=== PATIENT | female | born 1995 | race Caucasian/White ===

== ENCOUNTER 2023-10-18 19:53 | Emergency (ER) | payer BC, SELFPAY ==
[2023-10-18 20:01] VITALS: BP 144/105; PULSE 100; RESP 18; TEMP 36.8; O2SAT 100; BMI 34.4
--- NOTE | 2023-10-18 20:09 | XR_ITS ---
[facility] [place] [id number] Patient Name: REGINALD SMALL MRN: [id number] date: 1995 Sex: F Assigned Patient Location: ER Current Patient Location: ER Accession/Order Number: [id number] Exam Date: 10/18/2023 20:18 Report Date: 10/18/2023 20:50 At the request of: NANO AMADO Procedure: XR ankle RT min 3V EXAM: XR ankle RT min 3V TECHNIQUE: AP, lateral and oblique views right ankle HISTORY: injury COMPARISON: None. FINDINGS: There is a tiny chip fracture off the posterior aspect of the distal tibia on the lateral view only. Abnormal lucency of the lateral aspect of the talar dome suspicious for osteochondral injury. Ankle mortise is aligned. Soft tissue swelling is seen laterally. There are no arthritic changes. XR/XR ankle RT min 3V IMPRESSION: Small chip fracture of the dorsum of the distal tibia, seen only on the lateral view. Probable acute osteochondral injury of the lateral aspect of the talar dome. Electronically authenticated by: ELÍAS MUNIZ Date: 10/18/2023 20:50
--- NOTE | 2023-10-18 21:24 | ED_ITS ---
HPI - Extremity Injury (Lower) General Chief Complaint: Extremity Injury, Lower Stated Complaint: LOWER EXTREMITY INJURY Time Seen by Provider: 10/18/23 20:09 Source: patient Mode of arrival: walk-in Limitations: no limitations History of Present Illness HPI Narrative: Patient is a 28-year-old female who presents to the emergency department for right ankle injury. She states she was playing volleyball when she jumped and landed on another player twisting her right ankle. She complains of most of her pain in the anterior right ankle but though it is diffusely swollen. No concern for . No medications taken prior to arrival. Related Data Home Medications Medication Instructions Recorded Confirmed insulin NPH isoph U-100 human 100 unit subcut 10/18/23 unit/mL subcutaneous suspension (Novolin N NPH U-100 Insulin isophane) metformin 1,000 mg tablet mg 10/18/23 pen needle, diabetic 31 gauge x 10/18/23 10/18/2310/29 (BD Ultra-Fine Mini Pen Needle) Previous Rx's Medication Instructions Recorded hydrocodone 5 mg-acetaminophen 325 1 tab PO Q6H PRN pain 3 days #12 10/18/23 mg tablet tabs ketorolac 10 mg tablet 10 mg PO TID PRN pain #10 tabs 10/18/23 Allergies Allergy/AdvReac Type Severity Reaction Status Date / Time No Known Drug Allergies Allergy Verified 10/18/23 20:05 Review of Systems ROS Constitutional Denies: fever or chills Ears, nose, mouth, and throat Denies: throat pain or nasal congestion Cardiovascular Denies: chest pain Respiratory Denies: shortness of breath or cough Gastrointestinal Denies: nausea or vomiting Musculoskeletal Reports: extremity pain, extremity swelling, joint pain and joint swelling; Denies: back pain or neck pain Integumentary/Breast Denies: rash Neurological Denies: headache Hematologic/Lymphatic Denies: easy bruising or easy bleeding [facility] Social History Smoking status: Never smoker Exam Narrative Exam Narrative: Gen.: Awake, alert, in no distress Head: Normocephalic, atraumatic ENT: Moist mucous membranes Respiratory: No respiratory distress Extremities: Moves extremities equally, Diffuse swelling and tenderness of the right ankle with no bony point tenderness or obvious deformity. 2+ DP pulses bilaterally. Psych: Normal mood and affect Neuro: No focal neuro deficit Skin: Warm, dry, intact Constitutional Vital Signs, click to edit/add: Last Vital Signs Temp 98.2 F 10/18/23 20:01 Pulse 100 H 10/18/23 20:01 Resp 18 10/18/23 20:01 BP 144/105 H 10/18/23 20:01 Pulse Ox 100 10/18/23 20:01 Course Vital Signs Vital signs: Vital Signs Temperature 98.2 F 10/18/23 20:01 Pulse Rate 100 H 10/18/23 20:01 Respiratory Rate 18 10/18/23 20:01 Blood Pressure 144/105 H 10/18/23 20:01 Pulse Oximetry 100 10/18/23 20:01 Temperature 98.2 F 10/18/23 20:01 Pulse Rate 100 H 10/18/23 20:01 Respiratory Rate 18 10/18/23 20:01 Blood Pressure 144/105 H 10/18/23 20:01 Pulse Oximetry 100 10/18/23 20:01 MDM - Extremity Injury (Lower) MDM Narrative Medical decision making narrative: X-rays read by the radiologist with an avulsion fracture noted over the posterior tibia as well as a suspected avulsion of the talus. Patient was placed in an Thomas wrap, Aircast and remains neurovascularly intact. Rest, ice, elevate. Crutches given for home. Short course of analgesics and NSAIDs given, patient encouraged to follow-up with podiatry and return to the ER if symptoms change or worsen Medical Records Attestation: I reviewed the patient's medical records. Imaging Data XR ankle: Attestation: I have reviewed the pertinent imaging results. Radiologist's impression: ITS Impressions Ankle X-Ray 10/18/23 20:09 IMPRESSION: Small chip fracture of the dorsum of the distal tibia, seen only on the lateral view. Probable acute osteochondral injury of the lateral aspect of the talar dome. Electronically authenticated by: ELÍAS MUNIZ Date: 10/18/2023 20:50 Discharge Plan Discharge Chief Complaint: Extremity Injury, Lower Clinical Impression: Avulsion fracture of right ankle Patient Disposition: Home, Self-Care Time of Disposition Decision: 21:20 Condition: Good Prescriptions / Home Meds: New hydrocodone-acetaminophen 5-325 mg tablet 1 tab PO Q6H PRN (Reason: pain) 3 Days Qty: 12 0RF Rx Instructions: DX: M25.571 ketorolac 10 mg tablet 10 mg PO TID PRN (Reason: pain) Qty: 10 0RF No Action metformin 1,000 mg tablet Novolin N NPH U-100 Insulin 100 unit/mL suspension SUBCUT (DME) pen needle, diabetic [BD Ultra-Fine Mini Pen Needle] 31 gauge x 3/16 needle MISCELLANEOUS Instructions: Avulsion Fracture (ED) Referrals: Physician,Non-Staff, [Primary Care Provider] - 1 week Felipe Almonte DPM [Physician] - As soon as possible Discharge Date/Time: 10/18/23 22:14 Stand Alone Forms: Portal Instructions
[2023-10-18] MEDS: OXYCODONE HCL/ACETAMINOPHEN 5MG/325MG 1 TAB PO (21:52)
== END 2023-10-18 22:14 | disposition home or self-care (01) ==
PROVIDERS: Emergency Provider Emergency Medicine
DX: S82.301A Unspecified fracture of lower end of right tibia, initial encounter for closed fracture (principal); X50.1XXA Overexertion from prolonged static or awkward postures, initial encounter; Y93.68 Activity, volleyball (beach) (court); Z79.4 Long term (current) use of insulin; Z79.84 Long term (current) use of oral hypoglycemic drugs
CPT/HCPCS: 73610; 99284

== ENCOUNTER 2024-12-29 06:55 | Outpatient (OUT) | payer BC, SELFPAY ==
--- OUTSIDE RECORDS SUMMARY | 2024-12-29 06:58 | XMS_ITS | CCD ---
Author Organization [facility] Care Team Providers Care Gunnery/Ordnance Officer Name Role Phone Unavailable Primary Care Provider Unavailabl e FLORO, DARÍO Referring Unavailable Floro CNM, Darío L Unavailable Unallocated , Noms Provider Primary Care Provi mart PetAwilda carr DO Unavailable Unallocated , Noms Provider Primary Care Provi mart Floro HAIR OR BEAUTY SALON ASSISTANT-CNM, Darío Primary Care Provider [phone]( [phone] SVETLANA JACK Attending Unavailable FLORO, DARÍO Referring Unavailable SHAUNA DENNY Attending Unavailable Unavailable Primary Care Provider Unavailabl e SVETLANA JACK Attending Unavailable FLORO, DARÍO Referring Unavailable FLORO, DARÍO Primary Care Unavailable SHAUNA DENNY Attending Unavailable ARIELLA ROBERTO Attending Unavailable FLORO, DARÍO Referring Unavailable FLORO, DARÍO Primary Care Unavailable CLARKE MODI Attending Unavailable FLORO, DARÍO Referring Unavailable FLORO, DARÍO Primary Care Unavailable CLARKE MODI Attending Unavailable FLORO, DARÍO Referring Unavailable FLORO, DARÍO Primary Care Unavailable AYE SAUCEDO Attending Unavailable SVETLANA JACK Referring Unavailable FLORO, DARÍO Primary Care Unavailable FLORO, DARÍO Referring Unavailable FLORO, DARÍO Primary Care Unavailable FLORO, DARÍO Referring Unavailable FLORO, DARÍO Primary Care Unavailable TRICIA ROWLAND Attending Unavailable AYE SAUCEDO Referring Unavailable FLORO, DARÍO Primary Care Unavailable FLORO, DARÍO Mccoy Attending Unavailable AWILDA DELATORRE Attending Unavailable FLORO, DARÍO L Attending Unavailable FLORO, DARÍO L Attending Unavailable PETZNICK, AWILDA M Attending Unavailable DARÍO BANUELOS Attending Unavailable DARÍO BANUELOS Attending Unavailable JUAN RAMON, AWILDA M Attending Unavailable AWILDA DELATORRE M Attending Unavailable DARÍO BANUELOS Referring Unavailable DARÍO BANUELOS Attending Unavailable DARÍO BANUELOS Referring Unavailable HENRY SAM Attending Unavailable DARÍO BANUELOS Referring Unavailable DARÍO BANUELOS Attending Unavailable DARÍO BANUELOS Attending Unavailable JUAN RAMON, AWILDA M Attending Unavailable JUAN RAMON, AWILDA M Referring Unavailable Medications Current Medications Medication Drug Class(es) Dates Sig (Normalized) Sig (Original) acetaminophen 500 mg oral tablet (20 sources) take 1 tablet by mouth every six hours as needed acetaminophen (Tylenol) 500 MG tablet Take 500 mg by mouth every 6 (six) hours if needed Active aspirin 81 mg delayed release oral tablet (20 sources) Platelet Aggregation Inhibitor, Nonsteroidal Anti-inflammatory Drug Start: 08-14-2024 take 1 tablet by mouth in the morning aspirin 81 MG EC tablet Take 81 mg by mouth in the morning. 08/14/2024 Active blood-glucose sensor (DEXCOM G7 SENSOR) device (15 sources) Start: 08-14-2024 blood-glucose sensor (DEXCOM G7 SENSOR) device Use to monitor blood glucose 5 each 11 08/14/2024 Active calcium carb/mag/vitamin D3 (CORAL CALCIUM ORAL) (12 sources) End: 09-19-2024 take 1 tablet by mouth in the morning calcium carb/mag/vitamin D3 (CORAL CALCIUM ORAL) Take 1 tablet by mouth in the morning. 09/19/2024 Discontinued take 1 tablet by mouth in the mo rning calcium carb/mag/vitamin D3 (CORAL CALCIUM ORAL) Take 1 tablet by mouth in the morning. Active Continuous Glucose Sensor (Dexcom G7 Sensor) misc (20 sources) Start: 08-14-2024 Continuous Glu cose Sensor (Dexcom G7 Sensor) misc USE DIRECTED to test BLOOD SUGAR change EVERY TEN days 08/14/2024 Active Docosahexaenoate (15 sources) take 1 tablet by mouth once daily docosahexaenoic acid (DHA ORAL) Take 1 tablet by mouth once daily. Active 3 ml insulin isophane, human 100 unt/ml pen injector (20 sources) Start: 10-09-2024 End: 12-07-2024 insulin NPH, Isophane, (HumuLIN N KWIKPEN) 100 UNIT/ML injection 10 units am and 17 units pm 15 mL 3 12/07/2024 Active Start: 09-22-2024 End: 10-09-2024 insulin NPH, Isophane, (Humu REBEKAH N KWIKPEN) 100 UNIT/ML injection 15 units am and 20 units pm 15 mL 3 09/29/2024 10/09/2024 Discontinued (Dose adjustment) Start: 09-01-2024 insulin NPH, I sophane, (HumuLIN N KWIKPEN) 100 UNIT/ML injection 15 units am and 30 units pm 15 mL 3 09/01/2024 Active Start: 09-01-2024 insulin NPH, I sophane, (HumuLIN N KWIKPEN) 100 UNIT/ML injection 15 units am and 30 units pm 15 mL 3 09/01/2024 Active Start: 05-29-2024 End: 09-01-2024 insulin NPH isoph U-100 tiffany n (HumuLIN N KWIKPEN) 100 unit/mL (3 mL) insulin pen Inject 15 Units in the morning and 34 Units in the evening 15 mL 6 08/23/2024 Active Start: 02-28-2024 insulin NPH, I sophane, (NovoLIN N FlexPen) 100 UNIT/ML injection Indications: 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 mellitus without complication, without long-term current use of insulin ([facility]) 15 units in the am and 25 units at night 15 mL 3 02/28/2024 Active End: 08-14-2024 inject 0.15 mL by subcutaneous injection once daily in the morning insulin NPH (HumuLIN N,NovoLIN N) 100 unit/mL injection Inject 0.15 mL (15 Units total) under the skin in the morning and 0.15 mL (15 Units total) in the evening. Inject with meals. 15 Units in the morning and 25 Units in the evening daily . 08/14/2024 Discontinued (Dose adjustment) 3 ml insulin lispro 100 unt/ml pen injector (20 sources) Insulin Analog Start: 12-07-2024 insulin lispro (HumaLOG KWIKPEN) 100 UNIT/ML injection Indications: with type 2 diabetes mellitus in second trimester 1-2 units breakfast, 5-12 units lunch/dinner (max daily 50 units) 15 mL 3 12/07/2024 Active Start: 10-09-2024 End: 12-07-2024 insulin lispro (HumaLOG KWIK PEN) 100 UNIT/ML injection Indications: with type 2 diabetes mellitus in second trimester 5 units small meals and 8 units large meals (max daily 50 units) 15 mL 3 10/09/2024 12/07/2024 Discontinued (Dose adjustment) Start: 09-22-2024 End: 10-09-2024 insulin lispro (HumaLOG KWIK PEN) 100 UNIT/ML injection Indications: with type 2 diabetes mellitus in second trimester 4 units small meals and 6 units large meals (max daily 50 units) 15 mL 3 09/22/2024 10/09/2024 Discontinued (Dose adjustment) insulin lispro ( HumaLOG) 100 unit/mL injection Inject under the skin 3 (three) times a day before meals. As directed Active letrozole 2.5 mg oral tablet (1 source) Aromatase Inhibitor Start: 05-02-2024 End: 05-07-2024 letrozole (Femara) 2.5 MG chemo tablet Indications: Female infertility Take 1 tablet (2.5 mg total) by mouth Daily for 5 days. TAKE 2 TABLETS BY MOUTH on days 3-7 OF menstrual cycle 5 tablet 05/02/2024 05/07/2024 Active magnesium carbonate (15 sources) take 1 tablet by mouth once daily MAGNESIUM CARBONATE ORAL Take 1 tablet by mouth once daily. Active medroxyPROGESTERone acetate 10 mg oral tablet (15 sources) Progestin Start: 05-02-2024 End: 08-23-2024 take 1 tablet by mouth once daily, then take 1 tablet by mouth once daily, then take 1 tablet by mouth once daily medroxyPROGESTERone (Provera) 10 MG tablet Indications: Irregular periods Take 1 tablet (10 mg) by mouth Daily Take 1 tablet by mouth daily for 7 days beginning on day 1 of menstrual cycle. Begin on the first day of bleeding. . 7 tablet 05/02/2024 Active metFORMIN hydrochloride 1000 mg oral tablet (20 sources) Biguanide Start: 02-28-2024 metFORMIN (Glucophage) 1000 MG tablet Indications: 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 mellitus without complication, without long-term current use of insulin 1/2 tablet in the am and 1 tablet in the evening 180 tablet 3 02/28/2024 Active Start: 09-28-2016 End: 09-19-2024 take 2 tablets by mouth once daily metFORMIN XR (GLUCOPHAGE-XR) 500 mg 24 hr tablet Take 2 tablets by mouth daily. 0 09/28/2016 09/19/2024 Discontinued take 0.5 tablet by m outh once daily at breakfast metFORMIN (GLUCOPHAGE) 1000 mg tablet Take 0.5 tablets (500 mg total) by mouth daily with breakfast. 500 mg (1/2 tablet) with breakfast and 1000 mg with supper Active metFORMIN (GLUCO PHAGE) 1000 mg tablet Take by mouth daily with breakfast. 500 mg (1/2 tablet) with breakfast and 1000 mg with supper Active 25/iron fum/folic/dha (-1 ORAL) (12 sources) End: 09-19-2024 take 2 tablets by mouth once daily 25/iron fum/folic/dha (-1 ORAL) Take 2 tablets by mouth once daily. 09/19/2024 Discontinued take 2 tablets by mouth once kiki ly 25/iron fum/folic/dha (-1 ORAL) Take 2 tablets by mouth once daily. Active Completed/Discontinued Medications Medication Drug Class(es) Dates Sig (Normalized) Sig (Original) clotrimazole 10 mg/ml topical cream (3 sources) Azole Antifungal End: 08-23-2024 clotrimazole (LOTRIMIN) 1 % cream Apply 1 application topically 2 (two) times a day. FOR 7-10 DAYS 08/23/2024 Discontinued (Therapy completed) Ethinyl Estradiol / Levonorgestrel (3 sources) Progestin, Estrogen, Progestin-containi ng Intrauterine Device Start: 01-08-2017 End: 08-23-2024 take 1 tablet by mouth once daily LEVORA-28 0.15-0.03 mg per tablet Indications: Dysmenorrhea TAKE 1 TABLET BY MOUTH DAILY 84 tablet 0 01/08/2017 08/23/2024 Discontinued (Therapy completed) Start: 01-08-2017 take 1 tablet by luke th once daily LEVORA-28 0.15-0.03 mg per tablet Indications: Dysmenorrhea TAKE 1 TABLET BY MOUTH DAILY 84 tablet 0 01/08/2017 Active Problems Active Problems Problem Classification Problem Date Documented Date Episodic/Chronic Conduction disorders (20 sources) Long QT syndrome; Translations: [Long QT syndrome] Onset: 12-29-2016 Resolved: 11-09-2024 04-16-2023 Chronic Diabetes mellitus with complications (2 sources) 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 mellitus; Translations: [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 mellitus with hyperosmolarity without nonketotic hyperglycemic-hyperos molar coma (NKHHC)] 08-03-2024 Chronic Diabetes mellitus without complication (20 sources) 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 mellitus without complication; Translations: [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 mellitus without complications] Onset: 04-16-2023 06-01-2024 Chronic Diabetes or abnormal glucose tolerance complicating ; childbirth; or the puerperium (20 sources) Pre-existing type 2 diabetes mellitus in ; Translations: [Pre-existing type 2 diabetes mellitus, in , first trimester] Onset: 08-14-2024 08-14-2024 Chronic Diabetes or abnormal glucose tolerance complicating ; childbirth; or the puerperium (2 sources) Gestational diabetes mellitus, class A>2< ; Translations: [Gestational diabetes mellitus in , insulin controlled] 11-15-2024 Episodic Disorders of lipid metabolism (20 sources) Mixed hyperlipidemia; Translations: [Mixed hyperlipidemia] Onset: 04-16-2023 04-16-2023 Chronic Other complications of (2 sources) Finding related to ; Translations: [ related conditions, unspecified, third trimester] 11-15-2024 Episodic Other endocrine disorders (20 sources) Polycystic ovary syndrome; Translations: [Polycystic ovarian syndrome] Onset: 04-16-2023 04-16-2023 Chronic Other nutritional; endocrine; and metabolic disorders (20 sources) Insulin resistance; Translations: [Insulin resistance] Onset: 04-16-2023 04-16-2023 Chronic Other and delivery including normal (10 sources) First trimester ; Translations: [Encounter for supervision of normal first , first trimester] 08-03-2024 Episodic Other screening for suspected conditions (not mental disorders or infectious disease) (3 sources) Encounter for other screening follow-up; Translations: [Patient encounter status] Onset: 10-31-2024 12-26-2024 Episodic Residual codes; unclassified (2 sources) H/O: heart disorder; Translations: [Personal history of other specified conditions] Onset: 11-09-2024 11-09-2024 Episodic Unclassified (1 source) T2DM Onset: 08-14-2024 Unclassified (1 source) New Patient Onset: 09-19-2024 Past or Other Problems Problem Classification Problem Date Documented Da te Episodic/Chronic Diabetes mellitus without complication (20 sources) Abnormal glucose level; Translations: [Other abnormal glucose] Onset: 12-29-2016 04-16-2023 Episodic Mood disorders (16 sources) Mood disorders Onset: 03-03-2017 03-03-2017 Viral infection (20 sources) Plantar wart of right foot; Translations: [Plantar wart] Onset: 04-16-2023 04-16-2023 Episodic Results Test Name Value Interpretation Reference Range Facility Urinalysis macro (dipstick) panel (U)on 12-25-2024 Bilirubin, UA Negative Negative - 4(70) +++ mg/dL [facility] Blood, UA Negative Negative - 50 Skinny/mcL [facility] Clarity, UA Clear [facility] re Color, UA Yellow [facility] Glucose, UA Negative Negative - 2000(110) ++++ mg/dL [facility] Interpretation and review of laboratory results Normal [facility] Ketones, UA Negative Negative - 160(16) ++++ mg/dL [facility] Leukocytes, UA Positive Negative - 500+++ Cal/mcL [facility] Comment on above: small Nitrite, UA Negative Negative - Positive [facility] pH, UA 6.5 5 - 9 [facility] e Protein, UA Negative Negative - 2000(20) ++++ mg/dL [facility] Spec Grav, UA 1.02 1 - 1.03 [facility] Urobilinogen, UA 1.0 0.2 - 12 mg/dL [facility] US OB FOLLOW UP TRANSABDOMIN AL APPROACHon 12-11-2024 US OB FOLLOW UP TRANSABDOMINAL APPROACH EXAM: US OB FOLLOW UP TRANSABDOMINAL APPROACH HISTORY: Morbid obesity. DAVY 02/19/2025. COMPARISON: U/S OB 10/31/2024, 10/03/2024 TECHNIQUE: Two-dimensional transabdominal grayscale ultrasound imaging of the pelvis was performed. FINDINGS: Gestation: Single Presentation: Cephalic Cardiac Activity: 145 beats per minute Placental Location: Posterior with no sonographic abnormalities identified. Distance from Placental Tip to Cervix: Not measured, appears visually adequate Cervical Length: 5.1 cm Amniotic Fluid Index: 12.6 cm MEASUREMENTS: BPD: 7.9 cm EGA: 31 weeks 4 days HC: 28.0 cm EGA: 30 weeks 4 days AC: 25.8 cm EGA: 29 weeks 6 days FL: 5.8 cm EGA: 30 weeks 3 days HC/AC Ratio: 1.09 (0.99 - 1.21) Gestational age by today's ultrasound is 30 weeks 4 day. Estimated Weight: 1539 grams ( 3 lb 6 oz). Weight Percentile for gestational age: 46 % IMPRESSION: 1. Single, live intrauterine gestation 30 weeks, 0 days by LMP. Today's ultrasound measurements correlate with a gestational age of 30 weeks 4 days. Interpreted by: Electronically signed by YULI MCCARTHY II, MD, PHD at 12-Dec-2024 07:13:14 PM [facility] [place] [facility] Normal Not Available POCT EKGOrdered By: Abby Andino on 11-08-2024 [facility] HbA1c (Bld) [Mass fraction]o n 10-09-2024 Interpretation and review of laboratory results [facility] count[facility] 10-09-2024 HbA1c (Bld) [Mass fraction] 5.7 % [facility] POCT EKGon 09-19-2024 [facility] No Panel Informationon 08-14 [facility] Chlamydia/GC by PCR ThinPrep fluidon 07-11-2024 Chlamydia Dna(Pcr) Negative [facility] Gonorrhoeae Dna(Pcr) Negative [facility] [place] Drug Screen, Urineon 024 Amphetamine/Methamph etamine Negative [facility] Opiate Quantitative Urine Negative [facility] HIV 1&2 AB/AG Screen (P24 AG )on 07-10-2024 HIV 1&2 AB/AG Non-Reactive [facility] Hemoglobin A1con 07-10-2024 HbA1c (Bld) [Mass fraction] 6.4 % Abnormal 4.0 - 6.0 % [facility] Interpretation and review of laboratory results Abnormal [facility] No Panel Informationon 07-10 [facility] Type and screenon 07-10-2024 Abo/Rh(D) Positive [facility] US OB < 14 WEEKS EARLYon US OB < 14 WEEKS EARLY TITLE OF EXAM: OB Ultrasound: REASON FOR EXAM: Viability. TECHNIQUE: Grayscale imaging is performed. Measurements: heart rate: 129 bpm Sac: 2.2 cm CRL: 0.9 cm GA for sonogram: 6.9 wk (06.3-07.4) DAVY: 02/20/2025 Maternal Anatomy Uterus: Size: L x H x W 8.2 x 5.6 x 4.5 cm L x H x W (cm) Vol (cc) Ovaries: Right: 3.6 x 2.2 x 2.1 8.7 Left: 4.1 x 3.0 x 2.8 18.0 CLINICAL SUMMARY: Early intrauterine is seen with positive cardiac activity. heart is observed with a heart rate of 129 BPM. Yolk sac is identified. Dictated and transcribed 07/04/24/dpd This report has been electronically signed and approved by the interpreting radiologist. Normal Not Available HbA1c (Bld) [Mass fraction]o n 06-08-2024 Interpretation and review of laboratory results Normal [facility] [employer] [facility] Laboratory - Hematology and Cell countson 06-08-2024 HbA1c (Bld) [Mass fraction] 6.2 % [facility] Remicalm Cytology Cervical or vaginal smear or scraping studyOrdered By: Christen Nettles on 02-10-2023 [facility] Hemoglobin A1Con 07-05-2019 HbA1c (Bld) [Mass fraction] 5.9 % Normal 4.8-5.9 [facility] Comment on above: Performed By: #### G LYHGB, LIPR #### [facility] [address] [place] [address] Curtain Inspector: Ruslan Fernando MD #### INSU #### [facility] [employer] [address] [place] [id number] Curtain Inspector: Marv Guzman MD [facility] [address] [place] [address] Curtain Inspector: Ruslan Fernando MD HbA1c (Bld) [Mass fraction] 123 mg/dL Normal [facility] Comment on above: Result Comment: The ADA and AACC recommend providing the estimated average glucose result to permit better patient understanding of their HBA1c result. Performed By: #### G LYHGB, LIPR #### [address] [place], [place] [phone] Curtain Inspector: Ruslan Fernando MD #### INSU #### [address] [id number] Curtain Inspector: Marv Guzman MD [address] [place], [place] [phone] Curtain Inspector: Ruslan Fernando MD Glucose [Mass/Vol] 123 mg/dL [place], [place] Comment on above: The ADA and AACC rec ommend providing the estimated average glucose result to permit better patient understanding of their HBA1c result. HbA1c (Bld) [Mass fraction] 5.9 % 4.8 - 5.9 % [place], [place] Insulinon 07-05-2019 Insulin 36.2 mU/L [facility] Comment on above: Performed By: #### G LYHGB, LIPR #### [address] [place], [place] [phone] Curtain Inspector: Ruslan Fernando MD #### INSU #### [address] [id number] Curtain Inspector: Marv Guzman MD [address] [place], [place] [address] Curtain Inspector: Ruslan Fernando MD Reference Range [facility] Comment on above: Result Comment: Fast in.6-24.9 30 min: 20-112 60 min: 29-88 90 min: 26-84 120 min: 22-79 Performed By: #### G LYHGB, LIPR #### [address] [place], [place] [phone] Curtain Inspector: Ruslan Fernando MD #### INSU #### [address] [place] [address] Curtain Inspector: Marv Guzman MD [facility] [address] [place] [address] Curtain Inspector: Ruslan Fernando MD Collection Info. 0830 Normal [facility] Comment on above: Performed By: #### G LYHGB, LIPR #### [facility] [address] [place] [address] Curtain Inspector: Ruslan Fernando MD #### INSU #### [facility] [address] [place] [address] Curtain Inspector: Marv Guzman MD [facility] [address] [place] [address] Curtain Inspector: Ruslan Fernando MD Insulin, totalon 07-05-2019 INR Coag (Bld) [Relative time] [place], [place] Comment on above: Fastin.6-24.9 30 min: 20-112 60 min: 29-88 90 min: 26-84 120 min: 22-79 Insulin 36.2 mU/L [place] Insulin Comment [address] [place], [place] Lipid Panelon 07-05-2019 Cholesterol [Mass/Vol] 204 mg/dL High <200 [place], [place] Comment on above: Cholesterol Guidelines: <200 Desirable 200-240 Borderline >240 Undesirable Cholesterol in HDL [Mass/Vol] 35 mg/dL Low >40 [place] Comment on above: HDL Guidelines: <40 Undesirable 40-59 Borderline >59 Desirable Cholesterol in LDL [Mass/Vol] 102 mg/dL 0 - 130 mg/dL [place] Comment on above: LDL Guidelines: <100 Desirable 100-129 Near to/above Desirable 130-159 Borderline >159 Undesirable Direct (measured) LDL and calculated LDL are not interchangeable tests. Cholesterol in VLDL [Mass/Vol] NOT REPORTED High 1 - 30 mg/dL [place] Cholesterol.total/Ch olesterol in HDL [Mass ratio] 5.8 {ratio} High <5 [place] Interpretation and review of laboratory results Abnormal [place] Triglyceride [Mass/Vol] 336 mg/dL High <150 [place] Comment on above: Triglyceride Guidelines: <150 Desirable 150-199 Borderline 200-499 High >499 Very high Based on AHA Guidelines for fasting triglyceride, May 2012. Lipid Profileon 07-05-2019 Cholesterol [Mass/Vol] 204 mg/dL High <200 [facility] Comment on above: Result Comment: Cholesterol Guidelines: <200 Desirable 200-240 Borderline >240 Undesirable Performed By: #### G LYHGB, LIPR #### [facility] [address] [place] [address] [address] [place], [place] [phone] Curtain Inspector: Ruslan Fernando MD #### INSU #### [facility] [address], [place] [phone] Curtain Inspector: Marv Guzman MD [address] [place], [place] [phone] Curtain Inspector: Ruslan Fernando MD Cholesterol in HDL [Mass/Vol] 35 mg/dL Low >40 [facility] Comment on above: Result Comment: HDL Guidelines: <40 Undesirable 40-59 Borderline >59 Desirable Performed By: #### G LYHGAmanda, LIPR #### [address] [place], [place] [phone] Curtain Inspector: Ruslan Fernando MD #### INSU #### [facility] [address], [place] [phone] Curtain Inspector: Marv Guzman MD [address] [place], [place] [phone] Curtain Inspector: Ruslan Fernando MD Cholesterol in LDL [Mass/Vol] 102 mg/dL Normal 0-130 [facility] Comment on above: Result Comment: LDL Guidelines: <100 Desirable 100-129 Near to/above Desirable 130-159 Borderline >159 Undesirable Direct (measured) LDL and calculated LDL are not interchangeable tests. Performed By: #### G LYHGB, LIPR #### [facility] [address] [place] [address] [place] [address] Curtain Inspector: Ruslan Fernando MD #### INSU #### [facility] [address] [place] [address] Curtain Inspector: Marv Guzman MD [facility] [address] [place] [address] [place] [address] Curtain Inspector: Ruslan Fernando MD Cholesterol.total/Ch olesterol in HDL [Mass ratio] 5.8 {ratio} High <5 [facility] Comment on above: Performed By: #### G LYHGB, LIPR #### [address] [place] [address] Curtain Inspector: Ruslan Fernando MD #### INSU #### [facility] [address] [place] [address] Curtain Inspector: Marv Guzman MD [address] [place] [address] Curtain Inspector: Ruslan Fernando MD Triglyceride [Mass/Vol] 336 mg/dL High <150 [facility] Comment on above: Result Comment: Triglyceride Guidelines: <150 Desirable 150-199 Borderline 200-499 High >499 Very high Based on AHA Guidelines for fasting triglyceride, May 2012. Performed By: #### G LYHGB, LIPR #### [address] [place] [address] Curtain Inspector: Ruslan Fernando MD #### INSU #### [facility] [address] [place] [address] Curtain Inspector: Marv Guzman MD [address] [place] [address] Curtain Inspector: Ruslan Fernando MD Cholesterol in VLDL [Mass/Vol] NOT REPORTED Normal 1-30 [facility] Comment on above: Performed By: #### G LYHGB, LIPR #### [facility] [address] [place] [address] [place] [address] Curtain Inspector: Ruslan Fernando MD #### INSU #### [facility] [address], [place] [phone] Curtain Inspector: Marv Guzman MD [facility] [address] [place] [address] Curtain Inspector: Ruslan Fernando MD Vital Signs Date Time Vital Sign Value Performing Clinician Facility 12-26-2024 16:02-0400 Body mass index (BMI) [Ratio] 34.15 kg/m2 Darío Floro CNM Work Phone: [facility] 12-26-2024 16:02-0400 Body weight 107.96 kg Darío Floro CNM Work Phone: [facility] 12-26-2024 16:02-0400 Diastolic blood pressure 74 mm[Hg] Darío Floro CNM Work Phone: [facility] 12-26-2024 16:02-0400 Systolic blood pressure 116 mm[Hg] Darío Floro CNM Work Phone: [facility] 12-11-2024 15:56-0400 Diastolic blood pressure 70 mm[Hg] Darío Floro CNM Work Phone: [facility] 12-11-2024 15:56-0400 Systolic blood pressure 120 mm[Hg] Darío Floro CNM Work Phone: [facility] 12-07-2024 08:17-0400 Body height 177.8 cm Awilda Petznick DO Work Phone: [facility] 12-07-2024 08:17-0400 Body temperature 97.9 [degF] Awilda Petznick DO Work Phone: [facility] 12-07-2024 08:17-0400 Diastolic blood pressure 66 mm[Hg] Awilda Petznick DO Work Phone: [facility] 12-07-2024 08:17-0400 Heart rate 86 /min Awilda Petznick DO Work Phone: [facility] 12-07-2024 08:17-0400 SaO2% (BldA) [Mass fraction] 98 % Awilda Delatorre DO Work Phone: [facility] 12-07-2024 08:17-0400 Systolic blood pressure 126 mm[Hg] Awilda Delatorre DO Work Phone: [facility] 11-15-2024 16:31-0400 Body mass index (BMI) [Ratio] 34.44 kg/m2 Darío Banuelos CNM Work Phone: [facility] 11-15-2024 16:31-0400 Body weight 108.86 kg Darío Banuelos CNM Work Phone: [facility] 11-15-2024 16:31-0400 Diastolic blood pressure 78 mm[Hg] Darío Banuelos CNM Work Phone: [facility] 11-15-2024 16:31-0400 Systolic blood pressure 120 mm[Hg] Darío Banuelos CNM Work Phone: [facility] 11-08-2024 09:17-0400 Body height 177.8 cm Tricia Rowland MD Work Phone: [facility] 11-08-2024 09:17-0400 Body mass index (BMI) [Ratio] 34.06 kg/m2 Tricia Rowland MD Work Phone: [facility] 11-08-2024 09:17-0400 Body weight 107.68 kg Tricia Rowland MD Work Phone: [facility] 11-08-2024 09:17-0400 Diastolic blood pressure 64 mm[Hg] Tricia Rowland MD Work Phone: [facility] 11-08-2024 09:17-0400 Heart rate 80 /min Tricia Rowland MD Work Phone: [facility] 11-08-2024 09:17-0400 SaO2% (BldA) [Mass fraction] 98 % Tricia Rowland MD Work Phone: [facility] 11-08-2024 09:17-0400 Systolic blood pressure 128 mm[Hg] Tricia Rowland MD Work Phone: [facility] 10-09-2024 15:40-0500 Body height 177.8 cm Awilda Petznick DO Work Phone: [facility] 10-09-2024 15:40-0500 Body mass index (BMI) [Ratio] 34.01 kg/m2 Awilda Petznick DO Work Phone: [facility] 10-09-2024 15:40-0500 Body temperature 98.2 [degF] Awilda Petznick DO Work Phone: [facility] 10-09-2024 15:40-0500 Body weight 107.5 kg Awilda Petznick DO Work Phone: [facility] 10-09-2024 15:40-0500 Diastolic blood pressure 66 mm[Hg] Awilda Petznick DO Work Phone: [facility] 10-09-2024 15:40-0500 Heart rate 98 /min Awilda Petznick DO Work Phone: [facility] 10-09-2024 15:40-0500 SaO2% (BldA) [Mass fraction] 98 % Awilda Petznick DO Work Phone: [facility] 10-09-2024 15:40-0500 Systolic blood pressure 128 mm[Hg] Awilda Petznick DO Work Phone: [facility] 09-28-2024 16:17-0500 Body mass index (BMI) [Ratio] 34.58 kg/m2 Darío Díazo CNM Work Phone: [facility] 09-28-2024 16:17-0500 Body weight 109.32 kg Darío Díazo CNM Work Phone: [facility] 09-28-2024 16:17-0500 Diastolic blood pressure 70 mm[Hg] Darío Sheebao CNM Work Phone: [facility] 09-28-2024 16:17-0500 Systolic blood pressure 120 mm[Hg] Darío Banuelos CNM Work Phone: [facility] 09-19-2024 10:31-0500 Body height 177.8 cm Aye Saucedo MD Work Phone: [facility] 09-19-2024 10:31-0500 Body mass index (BMI) [Ratio] 34.15 kg/m2 Aye Saucedo MD Work Phone: [facility] 09-19-2024 10:31-0500 Body weight 107.96 kg Aye Saucedo MD Work Phone: [facility] 09-19-2024 10:31-0500 Diastolic blood pressure 76 mm[Hg] Aye Saucedo MD Work Phone: [facility] 09-19-2024 10:31-0500 Heart rate 85 /min Aye Saucedo MD Work Phone: [facility] 09-19-2024 10:31-0500 SaO2% (BldA) [Mass fraction] 98 % Aye Saucedo MD Work Phone: [facility] 09-19-2024 10:31-0500 Systolic blood pressure 122 mm[Hg] Aye Saucedo MD Work Phone: [facility] 09-11-2024 08:12-0500 Body mass index (BMI) [Ratio] 34.29 kg/m2 Clarke Modi MD Work Phone: [facility] 09-11-2024 08:12-0500 Body weight 108.41 kg Clarke Modi MD Work Phone: [facility] 09-11-2024 08:12-0500 Diastolic blood pressure 81 mm[Hg] Clarke Modi MD Work Phone: [facility] 09-11-2024 08:12-0500 Heart rate 80 /min Clarke Modi MD Work Phone: [facility] 09-11-2024 08:12-0500 Systolic blood pressure 122 mm[Hg] Clarke Modi MD Work Phone: [facility] 09-01-2024 08:54-0500 Body height 177.8 cm Awilda Petznick DO Work Phone: [facility] 09-01-2024 08:54-0500 Body mass index (BMI) [Ratio] 34.44 kg/m2 Awilda Petznick DO Work Phone: [facility] 09-01-2024 08:54-0500 Body temperature 98.49 [degF] Awilda Petznick DO Work Phone: [facility] 09-01-2024 08:54-0500 Body weight 108.86 kg Awilda Petznick DO Work Phone: [facility] 09-01-2024 08:54-0500 Diastolic blood pressure 72 mm[Hg] Awilda Petznick DO Work Phone: [facility] 09-01-2024 08:54-0500 Heart rate 92 /min Awilda Petznick DO Work Phone: [facility] 09-01-2024 08:54-0500 SaO2% (BldA) [Mass fraction] 97 % Awilda Petznick DO Work Phone: [facility] 09-01-2024 08:54-0500 Systolic blood pressure 126 mm[Hg] Awilda Petznick DO Work Phone: [facility] 08-14-2024 10:40-0500 Body height 177.8 cm Svetlana Lavoy PA-C Work Phone: [facility] 08-14-2024 10:40-0500 Body mass index (BMI) [Ratio] 34.72 kg/m2 Svetlana Lavoy PA-C Work Phone: [facility] 08-14-2024 10:40-0500 Body weight 109.77 kg Svetlana Lavoy PA-C Work Phone: [facility] 08-14-2024 10:40-0500 Diastolic blood pressure 68 mm[Hg] Svetlana Lavoy PA-C Work Phone: [facility] 08-14-2024 10:40-0500 Heart rate 86 /min Svetlana Lavoy PA-C Work Phone: [facility] 08-14-2024 10:40-0500 Systolic blood pressure 134 mm[Hg] Svetlana Lavoy PA-C Work Phone: [facility] 08-14-2024 09:42-0500 Body height 177.8 cm Shauna Denny RN Work Phone: [facility] 08-14-2024 09:41-0500 Body mass index (BMI) [Ratio] 34.72 kg/m2 Shauna Denny RN Work Phone: [facility] 08-14-2024 09:41-0500 Body weight 109.77 kg Shauna Denny RN Work Phone: [facility] 08-03-2024 08:36-0500 Body mass index (BMI) [Ratio] 35.3 kg/m2 Darío Floro CNM Work Phone: [facility] 08-03-2024 08:36-0500 Body weight 111.58 kg Darío Floro CNM Work Phone: [facility] 08-03-2024 08:36-0500 Diastolic blood pressure 80 mm[Hg] Darío Floro CNM Work Phone: [facility] 08-03-2024 08:36-0500 Systolic blood pressure 122 mm[Hg] Darío Floro CNM Work Phone: [facility] 07-10-2024 15:43-0500 Body mass index (BMI) [Ratio] 35.3 kg/m2 Darío Floro CNM Work Phone: [facility] 07-10-2024 15:43-0500 Body weight 111.58 kg Darío Floro CNM Work Phone: [facility] 07-10-2024 15:43-0500 Diastolic blood pressure 76 mm[Hg] Darío Banuelos CNM Work Phone: [facility] 07-10-2024 15:43-0500 Systolic blood pressure 120 mm[Hg] Darío Banuelos CNM Work Phone: [facility] 06-08-2024 14:04-0400 Body height 177.8 cm Awilda Petznick DO Work Phone: [facility] 06-08-2024 14:04-0400 Body mass index (BMI) [Ratio] 35.01 kg/m2 Awilda Petznick DO Work Phone: [facility] 06-08-2024 14:04-0400 Body temperature 98.49 [degF] Awilda Petznick DO Work Phone: [facility] 06-08-2024 14:04-0400 Body weight 110.68 kg Awilda Petznick DO Work Phone: [facility] 06-08-2024 14:04-0400 Diastolic blood pressure 72 mm[Hg] Awilda Petznick DO Work Phone: [facility] 06-08-2024 14:04-0400 Heart rate 87 /min Awilda Petznick DO Work Phone: [facility] 06-08-2024 14:04-0400 SaO2% (BldA) [Mass fraction] 98 % Awilda Petznick DO Work Phone: [facility] 06-08-2024 14:04-0400 Systolic blood pressure 138 mm[Hg] Awilda Petznick DO Work Phone: [facility] Healthcare Encounters Encounter Date Encounter Type Care Provider Facility Start: 12-26-2024 ambulatory DARÍO Gonzalez ilfidel Start: 12-26-2024 End: 12-26-2024 Subsequent care visit Darío Banuelos CNM Work Phone: [facility] Comment on above: with type 2 diabetes mellitus in third trimester (Primary Dx); Screening for iron deficiency anemia; 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 mellitus treated with insulin ([facility] Start: 12-26-2024 End: 12-26-2024 Bamboo flowsheet Darío Nadine Díazo CNM Work Phone: [facility] Start: 12-26-2024 End: 12-26-2024 Bamboo flowsheet Darío L Floro CNM Work Phone: [facility] Start: 12-25-2024 End: 12-25-2024 Bamboo flowsheet Henry Flaco DO Work Phone: [facility] Start: 12-25-2024 End: 12-25-2024 Bamboo flowsheet Henry Flaco DO Work Phone: [facility] Start: 12-25-2024 End: 12-25-2024 ambulatory HENRY FLACO Not Available Start: 12-25-2024 End: 12-25-2024 flow sheet Henry Flaco DO Work Phone: [facility] Comment on above: with type 2 diabetes mellitus in third trimester Start: 12-11-2024 End: 12-11-2024 Subsequent care visit Darío Díazo CNM Work Phone: [facility] Comment on above: with type 2 diabetes mellitus in third trimester Start: 12-11-2024 End: 12-11-2024 ambulatory DARÍO L FLORO Not Available Start: 12-11-2024 End: 12-11-2024 Bamboo flowsheet Darío L Floro CNM Work Phone: [facility] Start: 12-11-2024 End: 12-11-2024 Bamboo flowsheet Darío L Floro CNM Work Phone: [facility] Start: 12-07-2024 End: 12-07-2024 Office outpatient visit 15 minutes Awilda Delatorre DO Work Phone: [facility] Comment on above: with type 2 diabetes mellitus in third trimester (Primary Dx); with type 2 diabetes mellitus in second trimester Start: 12-07-2024 End: 12-07-2024 ambulatory AWILDA Guy JUAN RAMON Not Available Start: 11-15-2024 End: 11-15-2024 Subsequent care visit Darío L Floro CNM Work Phone: [facility] Comment on above: Encounter for prenat al care of first , second trimester (Primary Dx); related condition in third trimester; Gestational diabetes mellitus (GDM) requiring insulin Start: 11-15-2024 End: 11-15-2024 ambulatory DARÍO L FLORO Not Available Start: 11-15-2024 End: 11-15-2024 Bamboo flowsheet Darío L Floro CNM Work Phone: [facility] Start: 11-15-2024 End: 11-15-2024 Bamboo flowsheet Darío L Floro CNM Work Phone: [facility] Start: 11-08-2024 End: 11-08-2024 Office outpatient new 30 minutes Aye Saucedo MD Work Phone: [facility] Comment on above: Long Q-T syndrome (P rimary Dx); Hx of prolonged Q-T interval on ECG Start: 11-08-2024 End: 11-08-2024 ambulatory [facility] Start: 11-07-2024 End: 11-07-2024 Telephone encounter [facility] Start: 10-31-2024 End: 10-31-[address] [facility] Start: 10-18-2024 End: 10-18-2024 ambulatory DARÍO L FLORO Not Available Start: 10-18-2024 End: 10-18-2024 Bamboo flowsheet Darío L Floro CNM Work Phone: [facility] Start: 10-18-2024 End: 10-18-2024 Bamboo flowsheet Darío L Floro CNM Work Phone: [facility] Start: 10-10-2024 End: 10-10-2024 Office outpatient visit 25 minutes Clarke Modi MD Work Phone: [facility] Comment on above: Pre-existing type 2 diabetes mellitus during in second trimester (Primary Dx) Start: 10-10-2024 End: 10-10-2024 [facility] Start: 10-09-2024 End: 10-09-2024 Office outpatient visit 15 minutes Awilda M Juan Ramon DO Work Phone: [phone] Comment on above: with type 2 diabetes mellitus in second trimester (Primary Dx); 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 mellitus without complication, without long-term current use of insulin ([facility] Start: 10-09-2024 End: 10-09-2024 ambulatory AWILDA DELATORRE Not Available Start: 10-03-2024 End: 10-03-2024 ambulatory [facility] Start: 09-28-2024 End: 09-28-2024 Subsequent care visit Darío Banuelos CNM Work Phone: [facility] Comment on above: Encounter for prenat al care of first , second trimester (Primary Dx); 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 mellitus without complication, without long-term current use of insulin ([facility] Start: 09-28-2024 End: 09-28-2024 ambulatory DARÍO Nadine DÍAZO Not Available Start: 09-28-2024 End: 09-28-2024 Bamboo flowsheet Darío L Sheebao CNM Work Phone: [facility] Start: 09-28-2024 End: 09-28-2024 Bamboo flowsheet Darío L Floro CNM Work Phone: [facility] Start: 09-19-2024 End: 09-19-2024 Office consultation new/estab patient 40 min Jacque Schneider MD Work Phone: [facility] Comment on above: Long Q-T syndrome (P rimary Dx); 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 mellitus without complication, unspecified whether terminal manager insulin use ([facility] Start: 09-19-2024 End: 09-19-[address] [facility] Start: 09-18-2024 End: 09-18-2024 Telephone encounter Abby Andino CMA [facility] Start: 09-14-2024 End: 09-14-2024 Chart abstracting Jacque Schneider MD Work Phone: [facility] Start: 09-11-2024 End: 09-11-2024 Telephone encounter Yudelka Randall RN [facility] Start: 09-11-2024 End: 09-11-2024 Office outpatient visit 25 minutes Clarke Modi MD Work Phone: [facility] Comment on above: Pre-existing type 2 diabetes mellitus during in second trimester (Primary Dx); Long Q-T syndrome Start: 09-11-2024 End: 09-11-2024 ambulatory [facility] Start: 09-05-2024 End: 09-05-2024 Telephone encounter Sparkle Castillo RN [facility] Start: 09-01-2024 End: 09-01-2024 Office outpatient visit 25 minutes Awilda Delatorre DO Work Phone: [facility] [phone] Comment on above: with type 2 diabetes mellitus in second trimester (Primary Dx) Start: 09-01-2024 End: 09-01-2024 ambulatory AWILDA DELATORRE Not Available Start: 08-28-2024 End: 08-28-2024 Telephone encounter Donna Posadas RN [facility] Start: 08-23-2024 End: 08-23-2024 Office outpatient visit 25 minutes Ariella PIERRE Work Phone: [facility] Comment on above: 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 guerrero itus without complication, unspecified whether shelter insulin use ([facility] (Primary Dx) Start: 08-23-2024 End: 08-23-2024 ambulatory ARIELLA ROBERTO [facility] Start: 08-14-2024 End: 08-14-2024 Office outpatient new 45 minutes Svetlana Jack PA-C Work Phone: [facility] Comment on above: with type 2 diabetes mellitus in second trimester (Primary Dx); Long Q-T syndrome Start: 08-14-2024 End: 08-14-2024 ambulatory Shauna Denny RN Work Phone: [facility] Comment on above: Pre-existing type 2 diabetes mellitus in in first trimester with type 2 diabetes mellitus in second trimester (Primary Dx) Start: 08-03-2024 End: 08-03-2024 Bamboo flowsheet Darío L Floro CNM Work Phone: [facility] Start: 08-03-2024 End: 08-03-2024 Bamboo flowsheet Darío L Floro CNM Work Phone: [facility] Start: 08-03-2024 End: 08-03-2024 Subsequent care visit Darío L Floro CNM Work Phone: [facility] Comment on above: Encounter for prenat al care of first , first trimester (Primary Dx); 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 mellitus with hyperosmolarity without coma, without long-term current use of insulin ([facility] Start: 08-03-2024 End: 08-03-2024 ambulatory DARÍO L FLORO Not Available Start: 07-25-2024 End: 07-25-2024 Chart abstracting Scanning Provider External [facility] Start: 07-10-2024 End: 07-10-2024 Subsequent care visit Darío L Floro CNM Work Phone: [facility] Comment on above: Encounter for prenat al care of first , first trimester (Primary Dx) Start: 07-10-2024 End: 07-10-2024 ambulatory DARÍO L FLORO Not Available Start: 07-10-2024 End: 07-10-2024 Bamboo flowsheet Darío Banuelos CNM Work Phone: [facility] Start: 07-10-2024 End: 07-10-2024 Bamboo flowsheet Darío Banuelos CNM Work Phone: [facility] Start: 07-03-2024 End: 07-03-2024 ambulatory DARÍO BANUELOS Not Available Start: 06-08-2024 End: 06-08-2024 Office outpatient visit 15 minutes Awilda Delatorre DO Work Phone: [facility] Comment on above: 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 guerrero itus without complication, without long- term current use of insulin ([facility] Start: 06-08-2024 End: 06-08-2024 ambulatory AWILDA DELATORRE Not Available Start: 05-03-2024 End: 05-03-2024 Telephone encounter Darío Banuelos CNM Work Phone: [facility] Start: 02-28-2024 End: 02-28-2024 ambulatory AWILDA DELATORRE Not Available Start: 01-04-2024 End: 01-04-2024 ambulatory DARÍO BANUELOS Not Available Start: 07-05-2019 End: 07-06-2019 Patient encounter procedure [facility] Start: 07-05-2019 End: 07-05-2019 Subsequent hospital visit by physician DERRICK Laboratory Procedures Date Procedure Procedure Detail Performing Clinician Start: 12-25-2024 Urnls dip stick/tabl et rgnt non-auto w/o micrscp Henry Flaco DO Work Phone: Start: 11-08-2024 Ecg routine ecg w/le ast 12 lds w/i&r Tricia Rowland MD Work Phone: Start: 10-09-2024 Hemoglobin glycosyla carola a1c Awilda Delatorre DO Work Phone: Start: 09-19-2024 Ecg routine ecg w/le ast 12 lds w/i&r Aye Saucedo MD Work Phone: Start: 08-14-2024 AMB REFERRAL TO [facility] - DIABETES EDUCATION Darío Banuelos HAIR OR BEAUTY SALON ASSISTANT-CN Work Phone: Start: 08-14-2024 AMB REFERRAL TO [facility] - NUTRITION EDUCATION Darío Banuelos HAIR OR BEAUTY SALON ASSISTANT-CN Work Phone: Start: 07-11-2024 CHLAMYDIA/GC BY PCR THINPREP FLUID Not In System Ref Prov Start: 07-11-2024 Drug scrn 1+ class nonchromo Not In System Ref Prov Start: 07-10-2024 Antibody screen Scannin g External Start: 07-10-2024 Hemoglobin glycosyla carola a1c Scanning Provider External Start: 07-10-2024 HIV 1&2 AB/AG SCREEN (P24 AG) Not In System Ref Prov Start: 07-10-2024 TYPE AND SCREEN Not In System Ref Prov Start: 06-08-2024 Hemoglobin glycosyla carola a1c Awilda Delatorre DO Work Phone: Start: 02-10-2023 Cytp cerv/vag auto t hin layer prep mnl screen Darío Banuelos CNM Work Phone: Start: 07-05-2019 Assay of insulin total DARÍO DÍAZO Start: 07-05-2019 Hemoglobin glycosyla carola a1c DARÍO DÍAZO Start: 07-05-2019 Lipid panel DARÍO FL SHAYNE Start: 07-05-2019 Assay of insulin total Darío Banuelos Work Phone: Start: 07-05-2019 Hemoglobin glycosyla carola a1c Darío Díazo Work Phone: Start: 07-05-2019 Lipid panel Darío Fl shayne Work Phone: Plan of Treatment Date Care Activity Detail Author Start: 11-08-2025 Adult BMI Screening Adult BMI Screen ing [facility] Start: 11-08-2025 Tobacco Screening Tobacco Screening [facility] Start: 09-19-2025 Adult BMI Screening Adult BMI Screen ing [facility] Start: 09-19-2025 Tobacco Screening Tobacco Screening [facility] Start: 09-11-2025 Adult BMI Screening Adult BMI Screen ing [facility] Start: 09-11-2025 Tobacco Screening Tobacco Screening [facility] Start: 08-30-2025 Urine screening for protein Diabetes: Urine Protein Screening [facility] Start: 08-14-2025 Adult BMI Screening Adult BMI Screen ing [facility] Start: 08-14-2025 Tobacco Screening Tobacco Screening [facility] Start: 08-14-2025 End: 08-14-2025 US MFM with or without consult US MFM with or without consult Imaging Routine with type 2 diabetes mellitus in second trimester Expected: 08/14/2025 (Approximate), Expires: 08/14/2025 [facility] Work Phone: Comment on above: Expected: 08/14/2025 (Approximate), Expires: 08/14/2025 Start: 04-16-2025 Influenza vaccination Influenz a Vaccine (Season Ended) [facility] Start: 02-15-2025 End: 02-15-2025 Professional / ancillary services management 02/15/2025 4:00 PM EDT Ancillary Procedure [facility] [address] [id number] [facility] Start: 02-13-2025 End: 02-13-2025 Patient encounter procedure 02/13/2025 4:00 PM EDT Routine [facility] [address] [place] [phone] Darío Banuelos CNM [address] [place] [address] [facility] Start: 02-12-2025 End: 02-12-2025 Patient encounter procedure 02/12/2025 4:30 PM EDT Routine [facility] [address] [place] [address] Darío Banuelos, CNM [address] [place] [address] [facility] Start: 02-09-2025 End: 02-09-2025 Professional / ancillary services management 02/09/2025 4:00 PM EDT Ancillary Procedure [facility] [address] [facility] [address] [place] [address] [facility] Start: 02-06-2025 End: 02-06-2025 Patient encounter procedure [facility] Start: 02-02-2025 End: 02-02-2025 Professional / ancillary services management 02/02/2025 4:00 PM EDT Ancillary Procedure [facility] [address] [facility] [address] [place] [address] [facility] Start: 01-30-2025 End: 01-30-2025 Patient encounter procedure 01/30/2025 4:00 PM EDT Routine [facility] [address] [facility] [place] [address] Darío Banuelos, CNM [address] [place] [address] [facility] Start: 01-29-2025 End: 01-29-2025 Patient encounter procedure 01/29/2025 4:30 PM EDT Routine [facility] [address] [facility] [place] [address] Darío Banuelos, CNM [address] [place] [address] [facility] Start: 01-26-2025 End: 01-26-2025 Professional / ancillary services management 01/26/2025 4:00 PM EDT Ancillary Procedure [facility] [address] [facility] [address] [place] [address] [facility] Start: 01-23-2025 End: 01-23-2025 Patient encounter procedure 01/23/2025 4:00 PM EDT Routine [facility] [address] [facility] [place] [address] Darío Banuelos, CNM [address] [place] [address] [facility] Start: 01-22-2025 End: 01-22-2025 Patient encounter procedure 01/22/2025 4:30 PM EDT Routine [facility] [address] [facility] [place] [phone] Darío Banuelos, CNM [address] [place] [address] [facility] Start: 01-19-2025 End: 01-19-2025 Professional / ancillary services management 01/19/2025 9:15 AM EDT Ancillary Procedure [facility] [address] [place] [address] [facility] Start: 01-18-2025 End: 01-18-2025 Patient encounter procedure 01/18/2025 8:30 AM EDT Office Visit [facility] [address] [place] [address] Awilda Delatorre, [address] [place] [address] [facility] Start: 01-16-2025 End: 01-16-2025 Patient encounter procedure 01/16/2025 4:00 PM EDT Routine [facility] [address] [facility] [place] [phone] Darío Banuelos, CNM [address] [place] [address] [facility] Start: 01-15-2025 End: 01-15-2025 Patient encounter procedure 01/15/2025 4:30 PM EDT Routine [facility] [address] [facility] [place] [phone] Darío Banuelos, CATHIEM [address] [place] [address] [facility] Start: 01-12-2025 End: 01-12-2025 Professional / ancillary services management 01/12/2025 4:00 PM EDT Ancillary Procedure [facility] [address] [facility] [address] [place] [address] [facility] Start: 01-09-2025 End: 01-09-2025 Patient encounter procedure 01/09/2025 4:00 PM EDT Routine [facility] OB [address] [facility] [place] [address] Darío Banuelos, CATHIEM [address] [place] [address] [facility] Start: 01-06-2025 Hemoglobin A1c measurement Diabetes: Hemoglobin A1C [facility] Start: 01-05-2025 End: 01-05-2025 Professional / ancillary services management 01/05/2025 9:15 AM EDT Ancillary Procedure [facility] [address] [place] [phone] [facility] Start: 01-03-2025 Urine screening for protein Diabetes: Urine Protein Screening [facility] Start: 01-02-2025 End: 01-02-2025 Patient encounter procedure 01/02/2025 4:00 PM EDT Routine [facility] [address] [facility] [place] [address] Darío Banuelos, CNM [address] [place] [address] [facility] Start: 01-01-2025 End: 01-01-2025 Patient encounter procedure 01/01/2025 4:30 PM EDT Routine [facility] [address] [facility] [place] [address] Darío Banuelos, CATHIEM [address] [place] [address] [facility] Start: 12-29-2024 End: 12-29-2024 Professional / ancillary services management 12/29/2024 4:00 PM EDT Ancillary Procedure [facility] [address] [phone] [facility] Start: 12-26-2024 End: 12-26-2024 Patient encounter procedure 12/26/2024 4:00 PM EDT Routine [facility] [address] [place] [phone] Darío Banuelos, CNM [address] [place], [place] [phone] [facility] Start: 12-26-2024 End: 12-26-2025 CBC panel - Blood by Automated count CBC Lab Routine Screening for iron deficiency anemia Expected: 12/26/2024 (Approximate), Expires: 12/26/2025 [facility] Work Phone: Comment on above: Expected: 12/26/2024 (Approximate), Expires: 12/26/2025 Start: 12-25-2024 End: 06-27-2025 US biophysical profile w non stress test US biophysical profile w non stress test Imaging Routine with type 2 diabetes mellitus in third trimester Expected: 12/25/2024 (Approximate), Expires: 06/27/2025 [facility] Work Phone: Comment on above: Expected: 12/25/2024 (Approximate), Expires: 06/27/2025 Start: 12-11-2024 End: 12-11-2024 Professional / ancillary services management 12/11/2024 4:30 PM EDT Ancillary Procedure [facility] [address] [phone] [facility] Start: 12-11-2024 End: 12-11-2024 Patient encounter procedure [facility] Comment on above: Arrived Start: 12-11-2024 End: 12-11-2025 US biophysical profile wo non stress testing US biophysical profile wo non stress testing Imaging Routine with type 2 diabetes mellitus in third trimester Expected: 12/11/2024, Expires: 12/11/2025 [facility] Work Phone: Comment on above: Expected: 12/11/2024 , Expires: 12/11/2025 Start: 12-11-2024 End: 12-11-2025 US for US OB follow up transabdominal approach Imaging Routine with type 2 diabetes mellitus in third trimester Expected: 12/11/2024, Expires: 12/11/2025 [facility] Comment on above: Expected: 12/11/2024 , Expires: 12/11/2025 Start: 12-07-2024 End: 12-07-2024 Patient encounter procedure 12/07/2024 8:15 AM EDT Office Visit [facility] [address] [place] [address] Awilda Delatorre DO [address] [place] [address] [facility] 230 Start: 11-15-2024 End: 11-15-2024 Patient encounter procedure 11/15/2024 4:30 PM EDT Routine [facility] [address] [place] [phone] Darío Banuelos, CATHIEM [address] [place] [address] Arrived [facility] Comment on above: Arrived Start: 11-15-2024 End: 11-15-2025 US for US OB follow up transabdominal approach Imaging Routine related condition in third trimester Expected: 11/15/2024, Expires: 11/15/2025 [facility] Work Phone: Comment on above: Expected: 11/15/2024 , Expires: 11/15/2025 Start: 11-08-2024 End: 11-08-2024 Patient encounter procedure 11/08/2024 9:30 AM EDT Office Visit [facility] [address] [place] [address] Aye Saucedo MD [address] [place] [address] Tricia Rowland MD [address] [place] [address] [facility] Start: 10-31-2024 End: 10-31-2024 Patient encounter procedure 10/31/2024 8:00 AM EDT Appointment [facility] [address] [place] [address] [facility] Start: 10-18-2024 End: 10-18-2024 Patient encounter procedure [facility] Comment on above: Arrived Start: 10-10-2024 Hemoglobin A1c measurement Diabetes: Hemoglobin A1C [facility] Start: 10-10-2024 End: 10-10-2024 Telemedicine consultation with patient 10/10/2024 11:30 AM EST Telemedicine [facility]- [facility] at [facility] [address] [place] [address] Clarke Modi MD [address] [place] [address] [facility] Start: 10-09-2024 End: 10-09-2024 Patient encounter procedure 10/09/2024 3:45 PM EST Office Visit [facility] [address] [place] [phone] Awilda Delatorre DO [address] [place] [address] [facility] 230 Start: 10-03-2024 End: 10-03-2024 Patient encounter procedure 10/03/2024 10:00 AM EST Appointment [facility]ound [address] [place] [address] [facility] Start: 09-28-2024 End: 09-28-2024 Patient encounter procedure [facility] Comment on above: Arrived Start: 09-25-2024 End: 09-25-2024 Patient encounter procedure 09/25/2024 8:30 AM EST Appointment [facility] [address] [place] [phone] [facility] Start: 09-19-2024 End: 09-19-2024 Patient encounter procedure 09/19/2024 8:15 AM EST Office Visit [facility] [address] [phone] Jacque Schneider MD [address] [place] [address] [facility] Start: 09-11-2024 End: 09-11-2024 Patient encounter procedure 09/11/2024 8:00 AM EST Office Visit [facility] at [facility] [address] [facility] [place] [phone] Clarke Modi MD [address] [place] [address] [facility] Start: 09-08-2024 Hemoglobin A1c measurement Diabetes: Hemoglobin A1C [facility] Start: 08-30-2024 End: 08-30-2024 Patient encounter procedure 08/30/2024 4:30 PM EST Office Visit [facility] [address] [place] [phone] Darío Banuelos, CATHIEM [address] [place] [address] [facility] Start: 08-23-2024 End: 08-23-2024 Telemedicine consultation with patient 08/23/2024 2:00 PM EST Telemedicine [facility]- [facility] at [facility] [address] [facility] [place] [address] Ariella Roberto, HAIR OR BEAUTY SALON ASSISTANT-FOWL BLOOD TESTER [address] [facility] [place] [address] [facility] Start: 08-14-2024 End: 11-12-2024 Protein creat ratio Protein creat ratio Lab Routine with type 2 diabetes mellitus in second trimester Expected: 08/14/2024 (Approximate), Expires: 11/12/2024 [facility] Comment on above: Expected: 08/14/2024 (Approximate), Expires: 11/12/2024 Start: 08-14-2024 End: 08-14-2024 Patient encounter procedure 08/14/2024 11:00 AM EST Office Visit [facility] at [facility] [address] [facility] [place] [address] Svetlana Jack PA-C [address] [facility] [address] [place] [address] [facility] Start: 08-14-2024 End: 08-14-2024 ambulatory 08/14/2024 8:30 AM EST Support Visit [facility] at [facility] [address] [facility] [place] [address] Shauna Denny RN [address] [facility] [address], [address] [place] [address], [place] [address] Maribell Amin, RD [address] [facility] [place], [address] [place] [address], [place] [address] [facility] Start: 08-03-2024 End: 08-03-2024 Patient encounter procedure 08/03/2024 8:30 AM EST Routine [facility] [address] [facility] [place] [phone] Darío Banuelos, CNM [address] [place] [address] Arrived [facility] Comment on above: Arrived Start: 07-10-2024 End: 07-10-2024 Patient encounter procedure 07/10/2024 3:45 PM EST Routine [facility] [address] [place] [phone] Darío Banuelos, CN [address] [place] [address] Arrived [facility] Comment on above: Arrived Start: 05-30-2024 Hemoglobin A1c measurement Diabetes: Hemoglobin A1C [facility] Start: 05-30-2024 End: 05-30-2024 Patient encounter procedure 05/30/2024 8:45 AM EDT Office Visit [facility] [address] [facility] [address] [place] [phone] Awilda Delatorre DO [address] [place] [address] [facility] 230 Start: 04-16-2024 Influenza vaccination N [facility] Start: 09-06-2019 DTaP,Tdap and Td Vaccines (8 - Td or Tdap) DTaP,Tdap and Td Vaccines (8 - Td or Tdap) [facility] Start: 04-16-2019 Influenza vaccination Flu vaccine (# 1) [place], [place] Start: 2016 Cervical cancer screen Cervical canc er screen [place], [place] Start: 2016 Screening for malign ant neoplasm of cervix Pap Smear [facility] Start: 2014 DTaP,Tdap and Td Vaccines (1 - Tdap) DTaP,Tdap and Td Vaccines (1 - Tdap) [facility] Start: 2014 Urine screening for protein Diabetes: Urine Protein Screening [facility] Start: 2013 Adult BMI Follow Up Plan Adult BMI Follow Up Plan [facility] Start: 2013 Adult BMI Screening Adult BMI Screen ing [facility] Start: 2013 Diabetic foot examination Diabetic Foot Exam [facility] Start: 2011 Chlamydia screen Chlamydia screen [place], [place] Start: 2010 HIV screen HIV screen [place], [place] Start: 2007 Depression Screening Depression Scre ening [facility] Start: 2007 Tobacco Screening Tobacco Screening [facility] Start: 2006 DTaP/Tdap/Td vaccine (1 - Tdap) DTaP/Tdap/Td vaccine (1 - Tdap) [place], [place] Start: 2006 HPV vaccine (1 - Fem tarun 2-dose series) HPV vaccine (1 - Female 2-dose series) [place], [place] Start: 2005 Glaucoma screening Diabetes: R etinopathy Screening [facility] Start: 1996 Varicella Vaccine (1 of 2 - 2-dose childhood series) Varicella Vaccine (1 of 2 - 2-dose childhood series) [place], [place] Start: 1995 Glaucoma screening Diabetic Op hthalmology Exam [facility] Start: 1995 Urine screening for protein Urine Microalbumin [facility] End: 08-14-2025 Comprehensive metabolic 2000 panel - Serum or Plasma Comprehensive metabolic panel Lab Routine with type 2 diabetes mellitus in second trimester 1 Occurrences starting 08/14/2024 until 08/14/2025 [employer] Work Phone: Comment on above: 1 Occurrences starti ng 08/14/2024 until 08/14/2025 End: 08-14-2025 ECG 12 lead ECG 12 lead ECG Routine with type 2 diabetes mellitus in second trimester Long Q-T syndrome 1 Occurrences starting 08/14/2024 until 08/14/2025 [facility] Comment on above: 1 Occurrences starti ng 08/14/2024 until 08/14/2025 End: 08-14-2025 Thyroid profile includes TSH FT4 Thyroid profile includes TSH FT4 Lab Routine with type 2 diabetes mellitus in second trimester 1 Occurrences starting 08/14/2024 until 08/14/2025 [facility] Comment on above: 1 Occurrences starti ng 08/14/2024 until 08/14/2025 Immunizations Immunization Date Immunization Notes Care Provider Marilee hicks 09-06-2009 tetanus toxoid, redu keron diphtheria toxoid, and acellular pertussis vaccine, adsorbed Darío Floro CN Work Phone: [facility] 08-25-2007 meningococcal polysaccharide (groups A, C, Y and W-135) diphtheria toxoid conjugate vaccine (MCV4P) Darío Floro CN Work Phone: [facility] 08-25-2007 tetanus toxoid, redu keron diphtheria toxoid, and acellular pertussis vaccine, adsorbed Darío Floro CN Work Phone: [facility] 08-25-2007 varicella virus vaccine Goodland gabbie Floro CN Work Phone: [facility] 09-06-2000 diphtheria, tetanus toxoids and acellular pertussis vaccine, unspecified formulation Darío Floro CN Work Phone: [facility] 09-06-2000 measles, mumps and r ubella virus vaccine Darío Floro CN Work Phone: [facility] 09-06-2000 poliovirus vaccine, unspecified formulation Darío Floro CN Work Phone: [facility] 12-24-1996 varicella virus vaccine Madeline gabbie Floro CN Work Phone: [facility] 10-12-1996 diphtheria, tetanus toxoids and acellular pertussis vaccine, unspecified formulation Darío Floro CN Work Phone: [facility] 10-12-1996 haemophilus influenz ae type b vaccine, conjugate unspecified formulation Darío Floro CN Work Phone: [facility] 10-12-1996 measles, mumps and r ubella virus vaccine Darío Floro CNM Work Phone: [facility] 02-25-1996 diphtheria, tetanus toxoids and acellular pertussis vaccine, unspecified formulation Darío Floro CNM Work Phone: [facility] 02-25-1996 haemophilus influenz ae type b vaccine, conjugate unspecified formulation Darío Floro CNM Work Phone: [facility] 02-25-1996 hepatitis B vaccine, pediatric or pediatric/adolescent dosage Darío Floro CNM Work Phone: [facility] 02-25-1996 poliovirus vaccine, unspecified formulation Darío Floro CNM Work Phone: [facility] 1995 diphtheria, tetanus toxoids and acellular pertussis vaccine, unspecified formulation Darío Floro CNM Work Phone: [facility] 1995 haemophilus influenz ae type b vaccine, conjugate unspecified formulation Darío Floro CNM Work Phone: [facility] 1995 poliovirus vaccine, unspecified formulation Darío Floro CNM Work Phone: [facility] 1995 diphtheria, tetanus toxoids and acellular pertussis vaccine, unspecified formulation Darío Floro CNM Work Phone: [facility] 1995 haemophilus influenz ae type b vaccine, conjugate unspecified formulation Darío Floro CNM Work Phone: [facility] 1995 hepatitis B vaccine, pediatric or pediatric/adolescent dosage Darío Floro CNM Work Phone: [facility] 1995 poliovirus vaccine, unspecified formulation Darío Floro CNM Work Phone: [facility] 1995 hepatitis B vaccine, pediatric or pediatric/adolescent dosage Darío Floro CNM Work Phone: [facility] Payers Date Payer Category Payer Unknown BCBS BCBS OUT OF STATE xxxxxxxxxxxx 2019-Present [address] [place] [address] xxxxxxxxxxxx [id number] 2019 Blue Cross Blue Shield BCBS [id number] 2019 Blue Cross Blue Shie ld Managed Care - Other [id number] 2019 Unknown [id number] 2016 Unknown [id number] 1.13.693.2. [id number] 1995 Unknown [id number] 2.16.840.1.133070.3.579.2. 173 1995 Unknown [id number] 2.16.840.1.807076.3.579.2. 1286 1995 Unknown [id number] 2.16.840.1.119899.3.579.2. 1286 1995 Unknown [id number] 2.16.840.1.986776.3.579.2. 1286 1995 Unknown [id number] 2.16.840.1.226720.3.579.2. 1286 1995 Unknown [id number] 2.16.840.1.034207.3.579.2. 1286 1995 Unknown [id number] 2.16.840.1.003947.3.579.2. 1286 1995 Unknown [id number] 2.16.840.1.150573.3.579.2. 1286 1995 Unknown [id number] 2.16.840.1.385173.3.579.2. 6 1995 Unknown [id number] 2.16.840.1.467267.3.579.2. 1286 1995 Unknown [id number] 2.16.840.1.520038.3.579.2. 128 1995 Unknown [id number] 2.16.840.1.853349.3.579.2. 128 1995 Unknown [id number] 2.16.840.1.810918.3.579.2. 9 1995 Unknown [id number] 2.16.840.1.775265.3.579.2. 1258 1995 Unknown [id number] 2.16.840.1.267748.3.579.2. 1258 1995 Unknown [id number] 2.16.840.1.360057.3.579.2. 1258 1995 Unknown [id number] 2.16.840.1.011913.3.579.2. 9 1995 Unknown [id number] 2.16.840.1.090005.3.579.2. 1258 1995 Unknown [id number] 2.16.840.1.890580.3.579.2. 1258 1995 Unknown [id number] 2.16.840.1.849170.3.579.2. 1258 1995 Unknown [id number] 2.16.840.1.469332.3.579.2. 1258 1995 Unknown [id number] 2.16.840.1.204962.3.579.2. 1258 1995 Unknown [id number] 2.16.840.1.350177.3.579.2. 1259 1995 Unknown [id number] 2.16.840.1.479186.3.579.2. 1259 1995 Unknown [id number] 2.16.840.1.210873.3.579.2. 1259 1995 Unknown [id number] 2.16.840.1.286237.3.579.2. 1259 1995 Unknown [id number] 2.16.840.1.706192.3.579.2. 1259 1995 Unknown [id number] 2.16.840.1.094040.3.579.2. 1259 Social History Date Type Detail [facility] Start: 1995 Sex Assigned At Not on file [facility] Start: 02-10-2023 End: 07-25-2024 Tobacco smoking status SCIS Never smoked tobacco [facility] Start: 02-10-2023 End: 07-25-2024 Tobacco use and exposure Smokeless tobacco non-user [facility] Start: 06-08-2024 End: 12-25-2024 Alcoholic beverage intake Current drinker of alcohol (finding) [facility] Start: 04-09-2023 End: 06-07-2024 History of Social function [facility] Start: 04-09-2023 End: 06-07-2024 [id number] Health Literacy [facility] How often do you nee d to have someone help you when you read instructions, pamphlets, or other written material from your doctor or pharmacy [SILS] Never [facility] Within the last year , have you been afraid of your partner or ex-partner? No [facility] Do you belong to any clubs or organizations such as sabianism groups, unions, fraternal or athletic groups, or school groups? Yes [facility] Are you now , , , , never or living with a partner? [facility] How often to you hav e a drink containing alcohol? Monthly or less [facility] How many standard dr inks containing alcohol do you have on a typical day? 1 or 2 [facility] How often do you hav e 6 or more drinks on 1 occasion? Never [facility] Do you feel stress - tense, restless, nervous, or anxious, or unable to sleep at night because your mind is troubled all the time - these days [OSQ] Not at all [facility] (I/We) worried wheth er (my/our) food would run out before (I/we) got money to buy more. Never true [facility] Start: 02-11-2023 Alcohol Comment 3 or 4 drinks on typical day / monthly or less. Caffeine: 1-2 cups/day [facility] Start: 1995 Sex assigned at Female [facility] Start: 02-08-2023 Gender identity Identifies as female gender (finding) [facility] Start: 05-16-2024 [facility] Start: 08-14-2024 End: 11-09-2024 Alcoholic beverage intake Ex-drinker (finding) [facility] Start: 03-19-2015 End: 07-25-2024 Sex Female (finding) [facility] Procedure Code Equipment Code Equipment Origin al Text Equipment Identifier Dates [id number] Start: 11-29-2023 End: 11-28-2024 Check urine for ketones if blood sugar/glucose 200 or above daily as needed. Use as directed. [id number] Start: 08-14-2024 USE DIRECTED FIVE TIMES DAILY [id number] Start: 10-03-2024 Functional Status Date Assessment Result Facility 12-07-2024 Patient Health Quest ionnaire 2 item (PHQ-2) [Reported] [facility] Clinical Notes 05-03-2024 to 12-26-2024 Darío Banuelos CNM - 12/26/2024 4:00 PM EDDean Hughes LPN - 12/25/2024 10:20 AM EDEduardo Banuelos CNM - 12/11/2024 4:00 PM Sal Delatorre DO - 12/07/2024 8:37 AM EDT Note Date & Type Note Facility 12-26-2024 History of Presen t illness Narrative Subjective No chief complaint on file. Kelliephylicia Reyes is a 29 y.o. at 32w1d [...] will do all nst's and bpp's at [place] per Dr Sam Objective Physical Exam Weight: [...] a routine visit. documented in this encounter [facility] 12-25-2024 History of Presen t illness Narrative Reason for Appointment: Patient ID: Kellie Reyes is a 29 y.o. female who presents for Consult (Patient is a Wanda Banuelos referral to Dr. Sam for Type II [...] UNIT/ML injection 1-2 units breakfast, 5-12 units lunch/dinner (max daily 50 units) insulin NPH, Isophane, (HumuLIN [...] nursing note reviewed. Exam conducted with a guest room inspector present. Vitals: Estimated body mass index is 34.44 kg/m as calculated from the following: Height as of 12/07/24: 5' 10 . Weight as of 11/15/24: 240 lb. BP: Patient's last menstrual period was 05/02/2024 (exact date). ASSESSMENT & PLAN ICD-10-CM 1. with type 2 diabetes mellitus in third trimester O24.113 Ambulatory referral to Obstetrics / Gynecology POCT urinalysis dipstick manually resulted Patient presents today for referral from [facility] due to Type 2 Diabetes and . Patient is setup for NST/BPP Bi-Weekly/Weekly at [facility]'s office. Patient voiced that she was seen at [facility] for anatomy Scan. Advised patient that it is preferred to have NST/BPP at [facility] for co-management in . Patient is agreeable with having location changed. Order will be given to patient today to have setup at [facility]. Discussed delivery with patient and if sugars are controlled well with insulin then she will be able to delivery at 39 weeks gestation, but if sugars are not well controlled then delivery would be recommended at 38 weeks to prevent issues with placenta. Patient is currently taking Aspirin 81mg daily. FHT 145, patient to continue care with [facility] and reach out to office with any concerns. Documented by Estelle Hughes LPN on behalf of: Henry Sam DO documented in this encounter [facility] 12-11-2024 History of Presen t illness Narrative Subjective No chief complaint on file. Kellie Reyes is a 29 y.o. at 30w0d with a working estimated date of delivery [...] Lv 1 Current Her is complicated by: 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, insulin required during . Managed by Awilda Crowley in [place]. Did see MFM Objective Physical Exam Expected Total Weight Gain: 11 lb-19 lb Pregravid BMI: 35.30 BP: 120/70 Urine protein-negative Urine glucose-negative Assessment/Plan Diagnoses and all orders for this visit: with type 2 diabetes mellitus in third trimester - US biophysical profile wo non stress testing; Future - US biophysical profile wo non stress testing; Future - US biophysical profile wo non stress testing; Future - US biophysical profile wo non stress testing; Future - US biophysical profile wo non stress testing; Future - US biophysical profile wo non stress testing; Future - US OB follow up transabdominal approach; Future - US OB follow up transabdominal approach; Future Continue vitamin. Labs reviewed. GBS taken. Expected mode of delivery Follow up in 1 week for a routine visit. documented in this encounter [facility] 12-07-2024 History of Presen t illness Narrative Associated Problem(s): with type 2 diabetes mellitus in third trimester During the appointment today all pertinent labs, imaging, health maintenance, and glucose readings were reviewed. Encouraged to check blood glucose throughout the day with some fasting and some PP readings. They are to bring their glucose meter/cgm in to all appointments. All of the patients questions, treatment options, and current care plan and goals were discussed. A copy of this along with pertinent instructions were given to the patient at the end of the appointment. The patient voices understanding of all of this and is to call in between appointments if they have any problems or questions. Kellie Reyes is doing very well and encouraged on this. , The patient is wearing their cgm on a daily basis and making decisions in regards to adjusting insulin daily as well for at least the last 60 days , Instructions given today include: Insulin instructions. Will have her take 1-2 units for breakfast and increase insulin for her larger meals. Images from the original note were not included. Kellie Reyes is a 29 y.o. female presents with chief complaint of Diabetes HPI: Diabetes Mellitus Follow-up: Kellie Reyes is here for follow-up evaluation of diabetes mellitus. The initial diagnosis of insulin resistance was made at 8 years of age. 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 since December 2022 Diabetes complications: none Hx diabetes medications tried: none She has been checking her blood glucose Dexcom G7 CGM- LINKED- on a daily basis. Bg running smooth and in range most of the time. Will rise a little with breakfast and then sometimes with dinner. She has a small granola bar for breakfast with only 6 grams of carbs so she doesn't take any insulin with this. Does take insulin at lunch and dinner. Last A1c: 5.7 (10/09/24) Last eye exam: Due Current concerns include: Pt is 29 weeks a 3 days gestation. Bg levels: better until the past week Diet: limiting carbs, sugars and increase protein Drinks: water, sugar free tea, diet pop Exercise: volleyball once a week Hypoglycemia: none Diabetes Pertinent negatives for diabetes include no chest pain, no fatigue, no polydipsia, no polyphagia and no polyuria. SUBJECTIVE: PROBLEM LIST SOCIAL ALLERGIES: Patient Active Problem List Diagnosis Abnormal glucose Insulin resistance Long Q-T syndrome Mixed hyperlipidemia (CMS/HCC) PCOS (polycystic ovarian syndrome) Plantar wart of right foot Pure hyperglyceridemia (CMS/HCC) 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 mellitus without complication, without long-term current use of insulin with type 2 diabetes mellitus in third trimester Social History Tobacco Use Smoking status: Never Smokeless tobacco: Never Substance Use Topics Alcohol use: Yes Comment: 3 or 4 drinks on typical day / monthly or less. Caffeine: 1-2 cups/day Drug use: Never No Known Allergies Synopsis SmartLink 12/07/2024 00:00 10/09/2024 09/29/2024 00:00 Antidiabetic medications Insulin Lispro 4 units small meals and 6 units large meals (max daily 50 units) (100 UNIT/ML SOPN)-Discontinued (Dose adjustm) 4 units small meals and 6 units large meals (max daily 50 units) (100 UNIT/ML SOPN) Insulin Lispro 5 units small meals and 8 units large meals (max daily 50 units) (100 UNIT/ML SOPN)-Discontinued (Dose adjustm) 5 units small meals and 8 units large meals (max daily 50 units) (100 UNIT/ML SOPN) Insulin Lispro 1-2 units breakfast, 5-12 units lunch/dinner (max daily 50 units) (100 UNIT/ML SOPN) Insulin NPH Human (Isophane) 15 units am and 25 units pm (100 UNIT/ML SUPN) -Discontinued (Dose adjustm) Insulin NPH Human (Isophane) 15 units am and 20 units pm (100 UNIT/ML SUPN)-Discontinued (Dose adjustm) 15 units am and 20 units pm (100 UNIT/ML SUPN) Insulin NPH Human (Isophane) 10 units am and 20 units pm (100 UNIT/ML SUPN)-Discontinued (Dose adjustm) 10 units am and 20 units pm (100 UNIT/ML SUPN) Insulin NPH Human (Isophane) 10 units am and 17 units pm (100 UNIT/ML SUPN) metFORMIN HCl 1/2 tablet in the am and 1 tablet in the evening (1000 MG TABS) 1/2 tablet in the am and 1 tablet in the evening (1000 MG TABS) 1/2 tablet in the am and 1 tablet in the evening (1000 MG TABS) Labs [facility] [place] HEMOGLOBIN A1C/HEMOGLOBIN.TOTAL:MFR:PT:BLD: QN: 5.7 Outpatient prescription Medication marked as long-term The ASCVD Risk score (Buckner DK, et al., 2019) failed to calculate for the following reasons: The 2019 ASCVD risk score is only valid for ages 40 to 79 REVIEW OF SYMPTOMS: Review of Systems Constitutional: Negative for appetite change, fatigue and unexpected weight change. Eyes: Negative for visual disturbance. Respiratory: Negative for cough, shortness of breath and wheezing. Cardiovascular: Negative for chest pain, palpitations and leg swelling. Neurological: Negative for numbness. Endocrine: Negative for polydipsia, polyphagia and polyuria. OBJECTIVE: 12/07/2024 8:17 AM 11/15/2024 4:31 PM 10/18/2024 4:37 PM Vitals BMI 34.44 kg/m2 34.44 kg/m2 34.15 kg/m2 Systolic 126 120 120 Diastolic 66 78 60 Heart Rate 86 Temp 97.9 F Height (in) 5' 10 Weight (lb) 240 238 Visit Report Report Physical Exam Constitutional: General: She is not in acute distress. Appearance: Normal appearance. Cardiovascular: Rate and Rhythm: Normal rate and regular rhythm. Heart sounds: No murmur heard. No friction rub. No gallop. Pulmonary: Breath sounds: Normal breath sounds. No wheezing, rhonchi or rales. Musculoskeletal: General: No swelling. Neurological: Mental Status: She is alert. ASSESSMENT AND PLAN: Problem List Items Addressed This Visit with type 2 diabetes mellitus in third trimester - Primary During the appointment today all pertinent labs, imaging, health maintenance, and glucose readings were reviewed. Encouraged to check blood glucose throughout the day with some fasting and some PP readings. They are to bring their glucose meter/cgm in to all appointments. All of the patients questions, treatment options, and current care plan and goals were discussed. A copy of this along with pertinent instructions were given to the patient at the end of the appointment. The patient voices understanding of all of this and is to call in between appointments if they have any problems or questions. Kelliephylicia Reyes is doing very well and encouraged on this. , The patient is wearing their cgm on a daily basis and making decisions in regards to adjusting insulin daily as well for at least the last 60 days , Instructions given today include: Insulin instructions. Will have her take 1-2 units for breakfast and increase insulin for her larger meals. Relevant Medications insulin lispro (HumaLOG KWIKPEN) 100 UNIT/ML injection Other Visit Diagnoses with type 2 diabetes mellitus in second trimester Relevant Medications insulin lispro (HumaLOG KWIKPEN) 100 UNIT/ML injection Follow up in about 6 weeks (around 01/18/2025) for Recheck. Patient's Medications New Prescriptions No medications on file Previous Medications ACETAMINOPHEN (TYLENOL) 500 MG TABLET Take 500 mg by mouth every 6 (six) hours if needed ACETONE, URINE, TEST (KETOSTIX) STRIP Check urine for ketones if blood sugar/glucose 200 or above daily as needed. Use as directed. ASPIRIN 81 MG EC TABLET Take 81 mg by mouth in the morning. CONTINUOUS GLUCOSE SENSOR (DEXCOM G7 SENSOR) [facility] USE DIRECTED to test BLOOD SUGAR change EVERY TEN days INSULIN PEN NEEDLE (B-D UF III MINI PEN NEEDLES) 31G X 5 MM MISC USE DIRECTED FIVE TIMES DAILY METFORMIN (GLUCOPHAGE) 1000 MG TABLET 1/2 tablet in the am and 1 tablet in the evening Modified Medications Modified Medication Previous Medication INSULIN LISPRO (HUMALOG KWIKPEN) 100 UNIT/ML INJECTION insulin lispro (HumaLOG KWIKPEN) 100 UNIT/ML injection 1-2 units breakfast, 5-12 units lunch/dinner (max daily 50 units) 5 units small meals and 8 units large meals (max daily 50 units) INSULIN NPH, ISOPHANE, (HUMULIN N KWIKPEN) 100 UNIT/ML INJECTION insulin NPH, Isophane, (HumuLIN N KWIKPEN) 100 UNIT/ML injection 10 units am and 17 units pm 10 units am and 20 units pm Discontinued Medications No medications on file I have reviewed and reconciled the history and medication list with the patient today. documented in this encounter [facility] 11-15-2024 History of Presen t illness Narrative Subjective No chief complaint on file. Kellie Reyes is a 29 y.o. at 26w2d with a working estimated date of delivery [...] Lv 1 Current Her is complicated by: The following portions of the chart were reviewed this encounter and updated as appropriate: Objective Physical Exam weight: 240 lb Expected Total Weight Gain: 11 lb-19 lb Pregravid BMI: 35.30 BP: 120/78 Urine protein-negative Urine glucose-negative Labs: reviewed Imaging Assessment/Plan Diagnoses and all orders for this visit: Encounter for care of first , second trimester related condition in third trimester - US OB follow up transabdominal approach; Future Gestational diabetes mellitus (GDM) requiring insulin Continue vitamin. Labs reviewed. Rhogam GTT not doing patient is type 2 diabetic currently on insulin. Being managed by Dr Awilda Crowley. She is no longer required to see MFM she states they told her the US and NSTs and BPPs can be done by her primary OB provider. I will also consult Dr Sam and have patient see him for consult also. I did discuss with patient starting increased surveillance testing at 32 weeks. Follow up in 2 weeks for a routine visit. documented in this encounter [facility] 11-08-2024 History of Presen t illness Narrative Kellie Reyes Date of visit: 11/08/2024 Date of : 1995 Age: 29 y.o. Patient Active Problem List Diagnosis Abnormal glucose Insulin resistance Mixed hyperlipidemia PCOS (polycystic ovarian syndrome) 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 mellitus without complication ([facility]) Pre-existing type 2 diabetes mellitus during in second trimester with type 2 diabetes mellitus in second trimester Hx of prolonged Q-T interval on ECG No Known Allergies Current Outpatient Medications Medication Sig Dispense Refill acetaminophen (acetaminophen Pain Relief) 500 mg tablet Take 1 tablet (500 mg total) by mouth every 6 (six) hours as needed for pain. acetone, urine, test strip Check urine for ketones if blood sugar/glucose 200 or above daily as needed. Use as directed. 50 strip 3 aspirin 81 mg Take 1 tablet (81 mg total) by mouth in the morning. blood-glucose sensor (Atlas5DCOM G7 SENSOR) device Use to monitor blood glucose 5 each 11 docosahexaenoic acid (DHA ORAL) Take 1 tablet by mouth once daily. insulin lispro (HumaLOG) 100 unit/mL injection Inject under the skin 3 (three) times a day before meals. As directed insulin NPH isoph U-100 human (HumuLIN N KWIKPEN) 100 unit/mL (3 mL) insulin pen Inject 15 Units in the morning and 34 Units in the evening (Patient taking differently: Inject 10 Units in the morning and 17 Units in the evening) 15 mL 6 MAGNESIUM CARBONATE ORAL Take 1 tablet by mouth once daily. metFORMIN (GLUCOPHAGE) 1000 mg tablet Take 0.5 tablets (500 mg total) by mouth daily with breakfast. 500 mg (1/2 tablet) with breakfast and 1000 mg with supper No current facility-administered medications for this visit. 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 - history of prolonged QT interval noted on EKG. Patient states that in her teenage years, patient had an EKG performed which was concerning for prolonged QT interval of around 460 milliseconds. She followed up with a log manager but no intervention was performed since the patient did not have any symptoms. Patient is currently . Patient was asked to follow up with Cardiology. Seen by general cardiology clinic in asked to be seen in EP Clinic. I reviewed all the EKGs available in the system. There was an EKGs available from which does show borderline prolonged QT interval but all EKGs since then have shown normal QT interval. Patient denies any episodes of syncope. No family history of sudden cardiac . No other significant cardiac complaints. EKG performed today showed sinus rhythm. QTC interval is 417 milliseconds. Past Medical History: Diagnosis Date Diabetes mellitus ([facility]) Hyperlipidemia Insulin resistance Long Q-T syndrome Prolonged QT syndrome No data recorded No data recorded No data recorded Past Surgical History: Procedure Laterality Date ADENOIDECTOMY EXTERNAL EAR SURGERY INNER EAR SURGERY x3 TONSILLECTOMY WISDOM TOOTH EXTRACTION Family History Problem Relation Age of Onset Diabetes Paternal Grandfather Diabetes Father Diverticulitis Mother Diabetes Sister Prediabetes Polycystic ovary syndrome Sister Other Problem (underactive thyroid) Sister Social History Socioeconomic History Marital status: Spouse name: Not on file Number of children: Not on file Years of education: Not on file Highest education level: Not on file Occupational History Not on file Tobacco Use Smoking status: Never Smokeless tobacco: Never Vaping Use Vaping status: Never Used Substance and Sexual Activity Alcohol use: Not Currently Drug use: Never Sexual activity: Yes Partners: Male Other Topics Concern Caffeine Use Yes Social History Narrative Merged History Encounter Social Drivers of Health Financial Resource Strain: Low Risk (06/07/2024) Received from [facility] Overall Financial Resource Strain (CARDIA) Difficulty of Paying Living Expenses: Not hard at all Food Insecurity: No Food Insecurity (11/08/2024) Hunger Screening Food Insecurity - Worry: Never True Food Insecurity - Inability: Never True Transportation Needs: No Transportation Needs (06/07/2024) Received from [facility] PRAPARE - Transportation Lack of Transportation (Medical): No Lack of Transportation (Non-Medical): No Physical Activity: Sufficiently Active (06/07/2024) Received from [facility] Exercise Vital Sign Days of Exercise per Week: 5 days Minutes of Exercise per Session: 30 min Stress: No Stress Concern Present (06/07/2024) Received from [facility] [employer] Health - Occupational Stress Questionnaire Feeling of Stress : Not at all Social Connections: Socially Integrated (06/07/2024) Received from [facility] Social Connection and Isolation Panel [NHANES] Frequency of Communication with Friends and Family: More than three times a week Frequency of Social Gatherings with Friends and Family: Three times a week Attends [employer] Services: More than 4 times per year Active Member of Clubs or Organizations: Yes Attends Club or Organization Meetings: More than 4 times per year Marital Status: Interpersonal Safety: Not At Risk (04/09/2023) Received from [facility], [facility] Humiliation, Afraid, Rape, and Kick questionnaire Fear of Current or Ex-Partner: No Emotionally Abused: No Physically Abused: No Sexually Abused: No Housing Instability: Low Risk (06/07/2024) Received from [facility] Housing Stability Vital Sign Unable to Pay for Housing in the Last Year: No Number of Times Moved in the Last Year: 0 Homeless in the Last Year: No Review of Systems Review of Systems Constitutional: Negative. HENT: Negative. Eyes: Negative. Cardiovascular: Negative. Respiratory: Negative. Endocrine: Negative. Hematologic/Lymphatic: Negative. Skin: Negative. Musculoskeletal: Negative. Gastrointestinal: Negative. Genitourinary: Negative. Neurological: Negative. Psychiatric/Behavioral: Negative. Allergic/Immunologic: Negative. Vascular: Negative. CARDIOVASCULAR: Please review HPI. Physical Examination General appearance: Alert, oriented and cooperative. In no acute distress. Skin: Warm and dry to touch. Head: Normocephalic, without obvious abnormality, atraumatic. Ears, Nose, Mouth, Throat: Throat clear without erythema or exudate. Dentition intact. Eyes: Conjunctivae unremarkable, EOM intact. Neck: No JVD, No carotid bruit. Neck supple, trachea midline. Respiratory: Clear to auscultation bilaterally, no use of accessory muscles. Cardiovascular: RRR with normal S1 and S2 with no murmurs. Gastrointestinal: Soft, non-tender. Bowel sounds normal. Musculoskeletal: No peripheral edema. Neurologic: Oriented to time, person and place, affect appropriate. No focal/major motor defects noted. Psychiatric: Appropriate mood, memory and judgement. VITAL SIGNS: BP 128/64 Pulse 80 Ht 177.8 cm (5' 10 ) Wt 107.7 kg (237 lb 6.4 oz) [facility] 05/02/2024 SpO2 98% BMI 34.06 kg/m Orders Placed or Reconciled This Encounter Medications insulin lispro (HumaLOG) 100 unit/mL injection Sig: Inject under the skin 3 (three) times a day before meals. As directed There are no discontinued medications. IMPRESSIONS/PLAN 1. Long Q-T syndrome - [facility] - Electrophysiology - [place], [place] - POCT EKG 2. Hx of prolonged Q-T interval on ECG 1. History of prolonged QT interval noted on EKG: - EKG performed in when the patient was a teenager showed the borderline prolonged QT interval. Around 460 milliseconds. - all EKGs performed since then have shown normal QT interval. - patient has not had any syncopal episodes. - no family history of sudden cardiac . - since patient does not have any symptoms and all recent EKGs have shown normal QT interval, I do not think that we need to investigate this further. - discussed with the patient to contact us immediately if she has any syncopal episodes. - otherwise plan is to perform yearly EKGs to monitor for prolongation of QT interval. - no other intervention required at this time. - will hold off on genetic testing as well. TODAYS ORDERS Orders Placed This Encounter Procedures POCT EKG FOLLOW UP Return in about 1 year (around 11/08/2025). PCP: LILIANA Peralta Referring Physician: Aye Saucedo MD [address] [place] [address] documented in this encounter [facility] 11-07-2024 Miscellaneous Notes [employer] MESSAGE REMINDER SENT TO PT TO REMIND OF PPC APPT. documented in this encounter [facility] 11-07-2024 Telephone encounter Note [employer] MESSAGE REMINDER SENT TO PT TO REMIND OF PPC APPT. [facility] 10-10-2024 History of Presen t illness Narrative REASON FOR TELEMEDICINE VIDEO OFFICE VISIT: Suspected Maternal prolonged QT ruled out. HISTORY OF PRESENT ILLNESS: Kellie Reyes is a pleasant 29 y.o. G 1 P0 at 21w1d due on Estimated Date of Delivery: 02/19/25 . has been complicated with Pre gestational type 2 diabetes on insulin. 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 Patient is comfortable with her plant maintenance supervisor. Blood glucose are adequately controlled. Suspected prolonged QT syndrome. Patient was told as a child so she might a borderline prolonged QT syndrome. No intervention was done. Patient then was lost for follow-up and has not seen wild life manager for more than 10 years. Therefore the patient was referred to Cardiology which showed normal QT interval no evidence of prolonged QT. Patient has been referred to electrophysiology for 2nd opinion. InCase electrophysiology also ruled out prolonged QT patient should be considered low risk and can be delivered at her local hospital. Currently the patient has no complaints. The patient denies nausea, vomiting, abdominal pain, vaginal bleeding, SOB or chest pain. Patient Active Problem List Diagnosis Long Q-T syndrome Abnormal glucose Insulin resistance Mixed hyperlipidemia PCOS (polycystic ovarian syndrome) 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 mellitus without complication ([facility]) Long Q-T syndrome Pre-existing type 2 diabetes mellitus during in second trimester with type 2 diabetes mellitus in second trimester ALLERGIES: No Known Allergies CURRENT MEDICATIONS: Current Outpatient Medications: acetaminophen (acetaminophen Pain Relief) 500 mg tablet, Take 1 tablet (500 mg total) by mouth every 6 (six) hours as needed for pain., Disp: , Rfl: acetone, urine, test strip, Check urine for ketones if blood sugar/glucose 200 or above daily as needed. Use as directed., Disp: 50 strip, Rfl: 3 aspirin 81 mg, Take 1 tablet (81 mg total) by mouth in the morning., Disp: , Rfl: blood-glucose sensor (DEXCOM G7 SENSOR) device, Use to monitor blood glucose, Disp: 5 each, Rfl: 11 docosahexaenoic acid (DHA ORAL), Take 1 tablet by mouth once daily., Disp: , Rfl: insulin NPH isoph U-100 human (HumuLIN N KWIKPEN) 100 unit/mL (3 mL) insulin pen, Inject 15 Units in the morning and 34 Units in the evening (Patient taking differently: Inject 15 Units in the morning and 30 Units in the evening), Disp: 15 mL, Rfl: 6 MAGNESIUM CARBONATE ORAL, Take 1 tablet by mouth once daily., Disp: , Rfl: metFORMIN (GLUCOPHAGE) 1000 mg tablet, Take 0.5 tablets (500 mg total) by mouth daily with breakfast. 500 mg (1/2 tablet) with breakfast and 1000 mg with supper, Disp: , Rfl: Past Medical History: Diagnosis Date Diabetes mellitus ([facility]) Hyperlipidemia Insulin resistance Long Q-T syndrome Prolonged QT syndrome REVIEW OF SYSTEMS: Head and Neck: Negative for any dizziness and headaches. Cardiovascular and Respiratory System: Denies any chest pain, shortness of breath, and coughing. Abdominal and System: Denies any abdominal pain, nausea, vomiting, vaginal bleeding, and vaginal discharge REVIEW OF ULTRASOUND. Pertinent Ultrasound findings are see report. PHYSICAL EXAMINATION: LMP 05/02/2024 . Gravid abdomen, Respirations not labored. Normal gait well oriented in time place and person. RECOMMENDATION: Follow-up in 4 weeks for completion of targeted anatomy and echocardiography at [facility]. 2. Serial growth ultrasounds every 4 weeks after 24 weeks gestation at her OB office. 3. No evidence of prolonged QT on baseline EKG and after meeting with cardiology. 4. InCase electrophysiology also rules out prolonged QT patient should be considered low risk and can be delivered at her local hospital. 5. Patient diabetes is managed through endocrinology and [facility] not involved and therefore no input from [facility]. 6. Initiate testing form twice weekly NST and weekly DL at 32 weeks gestation until delivery at her local hospital. 7. At 39 weeks gestation based on pre gestational type 2 diabetes on insulin. Thank you for allowing me to participate in [facility]. If there are any questions, please do not hesitate to call me. Sincerely, CLARKE MODI MD Video Visit via Real-time Synchronous Audiovisual Provider Location: [facility]ICINE AT [address] [id number] Patient Location: Patient's home Patient Location Office Machines Wirer: None Video Visit Consent Statement: I discussed risks, benefits, and alternatives of a real-time synchronous audiovisual consultation with the patient (and any accompanying persons) including the risks that the patient's personal health details and medical records will be discussed over real-time, synchronous, interactive video/audio/telecommunication technology, the visit will not be recorded without the express consent of both the provider and the patient, and that there are some limitations compared to [id number] evaluations. We elected to proceed. documented in this encounter [facility] 10-09-2024 History of Presen t illness Narrative Associated Problem(s): with type 2 diabetes mellitus in second trimester Continue to check fasting and PP readings with goals of fasting < 95 mg/dl, 1hr < 140 mg/dl, 2 hr < 120 mg/dl. She is to call with any problems or not improving. Send BG readings on a weekly basis. Will stay on current therapy as she is doing very well. Will continue to monitor closely and adjust her insulin doses accordingly. Images from the original note were not included. Kellie Reyes is a 29 y.o. female presents with chief complaint of Diabetes HPI: Diabetes Mellitus Follow-up: Kellie Reyes is here for follow-up evaluation of diabetes mellitus. The initial diagnosis of insulin resistance was made at 8 years of age. 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 since December 2022 Diabetes complications: none She has been checking her blood glucose Dexcom G7 CGM- on a daily basis. Running smooth and in range throughout the day. Occasionally dips overnight and sometimes rises after breakfast but overall doing well. Last A1c: 6.4 (07/10/24) Last eye exam: Due Current concerns include: Last office visit was on 09/01/2024 Pt is 21 weeks gestation. Bg levels: similar. Last insulin changes were on Wednesday Diet: limiting carbs, sugars and increase protein Drinks: water, sugar free tea, diet pop Exercise: volleyball once a week Hypoglycemia: rare - overnight SUBJECTIVE: PROBLEM LIST SOCIAL ALLERGIES: Patient Active Problem List Diagnosis Abnormal glucose Insulin resistance Long Q-T syndrome Mixed hyperlipidemia (CMS/HCC) PCOS (polycystic ovarian syndrome) Plantar wart of right foot Pure hyperglyceridemia (CMS/HCC) 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 mellitus without complication, without long-term current use of insulin (CMS/HCC) with type 2 diabetes mellitus in second trimester Social History Tobacco Use Smoking status: Never Smokeless tobacco: Never Substance Use Topics Alcohol use: Yes Comment: 3 or 4 drinks on typical day / monthly or less. Caffeine: 1-2 cups/day Drug use: Never No Known Allergies Synopsis Smart[facility] 10/09/2024 09/29/2024 00:00 09/22/2024 00:00 Antidiabetic medications Insulin Lispro 3 units small meals and 5 units large meals (max daily 50 units) (100 UNIT/ML SOPN) -Discontinued (Dose adjustm) Insulin Lispro 4 units small meals and 6 units large meals (max daily 50 units) (100 UNIT/ML SOPN)-Discontinued (Dose adjustm) 4 units small meals and 6 units large meals (max daily 50 units) (100 UNIT/ML SOPN) 4 units small meals and 6 units large meals (max daily 50 units) (100 UNIT/ML SOPN) Insulin Lispro 5 units small meals and 8 units large meals (max daily 50 units) (100 UNIT/ML SOPN) Insulin NPH Human (Isophane) 15 units am and 30 units pm (100 UNIT/ML SUPN) -Discontinued (Dose adjustm) Insulin NPH Human (Isophane) 15 units am and 25 units pm (100 UNIT/ML SUPN)-Discontinued (Dose adjustm) 15 units am and 25 units pm (100 UNIT/ML SUPN) Insulin NPH Human (Isophane) 15 units am and 20 units pm (100 UNIT/ML SUPN)-Discontinued (Dose adjustm) 15 units am and 20 units pm (100 UNIT/ML SUPN) Insulin NPH Human (Isophane) 10 units am and 20 units pm (100 UNIT/ML SUPN) metFORMIN HCl 1/2 tablet in the am and 1 tablet in the evening (1000 MG TABS) 1/2 tablet in the am and 1 tablet in the evening (1000 MG TABS) 1/2 tablet in the am and 1 tablet in the evening (1000 MG TABS) Labs [facility] HEMOGLOBIN A1C/HEMOGLOBIN.TOTAL:MFR:PT:BLD: QN: 5.7 Outpatient prescription Medication marked as long-term The ASCVD Risk score (Edilson BRAXTON, et al., 2019) failed to calculate for the following reasons: The 2019 ASCVD risk score is only valid for ages 40 to 79 REVIEW OF SYMPTOMS: Review of Systems Constitutional: Positive for fatigue. Negative for appetite change and unexpected weight change. Eyes: Negative for visual disturbance. Respiratory: Negative for cough, shortness of breath and wheezing. Cardiovascular: Negative for chest pain, palpitations and leg swelling. Neurological: Negative for numbness. Endocrine: Negative for polydipsia, polyphagia and polyuria. OBJECTIVE: 10/09/2024 3:40 PM 09/28/2024 4:17 PM 09/01/2024 8:54 AM Vitals BMI 34.01 kg/m2 34.58 kg/m2 34.44 kg/m2 Systolic 128 120 126 Diastolic 66 70 72 Heart Rate 98 92 Temp 98.2 F 98.5 F Height (in) 5' 10 5' 10 Weight (lb) 237 241 240 Visit Report Report Report Physical Exam Constitutional: General: She is not in acute distress. Appearance: Normal appearance. Cardiovascular: Rate and Rhythm: Normal rate and regular rhythm. Heart sounds: No murmur heard. No friction rub. No gallop. Pulmonary: Breath sounds: Normal breath sounds. No wheezing, rhonchi or rales. Musculoskeletal: General: No swelling. Neurological: Mental Status: She is alert. ASSESSMENT AND PLAN: Problem List Items Addressed This Visit 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 mellitus without complication, without long-term current use of insulin ([facility]) Relevant Orders POCT glycosylated hemoglobin (Hb A1C) docked device (Completed) with type 2 diabetes mellitus in second trimester - Primary Continue to check fasting and PP readings with goals of fasting < 95 mg/dl, 1hr < 140 mg/dl, 2 hr < 120 mg/dl. She is to call with any problems or not improving. Send BG readings on a weekly basis. Will stay on current therapy as she is doing very well. Will continue to monitor closely and adjust her insulin doses accordingly. Relevant Medications insulin lispro (HumaLOG KWIKPEN) 100 UNIT/ML injection Follow up in about 2 months (around 12/07/2024) for Recheck. Patient's Medications New Prescriptions No medications on file Previous Medications ACETAMINOPHEN (TYLENOL) 500 MG TABLET Take 500 mg by mouth every 6 (six) hours if needed ACETONE, URINE, TEST (KETOSTIX) STRIP Check urine for ketones if blood sugar/glucose 200 or above daily as needed. Use as directed. ASPIRIN 81 MG EC TABLET Take 81 mg by mouth in the morning. CONTINUOUS GLUCOSE SENSOR (DEXCOM G7 SENSOR) [facility] USE DIRECTED to test BLOOD SUGAR change EVERY TEN days INSULIN PEN NEEDLE (B-D UF III MINI PEN NEEDLES) 31G X 5 MM MISC USE DIRECTED FIVE TIMES DAILY METFORMIN (GLUCOPHAGE) 1000 MG TABLET 1/2 tablet in the am and 1 tablet in the evening Modified Medications Modified Medication Previous Medication INSULIN LISPRO (HUMALOG KWIKPEN) 100 UNIT/ML INJECTION insulin lispro (HumaLOG KWIKPEN) 100 UNIT/ML injection 5 units small meals and 8 units large meals (max daily 50 units) 4 units small meals and 6 units large meals (max daily 50 units) INSULIN NPH, ISOPHANE, (HUMULIN N KWIKPEN) 100 UNIT/ML INJECTION insulin NPH, Isophane, (HumuLIN N KWIKPEN) 100 UNIT/ML injection 10 units am and 20 units pm 15 units am and 20 units pm Discontinued Medications No medications on file I have reviewed and reconciled the history and medication list with the patient today. documented in this encounter [facility] 09-28-2024 History of Presen t illness Narrative Subjective No chief complaint on file. Kellie Reyes is a 29 y.o. at 19w3d with a working estimated date of delivery [...] Lv 1 Current Her is complicated by: infertility, 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, insulin resistance, The following portions of the chart were reviewed this encounter and updated as appropriate: Objective Physical Exam weight: 241 lb Expected Total Weight Gain: 11 lb-19 lb Pregravid BMI: 35.30 BP: 120/70 Urine protein-negative Urine glucose-negative Labs: reviewed Imaging Assessment/Plan Diagnoses and all orders for this visit: Encounter for care of first , second trimester 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 mellitus without complication, without long-term current use of insulin ([facility]) Continue vitamin. Labs reviewed Follow up in 2 weeks for a routine visit. documented in this encounter [facility] 09-19-2024 History of Presen t illness Narrative Kellie Reyes Date of visit: 09/19/2024 Date of : 1995 Age: 29 y.o. Patient Active Problem List Diagnosis Long Q-T syndrome Abnormal glucose Insulin resistance Mixed hyperlipidemia PCOS (polycystic ovarian syndrome) 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 mellitus without complication ([facility]-H[facility]) Long Q-T syndrome Pre-existing type 2 diabetes mellitus during in second trimester with type 2 diabetes mellitus in second trimester No Known Allergies Current Outpatient Medications Medication Sig Dispense Refill acetaminophen (acetaminophen Pain Relief) 500 mg tablet Take 1 tablet (500 mg total) by mouth every 6 (six) hours as needed for pain. acetone, urine, test strip Check urine for ketones if blood sugar/glucose 200 or above daily as needed. Use as directed. 50 strip 3 aspirin 81 mg Take 1 tablet (81 mg total) by mouth in the morning. blood-glucose sensor (DEXCOM G7 SENSOR) device Use to monitor blood glucose 5 each 11 docosahexaenoic acid (DHA ORAL) Take 1 tablet by mouth once daily. insulin NPH isoph U-100 human (HumuLIN N KWIKPEN) 100 unit/mL (3 mL) insulin pen Inject 15 Units in the morning and 34 Units in the evening (Patient taking differently: Inject 15 Units in the morning and 30 Units in the evening) 15 mL 6 MAGNESIUM CARBONATE ORAL Take 1 tablet by mouth once daily. metFORMIN (GLUCOPHAGE) 1000 mg tablet Take 0.5 tablets (500 mg total) by mouth daily with breakfast. 500 mg (1/2 tablet) with breakfast and 1000 mg with supper No current facility-administered medications for this visit. Chief Complaint Patient presents with 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 - Long Q-T syndrome SEEN CARDIO A CHILD 10 + YRS AGO SCHED W/PT History of Present Illness This is a 29-year-old female who apparently in 8th grade was borderline for long QT syndrome diagnosed. She had taken energy drinks and may have had a prolonged QT. She had never had near-syncope syncope. Denies chest pain palpitations. No family history of sudden cardiac and she is not aware of any family history. She stopped seeing a log manager age of 18 Since she is now 18 weeks we are have been asked to evaluate her for this Today's EKG shows sinus rhythm QT is measured at 382 corrected 420 milliseconds Past Medical History: Diagnosis Date Diabetes mellitus ([facility]) Hyperlipidemia Insulin resistance Long Q-T syndrome Prolonged QT syndrome No data recorded No data recorded No data recorded Past Surgical History: Procedure Laterality Date ADENOIDECTOMY EXTERNAL EAR SURGERY INNER EAR SURGERY x3 TONSILLECTOMY WISDOM TOOTH EXTRACTION Family History Problem Relation Age of Onset Diabetes Paternal Grandfather Diabetes Father Diverticulitis Mother Diabetes Sister Prediabetes Polycystic ovary syndrome Sister Other Problem (underactive thyroid) Sister Social History Socioeconomic History Marital status: Spouse name: Not on file Number of children: Not on file Years of education: Not on file Highest education level: Not on file Occupational History Not on file Tobacco Use Smoking status: Never Smokeless tobacco: Never Vaping Use Vaping status: Never Used Substance and Sexual Activity Alcohol use: Not Currently Drug use: Never Sexual activity: Yes Partners: Male Other Topics Concern Not on file Social History Narrative Merged History Encounter Social Drivers of Health Financial Resource Strain: Low Risk (06/07/2024) Received from [facility] Overall Financial Resource Strain (CARDIA) Difficulty of Paying Living Expenses: Not hard at all Food Insecurity: No Food Insecurity (09/19/2024) Hunger Screening Food Insecurity - Worry: Never True Food Insecurity - Inability: Never True Transportation Needs: No Transportation Needs (06/07/2024) Received from [facility] PRAPARE - Transportation Lack of Transportation (Medical): No Lack of Transportation (Non-Medical): No Physical Activity: Sufficiently Active (06/07/2024) Received from [facility] Exercise Vital Sign Days of Exercise per Week: 5 days Minutes of Exercise per Session: 30 min Stress: No Stress Concern Present (06/07/2024) Received from [facility] [employer] Health - Occupational Stress Questionnaire Feeling of Stress : Not at all Social Connections: Socially Integrated (06/07/2024) Received from [facility] Social Connection and Isolation Panel [NHANES] Frequency of Communication with Friends and Family: More than three times a week Frequency of Social Gatherings with Friends and Family: Three times a week Attends [employer] Services: More than 4 times per year Active Member of Clubs or Organizations: Yes Attends Club or Organization Meetings: More than 4 times per year Marital Status: Interpersonal Safety: Not At Risk (04/09/2023) Received from [facility], [facility] Humiliation, Afraid, Rape, and Kick questionnaire Fear of Current or Ex-Partner: No Emotionally Abused: No Physically Abused: No Sexually Abused: No Housing Instability: Low Risk (06/07/2024) Received from [facility] Housing Stability Vital Sign Unable to Pay for Housing in the Last Year: No Number of Times Moved in the Last Year: 0 Homeless in the Last Year: No Review of Systems Review of Systems Constitutional: Negative. HENT: Negative. Eyes: Negative. Cardiovascular: Negative. Respiratory: Negative. Endocrine: Negative. Hematologic/Lymphatic: Negative. Skin: Negative. Musculoskeletal: Negative. Gastrointestinal: Negative. Genitourinary: Negative. Neurological: Negative. Psychiatric/Behavioral: Negative. Allergic/Immunologic: Negative. Vascular: Negative. CARDIOVASCULAR: Please review HPI. Physical Examination General appearance: Alert, oriented and cooperative. In no acute distress. Skin: Warm and dry to touch. Head: Normocephalic, without obvious abnormality, atraumatic. Eyes: Conjunctivae unremarkable, EOM intact. Neck: No JVD, No carotid bruit. Neck supple, trachea midline. Respiratory: Clear to auscultation bilaterally, no use of accessory muscles. Cardiovascular: RRR with normal S1 and S2 with no murmurs. Gastrointestinal: Soft, non-tender. Bowel sounds normal. Musculoskeletal: No peripheral edema. Neurologic: Oriented to time, person and place, affect appropriate. No focal/major motor defects noted. Psychiatric: Appropriate mood, memory and judgement. VITAL SIGNS: BP 122/76 Pulse 85 Ht 177.8 cm (5' 10 ) Wt 108 kg (238 lb) LMP 05/02/2024 SpO2 98% BMI 34.15 kg/m No orders of the defined types were placed in this encounter. Medications Discontinued During This Encounter Medication Reason calcium carb/mag/vitamin D3 (CORAL CALCIUM ORAL) calcium carb/mag/vitamin D3 (CORAL CALCIUM ORAL) metFORMIN XR (GLUCOPHAGE-XR) 500 mg 24 hr tablet 25/iron fum/folic/dha (-1 ORAL) IMPRESSIONS/PLAN 1. Long Q-T syndrome - [facility] - POCT EKG - [facility] - Electrophysiology - [place], [place]; Future 2. 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 mellitus without complication, unspecified whether terminal manager insulin use ([facility]) 1. Questionable long QT syndrome -she was just told since childhood she should be monitored for the possibility of this -I think EP should evaluate her once, and at least see if any further workup is necessary or does she even need continued follow-up any type of genetic testing needed? -in the meanwhile I told her about avoiding QT prolonging agents -Family history of sudden cardiac or known long QT syndrome and she has no cardiac symptoms 2. -currently at 18 weeks TODAYS ORDERS Orders Placed This Encounter Procedures [facility] Electrophysiology - [place], [place] POCT EKG FOLLOW UP No follow-ups on file. PCP: LILIANA Peralta Referring Physician: Svetlana Jack, GIRISH [address] [address] documented in this encounter [facility] 09-18-2024 Miscellaneous Notes Left message for patient to remind them to bring their most current medication list with them to their appointment. documented in this encounter [facility] 09-18-2024 Telephone encounter Note Left message for patient to remind them to bring their most current medication list with them to their appointment. [facility] 09-11-2024 Miscellaneous Notes Called and spoke to patient regarding lab results (CMP, protein creatinine ratio, and thyroid profile). Informed patient results were received from [facility] and Dr. Modi reviewed. Per Dr. Modi, all results within normal limits. Patient verbalizes understanding and denies further questions. documented in this encounter [facility] 09-11-2024 Telephone encounter Note Called and spoke to patient regarding lab results (CMP, protein creatinine ratio, and thyroid profile). Informed patient results were received from [facility] and Dr. Modi reviewed. Per Dr. Modi, all results within normal limits. Patient verbalizes understanding and denies further questions. [facility] 09-11-2024 History of Presen t illness Narrative Headache/epigastric pain/blurry vision/swelling? No Cramping/contractions? No Abnormal vaginal discharge? No Spotting or vaginal bleeding? No Loss or gush of fluid like your water may have broken? No Recent ER visits or hospitalizations? No Any concerns that you would like me to mention to the provider today? No REASON FOR OFFICE VISIT: Pre gestational type 2 diabetes on insulin. HISTORY OF PRESENT ILLNESS: Kellie Reyes is a pleasant 29 y.o. G 1 P0 at 17w0d due on Estimated Date of Delivery: 02/19/25 . has been complicated with Pre gestational type 2 diabetes on insulin. 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 Patient is comfortable with her plant maintenance supervisor. Blood glucose are adequately controlled. Currently NPH 15 units in the morning and 30 units at bedtime. Metformin 500 mg in the morning and 1000 mg at bedtime Suspected prolonged QT syndrome. Patient was told as a child so she might a borderline prolonged QT syndrome. No intervention was done. Patient then was lost for follow-up and has not seen wild life manager for more than 10 years. Patient is scheduled to see a wild life manager at her local hospital. Unlikely the patient has prolonged QT syndrome. Currently the patient has no complaints. The patient denies nausea, vomiting, abdominal pain, vaginal bleeding, SOB or chest pain. Patient Active Problem List Diagnosis Long Q-T syndrome Abnormal glucose Insulin resistance Mixed hyperlipidemia PCOS (polycystic ovarian syndrome) 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 mellitus without complication ([facility]) Long Q-T syndrome Pre-existing type 2 diabetes mellitus during in second trimester with type 2 diabetes mellitus in second trimester ALLERGIES: No Known Allergies CURRENT MEDICATIONS: Current Outpatient Medications: acetaminophen (acetaminophen Pain Relief) 500 mg tablet, Take 1 tablet (500 mg total) by mouth every 6 (six) hours as needed for pain., Disp: , Rfl: aspirin 81 mg, Take 1 tablet (81 mg total) by mouth in the morning., Disp: , Rfl: blood-glucose sensor (DEXCOM G7 SENSOR) device, Use to monitor blood glucose, Disp: 5 each, Rfl: 11 calcium carb/mag/vitamin D3 (CORAL CALCIUM ORAL), Take 1 tablet by mouth in the morning., Disp: , Rfl: insulin NPH isoph U-100 human (HumuLIN N KWIKPEN) 100 unit/mL (3 mL) insulin pen, Inject 15 Units in the morning and 34 Units in the evening (Patient taking differently: Inject 15 Units in the morning and 30 Units in the evening), Disp: 15 mL, Rfl: 6 metFORMIN (GLUCOPHAGE) 1000 mg tablet, Take 0.5 tablets (500 mg total) by mouth daily with breakfast. 500 mg (1/2 tablet) with breakfast and 1000 mg with supper, Disp: , Rfl: 25/iron fum/folic/dha (-1 ORAL), Take 2 tablets by mouth once daily., Disp: , Rfl: acetone, urine, test strip, Check urine for ketones if blood sugar/glucose 200 or above daily as needed. Use as directed., Disp: 50 strip, Rfl: 3 docosahexaenoic acid (DHA ORAL), Take 1 tablet by mouth once daily., Disp: , Rfl: MAGNESIUM CARBONATE ORAL, Take 1 tablet by mouth once daily., Disp: , Rfl: metFORMIN XR (GLUCOPHAGE-XR) 500 mg 24 hr tablet, Take 2 tablets by mouth daily. (Patient not taking: Reported on 09/11/2024), Disp: , Rfl: 0 Past Medical History: Diagnosis Date Diabetes mellitus ([facility]) Hyperlipidemia Insulin resistance Long Q-T syndrome Prolonged QT syndrome REVIEW OF SYSTEMS: Head and Neck: Negative for any dizziness and headaches. Cardiovascular and Respiratory System: Denies any chest pain, shortness of breath, and coughing. Abdominal and System: Denies any abdominal pain, nausea, vomiting, vaginal bleeding, and vaginal discharge REVIEW OF ULTRASOUND. Pertinent Ultrasound findings are see report. PHYSICAL EXAMINATION: BP 122/81 Pulse 80 Wt 108.4 kg (239 lb) LMP 05/02/2024 BMI 34.29 kg/m . Gravid abdomen, Respirations not labored. Normal gait well oriented in time place and person. RECOMMENDATION: 1. Since plant maintenance supervisor is managing her blood glucose [facility] will not participate in glucose management during . 2. Targeted anatomy with dedicated echocardiography at [facility] office in [place]. 3. Telemedicine visit in 4 weeks to discuss ultrasound and Cardiology appointment 4. At the moment patient is considered low risk and delivery at 39 weeks gestation via induction of labor at her local hospital based pre gestational type 2 diabetes Thank you for allowing me to participate in Kellie M Reyes care. If there are any questions, please do not hesitate to call me. Sincerely, CLARKE MODI MD documented in this encounter [facility] 09-05-2024 Miscellaneous Notes Called patient and left voicemail that Dr Modi reviewed Dexcom log and made no medication changes, she should continues on her current medication doses. Encouraged patient to call office if she has any questions. documented in this encounter [facility] 09-05-2024 Telephone encounter Note Called patient and left voicemail that Dr Modi reviewed Dexcom log and made no medication changes, she should continues on her current medication doses. Encouraged patient to call office if she has any questions. [facility] 09-01-2024 History of Presen t illness Narrative Associated Problem(s): with type 2 diabetes mellitus in second trimester During the appointment today all pertinent labs, imaging, health maintenance, and glucose readings were reviewed. Encouraged to check blood glucose throughout the day with some fasting and some PP readings. They are to bring their glucose meter/cgm in to all appointments. All of the patients questions, treatment options, and current care plan and goals were discussed. A copy of this along with pertinent instructions were given to the patient at the end of the appointment. The patient voices understanding of all of this and is to call in between appointments if they have any problems or questions. Kellie Reyes control is stable overall. , The patient is wearing their cgm on a daily basis and making decisions in regards to adjusting insulin daily as well for at least the last 60 days , Discussed dietary changes at length. Encouraged to limit simple carbs and focus more on healthy protein/fat with all meals and snacks. They should also avoid any sugary drinks. , Instructions given today include: Insulin instructions and Dietary education. I do suspect that she will need prandial insulin to improve her PP control but will try a few dietary changes first to see if they work. If not, will start prandial insulin. Will decrease NPH at night to prevent low bg overnight. Discussed increase in insulin resistance with around 20-22 weeks and risk for complications with if bg are not controlled. Goals are fasting < 95, 1 hr < 140, and 2 hr < 120. She is to send me a message every 1-2 weeks to go over her dexcom and make adjustments. Images from the original note were not included. Kellie Reyes is a 29 y.o. female presents with chief complaint of Gestational Diabetes HPI: Diabetes Mellitus Follow-up: Kellie Reyes is here for follow-up evaluation of diabetes mellitus. The initial diagnosis of insulin resistance was made at 8 years of age. 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 since December 2022 Diabetes complications: none She has been checking her blood glucose Dexcom G7 CGM- on a daily basis. She is dropping some overnight but does rise up to 140-180 after meals frequently. Last A1c: 6.4 (07/10/24) Last eye exam: Due Current concerns include: Last office visit 06/08/2024 Pt is 15 weeks gestation. Paying better attention to her diet. Eating frequent smaller meal. Forgets the morning dose of metformin several days a week Bg levels: higher the past 2 week Week and a half ago humulin N was increased to 34 units at pm by the [facility] [place] Diet: limiting carbs, sugars and increase protein Drinks: water, sugar free tea, diet pop Exercise: volleyball once a week Hypoglycemia: none Breakfast: croissant breakfast sandwich Lunch: SUBJECTIVE: PROBLEM LIST SOCIAL ALLERGIES: Patient Active Problem List Diagnosis Abnormal glucose Insulin resistance Long Q-T syndrome Mixed hyperlipidemia (CMS/HCC) PCOS (polycystic ovarian syndrome) Plantar wart of right foot Pure hyperglyceridemia (CMS/HCC) 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 mellitus without complication, without long-term current use of insulin (CMS/HCC) with type 2 diabetes mellitus in second trimester Social History Tobacco Use Smoking status: Never Smokeless tobacco: Never Substance Use Topics Alcohol use: Yes Comment: 3 or 4 drinks on typical day / monthly or less. Caffeine: 1-2 cups/day Drug use: Never No Known Allergies Synopsis SmartLink Latest Ref Rng & Units 09/01/2024 07/10/2024 16:04 06/08/2024 14:14 Antidiabetic medications Insulin NPH Human (Isophane) INJECT 15 UNITS AM 25 UNITS PM (100 UNIT/ML SUPN)-Discontinued INJECT 15 UNITS AM 25 UNITS PM (100 UNIT/ML SUPN) INJECT 15 UNITS AM 25 UNITS PM (100 UNIT/ML SUPN) Insulin NPH Human (Isophane) 15 units am and 34 units pm (100 UNIT/ML SUPN) -Discontinued (Dose adjustm) Insulin NPH Human (Isophane) 15 units am and 30 units pm (100 UNIT/ML SUPN) metFORMIN HCl 1/2 tablet in the am and 1 tablet in the evening (1000 MG TABS) 1/2 tablet in the am and 1 tablet in the evening (1000 MG TABS) 1/2 tablet in the am and 1 tablet in the evening (1000 MG TABS) Labs MHPT A1C <5.7 % of total Hgb 6.4 For someone without known diabetes, a hemoglobin A1c value between 5.7% and 6.4% is consistent with prediabetes and should be confirmed with a follow-up test. For someone with known diabetes, a value <7% indicates that their diabetes is well controlled. A1c targets should be individualized based on duration of diabetes, age, comorbid conditions, and other considerations. This assay result is consistent with an increased risk of diabetes. Currently, no consensus exists regarding use of hemoglobin A1c for diagnosis of diabetes for children. 6.2 Outpatient prescription Medication marked as long-term Patient-reported The ASCVD Risk score (Edilson DK, et al., 2019) failed to calculate for the following reasons: The 2019 ASCVD risk score is only valid for ages 40 to 79 REVIEW OF SYMPTOMS: Review of Systems Constitutional: Positive for fatigue. Negative for appetite change and unexpected weight change. Eyes: Negative for visual disturbance. Respiratory: Negative for cough, shortness of breath and wheezing. Cardiovascular: Negative for chest pain, palpitations and leg swelling. Neurological: Negative for numbness. Endocrine: Negative for polydipsia, polyphagia and polyuria. OBJECTIVE: 09/01/2024 8:54 AM 08/30/2024 4:08 PM 08/03/2024 8:36 AM Vitals BMI 34.44 kg/m2 34.58 kg/m2 35.3 kg/m2 Systolic 126 120 122 Diastolic 72 68 80 Heart Rate 92 Temp 98.5 F Height (in) 5' 10 Weight (lb) 240 241 246 Visit Report Report Physical Exam Constitutional: General: She is not in acute distress. Appearance: Normal appearance. Cardiovascular: Rate and Rhythm: Normal rate and regular rhythm. Heart sounds: No murmur heard. No friction rub. No gallop. Pulmonary: Breath sounds: Normal breath sounds. No wheezing, rhonchi or rales. Musculoskeletal: General: No swelling. Neurological: Mental Status: She is alert. ASSESSMENT AND PLAN: Problem List Items Addressed This Visit with type 2 diabetes mellitus in second trimester - Primary During the appointment today all pertinent labs, imaging, health maintenance, and glucose readings were reviewed. Encouraged to check blood glucose throughout the day with some fasting and some PP readings. They are to bring their glucose meter/cgm in to all appointments. All of the patients questions, treatment options, and current care plan and goals were discussed. A copy of this along with pertinent instructions were given to the patient at the end of the appointment. The patient voices understanding of all of this and is to call in between appointments if they have any problems or questions. Kellie Reyes control is stable overall. , The patient is wearing their cgm on a daily basis and making decisions in regards to adjusting insulin daily as well for at least the last 60 days , Discussed dietary changes at length. Encouraged to limit simple carbs and focus more on healthy protein/fat with all meals and snacks. They should also avoid any sugary drinks. , Instructions given today include: Insulin instructions and Dietary education. I do suspect that she will need prandial insulin to improve her PP control but will try a few dietary changes first to see if they work. If not, will start prandial insulin. Will decrease NPH at night to prevent low bg overnight. Discussed increase in insulin resistance with around 20-22 weeks and risk for complications with if bg are not controlled. Goals are fasting < 95, 1 hr < 140, and 2 hr < 120. She is to send me a message every 1-2 weeks to go over her dexcom and make adjustments. Follow up in about 6 weeks (around 10/13/2024) for Recheck. Patient's Medications New Prescriptions No medications on file Previous Medications ACETAMINOPHEN (TYLENOL) 500 MG TABLET Take 500 mg by mouth every 6 (six) hours if needed ACETONE, URINE, TEST (KETOSTIX) STRIP Check urine for ketones if blood sugar/glucose 200 or above daily as needed. Use as directed. ASPIRIN 81 MG EC TABLET Take 81 mg by mouth in the morning. CONTINUOUS GLUCOSE SENSOR (DEXCOM G7 SENSOR) MISC USE DIRECTED to test BLOOD SUGAR change EVERY TEN days INSULIN PEN NEEDLE (PEN NEEDLE 10/29 ) 31G X 5 MM MISC Use as instructed twice a day METFORMIN (GLUCOPHAGE) 1000 MG TABLET 1/2 tablet in the am and 1 tablet in the evening Modified Medications Modified Medication Previous Medication INSULIN NPH, ISOPHANE, (HUMULIN N KWIKPEN) 100 UNIT/ML INJECTION insulin NPH, Isophane, (HumuLIN N KWIKPEN) 100 UNIT/ML injection 15 units am and 30 units pm 15 units am and 34 units pm Discontinued Medications INSULIN NPH, ISOPHANE, (NOVOLIN N FLEXPEN) 100 UNIT/ML INJECTION INJECT 15 UNITS AM 25 UNITS PM I have reviewed and reconciled the history and medication list with the patient today. documented in this encounter [facility] 08-28-2024 Miscellaneous Notes Called pt to let er know that Dr Modi reviewed her dexcom and did not want to make any changes ts week. She should continue on her current medication doses. Pt verbalized understanding and she has an appt with her endo this Wednesday and she will be having her take care of her blood sugars for this . If she for some reason has her appt cancelled she will call and then we will pull her dexcom for next week. documented in this encounter [facility] 08-28-2024 Telephone encounter Note Called pt to let er know that Dr Modi reviewed her dexcom and did not want to make any changes ts week. She should continue on her current medication doses. Pt verbalized understanding and she has an appt with her endo this Wednesday and she will be having her take care of her blood sugars for this . If she for some reason has her appt cancelled she will call and then we will pull her dexcom for next week. [facility] 08-28-2024 Miscellaneous Notes error documented in this encounter [facility] 08-28-2024 Telephone encounter Note error [facility] 08-23-2024 History of Presen t illness Narrative REASON FOR OFFICE VISIT: Video Visit via Real-time Synchronous Audiovisual Provider Location: [facility] AT [address] [phone] Patient Location: Patient's home Video Visit Consent Statement: I discussed risks, benefits, and alternatives of a real-time synchronous audiovisual consultation with the patient (and any accompanying persons) including the risks that the patient's personal health details and medical records will be discussed over real-time, synchronous, interactive video/audio/telecommunication technology, the visit will not be recorded without the express consent of both the provider and the patient, and that there are some limitations compared to [id number] evaluations. The patient consented to the presence of additional virtual and/or in-person participants. We elected to proceed. 1. Type 2 DM for the past 1.5 years- prefers to have plant maintenance supervisor treat her DM in ; A1c 6.4% 07/10/24 2. PCOS 3. Prolonged QT HISTORY OF PRESENT ILLNESS: Kellie Reyes is a pleasant 28 y.o. at 14w2d due on Estimated Date of Delivery: 02/19/25. Currently the patient has no complaints. The patient denies nausea, vomiting, abdominal pain, vaginal bleeding, SOB or chest pain. She is being followed at [facility] due to Type 2 DM. See media for Dexcom clarity; average glucose 110 PAST OBSTETRICAL HISTORY: OB History 1 Para 0 Term 0 0 AB 0 Living SAB 0 IAB 0 Ectopic 0 Multiple Live Births SURGICAL HISTORY: Past Surgical History: Procedure Laterality Date ADENOIDECTOMY EXTERNAL EAR SURGERY INNER EAR SURGERY x3 TONSILLECTOMY WISDOM TOOTH EXTRACTION ALLERGIES: No Known Allergies CURRENT MEDICATIONS: Current Outpatient Medications: acetaminophen (acetaminophen Pain Relief) 500 mg tablet, Take 1 tablet (500 mg total) by mouth every 6 (six) hours as needed for pain., Disp: , Rfl: acetone, urine, test strip, Check urine for ketones if blood sugar/glucose 200 or above daily as needed. Use as directed., Disp: 50 strip, Rfl: 3 aspirin 81 mg, Take 1 tablet (81 mg total) by mouth in the morning., Disp: , Rfl: blood-glucose sensor (DEXCOM G7 SENSOR) device, Use to monitor blood glucose, Disp: 5 each, Rfl: 11 calcium carb/mag/vitamin D3 (CORAL CALCIUM ORAL), Take 1 tablet by mouth in the morning., Disp: , Rfl: clotrimazole (LOTRIMIN) 1 % cream, Apply 1 application topically 2 (two) times a day. FOR 7-10 DAYS, Disp: , Rfl: docosahexaenoic acid (DHA ORAL), Take 1 tablet by mouth once daily., Disp: , Rfl: insulin NPH isoph U-100 human (HumuLIN N KWIKPEN) 100 unit/mL (3 mL) insulin pen, Inject 15 Units in the morning and 28 Units in the evening, Disp: 15 mL, Rfl: 6 LEVORA-28 0.15-0.03 mg per tablet, TAKE 1 TABLET BY MOUTH DAILY, Disp: 84 tablet, Rfl: 0 MAGNESIUM CARBONATE ORAL, Take 1 tablet by mouth once daily., Disp: , Rfl: medroxyPROGESTERone (PROVERA) 10 mg tablet, Take 1 tablet (10 mg total) by mouth in the morning. (Patient not taking: Reported on 08/14/2024), Disp: , Rfl: metFORMIN (GLUCOPHAGE) 1000 mg tablet, Take by mouth daily with breakfast. 500 mg (1/2 tablet) with breakfast and 1000 mg with supper, Disp: , Rfl: metFORMIN XR (GLUCOPHAGE-XR) 500 mg 24 hr tablet, Take 2 tablets by mouth daily., Disp: , Rfl: 0 25/iron fum/folic/dha (-1 ORAL), Take 2 tablets by mouth once daily., Disp: , Rfl: LABS: No results found for: GLUF , MICROALBUR , LDLCALC , CREATININE No results found for: TSH , T3 , TOTALT4 , THYROIDAB No results found for: [id number] No results found for: CREATININE , BUN , NA , K , CL , CO2 No results found for: ALT , AST , GGT , ALKPHOS , LABBILI Lab Results Component Value Date HGBA1C 6.4 (A) 07/10/2024 No components found for: CBC No components found for: CMP No components found for: VITD No components found for: ULTRASOUND REVIEW OF SYSTEMS: Head and Neck: Negative for any dizziness and headaches. Cardiovascular and Respiratory System: Denies any chest pain, shortness of breath, and coughing. Abdominal and System: Denies any abdominal pain, nausea, vomiting, vaginal bleeding, and vaginal discharge PHYSICAL EXAMINATION: LMP 05/02/2024 Gravid abdomen, Alert & Oriented, Respirations not labored, steady gait. DISCUSSION: Type 2 DM. Recommended carbohydrate allocation ranges: 30-45 g for breakfast, 45-60 g for lunch and dinner, and 15-g snacks roughly 2-3 hours after each meal. A1c less than 6% has the lowest risk for LGA infant SUMMARY/RECOMMENDATION: The following is a summary of our recommendations: 1. Initial blood work:reminded of future orders in place- recommended before 09/11 appointment A1c each trimester CMP Vitamin D Urine P/C ratio LDH TSH 2. Medication: ASA 81mg PO daily Evening NPH increased to 34 units in the evening Other medications as above 3. Referrals: Dental plans q 6 months Eye, plans for yearly 3. testing: anatomy scan with echo scheduled 09/25/24 NST twice weekly at 32 weeks with DVP weekly growth ultrasounds every 4 weeks after 28 weeks growth scan one week before planned delivery if attempt for a vaginal delivery 4. Delivery timing: Consider planned delivery at 39 weeks or before if indicated Use 1/2 dose of insulin the night before her planned delivery. 5. Mode of delivery vaginal as long as EFW is less than 4500 grams 6. Follow-up appointment: 09/11/24 - wants to have dexcom reviewed by provider weekly until set up with plant maintenance supervisor 25 Minutes spent [id number]; more than 50% of time spent counseling and/or coordinating care with additional time for record review and communication to referring provider. GABBY Ledesma 08/23/24 1424 documented in this encounter [facility] 08-14-2024 History of Presen t illness Narrative Maternal- Medicine Consultation HISTORY OF PRESENT ILLNESS: Kellie Reyes is a 28 y.o. female at 13w0d due on Estimated Date of Delivery: 02/19/25 complicated by type 2 diabetes, PCOS, prolonged QT Patient is feeling well today however still having mild nausea. No vomiting and nausea has been gradually improving. She denies abdominal pain, vaginal bleeding. BG log review: F: 102, 114, 128, 125,125 PPB: 187 PPL: 112 PPD: 123 Patient was diagnosed with insulin resistance as a teenager, officially with type 2 diabetes 1.5 years ago. She was on metformin intermittently during teenage and early adult years. For her diabetes now, she is currently taking NPH 15u in AM, 25u in PM and metformin 500mg QAM , 1000mg QPM. She was previously taking jardiance and mounjaro for her diabetes, but stopped these over 1 year ago due to trying to conceive. At that time one year ago, she was started on metformin and NPH. During her 6 months on mounjaro and jardiance, she lost about 20 lbs. Since then, she has gained about 10 lbs back. Denies any values <60 day or night Reviewed typical diet - Breakfast: breakfast sandwich Lunch: sandwich and/or polish yogurt with fruit and granola Dinner: meat and starch Patient reports she was found to have prolonged QT in high school when sadly one of her classmates of sudden cardiac arrest and the school had EKG's performed on all students. When patient had an abnormal EKG , she was referred to cardiology. She saw Dr Torres - avi patient, was told that only with QT prolongation during stress test, not routine EKG's. She was never told she needs a medication/beta lilo. She has never had any symptoms of palpitations, chest pain, or syncope. She has not seen cardiology since she was a teenager. Has not had genetic testing for congenital QT, no FH of prolonged QT. Was not on any known QT prolongation medications at time of dx. Her mother is with her today, and reports she has had EKG's done and was told they are normal. Denies h/o cHTN or any other known chronic medical problems. LMP 05/02/2024 PAST OBSTETRICAL HISTORY: OB History 1 Para Term AB Living SAB IAB Ectopic Multiple Live Births Past Medical History: Diagnosis Date Diabetes mellitus ([facility]) Hyperlipidemia Insulin resistance Prolonged QT syndrome SURGICAL HISTORY: Past Surgical History: Procedure Laterality Date INNER EAR SURGERY x3 WISDOM TOOTH EXTRACTION ALLERGIES: No Known Allergies CURRENT MEDICATIONS: Current Outpatient Medications: acetaminophen (acetaminophen Pain Relief) 500 mg tablet, Take 1 tablet (500 mg total) by mouth every 6 (six) hours as needed for pain., Disp: , Rfl: calcium carb/mag/vitamin D3 (CORAL CALCIUM ORAL), Take 1 tablet by mouth in the morning., Disp: , Rfl: docosahexaenoic acid (DHA ORAL), Take 1 tablet by mouth once daily., Disp: , Rfl: insulin NPH (HumuLIN N,NovoLIN N) 100 unit/mL injection, Inject 0.15 mL (15 Units total) under the skin in the morning and 0.15 mL (15 Units total) in the evening. Inject with meals. 15 Units in the morning and 25 Units in the evening daily ., Disp: , Rfl: MAGNESIUM CARBONATE ORAL, Take 1 tablet by mouth once daily., Disp: , Rfl: medroxyPROGESTERone (PROVERA) 10 mg tablet, Take 1 tablet (10 mg total) by mouth in the morning. (Patient not taking: Reported on 08/14/2024), Disp: , Rfl: metFORMIN (GLUCOPHAGE) 1000 mg tablet, Take by mouth daily with breakfast. 500 mg (1/2 tablet) with breakfast and 1000 mg with supper, Disp: , Rfl: 25/iron fum/folic/dha (-1 ORAL), Take 2 tablets by mouth once daily., Disp: , Rfl: Lab Results Component Value Date HGBA1C 6.4 (A) 07/10/2024 No components found for: POCA1C REVIEW OF SYSTEMS: Head and Neck: Negative for any dizziness and headaches. Cardiovascular and Respiratory System: Denies any chest pain, shortness of breath, and coughing. Abdominal and System: Denies any abdominal pain, nausea, vomiting, vaginal bleeding, and vaginal discharge PHYSICAL EXAMINATION: Gen: NAD Abdomen: Gravid, non tender, +FHTs DISCUSSION Diagnosis of type 2 diabetes: mid 2022 Pre- medication: dino ayon We reviewed the implications and risks of diabetes in . Diabetes in is associated with poorer outcomes if blood glucose levels are not well controlled. Potential effects of uncontrolled diabetes , or hyperglycemia, include: macrosomia, hypoglycemia, shoulder dystocia, delivery by section, polyhydramnios, and demise. In addition, women with diabetes in are at increased risk of developing hypertension diseases in ,such as gestational hypertension, or preeclampsia. Patient was explained that the high risk of shoulder dystocia in fetuses with EFW 4500 gm or higher. Long-term risk to offspring from poor maternal glycemic control include: obesity, cardiovascular disease, impaired glucose tolerance and 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. Hyperglycemia early in , at the time of conception, is associated with an increased risk of congenital anomalies. The most common anomalies seen are heart defects and neural tube defects. Increased risk for congenital anomalies increases with increasing A1c. Goal A1c is less than 6.0. Treatment for diabetes in : Lifestyle modification with a healthy diet and increasing physical activity can help manage hyperglycemia, and is therefore always encouraged. We briefly discussed diet modifications and physical activity. The mainstay of pharmacotherapy for the treatment of diabetes in remains insulin. Oral hypoglycemics, such as metformin, both cross the placenta and are more likely to fail compared to insulin. terminal clerk data on children whose mothers took oral hypoglycemic agents while is limited. Medication is typically initiated when >20-30% of the blood glucose values in one week are out of range. Risks and side effects of both insulin and oral agents were discussed. In discussion of the above, patients opts to continue medications she is on, which I support given her A1c Glucose goals in : Fasting 60 - 95: Mean fasting glucose values are important in managing diabetes in women because they provide overall glycemic estimate, and are predictive of increased fat mass in the women s offspring. Increased fat mass has been shown to be associated with the development of childhood obesity, and diabetes. One hour postprandial 90 - 140: Postprandial measurements are important in management of diabetes in because they are associated with incidence of large for gestational age infants, and lower rates of delivery for cephalopelvic disproportion when well controlled. Discussed monitoring for hypogylcemia, signs/symptoms of hypoglycemia, and examples of treatment of hypoglycemia (15/15 rule). Discussed her current diet and her awareness of grams of carbohydrate per meal. Reviewed recommendations - 30g carbohydrate for breakfast, 45-60g carbohydrate for lunch and dinner, 15g carbohydrate for snacks, incorporating sufficient protein with each meal and ideally having half of plate be fruits and vegetables (with awareness of which fruits typically spike blood glucose). Encouraged her to be aware of carbohydrate intake and note which foods causing values above goal. Encouraged her on diet modifications. Current blood glucose control: elevated fastings, A1c near goal though. Minimal to no post prandial data Labs - A1c - 6.4 on 07/10/24 . Repeat q trimester - Baseline preeclampsia labs: CMP, Plts, urine P/C ratio - orders placed - TSH - order placed if has not had drawn in past year PLAN - Medication: - NPH 15u in AM, 25 units in PM - increase PM dose to 28 units. Will need more post prandial data to determine AM dose - Would like to continue metformin 500mg qam, 1000mg qpm - Start aspirin 81mg once daily - Detailed anatomy survey and echocardiogram with MFM at 20 weeks, will get scheduled - growth ultrasounds every 4 weeks after 28 weeks, which can be done with primary OB - Recommend the following for testing, which can be done with primary OB: - NST twice weekly and DL once weekly at 32 weeks - Ophthalmology for diabetic eye exam - referral placed - Delivery recommendations : - Recommend delivery at 92w6d-37w7p - Poorly controlled, vascular complications, or h/o prior IUFD: 36w0d - 38w6d - Discuss delivery if estimated weight is >4500g - Will discuss insulin dosing surrounding delivery at later gestation - Monitor patient's BG every 4hrs during latent labor, every 1 hr during active labor with goal BG to be less than 140mg/dl. Can use insulin sliding scale prn hyperglycemia. Once delivered, checked blood glucose fasting and 1hr post prandial, with goal of 100-130mg/dl for fasting and <180mg/dl for random or post prandial blood glucose levels - Assure patient has follow up with her PCP or plant maintenance supervisor within 4 weeks after delivery - Recommend avoidance of medications with prolonged QT effects - patient has list of medication. Check CMP - Recommend patient re-establish care with cardiology. Referral placed - will determine if need for telemetry during labor/24hrs pending cardiology and further evaluation - avoid excessive bleeding at delivery - Repeat EKG Follow up in 1 week with Maternal- Medicine given lack of post prandial data. Will also get scheduled for [facility] MD appt to further discuss diabetes and cardiac history. Will get scheduled for anatomy survey I request she keep sending values to us weekly by e-mail to: [email or web address] or by fax to: [phone] Svetlana Jack PA-C Maternal- Medicine Office phone: [phone] Svetlana Jack PA-C 08/14/24 1246 Headache/epigastric pain/blurry vision/swelling? Patient states she has headaches once a week. Cramping/contractions? no Abnormal vaginal discharge? no Spotting/vaginal bleeding? no Loss or gush of fluid like your water may have broken? no Do you have cats at home? no Do you change the litter box (reason: risk of toxoplasmosis)? N/a Genetic testing done this here or other office? no Have you been seen here at [facility] in a previous ? no Recent ER visits or hospitalizations? no Bring blood sugar log or meter with you today? (Please bring them with you for every visit at [facility]) yes Flu vaccine (Jun-October)? no Any concerns that you would like me to mention to the provider today? no documented in this encounter [facility] 08-14-2024 History of Presen t illness Narrative DIABETES AND ASSESSMENT Type of diabetes: Type 2 Diabetes Age at onset: 27 Duration: 1 1/2 years Still : OB History Para Term AB Living 1 0 0 0 0 0 SAB IAB Ectopic Multiple Live Births 0 0 0 0 0 Patient's last menstrual period was 05/02/2024. 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 Name: Dr. Jori Delatorre City: [place]: [facility] [place] Last time seen: 08/03/24 Last time seen: Last time seen: 06/08/2024 Eye Doctor Dentist Other Doctors Name: Name: [facility] Name: City: [facility]: [place]: Last time seen: never Last time seen: 01/06/2024 Last time seen: OB History Para Term AB Living 1 SAB IAB Ectopic Multiple Live Births # Outcome Date GA Lbr Giorgio/2nd Weight Sex Type Anes PTL Lv 1 Current No Known Allergies Current Outpatient Medications Medication Sig Dispense Refill acetaminophen (acetaminophen Pain Relief) 500 mg tablet Take 1 tablet (500 mg total) by mouth every 6 (six) hours as needed for pain. calcium carb/mag/vitamin D3 (CORAL CALCIUM ORAL) Take 1 tablet by mouth in the morning. docosahexaenoic acid (DHA ORAL) Take 1 tablet by mouth once daily. insulin NPH (HumuLIN N,NovoLIN N) 100 unit/mL injection Inject 0.15 mL (15 Units total) under the skin in the morning and 0.15 mL (15 Units total) in the evening. Inject with meals. 15 Units in the morning and 25 Units in the evening daily . MAGNESIUM CARBONATE ORAL Take 1 tablet by mouth once daily. metFORMIN (GLUCOPHAGE) 1000 mg tablet Take by mouth daily with breakfast. 500 mg (1/2 tablet) with breakfast and 1000 mg with supper 25/iron fum/folic/dha (-1 ORAL) Take 2 tablets by mouth once daily. medroxyPROGESTERone (PROVERA) 10 mg tablet Take 1 tablet (10 mg total) by mouth in the morning. (Patient not taking: Reported on 08/14/2024) No current facility-administered medications for this visit. Previous Hospitalizations None Past Surgical History: Procedure Laterality Date INNER EAR SURGERY x3 WISDOM TOOTH EXTRACTION Personal diabetes history: Gestational Diabetes Unanswered Diabetes mellitus Yes Family History of diabetes: pertinent family history includes Diabetes in her father and sister. ROS: Constitutional: Fatigue; Dried skin Head and Neck: No problems Lungs and breathing: No problems Heart:: High cholesterol Blood disorders and other conditions: No problems Mental health: No problems Kidney, Bladder, and Sexual History: Fertility issues Circulation and Nerves: No problems Endocrine and Diabetes Conditions: Diabetes (Type 2), Insulin resistance, and Polycystic ovarian syndrome (PCOS) Stomach and Intestines: Nausea/vomiting, Constipation, and Change in bowel movements Educational Level: Preferred Methods for Learning: Listening/Verbal directions, Reading, Watching someome do it first, and Hands on demonstration Is there anything about your culture, caodaism, or personal beliefs we need to know about to care for you: Other None Primary Language spoken: Marshallese [22] Primary Language for learning: Marshallese Are you currently in a relationship where you are physically hurt, threatened or made to fee afraid? [] Yes [] No Screen Tender Helper needed? [] Yes [] No Marital status/Living arrangements [x] [] Single [] Partner [] Father of baby [] Friend [] Parent(s) [] Other family member [] Self Social History Social History Socioeconomic History Marital status: Spouse name: Not on file Number of children: Not on file Years of education: Not on file Highest education level: Not on file Occupational History Not on file Tobacco Use Smoking status: Never Smokeless tobacco: Never Substance and Sexual Activity Alcohol use: Not Currently Drug use: Never Sexual activity: Yes Partners: Male Other Topics Concern Not on file Social History Narrative Not on file Social Drivers of Health Financial Resource Strain: Not on file Food Insecurity: No Food Insecurity (08/14/2024) Hunger Screening Food Insecurity - Worry: Never True Food Insecurity - Inability: Never True Transportation Needs: Not on file Physical Activity: Not on file Stress: Not on file Social Connections: Not on file Interpersonal Safety: Not on file Housing Instability: Not on file Eating Schedule - What time do you: See Schedule Work day Day off Other (including weekends) Start your day Eat breakfast Eat lunch Eat dinner Eat snacks Go to bed Exercise Everyday Stress Level Stress Scale [] 1 Low [x] 2 [] 3 [] 4 [] 5 High Stress related to: work Support systems: Good Comfort Level Are you currently experiencing any pain? [] Yes [x]No If yes, where: On thge following scale, washoe the number, which describes your current level of pain. [] 0 [] 1 [] 2 [] 3 [] 4 [] 5 [] 6 [] 7 [] 8 [] 9 [] 10 No Pain Worst Pain Possible How long does the pain last?: What do you do to help the pain go away? PLEASE COMPLETE THE FOLLOWING QUESTIONS - IF YOU HAVE DIABETES NOW OR HAVE HAD WITH A PREVIOUS HAVE YOU HAD ANY OF THE FOLLOWING SYMPTOMS OF LOW BLOOD SUGARS - Denies Shaky [] Yes [] No Irritability [] Yes [] No Heart Palpitations [] Yes [] No Nervousness [] Yes [] No Cold sweats [] Yes [] No Headache [] Yes [] No Passed out [] Yes [] No Dizzy [] Yes [] No Confusion [] Yes [] No Seizures [] Yes [] No What do you use to treat your low blood sugars? Diabetes Testing and Medication Use Yes No Do you currently use a glucose testing meter? If yes, how often do you test? Four times daily [x] [] Did you take insulin during any of these previous pregnancies? [] [x] Have your insulin reactions (low blood sugars) changed in any way recently? N/A If yes, please describe how they have changed. [] [] Do you have a Glucagon kit and are you familiar with its use? [] [x] Have you been told told that you have any complications from diabetes? If yes, please describe: [] [x] Do you check your feet? If yes, how often? Daily [x] [] Do you have foot problems? If yes, what kind? [] [x] Have you ever received any diabetic education? If yes, where and when: Dietitians [place] (elementary) and [facility] (a few years ago) [x] [] . Nutritional Assessment Form Date: 08/14/2024 DAVY: Estimated Date of Delivery: 02/19/25 EGA: 13w0d Past Medical History: Diagnosis Date Diabetes mellitus ([facility]) Hyperlipidemia Insulin resistance Prolonged QT syndrome OB History 1 Para Term AB Living SAB IAB Ectopic Multiple Live Births Current Outpatient Medications Medication Sig Dispense Refill acetaminophen (acetaminophen Pain Relief) 500 mg tablet Take 1 tablet (500 mg total) by mouth every 6 (six) hours as needed for pain. calcium carb/mag/vitamin D3 (CORAL CALCIUM ORAL) Take 1 tablet by mouth in the morning. docosahexaenoic acid (DHA ORAL) Take 1 tablet by mouth once daily. insulin NPH (HumuLIN N,NovoLIN N) 100 unit/mL injection Inject 0.15 mL (15 Units total) under the skin in the morning and 0.15 mL (15 Units total) in the evening. Inject with meals. 15 Units in the morning and 25 Units in the evening daily . MAGNESIUM CARBONATE ORAL Take 1 tablet by mouth once daily. metFORMIN (GLUCOPHAGE) 1000 mg tablet Take by mouth daily with breakfast. 500 mg (1/2 tablet) with breakfast and 1000 mg with supper 25/iron fum/folic/dha (-1 ORAL) Take 2 tablets by mouth once daily. medroxyPROGESTERone (PROVERA) 10 mg tablet Take 1 tablet (10 mg total) by mouth in the morning. (Patient not taking: Reported on 08/14/2024) No current facility-administered medications for this visit. Present MNT Therapy: regular Insulin Therapy: NPH/metformin Date started: Anthropometric Data: Height: Ht Readings from Last 1 Encounters: 08/14/24 177.8 cm (5' 10 ) Pre- Wt: 109.8 kg (242 lb) Pre- BMI: 34.72 Current BMI: Body mass index is 34.72 kg/m . Pre Wt. Category: obese Current Weight: Wt Readings from Last 1 Encounters: 08/14/24 109.8 kg (242 lb) Weight Gain Goals: 11-20# Lab Data: BP BP Readings from Last 1 Encounters: No data found for BP Hgb Hct OGCT OGTT HgA1C SMBG: Frequency : Testing Times: Glucose meter: Records Kept? [] Yes [] No Lifestyle Factors: Occupation of the mother: Substance Abuse: Living Conditions Hours worked per week 40 hours weekly Educational Level bachelors degree Family issues stable Cultural/ethnic/jehovah's witness influences denies Exercise approved by MD? Yes Current Exercise program barre/volleyball Who prepares the meal pt Who purchase food at your home? pt Equipment use for cooking/food storage has all Food Assistance(Ex.WIC, Food [place]) declined Dining out Yes 3 times per week Appetite/Appetite changes decreased Weight History loosing with monjaro Do you have cats at home? Feeding Plans Breast Feeding If you have cats, who cleans the litter box? Cravings/Aversions/Pica breakfast food Nutrition Assessment Worksheet: Week/Weekend Food Recall Breakfast Breakfast sandwich Or protein bar/ shake Snack Lunch Lunch meat and cheese stick Cam[place]onian yogurt w/ berries and granola or salad Snack Protein bar Or chips Or fruit Dinner Meat + starch Snack Snack Time Kellie Marin presents for diet instruction per doctor order secondary to diagnosis of 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 in . Noted history of PCOS and insulin resistance. Food recall suggests patient typically consumes a diet of mainly healthy choices. Pt has gained 0# to date. Based on patient's stated pre- weight, weight gain goal is 11-20#. Nutrition diagnosis: inconsistent carbohydrate intake related to lack of nutrition knowledge as evidenced by patient's food recall. Instructed patient in 2200 kcal meal plan of 3 meals and 3 snacks, carbohydrate counting, label reading, dining out, and portion control. Discussed foods rich in iron and calcium. Encouraged patient to limit dining out and measure food for 2 days. Reviewed exercise guidelines with patient given provider approval. Pt expressed understanding with counting carbohydrates and agreed to send RD a 2 day food log. Please refer to health habits for other goals. Patient understands that we will follow up weekly with a phone call to review progress. Face to face time 30 minutes. documented in this encounter [employer] 08-03-2024 History of Presen t illness Narrative Subjective No chief complaint on file. Kellie Reyes is a 28 y.o. at 11w3d with a working estimated date of delivery of 02/19/2025, by Ultrasound who presents for a routine visit. She denies vaginal bleeding, leakage of fluid, decreased movements, and contractions. OB History Para Term AB Living 1 0 0 0 0 0 SAB IAB Ectopic Multiple Live Births 0 0 0 0 0 # Outcome Date GA Lbr Giorgio/2nd Weight Sex Type Anes PTL Lv 1 Current Her is complicated by: type 2 diabetes, insulin dependent. Sees Dr Crowley for diabetes. The following portions of the chart were reviewed this encounter and updated as appropriate: Objective Physical Exam weight: 246 lb, Pregravid BMI: 35.30 Expected Total Weight Gain: 11 lb-19 lb BP: 122/80 Labs Imaging Assessment/Plan Diagnoses and all orders for this visit: Encounter for care of first , first trimester 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 mellitus with hyperosmolarity without coma, without long-term current use of insulin ([facility]) Urine protein-negative Urine glucose-negative Continue vitamin. Labs reviewed. Patient states she has been watching her sugar closely but states I could do better. We did discuss the importance of maintaining good glucose control in and she does have an appt with [facility] on 08/14/24. Follow up in 4 weeks for a routine visit. documented in this encounter [facility] 07-10-2024 History of Presen t illness Narrative Subjective No chief complaint on file. Kellie Reyes is a 28 y.o. at 8w0d with a working estimated date of delivery of 02/19/2025, by Ultrasound who presents for a routine visit. She denies vaginal bleeding, leakage of fluid, decreased movements, and contractions. OB History Para Term AB Living 1 0 0 0 0 0 SAB IAB Ectopic Multiple Live Births 0 0 0 0 0 # Outcome Date GA Lbr Giorgio/2nd Weight Sex Type Anes PTL Lv 1 Current Her is complicated by: The following portions of the chart were reviewed this encounter and updated as appropriate: @[facility] StyleST. VINCENT FISHERS HOSPITALFutura Medical([id number],TOBYESPROV )@@RULESMARTLINK([id number],ALGYESPR OV)@@RULESM ARTLINK([id number],MEDYESPROV)@@RULE SMARTLINK([id number],PROBYESPROV)@@R SAE Browning([id number],MHYESPROV)@@RULESMARTLI NK([id number],SHYESPROV)@@RULESMARTL INK([id number], FHYESPROV)@@RULESMARTLINK([id number] ,SOHYESPROV)@ Objective Physical Exam weight: 246 lb, Pregravid BMI: 35.30 Expected Total Weight Gain: 11 lb-19 lb BP: 120/76 Labs Imaging Assessment/Plan Urine protein-negative Urine glucose-negative Continue vitamin. Labs reviewed. Order placed for anatomy scan at 20 weeks. Follow up in 4\ weeks for a routine visit. documented in this encounter [facility] 06-08-2024 History of Presen t illness Narrative Associated Problem(s): 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 mellitus without complication, without long-term current use of insulin ([facility]) During the appointment today all pertinent labs, imaging, health maintenance, and glucose readings were reviewed. Encouraged to check blood glucose throughout the day with some fasting and some PP readings. They are to bring their glucose meter/cgm in to all appointments. All of the patients questions, treatment options, and current care plan and goals were discussed. A copy of this along with pertinent instructions were given to the patient at the end of the appointment. The patient voices understanding of all of this and is to call in between appointments if they have any problems or questions. Kellie Reyes is doing very well and encouraged on this. , Will stay on current medications. She is trying to get and bg are in a good range and she is on safe medications for this. Images from the original note were not included. Kellie Reyes is a 28 y.o. female presents with chief complaint of Diabetes HPI: Diabetes Mellitus Follow-up: Kellie Reyes is here for follow-up evaluation of diabetes mellitus. The initial diagnosis of insulin resistance was made at 8 years of age. 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 since December 2022 Diabetes complications: none She has been checking her blood glucose 1-2 times a day consistently. Bg running 120's in the am and sometimes before bed it runs 140-160. Last A1c: 6.4 on 02/28/24 Last eye exam: Due Current concerns include: Trying to get . States her bg levels are similar if not better than her last visit. The past month she has been working out 5 days a week Diet: limiting carbs, sugars and increase protein Drinks: water, sugar free tea, diet pop, once a week sweetened coffee from a shop Exercise: cardio, weights volleyball once a week Hypoglycemia: none SUBJECTIVE: PROBLEM LIST SOCIAL ALLERGIES: Patient Active Problem List Diagnosis Abnormal glucose Insulin resistance Long Q-T syndrome Mixed hyperlipidemia (CMS/HCC) PCOS (polycystic ovarian syndrome) Plantar wart of right foot Pure hyperglyceridemia (CMS/HCC) 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 mellitus without complication, without long-term current use of insulin (CMS/HCC) Social History Tobacco Use Smoking status: Never Smokeless tobacco: Never Substance Use Topics Alcohol use: Yes Comment: 3 or 4 drinks on typical day / monthly or less. Caffeine: 1-2 cups/day Drug use: Never No Known Allergies Synopsis [facility] 06/08/2024 14:14 05/29/2024 00:00 Antidiabetic medications Insulin NPH Human (Isophane) 15 units in the am and 25 units at night (100 UNIT/ML SUPN) -Discontinued Insulin NPH Human (Isophane) INJECT 15 UNITS AM 25 UNITS PM (100 UNIT/ML SUPN) INJECT 15 UNITS AM 25 UNITS PM (100 UNIT/ML SUPN) metFORMIN HCl 1/2 tablet in the am and 1 tablet in the evening (1000 MG TABS) 1/2 tablet in the am and 1 tablet in the evening (1000 MG TABS) Labs MHPT A1C 6.2 Outpatient prescription Medication marked as long-term REVIEW OF SYMPTOMS: Review of Systems Constitutional: Negative for appetite change, fatigue and unexpected weight change. Eyes: Negative for visual disturbance. Respiratory: Negative for cough, shortness of breath and wheezing. Cardiovascular: Negative for chest pain, palpitations and leg swelling. Neurological: Negative for numbness. Endocrine: Negative for polydipsia, polyphagia and polyuria. OBJECTIVE: 06/08/2024 2:04 PM 02/28/2024 3:05 PM 01/04/2024 1:08 PM Vitals BMI 35.01 kg/m2 34.15 kg/m2 35.44 kg/m2 Systolic 138 122 130 Diastolic 72 64 80 Heart Rate 87 90 Temp 98.5 F 98.3 F Height (in) 5' 10 5' 10 Weight (lb) 244 238 247 Visit Report Report Report Report Physical Exam Constitutional: General: She is not in acute distress. Appearance: Normal appearance. She is obese. Cardiovascular: Rate and Rhythm: Normal rate and regular rhythm. Heart sounds: No murmur heard. No friction rub. No gallop. Pulmonary: Breath sounds: Normal breath sounds. No wheezing, rhonchi or rales. Musculoskeletal: General: No swelling. Neurological: Mental Status: She is alert. ASSESSMENT AND PLAN: Problem List Items Addressed This Visit 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 mellitus without complication, without long-term current use of insulin ([facility]) During the appointment today all pertinent labs, imaging, health maintenance, and glucose readings were reviewed. Encouraged to check blood glucose throughout the day with some fasting and some PP readings. They are to bring their glucose meter/cgm in to all appointments. All of the patients questions, treatment options, and current care plan and goals were discussed. A copy of this along with pertinent instructions were given to the patient at the end of the appointment. The patient voices understanding of all of this and is to call in between appointments if they have any problems or questions. Kellie Reyes is doing very well and encouraged on this. , Will stay on current medications. She is trying to get and bg are in a good range and she is on safe medications for this. Relevant Orders POCT glycosylated hemoglobin (Hb A1C) docked device (Completed) Follow up in about 4 months (around 10/09/2024) for Recheck. Patient's Medications New Prescriptions No medications on file Previous Medications INSULIN NPH, ISOPHANE, (NOVOLIN N FLEXPEN) 100 UNIT/ML INJECTION INJECT 15 UNITS AM 25 UNITS PM INSULIN PEN NEEDLE (PEN NEEDLE 10/29 ) 31G X 5 MM MISC Use as instructed twice a day MEDROXYPROGESTERONE (PROVERA) 10 MG TABLET Take 1 tablet (10 mg) by mouth Daily Take 1 tablet by mouth daily for 7 days beginning on day 1 of menstrual cycle. Begin on the first day of bleeding. . METFORMIN (GLUCOPHAGE) 1000 MG TABLET 1/2 tablet in the am and 1 tablet in the evening Modified Medications No medications on file Discontinued Medications No medications on file I have reviewed and reconciled the history and medication list with the patient today. documented in this encounter [facility] 05-03-2024 Telephone encounter Note Emanuel from [employer] calling to clarify directions for letrozole 2.5mg. It has 2 different sets of directions one tab per day/2 tabs per day. Emanuel will take a verbal [phone]. Thank you. [facility] 05-03-2024 Miscellaneous Notes Emanuel from [employer] calling to clarify directions for letrozole 2.5mg. It has 2 different sets of directions one tab per day/2 tabs per day. Emanuel will take a verbal [phone]. Thank you. documented in this encounter [facility] Evaluation note Diagnosis 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 mellitus without complication, without long-term current use of insulin (CMS/HCC)- Primary 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 mellitus without complication, without long-term current use of insulin (CMS/HCC) 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 mellitus without complication, without long-term current use of insulin (CMS/HCC) 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 mellitus without complication, without long-term current use of insulin (CMS/HCC) 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 mellitus without complication, without long-term current use of insulin (CMS/HCC) documented in this encounter [facility]* Diagnosis 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 mellitus without complication, without long-term current use of insulin (CMS/HCC)- Primary 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 mellitus without complication, without long-term current use of insulin (CMS/HCC) 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 mellitus without complication, without long-term current use of insulin (CMS/HCC) 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 mellitus without complication, without long-term current use of insulin (CMS/HCC) 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 mellitus without complication, without long-term current use of insulin (CMS/HCC) Encounter for care of first , first trimester- Primary documented in this encounter [facility]* Diagnosis 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 mellitus without complication, without long-term current use of insulin (CMS/HCC)- Primary 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 mellitus without complication, without long-term current use of insulin (CMS/HCC) 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 mellitus without complication, without long-term current use of insulin (CMS/HCC) 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 mellitus without complication, without long-term current use of insulin (CMS/HCC) 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 mellitus without complication, without long-term current use of insulin (CMS/HCC) Encounter for care of first , first trimester- Primary 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 mellitus with hyperosmolarity without coma, without long-term current use of insulin (CMS/HCC) documented in this encounter [facility]* Diagnosis Pre-existing type 2 diabetes mellitus in in first trimester [facility] Diagnosis with type 2 diabetes mellitus in second trimester- Primary Long Q-T syndrome Long QT syndrome documented [facility]* Diagnosis with type 2 diabetes mellitus in second trimester- Primary documented [facility]* Diagnosis with type 2 diabetes mellitus in second trimester- Primary documented in [facility]* Diagnosis 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 mellitus without complication, unspecified whether terminal manager insulin use ([facility])- Primary documented in [facility] encounter [facility]* Diagnosis 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 mellitus without complication, without long-term current use of insulin (CMS/HCC)- Primary 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 mellitus without complication, without long-term current use of insulin (CMS/HCC) 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 mellitus without complication, without long-term current use of insulin (CMS/HCC) 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 mellitus without complication, without long-term current use of insulin (CMS/HCC) 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 mellitus without complication, without long-term current use of insulin (CMS/HCC) with type 2 diabetes mellitus in second trimester- Primary documented in this encounter [facility]* Diagnosis Pre-existing type 2 diabetes mellitus during in second trimester- Primary Long Q-T syndrome Long QT syndrome documented [facility] encounter [facility]* Diagnosis Pre-existing type 2 diabetes mellitus during in second trimester- Primary documented [facility]* Diagnosis Long Q-T syndrome- Primary Long QT syndrome 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 mellitus without complication, unspecified whether shelter insulin use (CMS-HCC) documented [facility]* Diagnosis 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 mellitus without complication, without long-term current use of insulin (CMS/HCC)- Primary 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 mellitus without complication, without long-term current use of insulin (CMS/HCC) 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 mellitus without complication, without long-term current use of insulin (CMS/HCC) 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 mellitus without complication, without long-term current use of insulin (CMS/HCC) 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 mellitus without complication, without long-term current use of insulin (CMS/HCC) with type 2 diabetes mellitus in second trimester- Primary Encounter for care of first , second trimester- Primary 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 mellitus without complication, without long-term current use of insulin (CMS/HCC) documented in this encounter [facility]* Diagnosis 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 mellitus without complication, without long-term current use of insulin (CMS/HCC)- Primary 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 mellitus without complication, without long-term current use of insulin (CMS/HCC) 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 mellitus without complication, without long-term current use of insulin (CMS/HCC) 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 mellitus without complication, without long-term current use of insulin (CMS/HCC) 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 mellitus without complication, without long-term current use of insulin (CMS/HCC) with type 2 diabetes mellitus in second trimester- Primary with type 2 diabetes mellitus in second trimester- Primary 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 mellitus without complication, without long-term current use of insulin (CMS/HCC) documented in this encounter [facility] HealthcareEvaluation note* Diagnosis Pre-existing type 2 diabetes mellitus during in second trimester- Primary documented [facility] encounter [facility]* Diagnosis Long Q-T syndrome- Primary Long QT syndrome Hx of prolonged Q-T interval on ECG documented in this encounter [facility]* Diagnosis 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 mellitus without complication, without long-term current use of insulin- Primary 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 mellitus without complication, without long-term current use of insulin 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 mellitus without complication, without long-term current use of insulin 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 mellitus without complication, without long-term current use of insulin 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 mellitus without complication, without long-term current use of insulin with type 2 diabetes mellitus in second trimester- Primary with type 2 diabetes mellitus in second trimester- Primary 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 mellitus without complication, without long-term current use of insulin Encounter for care of first , second trimester- Primary related condition in third trimester Gestational diabetes mellitus (GDM) requiring insulin documented in this encounter [facility] HealthcareEvaluation note* Diagnosis 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 mellitus without complication, without long-term current use of insulin- Primary 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 mellitus without complication, without long-term current use of insulin 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 mellitus without complication, without long-term current use of insulin 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 mellitus without complication, without long-term current use of insulin 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 mellitus without complication, without long-term current use of insulin with type 2 diabetes mellitus in second trimester- Primary with type 2 diabetes mellitus in second trimester- Primary 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 mellitus without complication, without long-term current use of insulin with type 2 diabetes mellitus in third trimester- Primary with type 2 diabetes mellitus in second trimester documented in this encounter [facility] HealthcareEvaluation note* Diagnosis 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 mellitus without complication, without long-term current use of insulin- Primary 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 mellitus without complication, without long-term current use of insulin 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 mellitus without complication, without long-term current use of insulin 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 mellitus without complication, without long-term current use of insulin 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 mellitus without complication, without long-term current use of insulin with type 2 diabetes mellitus in second trimester- Primary with type 2 diabetes mellitus in second trimester- Primary 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 mellitus without complication, without long-term current use of insulin with type 2 diabetes mellitus in third trimester- Primary with type 2 diabetes mellitus in second trimester with type 2 diabetes mellitus in third trimester documented in this encounter [facility] HealthcareEvaluation note* Diagnosis 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 mellitus without complication, without long-term current use of insulin- Primary 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 mellitus without complication, without long-term current use of insulin 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 mellitus without complication, without long-term current use of insulin 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 mellitus without complication, without long-term current use of insulin 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 mellitus without complication, without long-term current use of insulin with type 2 diabetes mellitus in second trimester- Primary with type 2 diabetes mellitus in second trimester- Primary 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 mellitus without complication, without long-term current use of insulin with type 2 diabetes mellitus in third trimester- Primary with type 2 diabetes mellitus in second trimester with type 2 diabetes mellitus in third trimester documented in this encounter [facility] HealthcareEvaluation note* Diagnosis 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 mellitus without complication, without long-term current use of insulin- Primary 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 mellitus without complication, without long-term current use of insulin 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 mellitus without complication, without long-term current use of insulin 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 mellitus without complication, without long-term current use of insulin 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 mellitus without complication, without long-term current use of insulin with type 2 diabetes mellitus in second trimester- Primary with type 2 diabetes mellitus in second trimester- Primary 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 mellitus without complication, without long-term current use of insulin with type 2 diabetes mellitus in third trimester- Primary with type 2 diabetes mellitus in second trimester with type 2 diabetes mellitus in third trimester- Primary Screening for iron deficiency anemia 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 mellitus treated with insulin ([facility]) documented in this encounter [facility] HealthcareInstructionsNot on filedocumented in this [facility] SystemInstructionsNot on filedocumented in this [facility] SystemInstructionsNot on filedocumented in this [facility] on filedocumented in this [facility] InstructionsNot on filedocumented in this [facility] InstructionsNot on filedocumented in this [facility] InstructionsNot on filedocumented in this [facility] InstructionsNot on filedocumented in this [facility] InstructionsNot on filedocumented in this [facility] InstructionsNot on filedocumented in this [facility] InstructionsNot on filedocumented in this [facility] Advance Directives No Advanced Directives Records FoundDocuments on File Type Date Recorded 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 Advance Directives and Living Will 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 Summary Purpose Family History No Family History Records FoundNo Family History Records FoundNo Family History Records FoundNo Family History Records FoundNo Family History Records Found Additional Source Comments INFORMATION SOURCE (unrecogn ized section and content) DATE CREATED AUTHOR 07/06/2019 [facility] DATE CREATED AUTHOR AUTHOR'S ORGANIZ ATION 08/14/2024 [facility] DATE CREATED AUTHOR AUTHOR'S ORGANIZ ATION 10/12/2024 [facility] DATE CREATED AUTHOR AUTHOR'S ORGANIZ ATION 11/09/2024 [facility] DATE CREATED AUTHOR AUTHOR'S ORGANIZ ATION 12/27/2024 [facility] Reason for Visit (unrecogniz ed section and content) Reason Comments Diabetes Reason Comments Type 2 Diabetes affecting Specialty Diagnoses / Procedures Referred By Contac t Referred To Contact Maternal and Medicine Diagnoses Pre-existing type 2 diabetes mellitus in in first trimester Darío Banuelos, BAMBI-SADIA [address] [place] [address] Phone: tel: fax: Maternal- Medicine at [facility] [address] [place] [address] Phone: tel: fax: Referral ID Status Reason Start Date Expiration Date Visits Requested Visits Authorized [id number] Pending Review Specialty Services Required 4 07/25/2025 1 1 Reason Comments T2DM Reason Comments Gestational Diabetes Reason Comments Type 2 Diabetes Reason Comments 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 - Long Q-T sy ndrome SEEN CARDIO A CHILD 10 + YRS AGO SCHED W/PT Specialty Diagnoses / Procedures Referred By Contac Referred To Contact Cardiology Diagnoses Long Q-T syndrome Svetlana Jack, GIIRSH [address] [facility] [address] [address] Phone: tel: fax: [facility] [address] [place] [address] Phone: tel: fax: Referral ID Status Reason Start Date Expiration Date Visits Requested Visits Authorized [id number] Pending Review Specialty Services Required 4 08/14/2025 1 1 Reason Comments 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 - ref by RRK for long QT syndrome - no labs/testing - appt sched w/ pt PATIENT IS 25 WEEKS Specialty Diagnoses / Procedures Referred By Contac t Referred To Contact Cardiology Diagnoses Long Q-T syndrome Aye Saucedo MD [address] [place] [address] Phone: tel: fax: [facility] [address] [place] [address] Phone: tel: fax: Referral ID Status Reason Start Date Expiration Date Visits Requested Visits Authorized [id number] Pending Review Specialty Services Required 09/19/2024 09/19/2025 1 1 Reason Comments Consult Patient is a Wanda Donnell ro referral to Dr. Sam for Type II diabetes insulin required. Specialty Diagnoses / Procedures Referred By Contac t Referred To Contact Obstetrics and Gynecology Diagnoses with type 2 diabetes mellitus in third trimester Procedures DC OFFICE/OUTPATIENT NEW HIGH MDM 60 MINUTES Darío Banuelos CNM [address] [place] [address] Phone: tel: fax: Henry Sam DO [address] [place] [address] Phone: tel: fax: Referral ID Status Reason Start Date Expiration Date V isits Requested Visits Authorized [id number] Closed Specialty Services Required 12/20/2024 06/18/2025 1 1 Care Teams (unrecognized sec tion and content) Gunnery/Ordnance Officer Relationship Specialty Start Date End Date Unallocated, Noms Provider, [address] [place] [address] PCP - General 04/16/23 Awilda Delatorre DO [address] [facility] [address] [place] [address] PCP - [place] Commercial 06/16/23 Darío Banuelos CNM [address] [place] [address] Obstetrics and Gynecology 02/10/23 Gunnery/Ordnance Officer Relationship Specialty Start Date End Date Unallocated, Samaria Biggs MD [address] [facility] [place] [address] PCP - General 04/16/23 Awilda Delatorre, DO [address] [place] [address] PCP - [place] Commercial 06/16/23 Darío Banuelos CNM [address] [place] [address] Obstetrics and Gynecology 02/10/23 Gunnery/Ordnance Officer Relationship Specialty Start Date End Date Unallocated, Samaria Biggs MD [address] [place] [address] PCP - General 04/16/23 Awilda Delatorre, DO [address] [place] [address] PCP - [place] Commercial 06/16/23 Darío Banuelos CNM [address] [place] [address] Obstetrics and Gynecology 02/10/23 Gunnery/Ordnance Officer Relationship Specialty Start Date End Date Unallocated, Samaria Biggs MD [address] [place] [address] PCP - General 04/16/23 Awilda Delatorre, DO [address] [place] [address] PCP - [place] Commercial 06/16/23 Darío Banuelos CNM [address] [place] [address] Obstetrics and Gynecology 02/10/23 Gunnery/Ordnance Officer Relationship Specialty Start Date End Date Darío Banuelos HAIR OR BEAUTY SALON ASSISTANT-CNM [address] [facility] [place] [address] PCP - General Nurse Jewelry Appraiser 04/15/18 Gunnery/Ordnance Officer Relationship Specialty Start Date End Date Darío Banuelos HAIR OR BEAUTY SALON ASSISTANT-CNM [address] [place] [facility] [place] [address] PCP - General Nurse Jewelry Appraiser 04/15/18 Gunnery/Ordnance Officer Relationship Specialty Start Date End Date Darío Banuelos APRN-CNM [address] [place] [address] PCP - General Nurse Jewelry Appraiser 04/15/18 Gunnery/Ordnance Officer Relationship Specialty Start Date End Date Darío Banuelos HAIR OR BEAUTY SALON ASSISTANT-CNM [address] [place] [facility] [place] [address] PCP - General Nurse Jewelry Appraiser 04/15/18 Gunnery/Ordnance Officer Relationship Specialty Start Date End Date Darío Banuelos APRN-CNM [address] [facility] [place] [address] PCP - General Nurse Jewelry Appraiser 04/15/18 Gunnery/Ordnance Officer Relationship Specialty Start Date End Date Unallocated, Noms Provider, [address] [place] [address] PCP - General 04/16/23 Awilda Delatorre DO [address] [place] [address] PCP - [place] Commercial 06/16/23 Darío Banuelos CN [address] [place] [address] Obstetrics and Gynecology 02/10/23 Gunnery/Ordnance Officer Relationship Specialty Start Date End Date Darío Banuelos HAIR OR BEAUTY SALON ASSISTANT-CN [address] [place] [address] PCP - General Nurse Jewelry Appraiser 04/15/18 Gunnery/Ordnance Officer Relationship Specialty Start Date End Date Darío Banuelos HAIR OR BEAUTY SALON ASSISTANT-CN [address] [place] [facility] [place] [address] PCP - General Nurse Jewelry Appraiser 04/15/18 Gunnery/Ordnance Officer Relationship Specialty Start Date End Date Darío Banuelos HAIR OR BEAUTY SALON ASSISTANT[facility] [address] [place] [address] PCP - General Nurse Jewelry Appraiser 04/15/18 Gunnery/Ordnance Officer Relationship Specialty Start Date End Date Darío Banuelos HAIR OR BEAUTY SALON ASSISTANT-[facility] [address] [place] [address] PCP - General Nurse Jewelry Appraiser 04/15/18 Gunnery/Ordnance Officer Relationship Specialty Start Date End Date Unallocated, Noms Provider, [address] [place] [address] PCP - General 04/16/23 Awilda Delatorre DO [address] [place] [address] [place] [address] PCP - [place] Commercial 06/16/23 Darío Banuelos CN [address] [place] [address] Obstetrics and Gynecology 02/10/23 Gunnery/Ordnance Officer Relationship Specialty Start Date End Date Unallocated, Noms Provider, [address] [facility] [place] [address] PCP - General 04/16/23 Awilda Delatorre, DO [address] [place] [address] PCP - [place] Commercial 06/16/23 Darío Banuelos CNM [address] [place] [facility] [place] [address] Obstetrics and Gynecology 02/10/23 Gunnery/Ordnance Officer Relationship Specialty Start Date End Date Unallocated, Noms ProviderMD [address] [place] [address] PCP - General 04/16/23 Awilda Delatorre, DO [address] [place] [address] PCP - [place] Commercial 06/16/23 Darío Banuelos CNM [address] [place] [address] Obstetrics and Gynecology 02/10/23 Gunnery/Ordnance Officer Relationship Specialty Start Date End Date Darío Banuelos APRN-CNM [address] [place] [address] PCP - General Nurse Jewelry Appraiser 04/15/18 Gunnery/Ordnance Officer Relationship Specialty Start Date End Date Darío Banuelos APRN-CNM [address] [place] [address] PCP - General Nurse Jewelry Appraiser 04/15/18 Gunnery/Ordnance Officer Relationship Specialty Start Date End Date Unallocated, Noms Provider, MD [address] [place] [address] PCP - General 04/16/23 Awilda Delatorre, DO [address] [place] [address] PCP - [place] Commercial 06/16/23 Darío Banuelos CNM [address] [place] [address] Obstetrics and Gynecology 02/10/23 Gunnery/Ordnance Officer Relationship Specialty Start Date End Date Unallocated, Samaria Biggs MD [address] [place] [address] PCP - General 04/16/23 Awilda Delatorre, DO [address] [place] [address] PCP - [place] Commercial 06/16/23 Darío Banuelos CNM [address] [place] [address] Obstetrics and Gynecology 02/10/23 Gunnery/Ordnance Officer Relationship Specialty Start Date End Date Unallocated, Samaria Biggs MD [address] [place] [address] PCP - General 04/16/23 Awilda Delatorre, DO [address] [place] [address] PCP - [place] Commercial 06/16/23 Darío Banuelos CNM [address] [place] [address] Obstetrics and Gynecology 02/10/23 Gunnery/Ordnance Officer Relationship Specialty Start Date End Date Unallocated, Samaria Biggs MD [address] [place] [address] PCP - General 04/16/23 Darío Banuelos CNM [address] [place] [address] Obstetrics and Gynecology 02/10/23 Gunnery/Ordnance Officer Relationship Specialty Start Date End Date Unallocated, Samaria Biggs MD [address] [place] [address] PCP - General 04/16/23 Darío Banuelos CNM [address] [place] [address] Obstetrics and Gynecology 02/10/23 Gunnery/Ordnance Officer Relationship Specialty Start Date End Date Unallocated, Samaria Biggs MD [address] [facility] [place] [address] PCP - General 04/16/23 Darío Banuelos CNM [address] [place] [address] Obstetrics and Gynecology 02/10/23 FOR RECORDS PERTAINING TO PATIENTS WHO ARE OR HAVE BEEN ENROLLED IN A CHEMICAL DEPENDENCY/SUBSTANCEABUSE PROGRAM, SOME INFORMATION MAY BE OMITTED. This clinical summary was aggregated from multiple sources. Caution should be exercised in using it in the provision of clinical care. This summary normalizes information from multiple sources, and as a consequence, information in this document may materially change the coding, format and clinical context of patient data. In addition, data may be omitted in some cases. CLINICAL DECISIONS SHOULD BE BASED ON THE PRIMARY CLINICAL RECORDS. [facility] [employer] [facility]. provides no warranty or guarantee of the accuracy or completeness of information in this document.
--- NOTE | 2024-12-29 07:00 | US_ITS ---
[address] [address] Patient Name: REGINALD SMALL MRN: [id number] date: 1995 Sex: F Assigned Patient Location: [facility] Current Patient Location: Accession/Order Number: [id number] Exam Date: 12/29/2024 09:34 Report Date: 12/29/2024 09:36 At the request of: NICK BOWEN DO Procedure: US OB BPP w non-stress US OB BPP w non-stress 12/29/2024 7:33 AM SIGNS AND SYMPTOMS: ^Type II diabetes and on insulin in PROTOCOL: Limited transvesical pelvic ultrasound with grayscale and color Doppler sonographic images COMPARISON: None FINDINGS: The heart rate is noted at 129 bpm. Biophysical profile: Movement: 2/2 tone: 2/2 breathin/2 Amniotic fluid volume: 2/2 (DL 16.35 cm) US/US OB BPP w non-stress IMPRESSION: Biophysical profile score: 8/8 Amniotic fluid index: 16.35 cm Impression dictated by: Zak Roberson M.D. 12/29/2024 9:36 AM Dictation Location: [place] [address] Electronically authenticated by: [id number] Y Date: 12/29/2024 09:36
[2024-12-29 07:31] VITALS: BP 129/60; PULSE 90
== END 2024-12-29 08:00 | disposition home or self-care (01) ==
LOC: US 06:55 → FBC 06:58
PROVIDERS: Visit Provider Obstetrics & Gynecology
DX: O24.113 Pre-existing type 2 diabetes mellitus, in pregnancy, third trimester (principal); Z3A.32 32 weeks gestation of pregnancy
CPT/HCPCS: 76818

== ENCOUNTER 2025-01-02 07:02 | Outpatient (OUT) | payer BC, SELFPAY ==
--- OUTSIDE RECORDS SUMMARY | 2025-01-02 07:05 | XMS_ITS | CCD ---
Author Organization [facility] Care Team Providers Care Concert Promoter Name Role Phone Unavailable Primary Care Provider Unavailabl e FLORO, DARÍO Referring Unavailable Floro CNM, Darío L Unavailable Unallocated , Noms Provider Primary Care Provi mart PetAwilda carr DO Unavailable [phone] Unallocated , Noms Provider Primary Care Provi mart Floro WWE WRESTLER-CNM, Darío Primary Care Provider SVETLANA JACK Attending Unavailable FLORO, DARÍO Referring [...] M Attending Unavailable DARÍO BANUELOS Attending Unavailable LEE ANN, DARÍO Mccoy Attending Unavailable JUAN RAMON, AWILDA M Attending [...] 1 tablet by mouth once daily. Active docusate sodium 100 mg oral capsule (2 sources) Start: 12-28-2024 End: 04-27-2025 take 1 capsule by mouth in the morning docusate sodium (Colace) 100 MG capsule Indications: Anemia during in third trimester Take 1 capsule (100 mg) by mouth in the morning and 1 capsule (100 mg) before bedtime. 60 capsule 3 12/28/2024 04/27/2025 Active ferrous sulfate 325 mg delayed release oral tablet (2 sources) Start: 12-28-2024 End: 12-28-2025 take 1 tablet by mouth in the morning ferrous sulfate (Fe Tabs) 325 (65 Fe) MG EC tablet Indications: Anemia during in third trimester Take 1 tablet (325 mg) by mouth in the morning and 1 tablet (325 mg) before bedtime. Take before meals. Do not crush, chew, or split. 60 tablet 11 12/28/2024 12/28/2025 Active 3 ml insulin isophane, human 100 [...] complication, without long-term current use of insulin ([facility]) 15 units in the am and 25 [...] Test Name Value Interpretation Reference Range Facility US OB BPP W NON-STRESS on 12-29-2024 [place] [address] Ultrasound Report Signed Patient: REGINALD REYES MR#: [id number] : 1995 Acct:[id number] Age/Sex: 29 / F ADM Date: 12/29/24 Loc: US Attending Dr: Henry Sam D.O. Ordering Physician: Henry Sam D.O. Date of Service: 12/29/24 Procedure(s): US OB BPP w non-stress Accession Number(s): [id number] cc: Henry Sam D.O.; Physician,Non-Staff Mag[facility] The [address] [address] Patient Name: REGINALD REYES MRN: [facility]:[id number] date: 1995 Sex: F Assigned Patient Location: [facility] Current Patient Location: Accession/Order Number: [id number] Exam Date: 12/29/2024 09:34 Report Date: 12/29/2024 09:36 At the request of: HENRY SAM DO Procedure: US OB BPP w non-stress US OB BPP w non-stress 12/29/2024 7:33 AM SIGNS AND SYMPTOMS: Type II diabetes and on insulin in PROTOCOL: Limited transvesical pelvic ultrasound with grayscale and color Doppler sonographic images COMPARISON: None FINDINGS: The heart rate is noted at 129 bpm. Biophysical profile: Movement: 2/2 tone: 2/2 breathin/2 Amniotic fluid volume: 2/2 (DL 16.35 cm) US/US OB BPP w non-stress IMPRESSION: Biophysical profile score: 8/8 Amniotic fluid index: 16.35 cm Impression dictated by: Zak Roberson M.D. 12/29/2024 9:36 AM Dictation Location: [place] [address] Electronically authenticated by: [id number] Y Date: 12/29/2024 09:36 Dictated By: Zak Roberson M.D. Signed By: 12/29/2438 DD/ 5 TD/TT: Paradi Operator: [facility] Radiology, Radiologist, MD - 12/29/[address] [address] Ultrasound Report Signed Patient: REGINALD REYES MR#: [id number] : 1995 Acct:[id number] Age/Sex: 29 / F ADM Date: 12/29/24 Loc: US Attending Dr: Henry Sam D.O. Ordering Physician: Henry Sam D.O. Date of Service: 12/29/24 Procedure(s): US OB BPP w non-stress Accession Number(s): [id number] cc: Henry Sam D.O.; Physician,Non-Staff [facility] [address] [address] Patient Name: REGINALD REYES MRN: [id number] date: 1995 Sex: F Assigned Patient Location: [facility] Current Patient Location: Accession/Order Number: [id number] Exam Date: 12/29/2024 09:34 Report Date: 12/29/2024 09:36 At the request of: HENRY SAM DO Procedure: US OB BPP w non-stress US OB BPP w non-stress 12/29/2024 7:33 AM SIGNS AND SYMPTOMS: Type II diabetes and on insulin in PROTOCOL: Limited transvesical pelvic ultrasound with grayscale and color Doppler sonographic images COMPARISON: None FINDINGS: The heart rate is noted at 129 bpm. Biophysical profile: Movement: 2/2 tone: 2/2 breathin/2 Amniotic fluid volume: 2/2 (DL 16.35 cm) US/US OB BPP w non-stress IMPRESSION: Biophysical profile score: 8/8 Amniotic fluid index: 16.35 cm Impression dictated by: Zak Roberson M.D. 12/29/2024 9:36 AM Dictation Location: [place] [address] Electronically authenticated by: [id number] Y Date: 12/29/2024 09:36 Dictated By: Zak Roberson M.D. Signed By: 12/29/2438 DD/ 5 TD/TT: Paradi Operator: [facility] Radiology Study observation (narrative) [facility] US OB BPP W NON-STRESS Ordered By: Radiologist Radiology on 12-29-2024 [facility] Work Phone: Urinalysis macro (dipstick) panel (U)on 12-25-2024 Bilirubin, UA Negative Negative - 4(70) +++ mg/dL [facility] Blood, UA Negative Negative - 50 Skinny/mcL [facility] Clarity, UA Clear [facility] re Color, UA Yellow [facility] Glucose, UA Negative Negative - 1999(110) ++++ mg/dL [facility] Interpretation and review of laboratory results Normal [facility] Ketones, UA Negative Negative - 160(16) ++++ mg/dL [facility] Leukocytes, UA Positive Negative - 500+++ Cal/mcL [facility] Comment on above: small Nitrite, UA Negative Negative - Positive [facility] pH, UA 6.5 5 - 9 [facility] Protein, UA Negative Negative - 1999(20) ++++ mg/dL [facility] Spec Grav, UA 1.02 1 - 1.03 [facility] Urobilinogen, UA 1.0 0.2 - 12 mg/dL [...] II, MD, PHD at 12-Dec-2024 07:13:14 PM [facility] Normal Not Available POCT EKGOrdered By: Abby nAdino on 11-08-2024 [facility] HbA1c (Bld) [Mass fraction]o n 10-09-2024 Interpretation and review of laboratory results Normal [facility] and Cell countson 10-09-2024 HbA1c (Bld) [Mass fraction] 5.7 % [facility] POCT EKGon 09-19-2024 [facility] No Panel Informationon 08-14 [facility] Chlamydia/GC by PCR ThinPrep fluidon 07-11-2024 Chlamydia Dna(Pcr) Negative [facility] Gonorrhoeae Dna(Pcr) Negative [facility] Drug Screen, Urineon 024 Amphetamine/Methamph etamine Negative [facility] Opiate Quantitative Urine Negative [facility] HIV 1&2 AB/AG Screen (P24 AG )on 07-10-2024 HIV 1&2 AB/AG Non-Reactive [facility] Hemoglobin A1con 07-10-2024 HbA1c (Bld) [Mass fraction] 6.4 % Abnormal 4.0 - 6.0 % [facility] Interpretation and review of laboratory results Abnormal [facility] No Panel Informationon 07-10 [facility] Type and screenon 07-10-2024 Abo/Rh(D) Positive [facility] US OB < 14 WEEKS EARLYon US [...] Interpretation and review of laboratory results Normal [facility] Laboratory - Hematology and Cell countson 06-08-2024 HbA1c (Bld) [Mass fraction] 6.2 % [facility] Cytology Cervical or vaginal smear or scraping studyOrdered By: Christen Nettles on 02-10-2023 [facility] Hemoglobin A1Con 07-05-2019 HbA1c (Bld) [Mass fraction] 5.9 % Normal 4.8-5.9 [facility] Comment on above: Performed By: #### G BROOKE LIPR #### [address] [place], [place] [phone] [employer] Associate: Ruslan Fernando MD #### INSU #### [facility] [address] [place], [place] [phone] [employer] Associate: Marv Guzman MD [address] [place], [place] [phone] [employer] Associate: Ruslan Fernando MD HbA1c (Bld) [Mass fraction] 123 mg/dL Normal [facility] Comment on above: Result Comment: The ADA and AACC recommend providing the estimated average glucose result to permit better patient understanding of their HBA1c result. Performed By: #### G BROOKE, LIPR #### [address] [place] [phone] [employer] Associate: Ruslan Fernando MD #### INSU #### [facility] [address] [place] [address] [employer] Associate: Marv Guzman MD [address] [place], [place] [phone] [employer] Associate: Ruslan Fernando MD Glucose [Mass/Vol] 123 mg/dL [facility] [place] Comment on above: The ADA and AACC rec ommend providing the estimated average glucose result to permit better patient understanding of their HBA1c result. HbA1c (Bld) [Mass fraction] 5.9 % 4.8 - 5.9 % [place], [place] Insulinon 07-05-2019 Insulin 36.2 mU/L [facility] Comment on above: Performed By: #### G LYHGB, LIPR #### [facility] [address] [place] [address] [place] [address] [employer] Associate: Ruslan Fernando MD #### INSU #### [place] [address] [place], [place] [phone] [employer] Associate: Marv Guzman MD [facility] [address] [place] [address] Dr[place], [place] [phone] [employer] Associate: Ruslan Fernando MD Reference Range [facility] Comment on above: Result Comment: Fast in.6-24.9 30 min: 20-112 60 min: 29-88 90 min: 26-84 120 min: 22-79 Performed By: #### G LYHGB, LIPR #### [facility] [address] [place] [address] [place] [address] [employer] Associate: Ruslan Fernando MD #### INSU #### [address] [phone] [employer] Associate: Marv Guzman MD [address] [place], [place] [phone] [employer] Associate: Ruslan Fernando MD Collection Info. 0809 [facility] Comment on above: Performed By: #### G LYHGB, LIPR #### [facility] [address] [place] [phone] [employer] Associate: Ruslan Fernando MD #### INSU #### [address] [address] [employer] Associate: Marv Guzman MD [facility] [address] [place] [address] Dr[place], [place] [phone] [employer] Associate: Ruslan Fernando MD Insulin, totalon 07-05-2019 INR Coag (Bld) [Relative time] [place], [place] Comment on above: Fastin.6-24.9 30 min: 20-112 60 min: 29-88 90 min: 26-84 120 min: 22-79 Insulin 36.2 mU/L [place] Insulin Comment [address] [place], [place] Lipid Panelon 07-05-2019 Cholesterol [Mass/Vol] 204 mg/dL High <200 [place], [place] Comment on above: Cholesterol Guidelines: <200 Desirable 200-240 Borderline >240 Undesirable Cholesterol in HDL [Mass/Vol] 35 mg/dL Low >40 [place] Comment on above: HDL Guidelines: <40 Undesirable 40-59 Borderline >59 Desirable Cholesterol in LDL [Mass/Vol] 102 mg/dL 0 - 130 mg/dL [place] Comment on above: LDL Guidelines: <100 Desirable 100-129 Near to/above Desirable 130-159 Borderline >159 Undesirable Direct (measured) LDL and calculated LDL are not interchangeable tests. Cholesterol in VLDL [Mass/Vol] NOT REPORTED High 1 - 30 mg/dL [place], [place] Cholesterol.total/Ch olesterol in HDL [Mass ratio] 5.8 {ratio} High <5 [place] Interpretation and review of laboratory results Abnormal [place] Triglyceride [Mass/Vol] 336 mg/dL High <150 [place], [place] Comment on above: Triglyceride Guidelines: <150 Desirable 150-199 Borderline 200-499 High >499 Very high Based on AHA Guidelines for fasting triglyceride, May 2012. Lipid Profileon 07-05-2019 Cholesterol [Mass/Vol] 204 mg/dL High <200 [facility] Comment on above: Result Comment: Cholesterol Guidelines: <200 Desirable 200-240 Borderline >240 Undesirable Performed By: #### G LYHGAmanda, LIPR #### [facility] [address] [place] [address] [employer] Associate: Ruslan Fernando MD #### INSU #### [facility] [employer] [address] [place], [place] [phone] [employer] Associate: Marv Guzman MD [facility] [address] [place] [address] [place] [address] [employer] Associate: Ruslan Fernando MD Cholesterol in HDL [Mass/Vol] 35 mg/dL Low >40 [facility] Comment on above: Result Comment: HDL Guidelines: <40 Undesirable 40-59 Borderline >59 Desirable Performed By: #### G LYHGB, LIPR #### [facility] [address] [place] [address] Dr[place], [place] [phone] [employer] Associate: Ruslan Fernando MD #### INSU #### [address] [address] [employer] Associate: Marv Guzman MD [address] [place], [place] [phone] [employer] Associate: Ruslan Fernando MD Cholesterol in LDL [Mass/Vol] 102 mg/dL Normal 0-130 [facility] Comment on above: Result Comment: LDL Guidelines: <100 Desirable 100-129 Near to/above Desirable 130-159 Borderline >159 Undesirable Direct (measured) LDL and calculated LDL are not interchangeable tests. Performed By: #### G LYHGB, LIPR #### [address] [place], [place] [phone] [employer] Associate: Ruslan Fernando MD #### INSU #### [place] [address] [place] [address] [employer] Associate: Marv Guzman MD [facility] [address] [place] [address] [place] [address] [employer] Associate: Ruslan Fernando MD Cholesterol.total/Ch olesterol in HDL [Mass ratio] 5.8 {ratio} High <5 [facility] Comment on above: Performed By: #### G LYHGB, LIPR #### [address] [place], [place] [phone] [employer] Associate: Ruslan Fernando MD #### INSU #### [facility] [address] [place] [address] [employer] Associate: Marv Guzman MD [facility] [address] [place] [phone] [employer] Associate: Ruslan Fernando MD Triglyceride [Mass/Vol] 336 mg/dL High <150 [facility] Comment on above: Result Comment: Triglyceride Guidelines: <150 Desirable 150-199 Borderline 200-499 High >499 Very high Based on AHA Guidelines for fasting triglyceride, May 2012. Performed By: #### G LYHGB, LIPR #### [facility] [address] [place] [phone] [employer] Associate: Ruslan Fernando MD #### INSU #### [facility] [address] [place] [address] [employer] Associate: Marv Guzman MD [address] [place] [phone] [employer] Associate: Ruslan Fernando MD Cholesterol in VLDL [Mass/Vol] NOT REPORTED Normal 09-14 [facility] Comment on above: Performed By: #### G LYHGB, LIPR #### [address] [place], [place] [phone] [employer] Associate: Ruslan Fernando MD #### INSU #### [facility] [address] [place] [address] [employer] Associate: Marv Guzman MD [facility] [address] [place] [address] [place], [place] [phone] [employer] Associate: Ruslan Fernando MD Vital Signs Date Time Vital Sign Value Performing Clinician Facility 12-26-2024 16:02-0400 Body mass index (BMI) [Ratio] 34.15 kg/m2 Darío BRAND Work Phone: [facility] 12-26-2024 16:02-0400 Body weight 107.96 kg Darío BRAND Work Phone: [facility] 12-26-2024 16:02-0400 Diastolic blood pressure 74 mm[Hg] Darío Sheebao CNM Work Phone: [facility] 12-26-2024 16:02-0400 Systolic blood pressure 116 mm[Hg] Darío Sheebao CNM Work Phone: [facility] 12-11-2024 15:56-0400 Diastolic blood pressure 70 mm[Hg] Darío Sheebao CNM Work Phone: [facility] 12-11-2024 15:56-0400 Systolic blood pressure 120 mm[Hg] Darío Sheebao CNM Work Phone: [facility] 12-07-2024 08:17-0400 Body height 177.8 cm Awilda Petznick DO Work Phone: [facility] 12-07-2024 08:17-0400 Body temperature 97.9 [degF] Awilda Petznick DO Work Phone: [facility] 12-07-2024 08:17-0400 Diastolic blood pressure 66 mm[Hg] Awilda Petznick DO Work Phone: [facility] 12-07-2024 08:17-0400 Heart rate 86 /min Awilda Petznick DO Work Phone: [facility] 12-07-2024 08:17-0400 SaO2% (BldA) [Mass fraction] 98 % Awilda Petznick DO Work Phone: [facility] 12-07-2024 08:17-0400 Systolic blood pressure 126 mm[Hg] Awilda Petznick DO Work Phone: [facility] 11-15-2024 16:31-0400 Body mass index (BMI) [Ratio] 34.44 kg/m2 Darío Díazo CNM Work Phone: [facility] 11-15-2024 16:31-0400 Body weight 108.86 kg Darío Díazo CNM Work Phone: [facility] 11-15-2024 16:31-0400 Diastolic blood pressure 78 mm[Hg] Darío Sheebao CNM Work Phone: [facility] 11-15-2024 16:31-0400 Systolic blood pressure 120 mm[Hg] Darío Banuelos CNM Work Phone: [facility] 11-08-2024 09:17-0400 Body height 177.8 cm Tricia Rowland MD Work Phone: [facility] 11-08-2024 09:17-0400 Body mass index (BMI) [Ratio] 34.06 kg/m2 Tricia Rowland MD Work Phone: [facility] 11-08-2024 09:17-0400 Body weight 107.68 kg Tricia Rowland MD Work Phone: [facility] 11-08-2024 09:17-0400 Diastolic blood pressure 64 mm[Hg] Tricia Rowland MD Work Phone: [facility] 11-08-2024 09:17-0400 Heart rate 80 /min Tricia Rowland MD Work Phone: [facility] 11-08-2024 09:17-0400 SaO2% (BldA) [Mass fraction] 98 % Tricia Rowland MD Work Phone: [facility] 11-08-2024 09:17-0400 Systolic blood pressure 128 mm[Hg] Tricia Rowland MD Work Phone: [facility] 10-09-2024 15:40-0500 Body height 177.8 cm Awilda Petznick DO Work Phone: [facility] 10-09-2024 15:40-0500 Body mass index (BMI) [Ratio] 34.01 kg/m2 Awilda Petznick DO Work Phone: [facility] 10-09-2024 15:40-0500 Body temperature 98.2 [degF] Awilda Petznick DO Work Phone: [facility] 10-09-2024 15:40-0500 Body weight 107.5 kg Awilda Petznick DO Work Phone: [facility] 10-09-2024 15:40-0500 Diastolic blood pressure 66 mm[Hg] Awilda Petznick DO Work Phone: [facility] 10-09-2024 15:40-0500 Heart rate 98 /min Awilda Petznick DO Work Phone: [facility] 10-09-2024 15:40-0500 SaO2% (BldA) [Mass fraction] 98 % Awilda Petznick DO Work Phone: [facility] 10-09-2024 15:40-0500 Systolic blood pressure 128 mm[Hg] Awilda Petznick DO Work Phone: [facility] 09-28-2024 16:17-0500 Body mass index (BMI) [Ratio] 34.58 kg/m2 Darío Díazo CNM Work Phone: [facility] 09-28-2024 16:17-0500 Body weight 109.32 kg Darío Díazo CNM Work Phone: [facility] 09-28-2024 16:17-0500 Diastolic blood pressure 70 mm[Hg] Darío Díazo CNM Work Phone: [facility] 09-28-2024 16:17-0500 Systolic blood pressure 120 mm[Hg] Darío Díazo CNM Work Phone: [facility] 09-19-2024 10:31-0500 Body height 177.8 cm Aye Saucedo MD Work Phone: [facility] 09-19-2024 10:31-0500 Body mass index (BMI) [Ratio] 34.15 kg/m2 Aye Saucedo MD Work Phone: [facility] 09-19-2024 10:31-0500 Body weight 107.96 kg Aye Saucedo MD Work Phone: [facility] 09-19-2024 10:31-0500 Diastolic blood pressure 76 mm[Hg] Aye Saucedo MD Work Phone: [facility] 09-19-2024 10:31-0500 Heart rate 85 /min Aye Saucedo MD Work Phone: [facility] 09-19-2024 10:31-0500 SaO2% (BldA) [Mass fraction] 98 % Aye Saucedo MD Work Phone: [facility] 09-19-2024 10:31-0500 Systolic blood pressure 122 mm[Hg] Aye Saucedo MD Work Phone: [facility] 09-11-2024 08:12-0500 Body mass index (BMI) [Ratio] 34.29 kg/m2 Clarke Modi MD Work Phone: [facility] 09-11-2024 08:12-0500 Body weight 108.41 kg Clarke Modi MD Work Phone: [facility] 09-11-2024 08:12-0500 Diastolic blood pressure 81 mm[Hg] Clarke Modi MD Work Phone: [facility] 09-11-2024 08:12-0500 Heart rate 80 /min Clarke Modi MD Work Phone: [facility] 09-11-2024 08:12-0500 Systolic blood pressure 122 mm[Hg] Clarke Modi MD Work Phone: [facility] 09-01-2024 08:54-0500 Body height 177.8 cm Awilda Petznick DO Work Phone: [facility] 09-01-2024 08:54-0500 Body mass index (BMI) [Ratio] 34.44 kg/m2 Awilda Petznick DO Work Phone: [facility] 09-01-2024 08:54-0500 Body temperature 98.49 [degF] Awilda Petznick DO Work Phone: [facility] 09-01-2024 08:54-0500 Body weight 108.86 kg Awilda Petznick DO Work Phone: [facility] 09-01-2024 08:54-0500 Diastolic blood pressure 72 mm[Hg] Awilda Petznick DO Work Phone: [facility] 09-01-2024 08:54-0500 Heart rate 92 /min Awilda Petznick DO Work Phone: [facility] 09-01-2024 08:54-0500 SaO2% (BldA) [Mass fraction] 97 % Awilda Petznick DO Work Phone: [facility] 09-01-2024 08:54-0500 Systolic blood pressure 126 mm[Hg] Awilda Petznick DO Work Phone: [facility] 08-14-2024 10:40-0500 Body height 177.8 cm Svetlana Lavoy PA-C Work Phone: [facility] 08-14-2024 10:40-0500 Body mass index (BMI) [Ratio] 34.72 kg/m2 Svetlana Lavoy PA-C Work Phone: [facility] 08-14-2024 10:40-0500 Body weight 109.77 kg Svetlana Lavoy PA-C Work Phone: [facility] 08-14-2024 10:40-0500 Diastolic blood pressure 68 mm[Hg] Svetlana Lavoy PA-C Work Phone: [facility] 08-14-2024 10:40-0500 Heart rate 86 /min Svetlana Lavoy PA-C Work Phone: [facility] 08-14-2024 10:40-0500 Systolic blood pressure 134 mm[Hg] Svetlana Lavoy PA-C Work Phone: [facility] 08-14-2024 09:42-0500 Body height 177.8 cm Shauna Denny RN Work Phone: [facility] 08-14-2024 09:41-0500 Body mass index (BMI) [Ratio] 34.72 kg/m2 Shauna Ana RN Work Phone: [facility] 08-14-2024 09:41-0500 Body weight 109.77 kg Shauna Denny RN Work Phone: [facility] 08-03-2024 08:36-0500 Body mass index (BMI) [Ratio] 35.3 kg/m2 Darío Floro CNM Work Phone: [facility] 08-03-2024 08:36-0500 Body weight 111.58 kg Darío Floro CNM Work Phone: [facility] 08-03-2024 08:36-0500 Diastolic blood pressure 80 mm[Hg] Darío Floro CNM Work Phone: [facility] 08-03-2024 08:36-0500 Systolic blood pressure 122 mm[Hg] Darío Floro CNM Work Phone: [facility] 07-10-2024 15:43-0500 Body mass index (BMI) [Ratio] 35.3 kg/m2 Darío Floro CNM Work Phone: [facility] 07-10-2024 15:43-0500 Body weight 111.58 kg Darío Floro CNM Work Phone: [facility] 07-10-2024 15:43-0500 Diastolic blood pressure 76 mm[Hg] Darío Floro CNM Work Phone: [facility] 07-10-2024 15:43-0500 Systolic blood pressure 120 mm[Hg] Darío Floro CNM Work Phone: [facility] 06-08-2024 14:04-0400 Body height 177.8 cm Awilda Petznick DO Work Phone: [facility] 06-08-2024 14:04-0400 Body mass index (BMI) [Ratio] 35.01 kg/m2 Awilda Petznick DO Work Phone: [facility] [facility]-08-[facility]24 14:04-0400 Body temperature 98.49 [degF] Awilda Petznick DO Work Phone: [facility] [employer] 06-08-2024 14:04-0400 Body weight 110.68 kg Awilda Petznick DO Work Phone: [facility] [employer] 06-08-2024 14:04-0400 Diastolic blood pressure 72 mm[Hg] Awilda Petznick DO Work Phone: [facility] 06-08-2024 14:04-0400 Heart rate 87 /min Awilda Petznick DO Work Phone: [facility] 06-08-2024 14:04-0400 SaO2% (BldA) [Mass fraction] 98 % Awilda Petznick DO Work Phone: [facility] 06-08-2024 14:04-0400 Systolic blood pressure 138 mm[Hg] Awilda Petznick DO Work Phone: [facility] Healthcare Encounters Encounter Date Encounter Type Care Provider Facility Start: 01-01-2025 End: 01-01-2025 Bamboo flowsheet Darío Banuelos CNM Work Phone: [facility] Start: 01-01-2025 End: 01-01-2025 Bamboo flowsheet Darío Nadine Sheebao CNM Work Phone: [facility] Start: 12-29-2024 End: 12-29-2024 Clinisync Result Encounter Henry Flaco DO Work Phone: [facility] Unsolicited Start: 12-29-2024 End: 12-29-2024 Clinisync Result Encounter Henry Flaco DO Work Phone: [facility] Unsolicited Start: 12-26-2024 End: 12-26-2024 ambulatory DARÍO BANUELOS Not Available Start: 12-26-2024 End: 12-26-2024 Subsequent care visit Darío Banuelos CNM Work Phone: [facility] Comment on above: with type 2 diabetes mellitus in third trimester (Primary Dx); Screening for iron deficiency anemia; 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 mellitus treated with insulin ([facility]) Start: 12-26-2024 End: 12-26-2024 Bamboo flowsheet Darío [...] 12-11-2024 End: 12-11-2024 Subsequent care visit Darío L Floro CNM [...] trimester Start: 12-07-2024 End: 12-07-2024 ambulatory AWILDA DELATORRE Not Available Start: 11-15-2024 End: 11-15-2024 Subsequent [...] 30 minutes Aye Saucedo MD Work Phone: [facility] Comment on above: Long Q-T syndrome (P rimary Dx); Hx of prolonged Q-T interval on ECG Start: 11-08-2024 End: 11-08-2024 ambulatory [facility] Start: 11-07-2024 End: 11-07-2024 Telephone encounter Abby Andino C[facility] Start: 10-31-2024 End: 10-31-2024 ambulatory DARÍO FLORO [facility] Start: 10-18-2024 End: 10-18-2024 ambulatory DARÍO L FLORO Not Available Start: 10-18-2024 End: 10-18-2024 Bamboo flowsheet Darío L Floro CNM Work Phone: [facility] Start: 10-18-2024 End: 10-18-2024 Bamboo flowsheet Darío L Floro CNM Work Phone: [facility] Start: 10-10-2024 End: 10-10-2024 Office outpatient visit 25 minutes Clarke Modi MD Work Phone: [facility] Comment on above: Pre-existing type 2 diabetes mellitus during in second trimester (Primary Dx) Start: 10-10-2024 End: 10-10-2024 ambulatory CLARKE JUAREZHID [facility] Start: 10-09-2024 End: 10-09-2024 Office outpatient visit 15 minutes Awilda Delatorre DO Work Phone: [facility] Comment on above: with type 2 diabetes mellitus in second trimester (Primary Dx); 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 mellitus without complication, without long-term current use of insulin ([facility]) Start: 10-09-2024 End: 10-09-2024 ambulatory AWILDA DELATORRE Not Available Start: 10-03-2024 End: 10-03-2024 ambulatory [facility] Start: 09-28-2024 End: 09-28-2024 Subsequent care visit Darío Banuelos CNM Work Phone: [facility] Comment on above: Encounter for prenat al care of first , second trimester (Primary Dx); 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 mellitus without complication, without long-term current use of insulin ([facility]) Start: 09-28-2024 End: 09-28-2024 ambulatory DARÍO Nadine DÍAZO Not Available Start: 09-28-2024 End: 09-28-2024 Bamboo flowsheet Darío Nadine Díazo CNM Work Phone: [facility] Start: 09-28-2024 End: 09-28-2024 Bamboo flowsheet Darío Nadine Floro CNM Work Phone: [facility] Start: 09-19-2024 End: 09-19-2024 Office consultation new/estab patient 40 min Jacque Schneider MD Work Phone: [facility] Comment on above: Long Q-T syndrome (P rimary Dx); 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 mellitus without complication, unspecified whether long term care administrator insulin use (CMS-HCC) Start: 09-19-2024 End: 09-19-2024 ambulatory [facility] Start: 09-18-2024 End: 09-18-2024 Telephone encounter Abby Andino CMA [facility] Start: 09-14-2024 End: 09-14-2024 Chart abstracting Jacque Schneider MD Work Phone: [facility] Start: 09-11-2024 End: 09-11-2024 Telephone encounter Yudelka Randall RN [facility] Start: 09-11-2024 End: 09-11-2024 Office outpatient visit 25 minutes Clarke Modi MD Work Phone: [facility] Comment on above: Pre-existing type 2 diabetes mellitus during in second trimester (Primary Dx); Long Q-T syndrome Start: 09-11-2024 End: 09-11-2024 ambulatory [facility] Start: 09-05-2024 End: 09-05-2024 Telephone encounter Sparkle Castillo RN [facility] Start: 09-01-2024 End: 09-01-2024 Office outpatient visit 25 minutes Awilda Delatorre DO Work Phone: [facility] 230 Comment on above: with type 2 diabetes mellitus in second trimester (Primary Dx) Start: 09-01-2024 End: 09-01-2024 ambulatory AWILDA DELATORRE Not Available Start: 08-28-2024 End: 08-28-2024 Telephone encounter Donna Posadas RN [facility] Start: 08-23-2024 End: 08-23-2024 Office outpatient visit 25 minutes Ariella PIERRE Work Phone: [facility] Comment on above: 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 guerrero itus without complication, unspecified whether long term care administrator insulin use ([facility]) (Primary Dx) Start: 08-23-2024 End: 08-23-2024 ambulatory ARIELLA ROBERTO [facility] Start: 08-14-2024 End: 08-14-2024 Office outpatient new 45 minutes Svetlana Jack PA-C Work Phone: [facility] Comment on above: with type 2 diabetes mellitus in second trimester (Primary Dx); Long Q-T syndrome Start: 08-14-2024 End: 08-14-2024 ambulatory Shauna Denny RN Work Phone: [facility] Comment on above: Pre-existing type 2 diabetes mellitus in in first trimester with type 2 diabetes mellitus in second trimester (Primary Dx) Start: 08-03-2024 End: 08-03-2024 Bamboo flowsheet Darío L Floro CNM Work Phone: [facility] Start: 08-03-2024 End: 08-03-2024 Bamboo flowsheet Darío L Floro CNM Work Phone: [facility] Start: 08-03-2024 End: 08-03-2024 Subsequent care visit Darío Nadine Díazo CNM Work Phone: [facility] Comment on above: Encounter for prenat al care of first , first trimester (Primary Dx); 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 mellitus with hyperosmolarity without coma, without long-term current use of insulin ([facility]) Start: 08-03-2024 End: 08-03-2024 ambulatory DARÍO L FLORO Not Available Start: 07-25-2024 End: 07-25-2024 Chart abstracting Scanning Provider External [facility] Start: 07-10-2024 End: 07-10-2024 Subsequent care visit Darío Nadine Díazo CNM Work Phone: [facility] [...] without long- term current use of insulin ([facility]) Start: 06-08-2024 End: 06-08-2024 ambulatory AWILDA DELATORRE Not Available Start: 05-03-2024 End: 05-03-2024 Telephone encounter Darío Banuelos CNM Work Phone: [facility] Start: 02-28-2024 End: 02-28-2024 ambulatory AWILDA DELATORRE Not Available Start: 01-04-2024 End: 01-04-2024 ambulatory DARÍO BANUELOS Not Available Start: 07-05-2019 End: 07-06-2019 Patient encounter procedure DARÍO BANUELOS [facility] Start: 07-05-2019 End: 07-05-2019 Subsequent hospital visit by physician DERRICK Laboratory Procedures Date Procedure Procedure Detail Performing Clinician Start: 12-29-2024 US OB BPP W NON-STRESS Henry Flaco DO Work Phone: Start: 12-25-2024 Urnls dip stick/tabl et rgnt non-auto w/o micrscp Henry Flaco DO Work Phone: Start: 11-08-2024 Ecg routine ecg w/le ast 12 lds w/i&r Tricia Rowland MD Work Phone: Start: 10-09-2024 Hemoglobin glycosyla carola a1c Awilda Delatorre DO Work Phone: Start: 09-19-2024 Ecg routine ecg w/le ast 12 lds w/i&r Aye Saucedo MD Work Phone: Start: 08-14-[address] [facility] DIABETES EDUCATION Darío Banuelos [employer] Work Phone: Start: 08-14-[address] [facility] - NUTRITION EDUCATION Darío Banuelos [employer]-[facility] Work Phone: Start: 07-11-2024 CHLAMYDIA/GC BY PCR [...] hin layer prep mnl screen Darío Banuelos [facility] Work Phone: Start: 07-05-2019 Assay of insulin total DARÍO SHEEBAO Start: 07-05-2019 Hemoglobin glycosyla carola a1c DARÍO DÍAZO Start: 07-05-2019 Lipid panel DARÍO FL SHAYNE Start: 07-05-2019 Assay of insulin total Darío Banuelos Work Phone: Start: 07-05-2019 Hemoglobin glycosyla carola a1c Darío Díazo Work Phone: Start: 07-05-2019 Lipid panel Darío Fl shayne Work Phone: Plan of Treatment Date Care Activity Detail Author Start: 11-08-2025 Adult BMI Screening Adult BMI Screen ing [facility] Start: 11-08-2025 Tobacco Screening Tobacco Screening [facility] Start: 09-19-2025 Adult BMI Screening Adult BMI Screen ing [facility] Start: 09-19-2025 Tobacco Screening Tobacco Screening [facility] Start: 09-11-2025 Adult BMI Screening Adult BMI Screen ing [facility] Start: 09-11-2025 Tobacco Screening Tobacco Screening [facility] Start: 08-30-2025 Urine screening for protein Diabetes: Urine Protein Screening [facility] Start: 08-14-2025 Adult BMI Screening Adult BMI Screen ing [facility] Start: 08-14-2025 Tobacco Screening Tobacco Screening [facility] Start: 08-14-2025 End: 08-14-2025 US MFM with or without consult US MFM with or without consult Imaging Routine with type 2 diabetes mellitus in second trimester Expected: 08/14/2025 (Approximate), Expires: 08/14/2025 [facility] Work Phone: Comment on above: Expected: 08/14/2025 (Approximate), Expires: 08/14/2025 Start: 04-16-2025 Influenza vaccination Influenz a Vaccine (Season Ended) [facility] Start: 02-15-2025 End: 02-15-2025 Professional / ancillary services management 02/15/2025 4:00 PM EDT Ancillary Procedure [facility] [address] [phone] [facility] Start: 02-13-2025 End: 02-13-2025 Patient encounter procedure 02/13/2025 4:00 PM EDT Routine [facility] [address] [place] [phone] Darío Banuelos CNM [address] [place] [address] [facility] Start: 02-12-2025 End: 02-12-2025 Patient encounter procedure 02/12/2025 4:30 PM EDT Routine [facility] [address] [place] [phone] Darío Banuelos CNM [address] [place] [address] [facility] Start: 02-09-2025 End: 02-09-2025 Professional / ancillary services management 02/09/2025 4:00 PM EDT Ancillary Procedure [facility] [address] [facility] [address] [place] [address] [facility] Start: 02-06-2025 End: 02-06-2025 Patient encounter procedure [facility] Start: 02-02-2025 End: 02-02-2025 Professional / ancillary services management 02/02/2025 4:00 PM EDT Ancillary Procedure [facility] [address] [place] [address] [facility] Start: 01-30-2025 End: 01-30-2025 Patient encounter procedure 01/30/2025 4:00 PM EDT Routine [facility] [address] [place] [address] Darío Banuelos, CNM [address] [place] [address] [facility] Start: 01-29-2025 End: 01-29-2025 Patient encounter procedure 01/29/2025 4:30 PM EDT Routine [facility] [address] [place] [address] Darío Banuelos, CNM [address] [place] [address] [facility] Start: 01-26-2025 End: 01-26-2025 Professional / ancillary services management 01/26/2025 4:00 PM EDT Ancillary Procedure [facility] [address] [place] [address] [facility] Start: 01-23-2025 End: 01-23-2025 Patient encounter procedure 01/23/2025 4:00 PM EDT Routine [facility] [address] [place] [address] Darío Banuelos, CNM [address] [place] [address] [facility] Start: 01-22-2025 End: 01-22-2025 Patient encounter procedure 01/22/2025 4:30 PM EDT Routine [facility] [address] [place] [address] Darío Banuelos, CNM [address] [place] [address] [facility] Start: 01-19-2025 End: 01-19-2025 Professional / ancillary services management 01/19/2025 9:15 AM EDT Ancillary Procedure [facility] [address] [place] [address] [facility] Start: 01-18-2025 End: 01-18-2025 Patient encounter procedure 01/18/2025 8:30 AM EDT Office Visit [facility] [address] [place] [phone] Awilda Delatorre, [address] [place] [address] [facility] Start: 01-16-2025 End: 01-16-2025 Patient encounter procedure 01/16/2025 4:00 PM EDT Routine [facility] [address] [place] [phone] Darío Banuelos, CNM [address] [place] [address] [facility] Start: 01-15-2025 End: 01-15-2025 Patient encounter procedure 01/15/2025 4:30 PM EDT Routine [facility] [address] [place] [phone] Darío Banuelos CNM [address] [place] [address] [facility] Start: 01-12-2025 End: 01-12-2025 Professional / ancillary services management 01/12/2025 4:00 PM EDT Ancillary Procedure [facility] [address] [facility] [address] [place] [address] [facility] Start: 01-09-2025 End: 01-09-2025 Patient encounter procedure 01/09/2025 4:00 PM EDT Routine [facility] [address] [place] [phone] Darío Banuelos, CATHIEM [address] [place] [address] [facility] Start: 01-06-2025 Hemoglobin A1c measurement Diabetes: Hemoglobin A1C [facility] Start: 01-05-2025 End: 01-05-2025 Professional / ancillary services management 01/05/2025 9:15 AM EDT Ancillary Procedure [facility] [address] [place] [address] [facility] Start: 01-03-2025 Urine screening for protein Diabetes: Urine Protein Screening [facility] Start: 01-02-2025 End: 01-02-2025 Patient encounter procedure 01/02/2025 4:00 PM EDT Routine [facility] [address] [place] [address] Darío Banuelos, CNM [address] [place] [address] [facility] Start: 01-01-2025 End: 01-01-2025 Patient encounter procedure 01/01/2025 4:30 PM EDT Routine [facility] [address] [place] [address] Darío Banuelos, CNM [address] [place] [address] [facility] Start: 12-29-2024 End: 12-29-2024 Professional / ancillary services management 12/29/2024 4:00 PM EDT Ancillary Procedure [facility] [address] [facility] [address] [place] [phone] [facility] Start: 12-26-2024 End: 12-26-2024 Patient encounter procedure 12/26/2024 4:00 PM EDT Routine [facility] [address] [place] [address] Darío Banuelos, CNM [address] [place] [address] [facility] Start: 12-26-2024 End: 12-26-2025 [...] EDT Ancillary Procedure [facility] [address] [facility] [address] [place] [phone] [facility] Start: 12-11-2024 End: 12-11-2024 [...] [address] [place] [address] Awilda Delatorre DO [address] [place] [address] [facility] Start: 11-15-2024 End: 11-15-2024 Patient encounter procedure 11/15/2024 4:30 PM EDT Routine [facility] [address] [place] [phone] Darío Banuelos, CATHIEM [address] [place] [address] Arrived [facility] Comment on above: Arrived Start: 11-15-2024 End: 11-15-2025 US for US OB follow up transabdominal approach Imaging Routine related condition in third trimester Expected: 11/15/2024, Expires: 11/15/2025 [facility] Work Phone: Comment on above: Expected: 11/15/2024 , Expires: 11/15/2025 Start: 11-08-2024 End: 11-08-2024 Patient encounter procedure 11/08/2024 9:30 AM EDT Office Visit [facility] [address] [place] [phone] Aye Saucedo MD [address] [place] [address] Tricia Rowland MD [address] [place] [address] [facility] Start: 10-31-2024 End: 10-31-2024 Patient encounter procedure 10/31/2024 8:00 AM EDT Appointment [facility] [address] [place] [phone] [facility] Start: 10-18-2024 End: 10-18-2024 Patient encounter procedure [facility] Comment on above: Arrived Start: 10-10-2024 Hemoglobin A1c measurement Diabetes: Hemoglobin A1C [facility] Start: 10-10-2024 End: 10-10-2024 Telemedicine consultation with patient 10/10/2024 11:30 AM EST Telemedicine [facility] [address] [place] [address] Clarke Modi MD [address] [place] [address] [facility] Start: 10-09-2024 End: 10-09-2024 Patient encounter procedure 10/09/2024 3:45 PM EST Office Visit [facility] [address] [place] [phone] Awilda Delatorre, [address] [place] [address] [facility] Start: 10-03-2024 End: 10-03-2024 Patient encounter procedure 10/03/2024 10:00 AM EST Appointment [facility] [address] [place] [address] [facility] Start: 09-28-2024 End: 09-28-2024 Patient encounter procedure [facility] Comment on above: Arrived Start: 09-25-2024 End: 09-25-2024 Patient encounter procedure 09/25/2024 8:30 AM EST Appointment [facility] [address] [place] [phone] [facility] Start: 09-19-2024 End: 09-19-2024 Patient encounter procedure 09/19/2024 8:15 AM EST Office Visit [facility] [address] [phone] Jacque Schneider MD [address] [place] [address] [facility] Start: 09-11-2024 End: 09-11-2024 Patient encounter procedure 09/11/2024 8:00 AM EST Office Visit [facility] [address] [place] [phone] Clarke Modi MD [address], [address] [place] [address] [facility] Start: 09-08-2024 Hemoglobin A1c measurement Diabetes: Hemoglobin A1C [facility] Start: 08-30-2024 End: 08-30-2024 Patient encounter procedure 08/30/2024 4:30 PM EST Office Visit [facility] [address] [place] [phone] Darío Banuelos CNM [address] [place] [address] [facility] Start: 08-23-2024 End: 08-23-2024 Telemedicine consultation with patient 08/23/2024 2:00 PM EST Telemedicine [facility] [address] [facility] [place] [address] Ariella Roberto, [employer] [address] [facility] [place] [address] [facility] Start: 08-14-2024 End: 11-12-2024 Protein creat ratio Protein creat ratio Lab Routine with type 2 diabetes mellitus in second trimester Expected: 08/14/2024 (Approximate), Expires: 11/12/2024 [facility] Comment on above: Expected: 08/14/2024 (Approximate), Expires: 11/12/2024 Start: 08-14-2024 End: 08-14-2024 Patient encounter procedure 08/14/2024 11:00 AM EST Office Visit [facility] [address] [place] [address] Svetlana Jack PA-C [address] [facility] [address] [address] [facility] Start: 08-14-2024 End: 08-14-2024 ambulatory 08/14/2024 8:30 AM EST Support Visit [facility] [address] [facility] [place] [address] Shauna Denny, RN [address] [facility], [address] [place] [address], [place] [address] Maribell Amin, OLAYINKA [address], [address] [place] [address], [place] [address] [facility] Start: 08-03-2024 End: 08-03-2024 Patient encounter procedure 08/03/2024 8:30 AM EST Routine [facility] [address] [place] [address] Darío Banuelos, [facility] [address] [place] [address] Arrived [facility] Comment on above: Arrived Start: 07-10-2024 End: 07-10-2024 Patient encounter procedure 07/10/2024 3:45 PM EST Routine [facility] [address] [place] [phone] Darío Banuelos, [facility] [address] [place] [address] Arrived [facility] Comment on above: Arrived Start: 05-30-2024 Hemoglobin A1c measurement Diabetes: Hemoglobin A1C [facility] Start: 05-30-2024 End: 05-30-2024 Patient encounter procedure 05/30/2024 8:45 AM EDT Office Visit [facility] [address] [place] [phone] Awilda Delatorre, [address] [place] [address] [facility] 230 Start: 04-16-2024 Influenza vaccination N [facility] Start: 09-06-2019 DTaP,Tdap and Td Vaccines (8 - Td or Tdap) DTaP,Tdap and Td Vaccines (8 - Td or Tdap) [facility] Start: 04-16-2019 Influenza vaccination Flu vaccine (# 1) [place], [place] Start: 2016 Cervical cancer screen Cervical canc er screen [place], [place] Start: 2016 Screening for malign ant neoplasm of cervix Pap Smear [facility] Start: 2014 DTaP,Tdap and Td Vaccines (1 - Tdap) DTaP,Tdap and Td Vaccines (1 - Tdap) [facility] Start: 2014 Urine screening for protein Diabetes: Urine Protein Screening [facility] Start: 2013 Adult BMI Follow Up Plan Adult BMI Follow Up Plan [facility] Start: 2013 Adult BMI Screening Adult BMI Screen ing [facility] Start: 2013 Diabetic foot examination Diabetic Foot Exam [facility] Start: 2011 Chlamydia screen Chlamydia screen [place], [place] Start: 2010 HIV screen HIV screen [place] Start: 2007 Depression Screening Depression Scre ening [facility] Start: 2007 Tobacco Screening Tobacco Screening [facility] Start: 2006 DTaP/Tdap/Td vaccine (1 - Tdap) DTaP/Tdap/Td vaccine (1 - Tdap) [place], [place] Start: 2006 HPV vaccine (1 - Fem tarun 2-dose series) HPV vaccine (1 - Female 2-dose series) [place], [place] Start: 2005 Glaucoma screening Diabetes: R etinopathy Screening [facility] Start: 1996 Varicella Vaccine (1 of 2 - 2-dose childhood series) Varicella Vaccine (1 of 2 - 2-dose childhood series) [place], [place] Start: 1995 Glaucoma screening Diabetic Op hthalmology Exam [facility] Start: 1995 Urine screening for protein Urine Microalbumin [facility] End: 08-14-2025 Comprehensive metabolic 2000 panel - Serum or Plasma Comprehensive metabolic panel Lab Routine with type 2 diabetes mellitus in second trimester 1 Occurrences starting 08/14/2024 until 08/14/2025 [employer] Work Phone: Comment on above: 1 Occurrences starti ng 08/14/2024 until 08/14/2025 End: 08-14-2025 ECG 12 lead ECG 12 lead ECG Routine with type 2 diabetes mellitus in second trimester Long Q-T syndrome 1 Occurrences starting 08/14/2024 until 08/14/2025 [facility] Comment on above: 1 Occurrences starti ng 08/14/2024 until 08/14/2025 End: 08-14-2025 Thyroid profile includes TSH FT4 Thyroid profile includes TSH FT4 Lab Routine with type 2 diabetes mellitus in second trimester 1 Occurrences starting 08/14/2024 until 08/14/2025 [facility] Comment on above: 1 Occurrences starti ng 08/14/2024 until 08/14/2025 Immunizations Immunization Date Immunization Notes Care Provider Marilee hicks 09-06-2009 tetanus toxoid, redu keron diphtheria toxoid, and acellular pertussis vaccine, adsorbed Darío Floro CN Work Phone: [facility] 08-25-2007 meningococcal polysaccharide (groups A, C, Y and W-135) diphtheria toxoid conjugate vaccine (MCV4P) Darío Floro CN Work Phone: [facility] 08-25-2007 tetanus toxoid, redu keron diphtheria toxoid, and acellular pertussis vaccine, adsorbed Darío Floro CNM Work Phone: [facility] 08-25-2007 varicella virus vaccine Madeline gabbie Floro CN Work Phone: [facility] 09-06-2000 diphtheria, tetanus toxoids and acellular pertussis vaccine, unspecified formulation Darío Floro CNM Work Phone: [facility] 09-06-2000 measles, mumps and r ubella virus vaccine Darío Floro CNM Work Phone: [facility] 09-06-2000 poliovirus vaccine, unspecified formulation Darío Floro CNM Work Phone: [facility] 12-24-1996 varicella virus vaccine Madeline gabbie Floro CNM Work Phone: [facility] 10-12-1996 diphtheria, tetanus toxoids and acellular pertussis vaccine, unspecified formulation Darío Floro CNM Work Phone: [facility] 10-12-1996 haemophilus influenz ae type b vaccine, conjugate unspecified formulation Darío Floro CN Work Phone: [facility] 10-12-1996 measles, mumps and r ubella virus vaccine Darío Floro CNM Work Phone: [facility] 02-25-1996 diphtheria, tetanus toxoids and acellular pertussis vaccine, unspecified formulation Darío Floro CNM Work Phone: [facility] 02-25-1996 haemophilus influenz ae type b vaccine, conjugate unspecified formulation Darío Floro CNM Work Phone: [facility] 02-25-1996 hepatitis B vaccine, pediatric or pediatric/adolescent dosage Darío Floro CNM Work Phone: [facility] 02-25-1996 poliovirus vaccine, unspecified formulation Darío Floro CNM Work Phone: [facility] 1995 diphtheria, tetanus toxoids and acellular pertussis vaccine, unspecified formulation Darío Floro CNM Work Phone: [facility] 1995 haemophilus influenz ae type b vaccine, conjugate unspecified formulation Darío Floro CNM Work Phone: [facility] 1995 poliovirus vaccine, unspecified formulation Darío Floro CNM Work Phone: [facility] 1995 diphtheria, tetanus toxoids and acellular pertussis vaccine, unspecified formulation Darío Floro CNM Work Phone: [facility] 1995 haemophilus influenz ae type b vaccine, conjugate unspecified formulation Darío Floro CNM Work Phone: [facility] 1995 hepatitis B vaccine, pediatric or pediatric/adolescent dosage Darío Floro CNM Work Phone: [facility] 1995 poliovirus vaccine, unspecified formulation Darío Floro CNM Work Phone: [facility] 1995 hepatitis B vaccine, pediatric or pediatric/adolescent dosage Darío Floro CNM Work Phone: [facility] Payers Date Payer Category Payer Unknown BCBS BCBS OUT OF STATE xxxxxxxxxxxx 2019-Present [address] [place] [address] xxxxxxxxxxxx [id number] 2019 Blue Cross Blue Shield BCBS [id number] 2019 Blue Cross Blue [facility] - Other [id number]. [id number] 2019 Unknown [id number] 2016 Unknown [id number]. [id number]. [id number] 1995 Unknown [id number] 2.16840.1.977630.3.579.2. 173 1995 Unknown [id number] 2.840.1.579336.3.579.2. 1286 1995 Unknown [id number] 2.16840.1.640166.3.579.2. 1286 1995 Unknown [id number] 2.16840.1.781619.3.579.2. 1286 1995 Unknown [id number] 2.16840.1.736367.3.579.2. 1286 1995 Unknown [id number] 2.16840.1.655701.3.579.2. 1286 1995 Unknown [id number] 2.16.840.1.605672.3.579.2. 1286 1995 Unknown [id number] 2.16.840.1.124609.3.579.2. 1286 1995 Unknown [id number] 2.16.840.1.235236.3.579.2. 1285 1995 Unknown [id number] 2.16.840.1.229084.3.579.2. 128 1995 Unknown [id number] 2.16.840.1.005825.3.579.2. 1285 1995 Unknown [id number] 2.16.840.1.506459.3.579.2. 1285 1995 Unknown [id number] 2.16.840.1.289798.3.579.2. 1258 1995 Unknown [id number] 2.16.840.1.439321.3.579.2. 1258 1995 Unknown [id number] 2.16.840.1.584553.3.579.2. 1258 1995 Unknown [id number] 2.16.840.1.519250.3.579.2. 1258 1995 Unknown [id number] 2.16.840.1.084818.3.579.2. 1258 1995 Unknown [id number] 2.16.840.1.027424.3.579.2. 1258 1995 Unknown [id number] 2.16.840.1.282466.3.579.2. 1258 1995 Unknown [id number] 2.16.840.1.997293.3.579.2. 1258 1995 Unknown [id number] 2.16.840.1.996067.3.579.2. 1258 1995 Unknown [id number] 2.16.840.1.415351.3.579.2. 1258 1995 Unknown [id number] 2.16.840.1.880220.3.579.2. 1259 1995 Unknown [id number] 2.16.840.1.040157.3.579.2. 1259 1995 Unknown [id number] 2.16.840.1.071510.3.579.2. 1259 1995 Unknown [id number] 2.16.840.1.544097.3.579.2. 1259 1995 Unknown [id number] 2.16.840.1.521252.3.579.2. 1259 1995 Unknown [id number] 2.16.840.1.981244.3.579.2. 1259 Social History Date Type Detail Facility [facility] if [facility] [place] Start: 1995 Sex Assigned At Not [facility] [place] Start: 02-10-2023 End: 07-25-2024 Tobacco smoking status SDIS Never smoked tobacco [facility] Start: 02-10-2023 [...] to any clubs or organizations such as episcopalian groups, unions, fraternal or athletic groups, or [...] - these days [OSQ] Not at all [facility] (I/We) worried wheth er (my/our) food would run out before (I/we) got money to buy more. Never true [facility] Start: 02-11-2023 Alcohol Comment 3 or 4 drinks on typical day / monthly or less. Caffeine: 1-2 cups/day [facility] Start: 1995 Sex assigned at Female [facility] Start: 02-08-2023 Gender identity Identifies as female gender (finding) [facility] Start: 05-16-2024 [facility] Start: 08-14-2024 End: 11-09-2024 Alcoholic beverage intake Ex-drinker (finding) [facility] Start: 03-19-2015 End: 07-25-2024 Sex Female (finding) [facility] Medical Equipment Procedure Code Equipment Code Equipment Origin al Text Equipment Identifier Dates [id number] Start: 11-29-2023 End: 11-28-2024 Check urine for ketones if blood sugar/glucose 200 or above daily as needed. Use as directed. [id number] Start: 08-14-2024 USE DIRECTED FIVE TIMES DAILY [id number] Start: 10-03-2024 Functional Status Date Assessment Result Facility 12-07-2024 Patient Health Quest ionnaire 2 item (PHQ-2) [Reported] [facility] Clinical Notes 05-03-2024 to 12-26-2024 Darío Banuelos CNM - 12/26/2024 4:00 PM Stephanie Hughes LPN - 12/25/2024 10:20 AM Jaylen Banuelos CNM - 12/11/2024 4:00 PM Sal Delatorre DO - 12/07/2024 8:37 AM EDT Note Date & Type Note Facility 12-26-2024 History of Presen t illness Narrative Subjective No chief complaint on file. Reginald Reyes is a 29 y.o. at 32w1d with a working estimated date of delivery of 02/19/2025, by Ultrasound who presents for a routine visit. She denies vaginal bleeding, leakage of fluid, decreased movements, or contractions. OB History Para Term AB Living 1 0 0 0 0 0 SAB IAB Ectopic Multiple Live Births 0 0 0 0 0 # Outcome Date GA Lbr Giorigo/2nd Weight Sex Type Anes PTL Lv 1 Current Her is complicated by: type 2 diabetes, PCOS, h/o elevated triglycerides, Pt will do all nst's and bpp's at [place] per Dr Sam Objective Physical Exam Weight: [...] a routine visit. documented in this encounter [facility] 12-25-2024 History of Presen t illness Narrative Reason for Appointment: Patient ID: Reginald Reyes is a 29 y.o. female who [...] nursing note reviewed. Exam conducted with a internal control consultant present. Vitals: Estimated body mass index is [...] resulted Patient presents today for referral from [facility] due to Type 2 Diabetes and . Patient is setup for NST/BPP Bi-Weekly/Weekly at [facility]'s office. Patient voiced that she was seen at [facility] for anatomy Scan. Advised patient that it is preferred to have NST/BPP at [facility] for co-management in . Patient is agreeable with having location changed. Order will be given to patient today to have setup at [facility]. Discussed delivery with patient and if sugars are controlled well with insulin then she will be able to delivery at 39 weeks gestation, but if sugars are not well controlled then delivery would be recommended at 38 weeks to prevent issues with placenta. Patient is currently taking Aspirin 81mg daily. FHT 145, patient to continue care with [facility] and reach out to office with any concerns. Documented by Estelle Hughes LPN on behalf of: Henry Sam DO documented in this encounter [facility] 12-11-2024 History of Presen t illness Narrative Subjective No chief complaint on file. Reginald Reyes is a 29 y.o. at 30w0d [...] during . Managed by Awilda Crowley in [place]. Did see MFM Objective Physical Exam Expected [...] a routine visit. documented in this encounter [facility] 12-07-2024 History of Presen t illness Narrative [...] if they have any problems or questions. Reginald Reyes is doing very well and encouraged [...] from the original note were not included. Reginald Reyes is a 29 y.o. female presents with chief complaint of Diabetes HPI: Diabetes Mellitus Follow-up: Reginald Reyes is here for follow-up evaluation of [...] in the evening (1000 MG TABS) Labs [facility] HEMOGLOBIN A1C/HEMOGLOBIN.TOTAL:MFR:PT:BLD: QN: 5.7 Outpatient prescription Medication marked as long-term The ASCVD Risk score ([place] DK, et al., 2019) failed to calculate [...] if they have any problems or questions. Reginald Reyes is doing very well and encouraged [...] the patient today. documented in this encounter [facility] 11-15-2024 History of Presen t illness Narrative Subjective No chief complaint on file. Reginald Reyes is a 29 y.o. at 26w2d [...] a routine visit. documented in this encounter [facility] 11-08-2024 History of Presen t illness Narrative Reginald Queenie Eric Date of visit: 11/08/2024 Date of : 1995 Age: 29 y.o. Patient Active Problem List Diagnosis Abnormal glucose Insulin resistance Mixed hyperlipidemia PCOS (polycystic ovarian syndrome) 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 mellitus without complication ([facility]) Pre-existing type 2 diabetes mellitus during in [...] by mouth in the morning. 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 She followed up with a pediatric lpn but no intervention was performed since the [...] Past Medical History: Diagnosis Date Diabetes mellitus ([facility]) Hyperlipidemia Insulin resistance Long Q-T syndrome Prolonged [...] Resource Strain: Low Risk (06/07/2024) Received from [facility] Overall Financial Resource Strain (CARDIA) Difficulty of Paying Living Expenses: Not hard at all Food Insecurity: No Food Insecurity (11/08/2024) Hunger Screening Food Insecurity - Worry: Never True Food Insecurity - Inability: Never True Transportation Needs: No Transportation Needs (06/07/2024) Received from [facility] PRAPARE - Transportation Lack of Transportation (Medical): No Lack of Transportation (Non-Medical): No Physical Activity: Sufficiently Active (06/07/2024) Received from [facility] Exercise Vital Sign Days of Exercise per Week: 5 days Minutes of Exercise per Session: 30 min Stress: No Stress Concern Present (06/07/2024) Received from [facility] [employer] [place] of Occupational Health - Occupational Stress Questionnaire Feeling of Stress : Not at all Social Connections: Socially Integrated (06/07/2024) Received from [facility] Social Connection and Isolation Panel [NHANES] Frequency of Communication with Friends and Family: More than three times a week Frequency of Social Gatherings with Friends and Family: Three times a week Attends Scientologist Services: More than 4 times per year Active Member of Clubs or Organizations: Yes Attends Club or Organization Meetings: More than 4 times per year Marital Status: Interpersonal Safety: Not At Risk (04/09/2023) Received from [facility], [facility] Humiliation, Afraid, Rape, and Kick questionnaire Fear of Current or Ex-Partner: No Emotionally Abused: No Physically Abused: No Sexually Abused: No Housing Instability: Low Risk (06/07/2024) Received from [facility] Housing Stability Vital Sign Unable to Pay [...] Wt 107.7 kg (237 lb 6.4 oz) LMP 05/02/2024 SpO2 98% BMI 34.06 kg/m Orders Placed or Reconciled This Encounter Medications insulin lispro (HumaLOG) 100 unit/mL injection Sig: Inject under the skin 3 (three) times a day before meals. As directed There are no discontinued medications. IMPRESSIONS/PLAN 1. Long Q-T syndrome - [facility] - Electrophysiology - [place], [place] - POCT EKG 2. Hx of prolonged [...] Referring Physician: Aye Saucedo MD [address] [place] [address] documented in this encounter [facility] 11-07-2024 Miscellaneous Notes [employer] MESSAGE REMINDER SENT TO PT TO REMIND OF PPC APPT. documented in this encounter [facility] 11-07-2024 Telephone encounter Note [employer] MESSAGE REMINDER SENT TO PT TO REMIND OF PPC APPT. [facility] 10-10-2024 History of Presen t illness Narrative REASON FOR TELEMEDICINE VIDEO OFFICE VISIT: Suspected Maternal prolonged QT ruled out. HISTORY OF PRESENT ILLNESS: Reginald Reyes is a pleasant 29 y.o. G 1 P0 at 21w1d due on Estimated Date of Delivery: 02/19/25 . has been complicated with Pre gestational type 2 diabetes on insulin. Patient diabetes is managed by her template reproduction technician and not by [facility]. Patient is comfortable with her template reproduction technician. Blood glucose are adequately controlled. Suspected prolonged QT syndrome. Patient was told as a child so she might a borderline prolonged QT syndrome. No intervention was done. Patient then was lost for follow-up and has not seen manager center for more than 10 years. Therefore the [...] syndrome) 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 mellitus without complication ([facility]) Long Q-T syndrome Pre-existing type 2 diabetes [...] Past Medical History: Diagnosis Date Diabetes mellitus ([facility]) Hyperlipidemia Insulin resistance Long Q-T syndrome Prolonged [...] completion of targeted anatomy and echocardiography at [facility]. 2. Serial growth ultrasounds every 4 weeks after 24 weeks gestation at her OB office. 3. No evidence of prolonged QT on baseline EKG and after meeting with cardiology. 4. InCase electrophysiology also rules out prolonged QT patient should be considered low risk and can be delivered at her local hospital. 5. Patient diabetes is managed through endocrinology and [facility] not involved and therefore no input from [facility]. 6. Initiate testing form twice weekly NST and weekly DL at 32 weeks gestation until delivery at her local hospital. 7. At 39 weeks gestation based on pre gestational type 2 diabetes on insulin. Thank you for allowing me to participate in [facility]. If there are any questions, please do not hesitate to call me. Sincerely, CLARKE MODI MD Video Visit via Real-time Synchronous Audiovisual Provider Location: [facility] [address] [address] Patient Location: Patient's home Patient Location Digital Data Analyst: None Video Visit Consent Statement: I discussed [...] that there are some limitations compared to [id number] evaluations. We elected to proceed. documented in this encounter [facility] 10-09-2024 History of Presen t illness Narrative [...] from the original note were not included. Reginald Reyes is a 29 y.o. female presents with chief complaint of Diabetes HPI: Diabetes Mellitus Follow-up: Reginald Reyes is here for follow-up evaluation of [...] in the evening (1000 MG TABS) Labs [facility] HEMOGLOBIN A1C/HEMOGLOBIN.TOTAL:MFR:PT:BLD: QN: 5.7 Outpatient prescription Medication marked as long-term The ASCVD Risk score ([place]ilson DK, et [...] complication, without long-term current use of insulin ([facility]) Relevant Orders POCT glycosylated hemoglobin (Hb A1C) [...] the patient today. documented in this encounter [facility] 09-28-2024 History of Presen t illness Narrative Subjective No chief complaint on file. Reginald Reyes is a 29 y.o. at 19w3d [...] complication, without long-term current use of insulin ([facility]) Continue vitamin. Labs reviewed Follow up in 2 weeks for a routine visit. documented in this encounter [facility] 09-19-2024 History of Presen t illness Narrative Reginald Reyes Date of visit: 09/19/2024 Date of : 1995 Age: 29 y.o. 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 She stopped seeing a pediatric lpn age of 18 Since she is now 18 weeks we are have been asked to evaluate her for this Today's EKG shows sinus rhythm QT is measured at 382 corrected 420 milliseconds Past Medical History: Diagnosis Date Diabetes mellitus ([facility]) Hyperlipidemia Insulin resistance Long Q-T syndrome Prolonged [...] Resource Strain: Low Risk (06/07/2024) Received from [facility] Overall Financial Resource Strain (CARDIA) Difficulty of Paying Living Expenses: Not hard at all Food Insecurity: No Food Insecurity (09/19/2024) Hunger Screening Food Insecurity - Worry: Never True Food Insecurity - Inability: Never True Transportation Needs: No Transportation Needs (06/07/2024) Received from [facility] PRAPARE - Transportation Lack of Transportation (Medical): No Lack of Transportation (Non-Medical): No Physical Activity: Sufficiently Active (06/07/2024) Received from [facility] Exercise Vital Sign Days of Exercise per Week: 5 days Minutes of Exercise per Session: 30 min Stress: No Stress Concern Present (06/07/2024) Received from [facility] [place] [facility] - Occupational Stress Questionnaire Feeling of Stress : Not at all Social Connections: Socially Integrated (06/07/2024) Received from [facility] Social Connection and Isolation Panel [NHANES] Frequency of Communication with Friends and Family: More than three times a week Frequency of Social Gatherings with Friends and Family: Three times a week Attends Scientologist Services: More than 4 times per year Active Member of Clubs or Organizations: Yes Attends Club or Organization Meetings: More than 4 times per year Marital Status: Interpersonal Safety: Not At Risk (04/09/2023) Received from [facility], [facility] Humiliation, Afraid, Rape, and Kick questionnaire Fear of Current or Ex-Partner: No Emotionally Abused: No Physically Abused: No Sexually Abused: No Housing Instability: Low Risk (06/07/2024) Received from [facility] Housing Stability Vital Sign Unable to Pay [...] Long Q-T syndrome - [facility] [place], [place] - POCT EKG - [facility] - Electrophysiology - [place], [place]; Future 2. 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 mellitus without complication, unspecified whether senior care insulin use ([facility]) 1. Questionable long QT syndrome -she was [...] Procedures [facility] - [facility]rophysiology - [place], [place] POCT EKG FOLLOW UP No follow-ups on file. PCP: LILIANA Peralta Referring Physician: Svetlana Jack PA-C [address] [facility] [address] [place] [address] documented in this encounter [facility] 09-18-2024 Miscellaneous Notes Left message for patient to remind them to bring their most current medication list with them to their appointment. documented in this encounter [facility] 09-18-2024 Telephone encounter Note Left message for patient to remind them to bring their most current medication list with them to their appointment. [facility] 09-11-2024 Miscellaneous Notes Called and spoke to patient regarding lab results (CMP, protein creatinine ratio, and thyroid profile). Informed patient results were received from ORDIS[facility] and Dr. Modi reviewed. Per Dr. Modi, all results within normal limits. Patient verbalizes understanding and denies further questions. documented in this encounter [facility] 09-11-2024 Telephone encounter Note Called and spoke to patient regarding lab results (CMP, protein creatinine ratio, and thyroid profile). Informed patient results were received from [facility]DIS[facility] and Dr. Modi reviewed. Per Dr. Modi, all results within normal limits. Patient verbalizes understanding and denies further questions. [facility] 09-11-2024 History of Presen t illness Narrative [...] diabetes on insulin. HISTORY OF PRESENT ILLNESS: Reginald Reyes is a pleasant 29 y.o. G 1 P0 at 17w0d due on Estimated Date of Delivery: 02/19/25 . has been complicated with Pre gestational type 2 diabetes on insulin. Patient diabetes is managed by her template reproduction technician and not by M. Patient is comfortable with her template reproduction technician. Blood glucose are adequately controlled. Currently NPH 15 units in the morning and 30 units at bedtime. Metformin 500 mg in the morning and 1000 mg at bedtime Suspected prolonged QT syndrome. Patient was told as a child so she might a borderline prolonged QT syndrome. No intervention was done. Patient then was lost for follow-up and has not seen manager center for more than 10 years. Patient is scheduled to see a manager center at her local hospital. Unlikely the patient has prolonged QT syndrome. Currently the patient has no complaints. The patient denies nausea, vomiting, abdominal pain, vaginal bleeding, SOB or chest pain. Patient Active Problem List Diagnosis Long Q-T syndrome Abnormal glucose Insulin resistance Mixed hyperlipidemia PCOS (polycystic ovarian syndrome) 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 mellitus without complication ([facility]) Long Q-T syndrome Pre-existing type 2 diabetes [...] Past Medical History: Diagnosis Date Diabetes mellitus ([facility]) Hyperlipidemia Insulin resistance Long Q-T syndrome Prolonged [...] time place and person. RECOMMENDATION: 1. Since template reproduction technician is managing her blood glucose [facility] will not participate in glucose management during . 2. Targeted anatomy with dedicated echocardiography at [facility] office in [place]. 3. Telemedicine visit in 4 weeks to discuss ultrasound and Cardiology appointment 4. At the moment patient is considered low risk and delivery at 39 weeks gestation via induction of labor at her local hospital based pre gestational type 2 diabetes Thank you for allowing me to participate in Reginald Reyes care. If there are any questions, please do not hesitate to call me. Sincerely, CLARKE MODI MD documented [facility] this [facility] 09-05-[facility]24 Miscellaneous Notes Called patient and left voicemail that Dr Modi reviewed Dexcom log and made no medication changes, she should continues on her current medication doses. Encouraged patient to call office if she has any questions. documented in this encounter [facility] 09-05-2024 Telephone encounter Note Called patient and left voicemail that Dr Modi reviewed Dexcom log and made no medication changes, she should continues on her current medication doses. Encouraged patient to call office if she has any questions. [facility] 09-01-2024 History of Presen t illness Narrative [...] if they have any problems or questions. Reginald Reyes control is stable overall. , The [...] from the original note were not included. Reginald Reyes is a 29 y.o. female presents with chief complaint of Gestational Diabetes HPI: Diabetes Mellitus Follow-up: Reginald Reyes is here for follow-up evaluation of [...] to 34 units at pm by the [facility] in [place] Diet: limiting carbs, sugars and increase protein [...] if they have any problems or questions. Reginaldphylicia Reyes control is stable overall. , The [...] the patient today. documented in this encounter [facility] 08-28-2024 Miscellaneous Notes Called pt to let [...] for next week. documented in this encounter [facility] 08-28-2024 Telephone encounter Note Called pt to let er know that Dr Rian reviewed her dexcom and did not want [...] will pull her dexcom for next week. [facility] 08-28-2024 Miscellaneous Notes error documented in this encounter [facility] 08-28-2024 Telephone encounter Note error [facility] 08-23-2024 History of Presen t illness Narrative REASON FOR OFFICE VISIT: Video Visit via Real-time Synchronous Audiovisual Provider Location: [facility] [address] [address] Patient Location: Patient's home Video Visit Consent [...] that there are some limitations compared to [id number] evaluations. The patient consented to the presence of additional virtual and/or in-person participants. We elected to proceed. 1. Type 2 DM for the past 1.5 years- prefers to have template reproduction technician treat her DM in ; A1c 6.4% 07/10/24 2. PCOS 3. Prolonged QT HISTORY OF PRESENT ILLNESS: Reginald Reyes is a pleasant 28 y.o. at 14w2d due on Estimated Date of Delivery: 02/19/25. Currently the patient has no complaints. The patient denies nausea, vomiting, abdominal pain, vaginal bleeding, SOB or chest pain. She is being followed at [facility] due to Type 2 DM. See media [...] TOTALT4 , THYROIDAB No results found for: [id number] No results found for: CREATININE , BUN [...] 6% has the lowest risk for LGA SUMMARY/RECOMMENDATION: The following is a summary of [...] by provider weekly until set up with template reproduction technician 25 Minutes spent isjz-mr-ratu; more than 50% of time spent counseling and/or coordinating care with additional time for record review and communication to referring provider. GABBY Ledesma 08/23/24 1424 documented in this encounter [facility] [employer] 08-14-2024 History of Presen t illness Narrative Maternal- Medicine Consultation HISTORY OF PRESENT ILLNESS: Reginald Reyes is a 28 y.o. female at [...] - Breakfast: breakfast sandwich Lunch: sandwich and/or palestinian yogurt with fruit and granola Dinner: meat and starch Patient reports she was found to have prolonged QT in high school when sadly one of her classmates of sudden cardiac arrest and the school had EKG's performed on all students. When patient had an abnormal EKG , she was referred to cardiology. She saw Dr Torres - per patient, was told that only with QT [...] Past Medical History: Diagnosis Date Diabetes mellitus ([facility]) Hyperlipidemia Insulin resistance Prolonged QT syndrome SURGICAL [...] more likely to fail compared to insulin. assisted data on children whose mothers took oral [...] Delivery recommendations : - Recommend delivery at [id number] - Poorly controlled, vascular complications, or h/o [...] has follow up with her PCP or template reproduction technician within 4 weeks after delivery - Recommend [...] prandial data. Will also get scheduled for [facility] MD appt to further discuss diabetes and cardiac history. Will get scheduled for anatomy survey I request she keep sending values to us weekly by e-mail to: [email or web address] or by fax to: [phone] Svetlana Jack PA-C Maternal- Medicine Office phone: [phone] Svetlana Jack PA-C 08/14/24 1246 Headache/epigastric pain/blurry [...] no Have you been seen here at [facility] in a previous ? no Recent ER visits or hospitalizations? no Bring blood sugar log or meter with you today? (Please bring them with you for every visit at [facility]) yes Flu vaccine (Jun-October)? no Any concerns that you would like me to mention to the provider today? no documented in this encounter [facility] 08-14-2024 History of Presen t illness [...] Father of fetus Occupation and work hours Head Resident Healthcare providers that care for you: OB Provider Family Doctor Pot Fluxer Name: Darío Banuelos CNM Name: No primary care provider on file. Name: Dr. Jori Delatorre City: City: [facility] Last time seen: 08/03/24 Last time seen: Last time seen: 06/08/2024 Eye Doctor Dentist Other Doctors Name: Name: [facility] Name: City: [facility]: [place] City: Last time seen: never Last time [...] demonstration Is there anything about your culture, latter-day, or personal beliefs we need to know about to care for you: Other None Primary Language spoken: Kyrgyz [22] Primary Language for learning: Kyrgyz Are you currently in a relationship where you are physically hurt, threatened or made to fee afraid? [] Yes [] No Lead Customer Service Representative needed? [] Yes [] No Marital status/Living [...] If yes, where: On thge following scale, chenega the number, which describes your current level [...] Past Medical History: Diagnosis Date Diabetes mellitus ([facility]) Hyperlipidemia Insulin resistance Prolonged QT syndrome OB [...] Educational Level bachelors degree Family issues stable Cultural/ethnic/holiness influences denies Exercise approved by MD? Yes Current Exercise program barre/volleyball Who prepares the meal pt Who purchase food at your home? pt Equipment use for cooking/food storage has all Food Assistance(Ex.WIC, Food [place]) declined Dining out Yes 3 times per week Appetite/Appetite changes decreased Weight History loosing with monjaro Do you have cats at home? Feeding Plans Breast Feeding If you have cats, who cleans the litter box? Cravings/Aversions/Pica breakfast food Nutrition Assessment Worksheet: Week/Weekend Food Recall Breakfast Breakfast sandwich Or protein bar/ shake Snack Lunch Lunch meat and cheese stick Frisian yogurt w/ berries and granola or salad Snack Protein bar Or chips Or fruit Dinner Meat + starch Snack Snack Time Reginald Marin presents for diet instruction per doctor [...] time 30 minutes. documented in this encounter [facility] 08-03-2024 History of Presen t illness Narrative Subjective No chief complaint on file. Reginald Reyes is a 28 y.o. at 11w3d [...] coma, without long-term current use of insulin ([facility]) Urine protein-negative Urine glucose-negative Continue vitamin. Labs reviewed. Patient states she has been watching her sugar closely but states I could do better. We did discuss the importance of maintaining good glucose control in and she does have an appt with [facility] on 08/14/24. Follow up in 4 weeks for a routine visit. documented in this encounter [facility] 07-10-2024 History of Presen t illness Narrative Subjective No chief complaint on file. Reginald Reyes is a 28 y.o. at 8w0d [...] reviewed this encounter and updated as appropriate: @RULESMARTLINK([id number],TOBYESPROV )@@RULESMARTLINK([id number],ALGYESPR OV)@@RULESM ARTLINK([id number],MEDYESPROV)@@RULE SMARTLINK([id number],PROBYESPROV)@@R ULESMARTLIN K([id number],MHYESPROV)@@RULESMARTLI NK([id number],SHYESPROV)@@RULESMARTL INK([id number], FHYESPROV)@@RULESMARTLINK([id number] ,SOHYESPROV)@ Objective Physical Exam weight: 246 lb, Pregravid BMI: 35.30 Expected Total Weight Gain: 11 lb-19 lb BP: 120/76 Labs Imaging Assessment/Plan Urine protein-negative Urine glucose-negative Continue vitamin. Labs reviewed. Order placed for anatomy scan at 20 weeks. Follow up in 4\ weeks for a routine visit. documented in this encounter [facility] 06-08-2024 History of Presen t illness Narrative Associated Problem(s): 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 mellitus without complication, without long-term current use of insulin ([facility]) During the appointment today all pertinent labs, [...] if they have any problems or questions. Reginald Reyes is doing very well and encouraged on this. , Will stay on current medications. She is trying to get and bg are in a good range and she is on safe medications for this. Images from the original note were not included. Reginald Reyes is a 28 y.o. female presents with chief complaint of Diabetes HPI: Diabetes Mellitus Follow-up: Reginald Reyes is here for follow-up evaluation of [...] complication, without long-term current use of insulin ([facility]) During the appointment today all pertinent labs, [...] if they have any problems or questions. Reginald Reyes is doing very well and encouraged [...] the patient today. documented in this encounter [facility] 05-03-2024 Telephone encounter Note [facility] calling to clarify directions for letrozole 2.5mg. It has 2 different sets of directions one tab per day/2 tabs per day. Emanuel will take a verbal [phone]. Thank you. [facility] 05-03-2024 Miscellaneous Notes Emanuel from [employer] calling to clarify directions for letrozole 2.5mg. It has 2 different sets of directions one tab per day/2 tabs per day. Emanuel will take a verbal [phone]. Thank you. documented in this encounter [facility] Evaluation note Diagnosis 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 mellitus [...] of insulin (CMS/HCC) documented in this encounter [facility] HealthcareEvaluation note* Diagnosis 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 [...] first trimester- Primary documented in this encounter [facility]* Diagnosis 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 [...] of insulin (CMS/HCC) documented in this encounter [facility] note* Diagnosis Pre-existing type 2 diabetes mellitus in in first trimester documented in this encounter [facility]* Diagnosis with type 2 diabetes mellitus in second trimester- Primary Long Q-T syndrome Long QT syndrome documented in this encounter [facility]* Diagnosis with type 2 diabetes mellitus in second trimester- Primary documented in this encounter [facility]* Diagnosis with type 2 diabetes mellitus in second trimester- Primary documented in this encounter [facility]* Diagnosis 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 mellitus without complication, unspecified whether senior care insulin use (CMS-HCC)- Primary documented in this encounter [facility]* Diagnosis 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 [...] second trimester- Primary documented in this encounter [facility] HealthcareEvaluation note* Diagnosis Pre-existing type 2 diabetes mellitus during in second trimester- Primary Long Q-T syndrome Long QT syndrome documented in this encounter [facility]* Diagnosis Pre-existing type 2 diabetes mellitus during in second trimester- Primary documented in this encounter [facility]* Diagnosis Long Q-T syndrome- Primary Long QT syndrome 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 mellitus without complication, unspecified whether senior care insulin use (CMS-HCC) documented in this encounter [facility]* Diagnosis 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 [...] of insulin (CMS/HCC) documented in this encounter [facility] HealthcareEvaluation note* Diagnosis 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 [...] of insulin (CMS/HCC) documented in this encounter [facility] HealthcareEvaluation note* Diagnosis Pre-existing type 2 diabetes mellitus during in second trimester- Primary documented in this encounter [facility]* Diagnosis Long Q-T syndrome- Primary Long QT syndrome Hx of prolonged Q-T interval on ECG documented in this encounter [facility]* Diagnosis 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 [...] (GDM) requiring insulin documented in this encounter [facility]* Diagnosis 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 mellitus [...] in second trimester documented in this encounter [facility] note* Diagnosis 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 mellitus [...] in third trimester documented in this encounter [facility] HealthcareEvaluation note* Diagnosis 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 mellitus [...] in third trimester documented in this encounter [facility] Healthcare[facility] note* Diagnosis 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 mellitus [...] 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 mellitus treated with insulin ([facility]) documented in this encounter [facility] HealthcareInstructionsNot on filedocumented in this [facility] SystemInstructionsNot on filedocumented in this [facility] on filedocumented in this [facility] [place]ructions[place] on filedocumented in this [facility] System InstructionsNot on filedocumented in this [facility] System InstructionsNot on filedocumented in this [facility] InstructionsNot on filedocumented in this [facility] InstructionsNot on filedocumented in this [facility] InstructionsNot on filedocumented in this [facility] InstructionsNot on filedocumented in this [facility] [place] InstructionsNot on filedocumented in this [facility] Advance Directives Documents on File Type Date Recorded 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 Expl anation Advance Directives and Living Will Power of Certified Legal Secretary Specialist Summary Purpose Family History No Family History Records FoundNo Family History Records FoundNo Family History Records FoundNo Family History Records FoundNo Family History Records Found Additional Source Comments INFORMATION SOURCE (unrecogn ized section and content) DATE CREATED AUTHOR 07/06/2019 [facility] DATE CREATED AUTHOR AUTHOR'S ORGANIZ ATION 08/14/2024 [facility] DATE CREATED AUTHOR AUTHOR'S ORGANIZ ATION 10/12/2024 [facility] DATE CREATED AUTHOR AUTHOR'S ORGANIZ ATION 11/09/2024 [facility] DATE CREATED AUTHOR AUTHOR'S ORGANIZ ATION 12/31/2024 [facility] Reason for Visit (unrecogniz ed section and content) Reason Comments Diabetes Reason Comments Type 2 Diabetes affecting Specialty Diagnoses / Procedures Referred By Contac t Referred To Contact Maternal and Medicine Diagnoses Pre-existing type 2 diabetes mellitus in in first trimester Darío Banuelos APRN-SADIA [address] [place] [address] Phone: tel: fax: Maternal- Medicine at [facility] [address] [place] [address] Phone: tel: fax: Referral ID Status Reason Start Date Expiration Date Visits Requested Visits Authorized [id number] Pending Review Specialty Services Required 4 07/25/2025 1 1 Reason Comments T2DM Reason Comments Gestational Diabetes Reason Comments Type 2 Diabetes Reason Comments 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 - Long Q-T sy ndrome SEEN CARDIO A CHILD 10 + YRS AGO SCHED W/PT Specialty Diagnoses / Procedures Referred By Contac t Referred To Contact Cardiology Diagnoses Long Q-T syndrome Svetlnaa Jack, GIRISH [address] [place] [address] Phone: tel: fax: [facility] [address] [place] [address] Phone: tel: fax: Referral ID Status Reason Start Date Expiration Date Visits Requested Visits Authorized [id number] Pending Review Specialty Services Required 4 08/14/2025 1 1 Reason Comments 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 - ref by RRK for long QT syndrome - no labs/testing - appt sched w/ pt PATIENT IS 25 WEEKS Specialty Diagnoses / Procedures Referred By Michael felton Referred To Contact Cardiology Diagnoses Long Q-T syndrome Aye Saucedo MD [address] [place] [address] Phone: tel: fax: [facility] [address] [facility] [address] [place] [address] Phone: tel: fax: Referral ID Status Reason Start Date Expiration Date Visits Requested Visits Authorized [id number] Pending Review Specialty Services Required 09/19/2024 09/19/2025 1 1 Reason Comments Consult Patient is a Wanda Donnell ro referral to Dr. Sam for Type II diabetes insulin required. Specialty Diagnoses / Procedures Referred By Michael felton Referred To Contact Obstetrics and Gynecology Diagnoses with type 2 diabetes mellitus in third trimester Procedures DE OFFICE/OUTPATIENT NEW HIGH MDM 60 MINUTES Darío Banuelos, CNM [address] [place] [address] Phone: tel: fax: Henry Sam, [address] [place] [address] Phone: tel: fax: Referral ID Status Reason Start Date Expiration Date V isits Requested Visits Authorized [id number] Closed Specialty Services Required 12/20/2024 06/18/2025 1 1 Care Teams (unrecognized sec tion and content) Concert Promoter Relationship Specialty Start Date End Date Unallocated, Noms Provider, [address] [place] [address] PCP - General 04/16/23 Awilda Delatorre DO [address] [facility] [address] [place] [address] PCP - [place] [employer] 06/16/23 Darío Banuelos CN [address] [place] [address] Obstetrics and Gynecology 02/10/23 Concert Promoter Relationship Specialty Start Date End Date Unallocated, Noms ProviderMD [address] [place] [address] PCP - General 04/16/23 Awilda Delatorre, DO [address] [place] [address] [place] [address] PCP - [place] [employer] 06/16/23 Darío Banuelos CN [address] [place] [address] Obstetrics and Gynecology 02/10/23 Concert Promoter Relationship Specialty Start Date End Date Unallocated, Noms ProviderMD [address] [place] [address] PCP - General 04/16/23 Awilda Delatorre, DO [address] [place] [address] [place] [address] PCP - [place] [employer] 06/16/23 Darío Banuelos CN [address] [place] [address] Obstetrics and Gynecology 02/10/23 Concert Promoter Relationship Specialty Start Date End Date Unallocated, Noms ProviderMD [address] [place] [address] PCP - General 04/16/23 Awilda Delatorre, DO [address] [place] [address] [place] [address] PCP - [place] [employer] 06/16/23 Darío Banuelos, CN [address] [place] [address] Obstetrics and Gynecology 02/10/23 Concert Promoter Relationship Specialty Start Date End Date Darío Banuelos APRN-CNM [address] [facility] [place] [address] PCP - General Nurse Pearler 04/15/18 Concert Promoter Relationship Specialty Start Date End Date Darío Banuelos WWE WRESTLER-CNM [address] [facility] [place] [address] PCP - General Nurse Pearler 04/15/18 Concert Promoter Relationship Specialty Start Date End Date Darío Banuelos APRN-CNM [address] [facility] [place] [address] PCP - General Nurse Pearler 04/15/18 Concert Promoter Relationship Specialty Start Date End Date Darío Banuelos APRN-CN [address] [facility] [place] [address] PCP - General Nurse Pearler 04/15/18 Concert Promoter Relationship Specialty Start Date End Date Darío Banuelos WWE WRESTLER-CNM [address] [place] [address] PCP - General Nurse Pearler 04/15/18 Concert Promoter Relationship Specialty Start Date End Date Unallocated, Noms MD Dian [address] [place] [address] PCP - General 04/16/23 Awilda Delatorre DO [address] [place] [address] [place] [address] PCP - [place] [employer] 06/16/23 Darío Banuelos CNM [address] [place] [address] Obstetrics and Gynecology 02/10/23 Concert Promoter Relationship Specialty Start Date End Date Darío Banuelos WWE WRESTLER-CN [address] [place] [address] PCP - General Nurse Pearler 04/15/18 Concert Promoter Relationship Specialty Start Date End Date Darío Banuelos [facility] [address] [place] [address] PCP - General Nurse Pearler 04/15/18 Concert Promoter Relationship Specialty Start Date End Date Darío Banuelos WWE WRESTLER-[facility] [address] [place] [address] PCP - General Nurse Pearler 04/15/18 Concert Promoter Relationship Specialty Start Date End Date Darío Banuelos WWE WRESTLER-[facility] [address] [place] [address] PCP - General Nurse Pearler 04/15/18 Concert Promoter Relationship Specialty Start Date End Date Unallocated, Noms MD Dian [address] [place] [address] PCP - General 04/16/23 Awilda Delatorre, [address] [place] [address] [place] [address] PCP - [place] [employer] 06/16/23 Darío Banuelos CNM [address] [place] [address] Obstetrics and Gynecology 02/10/23 Concert Promoter Relationship Specialty Start Date End Date Unallocated, Noms Provider, [address] [place] [address] PCP - General 04/16/23 Awilda Delatorre, DO [address] [place] [address] [place] [address] PCP - [place] [employer] 06/16/23 Darío Banuelos CNM [address] [place] [address] Obstetrics and Gynecology 02/10/23 Concert Promoter Relationship Specialty Start Date End Date Unallocated, Noms Provider, [address] [place] [address] PCP - General 04/16/23 Awilda Delatorre, DO [address] [facility] [address] [place] [address] PCP - [place] [employer] 06/16/23 Darío Banuelos CNM [address] [place] [address] Obstetrics and Gynecology 02/10/23 Concert Promoter Relationship Specialty Start Date End Date Darío Banuelos APRN-CNM [address] [place] [facility] [place] [address] PCP - General Nurse Pearler 04/15/18 Concert Promoter Relationship Specialty Start Date End Date Darío Banuelos APRN-CNM [address] [place] [address] PCP - General Nurse Pearler 04/15/18 Concert Promoter Relationship Specialty Start Date End Date Unallocated, Noms Provider, [address] [place] [address] PCP - General 04/16/23 Awilda Delatorre, DO [address] [place] [address] PCP - [place] [employer] 06/16/23 Darío Banuelos CNM [address] [place] [address] Obstetrics and Gynecology 02/10/23 Concert Promoter Relationship Specialty Start Date End Date Unallocated, Samaria Biggs MD [address] [place] [address] PCP - General 04/16/23 Awilda Delatorre, DO [address] [place] [address] PCP - [place] [employer] 06/16/23 Darío Banuelos CNM [address] [place] [facility] [place] [address] Obstetrics and Gynecology 02/10/23 Concert Promoter Relationship Specialty Start Date End Date Unallocated, Samaria ProviderMD [address] [place] [address] PCP - General 04/16/23 Awilda Delatorre, DO [address] [address] [place] [address] PCP - [place] [employer] 06/16/23 Darío Banuelos CNM [address] [place] [address] Obstetrics and Gynecology 02/10/23 Concert Promoter Relationship Specialty Start Date End Date Unallocated, Samaria Biggs MD [address] [facility] [place] [address] PCP - General 04/16/23 Darío Banuelos CNM [address] [place] [address] Obstetrics and Gynecology 02/10/23 Concert Promoter Relationship Specialty Start Date End Date Unallocated, Samaria Biggs MD [address] [facility] [place] [address] PCP - General 04/16/23 Darío Banuelos CNM [address] [place] [address] Obstetrics and Gynecology 02/10/23 Concert Promoter Relationship Specialty Start Date End Date Unallocated, Samaria Biggs MD [address] [facility] [place] [address] PCP - General 04/16/23 Darío Banuelos CNM [address] [place] [address] Obstetrics and Gynecology 02/10/23 Concert Promoter Relationship Specialty Start Date End Date Unallocated, Samaria Biggs MD [address] [place] [address] PCP - General 04/16/23 Darío Banuelos CNM [address] [place] [address] Obstetrics and Gynecology 02/10/23 Concert Promoter Relationship Specialty Start Date End Date Unallocated, Samaria Biggs MD [address] [facility] [place] [address] PCP - General 04/16/23 Darío Banuelos CNM [address] [place] [address] Obstetrics and Gynecology 02/10/23 FOR RECORDS PERTAINING [...] BE BASED ON THE PRIMARY CLINICAL RECORDS. [employer] [facility]. provides no warranty or guarantee of the accuracy or completeness of information in this document.
[2025-01-02 07:11] VITALS: BP 119/62; PULSE 78
== END 2025-01-02 08:36 | disposition home or self-care (01) ==
LOC: FBCO 07:02 → FBC 07:07
PROVIDERS: Visit Provider Obstetrics & Gynecology
DX: O24.313 Unspecified pre-existing diabetes mellitus in pregnancy, third trimester (principal); Z3A.33 33 weeks gestation of pregnancy
CPT/HCPCS: 59025

== ENCOUNTER 2025-01-05 07:02 | Outpatient (OUT) | payer BC, SELFPAY ==
--- OUTSIDE RECORDS SUMMARY | 2024-12-25 10:20 | XMS_ITS | Encounter Summary ---
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 Sam for Type II diabetes insulin required. * OBGYN (Routine) - Closed Specialty Diagnoses / Procedures Referred By Michael felton Referred To Contact Obstetrics and Gynecology Diagnoses with type 2 diabetes mellitus in third trimester Procedures AL OFFICE/OUTPATIENT [facility] MDM 60 MINUTES Flaquita Banuelos, CNM [address] [place] [address] Phone: tel: fax: Henry Sam, DO [address] [place] [address] Phone: tel: fax: Referral ID Status Reason Start Date Expiration Date V isits Requested Visits Authorized [id number] Closed Specialty Services Required 12/20/2024 06/18/2025 1 1 Encounter Details Date Type Department Care Team (Late st Contact Info) Description 12/25/2024 10:20 AM EDT Consult [facility] [address] [place] [address] Henry Sam, DO [address] [place] [address] with type 2 diabetes mellitus in third trimester Social History Tobacco Use Types Packs/Day Years Used Date Smoking Tobacco: Never Smokeless Tobacco: Never Alcohol Use Standard Drinks/Week Comments Yes 0 (1 standard drink = 0.6 oz pure alcohol) 3 or 4 drinks on typical day / monthly or less. Caffeine: 1-2 cups/day B1300 Health Literacy Answer Date Recor ded How often do you need to hav e someone help you when you read instructions, pamphlets, or other written material from your doctor or pharmacy? Never 06/07/2024 Humiliation, Afraid, Rape, and Kick questionnair e Answer Date Recorded Within the last year, have y ou been afraid of your partner or ex-partner? No 04/09/2023 Within the last year, have y ou been humiliated or emotionally abused in other ways by your partner or ex-partner? No Within the last year, have y ou been kicked, hit, slapped, or otherwise physically hurt by your partner or ex-partner? No 04/09/2023 Within the last year, have y ou been raped or forced to have any kind of sexual activity by your partner or ex-partner? No 04/09/2023 Social Connection and Isolat ion Panel [NHANES] Answer Date Recorded In a typical week, how many times do you talk on the phone with family, friends, or neighbors? More than three times a week 06/07/2024 How often do you get togethe r with friends or relatives? Three times a week 06/07/2024 How often do you attend chur or jew services? More than 4 times per year 06/07/2024 Do you belong to any clubs o r organizations such as zoroastrian groups, unions, fraternal or athletic groups, or school groups? Yes 06/07/2024 How often do you attend meet ings of the clubs or organizations you belong to? More than 4 times per year 06/07/2024 Are you , , di vorced, , never , or living with a partner? 06/07/2024 AUDIT-C Answer Date Recorded Q1: How often do you have a drink containing alc ohol? Monthly or less 06/07/2024 Q2: How many drinks containi ng alcohol do you have on a typical day when you are drinking? 1 or 2 06/07/2024 Q3: How often do you have si x or more drinks on one occasion? Never 06/07/2024 Overall Financial Resource Strain (CARDIA) Answe r Date Recorded How hard is it for you to pa y for the very basics like food, housing, medical care, and heating? Not hard at all 06/07/2024 PHQ-2 Answer Date Recorded Patient Health Questionnaire-2 Score 0 12/07/2024 [facility] - Occupational Stress Questionnaire Answer Date Recorded Do you feel stress - tense, restless, nervous, or anxious, or unable to sleep at night because your mind is troubled all the time - these days? Not at all 06/07/2024 Exercise Vital Sign Answer Date Recorde d On average, how many days pe r week do you engage in moderate to strenuous exercise (like a brisk walk)? 5 days 06/07/2024 On average, how many minutes do you engage in exercise at this level? 30 min 06/07/2024 Hunger Vital Sign Answer Date Recorded Within the past 12 months, y ou worried that your food would run out before you got the money to buy more. Never true 06/07/20 24 Within the past 12 months, t he food you bought just didn't last and you didn't have money to get more. Never true 06/07/2024 PRAPARE - Transportation Answer Date Re corded In the past 12 months, has l ack of transportation kept you from medical appointments or from getting medications? No 05/17 In the past 12 months, has l ack of transportation kept you from meetings, work, or from getting things needed for daily living? No 06/07/2024 Housing Stability Vital Sign Answer Raul e Recorded In the last 12 months, was t here a time when you were not able to pay the mortgage or rent on time? No 04/09/2023 In the last 12 months, how many places have you lived? 1 04/09/2023 In the last 12 months, was t here a time when you did not have a steady place to sleep or slept in a custodial (including now)? No 04/09/2023 Housing Stability Vital Sign Answer Raul e Recorded In the last 12 months, was t here a time when you were not able to pay the mortgage or rent on time? No 06/07/2024 In the past 12 months, how m any times have you moved where you were living? 0 06/07/2024 At any time in the past 12 m [facility], were you homeless or living in a custodial (including now)? No 06/07/2024 Estimated Date of Delivery Comme nts Yes 02/19/2025 Based on Ultraso und Sex and Gender Information Value Date Recorded Sex Assigned at Female 02/08/2023 8:14 AM EDT Legal Sex Female 8:06 PM EDT Gender Identity Female 02/08/2023 8:14 AM EDT Sexual Orientation Not on file documented as of this encounter Progress Notes * Estlele Hughes LPN - 12/25/2024 10:20 AM EDT Reason for Appointment: Patient ID: Kellie Reyes is a 29 y.o. female who presents for Consult (Patient is a [facility] referral to Dr. Sam for Type II diabetes insulin required.) Patient presents today for Return OB appointment. and Consult appointment. MEDICATIONS Current Outpatient Medications Medication Instructions acetaminophen (TYLENOL) 500 mg, Every 6 hours PRN acetone, urine, test (Ketostix) strip Check urine for ketones if blood sugar/glucose 200 or above daily as needed. Use as directed. aspirin 81 mg, Daily RT Continuous Glucose Sensor (Dexcom G7 Sensor) misc USE DIRECTED to test BLOOD SUGAR change EVERY TEN days insulin lispro (HumaLOG KWIKPEN) 100 UNIT/ML injection 1-2 units breakfast, 5-12 units lunch/dinner(max daily 50 units) insulin NPH, Isophane, (HumuLIN N KWIKPEN) 100 UNIT/ML injection 10 units am and 17 units pm insulin pen needle (B-D UF III MINI PEN NEEDLES) 31G x 5 mm misc USE DIRECTED FIVE TIMES DAILY metFORMIN (Glucophage) 1000 MG tablet 1/2 tablet in the am and 1 tablet in the evening ALLERGIES No Known Allergies PROBLEMS Active Ambulatory Problems Diagnosis Date Noted Abnormal glucose 12/29/2016 Insulin resistance 04/16/2023 Long Q-T syndrome 12/29/2016 Mixed hyperlipidemia (CMS/HCC) 04/16/2023 PCOS (polycystic ovarian syndrome) 04/16/2023 Plantar wart of right foot 04/16/2023 Pure hyperglyceridemia (CMS/HCC) 04/16/2023 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 mellitus without complication, without long-term current use of insulin 04/16/2023 with type 2 diabetes mellitus in third trimester 09/01/2024 Resolved Ambulatory Problems Diagnosis Date Noted No Resolved Ambulatory Problems Past Medical History: Diagnosis Date Hyperlipemia (CMS/HCC) Prolonged QT syndrome 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 mellitus HISTORY PAST MEDICAL HISTORY SOCIAL HISTORY Past Medical History: Diagnosis Date Hyperlipemia (CMS/HCC) Insulin resistance Prolonged QT syndrome 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 mellitus Social History Tobacco Use Smoking status: Never Smokeless tobacco: Never Substance Use Topics Alcohol use: Yes Comment: 3 or 4 drinks on typical day / monthly or less. Caffeine: 1-2 cups/day Drug use: Never FAMILY HISTORY Family History Problem Relation Name Age of Onset Diverticulitis Mother Diabetes type II Father No Known Problems Sister Polycystic ovary syndrome Sister Diabetes Sister Other (underactive thyroid) Sister No Known Problems Brother SURGICAL HISTORY Past Surgical History: Procedure Laterality Date OTHER SURGICAL HISTORY ear surgeries x 3 WISDOM TOOTH EXTRACTION wisdom teeth REVIEW OF SYSTEMS Review of Systems: Review of Systems Constitutional: Negative. HENT: Negative. Eyes: Negative. Respiratory: Negative. Cardiovascular: Negative. Gastrointestinal: Negative. Genitourinary: Negative. Musculoskeletal: Negative. Skin: Negative. Neurological: Negative. All other systems reviewed and are negative. Hematological: Negative. Endocrine: Negative. Allergic/Immunologic: Negative. OBJECTIVE Objective: Physical Exam Constitutional: Appearance: Normal appearance. She is well-developed. Cardiovascular: Rate and Rhythm: Normal rate and regular rhythm. Pulmonary: Effort: Pulmonary effort is normal. Breath sounds: Normal breath sounds. Abdominal: General: Bowel sounds are normal. There is no distension. Palpations: Abdomen is soft. Tenderness: There is no abdominal tenderness. There is no guarding or rebound. Musculoskeletal: General: No swelling. Normal range of motion. Right lower leg: No edema. Left lower leg: No edema. Neurological: Mental Status: She is alert and oriented to person, place, and time. Skin: General: Skin is warm and dry. Psychiatric: Mood and Affect: Mood normal. Behavior: Behavior normal. Vitals and nursing note reviewed. Exam conducted with a live hanger present. Vitals: Estimated body mass index is 34.44 kg/m?? as calculated from the following: Height as of 12/07/24: 5' 10 . Weight as of 11/15/24: 240 lb. BP: Patient's last menstrual period was 05/02/2024 (exact date). ASSESSMENT & PLAN ICD-10-CM 1. with type 2 diabetes mellitus in third trimester O24.113 Ambulatory referral to Obstetrics / Gynecology POCT urinalysis dipstick manually resulted Patient presents today for referral from Wanda Aly due to Type 2 Diabetes and . Patient issetup for NST/BPP Bi-Weekly/Weekly at Wanda Banuelos's office. Patient voiced that she was seen at [facility] for anatomy Scan. Advised patient that it is preferred to have NST/BPP at [facility] for co-management in . Patient is agreeable with having location changed. Order will be given to patient today to have setup at [facility]. Discussed delivery with patient and if sugars are controlled well with insulin then she will be able to delivery at 39 weeks gestation, but if sugars are not well controlled then delivery would be recommended at 38 weeks to prevent issues with placenta. Patient is currently taking Aspirin 81mg daily. FHT 145, patient to continue care with Wanda Banuelos and reach out tooffice with any concerns. Documented by Estelle Hughes LPN on behalf of: Henry Sam DO documented in this encounter Plan of Treatment Upcoming Encounters Date Type Department Care Team (Late st Contact Info) Description 01/09/2025 4:00 PM EDT Routine [facility] [address] [place] [phone] Flaquita Banuelos CNM [address] [place] [address] 01/15/2025 4:30 PM EDT Routine [facility] [address] [place] [phone] Flaquita Banuelos CNM [address] [place] [address] 01/18/2025 8:30 AM EDT Office Visit [facility] [address] [place] [address] Awilda Crenshaw, [address] [place] [address] 01/22/2025 4:30 PM EDT Routine [facility] [address] [facility] [place] [address] Flaquita Banuelos, CNM [address] [place] [address] 01/29/2025 4:30 PM EDT Routine [facility] [address] [facility] [place] [address] Flaquita Banuelos, CNM [address] [place] [address] 02/06/2025 4:30 PM EDT Routine [facility] [address] [facility] [place] [address] Flaquita Banuelos, CNM [address] [place] [address] 02/12/2025 4:30 PM EDT Routine [facility] [address] [facility] [place] [address] Flaquita Banuelos, CNM [address] [place] [address] Scheduled Orders Name Type Priority Associated Diagnoses Orde r Schedule US biophysical profile w non stress test Imaging Routine with type 2 diabetes mellitus in third trimester Expected: 12/25/2024 (Approximate), Expires: 06/27/2025 documented as of this encounter Procedures Procedure Name Priority Date/Time Associated Diagnosis Comments POCT URINALYSIS DIPSTICK Routine 12/25/2024 10:52 AM EDT with type 2 diabetes mellitus in third trimester PAP SMEAR Routine 02/10/2023 12:00 AM EDT documented in this encounter Results * POCT urinalysis dipstick manually resulted (12/25/2024 10:52 AM EDT) Color, UA Yellow Clarity, UA Clear Glucose, UA Negative Negative - 2000(110) ++++ mg/dL Bilirubin, UA Negative Negative - 4(70) +++ mg/dL Ketones, UA Negative Negative - 160(16) ++++ mg/dL Spec Grav, UA 1.020 1 - 1.03 Blood, UA Negative Negative - 50 Skinny/mcL pH, UA 6.5 5 - 9 Protein, UA Negative Negative - 2000(20) ++++ mg/dL Urobilinogen, UA 1.0 0.2 - 12 mg/dL Leukocytes, UA Positive Negative - 500+++ Cal/mcL Comment:small Nitrite, UA Negative Negative - Positive Urine 12/25/2024 10:5 2 AM EDT us Henry Flaco DO POINT OF CARE TEST ENTER/EDIT OR DERABLES Final Result * Pap Smear (02/10/2023 12:00 AM EDT) Swab Cervical swab / Unknown us Flaquita Banuelos CNM LAB CYTOLOGY ORDERABLES Ileana palmer Result EXTERNAL LAB documented in this encounter Visit Diagnoses Diagnosis with type 2 diabetes mellitus in third trimester documented in this encounter Care Teams Gas Plant Technician Relationship Specialty Start Date End Date Unallocated, Noms Provider, MD Bri SMITH [place], [place] [id number] PCP - General 04/16/23 Flaquita Banuelos CNM [address] [place] [address] Obstetrics and Gynecology 02/10/23 documented as of this encounter
--- OUTSIDE RECORDS SUMMARY | 2024-12-26 16:00 | XMS_ITS | Encounter Summary ---
Author Organization [facility] Address [address] [place] [address] Care Team Providers Care 3D Artist Name Role Phone Flaquita Banuelos CN Unavailable [phone] Unallocated, [facility] Provider Primary Care [facility] Encounter Details Date Type Department Care Team (Latest Contact Info) Description 12/26/2024 4:00 PM EDT Routine [facility] OB [address] [place] [address] Flaquita Banuelos, CNM [address] [place], [place] [phone] with type 2 diabetes mellitus in third trimester (Primary Dx); Screening for iron deficiency anemia; 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 mellitus treated with insulin ([facility]) Social History Tobacco Use Types Packs/Day Years [...] How often do you attend chur or nondenominational services? More than 4 times per year 06/07/2024 Do you belong to any clubs o r organizations such as jehovah's witness groups, unions, fraternal or athletic groups, or [...] Recorded Patient Health Questionnaire-2 Score 0 12/07/2024 [facility] [place] of Occupat ional Health - Occupational Stress [...] place to sleep or slept in a alf (including now)? No 04/09/2023 Housing Stability Vital Sign Answer Raul e Recorded In the last 12 months, was t here a time when you were not able to pay the mortgage or rent on time? No 06/07/2024 In the past 12 months, how m any times have you moved where you were living? 0 06/07/2024 At any time in the past 12 m [facility], were you homeless or living in a alf (including now)? No 06/07/2024 Estimated Date of [...] will do all nst's and bpp's at [facility] per Dr Sam Objective Physical Exam Weight: [...] PM EDT Routine [facility] OB [address] [place] [phone] Flaquita Banuelos CNM [address] [place], [place] [id number] 01/15/2025 4:30 PM EDT Routine [facility] [address] [place] [address] Flaquita Banuelos, CN [address] [facility] [place] [address] 01/18/2025 8:30 AM EDT Office Visit [facility] [address] [place] [address] Awilda Crenshaw, DO [address] [place] [address] 01/22/2025 4:30 PM EDT Routine [facility] [address] [place] [address] Flaquita Banuelos, CN [address] [facility] [place] [address] 01/29/2025 4:30 PM EDT Routine [facility] [address] [place] [address] Flaquita Banuelos, CN [address] [facility] [place] [address] 02/06/2025 4:30 PM EDT Routine [facility] [address] [place] [address] Flaquita Banuelos, CN [address] [facility] [place] [address] 02/12/2025 4:30 PM EDT Routine [facility] [address] [place] [address] Flaquita Banuelos, CNM [address] [facility] [place] [address] documented as of this encounter Procedures Procedure [...] Performing Organization Information Site ID: QPT Name: [employer] [facility] Address: [address] [place] [address], [address] [place] [phone] Director: Devendra Aguilar MD us Flaquita Banuelos CNM LAB BLOOD ORDERABLES Final R esult [facility] documented in this encounter Visit Diagnoses Diagnosis with type 2 diabetes mellitus in third trimester- Primary Screening for iron deficiency anemia 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 mellitus treated with insulin (CMS/HCC) documented in this encounter Care Teams 3D Artist Relationship Specialty Start Date End Date Unallocated, Noms Provider, [address] [place], [place] [address] [address] PCP - General 04/16/23 Flaquita Banuelos CNM [address] [place] [address] Obstetrics and Gynecology 02/10/23 documented as of this encounter
--- OUTSIDE RECORDS SUMMARY | 2025-01-01 16:30 | XMS_ITS | Encounter Summary ---
Author Organization [facility] Address [address] [place] [address] Care Team Providers Care Bowling Alley Floors Installer Name Role Phone Flaquita Banuelos CN Unavailable [phone] Unallocated, Noms Provider Primary Care Provi mart Encounter Details Date Type Department Care Team (Latest Contact Info) Description 01/01/2025 4:30 PM EDT Routine [facility] [address] [place] [address] Flaquita Banuelos, CNM [address] [place], [place] [phone] Screening for iron deficiency anemia (Primary Dx); [...] How often do you attend chur or restorationist services? More than 4 times per year 06/07/2024 Do you belong to any clubs o r organizations such as jain groups, unions, fraternal or athletic groups, or [...] Recorded Patient Health Questionnaire-2 Score 0 12/07/2024 [facility] [place] of Occupat ional Health - Occupational Stress [...] place to sleep or slept in a prison (including now)? No 04/09/2023 Housing Stability Vital Sign Answer Raul e Recorded In the last 12 months, was t here a time when you were not able to pay the mortgage or rent on time? No 06/07/2024 In the past 12 months, how m any times have you moved where you were living? 0 06/07/2024 At any time in the past 12 m [facility], were you homeless or living in a prison (including now)? No 06/07/2024 Estimated Date of [...] PM EDT Routine [facility] [address] [place] [place] [address] Flaquita Banuelos, [address] [place] [address] 01/15/2025 4:30 PM EDT Routine [facility] [address] [place] [address] Flaquita Banuelos, [place] [address] [place] [address] 01/18/2025 8:30 AM EDT Office Visit [facility] [address] [place] [address] [phone] Awilda Crenshaw, DO [address] [place] [address] 01/22/2025 4:30 PM EDT Routine [facility] [address] [place] [place] [address] Flaquita Banuelos, [facility] [address] [place] [address] 01/29/2025 4:30 PM EDT Routine [facility] [address] [place] [place] [address] Flaquita Banuelos, [facility] [address] [place] [address] 02/06/2025 4:30 PM EDT Routine [facility] OB [address] [place] [address] [phone] Flaquita Banuelos, SADIA [address] [place] [address] 02/12/2025 4:30 PM EDT Routine [facility] [address] [place] [place] [id number] Flaquita Banuelos CNM [address] [place] [address] documented as of this encounter Procedures Procedure Name Priority Date/Time Associated Diagnosis Comments CULTURE, URINE, ROUTINE Routine 01/01/2025 5:00 PM EDT Dysuria documented in this encounter Results * Urine culture (01/01/2025 5:00 PM EDT) MICRO NUMBER [id number] [facility] SPECIMEN QUALITY Adequate [facility]ST SOURCE: (QUEST) [...] Performing Organization Information Site ID: QPT Name: [facility] Address: [address] [place] [address], [address] [place] [phone] Director: Devendra Aguilar MD us Flaquita Banuelos CNM LAB MICROBIOLOGY - GENERAL O RDERABLES Final Result [facility] documented in this encounter Visit Diagnoses Diagnosis Screening for iron deficiency anemia- Primary Dysuria documented in this encounter Care Teams Bowling Alley Floors Installer Relationship Specialty Start Date End Date Unallocated, Noms MD Dian [address] [place] [address] PCP - General 04/16/23 Flaquita Banuelos CNM [address] [place] [address] Obstetrics and Gynecology 02/10/23 documented as of this encounter
--- OUTSIDE RECORDS SUMMARY | 2025-01-01 16:33 | XMS_ITS ---
Author Name Auto Generated Organization OHIP Support Name Relationship Address Phone KAROL SMALL Next of Kin Unknown [phone] TALITA SMALLINGTON Next of Kin Unknown [phone] KAROL SMALL Next of Kin Unknown [phone] KAROL SMALL Next of Kin Unknown [phone] KAROL SMALL Next of Kin Unknown [phone] KAROL SMALL Next of Kin Unknown [phone] KAROL SMALL Next of Kin Unknown [phone] KAROL SMALL Next of Kin Unknown Unavailable KAROL SMALL Next of Kin Unknown Unavailable TALITA SMALLINGTON Next of Kin Unknown [phone] KAROL SMALL Next of Kin Unknown Unavailable KAROL MSALL Next of Kin Unknown [phone] KAROL SMALL Next of Kin Unknown Unavailable KAROL SMALL Next of Kin Unknown [phone] REYNALDO MARTINEZ Next of Kin Unknown Unavailable REYNLADO MARTINEZ Next of Kin Unknown Unavailable NOT GIVEN Next of Kin [facility] [address] [phone] KAROL SMALL Next of Kin Unknown Unavailable REYNALDO MARTINEZ Next of Kin Unknown Unavailable REYNALDO MARTINEZ Next of Kin Unknown Unavailable NOT [place]IV[place] [address] [phone] KAROL SMALL Next of Kin Unknown Unavailable KAROL SMALL Next of Kin Unknown [phone] REYNALDO MARTINEZ Next of Kin Unknown Unavailable REYNALDO MARTINEZ Next of Kin Unknown Unavailable NOT GIVEN Next of Kin [facility] [address] [phone] KAROL SMALL Next of Kin Unknown Unavailable NOT GIVEN Next of Kin [facility] [place] [address] [phone] KAROL SMALL Next of Kin Unknown Unavailable NOT [place]IV[place] [address] [phone] KAROL SMALL Next of Kin Unknown Unavailable TAYLOR MARTINEZE Next of Kin Unknown Unavailable MARTINEZAUGUSTREYNALDO Next of Kin Unknown Unavailable [place] [address] [phone] KAROL SMALL Next of Kin Unknown Unavailable REYNALDO MARTINEZ Next of Kin Unknown Unavailable TAYLOR MARTINEZE Next of Kin Unknown Unavailable [place] [address] [phone] KAROL SMALL Next of Kin Unknown Unavailable KAROL SMALL Next of Kin Unknown [phone] KAROL SMALL Next of Kin Unknown [phone] KAROL SMALL Next of Kin Unknown [phone] KAROL SMALL Next of Kin Unknown [phone] KAROL SMALL Next of Kin Unknown [phone] Care Team Providers 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 Name Role Phone ALIRIO PACK Attending Unavailable FLORO, DARÍO Referring Unavailable SERGEY DENNY Attending Unavailable FLORO, DARÍO Referring Unavailable ALIRIO PACK Attending Unavailable FLORO, DARÍO Referring Unavailable FLORO, [...] Unavailable FLORO, DARÍO Primary Care Unavailable TRICIA KIMBROUGH Attending Unavailable AYE SAUCEDO Referring Unavailable FLORO, DARÍO Primary Care Unavailable FLORO, DARÍO L Attending Unavailable PETZNICK, THA M Attending Unavailable FLORO, DARÍO L Attending Unavailable FLORO, DARÍO L Attending Unavailable PETZNICK, THA M Attending Unavailable FLORO, DARÍO L Attending Unavailable PETZNICK, THA M Attending Unavailable PETZNICK, THA M Attending Unavailable FLORO, DARÍO L Referring Unavailable FLORO, DARÍO L Attending Unavailable FLORO, DARÍO L Referring Unavailable ANDRÉS, NICK Attending Unavailable FLORO, DARÍO L Referring Unavailable FLORO, DARÍO L Attending Unavailable FLORO, DARÍO L Attending Unavailable FLORO, DARÍO L Attending Unavailable PETZNICK, THA M Attending Unavailable PETZNICK, THA M Referring Unavailable PROBLEMS DATE TYPE CONDITION / CODE ATTENDING STATUS [facility] 10/31/2024 Unknown Encounter for ot her screening follow-up / Z36.2(ICD-10) NA [facility] 08/14/2024 Unknown Pre-existing typ e 2 diabetes mellitus, in , second trimester / O24.112(ICD-10) NA [facility] 09/19/2024 Unknown New Patient / FREETEXT(AOF) AYE SAUCEDO [facility] 07/25/2024 Unknown 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 mellitus without complications / E11.9(ICD-10) ARIELLA ROBERTO [facility] 08/14/2024 Unknown Pre-existing typ e 2 diabetes mellitus, in , first trimester / O24.111(ICD-10) SERGEY DENNY [facility] 12/29/2016 Unknown Long QT syndrome / I45.81(ICD-10) ALIRIO PACK E [facility] 08/14/2024 Unknown T2DM / UNK(Unknown) ALIRIO PACK E Ac tive [facility] PROCEDURES No Procedure Records Found RESULTS US OB FOLLOW UP TRANSABDOMINAL APPROACH Observed: 12/11/2024 4:08 PM Status: F Source: [facility] EPIC EXAM: US OB FOLLOW [...] II, MD, PHD at 12-Dec-2024 07:13:14 PM [facility] US OB < 14 WEEKS EARLY Observed: 024 5:55 PM Status: F Source: [facility] TITLE OF EXAM: OB Ultrasound : REASON [...] NAME / CODE REACTION SEVERITY SOURCE Drug Class/[id number](SNO MED CT) NO KNOWN ALLERGIES [facility] ENCOUNTERS ADMIT/DISCHARGE ACCOUNT NUMBER ADMITTING ENCOUNTER CLASS LOCATION SOURCE 01/01/2025/01/02/20 [id number] Ambulatory Building:NOM S FNR OB [facility] 12/26/2024/12/27/19 25 [id number] Ambulatory Building:NOM S FNR OB [facility] 12/25/2024/12/26/19 25 [id number] Ambulatory Building:NOM S BCP OB [facility] 12/11/2024/12/12/19 25 [id number] Ambulatory Building:NOM SFNRUS [facility] 12/11/2024/12/12/19 25 [id number] Ambulatory Building:NOM S FNR OB [facility] 12/07/2024/12/08/19 25 [id number] Ambulatory Building:NOM S [facility] 11/15/2024/11/16/19 25 [id number] Ambulatory Building:NOM S FNR OB [facility] 11/08/2024/11/09/19 25 [id number] Ambulatory Buildin 4 [facility] 10/31/2024/11/01/19 25 [id number] Ambulatory Building:[facility] 10/18/2024/10/19/19 25 [id number] Ambulatory Building:NOM S FNR OB [facility] 10/10/2024/10/10/19 25 [id number] Ambulatory Buildin 4 [facility] 10/09/2024/10/09/19 25 [id number] Ambulatory Building:NOM S [facility] 10/03/2024/10/03/19 25 [id number] Ambulatory Building:[facility] 09/28/2024/09/28/19 25 [id number] Ambulatory Building:NOM S FNR OB [facility] 09/19/2024/09/19/19 25 [id number] Ambulatory Buildin 4 [facility] 09/11/2024/09/11/19 25 [id number] Ambulatory Buildin 4 [facility] 09/01/2024/01 [id number] [facility] EPIC 08/23/2024/08/23/19 [id number] Ambulatory Buildin 4 [facility] 08/14/2024 [id number] Ambulatory Buildin 9 4 [facility] 08/14/2024 [id number] Ambulatory Buildin 9 4 [facility] 08/14/2024/08/14/20 24 [id number] Ambulatory Buildin 4 [facility] 08/14/2024/08/14/20 24 [id number] Ambulatory Buildin 4 [facility] 08/03/2024/08/03/20 24 [id number] Ambulatory Building:NOM S FNR OB [facility] EPIC 07/10/2024/07/10/20 24 [id number] Ambulatory Building:NOM S FNR OB [facility] EPIC 07/03/2024/07/03/20 24 [id number] Ambulatory Building:NOM SFNRUS [facility] EPIC 06/08/2024/06/08/20 24 [id number] Ambulatory Building:NOM S FAMMED [facility] EPIC 02/28/2024/02/28/20 24 [id number] Ambulatory Building:NOM S [facility] EPIC PAYERS ENCOUNTER GUARANTOR PAYER SUBSCRIBER SOURCE 01/01/2025 REGINALD JUSTICEB: [address] [address]Rwy: () Primary Insurance:BCBSPo licy Number: [id number] ctive Date:2019-02-13 REGINALD JUSTICEB: [id number] [address] [address] [facility] EPIC 12/26/2024 REGINALD DE LEÓN: [address] [address]Fkn: () Primary Insurance:BCBSPo licy Number: [id number] ctive Date:2019-02-13 REGINALD DE LEÓN: [id number] N STATE [address] [place] [address] [facility] EPIC 12/25/2024 REGINALD JUSTICEB: [place] [phone]: (HP) Primary Insurance:BCBSPo licy Number: [id number] ctive Date:2019-02-13 REGINALD JUSTICEB: [id number] [address], [facility] [facility] EPIC 12/11/2024 REGINALD JUSTICEB: [place] [phone]: (HP) Primary Insurance:BCBSPo licy Number: [id number] ctive Date:2019-02-13 REGINADL JUSTICEB: [id number] [address] [place] [id number] [facility] EPIC 12/11/2024 REGINALD JUSTICEB: [address] [address]Erg: (HP) Primary Insurance:BCBSPo licy Number: [id number] ctive Date:2019-02-13 REGINALD JUSTICEB: [id number] [address] [place] [phone] [facility] EPIC 12/07/2024 REGINALD JUSTICEB: N [address], [facility]Mwv: (HP) Primary Insurance:BCBSPo licy Number: [id number] ctive Date:2019-02-13 REGINALD JUSTICEB: [id number] [address] [address] [facility] EPIC 11/15/2024 REGINALD JUSTICEB: [address] [place] [phone]: (HP) Primary Insurance:BCBSPo licy Number: [id number] ctive Date:2019-02-13 REGINALD JUSTICEB: [id number] [address] [facility] 11/08/2024 REGINALD JUSTICEB: N [address] [address]Hvq: (HP) Primary Insurance:BCBS OUT OF STATE PPO/TRUSTPolicy Number: [id number] ctive Date:2019-02-13 REGINALD JUSTICEB: [id number] [address] [address]Jio: () [facility] 10/31/2024 REGINALD JUSTICEB: N [address] [address]Qqu: (HP) Primary Insurance:BCBS OUT OF STATE PPO/TRUSTPolicy Number: [id number] ctive Date:2019-02-13 REGINALD JUSTICEB: [id number] [address]Lph: (HP) [facility] 10/18/2024 REGINALD JUSTICEB: N [address] [address]Shs: (HP) Primary Insurance:BCBSPo licy Number: [id number] ctive Date:2019-02-13 REGINALD DE LEÓN: [id number] [address] [address] [facility] 10/10/2024 REGINALD JUSTICEB: N [address] [address]Atd: (HP) Primary Insurance:BCBS OUT OF STATE PPO/TRUSTPolicy Number: [id number] ctive Date:2019-02-13 REGINALD JUSTICEB: [id number] [address] [address]Oxr: (HP) [facility] 10/09/2024 REGINALD JUSTICEB: N [address] [address]Tat: (HP) Primary Insurance:BCBSPo licy Number: [id number] ctive Date:2019-02-13 REGINALD JUSTICEB: [id number] [address] [address] [facility] EPIC 10/03/2024 REGINALD JUSTICEB: N [address] [address]Box: () Primary Insurance:BCBS OUT OF STATE PPO/TRUSTPolicy Number: [id number] ctive Date:2019-02-13 REGINALD JUSTICEB: [id number] [address]Scw: (HP) [facility] 09/28/2024 REGINALD JUSTICEB: [address] [address]Pfu: (HP) Primary Insurance:BCBSPo licy Number: [id number] ctive Date:2019-02-13 REGINALD JUSTICEB: [id number] [address] [facility] EPIC 09/19/2024 REGINALD JUSTICEB: N [address] [address]Sgj: (HP) Primary Insurance:BCBS OUT OF STATE PPO/TRUSTPolicy Number: [id number] ctive Date:2019-02-13 REGINALD JUSTICEB: [id number] [address], [place] [address]Orm: (HP) [facility] 09/11/2024 REGINALD JUSTICEB: [address] [place] [address], [place] [address]Rzu: (HP) Primary Insurance:BCBS OUT OF STATE PPO/TRUSTPolicy Number: [id number] ctive Date:2019-02-13 REGINALD JUSTICEB: [id number] [address], [place] [address]Izf: (HP) [facility] 09/01/2024 REGINALD JUSTICEB: N STATE [address] [place] [address]Xyc: (HP) Primary Insurance:BCBSPo licy Number: [id number] ctive Date:2019-02-13 REGINALD JUSTICEB: [id number] N STATE [address] [place] [address] [facility] 08/23/2024 REGINALD JUSTICEB: [address], [place] [address]Ylv: (HP) Primary Insurance:BCBS OUT OF STATE PPO/TRUSTPolicy Number: [id number] ctive Date:2019-02-13 REGINALD JUSTICEB: [id number] [address] [place] [address], [place] [address]Eki: (HP) [facility] 08/14/2024 REGINALD JUSTICEB: [address], [place] [address]Qtv: (HP) Primary Insurance:BCBS OUT OF STATE PPO/TRUSTPolicy Number: [id number] ctive Date:2019-02-13 REGINALD JUSTICEB: [id number] [address] [place] [address], [place] [address]Uqi: (HP) [facility] 08/14/2024 REGINALD JUSTICEB: [address], [place] [address]Nkq: (HP) Primary Insurance:BCBS OUT OF STATE [facility] Number: [id number] ctive Date:2019-02-13 REGINALD JUSTICEB: [id number] [address], [place] [address]Jvu: (HP) [facility] 08/14/2024 REGINALD JUSTICEB: N [address], [place] [address]Tfe: (HP) Primary Insurance:BCBS OUT OF STATE [facility]/TRUSTPolicy Number: [id number] ctive Date:2019-02-13 REGINALD JUSTICEB: [id number] [address], [place] [address]Jur: (HP) [facility] 08/14/2024 REGINALD JUSTICEB: N [address], [place] [address]Fuk: (HP) Primary Insurance:BCBS OUT OF STATE [facility]/TRUSTPolicy Number: [id number] ctive Date:2019-02-13 REGINALD JUSTICEB: [id number] N [address], [place] [address]Uuo: (HP) [facility] 08/03/2024 REGINALD JUSTICEB: [address] [place] [address]Mzu: (HP) Primary Insurance:BCBS licy Number: [id number] ctive Date:2019-02-13 REGINALD JUSTICEB: [id number] [address] [place] [phone] [facility] EPIC 07/10/2024 REGINALD JUSTICEB: [address] [place] [phone]: (HP) Primary Insurance:BCBSPo licy Number: [id number] ctive Date:2019-02-13 REGINALD JUSTICEB: [id number] [address] [place] [phone] [facility] EPIC 07/03/2024 REGINALD JUSTICEB: [place] [address]Tel: (HP) Primary Insurance:BCBSPo licy Number: [id number] ctive Date:2019-02-13 REGINALD JUSTICEB: [id number] [address] [place] [id number] [facility] EPIC 06/08/2024 REGINALD JUSTICEB: [place] [id number]: (HP) Primary Insurance:BCBSPo licy Number: [id number] ctive Date:2019-02-13 REGINALD JUSTICEB: [id number] [address] [place] [phone] [facility] EPIC 02/28/2024 REGINALD JUSTICEB: [place] [id number]: (HP) Primary Insurance:BCBSPo licy Number: [id number] ctive Date:2019-02-13 REGINALD JUSTICEB: [id number] [address] [address] [facility] EPIC
--- NOTE | 2025-01-05 07:05 | US_ITS ---
[place] [id number] Patient Name: REGINALD SMALL MRN: [id number] date: 1995 Sex: F Assigned Patient Location: [facility] Current Patient Location: Accession/Order Number: [id number] Exam Date: 01/05/2025 15:26 Report Date: 01/05/2025 15:27 At the request of: NICK BOWEN DO Procedure: US OB BPP w non-stress Ultrasound biophysical profile ultrasound HISTORY: 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 There is adequate breathing movement, gross body movement, tone and amniotic fluid volume for total score of 8 out of 8. The amniotic fluid index is 13.6 cm within normal limits. The heart rate is 134 bpm. US/US OB BPP w non-stress IMPRESSION: Adequate ultrasound biophysical profile Impression dictated by: Pradip Love M.D. 01/05/2025 3:27 PM Dictation Location: [facility] Electronically authenticated by: [id number] Y Date: 01/05/2025 15:27
--- OUTSIDE RECORDS SUMMARY | 2025-01-05 07:05 | XMS_ITS | Encounter Summary ---
Author Organization [facility] Address [address] [place] [address] Care Team Providers Care Soup Mixer Name Role Phone Flaquita Banuelos CNM Unavailable Unallocated, Noms Provider Primary Care Provi mart Awilda Crenshaw DO Unavailable [phone] Encounter Details Date Type Department Care Team (Late st Contact Info) Description 11/10/2024 [facility] [address] [place] [address] Awilda Crenshaw, DO [address] [facility] [address] [place] [address] Social History Tobacco Use Types Packs/Day Years [...] any clubs o r organizations such as gnosticism groups, unions, fraternal or athletic groups, or [...] Date Recorded Patient Health Questionnaire-2 Score 0 10/09/2024 [facility] of Occupat ional Health - Occupational Stress [...] place to sleep or slept in a long-term (including now)? No 04/09/2023 Housing Stability Vital Sign Answer Raul e Recorded In the last 12 months, was t here a time when you were not able to pay the mortgage or rent on time? No 06/07/2024 In the past 12 months, how m any times have you moved where you were living? 0 06/07/2024 At any time in the past 12 m [facility], were you homeless or living in a long-term (including now)? No 06/07/2024 Estimated Date of Delivery Comme nts Yes 02/19/2025 Based on Ultraso und Sex and Gender Information Value Date Recorded Sex Assigned at Female 02/08/2023 8:14 AM EDT Legal Sex Female 8:06 PM EDT Gender Identity Female 02/08/2023 8:14 AM EDT Sexual Orientation Not on file documented as of this encounter Plan of Treatment Upcoming Encounters Date Type Department Care Team (Late st Contact Info) Description 01/09/2025 4:00 PM EDT Routine [facility] OB [address] [place] [address] Flaquita Banuelos, CNM [address] [place] [address] 01/15/2025 4:30 PM EDT Routine [facility] OB [address] [place] [address] Flaquita Banuelos, CNM [address] [place] [address] 01/18/2025 8:30 AM EDT Office Visit [facility] [address] [place] [address] Awilda Crenshaw, DO [address] [place] [address] 01/22/2025 4:30 PM EDT Routine [facility] OB [address] [place] [address] Flaquita Banuelos, CNM [address] [place] [address] 01/29/2025 4:30 PM EDT Routine [facility] OB [address] [place] [address] Flaquita Banuelos, CN [address] [place] [address] 02/06/2025 4:30 PM EDT Routine [facility] OB [address] [place] [address] Flaquita Banuelos, CNM [address] [place] [address] 02/12/2025 4:30 PM EDT Routine [facility] OB [address] [place] [address] Flaquita Banuelos CNM [address] [place] [address] documented as of this encounter Visit Diagnoses Not on filedocumented in this encounter Care Teams Soup Mixer Relationship Specialty Start Date End Date Unallocated, Noms Provider, [address] [place] [address] PCP - General 04/16/23 Awilda Crenshaw DO [address] [address] PCP - [place] [employer] 06/16/23 Flaquita Banuelos CNM [address] [place] [address] Obstetrics and Gynecology 02/10/23 documented as of this encounter
--- OUTSIDE RECORDS SUMMARY | 2025-01-05 07:05 | XMS_ITS | Encounter Summary ---
Author Organization [facility] Address [address] [place] [address] Care Team Providers Care Companion Name Role Phone Flaquita Banuelos Nadine CNM Unavailable [phone] Unallocated, Noms Provider Primary Care Provi mart Encounter Details Date Type Department Care Team (Late st Contact Info) Description 12/25/2024 Bamboo flowsheet [facility] OB [address] [place] [address] Henry Sam, DO [address] [facility] [address] Jorge Luis Keen, [facility] Social History Tobacco Use Types Packs/Day Years [...] How often do you attend chur or episcopal services? More than 4 times per year [...] Recorded Patient Health Questionnaire-2 Score 0 12/07/2024 [facility] of Occupat ional Health - Occupational Stress [...] place to sleep or slept in a group home (including now)? No 04/09/2023 Housing Stability Vital Sign Answer Raul e Recorded In the last 12 months, was t here a time when you were not able to pay the mortgage or rent on time? No 06/07/2024 In the past 12 months, how m any times have you moved where you were living? 0 06/07/2024 At any time in the past 12 m [facility], were you homeless or living in a group home (including now)? No 06/07/2024 Estimated Date of [...] 4:00 PM EDT Routine [facility] OB [address] [place] [address] Flaquita Banuelos, CNM [address] [place] [address] 01/15/2025 4:30 PM EDT Routine [facility] OB [address] [facility] [place] [place] [address] Flaquita Banuelos, CNM [address] [place] [address] 01/18/2025 8:30 AM EDT Office Visit [facility] [address] [place] [address] Awilda Crenshaw, DO [address] [place] [address] 01/22/2025 4:30 PM EDT Routine [facility] OB [address] [facility] [place] [place] [address] Flaquita Banuelos, CNM [address] [place] [address] 01/29/2025 4:30 PM EDT Routine [facility] OB [address] [facility] [place] [place] [address] Flaquita Banuelos, CNM [address] [place] [address] 02/06/2025 4:30 PM EDT Routine [facility] OB [address] [facility] [place] [place] [address] Flaquita Banuelos, CNM [address] [place] [place] [address] 02/12/2025 4:30 PM EDT Routine [facility] OB [address] [facility] [place] [place] [address] Flaquita Banuelos CNM [address] [place], [place] [address] documented as of this encounter Visit Diagnoses Not on filedocumented in this encounter Care Teams Companion Relationship Specialty Start Date End Date Unallocated, Noms Provider, [address] [place] [address] PCP - General 04/16/23 Flaquita Banuelos CNM [address] [place], [place] [address] Obstetrics and Gynecology 02/10/23 documented as of this encounter
--- OUTSIDE RECORDS SUMMARY | 2025-01-05 07:05 | XMS_ITS | Encounter Summary ---
Author Organization [facility] Address [address] [place] [address] Care Team Providers Care Typewriter Aligner Name Role Phone Flaquita Banuelos CNM Unavailable [phone] Unallocated, Noms Provider Primary Care Provi mart Awilda Crenshaw DO Unavailable [phone] Encounter Details Date Type Department Care Team (Late st Contact Info) Description 04/16/2023 Abstract [facility] [address] [facility] 230 [place] [address] Awilda Crenshaw, [address] [facility] [address] [place] [address] Social History Tobacco Use Types Packs/Day Years Used Date Smoking Tobacco: Never Smokeless Tobacco: Never Alcohol Use Standard Drinks/Week Comments Yes 0 (1 standard drink = 0.6 oz pure alcohol) 3 or 4 drinks on typical day / monthly or less. Caffeine: 1-2 cups/day Humiliation, Afraid, Rape, and Kick questionnair e [...] neighbors? More than three times a week 04/09/2023 How often do you get togethe r with friends or relatives? More than three times a week 04/09/2023 How often do you attend chur or temple services? More than 4 times per year 04/09/2023 Do you belong to any clubs o r organizations such as confucianist groups, unions, fraternal or athletic groups, or school groups? Yes 04/09/2023 How often do you attend meet ings of the clubs or organizations you belong to? More than 4 times per year 04/09/2023 Are you , , di vorced, , never , or living with a partner? 04/09/2023 AUDIT-C Answer Date Recorded Q1: How often do you have a drink containing alc ohol? Monthly or less 04/09/2023 Q2: How many drinks containi ng alcohol do you have on a typical day when you are drinking? 1 or 2 04/09/2023 Q3: How often do you have si x or more drinks on one occasion? Less than monthly 04/09/2023 Overall Financial Resource Strain (CARDIA) Answe r Date Recorded How hard is it for you to pa y for the very basics like food, housing, medical care, and heating? Not hard at all 04/09/2023 PHQ-2 Answer Date Recorded Patient Health Questionnaire-2 Score 0 04/16/2023 [facility] of Occupat ional Health - Occupational Stress Questionnaire Answer Date Recorded Do you feel stress - tense, restless, nervous, or anxious, or unable to sleep at night because your mind is troubled all the time - these days? Not at all 04/09/2023 Exercise Vital Sign Answer Date Recorde d On average, how many days pe r week do you engage in moderate to strenuous exercise (like a brisk walk)? 3 days 04/09/2023 On average, how many minutes do you engage in exercise at this level? 80 min 04/09/2023 Hunger Vital Sign Answer Date Recorded Within the past 12 months, y ou worried that your food would run out before you got the money to buy more. Never true 04/09/20 23 Within the past 12 months, t he food you bought just didn't last and you didn't have money to get more. Never true 04/09/2023 PRAPARE - Transportation Answer Date Re corded In the past 12 months, has l ack of transportation kept you from medical appointments or from getting medications? No 03/17 In the past 12 months, has l ack of transportation kept you from meetings, work, or from getting things needed for daily living? No 04/09/2023 Housing Stability Vital Sign Answer [...] place to sleep or slept in a nursing home (including now)? No 04/09/2023 Comments No Sex and Gender Information Value Date Recorded Sex Assigned at Female 02/08/2023 8:14 AM EDT Legal Sex Female 8:06 PM EDT Gender Identity Female 02/08/2023 8:14 AM EDT Sexual Orientation Not on file COVID-19 Exposure Response Date Recorded In the last 10 days, have yo u been in contact with someone who was confirmed or suspected to have Coronavirus/COVID-19? No / Unsure 04/09/2023 8:40 AM EDT documented as of this encounter Functional Status * Over the past 2 weeks, how often have you been bothered by any of the following problems? Question Answer Date of Assessment Author Little interest or pleasure in doing things Not at all 04/16/2023 8:15 AM EDT Sravanthi Garcia LPN Feeling down, depressed, or hopeless Not at all 04/16/2023 8:15 AM EDT Sravanthi Garcia LPN Patient Health Questionnaire-2 Score 0 04/16/2023 8:15 AM EDT Macy Garcia LPN documented as of this encounter Plan of Treatment Upcoming Encounters Date Type Department Care Team (Late st Contact Info) Description 01/09/2025 4:00 PM EDT Routine [facility] OB [address] [facility] [place] [address] Flaquita Banuelos, CNM [address] [facility] [place] [address] 01/15/2025 4:30 PM EDT Routine [facility] OB [address] [facility] [place] [address] Flaquita Banuelos, CNM [address] [facility] [place] [address] 01/18/2025 8:30 AM EDT Office Visit [facility] [address] [place] [address] Awilda Crenshaw, DO [address] [place] [address] 01/22/2025 4:30 PM EDT Routine [facility] OB [address] [facility] [place] [address] Flaquita Banuelos, CN [address] [facility] [place] [address] 01/29/2025 4:30 PM EDT Routine [facility] OB [address] [facility] [place] [address] Flaquita Banuelos, CN [address] [facility] [place] [address] 02/06/2025 4:30 PM EDT Routine [facility] OB [address] [facility] [place] [address] Flaquita Banuleos, CN [address] [facility] [place] [address] 02/12/2025 4:30 PM EDT Routine [facility] OB [address] [place] [address] Flaquita Banuelos CNM [address] [place] [address] documented as of this encounter Visit Diagnoses Not on filedocumented in this encounter Care Teams Typewriter Aligner Relationship Specialty Start Date End Date Unallocated, Noms Provider, [address] [place] [address] PCP - General 04/16/23 Awilda Crenshaw DO [address] [facility] [address] [place] [address] PCP - [place] [employer] 06/16/23 Flaquita Banuelos CNM [address] [place] [address] Obstetrics and Gynecology 02/10/23 documented as of this encounter
--- OUTSIDE RECORDS SUMMARY | 2025-01-05 07:05 | XMS_ITS | Encounter Summary ---
Author Organization [facility] Address [address] [place] [address] Care Team Providers Care Accounting Clerk Name Role Phone Vin Flaquita Mccoy CNM Unavailable [phone] Unallocated, Noms Provider Primary Care Provi mart Encounter Details Date Type Department Care Team (Late st Contact Info) Description 12/29/2024 Clinisync Result Encounter [facility] External Department Unsolicited Nick Sam, DO [address] [facility] [place] [address] Social History Tobacco Use Types Packs/Day Years [...] How often do you attend chur or methodist services? More than 4 times per year 06/07/2024 Do you belong to any clubs o r organizations such as sikh groups, unions, fraternal or athletic groups, or [...] Recorded Patient Health Questionnaire-2 Score 0 12/07/2024 [facility] of Occupat ional Health - Occupational [...] place to sleep or slept in a mcc (including now)? No 04/09/2023 Housing Stability Vital Sign Answer Raul e Recorded In the last 12 months, was t here a time when you were not able to pay the mortgage or rent on time? No 06/07/2024 In the past 12 months, how m any times have you moved where you were living? 0 06/07/2024 At any time in the past [address] [facility], were you homeless or living in a mcc (including now)? No 06/07/2024 Estimated Date of [...] 4:00 PM EDT Routine [facility] FNR OB [address] [place] [address] Flaquita Banuelos, CNM [address] [place] [address] 01/15/2025 4:30 PM EDT Routine [facility] OB [address] [place] [address] Flaquita Banuelos, CNM [address] [place] [address] 01/18/2025 8:30 AM EDT Office Visit [facility] [address] [place] [address] Awilda Crenshaw, DO [address] [place] [address] 01/22/2025 4:30 PM EDT Routine [facility]NR OB [address] [place] [address] Flaquita Banuelos, CNM [address] [place] [address] 01/29/2025 4:30 PM EDT Routine [facility] OB [address] [place] [address] Flaquita Banuelos, CNM [address] [place] [address] 02/06/2025 4:30 PM EDT Routine [facility] OB [address] [place] [address] Flaquita Banuelos, CNM [address] [place] [address] 02/12/2025 4:30 PM EDT Routine [facility]NR OB [address] [place] [address] Flaquita Banuelos, CNM [address] [place] [address] documented as of this encounter Procedures Procedure Name Priority Date/Time Associated Diagnosis Comments US OB BPP W NON-STRESS 12/29/2024 9:36 AM EDT documented in this encounter Results * US OB BPP W NON-STRESS (12/29/2024 9:36 AM EDT) Anatomical Region Laterality Modality Other 12/29/2024 9:36 AM EDT Narrative 12/29/2024 9:38 AM EDT [address] [address] Ultrasound Report Signed Patient: REGINALD REYES MR#: [id number] : 1995 Acct:[id number] Age/Sex: 29 / F ADM Date: 12/29/24 Loc: US Attending Dr: Nick Sam D.O. Ordering Physician: Nick Sam D.O. Date of Service: 12/29/24 Procedure(s): US OB BPP w non-stress Accession Number(s): [id number] cc: Nick Sam D.O.; Physician,Non-Staff Magaly [address] [address] Patient Name: REGINALD REYES MRN: [id number] date: 1995 Sex: F Assigned Patient Location: [facility] Current Patient Location: Accession/Order Number: [id number] Exam Date: 12/29/2024 09:34 Report Date: 12/29/2024 09:36 At the request of: NICK SAM DO Procedure: US OB BPP w [...] Roberson M.D. 12/29/2024 9:36 AM Dictation Location: [place] [address] Electronically authenticated by: [id number] Y Date: 12/29/2024 09:36 Dictated By: Zak Roberson M.D. Signed By: 12/29/24937 DD/ 5 TD/TT: Clerical Receptionist: Procedure Note Radiology, Radiologist, MD - 12/29/2024 [place] [address] Ultrasound Report Signed Patient: REGINALD REYES MMR#: [id number] : 1995Acct:[id number] Age/Sex: 29 / FADM Date: 12/29/24 Loc: US Attending Dr: Nick Sam D.O. Ordering Physician: Nick Sam D.O. Date of Service: 12/29/24 Procedure(s): US OB BPP w non-stress Accession Number(s): [id number] cc: Nick Sam D.O.; Physician,Non-Staff Magaly The [address] [address] Patient Name: REGINALD REYES MRN: [facility]:[id number] date: 1995 Sex: F Assigned Patient Location: [facility] Current Patient Location: Accession/Order Number: [id number] Exam Date: 12/29/2024 09:34 Report Date: 12/29/2024 09:36 At the request of: NICK SAM DO Procedure: US OB BPP w [...] BPP w non-stress IMPRESSION: Biophysical profile score: 03/23 Amniotic fluid index: 16.35 cm Impression dictated by: Zak Roberson M.D. 12/29/2024 9:36 AM Dictation Location: [employer] Electronically authenticated by: [id number] Y Date: 9:36 Dictated By: Zak Roberson M.D. Signed By:12/29/2438 DD/ 5 TD/TT: Clerical Receptionist: us Nick Flaco DO [facility] Final Result documented in this encounter Visit Diagnoses Not on filedocumented in this encounter Care Teams Accounting Clerk Relationship Specialty Start Date End Date Unallocated, Noms Provider, [address] [place] [address] PCP - General 04/16/23 Flaquita Banuelos CNM [address] [place] [address] Obstetrics and Gynecology 02/10/23 documented as of this encounter
--- OUTSIDE RECORDS SUMMARY | 2025-01-05 07:05 | XMS_ITS | Encounter Summary ---
Author Organization [facility] Address [address] [place] [address] Care Team Providers Care Operations Officer Trust Department Name Role Phone Flaquita Banuelos CNM Unavailable [phone] Unallocated, Noms Provider Primary Care Provi mart Encounter Details Date Type Department Care Team (Late st Contact Info) Description 12/26/2024 Bamboo flowsheet [facility] OB [address] [place] [address] Flaquita Banuelos, CNM [address] [place], [place] [id number] Social History Tobacco Use Types Packs/Day Years [...] How often do you attend chur or muslim services? More than 4 times per year 06/07/2024 Do you belong to any clubs o r organizations such as denominational groups, unions, fraternal or athletic groups, or [...] Recorded Patient Health Questionnaire-2 Score 0 12/07/2024 [facility] of Occupat ional Health - Occupational [...] place to sleep or slept in a half-way (including now)? No 04/09/2023 Housing Stability Vital [...] time in the past 12 m [facility], were you homeless or living in a half-way (including now)? No 06/07/2024 Estimated Date of [...] 4:00 PM EDT Routine [facility] FNR OB [address] [place] [address] Flaquita Banuelos, CNM [address] [place] [address] 01/15/2025 4:30 PM EDT Routine [facility] OB [address] [facility] [place] [address] Flaquita Banuelos, CNM [address] [place] [address] 01/18/2025 8:30 AM EDT Office Visit [facility] FM [address] [place] [address] Awilda Crenshaw, DO [address] [place] [address] 01/22/2025 4:30 PM EDT Routine [facility] OB [address] [facility] [place] [address] Flaquita Banuelos, CNM [address] [place] [address] 01/29/2025 4:30 PM EDT Routine [facility] OB [address] [facility] [place] [address] Flaquita Banuelos, CN [address] [place] [address] 02/06/2025 4:30 PM EDT Routine [facility] OB [address] [facility] [place] [address] Flaquita Banuelos, CNM [address] [place] [address] 02/12/2025 4:30 PM EDT Routine [facility] OB [address] [facility] [place] [address] Flaquita Banuelos CNM [address] [place], [place] [address] documented as of this encounter Visit Diagnoses Not on filedocumented in this encounter Care Teams Operations Officer Trust Department Relationship Specialty Start Date End Date Unallocated, Noms Provider, [address] [place] [address] PCP - General 04/16/23 Flaquita Banuelos CNM [address] [place] [address] Obstetrics and Gynecology 02/10/23 documented as of this encounter
--- OUTSIDE RECORDS SUMMARY | 2025-01-05 07:05 | XMS_ITS | Encounter Summary ---
Author Organization [facility] Address [address] [place] [address] Care Team Providers Care Carpenter Helper Hardwood Flooring Name Role Phone Vin Flaquita Mccyo CNM Unavailable [phone] Unallocated, Noms Provider Primary Care Provi mart Encounter Details Date Type Department Care Team (Late st Contact Info) Description 12/27/2024 Results Follow-Up [facility] [address] [place] [address] Abby Saul MA Social History Tobacco Use Types Packs/Day Years [...] How often do you attend chur or spiritism services? More than 4 times per year 06/07/2024 Do you belong to any clubs o r organizations such as samaritan groups, unions, fraternal or athletic groups, or [...] Recorded Patient Health Questionnaire-2 Score 0 12/07/2024 [facility] of Occupat ional Health - Occupational Stress [...] place to sleep or slept in a skilled nursing (including now)? No 04/09/2023 Housing Stability Vital Sign Answer Raul e Recorded In the last 12 months, was t here a time when you were not able to pay the mortgage or rent on time? No 06/07/2024 In the past 12 months, how m any times have you moved where you were living? 0 06/07/2024 At any time in the past 12 m [facility], were you homeless or living in a skilled nursing (including now)? No 06/07/2024 Estimated Date of [...] PM EDT Routine [facility] [address] [place] [address] Flaquita Banuelos, CNM [address] [place] [address] 01/15/2025 4:30 PM EDT Routine [facility] [address] [facility] [place] [address] Flaquita Banuelos, CNM [address] [place] [address] 01/18/2025 8:30 AM EDT Office Visit [facility] [address] [place] [address] Den Awilda Brooks, DO [address] [place] [address] 01/22/2025 4:30 PM EDT Routine [facility] [address] [facility] [address] Flaquita Banuelos, CNM [address] [place] [address] 01/29/2025 4:30 PM EDT Routine [facility] [address] [facility] [place] [address] Flaquita Banuelos, CNM [address] [place] [address] 02/06/2025 4:30 PM EDT Routine [facility] [address] [facility] [address] Flaquita Banuelos, CNM [address] [place] [address] 02/12/2025 4:30 PM EDT Routine [facility] [address] [facility] [place] [address] Flaquita Banuelos, CNM [address] [place] [address] documented as of this encounter Visit Diagnoses Not on filedocumented in this encounter Care Teams Carpenter Helper Hardwood Flooring Relationship Specialty Start Date End Date Unallocated, Noms Provider, [place] [address] PCP - General 04/16/23 Flaquita Banuelos CNM [address] [place] [address] Obstetrics and Gynecology 02/10/23 documented as of this encounter
--- OUTSIDE RECORDS SUMMARY | 2025-01-05 07:05 | XMS_ITS | Encounter Summary ---
Author Organization [facility] Address [address] [place] [address] Care Team Providers Care Haul Driver Name Role Phone Flaquita Banuelos CNM Unavailable [phone] Unallocated, Noms Provider Primary Care Provi mart Awilda Crenshaw DO Unavailable [phone] Encounter Details Date Type Department Care Team (Late st Contact Info) Description 11/03/[address] [facility] [address] [place] [address] Awilda Crenshaw, DO [address] [facility] [address] [place] [address] Social History Tobacco Use Types Packs/Day Years [...] How often do you attend chur or rastafarian services? More than 4 times per year 06/07/2024 Do you belong to any clubs o r organizations such as congregational groups, unions, fraternal or athletic groups, or [...] Recorded Patient Health Questionnaire-2 Score 0 10/09/2024 [facility] of Occupat ional Health - Occupational Stress [...] place to sleep or slept in a chcf (including now)? No 04/09/2023 Housing Stability Vital [...] time in the past [facility], were you homeless or living in a chcf (including now)? No 06/07/2024 Estimated Date of [...] OB [address] [place] [address] Flaquita Banuelos, CNM [address] [place] [address] 01/15/2025 4:30 PM EDT Routine [facility] [address] [place] [address] Flaquita Banuelos, CNM [address] [place] [address] 01/18/2025 8:30 AM EDT Office Visit [facility] [address] [place] [address] Awilda Crenshaw, DO [address] [place] [address] 01/22/2025 4:30 PM EDT Routine [facility] [address] [place] [address] Flaquita Banuelos, CNM [address] [place] [address] 01/29/2025 4:30 PM EDT Routine [facility] [address] [place] [address] Flaquita Banuelos, CN [address] [place] [address] 02/06/2025 4:30 PM EDT Routine [facility] [address] [place] [address] Flaquita Banuelos, CNM [address] [place] [address] 02/12/2025 4:30 PM EDT Routine [facility] [address] [place] [address] Flaquita Banuelos CNM [address] [place] [address] documented as of this encounter Visit Diagnoses Not on filedocumented in this encounter Care Teams Haul Driver Relationship Specialty Start Date End Date Unallocated, Noms Provider, [address] [place] [address] PCP - General 04/16/23 Awilda Crenshaw DO [address] [address] PCP - [place] [employer] 06/16/23 Flaquita Banuelos CNM [address] [place] [address] Obstetrics and Gynecology 02/10/23 documented as of this encounter
--- OUTSIDE RECORDS SUMMARY | 2025-01-05 07:05 | XMS_ITS | Encounter Summary ---
Author Organization [facility] Address [address] [place] [address] Care Team Providers Care Seasonal Sales Associate Name Role Phone Flaquita Banuelos CNM Unavailable [phone] Unallocated, Noms Provider Primary Care Provi mart Encounter Details Date Type Department Care Team (Late st Contact Info) Description 12/20/2024 Results Follow-Up [facility] [address] [place] [address] Flaquita Banuelos, CNM [address] [place], [place] [id number] Social History Tobacco Use Types Packs/Day Years [...] 06/07/2024 How often do you attend chur ch or mu-ism services? More than 4 times per year 06/07/2024 Do you belong to any clubs o r organizations such as bahai groups, unions, fraternal or athletic groups, or [...] Recorded Patient Health Questionnaire-2 Score 0 12/07/2024 [facility] of Occupat ional Health - [...] place to sleep or slept in a mcfp (including now)? No 04/09/2023 Housing Stability Vital [...] were you homeless or living in a mcfp (including now)? No 06/07/2024 Estimated Date of [...] PM EDT Routine [facility] [address] [place] [address] Flaquita Banuelos, CNM [address] [facility] [place] [address] 01/15/2025 4:30 PM EDT Routine [facility] [address] [facility] [place] [address] Flaquita Banuelos, CNM [address] [facility] [place] [address] 01/18/2025 8:30 AM EDT Office Visit [facility] [address] [place] [address] Awilda Crenshaw, DO [address] [place] [address] 01/22/2025 4:30 PM EDT Routine [facility] [address] [facility] [place] [address] Flaquita Banuelos, CNM [address] [facility] [place] [address] 01/29/2025 4:30 PM EDT Routine [facility] [address] [facility] [place] [address] Flaquita Banuelos, CNM [address] [facility] [place] [address] 02/06/2025 4:30 PM EDT Routine [facility] [address] [facility] [place] [address] Flaquita Banuelos, CNM [address] [facility] [place] [address] 02/12/2025 4:30 PM EDT Routine [facility] [address] [facility] [place] [address] Flaquita Banuelos CNM [address] [place], [place] [id number] documented as of this encounter Visit Diagnoses Not on filedocumented in this encounter Care Teams Seasonal Sales Associate Relationship Specialty Start Date End Date Unallocated, Noms Provider, [address] [place] [address] PCP - General 04/16/23 Flaquita Banuelos CNM [address] [place] [address] Obstetrics and Gynecology 02/10/23 documented as of this encounter
--- OUTSIDE RECORDS SUMMARY | 2025-01-05 07:05 | XMS_ITS | Encounter Summary ---
Author Organization [facility] Address [id number] [address] [place] [address] Care Team Providers Care Public Policy Analyst Name Role Phone Flaquita Banuelos BAMBI-CNM Primary Care Provider [phone] Encounter Details Date Type Department Care Team (Late st Contact Info) Description 09/11/2024 Orders Only Maternal- Medicine at [facility] [address] [place] [address] Yudelka Randall, SABRINA with type 2 diabetes mellitus in second trimester Social History Tobacco Use Types Packs/Day Years Used Date Smoking Tobacco: Never Smokeless Tobacco: Never Alcohol Use Standard Drinks/Week Comments Not Currently 0 (1 standard drink = 0.6 oz pur e alcohol) Childcare Answer Date Recorded Childcare Unknown 01/24/2019 Employment Answer Date Recorded Employment Unknown 01/24/2019 Hunger Screening Answer Date Recorded Within the past 12 months we worried whether our food would run out before we got money to buy more. Never True 08/14/2024 Within the past 12 months th e food we bought just didn't last and we didn't have money to get more. Never True 08/14/2024 Estimated Date of Delivery Comme nts Yes 02/19/2025 Based on Ultraso und Sex and Gender Information Value Date Recorded Sex Assigned at Not on file Legal Sex Female 7:23 PM EDT Gender Identity Not on file Sexual Orientation Not on file documented as of this encounter Plan of Treatment Not on file documented as of this encounter Procedures Procedure Name Priority Date/Time Associated Diagnosis Comments PROTEIN CREAT RATIO Routine 08/30/2024 with type 2 diabetes mellitus in second trimester THYROID PROFILE INCLUDES TSH FT4 Routine 08/30/2024 with type 2 diabetes mellitus in second trimester COMPREHENSIVE METABOLIC PANEL Routine 08/30/2024 with type 2 diabetes mellitus in second trimester documented in this encounter Results * Comprehensive metabolic panel (08/30/2024) 08/30/2024 us Svetlana E Lavoy PA-C LAB BLOOD ORDERABLES Final Result Performing Organization Address [facility] Co de Phone Number MANUALLY TRANSCRIBED RESULTS * Protein creat ratio (08/30/2024) 08/30/2024 us Svetlana E Lavoy PA-C URINE ORDERABLES Final Resu lt Performing Organization Address [facility] Co de Phone Number SUNQUEST * Thyroid profile includes TSH FT4 (08/30/2024) 08/30/2024 us Svetlana E Lavoy PA-C LAB BLOOD ORDERABLES Final Result Performing Organization Address [facility] Phone Number MANUALLY TRANSCRIBED RESULTS documented in this encounter Visit Diagnoses Diagnosis with type 2 diabetes mellitus in second trimester documented in this encounter Additional Health Concerns Assessment Noted Time PHQ-9 Depression Total Score: 0 03/03/20 17 3:00 PM EDT documented as of this encounter Care Teams Public Policy Analyst Relationship Specialty Start Date End Date Flaquita Banuelos APRN-CNM [address] [place] [address] PCP - General Nurse Computer Scientist 04/15/18 documented as of this encounter
--- OUTSIDE RECORDS SUMMARY | 2025-01-05 07:05 | XMS_ITS | Encounter Summary ---
Author Organization [facility] Address [address] [place] [place] [address] Care Team Providers Care Pleater Hand Name Role Phone Flaquita Banuelos CNM Unavailable [phone] Unallocated, Noms Provider Primary Care Provi mart Encounter Details Date Type Department Care Team (Late st Contact Info) Description 11/30/2024 Abstract [facility] [address] [place] [address] Awilda Crenshaw, DO [address] [place] [address] Social History Tobacco Use Types Packs/Day Years [...] How often do you attend chur or hoahaoism services? More than 4 times per year 06/07/2024 Do you belong to any clubs o r organizations such as mormonism groups, unions, fraternal or athletic groups, or [...] Recorded Patient Health Questionnaire-2 Score 0 10/09/2024 [facility] of Occupat ional Health - [...] No 06/07/2024 Housing Stability Vital Sign Answer Arul e Recorded In the last 12 months, [...] to sleep or slept in a senior care (including now)? No 04/09/2023 Housing Stability Vital Sign Answer Raul e Recorded In the last 12 months, was t here a time when you were not able to pay the mortgage or rent on time? No 06/07/2024 In the past 12 months, how m any times have you moved where you were living? 0 06/07/2024 At any time in the past 12 m [facility], were you homeless or living in a senior care (including now)? No 06/07/2024 Estimated Date of [...] PM EDT Routine [facility] OB [address] [place] [address] Flaquita Banuelos, CNM [address] [place] [address] 01/15/2025 4:30 PM EDT Routine [facility] OB [address] [facility] [place] [address] Flaquita Banuelos, CNM [address] [place] [address] 01/18/2025 8:30 AM EDT Office Visit [facility] [address] [place] [address] Awilda Crenshaw, DO [address] [place] [address] 01/22/2025 4:30 PM EDT Routine [facility] OB [address] [facility] [place] [address] Flaquita Banuelos, CNM [address] [place] [address] 01/29/2025 4:30 PM EDT Routine [facility] OB [address] [facility] [place] [address] Flaquita Banuelos, CNM [address] [place] [address] 02/06/2025 4:30 PM EDT Routine [facility] OB [address] [facility] [place] [address] Flaquita Banuelos, CNM [address] [place] [address] 02/12/2025 4:30 PM EDT Routine [facility] OB [address] [facility] [place] [address] Flaquita Banuelos, CNM [address] [place], [place] [address] documented as of this encounter Visit Diagnoses Not on filedocumented in this encounter Care Teams Pleater Hand Relationship Specialty Start Date End Date Unallocated, Noms Provider, [address] [place] [address] PCP - General 04/16/23 Flaquita Banuelos CNM [address] [place], [place] [id number] Obstetrics and Gynecology 02/10/23 documented as of this encounter
--- OUTSIDE RECORDS SUMMARY | 2025-01-05 07:05 | XMS_ITS | Clinical Summary ---
Author Organization [employer] [facility] Address [id number] [address] [place] [address] Care Team Providers Care Rolling Machine Tender Name Role Phone SheebaWanda sanchezDaríolibby LACY-CNM Primary Care Provider [phone] Allergies No known active allergies Medications metFORMIN (GLUCOPHAGE) 1000 mg tablet Take 0.5 tablets (500 mg total) by mouth daily with breakfast. 500 mg (1/2 tablet) with breakfast and 1000 mg with supper Active docosahexaenoic acid (DHA ORAL) Take 1 tablet by mouth once daily. Active MAGNESIUM CARBONATE ORAL Take 1 tablet by mouth once daily. Active acetaminophen (acetaminophen Pain Relief) 500 mg tablet Take 1 tablet (500 mg total) by mouth every 6 (six) hours as needed for pain. Active blood-glucose sensor (DEXCOM G7 SENSOR) device Use to monitor blood glucose 5 each 4 Active aspirin 81 mg Take 1 tablet (81 mg total) by mouth in the morning. 4 Active acetone, urine, test stripIndication s: with type 2 diabetes mellitus in second trimester Check urine for ketones if blood sugar/glucose 200 or above daily as needed. Use as directed. 50 strip 3 4 Active insulin NPH isoph U-100 human (HumuLIN N KWIKPEN) 100 unit/mL (3 mL) insulin pen Inject 15 Units in the morning and 34 Units in the evening 15 mL 6 5 Active Additional Information Patient taking differently: Inject 10 Units in the morning and 17 Units in the evening, Reported on 11/08/2024 insulin lispro (HumaLOG) 100 unit/mL injection Inject under the skin 3 (three) times a day before meals. As directed Active Active Problems Problem Noted Date Diagnosed Date Hx of prolonged Q-T interval on ECG 11/09/2024 Pre-existing type 2 diabetes mellitus during in second trimester 08/14/2024 with type 2 diabetes mellitus in secon d trimester 08/14/2024 Insulin resistance 07/25/2024 Mixed hyperlipidemia 07/25/2024 PCOS (polycystic ovarian syndrome) 07/25/2024 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 mellitus without complication Abnormal glucose 12/29/2016 Estimated Date of Delivery Comme nts Yes 02/19/2025 Based on Ultraso und Resolved Problems Problem Noted Date Diagnosed Date Resolved Date Long Q-T syndrome 07/25/2024 11/09/2024 Long Q-T syndrome 12/29/2016 11/09/2024 Encounters Date Type Department Care Team Description 11/08/2024 9:30 AM EDT Office Visit [facility] [address] [place] [address] Robby Queazda MD Goyal, Vishal, MD Long Q-T syndrome (Primary Dx); Hx of prolonged Q-T interval on ECG 11/07/2024 Telephone [facility] [address] [place] [address] Abby Andino CMA 11/07/2024 Travel 11/06/2024 Travel 10/31/2024 8:00 AM EDT - 10/31/2024 11:59 PM EDT Hospital Encounter [facility] - Ultrasound [address] [place] [address] Encounter for other screening follow-up; Pre-existing type 2 diabetes mellitus in in second trimester Discharge Disposition: Home 10/29/2024 Travel 10/10/2024 11:30 AM EST Telemedicine Maternal- Medicine at [facility] [address] [facility] [place] [address] Josemanuel Jones MD Pre-existing type 2 diabetes mellitus during in second trimester (Primary Dx) 10/08/2024 Travel from Last 3 Months Immunizations Immunization Administration Dates Next Due Tdap 09/06/2009 Family History Medical History Relation Name Comments Diabetes Father Diverticulitis Mother Diabetes Paternal Grandfather Diabetes Sister Prediabetes Polycystic ovary syndrome Sister underactive thyroid Sister Relation Name Status Comments Father Alive Mother Alive Paternal Grandfather Sister Social History Tobacco Use Types Packs/Day Years Used Date Smoking Tobacco: Never Smokeless Tobacco: Never Tobacco Cessation:Counseling Given: Not Answered Alcohol Use Standard Drinks/Week Comments Not Currently 0 (1 standard drink = 0.6 oz pur e alcohol) Childcare Answer Date Recorded Childcare Unknown 01/24/2019 Employment Answer Date Recorded Employment Unknown 01/24/2019 Hunger Screening Answer Date Recorded Within the past 12 months we worried whether our food would run out before we got money to buy more. Never True 11/08/2024 Within the past 12 months th e food we bought just didn't last and we didn't have money to get more. Never True 11/08/2024 Estimated Date of Delivery Comme nts Yes 02/19/2025 Based on Ultraso und Sex and Gender Information Value Date Recorded Sex Assigned at Not on file Legal Sex Female 7:23 PM EDT Gender Identity Not on file Sexual Orientation Not on file Last Filed Vital Signs Vital Sign Reading Time Taken Comments Blood Pressure 128/64 11/08/2024 9:17 AM EDT Pulse 80 11/08/2024 9:17 AM EDT Temperature 36.9 C (98.5 F) 03/03/2017 3:29 PM EDT Respiratory Rate 14 03/03/2017 3:29 PM EDT Oxygen Saturation 98% 11/08/2024 9:17 AM EDT Inhaled Oxygen Concentration - - Weight 107.7 kg (237 lb 6.4 oz) 11/08/2024 9:17 AM EDT Height 177.8 cm (5' 10 ) 11/08/2024 9:17 AM EDT Body Mass Index 34.06 11/08/2024 9:17 AM EDT Plan of Treatment Health Maintenance Due Date Last Done Comments Diabetic Ophthalmology Exam 1995 Urine Microalbumin 1995 Depression Screening 2007 Adult BMI Follow Up Plan 2013 Diabetic Foot Exam 2013 DTaP,Tdap and Td Vaccines (8 - Td or Tdap) 09/06/2019 09/06/2009, 08/25/2007, 09/06/2000, Additional history exists Influenza Vaccine 04/16/2025 Adult BMI Screening 11/08/2025 11/08/2024 Tobacco Screening 11/09/2025 11/09/2024 Pap Smear 02/10/2026 02/10/2023 Medical Devices Not on file Procedures Procedure Name Priority Date/Time Associated Diagnosis Comments POCT EKG Routine 11/08/2024 Long Q-T syndrome US MFM ECHO FOLLOW-UP Routine 10/31/2024 9:07 AM EDT Encounter for other screening follow-up Pre-existing type 2 diabetes mellitus in in second trimester from Last 3 Months Results * POCT EKG (11/08/2024) us Kendall Rowland MD ECG ORDERABLES Final Result MANUALLY TRANSCRIBED RESULTS * US MFM ECHO FOLLOW-UP (10/31/2024 9:07 AM EDT) Anatomical Region Laterality Modality OB-SENIOR QA TESTER Ultrasound 10/31/2024 8:09 AM EDT Narrative 10/31/2024 3:59 PM EDT NAME: ERIC MONTELONGO : 1995 SEX: F Accession Number: [id number] ORDERING PHYSICIAN: JAXON TURCIOS REFERRING PHYSICIAN: DARÍO BANUELOS Coding ----- --------- Procedures [id number]: Follow-up Ultrasound, per fetus [address]: Echocardiography, , cardiovascular system, real time with image documentation (2D), with or without M-mode recording; follow-up or repeat study Indication ----- --------- Screening for follow-up survey, Screening for congenital cardiac abnormality, Pre-existing 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 in , Obesity in History ----- --------- OB History 1 Maternal Assessment ----- --------- Physical Exam Height 178 cm, 5 ft 10 in. Weight 108 kg, 238 lb. BMI 34.15 kg/m Method ----- --------- Transabdominal ultrasound examination. View: Suboptimal view: limited by maternal body habitus ----- --------- Ozuna . Number of fetuses: 1 Dating ----- --------- Previous Ultrasound on: 07/03/2024 Type of prior assessment: GA GA at prior assessment date 7 w + 0 d GA by previous U/S 24 w + 1 d DAVY by previous Ultrasound: 02/19/2025 Ultrasound examination on: 10/31/2024 GA by U/S based upon: AC, BPD, Femur, HC GA by U/S 24 w + 3 d DAVY by U/S: 02/17/2025 Assigned: based on ultrasound (GA), selected on 10/03/2024 Assigned GA 24 w + 1 d Assigned DAVY: 02/19/2025 General Evaluation ----- --------- Cardiac activity Present. FHR 142 bpm. Presentation: cephalic Placenta: Placental site: posterior, away from cervical os Umbilical cord: Cord vessels: 3 vessel cord Amniotic fluid: Amount of AF: normal amount. MVP 4.5 cm Biometry ----- --------- BPD 59.4 mm 24w 2d 47% Hadlock OFD 76.1 mm 25w 0d 80% Rachelle HC 215.9 mm 23w 4d 16% Hadlock Cerebellum tr 27.2 mm 24w 1d 68% Hill AC 208.8 mm 25w 3d 80% Hadlock Femur 43.2 mm 24w 1d 37% Hadlock Humerus 39.3 mm 24w 0d 34% Rachelle HC / AC 1.03 Weight Calculation: EFW 728 g 68% Hadlock EFW (lb,oz) 1 lb 10 oz EFW by Hadlock ([id number]) Head / Face / Neck Biometry: Cephalic index 0.78 45% Nicolaides Manufacturing Production Manager 6.6 mm CM 3.9 mm 4% Nicolaides Extremities / Bony Struc Biometry: FL / BPD 0.73 FL / HC 0.20 FL / AC 0.21 Tibia 38.6 mm 24w 5d 65% Rachelle Anatomy ----- --------- The following structures appear normal: Head/Neck: Cranium. Lateral ventricles. Cavum septi pellucidi. Cerebellum. Cisterna magna. Parenchyma. Face: Lips. Profile. Nose. Nasal bone. Heart/Thorax: 4-chamber view. RVOT view. LVOT view. 3-vessel view. 8-tapvha-iaptfqm view. Great vessels. Right lung. Left lung. Diaphragm. Abdomen: Stomach. Kidneys. Bladder. Small bowel. Large bowel. Genitals. Spine: Cervical spine. Thoracic spine. Lumbar spine. Sacral spine. Extremities/Skeleton: Right foot. Left foot. Skeleton The following structures were documented previously: Head / Neck Choroid plexus. Midline falx. Vermis. Neck. Nuchal fold. Face Maxilla. Mandible. Orbits. Abdomen Abdom. wall. Cord insertion. Right renal artery. Left renal artery. Extremities / Right upper arm. Right forearm. Right hand. Left upper arm. Left forearm. Left hand. Right upper leg. Right lower leg. Left upper leg. Left lower leg. Echocardiogram ----- --------- Situs situs solitus (normal) Cardiac position normal Cardiac axis normal Cardiac size normal (approx. 1/3 of thoracic area) Cardiac rhythm regular (normal) 4-chamber view normal LVOT view normal RVOT view normal 3-vessel view normal 2-ekiuuk-xbodini view normal Aortic arch view documented previously Ductal arch view documented previously Bicaval view documented previously Interventricular septum normal Venous-atrial connections documented previously AV connections normal VA connections normal Pulmonary veins normal Right atrium normal Left atrium normal Atrial septum normal Foramen ovale normal Right ventricle normal Left ventricle normal Ventricular septum normal Cross-over gr. arteries anterior great artery (confirmed to be the pulmonary artery by its branching) which crosses the course of the proximal aorta, indicative of normal relationship of the great arteries Main PA the main pulmonary artery can be seen bifurcating into the ductus arteriosus and the right pulmonary artery Pulmonary arteries normal Linear insertion of AV valves no Pericardial effusion no Maternal Structures ----- --------- Uterus Visualized Cervix Visualized Approach - Transabdominal Right Ovary Visualized Size 34 mm x 26 mm x 24 mm. Vol 10.7 cm Left Ovary Visualized Size 32 mm x 36 mm x 24 mm. Vol 14.5 cm Cul de Sac Visualized Impression ----- --------- Single viable intrauterine with EFW measuring at the 68%. AC measures at the 80%. anatomic survey and echocardiogram did not reveal sonographic evidence of any gross structural abnormalities. Amniotic fluid MVP measures 4.5 cm. Recommendations ----- --------- Follow up growth ultrasounds to be done in referring OB office. Subsequent follow up or other follow up as clinically determined by primary OB provider unless otherwise specified by M. Results forwarded to ordering provider so they can follow up with the patient as necessary. Procedure Note Jaxon Turcios MD - 10/31/2024 NAME: ERIC MONTELONGO : 1995 SEX: F Accession Number: [id number] ORDERING PHYSICIAN: JAXON TURCIOS REFERRING PHYSICIAN: DARÍO BANUELOS Coding ----- --------- Procedures [id number]: Follow-up Ultrasound, per fetus [id number]: Echocardiography, , cardiovascular system, real timewith image documentation (2D), with or without M-mode recording; follow-up or repeat study Indication ----- --------- Screening for follow-up survey, Screening for congenital cardiacabnormality, Pre-existing 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 in , Obesity in History ----- --------- OB History 1 Maternal Assessment ----- --------- Physical Exam Height 178 cm, 5 ft 10 in. Weight 108 kg, 238 lb. BMI 34.15kg/m Method ----- --------- Transabdominal ultrasound examination. View: Suboptimal view: limited bymaternal body habitus ----- --------- Ozuna . Number of fetuses: 1 Dating ----- --------- Previous Ultrasound on: 07/03/2024 Type of prior assessment: GA GA at prior assessment date 7 w + 0 d GA by previous U/S 24 w + 1 d DAVY by previous Ultrasound: 02/19/2025 Ultrasound examination on: 10/31/2024 GA by U/S based upon: AC, BPD, Femur, HC GA by U/S 24 w + 3 d DAVY by U/S: 02/17/2025 Assigned: based on ultrasound (GA), selected on 10/03/2024 Assigned GA 24 w + 1 d Assigned DAVY: 02/19/2025 General Evaluation ----- --------- Cardiac activity Present. FHR 142 bpm. Presentation: cephalic Placenta: Placental site: posterior, away from cervical os Umbilical cord: Cord vessels: 3 vessel cord Amniotic fluid: Amount of AF: normal amount. MVP 4.5 cm Biometry ----- --------- BPD 59.4 mm 24w 2d 47% Hadlock OFD 76.1 mm 25w 0d 80% Rachelle HC 215.9 mm 23w 4d 16% Hadlock Cerebellum tr 27.2 mm 24w 1d 68% Hill AC 208.8 mm 25w 3d 80% Hadlock Femur 43.2 mm 24w 1d 37% Hadlock Humerus 39.3 mm 24w 0d 34% Rachelle HC / AC 1.03 Weight Calculation: EFW 728 g 68% Hadlock EFW (lb,oz) 1 lb 10 oz EFW by Hadlock ([id number]) Head / Face / Neck Biometry: Cephalic index 0.78 45% Nicola[employer] Production Manager 6.6 mm CM 3.9 mm 4% Nicolaides Extremities / Bony Struc Biometry: FL / BPD 0.73 FL / HC 0.20 FL / AC 0.21 Tibia 38.6 mm 24w 5d 65% Rachelle Anatomy ----- --------- The following structures appear normal: Head/Neck: Cranium. Lateral ventricles. Cavum septi pellucidi. Cerebellum.Cisterna magna. Parenchyma. Face: Lips. Profile. Nose. Nasal bone. Heart/Thorax: 4-chamber view. RVOT view. LVOT view. 3-vessel view.3-xdbyte-wiahege view. Great vessels. Right lung. Left lung. Diaphragm. Abdomen: Stomach. Kidneys. Bladder. Small bowel. Large bowel. Genitals. Spine: Cervical spine. Thoracic spine. Lumbar spine. Sacral spine. Extremities/Skeleton: Right foot. Left foot. Skeleton The following structures were documented previously: Head / Neck Choroid plexus. Midline falx. Vermis. Neck. Nuchal fold. Face Maxilla. Mandible. Orbits. Abdomen Abdom. wall. Cord insertion. Right renal artery. Left renalartery. Extremities / Right upper arm. Right forearm. Right hand. Left upper arm.Left forearm. Left hand. Right upper leg. Right lower leg. Left upper leg. Left lower leg. Echocardiogram ----- --------- Situs situs solitus (normal) Cardiac position normal Cardiac axis normal Cardiac size normal (approx. 1/3 of thoracic area) Cardiac rhythm regular (normal) 4-chamber view normal LVOT view normal RVOT view normal 3-vessel view normal 2-qrfpce-jmurnzy view normal Aortic arch view documented previously Ductal arch view documented previously Bicaval view documented previously Interventricular septum normal Venous-atrial connections documented previously AV connections normal VA connections normal Pulmonary veins normal Right atrium normal Left atrium normal Atrial septum normal Foramen ovale normal Right ventricle normal Left ventricle normal Ventricular septum normal Cross-over gr. arteries anterior great artery (confirmed to be thepulmonary artery by its branching) which crosses the course of the proximal aorta, indicative ofnormal relationship of the great arteries Main PA the main pulmonary artery can be seen bifurcatinginto the ductus arteriosus and the right pulmonary artery Pulmonary arteries normal Linear insertion of AV valves no Pericardial effusion no Maternal Structures ----- --------- Uterus Visualized Cervix Visualized Approach - Transabdominal Right Ovary Visualized Size 34 mm x 26 mm x 24 mm. Vol 10.7 cm Left Ovary Visualized Size 32 mm x 36 mm x 24 mm. Vol 14.5 cm Cul de Sac Visualized Impression ----- --------- Single viable intrauterine with EFW measuring at the 68%. FetalAC measures at the 80%. anatomic survey and echocardiogram did not reveal sonographicevidence of any gross structural abnormalities. Amniotic fluid MVP measures 4.5 cm. Recommendations ----- --------- Follow up growth ultrasounds to be done in referring OB office. Subsequent follow up or other follow up as clinically determined byprimary OB provider unless otherwise specified by [facility]. Results forwarded to ordering provider so they can follow up with thepatient as necessary. us Jaxon Turcios MD [facility] US ORDERABLES Final Re sult from Last 3 Months Insurance [employer] Care Teams Rolling Machine Tender Relationship Specialty Start Date End Date Darío Banuelos APRN-CNM [address] [place] [address] PCP - General Nurse Safety Instructor 04/15/18
--- OUTSIDE RECORDS SUMMARY | 2025-01-05 07:05 | XMS_ITS | Encounter Summary ---
Author Organization [facility] Address [address] [place] [address] Care Team Providers Care Feeder Tender Name Role Phone Flaquita Banuelos CNM Unavailable [phone] Unallocated, Noms Provider Primary Care Provi mart Encounter Details Date Type Department Care Team (Late st Contact Info) Description 12/07/2024 [facility] [address] [place] [phone] Unallocated, Noms Provider, [address] [place], [place] [id number] Social History Tobacco Use Types Packs/Day Years [...] How often do you attend chur or caodaism services? More than 4 times per year 06/07/2024 Do you belong to any clubs o r organizations such as mandaeism groups, unions, fraternal or athletic groups, or [...] Recorded Patient Health Questionnaire-2 Score 0 12/07/2024 [facility] - Occupational [...] time in the past [address] [facility], were you homeless or living in a mcc (including now)? No 06/07/2024 Estimated Date of Delivery Comme nts Yes 02/19/2025 Based on Ultraso und Sex and Gender Information Value Date Recorded Sex Assigned at Female 02/08/2023 8:14 AM EDT Legal Sex Female 8:06 PM EDT Gender Identity Female 02/08/2023 8:14 AM EDT Sexual Orientation Not on file documented as of this encounter Functional Status * Over the past 2 weeks, how often have you been bothered by any of the following problems? Question Answer Date of Assessment Author Little interest or pleasure in doing things Not at all 12/07/2024 8:18 AM EDT Abby Herrera LPN Feeling down, depressed, or hopeless Not at all 12/07/2024 8:18 AM EDT Abby Herrera LPN Patient Health Questionnaire-2 Score 0 12/07/2024 8:18 AM EDT Ailin Herrera LPN documented as of this encounter Plan of Treatment Upcoming Encounters Date Type Department Care Team (Late st Contact Info) Description 01/09/2025 4:00 PM EDT Routine [facility] [address] [facility] [place] [address] Flaquita Banuelos, CN [address] [place] [address] 01/15/2025 4:30 PM EDT Routine [facility] [address] [facility] [place] [address] [facility]quita [facility], [facility] [place] [address] 01/18/2025 8:30 AM EDT Office Visit [facility] [address] [place] [phone] Awilda Crenshaw, DO [address] [place] [address] 01/22/2025 4:30 PM EDT Routine [facility] [address] [facility] [place] [address] Flaquita Banuelos, CN [address] [place] [address] 01/29/2025 4:30 PM EDT Routine [facility] [address] [facility] [place] [address] Flaquita Banuelos, [facility] [address] [place] [address] 02/06/2025 4:30 PM EDT Routine [facility] [address] [facility] [place] [place] [phone] Flaquita Banuelos, SADIA [address] [place] [address] 02/12/2025 4:30 PM EDT Routine [facility] [address] [facility] [place] [place] [phone] Flaquita Banuelos, CNM [address] [place] [address] documented as of this encounter Visit Diagnoses Not on filedocumented in this encounter Care Teams Feeder Tender Relationship Specialty Start Date End Date Unallocated, Noms Provider, [address] [place] [address] PCP - General 04/16/23 Flaquita Banuelos CNM [address] [place] [phone] Obstetrics and Gynecology 02/10/23 documented as of this encounter
--- OUTSIDE RECORDS SUMMARY | 2025-01-05 07:05 | XMS_ITS | Encounter Summary ---
Author Organization [facility] Address [address] [place] [address] Care Team Providers Care Ballpoint Pens Assembler Name Role Phone Sheebalaura Flaquita Mccoy CNM Unavailable [phone] Unallocated, Noms Provider Primary Care Provi mart Reason for Visit * Reason Onset Date Comments Med Refill 12/27/2024 Encounter Details Date Type Department Care Team (Late st Contact Info) Description 12/27/2024 Refill [facility] [address] [place] [address] Abby Saul MA Anemia during in third trimester Social History Tobacco Use [...] How often do you attend chur or congregational services? More than 4 times per year 06/07/2024 Do you belong to any clubs o r organizations such as latter-day groups, unions, fraternal or athletic groups, or [...] Recorded Patient Health Questionnaire-2 Score 0 12/07/2024 [facility] - Occupational Stress [...] place to sleep or slept in a halfway (including now)? No 04/09/2023 Housing Stability Vital Sign Answer Raul e Recorded In the last 12 months, was t here a time when you were not able to pay the mortgage or rent on time? No 06/07/2024 In the past 12 months, how m any times have you moved where you were living? 0 06/07/2024 At any time in the past 12 m [facility], were you homeless or living in a halfway (including now)? No 06/07/2024 Estimated Date of [...] PM EDT Routine [facility] [address] [place] [address] Flaquita Banuelos, CNM [address] [facility] [place] [address] 01/15/2025 4:30 PM EDT Routine [facility] [address] [facility] [place] [address] Flaquita Banuelos, CNM [address] [facility] [place] [address] 01/18/2025 8:30 AM EDT Office Visit [facility] [address] [place] [address] Awilda Crenshaw, DO [address] [place] [address] 01/22/2025 4:30 PM EDT Routine [facility] [address] [facility] [place] [address] Flaquita Banuelos, CNM [address] [facility] [place] [address] 01/29/2025 4:30 PM EDT Routine [facility] [address] [facility] [address] [place] [address] Flaquita Banuelos, CNM [address] [facility] [place] [address] 02/06/2025 4:30 PM EDT Routine [facility] [address] [facility] [address] [place] [address] Flaquita Banuelos, CNM [address] [place] [address] 02/12/2025 4:30 PM EDT Routine [facility] [address] [facility] [address] [place] [address] Flaquita Banuelos, CNM [address] [place], [place] [phone] documented as of this encounter Visit Diagnoses Diagnosis Anemia during in third trimester documented in this encounter Care Teams Ballpoint Pens Assembler Relationship Specialty Start Date End Date Unallocated, Noms Provider, [address] [place] [address] PCP - General 04/16/23 Flaquita Banuelos CNM [address] [place], [place] [phone] Obstetrics and Gynecology 02/10/23 documented as of this encounter
--- OUTSIDE RECORDS SUMMARY | 2025-01-05 07:05 | XMS_ITS | Encounter Summary ---
Author Organization [facility] Address [id number] [address] [place] [address] Care Team Providers Care Glove Examiner Name Role Phone Flaquita Banuelos BAMBI-CNM Primary Care Provider [phone] Encounter Details Date Type Department Care Team (Late st Contact Info) Description 09/18/2024 Orders Only [facility] [address] [place] [address] External, Scanning Provider Social History Tobacco Use Types Packs/Day Years [...] got money to buy more. Never True 09/19/2024 Within the past 12 months th e food we bought just didn't last and we didn't have money to get more. Never True 09/19/2024 Estimated Date of Delivery Comme nts Yes [...] Procedure Name Priority Date/Time Associated Diagnosis Comments ECG 12-LEAD Routine 1995 3:08 PM EST documented in this encounter Results * ECG 12 lead (1995 3:08 PM EST) us Scanning Provider External ECG ORDERABLES Final Result [facility] [address] [place] [address] documented in this encounter Visit Diagnoses Not on filedocumented in this encounter Additional Health Concerns Assessment Noted Time PHQ-9 Depression Total Score: 0 03/03/20 17 3:00 PM EDT documented as of this encounter Care Teams Glove Examiner Relationship Specialty Start Date End Date Flaquita Banuelos APRN-CNM [address] [place] [address] PCP - General Nurse Insurance Manager 04/15/18 documented as of this encounter
--- OUTSIDE RECORDS SUMMARY | 2025-01-05 07:05 | XMS_ITS | Encounter Summary ---
Author Organization [facility] Address [address] [place] [address] Care Team Providers Care Six Sigma Black Belt Engineer Name Role Phone Flaquita Banuelos CNM Unavailable [phone] Unallocated, Noms Provider Primary Care Provi mart Encounter Details Date Type Department Care Team (Latest Contact Info) Description 12/25/2024 Travel Social History Tobacco Use Types Packs/Day Years [...] How often do you attend chur or hinduism services? More than 4 times per year [...] Recorded Patient Health Questionnaire-2 Score 0 12/07/2024 [facility] of Occupat ional [facility] - Occupational Stress Questionnaire Answer Date [...] any time in the past 12 m [facility], were you homeless or living in [...] EDT Routine [facility] [address] [place] [address] Flaquita Banuelos, CNM [address] [place] [address] 01/15/2025 4:30 PM EDT Routine [facility] [address] [facility] [place] [address] Flaquita Banuelos, CN [address] [facility] [place] [address] 01/18/2025 8:30 AM EDT Office Visit [facility] [address] [place] [address] Awilda Crenshaw, DO [address] [place] [address] 01/22/2025 4:30 PM EDT Routine [facility] [address] [facility] [place] [address] Flaquita Banuelos, [facility] [address] [facility] [place] [address] 01/29/2025 4:30 PM EDT Routine [facility] [address] [facility] [place] [address] Flaquita Banuelos, CN [address] [facility] [place] [address] 02/06/2025 4:30 PM EDT Routine [facility] [address] [facility] [place] [address] Flaquita Banuelos, CN [address] [facility] [place] [address] 02/12/2025 4:30 PM EDT Routine [facility] [address] [facility] [place] [address] Flaquita Banuelos, CN [address] [facility] [place] [address] documented as of this encounter Visit Diagnoses Not on filedocumented in this encounter Care Teams Six Sigma Black Belt Engineer Relationship Specialty Start Date End Date Unallocated, Noms Provider, [place] [address] PCP - General 04/16/23 Flaquita Banuelos CNM [address] [place], [place] [phone] Obstetrics and Gynecology 02/10/23 documented as of this encounter
--- OUTSIDE RECORDS SUMMARY | 2025-01-05 07:05 | XMS_ITS | Encounter Summary ---
Author Organization [facility] Address [address] [place] [address] Care Team Providers Care Supervisor Broadloom Name Role Phone Flaquita Banuelos CNM Unavailable [phone] Unallocated, Noms Provider Primary Care Provi mart Encounter Details Date Type Department Care Team (Late st Contact Info) Description 01/04/2025 Results Follow-Up [facility] [address] [place] [address] Flaquita Banuelos, CNM [address] [place], [place] [id number] Social History Tobacco Use Types Packs/Day Years [...] often do you attend chur ch or sabianism services? More than 4 times per year 06/07/2024 Do you belong to any clubs o r organizations such as islam groups, unions, fraternal or athletic groups, or [...] place to sleep or slept in a penitentiary (including now)? No 04/09/2023 Housing Stability Vital [...] were you homeless or living in a penitentiary (including now)? No 06/07/2024 Estimated Date of [...] PM EDT Routine [facility] [address] [place] [address] Flaquita Banuelos, CNM [address] [place] [address] 01/15/2025 4:30 PM EDT Routine [facility] [address] [facility] [place] [address] Flaquita Banuelos, CNM [address] [place] [address] 01/18/2025 8:30 AM EDT Office Visit [facility] [address] [place] [address] Awilda Crenshaw, DO [address] [place] [address] 01/22/2025 4:30 PM EDT Routine [facility] [address] [facility] [place] [address] Flaquita Banuelos, CNM [address] [place] [address] 01/29/2025 4:30 PM EDT Routine [facility] [address] [facility] [place] [address] Flqauita Banuelos, CNM [address] [place] [address] 02/06/2025 4:30 PM EDT Routine [facility] [address] [facility] [place] [address] Flaquita Banuelos, CNM [address] [place] [address] 02/12/2025 4:30 PM EDT Routine [facility] [address] [facility] [place] [address] Flaquita Banuelos CNM [address] [place], [place] [address] documented as of this encounter Visit Diagnoses Not on filedocumented in this encounter Care Teams Supervisor Broadloom Relationship Specialty Start Date End Date Unallocated, Noms Provider, [address] [place] [address] PCP - General 04/16/23 Flaquita Banuelos CNM [address] [place] [address] Obstetrics and Gynecology 02/10/23 documented as of this encounter
--- OUTSIDE RECORDS SUMMARY | 2025-01-05 07:05 | XMS_ITS | Encounter Summary ---
Author Organization [facility] Address [address] [place] [address] Care Team Providers Care Elementary School Registrar Name Role Phone Flaquita Banuelos CNM Unavailable [phone] Unallocated, Noms Provider Primary Care Provi mart Awilda Crenshaw DO Unavailable [phone] Encounter Details Date Type Department Care Team (Late st Contact Info) Description 08/31/2023 Abstract [facility] [address] [facility] [address] [place] [address] Awilda Crenshaw, [address] [facility] [address] [place] [address] Social History Tobacco Use Types Packs/Day Years [...] How often do you attend chur or druze services? More than 4 times per year 04/09/2023 Do you belong to any clubs o r organizations such as rastafari groups, unions, fraternal or athletic groups, or [...] Recorded Patient Health Questionnaire-2 Score 0 04/16/2023 [facility] - Occupational [...] in a half-way (including now)? No 04/09/2023 Comments No Sex [...] PM EDT Routine [facility] [address] [place] [address] Flaquita Banuelos CN [address] [place] [address] 01/15/2025 4:30 PM EDT Routine [facility] [address] [place] [address] Flaquita Banuelos CNM [address] [place] [address] 01/18/2025 8:30 AM EDT Office Visit [facility] [address] [place] [address] Awilda Crenshaw DO [address] [place] [address] 01/22/2025 4:30 PM EDT Routine [facility] [address] [facility] [place] [address] Flaquita Banuelos, CNM [address] [place] [address] 01/29/2025 4:30 PM EDT Routine [facility] [address] [facility] [place] [address] Flaquita Banuelos, CN [address] [facility] [place] [address] 02/06/2025 4:30 PM EDT Routine [facility] [address] [facility] [place] [address] Flaquita Banuelos, CNM [address] [facility] [place] [address] 02/12/2025 4:30 PM EDT Routine [facility] [address] [facility] [place] [address] Flaquita Banuelos, CN [address] [facility] [place] [address] documented as of this encounter Visit Diagnoses Not on filedocumented in this encounter Care Teams [employer] Registrar Relationship Specialty Start Date End Date Unallocated, Noms Provider, [address] [place] [address] PCP - General 04/16/23 Awilda Crenshaw, DO [address] [place] [address] PCP - Eugenio Saenz Commercial 06/16/23 Flaquita Banuelos CNM [address] [place] [address] Obstetrics and Gynecology 02/10/23 documented as of this encounter
--- OUTSIDE RECORDS SUMMARY | 2025-01-05 07:05 | XMS_ITS | Encounter Summary ---
Author Organization [facility] Address [address] [place] [address] Care Team Providers Care Food And Beverage Manager Name Role Phone Vin Flaquita Mccoy CNM Unavailable [phone] Unallocated, Noms Provider Primary Care Provi mart Reason for Visit * Reason Onset Date Comments Med Refill 12/28/2024 Encounter Details Date Type Department Care Team (Late st Contact Info) Description 12/28/2024 Refill [facility] [address] [place] [address] Abby Saul MA Anemia during [...] How often do you attend chur or islam services? More than 4 times per year 06/07/2024 Do you belong to any clubs o r organizations such as voodoo groups, unions, fraternal or athletic groups, or [...] Recorded Patient Health Questionnaire-2 Score 0 12/07/2024 [facility] of Occupat ional Health - Occupational Stress [...] any time in the past 12 m [facility], were you homeless or living [...] PM EDT Routine [facility] [address] [place] [address] Flaquita Banuelos, CNM [address] [place] [address] 01/15/2025 4:30 PM EDT Routine [facility] [address] [facility] [place] [address] Flaquita Banuelos, CNM [address] [place] [address] 01/18/2025 8:30 AM EDT Office Visit [facility] [address] [place] [address] Awilda Crenshaw, DO [address] [place] [address] 01/22/2025 4:30 PM EDT Routine [facility] [address] [facility] [place] [address] Flaquita Banuelos, CNM [address] [place] [address] 01/29/2025 4:30 PM EDT Routine [facility] [address] [facility] [place] [address] Flaquita Banuelos, CNM [address] [place] [address] 02/06/2025 4:30 PM EDT Routine [facility] OB [address] [facility] [place] [address] Flaquita Banuelos, CNM [address] [place] [address] 02/12/2025 4:30 PM EDT Routine [facility] [address] [facility] [place] [address] Flaquita Banuelos, CNM [address] [place], [place] [address] documented as of this encounter Visit Diagnoses Diagnosis Anemia during in third trimester documented in this encounter Care Teams Food And Beverage Manager Relationship Specialty Start Date End Date Unallocated, Noms Provider, [address] [place] [address] PCP - General 04/16/23 Flaquita Banuelos CNM [address] [place], [place] [phone] Obstetrics and Gynecology 02/10/23 documented as of this encounter
--- OUTSIDE RECORDS SUMMARY | 2025-01-05 07:05 | XMS_ITS | Encounter Summary ---
Author Organization [facility] Address [address] [place] [address] Care Team Providers Care Nutrition Program Instructor Name Role Phone Flaquita Banuelos CNM Unavailable Unallocated, Noms Provider Primary Care Provi mart Awilda Crenshaw DO Unavailable [phone] Encounter Details Date Type Department Care Team (Late st Contact Info) Description 10/20/2024 Abstract [facility] [address] [place] [address] Awilda Crenshaw, DO [address] [facility] [address] [place] [address] Social History Tobacco Use Types Packs/Day Years [...] How often do you attend chur or baptist services? More than 4 times per year 06/07/2024 Do you belong to any clubs o r organizations such as restorationism groups, unions, fraternal or athletic groups, or [...] Patient Health Questionnaire-2 Score 0 10/09/2024 [facility] of Occupat ional Health - Occupational Stress [...] place to sleep or slept in a correction (including now)? No 04/09/2023 Housing Stability Vital [...] were you homeless or living in a correction (including now)? No 06/07/2024 Estimated Date of [...] OB [address] [place] [address] Flaquita Banuelos, CNM [address] [place] [address] 01/15/2025 4:30 PM EDT Routine [facility] [address] [facility] [address] Flaquita Banuelos, CNM [address] [place] [address] 01/18/2025 8:30 AM EDT Office Visit [facility] [address] [place] [address] Awilda Crenshaw, DO [address] [place] [address] 01/22/2025 4:30 PM EDT Routine [facility] [address] [facility] [place] [address] [address] Flaquita Banuelos, CNM [address] [place] [address] 01/29/2025 4:30 PM EDT Routine [facility] [address] [facility] [address] [address] Flaquita Banuelos, CN [address] [place] [address] 02/06/2025 4:30 PM EDT Routine [facility] [address] [facility] [address] [address] Flaquita Banuelos, CNM [address] [place] [address] 02/12/2025 4:30 PM EDT Routine [facility] [address] [facility] [address] [address] Flaquita Banuelos CNM [address] [place] [address] documented as of this encounter Visit Diagnoses Not on filedocumented in this encounter Care Teams Nutrition Program Instructor Relationship Specialty Start Date End Date Unallocated, Noms Provider, [address] [place] [address] PCP - General 04/16/23 Awilda Crenshaw DO [address] [address] PCP - [place] Commercial 06/16/23 Flaquita Banuelos CNM [address] [place] [address] Obstetrics and Gynecology 02/10/23 documented as of this encounter
--- OUTSIDE RECORDS SUMMARY | 2025-01-05 07:06 | XMS_ITS | Encounter Summary ---
Author Organization [facility] Address [address] [place] [address] Care Team Providers Care Master Rigger Name Role Phone Flaquita Banuelos CNM Unavailable [phone] Unallocated, Noms Provider Primary Care Provi mart Awilda Crenshaw DO Unavailable Encounter Details Date Type Department Care Team (Late st Contact Info) Description 10/06/[address] [facility] [address] [place] [address] Awilda Crenshaw, DO [address] [facility] [address] [place] [address] Social History Tobacco Use Types Packs/Day Years [...] any clubs o r organizations such as holiness groups, unions, fraternal or athletic groups, or [...] Recorded Patient Health Questionnaire-2 Score 0 10/09/2024 [facility] [place] of Occupat ional Health - Occupational Stress [...] place to sleep or slept in a care home (including now)? No 04/09/2023 Housing Stability [...] any time in the past 12 m [facility], were you homeless or living in a care home (including now)? No 06/07/2024 Estimated Date [...] pleasure in doing things Not at all 10/09/2024 3:43 PM Abby Mendez LPN Feeling down, depressed, or hopeless Not at all 10/09/2024 3:43 PM Abby Mendez LPN Patient Health Questionnaire-2 Score 0 10/09/2024 3:43 PM Ailin Mendez LPN documented as of this encounter Plan of Treatment Upcoming Encounters Date Type Department Care Team (Late st Contact Info) Description 01/09/2025 4:00 PM EDT Routine [facility] OB [facility] [place] [place] [address] Flaquita Banuelos, CN[address] [place] [address] 01/15/2025 4:30 PM EDT Routine [facility] F[facility] OB [address] [place] [address], [place] [address] Flaquita Banuelos, C[address] [place] [address] 01/18/2025 8:30 AM EDT Office Visit [facility] [address] [place] [address] Awilda Crenshaw, DO [address] [place] [address] 01/22/2025 4:30 PM EDT Routine [facility] OB [facility] [address] [place] [address] Flaquita Banuelos, CN [address] [place] [address] 01/29/2025 4:30 PM EDT Routine [facility] OB [address] [facility] [place] [address] Flaquita Banuelos, C[address] [place] [address] 02/06/2025 4:30 PM EDT Routine [facility] OB [address] [facility] [place] [place] [address] Flaquita Banuelos, CNM [address] [place] [address] 02/12/2025 4:30 PM EDT Routine [facility] OB [address] [facility] [place] [address] Flaquita Banuelos, CNM [address]79 [facility], [place] [address] documented as of this encounter Visit Diagnoses Not on filedocumented in this encounter Care Teams Master Rigger Relationship Specialty Start Date End Date Unallocated, Noms Provider, [facility] [place] [address] PCP - General 04/16/23 Awilda Crenshaw DO [address] [address] PCP - [place] Commercial 06/16/23 Flaquita Banuelos CNM [address] [place] [id number] Obstetrics and Gynecology 02/10/23 documented as of this encounter
--- OUTSIDE RECORDS SUMMARY | 2025-01-05 07:06 | XMS_ITS | Clinical Summary ---
Author Organization [facility] Address [address] [place] [address] Care Team Providers Care Strawhat Sizer Name Role Phone Flaquita Banuelos CNM Unavailable [phone] Unallocated, [facility] Provider MD Primary Care Provi mart Allergies No known active allergies Medications metFORMIN (Glucophage) 1000 MG tabletIndicatio ns: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 mellitus without complication, without long-term current use of insulin 1/2 tablet in the am and 1 tablet in the evening 180 tablet 3 4 Active Continuous Glucose Sensor (Dexcom G7 Sensor) misc USE DIRECTED to test BLOOD SUGAR change EVERY TEN days 4 Active aspirin 81 MG EC tablet Take 81 mg by mouth in the morning. 4 Active acetone, urine, test (Ketostix) strip Check urine for ketones if blood sugar/glucose 200 or above daily as needed. Use as directed. 4 Active acetaminophen (Tylenol) 500 MG tablet Take 500 mg by mouth every 6 (six) hours if needed Active insulin pen needle (B-D UF III MINI PEN NEEDLES) 31G x 5 mm miscIndications :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 mellitus without complication, without long-term current use of insulin USE DIRECTED FIVE TIMES DAILY 400 each 3 5 Active insulin lispro (HumaLOG KWIKPEN) 100 UNIT/ML injectionIndica tions: with type 2 diabetes mellitus in second trimester 1-2 units breakfast, 5-12 units lunch/dinner (max daily 50 units) 15 mL 3 5 Active insulin NPH, Isophane, (HumuLIN N KWIKPEN) 100 UNIT/ML injection 10 units am and 17 units pm 15 mL 3 5 Active ferrous sulfate (Fe Tabs) 325 (65 Fe) MG EC tabletIndicatio ns:Anemia during in third trimester Take 1 tablet (325 mg) by mouth in the morning and 1 tablet (325 mg) before bedtime. Take before meals. Do not crush, chew, or split. 60 tablet 5 12/29/19 26 Active docusate sodium (Colace) 100 MG capsuleIndicati ons:Anemia during in third trimester Take 1 capsule (100 mg) by mouth in the morning and 1 capsule (100 mg) before bedtime. 60 capsule 5 04/27/20 25 Active insulin lispro (HumaLOG KWIKPEN) 100 UNIT/ML injectionIndica tions: with type 2 diabetes mellitus in second trimester 5 units small meals and 8 units large meals (max daily 50 units) 15 mL 5 12/08/19 25 Discontinu ed(Dose adjustment ) insulin NPH, Isophane, (HumuLIN N KWIKPEN) 100 UNIT/ML injection 10 units am and 20 units pm 15 mL 5 12/08/19 25 Discontinu ed(Dose adjustment ) ferrous sulfate (Fe Tabs) 325 (65 Fe) MG EC tabletIndicatio ns:Anemia during in third trimester Take 1 tablet (325 mg) by mouth in the morning and 1 tablet (325 mg) before bedtime. Take before meals. Do not crush, chew, or split. 60 tablet 5 12/29/19 25 Discontinu ed(Reorder ) docusate sodium (Colace) 100 MG capsuleIndicati ons:Anemia during in third trimester Take 1 capsule (100 mg) by mouth in the morning and 1 capsule (100 mg) before bedtime. 60 capsule 5 12/29/19 25 Discontinu ed(Reorder ) Active Problems Problem Noted Date Diagnosed Date with type 2 diabetes mellitus in third trimester 09/01/2024 Assessment & Plan (12/07/2024 8:37 AM EDT): During the appointment today all pertinent labs, [...] and increase insulin for her larger meals. Assessment & Plan (10/09/2024 6:33 PM EST): Continue to check fasting and PP readings with goals of fasting < 95 mg/dl, 1hr < 140 mg/dl, 2 hr < 120 mg/dl. She is to call with any problems or not improving. Send BG readings on a weekly basis. Will stay on current therapy as she is doing very well. Will continue to monitor closely and adjust her insulin doses accordingly. Assessment & Plan (09/01/2024 12:44 PM EST): During the appointment today all pertinent labs, [...] go over her dexcom and make adjustments. Insulin resistance 04/16/2023 Mixed hyperlipidemia 04/16/2023 PCOS (polycystic ovarian syndrome) 04/16/2023 Plantar wart of right foot 04/16/2023 Pure hyperglyceridemia 04/16/2023 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 mellitus wit hout complication, without long-term current use of insulin 04/16/2023 Assessment & Plan (06/08/2024 2:54 PM EDT): During the appointment today all pertinent labs, [...] she is on safe medications for this. Assessment & Plan (02/28/2024 3:39 PM EDT): During the appointment today all pertinent labs, [...] Reginald Reyes control is stable overall. , Instructions given today include: Insulin instructions. She is trying to get so will try and maximize bg control prior to . Ok to stay on lower dose of metformin. Discussed option of metformin XR but she wishes to hold off on this. Will increase insulin in the evening to help improve am readings. Assessment & Plan (11/29/2023 9:09 PM EDT): During the appointment today all pertinent labs, [...] Reginald Reyes control is stable overall. , Instructions given today include: Insulin instructions. Will increase NPH to improve control a little. Will stay on medications safe to use during as pt is trying to conceive. Assessment & Plan (07/20/2023 10:12 AM EST): During the appointment today all pertinent labs, [...] , Will stay on current medications. She wants to try to get but wait until after the holidays to start trying. Will stay on current meds but once she starts trying will switch to metformin and NPH insulin. Instructed pt on how to take the insulin as well as glucose goals during . She is to call when she is ready to change medications. Assessment & Plan (04/16/2023 8:58 AM EDT): During the appointment today all pertinent labs, [...] any problems or questions. Reginald Reyes is making improvements and encouraged on this. , Discussed dietary changes at length. Encouraged to limit simple carbs and focus more on healthy protein/fat with all meals and snacks. They should also avoid any sugary drinks. , Instructions given today include: Dietary education. Will increase mounjaro. Discussed potentially getting off this and jardiance when she starts to actively try to get . Will most likely try metformin and insulin at that time. Abnormal glucose 12/29/2016 Long Q-T syndrome 12/29/2016 Estimated Date of Delivery Comme nts Yes 02/19/2025 Based on Ultraso und Encounters Date Type Department Care Team Description 01/04/2025 Results Follow-Up [facility] OB [address] [place] [address] Flaquita Banuelos CNM 01/01/2025 4:30 PM EDT Routine [facility] OB [address] [place] [address] Flaquita Banuelos CNM Screening for iron deficiency anemia (Primary Dx); Dysuria 01/01/2025 Bamboo flowsheet [facility] OB [address] [place] [address] Flaquita Banuelos CNM 01/01/2025 Travel 12/29/2024 Clinisync Result Encounter [facility] External Department Unsolicited Nick Sam DO 12/28/2024 Refill [facility] OB [address] [facility] [place] [address] Abby Saul MA Anemia during in third trimester 12/27/2024 Results Follow-Up [facility] OB [address] [facility] [place] [address] Abby Saul MA 12/27/2024 Refill [facility] OB [address] [facility] [place] [address] Abby Saul MA Anemia during in third trimester 12/26/2024 4:00 PM EDT Routine [facility] OB [address] [facility] [place] [address] Flaquita Banuelos, SADIA with type 2 diabetes mellitus in third trimester (Primary Dx); Screening for iron deficiency anemia; 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 mellitus treated with insulin ([facility]) 12/26/2024 Bamboo flowsheet [facility] OB [address] [facility] [place] [address] Flaquita Banuelos, SADIA 12/25/2024 10:20 AM EDT Consult [facility] [address] [facility] [place] [address] Nick Sam DO with type 2 diabetes mellitus in third trimester 12/25/2024 Travel 12/25/2024 Bamboo flowsheet [facility] OB [address] [facility] [place] [address] Nick Sam DO 12/20/2024 Results Follow-Up [facility] OB [address] [facility] [place] [address] Flaquita Banuelos, SADIA 12/20/2024 Orders Only [facility] OB [address] [facility] [place] [address] Flaquita Banuelos, SADIA with type 2 diabetes mellitus in third trimester 12/11/2024 4:30 PM EDT Ancillary Procedure [facility] ULTRASOUND [address] [place] [address] related condition in third trimester 12/11/2024 4:00 PM EDT Routine [facility] OB [address] [facility] [place] [address] Flaquita Banuelos CNM with type 2 diabetes mellitus in third trimester 12/11/2024 Bamboo flowsheet [facility] OB [address] [place] [address] Flaquita Banuelos CNM 12/11/2024 Travel 12/07/2024 8:15 AM EDT Office Visit [facility] [address] [place] [address] Awilda Crenshaw, with type 2 diabetes mellitus in third trimester (Primary Dx); with type 2 diabetes mellitus in second trimester 12/07/2024 Abstract [facility] [address] [place] [address] Unallocated, Danay Biggs MD 12/07/2024 Travel 12/04/2024 Travel 11/30/2024 Abstract [facility] [address] [place] [address] Awilda Crenshaw DO 11/30/2024 Travel 11/29/2024 Telephone [facility] [address] [place] [address] Bonny Garcia LPN BG readings 11/15/2024 4:30 PM EDT Routine [facility] OB [address] [place] [address] Flaquita Banuelos CNM Encounter for care of first , second trimester (Primary Dx); related condition in third trimester; Gestational diabetes mellitus (GDM) requiring insulin 11/15/2024 Bamboo flowsheet [facility] OB [address] [place] [address] Flaquita Banuelos CNM 11/14/2024 Travel 11/10/2024 Abstract [facility] [address] [place] [address] Awilda Crenshaw, DO 11/03/2024 Abstract [facility] [address] [place] [address] Awilda Crenshaw, DO 10/20/2024 Abstract [facility] [address] [facility] [address] [place] [address] Awilda Crenshaw, DO 10/18/2024 4:30 PM EST Routine [facility] OB [address] [place] [address] Flaquita Banuelos, CNM 10/18/2024 Bamboo flowsheet [facility] OB [address] [place] [address] Flaquita Banuelos, CNM 10/09/2024 3:45 PM EST Office Visit [facility] FM [address] [facility] [address] [place] [address] Awilda Crenshaw, DO with type 2 diabetes mellitus in second trimester (Primary Dx); 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 mellitus without complication, without long-term current use of insulin ([facility]) 10/09/2024 Travel from Last 3 Months Immunizations Immunization Administration Dates Next Due DTaP, Unspecified 09/06/2000, 7,02/25/1996,1995,0 1995 Hep B, Adolescent or Pediatric 02/25/1996,1995,1995 HiB, unspecified 10/12/1996,02/25/1996, 6,1995 MMR 09/06/2000,10/12/1996 Meningococcal MCV4P 08/25/2007 Polio, Unspecified 09/06/2000,02/25/1996, 996,1995 Tdap 09/06/2009,08/25/2007 Varicella 08/25/2007,12/24/1996 Family History Medical History Relation Name Comments No Known Problems Brother Diabetes type II Father Diverticulitis Mother No Known Problems Sister 1 Diabetes Sister 2 Polycystic ovary syndrome Sister 2 underactive thyroid Sister 2 Relation Name Status Comments Brother Father Alive Mother Alive Sister 1 Alive Sister 2 Alive Social History Tobacco Use Types Packs/Day Years Used Date Smoking Tobacco: Never Smokeless Tobacco: Never Tobacco Cessation:Counseling Given: Not Answered Alcohol Use Standard Drinks/Week Comments Yes 0 [...] often do you attend chur ch or latter day services? More than 4 times per year 06/07/2024 Do you belong to any clubs o r organizations such as yazdanism groups, unions, fraternal or athletic groups, or [...] Recorded Patient Health Questionnaire-2 Score 0 12/07/2024 [facility] of Occupat ional Health - Occupational Stress [...] AM EDT Sexual Orientation Not on file Last Filed Vital Signs Vital Sign Reading Time Taken Comments Blood Pressure 120/72 01/01/2025 4:33 PM EDT Pulse 86 12/07/2024 8:17 AM EDT Temperature 36.6 C (97.9 F) 12/07/2024 8:17 AM EDT Respiratory Rate - - Oxygen Saturation 98% 12/07/2024 8:17 AM EDT Inhaled Oxygen Concentration - - Weight 108 kg (239 lb) 01/01/2025 4:33 PM EDT Height 177.8 cm (5' 10 ) 12/07/2024 8:17 AM EDT Body Mass Index 34.29 12/07/2024 8:17 AM EDT Plan of Treatment Upcoming Encounters Date Type Department Care Team (Late st Contact Info) Description 01/09/2025 4:00 PM EDT Routine [facility] OB [address] [place] [address] Flaquita Banuelos CNM [address] [place], [place] [address] 01/15/2025 4:30 PM EDT Routine [facility] OB [address] [place] [address] Flaquita Banuelos CNM [address] [place] [address] 01/18/2025 8:30 AM EDT Office Visit [facility] FM [address] [place] [address] TristonAwilda carr, DO [address] [place] [address] 01/22/2025 4:30 PM EDT Routine [facility] OB [address] [facility] [place] [address] Flaquita Banuelos, CNM [address] [place] [address] 01/29/2025 4:30 PM EDT Routine [facility]NR OB [address] [facility] [place] [address] Flaquita Banuelos, CNM [address] [place] [address] 02/06/2025 4:30 PM EDT Routine [facility] OB [address] [facility] [place] [address] Flaquita Banuelos, CNM [address] [place] [address] 02/12/2025 4:30 PM EDT Routine [facility]NR OB [address] [facility] [place] [address] Flaquita Banuelos, CNM [address] [place] [address] Health Maintenance Due Date Last Done Comments Diabetes: Retinopathy Screening 2005 Diabetes: Hemoglobin A1C 01/06/2025 025, 07/10/2024, 06/08/2024, Additional history exists Influenza Vaccine (Season Ended) 2025 Diabetes: Urine Protein Screening 08/30/2025 025 Procedures Procedure Name Priority Date/Time Associated Diagnosis Comments CULTURE, URINE, ROUTINE Routine 01/02/20 5:00 PM EDT Dysuria US OB BPP W NON-STRESS 12/29/2024 9:36 AM EDT CBC Routine 12/26/2024 4:19 PM EDT Screening for iron deficiency anemia POCT URINALYSIS DIPSTICK Routine 12/25/2024 10:52 AM EDT with type 2 diabetes mellitus in third trimester US OB FOLLOW UP TRANSABDOMINAL APPROACH Routine 12/11/2024 4:54 PM EDT related condition in third trimester POCT GLYCOSYLATED HEMOGLOBIN (HGB A1C) Routine 10/09/2024 3:49 PM EST 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 mellitus without complication, without long-term current use of insulin ([facility]) from Last 3 Months Results * Urine culture (01/01/2025 5:00 PM EDT) MICRO NUMBER [id number] [facility] SPECIMEN QUALITY Adequate [facility] SOURCE: (QUEST) [...] Performing Organization Information Site ID: QPT Name: [facility] Address: [address] [place] [address], [address] [place] [phone] Director: Devendra Aguilar MD us Flaquita Banuelos CNM LAB MICROBIOLOGY - GENERAL O RDERABLES Final Result [facility] * US OB BPP W NON-STRESS (12/29/2024 9:36 AM EDT) Anatomical Region Laterality Modality Other 12/29/2024 9:36 AM EDT Narrative 12/29/2024 9:38 AM EDT [address] [address] Ultrasound Report Signed Patient: REGINALD REYES MR#: [id number] : 1995 Acct:[id number] Age/Sex: 29 / F ADM Date: 12/29/24 Loc: US Attending Dr: Nick Sam D.O. Ordering Physician: Nick Sam D.O. Date of Service: 12/29/24 Procedure(s): US OB BPP w non-stress Accession Number(s): [id number] cc: Nick Sam D.O.; Physician,Non-Staff [facility] The [address] [id number] Patient Name: REGINALD REYES MRN: [id number] date: 1995 Sex: F Assigned Patient Location: [facility] Current Patient Location: Accession/Order Number: [id number] Exam Date: 12/29/2024 09:34 Report Date: 12/29/2024 [...] Roberson M.D. 12/29/2024 9:36 AM Dictation Location: [facility] Electronically authenticated by: [id number] Y Date: 12/29/2024 09:36 Dictated By: Zak Roberson M.D. Signed By: 12/29/2438 DD/ 5 TD/TT: Trimming Inspector: Procedure Note Radiology, Radiologist, - 12/29/2024 [place] [address] Ultrasound Report Signed Patient: REGINALD REYES MMR#: [id number] : 1995Acct:[id number] Age/Sex: 29 / FADM Date: 12/29/24 Loc: US Attending Dr: Nick Sam D.O. Ordering Physician: Nick Sam D.O. Date of Service: 12/29/24 Procedure(s): US OB BPP w non-stress Accession Number(s): [id number] cc: Nick Sam D.O.; Physician,Non-Staff [facility] [place] [address] Patient Name: REGINALD REYES MRN: [facility]:[id number] date: 1995 Sex: F Assigned Patient Location: [facility] Current Patient Location: Accession/Order Number: [id number] Exam Date: 12/29/2024 09:34 Report Date: 12/29/2024 [...] Roberson M.D. 12/29/2024 9:36 AM Dictation Location: [place] [address] Electronically authenticated by: [id number] Y Date: 9:36 Dictated By: Zak Roberson M.D. Signed By:12/29/2438 DD/ 5 TD/TT: Trimming Inspector: us Nick Flaco DO [facility] Final Result * (ABNORMAL) CBC (12/26/2024 4:19 PM EDT) [...] Performing Organization Information Site ID: QPT Name: [facility] Address: [address] [place] [address], [address] [place] [phone] Director: Devendra Aguilar MD us Flaquita Banuelos CNM LAB BLOOD ORDERABLES Final R esult [facility] * POCT urinalysis dipstick manually resulted (12/25/2024 [...] - 9 Protein, UA Negative Negative - 1999(20) ++++ mg/dL Urobilinogen, UA 1.0 0.2 - 12 mg/dL Leukocytes, UA Positive Negative - 500+++ Cal/mcL Comment:small Nitrite, UA Negative Negative - Positive Urine 12/25/2024 10:5 2 AM EDT us Nick Flaco DO POINT OF CARE TEST ENTER/EDIT OR DERABLES Final Result * US OB follow up transabdominal approach (12/11/2024 4:54 PM EDT) Anatomical Region Laterality Modality Body Ultrasound 12/12/2024 7:14 PM EDT Narrative 12/12/2024 7:14 PM EDT EXAM: US OB FOLLOW UP TRANSABDOMINAL APPROACH [...] II, MD, PHD at 12-Dec-2024 07:13:14 PM [facility] Procedure Note Yuli Mccarthy MD - 12/12/2024 EXAM: US OB FOLLOW UP TRANSABDOMINAL APPROACH HISTORY: Morbid obesity. DAVY 02/19/2025. COMPARISON: U/S OB 10/31/2024, 10/03/2024 TECHNIQUE: Two-dimensional transabdominal grayscale ultrasound imaging ofthe pelvis was performed. FINDINGS: Gestation: Single Presentation: Cephalic Cardiac Activity: 145 beats per minute Placental Location: Posterior with no sonographic abnormalitiesidentified. Distance from Placental Tip to Cervix: Not measured, appears visuallyadequate Cervical Length: 5.1 cm Amniotic Fluid Index: [...] gestation 30 weeks, 0 days by LMP. Today'sultrasound measurements correlate with a gestational age of 30 weeks 4days. Interpreted by: Electronically signed by YULI MCCARTHY II, MD, PHD [id number] 07:13:14 PM [facility] us Flaquita Banuelos CNM IMG OB US PROCEDURES Final R esult * POCT glycosylated hemoglobin (Hb A1C) docked device (10/09/2024 3:49 PM EST) Hemoglobin A1C 5.7 Blood Venous blood specimen / Unknown 10/09/2024 3:49 PM EST Awilda Crenshaw DO POINT OF CARE TEST ENTER/E DIT ORDERABLES Final Result from Last 3 Months Insurance BCBS Care Teams Strawhat Sizer Relationship Specialty Start Date End Date Unallocated, [facility] Provider, [address] [place] [address] PCP - General 04/16/23 Flaquita Banuelos CNM [address] [place] [address] Obstetrics and Gynecology 02/10/23
--- OUTSIDE RECORDS SUMMARY | 2025-01-05 07:06 | XMS_ITS | Encounter Summary ---
Author Organization [facility] Address [address] [place] [address] Care Team Providers Care Director [employer] Name Role Phone Flaquita Banuelos CNM Unavailable [phone] Unallocated, [facility] Provider Primary Care Provi mart Encounter Details Date Type Department Care Team (Late st Contact Info) Description 01/01/2025 Bamboo flowsheet [facility] OB [address] [place] [address] Flaquita Banuelos, CNM [address] [place], [place] [address] Social History Tobacco Use Types Packs/Day Years [...] How often do you attend chur or catholic services? More than 4 times per year 06/07/2024 Do you belong to any clubs o r organizations such as confucianism groups, unions, fraternal or athletic groups, or [...] Recorded Patient Health Questionnaire-2 Score 0 12/07/2024 [facility] of Occupat ional Health - Occupational Stress [...] place to sleep or slept in a long term (including now)? No 04/09/2023 Housing Stability Vital [...] in the past 12 m [facility], were you homeless or living in a long term (including now)? No 06/07/2024 Estimated Date of [...] 4:00 PM EDT Routine [facility] OB [address] [place] [address] Flaquita Banuelos, CNM [address] [place] [address] 01/15/2025 4:30 PM EDT Routine [facility] OB [address] [place] [address] Flaquita Banuelos, CNM [address] [place] [address] 01/18/2025 8:30 AM EDT Office Visit [facility] FM [address] [place] [address] Awilda Crenshaw, DO [address] [place] [address] 01/22/2025 4:30 PM EDT Routine [facility] OB [address] [place] [address] Flaquita Banuelos, CNM [address] [place] [address] 01/29/2025 4:30 PM EDT Routine [facility] OB [address] [place] [address] Flaquita Banuelos, CN [address] [place] [address] 02/06/2025 4:30 PM EDT Routine [facility] OB [address] [place] [address] Flaquita Banuelos, CNM [address] [place] [address] 02/12/2025 4:30 PM EDT Routine [facility] OB [address] [place] [address] Flaquita Banuelos CNM [address] [place], [place] [phone] documented as of this encounter Visit Diagnoses Not on filedocumented in this encounter Care Teams Director [employer] Relationship Specialty Start Date End Date Unallocated, [facility] Provider, [address] [place] [address] PCP - General 04/16/23 Flaquita Banuelos CNM [address] [place] [address] Obstetrics and Gynecology 02/10/23 documented as of this encounter
--- OUTSIDE RECORDS SUMMARY | 2025-01-05 07:06 | XMS_ITS | Encounter Summary ---
Author Organization [facility] Address [address] [place] [address] Care Team Providers Care Coal Crusher Operator Name Role Phone Flaquita Banuelos CNM Unavailable [phone] Unallocated, Noms Provider Primary Care Provi mart Encounter Details Date Type Department Care Team (Latest Contact Info) Description 01/01/2025 Travel Social History Tobacco Use Types Packs/Day [...] Recorded Patient Health Questionnaire-2 Score 0 12/07/2024 [facility] of Occupat ional [facility] - Occupational Stress Questionnaire Answer Date [...] place to sleep or slept in a fdc (including now)? No 04/09/2023 Housing Stability Vital Sign Answer Raul e Recorded In the last 12 months, was t here a time when you were not able to pay the mortgage or rent on time? No 06/07/2024 In the past 12 months, how m any times have you moved where you were living? 0 06/07/2024 At any time in the past 12 m [facility], were you homeless or living in a fdc (including now)? No 06/07/2024 Estimated Date of [...] PM EDT Routine [facility] FNR OB [address] [place] [address] Flaquita Banuelos, CNM [address] [place] [address] 01/15/2025 4:30 PM EDT Routine [facility] OB [address] [facility] [place] [address] Flaquita Banuelos, CN [address] [place] [address] 01/18/2025 8:30 AM EDT Office Visit [facility] S[facility] FM [address] [place] [address] Awilda Crenshaw, DO [address] [place] [address] 01/22/2025 4:30 PM EDT Routine [facility] FNR OB [address] [facility] [place] [address] Flaquita Banuelos, [facility] [address] [place] [address] 01/29/2025 4:30 PM EDT Routine [facility]NR OB [address] [facility] [place] [address] Flaquita Banuelos, CN [address] [place] [address] 02/06/2025 4:30 PM EDT Routine [facility] FNR OB [address] [facility] [place] [address] Flaquita Banuelos, CN [address] [place] [address] 02/12/2025 4:30 PM EDT Routine [facility] FNR OB [address] [facility] [place] [address] Flaquita Banuelos, CN [address] [place] [address] documented as of this encounter Visit Diagnoses Not on filedocumented in this encounter Care Teams Coal Crusher Operator Relationship Specialty Start Date End Date Unallocated, Noms Provider, [place] [address] PCP - General 04/16/23 Flaquita Banuelos CNM [address] [place], [place] [phone] Obstetrics and Gynecology 02/10/23 documented as of this encounter
[2025-01-05 07:35] VITALS: BP 117/63; PULSE 85
== END 2025-01-05 09:03 | disposition home or self-care (01) ==
LOC: US 07:02 → FBC 07:04
PROVIDERS: Visit Provider Obstetrics & Gynecology
DX: O24.113 Pre-existing type 2 diabetes mellitus, in pregnancy, third trimester (principal); O24.419 Gestational diabetes mellitus in pregnancy, unspecified control
CPT/HCPCS: 76818

== ENCOUNTER 2025-01-09 06:58 | Outpatient (OUT) | payer BC, SELFPAY ==
--- OUTSIDE RECORDS SUMMARY | 2024-12-26 16:00 | XMS_ITS | Encounter Summary ---
Author Organization [facility] Address [address] [place] [address] Care Team Providers Care Director Of Institutional Giving Name Role Phone Flaquita Banuelos CN Unavailable [phone] Unallocated, [facility] Provider Primary Care [facility] Encounter Details Date Type Department Care Team (Latest Contact Info) Description 12/26/2024 4:00 PM EDT Routine [facility] [address] [place] [address] Flaquita Banuelos, CNM [address] [place], [place] [id number] with type 2 diabetes mellitus in third trimester (Primary Dx); Screening for iron deficiency anemia; 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 mellitus treated with insulin ([facility]) Social History Tobacco Use Types Packs/Day Years [...] How often do you attend chur or congregation services? More than 4 times per year 06/07/2024 Do you belong to any clubs o r organizations such as orthodoxy groups, unions, fraternal or athletic groups, or [...] Recorded Patient Health Questionnaire-2 Score 0 12/07/2024 [facility] [place] of Occupat ional Health - Occupational Stress Questionnaire Answer Date Recorded [...] place to sleep or slept in a retirement (including now)? No 04/09/2023 Housing Stability Vital Sign Answer Raul e Recorded In the last 12 months, was t here a time when you were not able to pay the mortgage or rent on time? No 06/07/2024 In the past 12 months, how m any times have you moved where you were living? 0 06/07/2024 At any time in the past 12 m [facility], were you homeless or living in a retirement (including now)? No 06/07/2024 Estimated Date of Delivery Comme nts Yes 02/19/2025 Based on Ultraso und Sex and Gender Information Value Date Recorded Sex Assigned at Female 02/08/2023 8:14 AM EDT Legal Sex Female 8:06 PM EDT Gender Identity Female 02/08/2023 8:14 AM EDT Sexual Orientation Not on file documented as of this encounter Last Filed Vital Signs Vital Sign Reading Time Taken Comments Blood Pressure 116/74 12/26/2024 4:02 PM EDT Pulse - - Temperature - - Respiratory Rate - - Oxygen Saturation - - Inhaled Oxygen Concentration - - Weight 108 kg (238 lb) 12/26/2024 4:02 PM EDT Height - - Body Mass Index 34.15 12/07/2024 8:17 AM EDT documented in this encounter Progress Notes * Flaquita Banuelos CNM - 12/26/2024 4:00 PM EDT Subjective No chief complaint on file. Kellie Reyes is a 29 y.o. at 32w1d with a working estimated date of delivery of 02/19/2025, by Ultrasound who presents for a routine visit. She denies vaginal bleeding, leakage of fluid, decreased movements, or contractions. OB History Para Term AB Living 1 0 0 0 0 0 SAB IAB Ectopic Multiple Live Births 0 0 0 0 0 # Outcome Date GA Lbr Giorgio/2nd Weight Sex Type Anes PTL Lv 1 Current Her is complicated by: type 2 diabetes, PCOS, h/o elevated triglycerides, Pt will do all nst's and bpp's at [place] per Dr Sam Objective Physical Exam Weight: 238 lb Expected Total Weight Gain: 11 lb-19 lb Pregravid BMI: 35.30 Urine protein-negative Urine glucose-negative Assessment/Plan Diagnoses and all orders for this visit: with type 2 diabetes mellitus in third trimester Screening for iron deficiency anemia - CBC; Future Continue vitamin. Labs reviewed. GBS at 36 weeks Expected mode of delivery Reactive NST today in office Follow up in 1 week for a routine visit. documented in this encounter Plan of Treatment Upcoming Encounters Date Type Department Care Team (Late st Contact Info) Description 01/09/2025 4:00 PM EDT Routine [facility] [address] [place] [phone] Flaquita Banuelos CNM [address] [place], [place] [id number] 01/15/2025 4:30 PM EDT Routine [facility] OB [address] [facility] [address] Flaquita Banuelos, CN [address] [place] [address] 01/18/2025 8:30 AM EDT Office Visit [facility] [address] [place] [address] Awilda Crenshaw, DO [address] [place] [address] 01/22/2025 4:30 PM EDT Routine [facility] [address] [facility] [address] Flaquita Banuelos, CN [address] [place] [address] 01/29/2025 4:30 PM EDT Routine [facility] [address] [facility] [address] Flaquita Banuelos, CN [address] [place] [address] 02/06/2025 4:30 PM EDT Routine [facility] [address] [facility] [place] [address] Flaquita Banuelos, CN [address] [place] [address] 02/12/2025 4:30 PM EDT Routine [facility] [address] [facility] [address] Flaquita Banuelos, CNM [address] [place] [address] documented as of this encounter Procedures Procedure Name Priority Date/Time Associated Diagnosis Comments CBC Routine 12/26/2024 4:19 PM EDT Screening for iron deficiency anemia documented in this encounter Results * (ABNORMAL) CBC (12/26/2024 4:19 PM EDT) WHITE BLOOD CELL COUNT 10.1 3.8 - 10.8 Thousand/u L [facility] RED BLOOD CELL COUNT 3.74(L) 3.80 - 5.10 Million/uL [facility] HEMOGLOBIN 10.7(L) 11.7 - 15.5 g/dL [facility] HEMATOCRIT 32.9(L) 35.0 - 45.0 % [facility] MCV 88.0 80.0 - 100.0 fL [facility] MCH 28.6 27.0 - 33.0 pg [facility] MCHC 32.5 32.0 - 36.0 g/dL [facility] Comment: For adults, a slight decrease in the calculated MCHC value (in the range of 30 to 32 g/dL) is most likely not clinically significant; however, it should be interpreted with caution in correlation with other red cell parameters and the patient's clinical condition. RDW 12.8 11.0 - 15.0 % [facility] PLATELET COUNT 362 140 - 400 Thousand/u L [facility] MPV 9.9 7.5 - 12.5 fL [facility] Blood Venous blood specimen / Unknown 12/26/2024 4:19 PM EDT 12/26/2024 4:20 PM EDT Narrative Resulting Agency Comment Performing Organization Information Site ID: QPT Name: [facility] Address: [address] [place] [address], [address] [place] [id number] Director: Devendra Aguilar MD us Flaquita Banuelos CNM LAB BLOOD ORDERABLES Final R esult [facility] documented in this encounter Visit Diagnoses Diagnosis with type 2 diabetes mellitus in third trimester- Primary Screening for iron deficiency anemia 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 mellitus treated with insulin (CMS/HCC) documented in this encounter Care Teams Director Of Institutional Giving Relationship Specialty Start Date End Date Unallocated, Noms Provider, [address] [place], [place] [address] [address] PCP - General 04/16/23 Flaquita Banuelos CNM [address] [place] [address] Obstetrics and Gynecology 02/10/23 documented as of this encounter
--- OUTSIDE RECORDS SUMMARY | 2025-01-01 16:30 | XMS_ITS | Encounter Summary ---
Author Organization [facility] Address [address] [place] [address] Care Team Providers Care Instructor Psychiatric Aide Name Role Phone Flaquita Banuelos CN Unavailable [phone] Unallocated, Noms Provider Primary Care Provi mart Encounter Details Date Type Department Care Team (Latest Contact Info) Description 01/01/2025 4:30 PM EDT Routine [facility] [address] [place] [address] Flaquita Banuelos, CNM [address] [place], [place] [id number] Screening for iron deficiency anemia (Primary Dx); Dysuria Social History Tobacco Use Types Packs/Day Years [...] How often do you attend chur or anabaptist services? More than 4 times per year 06/07/2024 Do you belong to any clubs o r organizations such as roman catholic groups, unions, fraternal or athletic groups, or [...] Recorded Patient Health Questionnaire-2 Score 0 12/07/2024 [facility] [place] of Occupat ional Health - Occupational Stress [...] place to sleep or slept in a intermediate (including now)? No 04/09/2023 Housing Stability Vital Sign Answer Raul e Recorded In the last 12 months, was t here a time when you were not able to pay the mortgage or rent on time? No 06/07/2024 In the past 12 months, how m any times have you moved where you were living? 0 06/07/2024 At any time in the past 12 m [facility], were you homeless or living in a intermediate (including now)? No 06/07/2024 Estimated Date of [...] Sign Reading Time Taken Comments Blood Pressure 120/72 01/01/2025 4:33 PM EDT Pulse - - Temperature - - Respiratory Rate - - Oxygen Saturation - - Inhaled Oxygen Concentration - - Weight 108 kg (239 lb) 01/01/2025 4:33 PM EDT Height - - Body Mass Index 34.29 12/07/2024 8:17 AM EDT documented in this encounter Plan of Treatment Upcoming Encounters Date Type Department Care Team (Late st Contact Info) Description 01/09/2025 4:00 PM EDT Routine [facility] [address] [facility] [place] [address] Flaquita Banuelos, [address] [place] [address] 01/15/2025 4:30 PM EDT Routine [facility] [address] [facility] [place] [address] Flaquita Banuelos, [place] [address] [place] [address] 01/18/2025 8:30 AM EDT Office Visit [facility] [address] [place] [address] [phone] Awilda Crenshaw, DO [address] [place] [address] 01/22/2025 4:30 PM EDT Routine [facility] [address] [facility] [place] [address] Flaquita Banuelos, [facility] [address] [place] [address] 01/29/2025 4:30 PM EDT Routine [facility] [address] [facility] [place] [address] Flaquita Banuelos, [facility] [address] [place] [address] 02/06/2025 4:30 PM EDT Routine [facility] [address] [place] [address] [phone] Flaquita Banuelos, SADIA [address] [place] [address] 02/12/2025 4:30 PM EDT Routine [facility] [address] [facility] [place] [address] Flaquita Banuelos CNM [address] [place] [address] documented as of this encounter Procedures Procedure Name Priority Date/Time Associated Diagnosis Comments CULTURE, URINE, ROUTINE Routine 01/01/2025 5:00 PM EDT Dysuria documented in this encounter Results * Urine culture (01/01/2025 5:00 PM EDT) MICRO NUMBER [id number] [facility] SPECIMEN QUALITY Adequate [facility] SOURCE: (QUEST) URINE [facility] STATUS FINAL [facility] RESULT SEE NOTE [facility] Comment: Less than 10,000 CFU/mL of single Gram positive organism isolated. No further testing will be performed. If clinically indicated, recollection using a method to minimize contamination, with prompt transfer to Urine Culture Transport Tube, is recommended. Urine Urine specimen obtained by clean catch procedure / Unknown 01/01/2025 5:00 PM EDT 01/02/2025 3:42 PM EDT Narrative Resulting Agency Comment Performing Organization Information Site ID: QPT Name: [facility] Address: [address] [place] [address], [address] [place] [id number] Director: Devendra Aguilar MD us Flaquita Banuelos CNM LAB MICROBIOLOGY - GENERAL O RDERABLES Final Result [facility] documented in this encounter Visit Diagnoses Diagnosis Screening for iron deficiency anemia- Primary Dysuria documented in this encounter Care Teams Instructor Psychiatric Aide Relationship Specialty Start Date End Date Unallocated, Noms MD Dian [address] [place] [address] PCP - General 04/16/23 Flaquita Banuelos CNM [address] [place] [address] Obstetrics and Gynecology 02/10/23 documented as of this encounter
--- OUTSIDE RECORDS SUMMARY | 2025-01-01 16:33 | XMS_ITS ---
Author Name Auto Generated Organization OHIP Support Name Relationship Address Phone KAROL SMALL Next of Kin Unknown [phone] TALITA SMALLINGTON Next of Kin Unknown [phone] KAROL SMALL Next of Kin Unknown [phone] KAROL SMALL Next of Kin Unknown [phone] KAROL SMALL Next of Kin Unknown [phone] KAROL SMALL Next of Kin Unknown [phone] KAROL SMALL Next of Kin Unknown [phone] KAROL SMALL Next of Kin Unknown Unavailable KAROL SMALL Next of Kin Unknown Unavailable TALITA SMALLINGTON Next of Kin Unknown [phone] KAROL SMALL Next of Kin Unknown Unavailable KAROL SMALL Next of Kin Unknown [phone] KAROL SMALL Next of Kin Unknown Unavailable KAROL SMALL Next of Kin Unknown [phone] REYNALDO MARTINEZ Next of Kin Unknown Unavailable REYNALDO MARTINEZ Next of Kin Unknown Unavailable NOT GIVEN Next [place] [facility] [place] [address] [phone] KAROL SMALL Next of Kin Unknown Unavailable REYNALDO MARTINEZ Next of Kin Unknown Unavailable REYNALDO MARTINEZ Next of Kin Unknown Unavailable [place] [address] [phone] KAROL SMALL Next of Kin Unknown Unavailable KAROL SMALL Next of Kin Unknown [phone] REYNALDO MARTINEZ Next of Kin Unknown Unavailable REYNALDO MARTINEZ Next of Kin Unknown Unavailable NOT GIVEN [facility] [address] [phone] KAROL SMALL Next of Kin Unknown Unavailable NOT GIVEN Next of [place] [facility] [place] [address] +[phone] KAROL SMALL Next of Kin Unknown Unavailable [place] [address] [phone] KAROL SMALL Next of Kin Unknown Unavailable TAYLOR MARTINEZE Next of Kin Unknown Unavailable MARTINEZAUGUSTREYNALDO Next of Kin Unknown Unavailable [place] [address] [phone] KAROL SMALL Next of Kin Unknown Unavailable TAYLOR MARTINEZE Next of Kin Unknown Unavailable MARTINEZ, REYNALDO Next of Kin Unknown Unavailable [place] [address] [phone] KAROL SMALL Next of Kin Unknown Unavailable KAROL SMALL Next of Kin Unknown [phone] KAROL SMALL Next of Kin Unknown [phone] KAROL SMALL Next of Kin Unknown [phone] KAROL SMALL Next of Kin Unknown [phone] KAROL SMALL Next of Kin Unknown [phone] Care Team Providers Care Grinder Hand Name Role Phone YENY NANCEERIE L Attending Unavailable PETZNICK, THA M Attending Unavailable FLORO, DARÍO L Attending Unavailable FLORO, DARÍO L Attending Unavailable PETZNICK, THA M Attending Unavailable FLORO, DARÍO L Attending Unavailable PETZNICK, THA M Attending Unavailable PETZNICK, THA M Attending Unavailable FLORO, DARÍO L Referring Unavailable FLORO, DARÍO L Attending Unavailable FLORO, DARÍO L Referring Unavailable ANDRÉSJUANAY Attending Unavailable FLORO, DARÍO L Referring Unavailable FLORO, DARÍO L Attending Unavailable FLORO, DARÍO L Attending Unavailable FLORO, DARÍO L Attending Unavailable PETZNICK, THA M Attending Unavailable PETZNICK, THA M Referring Unavailable LAVOY, ALIRIO E Attending Unavailable FLORO, DARÍO Referring Unavailable DENISHASERGEY Attending Unavailable FLORO, DARÍO Referring Unavailable LAVOY, ALIRIO E Attending Unavailable FLORO, ADRÍO Referring Unavailable FLORO, DARÍO Primary Care Unavailable SERGEY DENNY Attending Unavailable FLORO, DARÍO Referring Unavailable FLORO, DARÍO Primary Care Unavailable ARIELLA ROBERTO Attending Unavailable FLORO, DARÍO Referring Unavailable FLORO, DARÍO Primary Care Unavailable RIAN, CLARKE Attending Unavailable FLORO, DARÍO Referring Unavailable FLORO, DARÍO Primary Care Unavailable AYE SAUCEDO Attending Unavailable ALIRIO PACK Referring Unavailable FLORO, DARÍO Primary Care Unavailable FLORO, DARÍO Referring Unavailable FLORO, DARÍO Primary Care Unavailable RIAN, CLARKE Attending Unavailable FLORO, DARÍO Referring Unavailable FLORO, DARÍO Primary Care Unavailable FLORO, DARÍO Referring Unavailable FLORO, DARÍO Primary Care Unavailable KAYLAN, TRICIA Attending Unavailable AYE SAUCEDO Referring Unavailable FLORO, DARÍO Primary Care Unavailable PROBLEMS DATE TYPE CONDITION / CODE ATTENDING STATUS [facility] 10/31/2024 Unknown Encounter for ot her screening follow-up / Z36.2(ICD-10) [facility] 08/14/2024 Unknown Pre-existing typ e 2 diabetes mellitus, in , second trimester / O24.112(ICD-10) NA [facility] 09/19/2024 Unknown New Patient / FREETEXT(AOF) AYE SAUCEDO [facility] 07/25/2024 Unknown 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 mellitus without complications / E11.9(ICD-10) ARIELLA ROBERTO [facility] 08/14/2024 Unknown Pre-existing typ e 2 diabetes mellitus, in , first trimester / O24.111(ICD-10) SERGEY DENNY [facility] 12/29/2016 Unknown Long QT syndrome / I45.81(ICD-10) ALIRIO PACK E [facility] 08/14/2024 Unknown T2DM / UNK(Unknown) ALIRIO PACK E Ac tive [facility] PROCEDURES No Procedure Records Found RESULTS US OB FOLLOW UP TRANSABDOMINAL APPROACH Observed: 12/11/2024 4:08 PM Status: F Source: [facility] EPIC EXAM: US OB FOLLOW UP TRANSA BDOMINAL APPROACH HISTORY: Morbid obesity. DAVY 02/19/2025. COMPARISON: [...] II, MD, PHD at 12-Dec-2024 07:13:14 PM [facility] US OB < 14 WEEKS EARLY Observed: 024 5:55 PM Status: F Source: [facility] TITLE OF EXAM: OB Ultrasound : REASON FOR EXAM: Viability. TECHNIQUE: Grayscale imaging [...] signed and approved by the interpreting radiologist. ALLERGIES DATE TYPE / CODE NAME / CODE REACTION SEVERITY SOURCE Drug Class/[id number](SNO MED CT) NO KNOWN ALLERGIES [facility] ENCOUNTERS ADMIT/DISCHARGE ACCOUNT NUMBER ADMITTING ENCOUNTER CLASS LOCATION SOURCE 01/01/2025/01/02/20 [id number] Ambulatory Building:NOM S FNR OB [facility] 12/26/2024/12/27/19 25 [id number] Ambulatory Building:NOM S FNR OB [facility] 12/25/2024/12/26/19 25 [id number] Ambulatory Building:NOM S BCP OB [facility] 12/11/2024/12/12/19 25 [id number] Ambulatory Building:NOM SFNRUS [facility] 12/11/2024/12/12/19 25 [id number] Ambulatory Building:NOM S FNR OB [facility] 12/07/2024/12/08/19 25 [id number] Ambulatory Building:NOM S [facility] 11/15/2024/11/16/19 25 [id number] Ambulatory Building:NOM S FNR OB [facility] 11/08/2024/11/09/19 25 [id number] Ambulatory Buildin 4 [facility] 10/31/2024/11/01/19 25 [id number] Ambulatory Building:[facility] 10/18/2024/10/19/19 25 [id number] Ambulatory Building:NOM S FNR OB [facility] 10/10/2024/10/10/19 25 [id number] Ambulatory Buildin 4 [facility] 10/09/2024/10/09/19 25 [id number] Ambulatory Building:NOM S [facility] 10/03/2024/10/03/19 25 [id number] Ambulatory Building:[facility] 09/28/2024/09/28/19 25 [id number] Ambulatory Building:NOM S FNR OB [facility] 09/19/2024/09/19/19 25 [id number] Ambulatory Buildin 4 [facility] 09/11/2024/09/11/19 25 [id number] Ambulatory Buildin 4 [facility] 09/01/2024/01 [id number] [facility] 08/23/2024/08/23/19 [id number] Ambulatory Buildin 4 [facility] 08/14/2024 [id number] Ambulatory Buildin 9 4 [facility] 08/14/2024 [id number] Ambulatory Buildin 9 4 [facility] 08/14/2024/08/14/20 24 [id number] Ambulatory Buildin 4 [facility] 08/14/2024/08/14/20 24 [id number] Ambulatory Buildin 4 [facility] 08/03/2024/08/03/20 24 [id number] Ambulatory Building:NOM S FNR OB [facility] EPIC 07/10/2024/07/10/20 24 [id number] Ambulatory Building:NOM S FNR OB [facility] EPIC 07/03/2024/07/03/20 24 [id number] Ambulatory Building:NOM SFNRUS [facility] EPIC 06/08/2024/06/08/20 24 [id number] Ambulatory Building:NOM S FAMMED [facility] EPIC 02/28/2024/02/28/20 24 [id number] Ambulatory Building:NOM S [facility] EPIC PAYERS ENCOUNTER GUARANTOR PAYER SUBSCRIBER SOURCE 01/01/2025 REGINALD JUSTICEB: [address] [address]Zuk: () Primary Insurance:BCBSPo licy Number: [id number] ctive Date:2019-02-13 REGINALD JUSTICEB: [id number] [address] [address] [facility] EPIC 12/26/2024 REGINALD DE LEÓN: [address] [address]Jbn: () Primary Insurance:BCBSPo licy Number: [id number] ctive Date:2019-02-13 REGINALD DE LEÓN: [id number] N STATE [address] [place] [address] [facility] EPIC 12/25/2024 REGINALD JUSTICEB: [place] [id number]: (HP) Primary Insurance:BCBSPo licy Number: [id number] ctive Date:2019-02-13 REGINALD JUSTICEB: [id number], [facility] [facility] EPIC 12/11/2024 REGINALD JUSTICEB: [address] [place] [phone]: (HP) Primary Insurance:BCBSPo licy Number: [id number] ctive Date:2019-02-13 REGINALD JUSTICEB: [id number] N [place] [phone] [facility] EPIC 12/11/2024 REGINALD JUSTICEB: [address] [address]Xdg: (HP) Primary Insurance:BCBSPo licy Number: [id number] ctive Date:2019-02-13 REGINALD JUSTICEB: [id number] [address] [place] [phone] [facility] EPIC 12/07/2024 REGINALD JUSTICEB: [address], [facility]Ull: (HP) Primary Insurance:BCBSPo licy Number: [id number] ctive Date:2019-02-13 REGINALD JUSTICEB: [id number] [address] [facility] EPIC 11/15/2024 REGINALD JUSTICEB: [address] [place] [phone]: (HP) Primary Insurance:BCBSPo licy Number: [id number] ctive Date:2019-02-13 REGINALD JUSTICEB: [id number] [address] [address] [facility] 11/08/2024 REGINALD JUSTICEB: N [address] [address]Acu: (HP) Primary Insurance:BCBS OUT OF STATE PPO/TRUSTPolicy Number: [id number] ctive Date:2019-02-13 REGINALD JUSTICEB: [id number] [address]Jlr: () [facility] 10/31/2024 REGINALD JUSTICEB: N [address] [address]Ctd: (HP) Primary Insurance:BCBS OUT OF STATE PPO/TRUSTPolicy Number: [id number] ctive Date:2019-02-13 REGINALD JUSTICEB: [id number] [address] [address]Isj: (HP) [facility] 10/18/2024 REGINALD JUSTICEB: N [address] [address]Fas: (HP) Primary Insurance:BCBSPo licy Number: [id number] ctive Date:2019-02-13 REGINALD DE LEÓN: [id number] [address] [address] [facility] 10/10/2024 REGINALD JUSTICEB: N [address] [address]Rkt: (HP) Primary Insurance:BCBS OUT OF STATE PPO/TRUSTPolicy Number: [id number] ctive Date:2019-02-13 REGINALD JUSTICEB: [id number] [address] [address]Vrh: (HP) [facility] 10/09/2024 REGINALD JUSTICEB: N [address] [address]Kzy: (HP) Primary Insurance:BCBSPo licy Number: [id number] ctive Date:2019-02-13 REGINALD JUSTICEB: [id number] [address] [address] [facility] EPIC 10/03/2024 REGINALD JUSTICEB: N [address] [address]Hgt: () Primary Insurance:BCBS OUT OF STATE PPO/TRUSTPolicy Number: [id number] ctive Date:2019-02-13 REGINALD JUSTICEB: [id number] [address]Axg: (HP) [facility] 09/28/2024 REGINALD JUSTICEB: [address] [address]Smk: (HP) Primary Insurance:BCBSPo licy Number: [id number] ctive Date:2019-02-13 REGINALD JUSTICEB: [id number] [address] [facility] EPIC 09/19/2024 REGINALD JUSTICEB: N [address] [address]Xpe: (HP) Primary Insurance:BCBS OUT OF STATE PPO/TRUSTPolicy Number: [id number] ctive Date:2019-02-13 REGINALD JUSTICEB: [id number] [address], [place] [address]Ovd: (HP) [facility] 09/11/2024 REGINALD JUSTICEB: [address] [place] [address], [place] [address]Uoe: (HP) Primary Insurance:BCBS OUT OF STATE PPO/TRUSTPolicy Number: [id number] ctive Date:2019-02-13 REGINALD JUSTICEB: [id number], [place] [address]Ygm: (HP) [facility] 09/01/2024 REGINALD JUSTICEB: N [address] [place] [address]Nhw: (HP) Primary Insurance:BCBSPo licy Number: [id number] ctive Date:2019-02-13 REGINALD JUSTICEB: [id number] [address] [place] [address] [facility] 08/23/2024 REGINALD JUSTICEB: [address], [place] [address]Awx: (HP) Primary Insurance:BCBS OUT OF STATE PPO/TRUSTPolicy Number: [id number] ctive Date:2019-02-13 REGINALD JUSTICEB: [id number] [address] [place] [address], [place] [address]Rot: (HP) [facility] 08/14/2024 REGINALD JUSTICEB: [address], [place] [address]Nar: (HP) Primary Insurance:BCBS OUT OF STATE PPO/TRUSTPolicy Number: [id number] ctive Date:2019-02-13 REGINALD JUSTICEB: [id number] [address] [place] [address], [place] [address]Shu: (HP) [facility] 08/14/2024 REGINALD JUSTICEB: [address], [place] [address]Tgx: (HP) Primary Insurance:BCBS OUT OF STATE [facility] Number: [id number] ctive Date:2019-02-13 REGINALD JUSTICEB: [id number], [place] [address]Uqf: (HP) [facility] 08/14/2024 REGINALD JUSTICEB: [address], [place] [address]Cmh: (HP) Primary Insurance:BCBS OUT OF STATE [facility]/TRUSTPolicy Number: [id number] ctive Date:2019-02-13 REGINALD JUSTICEB: [id number] [address], [place] [address]Vca: (HP) [facility] 08/14/2024 REGINALD JUSTICEB: [address], [place] [address]Ucn: (HP) Primary Insurance:BCBS OUT OF STATE [facility]/TRUSTPolicy Number: [id number] ctive Date:2019-02-13 REGINALD JUSTICEB: [id number] N [address], [place] [address]Dml: (HP) [facility] 08/03/2024 REGINALD JUSTICEB: [address] [place] [address]Syq: (HP) Primary Insurance:BCBS licy Number: [id number] ctive Date:2019-02-13 REGINALD JUSTICEB: [id number] [address] [place] [id number] [facility] EPIC 07/10/2024 REGINALD JUSTICEB: [address] [place] [phone]: (HP) Primary Insurance:BCBSPo licy Number: [id number] ctive Date:2019-02-13 REGINALD JUSTICEB: [id number] [address] [place] [phone] [facility] EPIC 07/03/2024 REGINALD JUSTICEB: [place] [address]Tel: (HP) Primary Insurance:BCBSPo licy Number: [id number] ctive Date:2019-02-13 REGINALD JUSTICEB: [id number] [address] [place] [id number] [facility] EPIC 06/08/2024 REGINALD JUSTICEB: [place] [id number]: (HP) Primary Insurance:BCBSPo licy Number: [id number] ctive Date:2019-02-13 REGINALD JUSTICEB: [id number] [address] [place] [id number] [facility] EPIC 02/28/2024 REGINALD JUSTICEB: [place] [id number]: (HP) Primary Insurance:BCBSPo licy Number: [id number] ctive Date:2019-02-13 REGINALD JUSTICEB: [id number] [address] [facility] EPIC
--- OUTSIDE RECORDS SUMMARY | 2025-01-09 07:00 | XMS_ITS | Encounter Summary ---
Author Organization [facility] Address [address] [place] [address] Care Team Providers Care Bridge Welder Name Role Phone Flaquita Banuelos CNM Unavailable Unallocated, Noms Provider Primary Care Provi mart Awilda Crenshaw DO Unavailable [phone] Encounter Details Date Type Department Care Team (Late st Contact Info) Description 11/03/2024 [facility] [address] [place] [address] Awilda Crenshaw, DO [address] [facility] [address] [place] [address] Social History Tobacco Use Types Packs/Day Years [...] How often do you attend chur or hindu services? More than 4 times per year 06/07/2024 Do you belong to any clubs o r organizations such as pentecostalism groups, unions, fraternal or athletic groups, or [...] Recorded Patient Health Questionnaire-2 Score 0 10/09/2024 [facility] [place] of Occupat ional Health - Occupational Stress [...] OB [address] [place] [address] Flaquita Banuelos, CNM [address] [facility] [place] [address] 01/15/2025 4:30 PM EDT Routine [facility] FNR OB [address] [place] [address] Flaquita Banuelos, CNM [address] [facility] [place] [address] 01/18/2025 8:30 AM EDT Office Visit [facility] SWS FM [address] [place] [address] Awilda Crenshaw, DO [address] [place] [address] 01/22/2025 4:30 PM EDT Routine [facility] FNR OB [address] [place] [address] Flaquita Banuelos, CNM [address] [facility] [place] [address] 01/29/2025 4:30 PM EDT Routine [facility] FNR OB [address] [place] [address] Flaquita Banuelos, CN [address] [facility] [place] [address] 02/06/2025 4:30 PM EDT Routine [facility] FNR OB [address] [place] [address] Flaquita Banuelos, CNM [address] [facility] [place] [address] 02/12/2025 4:30 PM EDT Routine [facility] FNR OB [address] [place] [address] Flaquita Banuelos CNM [address] [place] [address] documented as of this encounter Visit Diagnoses Not on filedocumented in this encounter Care Teams Bridge Welder Relationship Specialty Start Date End Date Unallocated, Noms Provider, [address] [place] [address] PCP - General 04/16/23 Awilda Crenshaw DO [address] [address] PCP - [employer] 06/16/23 Flaquita Banuelos CNM [address] [place] [address] Obstetrics and Gynecology 02/10/23 documented as of this encounter
--- OUTSIDE RECORDS SUMMARY | 2025-01-09 07:00 | XMS_ITS | Encounter Summary ---
Author Organization [facility] Address [address] [place] [address] Care Team Providers Care Microsoft Infrastructure Consultant Name Role Phone Flaquita Banuelos CNM Unavailable [phone] Unallocated, Noms Provider Primary Care Provi mart Awilda Crenshaw DO Unavailable [phone] Encounter Details Date Type Department Care Team (Late st Contact Info) Description 10/20/2024 Abstract N[facility] [address] [place] [address] Awilda Crenshaw, DO [address] [facility] 230 [place] [address] Social History Tobacco Use Types Packs/Day Years [...] How often do you attend chur or sabianism services? More than 4 times per year 06/07/2024 Do you belong to any clubs o r organizations such as buddhist groups, unions, fraternal or athletic groups, or [...] Recorded Patient Health Questionnaire-2 Score 0 10/09/2024 [facility] of Occupat ional Health - Occupational Stress [...] place to sleep or slept in a [place] (including now)? No 04/09/2023 Housing Stability Vital [...] were you homeless or living in a [place] facility (including now)? No 06/07/2024 Estimated Date of [...] OB [address] [place] [address] Flaquita Banuelos, CNM [address] [place] [address] 01/15/2025 4:30 PM EDT Routine [facility] FNR OB [address] [place] [address] Flaquita Banuelos, CNM [address] [place] [address] 01/18/2025 8:30 AM EDT Office Visit [facility] S[facility] FM [address] [place] [address] Awilda Crenshaw, DO [address] [place] [address] 01/22/2025 4:30 PM EDT Routine [facility] FNR OB [address] [place] [address] Flaquita Banuelos, CNM [address] [place] [address] 01/29/2025 4:30 PM EDT Routine [facility] FNR OB [address] [place] [address] Flaquita Banuelos, CN [address] [place] [address] 02/06/2025 4:30 PM EDT Routine [facility] FNR OB [address] [place] [address] Flaquita Banuelos, CNM [address] [place] [address] 02/12/2025 4:30 PM EDT Routine [facility] FNR OB [address] [place] [address] Flaquita Banuelos CNM [address] [place] [address] documented as of this encounter Visit Diagnoses Not on filedocumented in this encounter Care Teams Microsoft Infrastructure Consultant Relationship Specialty Start Date End Date Unallocated, Noms Provider, [address] [place] [address] PCP - General 04/16/23 Awilda Crenshaw DO [address] [address] PCP - [place] [employer] 06/16/23 Flaquita Banuelos CNM [address] [place] [address] Obstetrics and Gynecology 02/10/23 documented as of this encounter
--- OUTSIDE RECORDS SUMMARY | 2025-01-09 07:01 | XMS_ITS | Encounter Summary ---
Author Organization [facility] Address [address] [place] [address] Care Team Providers Care Outreach Nurse Name Role Phone Vin Flaquita Mccoy CNM Unavailable [phone] Unallocated, Noms Provider Primary Care Provi mart Reason for Visit * Reason Onset Date Comments Med Refill 12/27/2024 Encounter Details Date Type Department Care Team (Late st Contact Info) Description 12/27/2024 Refill [facility] FNR OB [address] [place] [address] Abby Saul MA Anemia during [...] How often do you attend chur or shinto services? More than 4 times per year 06/07/2024 Do you belong to any clubs o r organizations such as jewish groups, unions, fraternal or athletic groups, or [...] Recorded Patient Health Questionnaire-2 Score 0 12/07/2024 [facility] of Occupat ional Health - Occupational Stress [...] time in the past 12 m [facility], were you homeless or living in [...] PM EDT Routine [facility] FNR OB [address] [place] [address] Flaquita Banuelos, CNM [address] [facility] [address] 01/15/2025 4:30 PM EDT Routine [facility] FNR OB [address] [facility] [place] [address] Flaquita Banuelos, CNM [address] [facility] [address] 01/18/2025 8:30 AM EDT Office Visit [facility] SWS FM [address] [place] [address] Awilda Crenshaw, DO [address] [place] [address] 01/22/2025 4:30 PM EDT Routine [facility] FNR OB [address] [facility] [place] [address] Flaquita Banuelos, CNM [address] [facility] [address] 01/29/2025 4:30 PM EDT Routine [facility] FNR OB [address] [facility] [place] [address] Flaquita Banuelos, CNM [address] [facility] [address] 02/06/2025 4:30 PM EDT Routine [facility] FNR OB [address] [facility] [place] [address] Flaquita Banuelos, CNM [address] [place] [address] 02/12/2025 4:30 PM EDT Routine [facility] FNR OB [address] [facility] [place] [address] Flaquita Banuelos, CNM [address] [place], [place] [address] documented as of this encounter Visit Diagnoses Diagnosis Anemia during in third trimester documented in this encounter Care Teams Outreach Nurse Relationship Specialty Start Date End Date Unallocated, Noms Provider, [address] [place] [address] PCP - General 04/16/23 Flaquita Banuelos CNM [address] [place], [place] [address] Obstetrics and Gynecology 02/10/23 documented as of this encounter
--- OUTSIDE RECORDS SUMMARY | 2025-01-09 07:01 | XMS_ITS | Encounter Summary ---
Author Organization [facility] Address [address] [place] [address] Care Team Providers Care Draw Frame Tender Name Role Phone Flaquita Banuelos CNM Unavailable [phone] Unallocated, Noms Provider Primary Care Provi mart Encounter Details Date Type Department Care Team (Late st Contact Info) Description 12/07/2024 [facility] [address] [place] [address] Unallocated, Noms Provider, [address] [place], [place] [address] Social History Tobacco Use Types Packs/Day Years [...] How often do you attend chur or faith services? More than 4 times per year 06/07/2024 Do you belong to any clubs o r organizations such as scientologist groups, unions, fraternal or athletic groups, or [...] Recorded Patient Health Questionnaire-2 Score 0 12/07/2024 [facility] of Occupat ional Health - [...] PM EDT Routine [facility] FNR OB [address] [place] [address] Flaquita Banuelos, CN [address] [place] [address] 01/15/2025 4:30 PM EDT Routine [facility] FNR OB [address] [place] [address] Flaquita Banuelos, [facility] [place] [address] 01/18/2025 8:30 AM EDT Office Visit [facility] SWS FM [address] [place] [address] Awilda Crenshaw, DO [address] [place] [address] 01/22/2025 4:30 PM EDT Routine [facility] FNR OB [address] [place] [address] Flaquita Banuelos, CN [address] [place] [address] 01/29/2025 4:30 PM EDT Routine [facility] FNR OB [address] [place] [address] Flaquita Banuelos, [facility] [address] [place] [address] 02/06/2025 4:30 PM EDT Routine [facility] FNR OB [address] [place] [address] Flaquita Banuelos, SADIA [address] [place] [address] 02/12/2025 4:30 PM EDT Routine [facility] FNR OB [address] [place] [address] Flaquita Banuelos, CNM [address] [place] [address] documented as of this encounter Visit Diagnoses Not on filedocumented in this encounter Care Teams Draw Frame Tender Relationship Specialty Start Date End Date Unallocated, Noms Provider, [address] [place] [address] PCP - General 04/16/23 Flaquita Banuelos CNM [address] [place] [phone] Obstetrics and Gynecology 02/10/23 documented as of this encounter
--- OUTSIDE RECORDS SUMMARY | 2025-01-09 07:01 | XMS_ITS | Encounter Summary ---
Author Organization [facility] Address [address] [place] [address] Care Team Providers Care Road Production General Manager Name Role Phone Flaquita Banuelos CNM Unavailable [phone] Unallocated, Noms Provider Primary Care Provi mart Awilda Crenshaw DO Unavailable [phone] Encounter Details Date Type Department Care Team (Late st Contact Info) Description 04/16/2023 Abstract [facility] SWS FM [address] [facility] 230 [place] [address] Awilda Crenshaw, [address] [facility] 230 [place] [address] Social History Tobacco Use Types Packs/Day Years [...] How often do you attend chur or christianity services? More than 4 times per year [...] Recorded Patient Health Questionnaire-2 Score 0 04/16/2023 [facility] of Occupat ional Health [...] a skilled nursing (including now)? No 04/09/2023 Comments No Sex [...] PM EDT Routine [facility] FNR OB [address] [facility] [place] [address] Flaquita Banuelos, CNM [address] [place] [address] 01/15/2025 4:30 PM EDT Routine [facility] FNR OB [address] [facility] [place] [address] Flaquita Banuelos, CNM [address] [place] [address] 01/18/2025 8:30 AM EDT Office Visit [facility] SWS FM [address] [place] [address] Awilda Crenshaw, DO [address] [place] [address] 01/22/2025 4:30 PM EDT Routine [facility] FNR OB [address] [facility] [place] [address] Flaquita Banuelos, CN [address] [place] [address] 01/29/2025 4:30 PM EDT Routine [facility] FNR OB [address] [facility] [place] [address] Flaquita Banuelos, CN [address] [place] [address] 02/06/2025 4:30 PM EDT Routine [facility] FNR OB [address] [facility] [place] [address] Flaquita Banuelos, CN [address] [place] [address] 02/12/2025 4:30 PM EDT Routine [facility] FNR OB [address] [place] [address] Flaquita Banuelos CNM [address] [place] [address] documented as of this encounter Visit Diagnoses Not on filedocumented in this encounter Care Teams Road Production General Manager Relationship Specialty Start Date End Date Unallocated, Noms Provider, [address] [place] [address] PCP - General 04/16/23 Awilda Crenshaw DO [address] [facility] 230 [place] [address] PCP - [place] [employer] 06/16/23 Flaquita Banuelos CNM [address] [place] [address] Obstetrics and Gynecology 02/10/23 documented as of this encounter
--- OUTSIDE RECORDS SUMMARY | 2025-01-09 07:01 | XMS_ITS | Encounter Summary ---
Author Organization [facility] Address [address] [place] [address] Care Team Providers Care Flosser Name Role Phone Flaquita Banuelos CNM Unavailable [phone] Unallocated, Noms Provider Primary Care Provi mart Awilda Crenshaw DO Unavailable [phone] Encounter Details Date Type Department Care Team (Late st Contact Info) Description 10/06/2024 Abstract N[facility]S [facility] [address] [place] [address] Awilda Crenshaw, DO [address] [facility] 230 [place] [address] Social History Tobacco Use Types Packs/Day Years [...] How often do you attend chur or rastafari services? More than 4 times per year 06/07/2024 Do you belong to any clubs o r organizations such as taoism groups, unions, fraternal or athletic groups, or [...] Recorded Patient Health Questionnaire-2 Score 0 10/09/2024 [facility] of Occupat ional Health - Occupational Stress [...] place to sleep or slept in a jail (including now)? No 04/09/2023 Housing Stability Vital Sign Answer Raul e Recorded In the last 12 months, was t here a time when you were not able to pay the mortgage or rent on time? No 06/07/2024 In the past 12 months, how m any times have you moved where you were living? 0 06/07/2024 At any time in the past 12 m [facility], were you homeless or living in a jail (including now)? No 06/07/2024 Estimated Date of [...] 4:00 PM EDT Routine NOMS FNR OB [facility]9 [facility] [place] [place] [address] Flaquita Banuelos, [address] [place] [address] 01/15/2025 4:30 PM EDT Routine N[facility] FNR OB [address] [place] [address], [place] [address] Flaquita Banuelos, CATHIE[address] [place] [address] 01/18/2025 8:30 AM EDT Office Visit [facility] SWS FM [address] [place] [address] Awilda Crenshaw, DO [address] [place] [address] 01/22/2025 4:30 PM EDT Routine N[facility] FNR OB [facility]9 [facility] [place] [address] Flaquita Banuelos, CN [address] [place] [address] 01/29/2025 4:30 PM EDT Routine [facility] FNR OB [address] [facility] [place] [address] Flaquita Banuelos, CATHIE[address] [place] [address] 02/06/2025 4:30 PM EDT Routine [facility] FNR OB [address] [facility] [place] [address] Flaquita Banuelos, CNM [address] [place] [address] 02/12/2025 4:30 PM EDT Routine [facility] FNR OB [address] [facility] [place] [address] Flaquita Banuelos, CNM [address]79 [facility], [place] [phone] documented as of this encounter Visit Diagnoses Not on filedocumented in this encounter Care Teams Flosser Relationship Specialty Start Date End Date Unallocated, Noms Provider, [facility] [place] [address] PCP - General 04/16/23 Awilda Crenshaw DO [address] [address] PCP - [place] [employer] 06/16/23 Flaquita Banuelos CNM [address] [place] [phone] Obstetrics and Gynecology 02/10/23 documented as of this encounter
--- OUTSIDE RECORDS SUMMARY | 2025-01-09 07:01 | XMS_ITS | Encounter Summary ---
Author Organization [facility] Address [address] [place] [address] Care Team Providers Care Deputy Program Manager Name Role Phone Flaquita Banuelos CNM Unavailable Unallocated, Noms Provider Primary Care Provi mart Encounter Details Date Type Department Care Team (Late st Contact Info) Description 12/20/2024 Results Follow-Up [facility] FNR OB [address] [place] [address] Flaquita Banuelos, CNM [address] [place], [place] [id number] Social History Tobacco Use Types Packs/Day Years [...] often do you attend chur ch or sikhism services? More than 4 times per year 06/07/2024 Do you belong to any clubs o r organizations such as synagogue groups, unions, fraternal or athletic groups, or [...] [facility] of Occupat ional Health - Occupational [...] any time in the past 12 m [facility], were you homeless or living in [...] PM EDT Routine [facility] FNR OB [address] [place] [address] Flaquita Banuelos, CNM [address] [facility] [place] [address] 01/15/2025 4:30 PM EDT Routine [facility] FNR OB [address]79 [facility] [place] [address] Flaquita Banuelos, CNM [address] [facility] [place] [address] 01/18/2025 8:30 AM EDT Office Visit [facility] SWS FM [address] [place] [address] Awilda Crenshaw, DO [address] [place] [address] 01/22/2025 4:30 PM EDT Routine [facility] FNR OB [address] [facility] [place] [address] Flaquita Banuelos, CNM [address] [facility] [place] [address] 01/29/2025 4:30 PM EDT Routine [facility] FNR OB [address] [facility] [place] [address] Flaquita Banuelos, CNM [address] [facility] [place] [address] 02/06/2025 4:30 PM EDT Routine [facility] FNR OB [address] [facility] [place] [address] Flaquita Banuelos, CNM [address] [facility] [place] [address] 02/12/2025 4:30 PM EDT Routine [facility] FNR OB [address] [facility] [place] [address] Flaquita Banuelos CNM [address] [place], [place] [phone] documented as of this encounter Visit Diagnoses Not on filedocumented in this encounter Care Teams Deputy Program Manager Relationship Specialty Start Date End Date Unallocated, Noms Provider, [address] [place] [address] PCP - General 04/16/23 Flaquita Banuelos CNM [address] [place] [address] Obstetrics and Gynecology 02/10/23 documented as of this encounter
--- OUTSIDE RECORDS SUMMARY | 2025-01-09 07:01 | XMS_ITS | Encounter Summary ---
Author Organization [facility] Address [address] [place] [address] Care Team Providers Care Radio Intelligence Operator Name Role Phone Flaquita Banuelos CNM Unavailable [phone] Unallocated, Noms Provider Primary Care Provi mart Encounter Details Date Type Department Care Team (Late st Contact Info) Description 11/30/2024 [facility] [address] [place] [address] Awilda Crenshaw, DO [address] [place] [address] Social History Tobacco Use Types Packs/Day Years [...] any clubs o r organizations such as jainism groups, unions, fraternal or athletic groups, or [...] Recorded Patient Health Questionnaire-2 Score 0 10/09/2024 [facility] ional [facility] - [...] place to sleep or slept in a fpc (including now)? No 04/09/2023 Housing Stability Vital Sign Answer Raul e Recorded In the last 12 months, was t here a time when you were not able to pay the mortgage or rent on time? No 06/07/2024 In the past 12 months, how m any times have you moved where you were living? 0 06/07/2024 At any time in the past 12 m [facility], were you homeless or living in a fpc (including now)? No 06/07/2024 Estimated Date of [...] PM EDT Routine [facility] [address] [place] [address] Flaquita Banuelos, CNM [address] [place] [address] 01/15/2025 4:30 PM EDT Routine [facility] [address] [facility] [place] [address] Flaquita Banuelos, CNM [address] [place] [address] 01/18/2025 8:30 AM EDT Office Visit [facility] [address] [place] [address] Awilda Crenshaw, DO [address] [place] [address] 01/22/2025 4:30 PM EDT Routine [facility] [address] [facility] [place] [address] Flaquita Banuelos, CNM [address] [place] [address] 01/29/2025 4:30 PM EDT Routine [facility] [address] [facility] [place] [address] Flaquita Banuelos, CNM [address] [place] [address] 02/06/2025 4:30 PM EDT Routine [facility] [address] [facility] [place] [address] Flaquita Banuelos, CNM [address] [place] [address] 02/12/2025 4:30 PM EDT Routine [facility] [address] [facility] [place] [address] Flaquita Banuelos, CNM [address] [place], [place] [id number] documented as of this encounter Visit Diagnoses Not on filedocumented in this encounter Care Teams Radio Intelligence Operator Relationship Specialty Start Date End Date Unallocated, Noms Provider, [address] [place] [address] PCP - General 04/16/23 Flaquita aBnuelos CNM [address] [place], [place] [id number] Obstetrics and Gynecology 02/10/23 documented as of this encounter
--- OUTSIDE RECORDS SUMMARY | 2025-01-09 07:01 | XMS_ITS | Clinical Summary ---
Author Organization [facility] Address [id number] [address] [place] [address] Care Team Providers Care Superannuation Clerk Name Role Phone SheebaWanda sanchezDaríolibby LACY-CNM Primary Care Provider [phone] Allergies No known active allergies Medications metFORMIN [...] Description 11/08/2024 9:30 AM EDT Office Visit [facility] [address] [place] [address] Robby Quezada MD Goyal, Vishal, MD Long Q-T syndrome (Primary Dx); Hx of prolonged Q-T interval on ECG 11/07/2024 Telephone [facility] [address] [place] [address] Abby Andino CMA 11/07/2024 Travel 11/06/2024 Travel 10/31/2024 8:00 AM EDT - 10/31/2024 11:59 PM EDT Hospital Encounter [facility] - Ultrasound [address] [place] [address] Encounter for other screening follow-up; Pre-existing type 2 diabetes mellitus in in second trimester Discharge Disposition: Home 10/29/2024 Travel from Last 3 Months Immunizations Immunization [...] 9:07 AM EDT) Anatomical Region Laterality Modality OB-SHIP SCRAPER Ultrasound 10/31/2024 8:09 AM EDT Narrative 10/31/2024 3:59 PM EDT NAME: ERIC MONTELONGO : 1995 SEX: F Accession Number: [id number] ORDERING PHYSICIAN: JAXON TURCIOS REFERRING PHYSICIAN: DARÍO BANUELOS Coding ----- --------- Procedures 26834: Follow-up Ultrasound, per fetus 57994: Echocardiography, , cardiovascular system, real time with [...] 1 lb 10 oz EFW by Hadlock ([id number]) Head / Face / Neck Biometry: Cephalic index 0.78 45% Nicolaides Manager Regional Sales 6.6 mm CM 3.9 mm 4% Nicolaides [...] view. RVOT view. LVOT view. 3-vessel view. 2-ecqeer-meiowyg view. Great vessels. Right lung. Left lung. [...] normal RVOT view normal 3-vessel view normal 9-oyenyc-ovonxqr view normal Aortic arch view documented previously [...] primary OB provider unless otherwise specified by MFM. Results forwarded to ordering provider so they can follow up with the patient as necessary. Procedure Note Jaxon Turcios MD - 10/31/2024 NAME: ERIC MONTELONGO : 1995 SEX: F Accession Number: [id number] ORDERING PHYSICIAN: JAXON TURCIOS REFERRING PHYSICIAN: DARÍO BANUELOS Coding ----- --------- Procedures 13236: Follow-up Ultrasound, per fetus 09929: Echocardiography, , cardiovascular system, real timewith image [...] 1 lb 10 oz EFW by Hadlock ([id number]) Head / Face / Neck Biometry: Cephalic index 0.78 45% Nicolaides Manager Regional [employer] 6.6 mm CM 3.9 mm 4% Nicolaides Extremities / Bony Struc Biometry: FL / BPD 0.73 FL / HC 0.20 FL / AC 0.21 Tibia 38.6 mm 24w 5d 65% Rachelle Anatomy ----- --------- The following structures appear normal: Head/Neck: Cranium. Lateral ventricles. Cavum septi pellucidi. Cerebellum.Cisterna magna. Parenchyma. Face: Lips. Profile. Nose. Nasal bone. Heart/Thorax: 4-chamber view. RVOT view. LVOT view. 3-vessel view.7-lwfged-ryyxuwb view. Great vessels. Right lung. Left lung. [...] normal RVOT view normal 3-vessel view normal 4-lzlpky-oxgrxij view normal Aortic arch view documented previously [...] byprimary OB provider unless otherwise specified by [facility]. Results forwarded to ordering provider so they can follow up with thepatient as necessary. us Jaxon Turcios MD [facility] ORDERABLES Final Re sult from Last 3 Months Insurance [employer] Care Teams Superannuation Clerk Relationship Specialty Start Date End Date Darío Banuelos APRN-CNM [address] [place] [address] PCP - General Nurse Tread Booker 04/15/18
--- OUTSIDE RECORDS SUMMARY | 2025-01-09 07:01 | XMS_ITS | Encounter Summary ---
Author Organization [facility] Address [address] [place] [address] Care Team Providers Care Fire Medic Name Role Phone Flaquita Banuelos CNM Unavailable [phone] Unallocated, Noms Provider Primary Care Provi mart Encounter Details Date Type Department Care Team (Late st Contact Info) Description 12/26/2024 Bamboo flowsheet [facility] [address] [place] [address] Flaquita Banuelos, CNM [address] [place], [place] [phone] Social History Tobacco Use Types Packs/Day Years [...] any clubs o r organizations such as sikhism groups, unions, fraternal or athletic groups, or [...] Recorded Patient Health Questionnaire-2 Score 0 12/07/2024 [facility]at ional [facility] - Occupational [...] time in the past 12 m [facility], were you homeless or living in [...] 4:00 PM EDT Routine [facility] [address] [place] [address] Flaquita Bnauelos, CNM [address] [place] [address] 01/15/2025 4:30 PM EDT Routine [facility] [address] [place] [address] Flaquita Banuelos, CNM [address] [place] [address] 01/18/2025 8:30 AM EDT Office Visit [facility] [address] [place] [address] Awilda Crenshaw, DO [address] [place] [address] 01/22/2025 4:30 PM EDT Routine [facility] [address] [place] [address] Flaquita Banuelos, CNM [address] [place] [address] 01/29/2025 4:30 PM EDT Routine [facility] [address] [place] [address] Flaquita Banuelos, CN [address] [place] [address] 02/06/2025 4:30 PM EDT Routine [facility] [address] [place] [address] Flaquita Banuelos, CNM [address] [place] [address] 02/12/2025 4:30 PM EDT Routine [facility] [address] [place] [address] Flaquita Banuelos CNM [address] [place], [place] [id number] documented as of this encounter Visit Diagnoses Not on filedocumented in this encounter Care Teams Fire Medic Relationship Specialty Start Date End Date Unallocated, Noms Provider, [address] [place] [address] PCP - General 04/16/23 Flaquita Banuelos CNM [address] [place] [address] Obstetrics and Gynecology 02/10/23 documented as of this encounter
--- OUTSIDE RECORDS SUMMARY | 2025-01-09 07:01 | XMS_ITS | Encounter Summary ---
Author Organization [facility] Address [address] [place] [address] Care Team Providers Care Inspector Canvas Products Name Role Phone Vin Flaquita Mccoy CNM Unavailable [phone] Unallocated, Noms Provider Primary Care Provi mart Encounter Details Date Type Department Care Team (Late st Contact Info) Description 01/05/2025 Clinisync Result Encounter [facility] External Department Unsolicited Nick Sam, DO [address] [facility] [place] [address] Social History Tobacco Use Types Packs/Day Years [...] How often do you attend chur or jewish services? More than 4 times per year 06/07/2024 Do you belong to any clubs o r organizations such as baptism groups, unions, fraternal or athletic groups, or [...] Recorded Patient Health Questionnaire-2 Score 0 12/07/2024 [facility] Occupat ional Health - Occupational [...] any time in the past 12 m [facility], were you homeless or living in [...] PM EDT Routine [facility] [address] [place] [address] Flaquita Banuelos, CNM [address] [place] [address] 01/15/2025 4:30 PM EDT Routine [facility] [address] [place] [address] Flaquita Banuelos, CNM [address] [place] [address] 01/18/2025 8:30 AM EDT Office Visit [facility] [address] [place] [address] Awilda Crenshaw, DO [address] [place] [address] 01/22/2025 4:30 PM EDT Routine [facility] [address] [place] [address] Flaquita Banuelos, CNM [address] [place] [address] 01/29/2025 4:30 PM EDT Routine [facility] [address] [place] [address] Flaquita Banuelos, CNM [address] [place] [address] 02/06/2025 4:30 PM EDT Routine [facility] [address] [place] [address] Flaquita Banuelos, CNM [address] [place] [address] 02/12/2025 4:30 PM EDT Routine [facility] [address] [place] [address] Flaquita Banuelos, CNM [address] [place] [address] documented as of this encounter Procedures Procedure Name Priority Date/Time Associated Diagnosis Comments US OB BPP W NON-STRESS 01/05/2025 3:27 PM EDT documented in this encounter Results * US OB BPP W NON-STRESS (01/05/2025 3:27 PM EDT) Anatomical Region Laterality Modality Other 01/05/2025 3:27 PM EDT Narrative 01/05/2025 3:29 PM EDT [address] [address] Ultrasound Report Signed Patient: REGINALD REYES MR#: [id number] : 1995 Acct:[id number] Age/Sex: 29 / F ADM Date: 01/05/25 Loc: US Attending Dr: Nick Sam D.O. Ordering Physician: Nick Sam D.O. Date of Service: 01/05/25 Procedure(s): US OB BPP w non-stress Accession Number(s): [id number] cc: Nick Sam D.O.; Physician,Non-Staff Magaly [address] [address] Patient Name: REGINALD REYES MRN: [id number] date: 1995 Sex: F Assigned Patient Location: [facility] Current Patient Location: US Accession/Order Number: [id number] Exam Date: 01/05/2025 15:26 Report Date: 01/05/2025 15:27 At the request of: NICK SAM DO Procedure: US OB BPP w non-stress Ultrasound biophysical profile ultrasound HISTORY: 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 There is adequate breathing movement, gross body movement, tone and amniotic fluid volume for total score of 8 out of 8. The amniotic fluid index is 13.6 cm within normal limits. The heart rate is 134 bpm. US/US OB BPP w non-stress IMPRESSION: Adequate ultrasound biophysical profile Impression dictated by: Pradip Love M.D. 01/05/2025 3:27 PM Dictation Location: [facility] Electronically authenticated by: [id number] Y Date: 01/05/2025 15:27 Dictated By: Pradip Love D.O. Signed By: 01/05/25 1529 DD/ 1527 TD/TT: Fire Engine Pump Operator: Procedure Note Radiology, Radiologist, MD - 01/05/2025 [place] [address] Ultrasound Report Signed Patient: REGINALD REYES MMR#: [id number] : 1995Acct:[id number] Age/Sex: 29 / FADM Date: 01/05/25 Loc: US Attending Dr: Nick Sam D.O. Ordering Physician: Nick Sam D.O. Date of Service: 01/05/25 Procedure(s): US OB BPP w non-stress Accession Number(s): [id number] cc: Nick Sam D.O.; Physician,Non-Staff Magaly The [place] [id number] Patient Name: REGINALD REYES MRN: [id number] date: 1995 Sex: F Assigned Patient Location: [facility] Current Patient Location: US Accession/Order Number: [id number] Exam Date: 01/05/2025 15:26 Report Date: 01/05/2025 15:27 At the request of: NICK SAM DO Procedure: US OB BPP w non-stress Ultrasound biophysical profile ultrasound HISTORY: 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 There is adequate breathing movement, gross body movement, fetaltone and amniotic fluid volume for total score of 8 out of 8. The amnioticfluid index is 13.6 cm within normal limits. The heart rate is 134 bpm. US/US OB BPP w non-stress IMPRESSION: Adequate ultrasound biophysical profile Impression dictated by: Pradip Love M.D. 01/05/2025 3:27 PM Dictation Location: [facility] Electronically authenticated by: [id number] Y Date: :27 Dictated By: Pradip Love D.O. Signed By:01/05/25 1529 DD/ 1527 TD/TT: Fire Engine Pump Operator: us Nick Flaco DO [facility] Final Result documented in this encounter Visit Diagnoses Not on filedocumented in this encounter Care Teams Inspector Canvas Products Relationship Specialty Start Date End Date Unallocated, Noms Provider, [address] [place] [address] PCP - General 04/16/23 Flaquita Banuelos CNM [address] [place] [address] Obstetrics and Gynecology 02/10/23 documented as of this encounter
--- OUTSIDE RECORDS SUMMARY | 2025-01-09 07:01 | XMS_ITS | Encounter Summary ---
Author Organization [facility] Address [address] [place] [address] Care Team Providers Care Forensic Engineer Name Role Phone Vin Flaquita Mccoy CNM Unavailable [phone] Unallocated, Noms Provider Primary Care Provi mart Encounter Details Date Type Department Care Team (Late st Contact Info) Description 12/29/2024 Clinisync Result Encounter [facility] External Department Unsolicited Nick Sam, DO [address] [facility] [place] [address] Social History Tobacco Use Types Packs/Day Years [...] How often do you attend chur or jainism services? More than 4 times per year [...] Recorded Patient Health Questionnaire-2 Score 0 12/07/2024 [facility] of Occupat ional Health - Occupational [...] place to sleep or slept in a residential (including now)? No 04/09/2023 Housing Stability Vital [...] time in the past 12 m [facility], were you homeless or living in a residential (including now)? No 06/07/2024 Estimated Date of [...] PM EDT Routine [facility] [address] [place] [address] Flaquita Banuelos, CNM [address] [facility] [place] [address] 01/15/2025 4:30 PM EDT Routine [facility] [address]79 [facility] [place] [place] [address] Flaquita Banuelos, CNM [address] [facility] [place] [address] 01/18/2025 8:30 AM EDT Office Visit [facility] [address] [place] [address] Awilda Crenshaw, DO [address] [place] [address] 01/22/2025 4:30 PM EDT Routine [facility] [address] [facility] [place] [place] [address] Flaquita Banuelos, CNM [address] [facility] [place] [address] 01/29/2025 4:30 PM EDT Routine [facility] [address] [facility] [place] [place] [address] Flaquita Banuelos, CNM [address] [facility] [place] [address] 02/06/2025 4:30 PM EDT Routine [facility] [address] [facility] [place] [place] [address] Flaquita Banuelos, CNM [address] [facility] [place] [address] 02/12/2025 4:30 PM EDT Routine [facility] [address] [facility] [place] [place] [address] Flaquita Banuelos, CNM [address] [facility] [place] [address] documented as of this encounter Procedures Procedure Name Priority Date/Time Associated Diagnosis Comments US OB BPP W NON-STRESS 12/29/2024 9:36 AM EDT documented in this encounter Results * US OB BPP W NON-STRESS (12/29/2024 9:36 AM EDT) Anatomical Region Laterality Modality Other 12/29/2024 9:36 AM EDT Narrative 12/29/2024 9:38 AM EDT [address] [address] Ultrasound Report Signed Patient: REGINALD REYES MR#: [id number] : 1995 Acct:[id number] Age/Sex: 29 / F ADM Date: 12/29/24 Loc: US Attending Dr: Nick Sam D.O. Ordering Physician: Nick Sam D.O. Date of Service: 12/29/24 Procedure(s): US OB BPP w non-stress Accession Number(s): [id number] cc: Nick Sam D.O.; Physician,Non-Staff Magaly [address] [address] Patient Name: REGINALD REYES MRN: [id number] date: 1995 Sex: F Assigned Patient Location: [facility] Current Patient Location: Accession/Order Number: [id number] Exam Date: 12/29/2024 09:34 Report Date: 12/29/2024 [...] Roberson M.D. 12/29/2024 9:36 AM Dictation Location: [place] [address] Electronically authenticated by: [id number] Y Date: 12/29/2024 09:36 Dictated By: Zak Roberson M.D. Signed By: 12/29/24937 DD/ 5 TD/TT: Prepared Foods Service Team Member: Procedure Note Radiology, Radiologist, MD - 12/29/2024 [place] [address] Ultrasound Report Signed Patient: REGINALD REYES MMR#: [id number] : 1995Acct:[id number] Age/Sex: 29 / FADM Date: 12/29/24 Loc: US Attending Dr: Nick Sam D.O. Ordering Physician: Nick Sam D.O. Date of Service: 12/29/24 Procedure(s): US OB BPP w non-stress Accession Number(s): [id number] cc: Nick Sam D.O.; Physician,Non-Staff Magaly The [address] [address] Patient Name: REGINALD REYES MRN: [employer]:[id number] date: 1995 Sex: F Assigned Patient Location: [facility] Current Patient Location: Accession/Order Number: [id number] Exam Date: 12/29/2024 09:34 Report Date: 12/29/2024 [...] Roberson M.D. 12/29/2024 9:36 AM Dictation Location: [employer] Electronically authenticated by: [id number] Y Date: 9:36 Dictated By: Zak Roberson M.D. Signed By:12/29/2438 DD/ 5 TD/TT: Prepared Foods Service Team Member: us Nick Flaco DO [facility] Final Result documented in this encounter Visit Diagnoses Not on filedocumented in this encounter Care Teams Forensic Engineer Relationship Specialty Start Date End Date Unallocated, Noms Provider, [address] [place] [address] PCP - General 04/16/23 Flaquita Banuelos CNM [address] [place] [address] Obstetrics and Gynecology 02/10/23 documented as of this encounter
--- OUTSIDE RECORDS SUMMARY | 2025-01-09 07:01 | XMS_ITS | Encounter Summary ---
Author Organization [facility] Address [address] [place] [address] Care Team Providers Care Press Manager Name Role Phone Vin Flaquita Mccoy CNM Unavailable [phone] Unallocated, Noms Provider Primary Care Provi mart Reason for Visit * Reason Onset Date Comments Med Refill 12/28/2024 Encounter Details Date Type Department Care Team (Late st Contact Info) Description 12/28/2024 Refill [facility] [address] [place] [address] Abby Saul MA Anemia during [...] How often do you attend chur or buddhism services? More than 4 times per year [...] Recorded Patient Health Questionnaire-2 Score 0 12/07/2024 [facility] Occupat ional Health - Occupational Stress [...] any time in the past 12 m [facility], were you homeless or living [...] PM EDT Routine [facility] OB [address] [place] [address] Flaquita Banuelos, CNM [address] [place] [address] 01/15/2025 4:30 PM EDT Routine [facility] [address] [facility] [place] [address] Flaquita Banuelos, CNM [address] [place] [address] 01/18/2025 8:30 AM EDT Office Visit [facility] [address] [place] [address] Awilda Crenshaw, DO [address] [place] [address] 01/22/2025 4:30 PM EDT Routine [facility] [address] [facility] [place] [address] Flaquita Banuelos, CNM [address] [place] [address] 01/29/2025 4:30 PM EDT Routine [facility] [address] [facility] [place] [address] Flaquita Banuelos, CNM [address] [place] [address] 02/06/2025 4:30 PM EDT Routine [facility] [address] [facility] [place] [address] Flaquita Banuelos, CNM [address] [place] [address] 02/12/2025 4:30 PM EDT Routine [facility] [address] [facility] [place] [address] Flaquita Banuelos, CNM [address] [place], [place] [address] documented as of this encounter Visit Diagnoses Diagnosis Anemia during in third trimester documented in this encounter Care Teams Press Manager Relationship Specialty Start Date End Date Unallocated, Noms Provider, [address] [place] [address] PCP - General 04/16/23 Flaquita Banuelos CNM [address] [place], [place] [address] Obstetrics and Gynecology 02/10/23 documented as of this encounter
--- OUTSIDE RECORDS SUMMARY | 2025-01-09 07:01 | XMS_ITS | Clinical Summary ---
Author Organization [facility] Address [address] [place] [address] Care Team Providers Care Extrusion Die Corrector Name Role Phone Flaquita Banuelos CNM Unavailable [phone] Unallocated, [facility] Primary Care Provi mart Allergies [...] (100 mg) before bedtime. 60 capsule 3 5 04/27/20 25 Active ferrous sulfate (Fe Tabs) 325 (65 [...] Encounters Date Type Department Care Team Description 01/05/2025 Clinisync Result Encounter NOMS External Department Unsolicited Nick Sam, DO 01/05/2025 Orders Only [facility]S R OB [address] [place] [address] Flaquita Banuelos CNM with type 2 diabetes mellitus in third trimester 01/04/2025 Results Follow-Up [facility]S FNR OB [address] [place] [address] Flaquita Banuelos CNM 01/01/2025 4:30 PM EDT Routine [facility]S FNR OB [address] [place] [address] Flaquita Banuelos CNM Screening for iron deficiency anemia (Primary Dx); Dysuria 01/01/2025 Bamboo flowsheet [facility] FNR OB [address] [place] [address] Flaquita Banuelos CNM 01/01/2025 Travel 12/29/2024 Clinisync Result Encounter NOMS External Department Unsolicited Nick Sam, DO 12/28/2024 Refill [facility]S FNR OB [address] [place] [address] Abby Saul MA Anemia during in third trimester 12/27/2024 Results Follow-Up [facility]S FNR OB [address] [place] [address] Abby Saul MA 12/27/2024 Refill [facility] FNR OB [address] [place] [address] Abby Saul, PEARL Anemia during in third trimester 12/26/2024 4:00 PM EDT Routine [facility] FNR OB [address] [place] [address] Flaquita Banuelos, CNM with type 2 diabetes mellitus in third trimester (Primary Dx); Screening for iron deficiency anemia; 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 mellitus treated with insulin ([facility]) 12/26/2024 Bamboo flowsheet [facility] FNR OB [address] [place] [address] Flaquita Banuelos, SADIA 12/25/2024 10:20 AM EDT Consult N[facility]S BCP OB [address] [facility] [address] Nick Sam, with type 2 diabetes mellitus in third trimester 12/25/2024 Travel 12/25/2024 Bamboo flowsheet N[facility]S BCP OB [address] [facility] [place] [address] Nick Sam DO 12/20/2024 Results Follow-Up [facility] FNR OB [address] [place] [address] Flaquita Banuelos CNM 12/20/2024 Orders Only [facility] FNR OB [address] [place] [address] Flaquita Banuelos, CATHIEM with type 2 diabetes mellitus in third trimester 12/11/2024 4:30 PM EDT Ancillary Procedure [facility] FNR ULTRASOUND [address] [place] [address] related condition in third trimester 12/11/2024 4:00 PM EDT Routine [facility] FNR OB [address] [place] [address] Flaquita Banuelos CNM with type 2 diabetes mellitus in third trimester 12/11/2024 Bamboo flowsheet [facility] FNR OB [address] [place] [address] Flaquita Banuelos CNM 12/11/2024 Travel 12/07/2024 8:15 AM EDT Office Visit [facility] FM [address] [place] [address] Awilda Crenshaw, DO with type 2 diabetes mellitus in third trimester (Primary Dx); with type 2 diabetes mellitus in second trimester 12/07/2024 Abstract [facility] DEMO DEPARTMENT [address] [place] [address] Unallocated, Danay Biggs MD 12/07/2024 Travel 12/04/2024 Travel 11/30/2024 Abstract [facility] DEPARTMENT [address] [place] [address] Awilda Crenshaw, 11/30/2024 Travel 11/29/2024 Telephone [facility] FM [address] [place] [address] Bonny Garcia, TANIA BG readings 11/15/2024 4:30 PM EDT Routine NOMS FNR OB [facility] [place] [address] Flaquita Banuelos CNM Encounter for care of first , second trimester (Primary Dx); related condition in third trimester; Gestational diabetes mellitus (GDM) requiring insulin 11/15/2024 Bamboo flowsheet N[facility] FNR OB [facility] [place] [address] Flaquita Banuelos CNM 11/14/2024 Travel 11/10/2024 Abstract [facility] DEPARTMENT [address] [place] [address] wAilda Crenshaw, 11/03/2024 Abstract [facility] [address] [place] [address] Awilda Crenshaw, DO 10/20/2024 Abstract [facility] [address] [facility] [address] [place] [address] Awilda Crenshaw, DO 10/18/2024 4:30 PM EST Routine [facility] FNR OB [address] [place] [address] Flaquita Banuelos CNM 10/18/2024 Bamboo flowsheet [facility] FNR OB [address] [place] [address] Flaquita Banuelos CNM from Last 3 Months Immunizations Immunization Administration [...] any clubs o r organizations such as temple groups, unions, fraternal or athletic groups, or [...] Patient Health Questionnaire-2 Score 0 12/07/2024 [facility] [place] of Occupat ional Health - Occupational Stress [...] any time in the past 12 m ont, were you homeless or living in a [...] PM EDT Routine [facility]S FNR OB [address] [place] [address] Flaquita Banuelos CN [address] [place] [address] 01/15/2025 4:30 PM EDT Routine [facility] FNR OB [address] [place] [address] Flaquita Banuelos CN [address] [place] [address] 01/18/2025 8:30 AM EDT Office Visit [facility] FM [address] [place] [address] Awilda Crenshaw DO [address] [place] [address] 01/22/2025 4:30 PM EDT Routine [facility] FNR OB [address] [place] [address] Flaquita Banuelos, CNM [address] [place] [address] 01/29/2025 4:30 PM EDT Routine [facility] FNR OB [address] [place] [address] Vin Flaquita L, CNM [address] [place] [address] 02/06/2025 4:30 PM EDT Routine [facility] FNR OB [address] [place] [address] Sheebalaura Flaquita L, CNM [address] [place] [address] 02/12/2025 4:30 PM EDT Routine [facility] FNR OB [address] [place] [address] Flaquita Banuelos Nadine, CNM [address] [place] [address] Health Maintenance Due Date Last Done Comments Diabetes: Retinopathy Screening 2005 Diabetes: Hemoglobin A1C 01/06/2025 025, 07/10/2024, 06/08/2024, Additional history exists Influenza Vaccine (Season Ended) 2025 Diabetes: Urine Protein Screening 08/30/2025 025 Procedures Procedure Name Priority Date/Time Associated Diagnosis Comments US OB BPP W NON-STRESS 01/05/2025 3:27 PM EDT CULTURE, URINE, ROUTINE Routine 01/02/20 5:00 PM [...] complication, without long-term current use of insulin ([facility]) from Last 3 Months or Most Recently Relevant to Health Maintenance Results * US OB BPP W NON-STRESS (01/05/2025 3:27 PM EDT) Only the most recent of2 resultswithin the time period is included. Anatomical Region Laterality Modality Other 01/05/2025 3:27 PM EDT Narrative 01/05/2025 3:29 [place] [address] Ultrasound Report Signed Patient: REGINALD REYES MR#: [id number] : 1995 Acct:[id number] Age/Sex: 29 / F ADM Date: 01/05/25 Loc: US Attending Dr: Nick Sam D.O. Ordering Physician: Nick Sam D.O. Date of Service: 01/05/25 Procedure(s): US OB BPP w non-stress Accession Number(s): [id number] cc: Nick Sam D.O.; Physician,Non-Staff Mag[facility] The [address] [address] Patient Name: REGINALD REYES MRN: [id number] date: 1995 Sex: F Assigned Patient Location: [facility] Current Patient Location: [place] Accession/Order Number: [id number] Exam Date: 01/05/2025 15:26 Report Date: 01/05/2025 [...] Love M.D. 01/05/2025 3:27 PM Dictation Location: [facility] Electronically authenticated by: [id number] Y Date: 01/05/2025 15:27 Dictated By: Pradip Love D.O. Signed By: 01/05/25 1529 DD/ 1527 TD/TT: Muffler Installer: Procedure Note Radiology, Radiologist, MD - 01/05/2025 [place] [address] Ultrasound Report Signed Patient: REGINALD REYES MMR#: [id number] : 1995Acct:[id number] Age/Sex: 29 FADM Date: 01/05/25 Loc: US Attending Dr: Nick Sam D.O. Ordering Physician: Nick Sam D.O. Date of Service: 01/05/25 Procedure(s): US OB BPP w non-stress Accession Number(s): [id number] cc: Nick Sam D.O.; Physician,Non-Staff [facility] The [place] [address] Patient Name: REGINALD REYES MRN: [id number] date: 1995 Sex: F Assigned Patient Location: [facility] Current Patient Location: US Accession/Order Number: [id number] Exam Date: 01/05/2025 15:26 Report Date: 01/05/2025 [...] Love M.D. 01/05/2025 3:27 PM Dictation Location: [place] [address] Electronically authenticated by: [id number] Y Date: :27 Dictated By: Pradip Love D.O. Signed By:01/05/25 1529 DD/ 1527 TD/TT: Muffler Installer: us Nick Flaco DO [facility] Final Result * Urine culture (01/01/2025 5:00 PM EDT) MICRO NUMBER [id number] [facility] SPECIMEN QUALITY Adequate QUEST SOURCE: (QUEST) [...] Performing Organization Information Site ID: QPT Name: [facility] Address: [address] [place] [address], [address] [place] [phone] Director: Devendra Aguilar MD Flaquita Banuelos CNM LAB MICROBIOLOGY - GENERAL O RDERABLES Final Result QUEST * (ABNORMAL) CBC (12/26/2024 4:19 PM EDT) [...] Performing Organization Information Site ID: QPT Name: [facility] Address: [address] [place] [address], [address] [place] [phone] Director: Devendra Aguilar MD us Flaquita Banuelos CNM LAB BLOOD ORDERABLES Final R esult QUEST * POCT urinalysis dipstick manually resulted (12/25/2024 10:52 AM EDT) Color, UA Yellow Clarity, UA Clear Glucose, UA Negative Negative - 1999(110) ++++ mg/dL Bilirubin, UA Negative Negative - (70) +++ mg/dL Ketones, UA Negative Negative - [...] II, MD, PHD at 12-Dec-2024 07:13:14 PM [facility] Procedure Note Yuli Mccarthy MD - [...] signed by YULI MCCARTHY II, MD, PHD 07:13:14 PM [facility] Flaquita BRAND IMG OB US PROCEDURES Final R esult * POCT glycosylated hemoglobin (Hb A1C) docked device (10/09/2024 3:49 PM EST) Hemoglobin A1C 5.7 Blood Venous blood specimen / Unknown 10/09/2024 3:49 PM EST Awilda Crenshaw DO POINT OF CARE TEST ENTER/E DIT ORDERABLES Final Result from Last 3 Months or Most Recently Relevant to Health Maintenance Insurance [facility] Care Teams Extrusion Die Corrector Relationship Specialty Start Date End Date Unallocated, Noms Provider, [address] [place] [address] PCP - General 04/16/23 Flaquita Banuelos CNM [address] [place] [address] Obstetrics and Gynecology 02/10/23
--- OUTSIDE RECORDS SUMMARY | 2025-01-09 07:01 | XMS_ITS | Encounter Summary ---
Author Organization [facility] Address [address] [place] [address] Care Team Providers Care Consumer Insights Specialist Name Role Phone Flaquita Banuelos CNM Unavailable [phone] Unallocated, Noms Provider Primary Care Provi mart [...] How often do you attend chur or uatsdin services? More than 4 times per year [...] Recorded Patient Health Questionnaire-2 Score 0 12/07/2024 [facility] of Occupat ional [facility] - Occupational Stress Questionnaire Answer Date Recorded [...] any time in the past 12 m [facility], were you homeless or living in [...] PM EDT Routine [facility] FNR OB [address] [place] [address] Flaquita Banuelos, CNM [address] [place] [address] 01/15/2025 4:30 PM EDT Routine [facility] FNR OB [address] [place] [address] Flaquita Banuelos, CN [address] [facility] [place] [address] 01/18/2025 8:30 AM EDT Office Visit [facility] SWS FM [address] [place] [address] Awilda Crenshaw, DO [address] [place] [address] 01/22/2025 4:30 PM EDT Routine [facility] FNR OB [address] [place] [address] Flaquita Banuelos, [facility] [address] [facility] [place] [address] 01/29/2025 4:30 PM EDT Routine [facility] FNR OB [address] [place] [address] Flaquita Banuelos, CN [address] [facility] [place] [address] 02/06/2025 4:30 PM EDT Routine [facility] FNR OB [address] [place] [address] Flaquita Banuelos, CN [address] [facility] [place] [address] 02/12/2025 4:30 PM EDT Routine [facility] FNR OB [address] [place] [address] Flaquita Banuelos, CN [address] [facility] [place] [address] documented as of this encounter Visit Diagnoses Not on filedocumented in this encounter Care Teams Consumer Insights Specialist Relationship Specialty Start Date End Date Unallocated, Noms Provider, [place] [address] PCP - General 04/16/23 Flaquita Banuelos CNM [address] [place], [place] [address] Obstetrics and Gynecology 02/10/23 documented as of this encounter
--- OUTSIDE RECORDS SUMMARY | 2025-01-09 07:01 | XMS_ITS | Encounter Summary ---
Author Organization [facility] Address [address] [place] [address] Care Team Providers Care Hvac Commercial Salesperson Name Role Phone Vin Flaquita Mccoy CNM Unavailable [phone] Unallocated, Noms Provider Primary Care Provi mart Encounter Details Date Type Department Care Team (Late st Contact Info) Description 12/27/2024 Results Follow-Up [facility] FNR OB [address] [place] [address] Abby Saul MA Social History [...] any time in the past 12 m [facility], were you homeless or living in a [...] PM EDT Routine [facility] FNR OB [address] [place] [address] Flaquita Banuelos, CNM [address] [place] [address] 01/15/2025 4:30 PM EDT Routine [facility] FNR OB [address] [facility] [place] [address] Flaquita Banuelos, CNM [address] [place] [address] 01/18/2025 8:30 AM EDT Office Visit [facility] SWS FM [address] [place] [address] Den Awilda Brooks, DO [address] [place] [address] 01/22/2025 4:30 PM EDT Routine [facility] FNR OB [address] [place] [address] Flaquita Banuelos, CNM [address] [place] [address] 01/29/2025 4:30 PM EDT Routine [facility] FNR OB [address] [facility] [place] [address] Flaquita Banuelos, CNM [address] [place] [address] 02/06/2025 4:30 PM EDT Routine [facility] FNR OB [address] [place] [address] Flaquita Banuelos, CNM [address] [place] [address] 02/12/2025 4:30 PM EDT Routine [facility] FNR OB [address] [facility] [place] [address] Flaquita Banuelos, CNM [address] [place] [address] documented as of this encounter Visit Diagnoses Not on filedocumented in this encounter Care Teams Hvac Commercial Salesperson Relationship Specialty Start Date End Date Unallocated, Noms Provider, [place] [address] PCP - General 04/16/23 Flaquita Banuelos CNM [address] [place] [address] Obstetrics and Gynecology 02/10/23 documented as of this encounter
--- OUTSIDE RECORDS SUMMARY | 2025-01-09 07:01 | XMS_ITS | Encounter Summary ---
Author Organization [facility] Address [address] [place] [address] Care Team Providers Care Dentist Private Practice Name Role Phone Flaquita Banuelos CNM Unavailable [phone] Unallocated, Noms Provider Primary Care Provi mart Awilda Crenshaw DO Unavailable [phone] Encounter Details Date Type Department Care Team (Late st Contact Info) Description 08/31/2023 Abstract [facility] SWS FM [address] [facility] 230 [place] [address] Awilda Crenshaw, [address] [facility] 230 [place] [address] Social History Tobacco Use Types Packs/Day Years [...] How often do you attend chur or mosque services? More than 4 times per year 04/09/2023 Do you belong to any clubs o r organizations such as yarsanism groups, unions, fraternal or athletic groups, or [...] Recorded Patient Health Questionnaire-2 Score 0 04/16/2023 [facility] of Occupat ional Health [...] PM EDT Routine N[facility]S FNR OB [address] [place] [address] Flaquita Banuelos CN [address] [place] [address] 01/15/2025 4:30 PM EDT Routine [facility] FNR OB [address] [place] [address] Flaquita Banuelos CNM [address] [place] [address] 01/18/2025 8:30 AM EDT Office Visit [facility] FM [address] [place] [address] Awilda Crenshaw DO [address] [place] [address] 01/22/2025 4:30 PM EDT Routine [facility]S FNR OB [address] [place] [address] Flaquita Banuelos, CNM [address] [facility] [place] [address] 01/29/2025 4:30 PM EDT Routine [facility] FNR OB [address] [place] [address] Flaquita Banuelos, CN [address] [facility] [place] [address] 02/06/2025 4:30 PM EDT Routine [facility] FNR OB [address] [place] [address] Flaquita Banuelos, CNM [address] [facility] [place] [address] 02/12/2025 4:30 PM EDT Routine [facility] FNR OB [address] [place] [address] Flaquita Banuelos, CN [address] [facility] [place] [address] documented as of this encounter Visit Diagnoses Not on filedocumented in this encounter Care Teams Dentist Private Practice Relationship Specialty Start Date End Date Unallocated, Noms Provider, [address] [place] [address] PCP - General 04/16/23 Awilda Crenshaw, DO [address] [place] [address] PCP - Cullen [employer] 06/16/23 Flaquita Banuelos CNM [address] [place] [address] Obstetrics and Gynecology 02/10/23 documented as of this encounter
--- OUTSIDE RECORDS SUMMARY | 2025-01-09 07:01 | XMS_ITS | Encounter Summary ---
Author Organization [facility] Address [address] [place] [address] Care Team Providers Care Airplane Rental Clerk Name Role Phone Flaquita Banuelos CNM Unavailable [phone] Unallocated, Noms Provider Primary Care Provi mart Encounter Details Date Type Department Care Team (Late st Contact Info) Description 01/04/2025 Results Follow-Up [facility] FNR OB [address] [place] [address] Flaquita Banuelos, CNM [address] [place], [place] [phone] Social History Tobacco Use Types Packs/Day Years [...] often do you attend chur ch or rastafarian services? More than 4 times per year 06/07/2024 Do you belong to any clubs o r organizations such as orthodox groups, unions, fraternal or athletic groups, or [...] Recorded Patient Health Questionnaire-2 Score 0 12/07/2024 [facility] of Occupat ional Health - [...] place to sleep or slept in a fci (including now)? No 04/09/2023 Housing Stability Vital [...] in the past 12 m [facility], were you homeless or living in a fci (including now)? No 06/07/2024 Estimated Date of [...] PM EDT Routine N[facility]S FNR OB [address] [place] [address] Flaquita Banuelos, CNM [address] [facility] [place] [address] 01/15/2025 4:30 PM EDT Routine [facility]S FNR OB [address] [facility] [place] [address] Flaquita Banuelos, CNM [address] [facility] [place] [address] 01/18/2025 8:30 AM EDT Office Visit [facility] SWS FM [address] [place] [address] Awilda Crenshaw, DO [address] [place] [address] 01/22/2025 4:30 PM EDT Routine [facility]S FNR OB [address] [facility] [place] [address] Flaquita Banuelos, CNM [address] [facility] [place] [address] 01/29/2025 4:30 PM EDT Routine [facility]S FNR OB [address] [facility] [place] [address] Flaquita Banuelos, CNM [address] [facility] [place] [address] 02/06/2025 4:30 PM EDT Routine [facility]S FNR OB [address] [facility] [place] [address] Flaquita Banuelos, CNM [address] [facility] [place] [address] 02/12/2025 4:30 PM EDT Routine [facility] FNR OB [address] [facility] [place] [address] Flaquita Banuelos CNM [address] [place], [place] [address] documented as of this encounter Visit Diagnoses Not on filedocumented in this encounter Care Teams Airplane Rental Clerk Relationship Specialty Start Date End Date Unallocated, Noms Provider, [address] [place] [address] PCP - General 04/16/23 Flaquita Banuelos CNM [address] [place] [address] Obstetrics and Gynecology 02/10/23 documented as of this encounter
--- OUTSIDE RECORDS SUMMARY | 2025-01-09 07:01 | XMS_ITS | Encounter Summary ---
Author Organization [facility] Address [address] [place] [address] Care Team Providers Care Project Management Consultant Name Role Phone Flaquita Banuelos CN Unavailable [phone] Unallocated, Noms Provider Primary Care Provi mart Encounter Details Date Type Department Care Team (Late st Contact Info) Description 01/05/2025 Orders Only [facility] FNR OB [address] [place] [address] Flaquita Banuelos, CNM [address] [place], [place] [address] with type 2 diabetes mellitus in third [...] How often do you attend chur or taoism services? More than 4 times per year 06/07/2024 Do you belong to any clubs o r organizations such as amish groups, unions, fraternal or athletic groups, or [...] Recorded Patient Health Questionnaire-2 Score 0 12/07/2024 [facility] of Occupat ional Health - Occupational Stress [...] any time in the past 12 m [facility], were you homeless or [...] as of this encounter Progress Notes * Abby Saul MA - 01/05/2025 11:39 AM EDT Growth order documented in this encounter Plan of Treatment Upcoming Encounters Date Type Department Care Team (Late st Contact Info) Description 01/09/2025 4:00 PM EDT Routine [facility] FNR OB [address] [facility] [place] [address] Flaqutia Banuelos, CNM [address] [facility] [place] [place] [address] 01/15/2025 4:30 PM EDT Routine N[facility] FNR OB [address] [facility] [place] [address] Flaquita Banuelos, CNM [address] [facility] [place], [place] [address] 01/18/2025 8:30 AM EDT Office Visit [facility] S[facility] FM [address] [place] [address] Awilda Crenshaw, DO [address] [place] [address] 01/22/2025 4:30 PM EDT Routine [facility] FNR OB [address] [facility] [place] [address] Flaquita Banuelos, CNM [address] [facility] [place], [place] [address] 01/29/2025 4:30 PM EDT Routine [facility] FNR OB [address] [facility] [place] [address] Flaquita Banuelos, CNM [address] [facility] [place], [place] [address] 02/06/2025 4:30 PM EDT Routine [facility] FNR OB [address] [facility] [place] [address] Flaquita Banuelos, CNM [address] [place], [place] [address] 02/12/2025 4:30 [place] [address] [place] [address] Flaquita Banuelos CNM [address] [place], [place] [address] Scheduled Orders Name Type Priority Associated Diagnoses Orde r Schedule US OB SCAN FOR GROWTH Imaging Routine with type 2 diabetes mellitus in third trimester Expected: 01/05/2025, Expires: 01/05/2026 documented as of this encounter Visit Diagnoses Diagnosis with type 2 diabetes mellitus in third trimester documented in this encounter Care Teams Project Management Consultant Relationship Specialty Start Date End Date Unallocated, Noms Provider, [address] [place] [address] PCP - General 04/16/23 Flaquita Banuelos CNM [address] [place] [address] Obstetrics and Gynecology 02/10/23 documented as of this encounter
--- OUTSIDE RECORDS SUMMARY | 2025-01-09 07:01 | XMS_ITS | Encounter Summary ---
Author Organization [facility] tem Address [id number] [address] [place] [address] Care Team Providers Care Parole Hearing Officer Name Role Phone Flaquita Banuelos BAMBI-CNM Primary Care Provider [phone] Encounter Details Date Type Department Care Team (Late st Contact Info) Description 09/11/2024 Orders Only Maternal- Medicine at [facility] [address] [place] [phone] Yudelka Randall, SABRINA with type 2 diabetes [...] BLOOD ORDERABLES Final Result Performing Organization Address [facility] Co de Phone Number MANUALLY TRANSCRIBED RESULTS * Protein creat ratio (08/30/2024) 08/30/2024 us Svetlana E Lavoy PA-C URINE ORDERABLES Final Resu lt Performing Organization Address [facility] Co de Phone Number SUNQUEST * Thyroid profile includes TSH FT4 (08/30/2024) 08/30/2024 us Svetlana E Lavoy PA-C LAB BLOOD ORDERABLES Final Result Performing Organization Address [facility] Phone Number MANUALLY TRANSCRIBED RESULTS documented in this encounter Visit Diagnoses Diagnosis with type 2 diabetes mellitus in second trimester documented in this encounter Additional Health Concerns Assessment Noted Time PHQ-9 Depression Total Score: 0 03/03/20 17 3:00 PM EDT documented as of this encounter Care Teams Parole Hearing Officer Relationship Specialty Start Date End Date Flaquita Banuelos APRN-CNM [address] [place] [address] PCP - General Nurse Operating Systems Programmer 04/15/18 documented as of this encounter
--- OUTSIDE RECORDS SUMMARY | 2025-01-09 07:01 | XMS_ITS | Encounter Summary ---
Author Organization [facility] tem Address [id number] [address] [place] [address] Care Team Providers Care Planning Manager Name Role Phone Flaquiat Banuelos BAMBI-CNM Primary Care Provider [phone] Encounter Details Date Type Department Care Team (Late st Contact Info) Description 09/18/2024 Orders Only [facility] [address] [place] [address] External, Scanning Provider Social History [...] Scanning Provider External ECG ORDERABLES Final Result [facility] [address] [place] [address] documented in this encounter Visit Diagnoses Not on filedocumented in this encounter Additional Health Concerns Assessment Noted Time PHQ-9 Depression Total Score: 0 03/03/20 17 3:00 PM EDT documented as of this encounter Care Teams Planning Manager Relationship Specialty Start Date End Date Flaquita Banuelos APRN-CNM [address] [place] [address] PCP - General Nurse Hand Printed Circuit Board Assembler 04/15/18 documented as of this encounter
--- OUTSIDE RECORDS SUMMARY | 2025-01-09 07:01 | XMS_ITS | Encounter Summary ---
Author Organization [facility] Address [address] [place] [address] Care Team Providers Care Cone Picker Name Role Phone Flaquita Banuelos CNM Unavailable [phone] Unallocated, Noms Provider Primary Care Provi mart Encounter Details Date Type Department Care Team (Late st Contact Info) Description 01/01/2025 Bamboo flowsheet [facility] [address] [place] [phone] Flaquita Banuelos, CNM [address] [place], [place] [id number] Social History Tobacco Use Types Packs/Day Years [...] How often do you attend chur or denominational services? More than 4 times per year 06/07/2024 Do you belong to any clubs o r organizations such as scientology groups, unions, fraternal or athletic groups, or [...] Recorded Patient Health Questionnaire-2 Score 0 12/07/2024 [facility] of Occupat ional Health - [...] PM EDT Routine [facility] OB [address] [place] [address] Flaquita Banuelos, CNM [address] [place] [address] 01/15/2025 4:30 PM EDT Routine [facility] [address] [facility] [place] [address] Flaquita Banuelos, CNM [address] [place] [address] 01/18/2025 8:30 AM EDT Office Visit [facility] [address] [place] [address] Awilda Crenshaw, DO [address] [place] [address] 01/22/2025 4:30 PM EDT Routine [facility] OB [address] [facility] [place] [address] Flaquita Banuelos, CNM [address] [place] [address] 01/29/2025 4:30 PM EDT Routine [facility] OB [address] [facility] [place] [address] Flaquita Banuelos, CN [address] [place] [address] 02/06/2025 4:30 PM EDT Routine [facility] [address] [facility] [place] [address] Flaquita Banuelos, CNM [address] [place] [address] 02/12/2025 4:30 PM EDT Routine [facility] OB [address] [facility] [place] [address] Flaquita Banuelos CNM [address] [place], [place] [id number] documented as of this encounter Visit Diagnoses Not on filedocumented in this encounter Care Teams Cone Picker Relationship Specialty Start Date End Date Unallocated, Noms Provider, [address] [place] [address] PCP - General 04/16/23 Flaquita Banuelos CNM [address] [place] [address] Obstetrics and Gynecology 02/10/23 documented as of this encounter
[2025-01-09 07:05] VITALS: BP 122/74; PULSE 92
== END 2025-01-09 07:26 | disposition home or self-care (01) ==
LOC: FBCO 06:59 → FBC 07:01
PROVIDERS: Visit Provider Obstetrics & Gynecology
DX: O24.313 Unspecified pre-existing diabetes mellitus in pregnancy, third trimester (principal); Z3A.34 34 weeks gestation of pregnancy
CPT/HCPCS: 59025

== ENCOUNTER 2025-01-12 07:02 | Outpatient (OUT) | payer BC, SELFPAY ==
--- OUTSIDE RECORDS SUMMARY | 2025-01-01 16:30 | XMS_ITS | Encounter Summary ---
Author Organization [facility] Address [address] [place] [address] Care Team Providers Care Aws Consultant Name Role Phone Flaquita Banuelos CN Unavailable [phone] Unallocated, Noms Provider Primary Care Provi mart Encounter Details Date Type Department Care Team (Latest Contact Info) Description 01/01/2025 4:30 PM EDT Routine [facility] [address] [place] [address] Flaquita Banuelos, CNM [address] [place], [place] [phone] Screening for iron deficiency anemia (Primary Dx); [...] How often do you attend chur or mu-ism services? More than 4 times per year 06/07/2024 Do you belong to any clubs o r organizations such as hoahaoism groups, unions, fraternal or athletic groups, or [...] Recorded Patient Health Questionnaire-2 Score 0 12/07/2024 [facility] [place] of Occupat ional Health - Occupational Stress [...] place to sleep or slept in a senior living (including now)? No 04/09/2023 Housing Stability Vital Sign Answer Raul e Recorded In the last 12 months, was t here a time when you were not able to pay the mortgage or rent on time? No 06/07/2024 In the past 12 months, how m any times have you moved where you were living? 0 06/07/2024 At any time in the past 12 m [facility], were you homeless or living in a senior living (including now)? No 06/07/2024 Estimated Date of [...] Care Team (Late st Contact Info) Description 01/15/2025 4:30 PM EDT Routine [facility] [address] [place] [address] Flaquita Banuelos, [place] [id number] [place] [address] 01/18/2025 8:30 AM EDT Office Visit [facility] [address] [place] [address] Awilda Crenshaw, DO [address] [place] [address] 01/22/2025 4:30 PM EDT Routine [facility] [address] [place] [address] Flaquita Banuelos, [facility] [address] [place] [address] 01/29/2025 4:30 PM EDT Routine [facility] [address] [place] [address] Flaquita Banuelos, [facility] [address] [place] [address] 02/06/2025 4:30 PM EDT Routine [facility] [address] [place] [address] Flaquita Banuelos, [facility] [address] [place] [address] 02/12/2025 4:30 PM EDT Routine [facility] OB [facility] [place] [address] Flaquita Banuelos CNM [address] [place], [place] [phone] documented as of this encounter Procedures Procedure Name Priority Date/Time Associated Diagnosis Comments CULTURE, URINE, ROUTINE Routine 01/01/2025 5:00 PM EDT Dysuria documented in this encounter Results * Urine culture (01/01/2025 5:00 PM EDT) MICRO NUMBER [id number] [facility] SPECIMEN QUALITY Adequate QUEST SOURCE: (QUEST) [...] Performing Organization Information Site ID: QPT Name: [facility] Address: [address] [place] [address], [address] [place] [id number] Director: Devendra Aguilar MD us Flaquita Banuelos CNM LAB MICROBIOLOGY - GENERAL O RDERABLES Final Result [facility] documented in this encounter Visit Diagnoses Diagnosis Screening for iron deficiency anemia- Primary Dysuria documented in this encounter Care Teams Aws Consultant Relationship Specialty Start Date End Date Unallocated, Noms Provider, [address] [place] [address] PCP - General 04/16/23 Flaquita Banuelos CNM [address] [place], [place] [phone] Obstetrics and Gynecology 02/10/23 documented as of this encounter
--- OUTSIDE RECORDS SUMMARY | 2025-01-09 16:00 | XMS_ITS | Encounter Summary ---
Author Organization [facility] Address [address] [place] [address] Care Team Providers Care Track Repairer Helper Name Role Phone Flaquita Banuelos CN Unavailable [phone] Unallocated, Noms Provider MD Primary Care Provi mart Encounter Details Date Type Department Care Team (Latest Contact Info) Description 01/09/2025 4:00 PM EDT Routine [facility] OB [address] [place] [address] Flaquita Banuelos, CNM [address] [place], [place] [phone] 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 mellitus treated with insulin ([facility]) (Primary Dx); Encounter for care of first [...] Recorded Patient Health Questionnaire-2 Score 0 12/07/2024 [facility] [place] of Occupat ional Health - Occupational Stress [...] place to sleep or slept in a detention (including now)? No 04/09/2023 Housing Stability Vital Sign Answer Raul e Recorded In the last 12 months, was t here a time when you were not able to pay the mortgage or rent on time? No 06/07/2024 In the past 12 months, how m any times have you moved where you were living? 0 06/07/2024 At any time in the past 12 m [facility], were you homeless or living in a detention (including now)? No 06/07/2024 Estimated Date of [...] PM EDT Routine [facility] OB [address] [place] [address], [place] [address] Flaquita Banuelos CNM [address] [place] [address], [place] [address] 01/18/2025 8:30 AM EDT Office Visit [facility] [address] [place] [address] Awilda Crenshaw DO [address] [place] [address] 01/22/2025 4:30 PM EDT Routine [facility] OB [address] [facility] [place] [address] Flaquita Banuelos CNM [address] [facility] [place] [address] 01/29/2025 4:30 PM EDT Routine [facility] OB [address] [facility] [place] [address] Flaquita Banuelos CNM [address] [facility] [place] [address] 02/06/2025 4:30 PM EDT Routine [facility] OB [address] [place] [address], [place] [address] Flaquita Banuelos CNM [address] [place] [address], [place] [address] 02/12/2025 4:30 PM EDT Routine [facility] OB [address] [place] [address] Flaquita Banuelos CNM [address] [place], [place] [address] documented as of this encounter Visit Diagnoses Diagnosis 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 mellitus treated with insulin ([facility])- Primary Encounter for care of first , third trimester documented in this encounter Care Teams Track Repairer Helper Relationship Specialty Start Date End Date Unallocated, Noms Provider, [place] [address] PCP - General 04/16/23 Flaquita Banuelos CNM [address] [place], [place] [address] Obstetrics and Gynecology 02/10/23 documented as of this encounter
--- NOTE | 2025-01-12 | US_ITS ---
[place] [id number] Patient Name: REGINALD SMALL MRN: [id number] date: 1995 Sex: F [facility]igned [facility] Current Patient Location[place] [facility] Accession/Order Number: [id number] Exam Date: 01/12/2025 11:54 Report Date: 01/12/2025 12:00 At the request of: NICK BOWEN DO Procedure: US OB BPP w non-stress CLINICAL INFORMATION: TYPE ll diabetes mellitus O24.113 ULTRASOUND OB GROWTH COMPARISON: None There is a single live intrauterine gestation in cephalic presentation. There is cardiac and somatic activity with heart rate of 150 bpm. The amniotic fluid index measures 9.7 cm which is in low-normal range (5th percentile 7.8 cm). The following measurements were obtained: Biparietal diameter 8.9 cm 35 weeks 5 days 82% Head circumference 31.2 cm 34 weeks 6 days 22% Abdominal circumference 32.5 cm 36 weeks 3 days 93% Femur length 6.8 cm 35 weeks 0 days 53% The composite ultrasound age based on these measurements is 35 weeks 4 days +/- 2 weeks 3 days. The estimated date of delivery is February 12, 2025. The estimated weight is 6 lbs. 2 oz. +/- 15 ounces (80%). US/US OB growth IMPRESSION: SINGLE LIVE UTERINE GESTATION WITH ULTRASOUND AGE OF 35 WEEKS 4 DAYS +/- 2 WEEKS 3 DAYS. BIOPHYSICAL PROFILE: COMPARISON: 01/05/2025 FINDINGS: TONE: 1 or more episodes of activity extension and flexion of extremity or opening and closing of the hand [Y] 2/2 GROSS BODY MOVEMENTS: 3 or more discrete body or limb movements [Y] 2/2 BREATHING MOVEMENTS: 1 or more episodes of breathing lasting at least 30 seconds [Y] 2/2 DL: A single deepest vertical pocket of amniotic fluid greater than 2 cm [Y] 2/2 DL: 9.7 cm Total score: 8/8 IMPRESSION: NORMAL BIOPHYSICAL PROFILE. Impression dictated by: Elle Mcleod M.D. 01/12/2025 12:00 PM Dictation Location: [place] [address] Electronically authenticated by: [id number] Y Date: 01/12/2025 12:00
--- NOTE | 2025-01-12 | US_ITS ---
[address] [address] Patient Name: REGINALD SMALL MRN: [facility]:[id number] date: 1995 Sex: F Assigned Patient Location: [facility] Current Patient Location: [facility] Accession/Order Number: [id number] Exam Date: 01/12/2025 11:54 Report Date: 01/12/2025 12:00 At the request of: NICK BOWEN DO Procedure: US OB BPP w non-stress CLINICAL INFORMATION: TYPE ll diabetes mellitus O24.113 ULTRASOUND OB GROWTH COMPARISON: None There is a single live intrauterine gestation in cephalic presentation. There is cardiac and somatic activity with heart rate of 150 bpm. The amniotic fluid index measures 9.7 cm which is in low-normal range (5th percentile 7.8 cm). The following measurements were obtained: Biparietal diameter 8.9 cm 35 weeks 5 days 82% Head circumference 31.2 cm 34 weeks 6 days 22% Abdominal circumference 32.5 cm 36 weeks 3 days 93% Femur length 6.8 cm 35 weeks 0 days 53% The composite ultrasound age based on these measurements is 35 weeks 4 days +/- 2 weeks 3 days. The estimated date of delivery is February 12, 2025. The estimated weight is 6 lbs. 2 oz. +/- 15 ounces (80%). US/US OB BPP w non-stress IMPRESSION: SINGLE LIVE UTERINE GESTATION WITH ULTRASOUND AGE OF 35 WEEKS 4 DAYS +/- 2 WEEKS 3 DAYS. BIOPHYSICAL PROFILE: COMPARISON: 01/05/2025 FINDINGS: TONE: 1 or more episodes of activity extension and flexion of extremity or opening and closing of the hand [Y] 2/2 GROSS BODY MOVEMENTS: 3 or more discrete body or limb movements [Y] 2/2 BREATHING MOVEMENTS: 1 or more episodes of breathing lasting at least 30 seconds [Y] 2/2 DL: A single deepest vertical pocket of amniotic fluid greater than 2 cm [Y] 2/2 DL: 9.7 cm Total score: 8/8 IMPRESSION: NORMAL BIOPHYSICAL PROFILE. Impression dictated by: Elle Mcleod M.D. 01/12/2025 12:00 PM Dictation Location: [place] [address] Electronically authenticated by: [id number] Y Date: 01/12/2025 12:00
--- OUTSIDE RECORDS SUMMARY | 2025-01-12 07:04 | XMS_ITS | Encounter Summary ---
Author Organization [facility] Address [address] [place] [address] Care Team Providers Care Drill Press Operator Helper Name Role Phone Flaquita Banuelos CNM Unavailable [phone] Unallocated, Noms Provider Primary Care Provi mart Awilda Crenshaw DO Unavailable [phone] Encounter Details Date Type Department Care Team (Late st Contact Info) Description 11/03/2024 [facility] [address] [place] [address] Awilda Crenshaw, DO [address] [facility] [address] [place] [address] Social History Tobacco Use Types Packs/Day Years [...] How often do you attend chur or church services? More than 4 times per year [...] Recorded Patient Health Questionnaire-2 Score 0 10/09/2024 [facility] [place] of Occupat ional Health - Occupational Stress [...] any time in the past 12 m [facility], were you homeless or living in a [...] FNR OB [address] [place] [address] Flaquita Banuelos, CN [address] [facility] [place] [address] 01/18/2025 8:30 AM EDT Office Visit [facility] [address] [place] [address] Awilda Crenshaw, DO [address] [place] [address] 01/22/2025 4:30 PM EDT Routine [facility] FNR OB [address] [place] [address] Flaquita Banuelos, CN [address] [facility] [place] [address] 01/29/2025 4:30 PM EDT Routine [facility]NR OB [address] [place] [address] Flaquita Banuelos, CN [address] [facility] [place] [address] 02/06/2025 4:30 PM EDT Routine [facility]NR OB [address] [place] [address] Flaquita Banuelos, CN [address] [facility] [place] [address] 02/12/2025 4:30 PM EDT Routine [facility] FNR OB [address] [place] [address] Flaquita Banuelos, CN [address] [facility] [place] [address] documented as of this encounter Visit Diagnoses Not on filedocumented in this encounter Care Teams Drill Press Operator Helper Relationship Specialty Start Date End Date Unallocated, Noms MD Dian [address] [place] [address] PCP - General 04/16/23 Awilda Crenshaw DO [address] [facility] [address] [place] [address] PCP - [place] [employer] 06/16/23 Flaquita Banuelos CNM [address] [place] [address] Obstetrics and Gynecology 02/10/23 documented as of this encounter
--- OUTSIDE RECORDS SUMMARY | 2025-01-12 07:04 | XMS_ITS | Encounter Summary ---
Author Organization [facility] Address [address] [place] [address] Care Team Providers Care Horse Shoer Name Role Phone Flaquita Banuelos CNM Unavailable [phone] Unallocated, Noms Provider Primary Care Provi mart Awilda Crenshaw DO Unavailable [phone] Encounter Details Date Type Department Care Team (Late st Contact Info) Description 04/16/2023 Abstract [facility] [address] [facility] [address] [place] [address] Awilda Crenshaw, [address] [facility] [address] [place] [address] Social History Tobacco Use Types Packs/Day Years [...] any clubs o r organizations such as taoist groups, unions, fraternal or athletic groups, or [...] Patient Health Questionnaire-2 Score 0 04/16/2023 [facility] of Occupat ional Health - Occupational [...] in a residential (including now)? No 04/09/2023 Comments No Sex [...] OB [address] [place] [address] Flaquita Banuelos, CNM [address] [place] [address] 01/18/2025 8:30 AM EDT Office Visit [facility] [address] [place] [address] Awilda Crenshaw, DO [address] [place] [address] 01/22/2025 4:30 PM EDT Routine [facility] FNR OB [address] [place] [address] Flaquita Banuelos, CN [address] [place] [address] 01/29/2025 4:30 PM EDT Routine [facility] FNR OB [address] [place] [address] Flaquita Banuelos, CN [address] [place] [address] 02/06/2025 4:30 PM EDT Routine [facility] FNR OB [address] [place] [address] Flaquita Banuelos, CNM [address] [place] [address] 02/12/2025 4:30 PM EDT Routine [facility] FNR OB [address] [place] [address] Flaquita Banuelos, CN [address] [place] [address] documented as of this encounter Visit Diagnoses Not on filedocumented in this encounter Care Teams Horse Shoer Relationship Specialty Start Date End Date Unallocated, Noms Provider, [address] [place] [address] PCP - General 04/16/23 Awilda Crenshaw DO [address] [facility] [address] [place] [address] PCP - [place] Commercial 06/16/23 Flaquita Banuelos CNM [address] [place] [address] Obstetrics and Gynecology 02/10/23 documented as of this encounter
--- OUTSIDE RECORDS SUMMARY | 2025-01-12 07:04 | XMS_ITS | Encounter Summary ---
Author Organization [facility] Address [address] [place] [address] Care Team Providers Care Test Engineer Nuclear Equipment Name Role Phone Flaquita Banuelos CNM Unavailable [phone] Unallocated, Noms Provider Primary Care Provi mart Encounter Details Date Type Department Care Team (Late st Contact Info) Description 01/09/2025 Bamboo flowsheet [facility] FNR OB [address] [place] [address] Flaquita Banuelos, CNM [address] [place], [place] [address] Social History Tobacco Use Types Packs/Day Years [...] How often do you attend chur or zoroastrianism services? More than 4 times per year [...] Recorded Patient Health Questionnaire-2 Score 0 12/07/2024 [facility] of Occupat ional Health - Occupational Stress [...] PM EDT Routine [facility] FNR OB [address] [place] [address] Flaquita Banuelos, CNM [address] [place] [address] 01/18/2025 8:30 AM EDT Office Visit [facility] SWS FM [address] [place] [address] TristonAwilda carr, DO [address] [place] [address] 01/22/2025 4:30 PM EDT Routine [facility] FNR OB [address] [facility] [place] [address] Flaquita Banuelos, CNM [address] [place] [address] 01/29/2025 4:30 PM EDT Routine [facility] FNR OB [address] [facility] [place] [address] Flaquita Banuelos, CN [address] [place] [address] 02/06/2025 4:30 PM EDT Routine [facility] FNR OB [address] [facility] [place] [address] Flaquita Banuelos, CN [address] [place] [address] 02/12/2025 4:30 PM EDT Routine [facility] FNR OB [address] [facility] [place] [address] Flaquita Banuelos, CNM [address] [place] [address] documented as of this encounter Visit Diagnoses Not on filedocumented in this encounter Care Teams Test Engineer Nuclear Equipment Relationship Specialty Start Date End Date Unallocated, Noms Provider, [address] [place] [address] PCP - General 04/16/23 Flaquita Banuelos CNM [address] [place], [place] [address] Obstetrics and Gynecology 02/10/23 documented as of this encounter
--- OUTSIDE RECORDS SUMMARY | 2025-01-12 07:04 | XMS_ITS | Encounter Summary ---
Author Organization [facility] Address [address] [place] [address] Care Team Providers Care Director Of Individual Giving Name Role Phone Vin Flaquita Mccoy CNM Unavailable Unallocated, Noms Provider Primary Care Provi mart Encounter Details Date Type Department Care Team (Late st Contact Info) Description 01/05/2025 Clinisync Result Encounter N[facility]S External Department Unsolicited Nick Sam, DO [address] [facility] [place] [address] Social History Tobacco Use Types Packs/Day Years [...] How often do you attend chur or mandaeism services? More than 4 times per year [...] Recorded Patient Health Questionnaire-2 Score 0 12/07/2024 [facility] of Occupat ional Health - Occupational [...] any time in the past 12 m [facility], were you homeless or living [...] 4:30 PM EDT Routine [facility] FNR OB [address] [place] [address] Flaquita Banuelos, CNM 14[address] [facility] [place] [address] 01/18/2025 8:30 AM EDT Office Visit [facility] SWS FM [address] [place] [address] Awilda Crenshaw, DO [address] [place] [address] 01/22/2025 4:30 PM EDT Routine [facility] FNR OB [address] [place] [address] Flaquita Banuelos, CNM [address] [facility] [place] [address] 01/29/2025 4:30 PM EDT Routine [facility] FNR OB [address] [place] [address] Flaquita Banuelos, CN [address] [facility] [place] [address] 02/06/2025 4:30 PM EDT Routine [facility] FNR OB [address] [place] [address] Flaquita Banuelos, CNM [address] [facility] [place] [address] 02/12/2025 4:30 PM EDT Routine [facility] FNR OB [address] [place] [address] Flaquita Banuelos, CNM [address] [facility] [place] [address] documented as of this encounter Procedures Procedure Name Priority Date/Time Associated Diagnosis Comments US OB BPP W NON-STRESS 01/05/2025 3:27 PM EDT documented in this encounter Results * US OB BPP W NON-STRESS (01/05/2025 3:27 PM EDT) Anatomical Region Laterality Modality Other 01/05/2025 3:27 PM EDT Narrative 01/05/2025 3:29 PM EDT [address] [address] Ultrasound Report Signed Patient: REGINALD REYES MR#: [id number] : 1995 Acct:[id number] Age/Sex: 29 / F ADM Date: 01/05/25 Loc: US Attending Dr: Nick Sam D.O. Ordering Physician: Nick Sam D.O. Date of Service: 01/05/25 Procedure(s): US OB BPP w non-stress Accession Number(s): [id number] cc: Nick Sam D.O.; Physician,Non-Staff [place] [id number] Patient Name: REGINALD REYES MRN: [facility]:[id number] date: 1995 Sex: F Assigned Patient Location: [facility] Current Patient Location: [place] Accession/Order Number: [id number] Exam Date: 01/05/2025 15:26 Report Date: 01/05/2025 [...] Love M.D. 01/05/2025 3:27 PM Dictation Location: [place] [address] Electronically authenticated by: [id number] Y Date: 01/05/2025 15:27 Dictated By: Pradip Love D.O. Signed By: 01/05/25 1529 DD/ 1527 TD/TT: Supply Cataloguer: Procedure Note Radiology, Radiologist, - 01/05/2025 [place] [address] Ultrasound Report Signed Patient: REGINALD REYES MMR#: [id number] : 1995Acct:[id number] Age/Sex: 29 / FADM Date: 01/05/25 Loc: US Attending Dr: Nick Sam D.O. Ordering Physician: Nick Sam D.O. Date of Service: 01/05/25 Procedure(s): US OB BPP w non-stress Accession Number(s): [id number] cc: Nick Sam D.O.; Physician,Non-Staff Mag[place] [id number] Patient Name: REGINALD REYES MRN: [facility]:[id number] date: 1995 Sex: F Assigned Patient Location: [facility] Current Patient Location: US Accession/Order Number: [id number] Exam Date: 01/05/2025 15:26 Report Date: 01/05/2025 [...] Love M.D. 01/05/2025 3:27 PM Dictation Location: [place] [address] Electronically authenticated by: [id number] Y Date: 5:27 Dictated By: Pradip Love D.O. Signed By:01/05/25 1529 DD/ 1527 TD/TT: Supply Cataloguer: us Nick Sam DO [facility] Final Result documented in this encounter Visit Diagnoses Not on filedocumented in this encounter Care Teams Director Of Individual Giving Relationship Specialty Start Date End Date Unallocated, Noms Provider, [place] [address] PCP - General 04/16/23 Flaquita Banuelos CNM [address] [place] [address] Obstetrics and Gynecology 02/10/23 documented as of this encounter
--- OUTSIDE RECORDS SUMMARY | 2025-01-12 07:04 | XMS_ITS | Clinical Summary ---
Author Organization [facility] Address [id number] [address] [place] [address] Care Team Providers Care Mid Level Provider Name Role Phone SheebaWanda sanchezDaríolibby LACY-CNM Primary Care Provider [phone] Allergies No known active allergies Medications metFORMIN [...] Cardiology [address] [place] [address] Robby Quezada MD Goyal, Vishal, MD Long Q-T syndrome (Primary Dx); Hx of prolonged Q-T interval on ECG 11/07/2024 Telephone [facility] [address] [place] [address] Abby Andino CMA 11/07/2024 Travel 11/06/2024 Travel 10/31/2024 8:00 AM EDT - 10/31/2024 11:59 PM EDT Hospital Encounter [facility] - Ultrasound [address] [place] [address] Encounter for other screening follow-up; Pre-existing type [...] 9:07 AM EDT) Anatomical Region Laterality Modality OB-TELEVISION CABINET FINISHER Ultrasound 10/31/2024 8:09 AM EDT Narrative 10/31/2024 3:59 PM EDT NAME: ERIC MONTELONGO : 1995 SEX: F Accession Number: [id number] ORDERING PHYSICIAN: JAXON TURCIOS REFERRING PHYSICIAN: DARÍO BANUELOS Coding ----- --------- Procedures 99681: Follow-up Ultrasound, per fetus 37490: Echocardiography, , cardiovascular system, real time with [...] 1 lb 10 oz EFW by Hadlock ([id number]) Head / Face / Neck Biometry: Cephalic index 0.78 45% Nicolaides Rocket Motor Mechanic 6.6 mm CM 3.9 mm 4% Nicolaides [...] view. RVOT view. LVOT view. 3-vessel view. 9-rjlzgx-cbtrswz view. Great vessels. Right lung. Left lung. [...] normal RVOT view normal 3-vessel view normal 0-qyzpak-pvtuzop view normal Aortic arch view documented previously [...] MONTELONGO : 1995 SEX: F Accession Number: [id number] ORDERING PHYSICIAN: JAXON TURCIOS REFERRING PHYSICIAN: DARÍO BANUELOS Coding ----- --------- Procedures [id number]: Follow-up Ultrasound, per fetus 21103: Echocardiography, , cardiovascular system, real timewith image [...] 1 lb 10 oz EFW by Hadlock ([id number]) Head / Face / Neck Biometry: Cephalic index 0.78 45% Nicolaides Rocket Motor Mechanic 6.6 mm CM 3.9 mm 4% Nicolaides Extremities / Bony Struc Biometry: FL / BPD 0.73 FL / HC 0.20 FL / AC 0.21 Tibia 38.6 mm 24w 5d 65% Rachelle Anatomy ----- --------- The following structures appear normal: Head/Neck: Cranium. Lateral ventricles. Cavum septi pellucidi. Cerebellum.Cisterna magna. Parenchyma. Face: Lips. Profile. Nose. Nasal bone. Heart/Thorax: 4-chamber view. RVOT view. LVOT view. 3-vessel view.6-lxxaiz-gbxhfth view. Great vessels. Right lung. Left lung. [...] normal RVOT view normal 3-vessel view normal 1-ralwba-zffveza view normal Aortic arch view documented previously [...] byprimary OB provider unless otherwise specified by [facility]. Results forwarded to ordering provider so they can follow up with thepatient as necessary. us Jaxon Turcios MD [facility] ORDERABLES Final Re sult from Last 3 Months Insurance [employer] Care Teams Mid Level Provider Relationship Specialty Start Date End Date Darío Banuelos APRN-CNM [address] [place] [address] PCP - General Nurse Board Handler 04/15/18
--- OUTSIDE RECORDS SUMMARY | 2025-01-12 07:04 | XMS_ITS | Encounter Summary ---
Author Organization [facility] Address [address] [place] [address] Care Team Providers Care Subway Repair Supervisor Name Role Phone Vin Flaquita Mccoy CNM Unavailable [phone] Unallocated, Noms Provider Primary Care Provi mart Encounter Details Date Type Department Care Team (Late st Contact Info) Description 12/29/2024 Clinisync Result Encounter NOMS External Department Unsolicited Nick Sam, DO [address] [facility] [place] [address] Social History Tobacco Use Types Packs/Day Years [...] How often do you attend chur or buddhist services? More than 4 times per year 06/07/2024 Do you belong to any clubs o r organizations such as moravian groups, unions, fraternal or athletic groups, or [...] Recorded Patient Health Questionnaire-2 Score 0 12/07/2024 [facility] of Occupat ional Health [...] any time in the past 12 m [facility], were you homeless or [...] 4:30 PM EDT Routine [facility] FNR OB [address] [place] [address] Flaquita Banuelos, CNM [address] [place] [address] 01/18/2025 8:30 AM EDT Office Visit [facility] SWS FM [address] [place] [address] Awilda Crenshaw, DO [address] [place] [address] 01/22/2025 4:30 PM EDT Routine [facility] FNR OB [address] [facility] [place] [address] Flaquita Banuelos, CNM [address] [place] [address] 01/29/2025 4:30 PM EDT Routine [facility] FNR OB [address] [facility] [place] [address] Flaquita Banuelos, CN [address] [place] [address] 02/06/2025 4:30 PM EDT Routine [facility] FNR OB [address] [facility] [place] [address] Flaquita Banuelos, CNM [address] [place] [address] 02/12/2025 4:30 PM EDT Routine [facility] FNR OB [address] [facility] [place] [address] Flaquita Banuelos, CNM [address] [place] [address] documented as of this encounter Procedures Procedure Name Priority Date/Time Associated Diagnosis Comments US OB BPP W NON-STRESS 12/29/2024 9:36 AM EDT documented in this encounter Results * US OB BPP W NON-STRESS (12/29/2024 9:36 AM EDT) Anatomical Region Laterality Modality Other 12/29/2024 9:36 AM EDT Narrative 12/29/2024 9:38 AM EDT [address] [address] Ultrasound Report Signed Patient: REGINALD REYES MR#: [id number] : 1995 Acct:[id number] Age/Sex: 29 / F ADM Date: 12/29/24 Loc: US Attending Dr: Nick Sam D.O. Ordering Physician: Nick Sam D.O. Date of Service: 12/29/24 Procedure(s): US OB BPP w non-stress Accession Number(s): [id number] cc: Nick Sam D.O.; Physician,Non-Staff [place] [id number] Patient Name: REGINALD REYES MRN: [facility]:[id number] date: 1995 Sex: F Assigned Patient Location: [facility] Current Patient Location: Accession/Order Number: [id number] Exam Date: 12/29/2024 09:34 Report Date: 12/29/2024 [...] Roberson M.D. 12/29/2024 9:36 AM Dictation Location: [place] Electronically authenticated by: [id number] Y Date: 12/29/2024 09:36 Dictated By: Zak Roberson M.D. Signed By: 12/29/2438 DD/ 5 TD/TT: Crm Technical Lead: Procedure Note Radiology, Radiologist, - 12/29/2024 [place] [address] Ultrasound Report Signed Patient: REGINALD REYES MMR#: [id number] : 1995Acct:[id number] Age/Sex: 29 / FADM Date: 12/29/24 Loc: US Attending Dr: Nick Sam D.O. Ordering Physician: Nick Sam D.O. Date of Service: 12/29/24 Procedure(s): US OB BPP w non-stress Accession Number(s): [id number] cc: Nick Sam D.O.; Physician,Non-Staff Magaly [place] [address] Patient Name: REGINALD REYES MRN: [facility]:[id number] date: 1995 Sex: F Assigned Patient Location: [facility] Current Patient Location: Accession/Order Number: [id number] Exam Date: 12/29/2024 09:34 Report Date: 12/29/2024 [...] Roberson M.D. 12/29/2024 9:36 AM Dictation Location: [place] [address] Electronically authenticated by: [id number] Y Date: 9:36 Dictated By: Zak Roberson M.D. Signed By:12/29/2438 DD/ 5 TD/TT: Crm Technical Lead: us Nick Flaco DO [facility] Final Result documented in this encounter Visit Diagnoses Not on filedocumented in this encounter Care Teams Subway Repair Supervisor Relationship Specialty Start Date End Date Unallocated, Noms Provider, [address] [place], [place] [address] PCP - General 04/16/23 Flaquita Banuelos CNM [address] [place] [address] Obstetrics and Gynecology 02/10/23 documented as of this encounter
--- OUTSIDE RECORDS SUMMARY | 2025-01-12 07:04 | XMS_ITS | Encounter Summary ---
Author Organization [facility] Address [address] [place] [address] Care Team Providers Care Director Furniture Name Role Phone Vin Flaquita Mccoy CNM Unavailable [phone] Unallocated, Noms Provider Primary Care Provi mart Encounter Details Date Type Department Care Team (Late st Contact Info) Description 12/27/2024 Results Follow-Up [facility] FNR OB [address] [place] [address] Abby Saul MA Social History [...] How often do you attend chur or episcopalian services? More than 4 times per year 06/07/2024 Do you belong to any clubs o r organizations such as anabaptism groups, unions, fraternal or athletic groups, or [...] Patient Health Questionnaire-2 Score 0 12/07/2024 [facility] of Occupat ional Health - Occupational [...] any time in the past 12 m [facility], were you homeless or living in [...] PM EDT Routine [facility] FNR OB [address] [place] [address] Flaquita Banuelos, CNM [address] [place] [address] 01/18/2025 8:30 AM EDT Office Visit [facility] SWS FM [address] [place] [address] TristonAwilda carr, DO [address] [place] [address] 01/22/2025 4:30 PM EDT Routine [facility] FNR OB [address] [facility] [place] [address] Flaquita Banuelos, CNM [address] [facility] [place] [address] 01/29/2025 4:30 PM EDT Routine [facility] FNR OB [address] [facility] [place] [address] Flaquita Banuelos, CN [address] [facility] [place] [address] 02/06/2025 4:30 PM EDT Routine [facility] FNR OB [address] [facility] [place] [address] Flaquita Banuelos, CNM [address] [facility] [place] [address] 02/12/2025 4:30 PM EDT Routine [facility] FNR OB [address] [facility] [place] [address] Flaquita Banuelos, CNM [address] [facility] [place] [address] documented as of this encounter Visit Diagnoses Not on filedocumented in this encounter Care Teams Director Furniture Relationship Specialty Start Date End Date Unallocated, Noms Provider, [address] [place] [address] PCP - General 04/16/23 Flaquita Banuelos CNM [address] [place] [address] Obstetrics and Gynecology 02/10/23 documented as of this encounter
--- OUTSIDE RECORDS SUMMARY | 2025-01-12 07:04 | XMS_ITS | Encounter Summary ---
Author Organization [facility] Address [address] [place] [address] Care Team Providers Care Shredder Operator Name Role Phone Flaquita Banuelos CNM Unavailable [phone] Unallocated, Noms Provider Primary Care Provi mart Awilda Crensahw DO Unavailable Encounter Details Date Type Department Care Team (Late st Contact Info) Description 10/20/2024 Abstract N[facility] [address] [place] [address] Awilda Crenshaw, DO [address] [facility] [address] [place] [address] Social History Tobacco Use Types Packs/Day Years [...] Recorded Patient Health Questionnaire-2 Score 0 10/09/2024 [facility] of Occupat ional Health - Occupational Stress [...] in the past 12 m [facility], were you homeless or living in [...] FNR OB [address] [place] [address] Flaquita Banuelos, CN [address] [facility] [place] [address] 01/18/2025 8:30 AM EDT Office Visit [facility] SWS FM [address] [place] [address] Awilda Crenshaw, DO [address] [place] [address] 01/22/2025 4:30 PM EDT Routine [facility] FNR OB [address] [place] [address] Flaquita Banuelos, CN [address] [facility] [place] [address] 01/29/2025 4:30 PM EDT Routine [facility]OMS FNR OB [address] [place] [address] Flaquita Banuelos, CN [address] [facility] [place] [address] 02/06/2025 4:30 PM EDT Routine [facility] FNR OB [address] [facility] [address] Flaquita Banuelos, CN [address] [facility] [place] [address] 02/12/2025 4:30 PM EDT Routine [facility] FNR OB [address] [facility] [address] Flaquita Banuelos, CN [address] [facility] [place] [address] documented as of this encounter Visit Diagnoses Not on filedocumented in this encounter Care Teams Shredder Operator Relationship Specialty Start Date End Date Unallocated, Noms MD Dian [address] [place] [address] PCP - General 04/16/23 Awilda Crenshaw DO [address] [facility] [address] [place] [address] PCP - [place] [employer] 06/16/23 Flaquita Banuelos CNM [address] [place] [address] Obstetrics and Gynecology 02/10/23 documented as of this encounter
--- OUTSIDE RECORDS SUMMARY | 2025-01-12 07:04 | XMS_ITS | Encounter Summary ---
Author Organization [facility] Address [address] [place] [address] Care Team Providers Care Engineer/Conductor Name Role Phone Flaquita Banuelos CNM Unavailable [phone] Unallocated, Noms Provider Primary Care Provi mart Encounter Details Date Type Department Care Team (Late st Contact Info) Description 12/20/2024 Results Follow-Up [facility] FNR OB [address] [place] [address] Flaquita Banuelos, CNM [address] [place], [place] [address] Social History Tobacco Use Types Packs/Day Years [...] often do you attend chur ch or orthodoxy services? More than 4 times per year 06/07/2024 Do you belong to any clubs o r organizations such as tenriism groups, unions, fraternal or athletic groups, or [...] Recorded Patient Health Questionnaire-2 Score 0 12/07/2024 [facility] of Occupat ional Health - Occupational [...] a nursing home (including now)? No 04/09/2023 Housing Stability [...] time in the past 12 m [facility], were you homeless or living in a nursing home (including now)? No 06/07/2024 Estimated Date [...] PM EDT Routine [facility]OMS FNR OB [address] [place] [address] Flaquita Banuelos, CNM [address] [place] [address] 01/18/2025 8:30 AM EDT Office Visit [facility] SWS FM [address] [place] [address] TristonAwilda carr, DO [address] [place] [address] 01/22/2025 4:30 PM EDT Routine [facility]S FNR OB [address] [facility] [place] [address] Flaquita Banuelos, CNM [address] [place] [address] 01/29/2025 4:30 PM EDT Routine [facility] FNR OB [address] [facility] [place] [address] Flaquita Banuelos, CNM [address] [place] [address] 02/06/2025 4:30 PM EDT Routine [facility] FNR OB [address] [facility] [place] [address] Flaquita Banuelos, CN [address] [place] [address] 02/12/2025 4:30 PM EDT Routine [facility] FNR OB [address] [facility] [place] [address] Flaquita Banuelos, CNM [address] [place] [address] documented as of this encounter Visit Diagnoses Not on filedocumented in this encounter Care Teams Engineer/Conductor Relationship Specialty Start Date End Date Unallocated, Noms Dian, [address] [place] [address] PCP - General 04/16/23 Flaquita Banuelos CNM [address] [place], [place] [address] Obstetrics and Gynecology 02/10/23 documented as of this encounter
--- OUTSIDE RECORDS SUMMARY | 2025-01-12 07:04 | XMS_ITS | Encounter Summary ---
Author Organization [facility] Address [address] [place] [address] Care Team Providers Care Ibm Websphere Commerce Consultant Name Role Phone Flaquita Banuelos CN Unavailable [phone] Unallocated, Noms Provider Primary Care Provi mart Encounter Details Date Type Department Care Team (Late st Contact Info) Description 01/05/2025 Orders Only [facility] FNR OB [address] [place] [address] Flaquita Banuelos, CNM [address] [place], [place] [address] with type 2 diabetes mellitus in third [...] How often do you attend chur or quaker services? More than 4 times per year [...] Recorded Patient Health Questionnaire-2 Score 0 12/07/2024 [facility] [place] of Occupat ional Health - Occupational Stress [...] any time in the past 12 m [facility], were you homeless or living in [...] EDT Routine NOMS FNR OB [address] [place] [address] Flaquita Banuelos, CNM [address] [place] [address] 01/18/2025 8:30 AM EDT Office Visit [facility] SWS FM [address] [place] [address] Awilda Crenshaw, DO [address] [place] [address] 01/22/2025 4:30 PM EDT Routine NOMS FNR OB [address] [place] [address] Flaquita Banuelos, CNM [address] [place] [address] 01/29/2025 4:30 PM EDT Routine [facility]S FNR OB [address] [place] [address] Flaquita Banuelos, CNM [address] [place] [address] 02/06/2025 4:30 PM EDT Routine [facility]S FNR OB [address] [place] [address] Flaquita Banuelos, CNM [address] [place] [address] 02/12/2025 4:30 PM EDT Routine [facility] FNR OB [address] [place] [address] Flaquita Banuelos, CNM [address] [place], [place] [address] Scheduled Orders Name Type Priority Associated Diagnoses Orde r Schedule US OB SCAN FOR GROWTH Imaging Routine with type 2 diabetes mellitus in third trimester Expected: 01/05/2025, Expires: 01/05/2026 documented as of this encounter Visit Diagnoses Diagnosis with type 2 diabetes mellitus in third trimester documented in this encounter Care Teams Ibm Websphere Commerce Consultant Relationship Specialty Start Date End Date Unallocated, Noms Provider, [address] [place] [address] PCP - General 04/16/23 Flaquita Banuelos CNM [address] [place] [address] Obstetrics and Gynecology 02/10/23 documented as of this encounter
--- OUTSIDE RECORDS SUMMARY | 2025-01-12 07:04 | XMS_ITS | Encounter Summary ---
Author Organization [facility] Address [address] [place] [address] Care Team Providers Care Architectural Technologist Name Role Phone Flaquita Banuelos CNM Unavailable [phone] Unallocated, Noms Provider Primary Care Provi mart Awilda Crenshaw DO Unavailable [phone] Encounter Details Date Type Department Care Team (Late st Contact Info) Description 08/31/2023 Abstract [facility] FM [address] [facility] [address] [place] [address] Awilda Crenshaw, [address] [facility] 230 [place] [address] Social History Tobacco Use Types Packs/Day Years [...] Recorded Patient Health Questionnaire-2 Score 0 04/16/2023 [facility] of Occupat ional Health - Occupational [...] a group home (including now)? No 04/09/2023 Comments No [...] PM EDT Routine [facility] OB [address] [place] [address] Flaquita Banuelos, CNM [address] [place], [place] [address] 01/18/2025 8:30 AM EDT Office Visit [facility] FM [address] [facility] [address] [place] [address] Awilda Crenshaw, [address] [place] [address] [place] [address] 01/22/2025 4:30 PM EDT Routine [facility]NR OB [address] [place] [address] Flaquita Banuelos, CNM [address] [place] [address] 01/29/2025 4:30 PM EDT Routine [facility] OB [address] [place] [address] Flaquita Banuelos, CNM [address] [place] [address] 02/06/2025 4:30 PM EDT Routine [facility] OB [address] [place] [address] Flaquita Banuelos, CNM [address] [place] [address] 02/12/2025 4:30 PM EDT Routine [facility] OB [address] [place] [address] Flaquita Banuelos, CNM [address] [place] [address] documented as of this encounter Visit Diagnoses Not on filedocumented in this encounter Care Teams Architectural Technologist Relationship Specialty Start Date End Date Unallocated, Noms Provider, [address] [place] [address] PCP - General 04/16/23 Awilda Crenshaw DO [address] [place] [address] PCP - [place] [employer] 06/16/23 Flaquita Banuelos CNM [address] [place] [address] Obstetrics and Gynecology 02/10/23 documented as of this encounter
--- OUTSIDE RECORDS SUMMARY | 2025-01-12 07:04 | XMS_ITS | Encounter Summary ---
Author Organization [facility] Address [address] [place] [address] Care Team Providers Care Wind Turbine Technician Name Role Phone Flaquita Banuelos CNM Unavailable Unallocated, Noms Provider Primary Care Provi mart Encounter Details Date Type Department Care Team (Late st Contact Info) Description 12/07/2024 [facility] [address] [place] [phone] Unallocated, Noms Provider, [address] [place], [place] [phone] Social History Tobacco Use Types Packs/Day Years [...] Patient Health Questionnaire-2 Score 0 12/07/2024 [facility] of Occupat ional Health - Occupational Stress [...] any time in the past 12 m [facility], were you homeless or living [...] PM EDT Routine [facility] FNR OB 1479 [place] [address] Flaquita Banuelos, CNM [address] [facility] [place] [address] 01/18/2025 8:30 AM EDT Office Visit [facility] FM [address] [place] [address] [place] [address] Awilda Crenshaw, DO [address] [place] [address] [place] [address] 01/22/2025 4:30 PM EDT Routine [facility] OB [address]79 [place] [address] Flaquita Banuelos, CN [address] [facility] [place] [address] 01/29/2025 4:30 PM EDT Routine [facility]NR OB [address] [place] [address] Flaquita Banuelos, CN [address] [facility] [place] [address] 02/06/2025 4:30 PM EDT Routine [facility] OB [address] [place] [address] Flaquita Banuelos, CN [address] [facility] [place] [address] 02/12/2025 4:30 PM EDT Routine [facility] OB [address] [place] [address] Flaquita Banuelos CNM [address] [place], [place] [address] documented as of this encounter Visit Diagnoses Not on filedocumented in this encounter Care Teams Wind Turbine Technician Relationship Specialty Start Date End Date Unallocated, Noms Provider, [address] [place] [address] PCP - General 04/16/23 Flaquita Banuelos CNM [address] [place] [address] Obstetrics and Gynecology 02/10/23 documented as of this encounter
--- OUTSIDE RECORDS SUMMARY | 2025-01-12 07:04 | XMS_ITS | Encounter Summary ---
Author Organization [facility] Address [address] [place] [address] Care Team Providers Care Mixer And Blender Name Role Phone Flaquita Banuelos CNM Unavailable [phone] Unallocated, Noms Provider Primary Care Provi mart Encounter Details Date Type Department Care Team (Late st Contact Info) Description 01/04/2025 Results Follow-Up [facility] FNR OB [address] [place] [address] Flaquita Banuelos, CNM [address] [place], [place] [address] Social History Tobacco Use Types Packs/Day Years [...] often do you attend chur ch or zoroastrianism services? More than 4 times per year 06/07/2024 Do you belong to any clubs o r organizations such as lutheran groups, unions, fraternal or athletic groups, or [...] Recorded Patient Health Questionnaire-2 Score 0 12/07/2024 [facility] of Occupat ional Health - Occupational [...] any time in the past 12 m [facility], were you homeless or living in [...] PM EDT Routine [facility] FNR OB [address] [place] [address] Flaquita Banuelos, CNM 14[address] [place] [address] 01/18/2025 8:30 AM EDT Office Visit [facility] FM [address] [place] [address] [place] [address] TristonAwilda carr, DO [address] [place] [address] [place] [address] 01/22/2025 4:30 PM EDT Routine [facility] OB [address] [place] [address] Flaquita Banuelos, CNM [address] [place] [address] 01/29/2025 4:30 PM EDT Routine [facility]NR OB [address] [place] [address] lFaquita Banuelos, CNM [address] [place] [address] 02/06/2025 4:30 PM EDT Routine [facility]NR OB [address] [place] [address] Flaquita Banuelos, CN [address] [place] [address] 02/12/2025 4:30 PM EDT Routine [facility] OB [address] [place] [address] Flaquita Banuelos, CNM [address] [place] [address] documented as of this encounter Visit Diagnoses Not on filedocumented in this encounter Care Teams Mixer And Blender Relationship Specialty Start Date End Date Unallocated, Noms Dian, [address] [place] [address] PCP - General 04/16/23 Flaquita Banuelos CNM [address] [place], [place] [address] Obstetrics and Gynecology 02/10/23 documented as of this encounter
--- OUTSIDE RECORDS SUMMARY | 2025-01-12 07:04 | XMS_ITS | Encounter Summary ---
Author Organization [facility] Address [address] [place] [address] Care Team Providers Care Die Storage Clerk Name Role Phone Flaquita Banuelos CNM Unavailable [phone] Unallocated, Noms Provider Primary Care Provi mart Encounter Details Date Type Department Care Team (Late st Contact Info) Description 11/30/2024 [facility] [address] [place] [address] Awilda Crenshaw, DO [address] [place] [address] Social History Tobacco Use Types Packs/Day Years [...] any clubs o r organizations such as restorationist groups, unions, fraternal or athletic groups, or [...] Recorded Patient Health Questionnaire-2 Score 0 10/09/2024 [facility] of Occupat ional Health - Occupational Stress [...] the past 12 m [facility], were you homeless or living in a [...] PM EDT Routine [facility] FNR OB [address] [place] [address] Flaquita Banuelos, CNM 14[address] [place] [address] 01/18/2025 8:30 AM EDT Office Visit [facility] FM [address] [place] [address] [place] [address] TristonAwilda carr Brooks, DO [address] [place] [address] 01/22/2025 4:30 PM EDT Routine [facility] FNR OB [address] [place] [address] Flaquita Banuelos, CNM [address] [place] [address] 01/29/2025 4:30 PM EDT Routine [facility] FNR OB [address] [place] [address] Flaquita Banuelos, CNM [address] [place] [address] 02/06/2025 4:30 PM EDT Routine [facility] FNR OB [address] [place] [address] Flaquita Banuelos, CNM [address] [place] [address] 02/12/2025 4:30 PM EDT Routine [facility] FNR OB [address] [place] [address] Flaquita Banuelos, CNM [address] [place] [address] documented as of this encounter Visit Diagnoses Not on filedocumented in this encounter Care Teams Die Storage Clerk Relationship Specialty Start Date End Date Unallocated, Noms Dian, [address] [place] [address] PCP - General 04/16/23 Flaquita Banuelos CNM [address] [facility] [place], [place] [address] Obstetrics and Gynecology 02/10/23 documented as of this encounter
--- OUTSIDE RECORDS SUMMARY | 2025-01-12 07:04 | XMS_ITS | Encounter Summary ---
Author Organization [facility] Address [id number] [address] [place] [address] Care Team Providers Care Bunch Breaker Machine Operator Name Role Phone Flaquita Banuelos BAMBI-CNM Primary Care Provider [phone] Encounter Details Date Type Department Care Team (Late st Contact Info) Description 09/18/2024 Orders Only [facility] [address] [place] [address] External, Scanning Provider Social History [...] Scanning Provider External ECG ORDERABLES Final Result [facility] [address] [place] [address] documented in this encounter Visit Diagnoses Not on filedocumented in this encounter Additional Health Concerns Assessment Noted Time PHQ-9 Depression Total Score: 0 03/03/20 17 3:00 PM EDT documented as of this encounter Care Teams Bunch Breaker Machine Operator Relationship Specialty Start Date End Date Flaquita Banuelos APRN-CNM [address] [place] [address] PCP - General Nurse Food Management Aide 04/15/18 documented as of this encounter
--- OUTSIDE RECORDS SUMMARY | 2025-01-12 07:04 | XMS_ITS | Encounter Summary ---
Author Organization [facility] Address [id number] [address] [place] [address] Care Team Providers Care Urgent Care Name Role Phone Flaquita Banuelos BAMBI-CNM Primary Care Provider [phone] Encounter Details Date Type Department Care Team (Late st Contact Info) Description 09/11/2024 Orders Only Maternal- Medicine at [facility] [address] [place] [address] Yudelka Randall, SABRINA with type 2 diabetes [...] BLOOD ORDERABLES Final Result Performing Organization Address [facility] Co de Phone Number MANUALLY TRANSCRIBED RESULTS * Protein creat ratio (08/30/2024) 08/30/2024 us Svetlana E Lavoy PA-C URINE ORDERABLES Final Resu lt Performing Organization Address [facility] Co de Phone Number SUNQUEST * Thyroid profile includes TSH FT4 (08/30/2024) 08/30/2024 us Svetlana E Lavoy PA-C LAB BLOOD ORDERABLES Final Result Performing Organization Address [facility] Phone Number MANUALLY TRANSCRIBED RESULTS documented in this encounter Visit Diagnoses Diagnosis with type 2 diabetes mellitus in second trimester documented in this encounter Additional Health Concerns Assessment Noted Time PHQ-9 Depression Total Score: 0 03/03/20 17 3:00 PM EDT documented as of this encounter Care Teams Urgent Care Relationship Specialty Start Date End Date Flaquita Banuelos APRN-CNM [address] [place] [address] PCP - General Nurse Mortgage Coordinator 04/15/18 documented as of this encounter
--- OUTSIDE RECORDS SUMMARY | 2025-01-12 07:05 | XMS_ITS | Clinical Summary ---
Author Organization [facility] Address [address] [place] [address] Care Team Providers Care It Network Administrator Name Role Phone Flaquita Banuelos CNM Unavailable [phone] Unallocated, [facility] Provider MD Primary Care Provi [...] Encounters Date Type Department Care Team Description 01/09/2025 4:00 PM EDT Routine [facility] R OB [address] [place] [address], [place] [address] Flaquita Banuelos CNM 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 mellitus treated with insulin ([facility]) (Primary Dx); Encounter for care of first , third trimester 01/09/2025 Bamboo flowsheet [facility] OB [address] [place] [address], [place] [address] Flaquita Banuelos CNM 01/05/2025 Clinisync Result Encounter NOMS External Department Unsolicited Nick Sam DO 01/05/2025 Orders Only [facility] OB [address] [place] [phone] Flaquita Banuelos CNM with type 2 diabetes mellitus in third trimester 01/04/2025 Results Follow-Up [facility] R OB [address] [place] [address] Flaquita Banuelos CNM 01/01/2025 4:30 PM EDT Routine [facility] R OB [address] [place] [address] Flaquita Banuelos CNM Screening for iron deficiency anemia (Primary Dx); Dysuria 01/01/2025 Bamboo flowsheet [facility] FNR OB [address] [place] [address] Flaquita Banuelos CNM 01/01/2025 Travel 12/29/2024 Clinisync Result Encounter NOMS External Department Unsolicited Nick Sam, 12/28/2024 Refill [facility] FNR OB [facility] [place] [address] Abby Saul MA Anemia during in third trimester 12/27/2024 Results Follow-Up [facility] FNR OB [address] [place] [address] Abby Saul MA 12/27/2024 Refill [facility] FNR OB [address] [place] [address] Abby Saul MA Anemia during in third trimester 12/26/2024 4:00 PM EDT Routine [facility] FNR OB [address] [place] [address] Flaquita Banuelos, CATHIE with type 2 diabetes mellitus in third trimester (Primary Dx); Screening for iron deficiency anemia; 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 mellitus treated with insulin ([facility]) 12/26/2024 Bamboo flowsheet [facility]NR OB [address] [place] [address] Flaquita Banuelos CNM 12/25/2024 10:20 AM EDT Consult [facility] OB [address] [facility] [place] [address] Nick Sam, with type 2 diabetes mellitus in third trimester 12/25/2024 Travel 12/25/2024 Bamboo flowsheet [facility] OB [address] [facility] [place] [address] Nick Sam DO 12/20/2024 Results Follow-Up [facility] FNR OB [address] [place] [address] Flaquita Banuelos CNM 12/20/2024 Orders Only [facility] FNR OB [address] [place] [address] Flaquita Banuelos CNM with type 2 diabetes mellitus in third trimester 12/11/2024 4:30 PM EDT Ancillary Procedure [facility] FNR ULTRASOUND [address] [facility] [address] [place] [address] related condition in third trimester 12/11/2024 4:00 PM EDT Routine [facility] FNR OB [address] [place] [address] Flaquita Banuelos CNM with type 2 diabetes mellitus in third trimester 12/11/2024 Bamboo flowsheet [facility] FNR OB [address] [place] [address] Flaquita Banuelos CNM 12/11/2024 Travel 12/07/2024 8:15 AM EDT Office Visit [facility] FM [address] [place] [address] Awilda Crenshaw DO with type 2 diabetes mellitus in third trimester (Primary Dx); with type 2 diabetes mellitus in second trimester 12/07/2024 Abstract [facility] DEPARTMENT [address] [place] [address] Unallocated, Danay Biggs MD 12/07/2024 Travel 12/04/2024 Travel 11/30/2024 Abstract [facility] DEPARTMENT [address] [place] [address] Awilda Crenshaw DO 11/30/2024 Travel 11/29/2024 Telephone [facility] FM [address] [place] [address] Bonny Garcia LPN BG readings 11/15/2024 4:30 PM EDT Routine [facility] FNR OB [address] [place] [address] Flaquita Banuelos CNM Encounter for care of first , second trimester (Primary Dx); related condition in third trimester; Gestational diabetes mellitus (GDM) requiring insulin 11/15/2024 Bamboo flowsheet [facility]OM[facility] R OB [address] [place] [address] Flaquita Banuelos CNM 11/14/2024 Travel 11/10/[address] [facility] [address] [place] [address] Awilda Crenshaw, DO 11/03/2024 Abstract [facility] DEMO [address] [address] Awilda Crenshaw, DO 10/20/2024 Abstract [facility] [address] [facility] [address] [place] [address] Awilda Crenshaw, DO 10/18/2024 4:30 PM EST Routine [facility] FNR OB [address] [place] [address] Flaquita Banuelos CNM 10/18/2024 Bamboo flowsheet [facility] FNR OB [address] [place] [address] Flaquita Banuelos CNM from Last 3 Months [...] often do you attend chur ch or restoration services? More than 4 times per year 06/07/2024 Do you belong to any clubs o r organizations such as anglican groups, unions, fraternal or athletic groups, or [...] Recorded Patient Health Questionnaire-2 Score 0 12/07/2024 [facility] of Occupat ional Health - Occupational Stress [...] Pressure 120/74 01/09/2025 4:34 PM EDT Pulse 86 12/07/2024 8:17 AM EDT Temperature 36.6 C (97.9 F) 12/07/2024 8:17 AM EDT Respiratory Rate - - Oxygen Saturation 98% 12/07/2024 8:17 AM EDT Inhaled Oxygen Concentration - - Weight 110 kg (242 lb) 01/09/2025 4:34 PM EDT Height 177.8 cm (5' 10 ) 12/07/2024 8:17 AM EDT Body Mass Index 34.72 12/07/2024 8:17 AM EDT Plan of Treatment Upcoming Encounters Date Type Department Care Team (Late st Contact Info) Description 01/15/2025 4:30 PM EDT Routine [facility] FNR OB [address] [place] [address] Flaquita Banuelos, CATHIEM [address] [place], [place] [address] 01/18/2025 8:30 AM EDT Office Visit [facility] FM [address] [place] [address] Awilda Crenshaw, [address] [place] [address] 01/22/2025 4:30 PM EDT Routine [facility] FNR OB [address] [place] [address] Flaquita Banuelos, CNM [address] [place] [address] 01/29/2025 4:30 PM EDT Routine [facility] FNR OB [address] [place] [address] Flaquita Banuelos, CNM [address] [place] [address] 02/06/2025 4:30 PM EDT Routine [facility] FNR OB [address] [place] [address] Flaquita Banuelos, CN [address] [place] [address] 02/12/2025 4:30 PM EDT Routine [facility] FNR OB [address] [place] [address] Flaquita Banuelos, CN [address] [place] [address] Health Maintenance Due Date Last Done Comments [...] complication, without long-term current use of insulin ([facility]) from Last 3 Months or Most Recently Relevant to Health Maintenance Results * US OB BPP W NON-STRESS (01/05/2025 3:27 PM EDT) Only the most recent of2 resultswithin the time period is included. Anatomical Region Laterality Modality Other 01/05/2025 3:27 PM EDT Narrative 01/05/2025 3:29 PM EDT The [address] [address] Ultrasound Report Signed Patient: REGINALD REYES MR#: [id number] : 1995 Acct:[id number] Age/Sex: 29 / F ADM Date: 01/05/25 Loc: US Attending Dr: Nick Sam D.O. Ordering Physician: Nick Sam D.O. Date of Service: 01/05/25 Procedure(s): US OB BPP w non-stress Accession Number(s): [id number] cc: Nick Sam D.O.; Physician,Non-Staff Magaly The [address] [address] Patient Name: REGINALD REYES MRN: [id number] date: 1995 Sex: F Assigned Patient Location: [facility] Current Patient Location: [place] Accession/Order Number: [id number] Exam Date: 01/05/2025 15:26 Report Date: 01/05/2025 [...] Love M.D. 01/05/2025 3:27 PM Dictation Location: [facility] Electronically authenticated by: [id number] Y Date: 01/05/2025 15:27 Dictated By: Pradip Love D.O. Signed By: 01/05/25 1529 DD/ 1527 TD/TT: Iron Guardrail Installer: Procedure Note Radiology, Radiologist, MD - 01/05/2025 [place] [address] Ultrasound Report Signed Patient: REGINALD REYES MMR#: [id number] : 1995Acct:[id number] Age/Sex: 29 / FADM Date: 01/05/25 Loc: US Attending Dr: Nick Sam D.O. Ordering Physician: Nick Sam D.O. Date of Service: 01/05/25 Procedure(s): US OB BPP w non-stress Accession Number(s): [id number] cc: Nick Sam D.O.; Physician,Non-Staff Magaly The [address] [address] Patient Name: REGINALD REYES MRN: [id number] date: 1995 Sex: F Assigned Patient Location: [facility] Current Patient Location: [place] Accession/Order Number: [id number] Exam Date: 01/05/2025 15:26 Report Date: 01/05/2025 [...] Love M.D. 01/05/2025 3:27 PM Dictation Location: [place] [address] Electronically authenticated by: [id number] Y Date: 5:27 Dictated By: Pradip Love D.O. Signed By:01/05/25 1529 DD/ 1527 TD/TT: Iron Guardrail Installer: Nick Sam DO [facility] Final Result * Urine culture (01/01/2025 5:00 PM EDT) MICRO NUMBER [id number] QUEST SPECIMEN QUALITY Adequate QUEST SOURCE: (QUEST) [...] Performing Organization Information Site ID: QPT Name: [email or web address] [facility] Address: [address] [place] [address], [address] [place] [phone] Director: Devendra Aguilar MD Flaquita Banuelos CNM [...] Performing Organization Information Site ID: QPT Name: [email or web address] [facility] Address: [address] [place] [address], [address] [place] [phone] Director: Devendra Aguilar MD us Flaquita Banuelos [...] Positive Urine 12/25/2024 10:5 2 AM EDT Nick Flaco DO POINT OF CARE TEST [...] II, MD, PHD at 12-Dec-2024 07:13:14 PM [facility] Procedure Note Yuli Mccarthy MD - [...] YULI MCCARTHY II, MD, PHD 07:13:14 PM [facility] us Flaquita BRAND IMG OB US PROCEDURES Final R esult * POCT glycosylated hemoglobin (Hb A1C) docked device (10/09/2024 3:49 PM EST) Hemoglobin A1C 5.7 Blood Venous blood specimen / Unknown 10/09/2024 3:49 PM EST us Awilda Crenshaw DO POINT OF CARE TEST ENTER/E DIT ORDERABLES Final Result from Last 3 Months or Most Recently Relevant to Health Maintenance Insurance BS Care Teams It Network Administrator Relationship Specialty Start Date End Date Unallocated, Noms Provider, [place] [address] PCP - General 04/16/23 Flaquita Banuelos CNM [address] [place] [address] Obstetrics and Gynecology 02/10/23
--- OUTSIDE RECORDS SUMMARY | 2025-01-12 07:05 | XMS_ITS | Encounter Summary ---
Author Organization [facility] Address [address] [place] [address] Care Team Providers Care Family Services Specialist Name Role Phone Flaquita Banuelos CNM Unavailable [phone] Unallocated, Noms Provider Primary Care Pro[facility] [...] Recorded Patient Health Questionnaire-2 Score 0 12/07/2024 [employer] [facility] - Occupational Stress Questionnaire Answer Date Recorded [...] any time in the past 12 m [facility], were you homeless or living [...] PM EDT Routine [facility] [address] [place] [address] Flaquita Banuelos, CNM [address] [place] [address] 01/18/2025 8:30 AM EDT Office Visit [facility] [address] [place] [address] Awilda Crenshaw, DO [address] [place] [address] 01/22/2025 4:30 PM EDT Routine [facility] [address] [facility] [address] Flaquita Banuelos, CNM [address] [facility] [place] [address] 01/29/2025 4:30 PM EDT Routine [facility] [address] [facility] [place] [address] Flaquita Banuelos, CNM [address] [facility] [place] [address] 02/06/2025 4:30 PM EDT Routine [facility] [address] [facility] [place] [address] Flaquita Banuelos, CNM [address] [facility] [place] [address] 02/12/2025 4:30 PM EDT Routine [facility] [address] [facility] [place] [address] Flaquita Banuelos, CNM [address] [facility] [place] [address] documented as of this encounter Visit Diagnoses Not on filedocumented in this encounter Care Teams Family Services Specialist Relationship Specialty Start Date End Date Unallocated, Noms Provider, [place] [address] PCP - General 04/16/23 Flaquita Banuelos CNM [address] [place] [address] Obstetrics and Gynecology 02/10/23 documented as of this encounter
--- OUTSIDE RECORDS SUMMARY | 2025-01-12 07:05 | XMS_ITS | Encounter Summary ---
Author Organization [facility] Address [address] [place] [address] Care Team Providers Care Customer Success Intern Name Role Phone Flaquita Banuelos CNM Unavailable [phone] Unallocated, Noms Provider Primary Care Pro[facility] Awilda Crenshaw DO Unavailable [phone] Encounter Details Date Type Department Care Team (Late st Contact Info) Description 10/06/2024 Abstract [facility] [address] [place] [address] Awilda Crenshaw, DO [address] [facility] [address] [place] [address] Social History Tobacco Use Types Packs/Day Years [...] How often do you attend chur or pentecostalism services? More than 4 times per year [...] Recorded Patient Health Questionnaire-2 Score 0 10/09/2024 [facility] - Occupational Stress [...] 4:30 PM EDT Routine [facility] OB [address] [place] [address], [place] [address] Flaquita Banuelos, CN [address] [place] [address] 01/18/2025 8:30 AM EDT Office Visit [facility] [address] [place] [address] Awilda Crenshaw, [address] [place] [address] 01/22/2025 4:30 PM EDT Routine [facility] [address] [facility] [place] [address] Flaquita Banuelos, CN [address] [place] [address] 01/29/2025 4:30 PM EDT Routine [facility] [address] [facility] [place] [address] Flaquita Banuelos, CN [address] [place] [address] 02/06/2025 4:30 PM EDT Routine [facility] [address] [facility] [place] [address] Flaquita Banuelso, CN [address] [place] [address] 02/12/2025 4:30 PM EDT Routine [facility] [address] [place] [address] Flaquita Banuelos CNM [address] [place] [address] documented as of this encounter Visit Diagnoses Not on filedocumented in this encounter Care Teams Customer Success Intern Relationship Specialty Start Date End Date Unallocated, Noms Provider, [address] [place] [address] PCP - General 04/16/23 Awilda Crenshaw DO [address] [place] [address] PCP - [place] [employer] 06/16/23 Flaquita Banuelos CNM [address] [place] [address] Obstetrics and Gynecology 02/10/23 documented as of this encounter
--- OUTSIDE RECORDS SUMMARY | 2025-01-12 07:05 | XMS_ITS | Encounter Summary ---
Author Organization [facility] Address [address] [place] [address] Care Team Providers Care Can Handler Name Role Phone Flaquita Banuelos CNM Unavailable [phone] Unallocated, Noms Provider Primary Care Provi mart Encounter Details Date Type Department Care Team (Late st Contact Info) Description 01/01/2025 Bamboo flowsheet [facility] [address] [place] [id number] Flaquita Banuelos, CNM [address] [place], [place] [phone] Social History Tobacco Use Types Packs/Day Years [...] Recorded Patient Health Questionnaire-2 Score 0 12/07/2024 [facility] - [...] any time in the past 12 m [facility], were you homeless or [...] PM EDT Routine [facility] [address] [place] [address] Flaquita Banuelos, CNM [address] [place] [address] 01/18/2025 8:30 AM EDT Office Visit [facility] [address] [place] [address] TristonAwilda carr, DO [address] [place] [address] 01/22/2025 4:30 PM EDT Routine [facility] [address] [place] [address] Flaquita Banuelos, CNM [address] [place] [address] 01/29/2025 4:30 PM EDT Routine [facility] [address] [place] [address] Flaquita Banuelos, CN [address] [place] [address] 02/06/2025 4:30 PM EDT Routine [facility] [address] [place] [address] Flaquita Banuelos, CN [address] [place] [address] 02/12/2025 4:30 PM EDT Routine [facility] [address] [place] [address] Flaquita Banuelos, CNM [address] [place] [address] documented as of this encounter Visit Diagnoses Not on filedocumented in this encounter Care Teams Can Handler Relationship Specialty Start Date End Date Unallocated, Noms Provider, [address] [place] [address] PCP - General 04/16/23 Flaquita Banuelos CNM [address] [place], [place] [id number] Obstetrics and Gynecology 02/10/23 documented as of this encounter
--- OUTSIDE RECORDS SUMMARY | 2025-01-12 07:06 | XMS_ITS | CCD ---
Author Organization [facility] Care Team Providers Care Library Sales Consultant Name Role Phone Unavailable Primary Care Provider Unavailabl e FLORO, DARÍO Referring Unavailable Floro CNM, Darío L Unavailable Unallocated , Noms Provider Primary Care Provi mart PetAwilda carr DO Unavailable Unallocated , Noms Provider Primary Care Provi mart Floro PLANT [employer] MACH[employer]ERY VALUER-CNM, Darío Primary Care Provider SVETLANA JACK Attending [...] Attending Unavailable PETZNICK, AWILDA M Attending Unavailable VIN, DARÍO Mccoy Attending Unavailable JUAN RAMON, AWILDA M Attending Unavailable AWILDA DELATORRE M Attending Unavailable DARÍO BANUELOS Referring Unavailable FLORO, DARÍO Mccoy Referring Unavailable HENRY SAM Attending Unavailable SHEEBAO, DARÍO Mccoy Referring Unavailable FLORODARÍO Attending Unavailable FLORO, DARÍO Mccoy Attending Unavailable FLORODARÍO Attending Unavailable FLORO, DARÍO Mccoy Attending Unavailable FLORO, DARÍO Mccoy Attending Unavailable JUAN RAMON, AWILDA [...] Use to monitor blood glucose 5 each 08/14/2024 Active calcium carb/mag/vitamin D3 (CORAL CALCIUM [...] Active docusate sodium 100 mg oral capsule (5 sources) Start: 12-28-2024 End: 04-27-2025 take 1 capsule by mouth in the morning docusate sodium (Colace) 100 MG capsule Indications: Anemia during in third trimester Take 1 capsule (100 mg) by mouth in the morning and 1 capsule (100 mg) before bedtime. 60 capsule 3 12/28/2024 04/27/2025 Active ferrous sulfate 325 mg delayed release oral tablet (5 sources) Start: 12-28-2024 End: 12-28-2025 take 1 [...] of insulin ([facility]) 15 units in the am and 25 [...] 04-16-2023 Chronic Other and delivery including normal (12 sources) First trimester ; Translations: [Encounter for [...] Test Name Value Interpretation Reference Range Facility OB BPP W NON-STRESS on 12-29-2024 [place] [address] Ultrasound Report Signed Patient: REGINALD REYES MR#: [id number] : 1995 Acct:[id number] Age/Sex: 29 / F ADM Date: 12/29/24 Loc: US Attending Dr: Henry Sam D.O. Ordering Physician: Henry Sam D.O. Date of Service: 12/29/24 Procedure(s): US OB BPP w non-stress Accession Number(s): [id number] cc: Henry Sam D.O.; Physician,Non-Staff [place] [id number] Patient Name: REGINALD REYES MRN: [facility]:[id number] date: 1995 Sex: F Assigned Patient Location: [facility] Current Patient Location: Accession/Order Number: [id number] Exam Date: 12/29/2024 09:34 Report Date: 12/29/2024 [...] Roberson M.D. 12/29/2024 9:36 AM Dictation Location: [place] [address] Electronically authenticated by: [id number] Y Date: 12/29/2024 09:36 Dictated By: Zak Roberson M.D. 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 Ordering Physician: Flaco,Henry D.O. Date of Service: 12/29/24 Procedure(s): US OB BPP w non-stress Accession Number(s): [id number] cc: Henry Sam D.O.; Physician,Non-Staff [place] [id number] Patient Name: REGINALD REYES MRN: [id number] date: 1995 Sex: F Assigned Patient Location: [facility] Current Patient Location: Accession/Order Number: [id number] Exam Date: 12/29/2024 09:34 Report Date: 12/29/2024 [...] Roberson M.D. 12/29/2024 9:36 AM Dictation Location: [place] [address] Electronically authenticated by: [id number] Y Date: 12/29/2024 09:36 Dictated By: Zak Roberson M.D. 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 [employer]er [employer] Head: [facility] Radiology Study observation (narrative) [facility] US OB BPP W NON-STRESS Ordered By: Radiologist Radiology on 12-29-2024 [facility] [employer] Work Phone: Urinalysis macro (dipstick) panel (U)on 12-25-2024 Bilirubin, UA Negative Negative - 4(70) +++ mg/dL [facility] Blood, UA Negative Negative - 50 Skinny/mcL [facility] Clarity, UA Clear [facility] Color, UA Yellow [facility] Glucose, UA Negative Negative - 1999(110) ++++ mg/dL [facility] Interpretation and review of laboratory results Normal [facility] Ketones, UA Negative Negative - 160(16) ++++ mg/dL [facility] Leukocytes, UA Positive Negative - 500+++ Cal/mcL [facility] Comment on above: small Nitrite, UA Negative Negative - Positive [facility] pH, UA 6.5 5 - 9 [facility] [employer] Protein, UA Negative Negative - 1999(20) ++++ mg/dL [facility] Spec Grav, UA 1.02 1 - 1.03 [facility] Urobilinogen, UA 1.0 0.2 - 12 mg/dL [facility] US OB FOLLOW UP [...] II, MD, PHD at 12-Dec-2024 07:13:14 PM [facility] Normal Not Available POCT EKGOrdered By: Abby Andino on 11-08-2024 [facility] HbA1c (Bld) [Mass fraction]o n 10-09-2024 Interpretation and review of laboratory results Normal [facility] Laboratory - Hematology and Cell countson 10-09-2024 HbA1c (Bld) [Mass fraction] 5.7 % [facility] POCT EKGon 09-19-2024 [facility] No Panel Informationon 08-14 [facility] Chlamydia/GC by PCR ThinPrep fluidon 07-11-2024 Chlamydia Dna(Pcr) Negative [facility] Gonorrhoeae Dna(Pcr) Negative [facility] Drug Screen, Urineon 024 Amphetamine/Methamph etamine Negative [facility] Opiate Quantitative Urine Negative [facility] HIV 1&2 AB/AG Screen (P24 AG )on 07-10-2024 HIV 1&2 AB/AG Non-Reactive [facility] Hemoglobin A1con 07-10-2024 HbA1c (Bld) [Mass fraction] 6.4 % Abnormal 4.0 - 6.0 % [facility] Interpretation and review of laboratory results Abnormal [facility] No Panel Informationon 07-10 [facility] Type and screenon 07-10-2024 Abo/Rh(D) Positive [facility] US OB < 14 WEEKS EARLYon US [...] Interpretation and review of laboratory results Normal [facility] [employer] e Laboratory - Hematology and Cell countson 06-08-2024 HbA1c (Bld) [Mass fraction] 6.2 % [facility] Cytology Cervical or vaginal smear or scraping studyOrdered By: Christen Nettles on 02-10-2023 [facility] Hemoglobin A1Con 07-05-2019 HbA1c (Bld) [Mass fraction] 5.9 % Normal 4.8-5.9 [facility] Comment on above: Performed By: #### G BROOKE LIPR #### [address] [place] [address] Net Fisher: Ruslan Fernando MD #### INSU #### [facility] [address] [place], [place] [phone] Net Fisher: Marv Guzman MD [address] [place], [place] [phone] Net Fisher: Ruslan Fernando MD HbA1c (Bld) [Mass fraction] 123 mg/dL Normal [facility] Comment on above: Result Comment: The ADA and AACC recommend providing the estimated average glucose result to permit better patient understanding of their HBA1c result. Performed By: #### G BROOKE, LIPR #### [address] [place], [place] [phone] Net Fisher: Ruslan Fernando MD #### INSU #### [facility] [address] [place], [place] [phone] Net Fisher: Marv Guzman MD [address] [place] [address] Net Fisher: Ruslan Fernando MD Glucose [Mass/Vol] 123 mg/dL [facility] [place] Comment on above: The ADA and AACC rec ommend providing the estimated average glucose result to permit better patient understanding of their HBA1c result. HbA1c (Bld) [Mass fraction] 5.9 % 4.8 - 5.9 % [place], [place] Insulinon 07-05-2019 Insulin 36.2 mU/L [facility] Comment on above: Performed By: #### G LYHGB, LIPR #### [facility] [address] [place] [address] Net Fisher: Ruslan Fernando MD #### INSU #### [place] [address] [place] [address] Net Fisher: Marv Guzman MD [address] [place], [place] [phone] Net Fisher: Ruslan Fernando MD Reference Range [facility] Comment on above: Result Comment: Fast in.6-24.9 30 min: 20-112 60 min: 29-88 90 min: 26-84 120 min: 22-79 Performed By: #### G LYHGB, LIPR #### [address] [place] [address] Net Fisher: Ruslan Fernando MD #### INSU #### [place] [address] [place] [address] Net Fisher: Marv Guzman MD [address] [place] [address] Net Fisher: Ruslan Fernando MD Collection Info. 5038 [facility] Comment on above: Performed By: #### G LYHGB, LIPR #### [facility] [address] [place] [address] Dr[address] [place], [place] [phone] Net Fisher: Ruslan Fernando MD #### INSU #### [place] [address] [place] [address] Net Fisher: Marv Guzman MD [address] [place], [place] [phone] Net Fisher: Ruslan Fernando MD Insulin, totalon 07-05-2019 INR Coag (Bld) [Relative time] [place], [place] Comment on above: Fastin.6-24.9 30 min: 20-112 60 min: 29-88 90 min: 26-84 120 min: 22-79 Insulin 36.2 mU/L [place] Insulin Comment [address] [place], [place] Lipid Panelon 07-05-2019 Cholesterol [Mass/Vol] 204 mg/dL High <200 [place] Comment on above: Cholesterol Guidelines: <200 Desirable 200-240 Borderline >240 Undesirable Cholesterol in HDL [Mass/Vol] 35 mg/dL Low >40 [place] Comment on above: HDL Guidelines: <40 Undesirable 40-59 Borderline >59 Desirable Cholesterol in LDL [Mass/Vol] 102 mg/dL 0 - 130 mg/dL [place] Comment on above: LDL Guidelines: <100 Desirable 100-129 Near to/above Desirable 130-159 Borderline >159 Undesirable Direct (measured) LDL and calculated LDL are not interchangeable tests. Cholesterol in VLDL [Mass/Vol] NOT REPORTED High 1 - 30 mg/dL [place] Cholesterol.total/Ch olesterol in HDL [Mass ratio] 5.8 {ratio} High <5 [place] Interpretation and review of laboratory results Abnormal [place] Triglyceride [Mass/Vol] 336 mg/dL High <150 [place] Comment on above: Triglyceride Guidelines: <150 Desirable 150-199 Borderline 200-499 High >499 Very high Based on AHA Guidelines for fasting triglyceride, May 2012. Lipid Profileon 07-05-2019 Cholesterol [Mass/Vol] 204 mg/dL High <200 [facility] Comment on above: Result Comment: Cholesterol Guidelines: <200 Desirable 200-240 Borderline >240 Undesirable Performed By: #### G LYHGB, LIPR #### [facility] [address] [place] [address] Net Fisher: Ruslan Fernando MD #### INSU #### [facility] [address] [place], [place] [address] Net Fisher: Marv Guzman MD [facility] [address] [place] [address] [place] [place], [place] [phone] Net Fisher: Ruslan Fernando MD Cholesterol in HDL [Mass/Vol] 35 mg/dL Low >40 [facility] Comment on above: Result Comment: HDL Guidelines: <40 Undesirable 40-59 Borderline >59 Desirable Performed By: #### G LYHGB, LIPR #### [address] [place], [place] [phone] Net Fisher: Ruslan Fernando MD #### INSU #### [address] [phone] Net Fisher: Marv Guzman MD [address] [place], [place] [phone] Net Fisher: Ruslan Fernando MD Cholesterol in LDL [Mass/Vol] 102 mg/dL Normal 0-130 [facility] Comment on above: Result Comment: LDL Guidelines: <100 Desirable 100-129 Near to/above Desirable 130-159 Borderline >159 Undesirable Direct (measured) LDL and calculated LDL are not interchangeable tests. Performed By: #### G LYHGB, LIPR #### [address] [place], [place] [phone] Net Fisher: Ruslan Fernando MD #### INSU #### [address] [phone] Net Fisher: Marv Guzman MD [address] [place], [place] [phone] Net Fisher: Ruslan Fernando MD Cholesterol.total/Ch olesterol in HDL [Mass ratio] 5.8 {ratio} High <5 [facility] Comment on above: Performed By: #### G LYHGB, LIPR #### [address] [place], [place] [phone] Net Fisher: Ruslan Fernando MD #### INSU #### [address] [place] [address] Net Fisher: Marv Guzman MD [facility] [address] [place] [address] Dr[address] [place], [place] [phone] Net Fisher: Ruslan Fernando MD Triglyceride [Mass/Vol] 336 mg/dL High <150 [facility] Comment on above: Result Comment: Triglyceride Guidelines: <150 Desirable 150-199 Borderline 200-499 High >499 Very high Based on AHA Guidelines for fasting triglyceride, May 2012. Performed By: #### G LYHGB, LIPR #### [facility] [address] [place] [address] [place] [place] [phone] Net Fisher: Ruslan Fernando MD #### INSU #### [facility] [address] [place] [address] Net Fisher: Marv Guzman MD [address] [place] [phone] Net Fisher: Ruslan Fernando MD Cholesterol in VLDL [Mass/Vol] NOT REPORTED Normal 09-14 [facility] Comment on above: Performed By: #### G LYHGB, LIPR #### [address] [place] [phone] Net Fisher: Ruslan Fernando MD #### INSU #### [place] [address] [place] [address] Net Fisher: Marv Guzman MD [address] [place], [place] [phone] Net Fisher: Ruslan Fernando MD Vital Signs Date Time Vital Sign Value Performing Clinician Facility 01-09-2025 16:34-0400 Body mass index (BMI) [Ratio] 34.72 kg/m2 Darío Banuelos CNM Work Phone: [facility] 01-09-2025 16:34-0400 Body weight 109.77 kg Daríolibby BRAND Work Phone: [facility] 01-09-2025 16:34-0400 Diastolic blood pressure 74 mm[Hg] Darío Sheebao CNM Work Phone: [facility] 01-09-2025 16:34-0400 Systolic blood pressure 120 mm[Hg] Darío Sheebao CNM Work Phone: [facility] 12-26-2024 16:02-0400 Body mass index (BMI) [Ratio] 34.15 kg/m2 Darío Díazo CNM Work Phone: [facility] 12-26-2024 16:02-0400 Body weight 107.96 kg Darío Díazo CNM Work Phone: [facility] 12-26-2024 16:02-0400 Diastolic blood pressure 74 mm[Hg] Darío Díazo CNM Work Phone: [facility] 12-26-2024 16:02-0400 Systolic blood pressure 116 mm[Hg] Darío Sheebao CNM Work Phone: [facility] 12-11-2024 15:56-0400 Diastolic blood pressure 70 mm[Hg] Darío Sheebao CNM Work Phone: [facility] 12-11-2024 15:56-0400 Systolic blood pressure 120 mm[Hg] Darío Floro CNM Work Phone: [facility] 12-07-2024 08:17-0400 Body height 177.8 cm Awilda Petznick DO Work Phone: [facility] 12-07-2024 08:17-0400 Body temperature 97.9 [degF] Awilda Petznick DO Work Phone: [facility] 12-07-2024 08:17-0400 Diastolic blood pressure 66 mm[Hg] Awilda Petznick DO Work Phone: [facility] 12-07-2024 08:17-0400 Heart rate 86 /min Awilda Petznick DO Work Phone: [facility] 12-07-2024 08:17-0400 SaO2% (BldA) [Mass fraction] 98 % Awilda Petznick DO Work Phone: [facility] 12-07-2024 08:17-0400 Systolic blood pressure 126 mm[Hg] Awilda Delatorre DO Work Phone: [facility] 11-15-2024 16:31-0400 Body mass index (BMI) [Ratio] 34.44 kg/m2 Darío Banuelos CNM Work Phone: [facility] 11-15-2024 16:31-0400 Body weight 108.86 kg Darío Banuelos CNM Work Phone: [facility] 11-15-2024 16:31-0400 Diastolic blood pressure 78 mm[Hg] Darío Banuelos CNM Work Phone: [facility] 11-15-2024 16:31-0400 Systolic blood pressure 120 mm[Hg] Darío Banuelos CNM Work Phone: [facility] 11-08-2024 09:17-0400 Body height 177.8 cm Tricia Rowland MD Work Phone: [facility] 11-08-2024 09:17-0400 Body mass index (BMI) [Ratio] 34.06 kg/m2 Tricia Rowland MD Work Phone: [facility] 11-08-2024 09:17-0400 Body weight 107.68 kg Tricia Rowland MD Work Phone: [facility] 11-08-2024 09:17-0400 Diastolic blood pressure 64 mm[Hg] Tricia Rowland MD Work Phone: [facility] 11-08-2024 09:17-0400 Heart rate 80 /min Tricia Rowland MD Work Phone: [facility] 11-08-2024 09:17-0400 SaO2% (BldA) [Mass fraction] 98 % Tricia Rowland MD Work Phone: [facility] 11-08-2024 09:17-0400 Systolic blood pressure 128 mm[Hg] Tricia Rowland MD Work Phone: [facility] 10-09-2024 15:40-0500 Body height 177.8 cm Awilda Petznick DO Work Phone: [facility] 10-09-2024 15:40-0500 Body mass index (BMI) [Ratio] 34.01 kg/m2 Awilda Petznick DO Work Phone: [facility] 10-09-2024 15:40-0500 Body temperature 98.2 [degF] Awilda Petznick DO Work Phone: [facility] 10-09-2024 15:40-0500 Body weight 107.5 kg Awilda Petznick DO Work Phone: [facility] 10-09-2024 15:40-0500 Diastolic blood pressure 66 mm[Hg] Awilda Petznick DO Work Phone: [facility] 10-09-2024 15:40-0500 Heart rate 98 /min Awilda Petznick DO Work Phone: [facility] 10-09-2024 15:40-0500 SaO2% (BldA) [Mass fraction] 98 % Awilda Petznick DO Work Phone: [facility] 10-09-2024 15:40-0500 Systolic blood pressure 128 mm[Hg] Awilda Petznick DO Work Phone: [facility] 09-28-2024 16:17-0500 Body mass index (BMI) [Ratio] 34.58 kg/m2 Darío Floro CNM Work Phone: [facility] 09-28-2024 16:17-0500 Body weight 109.32 kg Darío Sheebao CNM Work Phone: [facility] 09-28-2024 16:17-0500 Diastolic blood pressure 70 mm[Hg] Darío Sheebao CNM Work Phone: [facility] 09-28-2024 16:17-0500 Systolic blood pressure 120 mm[Hg] Darío Díazo CNM Work Phone: [facility] 09-19-2024 10:31-0500 Body height 177.8 cm Aye Saucedo MD Work Phone: [facility] 09-19-2024 10:31-0500 Body mass index (BMI) [Ratio] 34.15 kg/m2 Aye Saucedo MD Work Phone: [facility] 09-19-2024 10:31-0500 Body weight 107.96 kg Aye Saucedo MD Work Phone: [facility] 09-19-2024 10:31-0500 Diastolic blood pressure 76 mm[Hg] Aye Saucedo MD Work Phone: [facility] 09-19-2024 10:31-0500 Heart rate 85 /min Aye Saucedo MD Work Phone: [facility] 09-19-2024 10:31-0500 SaO2% (BldA) [Mass fraction] 98 % Aye Saucedo MD Work Phone: [facility] 09-19-2024 10:31-0500 Systolic blood pressure 122 mm[Hg] Aye Saucedo MD Work Phone: [facility] 09-11-2024 08:12-0500 Body mass index (BMI) [Ratio] 34.29 kg/m2 Clarke Modi MD Work Phone: [facility] 09-11-2024 08:12-0500 Body weight 108.41 kg Clarke Modi MD Work Phone: [facility] 09-11-2024 08:12-0500 Diastolic blood pressure 81 mm[Hg] Clrake Modi MD Work Phone: [facility] 09-11-2024 08:12-0500 Heart rate 80 /min Clarke Modi MD Work Phone: [facility] 09-11-2024 08:12-0500 Systolic blood pressure 122 mm[Hg] Clarke Modi MD Work Phone: [facility] 09-01-2024 08:54-0500 Body height 177.8 cm Awilda Petznick DO Work Phone: [facility] 09-01-2024 08:54-0500 Body mass index (BMI) [Ratio] 34.44 kg/m2 Awilda Petznick DO Work Phone: [facility] 09-01-2024 08:54-0500 Body temperature 98.49 [degF] Awilda Petznick DO Work Phone: [facility] 09-01-2024 08:54-0500 Body weight 108.86 kg Awilda Petznick DO Work Phone: [facility] 09-01-2024 08:54-0500 Diastolic blood pressure 72 mm[Hg] Awilda Petznick DO Work Phone: [facility] 09-01-2024 08:54-0500 Heart rate 92 /min Awilda Petznick DO Work Phone: [facility] 09-01-2024 08:54-0500 SaO2% (BldA) [Mass fraction] 97 % Awilda Petznick DO Work Phone: [facility] 09-01-2024 08:54-0500 Systolic blood pressure 126 mm[Hg] Awilda Petznick DO Work Phone: [facility] 08-14-2024 10:40-0500 Body height 177.8 cm Svetlana Lavoy PA-C Work Phone: [facility] 08-14-2024 10:40-0500 Body mass index (BMI) [Ratio] 34.72 kg/m2 Svetlana Lavoy PA-C Work Phone: [facility] 08-14-2024 10:40-0500 Body weight 109.77 kg Svetlana Lavoy PA-C Work Phone: [facility] 08-14-2024 10:40-0500 Diastolic blood pressure 68 mm[Hg] Svetlana Lavoy PA-C Work Phone: [facility] 08-14-2024 10:40-0500 Heart rate 86 /min Svetlana Lavoy PA-C Work Phone: [facility] 08-14-2024 10:40-0500 Systolic blood pressure 134 mm[Hg] Svetlana Lavoy PA-C Work Phone: [facility] 08-14-2024 09:42-0500 Body height 177.8 cm Shauna Denny RN Work Phone: [facility] 08-14-2024 09:41-0500 Body mass index (BMI) [Ratio] 34.72 kg/m2 Shauna Denny RN Work Phone: [facility] 08-14-2024 09:41-0500 Body weight 109.77 kg Shauna Denny RN Work Phone: [facility] 08-03-2024 08:36-0500 Body mass index (BMI) [Ratio] 35.3 kg/m2 Darío Floro CNM Work Phone: [facility] 08-03-2024 08:36-0500 Body weight 111.58 kg Darío Floro CNM Work Phone: [facility] 08-03-2024 08:36-0500 Diastolic blood pressure 80 mm[Hg] Darío Floro CNM Work Phone: [facility] 08-03-2024 08:36-0500 Systolic blood pressure 122 mm[Hg] Darío Floro CNM Work Phone: [facility] 07-10-2024 15:43-0500 Body mass index (BMI) [Ratio] 35.3 kg/m2 Darío Floro CNM Work Phone: [facility] 07-10-2024 15:43-0500 Body weight 111.58 kg Darío Floro CNM Work Phone: [facility] 07-10-2024 15:43-0500 Diastolic blood pressure 76 mm[Hg] Darío Banuelos CNM Work Phone: [facility] 07-10-2024 15:43-0500 Systolic blood pressure 120 mm[Hg] Darío Banuelos CNM Work Phone: [facility] 06-08-2024 14:04-0400 Body height 177.8 cm Awilda Petznick DO Work Phone: [facility] 06-08-2024 14:04-0400 Body mass index (BMI) [Ratio] 35.01 kg/m2 Awilda Petznick DO Work Phone: [facility] 06-08-2024 14:04-0400 Body temperature 98.49 [degF] Awilda Petznick DO Work Phone: [facility] 06-08-2024 14:04-0400 Body weight 110.68 kg Awilda Petznick DO Work Phone: [facility] 06-08-2024 14:04-0400 Diastolic blood pressure 72 mm[Hg] Awilda Petznick DO Work Phone: [facility] 06-08-2024 14:04-0400 Heart rate 87 /min Awilda Petznick DO Work Phone: [facility] 06-08-2024 14:04-0400 SaO2% (BldA) [Mass fraction] 98 % Awilda Petznick DO Work Phone: [facility] 06-08-2024 14:04-0400 Systolic blood pressure 138 mm[Hg] Awilda Petznick DO Work Phone: [facility] Healthcare Encounters Encounter Date Encounter Type Care Provider Facility Start: 01-09-2025 ambulatory DARÍO BANUELOS [place] ilable Start: 01-09-2025 End: 01-09-2025 Subsequent care visit Darío Banuelos CNM Work Phone: [facility] FNR OB Comment on above: 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 guerrero itus treated with insulin ([facility]) (Primary Dx); Encounter for care of first , third trimester Start: 01-09-2025 End: 01-09-2025 Bamboo flowsheet Darío L Floro CNM Work Phone: [facility] Start: 01-09-2025 End: 01-09-2025 Bamboo flowsheet Darío L Floro CNM Work Phone: [facility] Start: 01-01-2025 End: 01-01-2025 ambulatory DARÍO L FLORO Not Available Start: 01-01-2025 End: 01-01-2025 Bamboo flowsheet Darío L Floro CNM Work Phone: [facility] Start: 01-01-2025 End: 01-01-2025 Bamboo flowsheet Darío L Floro CNM Work Phone: [facility] Start: 12-29-2024 End: 12-29-2024 Clinisync Result Encounter Henry Flaco DO Work Phone: [facility] External Department Unsolicited Start: 12-29-2024 End: 12-29-2024 Clinisync Result Encounter Henry Flaco DO Work Phone: [facility] Unsolicited Start: 12-26-2024 End: 12-26-2024 ambulatory DARÍO L FLORO Not Available Start: 12-26-2024 End: 12-26-2024 Subsequent care visit Darío L Floro CNM Work Phone: [facility] Comment on above: with type 2 diabetes mellitus in third trimester (Primary Dx); Screening for iron deficiency anemia; 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 mellitus treated with insulin ([facility]) Start: 12-26-2024 End: 12-26-2024 Bamboo flowsheet Darío [...] 12-11-2024 End: 12-11-2024 Subsequent care visit Darío Nadine Díazo CNM [...] 11-15-2024 End: 11-15-2024 Subsequent care visit Darío Nadine Díazo CNM [...] 30 minutes Aye Saucedo MD Work Phone: [facility] Comment on above: Long Q-T syndrome (P rimary Dx); Hx of prolonged Q-T interval on ECG Start: 11-08-2024 End: 11-08-2024 ambulatory [facility] Start: 11-07-2024 End: 11-07-2024 Telephone encounter Abby Andino [facility] Start: 10-31-2024 End: 10-31-2024 [facility] Start: 10-18-2024 End: 10-18-2024 ambulatory DARÍO L FLORO Not Available Start: 10-18-2024 End: 10-18-2024 Bamboo flowsheet Darío L Floro CNM Work Phone: [facility] Start: 10-18-2024 End: 10-18-2024 Bamboo flowsheet Darío L Floro CNM Work Phone: [facility] Start: 10-10-2024 End: 10-10-2024 Office outpatient visit 25 minutes Clarke Modi MD Work Phone: [facility]aternal- Medicine at [facility] Comment on above: Pre-existing type 2 diabetes mellitus during in second trimester (Primary Dx) Start: 10-10-2024 End: 10-10-2024 ambulatory CLARKE MODI [facility] Start: 10-09-2024 End: 10-09-2024 Office outpatient visit 15 minutes Awilda Johansenpushpa DO Work Phone: [facility] Comment on above: with type 2 diabetes mellitus in second trimester (Primary Dx); 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 mellitus without complication, without long-term current use of insulin ([facility]) Start: 10-09-2024 End: 10-09-2024 ambulatory AWILDA DELATORRE Not Available Start: 10-03-2024 End: 10-03-2024 [facility] Start: 09-28-2024 End: 09-28-2024 Subsequent care visit Darío Banuelos CNM Work Phone: [facility] Comment on above: Encounter for prenat al care of first , second trimester (Primary Dx); 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 mellitus without complication, without long-term current use of insulin ([facility]) Start: 09-28-2024 End: 09-28-2024 ambulatory DARÍO BANUELOS Not Available Start: 09-28-2024 End: 09-28-2024 Bamboo flowsheet Darío Banuelos CNM Work Phone: [facility] Start: 09-28-2024 End: 09-28-2024 Bamboo flowsheet Darío Banuelos CNM Work Phone: [facility] Start: 09-19-2024 End: 09-19-2024 Office consultation new/estab patient 40 min Jacque Schneider MD Work Phone: [facility] Comment on above: Long Q-T syndrome (P rimary Dx); 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 mellitus without complication, unspecified whether longterm insulin use ([facility]) Start: 09-19-2024 End: 09-19-2024 ambulatory AYE SAUCEDO [facility] Start: 09-18-2024 End: 09-18-2024 Telephone encounter Abby Andino CMA [facility] Start: 09-14-2024 End: 09-14-2024 Chart abstracting Jacque Schneider MD Work Phone: [facility] Start: 09-11-2024 End: 09-11-2024 Telephone encounter Yudelka Randall RN [facility] at [facility] Start: 09-11-2024 End: 09-11-2024 Office outpatient visit 25 minutes Clarke Modi MD Work Phone: [facility]- Medicine at [facility] Comment on above: Pre-existing type 2 diabetes mellitus during in second trimester (Primary Dx); Long Q-T syndrome Start: 09-11-2024 End: 09-11-2024 ambulatory [facility] Start: 09-05-2024 End: 09-05-2024 Telephone encounter Sparkle Castillo RN [facility] at [facility] Start: 09-01-2024 End: 09-01-2024 Office outpatient visit 25 minutes Awilda Delatorre DO Work Phone: [facility] 230 Comment on above: with type 2 diabetes mellitus in second trimester (Primary Dx) Start: 09-01-2024 End: 09-01-2024 ambulatory AWILDA DELATORRE Not Available Start: 08-28-2024 End: 08-28-2024 Telephone encounter Donna Posadas RN [facility] at [facility] Start: 08-23-2024 End: 08-23-2024 Office outpatient visit 25 minutes Ariella PIERRE Work Phone: [facility]aternal- Medicine at [facility] Comment on above: 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 guerrero itus without complication, unspecified whether buttermaker continuous churn insulin use ([facility]) (Primary Dx) Start: 08-23-2024 End: 08-23-2024 ambulatory ARIELLA ROBERTO [facility] Start: 08-14-2024 End: 08-14-2024 Office outpatient new 45 minutes Svetlana Jack PA-C Work Phone: [facility] at [facility] Comment on above: with type 2 diabetes mellitus in second trimester (Primary Dx); Long Q-T syndrome Start: 08-14-2024 End: 08-14-2024 ambulatory Shauna Denny RN Work Phone: [facility]- Medicine at [facility] Comment on above: Pre-existing type [...] of insulin ([facility]) Start: 08-03-2024 End: 08-03-2024 ambulatory DARÍO L FLORO Not Available Start: 07-25-2024 End: 07-25-2024 Chart abstracting Scanning Provider External [facility] at [facility] Start: 07-10-2024 End: 07-10-2024 Subsequent care visit Darío L Floro CNM Work Phone: [facility] Comment on above: Encounter for prenat al care of first , first trimester (Primary Dx) Start: 07-10-2024 End: 07-10-2024 ambulatory DARÍO L FLORO Not Available Start: 07-10-2024 End: 07-10-2024 Bamboo flowsheet Darío L Floro CNM Work Phone: [facility] Start: 07-10-2024 End: 07-10-2024 Bamboo flowsheet Darío L Floro CNM Work Phone: [facility] Start: 07-03-2024 End: 07-03-2024 ambulatory DARÍO L FLORO Not Available Start: 06-08-2024 End: 06-08-2024 Office outpatient visit 15 minutes Awilda Delatorre DO Work Phone: [facility] 230 Comment on above: 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 guerrero itus without complication, without long- term current use of insulin ([facility]) Start: 06-08-2024 End: 06-08-2024 ambulatory AWILDA DELATORRE Not Available Start: 05-03-2024 End: 05-03-2024 Telephone encounter Darío Banuelos CNM Work Phone: [facility] Start: 02-28-2024 End: 02-28-2024 ambulatory AWILDA DELATORRE Not Available Start: 07-05-2019 End: 07-06-2019 Patient encounter procedure DARÍO BANUELOS [facility] Start: 07-05-2019 End: 07-05-2019 Subsequent hospital visit [...] TO [facility]ICINE - DIABETES EDUCATION Daríolibby Banuelos [employer] Work Phone: Start: 08-14-2024 AMB REFERRAL TO [facility] MEDICINE - NUTRITION EDUCATION Daríolibby Banuelos [employer] Work Phone: Start: 07-11-2024 CHLAMYDIA/GC BY PCR [...] t hin layer prep mnl screen Darío Díazo CNM Work Phone: Start: 07-05-2019 Assay of insulin total DARÍO FLORO Start: 07-05-2019 Hemoglobin glycosyla carola a1c DARÍO DÍAZO Start: 07-05-2019 Lipid panel DARÍO FL SHAYNE Start: 07-05-2019 Assay of insulin total Darío Vin Work Phone: Start: 07-05-2019 Hemoglobin glycosyla carola a1c Darío Díazo Work Phone: Start: 07-05-2019 Lipid panel Darío Fl shayne Work Phone: Plan of Treatment Date Care Activity Detail Author Start: 11-08-2025 Adult BMI Screening Adult BMI Screen ing [facility] Start: 11-08-2025 Tobacco Screening Tobacco Screening [facility] Start: 09-19-2025 Adult BMI Screening Adult BMI Screen ing [facility] Start: 09-19-2025 Tobacco Screening Tobacco Screening [facility] Start: 09-11-2025 Adult BMI Screening Adult BMI Screen ing [facility] Start: 09-11-2025 Tobacco Screening Tobacco Screening [facility] Start: 08-30-2025 Urine screening for protein Diabetes: Urine Protein Screening [facility] Start: 08-14-2025 Adult BMI Screening Adult BMI Screen ing [facility] Start: 08-14-2025 Tobacco Screening Tobacco Screening [facility] Start: 08-14-2025 End: 08-14-2025 US MFM with or without consult US MFM with or without consult Imaging Routine with type 2 diabetes mellitus in second trimester Expected: 08/14/2025 (Approximate), Expires: 08/14/2025 [facility] Work Phone: Comment on above: Expected: 08/14/2025 (Approximate), Expires: 08/14/2025 Start: 04-16-2025 Influenza vaccination Influenz a Vaccine (Season Ended) [facility] Start: 02-15-2025 End: 02-15-2025 Professional / ancillary services management 02/15/2025 4:00 PM EDT Ancillary Procedure [facility] [address] [phone] [facility] Start: 02-13-2025 End: 02-13-2025 Patient encounter procedure 02/13/2025 4:00 PM EDT Routine [facility] [address] [place] [address] Darío Banuelos, CATHIEM [address] [place] [address] [facility] Start: 02-12-2025 End: 02-12-2025 Patient encounter procedure 02/12/2025 4:30 PM EDT Routine [facility] [address] [place] [address] Darío Banuelos CNM [address] [place] [address] [facility] Start: 02-09-2025 End: 02-09-2025 Professional / ancillary services management 02/09/2025 4:00 PM EDT Ancillary Procedure [facility] [address] [phone] [facility] Start: 02-06-2025 End: 02-06-2025 Patient encounter procedure [facility] Start: 02-02-2025 End: 02-02-2025 Professional / ancillary services management 02/02/2025 4:00 PM EDT Ancillary Procedure [facility] [address] [facility] [address] [place] [address] [facility] Start: 01-30-2025 End: 01-30-2025 Patient encounter procedure 01/30/2025 4:00 PM EDT Routine [facility] [address] [facility] [place] [address] Darío Banuelos, CNM [address] [place] [address] [facility] Start: 01-29-2025 End: 01-29-2025 Patient encounter procedure 01/29/2025 4:30 PM EDT Routine [facility] [address] [facility] [place] [address] Darío Banuelos, CNM [address] [place] [address] [facility] Start: 01-26-2025 End: 01-26-2025 Professional / ancillary services management 01/26/2025 4:00 PM EDT Ancillary Procedure [facility] [address] [facility] [address] [place] [address] [facility] Start: 01-23-2025 End: 01-23-2025 Patient encounter procedure 01/23/2025 4:00 PM EDT Routine [facility] [address] [facility] [place] [address] Darío Banuelos, CNM [address] [place] [address] [facility] Start: 01-22-2025 End: 01-22-2025 Patient encounter procedure 01/22/2025 4:30 PM EDT Routine [facility] [address] [facility] [place] [address] Darío Banuelos, CNM [address] [place] [address] [facility] Start: 01-19-2025 End: 01-19-2025 Professional / ancillary services management 01/19/2025 9:15 AM EDT Ancillary Procedure [facility] [address] [facility] [address] [place] [address] [facility] Start: 01-18-2025 End: 01-18-2025 Patient encounter procedure 01/18/2025 8:30 AM EDT Office Visit [facility] [address] [place] [address] Awilda Delatorre DO [address] [place] [address] [facility] Start: 01-16-2025 End: 01-16-2025 Patient encounter procedure 01/16/2025 4:00 PM EDT Routine [facility] [address] [place] [address] Darío Banuelos, CNM [address] [place] [address] [facility] Start: 01-15-2025 End: 01-15-2025 Patient encounter procedure 01/15/2025 4:30 PM EDT Routine [facility] [address] [place] [address] Darío Banuelos, CN [address] [place] [address] [facility] Start: 01-12-2025 End: 01-12-2025 Professional / ancillary services management 01/12/2025 4:00 PM EDT Ancillary Procedure [facility] [address] [facility] [address] [place] [address] [facility] Start: 01-09-2025 End: 01-09-2025 Patient encounter procedure 01/09/2025 4:00 PM EDT Routine [facility] [address] [facility] [place] [address] Darío Banuelos, CNM [address] [place] [address] [facility] Start: 01-06-2025 Hemoglobin A1c measurement Diabetes: Hemoglobin A1C [facility] Start: 01-05-2025 End: 01-05-2025 Professional / ancillary services management 01/05/2025 9:15 AM EDT Ancillary Procedure [facility] [address] [phone] [facility] Start: 01-03-2025 Urine screening for protein Diabetes: Urine Protein Screening [facility] Start: 01-02-2025 End: 01-02-2025 Patient encounter procedure 01/02/2025 4:00 PM EDT Routine [facility] [address] [facility] [place] [address] Darío Banuelos, CNM [address] [place] [address] [facility] Start: 01-01-2025 End: 01-01-2025 Patient encounter procedure 01/01/2025 4:30 PM EDT Routine [facility] [address] [facility] [place] [address] Darío Banuelos, CNM [address] [place] [address] [facility] Start: 12-29-2024 End: 12-29-2024 Professional / ancillary services management 12/29/2024 4:00 PM EDT Ancillary Procedure [facility] [address] [facility] [address] [place] [address] [facility] Start: 12-26-2024 End: 12-26-2024 Patient encounter procedure 12/26/2024 4:00 PM EDT Routine [facility] [address] [place] [address] Darío Banuelos, CNM [address] [place] [address] [facility] Start: 12-26-2024 End: 12-26-2025 [...] EDT Ancillary Procedure [facility] [address] [address] [facility] Start: 12-11-2024 End: 12-11-2024 [...] 12/07/2024 8:15 AM EDT Office Visit [facility] [address] [place] [address] Awilda Delatorre DO [address] [place] [address] [facility] Start: 11-15-2024 End: 11-15-2024 Patient encounter procedure 11/15/2024 4:30 PM EDT Routine [facility] [address] [place] [address] Darío Banuelos, CATHIEM [address] [place] [address] Arrived [facility] Comment on above: [...] Cardiology [address] [place] [address] Aye Saucedo MD [address] [place] [address] Tricia Rowland MD [address] [place] [address] [facility] Start: 10-31-2024 End: 10-31-2024 Patient encounter procedure 10/31/2024 8:00 AM EDT Appointment [facility] [address] [place] [address] [facility] Start: 10-18-2024 End: 10-18-2024 Patient encounter procedure [facility] Comment on above: Arrived Start: 10-10-2024 Hemoglobin A1c measurement Diabetes: Hemoglobin A1C [facility] Start: 10-10-2024 End: 10-10-2024 Telemedicine consultation with patient 10/10/2024 11:30 AM EST Telemedicine Maternal- Medicine at [facility] [address] [place] [address] Clakre Modi MD [address], [address] [place] [address] [facility]- [facility] at [facility] Start: 10-09-2024 End: 10-09-2024 Patient encounter procedure 10/09/2024 3:45 PM EST Office Visit [facility] [address] [place] [address] Awilda Delatorre, [address] [place] [address] [facility] Start: 10-03-2024 End: 10-03-2024 Patient encounter procedure 10/03/2024 10:00 AM EST Appointment [facility] [address] [place] [address] [facility] Start: 09-28-2024 End: 09-28-2024 Patient encounter procedure [facility] Comment on above: Arrived Start: 09-25-2024 End: 09-25-2024 Patient encounter procedure 09/25/2024 8:30 AM EST Appointment [facility] - [facility] [address] [place] [address] [facility] Start: 09-19-2024 End: 09-19-2024 Patient encounter procedure 09/19/2024 8:15 AM EST Office Visit [facility] [address] [phone] Jacque Schneider MD [address] [place] [address] [facility] Start: 09-11-2024 End: 09-11-2024 Patient encounter procedure 09/11/2024 8:00 AM EST Office Visit M[facility]- Medicine at [facility] [address] [place] [address] Clarke Modi MD [address] [facility], [address] [place] [address] [facility]- Medicine at [facility] Start: 09-08-2024 Hemoglobin A1c measurement Diabetes: Hemoglobin A1C [facility] Start: 08-30-2024 End: 08-30-2024 Patient encounter procedure 08/30/2024 4:30 PM EST Office Visit [facility] [address] [place] [address] Darío Banuelos, CATHIE [address] [place] [address] [facility] Start: 08-23-2024 End: 08-23-2024 Telemedicine consultation with patient 08/23/2024 2:00 PM EST Telemedicine [facility]- Medicine at [facility] [address] [place] [address] Ariella Roberto, [employer] [address] [place] [address] [facility]- Medicine at [facility] Start: 08-14-2024 End: 11-12-2024 Protein creat ratio Protein creat ratio Lab Routine with type 2 diabetes mellitus in second trimester Expected: 08/14/2024 (Approximate), Expires: 11/12/2024 [facility] Comment on above: Expected: 08/14/2024 (Approximate), Expires: 11/12/2024 Start: 08-14-2024 End: 08-14-2024 Patient encounter procedure 08/14/2024 11:00 AM EST Office Visit [facility] at [facility] [address] [place] [address] Svetlana Jack PA-C [address] [address] [facility] at [facility] Start: 08-14-2024 End: 08-14-2024 ambulatory 08/14/2024 8:30 AM EST Support Visit M[facility]- Medicine at [facility] [address] [place] [address] Shauna Denny, RN [address] [facility], [address] [place] [address], [place] [address] Maribell Amin, OLAYINKA [address], [address] [place] [address], [place] [address] [facility] at [facility] Start: 08-03-2024 End: 08-03-2024 Patient encounter procedure 08/03/2024 8:30 AM EST Routine [facility] [address] [place] [address] Darío Banuelos CNM [address] [place], [place] [address] Arrived [facility] Comment on above: Arrived Start: 07-10-2024 End: 07-10-2024 Patient encounter procedure 07/10/2024 3:45 PM EST Routine [facility] [address] [place] [address] Darío Banuelos CNM [address] [place] [address] Arrived [facility] Comment on above: Arrived Start: 05-30-2024 Hemoglobin A1c measurement Diabetes: Hemoglobin A1C [facility] Start: 05-30-2024 End: 05-30-2024 Patient encounter procedure 05/30/2024 8:45 AM EDT Office Visit [facility] [address] [place] [address] Awilda Delatorre, [address] [place] [address] [facility] 230 Start: 04-16-2024 Influenza vaccination N [facility] Start: 09-06-2019 DTaP,Tdap and Td Vaccines (8 - Td or Tdap) DTaP,Tdap and Td Vaccines (8 - Td or Tdap) [facility] Start: 04-16-2019 Influenza vaccination Flu vaccine (# 1) [place], [place] Start: 2016 Cervical cancer screen Cervical canc er screen [place], [place] Start: 2016 Screening for malign ant neoplasm of cervix Pap Smear [facility] Start: 2014 DTaP,Tdap and Td Vaccines (1 - Tdap) DTaP,Tdap and Td Vaccines (1 - Tdap) [facility] Start: 2014 Urine screening for protein Diabetes: Urine Protein Screening [facility] Start: 2013 Adult BMI Follow Up Plan Adult BMI Follow Up Plan [facility] Start: 2013 Adult BMI Screening Adult BMI Screen ing [facility] Start: 2013 Diabetic foot examination Diabetic Foot Exam [facility] Start: 2011 Chlamydia screen Chlamydia screen [place], [place] Start: 2010 HIV screen HIV screen [place], [place] Start: 2007 Depression Screening Depression Scre ening [facility] Start: 2007 Tobacco Screening Tobacco Screening [facility] Start: 2006 DTaP/Tdap/Td vaccine (1 - Tdap) DTaP/Tdap/Td vaccine (1 - Tdap) [place], [place] Start: 2006 HPV vaccine (1 - Fem tarun 2-dose series) HPV vaccine (1 - Female 2-dose series) [place], [place] Start: 2005 Glaucoma screening Diabetes: R etinopathy Screening [facility] Start: 1996 Varicella Vaccine (1 of 2 - 2-dose childhood series) Varicella Vaccine (1 of 2 - 2-dose childhood series) [place], [place] Start: 1995 Glaucoma screening Diabetic Op hthalmology Exam [facility] Start: 1995 Urine screening for protein Urine Microalbumin [facility] End: 08-14-2025 Comprehensive metabolic 2000 panel - Serum or Plasma Comprehensive metabolic panel Lab Routine with type 2 diabetes mellitus in second trimester 1 Occurrences starting 08/14/2024 until 08/14/2025 [employer] Work Phone: Comment on above: 1 Occurrences starti ng 08/14/2024 until 08/14/2025 End: 08-14-2025 ECG 12 lead ECG 12 lead ECG Routine with type 2 diabetes mellitus in second trimester Long Q-T syndrome 1 Occurrences starting 08/14/2024 until 08/14/2025 [facility] [employer] Comment on above: 1 Occurrences starti ng 08/14/2024 until 08/14/2025 End: 08-14-2025 Thyroid profile includes TSH FT4 Thyroid profile includes TSH FT4 Lab Routine with type 2 diabetes mellitus in second trimester 1 Occurrences starting 08/14/2024 until 08/14/2025 [facility] Comment on above: 1 Occurrences starti ng 08/14/2024 until 08/14/2025 Immunizations Immunization Date Immunization Notes Care Provider Marilee hicks 09-06-2009 tetanus toxoid, redu keron diphtheria toxoid, and acellular pertussis vaccine, adsorbed Darío Floro CN Work Phone: [facility] 08-25-2007 meningococcal polysaccharide (groups A, C, Y and W-135) diphtheria toxoid conjugate vaccine (MCV4P) Darío Floro CN Work Phone: [facility] 08-25-2007 tetanus toxoid, redu keorn diphtheria toxoid, and acellular pertussis vaccine, adsorbed Darío Floro CN Work Phone: [facility] 08-25-2007 varicella virus vaccine [place] gabbie Floro CN Work Phone: [facility] 09-06-2000 diphtheria, tetanus toxoids and acellular pertussis vaccine, unspecified formulation Darío Floro CN Work Phone: [facility] 09-06-2000 measles, mumps and r ubella virus vaccine Darío Floro CN Work Phone: [facility] 09-06-2000 poliovirus vaccine, unspecified formulation Darío Floro CN Work Phone: [facility] 12-24-1996 varicella virus vaccine Madeline gabbie Floro [facility] Work Phone: [facility] 10-12-1996 diphtheria, tetanus toxoids and acellular pertussis vaccine, unspecified formulation Darío Floro CN Work Phone: [facility] 10-12-1996 haemophilus influenz ae type b vaccine, conjugate unspecified formulation Darío Floro [facility] Work Phone: [facility] 10-12-1996 measles, mumps and r ubella virus vaccine Darío Floro CN Work Phone: [facility] 02-25-1996 diphtheria, tetanus toxoids and acellular pertussis vaccine, unspecified formulation Darío Floro CN Work Phone: [facility] 02-25-1996 haemophilus influenz ae type b vaccine, conjugate unspecified formulation Darío Floro CN Work Phone: [facility] 02-25-1996 hepatitis B vaccine, pediatric or pediatric/adolescent dosage Darío Floro CNM Work Phone: [facility] 02-25-1996 poliovirus vaccine, unspecified formulation Darío Floro CNM Work Phone: [facility] 1995 diphtheria, tetanus toxoids and acellular pertussis vaccine, unspecified formulation Darío Floro CNM Work Phone: [facility] 1995 haemophilus influenz ae type b vaccine, conjugate unspecified formulation Darío Floro CNM Work Phone: [facility] 1995 poliovirus vaccine, unspecified formulation Darío Floro CNM Work Phone: [facility] 1995 diphtheria, tetanus toxoids and acellular pertussis vaccine, unspecified formulation Darío Floro CNM Work Phone: [facility] 1995 haemophilus influenz ae type b vaccine, conjugate unspecified formulation Darío Floro CNM Work Phone: [facility] 1995 hepatitis B vaccine, pediatric or pediatric/adolescent dosage Darío Floro CNM Work Phone: [facility] 1995 poliovirus vaccine, unspecified formulation Darío Floro CNM Work Phone: [facility] 1995 hepatitis B vaccine, pediatric or pediatric/adolescent dosage Darío Floro CNM Work Phone: [facility] Payers Date Payer Category Payer Unknown BCBS BCBS OUT OF STATE xxxxxxxxxxxx 2019-Present [address] [place] [address] xxxxxxxxxxxx [id number] 2019 [facility] [id number] 2019 Blue [employer] Blue [employer] - Other [id number]. [id number] 2019 Unknown [id number] 2016 Unknown [id number] 1.13.693.2. [id number] 1995 Unknown [id number] 2.16.840.1.838510.3.579.2. 173 1995 Unknown [id number] 2.16.840.1.880084.3.579.2. 1286 1995 Unknown [id number] 2.16.840.1.143949.3.579.2. 1286 1995 Unknown [id number] 2.16.840.1.505900.3.579.2. 1286 1995 Unknown [id number] 2.16.840.1.582699.3.579.2. 1286 1995 Unknown [id number] 2.16.840.1.388059.3.579.2. 1286 1995 Unknown [id number] 2.16.840.1.450439.3.579.2. 1286 1995 Unknown [id number] 2.16.840.1.498532.3.579.2. 1286 1995 Unknown [id number] 2.16.840.1.376348.3.579.2. 1286 1995 Unknown [id number] 2.16.840.1.120860.3.579.2. 1286 1995 Unknown [id number] 2.16.840.1.073078.3.579.2. 1286 1995 Unknown [id number] 2.16.840.1.360153.3.579.2. 1286 1995 Unknown [id number] 2.16.840.1.531754.3.579.2. 9 1995 Unknown [id number] 2.16.840.1.494149.3.579.2. 1258 1995 Unknown [id number] 2.16.840.1.017671.3.579.2. 1258 1995 Unknown [id number] 2.16.840.1.642432.3.579.2. 1258 1995 Unknown [id number] 2.16.840.1.784443.3.579.2. 1258 1995 Unknown [id number] 2.16.840.1.395549.3.579.2. 1258 1995 Unknown [id number] 2.16.840.1.456610.3.579.2. 1258 1995 Unknown [id number] 2.16.840.1.796594.3.579.2. 1258 1995 Unknown [id number] 2.16.840.1.424853.3.579.2. 1258 1995 Unknown [id number] 2.16.840.1.395200.3.579.2. 1258 1995 Unknown [id number] 2.16.840.1.006376.3.579.2. 1258 1995 Unknown [id number] 2.16.840.1.842268.3.579.2. 1258 1995 Unknown [id number] 2.16.840.1.022360.3.579.2. 1258 1995 Unknown [id number] 2.16.840.1.061631.3.579.2. 1258 1995 Unknown [id number] 2.16.840.1.643324.3.579.2. 1259 1995 Unknown [id number] 2.16.840.1.381635.3.579.2. 1259 1995 Unknown [id number] 2.16.840.1.472056.3.579.2. 1259 Social History Date Type Detail Facility [facility] ever [facility] Start: 1995 Sex Assigned At Not on file [facility] KSAMEND[facility] NEIL Start: 02-10-2023 End: 07-25-2024 Tobacco smoking status NHIS Never smoked tobacco [facility] Start: 02-10-2023 [...] to any clubs or organizations such as uatsdin groups, unions, fraternal or athletic groups, or [...] - these days [OSQ] Not at all [facility] (I/We) worried whekvng er (my/our) food would run out before (I/we) got money to buy more. Never true [facility] Start: 02-11-2023 Alcohol Comment 3 or 4 drinks on typical day / monthly or less. Caffeine: 1-2 cups/day [facility] Start: 1995 Sex assigned at Female [facility] Start: 02-08-2023 Gender identity Identifies as female gender (finding) [facility] Start: 05-16-2024 [facility] Start: 08-14-2024 End: 11-09-2024 Alcoholic beverage intake Ex-drinker (finding) [facility] Start: 03-19-2015 End: 07-25-2024 Sex Female (finding) [facility] Medical Equipment Procedure Code Equipment Code Equipment Origin al Text Equipment Identifier Dates [id number] Start: 11-29-2023 End: 11-28-2024 Check urine for ketones if blood sugar/glucose 200 or above daily as needed. Use as directed. [id number] Start: 08-14-2024 USE DIRECTED FIVE TIMES DAILY [id number] Start: 10-03-2024 Functional Status Date Assessment Result Facility 12-07-2024 Patient Health Quest ionnaire 2 item (PHQ-2) [Reported] [facility] Clinical Notes 05-03-2024 to 01-09-2025 Abby Saul MA - 01/09/2025 4:00 PM Jaylen Banuelos CNM - 01/09/2025 4:00 PM Jaylen Banuelos CNM - 12/26/2024 4:00 PM Stephanie Hughes LPN - 12/25/2024 10:20 AM EDT Note Date & Type Note Facility 01-09-2025 History of Presen t illness Narrative Subjective No chief complaint on file. Reginald Reyes is a 29 y.o. at 34w1d [...] in 1 week for a routine visit. Subjective No chief complaint on file. Reginald Reyes is a 29 y.o. at 34w1d [...] a routine visit. documented in this encounter [facility] 12-26-2024 History of Presen t illness Narrative [...] will do all nst's and bpp's at [place] per Dr Sam Objective Physical Exam Weight: [...] a routine visit. documented in this encounter [facility] 12-25-2024 History of Presen t illness [...] nursing note reviewed. Exam conducted with a net fisher present. Vitals: Estimated body mass index is [...] resulted Patient presents today for referral from [facility] due to Type 2 Diabetes and . Patient is setup for NST/BPP Bi-Weekly/Weekly at [facility]'s office. Patient voiced that she was seen at [facility] for anatomy Scan. Advised patient that it is preferred to have NST/BPP at [facility] for co-management in . Patient is agreeable with having location changed. Order will be given to patient today to have setup at [facility]. Discussed delivery with patient and if sugars are controlled well with insulin then she will be able to delivery at 39 weeks gestation, but if sugars are not well controlled then delivery would be recommended at 38 weeks to prevent issues with placenta. Patient is currently taking Aspirin 81mg daily. FHT 145, patient to continue care with [facility] and reach out to office with any concerns. Documented by Estelle Hughes LPN on behalf of: Henry Sam DO documented in this encounter [facility] 12-11-2024 History of Presen t illness [...] during . Managed by Awilda Crowley in [place]. Did see MFM Objective Physical Exam Expected [...] a routine visit. documented in this encounter [facility] 12-07-2024 History of Presen t illness [...] in the evening (1000 MG TABS) Labs [facility] HEMOGLOBIN A1C/HEMOGLOBIN.TOTAL:MFR:PT:BLD: QN: 5.7 Outpatient prescription Medication marked as long-term The ASCVD Risk score (Rogers DK, et al., 2019) failed to calculate [...] have any problems or questions.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 FoundDocuments on File Type Date Recorded 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 Expl anation Advance Directives and Living Will Power of Wind Project Manager Summary Purpose Family History No Family History Records FoundNo Family History Records FoundNo Family History Records FoundNo Family History Records FoundNo Family History Records Found Additional Source Comments INFORMATION SOURCE (unrecogn ized section and content) DATE CREATED AUTHOR 07/06/2019 Randi Moore [facility] DATE CREATED AUTHOR AUTHOR'S ORGANIZ ATION 08/14/2024 [facility] DATE CREATED AUTHOR AUTHOR'S ORGANIZ ATION 10/12/2024 [facility] DATE CREATED AUTHOR AUTHOR'S ORGANIZ ATION 11/09/2024 [facility] DATE CREATED AUTHOR AUTHOR'S ORGANIZ ATION 01/11/2025 [facility] dical Specialists EPIC Reason for Visit (unrecogniz ed section and content) Reason Comments Diabetes Reason Comments Type 2 Diabetes affecting Specialty Diagnoses / Procedures Referred By Michael felton Referred To Contact Maternal and Medicine Diagnoses Pre-existing type 2 diabetes mellitus in in first trimester Darío Banuelos, PLANT AND MACHINERY VALUER-CNM [address] [place] [address] Phone: tel: fax: Maternal- Medicine at [facility] [address] [place] [address] Phone: tel: fax: Referral ID Status Reason Start Date Expiration Date Visits Requested Visits Authorized [id number] Pending Review Specialty Services Required 4 07/25/2025 1 1 Reason Comments T2DM Reason Comments Gestational Diabetes Reason Comments Type 2 Diabetes Reason Comments 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 REF - Long Q-T sy ndrome SEEN CARDIO A CHILD 10 + YRS AGO SCHED W/PT Specialty Diagnoses / Procedures Referred By Michael felton Referred To Contact Cardiology Diagnoses Long Q-T syndrome Svetlana Jack, GIRISH [address] [address] Phone: tel: fax: [facility] Cardiology [address] [place] [address] Phone: tel: fax: Referral ID Status Reason Start Date Expiration Date Visits Requested Visits Authorized [id number] Pending Review Specialty Services Required 08/14/2025 1 1 Reason Comments 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 - ref by RRK for long QT syndrome - no labs/testing - appt sched w/ pt PATIENT IS 25 WEEKS Specialty Diagnoses / Procedures Referred By Contshruthi t Referred To Contact Cardiology Diagnoses Long Q-T syndrome Aye Saucedo MD [address] [place] [address] Phone: tel: fax: [facility] [address] [address] Phone: tel: fax: Referral ID Status Reason Start Date Expiration Date Visits Requested Visits Authorized [id number] Pending Review Specialty Services Required 09/19/2024 09/19/2025 1 1 Reason Comments Consult Patient is a Wanda Donnell ro referral to Dr. Sam for Type II diabetes insulin required. Specialty Diagnoses / Procedures Referred By Contac t Referred To Contact Obstetrics and Gynecology Diagnoses with type 2 diabetes mellitus in third trimester Procedures PA OFFICE/OUTPATIENT NEW HIGH MDM 60 MINUTES Darío Banuelos L, CNM [address] [place] [address] Phone: tel: fax: Henry Sam, [address] [place] [address] Phone: tel: fax: Referral ID Status Reason Start Date Expiration Date V isits Requested Visits Authorized [id number] Closed Specialty Services Required 12/20/2024 06/18/2025 1 1 Care Teams (unrecognized sec tion and content) Library Sales Consultant Relationship Specialty Start Date End Date Unallocated, Noms Provider, [address] [place] [address] PCP - General 04/16/23 Awilda Delatorre, DO [address] [place] [address] PCP - [place] [employer] 06/16/23 Darío Banuelos CN [address] [place] [address] Obstetrics and Gynecology 02/10/23 Library Sales Consultant Relationship Specialty Start Date End Date Unallocated, Francisco Javiers MD Dian [address] [place] [address] PCP - General 04/16/23 Awilda Delatorre, DO [address] [place] [address] PCP - [employer] [place] [employer] 06/16/23 Darío Banuelos, CATHIE [address] [place] [facility] [place] [address] Obstetrics and Gynecology 02/10/23 Library Sales Consultant Relationship Specialty Start Date End Date Unallocated, Danay Biggs MD [address] [place] [address] PCP - General 04/16/23 Awilda Delatorre, DO [address] [place] [address] PCP - [employer] [place] [employer] 06/16/23 Darío Banuelos CN [address] [place] [facility] [address] Obstetrics and Gynecology 02/10/23 Library Sales Consultant Relationship Specialty Start Date End Date Unallocated, Danay iBggs MD [address] [place] [address] PCP - General 04/16/23 Awilda Delatorre DO [address] [place] [address] [place] [address] PCP - [employer] [place] [employer] 06/16/23 Vin Darío L, CATHIE [address] [place] [facility] [place] [address] Obstetrics and Gynecology 02/10/23 Library Sales Consultant Relationship Specialty Start Date End Date Darío Banuelos PLANT AND MACHINERY VALUER-CNM [address] [place] [facility] [place] [address] PCP - General Nurse Citrix Architect 04/15/18 Library Sales Consultant Relationship Specialty Start Date End Date Sheebajacob DaríoERUM souzaN-CN [address] [place] [address] PCP - General Nurse Citrix Architect 04/15/18 Library Sales Consultant Relationship Specialty Start Date End Date Vin DaríoERUMN-CN [address] [place] [address] PCP - General Nurse Citrix Architect 04/15/18 Library Sales Consultant Relationship Specialty Start Date End Date Sheebajacob Darío PLANT AND MACHINERY VALUER-CN [address] [place] [address] PCP - General Nurse Citrix Architect 04/15/18 Library Sales Consultant Relationship Specialty Start Date End Date Vin Darío PLANT AND MACHINERY VALUER-CN [address] [place] [address] PCP - General Nurse Citrix Architect 04/15/18 Library Sales Consultant Relationship Specialty Start Date End Date Unallocated, Noms MD Dian [address] [place] [address] PCP - General 04/16/23 Awilda Delatorre, [address] [place] [address] PCP - [employer] 06/16/23 Darío Banuelos CNM [address] [place] [facility] [place] [address] Obstetrics and Gynecology 02/10/23 Library Sales Consultant Relationship Specialty Start Date End Date Vin DaríoBAMBI-[facility] [address] [place] [address] PCP - General Nurse Citrix Architect 04/15/18 Library Sales Consultant Relationship Specialty Start Date End Date VinDarío APRN-[facility] [address] [place] [address] PCP - General Nurse Citrix Architect 04/15/18 Library Sales Consultant Relationship Specialty Start Date End Date Darío BanuelosBAMBI-[facility] [address] [place] [address] PCP - General Nurse Citrix Architect 04/15/18 Library Sales Consultant Relationship Specialty Start Date End Date Darío Ban[facility]osBAMBI-[facility] [address] [place] [address] PCP - General Nurse Citrix Architect 04/15/18 Library Sales Consultant Relationship Specialty Start Date End Date Unallocated, Noms MD Dian [address] [facility] [place] [address] PCP - General 04/16/23 Awilda Delatorre, [address] [place] [address] PCP - [employer] 06/16/23 Darío Banuelos CNM [address] [place] [facility] [place] [address] Obstetrics and Gynecology 02/10/23 Library Sales Consultant Relationship Specialty Start Date End Date Unallocated, Noms Provider, [address] [place] [address] PCP - General 04/16/23 Awilda Delatorre, DO [address] [facility] [address] [place] [address] PCP - [employer] 06/16/23 Darío Banuelos CNM [address] [place] [address] Obstetrics and Gynecology 02/10/23 Library Sales Consultant Relationship Specialty Start Date End Date Unallocated, Noms Provider, [address] [place] [address] PCP - General 04/16/23 Awilda Delatorre, DO [address] [facility] [address] [place] [address] PCP - [employer] 06/16/23 Darío Banuelos CNM [address] [place] [facility] [place] [address] Obstetrics and Gynecology 02/10/23 Library Sales Consultant Relationship Specialty Start Date End Date Darío Banuelos APRN-SADIA [address] [place] [address] PCP - General Nurse Citrix Architect 04/15/18 Library Sales Consultant Relationship Specialty Start Date End Date Darío Banuelos [facility] [address] [place] [facility] [address] PCP - General Nurse Citrix Architect 04/15/18 Library Sales Consultant Relationship Specialty Start Date End Date Unallocated, Danay Biggs MD [address] [place] [address] PCP - General 04/16/23 Awilda Delatorre, DO [address] [place] [address] PCP - [employer] 06/16/23 Darío Banuelos CNM [address] [place] [address] Obstetrics and Gynecology 02/10/23 Library Sales Consultant Relationship Specialty Start Date End Date Unallocated, Danay Biggs MD [address] [place] [address] PCP - General 04/16/23 Awilda Delatorre, DO [address] [place] [address] PCP - [employer] 06/16/23 Darío Banuelos CN [address] [place] [address] Obstetrics and Gynecology 02/10/23 Library Sales Consultant Relationship Specialty Start Date End Date Unallocated, Danay Biggs MD [address] [place] [address] PCP - General 04/16/23 Awilda Delatorre, DO [address] [place] [address] PCP - [employer] 06/16/23 Darío Banuelos CNM [address] [place] [address] Obstetrics and Gynecology 02/10/23 Library Sales Consultant Relationship Specialty Start Date End Date Unallocated, Danay Biggs MD [address] [place] [address] PCP - General 04/16/23 Darío Banuelos CNM [address] [place] [address] Obstetrics and Gynecology 02/10/23 Library Sales Consultant Relationship Specialty Start Date End Date Unallocated, Danay Biggs MD [address] [place] [address] PCP - General 04/16/23 Darío Banuelos CNM [address] [place] [address] Obstetrics and Gynecology 02/10/23 Library Sales Consultant Relationship Specialty Start Date End Date Unallocated, Danay Biggs MD [address] [place] [address] PCP - General 04/16/23 Darío Banuelos CNM [address] [place] [address] Obstetrics and Gynecology 02/10/23 Library Sales Consultant Relationship Specialty Start Date End Date Unallocated, Danay Biggs MD [address] [place] [address] PCP - General 04/16/23 Darío Banuelos CNM [address] [place] [address] Obstetrics and Gynecology 02/10/23 Library Sales Consultant Relationship Specialty Start Date End Date Unallocated, Danay Biggs MD [address] [place] [address] PCP General 04/16/23 Darío Banuelos CNM [address] [place] [address] Obstetrics and Gynecology 02/10/23 Library Sales Consultant Relationship Specialty Start Date End Date Unallocated, Danay Biggs MD [address] [place] [address] [facility] General 04/16/23 Darío Banuelos CNM [address] [place] [address] Obstetrics and Gynecology 02/10/23 Library Sales Consultant Relationship Specialty Start Date End Date Unallocated, Danay Biggs MD [address] [place] [address] [facility] 04/16/23 Darío Banuelos CNM [address] [place] [address] Obstetrics and Gynecology 02/10/23 FOR RECORDS PERTAINING [...] BE BASED ON THE PRIMARY CLINICAL RECORDS. [facility]. provides no warranty or guarantee of the accuracy or completeness of information in this document.
[2025-01-12 07:45] VITALS: BP 129/67; PULSE 90
== END 2025-01-12 08:08 | disposition home or self-care (01) ==
LOC: US 07:02 → FBC 07:04
PROVIDERS: Visit Provider Obstetrics & Gynecology
DX: O24.113 Pre-existing type 2 diabetes mellitus, in pregnancy, third trimester (principal); Z3A.35 35 weeks gestation of pregnancy
CPT/HCPCS: 76816; 76818

== ENCOUNTER 2025-01-16 07:06 | Outpatient (OUT) | payer BC, SELFPAY ==
--- OUTSIDE RECORDS SUMMARY | 2025-01-09 16:00 | XMS_ITS | Encounter Summary ---
Author Organization [facility] Address [address] [place] [address] Care Team Providers Care Business Controller Name Role Phone Flaquita Banuelos CN Unavailable [phone] Unallocated, Noms Provider MD Primary Care Provi mart Encounter Details Date Type Department Care Team (Latest Contact Info) Description 01/09/2025 4:00 PM EDT Routine [facility] OB [address] [place] [address] Flaquita Banuelos, CNM [address] [place], [place] [id number] 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 mellitus treated with insulin ([facility]) (Primary Dx); Encounter for care of first , third trimester Social History Tobacco Use Types [...] any clubs o r organizations such as muslim groups, unions, fraternal or athletic groups, or [...] Patient Health Questionnaire-2 Score 0 12/07/2024 [facility] [place] of Occupat ional Health - Occupational Stress [...] place to sleep or slept in a snf (including now)? No 04/09/2023 Housing Stability Vital Sign Answer Raul e Recorded In the last 12 months, was t here a time when you were not able to pay the mortgage or rent on time? No 06/07/2024 In the past 12 months, how m any times have you moved where you were living? 0 06/07/2024 At any time in the past 12 m [facility], were you homeless or living in a snf (including now)? No 06/07/2024 Estimated Date of [...] Sign Reading Time Taken Comments Blood Pressure 120/74 01/09/2025 4:34 PM EDT Pulse - - Temperature - - Respiratory Rate - - Oxygen Saturation - - Inhaled Oxygen Concentration - - Weight 110 kg (242 lb) 01/09/2025 4:34 PM EDT Height - - Body Mass Index 34.72 12/07/2024 8:17 AM EDT documented in this encounter Progress Notes * Abby Saul MA - 01/09/2025 4:00 PM EDT Subjective No chief complaint on file. Kellie Reyes is a 29 y.o. at 34w1d with a working estimated date of delivery [...] Lv 1 Current Her is complicated by: Objective Physical Exam Weight: 242 lb Expected Total Weight Gain: 11 lb-19 lb Pregravid BMI: 35.30 BP: 120/74 Urine protein-negative Urine glucose-negative Assessment/Plan Continue vitamin. Labs reviewed. GBS taken. Expected mode of delivery Follow up in 1 week for a routine visit. * Flaquita Banuelos CNM - 01/09/2025 4:00 PM EDT Subjective No chief complaint on file. Kellie Reyes is a 29 y.o. at 34w1d with a working estimated date of delivery [...] Lv 1 Current Her is complicated by: Obesity, type 2 diabetes, insulin required The following portions of the chart were reviewed this encounter and updated as appropriate: Objective Physical Exam Weight: 242 lb, Pregravid BMI: 35.30 Expected Total Weight Gain: 11 lb-19 lb BP: 120/74 Labs Imaging Assessment/Plan Urine protein negative Urine glucose negative Continue vitamin. Labs reviewed. Follow up in 1 week for a routine visit. documented in this encounter Plan of Treatment Upcoming Encounters Date Type Department Care Team (Latest Contact Info) Description 01/18/2025 8:30 AM EDT Office Visit [facility] [address] [place] [address] Awilda Crenshaw DO [address] [place] [address] with type 2 diabetes mellitus in third trimester 01/22/2025 4:30 PM EDT Routine [facility] [address] [place] [address] Flaquita Banuelos CNM [address] [facility] [address] 01/29/2025 4:30 PM EDT Routine [facility] [address] [place] [address] Flaquita Banuelos CNM [address] [facility] [place] [address] 02/06/2025 4:30 PM EDT Routine [facility] [address] [place] [address] Flaquita Banuelos CNM [address] [facility] [place] [address] 02/12/2025 4:30 PM EDT Routine [facility] [address] [place] [address] Flaquita Banuelos CNM [address] [place] [address] documented as of this encounter Visit Diagnoses Diagnosis 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 mellitus treated with insulin ([facility])- Primary Encounter for care of first , third trimester with type 2 diabetes mellitus in third trimester documented in this encounter Care Teams Business Controller Relationship Specialty Start Date End Date Unallocated, Noms Provider, [place] [address] PCP - General 04/16/23 Flaquita Banuelos CNM [address] [place], [place] [phone] Obstetrics and Gynecology 02/10/23 documented as of this encounter
--- OUTSIDE RECORDS SUMMARY | 2025-01-15 16:30 | XMS_ITS | Encounter Summary ---
Author Organization [facility] Address [address] [place] [address] Care Team Providers Care Swim Coach Name Role Phone Flaquita Banuelos CN Unavailable [phone] Unallocated, Noms Provider Primary Care Provi mart Encounter Details Date Type Department Care Team (Latest Contact Info) Description 01/15/2025 4:30 PM EDT Routine [facility] FNR OB [address] [place] [address] Flaquita Banuelos, CNM [address] [place], [place] [id number] 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 mellitus without complication, without long-term current use of insulin (Primary Dx); with type 2 diabetes mellitus in third [...] How often do you attend chur or synagogue services? More than 4 times per year [...] Recorded Patient Health Questionnaire-2 Score 0 12/07/2024 [facility] [place] of Occupat ional Health - Occupational Stress [...] any time in the past 12 m [facility], were you homeless or living in [...] Sign Reading Time Taken Comments Blood Pressure 120/78 01/15/2025 4:36 PM EDT Pulse - - Temperature - - Respiratory Rate - - Oxygen Saturation - - Inhaled Oxygen Concentration - - Weight 110 kg (243 lb) 01/15/2025 4:36 PM EDT Height - - Body Mass Index 34.87 12/07/2024 8:17 AM EDT documented in this encounter Progress Notes * Flaquita Banuelos CNM - 01/15/2025 4:30 PM EDT Subjective No chief complaint on file. Kellie Reyes is a 29 y.o. at 35w0d with a working estimated date of delivery [...] PTL Lv 1 Current Her is complicated : type 2 diabetes requiring insulin No c/o Objective Physical Exam Weight: 243 lb Expected Total Weight Gain: 11 lb-19 lb Pregravid BMI: 35.30 Urine protein-negative Urine glucose-negative Assessment/Plan Continue vitamin. Labs reviewed. GBS taken. Expected mode of delivery vaginal Follow up in 1 week for a routine visit. documented in this encounter Plan of Treatment Upcoming Encounters Date Type Department Care Team (Latest Contact Info) Description 01/18/2025 8:30 AM EDT Office Visit [facility] SWS FM [address] [facility] [address] [place] [address] Awilda Crenshaw, [address] [facility] [address] [place] [address] with type 2 diabetes mellitus in third trimester 01/22/2025 4:30 PM EDT Routine [facility] FNR OB [address] [place] [address] Flaquita Banuelos CNM [address] [place] [address] 01/29/2025 4:30 PM EDT Routine [facility] FNR OB [address] [place] [address] Flaquita Banuelos CNM [address] [facility] [place] [address] 02/06/2025 4:30 PM EDT Routine [facility] FNR OB [address] [place] [address] Flaquita Banuelos, CATHIEM [address] [facility] [place] [address] 02/12/2025 4:30 PM EDT Routine [facility] FNR OB [address] [place] [address], [place] [address] Flaquita Banuelos CNM [address] [facility] [place] [address] documented as of this encounter Visit Diagnoses Diagnosis 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 mellitus without complication, without long-term current use of insulin- Primary with type 2 diabetes mellitus in third trimester with type 2 diabetes mellitus in third trimester documented in this encounter Care Teams Swim Coach Relationship Specialty Start Date End Date Unallocated, Noms Provider, [address] [place] [address] PCP - General 04/16/23 Flaquita Banuelos CNM [address] [place] [address] Obstetrics and Gynecology 02/10/23 documented as of this encounter
--- OUTSIDE RECORDS SUMMARY | 2025-01-16 07:09 | XMS_ITS | Encounter Summary ---
Author Organization [facility] Address [address] [place] [address] Care Team Providers Care Pinion Staker Name Role Phone Flaquita Banuelos CNM Unavailable [phone] Unallocated, Noms Provider Primary Care Provi mart Encounter Details Date Type Department Care Team (Late st Contact Info) Description 12/07/2024 [facility] [address] [place] [address] Unallocated, Noms Provider, [address] [place], [place] [phone] Social History Tobacco Use Types Packs/Day Years [...] Recorded Patient Health Questionnaire-2 Score 0 12/07/2024 [facility] of Occupat ional Health - Occupational [...] [address] [address] [place] [address] Awilda Crenshaw, DO [address] [place] [address] [place] [address] with type 2 diabetes mellitus in third trimester 01/22/2025 4:30 PM EDT Routine [facility] FNR OB [address] [place] [address] Flaquita Banuelos, CNM [address] [place] [address] 01/29/2025 4:30 PM EDT Routine [facility] FNR OB [address] [place] [address] Flaquita Banuelos, CNM [address] [place] [address] 02/06/2025 4:30 PM EDT Routine [facility] FNR OB [address] [place] [address] Flaquita Banuelos, CNM [address] [place] [address] 02/12/2025 4:30 PM EDT Routine [facility] FNR OB [address] [place] [address] Flaquita Banuelos, CNM [address] [place] [address] documented as of this encounter Visit Diagnoses Not on filedocumented in this encounter Care Teams Pinion Staker Relationship Specialty Start Date End Date Unallocated, Noms Provider, [place] [address] PCP - General 04/16/23 Flaquita Banuelos CNM [address] [place] [address] Obstetrics and Gynecology 02/10/23 documented as of this encounter
--- OUTSIDE RECORDS SUMMARY | 2025-01-16 07:09 | XMS_ITS | Encounter Summary ---
Author Organization [facility] Address [address] [place] [address] Care Team Providers Care Chiropractor Sole Practitioner Name Role Phone Flaquita Banuelos CNM Unavailable [phone] Unallocated, Noms Provider Primary Care Provi mart Awilda Crenshaw DO Unavailable [phone] Encounter Details Date Type Department Care Team (Late st Contact Info) Description 10/20/2024 Abstract [facility] [address] [place] [address] Awilda Crenshaw, DO [address] [facility] 230 [place] [address] Social History Tobacco Use Types Packs/Day Years [...] How often do you attend chur or sikhism services? More than 4 times [...] Recorded Patient Health Questionnaire-2 Score 0 10/09/2024 [facility] [place] of Occupat ional Health - Occupational Stress [...] [address] [address] [place] [address] Awilda Crenshaw, DO [address] [address] [place] [address] with type 2 diabetes mellitus in third trimester 01/22/2025 4:30 PM EDT Routine [facility] FNR OB [address] [place] [address] Flaquita Banuelos, CNM [address] [place] [address] 01/29/2025 4:30 PM EDT Routine [facility] FNR OB [address] [place] [address] Flaquita Banuelos, CNM [address] [place] [address] 02/06/2025 4:30 PM EDT Routine [facility] FNR OB [address] [place] [address] Flaquita Banuelos, CNM [address] [place] [address] 02/12/2025 4:30 PM EDT Routine [facility] FNR OB [address] [place] [address] Flaquita Banuelos, CNM [address] [place] [address] documented as of this encounter Visit Diagnoses Not on filedocumented in this encounter Care Teams Chiropractor Sole Practitioner Relationship Specialty Start Date End Date Unallocated, Noms Provider, [address] [place] [address] PCP - General 04/16/23 Awilda Crenshaw, DO [address] [place] [address] PCP - [employer] 06/16/23 Flaquita Banuelos CNM [address] [place] [address] Obstetrics and Gynecology 02/10/23 documented as of this encounter
--- OUTSIDE RECORDS SUMMARY | 2025-01-16 07:09 | XMS_ITS | Encounter Summary ---
Author Organization [facility] Address [address] [place] [address] Care Team Providers Care Auto Technician Name Role Phone Flaquita Banuelos CNM Unavailable [phone] Unallocated, Noms Provider Primary Care Provi mart Encounter Details Date Type Department Care Team (Late st Contact Info) Description 12/20/2024 Results Follow-Up [facility] FNR OB [address] [place] [address] Flaquita Banuelos, CNM [address] [place], [place] [address] Social History Tobacco Use Types Packs/Day Years [...] any clubs o r organizations such as nondenominational groups, unions, fraternal or athletic groups, or [...] Health Questionnaire-2 Score 0 12/07/2024 [facility] of Occupat ional Health - Occupational [...] any time in the past 12 m [facility], were you homeless or living in [...] 01/18/2025 8:30 AM EDT Office Visit [facility] FM [address] [place] [address] Awilda Crenshaw, DO [address] [place] [address] [place] [address] with type 2 diabetes mellitus in third trimester 01/22/2025 4:30 PM EDT Routine [facility] FNR OB [address] [facility] [place] [address] Flaquita Banuelos, CNM [address] [place] [address] 01/29/2025 4:30 PM EDT Routine [facility] FNR OB [address] [facility] [place] [address] Flaquita Banuelos, CN [address] [place] [place] [address] 02/06/2025 4:30 PM EDT Routine [facility] FNR OB [address] [facility] [place] [address] Flaquita Banuelos, CN [address] [place] [place] [address] 02/12/2025 4:30 PM EDT Routine [facility] FNR OB [address] [facility] [place] [address] Flaquita Banuelos, CN [address] [facility] [place] [address] documented as of this encounter Visit Diagnoses Not on filedocumented in this encounter Care Teams Auto Technician Relationship Specialty Start Date End Date Unallocated, Noms Provider, [place] [address] PCP - General 04/16/23 Flaquita Banuelos CNM [address] [place] [address] Obstetrics and Gynecology 02/10/23 documented as of this encounter
--- OUTSIDE RECORDS SUMMARY | 2025-01-16 07:09 | XMS_ITS | Encounter Summary ---
Author Organization [facility] Address [address] [place] [address] Care Team Providers Care City Auditor Name Role Phone Vin Flaquita Mccoy CNM Unavailable [phone] Unallocated, Noms Provider Primary Care Provi mart Encounter Details Date Type Department Care Team (Late st Contact Info) Description 01/05/2025 Clinisync Result Encounter N[facility] External Department Unsolicited Nick Sam, DO [address] [facility] [place] [address] Social History Tobacco Use Types Packs/Day Years [...] How often do you attend chur or yarsanism services? More than 4 times per year [...] Recorded Patient Health Questionnaire-2 Score 0 12/07/2024 [facility] of Occupat ional Health - Occupational [...] any time in the past 12 m [facility], were you homeless or living [...] Visit [facility] SWS FM [address] [place] [address] Petznick, Awilda M, DO [address] [place] [address] with type 2 diabetes mellitus in third trimester 01/22/2025 4:30 PM EDT Routine [facility] FNR OB [address] [facility] [place] [address] Flaquita Banuelos, CN [address] [facility] [place] [address] 01/29/2025 4:30 PM EDT Routine [facility] FNR OB [address] [facility] [place] [address] Flaquita Banuelos, CN [address] [facility] [place] [address] 02/06/2025 4:30 PM EDT Routine [facility] FNR OB [address] [facility] [place] [address] Flaquita Banuelos, CNM [address] [facility] [place] [address] 02/12/2025 4:30 PM EDT Routine [facility] FNR OB [address] [facility] [place] [address] Flaquita Banuelos, CN [address] [facility] [place] [address] documented as of this encounter Procedures Procedure Name Priority Date/Time Associated Diagnosis Comments US OB BPP W NON-STRESS 01/05/2025 3:27 PM EDT documented in this encounter Results * US OB BPP W NON-STRESS (01/05/2025 3:27 PM EDT) Anatomical Region Laterality Modality Other 01/05/2025 3:27 PM EDT Narrative 01/05/2025 3:29 PM EDT The [address] [address] Ultrasound Report Signed Patient: REGINALD REYES MR#: [id number] : 1995 Acct:[id number] Age/Sex: 29 / F ADM Date: 01/05/25 Loc: US Attending Dr: Nick Sam D.O. Ordering Physician: Nick Sam D.O. Date of Service: 01/05/25 Procedure(s): US OB BPP w non-stress Accession Number(s): [id number] cc: Nick Sam D.O.; Physician,Non-Staff Magaly The [place] [address] Patient Name: REGINALD REYES MRN: [id number] date: 1995 Sex: F Assigned Patient Location: [facility] Current Patient Location: Accession/Order Number: [id number] Exam Date: 01/05/2025 15:26 Report Date: 01/05/2025 [...] Love M.D. 01/05/2025 3:27 PM Dictation Location: [place] [address] Electronically authenticated by: [id number] Y Date: 01/05/2025 15:27 Dictated By: Pradip Love D.O. Signed By: 01/05/25 1529 DD/ 1527 TD/TT: Environmental Conservation Officer: Procedure Note Radiology, Radiologist, - 01/05/2025 The [place] [id number] Ultrasound Report Signed Patient: REGINALD REYES MMR#: [id number] : 1995Acct:[id number] Age/Sex: 29 / FADM Date: 01/05/25 Loc: US Attending Dr: Nick Sam D.O. Ordering Physician: Nick Sam D.O. Date of Service: 01/05/25 Procedure(s): US OB BPP w non-stress Accession Number(s): [id number] cc: Nick Sam D.O.; Physician,Non-Staff [place] [address] Patient Name: REGINALD REYES MRN: [facility]:[id number] date: 1995 Sex: F Assigned Patient Location: [facility] Current Patient Location: [place] Accession/Order Number: [id number] Exam Date: 01/05/2025 15:26 Report Date: 01/05/2025 [...] Love M.D. 01/05/2025 3:27 PM Dictation Location: [place] [address] Electronically authenticated by: [id number] Y Date: 5:27 Dictated By: Pradip Love D.O. Signed By:01/05/25 1529 DD/ 1527 TD/TT: Environmental Conservation Officer: Nick Sam DO [facility] Final Result documented in this encounter Visit Diagnoses Not on filedocumented in this encounter Care Teams City Auditor Relationship Specialty Start Date End Date Unallocated, Noms Provider, MD Bri SMITH [place] [id number] PCP - General 04/16/23 Flaquita Banuelos CNM [address] [place] [address] Obstetrics and Gynecology 02/10/23 documented as of this encounter
--- OUTSIDE RECORDS SUMMARY | 2025-01-16 07:09 | XMS_ITS | Clinical Summary ---
Author Organization [employer] Address [id number] [address] [place] [address] Care Team Providers Care Machine Steak Tenderizer Name Role Phone SheebaWanda sanchezDaríolibby LACY-CNM Primary Care Provider [phone] Allergies No known active allergies Medications metFORMIN [...] Cardiology [address] [place] [address] Robby Quezada MD Goyal, Vishal, MD Long Q-T syndrome (Primary Dx); Hx of prolonged Q-T interval on ECG 11/07/2024 Telephone [facility] [address] [place] [address] Abby Andino CMA 11/07/2024 Travel 11/06/2024 Travel 10/31/2024 8:00 AM EDT - 10/31/2024 11:59 PM EDT Hospital Encounter [facility] - Ultrasound [address] [place] [address] Encounter for other screening follow-up; Pre-existing type [...] 9:07 AM EDT) Anatomical Region Laterality Modality OB-WEB DESIGNER Ultrasound 10/31/2024 8:09 AM EDT Narrative 10/31/2024 3:59 PM EDT NAME: GEOVANNY MONTELONGO : 1995 SEX: F Accession Number: [id number] ORDERING PHYSICIAN: JAXON TURCIOS REFERRING PHYSICIAN: DARÍO BANUELOS Coding ----- --------- Procedures 53754: Follow-up Ultrasound, per fetus [address]: Echocardiography, , cardiovascular system, real time with [...] 1 lb 10 oz EFW by Hadlock ([id number]) Head / Face / Neck Biometry: Cephalic index 0.78 45% Nicolaides Antiquer 6.6 mm CM 3.9 mm 4% Nicolaides [...] view. RVOT view. LVOT view. 3-vessel view. 1-gdqhfe-xqwtyzp view. Great vessels. Right lung. Left lung. [...] normal RVOT view normal 3-vessel view normal 0-ashmcq-xxhlffu view normal Aortic arch view documented previously [...] Note Jaxon Turcios MD - 10/31/2024 NAME: GEOVANNY MONTELONGO : 1995 SEX: F Accession Number: [id number] ORDERING PHYSICIAN: JAXON TURCIOS REFERRING PHYSICIAN: DRAÍO BANUELOS Coding ----- --------- Procedures [id number]: Follow-up Ultrasound, per fetus [address]: Echocardiography, , cardiovascular system, real timewith image [...] 1 lb 10 oz EFW by Hadlock ([id number]) Head / Face / Neck Biometry: Cephalic index 0.78 45% Nicolaides Antiquer 6.6 mm CM 3.9 mm 4% Nicolaides Extremities / Bony Struc Biometry: FL / BPD 0.73 FL / HC 0.20 FL / AC 0.21 Tibia 38.6 mm 24w 5d 65% Rachelle Anatomy ----- --------- The following structures appear normal: Head/Neck: Cranium. Lateral ventricles. Cavum septi pellucidi. Cerebellum.Cisterna magna. Parenchyma. Face: Lips. Profile. Nose. Nasal bone. Heart/Thorax: 4-chamber view. RVOT view. LVOT view. 3-vessel view.6-tpjmie-ibfizea view. Great vessels. Right lung. Left lung. [...] normal RVOT view normal 3-vessel view normal 7-bkudek-wwldznz view normal Aortic arch view documented previously [...] byprimary OB provider unless otherwise specified by [facility]. Results forwarded to ordering provider so they can follow up with thepatient as necessary. us Jaxon Turcios MD [facility] ORDERABLES Final Re sult from Last 3 Months Insurance [employer] Care Teams Machine Steak Tenderizer Relationship Specialty Start Date End Date Darío Banuelos APRN-CNM [address] [place] [address] PCP - General Nurse Recovery Specialist 04/15/18
--- OUTSIDE RECORDS SUMMARY | 2025-01-16 07:09 | XMS_ITS | Encounter Summary ---
Author Organization [facility] Address [address] [place] [address] Care Team Providers Care Social Work Associate Name Role Phone Flaquita Banuelos CNM Unavailable [phone] Unallocated, Noms Provider Primary Care Provi mart Encounter Details Date Type Department Care Team (Late st Contact Info) Description 01/09/2025 Bamboo flowsheet [facility] OB [address] [place] [address] Flaquita Banuelos, CNM [address] [place], [place] [id number] Social History Tobacco Use Types Packs/Day Years [...] How often do you attend chur or zoroastrian services? More than 4 times per year 06/07/2024 Do you belong to any clubs o r organizations such as shinto groups, unions, fraternal or athletic groups, or [...] Recorded Patient Health Questionnaire-2 Score 0 12/07/2024 [facility] of Occupat ional Health - [...] SASHA FM [address] [place] [address] Awilda Crenshaw M, DO [address] [place] [address] with type 2 diabetes mellitus in third trimester 01/22/2025 4:30 PM EDT Routine [facility] OB [address] [place] [address] Flaquita Banuelos, CNM [address] [place] [address] 01/29/2025 4:30 PM EDT Routine [facility] OB [address] [place] [address] Flaquita Banuelos, CN [address] [place] [address] 02/06/2025 4:30 PM EDT Routine [facility] OB [address] [place] [address] Flaquita Banuelos, CN [address] [place] [address] 02/12/2025 4:30 PM EDT Routine [facility] OB [address] [place] [address] Flaquita Banuelos, CN [address] [place] [address] documented as of this encounter Visit Diagnoses Not on filedocumented in this encounter Care Teams Social Work Associate Relationship Specialty Start Date End Date Unallocated, Noms Provider, [place] [address] PCP - General 04/16/23 Flaquita Banuelos CNM [address] [place] [address] Obstetrics and Gynecology 02/10/23 documented as of this encounter
--- OUTSIDE RECORDS SUMMARY | 2025-01-16 07:09 | XMS_ITS | Encounter Summary ---
Author Organization [facility] Address [address] [place] [address] Care Team Providers Care Railroad Conductor Name Role Phone Vin Flaquita Mccoy CNM Unavailable [phone] Unallocated, Noms Provider Primary Care Provi mart Encounter Details Date Type Department Care Team (Late st Contact Info) Description 12/27/2024 Results Follow-Up [facility] OB [address] [place] [address] Abby Saul MA Social History [...] any clubs o r organizations such as spiritism groups, unions, fraternal or athletic groups, or [...] any time in the past 12 m [facility], were you homeless or living in [...] [address] [place] [address] Awilda Crenshaw, [address] [place] [address] with type 2 diabetes mellitus in third trimester 01/22/2025 4:30 PM EDT Routine [facility] OB [address] [facility] [place] [address] Flaquita Banuelos, CNM [address] [place] [address] 01/29/2025 4:30 PM EDT Routine [facility] OB [address] [facility] [place] [address] Flaquita Banuelos, CNM [address] [place] [address] 02/06/2025 4:30 PM EDT Routine [facility] OB [address] [facility] [place] [address] Flaquita Banuelos, CNM [address] [place] [address] 02/12/2025 4:30 PM EDT Routine [facility] OB [address] [facility] [place] [address] Flaquita Banuelos, CNM [address] [place] [address] documented as of this encounter Visit Diagnoses Not on filedocumented in this encounter Care Teams Railroad Conductor Relationship Specialty Start Date End Date Unallocated, Noms Provider, [address] [place] [address] PCP - General 04/16/23 Flaquita Banuelos CNM [address] [place] [address], [place] [address] Obstetrics and Gynecology 02/10/23 documented as of this encounter
--- OUTSIDE RECORDS SUMMARY | 2025-01-16 07:09 | XMS_ITS | Encounter Summary ---
Author Organization [facility] Address [address] [place] [address] Care Team Providers Care Grading Clerk Name Role Phone Flaquita Banuelos CNM Unavailable [phone] Unallocated, Noms Provider Primary Care Provi mart Awilda Crenshaw DO Unavailable [phone] Encounter Details Date Type Department Care Team (Late st Contact Info) Description 11/03/2024 [facility] [address] [place] [address] Awilda Crenshaw, DO [address] [facility] [address] [place] [address] Social History Tobacco Use Types Packs/Day Years [...] How often do you attend chur or protestant services? More than 4 times per year [...] Questionnaire-2 Score 0 10/09/2024 [facility] [place] of Occupat ional Health - Occupational Stress [...] place to sleep or slept in a assisted (including now)? No 04/09/2023 Housing Stability Vital Sign Answer Raul e Recorded In the last 12 months, was t here a time when you were not able to pay the mortgage or rent on time? No 06/07/2024 In the past 12 months, how m any times have you moved where you were living? 0 06/07/2024 At any time in the past 12 m [facility], were you homeless or living in a assisted (including now)? No 06/07/2024 Estimated Date of [...] [address] [place] [address] Awilda Crenshaw, DO [address] [place] [address] with type 2 diabetes mellitus in third trimester 01/22/2025 4:30 PM EDT Routine [facility] OB [address] [place] [address] Flaquita Banuelos, CNM [address] [place] [address] 01/29/2025 4:30 PM EDT Routine [facility] OB [address] [place] [address] Flaquita Banuelos, CNM [address] [place] [address] 02/06/2025 4:30 PM EDT Routine [facility] OB [address] [place] [address] Flaquita Baunelos, CNM [address] [place] [address] 02/12/2025 4:30 PM EDT Routine [facility] OB [address] [place] [address] Flaquita Banuelos, CNM [address] [place] [address] documented as of this encounter Visit Diagnoses Not on filedocumented in this encounter Care Teams Grading Clerk Relationship Specialty Start Date End Date Unallocated, Noms Provider, [address] [place] [address] PCP - General 04/16/23 Awilda Crenshaw, DO [address] [place] [address] PCP - [employer] 06/16/23 Flaquita Banuelos CNM [address] [place] [address] Obstetrics and Gynecology 02/10/23 documented as of this encounter
--- OUTSIDE RECORDS SUMMARY | 2025-01-16 07:09 | XMS_ITS | Encounter Summary ---
Author Organization [facility] Address [address] [place] [address] Care Team Providers Care Straw Hat Plunger Operator Name Role Phone Lin Banuelosamita Mccoy CNM Unavailable [phone] Unallocated, Noms Provider Primary Care Provi mart Encounter Details Date Type Department Care Team (Late st Contact Info) Description 01/12/2025 Telephone [facility] OB [address] [place] [address] Estelle Hughes LPN Social History Tobacco Use Types Packs/Day Years [...] How often do you attend chur or restorationism services? More than 4 times per year 06/07/2024 Do you belong to any clubs o r organizations such as caodaism groups, unions, fraternal or athletic groups, or [...] Recorded Patient Health Questionnaire-2 Score 0 12/07/2024 [facility] of Occupat ional Health - Occupational [...] any time in the past 12 m [facility], were you homeless or living [...] on file documented as of this encounter Miscellaneous Notes * Telephone Encounter - Estelle Hughes LPN - 01/12/2025 1:36 PM EDT [facility] called and requested orders be sent for growth and Dr. Sam gave verbal orders for patientto have NST/BPP/Growth obtained and [facility] only received NST/BPP orders. Nursing will send order. --Estelle Betts LPN documented in this encounter Plan of Treatment Upcoming Encounters Date Type Department Care Team (Latest Contact Info) Description 01/18/2025 8:30 AM EDT Office Visit [facility] [address] [place] [address] Awilda Crenshaw, DO [address] [place] [address] with type 2 diabetes mellitus in third trimester 01/22/2025 4:30 PM EDT Routine [facility] OB [address] [facility] [place] [place] [address] Flaquita Banuelos, [facility] [address] [place] [address] 01/29/2025 4:30 PM EDT Routine [facility] OB [address] [facility] [place] [place] [address] Flaquita Banuelos, CN [address] [place] [address] 02/06/2025 4:30 PM EDT Routine [facility] OB [address] [facility] [place] [address] Flaquita Banuelos, CN [address] [place] [address] 02/12/2025 4:30 PM EDT Routine [facility] OB [address] [facility] [place] [place] [address] Flaquita Banuelos, CN [address] [place] [address] Scheduled Orders Name Type Priority Associated Diagnoses Orde r Schedule US OB follow up transabdominal approach Imaging Routine Mixed hyperlipidemia (CMS/HCC) 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 mellitus without complication, without long-term current use of insulin with type 2 diabetes mellitus in third trimester Expected: 01/12/2025, Expires: 05/15/2025 documented as of this encounter Visit Diagnoses Diagnosis Mixed hyperlipidemia (CMS/HCC) Mixed hyperlipidemia 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 mellitus without complication, without long-term current use of insulin with type 2 diabetes mellitus in third trimester with type 2 diabetes mellitus in third trimester documented in this encounter Care Teams Straw Hat Plunger Operator Relationship Specialty Start Date End Date Unallocated, Noms Provider, [address] [place] [address] PCP - General 04/16/23 Flaquita Banuelos CNM [address] [place] [address] Obstetrics and Gynecology 02/10/23 documented as of this encounter
--- OUTSIDE RECORDS SUMMARY | 2025-01-16 07:09 | XMS_ITS | Encounter Summary ---
Author Organization [facility] Address [address] [place] [address] [place] [address] Care Team Providers Care Sifting Operator Name Role Phone Flaquita Banuelos CNM Unavailable [phone] Unallocated, Noms Provider Primary Care Provi mart Encounter Details Date Type Department Care Team (Late st Contact Info) Description 11/30/2024 Abstract [facility] [address] [place] [address] Awilda Crenshaw, DO [address] [place] [address] Social History Tobacco Use Types Packs/Day Years [...] How often do you attend chur or restoration services? More than 4 times per year 06/07/2024 Do you belong to any clubs o r organizations such as evangelical groups, unions, fraternal or athletic groups, or [...] Recorded Patient Health Questionnaire-2 Score 0 10/09/2024 [facility] of Occupat ional Health - [...] in the past 12 m [facility], were you homeless or living in [...] Visit [facility] FM [address] [place] [address] Awilda Crenshaw, DO [address] [place] [address] with type 2 diabetes mellitus in third trimester 01/22/2025 4:30 PM EDT Routine [facility] FNR OB [address] [facility] [place] [address] Flaquita Banuelos, CNM [address] [place] [address] 01/29/2025 4:30 PM EDT Routine [facility] FNR OB [address] [facility] [place] [address] Flaquita Banuelos, CNM [address] [place] [address] 02/06/2025 4:30 PM EDT Routine [facility] OB [address] [facility] [place] [address] Flaquita Banuelos, CNM [address] [place] [address] 02/12/2025 4:30 PM EDT Routine [facility] OB [address] [facility] [place] [address] Flaquita Banuelos, CN [address] [place] [address] documented as of this encounter Visit Diagnoses Not on filedocumented in this encounter Care Teams Sifting Operator Relationship Specialty Start Date End Date Unallocated, Noms Provider, [place] [address] PCP - General 04/16/23 Flaquita Banuelos CNM [address] [place] [address] Obstetrics and Gynecology 02/10/23 documented as of this encounter
--- OUTSIDE RECORDS SUMMARY | 2025-01-16 07:09 | XMS_ITS | Encounter Summary ---
Author Organization [facility] Address [address] [place] [address] Care Team Providers Care Charge Out Clerk Name Role Phone Flaquita Banuelos CNM Unavailable [phone] Unallocated, Noms Provider Primary Care Provi mart Awilda Crenshaw DO Unavailable [phone] Encounter Details Date Type Department Care Team (Late st Contact Info) Description 04/16/2023 Abstract [facility] FM [address] [facility] 230 [place] [address] Awilda Crenshaw, [address] [facility] 230 [place] [address] Social History Tobacco Use Types Packs/Day Years [...] Recorded Patient Health Questionnaire-2 Score 0 04/16/2023 [facility] of Occupat ional Health - [...] in a jail (including now)? No 04/09/2023 Comments No Sex [...] [address] [place] [address] Awilda Crenshaw, DO [address] [place] [address] with type 2 diabetes mellitus in third trimester 01/22/2025 4:30 PM EDT Routine [facility]NR OB [address] [place] [address] Flaquita Banuelos, CNM [address] [place] [address] 01/29/2025 4:30 PM EDT Routine [facility] FNR OB [address] [place] [address] Flaquita Banuelos, CNM [address] [place] [address] 02/06/2025 4:30 PM EDT Routine [facility] FNR OB [address] [place] [address] Flaquita Banuelos, CNM [address] [place] [address] 02/12/2025 4:30 PM EDT Routine [facility] OB [address] [place] [address] Flaquita Banuelos, CNM [address] [place] [address] documented as of this encounter Visit Diagnoses Not on filedocumented in this encounter Care Teams Charge Out Clerk Relationship Specialty Start Date End Date Unallocated, Noms Provider, [place] [address] PCP - General 04/16/23 Awilda Crenshaw DO [address] [address] PCP - [employer] 06/16/23 Flaquita Banuelos CNM [address] [place], [place] [address] Obstetrics and Gynecology 02/10/23 documented as of this encounter
--- OUTSIDE RECORDS SUMMARY | 2025-01-16 07:09 | XMS_ITS | Encounter Summary ---
Author Organization [facility] Address [id number] [address] [place] [address] Care Team Providers Care .Net Architect Name Role Phone Flaquita Banuelos BAMBI-CNM Primary Care Provider [phone] Encounter Details Date Type Department Care Team (Late st Contact Info) Description 09/18/2024 Orders Only [facility] [address] [place] [address] External, Scanning Provider Social History [...] Scanning Provider External ECG ORDERABLES Final Result [facility] [address] [address] documented in this encounter Visit Diagnoses Not on filedocumented in this encounter Additional Health Concerns Assessment Noted Time PHQ-9 Depression Total Score: 0 03/03/20 17 3:00 PM EDT documented as of this encounter Care Teams .Net Architect Relationship Specialty Start Date End Date Flaquita Banuelos APRN-CNM [address] [place] [address] PCP - General Nurse Statistical Analyst 04/15/18 documented as of this encounter
--- OUTSIDE RECORDS SUMMARY | 2025-01-16 07:09 | XMS_ITS | Encounter Summary ---
Author Organization [facility] Address [address] [place] [address] Care Team Providers Care Wastewater Project Manager Name Role Phone Flaquita Banuelos CNM Unavailable [phone] Unallocated, Noms Provider Primary Care Provi mart Awilda Crenshaw DO Unavailable [phone] Encounter Details Date Type Department Care Team (Late st Contact Info) Description 08/31/2023 Abstract [facility] FM [address] [facility] 230 [place] [address] Awilda Crenshaw, [address] [facility] [address] [place] [address] Social History Tobacco Use Types Packs/Day Years [...] any clubs o r organizations such as druze groups, unions, fraternal or athletic groups, or [...] Recorded Patient Health Questionnaire-2 Score 0 04/16/2023 [facility] of Occupat ional Health [...] in a long-term (including now)? No 04/09/2023 Comments No Sex [...] [address] [place] [address] Awilda Crenshaw, [address] [place] [address] with type 2 diabetes mellitus in third trimester 01/22/2025 4:30 PM EDT Routine [facility] FNR OB [address] [place] [address] Flaquita Banuelos, CNM [address] [place], [place] [address] 01/29/2025 4:30 PM EDT Routine [facility] FNR OB [address] [facility] [place] [address] Flaquita Banuelos, CNM [address] [place] [address] 02/06/2025 4:30 PM EDT Routine [facility] FNR OB [address] [facility] [place] [address] Flaquita Banuelos, CNM [address] [place] [address] 02/12/2025 4:30 PM EDT Routine [facility] OB [address] [facility] [place] [address] Flaquita Banuelos, CNM [address] [place] [address] documented as of this encounter Visit Diagnoses Not on filedocumented in this encounter Care Teams Wastewater Project Manager Relationship Specialty Start Date End Date Unallocated, Noms Provider, [address] [place] [address] PCP - General 04/16/23 Awilda Crenshaw DO [address] [place] [address] PCP - [employer] 06/16/23 Flaquita Banuelos CNM [address] [place] [address], [place] [address] Obstetrics and Gynecology 02/10/23 documented as of this encounter
--- OUTSIDE RECORDS SUMMARY | 2025-01-16 07:09 | XMS_ITS | Encounter Summary ---
Author Organization [facility] Address [address] [place] [address] Care Team Providers Care Animal Damage Control Agent Name Role Phone Flaquita Banuelos CN Unavailable [phone] Unallocated, Noms Provider Primary Care Provi mart Encounter Details Date Type Department Care Team (Late st Contact Info) Description 01/05/2025 Orders Only [facility] FNR OB [address] [place] [address] Flaquita Banuelos, CNM [address] [place], [place] [address] with type 2 diabetes mellitus in third [...] any clubs o r organizations such as restoration groups, unions, fraternal or athletic groups, or [...] Patient Health Questionnaire-2 Score 0 12/07/2024 [facility] [place] of Occupat ional Health - Occupational Stress [...] in the past 12 m [facility], were you homeless or living in a [...] [address] [place] [address] Awilda Crenshaw, [address] [place] [address] with type 2 diabetes mellitus in third trimester 01/22/2025 4:30 PM EDT Routine [facility] FNR OB [address] [facility] [place] [address] Flaquita Banuelos, CNM [address] [place] [address] 01/29/2025 4:30 PM EDT Routine [facility] FNR OB [address] [facility] [place] [address] Flaquita Banuelos, CNM [address] [place] [place] [address] 02/06/2025 4:30 PM EDT Routine [facility] FNR OB [address] [facility] [place] [address] Flaquita Banuelos, CNM [address] [place] [place] [address] 02/12/2025 4:30 PM EDT Routine [facility] FNR OB [address] [facility] [place] [address] Flaquita Banuelos, CNM [address] [facility] [place] [address] Scheduled Orders Name Type Priority Associated Diagnoses Orde r Schedule US OB SCAN FOR GROWTH Imaging Routine with type 2 diabetes mellitus in third trimester Expected: 01/05/2025, Expires: 01/05/2026 documented as of this encounter Visit Diagnoses Diagnosis with type 2 diabetes mellitus in third trimester with type 2 diabetes mellitus in third trimester documented in this encounter Care Teams Animal Damage Control Agent Relationship Specialty Start Date End Date Unallocated, Noms Provider, [address] [place] [address] PCP - General 04/16/23 Flaquita Banuelos CNM [address] [place] [address] Obstetrics and Gynecology 02/10/23 documented as of this encounter
--- OUTSIDE RECORDS SUMMARY | 2025-01-16 07:09 | XMS_ITS | Encounter Summary ---
Author Organization [facility] Address [address] [place] [address] Care Team Providers Care Gospel Worker Name Role Phone Flaquita Banuelos CNM Unavailable [phone] Unallocated, Noms Provider Primary Care Provi mart Encounter Details Date Type Department Care Team (Late st Contact Info) Description 01/04/2025 Results Follow-Up [facility] FNR OB [address] [place] [address] Flaquita Banuelos, CNM [address] [place], [place] [address] Social History Tobacco Use Types Packs/Day Years [...] any clubs o r organizations such as uatsdin groups, unions, fraternal [...] Patient Health Questionnaire-2 Score 0 12/07/2024 [facility] of Occupat ional Health [...] any time in the past 12 m [facility], were you homeless or living [...] [address] [place] [address] Awilda Crenshaw, DO [address] [place] [address] [place] [address] with type 2 diabetes mellitus in third trimester 01/22/2025 4:30 PM EDT Routine [facility] FNR OB [address] [facility] [place] [address] Flaquita Banuelos, CNM [address] [place] [address] 01/29/2025 4:30 PM EDT Routine [facility] FNR OB [address] [facility] [place] [address] Flaquita Banuelos, CN [address] [place] [address] 02/06/2025 4:30 PM EDT Routine [facility] FNR OB [address] [facility] [place] [address] Flaquita Banuelos, CN [address] [place] [address] 02/12/2025 4:30 PM EDT Routine [facility] FNR OB [address] [facility] [place] [address] Flaquita Banuelos, CN [address] [place] [address] documented as of this encounter Visit Diagnoses Not on filedocumented in this encounter Care Teams Gospel Worker Relationship Specialty Start Date End Date Unallocated, Noms Provider, [place] [address] PCP - General 04/16/23 Flaquita Banuelos CNM [address] [place] [address] Obstetrics and Gynecology 02/10/23 documented as of this encounter
--- OUTSIDE RECORDS SUMMARY | 2025-01-16 07:09 | XMS_ITS | Encounter Summary ---
Author Organization [facility] Address [address] [place] [address] Care Team Providers Care Diet Tech Name Role Phone Flaquita Banuelos CNM Unavailable [phone] Unallocated, Noms Provider Primary Care Provi mart Encounter Details Date Type Department Care Team (Late st Contact Info) Description 01/15/2025 Bamboo flowsheet [facility] OB [address] [place] [phone] Flaquita Banuelos, CNM [address] [place], [place] [id number] Social History Tobacco Use Types Packs/Day Years [...] How often do you attend chur or samaritan services? More than 4 times per year 06/07/2024 Do you belong to any clubs o r organizations such as adventism groups, unions, fraternal or athletic groups, or [...] 12/07/2024 [facility] - Occupational [...] in the past 12 m [facility], were you homeless or living in a [...] [address] [place] [address] Awilda Crenshaw M, DO [address] [place] [address] with type 2 diabetes mellitus in third trimester 01/22/2025 4:30 PM EDT Routine [facility] OB [address] [facility] [place] [address] Flaquita Banuelos, CNM [address] [facility] [address] 01/29/2025 4:30 PM EDT Routine [facility] OB [address] [facility] [place] [address] Flaquita Banuelos, CN [address] [facility] [address] 02/06/2025 4:30 PM EDT Routine [facility] OB [address] [facility] [place] [address] Flaquita Banuelos, CN [address] [facility] [address] 02/12/2025 4:30 PM EDT Routine [facility] OB [address] [facility] [place] [address] Flaquita Banuelos, CN [address] [facility] [address] documented as of this encounter Visit Diagnoses Not on filedocumented in this encounter Care Teams Diet Tech Relationship Specialty Start Date End Date Unallocated, Noms Provider, [place] [address] PCP - General 04/16/23 Flaquita Banuelos CNM [address] [place] [address] Obstetrics and Gynecology 02/10/23 documented as of this encounter
--- OUTSIDE RECORDS SUMMARY | 2025-01-16 07:09 | XMS_ITS | Encounter Summary ---
Author Organization [facility] Address [address] [place] [address] Care Team Providers Care Aviation Maintenance Technician Name Role Phone Vin Flaquita Mccoy CNM Unavailable [phone] Unallocated, Noms Provider Primary Care Provi mart Encounter Details Date Type Department Care Team (Late st Contact Info) Description 01/12/2025 Clinisync Result Encounter [facility] External Department Unsolicited Nick Sam, DO [address] [place] [address] Social History Tobacco Use Types Packs/Day Years [...] Recorded Patient Health Questionnaire-2 Score 0 12/07/2024 [facility] - Occupational Stress [...] [address] [place] [phone] Awilda Crenshaw, DO [address] [place] [address] with type 2 diabetes mellitus in third trimester 01/22/2025 4:30 PM EDT Routine [facility] OB [address] [facility] [place] [address] Flaquita Banuelos, CNM [address] [place] [address] 01/29/2025 4:30 PM EDT Routine [facility] OB [address] [facility] [place] [address] Flaquita Banuelos, CNM [address] [place] [address] 02/06/2025 4:30 PM EDT Routine [facility] OB [address] [facility] [place] [address] Flaquita Banuelos, CNM [address] [place] [address] 02/12/2025 4:30 PM EDT Routine [facility] OB [address] [facility] [place] [address] Flaquita Banuelos, CN [address] [place] [address] documented as of this encounter Procedures Procedure Name Priority Date/Time Associated Diagnosis Comments US OB GROWTH 01/12/2025 12:00 PM EDT documented in this encounter Results * US OB GROWTH (01/12/2025 12:00 PM EDT) Anatomical Region Laterality Modality Other 01/12/2025 12:0 0 PM EDT Narrative 01/12/2025 12:03 PM EDT The [address] [address] Ultrasound Report Signed Patient: REGINALD REYES MR#: [id number] : 1995 Acct:[id number] Age/Sex: 29 / F ADM Date: 01/12/25 Loc: US Attending Dr: Nick Sam D.O. Ordering Physician: Nick Sam D.O. Date of Service: 01/12/25 Procedure(s): US OB growth Accession Number(s): [id number] cc: Nick Sam D.O.; Physician,Non-Staff [place] [address] Patient Name: REGINALD REYES MRN: [id number] date: 1995 Sex: F Assigned Patient Location: [facility] Current Patient Location: [facility] Accession/Order Number: [id number] Exam Date: 01/12/2025 11:54 Report Date: 01/12/2025 12:00 At the request of: NICK SAM DO Procedure: US OB BPP w non-stress CLINICAL INFORMATION: TYPE ll diabetes mellitus O24.113 ULTRASOUND OB GROWTH COMPARISON: None There is a single live intrauterine gestation in cephalic presentation. There is cardiac and somatic activity with heart rate of 150 bpm. The amniotic fluid index measures 9.7 cm which is in low-normal range (5th percentile 7.8 cm). The following measurements were obtained: Biparietal diameter 8.9 cm 35 weeks 5 days 82% Head circumference 31.2 cm 34 weeks 6 days 22% Abdominal circumference 32.5 cm 36 weeks 3 days 93% Femur length 6.8 cm 35 weeks 0 days 53% The composite ultrasound age based on these measurements is 35 weeks 4 days +/- 2 weeks 3 days. The estimated date of delivery is February 12, 2025. The estimated weight is 6 lbs. 2 oz. +/- 15 ounces (80%). US/US OB growth IMPRESSION: SINGLE LIVE UTERINE GESTATION WITH ULTRASOUND AGE OF 35 WEEKS 4 DAYS +/- 2 WEEKS 3 DAYS. BIOPHYSICAL PROFILE: COMPARISON: 01/05/2025 FINDINGS: TONE: 1 or more episodes of activity extension and flexion of extremity or opening and closing of the hand [Y] 2/2 GROSS BODY MOVEMENTS: 3 or more discrete body or limb movements [Y] 2/2 BREATHING MOVEMENTS: 1 or more episodes of breathing lasting at least 30 seconds [Y] 2/2 DL: A single deepest vertical pocket of amniotic fluid greater than 2 cm [Y] 2/2 LD: 9.7 cm Total score: 8/8 IMPRESSION: NORMAL BIOPHYSICAL PROFILE. Impression dictated by: Elle Mcleod M.D. 01/12/2025 12:00 PM Dictation Location: [place] [address] Electronically authenticated by: [id number] Y Date: 01/12/2025 12:00 Dictated By: Elle Mcleod M.D. Signed By: 01/12/25 1203 DD/ 1200 TD/TT: Rn Supplemental: Procedure Note Radiology, Radiologist, MD - 01/12/2025 [place] [address] Ultrasound Report Signed Patient: REGINALD REYES MMR#: [id number] : 1995Acct:[id number] Age/Sex: Date: 01/12/25 Loc: US Attending Dr: Nick Sam D.O. Ordering Physician: Nick Sam D.O. Date of Service: 01/12/25 Procedure(s): US OB growth Accession Number(s): [id number] cc: Nick Sam D.O.; Physician,Non-Staff [place] [id number] Patient Name: REGINALD REYES MRN: [id number] date: 1995 Sex: F Assigned Patient Location: [facility] Current Patient Location: [facility] Accession/Order Number: [id number] Exam Date: 01/12/2025 11:54 Report Date: 01/12/2025 12:00 At the request of: NICK SAM DO Procedure: US OB BPP w non-stress CLINICAL INFORMATION: TYPE ll diabetes mellitus O24.113 ULTRASOUND OB GROWTH COMPARISON: None There is a single live intrauterine gestation in cephalic presentation.There is cardiac and somatic activity with heart rate of 150 bpm. The amniotic fluid index measures 9.7 cm which is in low-normal range (5th percentile 7.8 cm). The following measurements were obtained: Biparietal diameter 8.9 cm 35 weeks 5 days 82% Head circumference 31.2 cm 34 weeks 6 days 22% Abdominal circumference 32.5 cm 36 weeks 3 days 93% Femur length 6.8 cm 35 weeks 0 days 53% The composite ultrasound age based on these measurements is 35 weeks 4days +/- 2 weeks 3 days. The estimated date of delivery is February 12, 2025. The estimated weight is 6 lbs. 2 oz. +/- 15 ounces (80%). US/US OB growth IMPRESSION: SINGLE LIVE UTERINE GESTATION WITH ULTRASOUND AGE OF 35 WEEKS 4 DAYS +/- 2 WEEKS 3 DAYS. BIOPHYSICAL PROFILE: COMPARISON: 01/05/2025 FINDINGS: TONE: 1 or more episodes of activity extension and flexion of extremity or opening and closing of the hand [Y] 2/2 GROSS BODY MOVEMENTS: 3 or more discrete body or limb movements [Y] 2/2 BREATHING MOVEMENTS: 1 or more episodes of breathing lastingat least 30 seconds [Y] 2/2 DL: A single deepest vertical pocket of amniotic fluid greater than 2 cm [Y] 2/2 DL: 9.7 cm Total score: 8/8 IMPRESSION: NORMAL BIOPHYSICAL PROFILE. Impression dictated by: Elle Mcleod M.D. 01/12/2025 12:00 PM Dictation Location: [place] [address] Electronically authenticated by: [id number] Y Date: 2:00 Dictated By: Elle Mcleod M.D. Signed By:01/12/25 1203 DD/ 1200 TD/TT: Rn Supplemental: us Nick Flaco DO [facility] Final Result documented in this encounter Visit Diagnoses Not on filedocumented in this encounter Care Teams Aviation Maintenance Technician Relationship Specialty Start Date End Date Unallocated, Noms Provider, [address] [place] [address] PCP - General 04/16/23 Flaquita Banuelos CNM [address] [place] [address] Obstetrics and Gynecology 02/10/23 documented as of this encounter
--- OUTSIDE RECORDS SUMMARY | 2025-01-16 07:09 | XMS_ITS | Encounter Summary ---
Author Organization [facility] Address [address] [place] [address] Care Team Providers Care Assistant To The Director Name Role Phone Vin Flaquita Mccoy CNM Unavailable [phone] Unallocated, Noms Provider Primary Care Provi mart Encounter Details Date Type Department Care Team (Late st Contact Info) Description 01/12/2025 Clinisync Result Encounter [facility] External Department Unsolicited Nick Sam, DO [address] [facility] [place] [address] Social History Tobacco Use Types Packs/Day Years [...] time in the past [facility] m [facility], were you homeless or living [...] [address] [place] [address] Petznick, Awilda M, DO [address] [place] [address] with type 2 diabetes mellitus in third trimester 01/22/2025 4:30 PM EDT Routine [facility] OB [address] [facility] [place] [address] Flaquita Banuelos, CN [address] [place] [address] 01/29/2025 4:30 PM EDT Routine [facility] F[facility] OB [address] [facility] [place] [address] Flaquita Banuelos, CN [address] [place] [address] 02/06/2025 4:30 PM EDT Routine [facility] OB [address] [facility] [place] [address] Flaquita Banuelos, CNM [address] [place] [address] 02/12/2025 4:30 PM EDT Routine [facility] OB [address] [facility] [place] [address] Flaquita Banuelos, CN [address] [place] [address] documented as of this encounter Procedures Procedure Name Priority Date/Time Associated Diagnosis Comments US OB BPP W NON-STRESS 01/12/2025 12:00 PM EDT documented in this encounter Results * US OB BPP W NON-STRESS (01/12/2025 12:00 PM EDT) Anatomical Region Laterality Modality Other 01/12/2025 12:0 0 PM EDT Narrative 01/12/2025 12:03 PM EDT The [address] [address] Ultrasound Report Signed Patient: REGINALD REYES MR#: [id number] : 1995 Acct:[id number] Age/Sex: 29 / F ADM Date: 01/12/25 Loc: US Attending Dr: Nick Sam D.O. Ordering Physician: Nick Sam D.O. Date of Service: 01/12/25 Procedure(s): US OB BPP w non-stress Accession Number(s): [id number] cc: Nick Sam D.O.; Physician,Non-Staff [place] [address] Patient Name: REGINALD REYES MRN: [facility]:[id number] date: 1995 Sex: F Assigned Patient Location: [facility] Current Patient Location: [facility] Accession/Order Number: [id number] Exam Date: 01/12/2025 11:54 Report Date: 01/12/2025 [...] oz. +/- 15 ounces (80%). US/US OB BPP w non-stress IMPRESSION: SINGLE LIVE UTERINE GESTATION WITH ULTRASOUND [...] Mcleod M.D. 01/12/2025 12:00 PM Dictation Location: [place] [address] Electronically authenticated by: [id number] Y Date: 01/12/2025 12:00 Dictated By: Elle Mcleod M.D. Signed By: 01/12/25 1203 DD/ 1200 TD/TT: Burning Plant Operator: Procedure Note Radiology, Radiologist, MD - 01/12/2025 [place] [address] Ultrasound Report Signed Patient: REGINALD REYES MMR#: [id number] : 1995Acct:[id number] Age/Sex: Date: 01/12/25 Loc: US Attending Dr: Nick Sam D.O. Ordering Physician: Nick Sam D.O. Date of Service: 01/12/25 Procedure(s): US OB BPP w non-stress Accession Number(s): [id number] cc: Nick Sam D.O.; Physician,Non-Staff Magaly The [place] [id number] Patient Name: REGINALD REYES MRN: [id number] date: 1995 Sex: F Assigned Patient Location: [facility] Current Patient Location: [facility] Accession/Order Number: [id number] Exam Date: 01/12/2025 11:54 Report Date: 01/12/2025 [...] oz. +/- 15 ounces (80%). US/US OB BPP w non-stress IMPRESSION: SINGLE LIVE UTERINE GESTATION WITH ULTRASOUND [...] Mcleod M.D. 01/12/2025 12:00 PM Dictation Location: [place] [address] Electronically authenticated by: [id number] Y Date: 2:00 Dictated By: Elle Mcleod M.D. Signed By:01/12/25 1203 DD/ 1200 TD/TT: Burning Plant Operator: us Nick Flaco DO [facility] Final Result documented in this encounter Visit Diagnoses Not on filedocumented in this encounter Care Teams Assistant To The Director Relationship Specialty Start Date End Date Unallocated, Noms Dian, [address] [place] [address] PCP - General 04/16/23 Flaquita Banuelos CNM [address] [facility] [place], [place] [address] Obstetrics and Gynecology 02/10/23 documented as of this encounter
--- OUTSIDE RECORDS SUMMARY | 2025-01-16 07:09 | XMS_ITS | Encounter Summary ---
Author Organization [facility] tem Address [id number] [address] [place] [address] Care Team Providers Care Farm Field Manager Name Role Phone Flaquita Banuelos BAMBI-CNM Primary Care Provider [phone] Encounter Details Date Type Department Care Team (Late st Contact Info) Description 09/11/2024 Orders Only Maternal- Medicine at [facility] [address] [place] [phone] Yudelka Randall, SABRINA with type 2 diabetes [...] BLOOD ORDERABLES Final Result Performing Organization Address [facility] Co de Phone Number MANUALLY TRANSCRIBED RESULTS * Protein creat ratio (08/30/2024) 08/30/2024 us Svetlana E Lavoy PA-C URINE ORDERABLES Final Resu lt Performing Organization Address [facility] Co de Phone Number SUNQUEST * Thyroid profile includes TSH FT4 (08/30/2024) 08/30/2024 us Svetlana E Lavoy PA-C LAB BLOOD ORDERABLES Final Result Performing Organization Address [facility] Phone Number MANUALLY TRANSCRIBED RESULTS documented in this encounter Visit Diagnoses Diagnosis with type 2 diabetes mellitus in second trimester documented in this encounter Additional Health Concerns Assessment Noted Time PHQ-9 Depression Total Score: 0 03/03/20 17 3:00 PM EDT documented as of this encounter Care Teams Farm Field Manager Relationship Specialty Start Date End Date Flaquita Banuelos APRN-CNM [address] [place] [address] PCP - General Nurse Film Recordist 04/15/18 documented as of this encounter
--- OUTSIDE RECORDS SUMMARY | 2025-01-16 07:10 | XMS_ITS | Clinical Summary ---
Author Organization [facility] Address [address] [place] [address] Care Team Providers Care Hotel Maintenance Technician Name Role Phone Flaquita Banuelos CNM Unavailable [phone] Unallocated, [facility] Provider MD Primary Care Provi [...] Encounters Date Type Department Care Team Description 01/15/2025 4:30 PM EDT Routine [facility] OB [address] [place] [address] Flaquita Banuelos CNM 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 mellitus without complication, without long-term current use of insulin (Primary Dx); with type 2 diabetes mellitus in third trimester 01/15/2025 Bamboo flowsheet [facility] [address] [place] [address] Flaquita Banuleos CNM 01/12/2025 Telephone [facility] OB [address] [place] [address] [place] [address] Estelle Hughes LPN 01/12/2025 Clinisync Result Encounter NOMS External Department Unsolicited Nick Sam, DO 01/12/2025 Clinisync Result Encounter NOMS External Department Unsolicited Nick Sam, DO 01/09/2025 4:00 PM EDT Routine [facility] OB [address] [facility] [place] [address] Flaquita Banuelos CNM 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 mellitus treated with insulin ([facility]/HCC) (Primary Dx); Encounter for care of first , third trimester 01/09/2025 [place] [address] [place] [address] Lin Banuelose L, CNM 01/05/2025 Clinisync Result Encounter NOMS External Department Unsolicited Nick Sam, DO 01/05/2025 Orders Only [facility] OB [address] [facility] [place] [address] Flaquita Banuelos L, CNM with type 2 diabetes mellitus in third trimester 01/04/2025 Results Follow-Up [facility] OB [address] [facility] [place] [address] Lin Banuelose L, CNM 01/01/2025 4:30 PM EDT Routine [facility] OB [address] [facility] [place] [address] Wanda Banueloserie L, CNM Screening for iron deficiency anemia (Primary Dx); Dysuria 01/01/2025 Bamboo flowsheet [facility] [address] [facility] [place] [address] Flaquita Banuelos L, CNM 01/01/2025 Travel 12/29/2024 Clinisync Result Encounter NOMS External Department Unsolicited Nick Sam, DO 12/28/2024 Refill [facility] OB [address] [facility] [place] [address] Abby Saul MA Anemia during in third trimester 12/27/2024 Results Follow-Up [facility] OB [address] [facility] [place] [address] Abby Saul MA 12/27/2024 Refill [facility] OB [address] [facility] [place] [address] Abby Saul MA Anemia during in third trimester 12/26/2024 4:00 PM EDT Routine [facility] OB [address] [facility] [place] [address] Flaquita Banuelos L, CNM with type 2 diabetes mellitus in third trimester (Primary Dx); Screening for iron deficiency anemia; 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 mellitus treated with insulin ([facility]) 12/26/2024 Bamboo flowsheet [facility] [address] [facility] [place] [address] Flaquita Banuelos, SADIA 12/25/2024 10:20 AM EDT Consult [facility] OB [address] [facility] [place] [place] [address] Nick Sam, with type 2 diabetes mellitus in third trimester 12/25/2024 Travel 12/25/2024 Bamboo flowsheet [facility] OB [address] [facility] [place] [place] [address] Nick Sam DO 12/20/2024 Results Follow-Up [facility] OB [address] [facility] [place] [address] Flaquita Banuelos CNM 12/20/2024 Orders Only [facility] OB [address] [facility] [address] Flaquita Banuelos, CATHIEM with type 2 diabetes mellitus in third trimester 12/11/2024 4:30 PM EDT Ancillary Procedure [facility] ULTRASOUND [address] [facility] [address] [place] [address] related condition in third trimester 12/11/2024 4:00 PM EDT Routine [facility] OB [address] [facility] [place] [address] Flaquita Banuelos, CATHIEM with type 2 diabetes mellitus in third trimester 12/11/2024 Bamboo flowsheet [facility] OB [address] [facility] [place] [address] Flaquita Banuelos, SADIA 12/11/2024 Travel 12/07/2024 8:15 AM EDT Office Visit [facility] [address] [place] [address] Awilda Crenshaw, with type 2 diabetes mellitus in third trimester (Primary Dx); with type 2 diabetes mellitus in second trimester 12/07/2024 Abstract [facility] [address] [place] [address] UnallocatDanay valente MD 12/07/2024 Travel 12/04/2024 Travel 11/30/2024 Abstract [facility] [address] [place] [address] Awilda Crenshaw, DO 11/30/2024 Travel 11/29/2024 Telephone [facility] [address] [place] [address] Bonny Garcia LPN BG readings 11/15/2024 4:30 PM EDT Routine [facility] OB [address] [place] [address] Flaquita Banuelos, CNM Encounter for care of first , second trimester (Primary Dx); related condition in third trimester; Gestational diabetes mellitus (GDM) requiring insulin 11/15/2024 Bamboo flowsheet [facility] OB [address] [place] [address] Flaquita Banuelos, CATHIEM 11/14/2024 Travel 11/10/2024 Abstract [facility] [address] [place] [address] Awilda Crenshaw, DO 11/03/[address] [facility] [address] [place] [address] Awilda Crenshaw, DO 10/20/2024 Abstract [facility] [address] [place] [address] Awilda Crenshaw, DO 10/18/2024 4:30 PM EST Routine [facility] OB [address] [place] [address] Flaquita Banuelos, CATHIEM 10/18/2024 Bamboo flowsheet [facility] OB [address] [place] [address] Flaquita Banuelos CNM from Last [...] Recorded Patient Health Questionnaire-2 Score 0 12/07/2024 [facility] of Occupat ionri Health - Occupational Stress Questionnaire Answer Date [...] Pressure 120/78 01/15/2025 4:36 PM EDT Pulse 86 12/07/2024 8:17 AM EDT Temperature 36.6 C (97.9 F) 12/07/2024 8:17 AM EDT Respiratory Rate - - Oxygen Saturation 98% 12/07/2024 8:17 AM EDT Inhaled Oxygen Concentration - - Weight 110 kg (243 lb) 01/15/2025 4:36 PM EDT Height 177.8 cm (5' 10 ) 12/07/2024 8:17 AM EDT Body Mass Index 34.87 12/07/2024 8:17 AM EDT Plan of Treatment Upcoming Encounters Date Type Department Care Team (Latest Contact Info) Description 01/18/2025 8:30 AM EDT Office Visit [facility] [address] [place] [address] Awilda Crenshaw, DO [address] [place] [address] with type 2 diabetes mellitus in third trimester 01/22/2025 4:30 PM EDT Routine [facility] OB [address] [facility] [place] [address] Flaquita Banuelos, [facility] [address] [place] [address] 01/29/2025 4:30 PM EDT Routine [facility] OB [address] [facility] [place] [address] Flaquita Banuelos, CN [address] [place] [address] 02/06/2025 4:30 PM EDT Routine [facility] OB [address] [facility] [address] Flaquita Bnauelos, CN [address] [place] [address] 02/12/2025 4:30 PM EDT Routine [facility] OB [address] [facility] [place] [address] Flaquita Banuelos, [facility] [address] [place] [address] Health Maintenance Due Date Last Done Comments Diabetes: Retinopathy Screening 2005 Diabetes: Hemoglobin A1C 01/06/2025 025, 07/10/2024, 06/08/2024, Additional history exists Influenza Vaccine (Season Ended) 2025 Diabetes: Urine Protein Screening 08/30/2025 025 Procedures Procedure Name Priority Date/Time Associated Diagnosis Comments US OB BPP W NON-STRESS 01/12/2025 12:00 PM EDT US OB GROWTH 01/12/2025 12:00 PM EDT US OB BPP W NON-STRESS 01/05/2025 3:27 [...] complication, without long-term current use of insulin ([facility]) from Last 3 Months or Most Recently Relevant to Health Maintenance Results * US OB GROWTH (01/12/2025 12:00 PM EDT) Anatomical Region Laterality Modality Other 01/12/2025 12:0 0 PM EDT Narrative 01/12/2025 12:03 PM EDT The [address] [address] Ultrasound Report Signed Patient: REGINALD REYES MR#: [id number] : 1995 Acct:[id number] Age/Sex: 29 / F ADM Date: 01/12/25 Loc: US Attending Dr: Nick Sam D.O. Ordering Physician: Nick Sam D.O. Date of Service: 01/12/25 Procedure(s): US OB growth Accession Number(s): [id number] cc: Nick Sam D.O.; Physician,Non-Staff [place] [address] Patient Name: REGINALD REYES MRN: [id number] date: 1995 Sex: F [place] [facility] [place] [facility] [place]ion/Order Number: [id number] Exam Date: 01/12/2025 11:54 Report Date: 01/12/2025 [...] Mcleod M.D. 01/12/2025 12:00 PM Dictation Location: [place] [address] Electronically authenticated by: [id number] Y Date: 01/12/2025 12:00 Dictated By: Elle Mcleod M.D. Signed By: 01/12/25 1203 DD/ 1200 TD/TT: Packer Inspector: Procedure Note Radiology, Radiologist, MD - 01/12/2025 [place] [address] Ultrasound Report Signed Patient: REGINALD REYES MMR#: [id number] : 1995Acct:[id number] Age/Sex: Date: 01/12/25 Loc: US Attending Dr: Nick Sam D.O. Ordering Physician: Nick Sam D.O. Date of Service: 01/12/25 Procedure(s): US OB growth Accession Number(s): [id number] cc: Nick Sam D.O.; Physician,Non-Staff Magaly The [place] [phone] Patient Name: REGINALD REYES MRN: [id number] date: 1995 Sex: F [place] [facility] [place] [facility] [place]ion/Order Number: [id number] Exam Date: 01/12/2025 11:54 Report Date: 01/12/2025 [...] Mcleod M.D. 01/12/2025 12:00 PM Dictation Location: [place] [address] Electronically authenticated by: [id number] Y Date: 512:00 Dictated By: Elle Mcleod M.D. Signed By:01/12/25 1203 DD/ 1200 TD/TT: Packer Inspector: us Nick Flcao DO [facility] Final Result * US OB BPP W NON-STRESS (01/12/2025 12:00 PM EDT) Only the most recent of3 resultswithin the time period is included. Anatomical Region Laterality Modality Other 01/12/2025 12:0 0 PM EDT Narrative 01/12/2025 12:03 [place] [address] Ultrasound Report Signed Patient: REGINALD REYES MR#: [id number] : 1995 Acct:[id number] Age/Sex: 29 / F ADM Date: 01/12/25 Loc: US Attending Dr: Nick Sam D.O. Ordering Physician: Nick Sam D.O. Date of Service: 01/12/25 Procedure(s): US OB BPP w non-stress Accession Number(s): [id number] cc: Nick Sam D.O.; Physician,Non-Staff Magaly [place] [id number] Patient Name: REGINALD REYES MRN: [id number] date: 1995 Sex: F Assigned Patient [facility] [place] [facility] [place]ion/Order Number: [id number] Exam Date: 01/12/2025 11:54 Report Date: 01/12/2025 [...] Mcleod M.D. 01/12/2025 12:00 PM Dictation Location: [place] [address] Electronically authenticated by: [id number] Y Date: 01/12/2025 12:00 Dictated By: Elle Mcleod M.D. Signed By: 01/12/25 1203 DD/ 1200 TD/TT: Packer Inspector: Procedure Note Radiology, Radiologist, MD - 01/12/2025 [place] [address] Ultrasound Report Signed Patient: REGINALD REYES MMR#: [id number] : 1995Acct:[id number] Age/Sex: Date: 01/12/25 Loc: US Attending Dr: Nick Sam D.O. Ordering Physician: Nick Sam D.O. Date of Service: 01/12/25 Procedure(s): US OB BPP w non-stress Accession Number(s): [id number] cc: Nick Sam D.O.; Physician,Non-Staff Mag[place] The [place] [phone] Patient Name: REGINALD REYES MRN: [facility]:[id number] date: 1995 Sex: F Assigned Patient Location: [facility] [place] [facility] [place]ion/Order Number: [id number] Exam Date: 01/12/2025 11:54 Report Date: 01/12/2025 12:00 At the request of: NICK FLACO DO Procedure: US OB BPP w non-stress [...] Mcleod M.D. 01/12/2025 12:00 PM Dictation Location: [place] [address] Electronically authenticated by: [id number] Y Date: 2:00 Dictated By: Elle Mcleod M.D. Signed By:01/12/25 1203 DD/ 1200 TD/TT: Packer Inspector: us Nick Flaco DO [facility] Final Result * Urine culture (01/01/2025 5:00 PM EDT) MICRO NUMBER [id number] QUEST SPECIMEN QUALITY Adequate QUEST SOURCE: (QUEST) [...] Performing Organization Information Site ID: QPT Name: [facility] Address: [address] [place] [address], [address] [place] [phone] Director: Devendra Aguilar MD us Flaquita BRAND LAB MICROBIOLOGY - GENERAL O RDERABLES Final [...] Performing Organization Information Site ID: QPT Name: [facility] Address: [address] [place] [address] Director: Devendra Aguilar MD Flaquita Banuelos CNM LAB BLOOD ORDERABLES Final [...] Urine 12/25/2024 10:5 2 AM EDT Nick Sam DO POINT OF CARE TEST ENTER/EDIT OR [...] II, MD, PHD at 12-Dec-2024 07:13:14 PM [facility] Procedure Note Yuli Mccarthy MD - [...] signed by YULI MCCARTHY II, MD, PHD [id number] 07:13:14 PM [facility] us Flaquita Banuelos CNM IMG OB [...] to Health Maintenance Insurance BS Care Teams Hotel Maintenance Technician Relationship Specialty Start Date End Date Unallocated, [facility] Provider, [place] [address] PCP - General 04/16/23 Flaquita Banuelos CNM [address] [place] [address] Obstetrics and Gynecology 02/10/23
--- OUTSIDE RECORDS SUMMARY | 2025-01-16 07:10 | XMS_ITS | Encounter Summary ---
Author Organization [facility] Address [address] [place] [address] Care Team Providers Care Beam Builder Name Role Phone Flaquita Banuelos CNM Unavailable [phone] Unallocated, [facility] Provider Primary Care Provi mart Awilda Crenshaw DO Unavailable [phone] Encounter Details Date Type Department Care Team (Late st Contact Info) Description 10/06/[address] [facility] [address] [place] [address] Awilda Crenshaw, DO [address] [facility] [address] [place] [address] Social History Tobacco Use Types Packs/Day Years [...] Recorded Patient Health Questionnaire-2 Score 0 10/09/2024 [facility] of Occupat ional Health - Occupational Stress [...] time in the past 12 m [facility], were you homeless or living in [...] [address] [place] [address] Awilda Crenshaw, [address] [place] [address] with type 2 diabetes mellitus in third trimester 01/22/2025 4:30 PM EDT Routine [facility] OB [address] [place] [address] Flaquita Banuelos, CNM [address] [facility] [place] [address] 01/29/2025 4:30 PM EDT Routine [facility] OB [address] [place] [address] Flaquita Banuelos, CNM [address] [facility] [place] [address] 02/06/2025 4:30 PM EDT Routine [facility] OB [address] [place] [address] Flaquita Banuelos, CNM [address] [facility] [place] [address] 02/12/2025 4:30 PM EDT Routine [facility] OB [address] [place] [address] Flaquita Banuelos, CNM [address] [facility] [place] [address] documented as of this encounter Visit Diagnoses Not on filedocumented in this encounter Care Teams Beam Builder Relationship Specialty Start Date End Date Unallocated, Noms Provider, [address] [place] [address] PCP - General 04/16/23 Awilda Crenshaw DO [address] [address] PCP - [place] [employer] 06/16/23 Flaquita Banuelos CNM [address] [place] [address] Obstetrics and Gynecology 02/10/23 documented as of this encounter
--- OUTSIDE RECORDS SUMMARY | 2025-01-16 07:10 | XMS_ITS | CCD ---
Author Organization [facility] Care Team Providers Care Pot Annealer Name Role Phone Unavailable Primary Care Provider Unavailabl e FLORO, DARÍO Referring Unavailable Floro CNM, Darío L Unavailable Unallocated , Noms Provider Primary Care Provi mart PetAwilda carr DO Unavailable Unallocated , Noms Provider Primary Care Provi mart Floro NIB ASSEMBLER-CNM, Darío Primary Care Provider [phone]( [phone] SVETLANA JACK Attending Unavailable FLORO, DARÍO Referring [...] Active docusate sodium 100 mg oral capsule (10 sources) Start: 12-28-2024 End: 04-27-2025 take 1 capsule by mouth in the morning docusate sodium (Colace) 100 MG capsule Indications: Anemia during in third trimester Take 1 capsule (100 mg) by mouth in the morning and 1 capsule (100 mg) before bedtime. 60 capsule 3 12/28/2024 04/27/2025 Active ferrous sulfate 325 mg delayed release oral tablet (10 sources) Start: 12-28-2024 End: 12-28-2025 take 1 [...] complication, without long-term current use of insulin ([facility]) 15 units in the am and 25 [...] Test Name Value Interpretation Reference Range Facility No Panel InformationOrdered By: Radiologist Radiology on 01-12-2025 [facility] Work Phone: No Panel Informationon 01-12 Radiology Study observation (narrative) [facility] US OB BPP W NON-STRESS on 01-12-[address] [address] Ultrasound Report Signed Patient: REGINALD REYES MR#: [id number] : 1995 Acct:[id number] Age/Sex: 29 / F ADM Date: 01/12/25 Loc: US Attending Dr: Henry Sam D.O. Ordering Physician: Henry Sam D.O. Date of Service: 01/12/25 Procedure(s): US OB BPP w non-stress Accession Number(s): [id number] cc: Henry Sam D.O.; Physician,Non-Staff [place] [id number] Patient Name: REGINALD REYES MRN: [facility]:[id number] date: 1995 Sex: F Assigned Patient Location: [facility] Current Patient Location: [facility] [place] Accession/Order Number: [id number] Exam Date: 01/12/2025 11:54 Report Date: 01/12/2025 12:00 At the request of: HENRY SAM DO [...] Mcleod M.D. 01/12/2025 12:00 PM Dictation Location: [place] [address] Electronically authenticated by: [id number] Y Date: 01/12/2025 12:00 Dictated By: Elle Mcleod M.D. Signed By: 01/12/25 1203 DD/ 1200 TD/TT: Contract Administrative Assistant: [facility] Radiology, Radiologist, MD - 01/12/2025 [place] [address] Ultrasound Report Signed Patient: REGINALD REYES MR#: [id number] : 1995 Acct:[id number] Age/Sex: 29 / F ADM Date: 01/12/25 Loc: US Attending Dr: Henry Sam D.O. Ordering Physician: Henry Sam D.O. Date of Service: 01/12/25 Procedure(s): US OB BPP w non-stress Accession Number(s): [id number] cc: Henry Sam D.O.; Physician,Non-Staff [place] [id number] Patient Name: REGINALD REYES MRN: [facility]:[id number] date: 1995 Sex: F Assigned Patient Location: [facility] Current Patient Location: [facility] [place] Accession/Order Number: [id number] Exam Date: 01/12/2025 11:54 Report Date: 01/12/2025 12:00 At the request of: HENRY SAM DO [...] Mcleod M.D. 01/12/2025 12:00 PM Dictation Location: [place] [address] Electronically authenticated by: [id number] Y Date: 01/12/2025 12:00 Dictated By: Elle Mcleod M.D. Signed By: 01/12/25 1203 DD/ 1200 TD/TT: Contract Administrative Assistant: [facility] OB GROWTHon 01-12-2025 [place] [address] Ultrasound Report Signed Patient: REGINALD REYES MR#: [id number] : 1995 Acct:[id number] Age/Sex: 29 / F ADM Date: 01/12/25 Loc: US Attending Dr: Henry Sam D.O. Ordering Physician: Henry Sam D.O. Date of Service: 01/12/25 Procedure(s): US OB growth Accession Number(s): [id number] cc: Henry Sam D.O.; Physician,Non-Staff [place] [id number] Patient Name: REGINALD REYES MRN: [id number] date: 1995 Sex: F Assigned Patient Location: [facility] [place] Current Patient Location: [facility] [place] Accession/Order Number: [id number] Exam Date: 01/12/2025 11:54 Report Date: 01/12/2025 12:00 At the request of: HENRY SAM DO [...] Mcleod M.D. 01/12/2025 12:00 PM Dictation Location: [place] [address] Electronically authenticated by: [id number] Y Date: 01/12/2025 12:00 Dictated By: Elle Mcleod M.D. Signed By: 01/12/25 1203 DD/ 1200 TD/TT: Contract Administrative Assistant: [facility] Radiology, Radiologist, - 01/12/2025 [place] [address] Ultrasound Report Signed Patient: REGINALD REYES MR#: [id number] : 1995 Acct:[id number] Age/Sex: 29 / F ADM Date: 01/12/25 Loc: US Attending Dr: Henry Sam D.O. Ordering Physician: Henry Sam D.O. Date of Service: 01/12/25 Procedure(s): US OB growth Accession Number(s): [id number] cc: Henry Sam D.O.; Physician,Non-Staff [place] [id number] Patient Name: REGINALD REYES MRN: [facility]:[id number] date: 1995 Sex: F Assigned Patient Location: [facility] [place] Current Patient Location: [facility] [place] Accession/Order Number: [id number] Exam Date: 01/12/2025 11:54 Report Date: 01/12/2025 12:00 At the request of: HENRY SAM DO [...] Mcleod M.D. 01/12/2025 12:00 PM Dictation Location: [place] [address] Electronically authenticated by: [id number] Y Date: 01/12/2025 12:00 Dictated By: Elle Mcleod M.D. Signed By: 01/12/25 1203 DD/ 1200 TD/TT: Contract Administrative Assistant: [facility] US OB BPP W NON-STRESS on 12-29-2024 [place] [address] Ultrasound Report Signed Patient: REGINALD REYES MR#: [id number] : 1995 Acct:[id number] Age/Sex: 29 / F ADM Date: 12/29/24 Loc: US Attending Dr: Henry Sam D.O. Ordering Physician: Henry Sam D.O. Date of Service: 12/29/24 Procedure(s): US OB BPP w non-stress Accession Number(s): [id number] cc: Henry Sam D.O.; Physician,Non-Staff [place] [id number] Patient Name: REGINALD REYES MRN: [facility]:[id number] date: 1995 Sex: F Assigned Patient Location: [facility] Current Patient Location: Accession/Order Number: [id number] Exam Date: 12/29/2024 09:34 Report Date: 12/29/2024 [...] Roberson M.D. 12/29/2024 9:36 AM Dictation Location: [place] [address] Electronically authenticated by: [id number] Y Date: 12/29/2024 09:36 Dictated By: Zak Roberson M.D. Signed By: 12/29/2438 DD/ 5 TD/TT: Contract Administrative Assistant: [facility] Radiology, Radiologist, - 12/29/2024 [place] [address] Ultrasound Report Signed Patient: REGINALD REYES MR#: [id number] : 1995 Acct:[id number] Age/Sex: 29 / F ADM Date: 12/29/24 Loc: US Attending Dr: Henry Sam D.O. Ordering Physician: Henry Sam D.O. Date of Service: 12/29/24 Procedure(s): US OB BPP w non-stress Accession Number(s): [id number] cc: Henry Sam D.O.; Physician,Non-Staff MCaitlin [place] [id number] Patient Name: REGINALD REYES MRN: [id number] date: 1995 Sex: F Assigned Patient Location: [facility] Current Patient Location: Accession/Order Number: [id number] Exam Date: 12/29/2024 09:34 Report Date: 12/29/2024 [...] Roberson M.D. 12/29/2024 9:36 AM Dictation Location: [place] [address] Electronically authenticated by: [id number] Y Date: 12/29/2024 09:36 Dictated By: Zak Roberson M.D. Signed By: 12/29/24 0938 DD/ TD/TT: Contract Administrative Assistant: [facility] Radiology Study observation (narrative) [facility] US OB BPP W NON-STRESS Ordered By: Radiologist Radiology on 12-29-2024 [facility] Work Phone: Urinalysis macro (dipstick) panel (U)on 12-25-2024 Bilirubin, UA Negative Negative - 4(70) +++ mg/dL [facility] Blood, UA Negative Negative - 50 Skinny/mcL [facility] Clarity, UA Clear [facility] Color, UA Yellow [facility] Glucose, UA Negative Negative - 2000(110) ++++ mg/dL [facility] Interpretation and review of laboratory results Normal [facility] Ketones, UA Negative Negative - 160(16) ++++ mg/dL [facility] Leukocytes, UA Positive Negative - 500+++ Cal/mcL [facility] Comment on above: small Nitrite, UA Negative Negative - Positive [facility] pH, UA 6.5 5 - 9 [facility] Protein, UA Negative Negative - 2000(20) ++++ mg/dL [facility] Spec Grav, UA 1.02 1 - 1.03 [facility] Urobilinogen, UA 1.0 0.2 - 12 mg/dL Replaced by [facility] US OB FOLLOW UP TRANSABDOMIN AL APPROACHon [...] II, MD, PHD at 12-Dec-2024 07:13:14 PM [facility] Normal Not Available POCT EKGOrdered By: Abby Andino on 11-08-2024 [facility] HbA1c (Bld) [Mass fraction]o n 10-09-2024 Interpretation and review of laboratory results Normal Replaced by [facility] Laboratory - Hematology and Cell countson 10-09-2024 HbA1c (Bld) [Mass fraction] 5.7 % [facility] POCT EKGon 09-19-2024 [facility] No Panel Informationon 08-14 [facility] Chlamydia/GC by PCR ThinPrep fluidon 07-11-2024 Chlamydia Dna(Pcr) Negative [facility] Gonorrhoeae Dna(Pcr) Negative [facility] Drug Screen, Urineon 024 Amphetamine/Methampheta mine Negative [facility] Opiate Quantitative Urine Negative [facility] HIV 1&2 AB/AG Screen (P24 AG )on 07-10-2024 HIV 1&2 AB/AG Non-Reactive [facility] Hemoglobin A1con 07-10-2024 HbA1c (Bld) [Mass fraction] 6.4 % Abnormal 4.0 - 6.0 % [facility] Interpretation and review of laboratory results Abnormal [facility] No Panel Informationon 07-[address] [facility] Type and screenon 07-10-2024 Abo/Rh(D) Positive [facility] US OB < 14 WEEKS EARLYon US [...] Interpretation and review of laboratory results Normal Replaced by [facility] Laboratory - Hematology and Cell countson 06-08-2024 HbA1c (Bld) [Mass fraction] 6.2 % [facility] Cytology Cervical or vaginal smear or scraping studyOrdered By: Christen Nettles on 02-10-2023 [facility] Hemoglobin A1Con 07-05-2019 HbA1c (Bld) [Mass fraction] 5.9 % Normal 4.8-5.9 [facility] Comment on above: Performed By: #### G BROOKE LIPR #### [address] [place] [address] Fluorescent Lamp Replacer: Ruslan Fernando MD #### INSU #### [address] [address] Fluorescent Lamp Replacer: Marv Guzman MD [address] [place] [id number] Fluorescent Lamp Replacer: Ruslan Fernando MD HbA1c (Bld) [Mass fraction] 123 mg/dL [facility] Comment on above: Result Comment: The ADA and AACC recommend providing the estimated average glucose result to permit better patient understanding of their HBA1c result. Performed By: #### G BROOKE LIPR #### [address] [place], [place] [id number] Fluorescent Lamp Replacer: Ruslan Fernando MD #### INSU #### [address] [id number] Fluorescent Lamp Replacer: Marv Guzman MD [address] [place] [id number] Fluorescent Lamp Replacer: Ruslan Fernando MD Glucose [Mass/Vol] 123 mg/dL [place], [place] Comment on above: The ADA and AACC rec ommend providing the estimated average glucose result to permit better patient understanding of their HBA1c result. HbA1c (Bld) [Mass fraction] 5.9 % 4.8 - 5.9 % [place], [place] Insulinon 07-05-2019 Insulin 36.2 mU/L [facility] Comment on above: Performed By: #### G LYHGB, LIPR #### [facility] [address] [place] [address] [place] [address] Fluorescent Lamp Replacer: Ruslan Fernando MD #### INSU #### [place] [address] [place], [place] [id number] Fluorescent Lamp Replacer: Marv Guzman MD [address] [place], [place] [address] Fluorescent Lamp Replacer: Ruslan Fernando MD Reference Range [facility] Comment on above: Result Comment: Fast in.6-24.9 30 min: 20-112 60 min: 29-88 90 min: 26-84 120 min: 22-79 Performed By: #### G LYHGB, LIPR #### [address] [place], [place] [phone] Fluorescent Lamp Replacer: Ruslan Fernando MD #### INSU #### [address] [id number] Fluorescent Lamp Replacer: Marv Guzman MD [address] [place], [place] [address] Fluorescent Lamp Replacer: Ruslan Fernando MD Collection Info. [address] [place] [address] Comment on above: Performed By: #### G LYHGB, LIPR #### [address] [place], [place] [address]274[address] Fluorescent Lamp Replacer: Ruslan Fernando MD #### INSU #### [address] [id number] Fluorescent Lamp Replacer: Marv Guzman MD [address] [place], [place] [address] Fluorescent Lamp Replacer: Ruslan Fernando MD Insulin, totalon 07-05-2019 INR Coag (Bld) [Relative time] [facility] [place] [place] Comment on above: Fastin.6-24.9 30 min: 20-112 60 min: 29-88 90 min: 26-84 120 min: 22-79 Insulin 36.2 mU/L [place], [place] Insulin Comment [facility] [facility] [place] Lipid Panelon 07-05-2019 Cholesterol [Mass/Vol] 204 mg/dL High <200 Me [place], [place] Comment on above: Cholesterol Guidelines: <200 Desirable 200-240 Borderline >240 Undesirable Cholesterol in HDL [Mass/Vol] 35 mg/dL Low >40 [place], [place] Comment on above: HDL Guidelines: <40 Undesirable 40-59 Borderline >59 Desirable Cholesterol in LDL [Mass/Vol] 102 mg/dL 0 - 130 mg/dL [place], [place] Comment on above: LDL Guidelines: <100 Desirable 100-129 Near to/above Desirable 130-159 Borderline >159 Undesirable Direct (measured) LDL and calculated LDL are not interchangeable tests. Cholesterol in VLDL [Mass/Vol] NOT REPORTED High 1 - 30 mg/dL [place], [place] Cholesterol.total/Perla sterol in HDL [Mass ratio] 5.8 {ratio} High <5 [place], [place] Interpretation and review of laboratory results Abnormal [place], [place] Triglyceride [Mass/Vol] 336 mg/dL High <150 M [place], [place] Comment on above: Triglyceride Guidelines: <150 Desirable 150-199 Borderline 200-499 High >499 Very high Based on AHA Guidelines for fasting triglyceride, May 2012. Lipid Profileon 07-05-2019 Cholesterol [Mass/Vol] 204 mg/dL High <200 [facility] Comment on above: Result Comment: Cholesterol Guidelines: <200 Desirable 200-240 Borderline >240 Undesirable Performed By: #### G LYHGB, LIPR #### [facility] [address] [place] [address] Fluorescent Lamp Replacer: Ruslan Fernando MD #### INSU #### [address] [address] Fluorescent Lamp Replacer: Marv Guzman MD [facility] [address] [place] [address] Fluorescent Lamp Replacer: Ruslan Fernando MD Cholesterol in HDL [Mass/Vol] 35 mg/dL Low >40 [facility] Comment on above: Result Comment: HDL Guidelines: <40 Undesirable 40-59 Borderline >59 Desirable Performed By: #### G LYHGB, LIPR #### [address] [place] [address] Fluorescent Lamp Replacer: Ruslan Fernando MD #### INSU #### [facility] [address] [place] [address] Fluorescent Lamp Replacer: Marv Guzman MD [address] [place] [address] Fluorescent Lamp Replacer: Ruslan Fernando MD Cholesterol in LDL [Mass/Vol] 102 mg/dL Normal 0-130 [facility] Comment on above: Result Comment: LDL Guidelines: <100 Desirable 100-129 Near to/above Desirable 130-159 Borderline >159 Undesirable Direct (measured) LDL and calculated LDL are not interchangeable tests. Performed By: #### G LYHGB, LIPR #### [address] [place] [address] Fluorescent Lamp Replacer: Ruslan Fernando MD #### INSU #### [facility] [address] [place] [address] Fluorescent Lamp Replacer: Marv Guzman MD [address] [place] [address] Fluorescent Lamp Replacer: Ruslan Fernando MD Cholesterol.total/Perla sterol in HDL [Mass ratio] 5.8 {ratio} High <5 [facility] Comment on above: Performed By: #### G LYHGB, LIPR #### [address] [place] [address] Fluorescent Lamp Replacer: Ruslan Fernando MD #### INSU #### [facility] [address] [place] [address] Fluorescent Lamp Replacer: Marv Guzman MD [address] [place] [address] Fluorescent Lamp Replacer: Ruslan Fernando MD Triglyceride [Mass/Vol] 336 mg/dL High <150 M [facility] Comment on above: Result Comment: Triglyceride Guidelines: <150 Desirable 150-199 Borderline 200-499 High >499 Very high Based on AHA Guidelines for fasting triglyceride, May 2012. Performed By: #### G LYHGB, LIPR #### [facility] [address] [place], [place] [phone] Fluorescent Lamp Replacer: Ruslan Fernando MD #### INSU #### [facility] [address] [place], [place] [phone] Fluorescent Lamp Replacer: Marv Guzman MD [facility] [address] [place] [address] [place], [place] [phone] Fluorescent Lamp Replacer: Ruslan Fernando MD Cholesterol in VLDL [Mass/Vol] NOT REPORTED Normal 09-14 [facility] Comment on above: Performed By: #### G LYHGB, LIPR #### [address] [place], [place] [address] Fluorescent Lamp Replacer: Ruslan Fernando MD #### INSU #### [facility] [address] [place] [address] Fluorescent Lamp Replacer: Marv Guzman MD [address] [place], [place] [address] Fluorescent Lamp Replacer: Ruslan Fernando MD Vital Signs Date Time Vital Sign Value Performing Clinician Facility 01-15-2025 16:36-0400 Body mass index (BMI) [Ratio] 34.87 kg/m2 Darío Banuelos [facility] Work Phone: [facility] 01-15-2025 16:36-0400 Body weight 110.22 kg [facility] 01-15-2025 16:36-0400 Diastolic blood pressure 78 mm[Hg] Darío Banuelos [facility] Work Phone: [facility] 01-15-2025 16:36-0400 Systolic blood pressure 120 mm[Hg] [facility] 01-09-2025 16:34-0400 Body mass index (BMI) [Ratio] 34.72 kg/m2 Darío Floro CNM Work Phone: [facility] 01-09-2025 16:34-0400 Body weight 109.77 kg Darío Floro CNM Work Phone: [facility] 01-09-2025 16:34-0400 Diastolic blood pressure 74 mm[Hg] Darío Floro CNM Work Phone: [facility] 01-09-2025 16:34-0400 Systolic blood pressure 120 mm[Hg] Darío Floro CNM Work Phone: [facility] 12-26-2024 16:02-0400 Body mass index (BMI) [Ratio] 34.15 kg/m2 Darío Floro CNM Work Phone: [facility] 12-26-2024 16:02-0400 Body weight 107.96 kg Darío Floro CNM Work Phone: [facility] 12-26-2024 16:02-0400 Diastolic blood pressure 74 mm[Hg] Darío Floro CNM Work Phone: [facility] 12-26-2024 16:02-0400 Systolic blood pressure 116 mm[Hg] Darío Floro CNM Work Phone: [facility] 12-11-2024 15:56-0400 Diastolic blood pressure 70 mm[Hg] Darío Floro CNM Work Phone: [facility] 12-11-2024 15:56-0400 Systolic blood pressure 120 mm[Hg] Darío Floro CNM Work Phone: [facility] 12-07-2024 08:17-0400 Body height 177.8 cm Awilda Petznick DO Work Phone: [facility] 12-07-2024 08:17-0400 Body temperature 97.9 [degF] Awilda Petznick DO Work Phone: [facility] 12-07-2024 08:17-0400 Diastolic blood pressure 66 mm[Hg] Awilda Petznick DO Work Phone: [facility] 12-07-2024 08:17-0400 Heart rate 86 /min Awilda Petznick DO Work Phone: [facility] 12-07-2024 08:17-0400 SaO2% (BldA) [Mass fraction] 98 % Awilda Petznick DO Work Phone: [facility] 12-07-2024 08:17-0400 Systolic blood pressure 126 mm[Hg] Awilda Petznick DO Work Phone: [facility] 11-15-2024 16:31-0400 Body mass index (BMI) [Ratio] 34.44 kg/m2 Darío Banuelos CNM Work Phone: [facility] 11-15-2024 16:31-0400 Body weight 108.86 kg Darío Banuelos CNM Work Phone: [facility] 11-15-2024 16:31-0400 Diastolic blood pressure 78 mm[Hg] Darío Banuelos CNM Work Phone: [facility] 11-15-2024 16:31-0400 Systolic blood pressure 120 mm[Hg] Darío Banuelos CNM Work Phone: [facility] 11-08-2024 09:17-0400 Body height 177.8 cm Tricia Rowland MD Work Phone: [facility] 11-08-2024 09:17-0400 Body mass index (BMI) [Ratio] 34.06 kg/m2 Tricia Rowland MD Work Phone: [facility] 11-08-2024 09:17-0400 Body weight 107.68 kg Tricia Rowland MD Work Phone: [facility] 11-08-2024 09:17-0400 Diastolic blood pressure 64 mm[Hg] Tricia Rowland MD Work Phone: [facility] 11-08-2024 09:17-0400 Heart rate 80 /min Tricia Rowland MD Work Phone: [facility] 11-08-2024 09:17-0400 SaO2% (BldA) [Mass fraction] 98 % Tricia Rowland MD Work Phone: [facility] 11-08-2024 09:17-0400 Systolic blood pressure 128 mm[Hg] Tricia Rowland MD Work Phone: [facility] 10-09-2024 15:40-0500 Body height 177.8 cm Awilda Petznick DO Work Phone: [facility] 10-09-2024 15:40-0500 Body mass index (BMI) [Ratio] 34.01 kg/m2 Awilda Petznick DO Work Phone: [facility] 10-09-2024 15:40-0500 Body temperature 98.2 [degF] Awilda Petznick DO Work Phone: [facility] 10-09-2024 15:40-0500 Body weight 107.5 kg Awilda Petznick DO Work Phone: [facility] 10-09-2024 15:40-0500 Diastolic blood pressure 66 mm[Hg] Awilda Petznick DO Work Phone: [facility] 10-09-2024 15:40-0500 Heart rate 98 /min Awilda Petznick DO Work Phone: [facility] 10-09-2024 15:40-0500 SaO2% (BldA) [Mass fraction] 98 % Awilda Petznick DO Work Phone: [facility] 10-09-2024 15:40-0500 Systolic blood pressure 128 mm[Hg] Awilda Petznick DO Work Phone: [facility] 09-28-2024 16:17-0500 Body mass index (BMI) [Ratio] 34.58 kg/m2 Darío Banuelos CNM Work Phone: [facility] 09-28-2024 16:17-0500 Body weight 109.32 kg Darío BRANDM Work Phone: [facility] 09-28-2024 16:17-0500 Diastolic blood pressure 70 mm[Hg] Darío Banuelos CNM Work Phone: [facility] 09-28-2024 16:17-0500 Systolic blood pressure 120 mm[Hg] Darío Banuelos CNM Work Phone: [facility] 09-19-2024 10:31-0500 Body height 177.8 cm Aye Saucedo MD Work Phone: [facility] 09-19-2024 10:31-0500 Body mass index (BMI) [Ratio] 34.15 kg/m2 Aye Saucedo MD Work Phone: [facility] 09-19-2024 10:31-0500 Body weight 107.96 kg Aye Saucedo MD Work Phone: [facility] 09-19-2024 10:31-0500 Diastolic blood pressure 76 mm[Hg] Aye Saucedo MD Work Phone: [facility] 09-19-2024 10:31-0500 Heart rate 85 /min Aye Saucedo MD Work Phone: [facility] 09-19-2024 10:31-0500 SaO2% (BldA) [Mass fraction] 98 % Aye Saucedo MD Work Phone: [facility] 09-19-2024 10:31-0500 Systolic blood pressure 122 mm[Hg] Aye Saucedo MD Work Phone: [facility] 09-11-2024 08:12-0500 Body mass index (BMI) [Ratio] 34.29 kg/m2 Clarke Modi MD Work Phone: [facility] 09-11-2024 08:12-0500 Body weight 108.41 kg Clarke Modi MD Work Phone: [facility] 09-11-2024 08:12-0500 Diastolic blood pressure 81 mm[Hg] Clarke Modi MD Work Phone: [facility] 09-11-2024 08:12-0500 Heart rate 80 /min Clarke Modi MD Work Phone: [facility] 09-11-2024 08:12-0500 Systolic blood pressure 122 mm[Hg] Clarke Modi MD Work Phone: [facility] 09-01-2024 08:54-0500 Body height 177.8 cm Awilda Petznick DO Work Phone: [facility] 09-01-2024 08:54-0500 Body mass index (BMI) [Ratio] 34.44 kg/m2 Awilda Petznick DO Work Phone: [facility] 09-01-2024 08:54-0500 Body temperature 98.49 [degF] Awilda Petznick DO Work Phone: [facility] 09-01-2024 08:54-0500 Body weight 108.86 kg Awilda Petznick DO Work Phone: [facility] 09-01-2024 08:54-0500 Diastolic blood pressure 72 mm[Hg] Awilda Petznick DO Work Phone: [facility] 09-01-2024 08:54-0500 Heart rate 92 /min Awilda Petznick DO Work Phone: [facility] 09-01-2024 08:54-0500 SaO2% (BldA) [Mass fraction] 97 % Awilda Petznick DO Work Phone: [facility] 09-01-2024 08:54-0500 Systolic blood pressure 126 mm[Hg] Awilda Petznick DO Work Phone: [facility] 08-14-2024 10:40-0500 Body height 177.8 cm Svetlana Jack PA-C Work Phone: [facility] 08-14-2024 10:40-0500 Body mass index (BMI) [Ratio] 34.72 kg/m2 Svetlana Lavoy PA-C Work Phone: [facility] [employer] [facility] 08-14-2024 10:40-0500 Body weight 109.77 kg Svetlana Lavoy PA-C Work Phone: [facility] 08-14-2024 10:40-0500 Diastolic blood pressure 68 mm[Hg] Svetlana Lavoy PA-C Work Phone: [facility] 08-14-2024 10:40-0500 Heart rate 86 /min Svetlana Lavoy PA-C Work Phone: [facility] 08-14-2024 10:40-0500 Systolic blood pressure 134 mm[Hg] Svetlana Lavoy PA-C Work Phone: [facility] 08-14-2024 09:42-0500 Body height 177.8 cm Shauna Denny RN Work Phone: [facility] 08-14-2024 09:41-0500 Body mass index (BMI) [Ratio] 34.72 kg/m2 Shauna Denny RN Work Phone: [facility] 08-14-2024 09:41-0500 Body weight 109.77 kg Shauna Denny RN Work Phone: [facility] 08-03-2024 08:36-0500 Body mass index (BMI) [Ratio] 35.3 kg/m2 Darío Sheebao CNM Work Phone: [facility] 08-03-2024 08:36-0500 Body weight 111.58 kg Darío Sheebao CNM Work Phone: [facility] 08-03-2024 08:36-0500 Diastolic blood pressure 80 mm[Hg] Darío Sheebao CNM Work Phone: [facility] 08-03-2024 08:36-0500 Systolic blood pressure 122 mm[Hg] Darío Sheebao CNM Work Phone: [facility] 07-10-2024 15:43-0500 Body mass index (BMI) [Ratio] 35.3 kg/m2 Darío BRAND Work Phone: [facility] 07-10-2024 15:43-0500 Body weight 111.58 kg Darío BRANDM Work Phone: [facility] 07-10-2024 15:43-0500 Diastolic blood pressure 76 mm[Hg] Darío Banuelos CNM Work Phone: [facility] 07-10-2024 15:43-0500 Systolic blood pressure 120 mm[Hg] Darío Banuelos CNM Work Phone: [facility] 06-08-2024 14:04-0400 Body height 177.8 cm Awilda Petznick DO Work Phone: [facility] 06-08-2024 14:04-0400 Body mass index (BMI) [Ratio] 35.01 kg/m2 Awilda Petznick DO Work Phone: [facility] 06-08-2024 14:04-0400 Body temperature 98.49 [degF] Awilda Petznick DO Work Phone: [facility] 06-08-2024 14:04-0400 Body weight 110.68 kg Awilda Petznick DO Work Phone: [facility] 06-08-2024 14:04-0400 Diastolic blood pressure 72 mm[Hg] Awilda Petznick DO Work Phone: [facility] 06-08-2024 14:04-0400 Heart rate 87 /min Awilda Petznick DO Work Phone: [facility] 06-08-2024 14:04-0400 SaO2% (BldA) [Mass fraction] 98 % Awilda Petznick DO Work Phone: [facility] 06-08-2024 14:04-0400 Systolic blood pressure 138 mm[Hg] Awilda Petznick DO Work Phone: [facility] Encounters Encounter Date Encounter Type Care Provider Facility Start: 01-15-2025 End: 01-15-2025 Subsequent care visit Darío Díazo CNM Work Phone: [facility] Comment on above: 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 guerrero itus without complication, without long- term current use of insulin (Primary Dx); with type 2 diabetes mellitus in third trimester Start: 01-15-2025 End: 01-15-2025 Bamboo flowsheet Darío L Floro CNM Work Phone: [facility] Start: 01-15-2025 End: 01-15-2025 Bamboo flowsheet Darío L Floro CNM Work Phone: [facility] Start: 01-12-2025 End: 01-12-2025 Clinisync Result Encounter Henry Flaco DO Work Phone: [facility] Unsolicited Start: 01-12-2025 End: 01-12-2025 Clinisync Result Encounter Henry Flaco DO Work Phone: [facility] Unsolicited Start: 01-09-2025 End: 01-09-2025 ambulatory DARÍO L FLORO Not Available Start: 01-09-2025 End: 01-09-2025 Subsequent care visit Darío Díazo CNM Work Phone: [facility] Comment on above: 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 guerrero itus treated with insulin ([facility]) (Primary Dx); Encounter for care [...] Start: 01-01-2025 End: 01-01-2025 Bamboo flowsheet Darío Díazo CNM Work Phone: [facility] Start: 12-29-2024 End: 12-29-2024 Clinisync Result Encounter Henry Flaco DO Work Phone: [facility] Unsolicited Start: 12-29-2024 End: 12-29-2024 Clinisync Result Encounter Henry Flaco DO Work Phone: [facility] Unsolicited Start: 12-26-2024 End: 12-26-2024 ambulatory DARÍO Nadine DÍAZO Not Available Start: 12-26-2024 End: 12-26-2024 Subsequent care visit Darío Banuelos CNM Work Phone: [facility] Comment on above: with type 2 diabetes mellitus in third trimester (Primary Dx); Screening for iron deficiency anemia; 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 mellitus treated with insulin ([facility]) Start: 12-26-2024 End: 12-26-2024 Bamboo flowsheet Darío Díazo CNM Work Phone: [facility] Start: 12-26-2024 End: 12-26-2024 Bamboo flowsheet Darío Díazo CNM Work Phone: [facility] [...] minutes Awilda Delatorre DO Work Phone: [facility] 230 Comment on above: with type 2 diabetes mellitus in third trimester (Primary Dx); with type 2 diabetes mellitus in second trimester Start: 12-07-2024 End: 12-07-2024 ambulatory AWILDAJOSE GARCESISABELLICK Not Available Start: 11-15-2024 End: 11-15-2024 Subsequent [...] 30 minutes Aye Saucedo MD Work Phone: [facility] Comment on above: Long Q-T syndrome (P rimary Dx); Hx of prolonged Q-T interval on ECG Start: 11-08-2024 End: 11-08-2024 ambulatory TRICIA ROWLAND [facility] Start: 11-07-2024 End: 11-07-2024 Telephone encounter Abby Andino [facility] Start: 10-31-2024 End: 10-31-2024 ambulatory [facility] Start: 10-18-2024 End: 10-18-2024 ambulatory DARÍO L FLORO Not Available Start: 10-18-2024 End: 10-18-2024 Bamboo flowsheet Darío L Floro CNM Work Phone: [facility] Start: 10-18-2024 End: 10-18-2024 Bamboo flowsheet Darío L Floro CNM Work Phone: [facility] Start: 10-10-2024 End: 10-10-2024 Office outpatient visit 25 minutes Clarke Modi MD Work Phone: [facility] Comment on above: Pre-existing type 2 diabetes mellitus during in second trimester (Primary Dx) Start: 10-10-2024 End: 10-10-2024 [facility] Start: 10-09-2024 End: 10-09-2024 Office outpatient visit 15 minutes Awilda Delatorre DO Work Phone: [facility] Comment on above: with type 2 diabetes mellitus in second trimester (Primary Dx); 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 mellitus without complication, without long-term current use of insulin ([facility]) Start: 10-09-2024 End: 10-09-2024 ambulatory AWILDA DELATORRE Not Available Start: 10-03-2024 End: 10-03-2024 [facility] Start: 09-28-2024 End: 09-28-2024 Subsequent care visit Darío L Sheebao CNM Work Phone: [facility] Comment on above: Encounter for prenat al care of first , second trimester (Primary Dx); 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 mellitus without complication, without long-term current use of insulin ([facility]) Start: 09-28-2024 End: 09-28-2024 ambulatory DARÍO BANUELOS Not Available Start: 09-28-2024 End: 09-28-2024 Bamboo flowsheet Darío Banuelos CNM Work Phone: [facility] Start: 09-28-2024 End: 09-28-2024 Bamboo flowsheet Darío Banuelos CNM Work Phone: [facility] Start: 09-19-2024 End: 09-19-2024 Office consultation new/estab patient 40 min Jacque Schneider MD Work Phone: [facility] Comment on above: Long Q-T syndrome (P rimary Dx); Type 2 diabetes mellitus without complication, unspecified whether residential insulin use ([facility]) Start: 09-19-2024 End: 09-19-2024 ambulatory [facility] Start: 09-18-2024 End: 09-18-2024 Telephone encounter Abby Andino CMA [facility] Start: 09-14-2024 End: 09-14-2024 Chart abstracting Jacque Schneider MD Work Phone: [facility] Start: 09-11-2024 End: 09-11-2024 Telephone encounter Yudelka Randall RN [facility] Start: 09-11-2024 End: 09-11-2024 Office outpatient visit 25 minutes Clarke Modi MD Work Phone: [facility] Comment on above: Pre-existing type 2 diabetes mellitus during in second trimester (Primary Dx); Long Q-T syndrome Start: 09-11-2024 End: 09-11-2024 ambulatory CLARKE MODI [facility] Start: 09-05-2024 End: 09-05-2024 Telephone encounter Sparkle Castillo RN [facility] Start: 09-01-2024 End: 09-01-2024 Office outpatient visit 25 minutes Awilda Delatorre DO Work Phone: [facility] Comment on above: with type 2 diabetes mellitus in second trimester (Primary Dx) Start: 09-01-2024 End: 09-01-2024 ambulatory AWILDA DELATORRE Not Available Start: 08-28-2024 End: 08-28-2024 Telephone encounter Donna Posadas RN [facility] Start: 08-23-2024 End: 08-23-2024 Office outpatient visit 25 minutes Ariella Roberto GABBY Work Phone: [facility] Comment on above: Type 2 diabetes guerrero itus without complication, unspecified whether residential insulin use ([facility]) (Primary Dx) Start: 08-23-2024 End: 08-23-2024 ambulatory ARIELLA [facility] Start: 08-14-2024 End: 08-14-2024 Office outpatient new 45 minutes Svetlana Jack PA-C Work Phone: [facility] Comment on above: with type 2 diabetes mellitus in second trimester (Primary Dx); Long Q-T syndrome Start: 08-14-2024 End: 08-14-2024 ambulatory Shauna Denny RN Work Phone: [facility] Comment on above: Pre-existing type 2 diabetes mellitus in in first trimester with type 2 diabetes mellitus in second trimester (Primary Dx) Start: 08-03-2024 End: 08-03-2024 Bamboo flowsheet Darío Nadine Díazo CN Work Phone: [facility] Start: 08-03-2024 End: 08-03-2024 Bamboo flowsheet Darío L Sheebao CNM Work Phone: [facility] Start: 08-03-2024 End: 08-03-2024 Subsequent care visit Darío Díazo CNM Work Phone: [facility] Comment on above: Encounter for prenat al care of first , first trimester (Primary Dx); Type 2 diabetes mellitus with hyperosmolarity without coma, without long-term current use of insulin ([facility]) Start: 08-03-2024 End: 08-03-2024 ambulatory DARÍO L FLORO Not Available Start: 07-25-2024 End: 07-25-2024 Chart abstracting Scanning Provider External [facility] Start: 07-10-2024 End: 07-10-2024 Subsequent care visit Darío Díazo CNM Work [...] minutes Awilda Delatorre DO Work Phone: [facility] 230 Comment on above: Type 2 diabetes guerrero itus without complication, without long- term current use of insulin ([facility]) Start: 06-08-2024 End: 06-08-2024 ambulatory AWILDA DELATORRE Not Available Start: 05-03-2024 End: 05-03-2024 Telephone encounter Darío Nadine Floro CNM Work Phone: [facility] Start: 02-28-2024 End: 02-28-2024 ambulatory AWILDA DELATORRE Not Available Start: 07-05-2019 End: 07-06-2019 Patient encounter procedure DARÍOTESHA BANUELOS [facility] Start: 07-05-2019 End: 07-05-2019 Subsequent hospital visit by physician [facility] Laboratory Procedures Date Procedure Procedure Detail Performing Clinician Start: 01-12-2025 US OB BPP W NON-STRESS Henry Flaco DO Work Phone: Start: 01-12-2025 US OB GROWTH Henry Fazi o DO Work Phone: Start: 12-29-2024 US OB BPP W NON-STRESS [...] RNAL MEDICINE - DIABETES EDUCATION Darío Banuelos NIB ASSEMBLER-CN Work Phone: Start: 08-14-2024 AMB REFERRAL TO MATE [facility]L MEDICINE - NUTRITION EDUCATION Darío Banuelos NIB ASSEMBLER-CN Work Phone: Start: 07-11-2024 CHLAMYDIA/GC BY PCR [...] Start: 07-05-2019 Hemoglobin glycosyla carola a1c DARÍO FLORO Start: 07-05-2019 Lipid panel DARÍO FL SHAYNE Start: 07-05-2019 Assay of insulin total Darío Banuelos Work Phone: Start: 07-05-2019 Hemoglobin glycosyla carola a1c Darío Díazo Work Phone: Start: 07-05-2019 Lipid panel Darío Fl shayne Work Phone: Plan of Treatment Date Care Activity Detail Author Start: 11-08-2025 Adult BMI Screening Adult BMI Screen ing [facility] Start: 11-08-2025 Tobacco Screening Tobacco Screening [facility] Start: 09-19-2025 Adult BMI Screening Adult BMI Screen ing [facility] Start: 09-19-2025 Tobacco Screening Tobacco Screening [facility] Start: 09-11-2025 Adult BMI Screening Adult BMI Screen ing [facility] Start: 09-11-2025 Tobacco Screening Tobacco Screening [facility] Start: 08-30-2025 Urine screening for protein Diabetes: Urine Protein Screening [facility] Start: 08-14-2025 Adult BMI Screening Adult BMI Screen ing [facility] Start: 08-14-2025 Tobacco Screening Tobacco Screening [facility] Start: 08-14-2025 End: 08-14-2025 US MFM with or without consult US MFM with or without consult Imaging Routine with type 2 diabetes mellitus in second trimester Expected: 08/14/2025 (Approximate), Expires: 08/14/2025 SHIFT Work Phone: Comment on above: Expected: 08/14/2025 (Approximate), Expires: 08/14/2025 Start: 04-16-2025 Influenza vaccination Influenz a Vaccine (Season Ended) [facility] Start: 02-15-2025 End: 02-15-2025 Professional / ancillary services management 02/15/2025 4:00 PM EDT Ancillary Procedure [facility] [address] [address] [facility] Start: 02-13-2025 End: 02-13-2025 Patient encounter procedure 02/13/2025 4:00 PM EDT Routine [facility] [address] [facility] [place] [address] Darío Banuelos, CNM [address] [place] [address] [facility] Start: 02-12-2025 End: 02-12-2025 Patient encounter procedure 02/12/2025 4:30 PM EDT Routine [facility] [address] [facility] [place] [address] Darío Banuelos, CNM [address] [facility] [address] [facility] Start: 02-09-2025 End: 02-09-2025 Professional / ancillary services management 02/09/2025 4:00 PM EDT Ancillary Procedure [facility] [address] [address] [facility] Start: 02-06-2025 End: 02-06-2025 Patient encounter procedure [facility] Start: 02-02-2025 End: 02-02-2025 Professional / ancillary services management 02/02/2025 4:00 PM EDT Ancillary Procedure [facility] [address] [place] [address] [facility] Start: 01-30-2025 End: 01-30-2025 Patient encounter procedure 01/30/2025 4:00 PM EDT Routine [facility] [address] [facility] [place] [address] Darío Banuelos, CNM [address] [facility] [address] [facility] Start: 01-29-2025 End: 01-29-2025 Patient encounter procedure 01/29/2025 4:30 PM EDT Routine [facility] [address] [facility] [place] [address] Darío Banuelos, CNM [address] [facility] [address] [facility] Start: 01-26-2025 End: 01-26-2025 Professional / ancillary services management 01/26/2025 4:00 PM EDT Ancillary Procedure [facility] [address] [facility] [address] [place] [address] [facility] Start: 01-23-2025 End: 01-23-2025 Patient encounter procedure 01/23/2025 4:00 PM EDT Routine [facility] [address] [facility] [place] [address] Darío Banuelos, CNM [address] [facility] [place] [address] [facility] Start: 01-22-2025 End: 01-22-2025 Patient encounter procedure 01/22/2025 4:30 PM EDT Routine [facility] [address] [facility] [place] [address] Darío Banuelos, CNM [address] [facility] [place] [address] [facility] Start: 01-19-2025 End: 01-19-2025 Professional / ancillary services management 01/19/2025 9:15 AM EDT Ancillary Procedure [facility] [address] [facility] [address] [place] [address] [facility] Start: 01-18-2025 End: 01-18-2025 Patient encounter procedure [facility] Comment on above: with type 2 diabetes mellitus in third trimester Start: 01-16-2025 End: 01-16-2025 Patient encounter procedure 01/16/2025 4:00 PM EDT Routine [facility] [address] [place] [address] Darío Banuelos, CNM [address] [place] [address] [facility] Start: 01-15-2025 End: 01-15-2025 Patient encounter procedure [facility] Comment on above: Arrived Start: 01-12-2025 End: 01-12-2025 Professional / ancillary services management 01/12/2025 4:00 PM EDT Ancillary Procedure [facility] [address] [address] [facility] Start: 01-09-2025 End: 01-09-2025 Patient encounter procedure 01/09/2025 4:00 PM EDT Routine [facility] [address] [place] [address] Darío Banuelos, M [address] [place] [address] [facility] Start: 01-06-2025 Hemoglobin A1c measurement Diabetes: Hemoglobin A1C [facility] Start: 01-05-2025 End: 01-05-2025 Professional / ancillary services management 01/05/2025 9:15 AM EDT Ancillary Procedure [facility] [address] [address] [facility] Start: 01-03-2025 Urine screening for protein Diabetes: Urine Protein Screening [facility] Start: 01-02-2025 End: 01-02-2025 Patient encounter procedure 01/02/2025 4:00 PM EDT Routine [facility] [address] [facility] [place] [address] SheebalauraDarío, CNM [address] [facility] [place] [address] [facility] Start: 01-01-2025 End: 01-01-2025 Patient encounter procedure 01/01/2025 4:30 PM EDT Routine [facility] [address] [facility] [place] [address] VinDarío, CNM [address] [facility] [place] [address] [facility] Start: 12-29-2024 End: 12-29-2024 Professional / ancillary services management 12/29/2024 4:00 PM EDT Ancillary Procedure [facility] [address] [place] [address] [facility] Start: 12-26-2024 End: 12-26-2024 Patient encounter procedure 12/26/2024 4:00 PM EDT Routine [facility] [address] [facility] [place] [address] Wanda Banueloserie Nadine, CNM [address] [facility] [place] [address] [facility] Start: 12-26-2024 End: 12-26-2025 [...] EDT Ancillary Procedure [facility] [address] [facility] [address] [place] [address] [facility] Start: 12-11-2024 End: [...] [address] [place] [address] Awilda Delatorre, [address] [place] [address] [facility] Start: 11-15-2024 End: 11-15-2024 Patient encounter procedure 11/15/2024 4:30 PM EDT Routine [facility] [address] [place] [address] Darío Banuelos, SADIA [address] [place] [address] Arrived [facility] Comment on above: Arrived Start: 11-15-2024 End: 11-15-2025 US for US OB follow up transabdominal approach Imaging Routine related condition in third trimester Expected: 11/15/2024, Expires: 11/15/2025 [facility] Work Phone: Comment on above: Expected: 11/15/2024 , Expires: 11/15/2025 Start: 11-08-2024 End: 11-08-2024 Patient encounter procedure 11/08/2024 9:30 AM EDT Office Visit [facility] [address] [place] [address] Aye Saucedo MD [address] [place] [address] Tricia Rowland MD [address] [place] [address] [facility] Start: 10-31-2024 End: 10-31-2024 Patient encounter procedure 10/31/2024 8:00 AM EDT Appointment [facility] [address] [place] [address] [facility] Start: 10-18-2024 End: 10-18-2024 Patient encounter procedure [facility] Comment on above: Arrived Start: 10-10-2024 Hemoglobin A1c measurement Diabetes: Hemoglobin A1C [facility] Start: 10-10-2024 End: 10-10-2024 Telemedicine consultation with patient 10/10/2024 11:30 AM EST Telemedicine [facility] at [facility] [address] [place] [phone] Clarke Modi MD [address] [place] [address] [facility] at [facility] Start: 10-09-2024 End: 10-09-2024 Patient encounter procedure 10/09/2024 3:45 PM EST Office Visit [facility] [address] [place] [address] Awilda Delatorre, [address] [place] [address] [facility] Start: 10-03-2024 End: 10-03-2024 Patient encounter procedure 10/03/2024 10:00 AM EST Appointment [facility] [address] [place] [phone] [facility] Start: 09-28-2024 End: 09-28-2024 Patient encounter procedure [facility] Comment on above: Arrived Start: 09-25-2024 End: 09-25-2024 Patient encounter procedure 09/25/2024 8:30 AM EST Appointment [facility] [address] [place] [address] [facility] Start: 09-19-2024 End: 09-19-2024 Patient encounter procedure 09/19/2024 8:15 AM EST Office Visit [facility] [address] [facility] [address] [place] [phone] Jacque Schneider MD [address] [place] [address] [facility] Start: 09-11-2024 End: 09-11-2024 Patient encounter procedure 09/11/2024 8:00 AM EST Office Visit [facility] at [facility] [address] [place] [address] Clarke Modi MD [address], [address] [place] [address] [facility] at [facility] Start: 09-08-2024 Hemoglobin A1c measurement Diabetes: Hemoglobin A1C [facility] Start: 08-30-2024 End: 08-30-2024 Patient encounter procedure 08/30/2024 4:30 PM EST Office Visit [facility] [address] [place] [id number] Darío Banuelos CNM [address] [place], [place] [phone] [facility] Start: 08-23-2024 End: 08-23-2024 Telemedicine consultation with patient 08/23/2024 2:00 PM EST Telemedicine [facility] at [facility] [address] [place] [address] Ariella Roberto, NIB ASSEMBLER-AIRCRAFT INSTRUMENT ENGINEER [address] [facility] [place] [address] [facility] at [facility] Start: 08-14-2024 End: 11-12-2024 Protein creat ratio Protein creat ratio Lab Routine with type 2 diabetes mellitus in second trimester Expected: 08/14/2024 (Approximate), Expires: 11/12/2024 [facility] Comment on above: Expected: 08/14/2024 (Approximate), Expires: 11/12/2024 Start: 08-14-2024 End: 08-14-2024 Patient encounter procedure 08/14/2024 11:00 AM EST Office Visit [facility] [address] [place] [phone] Svetlana Jack PA-C [address] [facility] [place], [place] [phone] [facility] Start: 08-14-2024 End: 08-14-2024 ambulatory 08/14/2024 8:30 AM EST Support Visit [facility] at [facility] [address] [facility] [place] [address] Shauna Denny, RN [address] [facility] JAIN, [address] [place] [address] Maribell Amin, OLAYINKA [address] [facility] WONGLINODmitri, [address] [place] [address] Maternal- Medicine at [facility] Start: 08-03-2024 End: 08-03-2024 Patient encounter procedure 08/03/2024 8:30 AM EST Routine [facility] [address] [place] [id number] Darío Banuelos, [facility] [address] [place] [address] Arrived [facility] Comment on above: Arrived Start: 07-10-2024 End: 07-10-2024 Patient encounter procedure 07/10/2024 3:45 PM EST Routine [facility] [address] [place] [id number] Darío Banuelos, [facility] [address] [place] [address] Arrived [facility] Comment on above: Arrived Start: 05-30-2024 Hemoglobin A1c measurement Diabetes: Hemoglobin A1C [facility] Start: 05-30-2024 End: 05-30-2024 Patient encounter procedure 05/30/2024 8:45 AM EDT Office Visit [facility] [address] [place] [address] Awilda Delatorre, [address] [place] [address] [facility] [address] Start: 04-16-2024 Influenza vaccination N [facility] Start: 09-06-2019 DTaP,Tdap and Td Vaccines (8 - Td or Tdap) DTaP,Tdap and Td Vaccines (8 - Td or Tdap) [facility] Start: 04-16-2019 Influenza vaccination Flu vaccine (# 1) [place], [place] Start: 2016 Cervical cancer screen Cervical canc er screen [place], [place] Start: 2016 Screening for malign ant neoplasm of cervix Pap Smear [facility] Start: 2014 DTaP,Tdap and Td Vaccines (1 - Tdap) DTaP,Tdap and Td Vaccines (1 - Tdap) [facility] Start: 2014 Urine screening for protein Diabetes: Urine Protein Screening [facility] Start: 2013 Adult BMI Follow Up Plan Adult BMI Follow Up Plan [facility] Start: 2013 Adult BMI Screening Adult BMI Screen ing [facility] Start: 2013 Diabetic foot examination Diabetic Foot Exam [facility] Start: 2011 Chlamydia screen Chlamydia screen [place], [place] Start: 2010 HIV screen HIV screen [place], [place] Start: 2007 Depression Screening Depression Scre ening [facility] Start: 2007 Tobacco Screening Tobacco Screening [facility] Start: 2006 DTaP/Tdap/Td vaccine (1 - Tdap) DTaP/Tdap/Td vaccine (1 - Tdap) [place], [place] Start: 2006 HPV vaccine (1 - Fem tarun 2-dose series) HPV vaccine (1 - Female 2-dose series) [place] Start: 2005 Glaucoma screening Diabetes: R etinopathy Screening [facility] Start: 1996 Varicella Vaccine (1 of 2 - 2-dose childhood series) Varicella Vaccine (1 of 2 - 2-dose childhood series) [place] Start: 1995 Glaucoma screening Diabetic Op hthalmology Exam [facility] Start: 1995 Urine screening for protein Urine Microalbumin [facility] End: 08-14-2025 Comprehensive metabolic 2000 panel - Serum or Plasma Comprehensive metabolic panel Lab Routine with type 2 diabetes mellitus in second trimester 1 Occurrences starting 08/14/2024 until 08/14/2025 [facility] Work Phone: Comment on above: 1 Occurrences starti ng 08/14/2024 until 08/14/2025 End: 08-14-2025 ECG 12 lead ECG 12 lead ECG Routine with type 2 diabetes mellitus in second trimester Long Q-T syndrome 1 Occurrences starting 08/14/2024 until 08/14/2025 [facility] Comment on above: 1 Occurrences starti ng 08/14/2024 until 08/14/2025 End: 08-14-2025 Thyroid profile includes TSH FT4 Thyroid profile includes TSH FT4 Lab Routine with type 2 diabetes mellitus in second trimester 1 Occurrences starting 08/14/2024 until 08/14/2025 [facility] Comment on above: 1 Occurrences starti ng 08/14/2024 until 08/14/2025 Immunizations Immunization Date Immunization Notes Care Provider Marilee hicks 09-06-2009 tetanus toxoid, redu keron diphtheria toxoid, and acellular pertussis vaccine, adsorbed [facility] Work Phone: [facility] 08-25-2007 meningococcal polysaccharide (groups A, C, Y and W-135) diphtheria toxoid conjugate vaccine (MCV4P) [facility] Work Phone: [facility] 08-25-2007 tetanus toxoid, redu keron diphtheria toxoid, and acellular pertussis vaccine, adsorbed [facility] Work Phone: [facility] 08-25-2007 varicella virus vaccine Madeline [facility] Work Phone: [facility] 09-06-2000 diphtheria, tetanus toxoids and acellular pertussis vaccine, unspecified formulation [facility] Work Phone: [facility] 09-06-2000 measles, mumps and r ubella virus vaccine [facility] Work Phone: [facility] 09-06-2000 poliovirus vaccine, unspecified formulation Darío Floro CN Work Phone: [facility] 12-24-1996 varicella virus vaccine Madeline gabbie Floro CN Work Phone: [facility] 10-12-1996 diphtheria, tetanus toxoids and acellular pertussis vaccine, unspecified formulation Darío Floro CNM Work Phone: [facility] 10-12-1996 haemophilus influenz ae type b vaccine, conjugate unspecified formulation Darío Floro CN Work Phone: [facility] 10-12-1996 measles, mumps and r ubella virus vaccine Darío Floro CN Work Phone: [facility] 02-25-1996 diphtheria, tetanus toxoids and acellular pertussis vaccine, unspecified formulation Darío Floro CN Work Phone: [facility] 02-25-1996 haemophilus influenz ae type b vaccine, conjugate unspecified formulation Darío Floro CN Work Phone: [facility] 02-25-1996 hepatitis B vaccine, pediatric or pediatric/adolescent dosage Darío Floro CN Work Phone: [facility] 02-25-1996 poliovirus vaccine, unspecified formulation Darío Floro CNM Work Phone: [facility] 1995 diphtheria, tetanus toxoids and acellular pertussis vaccine, unspecified formulation Darío Floro CNM Work Phone: [facility] 1995 haemophilus influenz ae type b vaccine, conjugate unspecified formulation Darío Floro CNM Work Phone: [facility] 1995 poliovirus vaccine, unspecified formulation Darío Floro CNM Work Phone: [facility] 1995 diphtheria, tetanus toxoids and acellular pertussis vaccine, unspecified formulation Darío Floro CNM Work Phone: [facility] 1995 haemophilus influenz ae type b vaccine, conjugate unspecified formulation Darío Floro CN Work Phone: [facility] 1995 hepatitis B vaccine, pediatric or pediatric/adolescent dosage Darío Floro CNM Work Phone: [facility] 1995 poliovirus vaccine, unspecified formulation Darío Floro CNM Work Phone: [facility] 1995 hepatitis B vaccine, pediatric or pediatric/adolescent dosage Darío Floro CNM Work Phone: [facility] Healthcare Payers Date Payer Category Payer Unknown BCBS BCBS OUT OF STATE xxxxxxxxxxxx 2019-Present [address] [place] [address] xxxxxxxxxxxx [id number] 2019 [facility] BCBS [id number] 2019 [facility] Managed Care - Other [id number]. [id number] 2019 Unknown [id number] 2016 Unknown [id number]. 1.13.693.2. [id number] 1995 Unknown [id number] 2.16.840.1.283108.3.579.2. 173 1995 Unknown [id number] 2.16.840.1.480554.3.579.2. 1286 1995 Unknown [id number] 2.16.840.1.824079.3.579.2. 1286 1995 Unknown [id number] 2.16.840.1.787035.3.579.2. 1286 1995 Unknown [id number] 2.16.840.1.936104.3.579.2. 1286 1995 Unknown [id number] 2.16.840.1.887824.3.579.2. 128 1995 Unknown [id number] 2.16.840.1.007331.3.579.2. 1285 1995 Unknown [id number] 2.16.840.1.607243.3.579.2. 1285 1995 Unknown [id number] 2.16.840.1.571092.3.579.2. 1285 1995 Unknown [id number] 2.16.840.1.853067.3.579.2. 128 1995 Unknown [id number] 2.16.840.1.523716.3.579.2. 1285 1995 Unknown [id number] 2.16.840.1.634551.3.579.2. 1286 1995 Unknown [id number] 2.16.840.1.410471.3.579.2. 9 1995 Unknown [id number] 2.16.840.1.819374.3.579.2. 9 1995 Unknown [id number] 2.16.840.1.582193.3.579.2. 9 1995 Unknown [id number] 2.16.840.1.211695.3.579.2. 9 1995 Unknown [id number] 2.16.840.1.146395.3.579.2. 9 1995 Unknown [id number] 2.16.840.1.233801.3.579.2. 1259 1995 Unknown [id number] 2.16.840.1.329309.3.579.2. 9 1995 Unknown [id number] 2.16.840.1.503554.3.579.2. 9 1995 Unknown [id number] 2.16.840.1.384887.3.579.2. 1258 1995 Unknown [id number] 2.16.840.1.114977.3.579.2. 9 1995 Unknown [id number] 2.16.840.1.235206.3.579.2. 9 1995 Unknown [id number] 2.16.840.1.351577.3.579.2. 9 1995 Unknown [id number] 2.16.840.1.725148.3.579.2. 1258 1995 Unknown [id number] 2.16.840.1.350877.3.579.2. 9 1995 Unknown [id number] 2.16.840.1.622257.3.579.2. 9 1995 Unknown [id number] 2.16.840.1.861151.3.579.2. 9 1995 Unknown [id number] 2.16.840.1.672524.3.579.2. 1259 Social History Date Type Detail Facility [facility] [place] Start: 1995 Sex Assigned At Not on file [place] Start: 02-10-2023 End: 07-25-2024 Tobacco smoking status NVIS Never smoked tobacco [facility] Start: 02-10-2023 End: 07-25-2024 Tobacco use and exposure Smokeless tobacco non-user [facility] Start: 06-08-2024 End: 12-25-2024 Alcoholic beverage intake Current drinker of alcohol (finding) [facility] Start: 04-09-2023 End: 06-07-2024 History of [...] to any clubs or organizations such as christianity groups, unions, fraternal or athletic groups, or [...] Not at all [facility] (I/We) worried wheth er (my/our) food would run out before (I/we) got money to buy more. Never true [facility] Start: 02-11-2023 Alcohol Comment 3 or 4 drinks on typical day / monthly or less. Caffeine: 1-2 cups/day [facility] Start: 1995 Sex assigned at Female [facility] Start: 02-08-2023 Gender identity Identifies as female gender (finding) [facility] Start: 05-16-2024 [facility] Start: 08-14-2024 End: 11-09-2024 Alcoholic beverage intake [facility] (finding) [facility] Start: 03-19-2015 End: 07-25-2024 Sex Female (finding) [facility] Medical Equipment Procedure Code Equipment Code Equipment Origin al Text Equipment Identifier Dates [id number] Start: 11-29-2023 End: 11-28-2024 Check urine for ketones if blood sugar/glucose 200 or above daily as needed. Use as directed. [id number] Start: 08-14-2024 USE DIRECTED FIVE TIMES DAILY [id number] Start: 10-03-2024 Functional Status Date Assessment Result Facility 12-07-2024 Patient Health [facility] ionnaire 2 item (PHQ-2) [Reported] [facility] Clinical Notes 05-03-2024 to 01-15-2025 Darío Banuelos CNM - 01/15/2025 4:30 PM EDTAbby Saul, [place] - 01/09/2025 4:00 PM EDTDarío Banuelos CNM - 01/09/2025 4:00 PM EDTDarío Banuelos CNM - 12/26/2024 4:00 PM EDT Note Date & Type Note Facility 01-15-2025 History of Presen t illness Narrative Subjective No chief complaint on file. Reginald Reyes is a 29 y.o. at 35w0d [...] a routine visit. documented in this encounter [facility] 01-09-2025 History of Presen t illness Narrative [...] a routine visit. documented in this encounter [facility] 12-26-2024 History of Presen t illness Narrative [...] will do all nst's and bpp's at [place] per Dr Sam Objective Physical Exam Weight: [...] a routine visit. documented in this encounter [facility] 12-25-2024 History of Presen t illness Narrative [...] nursing note reviewed. Exam conducted with a lay up operator present. Vitals: Estimated body mass index is [...] resulted Patient presents today for referral from [facility] due to Type 2 Diabetes and . Patient is setup for NST/BPP Bi-Weekly/Weekly at [facility]'s office. Patient voiced that she was seen at [facility] for anatomy Scan. Advised patient that it is preferred to have NST/BPP at [facility] for co-management in . Patient is agreeable with having location changed. Order will be given to patient today to have setup at [facility]. Discussed delivery with patient and if sugars are controlled well with insulin then she will be able to delivery at 39 weeks gestation, but if sugars are not well controlled then delivery would be recommended at 38 weeks to prevent issues with placenta. Patient is currently taking Aspirin 81mg daily. FHT 145, patient to continue care with [facility] and reach out to office with any concerns. Documented by Estelle Hughes LPN on behalf of: Henry Sam DO documented in this encounter [facility] 12-11-2024 History of Presen t illness Narrative [...] during . Managed by Awilda Crowley in [place]. Did see MFM Objective Physical Exam Expected [...] a routine visit. documented in this encounter [facility] 12-07-2024 History of Presen t illness Narrative [...] in the evening (1000 MG TABS) Labs [facility] HEMOGLOBIN A1C/HEMOGLOBIN.TOTAL:MFR:PT:BLD: QN: 5.7 Outpatient prescription Medication [...] they have any problems or questions. Reginald Ryees is doing very well and encouraged on [...] the patient today. documented in this encounter [facility] 11-15-2024 History of Presen t illness Narrative [...] a routine visit. documented in this encounter [facility] 11-08-2024 History of Presen t illness Narrative Reginald Reyes Date of visit: 11/08/2024 Date of : 1995 Age: 29 y.o. Patient Active Problem List Diagnosis Abnormal glucose Insulin resistance Mixed hyperlipidemia PCOS (polycystic ovarian syndrome) Type 2 diabetes mellitus without complication ([facility]) Pre-existing type 2 diabetes mellitus during in [...] Chief Complaint Patient presents with New Patient SPRAGGER - ref by [facility] for long QT [...] 460 milliseconds. She followed up with a head mva reactor operator but no intervention was performed since the [...] Past Medical History: Diagnosis Date Diabetes mellitus ([facility]) Hyperlipidemia Insulin resistance Long Q-T syndrome Prolonged [...] Resource Strain: Low Risk (06/07/2024) Received from [facility] Overall Financial Resource Strain (CARDIA) Difficulty of Paying Living Expenses: Not hard at all Food Insecurity: No Food Insecurity (11/08/2024) Hunger Screening Food Insecurity - Worry: Never True Food Insecurity - Inability: Never True Transportation Needs: No Transportation Needs (06/07/2024) Received from [facility] PRAPARE - Transportation Lack of Transportation (Medical): No Lack of Transportation (Non-Medical): No Physical Activity: Sufficiently Active (06/07/2024) Received from [facility] Exercise Vital Sign Days of Exercise per Week: 5 days Minutes of Exercise per Session: 30 min Stress: No Stress Concern Present (06/07/2024) Received from [facility] [place] [facility] - Occupational Stress Questionnaire Feeling of Stress : Not at all Social Connections: Socially Integrated (06/07/2024) Received from [facility] Social Connection and Isolation Panel [NHANES] Frequency of Communication with Friends and Family: More than three times a week Frequency of Social Gatherings with Friends and Family: Three times a week Attends [employer] Services: More than 4 times per year Active Member of Clubs or Organizations: Yes Attends Club or Organization Meetings: More than 4 times per year Marital Status: Interpersonal Safety: Not At Risk (04/09/2023) Received from [facility], [facility] Humiliation, Afraid, Rape, and Kick questionnaire Fear of Current or Ex-Partner: No Emotionally Abused: No Physically Abused: No Sexually Abused: No Housing Instability: Low Risk (06/07/2024) Received from [facility] Housing Stability Vital Sign Unable to Pay [...] - [facility] - Electrophysiology - [place], [place] - POC EKG 2. Hx of prolonged Q-T interval [...] Physician: Aye Saucedo MD [address] [place] [address] documented in this encounter [facility] 11-07-2024 Miscellaneous Notes [employer] MESSAGE REMINDER SENT TO PT TO REMIND OF PPC APPT. documented in this encounter [facility] 11-07-2024 Telephone encounter Note MYCHART MESSAGE REMINDER SENT TO PT TO REMIND OF PPC APPT. [facility] 10-10-2024 History of Presen t illness Narrative REASON FOR TELEMEDICINE VIDEO OFFICE VISIT: Suspected Maternal prolonged QT ruled out. HISTORY OF PRESENT ILLNESS: Reginald Reyes is a pleasant 29 y.o. G 1 P0 at 21w1d due on Estimated Date of Delivery: 02/19/25 . has been complicated with Pre gestational type 2 diabetes on insulin. Patient diabetes is managed by her draw tender and not by [facility]. Patient is comfortable with her draw tender. Blood glucose are adequately controlled. Suspected prolonged QT syndrome. Patient was told as a child so she might a borderline prolonged QT syndrome. No intervention was done. Patient then was lost for follow-up and has not seen unit manager rn for more than 10 years. Therefore the [...] syndrome) Type 2 diabetes mellitus without complication ([facility]) Long Q-T syndrome Pre-existing type 2 diabetes [...] Past Medical History: Diagnosis Date Diabetes mellitus ([facility]) Hyperlipidemia Insulin resistance Long Q-T syndrome Prolonged [...] completion of targeted anatomy and echocardiography at [facility]. 2. Serial growth ultrasounds every 4 weeks after 24 weeks gestation at her OB office. 3. No evidence of prolonged QT on baseline EKG and after meeting with cardiology. 4. InCase electrophysiology also rules out prolonged QT patient should be considered low risk and can be delivered at her local hospital. 5. Patient diabetes is managed through endocrinology and [facility] not involved and therefore no input from [facility]. 6. Initiate testing form twice weekly NST and weekly DL at 32 weeks gestation until delivery at her local hospital. 7. At 39 weeks gestation based on pre gestational type 2 diabetes on insulin. Thank you for allowing me to participate in Reginald Guy [facility]. If there are any questions, please do not hesitate to call me. Sincerely, CLARKE MODI MD Video Visit via Real-time Synchronous Audiovisual Provider Location: [facility] AT [address] [phone] Patient Location: Patient's home Patient Location Presser First: None Video Visit Consent Statement: I discussed [...] that there are some limitations compared to [id number] evaluations. We elected to proceed. documented in this encounter [facility] 10-09-2024 History of Presen t illness Narrative [...] in the evening (1000 MG TABS) Labs [facility] HEMOGLOBIN A1C/HEMOGLOBIN.TOTAL:MFR:PT:BLD: QN: 5.7 Outpatient prescription Medication marked as long-term The ASCVD Risk score (Kinmundy DK, et al., 2019) failed to calculate [...] complication, without long-term current use of insulin ([facility]) Relevant Orders POCT glycosylated hemoglobin (Hb A1C) [...] mouth in the morning. CONTINUOUS GLUCOSE SENSOR ([employer] G7 SENSOR) MISC USE DIRECTED to test [...] the patient today. documented in this encounter [facility] 09-28-2024 History of Presen t illness Narrative [...] complication, without long-term current use of insulin ([facility]) Continue vitamin. Labs reviewed Follow up in 2 weeks for a routine visit. documented in this encounter [facility] 09-19-2024 History of Presen t illness Narrative Reginald Reyes Date of visit: 09/19/2024 Date of : 1995 Age: 29 y.o. Patient Active Problem List Diagnosis Long Q-T syndrome Abnormal glucose Insulin resistance Mixed hyperlipidemia PCOS (polycystic ovarian syndrome) Type 2 diabetes mellitus without complication ([facility]) Long Q-T syndrome Pre-existing type 2 diabetes [...] by mouth in the morning. blood-glucose sensor ([employer] G7 SENSOR) device Use to monitor blood [...] Chief Complaint Patient presents with New Patient SPRAGGER REF - Long Q-T syndrome SEEN CARDIO [...] any family history. She stopped seeing a head mva reactor operator age of 18 Since she is now 18 weeks we are have been asked to evaluate her for this Today's EKG shows sinus rhythm QT is measured at 382 corrected 420 milliseconds Past Medical History: Diagnosis Date Diabetes mellitus ([facility]) Hyperlipidemia Insulin resistance Long Q-T syndrome Prolonged [...] Resource Strain: Low Risk (06/07/2024) Received from [facility] Overall Financial Resource Strain (CARDIA) Difficulty of Paying Living Expenses: Not hard at all Food Insecurity: No Food Insecurity (09/19/2024) Hunger Screening Food Insecurity - Worry: Never True Food Insecurity - Inability: Never True Transportation Needs: No Transportation Needs (06/07/2024) Received from [facility] PRAPARE - Transportation Lack of Transportation (Medical): No Lack of Transportation (Non-Medical): No Physical Activity: Sufficiently Active (06/07/2024) Received from [facility] Exercise Vital Sign Days of Exercise per Week: 5 days Minutes of Exercise per Session: 30 min Stress: No Stress Concern Present (06/07/2024) Received from [facility] [place] [facility] - Occupational Stress Questionnaire Feeling of Stress : Not at all Social Connections: Socially Integrated (06/07/2024) Received from [facility] Social Connection and Isolation Panel [NHANES] Frequency of Communication with Friends and Family: More than three times a week Frequency of Social Gatherings with Friends and Family: Three times a week Attends [employer] Services: More than 4 times per year Active Member of Clubs or Organizations: Yes Attends Club or Organization Meetings: More than 4 times per year Marital Status: Interpersonal Safety: Not At Risk (04/09/2023) Received from [facility], [facility] Humiliation, Afraid, Rape, and Kick questionnaire Fear of Current or Ex-Partner: No Emotionally Abused: No Physically Abused: No Sexually Abused: No Housing Instability: Low Risk (06/07/2024) Received from [facility] Housing Stability Vital Sign Unable to Pay [...] Q-T syndrome - [facility] [place], [place] - POCT EKG - [facility] [place], [place]; Future 2. Type 2 diabetes mellitus without complication, unspecified whether residential insulin use ([facility]) 1. Questionable long QT syndrome -she was [...] TODAYS ORDERS Orders Placed This Encounter Procedures [facility] [place] POCT EKG FOLLOW UP No follow-ups on file. PCP: Darío Banuelos APRN-SADIA Referring Physician: Svetlana Jack PA-C [id number] [address] documented in this encounter [facility] 09-18-2024 Miscellaneous Notes Left message for patient to remind them to bring their most current medication list with them to their appointment. documented in this encounter [facility] 09-18-2024 Telephone encounter Note Left message for patient to remind them to bring their most current medication list with them to their appointment. [facility] 09-11-2024 Miscellaneous Notes Called and spoke to patient regarding lab results (CMP, protein creatinine ratio, and thyroid profile). Informed patient results were received from [facility] Solutions and Dr. Modi reviewed. Per Dr. Modi, all results within normal limits. Patient verbalizes understanding and denies further questions. documented in this encounter [facility] 09-11-2024 Telephone encounter Note Called and spoke to patient regarding lab results (CMP, protein creatinine ratio, and thyroid profile). Informed patient results were received from [employer] and Dr. Modi reviewed. Per Dr. Modi, all results within normal limits. Patient verbalizes understanding and denies further questions. [facility] 09-11-2024 History of Presen t illness Narrative [...] insulin. Patient diabetes is managed by her draw tender and not by [facility]. Patient is comfortable with her draw tender. Blood glucose are adequately controlled. Currently NPH 15 units in the morning and 30 units at bedtime. Metformin 500 mg in the morning and 1000 mg at bedtime Suspected prolonged QT syndrome. Patient was told as a child so she might a borderline prolonged QT syndrome. No intervention was done. Patient then was lost for follow-up and has not seen unit manager rn for more than 10 years. Patient is scheduled to see a unit manager rn at her local hospital. Unlikely the patient has prolonged QT syndrome. Currently the patient has no complaints. The patient denies nausea, vomiting, abdominal pain, vaginal bleeding, SOB or chest pain. Patient Active Problem List Diagnosis Long Q-T syndrome Abnormal glucose Insulin resistance Mixed hyperlipidemia PCOS (polycystic ovarian syndrome) Type 2 diabetes mellitus without complication ([facility]) Long Q-T syndrome Pre-existing type 2 diabetes [...] Past Medical History: Diagnosis Date Diabetes mellitus ([facility]) Hyperlipidemia Insulin resistance Long Q-T syndrome Prolonged [...] time place and person. RECOMMENDATION: 1. Since draw tender is managing her blood glucose [facility] will not participate in glucose management during . 2. Targeted anatomy with dedicated echocardiography at [facility] office in [place]. 3. Telemedicine visit in 4 weeks to [...] CLARKE MODI MD documented in this encounter [facility] 09-05-2024 Miscellaneous Notes Called patient and left voicemail that Dr Modi reviewed Dexcom log and made no medication changes, she should continues on her current medication doses. Encouraged patient to call office if she has any questions. documented in this encounter [facility] 09-05-2024 Telephone encounter Note Called patient and left voicemail that Dr Modi reviewed Dexcom log and made no medication changes, she should continues on her current medication doses. Encouraged patient to call office if she has any questions. [facility] 09-01-2024 History of Presen t illness [...] to 34 units at pm by the [facility] in [place] Diet: limiting carbs, sugars and increase protein [...] the patient today. documented in this encounter [facility] 08-28-2024 Miscellaneous Notes Called pt to let [...] for next week. documented in this encounter [facility] 08-28-2024 Telephone encounter Note Called pt [...] will pull her dexcom for next week. [facility] 08-28-2024 Miscellaneous Notes error documented in this encounter [facility] 08-28-2024 Telephone encounter Note error [facility] 08-23-2024 History of Presen t illness Narrative REASON FOR OFFICE VISIT: Video Visit via Real-time Synchronous Audiovisual Provider Location: [facility] AT [address] [address] Patient Location: Patient's home Video [...] that there are some limitations compared to sunj-gv-nvqo evaluations. The patient consented to the presence of additional virtual and/or in-person participants. We elected to proceed. 1. Type 2 DM for the past 1.5 years- prefers to have draw tender treat her DM in ; A1c 6.4% 07/10/24 2. PCOS 3. Prolonged QT HISTORY OF PRESENT ILLNESS: Reginald Reyes is a pleasant 28 y.o. at 14w2d due on Estimated Date of Delivery: 02/19/25. Currently the patient has no complaints. The patient denies nausea, vomiting, abdominal pain, vaginal bleeding, SOB or chest pain. She is being followed at [facility] due to Type 2 DM. See [...] the morning., Disp: , Rfl: blood-glucose sensor (Edamam G7 SENSOR) device, Use to monitor blood [...] TOTALT4 , THYROIDAB No results found for: [id number] No results found for: CREATININE , BUN [...] by provider weekly until set up with draw tender 25 Minutes spent zcaw-cw-xoqk; more than 50% of time spent counseling and/or coordinating care with additional time for record review and communication to referring provider. GABBY Ledesma 08/23/24 1424 documented in this encounter [facility] 08-14-2024 History of Presen t illness Narrative [...] - Breakfast: breakfast sandwich Lunch: sandwich and/or ugandan yogurt with fruit and granola Dinner: meat [...] Past Medical History: Diagnosis Date Diabetes mellitus ([facility]) Hyperlipidemia Insulin resistance Prolonged QT syndrome SURGICAL [...] likely to fail compared to insulin. terminal block assembler data on children whose mothers took oral [...] hypoglycemia, and examples of treatment of hypoglycemia ( rule). Discussed her current diet and her [...] Delivery recommendations : - Recommend delivery at [id number] - Poorly controlled, vascular complications, or h/o [...] has follow up with her PCP or draw tender within 4 weeks after delivery - Recommend [...] prandial data. Will also get scheduled for [facility] MD appt to further discuss diabetes and cardiac history. Will get scheduled for anatomy survey I request she keep sending values to us weekly by e-mail to: [email or web address] or by fax to: [phone] Svetlana Jack PA-C Maternal- Medicine Office phone: [phone] Svetlana Jack PA-C 08/14/24 1246 Headache/epigastric pain/blurry [...] no Have you been seen here at [facility] in a previous ? no Recent ER visits or hospitalizations? no Bring blood sugar log or meter with you today? (Please bring them with you for every visit at [facility]) yes Flu vaccine (Jun-October)? no Any concerns that you would like me to mention to the provider today? 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 Name: Dr. Jori Delatorre City: City: [facility] Last time seen: 08/03/24 Last time seen: Last time seen: 06/08/2024 Eye Doctor Dentist Other Doctors Name: Name: [facility] Dentistry Name: City: City: [place] City: Last time seen: never Last time [...] demonstration Is there anything about your culture, jewish, or personal beliefs we need to know about to care for you: Other None Primary Language spoken: Luxembourgish [22] Primary Language for learning: Luxembourgish Are you currently in a relationship where you are physically hurt, threatened or made to fee afraid? [] Yes [] No [employer] Consultant needed? [] Yes [] No Marital status/Living [...] If yes, where: On thge following scale, [place] the number, which describes your current level [...] Past Medical History: Diagnosis Date Diabetes mellitus ([facility]) Hyperlipidemia Insulin resistance Prolonged QT syndrome OB [...] Educational Level bachelors degree Family issues stable Cultural/ethnic/moravian influences denies Exercise approved by MD? Yes Current Exercise program barre/volleyball Who prepares the meal pt Who purchase food at your home? pt Equipment use for cooking/food storage has all Food Assistance(Ex.WIC, Food [place]) declined Dining out Yes 3 times per week Appetite/Appetite changes decreased Weight History loosing with monjaro Do you have cats at home? Infant Feeding Plans Breast Feeding If you have cats, who cleans the litter box? Cravings/Aversions/Pica breakfast food Nutrition Assessment Worksheet: Week/Weekend Food Recall Breakfast Breakfast sandwich Or protein bar/ shake Snack Lunch Lunch meat and cheese stick Scottish yogurt w/ berries and granola or salad [...] time 30 minutes. documented in this encounter [facility] 08-03-2024 History of Presen t illness Narrative Subjective No chief complaint on file. Reginaldphylicia Reyes is a 28 y.o. at 11w3d [...] coma, without long-term current use of insulin ([facility]) Urine protein-negative Urine glucose-negative Continue vitamin. Labs reviewed. Patient states she has been watching her sugar closely but states I could do better. We did discuss the importance of maintaining good glucose control in and she does have an appt with [facility] on 08/14/24. Follow up in 4 weeks for a routine visit. documented in this encounter [facility] 07-10-2024 History of Presen t illness Narrative [...] reviewed this encounter and updated as appropriate: @RULESMARTLINK([id number],TOBYESPROV )@@RULESMARTLINK([id number],ALGYESPR OV)@@RULESM ARTLINK([id number],MEDYESPROV)@@RULE SMARTLINK([id number],PROBYESPROV)@@Edwin QUEVEDO Nam([id number],MHYESPROV)@@RULESDANIEL NK([id number],SHYESPROV)@@RULESCAMMY INK([id number], FHYESPROV)@@RULESANA([id number] ,SOHYESPROV)@ Objective Physical Exam weight: 246 lb, Pregravid BMI: 35.30 Expected Total Weight Gain: 11 lb-19 lb BP: 120/76 Labs Imaging Assessment/Plan Urine protein-negative Urine glucose-negative Continue vitamin. Labs reviewed. Order placed for anatomy scan at 20 weeks. Follow up in 4\ weeks for a routine visit. documented in this encounter [facility] 06-08-2024 History of Presen t illness Narrative Associated Problem(s): Type 2 diabetes mellitus without complication, without long-term current use of insulin ([facility]) During the appointment today all pertinent labs, [...] complication, without long-term current use of insulin ([facility]) During the appointment today all pertinent labs, [...] the patient today. documented in this encounter [facility] 05-03-2024 [facility]phone [facility] to clarify directions for letrozole 2.5mg. It has 2 different sets of directions one tab per day/2 tabs per day. Emanuel will take a verbal [phone]. Thank you. [facility] 05-03-2024 Miscellaneous Notes Emanuel from [employer] calling to clarify directions for letrozole 2.5mg. It has 2 different sets of directions one tab per day/2 tabs per day. Emanuel will take a verbal [phone]. Thank you. documented in this encounter [facility] Evaluation note Diagnosis Type 2 diabetes mellitus [...] of insulin (CMS/HCC) documented in this encounter [facility] HealthcareEvaluation [facility]* Diagnosis Type 2 diabetes [...] first trimester- Primary documented in this encounter [facility] HealthcareEvaluation note* Diagnosis Type 2 diabetes [...] of insulin (CMS/HCC) documented in this encounter [facility] HealthcareEvaluation note* Diagnosis Pre-existing type 2 diabetes mellitus in in first trimester documented in this encounter [facility] System[facility]* Diagnosis with type 2 diabetes mellitus in second trimester- Primary Long Q-T syndrome Long QT syndrome documented in this encounter [facility]* Diagnosis with type 2 diabetes mellitus in second trimester- Primary documented in this encounter [facility]* Diagnosis with type 2 diabetes mellitus in second trimester- Primary documented in this encounter 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 note* Diagnosis Type 2 diabetes mellitus [...] second trimester- Primary documented in this encounter [facility] HealthcareEvaluation note* Diagnosis Pre-existing type 2 diabetes mellitus during in second trimester- Primary Long Q-T syndrome Long QT syndrome documented in this encounter [facility] note* Diagnosis Pre-existing type 2 diabetes mellitus during in second trimester- Primary documented in this encounter [facility] note* Diagnosis Long Q-T syndrome- Primary Long QT syndrome Type 2 diabetes mellitus without complication, unspecified whether residential insulin use (CMS-HCC) documented in this encounter [facility] SystemEvaluation note* Diagnosis Type 2 diabetes mellitus [...] of insulin (CMS/HCC) documented in this encounter [facility] HealthcareEvaluation note* Diagnosis Type 2 diabetes [...] of insulin (CMS/HCC) documented in this encounter [facility] HealthcareEvaluation note* Diagnosis Pre-existing type 2 diabetes mellitus during in second trimester- Primary documented in this encounter [facility] note* Diagnosis Long Q-T syndrome- Primary Long QT syndrome Hx of prolonged Q-T interval on ECG documented in this encounter [facility] SystemEvaluation note* Diagnosis Type 2 diabetes mellitus [...] (GDM) requiring insulin documented in this encounter [facility] HealthcareEvaluation note* Diagnosis Type 2 diabetes [...] in second trimester documented in this encounter [facility] HealthcareEvaluation note* Diagnosis Type 2 diabetes [...] in third trimester documented in this encounter [facility] HealthcareEvaluation note* Diagnosis Type 2 diabetes [...] in third trimester documented in this encounter [facility] HealthcareEvaluation note* Diagnosis Type 2 diabetes [...] Type 2 diabetes mellitus treated with insulin ([facility]) documented in this encounter [facility]* Diagnosis Type 2 diabetes [...] Type 2 diabetes mellitus treated with insulin ([facility])- Primary Encounter for care of first , third trimester documented in this encounter [facility] HealthcareEvaluation note* Diagnosis Type 2 diabetes [...] in second trimester Type 2 diabetes mellitus without complication, without long-term current use of insulin- Primary with type 2 diabetes mellitus in third trimester with type 2 diabetes mellitus in third trimester documented in this encounter [facility]ructionsNot on filedocumented in this encounterPro[facility] SystemInstructionsNot on filedocumented in this encounterProGood [facility] SystemInstructionsNot on filedocumented in this encounterProGood [facility] SystemInstructionsNot on filedocumented in this encounterProGood [facility]ar[facility] System InstructionsNot on filedocumented in this encounterProGood Samaritan [facility] System InstructionsNot on filedocumented in this encounterProGood Samaritan Hospital System InstructionsNot on filedocumented in this encounterMer[facility] InstructionsNot on filedocumented in this encounterMer[facility] InstructionsNot on filedocumented in this encounterMer[facility] InstructionsNot on filedocumented in this encounterMer[facility] InstructionsNot on filedocumented in this encounterMer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 DATE CREATED AUTHOR AUTHOR'S ORGANIZ ATION 10/12/[address] [facility] DATE CREATED AUTHOR AUTHOR'S ORGANIZ ATION 11/09/2024 [facility] DATE CREATED AUTHOR AUTHOR'S ORGANIZ ATION 01/14/2025 [facility] dical Specialists EPIC Reason for Visit (unrecogniz ed section and content) Reason Comments Diabetes Reason Comments Type 2 Diabetes affecting Specialty Diagnoses / Procedures Referred By Michael felton Referred To Contact Maternal and Medicine Diagnoses Pre-existing type 2 diabetes mellitus in in first trimester Darío Banuelos APRN-SADIA [address] [place] [address] Phone: tel: fax: Maternal- Medicine at [facility] [address] [place] [address] Phone: tel: fax: Referral ID Status Reason Start Date Expiration Date Visits Requested Visits Authorized [id number] Pending Review Specialty Services Required 4 07/25/2025 1 1 Reason Comments T2DM Reason Comments Gestational Diabetes Reason Comments Type 2 Diabetes Reason Comments New Patient SPRAGGER REF - Long Q-T sy ndrome SEEN CARDIO A CHILD 10 + YRS AGO SCHED W/PT Specialty Diagnoses / Procedures Referred By Contac t Referred To Contact Cardiology Diagnoses Long Q-T syndrome Svetlana Jack, GIRISH [address] [facility] [address] [address] Phone: tel: fax: [facility] [address] [place] [address] Phone: tel: fax: Referral ID Status Reason Start Date Expiration Date Visits Requested Visits Authorized [id number] Pending Review Specialty Services Required 4 08/14/2025 1 1 Reason Comments New Patient SPRAGGER - ref by RRK for long QT syndrome - no labs/testing - appt sched w/ pt PATIENT IS 25 WEEKS Specialty Diagnoses / Procedures Referred By Contac t Referred To Contact Cardiology Diagnoses Long Q-T syndrome Aye Saucedo MD [address] [place] [address] Phone: tel: fax: [facility] [address] [place] [address] [place] [address] Phone: tel: fax: Referral ID Status Reason Start Date Expiration Date Visits Requested Visits Authorized [id number] Pending Review Specialty Services Required 09/19/2024 09/19/2025 1 1 Reason Comments Consult Patient is a Wanda Donnell ro referral to Dr. Sam for Type II diabetes insulin required. Specialty Diagnoses / Procedures Referred By Contac t Referred To Contact Obstetrics and Gynecology Diagnoses with type 2 diabetes mellitus in third trimester Procedures RI OFFICE/OUTPATIENT NEW HIGH MDM 60 MINUTES Darío Banuelos CNM [address] [place] [address] Phone: tel: fax: Henry Sam, [address] [place] [address] Phone: tel: fax: Referral ID Status Reason Start Date Expiration Date V isits Requested Visits Authorized [id number] Closed Specialty Services Required 12/20/2024 06/18/2025 1 1 Care Teams (unrecognized sec tion and content) Pot Annealer Relationship Specialty Start Date End Date Unallocated, Noms ProviderMD [facility] [place] [address] PCP - General 04/16/23 Awilda Delatorre DO [address] [facility] [address] [place] [address] PCP - Gulf Commercial 06/16/23 Darío Banuelos CNM [address] [place] [address] Obstetrics and Gynecology 02/10/23 Pot Annealer Relationship Specialty Start Date End Date Unallocated, Danay Biggs MD [address] [place] [address] PCP - General 04/16/23 Awilda Delatorre DO [address] [facility] [address] [place] [address] PCP - [employer] 06/16/23 Darío Banuelos CNM [address] [place] [address] Obstetrics and Gynecology 02/10/23 Pot Annealer Relationship Specialty Start Date End Date Unallocated, Noms Provider, [address] [place] [address] PCP - General 04/16/23 Awilda Delatorre, DO [address] [place] [address] PCP - [employer] 06/16/23 Darío Banuelos CNM [address] [facility] [address] Obstetrics and Gynecology 02/10/23 Pot Annealer Relationship Specialty Start Date End Date Unallocated, Danay ProviderMD [address] [facility] [address] PCP - General 04/16/23 Awilda Delatorre, DO [address] [place] [address] PCP - [employer] 06/16/23 Darío Banuelos CNM [address] [place] [address] Obstetrics and Gynecology 02/10/23 Pot Annealer Relationship Specialty Start Date End Date Darío Banuelos APRN-CNM [address] [place] [address] PCP - General Nurse Automotive Buyer 04/15/18 Pot Annealer Relationship Specialty Start Date End Date Darío Banuelos APRN-CNM [address] [place] [address] PCP - General Nurse Automotive Buyer 04/15/18 Pot Annealer Relationship Specialty Start Date End Date Darío Banuelos APRN-CNM [address] [place] [address] PCP - General Nurse Automotive Buyer 04/15/18 Pot Annealer Relationship Specialty Start Date End Date Darío Banuelos APRN-SADIA [address] [place] [address] PCP - General Nurse Automotive Buyer 04/15/18 Pot Annealer Relationship Specialty Start Date End Date Darío Banuelos APRN-[facility] [address] [place] [address] PCP - General Nurse Automotive Buyer 04/15/18 Pot Annealer Relationship Specialty Start Date End Date Unallocated, Noms Dian, [address] [place] [address] PCP - General 04/16/23 Awilda Delatorre DO [address] [place] [address] PCP - [employer] 06/16/23 Darío Banuelos CNM [address] [place] [address] Obstetrics and Gynecology 02/10/23 Pot Annealer Relationship Specialty Start Date End Date Darío Banuelos APRN-SADIA [address] [place] [address] PCP - General Nurse Automotive Buyer 04/15/18 Pot Annealer Relationship Specialty Start Date End Date Darío Banuelos APRN-SADIA [address] [place] [address] PCP - General Nurse Automotive Buyer 04/15/18 Pot Annealer Relationship Specialty Start Date End Date Darío Banuelos APRN-CATHIE [address] [facility] [place] [address] PCP - General Nurse Automotive Buyer 04/15/18 Pot Annealer Relationship Specialty Start Date End Date Darío Banuelos B[facility] [address] [facility] [place] [address] PCP - General Nurse Automotive Buyer 04/15/18 Pot Annealer Relationship Specialty Start Date End Date Unallocated, Danay Biggs MD [address] [facility] [place] [address] PCP - General 04/16/23 Awilda Delatorre, DO [address] [place] [address] PCP - [employer] 06/16/23 Darío Banuelos CNM [address] [place] [facility] [place] [place] [address] Obstetrics and Gynecology 02/10/23 Pot Annealer Relationship Specialty Start Date End Date Unallocated, Danay Biggs MD [address] [facility] [place] [address] PCP - General 04/16/23 Awilda Delatorre, DO [address] [facility] [address] [place] [address] PCP - Gulf [employer] 06/16/23 Darío Banuelos CNM [address] [place] [place] [address] Obstetrics and Gynecology 02/10/23 Pot Annealer Relationship Specialty Start Date End Date Unallocated, MD [address] [place] [place] [address] PCP - General 04/16/23 Awilda Delatorre, DO [address] [place] [facility] [address] [place] [address] PCP - Gulf Commercial 06/16/23 Darío Banuelos CNM [address] [place] [address] Obstetrics and Gynecology 02/10/23 Pot Annealer Relationship Specialty Start Date End Date Darío Banuelos APRNSADIA [address] [place] [address] PCP - General Nurse Automotive Buyer 04/15/18 Pot Annealer Relationship Specialty Start Date End Date Darío Banuelos APRNCATHIE [address] [place] [address] PCP - General Nurse Automotive Buyer 04/15/18 Pot Annealer Relationship Specialty Start Date End Date Unallocated, Noms ProviderMD [address] [place] [address] PCP - General 04/16/23 Awilda Delatorre, [address] [place] [facility] [address] [place] [address] PCP - [employer] Commercial 06/16/23 Darío Banuelos CN [address] [place] [address] Obstetrics and Gynecology 02/10/23 Pot Annealer Relationship Specialty Start Date End Date Unallocated, Danay Biggs MD [address] [place] [address] PCP - General 04/16/23 Awilda Delatorre, DO [address] [place] [address] [place] [address] PCP - Gulf Commercial 06/16/23 Darío Banuelos CNM [address] [place] [facility] [place] [address] Obstetrics and Gynecology 02/10/23 Pot Annealer Relationship Specialty Start Date End Date Unallocated, Danay Biggs MD [address] [place] [address] PCP - General 04/16/23 Awilda Delatorre, DO [address] [place] [address] PCP - Gulf Commercial 06/16/23 Darío Banuelos CNM [address] [place] [facility] [place] [address] Obstetrics and Gynecology 02/10/23 Pot Annealer Relationship Specialty Start Date End Date Unallocated, Danay Biggs MD [address] [place] [address] PCP - General 04/16/23 Darío Banuelos CNM [address] [place] [place] [address] Obstetrics and Gynecology 02/10/23 Pot Annealer Relationship Specialty Start Date End Date Unallocated, Danay Biggs MD [address] [place] [address] PCP - General 04/16/23 Darío Banuelos CNM [address] [place] [place] [address] Obstetrics and Gynecology 02/10/23 Pot Annealer Relationship Specialty Start Date End Date Unallocated, Danay Biggs MD [address] [facility] [place] [address] PCP - General 04/16/23 Darío Banuelos CNM [address] [facility] [address] Obstetrics and Gynecology 02/10/23 Pot Annealer Relationship Specialty Start Date End Date Unallocated, Danay Biggs MD [address] [facility] [place] [address] PCP - General 04/16/23 Darío Banuelos CNM [address] [facility] [place] [address] Obstetrics and Gynecology 02/10/23 Pot Annealer Relationship Specialty Start Date End Date Unallocated, Danay Biggs MD [address] [facility] [place] [address] PCP - General 04/16/23 Darío Banuelos CNM [address] [facility] [place] [address] Obstetrics and Gynecology 02/10/23 Pot Annealer Relationship Specialty Start Date End Date Unallocated, Danay Biggs MD [address] [facility] [address] PCP - General 04/16/23 Darío Banuelos CNM [address] [facility] [place] [address] Obstetrics and Gynecology 02/10/23 Pot Annealer Relationship Specialty Start Date End Date Unallocated, MD [place] [place] [place] [address] PCP - General 04/16/23 Darío Banuelos CNM [address] [place] [address] Obstetrics and Gynecology 02/10/23 Pot Annealer Relationship Specialty Start Date End Date Unallocated, Noms Provider, [place] [address] PCP - General 04/16/23 Darío Banuelos CNM [address] [place] [address] Obstetrics and Gynecology 02/10/23 FOR RECORDS PERTAINING [...] BE BASED ON THE PRIMARY CLINICAL RECORDS. [facility] [employer] [facility]. provides no warranty or guarantee of the accuracy or completeness of information in this document.
[2025-01-16 07:42] VITALS: BP 121/62; PULSE 80
== END 2025-01-16 07:48 | disposition home or self-care (01) ==
LOC: FBCO 07:07 → FBC 07:10 → FBCO 07:11 → FBC 07:15
PROVIDERS: Visit Provider Obstetrics & Gynecology
DX: O24.313 Unspecified pre-existing diabetes mellitus in pregnancy, third trimester (principal)
CPT/HCPCS: 59025

== ENCOUNTER 2025-01-19 07:02 | Outpatient (OUT) | payer BC, SELFPAY ==
--- OUTSIDE RECORDS SUMMARY | 2025-01-09 16:00 | XMS_ITS | Encounter Summary ---
Author Organization [facility] Address [address] [place] [address] Care Team Providers Care Electrical Equipment Assembler Name Role Phone Flaquita Banuelos CN Unavailable [phone] Unallocated, Noms Provider MD Primary Care Provi mart Encounter Details Date Type Department Care Team (Latest Contact Info) Description 01/09/2025 4:00 PM EDT Routine [facility] [address] [place] [address] Flaquita Banuelos, CNM [address] [place], [place] [phone] 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 mellitus treated with insulin ([facility]) (Primary Dx); Encounter for care of first [...] any clubs o r organizations such as advent groups, unions, fraternal or athletic groups, or [...] Patient Health Questionnaire-2 Score 0 12/07/2024 [facility] [place] of Occupat ional Health - Occupational Stress [...] any time in the past 12 m [facility], were you homeless or living in [...] Care Team (Late st Contact Info) Description 01/22/2025 4:30 PM EDT Routine [facility] OB [address] [facility] [address] Flaquita Banuelos CN [address] [place] [address] 01/29/2025 4:30 PM EDT Routine [facility] [address] [facility] [place] [address] Flaquita Banuelos CN [address] [place] [address] 02/06/2025 4:30 PM EDT Routine [facility] [address] [facility] [place] [address] Flaquita Banuelos CN [address] [place] [address] 02/12/2025 4:30 PM EDT Routine [facility] [address] [facility] [place] [address] Flaqutia Banuelos CNM [address] [place] [address] 04/17/2025 10:30 AM EDT Office Visit [facility] [address] [place] [address] Awilda Crenshaw, [address] [place] [address] documented as of this encounter Visit Diagnoses Diagnosis 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 mellitus treated with insulin ([facility])- Primary Encounter for care of first , third trimester documented in this encounter Care Teams Electrical Equipment Assembler Relationship Specialty Start Date End Date Unallocated, Noms Provider, [address] [place], [place] [id number] PCP - General 04/16/23 Flaquita Banuelos CNM [address] [place] [address] Obstetrics and Gynecology 02/10/23 documented as of this encounter
--- OUTSIDE RECORDS SUMMARY | 2025-01-15 16:30 | XMS_ITS | Encounter Summary ---
Author Organization [facility] Address [address] [place] [address] Care Team Providers Care Driller And Reamer Name Role Phone Flaquita Banuelos CN Unavailable [phone] Unallocated, Noms Provider Primary Care Provi mart Encounter Details Date Type Department Care Team (Latest Contact Info) Description 01/15/2025 4:30 PM EDT Routine [facility] FNR OB [address] [place] [address] Flaquita Banuelos, CNM [address] [place], [place] [address] 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 mellitus without complication, without [...] How often do you attend chur or yazidi services? More than 4 times per year 06/07/2024 Do you belong to any clubs o r organizations such as sabianist groups, unions, fraternal or athletic groups, or [...] Recorded Patient Health Questionnaire-2 Score 0 12/07/2024 [facility] [place] of Occupat ional Health - Occupational Stress [...] time in the past 12 m [facility], were you homeless or living in a [...] PM EDT Routine [facility] FNR OB [address] [place] [address] Flaquita Banuelos CNM [address] [place], [place] [id number] 01/29/2025 4:30 PM EDT Routine [facility] FNR OB [address] [place] [address] Flaquita Banueols CNM [address] [place] [address] 02/06/2025 4:30 PM EDT Routine [facility] FNR OB [address] [facility] [place] [address] Flaquita Banuelos, CNM [address] [place] [address] 02/12/2025 4:30 PM EDT Routine [facility] FNR OB [address] [facility] [place] [address] Flaquita Banuelos, CNM [address] [place] [address] 04/17/2025 10:30 AM EDT Office Visit [facility] SWS FM [address] [place] [address] [place] [address] Awilda Crenshaw, [address] [place] [address] [place] [address] documented as of this encounter Visit Diagnoses Diagnosis 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 mellitus without complication, without long-term current use of insulin- Primary with type 2 diabetes mellitus in third trimester documented in this encounter Care Teams Driller And Reamer Relationship Specialty Start Date End Date Unallocated, Noms Provider, [address] [place] [address] PCP - General 04/16/23 Flaquita Banuelos CNM [address] [place] [address] Obstetrics and Gynecology 02/10/23 documented as of this encounter
--- OUTSIDE RECORDS SUMMARY | 2025-01-18 08:30 | XMS_ITS | Encounter Summary ---
Author Organization [facility] Address [address] [place] [address] Care Team Providers Care Instructional Specialist Name Role Phone Flaquita Banuelos CNM Unavailable [phone] Unallocated, Noms Provider Primary Care Provi mart Reason for Visit * Reason Comments Diabetes Encounter Details Date Type Department Care Team (Late st Contact Info) Description 01/18/2025 8:30 AM EDT Office Visit [facility] FM [address] [facility] [address] [place] [address] Awilda Crenshaw, DO [address] [facility] [address] [place] [address] with type 2 diabetes mellitus in third [...] week 06/07/2024 How often do you attend [facility] or restoration services? More than 4 times per year 06/07/2024 Do you belong to any clubs o r organizations such as gnosticist groups, unions, fraternal or athletic groups, or [...] Date Recorded Patient Health Questionnaire-2 Score 0 01/18/2025 [facility] [place] of Occupat ional Health - Occupational Stress [...] any time in the past 12 m [facility], were you homeless or living in [...] Sign Reading Time Taken Comments Blood Pressure 118/66 01/18/2025 8:28 AM EDT Pulse 88 01/18/2025 8:28 AM EDT Temperature 36.7 C (98 F) 01/18/2025 8:28 AM EDT Respiratory Rate - - Oxygen Saturation 98% 01/18/2025 8:28 AM EDT Inhaled Oxygen Concentration - - Weight 109 kg (240 lb) 01/18/2025 8:28 AM EDT Height 177.8 cm (5' 10 ) 01/18/2025 8:28 AM EDT Body Mass Index 34.44 01/18/2025 8:28 AM EDT documented in this encounter Functional Status * Over the past 2 weeks, how often have you been bothered by any of the following problems? Question Answer Date of Assessment Author Little interest or pleasure in doing things Not at all 01/18/2025 8:29 AM EDT Abby Herrera LPN Feeling down, depressed, or hopeless Not at all 01/18/2025 8:29 AM EDT Abby Herrera LPN Patient Health Questionnaire-2 Score 0 01/18/2025 8:29 AM EDT Ailin Herrera LPN documented as of this encounter Progress Notes * Awilda Crenshaw DO - 01/18/2025 10:17 AM EDTAssociated Problem(s): with type 2 diabetes mellitus in third trimester Continue to check fasting and PP readings with goals of fasting < 95 mg/dl, 1hr < 140 mg/dl, 2 hr < 120 mg/dl. She is to call with any problems or not improving. Send BG readings on a weeklybasis. When Kellie Reyes goes to the hospital for delivery, they are to stop insulin and stay on metformin. If insulin is needed during delivery, it will be given through IV insulin and monitored by their OB. She should not need insulin after delivery. She is to check her bg daily after delivery and stay on metformin. If bg running high after delivery will start a once a day basal insulin while she is nursing. * Awilda Crenshaw DO - 01/18/2025 8:30 AM EDT Images from the original note were not [...] CGM- LINKED- on a daily basis. Bg runnning smooth and in range most of the day. Will dip down before dinner and rise after dinner sometimes. Last A1c: 5.7 (10/09/24) Last eye exam: Due Current concerns include: Pt is 35 weeks and 3 days gestation. Plans on being induced at 39 weeks if she doesn't go into labor before then. Bg levels: similar to last visit. Diet: limiting carbs, sugars and increase protein Drinks: water, sugar free tea, diet pop Exercise: walking on occasion Hypoglycemia: none SUBJECTIVE: PROBLEM LIST SOCIAL ALLERGIES: [...] use: Never No Known Allergies Synopsis SmartLink 01/18/2025 12/07/2024 00:00 Antidiabetic medications Insulin Lispro 5 units small meals and 8 units large meals (max daily 50 units) (100 UNIT/ML SOPN) -Discontinued (Dose adjustm) Patient taking differently: 5 units small meals and 10 units large meals (max daily 50 units) as of12/07/2024 8:25 AM Insulin Lispro 1-2 units breakfast, 5-12 units lunch/dinner (max daily 50 units) (100 UNIT/ML SOPN)1-2 units breakfast, 5-12 units lunch/dinner (max daily 50 units) (100 UNIT/ML SOPN) Insulin NPH Human (Isophane) 10 units am and 20 units pm (100 UNIT/ML SUPN) - Discontinued (Dose adjustm) Patient taking differently: 10 units am and 17 units pm as of 12/07/2024 8:25 AM Insulin NPH Human (Isophane) 10 units am and 17 units pm (100 UNIT/ML SUPN)- Discontinued (Dose adjustm) 10 units am and 17 units pm (100 UNIT/ML SUPN) Insulin NPH Human (Isophane) 8 units am and 14 units pm (100 UNIT/ML SUPN) metFORMIN HCl 1/2 tablet in the am and 1 tablet in the evening (1000 MG TABS) 1/2 tablet in the am and 1 tablet in the evening (1000 MG TABS) Labs [facility] HEMOGLOBIN A1C/HEMOGLOBIN.TOTAL:MFR:PT:BLD:QN: 6.1 Outpatient prescription Medication marked as long-term Patient taking a medication differently The ASCVD Risk score (Edilson BRAXTON, et [...] Negative for polydipsia, polyphagia and polyuria. OBJECTIVE: 01/18/2025 8:28 AM 01/15/2025 4:36 PM 01/09/2025 4:34 PM Vitals BMI 34.44 kg/m2 34.87 kg/m2 34.72 kg/m2 Systolic 118 120 120 Diastolic 66 78 74 Heart Rate 88 Temp 98 ??F Height (in) 5' 10 Weight (lb) 240 243 242 Visit Report Report Physical Exam Constitutional: General: [...] type 2 diabetes mellitus in third trimester Continue to check fasting and PP readings with goals of fasting < 95 mg/dl, 1hr < 140 mg/dl, 2 hr < 120 mg/dl. She is to call with any problems or not improving. Send BG readings on a weeklybasis. When Kellie Reyes goes to the hospital for delivery, they are to stop insulin and stay on metformin. If insulin is needed during delivery, it will be given through IV insulin and monitored by their OB. She should not need insulin after delivery. She is to check her bg daily after delivery and stay on metformin. If bg running high after delivery will start a once a day basal insulin while she is nursing. Relevant Orders POCT glycosylated hemoglobin (Hb A1C) docked device (Completed) Follow up in about 3 months (around 04/20/2025) for Recheck. Patient's Medications New Prescriptions No [...] test BLOOD SUGAR change EVERY TEN days DOCUSATE SODIUM (COLACE) 100 MG CAPSULE Take 1 capsule (100 mg) by mouth in the morning and 1 capsule (100 mg) before bedtime. FERROUS SULFATE (FE TABS) 325 (65 FE) MG EC TABLET Take 1 tablet (325 mg) by mouth in the morning and 1 tablet (325 mg) before bedtime. Take before meals. Do not crush, chew, or split. INSULIN LISPRO (HUMALOG KWIKPEN) 100 UNIT/ML INJECTION 1-2 units breakfast, 5-12 units lunch/dinner(max daily 50 units) INSULIN PEN NEEDLE (B-D UF III MINI PEN NEEDLES) 31G X 5 MM MISC USE DIRECTED FIVE TIMES DAILY METFORMIN (GLUCOPHAGE) 1000 MG TABLET 1/2 tablet in the am and 1 tablet in the evening Modified Medications Modified Medication Previous Medication INSULIN NPH, ISOPHANE, (HUMULIN N KWIKPEN) 100 UNIT/ML INJECTION insulin NPH, Isophane, (HumuLIN N KWIKPEN) 100 UNIT/ML injection 8 units am and 14 units pm 10 units am and 17 units pm Discontinued Medications No medications on file I have reviewed and reconciled the history and medication list with the patient today. documented in this encounter Plan of Treatment Upcoming Encounters Date Type Department Care Team (Late st Contact Info) Description 01/22/2025 4:30 PM EDT Routine [facility] [address] [place] [address] Flaquita Banuelos, CNM [address] [place] [address] 01/29/2025 4:30 PM EDT Routine [facility] [address] [place] [address] Flaquita Banuelos, CNM [address] [place] [address] 02/06/2025 4:30 PM EDT Routine [facility] [address] [place] [address] Flaquita Banuelos, CNM [address] [place] [address] 02/12/2025 4:30 PM EDT Routine [facility] [address] [place] [address] Flaquita Banuelos, CN [address] [place] [address] 04/17/2025 10:30 AM EDT Office Visit [facility] [address] [place] [address] Awilda Crenshaw DO [address] [place] [address] documented as of this encounter Procedures Procedure Name Priority Date/Time Associated Diagnosis Comments POCT GLYCOSYLATED HEMOGLOBIN (HGB A1C) Routine 01/18/2025 8:38 AM EDT with type 2 diabetes mellitus in third trimester documented in this encounter Results * POCT glycosylated hemoglobin (Hb A1C) docked device (01/18/2025 8:38 AM EDT) Hemoglobin A1C 6.1 Blood Venous blood specimen / Unknown 01/18/2025 8:38 AM EDT Awilda Crenshaw DO POINT OF CARE TEST ENTER/E DIT ORDERABLES Final Result documented in this encounter Visit Diagnoses Diagnosis with type 2 diabetes mellitus in third trimester documented in this encounter Care Teams Instructional Specialist Relationship Specialty Start Date End Date Unallocated, Noms Provider, MD Bri [address] [place], [place] [address] PCP - General 04/16/23 Flaquita Banuelos CNM [address] [place] [address] Obstetrics and Gynecology 02/10/23 documented as of this encounter
--- NOTE | 2025-01-19 | US_ITS ---
[place] [id number] Patient Name: REGINALD SMALL MRN: [id number] date: 1995 Sex: F Assigned Patient Location: [facility] Current Patient Location: [facility] Accession/Order Number: [id number] Exam Date: 01/19/2025 07:35 Report Date: 01/19/2025 07:37 At the request of: NICK BOWEN DO Procedure: US OB BPP w non-stress US OB BPP w non-stress 01/19/2025 7:26 AM SIGNS AND SYMPTOMS: ^DIABETES MELLITUS DURING O24.113 PROTOCOL: Transabdominal sonographic imaging of the gravid uterus COMPARISON: None FINDINGS: Estimated gestational age: 35 weeks and 4 days heart rate: 130 bpm. Amniotic fluid index: 15.92 cm. Biophysical profile: movement: 2/2 tone: 2/2 breathing movements: 2/2. Amniotic fluid volume: 2/2 US/US OB BPP w non-stress IMPRESSION: Biophysical profile score: 8/8 Amniotic fluid index: 15.92 cm Impression dictated by: Zak Roberson M.D. 01/19/2025 7:37 AM Dictation Location: [place] [address] Electronically authenticated by: [id number] Y Date: 01/19/2025 07:37
--- OUTSIDE RECORDS SUMMARY | 2025-01-19 07:04 | XMS_ITS | Encounter Summary ---
Author Organization [facility] Address [address] [place] [address] Care Team Providers Care Egg Candler Name Role Phone Flaquita Banuelos CNM Unavailable [phone] Unallocated, Noms Provider Primary Care Provi mart Awilda Crenshaw DO Unavailable [phone] Encounter Details Date Type Department Care Team (Late st Contact Info) Description 10/20/2024 Abstract [facility] [address] [place] [address] Awilda Crenshaw, DO [address] [facility] [address] [place] [address] Social History Tobacco Use Types Packs/Day Years [...] Recorded Patient Health Questionnaire-2 Score 0 10/09/2024 [facility] [place] of Occupat ional Health - Occupational Stress [...] any time in the past 12 m [facility], were you homeless or living [...] OB [address] [place] [address] Lin Banuelose Nadine, CNM [address] [place] [address] 01/29/2025 4:30 PM EDT Routine [facility] OB [address] [facility] [place] [address] Flaquita Banuelos, CNM [address] [place] [address] 02/06/2025 4:30 PM EDT Routine [facility] [address] [facility] [place] [address] Flaquita Banuelos, CNM [address] [place] [address] 02/12/2025 4:30 PM EDT Routine [facility] [address] [facility] [place] [address] Flaquita Banuelos, CN [address] [facility] [address] 04/17/2025 10:30 AM EDT Office Visit [facility] [address] [place] [address] Awilda Crenshaw DO [address] [place] [address] documented as of this encounter Visit Diagnoses Not on filedocumented in this encounter Care Teams Egg Candler Relationship Specialty Start Date End Date Unallocated, Noms Provider, [place] [address] PCP - General 04/16/23 Awilda Crenshaw, DO [address] [place] [address] PCP - [employer] Commercial 06/16/23 Flaquita Banuelos CNM [address] [place] [address] Obstetrics and Gynecology 02/10/23 documented as of this encounter
--- OUTSIDE RECORDS SUMMARY | 2025-01-19 07:04 | XMS_ITS | Encounter Summary ---
Author Organization [facility] Address [address] [facility] [address] [facility] [place] [address] Care Team Providers Care Auto Battery Builder Name Role Phone Flaquita Banuelos CNM Unavailable [phone] Unallocated, Noms Provider Primary Care Provi mart Encounter Details Date Type Department Care Team (Late st Contact Info) Description 11/30/2024 Abstract [facility] [address] [place] [address] Awilda Crenshaw, DO [address] [place] [address] Social History Tobacco Use Types Packs/Day Years [...] How often do you attend chur or adventism services? More than 4 times per year 06/07/2024 Do you belong to any clubs o r organizations such as latter day groups, unions, fraternal or athletic groups, or [...] Recorded Patient Health Questionnaire-2 Score 0 10/09/2024 [facility] of Occupat ional [...] any time in the past 12 m [facility], were you homeless or living in [...] PM EDT Routine [facility] OB [address] [place] [address] Flaquita Banuelos, CNM [address] [place] [address] 01/29/2025 4:30 PM EDT Routine [facility] OB [address] [place] [address] Flaquita Banuelos, CNM [address] [place] [address] 02/06/2025 4:30 PM EDT Routine [facility] OB [address] [place] [address] Flaquita Banuelos, CNM [address] [place] [address] 02/12/2025 4:30 PM EDT Routine [facility] OB [address] [place] [address] Flaquita Banuelos, CNM [address] [place] [address] 04/17/2025 10:30 AM EDT Office Visit [facility] [address] [place] [address] Awilda Crenshaw, DO [address] [place] [address] documented as of this encounter Visit Diagnoses Not on filedocumented in this encounter Care Teams Auto Battery Builder Relationship Specialty Start Date End Date Unallocated, Noms Provider, [address] [place] [address] PCP - General 04/16/23 Flaquita Banuelos CNM [facility] [place] [address] Obstetrics and Gynecology 02/10/23 documented as of this encounter
--- OUTSIDE RECORDS SUMMARY | 2025-01-19 07:04 | XMS_ITS | Encounter Summary ---
Author Organization [facility] Address [address] [place] [address] Care Team Providers Care Machine Pie Maker Name Role Phone Vin Flaquita Mccoy CNM Unavailable [phone] Unallocated, Noms Provider Primary Care Provi mart Encounter Details Date Type Department Care Team (Late st Contact Info) Description 01/12/2025 Clinisync Result Encounter N[facility]S External Department Unsolicited Nick Sam, DO [address] [facility] [place] [address] Social History Tobacco Use Types Packs/Day Years [...] any clubs o r organizations such as worship groups, unions, fraternal or athletic groups, or [...] Recorded Patient Health Questionnaire-2 Score 0 12/07/2024 [facility] of Occupat ional Health - Occupational Stress [...] PM EDT Routine [facility] FNR OB [address] [place] [address] Flaquita Banuelos, CNM [address] [place] [address] 01/29/2025 4:30 PM EDT Routine [facility] OB [address] [facility] [place] [address] Flaquita Banuelos, CNM [address] [place] [address] 02/06/2025 4:30 PM EDT Routine [facility] OB [address] [facility] [place] [address] Flaquita Banuelos, CNM [address] [place] [address] 02/12/2025 4:30 PM EDT Routine [facility] OB [address] [facility] [place] [address] Flaquita Banuelos, CN [address] [place] [address] 04/17/2025 10:30 AM EDT Office Visit [facility] S[facility] FM [address] [place] [address] Awilda Crenshaw, DO [address] [place] [address] documented as of this encounter Procedures Procedure Name Priority Date/Time Associated Diagnosis Comments US OB GROWTH 01/12/2025 12:00 PM EDT documented in this encounter Results * US OB GROWTH (01/12/2025 12:00 PM EDT) Anatomical Region Laterality Modality Other 01/12/2025 12:0 0 PM EDT Narrative 01/12/2025 12:03 PM EDT The [address] [address] Ultrasound Report Signed Patient: REGINALD REYES MR#: [id number] : 1995 Acct:[id number] Age/Sex: 29 / F ADM Date: 01/12/25 Loc: US Attending Dr: Nick Sam D.O. Ordering Physician: Nick Sam D.O. Date of Service: 01/12/25 Procedure(s): US OB growth Accession Number(s): [id number] cc: Nick Sam D.O.; Physician,Non-Staff [place] [address] Patient Name: REGINALD REYES MRN: [id number] date: 1995 Sex: F Assigned Patient Location: [facility] Current Patient Location: [facility] Accession/Order Number: [id number] Exam Date: 01/12/2025 11:54 Report Date: 01/12/2025 [...] Mcleod M.D. 01/12/2025 12:00 PM Dictation Location: [place] [address] Electronically authenticated by: [id number] Y Date: 01/12/2025 12:00 Dictated By: Elle Mcleod M.D. Signed By: 01/12/25 1203 DD/ 1200 TD/TT: Dry Drug Worker: Procedure Note Radiology, Radiologist, - 01/12/2025 [place] [address] Ultrasound Report Signed Patient: REGINALD REYES MMR#: [id number] : 1995Acct:[id number] Age/Sex: 29 FADM Date: 01/12/25 Loc: US Attending Dr: Nick Sam D.O. Ordering Physician: Nick Sam D.O. Date of Service: 01/12/25 Procedure(s): US OB growth Accession Number(s): [id number] cc: Nick Sam D.O.; Physician,Non-Staff Magaly The [place] [address] Patient Name: REGINALD REYES MRN: [id number] date: 1995 Sex: F Assigned Patient Location: [facility] Current Patient Location: [facility] Accession/Order Number: [id number] Exam Date: 01/12/2025 11:54 Report Date: 01/12/2025 [...] Mcleod M.D. 01/12/2025 12:00 PM Dictation Location: [place] [address] Electronically authenticated by: [id number] Y Date: 512:00 Dictated By: Elle Mcleod M.D. Signed By:01/12/25 1203 DD/ 1200 TD/TT: Dry Drug Worker: us Nick Flaco DO [facility] Final Result documented in this encounter Visit Diagnoses Not on filedocumented in this encounter Care Teams Machine Pie Maker Relationship Specialty Start Date End Date Unallocated, Noms Provider, [address] [place] [address] PCP - General 04/16/23 Flaquita Banuelos CNM [address] [place] [address] Obstetrics and Gynecology 02/10/23 documented as of this encounter
--- OUTSIDE RECORDS SUMMARY | 2025-01-19 07:04 | XMS_ITS | Encounter Summary ---
Author Organization [facility] Address [address] [place] [address] Care Team Providers Care Bed And Breakfast Cook Name Role Phone Flaquita Banuelos CNM Unavailable [phone] Unallocated, Noms Provider Primary Care Provi mart Awilda Crenshaw DO Unavailable [phone] Encounter Details Date Type Department Care Team (Late st Contact Info) Description 11/03/2024 Abstract [facility] [address] [place] [address] Awilda Crenshaw, DO [address] [facility] [address] [place] [address] Social History Tobacco Use Types Packs/Day Years [...] Recorded Patient Health Questionnaire-2 Score 0 10/09/2024 [facility] [place] of Occupat ional Health - Occupational Stress [...] in the past 12 m [facility], were you homeless or living [...] OB [address] [place] [address] Lin Banuelose Nadine, CNM [address] [place] [address] 01/29/2025 4:30 PM EDT Routine [facility]NR OB [address] [place] [address] Flaquita Banuelos, CNM [address] [place] [address] 02/06/2025 4:30 PM EDT Routine [facility] OB [address] [place] [address] Flaquita Banuelos, CNM [address] [place] [address] 02/12/2025 4:30 PM EDT Routine [facility] OB [address] [place] [address] Flaquita Banuelos, CN [address] [place] [address] 04/17/2025 10:30 AM EDT Office Visit [facility] [address] [place] [address] Awilda Crenshaw DO [address] [place] [address] documented as of this encounter Visit Diagnoses Not on filedocumented in this encounter Care Teams Bed And Breakfast Cook Relationship Specialty Start Date End Date Unallocated, Noms Provider, [place] [address] PCP - General 04/16/23 Awilda Crenshaw, DO [address] [place] [address] PCP - [place] [employer] 06/16/23 Flaquita Banuelos CNM [address] [place] [address] Obstetrics and Gynecology 02/10/23 documented as of this encounter
--- OUTSIDE RECORDS SUMMARY | 2025-01-19 07:04 | XMS_ITS | Encounter Summary ---
Author Organization [facility] tem Address [id number] [address] [place] [address] Care Team Providers Care Waste Collection Driver Name Role Phone Flaquita Banuelos BAMBI-CNM Primary Care Provider [phone] Encounter Details Date Type Department Care Team (Late st Contact Info) Description 09/11/2024 Orders Only Maternal- Medicine at [facility] [address] [place] [address] Yudelka Randall, SABRINA with type 2 diabetes [...] BLOOD ORDERABLES Final Result Performing Organization Address [facility] Co de Phone Number MANUALLY TRANSCRIBED RESULTS * Protein creat ratio (08/30/2024) 08/30/2024 us Svetlana E Lavoy PA-C URINE ORDERABLES Final Resu lt Performing Organization Address [facility] Co de Phone Number SUNQUEST * Thyroid profile includes TSH FT4 (08/30/2024) 08/30/2024 us Svetlana E Lavoy PA-C LAB BLOOD ORDERABLES Final Result Performing Organization Address [facility] Phone Number MANUALLY TRANSCRIBED RESULTS documented in this encounter Visit Diagnoses Diagnosis with type 2 diabetes mellitus in second trimester documented in this encounter Additional Health Concerns Assessment Noted Time PHQ-9 Depression Total Score: 0 03/03/20 17 3:00 PM EDT documented as of this encounter Care Teams Waste Collection Driver Relationship Specialty Start Date End Date Flaquita Banuelos APRN-CNM [address] [place] [address] PCP - General Nurse Adjunct Business Instructor 04/15/18 documented as of this encounter
--- OUTSIDE RECORDS SUMMARY | 2025-01-19 07:04 | XMS_ITS | Encounter Summary ---
Author Organization [facility] Address [address] [place] [address] Care Team Providers Care Manager Of Broadcast Content Name Role Phone Flaquita Banuelos CN Unavailable [phone] Unallocated, Noms Provider Primary Care Provi mart Encounter Details Date Type Department Care Team (Late st Contact Info) Description 01/05/2025 Orders Only [facility]NR OB [address] [place] [address] Flaquita Banuelos, CNM [address] [place], [place] [address] with type 2 diabetes mellitus in third [...] any clubs o r organizations such as mu-ism groups, unions, fraternal or athletic groups, or [...] Recorded Patient Health Questionnaire-2 Score 0 12/07/2024 [facility] [place] of Occupat ional Health - Occupational Stress [...] place to sleep or slept in a longterm (including now)? No 04/09/2023 Housing Stability Vital [...] were you homeless or living in a longterm (including now)? No 06/07/2024 Estimated Date of [...] FNR OB [address] [place] [address] Flaquita Banuelos, CN [address] [place] [address] 01/29/2025 4:30 PM EDT Routine [facility] OB [address] [place] [address] Flaquita Banuelos, CN [address] [place] [address] 02/06/2025 4:30 PM EDT Routine [facility] OB [address] [place] [address] Flaquita Banuelos, CNM [address] [place] [address] 02/12/2025 4:30 PM EDT Routine [facility] OB [address] [place] [address] Flaquita Banuelos, CN [address] [place] [address] 04/17/2025 10:30 AM EDT Office Visit [facility] [address] [place] [address] Awilda Crenshaw DO [address] [place] [address] Scheduled Orders Name Type Priority Associated Diagnoses Orde r Schedule US OB SCAN FOR GROWTH Imaging Routine with type 2 diabetes mellitus in third trimester Expected: 01/05/2025, Expires: 01/05/2026 documented as of this encounter Visit Diagnoses Diagnosis with type 2 diabetes mellitus in third trimester documented in this encounter Care Teams Manager Of Broadcast Content Relationship Specialty Start Date End Date Unallocated, Noms Provider, [place] [address] PCP - General 04/16/23 Flaquita Banuelos CNM [address] [place] [address] Obstetrics and Gynecology 02/10/23 documented as of this encounter
--- OUTSIDE RECORDS SUMMARY | 2025-01-19 07:04 | XMS_ITS | Clinical Summary ---
Author Organization [employer] tem Address [id number] [address] [place] [address] Care Team Providers Care Branch Rental Manager Name Role Phone SheebaWanda sanchezDaríolibby LACY-CNM Primary Care Provider [phone] Allergies No known active allergies Medications metFORMIN [...] Cardiology [address] [place] [address] Robby Quezada MD Goyal, Vishal, MD Long Q-T syndrome (Primary Dx); Hx of prolonged Q-T interval on ECG 11/07/2024 Telephone [facility] [address] [place] [address] Abby Andino CMA 11/07/2024 Travel 11/06/2024 Travel 10/31/2024 8:00 AM EDT - 10/31/2024 11:59 PM EDT Hospital Encounter [facility] - Ultrasound [address] [place] [address] Encounter for other screening follow-up; Pre-existing type [...] Last Done Comments Diabetic Ophthalmology Exam 1995 Depression Screening 2007 Adult BMI Follow [...] Kendall Rowland MD ECG ORDERABLES Final Result Performing Organization Address City/State/[facility] Co de Phone Number MANUALLY TRANSCRIBED RESULTS * US MFM ECHO FOLLOW-UP (10/31/2024 9:07 AM EDT) Anatomical Region Laterality Modality OB-RN GYNECOLOGY Ultrasound 10/31/2024 8:09 AM EDT Narrative 10/31/2024 3:59 PM EDT NAME: GEOVANNY MONTELONGO : 1995 SEX: F Accession Number: [id number] ORDERING PHYSICIAN: JAXON TURCIOS REFERRING PHYSICIAN: DARÍO BANUELOS Coding ----- --------- Procedures 52377: Follow-up Ultrasound, per fetus [address]: Echocardiography, , cardiovascular system, real time with [...] 1 lb 10 oz EFW by Hadlock ([id number]) Head / Face / Neck Biometry: Cephalic index 0.78 45% [place] [employer] 6.6 mm CM 3.9 mm 4% Nicolaides [...] view. RVOT view. LVOT view. 3-vessel view. 7-htioad-ixupkwe view. Great vessels. Right lung. Left lung. [...] normal RVOT view normal 3-vessel view normal 3-zsrkjt-hmxghuj view normal Aortic arch view documented previously [...] MONTELONGO : 1995 SEX: F Accession Number: [id number] ORDERING PHYSICIAN: JAXON TURCIOS REFERRING PHYSICIAN: DARÍO BANUELOS Coding ----- --------- Procedures [id number]: Follow-up Ultrasound, per fetus [address]3552: Echocardiography, , cardiovascular system, real timewith image [...] 1 lb 10 oz EFW by Hadlock ([id number]) Head / Face / Neck Biometry: Cephalic index 0.78 45% [place] [employer] 6.6 mm CM 3.9 mm 4% Nicolaides Extremities / Bony Struc Biometry: FL / BPD 0.73 FL / HC 0.20 FL / AC 0.21 Tibia 38.6 mm 24w 5d 65% Rachelle Anatomy ----- --------- The following structures appear normal: Head/Neck: Cranium. Lateral ventricles. Cavum septi pellucidi. Cerebellum.Cisterna magna. Parenchyma. Face: Lips. Profile. Nose. Nasal bone. Heart/Thorax: 4-chamber view. RVOT view. LVOT view. 3-vessel view.5-lpcnha-qfrkxhj view. Great vessels. Right lung. Left lung. [...] normal RVOT view normal 3-vessel view normal 5-aobzhu-btgcbec view normal Aortic arch view documented previously [...] byprimary OB provider unless otherwise specified by M. Results forwarded to ordering provider so they can follow up with thepatient as necessary. us Jaxon Turcios MD [facility] ORDERABLES Final Re sult from Last 3 Months Insurance [employer] Care Teams Branch Rental Manager Relationship Specialty Start Date End Date Darío Banuelos APRN-CNM [address] [place] [address] PCP - General Nurse Crankshaft Balancer 04/15/18
--- OUTSIDE RECORDS SUMMARY | 2025-01-19 07:04 | XMS_ITS | Encounter Summary ---
Author Organization [facility] Address [address] [place] [address] Care Team Providers Care Fractionating Still Operator Name Role Phone Lin Banuelosamita Mccoy CNM Unavailable [phone] Unallocated, Noms Provider Primary Care Provi mart Encounter Details Date Type Department Care Team (Late st Contact Info) Description 01/12/2025 Telephone [facility] OB [address] [place] [place] [address] Estelle Hughes LPN Social History Tobacco [...] How often do you attend chur or evangelical services? More than 4 times per year [...] Recorded Patient Health Questionnaire-2 Score 0 12/07/2024 [facility] of Occupat ional Health - Occupational [...] any time in the past 12 m [facility], were you homeless or living [...] Hughes LPN - 01/12/2025 1:36 PM EDT [facility] called and requested orders be sent for growth and Dr. Sam gave verbal orders for patientto have NST/BPP/Growth obtained and [facility] only received NST/BPP orders. Nursing will send order. --Estelle Betts LPN documented in this encounter Plan of Treatment Upcoming Encounters Date Type Department Care Team (Late st Contact Info) Description 01/22/2025 4:30 PM EDT Routine [facility] FNR OB [address] [place] [address] Flaquita Banuelos, CNM [address] [place] [address] 01/29/2025 4:30 PM EDT Routine [facility] FNR OB [address] [place] [address] Flaquita Banuelos, CN [address] [place] [address] 02/06/2025 4:30 PM EDT Routine [facility] FNR OB [address] [place] [address] Flaquita Banuelos, CNM [address] [place] [address] 02/12/2025 4:30 PM EDT Routine [facility] OB [address] [place] [address] Flaquita Banuelos, CNM [address] [place] [address] 04/17/2025 10:30 AM EDT Office Visit [facility] [address] [place] [address] Awilda Crenshaw, DO [address] [place] [address] Scheduled Orders Name Type Priority [...] trimester documented in this encounter Care Teams Fractionating Still Operator Relationship Specialty Start Date End Date Unallocated, Noms Provider, [address] [place] [address] PCP - General 04/16/23 Flaquita Banuelos CNM [address] [place] [address] Obstetrics and Gynecology 02/10/23 documented as of this encounter
--- OUTSIDE RECORDS SUMMARY | 2025-01-19 07:04 | XMS_ITS | Encounter Summary ---
Author Organization [facility] Address [address] [place] [address] Care Team Providers Care Master Hearth Technician Name Role Phone Vin Flaquita Mccoy CNM Unavailable [phone] Unallocated, Noms Provider Primary Care Provi mart Encounter Details Date Type Department Care Team (Late st Contact Info) Description 12/27/2024 Results Follow-Up [facility] FNR OB [address] [place] [address] Abby Saul MA Social History [...] any time in the past 12 m [facility], were you homeless or living in [...] PM EDT Routine [facility] FNR OB [address] [place] [address] Flaquita Banuelos, CNM [address] [place] [address] 01/29/2025 4:30 PM EDT Routine [facility] FNR OB [address] [facility] [place] [address] Flaquita Banuelos, CNM [address] [facility] [place] [address] 02/06/2025 4:30 PM EDT Routine [facility] FNR OB [address] [facility] [place] [address] Flaquita Banuelos, CNM [address] [facility] [place] [address] 02/12/2025 4:30 PM EDT Routine [facility] FNR OB [address] [facility] [place] [address] Flaquita Banuelos, CNM [address] [facility] [place] [address] 04/17/2025 10:30 AM EDT Office Visit [facility] FM [address] [place] [address] Awilda Crenshaw, DO [address] [place] [address] documented as of this encounter Visit Diagnoses Not on filedocumented in this encounter Care Teams Master Hearth Technician Relationship Specialty Start Date End Date Unallocated, Noms Provider, [address] [place] [address] PCP - General 04/16/23 Flaquita Banuelos CNM [facility] [place] [address] Obstetrics and Gynecology 02/10/23 documented as of this encounter
--- OUTSIDE RECORDS SUMMARY | 2025-01-19 07:04 | XMS_ITS | Encounter Summary ---
Author Organization [facility] Address [address] [place] [address] Care Team Providers Care Sugar Mill Worker Name Role Phone Vin Flaquita Mccoy CNM Unavailable [phone] Unallocated, Noms Provider Primary Care Provi mart Encounter Details Date Type Department Care Team (Late st Contact Info) Description 01/12/2025 Clinisync Result Encounter NOMS External Department Unsolicited Nick Sam, DO [address] [facility] [place] [address] Social History Tobacco Use Types Packs/Day Years [...] How often do you attend chur or scientology services? More than 4 times per year [...] 4:30 PM EDT Routine [facility] FNR OB [address] [place] [address] Flaquita Banuelos, CNM [address] [place] [address] 01/29/2025 4:30 PM EDT Routine [facility] FNR OB [address] [facility] [place] [address] Flaquita Banuleos, CNM [address] [place] [address] 02/06/2025 4:30 PM EDT Routine [facility] FNR OB [address] [facility] [place] [address] Flaquita Banuelos, CNM [address] [place] [address] 02/12/2025 4:30 PM EDT Routine [facility] FNR OB [address] [facility] [place] [address] Flaquita Banuelos, CN [address] [place] [address] 04/17/2025 10:30 AM EDT Office Visit [facility] [address] [place] [address] Awilda Crenshaw, DO [address] [place] [address] documented as of this encounter Procedures Procedure Name Priority Date/Time Associated Diagnosis Comments US OB BPP W NON-STRESS 01/12/2025 12:00 PM EDT documented in this encounter Results * US OB BPP W NON-STRESS (01/12/2025 12:00 PM EDT) Anatomical Region Laterality Modality Other 01/12/2025 12:0 0 PM EDT Narrative 01/12/2025 12:03 PM EDT The [address] [address] Ultrasound Report Signed Patient: REGINALD REYES MR#: [id number] : 1995 Acct:[id number] Age/Sex: 29 / F ADM Date: 01/12/25 Loc: US Attending Dr: Nick Sam D.O. Ordering Physician: Nick Sam D.O. Date of Service: 01/12/25 Procedure(s): US OB BPP w non-stress Accession Number(s): [id number] cc: Nick Sam D.O.; Physician,Non-Staff Magaly [address] [id number] Patient Name: REGINALD REYES MRN: [id number] date: 1995 Sex: F Assigned Patient Location: [facility] Current Patient Location: [facility] Accession/Order Number: [id number] Exam Date: 01/12/2025 11:54 Report Date: 01/12/2025 [...] Mcleod M.D. 01/12/2025 12:00 PM Dictation Location: [place] [address] Electronically authenticated by: [id number] Y Date: 01/12/2025 12:00 Dictated By: Elle Mcleod M.D. Signed By: 01/12/25 1203 DD/ 1200 TD/TT: Spot Facer: Procedure Note Radiology, Radiologist, - 01/12/2025 [place] [address] Ultrasound Report Signed Patient: REGINALD REYES MMR#: [id number] : 1995Acct:[id number] Age/Sex: Date: 01/12/25 Loc: US Attending Dr: Nick Sam D.O. Ordering Physician: Nick Sam D.O. Date of Service: 01/12/25 Procedure(s): US OB BPP w non-stress Accession Number(s): [id number] cc: Nick Sam D.O.; Physician,Non-Staff Magaly The [place] [address] Patient Name: REGINALD REYES MRN: [id number] date: 1995 Sex: F Assigned Patient Location: [facility] Current Patient Location: [facility] Accession/Order Number: [id number] Exam Date: 01/12/2025 11:54 Report Date: 01/12/2025 12:00 At the request of: NICK ASM DO Procedure: US OB BPP w non-stress [...] Mcleod M.D. 01/12/2025 12:00 PM Dictation Location: [place] [address] Electronically authenticated by: [id number] Y Date: 2:00 Dictated By: Elle Mcleod M.D. Signed By:01/12/25 1203 DD/ 1200 TD/TT: Spot Facer: us Nick Flaco DO [facility] Final Result documented in this encounter Visit Diagnoses Not on filedocumented in this encounter Care Teams Sugar Mill Worker Relationship Specialty Start Date End Date Unallocated, Noms Provider, [address] [place] [address] PCP - General 04/16/23 Flaquita Banuelos CNM [address] [place] [address] Obstetrics and Gynecology 02/10/23 documented as of this encounter
--- OUTSIDE RECORDS SUMMARY | 2025-01-19 07:04 | XMS_ITS | Encounter Summary ---
Author Organization [facility] Address [address] [place] [address] Care Team Providers Care Field Horticultural Specialty Grower Name Role Phone Flaquita Banuelos CNM Unavailable [phone] Unallocated, Noms Provider Primary Care Provi mart Encounter Details Date Type Department Care Team (Latest Contact Info) Description 01/18/2025 Travel Social History Tobacco Use Types Packs/Day [...] How often do you attend chur or orthodox services? More than 4 times per year [...] Recorded Patient Health Questionnaire-2 Score 0 01/18/2025 [facility] of Occupat ional [facility] - Occupational Stress Questionnaire Answer Date Recorded [...] any time in the past 12 m [facility], were you homeless or living [...] things Not at all 01/18/2025 8:29 AM Abby Holt LPN Feeling down, depressed, or hopeless Not at all 01/18/2025 8:29 AM Abby Holt LPN Patient Health Questionnaire-2 Score 0 01/18/2025 8:29 AM EDT Sharon, Jennife r, SENIOR SUPPLY CHAIN ANALYST documented as of this encounter Plan of Treatment Upcoming Encounters Date Type Department Care Team (Late st Contact Info) Description 01/22/2025 4:30 PM EDT Routine [facility] OB [address] [facility] [place] [address] Flaquita Banuelos, CN [address] [place] [address] 01/29/2025 4:30 PM EDT Routine [facility] FNR OB [address] [facility] [place] [address] Flaquita Banuelos, CN [address] [place] [address] 02/06/2025 4:30 PM EDT Routine [facility] FNR OB [address] [facility] [place] [address] Flaquita Banuelos, CN [address] [place] [address] 02/12/2025 4:30 PM EDT Routine [facility] FNR OB [address] [facility] [place] [address] Flaquita Banuelos, [facility] [address] [place] [address] 04/17/2025 10:30 AM EDT Office Visit [facility] SWS FM [address] [place] [address] Awilda Crenshaw DO [address] [place] [address] documented as of this encounter Visit Diagnoses Not on filedocumented in this encounter Care Teams Field Horticultural Specialty Grower Relationship Specialty Start Date End Date Unallocated, Noms Dian, [address] [place] [address] PCP - General 04/16/23 Flaquita Banuelos CNM [address] [place] [address] Obstetrics and Gynecology 02/10/23 documented as of this encounter
--- OUTSIDE RECORDS SUMMARY | 2025-01-19 07:04 | XMS_ITS | Encounter Summary ---
Author Organization [facility] Address [address] [place] [address] Care Team Providers Care Fine Chemicals Operator Name Role Phone Vin Flaquita Mccoy CNM Unavailable [phone] Unallocated, Noms Provider Primary Care Provi mart Encounter Details Date Type Department Care Team (Late st Contact Info) Description 01/05/2025 Clinisync Result Encounter N[facility] External Department Unsolicited Nick Sam, DO [address] [facility] [address] [place] [address] Social History Tobacco Use Types Packs/Day Years [...] any clubs o r organizations such as hindu groups, unions, fraternal or athletic groups, or [...] Recorded Patient Health Questionnaire-2 Score 0 12/07/2024 [facility] of Occupat ional [...] any time in the past 12 m [facility], were you homeless or [...] 4:30 PM EDT Routine [facility] FNR OB [address] [place] [address] Flaquita Banuelos, CNM [address] [place] [address] 01/29/2025 4:30 PM EDT Routine [facility] FNR OB [address] [place] [address] Flaquita Banuelos, CNM [address] [place] [address] 02/06/2025 4:30 PM EDT Routine [facility] FNR OB [address] [place] [address] Flaquita Banuelos, CNM [address] [place] [address] 02/12/2025 4:30 PM EDT Routine [facility] FNR OB [address] [place] [address] Flaquita Banuelos, CN [address] [place] [address] 04/17/2025 10:30 AM EDT Office Visit [facility] S[facility] FM [address] [place] [address] Awilda Crenshaw, DO [address] [place] [address] documented as of this encounter Procedures Procedure Name Priority Date/Time Associated Diagnosis Comments US OB BPP W NON-STRESS 01/05/2025 3:27 PM EDT documented in this encounter Results * US OB BPP W NON-STRESS (01/05/2025 3:27 PM EDT) Anatomical Region Laterality Modality Other 01/05/2025 3:27 PM EDT Narrative 01/05/2025 3:29 PM EDT The [address] [address] Ultrasound Report Signed Patient: REGINALD REYES MR#: [id number] : 1995 Acct:[id number] Age/Sex: 29 / F ADM Date: 01/05/25 Loc: US Attending Dr: Nick Sam D.O. Ordering Physician: Nick Sam D.O. Date of Service: 01/05/25 Procedure(s): US OB BPP w non-stress Accession Number(s): [id number] cc: Nick Sam D.O.; Physician,Non-Staff Magaly The [place] [id number] Patient Name: REGINALD REYES MRN: [id number] date: 1995 Sex: F Assigned Patient Location: [facility] Current Patient Location: Accession/Order Number: [id number] Exam Date: 01/05/2025 15:26 Report Date: 01/05/2025 [...] Love M.D. 01/05/2025 3:27 PM Dictation Location: [place] [address] Electronically authenticated by: [id number] Y Date: 01/05/2025 15:27 Dictated By: Pradip Love D.O. Signed By: 01/05/25 1529 DD/ 1527 TD/TT: Jewel Waxer: Procedure Note Radiology, Radiologist, MD - 01/05/2025 [place] [address] Ultrasound Report Signed Patient: REGINALD REYES MMR#: [id number] : 1995Acct:[id number] Age/Sex: 29 / FADM Date: 01/05/25 Loc: US Attending Dr: Nick Sam D.O. Ordering Physician: Nick Sam D.O. Date of Service: 01/05/25 Procedure(s): US OB BPP w non-stress Accession Number(s): [id number] cc: Nick Sam D.O.; Physician,Non-Staff Magaly [place] [id number] Patient Name: REGINALD REYES MRN: [id number] date: 1995 Sex: F Assigned Patient Location: [facility] Current Patient Location: [place] Accession/Order Number: [id number] Exam Date: 01/05/2025 15:26 Report Date: 01/05/2025 [...] Love M.D. 01/05/2025 3:27 PM Dictation Location: [place] [address] Electronically authenticated by: [id number] Y Date: 5:27 Dictated By: Pradip Love D.O. Signed By:01/05/25 1529 DD/ 1527 TD/TT: Jewel Waxer: us Nick Sam DO [facility] Final Result documented in this encounter Visit Diagnoses Not on filedocumented in this encounter Care Teams Fine Chemicals Operator Relationship Specialty Start Date End Date Unallocated, Noms Provider, [place] [address] PCP - General 04/16/23 Flaquita Banuelos CNM [address] [place] [address] Obstetrics and Gynecology 02/10/23 documented as of this encounter
--- OUTSIDE RECORDS SUMMARY | 2025-01-19 07:04 | XMS_ITS | Encounter Summary ---
Author Organization [facility] Address [address] [place] [address] Care Team Providers Care Sex Offender Treatment Professional Name Role Phone Flaquita Banuelos CNM Unavailable [phone] Unallocated, Noms Provider Primary Care Provi mart Awilda Crenshaw DO Unavailable [phone] Encounter Details Date Type Department Care Team (Late st Contact Info) Description 04/16/2023 Abstract [facility] S[facility] FM [address] [facility] 230 [place] [address] Awilda Crenshaw, [address] [facility] [address] [place] [address] Social History Tobacco Use Types Packs/Day Years [...] any clubs o r organizations such as hinduism groups, unions, fraternal or athletic groups, or [...] Recorded Patient Health Questionnaire-2 Score 0 04/16/2023 [facility] of Occupat ional Health - Occupational Stress [...] in a chcf (including now)? No 04/09/2023 Comments No Sex [...] [address] [facility] [place] [address] Flaquita Banuelos, CNM [address] [facility] [place] [address] 01/29/2025 4:30 PM EDT Routine [facility] FNR OB [address] [facility] [place] [address] Flaquita Banuelos, CNM [address] [facility] [place] [address] 02/06/2025 4:30 PM EDT Routine [facility] FNR OB [address] [facility] [place] [address] Flaquita Banuelos, CN [address] [facility] [place] [address] 02/12/2025 4:30 PM EDT Routine [facility] FNR OB [address] [facility] [place] [address] Flaquita Banuelos, CN [address] [facility] [place] [address] 04/17/2025 10:30 AM EDT Office Visit [facility] [address] [place] [address] Awilda Crenshaw, [address] [place] [address] documented as of this encounter Visit Diagnoses Not on filedocumented in this encounter Care Teams Sex Offender Treatment Professional Relationship Specialty Start Date End Date Unallocated, Noms Dian, [address] [place] [address] PCP - General 04/16/23 Awilda Crenshaw DO [address] [facility] [address] [place] [address] PCP - [place] [employer] 06/16/23 Flaquita Banuelos CNM [address] [place] [address] Obstetrics and Gynecology 02/10/23 documented as of this encounter
--- OUTSIDE RECORDS SUMMARY | 2025-01-19 07:04 | XMS_ITS | Encounter Summary ---
Author Organization [facility] Address [address] [place] [address] Care Team Providers Care Shoddy Mill Worker Name Role Phone Flaquita Banuelos CNM Unavailable [phone] Unallocated, Noms Provider Primary Care Provi mart Awilda Crenshaw DO Unavailable [phone] Encounter Details Date Type Department Care Team (Late st Contact Info) Description 08/31/2023 Abstract [facility] FM [address] [facility] 230 [place] [address] Awilda Crenshaw, [address] [facility] 230 [place] [address] Social History Tobacco Use Types Packs/Day Years [...] How often do you attend chur or yarsani services? More than 4 times per year [...] Recorded Patient Health Questionnaire-2 Score 0 04/16/2023 [facility] of Occupat ional Health - Occupational Stress [...] PM EDT Routine [facility] FNR OB [address] [place] [address] Flaquita Banuelos [facility] [address] [place] [address] 01/29/2025 4:30 PM EDT Routine [facility] FNR OB [address] [place] [address] Flaquita Banuelos CN [address] [place] [address] 02/06/2025 4:30 PM EDT Routine [facility] FNR OB [address] [facility] [place] [place] [address] Flaquita Banuelos, CATHIEM [address] [facility] [place] [address] 02/12/2025 4:30 PM EDT Routine [facility] FNR OB [address] [facility] [place] [address] Flaquita Banuelos, CATHIEM [address] [facility] [place] [address] 04/17/2025 10:30 AM EDT Office Visit [facility] FM [address] [place] [address] Awilda Crenshaw, DO [address] [place] [address] documented as of this encounter Visit Diagnoses Not on filedocumented in this encounter Care Teams Shoddy Mill Worker Relationship Specialty Start Date End Date Unallocated, Noms Provider, [address] [place] [address] PCP - General 04/16/23 Awilda Crenshaw, DO [address] [place] [address] PCP - [place] Commercial 06/16/23 Flaquita Banuelos CNM [facility]9 [place], [place] [id number] Obstetrics and Gynecology 02/10/23 documented as of this encounter
--- OUTSIDE RECORDS SUMMARY | 2025-01-19 07:04 | XMS_ITS | Encounter Summary ---
Author Organization [facility] Address [address] [place] [address] Care Team Providers Care Security Messenger Name Role Phone Flaquita Banuelos CNM Unavailable [phone] Unallocated, Noms Provider Primary Care Provi mart Encounter Details Date Type Department Care Team (Late st Contact Info) Description 12/07/2024 [facility] [address] [place] [address] Unallocated, Noms Provider, [address] [place], [place] [address] Social History Tobacco Use Types Packs/Day Years [...] How often do you attend chur or mormon services? More than 4 times per year 06/07/2024 Do you belong to any clubs o r organizations such as mandaen groups, unions, fraternal or athletic groups, or [...] Recorded Patient Health Questionnaire-2 Score 0 12/07/2024 [facility] of Occupat ional Health - Occupational [...] PM EDT Routine [facility] FNR OB [address] [place] [address] Flaquita Banuelos, CNM [address] [place] [address] 01/29/2025 4:30 PM EDT Routine [facility] FNR OB [address] [place] [address] Flaquita Banuelos, CN [address] [place] [address] 02/06/2025 4:30 PM EDT Routine [facility] FNR OB [address] [place] [address] Flaquita Banuelos, CN [address] [place] [address] 02/12/2025 4:30 PM EDT Routine [facility] FNR OB [address] [place] [address] Flaquita Banuelos, CNM [address] [place] [address] 04/17/2025 10:30 AM EDT Office Visit [facility] SWS FM [address] [place] [address] Awilda Crenshaw, [address] [place] [address] documented as of this encounter Visit Diagnoses Not on filedocumented in this encounter Care Teams Security Messenger Relationship Specialty Start Date End Date Unallocated, Noms Provider, MD [address] [place], [place] [id number] PCP - General 04/16/23 Flaquita Banuelos CNM [address] [place] [address] Obstetrics and Gynecology 02/10/23 documented as of this encounter
--- OUTSIDE RECORDS SUMMARY | 2025-01-19 07:04 | XMS_ITS | Encounter Summary ---
Author Organization [facility] Address [id number] [address] [place] [address] Care Team Providers Care Retail Cosmetics Sales Beauty Advisor Name Role Phone Flaquita Banuelos BAMBI-CNM Primary Care Provider [phone] Encounter Details Date Type Department Care Team (Late st Contact Info) Description 09/18/2024 Orders Only [facility] [address] [place] [address] External, Scanning Provider Social History [...] Scanning Provider External ECG ORDERABLES Final Result [facility] [address] [place] [address] documented in this encounter Visit Diagnoses Not on filedocumented in this encounter Additional Health Concerns Assessment Noted Time PHQ-9 Depression Total Score: 0 03/03/20 17 3:00 PM EDT documented as of this encounter Care Teams Retail Cosmetics Sales Beauty Advisor Relationship Specialty Start Date End Date Flaquita Banuelos APRN-CNM [address] [place] [address] PCP - General Nurse Adult Ministries Director 04/15/18 documented as of this encounter
--- OUTSIDE RECORDS SUMMARY | 2025-01-19 07:05 | XMS_ITS | Encounter Summary ---
Author Organization [facility] Address [address] [place] [address] Care Team Providers Care Superintendent Meters Name Role Phone Flaquita Banuelos CNM Unavailable [phone] Unallocated, Noms Provider Primary Care Provi mart Encounter Details Date Type Department Care Team (Late st Contact Info) Description 01/09/2025 Bamboo flowsheet [facility] FNR OB [address] [place] [address] Flaquita Banuelos, CNM [address] [place], [place] [address] Social History Tobacco Use Types Packs/Day Years [...] How often do you attend chur or gnosticism services? More than 4 times per year [...] Recorded Patient Health Questionnaire-2 Score 0 12/07/2024 [facility] of Occupat ional Health - Occupational [...] PM EDT Routine [facility] FNR OB [address] [place] [address] Flaquita Banuelos, CNM [address] [facility] [address] 01/29/2025 4:30 PM EDT Routine [facility] FNR OB [address] [place] [address] VinFlaquita, CNM [address] [facility] [place] [address] 02/06/2025 4:30 PM EDT Routine [facility] FNR OB [address] [place] [address] Flaquita Banuelos, CNM [address] [facility] [place] [address] 02/12/2025 4:30 PM EDT Routine [facility] FNR OB [address] [place] [address] Flaquita Banuelos, CNM [address] [facility] [place] [address] 04/17/2025 10:30 AM EDT Office Visit [facility] FM [address] [place] [address] Awilda Crenshaw, DO [address] [place] [address] documented as of this encounter Visit Diagnoses Not on filedocumented in this encounter Care Teams Superintendent Meters Relationship Specialty Start Date End Date Unallocated, Noms Provider, [place] [address] PCP - General 04/16/23 Flaquita Banuelos CNM [facility] [facility] [place] [address] Obstetrics and Gynecology 02/10/23 documented as of this encounter
--- OUTSIDE RECORDS SUMMARY | 2025-01-19 07:05 | XMS_ITS | Encounter Summary ---
Author Organization [facility] Address [address] [place] [address] Care Team Providers Care Seismograph Computer Name Role Phone Flaquita Banuelos CNM Unavailable [phone] Unallocated, Noms Provider Primary Care Provi mart Awilda Crenshaw DO Unavailable [phone] Encounter Details Date Type Department Care Team (Late st Contact Info) Description 10/06/2024 Abstract N[facility] [address] [place] [address] Awilda Crenshaw, DO [address] [facility] 230 [place] [address] Social History Tobacco Use Types Packs/Day Years [...] any clubs o r organizations such as mosque groups, unions, fraternal or athletic groups, or [...] Recorded Patient Health Questionnaire-2 Score 0 10/09/2024 [facility] [place] of Occupat ional Health - Occupational Stress [...] FNR OB [address] [place] [address] Flaquita Banuelos, CNM [address] [place] [address] 01/29/2025 4:30 PM EDT Routine [facility] FNR OB [address] [place] [address] Flaquita Banuelos, CN [address] [place] [place] [address] 02/06/2025 4:30 PM EDT Routine [facility] FNR OB [address] [place] [address] Flaquita Banuelos, CN [address] [facility] [place] [address] 02/12/2025 4:30 PM EDT Routine [facility] FNR OB [address] [place] [address] Flaquita Banuelos, CNM [address] [facility] [place] [address] 04/17/2025 10:30 AM EDT Office Visit [facility] SWS FM [address] [place] [address] Awilda Crenshaw, [address] [place] [address] documented as of this encounter Visit Diagnoses Not on filedocumented in this encounter Care Teams Seismograph Computer Relationship Specialty Start Date End Date Unallocated, Noms Provider, [address] [place] [address] PCP - General 04/16/23 Awilda Crenshaw DO [address] [address] PCP - [place] Commercial 06/16/23 Flaquita Banuelos CNM [address] [place] [address] Obstetrics and Gynecology 02/10/23 documented as of this encounter
--- OUTSIDE RECORDS SUMMARY | 2025-01-19 07:05 | XMS_ITS | Encounter Summary ---
Author Organization [facility] Address [address] [place] [address] Care Team Providers Care Egyptologist Name Role Phone Flaquita Banuelos CNM Unavailable [phone] Unallocated, Noms Provider Primary Care Provi mart Encounter Details Date Type Department Care Team (Late st Contact Info) Description 01/15/2025 Bamboo flowsheet [facility] FNR OB [address] [place] [address] Flaquita Banuelos, CNM [address] [place], [place] [address] Social History Tobacco Use Types Packs/Day Years [...] Recorded Patient Health Questionnaire-2 Score 0 12/07/2024 [facility] of Occupat ional Health - Occupational [...] PM EDT Routine [facility] FNR OB [address] [place] [address] Flaquita Banuelos, CNM [address] [facility] [address] 01/29/2025 4:30 PM EDT Routine [facility] FNR OB [address] [place] [address] VinFlaquita, CNM [address] [facility] [address] 02/06/2025 4:30 PM EDT Routine [facility] FNR OB [address] [place] [address] Flaquita Banuelos, CNM [address] [facility] [address] 02/12/2025 4:30 PM EDT Routine [facility] FNR OB [address] [place] [address] Flaquita Banuelos, CNM [address] [facility] [address] 04/17/2025 10:30 AM EDT Office Visit [facility] FM [address] [place] [address] Awilda Crenshaw, DO [address] [place] [address] documented as of this encounter Visit Diagnoses Not on filedocumented in this encounter Care Teams Egyptologist Relationship Specialty Start Date End Date Unallocated, Noms Provider, [place] [address] PCP - General 04/16/23 Flaquita Banuelos CNM [facility] [facility] [address] Obstetrics and Gynecology 02/10/23 documented as of this encounter
--- OUTSIDE RECORDS SUMMARY | 2025-01-19 07:05 | XMS_ITS | CCD ---
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 Name Role Phone Unavailable Primary Care Provider Unavailabl e FLORO, DARÍO Referring Unavailable Floro CNM, Darío L Unavailable Unallocated , Noms Provider Primary Care Provi mart PetAwilda carr DO Unavailable Unallocated , Noms Provider Primary Care Provi mart Floro HOSE HANDLER-CNM, Darío Primary Care Provider SVETLANA JACK Attending [...] Attending Unavailable PETZNICK, AWILDA M Attending Unavailable FLORO, DARÍO Mccoy Attending Unavailable PETJASON, AWILDA M Attending Unavailable PETJASON, AWILDA M Attending Unavailable DARÍO BANUELOS Referring Unavailable HENRY SAM Attending Unavailable FLORO, DARÍO Mccoy Referring Unavailable FLORO, DARÍO Mccoy Attending Unavailable FLORO, DARÍO Mccoy Attending Unavailable FLORO, DARÍO Mccoy Attending Unavailable FLORO, DARÍO Mccoy Attending Unavailable FLORO, DARÍO Mccoy Referring Unavailable FLORO, DARÍO Mccoy Attending Unavailable FLORO, DARÍO Mccoy Attending Unavailable PETZNJAGJIT, AWILDA M Attending Unavailable PETJASON, AWILDA M Referring Unavailable Medications Current Medications [...] 08/23/2024 Active Start: 02-28-2024 insulin NPH, I keshaane, (NovoLIN N FlexPen) 100 UNIT/ML injection Indications: Type 2 diabetes mellitus without complication, without long-term current use of insulin ([facility]) 15 units in the am and [...] Panel InformationOrdered By: Radiologist Radiology on 01-12-2025 [facility] Work Phone: No Panel Informationon 01-12 Radiology Study observation (narrative) [facility] US OB BPP W NON-STRESS on 01-12-[address] [address] Ultrasound Report Signed Patient: REGINALD REYES MR#: [id number] : 1995 Acct:[id number] Age/Sex: 29 / F ADM Date: 01/12/25 Loc: US Attending Dr: Henry Sam D.O. Ordering Physician: Henry Sam D.O. Date of Service: 01/12/25 Procedure(s): US OB BPP w non-stress Accession Number(s): [id number] cc: Henry Sam D.O.; Physician,Non-Staff [place] [id number] Patient Name: REGINALD REYES MRN: [facility]:[id number] date: 1995 Sex: F Assigned Patient Location: [facility] Current Patient Location: [facility] Accession/Order Number: [id number] Exam Date: 01/12/2025 11:54 Report Date: 01/12/2025 [...] Mcleod M.D. 01/12/2025 12:00 PM Dictation Location: [place] [address] Electronically authenticated by: [id number] Y Date: 01/12/2025 12:00 Dictated By: Elle Mcleod M.D. Signed By: 01/12/25 1203 DD/ 1200 TD/TT: Chronic Manager: [facility] Radiology, Radiologist, - 01/12/2025 [place] [address] Ultrasound Report Signed Patient: REGINALD REYES MR#: [id number] : 1995 Acct:[id number] Age/Sex: 29 / F ADM Date: 01/12/25 Loc: US Attending Dr: Henry Sam D.O. Ordering Physician: Henry Sam D.O. Date of Service: 01/12/25 Procedure(s): US OB BPP w non-stress Accession Number(s): [id number] cc: Henry Sam D.O.; Physician,Non-Staff Magaly The [address] [id number] Patient Name: REGINALD REYES MRN: [facility]:[id number] date: 1995 Sex: F Assigned Patient Location: [facility] Current Patient Location: [facility] Accession/Order Number: [id number] Exam Date: 01/12/2025 11:54 Report Date: 01/12/2025 [...] Mcleod M.D. 01/12/2025 12:00 PM Dictation Location: [place] [address] Electronically authenticated by: [id number] Y Date: 01/12/2025 12:00 Dictated By: Elle Mcleod M.D. Signed By: 01/12/25 1203 DD/ 1200 TD/TT: Chronic Manager: [facility] US OB GROWTHon 01-12-2025 [place] [address] Ultrasound Report Signed Patient: REGINALD REYES MR#: [id number] : 1995 Acct:[id number] Age/Sex: 29 / F ADM Date: 01/12/25 Loc: US Attending Dr: Henry Sam D.O. Ordering Physician: Henry Sam D.O. Date of Service: 01/12/25 Procedure(s): US OB growth Accession Number(s): [id number] cc: Henry Sam D.O.; Physician,Non-Staff [place] The [place] [id number] Patient Name: REGINALD REYES MRN: [id number] date: 1995 Sex: F Assigned Patient Location: [facility] [facility] Current Patient Location: [facility] Accession/Order Number: [id number] Exam Date: 01/12/2025 11:54 Report Date: 01/12/2025 [...] Mcleod M.D. 01/12/2025 12:00 PM Dictation Location: [place] [address] Electronically authenticated by: [id number] Y Date: 01/12/2025 12:00 Dictated By: Elle Mcleod M.D. Signed By: 01/12/25 1203 DD/ 1200 TD/TT: Chronic Manager: [facility] Radiology, Radiologist, - 01/12/2025 [place] [address] Ultrasound Report Signed Patient: REGINALD REYES MR#: [id number] : 1995 Acct:[id number] Age/Sex: 29 / F ADM Date: 01/12/25 Loc: US Attending Dr: Henry Sam D.O. Ordering Physician: Henry Sam D.O. Date of Service: 01/12/25 Procedure(s): US OB growth Accession Number(s): [id number] cc: Henry Sam D.O.; Physician,Non-Staff Mag[place] The [place] [address] Patient Name: REGINALD REYES MRN: [facility]:[id number] date: 1995 Sex: F Assigned Patient Location: [facility] [facility] Current Patient Location: [facility] Accession/Order Number: [id number] Exam Date: 01/12/2025 11:54 Report Date: 01/12/2025 [...] Mcleod M.D. 01/12/2025 12:00 PM Dictation Location: [place] [address] Electronically authenticated by: [id number] Y Date: 01/12/2025 12:00 Dictated By: Elle Mcleod M.D. Signed By: 01/12/25 1203 DD/ 1200 TD/TT: Chronic Manager: [facility] US OB BPP W NON-STRESS on 12-29-2024 [place] [address] Ultrasound Report Signed Patient: REGINALD REYES MR#: [id number] : 1995 Acct:[id number] Age/Sex: 29 / F ADM Date: 12/29/24 Loc: US Attending Dr: Henry Sam D.O. Ordering Physician: Henry Sam D.O. Date of Service: 12/29/24 Procedure(s): US OB BPP w non-stress Accession Number(s): [id number] cc: Henry Sam D.O.; Physician,Non-Staff Mag[place] The [address] [address] Patient Name: REGINALD REYES MRN: [facility]:[id number] date: 1995 Sex: F Assigned Patient Location: [facility] Current Patient Location: Accession/Order Number: [id number] Exam Date: 12/29/2024 09:34 Report Date: 12/29/2024 [...] Roberson M.D. 12/29/2024 9:36 AM Dictation Location: [place] [address] Electronically authenticated by: [id number] Y Date: 12/29/2024 09:36 Dictated By: Zak Roberson M.D. Signed By: 12/29/2438 DD/ TD/TT: Chronic Manager: [facility] Radiology, Radiologist, - 12/29/2024 [place] [address] Ultrasound Report Signed Patient: REGINALD REYES MR#: [id number] : 1995 Acct:[id number] Age/Sex: 29 / F ADM Date: 12/29/24 Loc: US Attending Dr: Henry Sam D.O. Ordering Physician: Henry Sam D.O. Date of Service: 12/29/24 Procedure(s): US OB BPP w non-stress Accession Number(s): [id number] cc: Henry Sam D.O.; Physician,Non-Staff [place] [id number] Patient Name: REGINALD REYES MRN: [facility]:[id number] date: 1995 Sex: F Assigned Patient Location: [facility] Current Patient Location: Accession/Order Number: [id number] Exam Date: 12/29/2024 09:34 Report Date: 12/29/2024 [...] Roberson M.D. 12/29/2024 9:36 AM Dictation Location: [place] [address] Electronically authenticated by: [id number] Y Date: 12/29/2024 09:36 Dictated By: Zak Roberson M.D. Signed By: 12/29/2438 DD/ TD/TT: Chronic Manager: [facility] Radiology Study observation (narrative) [facility] US OB BPP W NON-STRESS Ordered By: Radiologist Radiology on 12-29-2024 [facility] Work Phone: Urinalysis macro (dipstick) panel (U)on 12-25-2024 Bilirubin, UA Negative Negative - 4(70) +++ mg/dL [facility] Blood, UA Negative Negative - 50 Skinny/mcL [facility] Clarity, UA Clear [facility] Color, UA Yellow [facility] Glucose, UA Negative Negative - 2000(110) ++++ mg/dL [facility] Interpretation and review of laboratory results Normal [facility] Ketones, UA Negative Negative - 160(16) ++++ mg/dL [facility] Leukocytes, UA Positive Negative - 500+++ Cal/mcL [facility] Comment on above: small Nitrite, UA Negative Negative - Positive [facility] pH, UA 6.5 5 - 9 [facility] Protein, UA Negative Negative - 2000(20) ++++ mg/dL [facility] Spec Grav, UA 1.02 1 - 1.03 [facility] Urobilinogen, UA 1.0 0.2 - 12 mg/dL [facility] US OB FOLLOW UP TRANSABDOMIN AL APPROACHon [...] II, MD, PHD at 12-Dec-2024 07:13:14 PM [facility] Normal Not Available POCT EKGOrdered By: Abby Andino on 11-08-2024 [email or web address] HbA1c (Bld) [Mass fraction]o n 10-09-2024 Interpretation and review of laboratory results Normal [facility] - Hematology and Cell countson 10-09-2024 HbA1c (Bld) [Mass fraction] 5.7 % [facility] POCT EKGon 09-19-2024 [facility] No Panel Informationon 08-14 [facility] Chlamydia/GC by PCR ThinPrep fluidon 07-11-2024 Chlamydia Dna(Pcr) Negative [facility] Gonorrhoeae Dna(Pcr) Negative [facility] Drug Screen, Urineon 024 Amphetamine/Methampheta mine Negative [facility] Opiate Quantitative Urine Negative [facility] HIV 1&2 AB/AG Screen (P24 AG )on 07-10-2024 HIV 1&2 AB/AG Non-Reactive [facility] Hemoglobin A1con 07-10-2024 HbA1c (Bld) [Mass fraction] 6.4 % Abnormal 4.0 - 6.0 % [facility] Interpretation and review of laboratory results Abnormal [facility] No Panel Informationon 07-10 [facility] Type and screenon 07-10-2024 Abo/Rh(D) Positive [facility] US OB < 14 WEEKS EARLYon [...] Interpretation and review of laboratory results Normal [facility] - Hematology and Cell countson 06-08-2024 HbA1c (Bld) [Mass fraction] 6.2 % [facility] Cytology Cervical or vaginal smear or scraping studyOrdered By: Christen Nettles on 02-10-2023 [facility] Hemoglobin A1Con 07-05-2019 HbA1c (Bld) [Mass fraction] 5.9 % Normal 4.8-5.9 [facility] Comment on above: Performed By: #### G BROOKE, LIPR #### [address] [place], [place] [id number] Byproducts Extractor: Ruslan Fernando MD #### INSU #### [place] [address] [place], [place] [id number] Byproducts Extractor: Marv Guzman MD [address] [place], [place] [address] Byproducts Extractor: Ruslan Fernando MD HbA1c (Bld) [Mass fraction] 123 mg/dL [facility] Comment on above: Result Comment: The ADA and AACC recommend providing the estimated average glucose result to permit better patient understanding of their HBA1c result. Performed By: #### Beatriz COX LIPR #### [address] [place], [place] [id number] Byproducts Extractor: Ruslan Fernando MD #### INSU #### [place] [address] [place] [address] Byproducts Extractor: Marv Guzman MD [address] [place], [place] [id number] Byproducts Extractor: Ruslan Fernando MD Glucose [Mass/Vol] 123 mg/dL [place], [place] Comment on above: The ADA and AACC rec ommend providing the estimated average glucose result to permit better patient understanding of their HBA1c result. HbA1c (Bld) [Mass fraction] 5.9 % 4.8 - 5.9 % [place], [place] Insulinon 07-05-2019 Insulin 36.2 mU/L [facility] Comment on above: Performed By: #### G LYHGB, LIPR #### [facility] [address] [place] [address] [place] [place], [place] [id number] Byproducts Extractor: Ruslan Fernando MD #### INSU #### [address] [id number] Byproducts Extractor: Marv Guzman MD [facility] [address] [place] [address] [place]. [place], [place] [id number] Byproducts Extractor: Ruslan Fernando MD Reference Range Normal [facility] Comment on above: Result Comment: Fast in.6-24.9 30 min: 20-112 60 min: 29-88 90 min: 26-84 120 min: 22-79 Performed By: #### G LYHGB, LIPR #### [facility] [address] [place] [address] [place] [place], [place] [address] Byproducts Extractor: Ruslan Fernando MD #### INSU #### [address] [id number] Byproducts Extractor: Marv Guzman MD [facility] [address] [place] [address] Dr. [place], [place] [id number] Byproducts Extractor: Ruslan Fernando MD Collection Info. 43 Normal [facility] Comment on above: Performed By: #### G LYHGB, LIPR #### [facility] [address] [place] [address] [place] [place], [place] [phone] Byproducts Extractor: Ruslan Fernando MD #### INSU #### [address] [id number] Byproducts Extractor: Marv Guzman MD [address] [place], [place] [id number] Byproducts Extractor: Ruslan Fernando MD Insulin, totalon 07-05-2019 INR Coag (Bld) [Relative time] [facility] [place] [place] Comment on above: Fastin.6-24.9 30 min: 20-112 60 min: 29-88 90 min: 26-84 120 min: 22-79 Insulin 36.2 mU/L [place], [place] Insulin Comment [address] [place], [place] Lipid Panelon 07-05-2019 Cholesterol [Mass/Vol] 204 mg/dL High <200 [place], [place] Comment on above: Cholesterol Guidelines: <200 Desirable 200-240 Borderline >240 Undesirable Cholesterol in HDL [Mass/Vol] 35 mg/dL Low >40 [place], [place] Comment on above: HDL Guidelines: <40 Undesirable 40-59 Borderline >59 Desirable Cholesterol in LDL [Mass/Vol] 102 mg/dL 0 - 130 mg/dL [place], [place] Comment on above: LDL Guidelines: <100 Desirable 100-129 Near to/above Desirable 130-159 Borderline >159 Undesirable Direct (measured) LDL and calculated LDL are not interchangeable tests. Cholesterol in VLDL [Mass/Vol] NOT REPORTED High 1 - 30 mg/dL [place], [place] Cholesterol.total/Perla sterol in HDL [Mass ratio] 5.8 {ratio} High <5 [place], [place] Interpretation and review of laboratory results Abnormal [place], [place] Triglyceride [Mass/Vol] 336 mg/dL High <150 M [place], [place] Comment on above: Triglyceride Guidelines: <150 Desirable 150-199 Borderline 200-499 High >499 Very high Based on AHA Guidelines for fasting triglyceride, May 2012. Lipid Profileon 07-05-2019 Cholesterol [Mass/Vol] 204 mg/dL High <200 [facility] Comment on above: Result Comment: Cholesterol Guidelines: <200 Desirable 200-240 Borderline >240 Undesirable Performed By: #### G LYHGB, LIPR #### [facility] [address] [place] [address] Byproducts Extractor: Ruslan Fernando MD #### INSU #### [facility] [address] [place], [place] [phone] Byproducts Extractor: Marv Guzman MD [facility] [address] [place] [address] Byproducts Extractor: Ruslan Fernando MD Cholesterol in HDL [Mass/Vol] 35 mg/dL Low >40 [facility] Comment on above: Result Comment: HDL Guidelines: <40 Undesirable 40-59 Borderline >59 Desirable Performed By: #### G LYHGB, LIPR #### [address] [place] [address] Byproducts Extractor: Ruslan Fernando MD #### INSU #### [place] [address] [place] [address] Byproducts Extractor: Marv Guzman MD [address] [place] [address] Byproducts Extractor: Ruslan Fernando MD Cholesterol in LDL [Mass/Vol] 102 mg/dL Normal 0-130 [facility] Comment on above: Result Comment: LDL Guidelines: <100 Desirable 100-129 Near to/above Desirable 130-159 Borderline >159 Undesirable Direct (measured) LDL and calculated LDL are not interchangeable tests. Performed By: #### G LYHGB, LIPR #### [address] [place] [address] Byproducts Extractor: Ruslan Fernando MD #### INSU #### [facility] [address] [place] [address] Byproducts Extractor: Marv Guzman MD [address] [place] [address] Byproducts Extractor: Ruslan Fernando MD Cholesterol.total/Perla sterol in HDL [Mass ratio] 5.8 {ratio} High <5 [facility] Comment on above: Performed By: #### G LYHGB, LIPR #### [address] [place] [address] Byproducts Extractor: Ruslan Fernando MD #### INSU #### [facility] [address] [place] [address] Byproducts Extractor: Marv Guzman MD [address] [place] [address] Byproducts Extractor: Ruslan Fernando MD Triglyceride [Mass/Vol] 336 mg/dL High <150 M [facility] Comment on above: Result Comment: Triglyceride Guidelines: <150 Desirable 150-199 Borderline 200-499 High >499 Very high Based on AHA Guidelines for fasting triglyceride, May 2012. Performed By: #### G LYHGB, LIPR #### [facility] [address] [place], [place] [id number] Byproducts Extractor: Ruslan Fernando MD #### INSU #### [facility] [address] [place] [address] Byproducts Extractor: Marv Guzman MD [facility] [address] [place] [address] [place]. [place], [place] 56[address] Byproducts Extractor: Ruslan Fernando MD Cholesterol in VLDL [Mass/Vol] NOT REPORTED Normal 09-14 [facility] Comment on above: Performed By: #### G LYHGB, LIPR #### [facility] [address] [place], [place] [address] Byproducts Extractor: Ruslan Fernando MD #### INSU #### [facility] [address] [place] [address] Byproducts Extractor: Marv Guzman MD [address] [place], [place] [address] Byproducts Extractor: Ruslan Fernando MD Vital Signs Date Time Vital Sign Value Performing Clinician Facility 01-15-2025 16:36-0400 Body mass index (BMI) [Ratio] 34.87 kg/m2 Darío Díazlaura [facility] Work Phone: [facility] 01-15-2025 16:36-0400 Body weight 110.22 kg Darío Díazlaura CN Work Phone: [facility] 01-15-2025 16:36-0400 Diastolic blood pressure 78 mm[Hg] Darío Díazlaura CN Work Phone: [facility] 01-15-2025 16:36-0400 Systolic blood pressure 120 mm[Hg] Darío Díazlaura CN Work Phone: [facility] 01-09-2025 16:34-0400 Body mass index (BMI) [Ratio] 34.72 kg/m2 Darío Floro CNM Work Phone: [facility] 01-09-2025 16:34-0400 Body weight 109.77 kg Darío Floro CNM Work Phone: [facility] 01-09-2025 16:34-0400 Diastolic blood pressure 74 mm[Hg] Darío Floro CNM Work Phone: [facility] 01-09-2025 16:34-0400 Systolic blood pressure 120 mm[Hg] Darío Floro CNM Work Phone: [facility] 12-26-2024 16:02-0400 Body mass index (BMI) [Ratio] 34.15 kg/m2 Darío Floro CNM Work Phone: [facility] 12-26-2024 16:02-0400 Body weight 107.96 kg Darío Floro CNM Work Phone: [facility] 12-26-2024 16:02-0400 Diastolic blood pressure 74 mm[Hg] Darío Floro CNM Work Phone: [facility] 12-26-2024 16:02-0400 Systolic blood pressure 116 mm[Hg] Darío Floro CNM Work Phone: [facility] 12-11-2024 15:56-0400 Diastolic blood pressure 70 mm[Hg] Darío Floro CNM Work Phone: [facility] 12-11-2024 15:56-0400 Systolic blood pressure 120 mm[Hg] Darío Floro CNM Work Phone: [facility] 12-07-2024 08:17-0400 Body height 177.8 cm Awilda Petznick DO Work Phone: [facility] 12-07-2024 08:17-0400 Body temperature 97.9 [degF] Awilda Petznick DO Work Phone: [facility] 12-07-2024 08:17-0400 Diastolic blood pressure 66 mm[Hg] Awilda Petznick DO Work Phone: [facility] 12-07-2024 08:17-0400 Heart rate 86 /min Awilda Petznick DO Work Phone: [facility] 12-07-2024 08:17-0400 SaO2% (BldA) [Mass fraction] 98 % Awilda Petznick DO Work Phone: [facility] 12-07-2024 08:17-0400 Systolic blood pressure 126 mm[Hg] Awilda Petznick DO Work Phone: [facility] 11-15-2024 16:31-0400 Body mass index (BMI) [Ratio] 34.44 kg/m2 Darío Banuelos CNM Work Phone: [facility] 11-15-2024 16:31-0400 Body weight 108.86 kg Darío Banuelos CNM Work Phone: [facility] 11-15-2024 16:31-0400 Diastolic blood pressure 78 mm[Hg] Darío Banuelos CNM Work Phone: [facility] 11-15-2024 16:31-0400 Systolic blood pressure 120 mm[Hg] Darío Banuelos CNM Work Phone: [facility] 11-08-2024 09:17-0400 Body height 177.8 cm Tricia Rowland MD Work Phone: [facility] 11-08-2024 09:17-0400 Body mass index (BMI) [Ratio] 34.06 kg/m2 Tricia Rowland MD Work Phone: [facility] 11-08-2024 09:17-0400 Body weight 107.68 kg Tricia Rowland MD Work Phone: [facility] 11-08-2024 09:17-0400 Diastolic blood pressure 64 mm[Hg] Tricia Rowland MD Work Phone: [facility] 11-08-2024 09:17-0400 Heart rate 80 /min Tricia Rowland MD Work Phone: [facility] 11-08-2024 09:17-0400 SaO2% (BldA) [Mass fraction] 98 % Tricia Rowland MD Work Phone: [facility] 11-08-2024 09:17-0400 Systolic blood pressure 128 mm[Hg] Tricia Rowland MD Work Phone: [facility] 10-09-2024 15:40-0500 Body height 177.8 cm Awilda Petznick DO Work Phone: [facility] 10-09-2024 15:40-0500 Body mass index (BMI) [Ratio] 34.01 kg/m2 Awilda Petznick DO Work Phone: [facility] 10-09-2024 15:40-0500 Body temperature 98.2 [degF] Awilda Petznick DO Work Phone: [facility] 10-09-2024 15:40-0500 Body weight 107.5 kg Awilda Petznick DO Work Phone: [facility] 10-09-2024 15:40-0500 Diastolic blood pressure 66 mm[Hg] Awilda Petznick DO Work Phone: [facility] 10-09-2024 15:40-0500 Heart rate 98 /min Awilda Petznick DO Work Phone: [facility] 10-09-2024 15:40-0500 SaO2% (BldA) [Mass fraction] 98 % Awilda Petznick DO Work Phone: [facility] 10-09-2024 15:40-0500 Systolic blood pressure 128 mm[Hg] Awilda Petznick DO Work Phone: [facility] 09-28-2024 16:17-0500 Body mass index (BMI) [Ratio] 34.58 kg/m2 Darío Banuelos CNM Work Phone: [facility] 09-28-2024 16:17-0500 Body weight 109.32 kg Darío Banuelos CNM Work Phone: [facility] 09-28-2024 16:17-0500 Diastolic blood pressure 70 mm[Hg] Darío Banuelos CNM Work Phone: [facility] 09-28-2024 16:17-0500 Systolic blood pressure 120 mm[Hg] Darío Banuelos CNM Work Phone: [facility] 09-19-2024 10:31-0500 Body height 177.8 cm Aye Saucedo MD Work Phone: [facility] 09-19-2024 10:31-0500 Body mass index (BMI) [Ratio] 34.15 kg/m2 Aye Saucedo MD Work Phone: [facility] 09-19-2024 10:31-0500 Body weight 107.96 kg Aye Saucedo MD Work Phone: [facility] 09-19-2024 10:31-0500 Diastolic blood pressure 76 mm[Hg] Aye Saucedo MD Work Phone: [facility] 09-19-2024 10:31-0500 Heart rate 85 /min Aye Saucedo MD Work Phone: [facility] 09-19-2024 10:31-0500 SaO2% (BldA) [Mass fraction] 98 % Aye Saucedo MD Work Phone: [facility] 09-19-2024 10:31-0500 Systolic blood pressure 122 mm[Hg] Aye Saucedo MD Work Phone: [facility] 09-11-2024 08:12-0500 Body mass index (BMI) [Ratio] 34.29 kg/m2 Clarke Modi MD Work Phone: [facility] 09-11-2024 08:12-0500 Body weight 108.41 kg Clarke Modi MD Work Phone: [facility] 09-11-2024 08:12-0500 Diastolic blood pressure 81 mm[Hg] Clarke Modi MD Work Phone: [facility] 09-11-2024 08:12-0500 Heart rate 80 /min Clarke Modi MD Work Phone: [facility] 09-11-2024 08:12-0500 Systolic blood pressure 122 mm[Hg] Clarke Modi MD Work Phone: [facility] 09-01-2024 08:54-0500 Body height 177.8 cm Awilda Petznick DO Work Phone: [facility] 09-01-2024 08:54-0500 Body mass index (BMI) [Ratio] 34.44 kg/m2 Awilda Petznick DO Work Phone: [facility] Joseph 09-01-2024 08:54-0500 Body temperature 98.49 [degF] Awilda Petznick DO Work Phone: [facility] 09-01-2024 08:54-0500 Body weight 108.86 kg Awilda Petznick DO Work Phone: [facility] 09-01-2024 08:54-0500 Diastolic blood pressure 72 mm[Hg] Awilda Petznick DO Work Phone: [facility] 09-01-2024 08:54-0500 Heart rate 92 /min Awilda Petznick DO Work Phone: [facility] 09-01-2024 08:54-0500 SaO2% (BldA) [Mass fraction] 97 % Awilda Petznick DO Work Phone: [facility] 09-01-2024 08:54-0500 Systolic blood pressure 126 mm[Hg] Awilda Petznick DO Work Phone: [facility] 08-14-2024 10:40-0500 Body height 177.8 cm Svetlana Jack PA-C Work Phone: [facility] 08-14-2024 10:40-0500 Body mass index (BMI) [Ratio] 34.72 kg/m2 Svetlana Lavoy PA-C Work Phone: [facility] 08-14-2024 10:40-0500 Body weight 109.77 kg Svetlana Lavoy PA-C Work Phone: [facility] 08-14-2024 10:40-0500 Diastolic blood pressure 68 mm[Hg] Svetlana Lavoy PA-C Work Phone: [facility] 08-14-2024 10:40-0500 Heart rate 86 /min Svetlana Lavoy PA-C Work Phone: [facility] 08-14-2024 10:40-0500 Systolic blood pressure 134 mm[Hg] Svetlana Lavoy PA-C Work Phone: [facility] 08-14-2024 09:42-0500 Body height 177.8 cm Shauna Denny RN Work Phone: [facility] 08-14-2024 09:41-0500 Body mass index (BMI) [Ratio] 34.72 kg/m2 Shauna Denny RN Work Phone: [facility] 08-14-2024 09:41-0500 Body weight 109.77 kg Shauna Denny RN Work Phone: [facility] 08-03-2024 08:36-0500 Body mass index (BMI) [Ratio] 35.3 kg/m2 Darío Sheebao CNM Work Phone: [facility] 08-03-2024 08:36-0500 Body weight 111.58 kg Darío Sheebao CNM Work Phone: [facility] 08-03-2024 08:36-0500 Diastolic blood pressure 80 mm[Hg] Darío Sheebao CNM Work Phone: [facility] 08-03-2024 08:36-0500 Systolic blood pressure 122 mm[Hg] Darío Sheebao CNM Work Phone: [facility] 07-10-2024 15:43-0500 Body mass index (BMI) [Ratio] 35.3 kg/m2 Darío BRAND Work Phone: [facility] 07-10-2024 15:43-0500 Body weight 111.58 kg Darío BRANDM Work Phone: [facility] 07-10-2024 15:43-0500 Diastolic blood pressure 76 mm[Hg] Darío BRAND Work Phone: [facility] 07-10-2024 15:43-0500 Systolic blood pressure 120 mm[Hg] Darío BRAND Work Phone: [facility] 06-08-2024 14:04-0400 Body height 177.8 cm Awilda Petznick DO Work Phone: [facility] 06-08-2024 14:04-0400 Body mass index (BMI) [Ratio] 35.01 kg/m2 Awilda Petznick DO Work Phone: [facility] 06-08-2024 14:04-0400 Body temperature 98.49 [degF] Awilda Petznick DO Work Phone: [facility] 06-08-2024 14:04-0400 Body weight 110.68 kg Awilda Petznick DO Work Phone: [facility] 06-08-2024 14:04-0400 Diastolic blood pressure 72 mm[Hg] Awilda Petznick DO Work Phone: [facility] 06-08-2024 14:04-0400 Heart rate 87 /min Awilda Petznick DO Work Phone: [facility] 06-08-2024 14:04-0400 SaO2% (BldA) [Mass fraction] 98 % Awilda Petznick DO Work Phone: [facility] 06-08-2024 14:04-0400 Systolic blood pressure 138 mm[Hg] Awilda Petznick DO Work Phone: [facility] Encounters Encounter Date Encounter Type Care Provider Facility Start: 01-15-2025 End: 01-15-2025 Subsequent care visit Darío Nadine Díazo CNM Work Phone: [facility] Comment on above: Type 2 diabetes guerrero itus without complication, without long- term current use of insulin (Primary Dx); with type 2 diabetes mellitus in third trimester Start: 01-15-2025 ambulatory DARÍO L FLORO Not Lisa ilable Start: 01-15-2025 End: 01-15-2025 Bamboo flowsheet Darío [...] 01-09-2025 End: 01-09-2025 Subsequent care visit Darío Nadine Díazo CNM Work Phone: [facility] Comment on above: Type 2 diabetes guerrero itus treated with insulin ([facility]) (Primary Dx); Encounter for care of [...] Type 2 diabetes mellitus treated with insulin ([facility]) Start: 12-26-2024 End: 12-26-2024 Bamboo flowsheet [...] 30 minutes Aye Saucedo MD Work Phone: [facility] Comment on above: Long Q-T syndrome (P rimary Dx); Hx of prolonged Q-T interval on ECG Start: 11-08-2024 End: 11-08-2024 ambulatory TRICIA ROWLAND [facility] Start: 11-07-2024 End: 11-07-2024 Telephone encounter Abby Andino [facility] Start: 10-31-2024 End: 10-31-2024 ambulatory [facility] Start: 10-18-2024 End: 10-18-2024 ambulatory DARÍO Nadine FLORO Not Available Start: 10-18-2024 End: 10-18-2024 Bamboo flowsheet Darío L Floro CNM Work Phone: [facility] Start: 10-18-2024 End: 10-18-2024 Bamboo flowsheet Darío L Floro CNM Work Phone: [facility] Start: 10-10-2024 End: 10-10-2024 Office outpatient visit 25 minutes Clarke Modi MD Work Phone: [facility] Comment on above: Pre-existing type 2 diabetes mellitus during in second trimester (Primary Dx) Start: 10-10-2024 End: 10-10-2024 ambulatory [facility] Start: 10-09-2024 End: 10-09-2024 Office outpatient visit 15 minutes Awilda Delatorre DO Work Phone: [facility] Comment on above: with type 2 diabetes mellitus in second trimester (Primary Dx); Type 2 diabetes mellitus without complication, without long-term current use of insulin ([facility]) Start: 10-09-2024 End: 10-09-2024 ambulatory AWILDA DELATORRE Not Available Start: 10-03-2024 End: 10-03-2024 ambulatory [facility] Start: 09-28-2024 End: 09-28-2024 Subsequent care visit Darío Banuelos CNM Work Phone: [facility] Comment on above: Encounter for prenat al care of first , second trimester (Primary Dx); Type 2 diabetes mellitus without complication, without long-term current use of insulin ([facility]) Start: 09-28-2024 End: 09-28-2024 ambulatory DARÍO BANUELOS Not Available Start: 09-28-2024 End: 09-28-2024 Bamboo flowsheet Darío Banuelos CNM Work Phone: [facility] Start: 09-28-2024 End: 09-28-2024 Bamboo flowsheet Darío Banuelos CNM Work Phone: [facility] Start: 09-19-2024 End: 09-19-2024 Office consultation new/estab patient 40 min Jacque Schneider MD Work Phone: [facility] Comment on above: Long Q-T syndrome (P rimary Dx); Type 2 diabetes mellitus without complication, unspecified whether retirement insulin use ([facility]) Start: 09-19-2024 End: 09-19-2024 [facility] Start: 09-18-2024 End: 09-18-2024 Telephone encounter Abby Andino CMA [facility] Start: 09-14-2024 End: 09-14-2024 Chart abstracting Jacque Schneider MD Work Phone: [facility] Start: 09-11-2024 End: 09-11-2024 Telephone encounter Yudelka Randall RN [facility] Start: 09-11-2024 End: 09-11-2024 Office outpatient visit 25 minutes Clarke Modi MD Work Phone: [facility] Comment on above: Pre-existing type 2 diabetes mellitus during in second trimester (Primary Dx); Long Q-T syndrome Start: 09-11-2024 End: 09-11-2024 ambulatory CLARKE MODI [facility] Start: 09-05-2024 End: 09-05-2024 Telephone encounter Sparkle Castillo RN [facility] Start: 09-01-2024 End: 09-01-2024 Office outpatient visit 25 minutes Awilda Delatorre DO Work Phone: [facility] Comment on above: with type 2 diabetes mellitus in second trimester (Primary Dx) Start: 09-01-2024 End: 09-01-2024 ambulatory AWILDA DELATORRE Not Available Start: 08-28-2024 End: 08-28-2024 Telephone encounter Donna Posadas RN [facility] Start: 08-23-2024 End: 08-23-2024 Office outpatient visit 25 minutes Ariella Davisgan BAMBI-MAXIMINO Work Phone: [facility] Comment on above: 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 itus without complication, 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 ([facility]) (Primary Dx) Start: 08-23-2024 End: 08-23-2024 ambulatory ARIELLA FELISA [facility] Start: 08-14-2024 End: 08-14-2024 Office outpatient new 45 minutes Svetlana Jack PA-C Work Phone: [facility] Comment on above: with type 2 diabetes mellitus in second trimester (Primary Dx); Long Q-T syndrome Start: 08-14-2024 End: 08-14-2024 ambulatory Shauna Denny RN Work Phone: [facility] Comment on above: Pre-existing type 2 diabetes mellitus in in first trimester with type 2 diabetes mellitus in second trimester (Primary Dx) Start: 08-03-2024 End: 08-03-2024 Bamboo flowsheet Darío BRANDM Work Phone: [facility] Start: 08-03-2024 End: 08-03-2024 Bamboo flowsheet Darío L Floro CNM Work Phone: [facility] Start: 08-03-2024 End: 08-03-2024 Subsequent care visit Darío Nadine Floro CNM Work Phone: [facility] Comment on above: Encounter for prenat al care of first , first trimester (Primary Dx); Type 2 diabetes mellitus with hyperosmolarity without coma, without long-term current use of insulin ([facility]) Start: 08-03-2024 End: 08-03-2024 ambulatory DARÍO L FLORO Not Available Start: 07-25-2024 End: 07-25-2024 Chart abstracting Scanning Provider External [facility] Start: 07-10-2024 End: 07-10-2024 Subsequent care visit Darío Nadine Floro CNM Work Phone: [facility] [...] without long- term current use of insulin ([facility]) Start: 06-08-2024 End: 06-08-2024 ambulatory AWILDA DELATORRE Not Available Start: 05-03-2024 End: 05-03-2024 Telephone encounter Darío L Floro CNM Work Phone: [facility] Start: 02-28-2024 End: 02-28-2024 ambulatory AWILDA DELATORRE Not Available Start: 07-05-2019 End: 07-06-2019 Patient encounter procedure DARÍO BANUELOS [facility] Start: 07-05-2019 End: 07-05-2019 Subsequent hospital [...] Phone: Start: 08-14-2024 AMB REFERRAL TO MATE RNA MEDICINE - DIABETES EDUCATION Darío Díazlaura [facility] Work Phone: Start: 08-14-2024 AMB REFERRAL TO MATE RNAL MEDICINE - NUTRITION EDUCATION Darío [facility] Work Phone: Start: 07-11-2024 CHLAMYDIA/GC BY PCR [...] t hin layer prep mnl screen Darío L Floro CNM Work Phone: Start: 07-05-2019 Assay of insulin total DARÍO FLORO Start: 07-05-2019 Hemoglobin glycosyla carola a1c DARÍO FLORO Start: 07-05-2019 Lipid panel DARÍO FL SHAYNE Start: 07-05-2019 Assay of insulin total Darío Floro Work Phone: Start: 07-05-2019 Hemoglobin glycosyla carola a1c Darío Floro Work Phone: Start: 07-05-2019 Lipid panel Darío Fl shayne Work Phone: Plan of Treatment Date Care Activity Detail Author Start: 11-08-2025 Adult BMI Screening Adult BMI Screen ing [facility] Start: 11-08-2025 Tobacco Screening Tobacco Screening [facility] Start: 09-19-2025 Adult BMI Screening Adult BMI Screen ing [facility] Start: 09-19-2025 Tobacco Screening Tobacco Screening [facility] Start: 09-11-2025 Adult BMI Screening Adult BMI Screen ing [facility] Start: 09-11-2025 Tobacco Screening Tobacco Screening [facility] Start: 08-30-2025 Urine screening for protein Diabetes: Urine Protein Screening [facility] Start: 08-14-2025 Adult BMI Screening [facility] Start: 08-14-2025 Tobacco Screening Tobacco Screening [facility] Start: 08-14-2025 End: 08-14-2025 US MFM with or without consult US MFM with or without consult Imaging Routine with type 2 diabetes mellitus in second trimester Expected: 08/14/2025 (Approximate), Expires: 08/14/2025 [employer] Work Phone: Comment on above: Expected: 08/14/2025 (Approximate), Expires: 08/14/2025 Start: 04-16-2025 Influenza vaccination Influenz a Vaccine (Season Ended) [facility] Start: 02-15-2025 End: 02-15-2025 Professional / ancillary services management 02/15/2025 4:00 PM EDT Ancillary Procedure [facility] [address] [phone] [facility] Start: 02-13-2025 End: 02-13-2025 Patient encounter procedure 02/13/2025 4:00 PM EDT Routine [facility] [address] [facility] [place] [phone] Darío Banuelos, CNM [address] [place] [address] [facility] Start: 02-12-2025 End: 02-12-2025 Patient encounter procedure 02/12/2025 4:30 PM EDT Routine [facility] [address] [facility] [place] [address] Darío Banuelos, CNM [address] [place] [address] [facility] Start: 02-09-2025 End: 02-09-2025 Professional / ancillary services management 02/09/2025 4:00 PM EDT Ancillary Procedure [facility] [address] [place] [address] [facility] Start: 02-06-2025 End: 02-06-2025 Patient encounter procedure [facility] Start: 02-02-2025 End: 02-02-2025 Professional / ancillary services management 02/02/2025 4:00 PM EDT Ancillary Procedure [facility] [address] [phone] [facility] Start: 01-30-2025 End: 01-30-2025 Patient encounter procedure 01/30/2025 4:00 PM EDT Routine [facility] [address] [facility] [place] [address] Darío Banuelos, CNM [address] [place] [address] [facility] Start: 01-29-2025 End: 01-29-2025 Patient encounter procedure 01/29/2025 4:30 PM EDT Routine [facility] [address] [facility] [place] [address] Darío Banuelos, CNM [address] [place] [address] [facility] Start: 01-26-2025 End: 01-26-2025 Professional / ancillary services management 01/26/2025 4:00 PM EDT Ancillary Procedure [facility] [address] [place] [address] [facility] Start: 01-23-2025 End: 01-23-2025 Patient encounter procedure 01/23/2025 4:00 PM EDT Routine [facility] [address] [facility] [place] [address] Darío Banuelos, CNM [address] [place] [address] [facility] Start: 01-22-2025 End: 01-22-2025 Patient encounter procedure 01/22/2025 4:30 PM EDT Routine [facility] [address] [facility] [place] [address] Darío Banuelos, CNM [address] [place] [address] [facility] Start: 01-19-2025 End: 01-19-2025 Professional / ancillary services management 01/19/2025 9:15 AM EDT Ancillary Procedure [facility] [address] [facility] [address] [place] [phone] [facility] Start: 01-18-2025 End: 01-18-2025 Patient encounter procedure [facility] Comment on above: with type 2 diabetes mellitus in third trimester Start: 01-16-2025 End: 01-16-2025 Patient encounter procedure 01/16/2025 4:00 PM EDT Routine [facility] [address] [place] [phone] Darío Banuelos, CNM [address] [place] [address] [facility] Start: 01-15-2025 End: 01-15-2025 Patient encounter procedure [facility] Comment on above: Arrived Start: 01-12-2025 End: 01-12-2025 Professional / ancillary services management 01/12/2025 4:00 PM EDT Ancillary Procedure [facility] [address] [facility] [address] [place] [address] [facility] Start: 01-09-2025 End: 01-09-2025 Patient encounter procedure 01/09/2025 4:00 PM EDT Routine [facility] [address] [facility] [place] [phone] Darío Banuelos, CNM [address] [place] [address] [facility] Start: 01-06-2025 Hemoglobin A1c measurement Diabetes: Hemoglobin A1C [facility] Start: 01-05-2025 End: 01-05-2025 Professional / ancillary services management 01/05/2025 9:15 AM EDT Ancillary Procedure [facility] [address] [facility] [address] [place] [phone] [facility] Start: 01-03-2025 Urine screening for protein Diabetes: Urine Protein Screening [facility] Start: 01-02-2025 End: 01-02-2025 Patient encounter procedure 01/02/2025 4:00 PM EDT Routine [facility] [address] [facility] [place] [address] Darío Banuelos, CNM [address] [facility] [place] [address] [facility] Start: 01-01-2025 End: 01-01-2025 Patient encounter procedure 01/01/2025 4:30 PM EDT Routine [facility] [address] [facility] [place] [address] Darío Banuelos, CNM [address] [place] [address] [facility] Start: 12-29-2024 End: 12-29-2024 Professional / ancillary services management 12/29/2024 4:00 PM EDT Ancillary Procedure [facility] [address] [place] [address] [facility] Start: 12-26-2024 End: 12-26-2024 Patient encounter procedure 12/26/2024 4:00 PM EDT Routine [facility] [address] [facility] [place] [address] Darío Banuelos, CNM [address] [place] [address] [facility] Start: 12-26-2024 End: 12-26-2025 [...] Ancillary Procedure [facility] [address] [place] [phone] [facility] Start: 12-11-2024 End: 12-11-2024 [...] [address] [place] [address] Awilda Delatorre DO [address] [place] [address] [facility] Start: 11-15-2024 End: 11-15-2024 Patient encounter procedure 11/15/2024 4:30 PM EDT Routine [facility] [address] [place] [address] Darío Banuelos, SADIA [address] [facility] [place] [address] Arrived [facility] Comment on above: Arrived Start: 11-15-2024 End: 11-15-2025 US for US OB follow up transabdominal approach Imaging Routine related condition in third trimester Expected: 11/15/2024, Expires: 11/15/2025 [facility] Work Phone: Comment on above: Expected: 11/15/2024 , Expires: 11/15/2025 Start: 11-08-2024 End: 11-08-2024 Patient encounter procedure 11/08/2024 9:30 AM EDT Office Visit [facility] [address] [phone] Aye Saucedo MD [address] [place] [address] Tricia Rowland MD [address] [place] [address] [facility] Start: 10-31-2024 End: 10-31-2024 Patient encounter procedure 10/31/2024 8:00 AM EDT Appointment [facility] [address] [place] [address] [facility] Start: 10-18-2024 End: 10-18-2024 Patient encounter procedure [facility] Comment on above: Arrived Start: 10-10-2024 Hemoglobin A1c measurement Diabetes: Hemoglobin A1C [facility] Start: 10-10-2024 End: 10-10-2024 Telemedicine consultation with patient 10/10/2024 11:30 AM EST Telemedicine [facility] [address] [place] [phone] Clarke Modi MD [address] [place] [address] [facility] Start: 10-09-2024 End: 10-09-2024 Patient encounter procedure 10/09/2024 3:45 PM EST Office Visit [facility] [address] [place] [phone] Awilda Delatorre DO [address] [place] [address] [facility] Start: 10-03-2024 End: 10-03-2024 Patient encounter procedure 10/03/2024 10:00 AM EST Appointment [facility] [address] [place] [phone] [facility] Start: 09-28-2024 End: 09-28-2024 Patient encounter procedure [facility] Comment on above: Arrived Start: 09-25-2024 End: 09-25-2024 Patient encounter procedure 09/25/2024 8:30 AM EST Appointment [facility] [address] [place] [address] [facility] Start: 09-19-2024 End: 09-19-2024 Patient encounter procedure 09/19/2024 8:15 AM EST Office Visit [facility] [address] [place] [phone] Jacque Schneider MD [address] [place] [address] [facility] Start: 09-11-2024 End: 09-11-2024 Patient encounter procedure 09/11/2024 8:00 AM EST Office Visit [facility] [address] [place] [address] Clarke Modi MD [address], [address] [place] [address] [facility] Start: 09-08-2024 Hemoglobin A1c measurement Diabetes: Hemoglobin A1C [facility] Start: 08-30-2024 End: 08-30-2024 Patient encounter procedure 08/30/2024 4:30 PM EST Office Visit [facility] [address] [place] [phone] Darío Banuelos, CATHIEM [address] [place], [place] [address] [facility] Start: 08-23-2024 End: 08-23-2024 Telemedicine consultation with patient 08/23/2024 2:00 PM EST Telemedicine [facility] [address] [facility] [place] [phone] Ariella Roberto, HOSE HANDLER-CHHA [address] [facility] [place] [address] [facility] Start: 08-14-2024 End: 11-12-2024 Protein creat ratio Protein creat ratio Lab Routine with type 2 diabetes mellitus in second trimester Expected: 08/14/2024 (Approximate), Expires: 11/12/2024 [facility] Comment on above: Expected: 08/14/2024 (Approximate), Expires: 11/12/2024 Start: 08-14-2024 End: 08-14-2024 Patient encounter procedure 08/14/2024 11:00 AM EST Office Visit [facility] [address] [facility] [place] [phone] Svetlana Jack, PAAnnitaC [address] [place] [address] [facility] Start: 08-14-2024 End: 08-14-2024 ambulatory 08/14/2024 8:30 AM EST Support Visit [facility] [address] [place] [address] Shauna Denny RN [address], [address] [place] [address], [place] [address], [address] [place] [address], [place] [address] [facility] Start: 08-03-2024 End: 08-03-2024 Patient encounter procedure 08/03/2024 8:30 AM EST Routine [facility] [address] [place] [phone] Darío Banuelos, [facility] [address] [place] [address] Arrived [facility] Comment on above: Arrived Start: 07-10-2024 End: 07-10-2024 Patient encounter procedure 07/10/2024 3:45 PM EST Routine [facility] [address] [place] [phone] Darío Banuelos, [facility] [address] [place] [address] Arrived [facility] Comment on above: Arrived Start: 05-30-2024 Hemoglobin A1c measurement Diabetes: Hemoglobin A1C [facility] Start: 05-30-2024 End: 05-30-2024 Patient encounter procedure 05/30/2024 8:45 AM EDT Office Visit [facility] [address] [place] [address] Awilda Delatorre, DO [address] [place] [address] [facility] [address] Start: 04-16-2024 Influenza vaccination [facility] Start: 09-06-2019 DTaP,Tdap and Td Vaccines (8 - Td or Tdap) DTaP,Tdap and Td Vaccines (8 - Td or Tdap) [facility] Start: 04-16-2019 Influenza vaccination Flu vaccine (# 1) [place], [place] Start: 2016 Cervical cancer screen Cervical canc er screen [place], [place] Start: 2016 Screening for malign ant neoplasm of cervix Pap Smear [facility] Start: 2014 DTaP,Tdap and Td Vaccines (1 - Tdap) DTaP,Tdap and Td Vaccines (1 - Tdap) [facility] Start: 2014 Urine screening for protein Diabetes: Urine Protein Screening [facility] Start: 2013 Adult BMI Follow Up Plan Adult BMI Follow Up Plan [facility] Start: 2013 Adult BMI Screening Adult BMI Screen ing [facility] Start: 2013 Diabetic foot examination Diabetic Foot Exam [facility] Start: 2011 Chlamydia screen Chlamydia screen [place], [place] Start: 2010 HIV screen HIV screen [place], [place] Start: 2007 Depression Screening Depression Scre ening [facility] Start: 2007 Tobacco Screening Tobacco Screening [facility] Start: 2006 DTaP/Tdap/Td vaccine (1 - Tdap) DTaP/Tdap/Td vaccine (1 - Tdap) [place], [place] Start: 2006 HPV vaccine (1 - Fem tarun 2-dose series) HPV vaccine (1 - Female 2-dose series) [place], [place] Start: 2005 Glaucoma screening Diabetes: R etinopathy Screening [facility] Start: 1996 Varicella Vaccine (1 of 2 - 2-dose childhood series) Varicella Vaccine (1 of 2 - 2-dose childhood series) [place], [place] Start: 1995 Glaucoma screening Diabetic Op hthalmology Exam [facility] Start: 1995 Urine screening for protein Urine Microalbumin [facility] End: 08-14-2025 Comprehensive metabolic 2000 panel - Serum or Plasma Comprehensive metabolic panel Lab Routine with type 2 diabetes mellitus in second trimester 1 Occurrences starting 08/14/2024 until 08[facility]14[facility] Comment on above: 1 Occurrences starti ng 08/14/2024 until 08/14/2025 End: 08-14-2025 ECG 12 lead ECG 12 lead ECG Routine with type 2 diabetes mellitus in second trimester Long Q-T syndrome 1 Occurrences starting 08/14/2024 until 08/14/2025 [facility] Comment on above: 1 Occurrences starti ng 08/14/2024 until 08/14/2025 End: 08-14-2025 Thyroid profile includes TSH FT4 Thyroid profile includes TSH FT4 Lab Routine with type 2 diabetes mellitus in second trimester 1 Occurrences starting 08/14/2024 until 08/14/2025 [facility] Comment on above: 1 Occurrences starti ng 08/14/2024 until 08/14/2025 Immunizations Immunization Date Immunization Notes Care Provider Marilee hicks 09-06-2009 tetanus toxoid, redu keron diphtheria toxoid, and acellular pertussis vaccine, adsorbed [facility] Work Phone: [facility] 08-25-2007 meningococcal polysaccharide (groups A, C, Y and W-135) diphtheria toxoid conjugate vaccine (MCV4P) [facility] Work Phone: [facility] 08-25-2007 tetanus toxoid, redu keron diphtheria toxoid, and acellular pertussis vaccine, adsorbed Darío [facility] Work Phone: [facility] 08-25-2007 varicella virus vaccine [place] gabbie [facility] Work Phone: [facility] 09-06-2000 diphtheria, tetanus toxoids and acellular pertussis vaccine, unspecified formulation Darío [facility] Work Phone: [facility] 09-06-2000 measles, mumps and r ubella virus vaccine Darío Floro CNM Work Phone: [facility] 09-06-2000 poliovirus vaccine, unspecified formulation Darío Floro CNM Work Phone: [facility] 12-24-1996 varicella virus vaccine [place] Floro CNM Work Phone: [facility] 10-12-1996 diphtheria, tetanus toxoids and acellular pertussis vaccine, unspecified formulation Darío Floro CNM Work Phone: [facility] 10-12-1996 haemophilus influenz ae type b vaccine, conjugate unspecified formulation Darío Floro CNM Work Phone: [facility] 10-12-1996 measles, mumps and r ubella virus vaccine Darío Floro CNM Work Phone: [facility] 02-25-1996 diphtheria, tetanus toxoids and acellular pertussis vaccine, unspecified formulation Darío Floro CN Work Phone: [facility] 02-25-1996 haemophilus influenz ae type b vaccine, conjugate unspecified formulation Darío Floro CNM Work Phone: [facility] 02-25-1996 hepatitis B vaccine, pediatric or pediatric/adolescent dosage Darío Floro CNM Work Phone: [facility] 02-25-1996 poliovirus vaccine, unspecified formulation Darío Floro CN Work Phone: [facility] 1995 diphtheria, tetanus toxoids and acellular pertussis vaccine, unspecified formulation Darío Floro CNM Work Phone: [facility] 1995 haemophilus influenz ae type b vaccine, conjugate unspecified formulation Darío Floro CNM Work Phone: [facility] 1995 poliovirus vaccine, unspecified formulation Darío Floro CNM Work Phone: [facility] 1995 diphtheria, tetanus toxoids and acellular pertussis vaccine, unspecified formulation Darío Floro CNM Work Phone: [facility] 1995 haemophilus influenz ae type b vaccine, conjugate unspecified formulation Darío Floro CNM Work Phone: [facility] 1995 hepatitis B vaccine, pediatric or pediatric/adolescent dosage Darío Floro CNM Work Phone: [facility] 1995 poliovirus vaccine, unspecified formulation Darío Floro CNM Work Phone: [facility] 1995 hepatitis B vaccine, pediatric or pediatric/adolescent dosage Darío Floro CNM Work Phone: [facility] [employer] Payers Date Payer Category Payer Unknown BCBS BCBS OUT OF STATE xxxxxxxxxxxx 2019-Present [address] [place] [address] xxxxxxxxxxxx [id number] 2019 [facility] BCBS [id number] 2019 [facility] Managed Care - Other [id number] 2019 Unknown [id number] 2016 Unknown [id number] [id number]. [id number] 1995 Unknown [id number] 2.16.840.1.394112.3.579.2. 173 1995 Unknown [id number] 2.16.840.1.594752.3.579.2. 1286 1995 Unknown [id number] 2.16.840.1.952945.3.579.2. 6 1995 Unknown [id number] 2.16.840.1.567263.3.579.2. 1286 1995 Unknown [id number] 2.16.840.1.855469.3.579.2. 1285 1995 Unknown [id number] 2.16.840.1.136079.3.579.2. 128 1995 Unknown [id number] 2.16.840.1.678062.3.579.2. 1285 1995 Unknown [id number] 2.16.840.1.619943.3.579.2. 1285 1995 Unknown [id number] 2.16.840.1.926417.3.579.2. 128 1995 Unknown [id number] 2.16.840.1.153593.3.579.2. 1285 1995 Unknown [id number] 2.16.840.1.506443.3.579.2. 1285 1995 Unknown [id number] 2.16.840.1.654561.3.579.2. 1285 1995 Unknown [id number] 2.16.840.1.966306.3.579.2. 9 1995 Unknown [id number] 2.16.840.1.665918.3.579.2. 9 1995 Unknown [id number] 2.16.840.1.373851.3.579.2. 9 1995 Unknown [id number] 2.16.840.1.555747.3.579.2. 9 1995 Unknown [id number] 2.16.840.1.571576.3.579.2. 1259 1995 Unknown [id number] 2.16.840.1.094751.3.579.2. 9 1995 Unknown [id number] 2.16.840.1.669192.3.579.2. 9 1995 Unknown [id number] 2.16.840.1.237703.3.579.2. 1258 1995 Unknown [id number] 2.16.840.1.672077.3.579.2. 1258 1995 Unknown [id number] 2.16.840.1.860200.3.579.2. 1258 1995 Unknown [id number] 2.16.840.1.726783.3.579.2. 1258 1995 Unknown [id number] 2.16.840.1.973163.3.579.2. 1258 1995 Unknown [id number] 2.16.840.1.062271.3.579.2. 9 1995 Unknown [id number] 2.16.840.1.696119.3.579.2. 9 1995 Unknown [id number] 2.16.840.1.202030.3.579.2. 9 1995 Unknown [id number] 2.16.840.1.045709.3.579.2. 9 1995 Unknown [id number] 2.16.840.1.969860.3.579.2. 1258 1995 Unknown [id number] 2.16.840.1.122337.3.579.2. 9 Social History Date Type Detail [facility] Start: 1995 Sex Assigned At Not on file [place], [place] Start: 02-10-2023 End: 07-25-2024 Tobacco smoking status NHIS Never smoked tobacco [facility] Start: 02-10-2023 End: 07-25-2024 Tobacco use and [...] to any clubs or organizations such as amish groups, unions, fraSplurgy or athletic groups, or school groups? Yes [...] End: 11-09-2024 Alcoholic beverage intake [facility] Start: 03-19-2015 End: 07-25-2024 Sex Female (finding) [facility] Medical Equipment Procedure Code Equipment Code Equipment Origin al Text Equipment Identifier Dates [id number] Start: 11-29-2023 End: 11-28-2024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 Primary documented in this encounter [facility]* Diagnosis Long Q-T syndrome- Primary Long QT syndrome Hx of prolonged Q-T interval on ECG documented in this encounter [facility]* Diagnosis Type 2 [...] (GDM) requiring insulin documented in this encounter [facility]* Diagnosis Type 2 diabetes mellitus [...] in second trimester documented in this encounter [facility]* Diagnosis Type 2 diabetes mellitus [...] in third trimester documented in this encounter [facility]* Diagnosis Type 2 diabetes mellitus [...] in third trimester documented in this encounter [facility]* Diagnosis Type 2 diabetes mellitus [...] Type 2 diabetes mellitus treated with insulin ([facility]) documented in this encounter [facility]* Diagnosis Type 2 diabetes mellitus [...] Type 2 diabetes mellitus treated with insulin ([facility])- Primary Encounter for care of first , third trimester documented in this encounter [facility]* Diagnosis Type 2 diabetes mellitus [...] encounter [facility]Not on filedocumented in this [facility] SystemInstructionsNot on filedocumented in this [facility] SystemInstructionsNot on filedocumented in this encounterMer[facility] SystemInstructionsNot on filedocumented in this [facility] InstructionsNot on filedocumented in this [facility] System InstructionsNot on filedocumented in this [facility] System InstructionsNot on filedocumented in this [facility] System InstructionsNot on filedocumented in this encounterMer[facility] InstructionsNot on filedocumented in this encounterMer[facility] InstructionsNot on filedocumented in this encounterMer[facility] InstructionsNot on filedocumented in this encounterMer[facility] Advance Directives No Advanced Directives Records FoundDocuments on File Type Date Recorded Patient Supervisor Opening And Picking Expl anation Advance Directives and Living Will Power of Tool Repairer Bench Summary Purpose Family History No Family History Records FoundNo Family History Records FoundNo Family History Records FoundNo Family History Records FoundNo Family History Records Found Additional Source Comments INFORMATION SOURCE (unrecogn ized section and content) DATE CREATED AUTHOR 07/06/2019 Randi Moore [facility] DATE CREATED AUTHOR AUTHOR'S ORGANIZ ATION 08/14/2024 [facility] DATE CREATED AUTHOR AUTHOR'S ORGANIZ ATION 10/12/2024 [facility] DATE CREATED AUTHOR AUTHOR'S ORGANIZ ATION 11/09/2024 [facility] DATE CREATED AUTHOR AUTHOR'S ORGANIZ ATION 01/16/2025 [facility] Specialists EPIC Reason for Visit (unrecogniz ed section and content) Reason Comments Diabetes Reason Comments Type 2 Diabetes affecting Specialty Diagnoses / Procedures Referred By Michael felton Referred To Contact Maternal and Medicine Diagnoses Pre-existing type 2 diabetes mellitus in in first trimester Darío Banuelos, HOSE HANDLER-CNM [address] [place] [address] Phone: tel: fax: Maternal- Medicine at [facility] [address] [place] [address] Phone: tel: fax: Referral ID Status Reason Start Date Expiration Date Visits Requested Visits Authorized [id number] Pending Review Specialty Services Required 4 07/25/2025 1 1 Reason Comments T2DM Reason Comments Gestational Diabetes Reason Comments Type 2 Diabetes Reason Comments New Patient MEAT LOINER REF - Long Q-T sy ndrome SEEN CARDIO A CHILD 10 + YRS AGO SCHED W/PT Specialty Diagnoses / Procedures Referred By Contac t Referred To Contact Cardiology Diagnoses Long Q-T syndrome Svetlana Jack, PAAnnitaC [address] [address] Phone: tel: fax: [facility] [address] [place] [address] Phone: tel: fax: Referral ID Status Reason Start Date Expiration Date Visits Requested Visits Authorized [id number] Pending Review Specialty Services Required 4 08/14/2025 1 1 Reason Comments New Patient MEAT LOINER - ref by RRK for long QT syndrome - no labs/testing - appt sched w/ pt PATIENT IS 25 WEEKS Specialty Diagnoses / Procedures Referred By Contac t Referred To Contact Cardiology Diagnoses Long Q-T syndrome Aye Saucedo MD [address] [place] [address] Phone: tel: fax: [facility] [address] [place] [address] Phone: tel: fax: Referral ID Status Reason Start Date Expiration Date Visits Requested Visits Authorized [id number] Pending Review Specialty Services Required 09/19/2024 09/19/2025 1 1 Reason Comments Consult Patient is a Wanda Donnell ro referral to Dr. Sam for Type II diabetes insulin required. Specialty Diagnoses / Procedures Referred By Michael t Referred To Contact Obstetrics and Gynecology Diagnoses with type 2 diabetes mellitus in third trimester Procedures [place] OFFICE/OUTPATIENT NEW HIGH MDM 60 MINUTES Darío Banuelos CNM [address] [place] [address] Phone: tel: fax: Henry Sam, [address] [facility] [place] [address] Phone: tel: fax: Referral ID Status Reason Start Date Expiration Date V isits Requested Visits Authorized [id number] Closed Specialty Services Required 12/20/2024 06/18/2025 1 1 Care Teams (unrecognized sec tion and content) Real Estate Acquisition Analyst Relationship Specialty Start Date End Date Unallocated, Noms ProviderMD [address] [place] [address] PCP - General 04/16/23 Awilda Delatorre, DO [address] [address] PCP - [employer] [employer] 06/16/23 Darío Banuelos CNM [address] [place] [address] Obstetrics and Gynecology 02/10/23 Real Estate Acquisition Analyst Relationship Specialty Start Date End Date Unallocated, Danay Biggs MD [address] [place] [address] PCP - General 04/16/23 Awilda Delatorre, [address] [facility] [address] [place] [address] PCP - [employer] [employer] 06/16/23 Darío Banuelos CNM [address] [place] [facility] [place] [address] Obstetrics and Gynecology 02/10/23 Real Estate Acquisition Analyst Relationship Specialty Start Date End Date Unallocated, Noms Provider, [address] [place] [address] PCP - General 04/16/23 Awilda Delatorre, DO [address] [place] [address] [place] [address] PCP - [employer] [employer] 06/16/23 Darío Banuelos CNM [address] [place] [facility] [place] [address] Obstetrics and Gynecology 02/10/23 Real Estate Acquisition Analyst Relationship Specialty Start Date End Date Unallocated, Noms ProviderMD [address] [place] [address] PCP - General 04/16/23 Awilda Delatorre, DO [address] [place] [address] [place] [address] PCP - [employer] 06/16/23 Darío Banuelos CNM [address] [place] [facility] [place] [address] Obstetrics and Gynecology 02/10/23 Real Estate Acquisition Analyst Relationship Specialty Start Date End Date Darío Banuelos APRN-CNM [address] [facility] [place] [address] PCP - General Nurse Working Supervisor 04/15/18 Real Estate Acquisition Analyst Relationship Specialty Start Date End Date Darío Banuelos APRN-CNM [address] [place] [address] PCP - General Nurse Working Supervisor 04/15/18 Real Estate Acquisition Analyst Relationship Specialty Start Date End Date Darío Banuelos APRN-[facility] [address] [place] [address] PCP - General Nurse Working Supervisor 04/15/18 Real Estate Acquisition Analyst Relationship Specialty Start Date End Date [facility] [address] [place] [address] PCP - General Nurse Working Supervisor 04/15/18 Real Estate Acquisition Analyst Relationship Specialty Start Date End Date Darío [facility]os [facility] [address] [place] [address] PCP - General Nurse Working Supervisor 04/15/18 Real Estate Acquisition Analyst Relationship Specialty Start Date End Date Unallocated, Noms Provider, [address] [place] [address] PCP - General 04/16/23 Awilda Delatorre DO [address] [facility] [address] [place] [address] PCP - [employer] [employer] 06/16/23 Darío Banuelos CNM [address] [place] [address] Obstetrics and Gynecology 02/10/23 Real Estate Acquisition Analyst Relationship Specialty Start Date End Date Darío Banuelos APRN-[facility] [address] [place] [address] PCP - General Nurse Working Supervisor 04/15/18 Real Estate Acquisition Analyst Relationship Specialty Start Date End Date Darío Banuelos APRN-CN [address] [facility] [place] [address] PCP - General Nurse Working Supervisor 04/15/18 Real Estate Acquisition Analyst Relationship Specialty Start Date End Date Darío Banuelos APRN-CN [address] [facility] [place] [address] PCP - General Nurse Working Supervisor 04/15/18 Real Estate Acquisition Analyst Relationship Specialty Start Date End Date Darío Banuelos HOSE HANDLER-CN [address] [facility] [place] [address] PCP - General Nurse Working Supervisor 04/15/18 Real Estate Acquisition Analyst Relationship Specialty Start Date End Date Unallocated, Noms ProviderMD [address] [place] [address] PCP - General 04/16/23 Awilda Delatorre, DO [address] [place] [address] PCP - [employer] 06/16/23 Darío Banuelos CNM [address] [place] [address] Obstetrics and Gynecology 02/10/23 Real Estate Acquisition Analyst Relationship Specialty Start Date End Date Unallocated, Danay Biggs MD [address] [place] [address] PCP - General 04/16/23 Awilda Delatorre, DO [address] [place] [address] [place] [address] PCP - [employer] 06/16/23 Darío Banuelos CNM [address] [place] [address] Obstetrics and Gynecology 02/10/23 Real Estate Acquisition Analyst Relationship Specialty Start Date End Date Unallocated, Danay Biggs MD [address] [facility] [place] [address] PCP - General 04/16/23 Awilda Delatorre, DO [address] [place] [address] PCP - [employer] [employer] 06/16/23 Darío Banuelos CNM [address] [place] [address] Obstetrics and Gynecology 02/10/23 Real Estate Acquisition Analyst Relationship Specialty Start Date End Date Darío Banuelos APRNSADIA [address] [place] [address] PCP - General Nurse Working Supervisor 04/15/18 Real Estate Acquisition Analyst Relationship Specialty Start Date End Date Darío Banuelos APRNSADIA [address] [place] [address] PCP - General Nurse Working Supervisor 04/15/18 Real Estate Acquisition Analyst Relationship Specialty Start Date End Date Unallocated, Danay Biggs MD [address] [place] [address] PCP - General 04/16/23 Awilda Delatorre, DO [address] [facility] [address] [place] [address] PCP - [employer] 06/16/23 Darío Banuelos CNM [address] [place] [address] Obstetrics and Gynecology 02/10/23 Real Estate Acquisition Analyst Relationship Specialty Start Date End Date Unallocated, Danay Biggs MD [address] [place] [address] PCP - General 04/16/23 Awilda Delatorre, DO [address] [place] [address] PCP - [employer] 06/16/23 Darío Banuelos CNM [address] [place] [facility] [place] [address] Obstetrics and Gynecology 02/10/23 Real Estate Acquisition Analyst Relationship Specialty Start Date End Date Unallocated, Danay Biggs MD [address] [place] [address] PCP - General 04/16/23 Awilda Delatorre, DO [address] [place] [address] PCP - [employer] 06/16/23 Darío Banuelos CNM [address] [place] [address] Obstetrics and Gynecology 02/10/23 Real Estate Acquisition Analyst Relationship Specialty Start Date End Date Unallocated, MD [place] [place] [place] [address] PCP - General 04/16/23 Darío Banuelos CNM [address] [place] [facility] [place] [address] Obstetrics and Gynecology 02/10/23 Real Estate Acquisition Analyst Relationship Specialty Start Date End Date Unallocated, MD [address] [place] [place] [address] PCP - General 04/16/23 Darío Banuelos CNM [address] [place] [address] Obstetrics and Gynecology 02/10/23 Real Estate Acquisition Analyst Relationship Specialty Start Date End Date Unallocated, Danay Biggs MD [address] [place] [address] PCP - General 04/16/23 Darío Banuelos CNM [address] [place] [address] Obstetrics and Gynecology 02/10/23 Real Estate Acquisition Analyst Relationship Specialty Start Date End Date Unallocated, Danay Biggs MD [address] [place] [address] PCP - General 04/16/23 Darío Banuelos CNM [address] [place] [address] Obstetrics and Gynecology 02/10/23 Real Estate Acquisition Analyst Relationship Specialty Start Date End Date Unallocated, Danay Bigsg MD [address] [place] [address] PCP - General 04/16/23 Darío Banuelos CNM [address] [place] [address] Obstetrics and Gynecology 02/10/23 Real Estate Acquisition Analyst Relationship Specialty Start Date End Date Unallocated, Danay Biggs MD [address] [place] [address] PCP - General 04/16/23 Darío Banuelos CNM [address] [place] [address] Obstetrics and Gynecology 02/10/23 Real Estate Acquisition Analyst Relationship Specialty Start Date End Date Unallocated, Danay [place]gs [place] [address] PCP General 04/16/23 Darío Banuelos CNM [address] [place] [address] Obstetrics and Gynecology 02/10/23 Real Estate Acquisition Analyst Relationship Specialty Start Date End Date Unallocated, Danay Biggs MD [address] [place] [address] [facility] 04/16/23 Darío Banuelos CNM [address] [place] [address] Obstetrics and Gynecology 02/10/23 FOR RECORDS PERTAINING [...] BE BASED ON THE PRIMARY CLINICAL RECORDS. [facility]. provides no warranty or guarantee of the accuracy or completeness of information in this document.
--- OUTSIDE RECORDS SUMMARY | 2025-01-19 07:05 | XMS_ITS | Encounter Summary ---
Author Organization [facility] Address [address] [place] [address] Care Team Providers Care Supervisor Assembly Stock Name Role Phone Flaquita Banuelos CNM Unavailable [phone] Unallocated, Noms Provider Primary Care Provi mart Encounter Details Date Type Department Care Team (Late st Contact Info) Description 01/04/2025 Results Follow-Up [facility] OB [address] [place] [address] Flaquita Banuelos, CNM [address] [place], [place] [id number] Social History Tobacco Use Types Packs/Day Years [...] often do you attend chur ch or jehovah's witness services? More than 4 times per year [...] Recorded Patient Health Questionnaire-2 Score 0 12/07/2024 [facility]at ional [facility] - [...] PM EDT Routine [facility] OB [address] [place] [address] Flaquita Banuelos, CNM [address] [place] [address] 01/29/2025 4:30 PM EDT Routine [facility] OB [address] [facility] [place] [address] VinFlaquita, CNM [address] [place] [address] 02/06/2025 4:30 PM EDT Routine [facility] OB [address] [facility] [place] [address] Flaquita Banuelos, CNM [address] [place] [address] 02/12/2025 4:30 PM EDT Routine [facility] OB [address] [facility] [place] [address] Flaquita Banuelos, CNM [address] [place] [address] 04/17/2025 10:30 AM EDT Office Visit [facility] [address] [place] [address] Awilda Crenshaw, DO [address] [place], [place] [id number] documented as of this encounter Visit Diagnoses Not on filedocumented in this encounter Care Teams Supervisor Assembly Stock Relationship Specialty Start Date End Date Unallocated, Noms Provider, [place] [address] PCP - General 04/16/23 Flaquita Banuelos CNM [facility]9 [place] [address] Obstetrics and Gynecology 02/10/23 documented as of this encounter
--- OUTSIDE RECORDS SUMMARY | 2025-01-19 07:05 | XMS_ITS | Encounter Summary ---
Author Organization [facility] Address [address] [place] [address] Care Team Providers Care Raise Driller Name Role Phone Flaquita Banuelos CNM Unavailable [phone] Unallocated, Noms Provider Primary Care Provi mart Encounter Details Date Type Department Care Team (Late st Contact Info) Description 12/20/2024 Results Follow-Up [facility] OB [address] [place] [address] Flaquita Banuelos, CNM [address] [place], [place] [id number] Social History Tobacco Use Types Packs/Day Years [...] often do you attend chur ch or mandaeism services? More than 4 times [...] Recorded Patient Health Questionnaire-2 Score 0 12/07/2024 [facility] of Occupat ional Health - Occupational [...] any time in the past 12 m [facility], were you homeless or [...] PM EDT Routine [facility] OB [address] [place] [address] Flaquita Banuelos, CNM [address] [facility] [place] [address] 01/29/2025 4:30 PM EDT Routine [facility] OB [address] [facility] [place] [address] VinFlaquita, CNM [address] [facility] [place] [address] 02/06/2025 4:30 PM EDT Routine [facility] OB [address] [facility] [place] [address] Flaquita Banuelos, CNM [address] [facility] [place] [address] 02/12/2025 4:30 PM EDT Routine [facility] OB [address] [facility] [place] [address] Flaquita Banuelos, CNM [address] [facility] [place] [address] 04/17/2025 10:30 AM EDT Office Visit [facility] FM [address] [place] [address] Awilda Crenshaw, DO [address] [place], [place] [phone] documented as of this encounter Visit Diagnoses Not on filedocumented in this encounter Care Teams Raise Driller Relationship Specialty Start Date End Date Unallocated, Noms Provider, [place] [address] PCP - General 04/16/23 Flaquita Banuelos CNM [facility]9 [facility] [place] [address] Obstetrics and Gynecology 02/10/23 documented as of this encounter
--- OUTSIDE RECORDS SUMMARY | 2025-01-19 07:05 | XMS_ITS | Clinical Summary ---
Author Organization [facility] Address [address] [place] [address] Care Team Providers Care Business Area Director Name Role Phone Flaquita Banuelos CNM Unavailable [phone] Unallocated, [facility] Provider MD Primary Care Provi mart Allergies [...] 50 units) 15 mL 3 5 Active ferrous sulfate [...] 60 capsule 5 04/27/20 25 Active insulin NPH, Isophane, (HumuLIN N KWIKPEN) 100 UNIT/ML injection 8 units am and 14 units pm 15 mL 5 Active insulin NPH, Isophane, (HumuLIN N KWIKPEN) 100 UNIT/ML injection 10 units am and 17 units pm 15 mL 3 5 01/19/20 25 Discontinu ed(Dose adjustment ) ferrous sulfate [...] in third trimester 09/01/2024 Assessment & Plan (01/18/2025 10:17 AM EDT): Continue to check fasting and PP readings with goals of fasting < 95 mg/dl, 1hr < 140 mg/dl, 2 hr < 120 mg/dl. She is to call with any problems or not improving. Send BG readings on a weekly basis. 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 Assessment & Plan (12/07/2024 8:37 AM EDT): [...] Encounters Date Type Department Care Team Description 01/18/2025 8:30 AM EDT Office Visit [facility] [address] [place] [address] Awilda Crenshaw, DO with type 2 diabetes mellitus in third trimester 01/18/2025 Travel 01/15/2025 4:30 PM EDT Routine [facility] OB [address] [place] [address] Flaquita Banuelos, SADIA Type 2 diabetes mellitus without complication, without long-term current use of insulin (Primary Dx); with type 2 diabetes mellitus in third trimester 01/15/2025 Bamboo flowsheet [facility] OB [address] [facility] [place] [address] Flaquita Banuelos, SADIA 01/12/2025 Telephone [facility] OB [address] [place] [address] Estelle Hughes LPN 01/12/2025 Clinisync Result Encounter NOMS External Department Unsolicited Nick Sam, DO 01/12/2025 Clinisync Result Encounter NOMS External Department Unsolicited Nick Sam, DO 01/09/2025 4:00 PM EDT Routine [facility] OB [address] [facility] [place] [address] Flaquita Banuelos CNM Type 2 diabetes mellitus treated with insulin ([facility]) (Primary Dx); Encounter for care of first , third trimester 01/09/2025 Bamboo flowsheet [facility] OB [address] [facility] [place] [address] Flaquita Banuelos CNM 01/05/2025 Clinisync Result Encounter NOMS External Department Unsolicited Nick Sam, DO 01/05/2025 Orders Only [facility] OB [address] [facility] [place] [address] Flaquita Banuelos, SADIA with type 2 diabetes mellitus in third trimester 01/04/2025 Results Follow-Up [facility] OB [address] [facility] [place] [address] Flaquita Banuelos CNM 01/01/2025 4:30 PM EDT Routine [facility] OB [address] [facility] [place] [address] Flaquita Banuelos, SADIA Screening for iron deficiency anemia (Primary Dx); Dysuria 01/01/2025 Bamboo flowsheet [facility] OB [address] [facility] [place] [address] Flaquita Banuelos CNM 01/01/2025 Travel 12/29/2024 Clinisync Result Encounter NOMS External Department Unsolicited Nick Sam DO 12/28/2024 Refill [facility] OB [address] [facility] [place] [address] Abby Saul MA Anemia during in third trimester 12/27/2024 Results Follow-Up [facility] OB [address] [facility] [place] [address] Abby Saul MA 12/27/2024 Refill [facility] OB [address] [facility] [place] [address] Abby Saul MA Anemia during in third trimester 12/26/2024 4:00 PM EDT Routine [facility] OB [address] [facility] [place] [address] Flaquita Banuelos, CATHIE with type 2 diabetes mellitus in third trimester (Primary Dx); Screening for iron deficiency anemia; Type 2 diabetes mellitus treated with insulin ([facility]) 12/26/2024 Bamboo flowsheet [facility] [address] [facility] [place] [address] Flaquita Banuelos CNM 12/25/2024 10:20 AM EDT Consult [facility] OB [address] [facility] [place] [address] Nick Sam, with type 2 diabetes mellitus in third trimester 12/25/2024 Travel 12/25/2024 Bamboo flowsheet [facility] [address] [facility] [place] [address] Nick Sam, 12/20/2024 Results Follow-Up [facility] OB [address] [facility] [place] [address] Flaquita Banuelos CNM 12/20/2024 Orders Only [facility] OB [address] [facility] [place] [address] Flaquita Banuelos CNM with type 2 diabetes mellitus in third trimester 12/11/2024 4:30 PM EDT Ancillary Procedure [facility]TRAS[facility] [address] [address] [address] [place] [address] related condition in third trimester 12/11/2024 4:00 PM EDT Routine [facility] OB [address] [facility] [place] [address] Flaquita Banuelos CNM with type 2 diabetes mellitus in third trimester 12/11/2024 Bamboo flowsheet [facility] OB [address] [facility] [place] [address] Flaquita Banuelos CNM 12/11/2024 Travel 12/07/2024 8:15 AM EDT Office Visit [facility] [address] [place] [address] Awilda Crenshaw, with type 2 diabetes mellitus in third trimester (Primary Dx); with type 2 diabetes mellitus in second trimester 12/07/2024 Abstract [facility] [address] [place] [address] Unallocated, Danay Biggs MD 12/07/2024 Travel 12/04/2024 Travel 11/30/2024 Abstract [facility] [address] [place] [address] Awilda Crenshaw DO 11/30/2024 Travel 11/29/2024 Telephone [facility] [address] [place] [address] Bonny Garcia LPN BG readings 11/15/2024 4:30 PM EDT Routine [facility] OB [address] [facility] [place] [address] Flaquita Banuelos CNM Encounter for care of first , second trimester (Primary Dx); related condition in third trimester; Gestational diabetes mellitus (GDM) requiring insulin 11/15/2024 Bamcruzo flowsheet [facility] OB [address] [place] [address] Vin Flaquita SAIDA Mccoy 11/14/2024 Travel 11/10/2024 Abstract [facility] [address] [place] [address] Awilda Crenshaw, DO 11/03/2024 Abstract [facility] [address] [place] [address] Awilda Crenshaw, DO 10/20/[address] [facility] [address] [id number] Awilda Crenshaw, DO from Last 3 Months Immunizations Immunization Administration [...] How often do you attend chur or advent services? More than 4 times per year 06/07/2024 Do you belong to any clubs o r organizations such as christian groups, unions, fraternal or athletic groups, or [...] Recorded Patient Health Questionnaire-2 Score 0 01/18/2025 [facility]at [facility] - Occupational Stress Questionnaire Answer [...] any time in the past 12 m [facility], were you homeless or living in a [...] Mass Index 34.44 01/18/2025 8:28 AM EDT Plan of Treatment Upcoming Encounters Date Type Department Care Team (Late st Contact Info) Description 01/22/2025 4:30 PM EDT Routine [facility] OB [address] [place] [address] Flaquita Banuelos, [facility] [address] [place] [address] 01/29/2025 4:30 PM EDT Routine [facility] OB [address] [facility] [place] [address] Flaquita Banuelos, [facility] [address] [place] [address] 02/06/2025 4:30 PM EDT Routine [facility] OB [address] [facility] [place] [address] Flaquita Banuelos, [facility] [address] [place] [address] 02/12/2025 4:30 PM EDT Routine [facility] OB [address] [place] [address] Flaquita Banuelos, CATHIEM [address] [place] [address] 04/17/2025 10:30 AM EDT Office Visit [facility] [address] [place] [address] Awilda Crenshaw, [address] [place] [address] Health Maintenance Due Date Last Done Comments Diabetes: Retinopathy Screening 2005 Influenza Vaccine (Season Ended) 2025 Diabetes: Hemoglobin A1C 04/20/2025 025, 10/09/2024, 07/10/2024, Additional history exists Diabetes: Urine Protein Screening 08/30/2025 025 Procedures Procedure Name Priority Date/Time Associated Diagnosis Comments POCT GLYCOSYLATED HEMOGLOBIN (HGB A1C) Routine 01/18/2025 8:38 AM EDT with type 2 diabetes mellitus in third trimester US OB BPP W NON-STRESS 01/12/2025 12:00 [...] PM EDT related condition in third trimester from Last 3 Months Results * POCT glycosylated hemoglobin (Hb A1C) docked device (01/18/2025 8:38 AM EDT) Hemoglobin A1C 6.1 Blood Venous blood specimen / Unknown 01/18/2025 8:38 AM EDT us Awilda Crenshaw DO POINT OF CARE TEST ENTER/E DIT ORDERABLES Final Result * US OB GROWTH (01/12/2025 12:00 PM EDT) Anatomical Region Laterality Modality Other 01/12/2025 12:0 0 PM EDT Narrative 01/12/2025 12:03 [place] [address] Ultrasound Report Signed Patient: REGINALD REYES MR#: [id number] : 1995 Acct:[id number] Age/Sex: 29 / F ADM Date: 01/12/25 Loc: US Attending Dr: Nick Sam D.O. Ordering Physician: Nick Sam D.O. Date of Service: 01/12/25 Procedure(s): US OB growth Accession Number(s): [id number] cc: Nick Sam D.O.; Physician,Non-Staff [place] [address] Patient Name: REGINALD REYES MRN: [id number] date: 1995 Sex: F [place] [facility] [place] [facility] Accession/Order Number: [id number] Exam Date: 01/12/2025 11:54 Report Date: 01/12/2025 [...] Mcleod M.D. 01/12/2025 12:00 PM Dictation Location: [place] [address] Electronically authenticated by: [id number] Y Date: 01/12/2025 12:00 Dictated By: Elle Mcleod M.D. Signed By: 01/12/25 1203 DD/ 1200 TD/TT: Maintenance Repairman: Procedure Note Radiology, Radiologist, - 01/12/[address] [address] Ultrasound Report Signed Patient: REGINALD REYES MMR#: [id number] : 1995Acct:[id number] Age/Sex: 29 / FADM Date: 01/12/25 Loc: US Attending Dr: Nick Sam D.O. Ordering Physician: Nick Sam D.O. Date of Service: 01/12/25 Procedure(s): US OB growth Accession Number(s): [id number] cc: Nick Sam D.O.; Physician,Non-Staff MCaitlin [place] [id number] Patient Name: REGINALD REYES MRN: [facility]:[id number] date: 1995 Sex: F Assigned [place] [facility] [place] [facility] Accession/Order Number: [id number] Exam Date: 01/12/2025 11:54 Report Date: 01/12/2025 [...] Mcleod M.D. 01/12/2025 12:00 PM Dictation Location: [place] [address] Electronically authenticated by: [id number] Y Date: 2:00 Dictated By: Elle Mcleod M.D. Signed By:01/12/25 1203 DD/ 1200 TD/TT: Maintenance Repairman: us Nick Sam DO [facility] Final Result * US OB BPP W NON-STRESS (01/12/2025 12:00 PM EDT) Only the most recent of3 resultswithin the time period is included. Anatomical Region Laterality Modality Other 01/12/2025 12:0 0 PM EDT Narrative 01/12/2025 12:03 PM EDT [place] [id number] Ultrasound Report Signed Patient: REGINALD REYES MR#: [id number] : 1995 Acct:[id number] Age/Sex: 29 / F ADM Date: 01/12/25 Loc: US Attending Dr: Nick Sam D.O. Ordering Physician: Nick Sam D.O. Date of Service: 01/12/25 Procedure(s): US OB BPP w non-stress Accession Number(s): [id number] cc: Nick Sam D.O.; Physician,Non-Staff Magaly The [address] [address] Patient Name: REGINALD REYES MRN: [id number] date: 1995 Sex: F Assigned [facility] [place] [facility] Accession/Order Number: [id number] Exam Date: 01/12/2025 11:54 Report Date: 01/12/2025 [...] Mcleod M.D. 01/12/2025 12:00 PM Dictation Location: [place] [address] Electronically authenticated by: [id number] Y Date: 01/12/2025 12:00 Dictated By: Elle Mcleod M.D. Signed By: 01/12/25 1203 DD/ 1200 TD/TT: Maintenance Repairman: Procedure Note Radiology, Radiologist, - 01/12/2025 The [facility] [address] [place] [address] Ultrasound Report Signed Patient: REGINALD REYES MMR#: [id number] : 1995Acct:[id number] Age/Sex: 29 / FADM Date: 01/12/25 Loc: US Attending Dr: Nick Sam D.O. Ordering Physician: Nick Sam D.O. Date of Service: 01/12/25 Procedure(s): US OB BPP w non-stress Accession Number(s): [id number] cc: Nick Sam D.O.; Physician,Non-Staff Magaly The [address] [address] Patient Name: REGINALD REYES MRN: [id number] date: 1995 Sex: F Assigned [facility] [place] [facility] Accession/Order Number: [id number] Exam Date: 01/12/2025 11:54 Report Date: 01/12/2025 [...] Mcleod M.D. 01/12/2025 12:00 PM Dictation Location: [place] [address] Electronically authenticated by: [id number] Y Date: 2:00 Dictated By: Elle Mcleod M.D. Signed By:01/12/25 1203 DD/ 1200 TD/TT: Maintenance Repairman: us Nick Flaco DO [facility] Final Result * Urine culture (01/01/2025 5:00 PM EDT) MICRO NUMBER [id number] [facility]ST SPECIMEN QUALITY Adequate QUEST SOURCE: (QUEST) [...] Performing Organization Information Site ID: QPT Name: [employer] [facility] Address: [address] [place] [address], [address] [place] [phone] Director: Devendra Aguilar MD us Flaquita Banuelos [...] Performing Organization Information Site ID: QPT Name: [employer] [facility] Address: [address] [place] [address], [address] [place] [phone] Director: Devendra Aguilar MD us Flaquita Banuelos [...] II, MD, PHD at 12-Dec-2024 07:13:14 PM [facility] Procedure Note Yuli Mccarthy MD - [...] YULI MCCARTHY II, MD, PHD 07:13:14 PM [facility] us Flaquita Banuelos CNM IMG OB US PROCEDURES Final R esult from Last 3 Months Insurance [facility] Care Teams Business Area Director Relationship Specialty Start Date End Date Unallocated, Noms MD Dian [address] [place], [place] [id number] PCP - General 04/16/23 Flaquita Banuelos CNM [address] [facility] [place], [place] [phone] Obstetrics and Gynecology 02/10/23
[2025-01-19 07:31] VITALS: BP 127/72; PULSE 83
== END 2025-01-19 08:17 | disposition home or self-care (01) ==
LOC: US 07:02 → FBC 07:03
PROVIDERS: Visit Provider Obstetrics & Gynecology
DX: O24.113 Pre-existing type 2 diabetes mellitus, in pregnancy, third trimester (principal); O24.313 Unspecified pre-existing diabetes mellitus in pregnancy, third trimester; Z3A.35 35 weeks gestation of pregnancy
CPT/HCPCS: 59025; 76818

== ENCOUNTER 2025-01-23 12:54 | Outpatient (OUT) | payer BC, SELFPAY ==
[2025-01-23 12:59] VITALS: BP 121/66; PULSE 78
== END 2025-01-23 13:29 | disposition home or self-care (01) ==
LOC: FBCO 12:55 → FBC 12:56
PROVIDERS: Visit Provider Obstetrics & Gynecology
DX: O24.313 Unspecified pre-existing diabetes mellitus in pregnancy, third trimester (principal); Z3A.36 36 weeks gestation of pregnancy
CPT/HCPCS: 59025

== ENCOUNTER 2025-01-26 06:59 | Outpatient (OUT) | payer BC, SELFPAY ==
--- OUTSIDE RECORDS SUMMARY | 2025-01-15 16:30 | XMS_ITS | Encounter Summary ---
Author Organization [facility] Address [address] [place] [address] Care Team Providers Care Food Safety Coordinator Name Role Phone Flaquita Banuelos CNM Unavailable [phone] Unallocated, Noms Provider Primary Care Provi mart Encounter Details Date Type Department Care Team (Latest Contact Info) Description 01/15/2025 4:30 PM EDT Routine [facility] FNR OB [address] [place] [address] Flaquita Banuelos, CNM [address] [place], [place] [id number] 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 mellitus without complication, without long-term current use of insulin (HCC) (Primary Dx); with type 2 diabetes mellitus in third trimester (HHS-HCC) Social History Tobacco Use Types Packs/Day Years [...] week 06/07/2024 How often do you attend [facility] or [facility] services? More than 4 times [...] Recorded Patient Health Questionnaire-2 Score 0 12/07/2024 [facility] of Occupat ional Health - Occupational Stress [...] in the past [address] [facility], were you homeless or living in a [...] Care Team (Late st Contact Info) Description 01/29/2025 4:30 PM EDT Routine [facility] FNR OB [address] [place] [address] Flaquita Banuelos CNM [address] [place], [place] [id number] 02/06/2025 4:30 PM EDT Routine [facility] FNR OB [address] [place] [address] Flaquita Banuelos CNM [address] [place], [place] [id number] 02/12/2025 4:30 PM EDT Routine [facility] FNR OB [address] [place] [address] Flaquita Banuelos CNM [address] [place], [place] [address] 04/17/2025 10:30 AM EDT Office Visit [facility] S[facility] FM [address] [place] [address] [place] [address] Awilda Crenshaw, DO [address] [place] [address] [place] [address] documented as of this encounter Visit Diagnoses Diagnosis 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 mellitus without complication, without long-term current use of insulin (HCC)- Primary with type 2 diabetes mellitus in third trimester (HHS-HCC) documented in this encounter Care Teams Food Safety Coordinator Relationship Specialty Start Date End Date Unallocated, Noms Dian, [address] [place] [address] PCP - General 04/16/23 Flaquita Banuelos CNM [facility] [place], [place] [phone] Obstetrics and Gynecology 02/10/23 documented as of this encounter
--- OUTSIDE RECORDS SUMMARY | 2025-01-18 08:30 | XMS_ITS | Encounter Summary ---
Author Organization [facility] Address [address] [place] [address] Care Team Providers Care Marine Engine Driver Name Role Phone Flaquita Banuelos CNM Unavailable [phone] Unallocated, Noms Provider Primary Care Provi mart Reason for Visit * Reason Comments Diabetes Encounter Details Date Type Department Care Team (Late st Contact Info) Description 01/18/2025 8:30 AM EDT Office Visit [facility] FM [address] [facility] [address] [place] [address] Awilda Crenshaw, DO [address] [facility] [address] [place] [address] with type 2 diabetes mellitus in third trimester ([facility]) Social History Tobacco Use Types Packs/Day Years [...] Recorded Patient Health Questionnaire-2 Score 0 01/18/2025 [facility] [place] of Occupat ional Health - Occupational Stress [...] any time in the past 12 m [facility], were you homeless or [...] type 2 diabetes mellitus in third trimester ([facility]) Continue to check fasting and PP readings [...] in the evening (1000 MG TABS) Labs [facility] HEMOGLOBIN A1C/HEMOGLOBIN.TOTAL:MFR:PT:BLD:QN: 6.1 Outpatient prescription Medication marked [...] [facility] [address] [place] [address] Flaquita Banuelos, CNM [address] [place] [address] 02/06/2025 4:30 PM EDT Routine [facility] OB [address] [place] [address] Flaquita Banuelos, CNM [address] [place] [address] 02/12/2025 4:30 PM EDT Routine [facility] [address] [place] [address] Flaquita Banuelos, CNM [address] [place] [address] 04/17/2025 10:30 AM EDT Office Visit [facility] [address] [place] [address] Awilda Crenshaw DO [address] [place] [address] documented as of this encounter Procedures Procedure Name Priority Date/Time Associated Diagnosis Comments POCT GLYCOSYLATED HEMOGLOBIN (HGB A1C) Routine 01/18/2025 8:38 AM EDT with type 2 diabetes mellitus in third trimester ([facility]) documented in this encounter Results * POCT glycosylated hemoglobin (Hb A1C) docked device (01/18/2025 8:38 AM EDT) Hemoglobin A1C 6.1 Blood Venous blood specimen / Unknown 01/18/2025 8:38 AM EDT us Awilda Crenshaw DO POINT OF CARE TEST ENTER/E DIT ORDERABLES Final Result documented in this encounter Visit Diagnoses Diagnosis with type 2 diabetes mellitus in third trimester ([facility]) documented in this encounter Care Teams Marine Engine Driver Relationship Specialty Start Date End Date Unallocated, Noms Provider, MD Bri SMITH [place], [place] [id number] PCP - General 04/16/23 Flaquita Banuelos CNM [address] [place] [address] Obstetrics and Gynecology 02/10/23 documented as of this encounter
--- OUTSIDE RECORDS SUMMARY | 2025-01-22 16:30 | XMS_ITS | Encounter Summary ---
Author Organization [facility] Address [address] [place] [address] Care Team Providers Care Direct Marketing Manager Name Role Phone Flaquita Banuelos CN Unavailable [phone] Unallocated, Noms Provider Primary Care Provi mart Encounter Details Date Type Department Care Team (Latest Contact Info) Description 01/22/2025 4:30 PM EDT Routine [facility] [address] [place] [address] Flaquita Banuelos, CNM [address] [place], [place] [id number] screening for streptococcus B ([facility]) (Primary Dx); with type 2 diabetes mellitus in third trimester ([facility]-HCC); Type 2 diabetes mellitus treated with insulin (HCC) Social History Tobacco Use Types Packs/Day Years [...] any clubs o r organizations such as baptist groups, unions, fraternal or athletic groups, or [...] Recorded Patient Health Questionnaire-2 Score 0 01/18/2025 [facility] of Occupat ional Health - Occupational Stress [...] any time in the past 12 m [facility], were you homeless or living in a [...] Sign Reading Time Taken Comments Blood Pressure 120/70 01/22/2025 4:32 PM EDT Pulse - - Temperature - - Respiratory Rate - - Oxygen Saturation - - Inhaled Oxygen Concentration - - Weight 109 kg (240 lb) 01/22/2025 4:32 PM EDT Height - - Body Mass Index 34.44 01/18/2025 8:28 AM EDT documented in this encounter Progress Notes * Flaquita Banuelos CNM - 01/22/2025 4:30 PM EDT Subjective No chief complaint on file. Kellie Reyes is a 29 y.o. at 36w0d with a working estimated date of delivery [...] Lv 1 Current Her is complicated by: Diabetes type 2 insulin required Objective Physical Exam Weight: 240 lb Expected Total Weight Gain: 11 lb-19 lb Pregravid BMI: 35.30 BP: 120/70 Urine protein-negative Urine glucose-negative Assessment/Plan Diagnoses and all orders for this visit: screening for streptococcus B - STREPTOCCOUS, GROUP B CULTURE; Future with type 2 diabetes mellitus in third trimester Type 2 diabetes mellitus treated with insulin ([facility]) Glucose log reviewed, patient states Dr Crowley adjusted her insulin as her glucose levels were going low. Med list is current in [facility]. Continue vitamin. Labs reviewed. GBS taken. Expected mode of delivery vaginal Follow up in 1 week for a routine visit. documented in this encounter Plan of Treatment Upcoming Encounters Date Type Department Care Team (Late st Contact Info) Description 01/29/2025 4:30 PM EDT Routine [facility] [address] [place] [id number] Flaquita Banuelos CNM [address] [place] [address] 02/06/2025 4:30 PM EDT Routine [facility] [address] [facility] [place] [phone] Flaquita Banuelos, CNM [address] [place] [address] 02/12/2025 4:30 PM EDT Routine [facility] [address] [facility] [place] [phone] VinFlaquita, CNM [address] [place] [address] 04/17/2025 10:30 AM EDT Office Visit [facility] [address] [place] [address] Awilda Crenshaw, DO [address] [place] [address] Pending Results Name Type Priority Associated Diagnoses Date /Time STREPTOCCOUS, GROUP B CULTURE Lab Routine screening for streptococcus B ([facility]) 01/22/2025 5:00 PM EDT documented as of this encounter Procedures Procedure Name Priority Date/Time Associated Diagnosis Comments STREPTOCCOUS, GROUP B CULTURE Routine 01/22/2025 5:00 PM EDT screening for streptococcus B ([facility]) documented in this encounter Visit Diagnoses Diagnosis screening for streptococcus B ([facility])- Primary screening for Streptococcus B with type 2 diabetes mellitus in third trimester ([facility]-HCC) Type 2 diabetes mellitus treated with insulin (HCC) documented in this encounter Care Teams Direct Marketing Manager Relationship Specialty Start Date End Date Unallocated, Noms Dian, [place] [address] PCP - General 04/16/23 Flaquita Banuelos CNM [address] [place], [place] [phone] Obstetrics and Gynecology 02/10/23 documented as of this encounter
--- OUTSIDE RECORDS SUMMARY | 2025-01-26 07:01 | XMS_ITS | Encounter Summary ---
Author Organization [facility] Address [address] [place] [address] Care Team Providers Care Machine Biller Name Role Phone Flaquita Banuelos CNM Unavailable [phone] Unallocated, Noms Provider Primary Care Provi mart Awilda Crenshaw DO Unavailable [phone] Encounter Details Date Type Department Care Team (Late st Contact Info) Description 10/20/2024 Abstract [facility] [address] [place] [address] Awilda Crenshaw, DO [address] [facility] [address] [place] [address] Social History Tobacco Use Types Packs/Day Years [...] Recorded Patient Health Questionnaire-2 Score 0 10/09/2024 [facility] [place] of Occupat ional Health - Occupational Stress [...] OB [address] [place] [address] Flaquita Banuelos, CNM [address] [place] [address] 02/06/2025 4:30 PM EDT Routine [facility] [address] [facility] [place] [address] Flaquita Banuelos, CNM [address] [place] [address] 02/12/2025 4:30 PM EDT Routine [facility] [address] [facility] [place] [phone] Flaquita Banuelos, CNM [address] [place] [address] 04/17/2025 10:30 AM EDT Office Visit [facility] [address] [place] [phone] Awilda Crenshaw DO [address] [place] [address] documented as of this encounter Visit Diagnoses Not on filedocumented in this encounter Care Teams Machine Biller Relationship Specialty Start Date End Date Unallocated, Noms Provider, [facility] [place] [address] PCP - General 04/16/23 Awilda Crenshaw DO [address] [place] [address] PCP - [place] [employer] 06/16/23 Flaquita Banuelos CNM [address] [place] [id number] Obstetrics and Gynecology 02/10/23 documented as of this encounter
--- OUTSIDE RECORDS SUMMARY | 2025-01-26 07:01 | XMS_ITS | CCD ---
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 Name Role Phone Unavailable Primary Care Provider Unavailabl e FLORO, DARÍO Referring Unavailable Floro CNM, Darío L Unavailable Unallocated , Noms Provider Primary Care Provi mart PetAwilda carr DO Unavailable [phone] Unallocated , Noms Provider Primary Care Provi mart Floro PREDATORY ANIMAL HUNTER-CNM, Darío Primary Care Provider [phone] SVETLANA JACK Attending Unavailable FLORO, DARÍO Referring [...] FLORO, DARÍO Mccoy Attending Unavailable FLORO, DARÍO L Referring Unavailable HENRY SAM Attending Unavailable FLORO, DARÍO L Referring Unavailable FLORO, DARÍO L Attending Unavailable FLORO, DARÍO L Attending Unavailable FLORO, DARÍO L Attending Unavailable FLORO, DARÍO L Attending Unavailable PETZNICK, AWILDA M Attending Unavailable FLORO, DARÍO L Attending Unavailable PETZNICK, AWILDA M Attending Unavailable PETZNICK, AWILDA M Attending Unavailable FLORO, DARÍO L Referring Unavailable FLORO, DARÍO L Attending Unavailable FLORO, DARÍO L Attending Unavailable PETZNICK, AWILDA M Attending Unavailable PETZNICK, AWILDA M Referring Unavailable Petznick DO, Awilda M Unavailable [phone] Medications Current Medications Medication Drug Class(es) Dates [...] Active docusate sodium 100 mg oral capsule (18 sources) Start: 12-28-2024 End: 04-27-2025 take 1 capsule by mouth in the morning docusate sodium (Colace) 100 MG capsule Indications: Anemia during in third trimester (HHS-HCC) Take 1 capsule (100 mg) by mouth in the morning and 1 capsule (100 mg) before bedtime. 60 capsule 3 12/28/2024 04/27/2025 Active ferrous sulfate 325 mg delayed release oral tablet (18 sources) Start: 12-28-2024 End: 12-28-2025 take 1 tablet by mouth in the morning ferrous sulfate (Fe Tabs) 325 (65 Fe) MG EC tablet Indications: Anemia during in third trimester (HHS-HCC) Take 1 tablet (325 mg) by mouth in the morning and 1 tablet (325 mg) before bedtime. Take before meals. Do not crush, chew, or split. 60 tablet 11 12/28/2024 12/28/2025 Active 3 ml insulin isophane, human 100 unt/ml pen injector (20 sources) Start: 01-18-2025 insulin NPH, I sophane, (HumuLIN N KWIKPEN) 100 UNIT/ML injection 8 units am and 14 units pm 15 mL 3 01/18/2025 Active Start: 10-09-2024 End: 01-18-2025 insulin NPH, Isophane, (Humu REBEKAH N KWIKPEN) 100 UNIT/ML injection 10 units am and 17 units pm 15 mL 3 12/07/2024 01/18/2025 Discontinued (Dose adjustment) Start: 09-22-2024 End: 10-09-2024 insulin NPH, Isophane, [...] 09/01/2024 Active Start: 05-29-2024 End: 09-01-2024 insulin NPH, Isoprachide, (Jennifer REBEKAH N FlexPen) 100 UNIT/ML injection Indications: Type 2 diabetes mellitus without complication, without long-term current use of insulin (HCC) INJECT 15 UNITS AM 25 UNITS PM 15 mL 3 05/29/2024 09/01/2024 Discontinued Start: 02-28-2024 insulin NPH, I sophane, (NovoLIN N FlexPen) 100 UNIT/ML injection Indications: Type 2 diabetes mellitus without complication, without long-term current use of insulin ([facility]/HCC) 15 units in the am and 25 [...] type 2 diabetes mellitus in second trimester ([facility]) 1-2 units breakfast, 5-12 units lunch/dinner (max [...] 1 tablet by mouth once daily. Active metFORMIN hydrochloride 1000 mg oral tablet (20 sources) Biguanide Start: 02-28-2024 metFORMIN (Glucophage) 1000 MG tablet Indications: Type 2 diabetes mellitus without complication, without long-term current use of insulin (HCC) 1/2 tablet in the am and 1 [...] Start: 01-08-2017 take 1 tablet by luke once daily LEVORA-28 0.15-0.03 mg per tablet Indications: Dysmenorrhea TAKE 1 TABLET BY MOUTH DAILY 84 tablet 0 01/08/2017 Active medroxyPROGESTERone acetate 10 mg oral tablet (17 sources) Progestin Start: 05-02-2024 End: 08-30-2024 take 1 tablet by mouth once daily, [...] day of bleeding. . 7 tablet 05/02/2024 08/30/2024 Discontinued (Therapy completed) Problems Active Problems Problem Classification Problem Date Documented Date Episodic/Chronic Conduction disorders (20 sources) Long QT syndrome; Translations: [Long QT syndrome] Onset: 12-29-2016 Resolved: 11-09-2024 04-16-2023 Chronic Diabetes mellitus with complications (4 sources) Type 2 diabetes mellitus; Translations: [Type [...] Translations: [Mixed hyperlipidemia] Onset: 04-16-2023 04-16-2023 Chronic Genitourinary symptoms and ill-defined conditions (2 sources) Dysuria; Translations: [Dysuria] 01-01-2025 Episodic Other complications of (2 sources) Finding related to ; Translations: [ related conditions, unspecified, third trimester] 11-15-2024 Episodic Other endocrine disorders (20 sources) Polycystic ovary syndrome; Translations: [Polycystic ovarian syndrome] Onset: 04-16-2023 04-16-2023 Chronic Other nutritional; endocrine; and metabolic disorders (20 sources) Insulin resistance; Translations: [Insulin resistance] Onset: 04-16-2023 04-16-2023 Chronic Other and delivery including normal (14 sources) First trimester ; Translations: [Encounter for supervision of normal first , first trimester] 08-03-2024 Episodic Other screening for suspected conditions (not mental disorders or infectious disease) (7 sources) Encounter for other screening follow-up; Translations: [...] Facility US OB BPP W NON-STRESS on 01-19-[address] [address] Ultrasound Report Signed Patient: REGINALD REYES MR#: [id number] : 1995 Acct:[id number] Age/Sex: 29 / F ADM Date: 01/19/25 Loc: [facility] 250-[address]: Henry Sam D.O. Ordering Physician: Henry Sam D.O. Date of Service: 01/19/25 Procedure(s): US OB BPP w non-stress Accession Number(s): [id number] cc: Henry Sam D.O.; Physician,Non-Staff Magaly [address] [address] Patient Name: REGINALD REYES MRN: [facility]:[id number] date: 1995 Sex: F Assigned Patient Location: [facility] Current Patient Location: [facility] Accession/Order Number: [id number] Exam Date: 01/19/2025 07:35 Report Date: 01/19/2025 07:37 At the request of: HENRY SAM DO Procedure: US OB BPP w non-stress US OB BPP w non-stress 01/19/2025 7:26 AM SIGNS AND SYMPTOMS: DIABETES MELLITUS DURING O24.113 PROTOCOL: Transabdominal sonographic imaging of the gravid uterus COMPARISON: None FINDINGS: Estimated gestational age: 35 weeks and 4 days heart rate: 130 bpm. Amniotic fluid index: 15.92 cm. Biophysical profile: movement: 2/2 tone: 2/2 breathing movements: 2/2. Amniotic fluid volume: 2/2 US/US OB BPP w non-stress IMPRESSION: Biophysical profile score: 8/8 Amniotic fluid index: 15.92 cm Impression dictated by: Zak Roberson M.D. 01/19/2025 7:37 AM Dictation Location: [place] [address] Electronically authenticated by: [id number] Y Date: 01/19/2025 07:37 Dictated By: Zak Roberson M.D. Signed By: 01/19/25 0739 DD/ 0737 TD/TT: Crt: [facility] Radiology, Radiologist, - 01/19/2025 [place] [address] Ultrasound Report Signed Patient: REGINALD REYES MR#: [id number] : 1995 Acct:[id number] Age/Sex: 29 / F ADM Date: 01/19/25 Loc: [facility] 250-[address]: Henry Sam D.O. Ordering Physician: Henry Sam D.O. Date of Service: 01/19/25 Procedure(s): US OB BPP w non-stress Accession Number(s): [id number] cc: Henry Sam D.O.; Physician,Non-Staff Magaly The [place] [address] Patient Name: REGINALD REYES MRN: [facility]:[id number] date: 1995 Sex: F Assigned Patient Location: [facility] Current Patient Location: [facility] Accession/Order Number: [id number] Exam Date: 01/19/2025 07:35 Report Date: 01/19/2025 07:37 At the request of: HENRY SAM DO Procedure: US OB BPP w non-stress US OB BPP w non-stress 01/19/2025 7:26 AM SIGNS AND SYMPTOMS: DIABETES MELLITUS DURING O24.113 PROTOCOL: Transabdominal sonographic imaging of the gravid uterus COMPARISON: None FINDINGS: Estimated gestational age: 35 weeks and 4 days heart rate: 130 bpm. Amniotic fluid index: 15.92 cm. Biophysical profile: movement: 2/2 tone: 2/2 breathing movements: 2/2. Amniotic fluid volume: 2/2 US/US OB BPP w non-stress IMPRESSION: Biophysical profile score: 8/8 Amniotic fluid index: 15.92 cm Impression dictated by: Zak Roberson M.D. 01/19/2025 7:37 AM Dictation Location: [place] [address] Electronically authenticated by: [id number] Y Date: 01/19/2025 07:37 Dictated By: Zak Roberson M.D. Signed By: 01/19/25 0739 DD/ 0737 TD/TT: Crt: [facility] Radiology Study observation (narrative) [facility] US OB BPP W NON-STRESS Ordered By: Radiologist Radiology on 01-19-2025 [facility] Work Phone: HbA1c (Bld) [Mass fraction]o n 01-18-2025 Interpretation and review of laboratory results Normal [facility] - Hematology and Cell countson 01-18-2025 HbA1c (Bld) [Mass fraction] 6.1 % [facility] No Panel InformationOrdered By: Radiologist Radiology on 01-12-2025 [facility] Work Phone: No Panel Informationon 01-12 Radiology Study observation (narrative) [facility] US OB BPP W NON-STRESS on 01-12-2025 [place] [address] Ultrasound Report Signed Patient: REGINALD REYES MR#: [id number] : 1995 Acct:[id number] Age/Sex: 29 / F ADM Date: 01/12/25 Loc: US Attending Dr: Henry Sam D.O. Ordering Physician: Henry Sam D.O. Date of Service: 01/12/25 Procedure(s): US OB BPP w non-stress Accession Number(s): [id number] cc: Henry Sam D.O.; Physician,Non-Staff Magaly [address] [address] Patient Name: REGINALD REYES MRN: [id number] date: 1995 Sex: F Assigned Patient Location: [facility] [place] [facility]/Order Number: [id number] Exam Date: 01/12/2025 11:54 Report Date: 01/12/2025 [...] 01/12/2025 12:00 PM Dictation Location: [place] [address] Electronically authenticated by: [id number] Y Date: 01/12/2025 12:00 Dictated By: Elle Mcleod M.D. Signed By: 01/12/25 1203 DD/ 1200 TD/TT: Crt: [facility] Radiology, Radiologist, - 01/12/[address] [address] Ultrasound Report Signed Patient: REGINALD REYES MR#: [id number] : 1995 Acct:[id number] Age/Sex: 29 / F ADM Date: 01/12/25 Loc: US Attending Dr: Henry Sam D.O. Ordering Physician: Henry Sam D.O. Date of Service: 01/12/25 Procedure(s): US OB BPP w non-stress Accession Number(s): [id number] cc: Henry Sam D.O.; Physician,Non-Staff Magaly The [address] [address] Patient Name: REGINALD REYES MRN: [id number]:[id number] date: 1995 Sex: F Assigned Patient Location: [facility] [place] Patient [place] [facility] [place]/Order Number: [id number] Exam Date: 01/12/2025 11:54 Report Date: 01/12/2025 [...] 01/12/2025 12:00 PM Dictation Location: [place] [address] Electronically authenticated by: [id number] Y Date: 01/12/2025 12:00 Dictated By: Elle Mcleod M.D. Signed By: 01/12/25 1203 DD/ 1200 TD/TT: Crt: [facility] OB GROWTHon 01-12-2025 [place] [address] Ultrasound Report Signed Patient: REGINALD REYES MR#: [id number] : 1995 Acct:[id number] Age/Sex: 29 / F ADM Date: 01/12/25 Loc: US Attending Dr: Henry Sam D.O. Ordering Physician: Henry Sam D.O. Date of Service: 01/12/25 Procedure(s): US OB growth Accession Number(s): [id number] cc: Henry Sam D.O.; Physician,Non-Staff Magaly [place] [address] Patient Name: REGINALD REYES MRN: [id number] date: 1995 Sex: F Assigned [place] [facility] [place] [facility] Accession/Order Number: [id number] Exam Date: 01/12/2025 11:54 Report Date: 01/12/2025 [...] 01/12/2025 12:00 PM Dictation Location: [place] [address] Electronically authenticated by: [id number] Y Date: 01/12/2025 12:00 Dictated By: Elle Mcleod M.D. Signed By: 01/12/25 1203 DD/ 1200 TD/TT: Crt: [facility] Radiology, Radiologist, - 01/12/[address] [address] Ultrasound Report Signed Patient: REGINALD REYES MR#: [id number] : 1995 Acct:[id number] Age/Sex: 29 / F ADM Date: 01/12/25 Loc: US Attending Dr: Henry Sam D.O. Ordering Physician: Henry Sam D.O. Date of Service: 01/12/25 Procedure(s): US OB growth Accession Number(s): [id number] cc: Henry Sam D.O.; Physician,Non-Staff Magaly [place] [id number] Patient Name: REGINALD REYES MRN: [id number]:[id number] date: 1995 Sex: F Assigned [place] [facility] [place] [facility] Accession/Order Number: [id number] Exam Date: 01/12/2025 11:54 Report Date: 01/12/2025 [...] 01/12/2025 12:00 PM Dictation Location: [place] [address] Electronically authenticated by: [id number] Y Date: 01/12/2025 12:00 Dictated By: Elle Mcleod M.D. Signed By: 01/12/25 1203 DD/ 1200 TD/TT: Crt: [facility] Bacteria identified Cx Nom ( U)on 01-04-2025 Appearance (U) Adequate [facility] Internal identifier for Provider [id number] [facility] Healthcare Specimen source Nom (Unsp spec) URINE [facility] STATUS FINAL [facility] Performing Organization Information Site ID: QPT Name: [facility] Address: [address] [place] [id number] Director: Devendra Aguilar MD [facility] - Microbiology an d Antimicrobial susceptibilityon 01-04-2025 Bacteria identified Cx Nom (U) SEE NOTE [facility] Comment on above: Less than 10,000 CFU/mL of single Gram positive organism isolated. No further testing will be performed. If clinically indicated, recollection using a method to minimize contamination, with prompt transfer to Urine Culture Transport Tube, is recommended. US OB BPP W NON-STRESS on 12-29-[address] [address] Ultrasound Report Signed Patient: REGINALD REYES MR#: [id number] : 1995 Acct:[id number] Age/Sex: 29 / F ADM Date: 12/29/24 Loc: US Attending Dr: Henry Sam D.O. Ordering Physician: Henry Sam D.O. Date of Service: 12/29/24 Procedure(s): US OB BPP w non-stress Accession Number(s): [id number] cc: Henry Sam D.O.; Physician,Non-Staff Magaly [address] [place] [id number] Patient Name: REGINALD REYES MRN: [facility]:[id number] date: 1995 Sex: F Assigned Patient Location: [facility] Current Patient Location: Accession/Order Number: [id number] Exam Date: 12/29/2024 09:34 Report Date: 12/29/2024 [...] Roberson M.D. 12/29/2024 9:36 AM Dictation Location: [place] [address] Electronically authenticated by: [id number] Y Date: 12/29/2024 09:36 Dictated By: Zak Roberson M.D. Signed By: 12/29/2438 DD/ 5 TD/TT: Crt: [facility] Radiology, Radiologist, - 12/29/2024 The [place] [id number] Ultrasound Report Signed Patient: REGINALD REYES MR#: [id number] : 1995 Acct:[id number] Age/Sex: 29 / F ADM Date: 12/29/24 Loc: US Attending Dr: Henry Sam D.O. Ordering Physician: Henry Sam D.O. Date of Service: 12/29/24 Procedure(s): US OB BPP w non-stress Accession Number(s): [id number] cc: Henry Sam D.O.; Physician,Non-Staff Magaly [place] [phone] Patient Name: REGINALD REYES MRN: [id number] date: 1995 Sex: F Assigned Patient Location: [facility] Current Patient Location: Accession/Order Number: [id number] Exam Date: 12/29/2024 09:34 Report Date: 12/29/2024 [...] Roberson M.D. 12/29/2024 9:36 AM Dictation Location: [place] [address] Electronically authenticated by: [id number] Y Date: 12/29/2024 09:36 Dictated By: Zak Roberson M.D. Signed By: 12/29/2438 DD/ TD/TT: Crt: [facility] Radiology Study observation (narrative) [facility] US OB BPP W NON-STRESS Ordered By: Radiologist Radiology on 12-29-2024 [facility] Work Phone: Urinalysis macro (dipstick) panel (U)on 12-25-2024 Bilirubin, UA Negative Negative - 4(70) +++ mg/dL [facility] Blood, UA Negative Negative - 50 Skinny/mcL [facility] Clarity, UA Clear [facility] Color, UA Yellow [facility] Glucose, UA Negative Negative - 2000(110) ++++ mg/dL [facility] Interpretation and review of laboratory results Normal [facility] Ketones, UA Negative Negative - 160(16) ++++ mg/dL [facility] Leukocytes, UA Positive Negative - 500+++ Cal/mcL [facility] Comment on above: small Nitrite, UA Negative Negative - Positive [facility] pH, UA 6.5 5 - 9 [facility] Protein, UA Negative Negative - 2000(20) ++++ mg/dL [facility] Spec Grav, UA 1.02 1 - 1.03 [facility] Urobilinogen, UA 1.0 0.2 - 12 mg/dL [facility] US OB FOLLOW UP TRANSABDOMIN AL APPROACHon [...] II, MD, PHD at 12-Dec-2024 07:13:14 PM [facility] Normal Not Available POCT EKGOrdered By: Abby Andino on 11-08-2024 [facility] HbA1c (Bld) [Mass fraction]o n 10-09-2024 Interpretation and review of laboratory results Normal [facility] - Hematology and Cell countson 10-09-2024 HbA1c (Bld) [Mass fraction] 5.7 % [facility] POCT EKGon 09-19-2024 [facility] No Panel Informationon 08-14 [facility] Chlamydia/GC by PCR ThinPrep fluidon 07-11-2024 Chlamydia Dna(Pcr) Negative [facility] Gonorrhoeae Dna(Pcr) Negative [facility] Drug Screen, Urineon 024 Amphetamine/Methampheta mine Negative [facility] Opiate Quantitative Urine Negative [facility] HIV 1&2 AB/AG Screen (P24 AG )on 07-10-2024 HIV 1&2 AB/AG Non-Reactive [facility] Hemoglobin A1con 07-10-2024 HbA1c (Bld) [Mass fraction] 6.4 % Abnormal 4.0 - 6.0 % [facility] Interpretation and review of laboratory results Abnormal [facility] No Panel Informationon 07-10 [facility] Type and screenon 07-10-2024 Abo/Rh(D) Positive [facility] US OB < 14 WEEKS EARLYon [...] Interpretation and review of laboratory results Normal [facility] - Hematology and Cell countson 06-08-2024 HbA1c (Bld) [Mass fraction] 6.2 % [facility] Cytology Cervical or vaginal smear or scraping studyOrdered By: Christen Nettles on 02-10-2023 [facility] Hemoglobin A1Con 07-05-2019 HbA1c (Bld) [Mass fraction] 5.9 % Normal 4.8-5.9 [facility] Comment on above: Performed By: #### G LYHGB, LIPR #### [facility] [address] [place] [address] Dr[address] [place], [place] [id number] Broaching Machine Repairer: Ruslan Fernando MD #### INSU #### [facility] [address] [place], [place] [id number] Broaching Machine Repairer: Marv Guzman MD [address] [place], [place] [id number] Broaching Machine Repairer: Ruslan Fernando MD HbA1c (Bld) [Mass fraction] 123 mg/dL Normal [facility] Comment on above: Result Comment: The ADA and AACC recommend providing the estimated average glucose result to permit better patient understanding of their HBA1c result. Performed By: #### G LYVICYK, LIPR #### [address] [place], [place] [id number] Broaching Machine Repairer: Ruslan Fernando MD #### INSU #### [facility] [address] [place], [place] [id number] Broaching Machine Repairer: Marv Guzman MD [address] [place], [place] [id number] Broaching Machine Repairer: Ruslan Fernando MD Glucose [Mass/Vol] 123 mg/dL [place], [place] Comment on above: The ADA and AACC rec ommend providing the estimated average glucose result to permit better patient understanding of their HBA1c result. HbA1c (Bld) [Mass fraction] 5.9 % 4.8 - 5.9 % [place], [place] Insulinon 07-05-2019 Insulin 36.2 mU/L [facility] Comment on above: Performed By: #### G LYHGB, LIPR #### [address] [place] [id number] Broaching Machine Repairer: Ruslan Fernando MD #### INSU #### [address] [id number] Broaching Machine Repairer: Marv Guzman MD [address] [place] [id number] Broaching Machine Repairer: Ruslan Fernando MD Reference Range [facility] Comment on above: Result Comment: Fast in.6-24.9 30 min: 20-112 60 min: 29-88 90 min: 26-84 120 min: 22-79 Performed By: #### G LYHGB, LIPR #### [address] [place] [id number] Broaching Machine Repairer: Ruslan Fernando MD #### INSU #### [address] [id number] Broaching Machine Repairer: Marv Guzman MD [address] [place] [id number] Broaching Machine Repairer: Ruslan Fernando MD Collection Info. [id number] [facility] Comment on above: Performed By: #### G LYHGB, LIPR #### [address] [place] [id number] Broaching Machine Repairer: Ruslan Fernando MD #### INSU #### [address] [id number] Broaching Machine Repairer: Marv Guzman MD [address] [place] [address] Broaching Machine Repairer: Ruslan Fernando MD Insulin, totalon 07-05-2019 INR Coag (Bld) [Relative time] [facility] [place], [place] Comment on above: Fastin.6-24.9 30 min: 20-112 60 min: 29-88 90 min: 26-84 120 min: 22-79 Insulin 36.2 mU/L [place], [place] Insulin Comment [facility] [facility] [place] [place] Lipid Panelon 07-05-2019 Cholesterol [Mass/Vol] 204 mg/dL High <200 Me [place], [place] Comment on above: Cholesterol Guidelines: <200 Desirable 200-240 Borderline >240 Undesirable Cholesterol in HDL [Mass/Vol] 35 mg/dL Low >40 [place], [place] Comment on above: HDL Guidelines: <40 Undesirable 40-59 Borderline >59 Desirable Cholesterol in LDL [Mass/Vol] 102 mg/dL 0 - 130 mg/dL [place], [place] Comment on above: LDL Guidelines: <100 Desirable 100-129 Near to/above Desirable 130-159 Borderline >159 Undesirable Direct (measured) LDL and calculated LDL are not interchangeable tests. Cholesterol in VLDL [Mass/Vol] NOT REPORTED High 1 - 30 mg/dL [place], [place] Cholesterol.total/Perla sterol in HDL [Mass ratio] 5.8 {ratio} High <5 [place], [place] Interpretation and review of laboratory results Abnormal [place], [place] Triglyceride [Mass/Vol] 336 mg/dL High <150 M [place], [place] Comment on above: Triglyceride Guidelines: <150 Desirable 150-199 Borderline 200-499 High >499 Very high Based on AHA Guidelines for fasting triglyceride, May 2012. Lipid Profileon 07-05-2019 Cholesterol [Mass/Vol] 204 mg/dL High <200 [facility] Comment on above: Result Comment: Cholesterol Guidelines: <200 Desirable 200-240 Borderline >240 Undesirable Performed By: #### G LYHGB, LIPR #### [facility] [address] [place] [place] [address] Broaching Machine Repairer: Ruslan Fernando MD #### INSU #### [address] [id number] Broaching Machine Repairer: Marv Guzman MD [facility] [address] [place] [place] [address] Broaching Machine Repairer: Ruslan Fernando MD Cholesterol in HDL [Mass/Vol] 35 mg/dL Low >40 [facility] Comment on above: Result Comment: HDL Guidelines: <40 Undesirable 40-59 Borderline >59 Desirable Performed By: #### G LYHGB, LIPR #### [address] [place] [address] Broaching Machine Repairer: Ruslan Fernando MD #### INSU #### [place] [id number] [place] [address] Broaching Machine Repairer: Marv Guzman MD [address] [place] [address] Broaching Machine Repairer: Ruslan Fernando MD Cholesterol in LDL [Mass/Vol] 102 mg/dL Normal 0-130 [facility] Comment on above: Result Comment: LDL Guidelines: <100 Desirable 100-129 Near to/above Desirable 130-159 Borderline >159 Undesirable Direct (measured) LDL and calculated LDL are not interchangeable tests. Performed By: #### G LYHGB, LIPR #### [address] [place] [address] Broaching Machine Repairer: Ruslan Fernando MD #### INSU #### [id number] [place] [address] Broaching Machine Repairer: Marv Guzman MD [address] [place] [address] Broaching Machine Repairer: Ruslan Fernando MD Cholesterol.total/Perla sterol in HDL [Mass ratio] 5.8 {ratio} High <5 [facility] Comment on above: Performed By: #### G LYHGB, LIPR #### [address] [place] [address] Broaching Machine Repairer: Ruslan Fernando MD #### INSU #### [facility] [address] [place] [address] Broaching Machine Repairer: Marv Guzman MD [address] [place] [address] Broaching Machine Repairer: Ruslan Fernando MD Triglyceride [Mass/Vol] 336 mg/dL High <150 [facility] Comment on above: Result Comment: Triglyceride Guidelines: <150 Desirable 150-199 Borderline 200-499 High >499 Very high Based on AHA Guidelines for fasting triglyceride, May 2012. Performed By: #### G LYHGB, LIPR #### [facility] [address] [place], [place] [id number] Broaching Machine Repairer: Ruslan Fernando MD #### INSU #### [facility] [address] [place], [place] [id number] Broaching Machine Repairer: Marv Guzman MD [address] [place], [place] [id number] Broaching Machine Repairer: Ruslan Fernando MD Cholesterol in VLDL [Mass/Vol] NOT REPORTED Normal 09-14 [facility] Comment on above: Performed By: #### G LYHGB, LIPR #### [facility] [address] [place] [address] [address] [place], [place] [id number] Broaching Machine Repairer: Ruslan Fernando MD #### INSU #### [facility] [address] [place], [place] [id number] Broaching Machine Repairer: Marv Guzman MD [address] [place], [place] [id number] Broaching Machine Repairer: Ruslan Fernando MD Vital Signs Date Time Vital Sign Value Performing Clinician Facility 01-22-2025 16:32-0400 Body mass index (BMI) [Ratio] 34.44 kg/m2 Daríotesha Banuelos [facility] Work Phone: [facility] 01-22-2025 16:32-0400 Body weight 108.86 kg Daríotesha Banuelos [facility] Work Phone: [facility] 01-22-2025 16:32-0400 Diastolic blood pressure 70 mm[Hg] Daríotesha Banuelos [facility] Work Phone: [facility] 01-22-2025 16:32-0400 Systolic blood pressure 120 mm[Hg] Darío Floro CNM Work Phone: [facility] 01-18-2025 08:28-0400 Body height 177.8 cm Awilda Petznick DO Work Phone: [facility] 01-18-2025 08:28-0400 Body mass index (BMI) [Ratio] 34.44 kg/m2 Awilda Petznick DO Work Phone: [facility] 01-18-2025 08:28-0400 Body temperature 98.01 [degF] Awilad Petznick DO Work Phone: [facility] 01-18-2025 08:28-0400 Body weight 108.86 kg Awilda Petznick DO Work Phone: [facility] 01-18-2025 08:28-0400 Diastolic blood pressure 66 mm[Hg] Awilda Petznick DO Work Phone: [facility] 01-18-2025 08:28-0400 Heart rate 88 /min Awilda Petznick DO Work Phone: [facility] 01-18-2025 08:28-0400 SaO2% (BldA) [Mass fraction] 98 % Awilda Petznick DO Work Phone: [facility] 01-18-2025 08:28-0400 Systolic blood pressure 118 mm[Hg] Awilda Petznick DO Work Phone: [facility] 01-15-2025 16:36-0400 Body mass index (BMI) [Ratio] 34.87 kg/m2 Darío Díazo CNM Work Phone: [facility] 01-15-2025 16:36-0400 Body weight 110.22 kg Darío Díazo CNM Work Phone: [facility] 01-15-2025 16:36-0400 Diastolic blood pressure 78 mm[Hg] Darío Sheebao CNM Work Phone: [facility] 01-15-2025 16:36-0400 Systolic blood pressure 120 mm[Hg] Darío Díazo CNM Work Phone: [facility] 01-09-2025 16:34-0400 Body mass index (BMI) [Ratio] 34.72 kg/m2 Darío Floro CNM Work Phone: [facility] 01-09-2025 16:34-0400 Body weight 109.77 kg Darío Floro CNM Work Phone: [facility] 01-09-2025 16:34-0400 Diastolic blood pressure 74 mm[Hg] Darío Floro CNM Work Phone: [facility] 01-09-2025 16:34-0400 Systolic blood pressure 120 mm[Hg] Darío Floro CNM Work Phone: [facility] 01-01-2025 16:33-0400 Body mass index (BMI) [Ratio] 34.29 kg/m2 Darío Floro CNM Work Phone: [facility] 01-01-2025 16:33-0400 Body weight 108.41 kg Darío Floro CNM Work Phone: [facility] 01-01-2025 16:33-0400 Diastolic blood pressure 72 mm[Hg] Darío Floro CNM Work Phone: [facility] 01-01-2025 16:33-0400 Systolic blood pressure 120 mm[Hg] Darío Floro CNM Work Phone: [facility] 12-26-2024 16:02-0400 Body mass index (BMI) [Ratio] 34.15 kg/m2 Darío Floro CNM Work Phone: [facility] 12-26-2024 16:02-0400 Body weight 107.96 kg Darío Floro CNM Work Phone: [facility] 12-26-2024 16:02-0400 Diastolic blood pressure 74 mm[Hg] Darío Floro CNM Work Phone: [facility] 12-26-2024 16:02-0400 Systolic blood pressure 116 mm[Hg] Darío Floro CNM Work Phone: [facility] 12-11-2024 15:56-0400 Diastolic blood pressure 70 mm[Hg] Darío Banuelos CNM Work Phone: [facility] 12-11-2024 15:56-0400 Systolic blood pressure 120 mm[Hg] Darío Banuelos CNM Work Phone: [facility] 12-07-2024 08:17-0400 Body height 177.8 cm Awilda Petznick DO Work Phone: [facility] 12-07-2024 08:17-0400 Body temperature 97.9 [degF] Awilda Petznick DO Work Phone: [facility] 12-07-2024 08:17-0400 Diastolic blood pressure 66 mm[Hg] Awilda Petznick DO Work Phone: [facility] 12-07-2024 08:17-0400 Heart rate 86 /min Awilda Petznick DO Work Phone: [facility] 12-07-2024 08:17-0400 SaO2% (BldA) [Mass fraction] 98 % Awilda Petznick DO Work Phone: [facility] 12-07-2024 08:17-0400 Systolic blood pressure 126 mm[Hg] Awilda Petznick DO Work Phone: [facility] 11-15-2024 16:31-0400 Body mass index (BMI) [Ratio] 34.44 kg/m2 Darío Banuelos CNM Work Phone: [facility] 11-15-2024 16:31-0400 Body weight 108.86 kg Darío Banuelos CNM Work Phone: [facility] 11-15-2024 16:31-0400 Diastolic blood pressure 78 mm[Hg] Darío Banuelos CNM Work Phone: [facility] 11-15-2024 16:31-0400 Systolic blood pressure 120 mm[Hg] Darío Banuelos CNM Work Phone: [facility] 11-08-2024 09:17-0400 Body height 177.8 cm Tricia Rowland MD Work Phone: [facility] 11-08-2024 09:17-0400 Body mass index (BMI) [Ratio] 34.06 kg/m2 Tricia Rowland MD Work Phone: [facility] 11-08-2024 09:17-0400 Body weight 107.68 kg Tricia Rowland MD Work Phone: [facility] 11-08-2024 09:17-0400 Diastolic blood pressure 64 mm[Hg] Tricia Rowland MD Work Phone: [facility] 11-08-2024 09:17-0400 Heart rate 80 /min Tricia Rowland MD Work Phone: [facility] 11-08-2024 09:17-0400 SaO2% (BldA) [Mass fraction] 98 % Tricia Rowland MD Work Phone: [facility] 11-08-2024 09:17-0400 Systolic blood pressure 128 mm[Hg] Tricia Rowland MD Work Phone: [facility] 10-18-2024 16:37-0500 Body mass index (BMI) [Ratio] 34.15 kg/m2 Daríotesha Díazo CNM Work Phone: [facility] 10-18-2024 16:37-0500 Body weight 107.96 kg Darío Floro CNM Work Phone: [facility] 10-18-2024 16:37-0500 Diastolic blood pressure 60 mm[Hg] Darío Floro CNM Work Phone: [facility] 10-18-2024 16:37-0500 Systolic blood pressure 120 mm[Hg] Darío Floro CNM Work Phone: [facility] 10-09-2024 15:40-0500 Body height 177.8 cm Awilda Delatorre DO Work Phone: [facility] 10-09-2024 15:40-0500 Body mass index (BMI) [Ratio] 34.01 kg/m2 Awilda Petznick DO Work Phone: [facility] 10-09-2024 15:40-0500 Body temperature 98.2 [degF] Awilda Petznick DO Work Phone: [facility] 10-09-2024 15:40-0500 Body weight 107.5 kg Awilda Petznick DO Work Phone: [facility] 10-09-2024 15:40-0500 Diastolic blood pressure 66 mm[Hg] Awilda Petznick DO Work Phone: [facility] 10-09-2024 15:40-0500 Heart rate 98 /min Awilda Petznick DO Work Phone: [facility] 10-09-2024 15:40-0500 SaO2% (BldA) [Mass fraction] 98 % Awilda Petznick DO Work Phone: [facility] 10-09-2024 15:40-0500 Systolic blood pressure 128 mm[Hg] Awilda Petznick DO Work Phone: [facility] 09-28-2024 16:17-0500 Body mass index (BMI) [Ratio] 34.58 kg/m2 Darío Floro CNM Work Phone: [facility] 09-28-2024 16:17-0500 Body weight 109.32 kg Darío Floro CNM Work Phone: [facility] 09-28-2024 16:17-0500 Diastolic blood pressure 70 mm[Hg] Darío Floro CNM Work Phone: [facility] 09-28-2024 16:17-0500 Systolic blood pressure 120 mm[Hg] Darío Floro CNM Work Phone: [facility] 09-19-2024 10:31-0500 Body height 177.8 cm Aye Saucedo MD Work Phone: [facility] 09-19-2024 10:31-0500 Body mass index (BMI) [Ratio] 34.15 kg/m2 Aye Saucedo MD Work Phone: [facility] [place] [facility] 09-19-2024 10:31-0500 Body weight 107.96 kg Aye Saucedo MD Work Phone: [facility] [place] [facility] 09-19-2024 10:31-0500 Diastolic blood pressure 76 mm[Hg] Aye Saucedo MD Work Phone: [facility] [place] 09-19-2024 10:31-0500 Heart rate 85 /min Aye Saucedo MD Work Phone: [facility] [place] [facility] 09-19-2024 10:31-0500 SaO2% (BldA) [Mass fraction] 98 % Aye Saucedo MD Work Phone: [facility] [place] [facility] 09-19-2024 10:31-0500 Systolic blood pressure 122 mm[Hg] Aye Saucedo MD Work Phone: [facility] 09-11-2024 08:12-0500 Body mass index (BMI) [Ratio] 34.29 kg/m2 Clarke Modi MD Work Phone: [facility] [place] 09-11-2024 08:12-0500 Body weight 108.41 kg Clarke Modi MD Work Phone: [facility] [place] [facility] 09-11-2024 08:12-0500 Diastolic blood pressure 81 mm[Hg] Clarke Modi MD Work Phone: [facility] 09-11-2024 08:12-0500 Heart rate 80 /min Clarke Modi MD Work Phone: [facility] 09-11-2024 08:12-0500 Systolic blood pressure 122 mm[Hg] Clarke Modi MD Work Phone: [facility] [place] [facility] 09-01-2024 08:54-0500 Body height 177.8 cm Awilda Petznick DO Work Phone: [facility] 09-01-2024 08:54-0500 Body mass index (BMI) [Ratio] 34.44 kg/m2 Awilda Petznick DO Work Phone: [facility] 09-01-2024 08:54-0500 Body temperature 98.49 [degF] Awilda Petznick DO Work Phone: [facility] 09-01-2024 08:54-0500 Body weight 108.86 kg Awilda Petznick DO Work Phone: [facility] 09-01-2024 08:54-0500 Diastolic blood pressure 72 mm[Hg] Awilda Petznick DO Work Phone: [facility] 09-01-2024 08:54-0500 Heart rate 92 /min Awilda Petznick DO Work Phone: [facility] 09-01-2024 08:54-0500 SaO2% (BldA) [Mass fraction] 97 % Awilda Petznick DO Work Phone: [facility] 09-01-2024 08:54-0500 Systolic blood pressure 126 mm[Hg] Awilda Petznick DO Work Phone: [facility] 08-30-2024 16:08-0500 Body mass index (BMI) [Ratio] 34.58 kg/m2 Darío Floro CNM Work Phone: [facility] 08-30-2024 16:08-0500 Body weight 109.32 kg Darío Floro CNM Work Phone: [facility] 08-30-2024 16:08-0500 Diastolic blood pressure 68 mm[Hg] Darío Floro CNM Work Phone: [facility] 08-30-2024 16:08-0500 Systolic blood pressure 120 mm[Hg] Darío Floro CNM Work Phone: [facility] 08-14-2024 10:40-0500 Body height 177.8 cm Svetlana Jack PA-C Work Phone: [facility] 08-14-2024 10:40-0500 Body mass index (BMI) [Ratio] 34.72 kg/m2 Svetlana Lavoy PA-C Work Phone: [facility] [place] [facility] 08-14-2024 10:40-0500 Body weight 109.77 kg Svetlana Lavoy PA-C Work Phone: [facility] 08-14-2024 10:40-0500 Diastolic blood pressure 68 mm[Hg] Svetlana Lavoy PA-C Work Phone: [facility] 08-14-2024 10:40-0500 Heart rate 86 /min Svetlana Lavoy PA-C Work Phone: [facility] 08-14-2024 10:40-0500 Systolic blood pressure 134 mm[Hg] Svetlana Lavoy PA-C Work Phone: [facility] 08-14-2024 09:42-0500 Body height 177.8 cm Shauna Denny RN Work Phone: [facility] 08-14-2024 09:41-0500 Body mass index (BMI) [Ratio] 34.72 kg/m2 Shauna Denny RN Work Phone: [facility] 08-14-2024 09:41-0500 Body weight 109.77 kg Shauna Denny RN Work Phone: [facility] 08-03-2024 08:36-0500 Body mass index (BMI) [Ratio] 35.3 kg/m2 Darío Floro CNM Work Phone: [facility] 08-03-2024 08:36-0500 Body weight 111.58 kg Darío Floro CNM Work Phone: [facility] 08-03-2024 08:36-0500 Diastolic blood pressure 80 mm[Hg] Darío Floro CNM Work Phone: [facility] 08-03-2024 08:36-0500 Systolic blood pressure 122 mm[Hg] Darío Floro CNM Work Phone: [facility] 07-10-2024 15:43-0500 Body mass index (BMI) [Ratio] 35.3 kg/m2 Darío BRAND Work Phone: [facility] 07-10-2024 15:43-0500 Body weight 111.58 kg Darío BRAND Work Phone: [facility] 07-10-2024 15:43-0500 Diastolic blood pressure 76 mm[Hg] Darío BRAND Work Phone: [facility] 07-10-2024 15:43-0500 Systolic blood pressure 120 mm[Hg] Darío BRAND Work Phone: [facility] 06-08-2024 14:04-0400 Body height 177.8 cm Awilda Petznick DO Work Phone: [facility] 06-08-2024 14:04-0400 Body mass index (BMI) [Ratio] 35.01 kg/m2 Awilda Petznick DO Work Phone: [facility] 06-08-2024 14:04-0400 Body temperature 98.49 [degF] Awilda Petznick DO Work Phone: [facility] 06-08-2024 14:04-0400 Body weight 110.68 kg Awilda Petznick DO Work Phone: [facility] 06-08-2024 14:04-0400 Diastolic blood pressure 72 mm[Hg] Awilda Petznick DO Work Phone: [facility] 06-08-2024 14:04-0400 Heart rate 87 /min Awilda Petznick DO Work Phone: [facility] 06-08-2024 14:04-0400 SaO2% (BldA) [Mass fraction] 98 % Awilda Petznick DO Work Phone: [facility] 06-08-2024 14:04-0400 Systolic blood pressure 138 mm[Hg] Awilda Petznick DO Work Phone: [facility] Encounters Encounter Date Encounter Type Care Provider Facility Start: 01-22-2025 ambulatory DARÍO Nadine DÍAZO Not Lisa ilable Start: 01-22-2025 End: 01-22-2025 Subsequent care visit Darío Díazo CNM Work Phone: [facility] Comment on above: screening for streptococcus B (Primary Dx); with type 2 diabetes mellitus in third trimester; Type 2 diabetes mellitus treated with insulin ([facility]) Start: 01-22-2025 End: 01-22-2025 Bamboo flowsheet Darío Nadine Díazo CNM Work Phone: [facility] Start: 01-22-2025 End: 01-22-2025 Bamboo flowsheet Darío Nadine Díazo CNM Work Phone: [facility] Start: 01-19-2025 End: 01-19-2025 Clinisync Result Encounter Henry Flaco DO Work Phone: [facility] Unsolicited Start: 01-19-2025 End: 01-19-2025 Clinisync Result Encounter Henry Flaco DO Work Phone: [facility] Unsolicited Start: 01-18-2025 End: 01-18-2025 Office outpatient visit 15 minutes Awilda Delatorre DO Work Phone: [phone] Comment on above: with type 2 diabetes mellitus in third trimester Start: 01-18-2025 End: 01-18-2025 ambulatory AWILDA DELATORRE Not Available Start: 01-15-2025 End: 01-15-2025 Subsequent care visit Darío Díazo CNM Work Phone: [facility] Comment on above: Type 2 diabetes guerrero itus without complication, without long- term current use of insulin (Primary Dx); with type 2 diabetes mellitus in third trimester Start: 01-15-2025 End: 01-15-2025 ambulatory DARÍO L FLORO Not Available Start: 01-15-2025 End: 01-15-2025 Bamboo flowsheet Darío [...] 2 diabetes guerrero itus treated with insulin ([facility]) (Primary Dx); Encounter for care of first , third trimester Start: 01-09-2025 End: 01-09-2025 Bamboo flowsheet Darío L Floro CNM Work Phone: [facility] Start: 01-09-2025 End: 01-09-2025 Bamboo flowsheet Darío L Floro CNM Work Phone: [facility] Start: 01-01-2025 End: 01-01-2025 ambulatory DARÍO L FLORO Not Available Start: 01-01-2025 End: 01-01-2025 Subsequent care visit Darío Nadine Díazo CNM Work Phone: [facility] Comment on above: Screening for iron d eficiency anemia (Primary Dx); Dysuria Start: 01-01-2025 End: 01-01-2025 Bamboo flowsheet Darío [...] Unsolicited Start: 12-26-2024 End: 12-26-2024 ambulatory DARÍO DÍAZO Not Available Start: 12-26-2024 End: 12-26-2024 Subsequent care visit Darío Banuelos CN Work Phone: [facility] Comment on above: with type 2 diabetes mellitus in third trimester (Primary Dx); Screening for iron deficiency anemia; Type 2 diabetes mellitus treated with insulin ([facility]) Start: 12-26-2024 End: 12-26-2024 Bamboo flowsheet [...] 12-11-2024 End: 12-11-2024 Subsequent care visit Darío Banuelos CNM Work [...] 30 minutes Aye Saucedo MD Work Phone: [facility] Comment on above: Long Q-T syndrome (P rimary Dx); Hx of prolonged Q-T interval on ECG Start: 11-08-2024 End: 11-08-2024 ambulatory TRICIA ROWLAND [facility] Start: 11-07-2024 End: 11-07-2024 Telephone encounter Abby Andino [facility] Start: 10-31-2024 End: 10-31-2024 ambulatory DARÍOTESHA BANUELOS [facility] Start: 10-18-2024 End: 10-18-2024 Subsequent care visit Darío Banuelos CNM Work Phone: [facility] Comment on above: Type 2 diabetes guerrero itus with hyperosmolarity without coma, without long-term current use of insulin ([facility]) (Primary Dx); Encounter for care of first , second trimester ([facility]) Start: 10-18-2024 End: 10-18-2024 ambulatory DARÍO BANUELOS Not Available Start: 10-18-2024 End: 10-18-2024 Bamboo flowsheet Darío Banuelos CNM Work Phone: [facility] Start: 10-18-2024 End: 10-18-2024 Bamboo flowsheet Darío Banuelos CNM Work Phone: [facility] Start: 10-10-2024 End: 10-10-2024 Office outpatient visit 25 minutes Clarke Modi MD Work Phone: [facility] Comment on above: Pre-existing type 2 diabetes mellitus during in second trimester (Primary Dx) Start: 10-10-2024 End: 10-10-2024 ambulatory CLARKE MODI [facility] Start: 10-09-2024 End: 10-09-2024 Office outpatient visit 15 minutes Awilda Delatorre DO Work Phone: [phone] Comment on above: with type 2 diabetes mellitus in second trimester (Primary Dx); Type 2 diabetes mellitus without complication, without long-term current use of insulin ([facility]) Start: 10-09-2024 End: 10-09-2024 ambulatory AWILDA DELATORRE Not Available Start: 10-03-2024 End: 10-03-2024 ambulatory DARÍO BANUELOS [facility] Start: 09-28-2024 End: 09-28-2024 Subsequent care visit Darío Banuelos CNM Work Phone: [facility] Comment on above: Encounter for prenat al care of first , second trimester (Primary Dx); Type 2 diabetes mellitus without complication, without long-term current use of insulin ([facility]) Start: 09-28-2024 End: 09-28-2024 ambulatory DARÍO [...] 2 diabetes mellitus without complication, unspecified whether mcfp insulin use ([facility]) Start: 09-19-2024 End: 09-19-2024 [facility] Start: 09-18-2024 End: 09-18-2024 Telephone encounter Abby Andino CMA [facility] Start: 09-14-2024 End: 09-14-2024 Chart abstracting Jacque Schneider MD Work Phone: [facility] Start: 09-11-2024 End: 09-11-2024 Telephone encounter Yudelka Randall RN [facility] Start: 09-11-2024 End: 09-11-2024 Office outpatient visit 25 minutes Clarke Modi MD Work Phone: [facility] Comment on above: Pre-existing type 2 diabetes mellitus during in second trimester (Primary Dx); Long Q-T syndrome Start: 09-11-2024 End: 09-11-2024 ambulatory CLARKE MODI [facility] Start: 09-05-2024 End: 09-05-2024 Telephone encounter Sparkle Castillo RN [facility] Start: 09-01-2024 End: 09-01-2024 Office outpatient visit 25 minutes Awilda Delatorre DO Work Phone: [phone] Comment on above: with type 2 diabetes mellitus in second trimester (Primary Dx) Start: 09-01-2024 End: 09-01-2024 ambulatory AWILDA DELATORRE Not Available Start: 08-30-2024 End: 08-30-2024 Subsequent care visit Darío Banuelos CNM Work Phone: [facility] Comment on above: Type 2 diabetes guerrero itus without complication, without long- term current use of insulin ([facility]) Start: 08-28-2024 End: 08-28-2024 Telephone encounter Donna Posadas RN [facility] Start: 08-23-2024 End: 08-23-2024 Office outpatient visit 25 minutes Ariella Mahi PIERRE Work Phone: [facility] Comment on above: Type 2 diabetes guerrero itus without complication, unspecified whether manager long term care insulin use ([facility]) (Primary Dx) Start: 08-23-2024 End: 08-23-2024 ambulatory ARIELLA MAHI [facility] Start: 08-14-2024 End: 08-14-2024 Office outpatient new 45 minutes Svetlana Jack PA-C Work Phone: [facility] Comment on above: with type 2 diabetes mellitus in second trimester (Primary Dx); Long Q-T syndrome Start: 08-14-2024 End: 08-14-2024 ambulatory Shauna Denny RN Work Phone: [facility] Comment on above: Pre-existing type 2 diabetes [...] coma, without long-term current use of insulin ([facility]) Start: 08-03-2024 End: 08-03-2024 ambulatory DARÍO L FLORO Not Available Start: 07-25-2024 End: 07-25-2024 Chart abstracting Scanning Provider External [facility] Start: 07-10-2024 End: 07-10-2024 Subsequent care visit [...] without long- term current use of insulin ([facility]) Start: 06-08-2024 End: 06-08-2024 ambulatory AWILDA CANSECOICK Not Available Start: 05-03-2024 End: 05-03-2024 Telephone encounter Darío Banuelos CNM Work Phone: [facility] Start: 02-28-2024 End: 02-28-2024 ambulatory AWILDA DELATORRE Not Available Start: 07-05-2019 End: 07-06-2019 Patient encounter procedure DARÍOTESHA BANUELOS [facility] Start: 07-05-2019 End: 07-05-2019 Subsequent hospital visit by physician [facility]ERR[facility] Laboratory Procedures Date Procedure Procedure Detail Performing Clinician Start: 01-19-2025 US OB BPP W NON-STRESS Henry Flaco DO Work Phone: Start: 01-18-2025 Hemoglobin glycosyla carola a1c Awilda Cansecoick DO Work Phone: Start: 01-12-2025 US OB BPP W NON-STRESS Henry Flaco DO Work Phone: Start: 01-12-2025 US OB GROWTH Henry Fazi o DO Work Phone: Start: 01-01-2025 Culture bacterial quanttative colony count urine Darío BRAND Work Phone: Start: 12-29-2024 US OB BPP W NON-STRESS Henry Flaco DO Work Phone: Start: 12-25-2024 Urnls dip stick/tabl et rgnt non-auto w/o micrscp Henry Flaco DO Work Phone: Start: 11-08-2024 Ecg routine ecg w/le ast 12 lds w/i&r Tricia Rowland MD Work Phone: Start: 10-09-2024 Hemoglobin glycosyla carola a1c Awilda M Petznick DO Work Phone: Start: 09-19-2024 Ecg routine ecg w/le ast 12 lds w/i&r Aye Saucedo MD Work Phone: Start: 08-14-2024 AMB REFERRAL TO [facility] RNA MEDICINE - DIABETES EDUCATION Darío Banuelos PREDATORY ANIMAL HUNTER-CN Work Phone: Start: 08-14-2024 AMB REFERRAL TO [facility] RNA MEDICINE - NUTRITION EDUCATION Darío Banuelos [employer]EDATORY ANIMAL HUNTER-CN Work Phone: Start: 07-11-2024 CHLAMYDIA/GC BY PCR [...] hin layer prep mnl screen Darío Banuelos CN Work Phone: Start: 07-05-2019 Assay of insulin total DARÍO FLORO Start: 07-05-2019 Hemoglobin glycosyla carola a1c DARÍO FLORO Start: 07-05-2019 Lipid panel DARÍO FL SHAYNE Start: 07-05-2019 Assay of insulin total Darío Sheebao Work Phone: Start: 07-05-2019 Hemoglobin glycosyla carola a1c Darío Sheebao Work Phone: Start: 07-05-2019 Lipid panel Darío Fl shayne Work Phone: Plan of Treatment Date Care Activity Detail Author Start: 11-08-2025 Adult BMI Screening Adult BMI Screen ing [facility] Start: 11-08-2025 Tobacco Screening Tobacco Screening [facility] Start: 09-19-2025 Adult BMI Screening Adult BMI Screen ing [facility] Start: 09-19-2025 Tobacco Screening Tobacco Screening [facility] Start: 09-11-2025 Adult BMI Screening Adult BMI Screen ing [facility] Start: 09-11-2025 Tobacco Screening Tobacco Screening [facility] Start: 08-30-2025 Urine screening for protein Diabetes: Urine Protein Screening [facility] Start: 08-14-2025 Adult BMI Screening Adult BMI Screen ing [facility] Start: 08-14-2025 Tobacco Screening Tobacco Screening [facility] Start: 08-14-2025 End: 08-14-2025 US MFM with or without consult US MFM with or without consult Imaging Routine with type 2 diabetes mellitus in second trimester Expected: 08/14/2025 (Approximate), Expires: 08/14/2025 [facility] Work Phone: Comment on above: Expected: 08/14/2025 (Approximate), Expires: 08/14/2025 Start: 04-20-2025 Hemoglobin A1c measurement Diabetes: Hemoglobin A1C [facility] Start: 04-17-2025 End: 04-17-2025 Patient encounter procedure 04/17/2025 10:30 AM EDT Office Visit [facility] [address] [facility] [address] [place] [address] Awilda Delatorre DO [address] [facility] 230 [place] [address] [facility] 230 Start: 04-16-2025 Influenza vaccination Influenz a Vaccine (Season Ended) [facility] Start: 02-15-2025 End: 02-15-2025 Professional / ancillary services management 02/15/2025 4:00 PM EDT Ancillary Procedure [facility] [address] [facility] [address] [place] [address] [facility] Start: 02-13-2025 End: 02-13-2025 Patient encounter procedure 02/13/2025 4:00 PM EDT Routine [facility] [address] [facility] [place] [address] Darío Banuelos, CNM [address] [facility] [place] [address] [facility] Start: 02-12-2025 End: 02-12-2025 Patient encounter procedure 02/12/2025 4:30 PM EDT Routine [facility] [address] [place] [address] Darío Banuelos, CNM [address] [facility] [place] [address] [facility] Start: 02-09-2025 End: 02-09-2025 Professional / ancillary services management 02/09/2025 4:00 PM EDT Ancillary Procedure [facility] [address] [facility] [address] [place] [address] [facility] Start: 02-06-2025 End: 02-06-2025 Patient encounter procedure [facility] Start: 02-02-2025 End: 02-02-2025 Professional / ancillary services management 02/02/2025 4:00 PM EDT Ancillary Procedure [facility] [address] [place] [address] [facility] Start: 01-30-2025 End: 01-30-2025 Patient encounter procedure 01/30/2025 4:00 PM EDT Routine [facility] [address] [place] [address] Darío Banuelos, CNM [address] [facility] [place] [address] [facility] Start: 01-29-2025 End: 01-29-2025 Patient encounter procedure 01/29/2025 4:30 PM EDT Routine [facility] [address] [place] [address] Darío Banuelos, CNM [address] [facility] [place] [address] [facility] Start: 01-26-2025 End: 01-26-2025 Professional / ancillary services management 01/26/2025 4:00 PM EDT Ancillary Procedure [facility] [address] [facility] [address] [place] [address] [facility] Start: 01-23-2025 End: 01-23-2025 Patient encounter procedure 01/23/2025 4:00 PM EDT Routine [facility] [address] [place] [address] Darío Banuelos, CNM [address] [facility] [place] [address] [facility] Start: 01-22-2025 End: 01-22-2025 Patient encounter procedure 01/22/2025 4:30 PM EDT Routine [facility] [address] [place] [address] Darío Banuelos, CNM [address] [facility] [place] [address] [facility] Start: 01-22-2025 End: 01-22-2026 STREPTOCCOUS, GROUP B CULTURE STREPTOCCOUS, GROUP B CULTURE Lab Routine screening for streptococcus B Expected: 01/22/2025 (Approximate), Expires: 01/22/2026 [facility] Work Phone: Comment on above: Expected: 01/22/2025 (Approximate), Expires: 01/22/2026 Start: 01-19-2025 End: 01-19-2025 Professional / ancillary services management 01/19/2025 9:15 AM EDT Ancillary Procedure [facility] [address] [place] [address] [facility] Start: 01-18-2025 End: 01-18-2025 Patient encounter procedure [facility] 230 Comment on above: with type 2 diabetes mellitus in third trimester Start: 01-16-2025 End: 01-16-2025 Patient encounter procedure 01/16/2025 4:00 PM EDT Routine [facility] [address] [place] [address] Darío Banuelos, CNM [address] [place] [address] [facility] Start: 01-15-2025 End: 01-15-2025 Patient encounter procedure [facility] Comment on above: Arrived Start: 01-12-2025 End: 01-12-2025 Professional / ancillary services management 01/12/2025 4:00 PM EDT Ancillary Procedure [facility] [address] [phone] [facility] Start: 01-09-2025 End: 01-09-2025 Patient encounter procedure 01/09/2025 4:00 PM EDT Routine [facility] [address] [place] [address] Darío Banuelos, CNM [address] [place] [address] [facility] Start: 01-06-2025 Hemoglobin A1c measurement Diabetes: Hemoglobin A1C [facility] Start: 01-05-2025 End: 01-05-2025 Professional / ancillary services management 01/05/2025 9:15 AM EDT Ancillary Procedure [facility] [address] [address] [facility] Start: 01-03-2025 Urine screening for protein Diabetes: Urine Protein Screening [facility] Start: 01-02-2025 End: 01-02-2025 Patient encounter procedure 01/02/2025 4:00 PM EDT Routine [facility] [address] [place] [address] Darío Banuelos, CNM [address] [place], [place] [address] [facility] Start: 01-01-2025 End: 01-01-2025 Patient encounter procedure 01/01/2025 4:30 PM EDT Routine [facility] [address] [place] [address] Vin Darío L, CNM [address] [facility] [place] [address] [facility] Start: 12-29-2024 End: 12-29-2024 Professional / ancillary services management 12/29/2024 4:00 PM EDT Ancillary Procedure [facility] [address] [place] [address] [facility] Start: 12-26-2024 End: 12-26-2024 Patient encounter procedure 12/26/2024 4:00 PM EDT Routine [facility] [address] [place] [address] Vin Darío L, CNM [address] [facility] [place] [address] [facility] Start: 12-26-2024 End: 12-26-2025 [...] Ancillary Procedure [facility] [address] [facility] [address] [place] [phone] [facility] Start: 12-11-2024 End: 12-11-2024 [...] [address] [place] [phone] Awilda Delatorre, [address] [place] [address] [facility] 230 Start: 11-15-2024 End: 11-15-2024 Patient encounter procedure 11/15/2024 4:30 PM EDT Routine [facility] [address] [place] [address] Darío Banuelos, SADIA [address] [place], [place] [phone] Arrived [facility] Comment on above: Arrived Start: 11-15-2024 End: 11-15-2025 US for US OB follow up transabdominal approach Imaging Routine related condition in third trimester Expected: 11/15/2024, Expires: 11/15/2025 [facility] Work Phone: Comment on above: Expected: 11/15/2024 , Expires: 11/15/2025 Start: 11-08-2024 End: 11-08-2024 Patient encounter procedure 11/08/2024 9:30 AM EDT Office Visit [facility] [address] [place] [address] Aye Saucedo MD [address] [place] [address] Tricia Rowland MD [address] [place] [address] [facility] Start: 10-31-2024 End: 10-31-2024 Patient encounter procedure 10/31/2024 8:00 AM EDT Appointment [facility] - Ultrasound [address] [place] [address] [facility] - [facility] Start: 10-18-2024 End: 10-18-2024 Patient encounter procedure [facility] Comment on above: Arrived Start: 10-10-2024 Hemoglobin A1c measurement Diabetes: Hemoglobin A1C [facility] Start: 10-10-2024 End: 10-10-2024 Telemedicine consultation with patient 10/10/2024 11:30 AM EST Telemedicine Maternal- Medicine at [facility] [address] [place] [address] Clarke Modi MD [address] [place] [address] Maternal- Medicine at [facility] Start: 10-09-2024 End: 10-09-2024 Patient encounter procedure 10/09/2024 3:45 PM EST Office Visit [facility] [address] [place] [address] Awilda Delatorre DO [address] [place] [address] [facility] 230 Start: 10-03-2024 End: 10-03-2024 Patient encounter procedure 10/03/2024 10:00 AM EST Appointment [facility] - Ultrasound [address] [place] [address] [facility] Start: 09-28-2024 End: 09-28-2024 Patient encounter procedure [facility] Comment on above: Arrived Start: 09-25-2024 End: 09-25-2024 Patient encounter procedure 09/25/2024 8:30 AM EST Appointment [facility] US Imaging [address] [place] [address] [facility] Start: 09-19-2024 End: 09-19-2024 Patient encounter procedure 09/19/2024 8:15 AM EST Office Visit [facility] [address] [address] Jacque Schneider MD [address] [place] [address] [facility] Start: 09-11-2024 End: 09-11-2024 Patient encounter procedure 09/11/2024 8:00 AM EST Office Visit Maternal- Medicine at [facility] [address] [place] [address] Clarke Modi MD [address], [address] [place] [address] Maternal- Medicine at [facility] Start: 09-08-2024 Hemoglobin A1c measurement Diabetes: Hemoglobin A1C [facility] Start: 08-30-2024 End: 08-30-2024 Patient encounter procedure 08/30/2024 4:30 PM EST Office Visit [facility] [address] [place] [address] Darío Banuelos CNM [address] [facility] [place] [address] [facility] Start: 08-23-2024 End: 08-23-2024 Telemedicine consultation with patient 08/23/2024 2:00 PM EST Telemedicine Maternal- Medicine at [facility] [address] [facility] [place] [phone] Ariella Roberto, PREDATORY ANIMAL HUNTER-PACKAGING TECH [address] [facility] [place] [address] Maternal- Medicine at [facility] Start: 08-14-2024 End: 11-12-2024 Protein creat ratio Protein creat ratio Lab Routine with type 2 diabetes mellitus in second trimester Expected: 08/14/2024 (Approximate), Expires: 11/12/2024 [facility] Comment on above: Expected: 08/14/2024 (Approximate), Expires: 11/12/2024 Start: 08-14-2024 End: 08-14-2024 Patient encounter procedure 08/14/2024 11:00 AM EST Office Visit Maternal- Medicine at [facility] [address] [facility] [place] [address] Svetlana Jack PA-C [address] [facility] [address] [address] Maternal- Medicine at [facility] Start: 08-14-2024 End: 08-14-2024 ambulatory 08/14/2024 8:30 AM EST Support Visit Maternal- Medicine at [facility] [address] [place] [address] Shauna Denny, RN [address] [facility] [place] [address] Maribell Amin, RD [address] [facility], [address] [place] [address] Maternal- Medicine at [facility] Start: 08-03-2024 End: 08-03-2024 Patient encounter procedure 08/03/2024 8:30 AM EST Routine [facility] [address] [place] [address] Darío Banuelos, [facility] [address] [place] [address] Arrived [facility] Comment on above: Arrived Start: 07-10-2024 End: 07-10-2024 Patient encounter procedure 07/10/2024 3:45 PM EST Routine [facility] [address] [place] [address] Darío Banuelos, [facility] [address] [place] [address] Arrived [facility] Comment on above: Arrived Start: 05-30-2024 Hemoglobin A1c measurement Diabetes: Hemoglobin A1C [facility] Start: 05-30-2024 End: 05-30-2024 Patient encounter procedure 05/30/2024 8:45 AM EDT Office Visit [facility] [address] [place] [address] Awilda Delatorre, [address] [place] [address] [facility] 230 Start: 04-16-2024 Influenza vaccination N [facility] Start: 09-06-2019 DTaP,Tdap and Td Vaccines (8 - Td or Tdap) DTaP,Tdap and Td Vaccines (8 - Td or Tdap) [facility] Start: 04-16-2019 Influenza vaccination Flu vaccine (# 1) [place], [place] Start: 2016 Cervical cancer screen Cervical canc er screen [place], [place] Start: 2016 Screening for malign ant neoplasm of cervix Pap Smear [facility] Start: 2014 DTaP,Tdap and Td Vaccines (1 - Tdap) DTaP,Tdap and Td Vaccines (1 - Tdap) [facility] Start: 2014 Urine screening for protein Diabetes: Urine Protein Screening [facility] Start: 2013 Adult BMI Follow Up Plan Adult BMI Follow Up Plan [facility] Start: 2013 Adult BMI Screening Adult BMI Screen ing [facility] Start: 2013 Diabetic foot examination Diabetic Foot Exam [facility] Start: 2011 Chlamydia screen Chlamydia screen [place], [place] Start: 2010 HIV screen HIV screen [place], [place] Start: 2007 Depression Screening Depression Scre ening [facility] Start: 2007 Tobacco Screening Tobacco Screening [facility] Start: 2006 DTaP/Tdap/Td vaccine (1 - Tdap) DTaP/Tdap/Td vaccine (1 - Tdap) [place], [place] Start: 2006 HPV vaccine (1 - Fem tarun 2-dose series) HPV vaccine (1 - Female 2-dose series) [place], [place] Start: 2005 Glaucoma screening Diabetes: R etinopathy Screening [facility] Start: 1996 Varicella Vaccine (1 of 2 - 2-dose childhood series) Varicella Vaccine (1 of 2 - 2-dose childhood series) [place], [place] Start: 1995 Glaucoma screening Diabetic Op hthalmology Exam [facility] Start: 1995 Urine screening for protein Urine Microalbumin [facility] End: 08-14-2025 Comprehensive metabolic 2000 panel - Serum or Plasma Comprehensive metabolic panel Lab Routine with type 2 diabetes mellitus in second trimester 1 Occurrences starting 08/14/2024 until 08/14/2025 [facility] Work Phone: Comment on above: 1 Occurrences starti ng 08/14/2024 until 08/14/2025 End: 08-14-2025 ECG 12 lead ECG 12 lead ECG Routine with type 2 diabetes mellitus in second trimester Long Q-T syndrome 1 Occurrences starting 08/14/2024 until 08/14/2025 [facility] Comment on above: 1 Occurrences starti ng 08/14/2024 until 08/14/2025 End: 08-14-2025 Thyroid profile includes TSH FT4 Thyroid profile includes TSH FT4 Lab Routine with type 2 diabetes mellitus in second trimester 1 Occurrences starting 08/14/2024 until 08/14/2025 [facility] Comment on above: 1 Occurrences starti ng 08/14/2024 until 08/14/2025 Immunizations Immunization Date Immunization Notes Care Provider Marilee painter 09-06-2009 tetanus toxoid, redu keron diphtheria toxoid, and acellular pertussis vaccine, adsorbed Darío Floro [facility] Work Phone: [facility] 08-25-2007 meningococcal polysaccharide (groups A, C, Y and W-135) diphtheria toxoid conjugate vaccine (MCV4P) Darío Floro [facility] Work Phone: [facility] 08-25-2007 tetanus toxoid, redu keron diphtheria toxoid, and acellular pertussis vaccine, adsorbed Darío Floro CN Work Phone: [facility] 08-25-2007 varicella virus vaccine [place] gabbie Floro [facility] Work Phone: [facility] 09-06-2000 diphtheria, tetanus toxoids and acellular pertussis vaccine, unspecified formulation Darío Floro CN Work Phone: [facility] 09-06-2000 measles, mumps and r ubella virus vaccine Darío Floro CN Work Phone: [facility] 09-06-2000 poliovirus vaccine, unspecified formulation Darío Floro CN Work Phone: [facility] 12-24-1996 varicella virus vaccine [place] gabbie Floro CN Work Phone: [facility] 10-12-1996 diphtheria, tetanus toxoids and acellular pertussis vaccine, unspecified formulation Darío Floro CNM Work Phone: [facility] 10-12-1996 haemophilus influenz ae type b vaccine, conjugate unspecified formulation Darío Floro CNM Work Phone: [facility] 10-12-1996 measles, mumps and r ubella virus vaccine Darío Floro CNM Work Phone: [facility] 02-25-1996 diphtheria, tetanus toxoids and acellular pertussis vaccine, unspecified formulation Darío Floro CNM Work Phone: [facility] 02-25-1996 haemophilus influenz ae type b vaccine, conjugate unspecified formulation Darío Floro CNM Work Phone: [facility] 02-25-1996 hepatitis B vaccine, pediatric or pediatric/adolescent dosage Darío Floro CNM Work Phone: [facility] 02-25-1996 poliovirus vaccine, unspecified formulation Darío Floro CNM Work Phone: [facility] 1995 diphtheria, tetanus toxoids and acellular pertussis vaccine, unspecified formulation Darío Floro CNM Work Phone: [facility] 1995 haemophilus influenz ae type b vaccine, conjugate unspecified formulation Darío Floro CNM Work Phone: [facility] 1995 poliovirus vaccine, unspecified formulation Darío Floro CNM Work Phone: [facility] 1995 diphtheria, tetanus toxoids and acellular pertussis vaccine, unspecified formulation Darío Floro CNM Work Phone: [facility] 1995 haemophilus influenz ae type b vaccine, conjugate unspecified formulation Darío Floro CNM Work Phone: [facility] 1995 hepatitis B vaccine, pediatric or pediatric/adolescent dosage Darío Floro CNM Work Phone: [facility] 1995 poliovirus vaccine, unspecified formulation Darío Banuelos CN Work Phone: [facility] 1995 hepatitis B vaccine, pediatric or pediatric/adolescent dosage Darío Banuelos [facility] Work Phone: [facility] Payers Date Payer Category Payer Unknown BCBS BCBS OUT OF STATE xxxxxxxxxxxx 2019-Present [address] [place] [address] xxxxxxxxxxxx [id number] 2019 Blue Cross Blue Shield BCBS [id number] 2019 Blue Cross Blue [facility] - Other [id number] 2019 Unknown [id number] 2016 Unknown [id number] [id number]. [id number] 1995 Unknown [id number] 2.16.840.1.134099.3.579.2. 173 1995 Unknown [id number] 2.16.840.1.753914.3.579.2. 1286 1995 Unknown [id number] 2.16.840.1.943008.3.579.2. 1286 1995 Unknown [id number] 2.16.840.1.925195.3.579.2. 1286 1995 Unknown [id number] 2.16.840.1.898869.3.579.2. 1286 1995 Unknown [id number] 2.16.840.1.693128.3.579.2. 1286 1995 Unknown [id number] 2.16.840.1.753637.3.579.2. 128 1995 Unknown [id number] 2.16.840.1.966006.3.579.2. 1286 1995 Unknown [id number] 2.16.840.1.427564.3.579.2. 1285 1995 Unknown [id number] 2.16.840.1.445572.3.579.2. 6 1995 Unknown [id number] 2.16.840.1.196707.3.579.2. 128 1995 Unknown [id number] 2.16.840.1.620342.3.579.2. 1286 1995 Unknown [id number] 2.16.840.1.284328.3.579.2. 9 1995 Unknown [id number] 2.16.840.1.271608.3.579.2. 9 1995 Unknown [id number] 2.16.840.1.769613.3.579.2. 9 1995 Unknown [id number] 2.16.840.1.018918.3.579.2. 9 1995 Unknown [id number] 2.16.840.1.893236.3.579.2. 1258 1995 Unknown [id number] 2.16.840.1.015192.3.579.2. 9 1995 Unknown [id number] 2.16.840.1.539576.3.579.2. 1258 1995 Unknown [id number] 2.16.840.1.458805.3.579.2. 9 1995 Unknown [id number] 2.16.840.1.144881.3.579.2. 1258 1995 Unknown [id number] 2.16.840.1.481254.3.579.2. 1258 1995 Unknown [id number] 2.16.840.1.698159.3.579.2. 1258 1995 Unknown [id number] 2.16.840.1.814278.3.579.2. 1258 1995 Unknown [id number] 2.16.840.1.200102.3.579.2. 1258 1995 Unknown [id number] 2.16.840.1.101621.3.579.2. 1258 1995 Unknown [id number] 2.16.840.1.929712.3.579.2. 1258 1995 Unknown [id number] 2.16.840.1.766110.3.579.2. 1258 1995 Unknown [id number] 2.16.840.1.764510.3.579.2. 1258 1995 Unknown [id number] 2.16.840.1.926860.3.579.2. 9 1995 Unknown [id number] 2.16.840.1.234177.3.579.2. 1258 1995 Unknown [id number] 2.16.840.1.925679.3.579.2. 9 Social History Date Type Detail [facility] Start: 1995 Sex Assigned At Not on file [facility] Start: 02-10-2023 End: 07-25-2024 Tobacco smoking status NHIS Never smoked tobacco [facility] Start: 02-10-2023 End: 07-25-2024 Tobacco use and exposure Smokeless tobacco non-user [facility] Start: 06-08-2024 End: 10-09-2024 Alcoholic beverage intake Current drinker of alcohol (finding) [facility] Start: 04-09-2023 End: 06-07-2024 History of Social function [facility] Start: 04-09-2023 End: 06-07-2024 [id number] Health [...] to any clubs or organizations such as hinduism groups, unions, fraternal [...] / monthly or less. Caffeine: 1-2 cups/day [facility] Start: 1995 Sex assigned at Female [facility] Start: 02-08-2023 Gender identity Identifies as female gender (finding) [facility] Start: 05-16-2024 [facility] Start: 08-14-2024 End: 11-09-2024 Alcoholic beverage intake Ex-drinker (finding) [facility] Start: 03-19-2015 End: 07-25-2024 Sex Female (finding) [facility] Medical Equipment Procedure Code Equipment Code Equipment Origin al Text Equipment Identifier Dates [id number] Start: 11-29-2023 End: 11-28-2024 Check urine for ketones if blood sugar/glucose 200 or above daily as needed. Use as directed. [id number] Start: 08-14-2024 USE DIRECTED FIVE TIMES DAILY [id number] Start: 10-03-2024 Functional Status Date Assessment Result Facility 01-18-2025 Patient Health Quest ionnaire 2 item (PHQ-2) [Reported] [facility] 12-07-2024 Patient Health Quest ionnaire 2 item (PHQ-2) [Reported] [facility] 10-09-2024 Patient Health Quest ionnaire 2 item (PHQ-2) [Reported] [facility] Clinical Notes 05-03-2024 to 01-22-2025 Darío Banuelos, CATHIE - 01/22/2025 4:30 PM Sal Delatorre, - 01/18/2025 10:17 AM Sal Delatorre, - 01/18/2025 8:30 AM EDTDarío Banuelos [facility] - 01/15/2025 4:30 PM EDT Note Date & Type Note Facility 01-22-2025 History of Presen t illness Narrative Subjective No chief complaint on file. Reginald Reyes is a 29 y.o. at 36w0d [...] Type 2 diabetes mellitus treated with insulin ([facility]) Glucose log reviewed, patient states Dr Crowley adjusted her insulin as her glucose levels were going low. Med list is current in [facility]. Continue vitamin. Labs reviewed. GBS taken. Expected mode of delivery vaginal Follow up in 1 week for a routine visit. documented in this encounter [facility] 01-18-2025 History of Presen t illness Narrative Associated [...] day basal insulin while she is nursing. Images from the original note were not [...] large meals (max daily 50 units) as of 12/07/2024 8:25 AM Insulin Lispro 1-2 units breakfast, 5-12 units lunch/dinner (max daily 50 units) (100 UNIT/ML SOPN) 1-2 units breakfast, 5-12 units lunch/dinner (max daily 50 units) (100 UNIT/ML SOPN) Insulin NPH Human (Isophane) 10 units am and 20 units pm (100 UNIT/ML SUPN) -Discontinued (Dose adjustm) Patient taking differently: 10 units am and 17 units pm as of 12/07/2024 8:25 AM Insulin NPH Human (Isophane) 10 units am and 17 units pm (100 UNIT/ML SUPN)-Discontinued (Dose adjustm) 10 units am and 17 units pm (100 UNIT/ML SUPN) Insulin NPH Human (Isophane) 8 units am and 14 units pm (100 UNIT/ML SUPN) metFORMIN HCl 1/2 tablet in the am and 1 tablet in the evening (1000 MG TABS) 1/2 tablet in the am and 1 tablet in the evening (1000 MG TABS) Labs [facility] HEMOGLOBIN A1C/HEMOGLOBIN.TOTAL:MFR:PT:BLD: QN: 6.1 Outpatient prescription Medication marked as long-term [...] 78 74 Heart Rate 88 Temp 98 F Height (in) 5' 10 Weight (lb) [...] UNIT/ML INJECTION 1-2 units breakfast, 5-12 units lunch/dinner (max daily 50 units) INSULIN PEN NEEDLE (B-D [...] the patient today. documented in this encounter [facility] 01-15-2025 History of Presen t illness Narrative [...] 0 0 # Outcome Date GA Lbr Giogrio/2nd Weight Sex Type Anes PTL Lv 1 [...] a routine visit. documented in this encounter [facility] 01-09-2025 History of Presen t illness [...] a routine visit. documented in this encounter [facility] 01-01-2025 History of Presen t illness Narrative Subjective No chief complaint on file. Reginald Reyes is a 29 y.o. at 33w0d with a working estimated date of delivery of 02/19/2025, by Ultrasound who presents for a routine visit. She denies vaginal bleeding, leakage of fluid, decreased movements, or contractions. OB History Para Term AB Living 1 0 0 0 0 0 SAB IAB Ectopic Multiple Live Births 0 0 0 0 0 # Outcome Date GA Lbr Goirgio/2nd Weight Sex Type Anes PTL Lv 1 Current Her is complicated by: Type 2 diabetes, requiring insulin Pt states that she noticed some blood on the toilet paper after she wiped laat Wednesday. It only happened that one time and it was just a little bit. Patient states her testing at [facility] was normal on Wednesday, she has had no spotting since then, Baby is moving all over, She has not had sex. Will send urine for a culture. Objective Physical Exam Weight: 239 lb Expected Total Weight Gain: 11 lb-19 lb Pregravid BMI: 35.30 BP: 120/72 Urine protein-negative Urine glucose-negative Assessment/Plan Diagnoses and all orders for this visit: Screening for iron deficiency anemia Dysuria - Urine culture; Future Continue vitamin. Labs reviewed. GBS taken. Expected mode of delivery Follow up in 1 week for a routine visit. documented in this encounter [facility] 12-26-2024 History of Presen t illness [...] will do all nst's and bpp's at [place] per Dr Sam Objective Physical Exam Weight: [...] a routine visit. documented in this encounter [facility] 12-25-2024 History of Presen t illness [...] nursing note reviewed. Exam conducted with a teletype telegrapher present. Vitals: Estimated body mass index is [...] presents today for referral from [facility] due to Type 2 Diabetes and . Patient is setup for NST/BPP Bi-Weekly/Weekly at [facility]'s office. Patient voiced that she was seen at [facility] for anatomy Scan. Advised patient that it is preferred to have NST/BPP at [facility] for co-management in . Patient is agreeable with having location changed. Order will be given to patient today to have setup at [facility]. Discussed delivery with patient and if sugars are controlled well with insulin then she will be able to delivery at 39 weeks gestation, but if sugars are not well controlled then delivery would be recommended at 38 weeks to prevent issues with placenta. Patient is currently taking Aspirin 81mg daily. FHT 145, patient to continue care with [facility] and reach out to office with any concerns. Documented by Estelle Hughes LPN on behalf of: Henry Sam DO documented in this encounter [facility] 12-11-2024 History of Presen t illness [...] during . Managed by Awilda Crowley in [place]. Did see MFM Objective Physical Exam Expected [...] a routine visit. documented in this encounter [facility] 12-07-2024 History of Presen t illness [...] in the evening (1000 MG TABS) Labs [facility] HEMO[facility]IN A1C/HEMOGLOBIN.TOTAL:MFR:PT:BLD: QN: 5.7 Outpatient prescription Medication [...] the patient today. documented in this encounter [facility] 11-15-2024 History of Presen t illness [...] a routine visit. documented in this encounter [facility] 11-08-2024 History of Presen t illness Narrative Reginaldphylicia Reyes Date of visit: 11/08/2024 Date of : 1995 Age: 29 y.o. Patient Active Problem List Diagnosis Abnormal glucose Insulin resistance Mixed hyperlipidemia PCOS (polycystic ovarian syndrome) Type 2 diabetes mellitus without complication ([facility]) Pre-existing type 2 diabetes mellitus during in [...] by mouth in the morning. 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 She followed up with a podopediatrician but no intervention was performed since the [...] Past Medical History: Diagnosis Date Diabetes mellitus ([facility]) Hyperlipidemia Insulin resistance Long Q-T syndrome [...] Resource Strain: Low Risk (06/07/2024) Received from [facility] Overall Financial Resource Strain (CARDIA) Difficulty of Paying Living Expenses: Not hard at all Food Insecurity: No Food Insecurity (11/08/2024) Hunger Screening Food Insecurity - Worry: Never True Food Insecurity - Inability: Never True Transportation Needs: No Transportation Needs (06/07/2024) Received from [facility] PRAPARE - Transportation Lack of Transportation (Medical): No Lack of Transportation (Non-Medical): No Physical Activity: Sufficiently Active (06/07/2024) Received from [facility] Exercise Vital Sign Days of Exercise per Week: 5 days Minutes of Exercise per Session: 30 min Stress: No Stress Concern Present (06/07/2024) Received from [facility] [place] [facility] Occupational Health - Occupational Stress Questionnaire Feeling of Stress : Not at all Social Connections: Socially Integrated (06/07/2024) Received from [facility] Social Connection and Isolation Panel [NHANES] [...] Safety: Not At Risk (04/09/2023) Received from [facility], [facility] Humiliation, Afraid, Rape, and Kick questionnaire Fear of Current or Ex-Partner: No Emotionally Abused: No Physically Abused: No Sexually Abused: No Housing Instability: Low Risk (06/07/2024) Received from [facility] Housing Stability Vital Sign Unable to [...] - [facility] - Elect[facility]iology - [place], [place] - [facility] EKG 2. Hx of prolonged Q-T interval [...] Physician: Aye Saucedo MD [address] [place] [address] documented in this encounter [facility] 11-07-2024 Miscellaneous Notes [employer] MESSAGE REMINDER SENT TO PT TO REMIND OF PPC APPT. documented in this encounter [facility] 11-07-2024 Telephone encounter Note [employer] MESSAGE REMINDER SENT TO PT TO REMIND OF PPC APPT. [facility] 10-18-2024 History of Presen t illness Narrative Subjective No chief complaint on file. Reginald Reyes is a 29 y.o. at 22w2d with a working estimated date of delivery [...] Lv 1 Current Her is complicated by: diabetes, type 2 The following portions of the chart were reviewed this encounter and updated as appropriate: Objective Physical Exam weight: 238 lb Expected Total Weight Gain: 11 lb-19 lb Pregravid BMI: 35.30 BP: 120/60 Urine protein-negative Urine glucose-negative Labs: reviewed Imaging Assessment/Plan Diagnoses and all orders for this visit: Type 2 diabetes mellitus with hyperosmolarity without coma, without long-term current use of insulin ([facility]) Encounter for care of first , second trimester ([facility]) Continue vitamin. Labs reviewed. Rhogam GTT not doing due to already being type 2 diabetic Follow up in 4 weeks for a routine visit. documented in this encounter [facility] 10-10-2024 History of Presen t illness Narrative REASON FOR TELEMEDICINE VIDEO OFFICE VISIT: Suspected Maternal prolonged QT ruled out. HISTORY OF PRESENT ILLNESS: Reginald Reyes is a pleasant 29 y.o. G 1 P0 at 21w1d due on Estimated Date of Delivery: 02/19/25 . has been complicated with Pre gestational type 2 diabetes on insulin. Patient diabetes is managed by her dispatcher chief oil and not by [facility]. Patient is comfortable with her dispatcher chief oil. Blood glucose are adequately controlled. Suspected prolonged QT syndrome. Patient was told as a child so she might a borderline prolonged QT syndrome. No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 Michael t Referred To Contact Obstetrics and Gynecology Diagnoses Encounter for care of first , first trimester ([facility]) Type 2 diabetes mellitus with hyperosmolarity without coma, without long-term current use of insulin ([facility]) Procedures [place] OFFICE/OUTPATIENT NEW HIGH MDM Darío Banuelos CNM [address] [place] [address] Phone: tel: fax: Darío Banuelos CNM [address] [place] [address] Phone: tel: fax: Referral ID Status Reason Start Date Expiration Date V isits Requested Visits Authorized [id number] Closed Specialty Services Required 08/03/2024 01/30/2025 1 1 [facility] Advance Directives Documents on File Type Date Recorded 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 Advance Directives and Living Will Power of Sports Internship Summary Purpose Family History No Family History Records FoundNo Family History Records FoundNo Family History Records FoundNo Family History Records FoundNo Family History Records Found Additional Source Comments INFORMATION SOURCE (unrecogn ized section and content) DATE CREATED AUTHOR 07/06/2019 Randi Moore [facility] DATE CREATED AUTHOR AUTHOR'S ORGANIZ ATION 08/14/2024 [facility] DATE CREATED AUTHOR AUTHOR'S ORGANIZ ATION 10/12/2024 [facility] DATE CREATED AUTHOR AUTHOR'S ORGANIZ ATION 11/09/2024 [facility] DATE CREATED AUTHOR AUTHOR'S ORGANIZ ATION 01/23/2025 [facility] dical Specialists EPIC Reason for Visit (unrecogniz ed section and content) Reason Comments Diabetes Reason Comments Type 2 Diabetes affecting Specialty Diagnoses / Procedures Referred By Contac t Referred To Contact Maternal and Medicine Diagnoses Pre-existing type 2 diabetes mellitus in in first trimester Darío Banuelos APRN-SADIA [address] [place] [address] Phone: tel: fax: Maternal- Medicine at [facility] [address] [place] [address] Phone: tel: fax: Referral ID Status Reason Start Date Expiration Date Visits Requested Visits Authorized [id number] Pending Review Specialty Services Required 4 07/25/2025 1 1 Reason Comments T2DM Reason Comments Gestational Diabetes Reason Comments Type 2 Diabetes Reason Comments New Patient GUEST ADVISOR REF - Long Q-T sy ndrome SEEN CARDIO A CHILD 10 + YRS AGO SCHED W/PT Specialty Diagnoses / Procedures Referred By Contac t Referred To Contact Cardiology Diagnoses Long Q-T syndrome Svetlana Jack, PAAnnitaC [address] [place] [address] Phone: tel: fax: [facility] [address] [place] [address] Phone: tel: fax: Referral ID Status Reason Start Date Expiration Date Visits Requested Visits Authorized [id number] Pending Review Specialty Services Required 4 08/14/2025 1 1 Reason Comments New Patient GUEST ADVISOR - ref by RRK for long QT syndrome - no labs/testing - appt sched w/ pt PATIENT IS 25 WEEKS Specialty Diagnoses / Procedures Referred By Contac t Referred To Contact Cardiology Diagnoses Long Q-T syndrome Aye Saucedo MD [address] [place] [address] Phone: tel: fax: [facility] [address] [place] [phone] Phone: tel: fax: Referral ID Status Reason Start Date Expiration Date Visits Requested Visits Authorized [id number] Pending Review Specialty Services Required 09/19/2024 09/19/2025 1 1 Reason Comments Consult Patient is a Wanda Donnell ro referral to Dr. Sam for Type II diabetes insulin required. Specialty Diagnoses / Procedures Referred By Contac t Referred To Contact Obstetrics and Gynecology Diagnoses with type 2 diabetes mellitus in third trimester Procedures FL OFFICE/OUTPATIENT NEW HIGH MDM 60 MINUTES Darío Banuelos L, CNM [address] [place] [address] Phone: tel: fax: Henry Sam, [address] [place] [address] Phone: tel: fax: Referral ID Status Reason Start Date Expiration Date V isits Requested Visits Authorized [id number] Closed Specialty Services Required 12/20/2024 06/18/2025 1 1 Care Teams (unrecognized sec tion and content) Incinerator Plant Supervisor Relationship Specialty Start Date End Date Unallocated, MD Reynaldo Maki0 [address] [place] [address] PCP - General 04/16/23 Awilda Delatorre DO [address] [place] [address] PCP - Gholson Commercial 06/16/23 Darío Banuelos CNM [address] [place] [address] Obstetrics and Gynecology 02/10/23 Incinerator Plant Supervisor Relationship Specialty Start Date End Date Unallocated, [place] [address] PCP - General 04/16/23 Awilda Delatorre, [address] [place] [address] PCP - Gholson Commercial 06/16/23 Darío Banuelos CNM [address] [place] [address] Obstetrics and Gynecology 02/10/23 Incinerator Plant Supervisor Relationship Specialty Start Date End Date Unallocated, MD Bri Maki [place] [address] PCP - General 04/16/23 Awilda Delatorre, DO [address] [place] [address] PCP - Gholson Commercial 06/16/23 Darío Banuelos CNM [address] [facility] [place] [address] Obstetrics and Gynecology 02/10/23 Incinerator Plant Supervisor Relationship Specialty Start Date End Date Unallocated, Noms MD Dian [address] [facility] [place] [address] PCP - General 04/16/23 Awilda Delatorre, DO [address] [place] [address] PCP - Gholson Commercial 06/16/23 Darío Banuelos CNM [address] [place] [facility] [place] [address] Obstetrics and Gynecology 02/10/23 Incinerator Plant Supervisor Relationship Specialty Start Date End Date Darío Banuelos APRN-SADIA [address] [facility] [address] PCP - General Nurse Final Inspector Motorcyles 04/15/18 Incinerator Plant Supervisor Relationship Specialty Start Date End Date Darío Banuelos APRN-SADIA [address] [facility] [place] [address] PCP - General Nurse Final Inspector Motorcyles 04/15/18 Incinerator Plant Supervisor Relationship Specialty Start Date End Date Darío Banuelos APRN-SADIA [address] [facility] [place] [address] PCP - General Nurse Final Inspector Motorcyles 04/15/18 Incinerator Plant Supervisor Relationship Specialty Start Date End Date Darío Banuelos PREDATORY ANIMAL HUNTER-CNM [address] [place] [address] PCP - General Nurse Final Inspector Motorcyles 04/15/18 Incinerator Plant Supervisor Relationship Specialty Start Date End Date Darío Banuelos PREDATORY ANIMAL HUNTER-CNM [address] [place] [address] PCP - General Nurse Final Inspector Motorcyles 04/15/18 Incinerator Plant Supervisor Relationship Specialty Start Date End Date Unallocated, Noms Provider, [address] [place] [address] PCP - General 04/16/23 Awilda Delatorre, [address] [place] [address] PCP - Gholson Commercial 06/16/23 Darío Banuelos CNM [address] [place] [address] Obstetrics and Gynecology 02/10/23 Incinerator Plant Supervisor Relationship Specialty Start Date End Date Darío Banuelos PREDATORY ANIMAL HUNTER-CNM [address] [facility] [place] [address] PCP - General Nurse Final Inspector Motorcyles 04/15/18 Incinerator Plant Supervisor Relationship Specialty Start Date End Date Lin Banuelosmago PREDATORY ANIMAL HUNTER-CNM [address] [place] [address] PCP - General Nurse Final Inspector Motorcyles 04/15/18 Incinerator Plant Supervisor Relationship Specialty Start Date End Date Vin Darío, PREDATORY ANIMAL HUNTER-CNM [address] [place] [address] PCP - General Nurse Final Inspector Motorcyles 04/15/18 Incinerator Plant Supervisor Relationship Specialty Start Date End Date [facility] [address] [place] [address] PCP - General Nurse Final Inspector Motorcyles 04/15/18 Incinerator Plant Supervisor Relationship Specialty Start Date End Date Unallocated, Francisco Javiers MD Dian [address] [place] [address] PCP - General 04/16/23 Awilda Delatorre, DO [address] [place] [address] PCP - Gholson Commercial 06/16/23 Darío Banuelos CN [address] [place] [address] Obstetrics and Gynecology 02/10/23 Incinerator Plant Supervisor Relationship Specialty Start Date End Date Unallocated, Danay Biggs MD [address] [place] [address] PCP - General 04/16/23 Awilda Delatorre, DO [address] [facility] [address] [place] [address] PCP - Gholson Commercial 06/16/23 Darío Banuelos CN [address] [place] [address] Obstetrics and Gynecology 02/10/23 Incinerator Plant Supervisor Relationship Specialty Start Date End Date Unallocated, Danay Biggs MD [address] [place] [address] PCP - General 04/16/23 Awilda Delatorre, DO [address] [place] [address] PCP - Gholson Commercial 06/16/23 Darío Banuelos CNM [address] [facility] [place] [address] Obstetrics and Gynecology 02/10/23 Incinerator Plant Supervisor Relationship Specialty Start Date End Date Darío BanuelosBAMBISADIA [address] [place] [address] PCP - General Nurse Final Inspector Motorcyles 04/15/18 Incinerator Plant Supervisor Relationship Specialty Start Date End Date SheebaDarío sanchezBAMBISADIA [address] [place] [address] PCP - General Nurse Final Inspector Motorcyles 04/15/18 Incinerator Plant Supervisor Relationship Specialty Start Date End Date Unallocated, Danay Biggs MD [address] [facility] [place] [address] PCP - General 04/16/23 Awilda Delatorre, DO [address] [facility] [address] [place] [address] PCP - Gholson Commercial 06/16/23 Darío Banuelos CNM [address] [place] [address] Obstetrics and Gynecology 02/10/23 Incinerator Plant Supervisor Relationship Specialty Start Date End Date Unallocated, Danay Biggs MD [address] [facility] [place] [address] PCP - General 04/16/23 Awilda Delatorre, DO [address] [facility] [address] [place] [address] PCP - Gholson Commercial 06/16/23 Darío Banuelos CNM [address] [place] [facility] [place] [address] Obstetrics and Gynecology 02/10/23 Incinerator Plant Supervisor Relationship Specialty Start Date End Date Unallocated, Danay Bgigs MD [address] [place] [address] PCP - General 04/16/23 Awilda Delaotrre DO [address] [place] [address] PCP - [place] Commercial 06/16/23 Darío Banuelos CNM [address] [facility] [place] [address] Obstetrics and Gynecology 02/10/23 Incinerator Plant Supervisor Relationship Specialty Start Date End Date Unallocated, Danay Biggs MD [address] [place] [address] PCP - General 04/16/23 Darío Banuelos CNM [address] [facility] [place] [address] Obstetrics and Gynecology 02/10/23 Incinerator Plant Supervisor Relationship Specialty Start Date End Date Unallocated, Danay Biggs MD [address] [place] [address] PCP - General 04/16/23 Darío Banuelos CNM [address] [facility] [place] [address] Obstetrics and Gynecology 02/10/23 Incinerator Plant Supervisor Relationship Specialty Start Date End Date Unallocated, MD Reynaldo [place] [place] [address] PCP - General 04/16/23 Darío Banuelos CNM [address] [facility] [place] [address] Obstetrics and Gynecology 02/10/23 Incinerator Plant Supervisor Relationship Specialty Start Date End Date Unallocated, Danay Biggs MD [address] [place] [address] PCP - General 04/16/23 Darío Banuelos CNM [address] [facility] [place] [address] Obstetrics and Gynecology 02/10/23 Incinerator Plant Supervisor Relationship Specialty Start Date End Date Unallocated, Danay Biggs MD [address] [place] [address] PCP - General 04/16/23 Darío Banuelos CNM [address] [facility] [place] [address] Obstetrics and Gynecology 02/10/23 Incinerator Plant Supervisor Relationship Specialty Start Date End Date Unallocated, Danay Biggs MD [address] [place] [address] PCP - General 04/16/23 Darío Banuelos CNM [address] [facility] [place] [address] Obstetrics and Gynecology 02/10/23 Incinerator Plant Supervisor Relationship Specialty Start Date End Date Unallocated, Danay Biggs MD [address] [place] [address] PCP - General 04/16/23 Darío Banuelos CNM [address] [facility] [place] [address] Obstetrics and Gynecology 02/10/23 Incinerator Plant Supervisor Relationship Specialty Start Date End Date Unallocated, Danay Biggs MD [address] [place] [address] PCP - General 04/16/23 Darío Banuelos CNM [address] [place] [address] Obstetrics and Gynecology 02/10/23 Incinerator Plant Supervisor Relationship Specialty Start Date End Date Unallocated, Danay Biggs MD [address] [place] [address] PCP - General 04/16/23 Awilda Delatorre, DO [address] [place] [address] PCP - [place] Commercial 06/16/23 Darío Banuelos CNM [address] [place] [address] Obstetrics and Gynecology 02/10/23 Incinerator Plant Supervisor Relationship Specialty Start Date End Date Unallocated, Danay Biggs MD [address] [facility] [address] PCP - General 04/16/23 Awilda Delatorre, [address] [place] [address] PCP - [place] Commercial 06/16/23 Darío Banuelos CNM [address] [place] [address] Obstetrics and Gynecology 02/10/23 FOR RECORDS PERTAINING [...] BE BASED ON THE PRIMARY CLINICAL RECORDS. [facility]. provides no warranty or guarantee of the accuracy or completeness of information in this document.
--- OUTSIDE RECORDS SUMMARY | 2025-01-26 07:01 | XMS_ITS | Encounter Summary ---
Author Organization [facility] Address [address] [place] [address] Care Team Providers Care Machine Buffer Name Role Phone Flaquita Banuelos CNM Unavailable [phone] Unallocated, Noms Provider Primary Care Provi mart Awilda Crenshaw DO Unavailable [phone] Encounter Details Date Type Department Care Team (Late st Contact Info) Description 11/03/2024 [facility] [address] [place] [address] Awilda Crenshaw, DO [address] [facility] [address] [place] [address] Social History Tobacco Use Types Packs/Day Years [...] any clubs o r organizations such as cheondoism groups, unions, fraternal or athletic groups, or [...] Recorded Patient Health Questionnaire-2 Score 0 10/09/2024 [facility] [place] of Occupat ional Health - Occupational Stress [...] OB [address] [place] [address] Flaquita Banuelos, CNM [address] [facility] [place] [address] 02/06/2025 4:30 PM EDT Routine [facility] OB [address] [facility] [address] Flaquita Banuelos, CNM [address] [facility] [place] [address] 02/12/2025 4:30 PM EDT Routine [facility] FNR OB [address] [facility] [address] Flaquita Banuelos, CNM [address] [facility] [place] [address] 04/17/2025 10:30 AM EDT Office Visit [facility] [address] [place] [address] Awilda Crenshaw DO [address] [place] [address] documented as of this encounter Visit Diagnoses Not on filedocumented in this encounter Care Teams Machine Buffer Relationship Specialty Start Date End Date Unallocated, Noms Provider, [facility] [place] [address] PCP - General 04/16/23 Awilda Crenshaw DO [address] [place] [address] PCP - [place] Commercial 06/16/23 Flaquita Banuelos CNM [address] [place] [address] Obstetrics and Gynecology 02/10/23 documented as of this encounter
--- OUTSIDE RECORDS SUMMARY | 2025-01-26 07:02 | XMS_ITS | Encounter Summary ---
Author Organization [facility] Address [address] [place] [address] Care Team Providers Care Marketing Operations Associate Name Role Phone Flaquita Banuelos CNM Unavailable [phone] Unallocated, Noms Provider Primary Care Provi mart [...] How often do you attend chur or voodoo services? More than 4 times per year [...] Recorded Patient Health Questionnaire-2 Score 0 01/18/2025 [facility] of Occupat ional [facility] - Occupational Stress Questionnaire Answer [...] Health Questionnaire-2 Score 0 01/18/2025 8:29 AM Ailin Holt LPN documented as of this encounter Plan of Treatment Upcoming Encounters Date Type Department Care Team (Late st Contact Info) Description 01/29/2025 4:30 PM EDT Routine [facility] OB [address] [place] [address] Flaquita Banuelos, CNM [address] [place] [address] 02/06/2025 4:30 PM EDT Routine [facility] OB [address] [place] [address] Flaquita Banuelos, CNM [address] [place] [address] 02/12/2025 4:30 PM EDT Routine [facility] OB [address] [place] [address] Flaquita Banuelos, CNM [address] [place] [address] 04/17/2025 10:30 AM EDT Office Visit [facility] [address] [place] [address] Awilda Crenshaw, DO [address] [place] [address] documented as of this encounter Visit Diagnoses Not on filedocumented in this encounter Care Teams Marketing Operations Associate Relationship Specialty Start Date End Date Unallocated, Noms Dian, [address] [place] [address] PCP - General 04/16/23 Flaquita Banuelos CNM [facility] [place] [address] Obstetrics and Gynecology 02/10/23 documented as of this encounter
--- OUTSIDE RECORDS SUMMARY | 2025-01-26 07:02 | XMS_ITS | Encounter Summary ---
Author Organization [facility] Address [address] [facility] [place] [address] Care Team Providers Care Patrol Lady Name Role Phone Flaquita Banuelos CNM Unavailable [phone] Unallocated, Noms Provider Primary Care Provi mart Encounter Details Date Type Department Care Team (Late st Contact Info) Description 11/30/2024 [facility] [address] [place] [address] Awilda Crenshaw, DO [address] [facility] [address] [place] [address] Social History Tobacco Use Types Packs/Day Years [...] How often do you attend chur or pentecostal services? More than 4 times per year [...] Recorded Patient Health Questionnaire-2 Score 0 10/09/2024 [facility] of Occupat ional Health - Occupational Stress [...] place to sleep or slept in a usp (including now)? No 04/09/2023 Housing Stability Vital [...] were you homeless or living in a usp (including now)? No 06/07/2024 Estimated Date of [...] PM EDT Routine [facility] FNR OB [address] [place] [address] Flaquita Banuelos, CNM [address] [place] [address] 02/06/2025 4:30 PM EDT Routine [facility]NR OB [address] [facility] [place] [address] Flaquita Banuelos, CNM [address] [place] [address] 02/12/2025 4:30 PM EDT Routine [facility]NR OB [address] [facility] [place] [address] Flaquita Banuelos, CNM [address] [place] [address] 04/17/2025 10:30 AM EDT Office Visit [facility] [address] [place] [address] Awilda Crenshaw, DO [address] [place], [place] [address] documented as of this encounter Visit Diagnoses Not on filedocumented in this encounter Care Teams Patrol Lady Relationship Specialty Start Date End Date Unallocated, Noms Provider, [address] [place] [address] PCP - General 04/16/23 Flaquita Banuelos CNM [facility] [place] [address] Obstetrics and Gynecology 02/10/23 documented as of this encounter
--- OUTSIDE RECORDS SUMMARY | 2025-01-26 07:02 | XMS_ITS | Encounter Summary ---
Author Organization [facility] Address [address] [place] [address] Care Team Providers Care Ekg Tech Name Role Phone Lin Banuelosamita Mccoy CNM Unavailable [phone] Unallocated, Noms Provider Primary Care Provi mart Encounter Details Date Type Department Care Team (Late st Contact Info) Description 01/12/2025 Telephone [facility] OB [address] [facility] [place] [address] Estelle Hughes LPN Social History Tobacco [...] How often do you attend chur or yazidism services? More than 4 times per year 06/07/2024 Do you belong to any clubs o r organizations such as christianity groups, unions, fraternal [...] Health Questionnaire-2 Score 0 12/07/2024 [facility] of Occupat ional Health - Occupational [...] Hughes LPN - 01/12/2025 1:36 PM EDT [facility] called and requested orders be sent for growth and Dr. Sam gave verbal orders for patientto have NST/BPP/Growth obtained and [facility] only received NST/BPP orders. Nursing will send order. --Estelle Betts LPN documented in this encounter Plan of Treatment Upcoming Encounters Date Type Department Care Team (Late st Contact Info) Description 01/29/2025 4:30 PM EDT Routine [facility] FNR OB [address] [place] [address] Flaquita Banuelos, CNM [address] [facility] [place] [address] 02/06/2025 4:30 PM EDT Routine [facility]NR OB [address] [place] [address] Flaquita Banuelos, CNM [address] [facility] [place] [address] 02/12/2025 4:30 PM EDT Routine [facility] OB [address] [place] [address] Flaquita Banuelos, CNM [address] [facility] [place] [address] 04/17/2025 10:30 AM EDT Office Visit [facility] [address] [place] [address] Awilda Crenshaw DO [address] [place] [address] Scheduled Orders Name Type Priority Associated Diagnoses Orde r Schedule US OB follow up transabdominal approach Imaging Routine Mixed hyperlipidemia Type 2 diabetes mellitus without complication, without long-term current use of insulin (HCC) with type 2 diabetes mellitus in third trimester (HHS-HCC) Expected: 01/12/2025, Expires: 05/15/2025 documented as of this encounter Visit Diagnoses Diagnosis Mixed hyperlipidemia Mixed hyperlipidemia Type 2 diabetes mellitus without complication, without long-term current use of insulin (HCC) with type 2 diabetes mellitus in third trimester (HHS-HCC) documented in this encounter Care Teams Ekg Tech Relationship Specialty Start Date End Date Unallocated, Noms Provider, [place] [address] PCP - General 04/16/23 Flaquita Banuelos CNM [address] [place] [address] Obstetrics and Gynecology 02/10/23 documented as of this encounter
--- OUTSIDE RECORDS SUMMARY | 2025-01-26 07:02 | XMS_ITS | Encounter Summary ---
Author Organization [facility] tem Address [id number] [address] [place] [address] Care Team Providers Care Weapons Officer Name Role Phone Flaquita Banuelos BAMBI-CNM Primary Care Provider [phone] Encounter Details Date Type Department Care Team (Late st Contact Info) Description 09/11/2024 Orders Only Maternal- Medicine at [facility] [address] [place] [address] Yudelka Randall, SABRINA with type 2 diabetes [...] BLOOD ORDERABLES Final Result Performing Organization Address [facility] Co de Phone Number MANUALLY TRANSCRIBED RESULTS * Protein creat ratio (08/30/2024) 08/30/2024 us Svetlana E Lavoy PA-C URINE ORDERABLES Final Resu lt Performing Organization Address [facility] Co de Phone Number SUNQUEST * Thyroid profile includes TSH FT4 (08/30/2024) 08/30/2024 us Svetlana E Lavoy PA-C LAB BLOOD ORDERABLES Final Result Performing Organization Address [facility] Phone Number MANUALLY TRANSCRIBED RESULTS documented in this encounter Visit Diagnoses Diagnosis with type 2 diabetes mellitus in second trimester documented in this encounter Additional Health Concerns Assessment Noted Time PHQ-9 Depression Total Score: 0 03/03/20 17 3:00 PM EDT documented as of this encounter Care Teams Weapons Officer Relationship Specialty Start Date End Date Flaquita Banuelos APRN-CNM [address] [place] [address] PCP - General Nurse Firer Automatic Stoker 04/15/18 documented as of this encounter
--- OUTSIDE RECORDS SUMMARY | 2025-01-26 07:02 | XMS_ITS | Encounter Summary ---
Author Organization [facility] Address [address] [place] [address] Care Team Providers Care Lift Electrician Name Role Phone Flaquita Banuelos CNM Unavailable [phone] Unallocated, Noms Provider Primary Care Provi mart Awilda Crenshaw DO Unavailable [phone] Encounter Details Date Type Department Care Team (Late st Contact Info) Description 08/31/2023 Abstract [facility] [address] [facility] 230 [place] [address] Awilda Crenshaw, [address] [facility] [address] [place] [address] Social History Tobacco Use Types Packs/Day Years [...] any clubs o r organizations such as zoroastrianism groups, unions, fraternal or athletic groups, or [...] Recorded Patient Health Questionnaire-2 Score 0 04/16/2023 [facility] of Occupat ional Health - [...] PM EDT Routine [facility] FNR OB [address] [place] [address] Flaquita Banuelos [facility] [address] [place] [address] 02/06/2025 4:30 PM EDT Routine [facility] FNR OB [address] [place] [address] Flaquita Banuelos CN [address] [place] [address] 02/12/2025 4:30 PM EDT Routine [facility] FNR OB [address] [place] [address] Flaquita Banuelos CNM [address] [place], [place] [address] 04/17/2025 10:30 AM EDT Office Visit [facility] [address] [place] [address] Awilda Crenshaw DO [address] [place] [address] documented as of this encounter Visit Diagnoses Not on filedocumented in this encounter Care Teams Lift Electrician Relationship Specialty Start Date End Date Unallocated, Noms Provider, [address] [place] [address] PCP - General 04/16/23 Awilda Crenshaw DO [address] [facility] [address] [place] [address] PCP - [place] Commercial 06/16/23 Flaquita Banuelos CNM [address] [place] [id number] Obstetrics and Gynecology 02/10/23 documented as of this encounter
--- OUTSIDE RECORDS SUMMARY | 2025-01-26 07:02 | XMS_ITS | Encounter Summary ---
Author Organization [facility] Address [address] [place] [address] Care Team Providers Care Learning And Development Assistant Name Role Phone Vin Flaquita Mccoy CNM Unavailable [phone] Unallocated, Noms Provider Primary Care Provi mart Encounter Details Date Type Department Care Team (Late st Contact Info) Description 01/19/2025 Clinisync Result Encounter [facility] External Department Unsolicited Nick Sam, DO [address] [place] [address] Social History Tobacco Use Types Packs/Day Years [...] any clubs o r organizations such as presybeterian groups, unions, fraternal or athletic groups, or [...] Recorded Patient Health Questionnaire-2 Score 0 01/18/2025 [facility] of Occupat ional Health [...] 4:30 PM EDT Routine [facility] FNR OB [address] [place] [address] Flaquita Banuelos, CNM [address] [place] [address] 02/06/2025 4:30 PM EDT Routine [facility] FNR OB [address] [place] [address] Flaquita Banuelos, CNM [address] [place] [address] 02/12/2025 4:30 PM EDT Routine [facility] FNR OB [address] [place] [address] Flaquita Banuelos, CN [address] [place] [address] 04/17/2025 10:30 AM EDT Office Visit [facility] [address] [place] [address] Awilda Crenshaw, DO [address] [place] [address] documented as of this encounter Procedures Procedure Name Priority Date/Time Associated Diagnosis Comments US OB BPP W NON-STRESS 01/19/2025 7:37 AM EDT documented in this encounter Results * US OB BPP W NON-STRESS (01/19/2025 7:37 AM EDT) Anatomical Region Laterality Modality Other 01/19/2025 7:37 AM EDT Narrative 01/19/2025 7:39 AM EDT The [address] [address] Ultrasound Report Signed Patient: REGINALD REYES MR#: [id number] : 1995 Acct:[id number] Age/Sex: 29 / F ADM Date: 01/19/25 Loc: [facility] 250-[address]: Nick Sam D.O. Ordering Physician: Nick Sam D.O. Date of Service: 01/19/25 Procedure(s): US OB BPP w non-stress Accession Number(s): [id number] cc: Nick Sam D.O.; Physician,Non-Staff Magaly The [place] [id number] Patient Name: REGINALD REYES MRN: [id number] date: 1995 Sex: F Assigned Patient Location: [facility] Current Patient Location: [facility] Accession/Order Number: [id number] Exam Date: 01/19/2025 07:35 Report Date: 01/19/2025 07:37 At the request of: NICK SAM DO [...] Roberson M.D. 01/19/2025 7:37 AM Dictation Location: [place] [address] Electronically authenticated by: [id number] Y Date: 01/19/2025 07:37 Dictated By: Zak Roberson M.D. Signed By: 01/19/25 0739 DD/ 0737 TD/TT: Practice Architect: Procedure Note Radiology, Radiologist, - 01/19/[address] [address] Ultrasound Report Signed Patient: REGINALD REYES MMR#: [id number] : 1995Acct:[id number] Age/Sex: 29 / FADM Date: 01/19/25 Loc: [facility] 250-[address]: Nick Sam D.O. Ordering Physician: Nick Sam D.O. Date of Service: 01/19/25 Procedure(s): US OB BPP w non-stress Accession Number(s): [id number] cc: Nick Sam D.O.; Physician,Non-Staff Mag[place] [address] Patient Name: REGINALD REYES MRN: [facility]:[id number] date: 1995 Sex: F Assigned Patient Location: [facility] Current Patient Location: [facility] Accession/Order Number: [id number] Exam Date: 01/19/2025 07:35 Report Date: 01/19/2025 07:37 At the request of: NICK SAM DO [...] Roberson M.D. 01/19/2025 7:37 AM Dictation Location: [place] [address] Electronically authenticated by: [id number] Y Date: 507:37 Dictated By: Zak Roberson M.D. Signed By:01/19/25 0739 DD/ 0737 TD/TT: Practice Architect: us Nick Sam DO [facility] Final Result documented in this encounter Visit Diagnoses Not on filedocumented in this encounter Care Teams Learning And Development Assistant Relationship Specialty Start Date End Date Unallocated, Noms Provider, [address] [place] [address] PCP - General 04/16/23 Flaquita Banuelos CNM [address] [place], [place] [phone] Obstetrics and Gynecology 02/10/23 documented as of this encounter
--- OUTSIDE RECORDS SUMMARY | 2025-01-26 07:02 | XMS_ITS | Encounter Summary ---
Author Organization [facility] Address [address] [place] [address] Care Team Providers Care Chemical Maker Name Role Phone Flaquita Banuelos CNM Unavailable Unallocated, Noms Provider Primary Care Provi mart Encounter Details Date Type Department Care Team (Late st Contact Info) Description 01/22/2025 Bamboo flowsheet [facility] OB [address] [place] [address] Flaquita Banuelos, CNM [address] [place], [place] [phone] Social History Tobacco Use Types Packs/Day Years [...] How often do you attend chur or worship services? More than 4 times per year [...] Recorded Patient Health Questionnaire-2 Score 0 01/18/2025 [facility] of Occupat ional Health - [...] any time in the past 12 m [facility], were you homeless or living in [...] PM EDT Routine [facility] FNR OB [address] [place] [address] Flaquita Banuelos, CNM [address] [facility] [place] [address] 02/06/2025 4:30 PM EDT Routine [facility] FNR OB [address] [facility] [address] Flaquita Banuelos, CNM [address] [facility] [place] [address] 02/12/2025 4:30 PM EDT Routine [facility]NR OB [address] [facility] [address] Flaquita Banuelos, CNM [address] [facility] [place] [address] 04/17/2025 10:30 AM EDT Office Visit [facility] [address] [place] [address] Awilda Crenshaw, DO [address] [place] [address] documented as of this encounter Visit Diagnoses Not on filedocumented in this encounter Care Teams Chemical Maker Relationship Specialty Start Date End Date Unallocated, Noms Provider, [address] [place] [address] PCP - General 04/16/23 Flaquita Banuelos CNM [address] [facility] [place] [address] Obstetrics and Gynecology 02/10/23 documented as of this encounter
--- OUTSIDE RECORDS SUMMARY | 2025-01-26 07:02 | XMS_ITS | Encounter Summary ---
Author Organization [facility] Address [address] [place] [address] Care Team Providers Care Grain Drier Operator Name Role Phone Vin Flaquita Mccoy CNM Unavailable [phone] Unallocated, Noms Provider Primary Care Provi mart Encounter Details Date Type Department Care Team (Late st Contact Info) Description 01/12/2025 Clinisync Result Encounter N[facility]S External Department Unsolicited Nick Sam, DO [address] [facility] [place] [address] Social History Tobacco Use Types Packs/Day Years [...] any time in the past 12 m [facility], were you homeless or living in [...] PM EDT Routine [facility] FNR OB [address] [place] [address] Flaquita Banuelos, CNM 14[address] [facility] [place] [address] 02/06/2025 4:30 PM EDT Routine [facility] FNR OB [address] [facility] [place] [address] Flaquita Banuelos, CNM [address] [facility] [place] [address] 02/12/2025 4:30 PM EDT Routine [facility] FNR OB [address] [facility] [place] [address] Flaquita Banuelos, CN [address] [facility] [place] [address] 04/17/2025 10:30 AM EDT Office Visit [facility] SWS FM [address] [place] [phone] Awilda Crenshaw, DO [address] [place] [address] documented as of this encounter Procedures Procedure Name Priority Date/Time Associated Diagnosis Comments US OB BPP W NON-STRESS 01/12/2025 12:00 PM EDT documented in this encounter Results * US OB BPP W NON-STRESS (01/12/2025 12:00 PM EDT) Anatomical Region Laterality Modality Other 01/12/2025 12:0 0 PM EDT Narrative 01/12/2025 12:03 PM EDT The [address] [address] Ultrasound Report Signed Patient: REGINALD REYES MR#: [id number] : 1995 Acct:[id number] Age/Sex: 29 / F ADM Date: 01/12/25 Loc: US Attending Dr: Nick Sam D.O. Ordering Physician: Nick Sam D.O. Date of Service: 01/12/25 Procedure(s): US OB BPP w non-stress Accession Number(s): [id number] cc: Nick Sam D.O.; Physician,Non-Staff [place] [id number] Patient Name: REGINALD REYES MRN: [facility]:[id number] date: 1995 Sex: F Assigned Patient Location: [facility] Current Patient Location: [facility] Accession/Order Number: [id number] Exam Date: 01/12/2025 11:54 Report Date: 01/12/2025 [...] Mcleod M.D. 01/12/2025 12:00 PM Dictation Location: [place] [address] Electronically authenticated by: [id number] Y Date: 01/12/2025 12:00 Dictated By: Elle Mcleod M.D. Signed By: 01/12/25 1203 DD/ 1200 TD/TT: Alligator Hunter: Procedure Note Radiology, Radiologist, MD - 01/12/2025 [place] [address] Ultrasound Report Signed Patient: REGINALD REYES MMR#: [id number] : 1995Acct:[id number] Age/Sex: 29 / FADM Date: 01/12/25 Loc: US Attending Dr: Nick Sam D.O. Ordering Physician: Nick Sam D.O. Date of Service: 01/12/25 Procedure(s): US OB BPP w non-stress Accession Number(s): [id number] cc: Nick Sam D.O.; Physician,Non-Staff Magaly The [place] [id number] Patient Name: REGINALD REYES MRN: [id number] date: 1995 Sex: F Assigned Patient Location: [facility] Current Patient Location: [facility] Accession/Order Number: [id number] Exam Date: 01/12/2025 11:54 Report Date: 01/12/2025 [...] Mcleod M.D. 01/12/2025 12:00 PM Dictation Location: [place] [address] Electronically authenticated by: [id number] Y Date: 2:00 Dictated By: Elle Mcleod M.D. Signed By:01/12/25 1203 DD/ 1200 TD/TT: Alligator Hunter: us Nick Flaco DO [facility] Final Result documented in this encounter Visit Diagnoses Not on filedocumented in this encounter Care Teams Grain Drier Operator Relationship Specialty Start Date End Date Unallocated, Noms Provider, [address] [place] [address] PCP - General 04/16/23 Flaquita Banuelos CNM [address] [place] [address] Obstetrics and Gynecology 02/10/23 documented as of this encounter
--- OUTSIDE RECORDS SUMMARY | 2025-01-26 07:02 | XMS_ITS | Encounter Summary ---
Author Organization [facility] Address [address] [place] [address] Care Team Providers Care Salvage Engineer Name Role Phone Flaquita Banuelos CNM Unavailable [phone] Unallocated, Noms Provider Primary Care Provi mart Encounter Details Date Type Department Care Team (Late st Contact Info) Description 12/07/2024 [facility] [address] [place] [address] Unallocated, Noms Provider, [address] [place], [place] [address] Social History Tobacco Use Types Packs/Day Years [...] How often do you attend chur or religion services? More than 4 times per year [...] time in the past 12 m [facility], were you homeless or living in a [...] PM EDT Routine [facility] FNR OB [address] [facility] [address] Flaquita Banuelos, CNM [address] [place] [address] 02/06/2025 4:30 PM EDT Routine [facility] FNR OB [address] [facility] [address] Flaquita Banuelos, CNM [address] [place] [address] 02/12/2025 4:30 PM EDT Routine [facility] FNR OB [address] [facility] [address] Flaquita Banuelos, CNM [address] [place] [address] 04/17/2025 10:30 AM EDT Office Visit [facility] S[facility] FM [address] [place] [address] Awilda Crenshaw, DO [address] [place] [address] documented as of this encounter Visit Diagnoses Not on filedocumented in this encounter Care Teams Salvage Engineer Relationship Specialty Start Date End Date Unallocated, Noms Provider, [address] [place] [address] PCP - General 04/16/23 Flaquita Banuelos CNM [address] [place] [address] Obstetrics and Gynecology 02/10/23 documented as of this encounter
--- OUTSIDE RECORDS SUMMARY | 2025-01-26 07:02 | XMS_ITS | Encounter Summary ---
Author Organization [facility] Address [address] [place] [address] Care Team Providers Care Medical Parasitologist Name Role Phone Flaquita Banuelos CNM Unavailable [phone] Unallocated, Noms Provider Primary Care Provi mart Encounter Details Date Type Department Care Team (Late st Contact Info) Description 01/04/2025 Results Follow-Up [facility] FNR OB [address] [place] [address] Flaquita Banuelos, CNM [address] [place], [place] [phone] Social History Tobacco Use Types Packs/Day Years [...] often do you attend chur ch or sikh services? More than 4 times per year [...] Recorded Patient Health Questionnaire-2 Score 0 12/07/2024 [facility]at [facility] - [...] any time in the past 12 m [facility], were you homeless or living [...] PM EDT Routine [facility] FNR OB [address] [place] [address] Flaquita Banuelos, CNM [address] [facility] [address] 02/06/2025 4:30 PM EDT Routine [facility] FNR OB [address] [place] [address] Flaquita Banuelos, CNM [address] [place] [address] 02/12/2025 4:30 PM EDT Routine [facility] FNR OB [address] [place] [address] Flaquita Banuelos, CNM [address] [facility] [place] [address] 04/17/2025 10:30 AM EDT Office Visit [facility] SWS FM [address] [place] [address] Awilda Crenshaw, DO [address] [place] [address] documented as of this encounter Visit Diagnoses Not on filedocumented in this encounter Care Teams Medical Parasitologist Relationship Specialty Start Date End Date Unallocated, Noms Provider, [address] [place] [address] PCP - General 04/16/23 Flaquita Banuelos CNM [address] [place] [address] Obstetrics and Gynecology 02/10/23 documented as of this encounter
--- OUTSIDE RECORDS SUMMARY | 2025-01-26 07:02 | XMS_ITS | Encounter Summary ---
Author Organization [facility] Address [address] [place] [address] Care Team Providers Care Director Market Intelligence Name Role Phone Vin Flaquita Mccoy CNM Unavailable [phone] Unallocated, Noms Provider Primary Care Provi mart Encounter Details Date Type Department Care Team (Late st Contact Info) Description 12/27/2024 Results Follow-Up [facility] FNR OB [address] [place] [address] Abby Saul MA Social History [...] PM EDT Routine [facility] FNR OB [address] [place] [address] Flaquita Banuelos, CNM [address] [place] [address] 02/06/2025 4:30 PM EDT Routine [facility] FNR OB [address] [place] [address] Flaquita Banuelos, CNM [address] [place] [address] 02/12/2025 4:30 PM EDT Routine [facility] FNR OB [address] [place] [address] Flaquita Banuelos, CNM [address] [place] [address] 04/17/2025 10:30 AM EDT Office Visit [facility] SWS FM [address] [place] [address] Awilda Crenshaw, DO [address] [place] [address] documented as of this encounter Visit Diagnoses Not on filedocumented in this encounter Care Teams Director Market Intelligence Relationship Specialty Start Date End Date Unallocated, Noms Provider, [address] [place] [address] PCP - General 04/16/23 Flaquita Banuelos CNM [address] [place] [id number] Obstetrics and Gynecology 02/10/23 documented as of this encounter
--- OUTSIDE RECORDS SUMMARY | 2025-01-26 07:02 | XMS_ITS | Encounter Summary ---
Author Organization [facility] Address [address] [place] [address] Care Team Providers Care Line Staker Name Role Phone Flaquita Banuelos CNM Unavailable [phone] Unallocated, Noms Provider Primary Care Provi mart Awilda Crenshaw DO Unavailable [phone] Encounter Details Date Type Department Care Team (Late st Contact Info) Description 10/06/2024 Abstract [facility] [address] [place] [address] Awilda Crenshaw, DO [address] [facility] [address] [place] [address] Social History Tobacco Use Types Packs/Day Years [...] How often do you attend chur or lutheran services? More than 4 times per year [...] Recorded Patient Health Questionnaire-2 Score 0 10/09/2024 [facility] [place] of Occupat ional Health - Occupational Stress [...] any time in the past 12 m [facility], were you homeless or [...] PM EDT Routine [facility] FNR OB [address] [place] [address] Flaquita Banuelos, CNM [address] [place] [address] 02/06/2025 4:30 PM EDT Routine [facility] FNR OB [address] [place] [address] Flaquita Banuelos, CNM [address] [place] [address] 02/12/2025 4:30 PM EDT Routine [facility] FNR OB [address] [place] [address] Flaquita Banuelos, CNM [address] [facility] [place] [address] 04/17/2025 10:30 AM EDT Office Visit [facility] SWS FM [address] [place] [address] Awilda Crenshaw, [address] [place] [address] documented as of this encounter Visit Diagnoses Not on filedocumented in this encounter Care Teams Line Staker Relationship Specialty Start Date End Date Unallocated, Noms Dian, [address] [place] [address] PCP - General 04/16/23 Awilda Crenshaw DO [address] [facility] [address] [place] [address] PCP - [place] [employer] 06/16/23 Flaquita Banuelos CNM [address] [place] [address] Obstetrics and Gynecology 02/10/23 documented as of this encounter
--- OUTSIDE RECORDS SUMMARY | 2025-01-26 07:02 | XMS_ITS | Encounter Summary ---
Author Organization [facility] Address [address] [place] [address] Care Team Providers Care Credit Card Specialist Name Role Phone Flaquita Banuelos CNM Unavailable [phone] Unallocated, Noms Provider Primary Care Provi mart Encounter Details Date Type Department Care Team (Late st Contact Info) Description 12/20/2024 Results Follow-Up [facility] FNR OB [address] [place] [address] Flaquita Banuelos, CNM [address] [place], [place] [address] Social History Tobacco Use Types Packs/Day Years [...] often do you attend chur ch or episcopalian services? More than 4 times [...] Recorded Patient Health Questionnaire-2 Score 0 12/07/2024 [facility] Occupat ional Health [...] PM EDT Routine [facility] FNR OB [address] [place] [address] Flaquita Banuelos, CNM [address] [facility] [address] 02/06/2025 4:30 PM EDT Routine [facility] FNR OB [address] [facility] [place] [address] Flaquita Banuelos, CNM [address] [facility] [address] 02/12/2025 4:30 PM EDT Routine [facility] FNR OB [address] [facility] [place] [address] Flaquita Banuelos, CNM [address] [facility] [address] 04/17/2025 10:30 AM EDT Office Visit [facility] SWS FM [address] [place] [address] Awilda Crenshaw, DO [address] [place] [address] documented as of this encounter Visit Diagnoses Not on filedocumented in this encounter Care Teams Credit Card Specialist Relationship Specialty Start Date End Date Unallocated, Noms Provider, [address] [place] [address] PCP - General 04/16/23 Flaquita Banuelos CNM [address] [facility] [address] Obstetrics and Gynecology 02/10/23 documented as of this encounter
--- OUTSIDE RECORDS SUMMARY | 2025-01-26 07:02 | XMS_ITS | Encounter Summary ---
Author Organization [facility] Address [id number] [address] [place] [address] Care Team Providers Care Pipe Line Inspector Name Role Phone Flaquita Banuelos BAMBI-CNM Primary Care Provider [phone] Encounter Details Date Type Department Care Team (Late st Contact Info) Description 09/18/2024 Orders Only [facility] [address] [place] [address] External, Scanning Provider Social History [...] HE[facility] - [facility] [address] [place] [address] documented in this encounter Visit Diagnoses Not on filedocumented in this encounter Additional Health Concerns Assessment Noted Time PHQ-9 Depression Total Score: 0 03/03/20 17 3:00 PM EDT documented as of this encounter Care Teams Pipe Line Inspector Relationship Specialty Start Date End Date Flaquita Banuelos APRN-CNM [address] [place] [address] PCP - General Nurse Nurse Licensed Practical 04/15/18 documented as of this encounter
--- OUTSIDE RECORDS SUMMARY | 2025-01-26 07:02 | XMS_ITS | Clinical Summary ---
Author Organization [facility] Address [id number] [address] [place] [address] Care Team Providers Care Roller Coaster Engineer Name Role Phone SheebaWanda sanchezDaríolibby LACY-CNM Primary Care Provider [phone] Allergies No known active allergies Medications metFORMIN [...] [address] [place] [address] Robby Quezada MD Goyal, Vishal, MD Long Q-T syndrome (Primary Dx); Hx of prolonged Q-T interval on ECG 11/07/2024 Telephone [facility] [address] [place] [address] Abby Andino CMA 11/07/2024 Travel 11/06/2024 Travel 10/31/2024 8:00 AM EDT - 10/31/2024 11:59 PM EDT Hospital Encounter [facility] - Ultrasound [address] [place] [address] Encounter for other screening follow-up; Pre-existing type [...] ECG ORDERABLES Final Result Performing Organization Address City/State/[facility] Co de Phone Number MANUALLY TRANSCRIBED RESULTS * US MFM ECHO FOLLOW-UP (10/31/2024 9:07 AM EDT) Anatomical Region Laterality Modality OB-CATERING ATTENDANT Ultrasound 10/31/2024 8:09 AM EDT Narrative 10/31/2024 3:59 PM EDT NAME: ERIC MONTELONGO : 1995 SEX: F Accession Number: [id number] ORDERING PHYSICIAN: JAXON TURCIOS REFERRING PHYSICIAN: DARÍO BANUELOS Coding ----- --------- Procedures 56112: Follow-up Ultrasound, per fetus 10022: Echocardiography, , cardiovascular system, real time with [...] 1 lb 10 oz EFW by Hadlock ([id number]-IL-EL-FL) Head / Face / Neck Biometry: Cephalic index 0.78 45% Nicolaides Refresh Technician 6.6 mm CM 3.9 mm 4% Nicolaides [...] view. RVOT view. LVOT view. 3-vessel view. 7-wjxlpi-wgpyrdi view. Great vessels. Right lung. Left lung. [...] normal RVOT view normal 3-vessel view normal 1-cjijfv-bdnnakw view normal Aortic arch view documented previously [...] MONTELONGO : 1995 SEX: F Accession Number: [id number] ORDERING PHYSICIAN: JAXON TURCIOS REFERRING PHYSICIAN: DARÍO BANUELOS Coding ----- --------- Procedures 08231: Follow-up Ultrasound, per fetus [address]: Echocardiography, , cardiovascular system, real timewith image [...] 1 lb 10 oz EFW by Hadlock (WVB-LE-LV-FL) Head / Face / Neck Biometry: Cephalic index 0.78 45% Nicolaides Refresh Technician 6.6 mm CM 3.9 mm 4% Nicolaides Extremities / Bony Struc Biometry: FL / BPD 0.73 FL / HC 0.20 FL / AC 0.21 Tibia 38.6 mm 24w 5d 65% Rachelle Anatomy ----- --------- The following structures appear normal: Head/Neck: Cranium. Lateral ventricles. Cavum septi pellucidi. Cerebellum.Cisterna magna. Parenchyma. Face: Lips. Profile. Nose. Nasal bone. Heart/Thorax: 4-chamber view. RVOT view. LVOT view. 3-vessel view.2-gwhhgw-glcwbdb view. Great vessels. Right lung. Left lung. [...] normal RVOT view normal 3-vessel view normal 5-ntszhe-tegmlwa view normal Aortic arch view documented previously [...] thepatient as necessary. us Jaxon Turcios MD [facility] ORDERABLES Final Re sult from Last 3 Months Insurance [employer] Care Teams Roller Coaster Engineer Relationship Specialty Start Date End Date Darío Banuelos APRN-CNM [address] [place] [address] PCP - General Nurse Pump And Blower Operator 04/15/18
--- OUTSIDE RECORDS SUMMARY | 2025-01-26 07:02 | XMS_ITS | Encounter Summary ---
Author Organization [facility] Address [address] [place] [address] Care Team Providers Care Telephone Quotation Clerk Name Role Phone Flaquita Banuelos CNM Unavailable [phone] Unallocated, Noms Provider Primary Care Provi mart Encounter Details Date Type Department Care Team (Late st Contact Info) Description 01/15/2025 Bamboo flowsheet [facility] FNR OB [address] [place] [address] Flaquita Banuelos, CNM [address] [place], [place] [address] Social History Tobacco Use Types Packs/Day Years [...] Patient Health Questionnaire-2 Score 0 12/07/2024 [facility] of Occupat ional Health - [...] the past [address] [facility], were you homeless or living [...] PM EDT Routine [facility] FNR OB [address] [place] [address] Flaquita Banuelos, CNM [address] [place] [address] 02/06/2025 4:30 PM EDT Routine [facility] FNR OB [address] [facility] [place] [address] Flaquita Banuelos, CNM [address] [place] [address] 02/12/2025 4:30 PM EDT Routine [facility] FNR OB [address] [facility] [place] [address] Flaquita Banuelos, CNM [address] [place] [address] 04/17/2025 10:30 AM EDT Office Visit [facility] SWS FM [address] [place] [address] Awilda Crenshaw, DO [address] [place] [address] documented as of this encounter Visit Diagnoses Not on filedocumented in this encounter Care Teams Telephone Quotation Clerk Relationship Specialty Start Date End Date Unallocated, Noms Provider, [address] [place] [address] PCP - General 04/16/23 Flaquita Banuelos CNM [address] [place] [address] Obstetrics and Gynecology 02/10/23 documented as of this encounter
--- OUTSIDE RECORDS SUMMARY | 2025-01-26 07:02 | XMS_ITS | Clinical Summary ---
Author Organization [facility] Address [address] [place] [address] Care Team Providers Care Biology Lecturer Name Role Phone Flaquita Banuelos CNM Unavailable [phone] Unallocated, [facility] Provider MD Primary Care Provi mart Allergies No known active allergies Medications metFORMIN (Glucophage) 1000 MG tabletIndicatio ns:Type 2 diabetes mellitus without complication, without long-term current use of insulin (HCC) 1/2 tablet in the am and 1 tablet in the evening 180 tablet 3 4 Active Continuous Glucose Sensor (Dexcom G7 Sensor) mis USE DIRECTED to test BLOOD SUGAR change [...] without long-term current use of insulin (HCC) USE DIRECTED FIVE TIMES DAILY 400 each 3 5 Active insulin lispro (HumaLOG KWIKPEN) 100 UNIT/ML injectionIndica tions: with type 2 diabetes mellitus in second trimester ([facility]) 1-2 units breakfast, 5-12 units lunch/dinner (max daily 50 units) 15 mL 3 5 Active ferrous sulfate (Fe Tabs) 325 (65 Fe) MG EC tabletIndicatio ns:Anemia during in third trimester ([facility]) Take 1 tablet (325 mg) by mouth in the morning and 1 tablet (325 mg) before bedtime. Take before meals. Do not crush, chew, or split. 60 tablet 11 5 12/29/19 26 Active docusate sodium (Colace) 100 MG capsuleIndicati ons:Anemia during in third trimester ([facility]) Take 1 capsule (100 mg) by mouth in the morning and 1 capsule (100 mg) before bedtime. 60 capsule 3 5 04/27/20 25 Active insulin NPH, Isophane, (HumuLIN N KWIKPEN) 100 UNIT/ML injection 8 units am and 14 units pm 15 mL 3 5 Active insulin NPH, Isophane, (HumuLIN N KWIKPEN) 100 UNIT/ML injection 10 units am and 17 units pm 15 mL 3 5 01/19/20 25 Discontinu ed(Dose adjustment ) ferrous sulfate (Fe Tabs) 325 (65 Fe) MG EC tabletIndicatio ns:Anemia during in third trimester ([facility]) Take 1 tablet (325 mg) by mouth in the morning and 1 tablet (325 mg) before bedtime. Take before meals. Do not crush, chew, or split. 60 tablet 5 12/29/19 25 Discontinu ed(Reorder ) docusate sodium (Colace) 100 MG capsuleIndicati ons:Anemia during in third trimester ([facility]) Take 1 capsule (100 mg) by mouth in the morning and 1 capsule (100 mg) before bedtime. 60 capsule 3 5 12/29/19 25 Discontinu ed(Reorder ) Active Problems Problem Noted Date Diagnosed Date with type 2 diabet es mellitus in third trimester ([facility]) 09/01/2024 Assessment & Plan (01/18/2025 10:17 AM [...] Encounters Date Type Department Care Team Description 01/22/2025 4:30 PM EDT Routine [facility] OB [address] [place] [phone] Flaquita Banuelos CNM screening for streptococcus B ([facility]) (Primary Dx); with type 2 diabetes mellitus in third trimester ([facility]); Type 2 diabetes mellitus treated with insulin (HCC) 01/22/2025 Bamboo flowsheet [facility] OB [address] [place] [phone] Flaquita Banuelos, CATHIEM 01/19/2025 Clinisync Result Encounter NOMS External Department Unsolicited Nick Sam, DO 01/18/2025 8:30 AM EDT Office Visit [facility] [address] [place] [phone] Awilda Crenshaw, with type 2 diabetes mellitus in third trimester ([facility]) 01/18/2025 Travel 01/15/2025 4:30 [place] [address] [place] [phone] Flaquita Banuelos, CNM Type 2 diabetes mellitus without complication, without long-term current use of insulin (HCC) (Primary Dx); with type 2 diabetes mellitus in third trimester ([facility]) 01/15/2025 [place] [address] [place] [phone] Flaquita Banuelos, SADIA 01/12/2025 Telephone [facility] OB [address] [facility] [place] [phone] Estelle Hughes LPN 01/12/2025 Clinisync Result Encounter NOMS External Department Unsolicited Nick Sam, DO 01/12/2025 Clinisync Result Encounter NOMS External Department Unsolicited Nick Sam, DO 01/09/2025 4:00 PM [place] [address] [place] [phone] Flaquita Banuelos, CATHIEM Type 2 diabetes mellitus treated with insulin (HCC) (Primary Dx); Encounter for care of first , third trimester ([facility]) 01/09/2025 Bamboo flowsheet [facility] OB [address] [place] [phone] Lin Banuelose L, CNM 01/05/2025 Clinisync Result Encounter NOMS External Department Unsolicited Nick Sam, DO 01/05/2025 Orders Only [facility] OB [address] [facility] [place] [address] Wanda Banueloserie L, CNM with type 2 diabetes mellitus in third trimester ([facility]) 01/04/2025 Results Follow-Up [facility] OB [address] [facility] [place] [address] Flaquita Banuelos L, CNM 01/01/2025 4:30 PM EDT Routine [facility] OB [address] [facility] [place] [address] Lin Banuelose L, CNM Screening for iron deficiency anemia (Primary Dx); Dysuria 01/01/2025 Bamboo flowsheet [facility] [address] [facility] [place] [address] Flaquita Banuelos L, CNM 01/01/2025 Travel 12/29/2024 Clinisync Result Encounter NOMS External Department Unsolicited Nick Sam, DO 12/28/2024 Refill [facility] OB [address] [facility] [place] [address] Abby Saul MA Anemia during in third trimester ([facility]) 12/27/2024 Results Follow-Up [facility] OB [address] [facility] [place] [address] Abby Saul MA 12/27/2024 Refill [facility] OB [address] [facility] [place] [address] Abby Saul MA Anemia during in third trimester ([facility]) 12/26/2024 4:00 PM EDT Routine [facility] OB [address] [facility] [place] [address] Flaquita Banuelos L, CNM with type 2 diabetes mellitus in third trimester ([facility]) (Primary Dx); Screening for iron deficiency anemia; Type 2 diabetes mellitus treated with insulin ([facility]) 12/26/2024 Bamboo flowsheet [facility] OB [address] [facility] [place] [address] Flaquita Banuelos, CNM 12/25/2024 10:20 AM EDT Consult [facility] OB [address] [facility] [phone] Nick Sam, with type 2 diabetes mellitus in third trimester ([facility]) 12/25/2024 Travel 12/25/2024 Bamboo flowsheet [facility] [address] [facility] [phone] Nick Sam, 12/20/2024 Results Follow-Up [facility] OB [address] [facility] [place] [address] Flaquita Banuelos, CATHIEM 12/20/2024 Orders Only [facility] OB [address] [facility] [place] [address] Flaquita Banuelos, CNM with type 2 diabetes mellitus in third trimester ([facility]) 12/11/2024 4:30 PM EDT Ancillary Procedure [facility] ULTRASOUND [address] [facility] [facility] [address] [place] [address] related condition in third trimester ([facility]) 12/11/2024 4:00 PM EDT Routine [facility] OB [address] [facility] [place] [address] Flaquita Banuelos, CNM with type 2 diabetes mellitus in third trimester ([facility]) 12/11/2024 Bamboo flowsheet [facility] OB [address] [facility] [place] [address] Flaquita Banuelos, CNM 12/11/2024 Travel 12/07/2024 8:15 AM EDT Office Visit [facility] [address] [place] [address] Awilda Crenshaw, with type 2 diabetes mellitus in third trimester ([facility]) (Primary Dx); with type 2 diabetes mellitus in second trimester ([facility]) 12/07/2024 Abstract [facility] [address] [place] [address] Unallocated, Danay Biggs MD 12/07/2024 Travel 12/04/2024 Travel 11/30/2024 Abstract [facility] [address] [place] [address] Awilda Crenshaw DO 11/30/2024 Travel 11/29/2024 Telephone [facility] [address] [place] [address] Bonny Garcia LPN BG readings 11/15/2024 4:30 PM EDT Routine [facility] OB [address] [place] [phone] Flaquita Banuelos CNM Encounter for care of first , second trimester ([facility]) (Primary Dx); related condition in third trimester ([facility]); Gestational diabetes mellitus (GDM) requiring insulin ([facility]) 11/15/2024 Bamboo flowsheet [facility] OB [address] [place] [address] Flaquita Banuelos CNM 11/14/2024 Travel 11/10/2024 [facility] [address] [place] [address] Awilda Crenshaw DO 11/03/2024 Abstract [facility] [address] [place] [address] Awilda Crenshaw DO from Last 3 Months Immunizations Immunization [...] often do you attend chur ch or hinduism services? More than 4 times [...] Patient Health Questionnaire-2 Score 0 01/18/2025 [facility] [...] any time in the past 12 m [facility], were you homeless or living in [...] Pressure 120/70 01/22/2025 4:32 PM EDT Pulse 88 01/18/2025 8:28 AM EDT Temperature 36.7 C (98 F) 01/18/2025 8:28 AM EDT Respiratory Rate - - Oxygen Saturation 98% 01/18/2025 8:28 AM EDT Inhaled Oxygen Concentration - - Weight 109 kg (240 lb) 01/22/2025 4:32 PM EDT Height 177.8 cm (5' 10 ) 01/18/2025 8:28 AM EDT Body Mass Index 34.44 01/18/2025 8:28 AM EDT Plan of Treatment Upcoming Encounters Date Type Department Care Team (Late st Contact Info) Description 01/29/2025 4:30 PM EDT Routine [facility] OB [address] [facility] [place] [address] Flaquita Banuelos, CNM [address] [place] [address] 02/06/2025 4:30 PM EDT Routine [facility] OB [address] [facility] [place] [address] Flaquita Banuelos, CNM [address] [place] [address] 02/12/2025 4:30 PM EDT Routine [facility] OB [address] [facility] [place] [address] Flaquita Banuelos, CN [address] [place] [address] 04/17/2025 10:30 AM EDT Office Visit [facility] [address] [place] [phone] Awilda Crenshaw, [address] [place] [address] Health Maintenance Due Date Last Done Comments Diabetes: Retinopathy Screening 2005 Influenza Vaccine (Season Ended) 2025 Diabetes: Hemoglobin A1C 04/20/2025 025, 10/09/2024, 07/10/2024, Additional history exists Diabetes: Urine Protein Screening 08/30/2025 025 Procedures Procedure Name Priority Date/Time Associated Diagnosis Comments STREPTOCCOUS, GROUP B CULTURE Routine 01/22/2025 5:00 PM EDT screening for streptococcus B ([facility]) US OB BPP W NON-STRESS 01/19/2025 7:37 AM EDT POCT GLYCOSYLATED HEMOGLOBIN (HGB A1C) Routine 01/18/2025 8:38 AM EDT with type 2 diabetes mellitus in third trimester ([facility]) US OB BPP W NON-STRESS 01/12/2025 12:00 PM EDT US OB GROWTH 01/12/2025 12:00 PM EDT US OB BPP W NON-STRESS 01/05/2025 3:27 PM EDT CULTURE, URINE, ROUTINE Routine 01/01/2025 5:00 PM EDT Dysuria US OB BPP W NON-STRESS 12/29/2024 9:36 AM EDT CBC Routine 12/26/2024 4:19 PM EDT Screening for iron deficiency anemia POCT URINALYSIS DIPSTICK Routine 12/25/2024 10:52 AM EDT with type 2 diabetes mellitus in third trimester ([facility]) US OB FOLLOW UP TRANSABDOMINAL APPROACH Routine 12/11/2024 4:54 PM EDT related condition in third trimester ([facility]) from Last 3 Months Results * US OB BPP W NON-STRESS (01/19/2025 7:37 AM EDT) Only the most recent of4 resultswithin the time period is included. Anatomical Region Laterality Modality Other 01/19/2025 7:37 AM EDT Narrative 01/19/2025 7:39 [place] [address] Ultrasound Report Signed Patient: REGINALD REYES MR#: [id number] : 1995 Acct:[id number] Age/Sex: 29 / F ADM Date: 01/19/25 Loc: [facility] 250-[address]: Nick Sam D.O. Ordering Physician: Nick Sam D.O. Date of Service: 01/19/25 Procedure(s): US OB BPP w non-stress Accession Number(s): [id number] cc: Nick Sam D.O.; Physician,Non-Staff Magaly The [address] [address] Patient Name: REGINALD REYES MRN: [id number] date: 1995 Sex: F Assigned Patient Location: [facility] Current Patient Location: [facility] Accession/Order Number: [id number] Exam Date: 01/19/2025 07:35 Report Date: 01/19/2025 [...] Roberson M.D. 01/19/2025 7:37 AM Dictation Location: [place] [address] Electronically authenticated by: [id number] Y Date: 01/19/2025 07:37 Dictated By: Zak Roberson M.D. Signed By: 01/19/25 0739 DD/ 0737 TD/TT: Lump Roller: Procedure Note Radiology, Radiologist, MD - 01/19/[address] [address] Ultrasound Report Signed Patient: REGINALD REYES MMR#: [id number] : 1995Acct:[id number] Age/Sex: 29 / FADM Date: 01/19/25 Loc: [facility] 250-[address]: Nick Sam D.O. Ordering Physician: Nick Sam D.O. Date of Service: 01/19/25 Procedure(s): US OB BPP w non-stress Accession Number(s): [id number] cc: Nick Sam D.O.; Physician,Non-Staff Magaly [place] [address] Patient Name: REGINALD REYES MRN: [id number] date: 1995 Sex: F Assigned Patient Location: [facility] Current Patient Location: [facility] Accession/Order Number: [id number] Exam Date: 01/19/2025 07:35 Report Date: 01/19/2025 [...] Roberson M.D. 01/19/2025 7:37 AM Dictation Location: [place] [address] Electronically authenticated by: [id number] Y Date: 507:37 Dictated By: Zak Roberson M.D. Signed By:01/19/25 0739 DD/ 0737 TD/TT: Lump Roller: Nick Sam DO [facility] Final Result * POCT glycosylated hemoglobin (Hb A1C) docked device (01/18/2025 8:38 AM EDT) Hemoglobin A1C 6.1 Blood Venous blood specimen / Unknown 01/18/2025 8:38 AM EDT Awilda Crenshaw DO POINT OF CARE TEST ENTER/E DIT ORDERABLES Final Result * US OB GROWTH (01/12/2025 12:00 PM EDT) Anatomical Region Laterality Modality Other 01/12/2025 12:0 0 PM EDT Narrative 01/12/2025 12:03 [place] [address] Ultrasound Report Signed Patient: REGINALD REYES MR#: [id number] : 1995 Acct:[id number] Age/Sex: 29 / F ADM Date: 01/12/25 Loc: US Attending Dr: Nick Sam D.O. Ordering Physician: Nick Sam D.O. Date of Service: 01/12/25 Procedure(s): US OB growth Accession Number(s): [id number] cc: Nick Sam D.O.; Physician,Non-Staff Magaly [place] [id number] Patient Name: REGINALD REYES MRN: [id number] date: 1995 Sex: F Assigned [facility] [place] [facility] [place] Patient Location[place] [facility] Accession/Order Number: [id number] Exam Date: 01/12/2025 11:54 Report Date: 01/12/2025 [...] Mcleod M.D. 01/12/2025 12:00 PM Dictation Location: [place] [address] Electronically authenticated by: [id number] Y Date: 01/12/2025 12:00 Dictated By: Elle Mcleod M.D. Signed By: 01/12/25 1203 DD/ 1200 TD/TT: Lump Roller: Procedure Note Radiology, Radiologist, MD - 01/12/2025 [place] [address] Ultrasound Report Signed Patient: REGINALD REYES MMR#: [id number] : 1995Acct:[id number] Age/Sex: Date: 01/12/25 Loc: US Attending Dr: Nick Sam D.O. Ordering Physician: Nick Sam D.O. Date of Service: 01/12/25 Procedure(s): US OB growth Accession Number(s): [id number] cc: Nick Sam D.O.; Physician,Non-Staff M.D. The [place] [id number] Patient Name: REGINALD REYES MRN: [employer] [employer] [facility]:[id number] date: 1995 Sex: F Assigned Patient [place] [facility] Current Patient [place] [facility] Accession/Order Number: [id number] Exam Date: 01/12/2025 11:54 Report Date: 01/12/2025 [...] Mcleod M.D. 01/12/2025 12:00 PM Dictation Location: [place] [address] Electronically authenticated by: [id number] Y Date: 2:00 Dictated By: Elle Mcleod M.D. Signed By:01/12/25 1203 DD/ 1200 TD/TT: Lump Roller: us Nick Arringtono DO [facility] Final Result * Urine culture (01/01/2025 5:00 PM EDT) Pathologist [facility] MICRO NUMBER [id number] QUEST SPECIMEN QUALITY Adequate QUEST SOURCE: (QUEST) [...] Performing Organization Information Site ID: QPT Name: [employer] [facility] Address: [address] [place] [address], [address] [place] [phone] Director: Devendra Aguilar MD Flaquita Banuelos CNM [...] Performing Organization Information Site ID: QPT Name: [facility] Address: [address] , [address] [place] [phone] Director: Devendra Aguilar MD Flaquita Banuelos CNM [...] days. Interpreted by: Electronically signed by YULI SOFIA II, MD, PHD at 12-Dec-2024 07:13:14 PM [facility] Procedure Note Yuli Sofia MD - 12/12/2024 EXAM: US OB FOLLOW [...] 4days. Interpreted by: Electronically signed by YULI SOFIA II, MD, PHD [id number] 07:13:14 PM [facility] us Flaquita Banuelos CNM IMG OB US PROCEDURES Final R esult from Last 3 Months Insurance BS Care Teams Biology Lecturer Relationship Specialty Start Date End Date Unallocated, Noms Provider, [address] [place] [address] PCP - General 04/16/23 Flaquita Banuelos CNM [address] [place] [address] Obstetrics and Gynecology 02/10/23
--- OUTSIDE RECORDS SUMMARY | 2025-01-26 07:02 | XMS_ITS | Encounter Summary ---
Author Organization [facility] Address [address] [place] [address] Care Team Providers Care Frog Shaker Name Role Phone Flaquita Banuelos CNM Unavailable [phone] Unallocated, [facility] Provider Primary Care Provi mart Awilda Crenshaw DO Unavailable [phone] Encounter Details Date Type Department Care Team (Late st Contact Info) Description 04/16/2023 Abstract [facility] [address] [facility] [address] [place] [address] Awilda Crenshaw, [address] [facility] [address] [place] [address] Social History Tobacco Use Types Packs/Day Years [...] Recorded Patient Health Questionnaire-2 Score 0 04/16/2023 [facility] - [...] in a longterm (including now)? No 04/09/2023 Comments No Sex [...] FNR OB [address] [place] [address] Flaquita Banuelos, CNM [address] [facility] [place] [address] 02/06/2025 4:30 PM EDT Routine [facility]NR OB [address] [place] [address] Flaquita Banuelos, CNM [address] [facility] [place] [address] 02/12/2025 4:30 PM EDT Routine [facility] OB [address] [place] [address] Flaquita Banuelos, CNM [address] [facility] [place] [address] 04/17/2025 10:30 AM EDT Office Visit [facility] [address] [place] [address] Awilda Crenshaw DO [address] [place] [address] documented as of this encounter Visit Diagnoses Not on filedocumented in this encounter Care Teams Frog Shaker Relationship Specialty Start Date End Date Unallocated, Noms Dian, [address] [place] [address] PCP - General 04/16/23 wAilda Crenshaw DO [address] [place] [address] PCP - Mehan [employer] 06/16/23 Flaquita Banuelos CNM [address] [place] [address], [place] [address] Obstetrics and Gynecology 02/10/23 documented as of this encounter
--- OUTSIDE RECORDS SUMMARY | 2025-01-26 07:02 | XMS_ITS | Encounter Summary ---
Author Organization [facility] Address [address] [place] [address] Care Team Providers Care Dinking Machine Operator Name Role Phone Vin Flaquita Mccoy CNM Unavailable Unallocated, [facility] Provider Primary Care Provi mart Encounter Details Date Type Department Care Team (Late st Contact Info) Description 01/12/2025 Clinisync Result Encounter NOMS External Department Unsolicited Nick Sam, DO [address] [facility] [place] [address] Social History Tobacco Use Types Packs/Day Years [...] 4:30 PM EDT Routine [facility] FNR OB [address] [place] [address] Flaquita Banuelos, CNM [address] [place] [address] 02/06/2025 4:30 PM EDT Routine [facility] FNR OB [address] [facility] [address] Flaquita Banuelos, CNM [address] [place] [address] 02/12/2025 4:30 PM EDT Routine [facility] FNR OB [address] [facility] [address] Flaquita Banuelos, CNM [address] [place] [address] 04/17/2025 10:30 AM EDT Office Visit [facility] [address] [place] [phone] Awilda Crenshaw, DO [address] [place] [address] documented as of this encounter Procedures Procedure Name Priority Date/Time Associated Diagnosis Comments US OB GROWTH 01/12/2025 12:00 PM EDT documented in this encounter Results * US OB GROWTH (01/12/2025 12:00 PM EDT) Anatomical Region Laterality Modality Other 01/12/2025 12:0 0 PM EDT Narrative 01/12/2025 12:03 PM EDT The [address] [address] Ultrasound Report Signed Patient: REGINALD REYES MR#: [id number] : 1995 Acct:[id number] Age/Sex: 29 / F ADM Date: 01/12/25 Loc: US Attending Dr: Nick Sam D.O. Ordering Physician: Nick Sam D.O. Date of Service: 01/12/25 Procedure(s): US OB growth Accession Number(s): [id number] cc: Nick Sam D.O.; Physician,Non-Staff Magaly The [place] [id number] Patient Name: REGINALD REYES MRN: [id number] date: 1995 Sex: F Assigned Patient Location: [facility] Current Patient Location: [facility] Accession/Order Number: [id number] Exam Date: 01/12/2025 11:54 Report Date: 01/12/2025 [...] Mcleod M.D. 01/12/2025 12:00 PM Dictation Location: [place] [address] Electronically authenticated by: [id number] Y Date: 01/12/2025 12:00 Dictated By: Elle Mcleod M.D. Signed By: 01/12/25 1203 DD/ 1200 TD/TT: Baby Nurse: Procedure Note Radiology, Radiologist, MD - 01/12/2025 [place] [address] Ultrasound Report Signed Patient: REGINALD REYES MMR#: [id number] : 1995Acct:[id number] Age/Sex: 29 / FADM Date: 01/12/25 Loc: US Attending Dr: Nick Sam D.O. Ordering Physician: Nick Sam D.O. Date of Service: 01/12/25 Procedure(s): US OB growth Accession Number(s): [id number] cc: Nick Sam D.O.; Physician,Non-Staff Magaly The [place] [address] Patient Name: REGINALD REYES MRN: [facility]:[id number] date: 1995 Sex: F Assigned Patient Location: [facility] Current Patient Location: [facility] Accession/Order Number: [id number] Exam Date: 01/12/2025 11:54 Report Date: 01/12/2025 [...] Mcleod M.D. 01/12/2025 12:00 PM Dictation Location: [place] [address] Electronically authenticated by: [id number] Y Date: 2:00 Dictated By: Elle Mcleod M.D. Signed By:01/12/25 1203 DD/ 1200 TD/TT: Baby Nurse: us Nick Flaco DO [facility] Final Result documented in this encounter Visit Diagnoses Not on filedocumented in this encounter Care Teams Dinking Machine Operator Relationship Specialty Start Date End Date Unallocated, Noms Provider, [address] [place] [address] PCP - General 04/16/23 Flaquita Banuelos CNM [address] [place] [address] Obstetrics and Gynecology 02/10/23 documented as of this encounter
--- NOTE | 2025-01-26 07:21 | US_ITS ---
[facility] [place] [address] Patient Name: REGINALD SMALL MRN: [id number] date: 1995 Sex: F Assigned Patient Location: [facility] Current Patient Location: Accession/Order Number: [id number] Exam Date: 01/26/2025 08:28 Report Date: 01/26/2025 08:30 At the request of: NICK BOWEN DO Procedure: US OB BPP w non-stress BIOPHYSICAL PROFILE: CLINICAL INFORMATION: WITH TYPE 2 DIABETES MELLITUS O24.113 COMPARISON: 01/19/2025 There is a single live intrauterine gestation in cephalic presentation. The reported gestational age is 36 weeks 4 days. The heart rate measures 134 beats per minute. FINDINGS: TONE: 1 or more episodes of activity extension and flexion of extremity or opening and closing of the hand [Y] 2/2 GROSS BODY MOVEMENTS: 3 or more discrete body or limb movements [Y] 2/2 BREATHING MOVEMENTS: 1 or more episodes of breathing lasting at least 30 seconds [Y] 2/2 DL: A single deepest vertical pocket of amniotic fluid greater than 2 cm [Y] 2/2 DL: 14.0 cm. This is normal. Total score: 8/8 US/US OB BPP w non-stress IMPRESSION: NORMAL BIOPHYSICAL PROFILE . Impression dictated by: Elle Mcleod M.D. 01/26/2025 8:30 AM Dictation Location: [place] [address] Electronically authenticated by: [id number] Y Date: 01/26/2025 08:30
== END 2025-01-26 07:45 | disposition home or self-care (01) ==
LOC: US 07:00 → FBC 07:02
PROVIDERS: Visit Provider Obstetrics & Gynecology
DX: O24.113 Pre-existing type 2 diabetes mellitus, in pregnancy, third trimester (principal); Z3A.38 38 weeks gestation of pregnancy
CPT/HCPCS: 76818

== ENCOUNTER 2025-01-30 07:03 | Outpatient (OUT) | payer BC, SELFPAY ==
--- OUTSIDE RECORDS SUMMARY | 2025-01-30 07:07 | XMS_ITS | CCD ---
Author Organization [facility] Care Team Providers Care Tobacco Prevention Health Educator Name Role Phone Unavailable Primary Care Provider Unavailabl e FLORO, DARÍO Referring Unavailable Floro CNM, Darío L Unavailable Unallocated , Noms Provider Primary Care Provi mart Awilda Delatorre DO Unavailable Unallocated , Noms Provider Primary Care Provi mart Floro [employer]ATE-CNM, Darío Primary Care Provider 1( [phone] SVETLANA JACK Attending Unavailable FLORO, DARÍO Referring [...] Referring Unavailable FLORO, DARÍO Primary Care Unavailable Awilda Delatorre DO Unavailable DARÍO BANUELOS Attending Unavailable PETZNICK, AWILDA M Attending Unavailable FLORO, DARÍO L Attending Unavailable FLORO, DARÍO Mccoy Attending Unavailable PETZNICK, AWILDA M Attending Unavailable FLORO, DARÍO Mccoy Attending Unavailable FLORO, DARÍO Mccoy Referring Unavailable FLACOHENRY SIDHU Attending Unavailable FLORO, DARÍO Mccoy Referring Unavailable FLORO, DARÍO Mccoy Attending Unavailable FLORO, DARÍO Mccoy Attending Unavailable FLORO, DARÍO Mccoy Attending Unavailable FLORO, DARÍO Mccoy Attending Unavailable PETZNICK, AWILDA M Attending Unavailable FLORO, DARÍO Mccoy Attending Unavailable PETZNICK, AWILDA M Attending Unavailable PETZNICK, AWILDA M Attending Unavailable FLORO, DARÍO Mccoy Referring Unavailable FLORO, DARÍO Mccoy Attending Unavailable FLORO, DARÍO Mccoy Attending Unavailable PETZNICK, AWILDA M Attending Unavailable PETZNICK, AWILDA M Referring Unavailable Medications Current Medications [...] Active docusate sodium 100 mg oral capsule (20 sources) Start: 12-28-2024 End: 04-27-2025 take 1 capsule by mouth in the morning docusate sodium (Colace) 100 MG capsule Indications: Anemia during in third trimester (HHS-HCC) Take 1 capsule (100 mg) by mouth in the morning and 1 capsule (100 mg) before bedtime. 60 capsule 3 12/28/2024 04/27/2025 Active ferrous sulfate 325 mg delayed release oral tablet (20 sources) Start: 12-28-2024 End: 12-28-2025 take 1 [...] complication, without long-term current use of insulin ([facility]) 15 units in the am and 25 [...] type 2 diabetes mellitus in second trimester ([facility]) 1-2 units breakfast, 5-12 units lunch/dinner (max [...] 04-16-2023 Chronic Other and delivery including normal (16 sources) First trimester ; Translations: [Encounter for [...] Facility US OB BPP W NON-STRESS on 01-26-[address] [address] Ultrasound Report Signed Patient: REGINALD REYES MR#: [id number] : 1995 Acct:[id number] Age/Sex: 29 / F ADM Date: 01/26/25 Loc: US Attending Dr: Henry Sam D.O. Ordering Physician: Henry Sam D.O. Date of Service: 01/26/25 Procedure(s): US OB BPP w non-stress Accession Number(s): [id number] cc: Henry Sam D.O.; Physician,Non-Staff Magaly [address] [address] Patient Name: REGINALD REYES MRN: [id number] date: 1995 Sex: F Assigned Patient Location: [facility] Current Patient Location: Accession/Order Number: [id number] Exam Date: 01/26/2025 08:28 Report Date: 01/26/2025 08:30 At the request of: HENRY SAM DO Procedure: US OB BPP w non-stress BIOPHYSICAL PROFILE: CLINICAL INFORMATION: WITH TYPE 2 DIABETES MELLITUS O24.113 COMPARISON: 01/19/2025 There is a single live intrauterine gestation in cephalic presentation. The reported gestational age is 36 weeks 4 days. The heart rate measures 134 beats per minute. FINDINGS: TONE: 1 or more episodes of [...] greater than 2 cm [Y] 2/2 DL: 14.0 cm. This is normal. Total score: 8/8 US/US OB BPP w non-stress IMPRESSION: NORMAL BIOPHYSICAL PROFILE . Impression dictated by: Elle Mcleod M.D. 01/26/2025 8:30 AM Dictation Location: [place] [address] Electronically authenticated by: [id number] Y Date: 01/26/2025 08:30 Dictated By: Elle Mcleod M.D. Signed By: 01/26/2532 DD/ 9 TD/TT: Semi Driver: [facility] Radiology, Radiologist, MD - 01/26/2025 [place] [address] Ultrasound Report Signed Patient: REGINALD REYES MR#: [id number] : 1995 Acct:[id number] Age/Sex: 29 / F ADM Date: 01/26/25 Loc: US Attending Dr: Henry Sam D.O. Ordering Physician: Henry Sam D.O. Date of Service: 01/26/25 Procedure(s): US OB BPP w non-stress Accession Number(s): [id number] cc: Henry Sam D.O.; Physician,Non-Staff Magaly The [place] [id number] Patient Name: REGINALD REYES MRN: [facility]:[id number] date: 1995 Sex: F Assigned Patient Location: [facility] Current Patient Location: Accession/Order Number: [id number] Exam Date: 01/26/2025 08:28 Report Date: 01/26/2025 08:30 At the request of: HENRY SAM DO Procedure: US OB BPP w non-stress BIOPHYSICAL PROFILE: CLINICAL INFORMATION: WITH TYPE 2 DIABETES MELLITUS O24.113 COMPARISON: 01/19/2025 There is a single live intrauterine gestation in cephalic presentation. The reported gestational age is 36 weeks 4 days. The heart rate measures 134 beats per minute. FINDINGS: TONE: 1 or more episodes of [...] greater than 2 cm [Y] 2/2 DL: 14.0 cm. This is normal. Total score: 8/8 US/US OB BPP w non-stress IMPRESSION: NORMAL BIOPHYSICAL PROFILE . Impression dictated by: Elle Mcleod M.D. 01/26/2025 8:30 AM Dictation Location: [place] [address] Electronically authenticated by: [id number] Y Date: 01/26/2025 08:30 Dictated By: Elle Mcleod M.D. Signed By: 01/26/25831 DD/ 9 TD/TT: Semi Driver: [facility] Radiology Study observation (narrative) [facility] US OB BPP W NON-STRESS Ordered By: Radiologist Radiology on 01-26-2025 [facility] Work Phone: US OB BPP W NON-STRESS on 01-19-2025 [place] [address] Ultrasound Report Signed Patient: REGINALD REYES MR#: [id number] : 1995 Acct:[id number] Age/Sex: 29 / F ADM Date: 01/19/25 Loc: [facility] 250-[address]: Henry Sam D.O. Ordering Physician: Henry Sam D.O. Date of Service: 01/19/25 Procedure(s): US OB BPP w non-stress Accession Number(s): [id number] cc: Henry Sam D.O.; Physician,Non-Staff Magaly The [address] [address] Patient Name: REGINALD REYES MRN: [id number] date: 1995 Sex: F Assigned Patient Location: [facility] Current Patient Location: [facility] Accession/Order Number: [id number] Exam Date: 01/19/2025 07:35 Report Date: 01/19/2025 [...] Roberson M.D. 01/19/2025 7:37 AM [facility]ictation [facility] Electronically authenticated by: [id number] Y Date: 01/19/2025 07:37 Dictated By: Zak Roberson M.D. Signed By: 01/19/25 0739 DD/ 0737 TD/TT: Semi Driver: [facility] Radiology, Radiologist, MD - 01/19/2025 [place] [address] Ultrasound Report Signed Patient: REGINALD REYES MR#: [id number] : 1995 Acct:[id number] Age/Sex: 29 / F ADM Date: 01/19/25 Loc: [facility] 250-[address]: Henry Sam D.O. Ordering Physician: Henry Sam D.O. Date of Service: 01/19/25 Procedure(s): US OB BPP w non-stress Accession Number(s): [id number] cc: Henry Sam D.O.; Physician,Non-Staff Magaly The [place] [address] Patient Name: REGINALD REYES MRN: [facility]:[id number] date: 1995 Sex: F Assigned Patient Location: [facility] Current Patient Location: [facility] Accession/Order Number: [id number] Exam Date: 01/19/2025 07:35 Report Date: 01/19/2025 [...] Roberson M.D. 01/19/2025 7:37 AM Dictation Location: [place] [address] Electronically authenticated by: [id number] Y Date: 01/19/2025 07:37 Dictated By: Zak Roberson M.D. Signed By: 01/19/25 0739 DD/ 0737 TD/TT: Semi Driver: [facility] Radiology Study observation (narrative) [facility] US OB BPP W NON-STRESS Ordered By: Radiologist Radiology on 01-19-2025 [facility] Work Phone: HbA1c (Bld) [Mass fraction]o n 01-18-2025 Interpretation and review of laboratory results Normal [facility] - Hematology and Cell countson 01-18-2025 HbA1c (Bld) [Mass fraction] 6.1 % [facility] No Panel InformationOrdered By: Radiologist Radiology on 01-12-2025 [facility] Work Phone: No Panel Informationon 01-12 Radiology Study observation (narrative) [facility] US OB BPP W NON-STRESS on 01-12-2025 [place] [address] Ultrasound Report Signed Patient: GEOVANNYREGINALD M MR#: [id number] : 1995 Acct:[id number] Age/Sex: 29 / F ADM Date: 01/12/25 Loc: US Attending Dr: Henry Sam D.O. Ordering Physician: Henry Sam D.O. Date of Service: 01/12/25 Procedure(s): US OB BPP w non-stress Accession Number(s): [id number] cc: Henry Sam D.O.; Physician,Non-Staff Magaly [place] [address] Patient Name: REGINALD REYES MRN: [id number] date: 1995 Sex: F Assigned Patient Location: [facility] Current Patient Location: [facility] Accession/Order Number: [id number] Exam Date: 01/12/2025 11:54 Report Date: 01/12/2025 [...] Mcleod M.D. 01/12/2025 12:00 PM Dictation Location: [place] [address] Electronically authenticated by: [id number] Y Date: 01/12/2025 12:00 Dictated By: Elle Mcleod M.D. Signed By: 01/12/25 1203 DD/ 1200 TD/TT: Semi Driver: [facility] Radiology, Radiologist, MD - 01/12/2025 [place] [address] Ultrasound Report Signed Patient: REGINALD REYES MR#: [id number] : 1995 Acct:[id number] Age/Sex: 29 / F ADM Date: 01/12/25 Loc: US Attending Dr: Henry Sam D.O. Ordering Physician: Henry Sam D.O. Date of Service: 01/12/25 Procedure(s): US OB BPP w non-stress Accession Number(s): [id number] cc: Henry Sam D.O.; Physician,Non-Staff Magaly The [place] [id number] Patient Name: REGINALD REYES MRN: [facility]:[id number] date: 1995 Sex: F Assigned Patient Location: [facility] Current Patient Location: [facility] Accession/Order Number: [id number] Exam Date: 01/12/2025 11:54 Report Date: 01/12/2025 [...] Mcleod M.D. 01/12/2025 12:00 PM Dictation Location: [place] [address] Electronically authenticated by: [id number] Y Date: 01/12/2025 12:00 Dictated By: Elle Mcleod M.D. Signed By: 01/12/25 1203 DD/ 1200 TD/TT: Semi Driver: [facility] OB GROWTHon 01-12-[address] [address] Ultrasound Report Signed Patient: REGINALD REYES MR#: [id number] : 1995 Acct:[id number] Age/Sex: 29 / F ADM Date: 01/12/25 Loc: US Attending Dr: Henry Sam D.O. Ordering Physician: Henry Sam D.O. Date of Service: 01/12/25 Procedure(s): US OB growth Accession Number(s): [id number] cc: Henry Sam D.O.; Physician,Non-Staff Magaly [address] [address] Patient Name: REGINALD REYES MRN: [facility]:[id number] date: 1995 Sex: F Assigned Patient Location: [facility] Current Patient Location: [facility] Accession/Order Number: [id number] Exam Date: 01/12/2025 11:54 Report Date: 01/12/2025 [...] Mcleod M.D. 01/12/2025 12:00 PM Dictation Location: [place] [address] Electronically authenticated by: [id number] Y Date: 01/12/2025 12:00 Dictated By: Elle Mcleod M.D. Signed By: 01/12/25 1203 DD/ 1200 TD/TT: Semi Driver: [facility] Radiology, Radiologist, MD - 01/12/2025 [place] [address] Ultrasound Report Signed Patient: REGINALD REYES MR#: [id number] : 1995 Acct:[id number] Age/Sex: 29 / F ADM Date: 01/12/25 Loc: US Attending Dr: Henry Sam D.O. Ordering Physician: Henry Sam D.O. Date of Service: 01/12/25 Procedure(s): US OB growth Accession Number(s): [id number] cc: Henry Sam D.O.; Physician,Non-Staff Magaly The [place] [id number] Patient Name: REGINALD REYES MRN: [facility]:[id number] date: 1995 Sex: F Assigned Patient Location: [facility] Current Patient Location: [facility] Accession/Order Number: [id number] Exam Date: 01/12/2025 11:54 Report Date: 01/12/2025 [...] Mcleod M.D. 01/12/2025 12:00 PM Dictation Location: [place] [address] Electronically authenticated by: [id number] Y Date: 01/12/2025 12:00 Dictated By: Elle Mcleod M.D. Signed By: 01/12/25 1203 DD/ 1200 TD/TT: Semi Driver: [facility] Bacteria identified Cx Nom ( U)on 01-04-2025 Appearance (U) Adequate [facility] Internal identifier for Provider [id number] [facility] Specimen source Nom (Unsp spec) URINE [facility] STATUS FINAL [facility] Performing Organization Information Site ID: QPT Name: [facility] Address: [address] [place] [address], [address] [place] [id number] Director: Devendra Aguilar MD [facility] - Microbiology an d Antimicrobial susceptibilityon 01-04-2025 Bacteria identified Cx Nom (U) SEE NOTE [facility] Comment on above: Less than 10,000 CFU/mL of single Gram positive organism isolated. No further testing will be performed. If clinically indicated, recollection using a method to minimize contamination, with prompt transfer to Urine Culture Transport Tube, is recommended. US OB BPP W NON-STRESS on 12-29-2024 [place] [address] Ultrasound Report Signed Patient: REGINALD REYES MR#: [id number] : 1995 Acct:[id number] Age/Sex: 29 / F ADM Date: 12/29/24 Loc: US Attending Dr: Henry Sam D.O. Ordering Physician: Henry Sam D.O. Date of Service: 12/29/24 Procedure(s): US OB BPP w non-stress Accession Number(s): [id number] cc: Henry Sam D.O.; Physician,Non-Staff Magaly [place] [phone] Patient Name: REGINALD REYES MRN: [id number] date: 1995 Sex: F Assigned Patient Location: [facility] Current Patient Location: Accession/Order Number: [id number] Exam Date: 12/29/2024 09:34 Report Date: 12/29/2024 [...] 12/29/2024 9:36 AM Dictation Location: [place] [address] Electronically authenticated by: [id number] Y Date: 12/29/2024 09:36 Dictated By: Zak Roberson M.D. Signed By: 12/29/2438 DD/ 5 TD/TT: Semi Driver: [facility] Radiology, Radiologist, - 12/29/2024 [place] [address] Ultrasound Report Signed Patient: REGINALD REYES MR#: [id number] : 1995 Acct:[id number] Age/Sex: 29 / F ADM Date: 12/29/24 Loc: US Attending Dr: Henry aSm D.O. Ordering Physician: Henry Sam D.O. Date of Service: 12/29/24 Procedure(s): US OB BPP w non-stress Accession Number(s): [id number] cc: Henry Sam D.O.; Physician,Non-Staff Magaly The [place] [phone] Patient Name: REGINALD REYES MRN: [facility]:[id number] date: 1995 Sex: F Assigned Patient Location: [facility] Current Patient Location: Accession/Order Number: [id number] Exam Date: 12/29/2024 09:34 Report Date: 12/29/2024 [...] 12/29/2024 9:36 AM Dictation Location: [place] [address] Electronically authenticated by: [id number] Y Date: 12/29/2024 09:36 Dictated By: Zak Roberson M.D. Signed By: 12/29/24937 DD/ 5 TD/TT: Semi Driver: [facility] Radiology Study observation (narrative) [facility] US OB BPP W NON-STRESS Ordered By: Radiologist Radiology on 12-29-2024 [facility] Work Phone: Urinalysis macro (dipstick) panel (U)on 12-25-2024 Bilirubin, UA Negative Negative - 4(70) +++ mg/dL [facility] Blood, UA Negative Negative - 50 Skinny/mcL [facility] Clarity, UA Clear [facility] Color, UA Yellow [facility] Glucose, UA Negative Negative - 2000(110) ++++ mg/dL [facility] Interpretation and review of laboratory results Normal [facility] Ketones, UA Negative Negative - 160(16) ++++ mg/dL [facility] Leukocytes, UA Positive Negative - 500+++ Cal/mcL [facility] Comment on above: small Nitrite, UA Negative Negative - Positive [facility] pH, UA 6.5 5 - 9 [facility] Protein, UA Negative Negative - 2000(20) ++++ mg/dL [facility] Spec Grav, UA 1.02 1 - 1.03 [facility] Urobilinogen, UA 1.0 0.2 - 12 mg/dL [facility] US OB FOLLOW UP TRANSABDOMIN AL APPROACHon [...] II, MD, PHD at 12-Dec-2024 07:13:14 PM [facility] Normal Not Available POCT EKGOrdered By: Abby Andino on 11-08-2024 [facility] HbA1c (Bld) [Mass fraction]o n 10-09-2024 Interpretation and review of laboratory results Normal [facility] - Hematology and Cell countson 10-09-2024 HbA1c (Bld) [Mass fraction] 5.7 % [facility] POCT EKGon 09-19-2024 [facility] No Panel Informationon 08-14 [facility] Chlamydia/GC by PCR ThinPrep fluidon 07-11-2024 Chlamydia Dna(Pcr) Negative [facility] Gonorrhoeae Dna(Pcr) Negative [facility] Drug Screen, Urineon 024 Amphetamine/Methampheta mine Negative [facility] Opiate Quantitative Urine Negative [facility] HIV 1&2 AB/AG Screen (P24 AG )on 07-10-2024 HIV 1&2 AB/AG Non-Reactive [facility] Hemoglobin A1con 07-10-2024 HbA1c (Bld) [Mass fraction] 6.4 % Abnormal 4.0 - 6.0 % [facility] Interpretation and review of laboratory results Abnormal [facility] No Panel Informationon 07-10 [facility] Type and screenon 07-10-2024 Abo/Rh(D) Positive [facility] US OB < 14 WEEKS EARLYon [...] and review of laboratory results Normal [facility] - Hematology and Cell countson 06-08-2024 HbA1c (Bld) [Mass fraction] 6.2 % [facility] Cytology Cervical or vaginal smear or scraping studyOrdered By: Christen Nettles on 02-10-2023 [facility] Hemoglobin A1Con 07-05-2019 HbA1c (Bld) [Mass fraction] 5.9 % Normal 4.8-5.9 [facility] Comment on above: Performed By: #### G LYHGAmanda, LIPR #### [facility] [address] [place] [address] [place] [address] Plate Drying Machine Tender: Ruslan Fernando MD #### INSU #### [facility] UYA[address] [place] [address] Plate Drying Machine Tender: Marv Guzman MD [facility] [address] [place] [address] Plate Drying Machine Tender: Ruslan Fernando MD HbA1c (Bld) [Mass fraction] 123 mg/dL Normal [facility] Comment on above: Result Comment: The ADA and AACC recommend providing the estimated average glucose result to permit better patient understanding of their HBA1c result. Performed By: #### G LYHGB, LIPR #### [address] [place] [address] Plate Drying Machine Tender: Ruslan Fernando MD #### INSU #### [place] [address] [place] [address] Plate Drying Machine Tender: Marv Guzman MD [address] [place], [place] [address] Plate Drying Machine Tender: Ruslan Fernando MD Glucose [Mass/Vol] 123 mg/dL [place], [place] Comment on above: The ADA and AACC rec ommend providing the estimated average glucose result to permit better patient understanding of their HBA1c result. HbA1c (Bld) [Mass fraction] 5.9 % 4.8 - 5.9 % [place], [place] Insulinon 07-05-2019 Insulin 36.2 mU/L Normal [facility] Comment on above: Performed By: #### G LYHGB, LIPR #### [address] [place], [place] [address] Plate Drying Machine Tender: Ruslan Fernando MD #### INSU #### [address] [address] Plate Drying Machine Tender: Mrav Guzman MD [address] [place] [address] Plate Drying Machine Tender: Ruslan Fernando MD Reference Range [facility] Comment on above: Result Comment: Fast in.6-24.9 30 min: 20-112 60 min: 29-88 90 min: 26-84 120 min: 22-79 Performed By: #### G LYHGB, LIPR #### [address] [place], [place] [address] Plate Drying Machine Tender: Ruslan Fernando MD #### INSU #### [place] [address] [place] [address] Plate Drying Machine Tender: Marv Guzman MD [address] [place] [address] Plate Drying Machine Tender: Ruslan Fernando MD Collection Info. 0822 Normal [facility] Comment on above: Performed By: #### G LYHGB, LIPR #### [facility] [address] [place], [place] [address] Plate Drying Machine Tender: Ruslan Fernando MD #### INSU #### [facility] [address] [place], [place] [id number] Plate Drying Machine Tender: Marv Guzman MD [facility] [address] [place] [address] Plate Drying Machine Tender: Ruslan Fernando MD Insulin, totalon 07-05-2019 INR Coag (Bld) [Relative time] [place], [place] Comment on above: Fastin.6-24.9 30 min: 20-112 60 min: 29-88 90 min: 26-84 120 min: 22-79 Insulin 36.2 mU/L [place] Insulin Comment [address] [place], [place] Lipid Panelon 07-05-2019 Cholesterol [Mass/Vol] 204 mg/dL High <200 Me [place], [place] Comment on above: Cholesterol Guidelines: <200 Desirable 200-240 Borderline >240 Undesirable Cholesterol in HDL [Mass/Vol] 35 mg/dL Low >40 [place], [place] Comment on above: HDL Guidelines: <40 Undesirable 40-59 Borderline >59 Desirable Cholesterol in LDL [Mass/Vol] 102 mg/dL 0 - 130 mg/dL [place] Comment on above: LDL Guidelines: <100 Desirable 100-129 Near to/above Desirable 130-159 Borderline >159 Undesirable Direct (measured) LDL and calculated LDL are not interchangeable tests. Cholesterol in VLDL [Mass/Vol] NOT REPORTED High 1 - 30 mg/dL [place] Cholesterol.total/Perla sterol in HDL [Mass ratio] 5.8 {ratio} High <5 [place] Interpretation and review of laboratory results Abnormal [place] Triglyceride [Mass/Vol] 336 mg/dL High <150 M [place], [place] Comment on above: Triglyceride Guidelines: <150 Desirable 150-199 Borderline 200-499 High >499 Very high Based on AHA Guidelines for fasting triglyceride, May 2012. Lipid Profileon 07-05-2019 Cholesterol [Mass/Vol] 204 mg/dL High <200 [facility] Comment on above: Result Comment: Cholesterol Guidelines: <200 Desirable 200-240 Borderline >240 Undesirable Performed By: #### G LYHGB, LIPR #### [facility] [address] [place] [address] [place] [address] Plate Drying Machine Tender: Ruslan Fernando MD #### INSU #### [address] [address] Plate Drying Machine Tender: Marv Guzman MD [address] [place] [address] Plate Drying Machine Tender: Ruslan Fernando MD Cholesterol in HDL [Mass/Vol] 35 mg/dL Low >40 [facility] Comment on above: Result Comment: HDL Guidelines: <40 Undesirable 40-59 Borderline >59 Desirable Performed By: #### G LYHGB, LIPR #### [address] [place], [place] [address] Plate Drying Machine Tender: Ruslan Fernando MD #### INSU #### [address] [address] Plate Drying Machine Tender: Marv Guzman MD [address] [place] [address] Plate Drying Machine Tender: Ruslan Fernando MD Cholesterol in LDL [Mass/Vol] 102 mg/dL Normal 0-130 [facility] Comment on above: Result Comment: LDL Guidelines: <100 Desirable 100-129 Near to/above Desirable 130-159 Borderline >159 Undesirable Direct (measured) LDL and calculated LDL are not interchangeable tests. Performed By: #### G LYHGB, LIPR #### [facility] [address] [place] [address] [place] [address] Plate Drying Machine Tender: Ruslan Fernando MD #### INSU #### [address] [place] [address] Plate Drying Machine Tender: Marv Guzman MD [address] [place] [address] Plate Drying Machine Tender: Ruslan Fernando MD Cholesterol.total/Perla sterol in HDL [Mass ratio] 5.8 {ratio} High <5 [facility] Comment on above: Performed By: #### G LYHGB, LIPR #### [address] [place] [address] Plate Drying Machine Tender: Ruslan Fernando MD #### INSU #### [facility] [address] [place] [address] Plate Drying Machine Tender: Marv Guzman MD [address] [place], [place] [id number] Plate Drying Machine Tender: Ruslan Fernando MD Triglyceride [Mass/Vol] 336 mg/dL High <150 M [facility] Comment on above: Result Comment: Triglyceride Guidelines: <150 Desirable 150-199 Borderline 200-499 High >499 Very high Based on AHA Guidelines for fasting triglyceride, May 2012. Performed By: #### G LYHGB, LIPR #### [address] [place] [address] Plate Drying Machine Tender: Ruslan Fernando MD #### INSU #### [facility] [address] [place] [id number] Plate Drying Machine Tender: Marv Guzman MD [address] [place], [place] [id number] Plate Drying Machine Tender: Ruslan Fernando MD Cholesterol in VLDL [Mass/Vol] NOT REPORTED Normal 30 [facility] Comment on above: Performed By: #### G LYHGB, LIPR #### [address] [place], [place] [id number] Plate Drying Machine Tender: Ruslan Fernando MD #### INSU #### [facility] [address] [place], [place] [id number] Plate Drying Machine Tender: Marv Guzman MD [facility] [address] [place] [address] Plate Drying Machine Tender: Ruslan Fernando MD Vital Signs Date Time Vital Sign Value Performing Clinician Facility 01-29-2025 16:33-0400 Body mass index (BMI) [Ratio] 34.72 kg/m2 Darío Floro CNM Work Phone: [facility] 01-29-2025 16:33-0400 Body weight 109.77 kg Darío Floro CNM Work Phone: [facility] 01-29-2025 16:33-0400 Diastolic blood pressure 60 mm[Hg] Darío Floro CNM Work Phone: [facility] 01-29-2025 16:33-0400 Systolic blood pressure 120 mm[Hg] Darío Floro CNM Work Phone: [facility] 01-22-2025 16:32-0400 Body mass index (BMI) [Ratio] 34.44 kg/m2 Darío Floro CNM Work Phone: [facility] 01-22-2025 16:32-0400 Body weight 108.86 kg Darío Floro CNM Work Phone: [facility] 01-22-2025 16:32-0400 Diastolic blood pressure 70 mm[Hg] Darío Floro CNM Work Phone: [facility] 01-22-2025 16:32-0400 Systolic blood pressure 120 mm[Hg] Darío Floro CNM Work Phone: [facility] 01-18-2025 08:28-0400 Body height 177.8 cm Awilda Petznick DO Work Phone: [facility] 01-18-2025 08:28-0400 Body mass index (BMI) [Ratio] 34.44 kg/m2 Awilda Petznick DO Work Phone: [facility] 01-18-2025 08:28-0400 Body temperature 98.01 [degF] Awilda Petznick DO Work Phone: [facility] 01-18-2025 08:28-0400 Body weight 108.86 kg Awilda Petznick DO Work Phone: [facility] 01-18-2025 08:28-0400 Diastolic blood pressure 66 mm[Hg] Awilda Petznick DO Work Phone: [facility] 01-18-2025 08:28-0400 Heart rate 88 /min Awilda Petznick DO Work Phone: [facility] 01-18-2025 08:28-0400 SaO2% (BldA) [Mass fraction] 98 % Awilda Petznick DO Work Phone: [facility] 01-18-2025 08:28-0400 Systolic blood pressure 118 mm[Hg] Awilda Petznick DO Work Phone: [facility] 01-15-2025 16:36-0400 Body mass index (BMI) [Ratio] 34.87 kg/m2 Darío Sheebao CNM Work Phone: [facility] 01-15-2025 16:36-0400 Body weight 110.22 kg Darío Floro CNM Work Phone: [facility] 01-15-2025 16:36-0400 Diastolic blood pressure 78 mm[Hg] Darío Floro CNM Work Phone: [facility] 01-15-2025 16:36-0400 Systolic blood pressure 120 mm[Hg] Darío Floro CNM Work Phone: [facility] 01-09-2025 16:34-0400 Body mass index (BMI) [Ratio] 34.72 kg/m2 Darío Floro CNM Work Phone: [facility] 01-09-2025 16:34-0400 Body weight 109.77 kg Darío Floro CNM Work Phone: [facility] 01-09-2025 16:34-0400 Diastolic blood pressure 74 mm[Hg] Darío Floro CNM Work Phone: [facility] 01-09-2025 16:34-0400 Systolic blood pressure 120 mm[Hg] Darío Floro CNM Work Phone: [facility] 01-01-2025 16:33-0400 Body mass index (BMI) [Ratio] 34.29 kg/m2 Darío Floro CNM Work Phone: [facility] 01-01-2025 16:33-0400 Body weight 108.41 kg Darío Floro CNM Work Phone: [facility] 01-01-2025 16:33-0400 Diastolic blood pressure 72 mm[Hg] Darío Floro CNM Work Phone: [facility] 01-01-2025 16:33-0400 Systolic blood pressure 120 mm[Hg] Darío Floro CNM Work Phone: [facility] 12-26-2024 16:02-0400 Body mass index (BMI) [Ratio] 34.15 kg/m2 Darío Floro CNM Work Phone: [facility] 12-26-2024 16:02-0400 Body weight 107.96 kg Darío Floro CNM Work Phone: [facility] 12-26-2024 16:02-0400 Diastolic blood pressure 74 mm[Hg] Darío Floro CNM Work Phone: [facility] 12-26-2024 16:02-0400 Systolic blood pressure 116 mm[Hg] Darío Floro CNM Work Phone: [facility] 12-11-2024 15:56-0400 Diastolic blood pressure 70 mm[Hg] Darío Floro CNM Work Phone: [facility] 12-11-2024 15:56-0400 Systolic blood pressure 120 mm[Hg] Darío Floro CNM Work Phone: [facility] 12-07-2024 08:17-0400 Body height 177.8 cm Awilda Delatorre DO Work Phone: [facility] 12-07-2024 08:17-0400 Body temperature 97.9 [degF] Awilda Petznick DO Work Phone: [facility] 12-07-2024 08:17-0400 Diastolic blood pressure 66 mm[Hg] Awilda Petznick DO Work Phone: [facility] 12-07-2024 08:17-0400 Heart rate 86 /min Awilda Petznick DO Work Phone: [facility] 12-07-2024 08:17-0400 SaO2% (BldA) [Mass fraction] 98 % Awilda Petznick DO Work Phone: [facility] 12-07-2024 08:17-0400 Systolic blood pressure 126 mm[Hg] Awilda Petznick DO Work Phone: [facility] 11-15-2024 16:31-0400 Body mass index (BMI) [Ratio] 34.44 kg/m2 Darío Banuelos CNM Work Phone: [facility] 11-15-2024 16:31-0400 Body weight 108.86 kg Darío Banuelos CNM Work Phone: [facility] 11-15-2024 16:31-0400 Diastolic blood pressure 78 mm[Hg] Darío Banuelos CNM Work Phone: [facility] 11-15-2024 16:31-0400 Systolic blood pressure 120 mm[Hg] Darío Banuelos CNM Work Phone: [facility] 11-08-2024 09:17-0400 Body height 177.8 cm Tricia Rowland MD Work Phone: [facility] 11-08-2024 09:17-0400 Body mass index (BMI) [Ratio] 34.06 kg/m2 Tricia Rowland MD Work Phone: [facility] 11-08-2024 09:17-0400 Body weight 107.68 kg Tricia Rowland MD Work Phone: [facility] 11-08-2024 09:17-0400 Diastolic blood pressure 64 mm[Hg] Tricia Rowland MD Work Phone: [facility] 11-08-2024 09:17-0400 Heart rate 80 /min Tricia Rowland MD Work Phone: [facility] 11-08-2024 09:17-0400 SaO2% (BldA) [Mass fraction] 98 % Tricia Rowland MD Work Phone: [facility] 11-08-2024 09:17-0400 Systolic blood pressure 128 mm[Hg] Tricia Rowland MD Work Phone: [facility] 10-18-2024 16:37-0500 Body mass index (BMI) [Ratio] 34.15 kg/m2 Darío Díazo CNM Work Phone: [facility] 10-18-2024 16:37-0500 Body weight 107.96 kg Darío Díazo CNM Work Phone: [facility] 10-18-2024 16:37-0500 Diastolic blood pressure 60 mm[Hg] Darío Floro CNM Work Phone: [facility] 10-18-2024 16:37-0500 Systolic blood pressure 120 mm[Hg] Darío Díazo CNM Work Phone: [facility] 10-09-2024 15:40-0500 Body height 177.8 cm Awilda Petznick DO Work Phone: [facility] 10-09-2024 15:40-0500 Body mass index (BMI) [Ratio] 34.01 kg/m2 Awilda Petznick DO Work Phone: [facility] 10-09-2024 15:40-0500 Body temperature 98.2 [degF] Awilda Petznick DO Work Phone: [facility] 10-09-2024 15:40-0500 Body weight 107.5 kg Awilda Petznick DO Work Phone: [facility] 10-09-2024 15:40-0500 Diastolic blood pressure 66 mm[Hg] Awilda Petznick DO Work Phone: [facility] 10-09-2024 15:40-0500 Heart rate 98 /min Awilda Petznick DO Work Phone: [facility] 10-09-2024 15:40-0500 SaO2% (BldA) [Mass fraction] 98 % Awilda Petznick DO Work Phone: [facility] 10-09-2024 15:40-0500 Systolic blood pressure 128 mm[Hg] Awilda Petznick DO Work Phone: [facility] 09-28-2024 16:17-0500 Body mass index (BMI) [Ratio] 34.58 kg/m2 Darío Banuelos CNM Work Phone: [facility] 09-28-2024 16:17-0500 Body weight 109.32 kg Darío Banuelos CNM Work Phone: [facility] 09-28-2024 16:17-0500 Diastolic blood pressure 70 mm[Hg] Darío Banuelos CNM Work Phone: [facility] 09-28-2024 16:17-0500 Systolic blood pressure 120 mm[Hg] Darío Banuelos CNM Work Phone: [facility] 09-19-2024 10:31-0500 Body height 177.8 cm Aye Saucedo MD Work Phone: [facility] 09-19-2024 10:31-0500 Body mass index (BMI) [Ratio] 34.15 kg/m2 Aye Saucedo MD Work Phone: [facility] 09-19-2024 10:31-0500 Body weight 107.96 kg Aye Saucedo MD Work Phone: [facility] 09-19-2024 10:31-0500 Diastolic blood pressure 76 mm[Hg] Aye Saucedo MD Work Phone: [facility] 09-19-2024 10:31-0500 Heart rate 85 /min Aye Saucedo MD Work Phone: [facility] 09-19-2024 10:31-0500 SaO2% (BldA) [Mass fraction] 98 % Aye Saucedo MD Work Phone: [facility] 09-19-2024 10:31-0500 Systolic blood pressure 122 mm[Hg] Aye Saucedo MD Work Phone: [facility] 09-11-2024 08:12-0500 Body mass index (BMI) [Ratio] 34.29 kg/m2 Clarke Modi MD Work Phone: [facility] 09-11-2024 08:12-0500 Body weight 108.41 kg Clarke Modi MD Work Phone: [facility] 09-11-2024 08:12-0500 Diastolic blood pressure 81 mm[Hg] Clarke Modi MD Work Phone: [facility] 09-11-2024 08:12-0500 Heart rate 80 /min Clarke Modi MD Work Phone: [facility] 09-11-2024 08:12-0500 Systolic blood pressure 122 mm[Hg] Clarke Modi MD Work Phone: [facility] 09-01-2024 08:54-0500 Body height 177.8 cm Awilda Petznick DO Work Phone: [facility] 09-01-2024 08:54-0500 Body mass index (BMI) [Ratio] 34.44 kg/m2 Awilda Petznick DO Work Phone: [facility] 09-01-2024 08:54-0500 Body temperature 98.49 [degF] Awilda Petznick DO Work Phone: [facility] 09-01-2024 08:54-0500 Body weight 108.86 kg Awilda Petznick DO Work Phone: [facility] 09-01-2024 08:54-0500 Diastolic blood pressure 72 mm[Hg] Awilda Petznick DO Work Phone: [facility] 09-01-2024 08:54-0500 Heart rate 92 /min Awilda Petznick DO Work Phone: [facility] 09-01-2024 08:54-0500 SaO2% (BldA) [Mass fraction] 97 % Awilda Petznick DO Work Phone: [facility] 09-01-2024 08:54-0500 Systolic blood pressure 126 mm[Hg] Awilda Petznick DO Work Phone: [facility] 08-30-2024 16:08-0500 Body mass index (BMI) [Ratio] 34.58 kg/m2 Darío Díazo CNM Work Phone: [facility] 08-30-2024 16:08-0500 Body weight 109.32 kg Darío Díazo CNM Work Phone: [facility] 08-30-2024 16:08-0500 Diastolic blood pressure 68 mm[Hg] Darío Díazo CNM Work Phone: [facility] 08-30-2024 16:08-0500 Systolic blood pressure 120 mm[Hg] Darío Díazo CNM Work Phone: [facility] 08-14-2024 10:40-0500 Body height 177.8 cm Svetlana Lavoy PA-C Work Phone: [facility] 08-14-2024 10:40-0500 Body mass index (BMI) [Ratio] 34.72 kg/m2 Svetlana Lavoy PA-C Work Phone: [facility] 08-14-2024 10:40-0500 Body weight 109.77 kg Svetlana Lavoy PA-C Work Phone: [facility] 08-14-2024 10:40-0500 Diastolic blood pressure 68 mm[Hg] Svetlana Lavoy PA-C Work Phone: [facility] 08-14-2024 10:40-0500 Heart rate 86 /min Svetlana Lavoy PA-C Work Phone: [facility] 08-14-2024 10:40-0500 Systolic blood pressure 134 mm[Hg] Svetlana Lavoy PA-C Work Phone: [facility] 08-14-2024 09:42-0500 Body height 177.8 cm Shauna Denny RN Work Phone: [facility] 08-14-2024 09:41-0500 Body mass index (BMI) [Ratio] 34.72 kg/m2 Shauna Denny RN Work Phone: [facility] 08-14-2024 09:41-0500 Body weight 109.77 kg Shauna Denny RN Work Phone: [facility] 08-03-2024 08:36-0500 Body mass index (BMI) [Ratio] 35.3 kg/m2 Darío Floro CNM Work Phone: [facility] 08-03-2024 08:36-0500 Body weight 111.58 kg Darío Floro CNM Work Phone: [facility] 08-03-2024 08:36-0500 Diastolic blood pressure 80 mm[Hg] Darío Floro CNM Work Phone: [facility] 08-03-2024 08:36-0500 Systolic blood pressure 122 mm[Hg] Darío Floro CNM Work Phone: [facility] 07-10-2024 15:43-0500 Body mass index (BMI) [Ratio] 35.3 kg/m2 Darío Floro CNM Work Phone: [facility] 07-10-2024 15:43-0500 Body weight 111.58 kg Darío Floro CNM Work Phone: [facility] 07-10-2024 15:43-0500 Diastolic blood pressure 76 mm[Hg] Darío Floro CNM Work Phone: [facility] 07-10-2024 15:43-0500 Systolic blood pressure 120 mm[Hg] Darío Díazlaura BRAND Work Phone: [facility] [employer] 06-08-2024 14:04-0400 Body height 177.8 cm Awilda Petznick DO Work Phone: [facility] [employer] 06-08-2024 14:04-0400 Body mass index (BMI) [Ratio] 35.01 kg/m2 Awilda Petznick DO Work Phone: [facility] [employer] 06-08-2024 14:04-0400 Body temperature 98.49 [degF] Awilda Petznick DO Work Phone: [facility] [employer] 06-08-2024 14:04-0400 Body weight 110.68 kg Awilda Petznick DO Work Phone: [facility] 06-08-2024 14:04-0400 Diastolic blood pressure 72 mm[Hg] Awilda Petznick DO Work Phone: [facility] [employer] 06-08-2024 14:04-0400 Heart rate 87 /min Awilda Petznick DO Work Phone: [facility] [employer] 06-08-2024 14:04-0400 SaO2% (BldA) [Mass fraction] 98 % Awilda Petznick DO Work Phone: [facility] 06-08-2024 14:04-0400 Systolic blood pressure 138 mm[Hg] Awilda Petznick DO Work Phone: [facility] Healthcare Encounters Encounter Date Encounter Type Care Provider Facility Start: 01-29-2025 End: 01-29-2025 Subsequent care visit Darío L Vin BRAND Work Phone: [facility] Comment on above: with type 2 diabetes mellitus in third trimester ([facility]HS-HCC) (Primary Dx); Type 2 diabetes mellitus treated with insulin (HCC); Encounter for care of first , third trimester ([facility]HS-HCC) Start: 01-29-2025 End: 01-29-2025 Bamboo flowsheet Darío Banuelos CNM Work Phone: [facility] Start: 01-29-2025 End: 01-29-2025 Bamboo flowsheet Darío Banuelos CNM Work Phone: [facility] Start: 01-26-2025 End: 01-26-2025 Clinisync Result Encounter Henry Flaco DO Work Phone: [facility] External [facility] Unsolicited Start: 01-26-2025 End: 01-26-2025 Clinisync Result Encounter Henry Flaco DO Work Phone: [facility] Unsolicited Start: 01-22-2025 End: 01-22-2025 ambulatory DARÍO BANUELOS Not Available Start: 01-22-2025 End: 01-22-2025 Subsequent care visit Darío Banuelos CNM Work Phone: [facility] Comment on above: screening for streptococcus B (Primary Dx); with type 2 diabetes mellitus in third trimester; Type 2 diabetes mellitus treated with insulin ([facility]) Start: 01-22-2025 End: 01-22-2025 Bamboo flowsheet Darío Banuelos CNM Work Phone: [facility] Start: 01-22-2025 End: 01-22-2025 Bamboo flowsheet Darío Banuelos CNM Work Phone: [facility] Start: 01-19-2025 End: 01-19-2025 Clinisync Result Encounter Henry Flaco DO Work Phone: [facility] Unsolicited Start: 01-19-2025 End: 01-19-2025 Clinisync Result Encounter Henry Flaco DO Work Phone: [facility] Unsolicited Start: 01-18-2025 End: 01-18-2025 Office outpatient visit 15 minutes Awilda Delatorre DO Work Phone: [phone] Comment on above: with [...] Start: 01-15-2025 End: 01-15-2025 Bamboo flowsheet Darío Nadine Floro CNM Work Phone: [facility] Start: 01-15-2025 End: 01-15-2025 Bamboo flowsheet Darío Nadine Floro CNM Work [...] 2 diabetes guerrero itus treated with insulin ([facility]) (Primary Dx); Encounter for care of first , third trimester Start: 01-09-2025 End: 01-09-2025 Bamboo flowsheet Darío Nadine Floro CNM Work Phone: [facility] Start: 01-09-2025 End: 01-09-2025 Bamboo flowsheet Darío Nadine Floro CNM Work Phone: [facility] Start: 01-01-2025 End: 01-01-2025 ambulatory DARÍO Nadine DÍAZO Not Available Start: 01-01-2025 End: 01-01-2025 Subsequent care visit Darío Díazo CNM Work Phone: [facility] Comment on above: Screening for iron d eficiency anemia (Primary Dx); Dysuria Start: 01-01-2025 End: 01-01-2025 Bamboo flowsheet Darío Nadine Díazo CNM Work [...] 12-26-2024 End: 12-26-2024 Subsequent care visit Darío Díazo CNM Work Phone: [facility] Comment on above: with type 2 diabetes mellitus in third trimester (Primary Dx); Screening for iron deficiency anemia; Type 2 diabetes mellitus treated with insulin ([facility]) Start: 12-26-2024 End: 12-26-2024 Bamboo flowsheet Darío L Sheebao CNM Work [...] minutes Awilda Delatorre DO Work Phone: [phone] Comment on above: with type 2 diabetes mellitus in third trimester (Primary Dx); with type 2 diabetes mellitus in second trimester Start: 12-07-2024 End: 12-07-2024 ambulatory AWILDA CANSECOICK Not Available Start: 11-15-2024 End: 11-15-2024 Subsequent care visit Darío L Floro CNM Work Phone: [facility] Comment on above: Encounter for prenat al care of first , second trimester (Primary Dx); related condition in third trimester; Gestational diabetes mellitus (GDM) requiring insulin Start: 11-15-2024 End: 11-15-2024 ambulatory DARÍO L FLORO Not Available Start: 11-15-2024 End: 11-15-2024 Bamboo flowsheet Darío Nadine Dízao CNM Work Phone: [facility] Start: 11-15-2024 End: 11-15-2024 Bamboo flowsheet Darío Nadine Díazo CNM Work Phone: [facility] Start: 11-08-2024 End: 11-08-2024 Office outpatient new 30 minutes Aye Saucedo MD Work Phone: [facility] Comment on above: Long Q-T syndrome (P rimary Dx); Hx of prolonged Q-T interval on ECG Start: 11-08-2024 End: 11-08-[address] [facility] Start: 11-07-2024 End: 11-07-2024 Telephone encounter Abby Andino [facility] Start: 10-31-2024 End: 10-31-2024 ambulatory [facility] Start: 10-18-2024 End: 10-18-2024 Subsequent care visit Darío Díazo CNM Work Phone: [facility] Comment on above: Type 2 diabetes guerrero itus with hyperosmolarity without coma, without long-term current use of insulin (HCC) (Primary Dx); Encounter for care of first , second trimester ([facility]-H[facility]) Start: 10-18-2024 End: 10-18-2024 ambulatory DARÍO DÍAZO Not Available Start: 10-18-2024 End: 10-18-2024 Bamboo flowsheet Darío Nadine Díazo CNM Work Phone: [facility] Start: 10-18-2024 End: 10-18-2024 Bamboo flowsheet Darío Nadine Floro CNM Work Phone: [facility] Start: 10-10-2024 End: 10-10-2024 Office outpatient visit 25 minutes Clarke Modi MD Work Phone: [facility] Comment on above: Pre-existing type 2 diabetes mellitus during in second trimester (Primary Dx) Start: 10-10-2024 End: 10-10-2024 ambulatory CLARKE JUAREZHID [facility] Start: 10-09-2024 End: 10-09-2024 Office outpatient visit 15 minutes Awilda Goldsteinbruno DO Work Phone: [phone] Comment on above: with type 2 diabetes mellitus in second trimester (Primary Dx); Type 2 diabetes mellitus without complication, without long-term current use of insulin ([facility]) Start: 10-09-2024 End: 10-09-2024 ambulatory AWILDA DELATORRE Not Available Start: 10-03-2024 End: 10-03-2024 ambulatory [facility] Start: 09-28-2024 End: 09-28-2024 Subsequent care visit Darío Mccoy Vin CNM Work Phone: [facility] Comment on above: Encounter for prenat al care of first , second trimester (Primary Dx); Type 2 diabetes mellitus without complication, without long-term current use of insulin (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 ([facility]-H[facility]) Start: 09-19-2024 End: 09-19-2024 ambulatory AYE SAUCEDO [facility] Start: 09-18-2024 End: 09-18-2024 Telephone encounter Abby Andino CMA [facility] Start: 09-14-2024 End: 09-14-2024 Chart abstracting Jacque Schneider MD Work Phone: [facility] Start: 09-11-2024 End: 09-11-2024 Telephone encounter Yudelka Randall RN [facility] Start: 09-11-2024 End: 09-11-2024 Office outpatient visit 25 minutes Clarke Modi MD Work Phone: [facility] Comment on above: Pre-existing type 2 diabetes mellitus during in second trimester (Primary Dx); Long Q-T syndrome Start: 09-11-2024 End: 09-11-2024 ambulatory [facility] Start: 09-05-2024 End: 09-05-2024 Telephone encounter Sparkle Castillo RN [facility] Start: 09-01-2024 End: 09-01-2024 Office outpatient visit [...] without long- term current use of insulin (HCC) Start: 08-28-2024 End: 08-28-2024 Telephone encounter Donna Posadas RN [facility] Start: 08-23-2024 End: 08-23-2024 Office outpatient visit 25 minutes Ariella PIERRE Work Phone: [facility] Comment on above: Type 2 diabetes guerrero itus without complication, unspecified whether intermediate insulin use ([facility]) (Primary Dx) Start: 08-23-2024 End: 08-23-2024 ambulatory ARIELLA ROBERTO [facility] Start: 08-14-2024 End: 08-14-2024 Office outpatient new 45 minutes Svetlana Jack PA-C Work Phone: [facility] Comment on above: with type 2 diabetes mellitus in second trimester (Primary Dx); Long Q-T syndrome Start: 08-14-2024 End: 08-14-2024 ambulatory Shauna Denny RN Work Phone: [facility] Comment on above: Pre-existing type 2 diabetes mellitus in in first trimester with type 2 diabetes mellitus in second trimester (Primary Dx) Start: 08-03-2024 End: 08-03-2024 Bamboo flowsheet Darío Díazo CNM Work Phone: [facility] Start: 08-03-2024 End: 08-03-2024 Bamboo flowsheet Darío Nadine Díazo CNM Work Phone: [facility] Start: 08-03-2024 End: 08-03-2024 Subsequent care visit Darío Díazo CNM Work Phone: [facility] Comment on above: Encounter for prenat al care of first , first trimester (Primary Dx); Type 2 diabetes mellitus with hyperosmolarity without coma, without long-term current use of insulin (CMS/[facility]) Start: 08-03-2024 End: 08-03-2024 ambulatory DARÍO DÍAZO Not Available Start: 07-25-2024 End: 07-25-2024 Chart abstracting Scanning Provider External [facility] Start: 07-10-2024 End: 07-10-2024 Subsequent care visit Darío Díazo CNM Work Phone: [facility] Comment on above: Encounter for prenat al care of first , first trimester (Primary Dx) Start: 07-10-2024 End: 07-10-2024 ambulatory DARÍO DÍAZO Not Available Start: 07-10-2024 End: 07-10-2024 Bamboo flowsheet Darío Díazo CNM Work Phone: [facility] Start: 07-10-2024 End: 07-10-2024 Bamboo flowsheet Darío Díazo CNM Work Phone: [facility] Start: 07-03-2024 End: 07-03-2024 ambulatory DARÍO DÍAZO Not Available Start: 06-08-2024 End: 06-08-2024 Office outpatient visit 15 minutes Awilda M Juan Ramon DO Work Phone: [facility] 230 Comment on above: Type 2 diabetes guerrero itus without complication, without long- term current use of insulin ([facility]) Start: 06-08-2024 End: 06-08-2024 ambulatory AWILDA M JUAN RAMON Not Available Start: 05-03-2024 End: 05-03-2024 Telephone encounter Darío Banuelos CNM Work Phone: [facility] Start: 02-28-2024 End: 02-28-2024 ambulatory AWILDA DELATORRE Not Available Start: 07-05-2019 End: 07-06-2019 Patient encounter procedure DARÍOTESHA BANUELOS [facility] Start: 07-05-2019 End: 07-05-2019 Subsequent hospital visit by physician DERRICK Laboratory Procedures Date Procedure Procedure Detail Performing Clinician Start: 01-26-2025 US OB BPP W NON-STRESS Henry Flaco DO Work Phone: Start: 01-19-2025 US OB BPP W NON-STRESS Henry Flaco DO Work Phone: Start: 01-18-2025 Hemoglobin glycosyla carola a1c Awilda Goldsteinbruno DO Work Phone: Start: 01-12-2025 US OB BPP W NON-STRESS Henry Flaco DO Work Phone: Start: 01-12-2025 US OB GROWTH Henry Fazi o DO Work Phone: Start: 01-01-2025 Culture bacterial quanttative colony count urine Darío Banuelos [facility] Work Phone: Start: 12-29-2024 US OB BPP W NON-STRESS Henry Flaco DO Work Phone: Start: 12-25-2024 Urnls dip stick/tabl et rgnt non-auto w/o micrscp Henry Flaco DO Work Phone: Start: 11-08-2024 Ecg routine ecg w/le ast 12 lds w/i&r Tricia Rowland MD Work Phone: Start: 10-09-2024 Hemoglobin glycosyla carola a1c Awilda Guy [employer] DO Work Phone: Start: 09-19-2024 Ecg routine ecg w/le ast 12 lds w/i&r Aye Saucedo MD Work Phone: Start: 08-14-2024 AMB REFERRAL TO [facility] RNA MEDICINE - DIABETES EDUCATION Darío Banuelos [employer] W[employer]SE ASSOCIATE-[facility] Work Phone: Start: 08-14-2024 AMB REFERRAL TO [employer] [facility] MEDICINE - NUTRITION EDUCATION Darío Banuelos RETAIL W[employer]SE ASSOCIATE-[facility] Work Phone: Start: 07-11-2024 CHLAMYDIA/GC BY [...] hin layer prep mnl screen Darío Banuelos [facility] Work Phone: Start: 07-05-2019 Assay of insulin total DARÍO VIN Start: 07-05-2019 Hemoglobin glycosyla carola a1c DARÍO FLORO Start: 07-05-2019 Lipid panel DARÍO FL SHAYNE Start: 07-05-2019 Assay of insulin total Darío Banuelos Work Phone: Start: 07-05-2019 Hemoglobin glycosyla carola a1c Darío Díazo Work Phone: Start: 07-05-2019 Lipid panel Darío Fl shayne Work Phone: Plan of Treatment Date Care Activity Detail Author Start: 11-08-2025 Adult BMI Screening Adult BMI Screen ing [facility] Start: 11-08-2025 Tobacco Screening Tobacco Screening [facility] Start: 09-19-2025 Adult BMI Screening Adult BMI Screen ing [facility] Start: 09-19-2025 Tobacco Screening Tobacco Screening [facility] Start: 09-11-2025 Adult BMI Screening Adult BMI Screen ing [facility] Start: 09-11-2025 Tobacco Screening Tobacco Screening [facility] Start: 08-30-2025 Urine screening for protein Diabetes: Urine Protein Screening [facility] Start: 08-14-2025 Adult BMI Screening Adult BMI Screen ing [facility] Start: 08-14-2025 Tobacco Screening Tobacco Screening [facility] Start: 08-14-2025 End: 08-14-2025 US MFM with or without consult US MFM with or without consult Imaging Routine with type 2 diabetes mellitus in second trimester Expected: 08/14/2025 (Approximate), Expires: 08/14/2025 [employer] Work Phone: Comment on above: Expected: 08/14/2025 (Approximate), Expires: 08/14/2025 Start: 04-20-2025 Hemoglobin A1c measurement Diabetes: Hemoglobin A1C [facility] Start: 04-17-2025 End: 04-17-2025 Patient encounter procedure 04/17/2025 10:30 AM EDT Office Visit [facility] [address] [place] [address] Petznick, Awilda M, DO [address] [place] [address] [facility] Start: 04-16-2025 Influenza vaccination Influenz a Vaccine (Season Ended) [facility] Start: 02-15-2025 End: 02-15-2025 Professional / ancillary services management 02/15/2025 4:00 PM EDT Ancillary Procedure [facility] [address] [facility] [address] [place] [address] [facility] Start: 02-13-2025 End: 02-13-2025 Patient encounter procedure 02/13/2025 4:00 PM EDT Routine [facility] [address] [facility] [place] [address] Darío Banuelos, CNM [address] [place] [address] [facility] Start: 02-12-2025 End: 02-12-2025 Patient encounter procedure 02/12/2025 4:30 PM EDT Routine [facility] [address] [facility] [place] [address] Darío Banuelos, CNM [address] [place] [address] [facility] Start: 02-09-2025 End: 02-09-2025 Professional / ancillary services management 02/09/2025 4:00 PM EDT Ancillary Procedure [facility] [address] [facility] [address] [place] [address] [facility] Start: 02-06-2025 End: 02-06-2025 Patient encounter procedure [facility] Start: 02-02-2025 End: 02-02-2025 Professional / ancillary services management 02/02/2025 4:00 PM EDT Ancillary Procedure [facility] [address] [facility] [address] [place] [address] [facility] Start: 01-30-2025 End: 01-30-2025 Patient encounter procedure 01/30/2025 4:00 PM EDT Routine [facility] [address] [facility] [place] [address] Darío Banuelos, CNM [address] [place] [address] [facility] Start: 01-29-2025 End: 01-29-2025 Patient encounter procedure [facility] Comment on above: Arrived Start: 01-26-2025 End: 01-26-2025 Professional / ancillary services management 01/26/2025 4:00 PM EDT Ancillary Procedure [facility] [address] [place] [address] [facility] Start: 01-23-2025 End: 01-23-2025 Patient encounter procedure 01/23/2025 4:00 PM EDT Routine [facility] [address] [facility] [place] [address] Darío Banuelos, [facility] [address] [place] [address] [facility] Start: 01-22-2025 End: 01-22-2025 Patient encounter procedure 01/22/2025 4:30 PM EDT Routine [facility] [address] [facility] [place] [address] Darío Banuelos, M [address] [place] [address] [facility] Start: 01-22-2025 End: 01-22-2026 STREPTOCCOUS, GROUP B CULTURE STREPTOCCOUS, GROUP B CULTURE Lab Routine screening for streptococcus B Expected: 01/22/2025 (Approximate), Expires: 01/22/2026 [facility] Work Phone: Comment on above: Expected: 01/22/2025 (Approximate), Expires: 01/22/2026 Start: 01-19-2025 End: 01-19-2025 Professional / ancillary services management 01/19/2025 9:15 AM EDT Ancillary Procedure [facility] [address] [facility] [address] [place] [address] [facility] Start: 01-18-2025 End: 01-18-2025 Patient encounter procedure [facility] 230 Comment on above: with type 2 diabetes mellitus in third trimester Start: 01-16-2025 End: 01-16-2025 Patient encounter procedure 01/16/2025 4:00 PM EDT Routine [facility] [address] [facility] [place] [address] Darío Banuelos, CNM [address] [place] [address] [facility] Start: 01-15-2025 End: 01-15-2025 Patient encounter procedure [facility] Comment on above: Arrived Start: 01-12-2025 End: 01-12-2025 Professional / ancillary services management 01/12/2025 4:00 PM EDT Ancillary Procedure [facility] [address] [facility] [address] [place] [address] [facility] Start: 01-09-2025 End: 01-09-2025 Patient encounter procedure 01/09/2025 4:00 PM EDT Routine [facility] [address] [facility] [place] [address] Darío Banuelos, CNM [address] [place] [address] [facility] Start: 01-06-2025 Hemoglobin A1c measurement Diabetes: Hemoglobin A1C [facility] Start: 01-05-2025 End: 01-05-2025 Professional / ancillary services management 01/05/2025 9:15 AM EDT Ancillary Procedure [facility] [address] [facility] [address] [place] [address] [facility] Start: 01-03-2025 Urine screening for protein Diabetes: Urine Protein Screening [facility] Start: 01-02-2025 End: 01-02-2025 Patient encounter procedure 01/02/2025 4:00 PM EDT Routine [facility] [address] [facility] [place] [address] Darío Banuelos, CNM [address] [place] [address] [facility] Start: 01-01-2025 End: 01-01-2025 Patient encounter procedure 01/01/2025 4:30 PM EDT Routine [facility] [address] [facility] [place] [address] Darío Banuelos, CNM [address] [place] [address] [facility] Start: 12-29-2024 End: 12-29-2024 Professional / ancillary services management 12/29/2024 4:00 PM EDT Ancillary Procedure [facility] [address] [place] [address] [facility] Start: 12-26-2024 End: 12-26-2024 Patient encounter procedure 12/26/2024 4:00 PM EDT Routine [facility] [address] [facility] [place] [address] Darío Banuelos, CNM [address] [place] [address] [facility] Start: 12-26-2024 End: 12-26-2025 [...] Ancillary Procedure [facility] [address] [place] [address] [facility] Start: 12-11-2024 [...] [address] [place] [address] Awilda Delatorre DO [address] [place] [address] [facility] 230 Start: 11-15-2024 End: 11-15-2024 Patient encounter procedure 11/15/2024 4:30 PM EDT Routine [facility] [address] [place] [address] Darío Banuelos CNM [address] [facility] [place] [address] Arrived [facility] Comment on above: [...] [facility] [address] [place] [address] Aye Saucedo MD [address] [place] [address] Tricia Rowland MD [address] [place] [address] [facility] Start: 10-31-2024 End: 10-31-2024 Patient encounter procedure 10/31/2024 8:00 AM EDT Appointment [facility] Ultrasound [address] [place] [address] [facility] Start: 10-18-2024 End: 10-18-2024 Patient encounter procedure [facility] Comment on above: Arrived Start: 10-10-2024 Hemoglobin A1c measurement Diabetes: Hemoglobin A1C [facility] Start: 10-10-2024 End: 10-10-2024 Telemedicine consultation with patient 10/10/2024 11:30 AM EST Telemedicine Maternal- Medicine at [facility] [address] [place] [address] Clarke Modi MD [address] [place] [address] [facility] at [facility] Start: 10-09-2024 End: 10-09-2024 Patient encounter procedure 10/09/2024 3:45 PM EST Office Visit [facility] [address] [place] [address] Awilda Delatorre DO [address] [place] [address] [facility] 230 Start: 10-03-2024 End: 10-03-2024 Patient encounter procedure 10/03/2024 10:00 AM EST Appointment [facility] [address] [place] [address] [facility] Start: 09-28-2024 End: 09-28-2024 Patient encounter procedure [facility] Comment on above: Arrived Start: 09-25-2024 End: 09-25-2024 Patient encounter procedure 09/25/2024 8:30 AM EST Appointment [facility] [address] [facility] [place] [phone] [facility] Start: 09-19-2024 End: 09-19-2024 Patient encounter procedure 09/19/2024 8:15 AM EST Office Visit [facility] [address] [facility] [address] [place] [address] Jacque Schneider MD [address] [place] [address] [facility] Start: 09-11-2024 End: 09-11-2024 Patient encounter procedure 09/11/2024 8:00 AM EST Office Visit [facility] at [facility] [address] [place] [address] Clarke Modi MD [address], [address] [place] [address] [facility] Start: 09-08-2024 Hemoglobin A1c measurement Diabetes: Hemoglobin A1C [facility] Start: 08-30-2024 End: 08-30-2024 Patient encounter procedure 08/30/2024 4:30 PM EST Office Visit [facility] [address] [place] [address] Darío Banuelos CN [address] [place] [address] [facility] Start: 08-23-2024 End: 08-23-2024 Telemedicine consultation with patient 08/23/2024 2:00 PM EST Telemedicine [facility]- [facility] at [facility] [address] [place] [address] Ariella Roberto, RETAIL WAREHOUSE ASSOCIATE-INTERLIBRARY LOAN SPECIALIST [address] [facility] [place] [address] [facility] at [facility] Start: 08-14-2024 End: 11-12-2024 Protein creat ratio Protein creat ratio Lab Routine with type 2 diabetes mellitus in second trimester Expected: 08/14/2024 (Approximate), Expires: 11/12/2024 [facility] Comment on above: Expected: 08/14/2024 (Approximate), Expires: 11/12/2024 Start: 08-14-2024 End: 08-14-2024 Patient encounter procedure 08/14/2024 11:00 AM EST Office Visit [facility] at [facility] [address] [facility] [place] [address] Svetlana Jack PA-C [address] [place] [address] [facility] at [facility] Start: 08-14-2024 End: 08-14-2024 ambulatory 08/14/2024 8:30 AM EST Support Visit [facility]- Medicine at [facility] [address] [place] [address] Shauna Denny RN [address], [address] [place] [address], [place] [address] Maribell Amin, RD [address], [address] [place] [address], [place] [address] [facility] at [facility] Start: 08-03-2024 End: 08-03-2024 Patient encounter procedure 08/03/2024 8:30 AM EST Routine [facility] [address] [place] [address] Darío Banuelos CNM [address] [place] [address] Arrived [facility] Comment on above: Arrived Start: 07-10-2024 End: 07-10-2024 Patient encounter procedure 07/10/2024 3:45 PM EST Routine [facility] [address] [place] [address] Darío Banuelos CNM [address] [place] [address] Arrived [facility] Comment on above: Arrived Start: 05-30-2024 Hemoglobin A1c measurement Diabetes: Hemoglobin A1C [facility] Start: 05-30-2024 End: 05-30-2024 Patient encounter procedure 05/30/2024 8:45 AM EDT Office Visit [facility] [address] [place] [address] Awilda Delatorre, [address] [place] [address] [facility] FM 230 Start: 04-16-2024 Influenza vaccination N [facility] Start: 09-06-2019 DTaP,Tdap and Td Vaccines (8 - Td or Tdap) DTaP,Tdap and Td Vaccines (8 - Td or Tdap) [facility] Start: 04-16-2019 Influenza vaccination Flu vaccine (# 1) [place], [place] Start: 2016 Cervical cancer screen Cervical canc er screen [place], [place] Start: 2016 Screening for malign ant neoplasm of cervix Pap Smear [facility] Start: 2014 DTaP,Tdap and Td Vaccines (1 - Tdap) DTaP,Tdap and Td Vaccines (1 - Tdap) [facility] Start: 2014 Urine screening for protein Diabetes: Urine Protein Screening [facility] Start: 2013 Adult BMI Follow Up Plan Adult BMI Follow Up Plan [facility] Start: 2013 Adult BMI Screening Adult BMI Screen ing [facility] Start: 2013 Diabetic foot examination Diabetic Foot Exam [facility] Start: 2011 Chlamydia screen Chlamydia screen [place], [place] Start: 2010 HIV screen HIV screen [place], [place] Start: 2007 Depression Screening Depression Scre ening [facility] Start: 2007 Tobacco Screening Tobacco Screening [facility] Start: 2006 DTaP/Tdap/Td vaccine (1 - Tdap) DTaP/Tdap/Td vaccine (1 - Tdap) [place], [place] Start: 2006 HPV vaccine (1 - Fem tarun 2-dose series) HPV vaccine (1 - Female 2-dose series) [place] Start: 2005 Glaucoma screening Diabetes: R etinopathy Screening [facility] Start: 1996 Varicella Vaccine (1 of 2 - 2-dose childhood series) Varicella Vaccine (1 of 2 - 2-dose childhood series) [place], [place] Start: 1995 Glaucoma screening Diabetic Op hthalmology Exam [facility] Start: 1995 Urine screening for protein Urine Microalbumin [facility] End: 08-14-2025 Comprehensive metabolic 2000 panel - Serum or Plasma Comprehensive metabolic panel Lab Routine with type 2 diabetes mellitus in second trimester 1 Occurrences starting 08/14/2024 until 08/14/2025 [facility] Work Phone: Comment on above: 1 Occurrences starti ng 08/14/2024 until 08/14/2025 End: 08-14-2025 ECG 12 lead ECG 12 lead ECG Routine with type 2 diabetes mellitus in second trimester Long Q-T syndrome 1 Occurrences starting 08/14/2024 until 08/14/2025 [facility] Comment on above: 1 Occurrences starti ng 08/14/2024 until 08/14/2025 End: 08-14-2025 Thyroid profile includes TSH FT4 Thyroid profile includes TSH FT4 Lab Routine with type 2 diabetes mellitus in second trimester 1 Occurrences starting 08/14/2024 until 08/14/2025 [facility] Comment on above: 1 Occurrences starti ng 08/14/2024 until 08/14/2025 Immunizations Immunization Date Immunization Notes Care Provider Marilee hicks 09-06-2009 tetanus toxoid, redu keron diphtheria toxoid, and acellular pertussis vaccine, adsorbed Darío Floro [facility] Work Phone: [facility] 08-25-2007 meningococcal polysaccharide (groups A, C, Y and W-135) diphtheria toxoid conjugate vaccine (MCV4P) Darío [facility] Work Phone: [facility] 08-25-2007 tetanus toxoid, redu keron diphtheria toxoid, and acellular pertussis vaccine, adsorbed [facility] Work Phone: [facility] 08-25-2007 varicella virus vaccine Madeline [facility] Work Phone: [facility] 09-06-2000 diphtheria, tetanus toxoids and acellular pertussis vaccine, unspecified formulation Darío Floro CN Work Phone: [facility] 09-06-2000 measles, mumps and r ubella virus vaccine Darío Floro CN Work Phone: [facility] 09-06-2000 poliovirus vaccine, unspecified formulation Darío Floro CNM Work Phone: [facility] 12-24-1996 varicella virus vaccine Madeline gabbie Sheebao CN Work Phone: [facility] 10-12-1996 diphtheria, tetanus toxoids and acellular pertussis vaccine, unspecified formulation Darío Floro CNM Work Phone: [facility] 10-12-1996 haemophilus influenz ae type b vaccine, conjugate unspecified formulation Darío Floro CN Work Phone: [facility] 10-12-1996 measles, mumps and r ubella virus vaccine Darío Floro CN Work Phone: [facility] 02-25-1996 diphtheria, tetanus toxoids and acellular pertussis vaccine, unspecified formulation Darío Floro CN Work Phone: [facility] 02-25-1996 haemophilus influenz ae type b vaccine, conjugate unspecified formulation Darío Floro CN Work Phone: [facility] 02-25-1996 hepatitis B vaccine, pediatric or pediatric/adolescent dosage Darío Floro CN Work Phone: [facility] 02-25-1996 poliovirus vaccine, unspecified formulation Darío Floro CN Work Phone: [facility] 1995 diphtheria, tetanus toxoids and acellular pertussis vaccine, unspecified formulation Darío Floro CNM Work Phone: [facility] 1995 haemophilus influenz ae type b vaccine, conjugate unspecified formulation Darío Floro CNM Work Phone: [facility] 1995 poliovirus vaccine, unspecified formulation Darío Floro CNM Work Phone: [facility] 1995 diphtheria, tetanus toxoids and acellular pertussis vaccine, unspecified formulation Darío Floro CN Work Phone: [facility] 1995 haemophilus influenz ae type b vaccine, conjugate unspecified formulation Darío Floro CN Work Phone: [facility] 1995 hepatitis B vaccine, pediatric or pediatric/adolescent dosage Darío Floro CN Work Phone: [facility] 1995 poliovirus vaccine, unspecified formulation Darío Floro CN Work Phone: [facility] 1995 hepatitis B vaccine, pediatric or pediatric/adolescent dosage Darío Floro CN Work Phone: [facility] Healthcare Payers Date Payer Category Payer Unknown BCBS BCBS OUT OF STATE xxxxxxxxxxxx 2019-Present [address] [place] [address] xxxxxxxxxxxx [id number] 2019 [facility] BCBS [id number] 2019 [employer] - Other [id number] 2019 Unknown [id number] 2016 Unknown [id number] 1.13.693.2. [id number] 1995 Unknown [id number] 2.16.840.1.814648.3.579.2. 173 1995 Unknown [id number] 2.16.840.1.971652.3.579.2. 1286 1995 Unknown [id number] 2.16.840.1.051077.3.579.2. 1286 1995 Unknown [id number] 2.16.840.1.924468.3.579.2. 1286 1995 Unknown [id number] 2.16.840.1.331784.3.579.2. 1286 1995 Unknown [id number] 2.16.840.1.396673.3.579.2. 1286 1995 Unknown [id number] 2.16.840.1.173114.3.579.2. 1286 1995 Unknown [id number] 2.16.840.1.913873.3.579.2. 1286 1995 Unknown [id number] 2.16.840.1.721650.3.579.2. 1286 1995 Unknown [id number] 2.16.840.1.658059.3.579.2. 1286 1995 Unknown [id number] 2.16.840.1.858089.3.579.2. 1286 1995 Unknown [id number] 2.16.840.1.644740.3.579.2. 1286 1995 Unknown [id number] 2.16.840.1.706360.3.579.2. 1259 1995 Unknown [id number] 2.16.840.1.360616.3.579.2. 1259 1995 Unknown [id number] 2.16.840.1.564786.3.579.2. 1259 1995 Unknown [id number] 2.16.840.1.167128.3.579.2. 1259 1996 Unknown [id number] 2.16.840.1.184680.3.579.2. 1258 1995 Unknown [id number] 2.16.840.1.185785.3.579.2. 1258 1995 Unknown [id number] 2.16.840.1.602669.3.579.2. 1258 1995 Unknown [id number] 2.16.840.1.680766.3.579.2. 1258 1995 Unknown [id number] 2.16.840.1.721308.3.579.2. 1258 1995 Unknown [id number] 2.16.840.1.742008.3.579.2. 1258 1995 Unknown [id number] 2.16.840.1.888883.3.579.2. 1258 1995 Unknown [id number] 2.16.840.1.619917.3.579.2. 1258 1995 Unknown [id number] 2.16.840.1.306010.3.579.2. 1258 1995 Unknown [id number] 2.16.840.1.963590.3.579.2. 1258 1995 Unknown [id number] 2.16.840.1.244468.3.579.2. 1258 1995 Unknown [id number] 2.16.840.1.958202.3.579.2. 1258 1995 Unknown [id number] 2.16.840.1.089226.3.579.2. 1258 1995 Unknown [id number] 2.16.840.1.558582.3.579.2. 1258 1995 Unknown [id number] 2.16.840.1.724059.3.579.2. 1258 1995 Unknown [id number] 2.16.840.1.533502.3.579.2. 1259 Social History Date Type Detail Facility Tobacco smoking stat us NHIS Unknown if ever smoked [employer] Start: 1995 Sex Assigned At Not on file [employer] [facility] Start: 02-10-2023 End: 07-25-2024 Tobacco smoking status NHIS Never smoked tobacco [facility] Start: 02-10-2023 End: 07-25-2024 Tobacco use and exposure Smokeless tobacco non-user [facility] Start: 06-08-2024 End: 01-18-2025 Alcoholic beverage intake Current drinker of alcohol [...] to any clubs or organizations such as voodoo groups, unions, fraternal [...] Gender identity Identifies as female gender (finding) [facility] Start: 05-16-2024 [facility] Start: 08-14-2024 End: 11-09-2024 Alcoholic beverage intake [facility] (finding[facility] Start: 03-19-2015 End: 07-25-2024 Sex Female (finding) [facility] Medical Equipment Procedure Code Equipment Code Equipment Origin al Text Equipment Identifier Dates [id number] Start: 11-29-2023 End: 11-28-2024 Check urine for ketones if blood sugar/glucose 200 or above daily as needed. Use as directed. [id number] Start: 08-14-2024 USE DIRECTED FIVE TIMES DAILY [id number] Start: 10-03-2024 Functional Status Date Assessment Result Facility 01-18-2025 Patient Health Quest ionnaire 2 item (PHQ-2) [Reported] [facility] 12-07-2024 Patient Health Quest ionnaire 2 item (PHQ-2) [Reported] [facility] 10-09-2024 Patient Health Quest ionnaire 2 item (PHQ-2) [Reported] [facility] Clinical Notes 05-03-2024 to 01-29-2025 Darío Banuelos [facility] - 01/29/2025 4:30 PM EDTCATHIE Peralta - 01/22/2025 4:30 PM Sal Delatorre, - 01/18/2025 10:17 AM Sal Delatorre, - 01/18/2025 8:30 AM EDT Note Date & Type Note Facility 01-29-2025 History of Presen t illness Narrative Subjective No chief complaint on file. Reginald Reyes is a 29 y.o. at 37w0d [...] 2 diabetes mellitus in third trimester ([facility]) Type 2 diabetes mellitus treated with insulin ([facility]) Encounter for care of first , third trimester ([facility]) Continue vitamin. Labs reviewed. GBS negative Expected mode of delivery Follow up in 1 week for a routine visit. documented in this encounter [facility] 01-22-2025 History of Presen t illness Narrative Subjective No chief complaint on file. Reginald eRyes is a 29 y.o. at 36w0d with [...] Type 2 diabetes mellitus treated with insulin ([facility]) Glucose log reviewed, patient states Dr Crowley adjusted her insulin as her glucose levels were going low. Med list is current in [facility]. Continue vitamin. Labs reviewed. GBS taken. Expected mode of delivery vaginal Follow up in 1 week for a routine visit. documented in this encounter [facility] 01-18-2025 History of Presen t illness Narrative [...] in the evening (1000 MG TABS) Labs [facility] [place] A1C/HEMOGLOBIN.TOTAL:MFR:PT:BLD: QN: 6.1 Outpatient prescription Medication marked as long-term Patient taking a medication differently The ASCVD Risk score (Clatonia DK, et al., 2019) failed to calculate [...] mouth in the morning. CONTINUOUS GLUCOSE SENSOR (etaskr G7 SENSOR) [facility] USE DIRECTED to test BLOOD SUGAR change [...] the patient today. documented in this encounter [facility] 01-15-2025 History of Presen t illness Narrative [...] a routine visit. documented in this encounter [facility] 01-09-2025 History of Presen t illness Narrative [...] a routine visit. documented in this encounter [facility] 01-01-2025 History of Presen t illness Narrative [...] little bit. Patient states her testing at [facility] was normal on Wednesday, she has had [...] a routine visit. documented in this encounter [facility] 12-26-2024 History of Presen [...] will do all nst's and bpp's at [place] per Dr Sam Objective Physical Exam Weight: [...] a routine visit. documented in this encounter [facility] 12-25-2024 History of Presen [...] nursing note reviewed. Exam conducted with a snap shearer present. Vitals: Estimated body mass index is [...] presents today for referral from [facility] due to Type 2 Diabetes and . Patient is setup for NST/BPP Bi-Weekly/Weekly at [facility]'s office. Patient voiced that she was seen at [facility] for anatomy Scan. Advised patient that it is preferred to have NST/BPP at [facility] for co-management in . Patient is agreeable with having location changed. Order will be given to patient today to have setup at [facility]. Discussed delivery with patient and if sugars are controlled well with insulin then she will be able to delivery at 39 weeks gestation, but if sugars are not well controlled then delivery would be recommended at 38 weeks to prevent issues with placenta. Patient is currently taking Aspirin 81mg daily. FHT 145, patient to continue care with [facility] and reach out to office with any concerns. Documented by Estelle Hughes LPN on behalf of: Henry Sam DO documented in this encounter [facility] 12-11-2024 History of Presen [...] during . Managed by Awilda Crowley in [place]. Did see [facility] Objective Physical Exam Expected Total Weight Gain: [...] a routine visit. documented in this encounter [facility] 12-07-2024 History of Presen [...] in the evening (1000 MG TABS) Labs [facility] [place]EMO[place] A1C/HEMOGLOBIN.TOTAL:MFR:PT:BLD: QN: 5.7 Outpatient prescription [...] the patient today. documented in this encounter [facility] 11-15-2024 History of Presen [...] a routine visit. documented in this encounter [facility] 11-08-2024 History of Presen t illness Narrative Reginald Reyes Date of visit: 11/08/2024 Date of : 1995 Age: 29 y.o. Patient Active Problem List Diagnosis Abnormal glucose Insulin resistance Mixed hyperlipidemia PCOS (polycystic ovarian syndrome) Type 2 diabetes mellitus without complication ([facility]) Pre-existing type 2 diabetes mellitus during in [...] by mouth in the morning. blood-glucose sensor ([employer] G7 SENSOR) device Use to monitor blood [...] Chief Complaint Patient presents with New Patient INOCULATOR - ref by [facility] for long QT [...] milliseconds. She followed up with a pediatric sports medicine specialist but no intervention was performed since the [...] Past Medical History: Diagnosis Date Diabetes mellitus ([facility]) Hyperlipidemia Insulin resistance Long Q-T syndrome Prolonged [...] Resource Strain: Low Risk (06/07/2024) Received from [facility] Overall Financial Resource Strain (CARDIA) Difficulty of Paying Living Expenses: Not hard at all Food Insecurity: No Food Insecurity (11/08/2024) Hunger Screening Food Insecurity - Worry: Never True Food Insecurity - Inability: Never True Transportation Needs: No Transportation Needs (06/07/2024) Received from [facility] PRAPARE - Transportation Lack of Transportation (Medical): No Lack of Transportation (Non-Medical): No Physical Activity: Sufficiently Active (06/07/2024) Received from [facility] Exercise Vital Sign Days of Exercise per Week: 5 days Minutes of Exercise per Session: 30 min Stress: No Stress Concern Present (06/07/2024) Received from [facility] [place] of Occupational Health - Occupational Stress Questionnaire Feeling of Stress : Not at all Social Connections: Socially Integrated (06/07/2024) Received from [facility] Social Connection and Isolation Panel [NHANES] Frequency of Communication with Friends and Family: More than three times a week Frequency of Social Gatherings with Friends and Family: Three times a week Attends Rastafari Services: More than 4 times per year Active Member of Clubs or Organizations: Yes Attends Club or Organization Meetings: More than 4 times per year Marital Status: Interpersonal Safety: Not At Risk (04/09/2023) Received from [facility], [facility] Humiliation, Afraid, Rape, and Kick questionnaire Fear of Current or Ex-Partner: No Emotionally Abused: No Physically Abused: No Sexually Abused: No Housing Instability: Low Risk (06/07/2024) Received from [facility] Housing Stability Vital Sign [...] medications. IMPRESSIONS/PLAN 1. Long Q-T syndrome - [facility] - [place], [place] - [facility] EKG 2. Hx of prolonged [...] Physician: Aye Saucedo MD [address] [place] [address] documented in this encounter [facility] 11-07-2024 Miscellaneous Notes [employer] MESSAGE REMINDER SENT TO PT TO REMIND OF PPC APPT. documented in this encounter [facility] 11-07-2024 Telephone encounter Note [employer] MESSAGE REMINDER SENT TO PT TO REMIND OF PPC APPT. [facility] 10-18-2024 History of Presen t illness [...] coma, without long-term current use of insulin ([facility]) Encounter for care of first , second trimester ([facility]) Continue vitamin. Labs reviewed. Rhogam GTT not doing due to already being type 2 diabetic Follow up in 4 weeks for a routine visit. documented in this encounter [facility] 10-10-2024 History of Presen t illness Narrative REASON FOR TELEMEDICINE VIDEO OFFICE VISIT: Suspected Maternal prolonged QT ruled out. HISTORY OF PRESENT ILLNESS: Reginadl Reyes is a pleasant 29 y.o. G 1 P0 at 21w1d due on Estimated Date of Delivery: 02/19/25 . has been complicated with Pre gestational type 2 diabetes on insulin. Patient diabetes is managed by her air/ocean export clerk and not by [facility]. Patient is comfortable with her air/ocean export clerk. Blood glucose are adequately controlled. Suspected prolonged QT syndrome. Patient was told as a child so she might a borderline prolonged QT syndrome. No intervention was done. Patient then was lost for follow-up and has not seen dispatch supervisor for more than 10 years. Therefore the [...] syndrome) Type 2 diabetes mellitus without complication ([facility]) Long Q-T syndrome Pre-existing type 2 diabetes [...] Past Medical History: Diagnosis Date Diabetes mellitus ([facility]) Hyperlipidemia Insulin resistance Long Q-T [...] completion of targeted anatomy and echocardiography at [facility]. 2. Serial growth ultrasounds every 4 weeks after 24 weeks gestation at her OB office. 3. No evidence of prolonged QT on baseline EKG and after meeting with cardiology. 4. InCase electrophysiology also rules out prolonged QT patient should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 (unrecognized sec tion and content) Tobacco Prevention Health Educator Relationship Specialty Start Date End Date Unallocated, Noms Provider, [place] [address] PCP - General 04/16/23 Awilda Delatorre DO [address] [facility] [address] [place] [address] PCP - Del [employer] Commercial 06/16/23 Darío Banuelos CNM [address], [place] [id number] Obstetrics and Gynecology 02/10/23 Tobacco Prevention Health Educator Relationship Specialty Start Date End Date Unallocated, Francisco Javiers [place] [address] PCP - General 04/16/23 Awilda Delatorre DO [address] [place] [address] PCP - [employer] 06/16/23 Darío Banuelos CNM [address] [place] [address] Obstetrics and Gynecology 02/10/23 Tobacco Prevention Health Educator Relationship Specialty Start Date End Date Unallocated, Noms ProviderMD [address] [place] [address] PCP - General 04/16/23 Awilda Dealtorre, DO [address] [place] [address] PCP - [employer] 06/16/23 Darío Banuelos CN [address] [facility] [place] [address] Obstetrics and Gynecology 02/10/23 Tobacco Prevention Health Educator Relationship Specialty Start Date End Date Unallocated, Francisco Javiers ProviderMD [address] [facility] [place] [address] PCP - General 04/16/23 Awilda Delatorre, DO [address] [place] [address] PCP - [employer] 06/16/23 Darío Banuelos CNM [address] [place] [address] Obstetrics and Gynecology 02/10/23 Tobacco Prevention Health Educator Relationship Specialty Start Date End Date Darío Banuelos APRN-SADIA [address] [place] [address] PCP - General Nurse Filer Helper 04/15/18 Tobacco Prevention Health Educator Relationship Specialty Start Date End Date Darío Banuelos APRN-CN [address] [place] [address] PCP - General Nurse Filer Helper 04/15/18 Tobacco Prevention Health Educator Relationship Specialty Start Date End Date Darío Banuelos APRN-CATHIE [address] [place] [address] PCP - General Nurse Filer Helper 04/15/18 Tobacco Prevention Health Educator Relationship Specialty Start Date End Date [facility] [address] [place] [address] PCP - General Nurse Filer Helper 04/15/18 Tobacco Prevention Health Educator Relationship Specialty Start Date End Date [facility] [address] [place] [address] PCP - General Nurse Filer Helper 04/15/18 Tobacco Prevention Health Educator Relationship Specialty Start Date End Date Unallocated, Noms Dian, [address] [place] [address] PCP - General 04/16/23 Awilda Delatorre DO [address] [address] PCP - [employer] 06/16/23 Darío Banuelos CNM [address] [place] [address] Obstetrics and Gynecology 02/10/23 Tobacco Prevention Health Educator Relationship Specialty Start Date End Date Darío Banuelos APRN-[facility] [address] [place] [address] PCP - General Nurse Filer Helper 04/15/18 Tobacco Prevention Health Educator Relationship Specialty Start Date End Date Darío BanuelosBAMBI-[facility] [address] [place] [address] PCP - General Nurse Filer Helper 04/15/18 Tobacco Prevention Health Educator Relationship Specialty Start Date End Date [facility] [address] [place] [address] PCP - General Nurse Filer Helper 04/15/18 Tobacco Prevention Health Educator Relationship Specialty Start Date End Date [facility] [address] [place] [address] PCP - General Nurse Filer Helper 04/15/18 Tobacco Prevention Health Educator Relationship Specialty Start Date End Date Unallocated, Francisco Javiers MD Dian [address] [place] [address] PCP - General 04/16/23 Awilda Delatorre, DO [address] [place] [address] PCP - Del [employer] Commercial 06/16/23 Darío Banuelos CN [address] [place] [address] Obstetrics and Gynecology 02/10/23 Tobacco Prevention Health Educator Relationship Specialty Start Date End Date Unallocated, Danay Biggs MD [address] [place] [address] PCP - General 04/16/23 Awlida Delatorre, DO [address] [place] [address] PCP - [employer] 06/16/23 Darío Banuelos CNM [address] [place] [address] Obstetrics and Gynecology 02/10/23 Tobacco Prevention Health Educator Relationship Specialty Start Date End Date Unallocated, Noms MD Dian [address] [facility] [place] [address] PCP - General 04/16/23 Awilda Delatorre, DO [address] [place] [address] PCP - [employer] 06/16/23 Darío Banuelos CNM [address] [place] [address] Obstetrics and Gynecology 02/10/23 Tobacco Prevention Health Educator Relationship Specialty Start Date End Date Vin [facility] [address] [place] [address] PCP - General Nurse Filer Helper 04/15/18 Tobacco Prevention Health Educator Relationship Specialty Start Date End Date Vin [facility] [address] [place] [address] PCP - General Nurse Filer Helper 04/15/18 Tobacco Prevention Health Educator Relationship Specialty Start Date End Date Unallocated, Noms ProviderMD [address] [facility] [place] [address] PCP - General 04/16/23 Awilda Delatorre, DO [address] [facility] [address] [place] [address] PCP - Del [employer] 06/16/23 Darío Banuelos CNM [address] [place] [facility] [place] [address] Obstetrics and Gynecology 02/10/23 Tobacco Prevention Health Educator Relationship Specialty Start Date End Date Unallocated, Danay Biggs MD [address] [facility] [place] [address] PCP - General 04/16/23 Awilda Delatorre, DO [address] [place] [address] PCP - [employer] 06/16/23 Darío Banuelos CNM [address] [place] [address] Obstetrics and Gynecology 02/10/23 Tobacco Prevention Health Educator Relationship Specialty Start Date End Date Unallocated, Danay Biggs MD [address] [facility] [place] [address] PCP - General 04/16/23 Awilda Delatorre, DO [address] [place] [address] PCP - Del [employer] 06/16/23 Darío Banuelos CNM [address] [place] [address] Obstetrics and Gynecology 02/10/23 Tobacco Prevention Health Educator Relationship Specialty Start Date End Date Unallocated, Danay Biggs MD [address] [facility] [place] [address] PCP - General 04/16/23 Darío Banuelos CNM [address] [place] [address] Obstetrics and Gynecology 02/10/23 Tobacco Prevention Health Educator Relationship Specialty Start Date End Date Unallocated, Danay Biggs MD [address] [place] [address] PCP - General 04/16/23 Darío Banuelos CNM [address] [place] [address] Obstetrics and Gynecology 02/10/23 Tobacco Prevention Health Educator Relationship Specialty Start Date End Date Unallocated, MD Reynaldo Maki0 [address] COUNT INCLUDES [facility] [place] [address] PCP - General 04/16/23 Darío Banuelos CNM [address] [place] [address] Obstetrics and Gynecology 02/10/23 Tobacco Prevention Health Educator Relationship Specialty Start Date End Date Unallocated, MD [place] [place] [address] PCP - General 04/16/23 Darío Banuelos CNM [address] [place] [address] Obstetrics and Gynecology 02/10/23 Tobacco Prevention Health Educator Relationship Specialty Start Date End Date Unallocated, Danay Biggs MD [address] COUNT INCLUDES [facility] [place] [address] PCP - General 04/16/23 Darío Banuelos CNM [address] [place] [address] Obstetrics and Gynecology 02/10/23 Tobacco Prevention Health Educator Relationship Specialty Start Date End Date Unallocated, MD Reynaldo Maki0 [address] COUNT INCLUDES THE [facility] [place] [address] PCP - General 04/16/23 Darío Banuelos CNM [address] [place] [address] Obstetrics and Gynecology 02/10/23 Tobacco Prevention Health Educator Relationship Specialty Start Date End Date Unallocated, Danay Biggs MD [address] [place] [address] PCP - General 04/16/23 Darío Banuelos CNM [address] [place] [address] Obstetrics and Gynecology 02/10/23 Tobacco Prevention Health Educator Relationship Specialty Start Date End Date Unallocated, Danay Biggs MD [address] [place] [address] PCP - General 04/16/23 Darío Banuelos CNM [address] [place] [address] Obstetrics and Gynecology 02/10/23 Tobacco Prevention Health Educator Relationship Specialty Start Date End Date Unallocated, Danay Biggs MD [address] [place] [address] PCP - General 04/16/23 Awilda Delatorre DO [address] [place] [address] PCP - Del [employer] Commercial 06/16/23 Darío Banuelos CNM [address] [place] [address] Obstetrics and Gynecology 02/10/23 Tobacco Prevention Health Educator Relationship Specialty Start Date End Date Unallocated, MD [place] [address] PCP - General 04/16/23 Awilda Delatorre DO [address] [place] [address] PCP - Del [employer] Commercial 06/16/23 Darío Banuelos CNM [address] [place] [address] Obstetrics and Gynecology 02/10/23 FOR RECORDS PERTAINING [...] BE BASED ON THE PRIMARY CLINICAL RECORDS. [facility]. provides no warranty or guarantee of the accuracy or completeness of information in this document.
[2025-01-30 07:13] VITALS: BP 108/64; PULSE 90
== END 2025-01-30 07:43 | disposition home or self-care (01) ==
LOC: FBCO 07:03 → FBC 07:06
PROVIDERS: Visit Provider Obstetrics & Gynecology
DX: O24.313 Unspecified pre-existing diabetes mellitus in pregnancy, third trimester (principal)
CPT/HCPCS: 59025

== ENCOUNTER 2025-02-02 06:58 | Outpatient (OUT) | payer BC, SELFPAY ==
--- NOTE | 2025-02-02 07:02 | US_ITS ---
[facility] [place] [address] Patient Name: REGINALD SMALL MRN: [id number] date: 1995 Sex: F Assigned Patient Location: [facility] Current Patient Location: Accession/Order Number: [id number] Exam Date: 02/02/2025 08:16 Report Date: 02/02/2025 08:17 At the request of: NICK BOWEN DO Procedure: US OB BPP w non-stress BIOPHYSICAL PROFILE: CLINICAL INFORMATION: Type II diabetes mellitus COMPARISON: 01/26/2025 There is a single live intrauterine gestation in cephalic presentation. The reported gestational age is 37 weeks 4 days. The heart rate measures 147 beats per minute. FINDINGS: TONE: 1 or more episodes of activity extension and flexion of extremity or opening and closing of the hand [Y] 2/2 GROSS BODY MOVEMENTS: 3 or more discrete body or limb movements [Y] 2/2 BREATHING MOVEMENTS: 1 or more episodes of breathing lasting at least 30 seconds [Y] 2/2 DL: A single deepest vertical pocket of amniotic fluid greater than 2 cm [Y] 2/2 DL: 15.8 cm. This is in upper normal range Total score: 8/8 US/US OB BPP w non-stress IMPRESSION: NORMAL BIOPHYSICAL PROFILE. Impression dictated by: Elle Mcleod M.D. 02/02/2025 8:17 AM Dictation Location: [place] [address] Electronically authenticated by: [id number] Y Date: 02/02/2025 08:17
--- OUTSIDE RECORDS SUMMARY | 2025-02-02 07:02 | XMS_ITS | CCD ---
Author Organization [facility] Care Team Providers Care Screen Printer Helper Name Role Phone Unavailable Primary Care Provider Unavailabl e FLORO, DARÍO Referring Unavailable Floro CNM, Darío L Unavailable Unallocated , Noms Provider Primary Care Provi mart Awilda Delatorre DO Unavailable Unallocated , Noms Provider Primary Care Provi mart Floro SORTER OPERATOR-CNM, Darío Primary Care Provider SVETLANA JACK Attending [...] Unavailable FLORO, DARÍO Mccoy Referring Unavailable FLACOHENRY James Attending Unavailable FLORO, DARÍO Mccoy Referring Unavailable [...] Active Start: 05-29-2024 End: 09-01-2024 insulin NPH, Isophane, (Jennifer REBEKAH N FlexPen) 100 UNIT/ML injection Indications: Type 2 diabetes mellitus without complication, without long-term current use of insulin (HCC) INJECT 15 UNITS AM 25 UNITS PM 15 mL 3 05/29/2024 09/01/2024 Discontinued Start: 02-28-2024 insulin NPH, I sophane, (NovoLIN N FlexPen) 100 UNIT/ML injection Indications: Type 2 diabetes mellitus without complication, without long-term current use of insulin ([facility]/HCC) 15 units in the am and [...] type 2 diabetes mellitus in second trimester ([facility]) 1-2 units breakfast, 5-12 units lunch/dinner (max [...] US OB BPP W NON-STRESS on 01-26-2025 [place] [address] Ultrasound Report Signed Patient: REGINALD REYES MR#: [id number] : 1995 Acct:[id number] Age/Sex: 29 / F ADM Date: 01/26/25 Loc: US Attending Dr: Henry Sam D.O. Ordering Physician: Henry Sam D.O. Date of Service: 01/26/25 Procedure(s): US OB BPP w non-stress Accession Number(s): [id number] cc: Henry Sam D.O.; Physician,Non-Staff Magaly The [place] [id number] Patient Name: REGINALD REYES MRN: [id number] date: 1995 Sex: F Assigned Patient Location: [facility] Current Patient Location: Accession/Order Number: [id number] Exam Date: 01/26/2025 08:28 Report Date: 01/26/2025 [...] Mcleod M.D. 01/26/2025 8:30 AM Dictation Location: [place] [address] Electronically authenticated by: [id number] Y Date: 01/26/2025 08:30 Dictated By: Elle Mcleod M.D. Signed By: 01/26/25831 DD/ 9 TD/TT: Turret Lathe Set Up Operator: [facility] Radiology, Radiologist, MD - 01/26/2025 [place] [address] Ultrasound Report Signed Patient: REGINALD REYES MR#: [id number] : 1995 Acct:[id number] Age/Sex: 29 / F ADM Date: 01/26/25 Loc: US Attending Dr: Henry Sam D.O. Ordering Physician: Henry Sam D.O. Date of Service: 01/26/25 Procedure(s): US OB BPP w non-stress Accession Number(s): [id number] cc: Henry Sam D.O.; Physician,Non-Staff Magaly The [address] [address] Patient Name: REGINALD REYES MRN: [facility]:[id number] date: 1995 Sex: F Assigned Patient Location: [facility] Current Patient Location: Accession/Order Number: [id number] Exam Date: 01/26/2025 08:28 Report Date: 01/26/2025 [...] Mcleod M.D. 01/26/2025 8:30 AM Dictation Location: [place] [address] Electronically authenticated by: [id number] Y Date: 01/26/2025 08:30 Dictated By: Elle Mcleod M.D. Signed By: 01/26/25831 DD/ 9 TD/TT: Turret Lathe Set Up Operator: [facility] Radiology Study observation (narrative) [facility] US OB BPP W NON-STRESS Ordered By: Radiologist Radiology on 01-26-2025 [facility] Work Phone: US OB BPP W NON-STRESS on 01-19-2025 [place] [address] Ultrasound Report Signed Patient: ERGINALD REYES MR#: [id number] : 1995 Acct:[id number] Age/Sex: 29 / F ADM Date: 01/19/25 Loc: [facility] 250-[address]: Henry Sam D.O. Ordering Physician: Henry Sam D.O. Date of Service: 01/19/25 Procedure(s): US OB BPP w non-stress Accession Number(s): [id number] cc: Henry Sam D.O.; Physician,Non-Staff Magaly The [address] [address] Patient Name: REGINALD REYES MRN: [id number] date: 1995 Sex: F Assigned Patient Location: [facility] Current Patient Location: [facility] Accession/Order Number: [id number] Exam Date: 01/19/2025 07:35 Report Date: 01/19/2025 [...] Roberson M.D. 01/19/2025 7:37 AM Dictation Location: [place] [address] Electronically authenticated by: [id number] Y Date: 01/19/2025 07:37 Dictated By: Zak Roberson M.D. Signed By: 01/19/25 0739 DD/ 0737 TD/TT: Turret Lathe Set Up Operator: [facility] Radiology, Radiologist, MD - 01/19/2025 [place] [address] Ultrasound Report Signed Patient: REGINALD REYES MR#: [id number] : 1995 Acct:[id number] Age/Sex: 29 / F ADM Date: 01/19/25 Loc: [facility] 250-[address]: Henry Sam D.O. Ordering Physician: Henry Sam D.O. Date of Service: 01/19/25 Procedure(s): US OB BPP w non-stress Accession Number(s): [id number] cc: Henry Sam D.O.; Physician,Non-Staff Magaly The [place] [id number] Patient Name: REGINALD REYES MRN: [facility]:[id number] date: 1995 Sex: F Assigned Patient Location: [facility] Current Patient Location: [facility] Accession/Order Number: [id number] Exam Date: 01/19/2025 07:35 Report Date: 01/19/2025 [...] Roberson M.D. 01/19/2025 7:37 AM Dictation Location: [place] [address] Electronically authenticated by: [id number] Y Date: 01/19/2025 07:37 Dictated By: Zak Roberson M.D. Signed By: 01/19/25 0739 DD/ 0737 TD/TT: Turret Lathe Set Up Operator: [facility] Radiology Study observation (narrative) [facility] US OB BPP W NON-STRESS Ordered By: Radiologist Radiology on 01-19-2025 [facility] Work Phone: HbA1c (Bld) [Mass fraction]o n 01-18-2025 Interpretation and review of laboratory results Normal [facility] Laboratory - Hematology and Cell countson 01-18-2025 HbA1c (Bld) [Mass fraction] 6.1 % [facility] No Panel InformationOrdered By: Radiologist Radiology on 01-12-2025 [facility] Work Phone: No Panel Informationon 01-12 Radiology Study observation (narrative) [facility] US OB BPP W NON-STRESS on 01-12-[address] [address] Ultrasound Report Signed Patient: REGINALD REYES MR#: [id number] : 1995 Acct:[id number] Age/Sex: 29 / F ADM Date: 01/12/25 Loc: US Attending Dr: Henry Sam D.O. Ordering Physician: Henry Sam D.O. Date of Service: 01/12/25 Procedure(s): US OB BPP w non-stress Accession Number(s): [id number] cc: Henry Sam D.O.; Physician,Non-Staff Magaly [place] [address] Patient Name: REGINALD REYES MRN: [id number] date: 1995 Sex: F Assigned Patient Location: [facility] Current Patient [place] [facility] Accession/Order Number: [id number] Exam Date: 01/12/2025 11:54 Report Date: 01/12/2025 [...] Mcleod M.D. 01/12/2025 12:00 PM Dictation Location: [place] [address] Electronically authenticated by: [id number] Y Date: 01/12/2025 12:00 Dictated By: Elle Mcleod M.D. Signed By: 01/12/25 1203 DD/ 1200 TD/TT: Turret Lathe Set Up Operator: [facility] Radiology, Radiologist, - 01/12/2025 [place] [address] Ultrasound Report Signed Patient: REGINALD REYES MR#: [id number] : 1995 Acct:[id number] Age/Sex: 29 / F ADM Date: 01/12/25 Loc: US Attending Dr: Henry Sam D.O. Ordering Physician: Henry Sam D.O. Date of Service: 01/12/25 Procedure(s): US OB BPP w non-stress Accession Number(s): [id number] cc: Henry Sam D.O.; Physician,Non-Staff Magaly The [place] [phone] Patient Name: REGINALD REYES MRN: [facility]:[id number] date: 1995 Sex: F Assigned Patient Location: [facility] Current Patient [place]: [facility] Accession/Order Number: [id number] Exam Date: 01/12/2025 11:54 Report Date: 01/12/2025 [...] Mcleod M.D. 01/12/2025 12:00 PM Dictation Location: [place] [address] Electronically authenticated by: [id number] Y Date: 01/12/2025 12:00 Dictated By: Elle Mcleod M.D. Signed By: 01/12/25 1203 DD/ 1200 TD/TT: Turret Lathe Set Up Operator: [facility] OB GROWTHon 01-12-[address] [address] Ultrasound Report Signed Patient: REGINALD REYES MR#: [id number] : 1995 Acct:[id number] Age/Sex: 29 / F ADM Date: 01/12/25 Loc: US Attending Dr: Henry Sam D.O. Ordering Physician: Henry Sam D.O. Date of Service: 01/12/25 Procedure(s): US OB growth Accession Number(s): [id number] cc: Henry Sam D.O.; Physician,Non-Staff Magaly [place] [id number] Patient Name: REGINALD REYES MRN: [facility]:[id number] date: 1995 Sex: F Assigned Patient [place] [facility] Current Patient Location[place] [facility] Accession/Order Number: [id number] Exam Date: 01/12/2025 11:54 Report Date: 01/12/2025 [...] NORMAL BIOPHYSICAL PROFILE. Impression dictated by: Elle Mcledo M.D. 01/12/2025 12:00 PM Dictation Location: [place] [address] Electronically authenticated by: [id number] Y Date: 01/12/2025 12:00 Dictated By: Elle Mcleod M.D. Signed By: 01/12/25 1203 DD/ 1200 TD/TT: Turret Lathe Set Up Operator: [facility] Radiology, Radiologist, MD - 01/12/2025 [place] [address] Ultrasound Report Signed Patient: REGINALD REYES MR#: [id number] : 1995 Acct:[id number] Age/Sex: 29 / F ADM Date: 01/12/25 Loc: US Attending Dr: Henry Sam D.O. Ordering Physician: Henry Sam D.O. Date of Service: 01/12/25 Procedure(s): US OB growth Accession Number(s): [id number] cc: Henry Sam D.O.; Physician,Non-Staff Magaly The [place] [phone] Patient Name: REGINALD REYES MRN: [facility]:[id number] date: 1995 Sex: F Assigned [facility] [place] [facility] [place] Patient Location[place] [facility] Accession/Order Number: [id number] Exam Date: 01/12/2025 11:54 Report Date: 01/12/2025 [...] Mcleod M.D. 01/12/2025 12:00 PM Dictation Location: [place] [address] Electronically authenticated by: [id number] Y Date: 01/12/2025 12:00 Dictated By: Elle Mcleod M.D. Signed By: 01/12/25 1203 DD/ 1200 TD/TT: Turret Lathe Set Up Operator: [facility] Bacteria identified Cx Nom ( U)on 01-04-2025 Appearance (U) Adequate [facility] Internal identifier for Provider [id number] [facility] Specimen source Nom (Unsp spec) URINE [facility] STATUS FINAL [facility] Performing Organization Information Site ID: QPT Name: [facility] Address: [address] [place] [address], [address] [place] [id number] Director: Devendra Aguilar MD [facility] Laboratory - Microbiology an d Antimicrobial susceptibilityon 01-04-2025 Bacteria identified Cx Nom (U) SEE NOTE [facility] Comment on above: Less than 10,000 CFU/mL of single Gram positive organism isolated. No further testing will be performed. If clinically indicated, recollection using a method to minimize contamination, with prompt transfer to Urine Culture Transport Tube, is recommended. US OB BPP W NON-STRESS on 12-29-2024 The [place] [id number] Ultrasound Report Signed Patient: REGINALD REYES MR#: [id number] : 1995 Acct:[id number] Age/Sex: 29 / F ADM Date: 12/29/24 Loc: US Attending Dr: Henry Sam D.O. Ordering Physician: Henry Sam D.O. Date of Service: 12/29/24 Procedure(s): US OB BPP w non-stress Accession Number(s): [id number] cc: Henry Sam D.O.; Physician,Non-Staff Magaly The [place] [phone] Patient Name: REGINALD REYES MRN: [id number] date: 1995 Sex: F Assigned Patient Location: [facility] Current Patient Location: Accession/Order Number: [id number] Exam Date: 12/29/2024 09:34 Report Date: 12/29/2024 [...] Roberson M.D. 12/29/2024 9:36 AM Dictation Location: [employer] Electronically authenticated by: [id number] Y Date: 12/29/2024 09:36 Dictated By: Zak Roberson M.D. Signed By: 12/29/2438 DD/ 5 TD/TT: Turret Lathe Set Up Operator: [facility] Radiology, Radiologist, - 12/29/2024 [place] [address] Ultrasound Report Signed Patient: REGINALD REYES MR#: [id number] : 1995 Acct:[id number] Age/Sex: 29 / F ADM Date: 12/29/24 Loc: US Attending Dr: Henry Sam D.O. Ordering Physician: Henry Sam D.O. Date of Service: 12/29/24 Procedure(s): US OB BPP w non-stress Accession Number(s): [id number] cc: Henry Sam D.O.; Physician,Non-Staff Magaly The [place] [address] Patient Name: REGINALD REYES MRN: [facility]:[id number] date: 1995 Sex: F Assigned Patient Location: [facility] Current Patient Location: Accession/Order Number: [id number] Exam Date: 12/29/2024 09:34 Report Date: 12/29/2024 [...] Roberson M.D. 12/29/2024 9:36 AM Dictation Location: [place] [address] Electronically authenticated by: [id number] Y Date: 12/29/2024 09:36 Dictated By: Zak Roberson M.D. Signed By: 12/29/2438 DD/ 5 TD/TT: Turret Lathe Set Up Operator: [facility] Radiology Study observation (narrative) [facility] US OB BPP W NON-STRESS Ordered By: Radiologist Radiology on 12-29-2024 [facility] Work Phone: Urinalysis macro (dipstick) panel (U)on 12-25-2024 Bilirubin, UA Negative Negative - 4(70) +++ mg/dL [facility] Blood, UA Negative Negative - 50 Skinny/mcL [facility] Clarity, UA Clear [facility] Color, UA Yellow [facility] Glucose, UA Negative Negative - 2000(110) ++++ mg/dL [facility] Interpretation and review of laboratory results Normal [facility] Ketones, UA Negative Negative - 160(16) ++++ mg/dL [facility] Leukocytes, UA Positive Negative - 500+++ Cal/mcL [facility] Comment on above: small Nitrite, UA Negative Negative - Positive [facility] pH, UA 6.5 5 - 9 [facility] Protein, UA Negative Negative - 2000(20) ++++ mg/dL [facility] Spec Grav, UA 1.02 1 - 1.03 [facility] Urobilinogen, UA 1.0 0.2 - 12 mg/dL [facility] US OB FOLLOW UP TRANSABDOMIN AL APPROACHon [...] II, MD, PHD at 12-Dec-2024 07:13:14 PM [facility] Normal Not Available POCT EKGOrdered By: Abby Andino on 11-08-2024 [facility] HbA1c (Bld) [Mass fraction]o n 10-09-2024 Interpretation and review of laboratory results Normal [facility] Laboratory - Hematology and Cell countson 10-09-2024 HbA1c (Bld) [Mass fraction] 5.7 % [facility] POCT EKGon 09-19-2024 [facility] No Panel Informationon 08-14 [facility] Chlamydia/GC by PCR ThinPrep fluidon 07-11-2024 Chlamydia Dna(Pcr) Negative [facility] Gonorrhoeae Dna(Pcr) Negative [facility] Drug Screen, Urineon 024 Amphetamine/Methampheta mine Negative [facility] Opiate Quantitative Urine Negative [facility] HIV 1&2 AB/AG Screen (P24 AG )on 07-10-2024 HIV 1&2 AB/AG Non-Reactive [facility] Hemoglobin A1con 07-10-2024 HbA1c (Bld) [Mass fraction] 6.4 % Abnormal 4.0 - 6.0 % [facility] Interpretation and review of laboratory results Abnormal [facility] No Panel Informationon 07-10 [facility] Type and screenon 07-10-2024 Abo/Rh(D) Positive [facility] US OB < 14 WEEKS EARLYon [...] Interpretation and review of laboratory results Normal [facility] Laboratory - Hematology and Cell countson 06-08-2024 HbA1c (Bld) [Mass fraction] 6.2 % [facility] Cytology Cervical or vaginal smear or scraping studyOrdered By: Christen Nettles on 02-10-2023 [facility] Hemoglobin A1Con 07-05-2019 HbA1c (Bld) [Mass fraction] 5.9 % Normal 4.8-5.9 [facility] Comment on above: Performed By: #### G LYHGB, LIPR #### [facility] [address] [place] [address] [employer] Leak Tester: Ruslan Fernando MD #### INSU #### [facility] [employer] [address] [place] [address] [employer] Leak Tester: Marv Guzman MD [facility] [address] [place] [address] [employer] Leak Tester: Ruslan Fernando MD HbA1c (Bld) [Mass fraction] 123 mg/dL Normal [facility] Comment on above: Result Comment: The ADA and AACC recommend providing the estimated average glucose result to permit better patient understanding of their HBA1c result. Performed By: #### G LYHGB, LIPR #### [address] [place], [place] [address] [employer] Leak Tester: Ruslan Fernando MD #### INSU #### [place] [address] [place] [address] [employer] Leak Tester: Marv Guzman MD [address] [place], [place] [address] [employer] Leak Tester: Ruslan Fernando MD Glucose [Mass/Vol] 123 mg/dL [place], [place] Comment on above: The ADA and AACC rec ommend providing the estimated average glucose result to permit better patient understanding of their HBA1c result. HbA1c (Bld) [Mass fraction] 5.9 % 4.8 - 5.9 % [place], [place] Insulinon 07-05-2019 Insulin 36.2 mU/L Normal [facility] Comment on above: Performed By: #### G LYHGB, LIPR #### [address] [place], [place] [id number] [employer] Leak Tester: Ruslan Fernando MD #### INSU #### [facility] [address] [place] [address] [employer] Leak Tester: Marv Guzman MD [address] [place], [place] [id number] [employer] Leak Tester: Ruslan Fernando MD Reference Range Normal [facility] Comment on above: Result Comment: Fast in.6-24.9 30 min: 20-112 60 min: 29-88 90 min: 26-84 120 min: 22-79 Performed By: #### G LYHGB, LIPR #### [address] [place], [place] [address] [employer] Leak Tester: Ruslan Fernando MD #### INSU #### [facility] [address] [place], [place] [address] [employer] Leak Tester: Marv Guzman MD [place] [address] [place] [address] [employer] Leak Tester: Ruslan Fernando MD Collection Info. 0830 Normal [facility] Comment on above: Performed By: #### G LYHGB, LIPR #### [facility] [address] [place] [address] [employer] Leak Tester: Ruslan Fernando MD #### INSU #### [facility] [address] [place], [place] [id number] [employer] Leak Tester: Marv Guzman MD [facility] [address] [place] [address] [employer] Leak Tester: Ruslan Fernando MD Insulin, totalon 07-05-2019 INR Coag (Bld) [Relative time] [place], [place] Comment on above: Fastin.6-24.9 30 min: 20-112 60 min: 29-88 90 min: 26-84 120 min: 22-79 Insulin 36.2 mU/L [place] Insulin Comment [address] [place], [place] Lipid Panelon 07-05-2019 Cholesterol [Mass/Vol] 204 mg/dL High <200 [place], [place] Comment on above: Cholesterol Guidelines: <200 Desirable 200-240 Borderline >240 Undesirable Cholesterol in HDL [Mass/Vol] 35 mg/dL Low >40 [place] Comment on above: HDL Guidelines: <40 Undesirable 40-59 Borderline >59 Desirable Cholesterol in LDL [Mass/Vol] 102 mg/dL 0 - 130 mg/dL [place] Comment on above: LDL Guidelines: <100 Desirable 100-129 Near to/above Desirable 130-159 Borderline >159 Undesirable Direct (measured) LDL and calculated LDL are not interchangeable tests. Cholesterol in VLDL [Mass/Vol] NOT REPORTED High 1 - 30 mg/dL [place] Cholesterol.total/Perla sterol in HDL [Mass ratio] 5.8 {ratio} High <5 [place] Interpretation and review of laboratory results Abnormal [place] Triglyceride [Mass/Vol] 336 mg/dL High <150 M [place], [place] Comment on above: Triglyceride Guidelines: <150 Desirable 150-199 Borderline 200-499 High >499 Very high Based on AHA Guidelines for fasting triglyceride, May 2012. Lipid Profileon 07-05-2019 Cholesterol [Mass/Vol] 204 mg/dL High <200 [facility] Comment on above: Result Comment: Cholesterol Guidelines: <200 Desirable 200-240 Borderline >240 Undesirable Performed By: #### G LYHGB, LIPR #### [facility] [address] [place] [address] [place] [place], [place] [phone] [employer] T[employer]: Ruslan Fernando MD #### INSU #### [facility] [address] [place], [place] [phone] [employer] Leak Tester: Marv Guzman MD [address] [place], [place] [address] [employer] Leak Tester: Ruslan Fernando MD Cholesterol in HDL [Mass/Vol] 35 mg/dL Low >40 [facility] Comment on above: Result Comment: HDL Guidelines: <40 Undesirable 40-59 Borderline >59 Desirable Performed By: #### G LYHGB, LIPR #### [address] [place], [place] [address] [employer] Leak Tester: Ruslan Fernando MD #### INSU #### [facility] [address] [place] [address] [employer] Leak Tester: Marv Guzman MD [address] [place] [address] [employer] Leak Tester: Rusaln Fernando MD Cholesterol in LDL [Mass/Vol] 102 mg/dL Normal 0-130 [facility] Comment on above: Result Comment: LDL Guidelines: <100 Desirable 100-129 Near to/above Desirable 130-159 Borderline >159 Undesirable Direct (measured) LDL and calculated LDL are not interchangeable tests. Performed By: #### G LYHGB, LIPR #### [address] [place], [place] [address] [employer] Leak Tester: Ruslan Fernando MD #### INSU #### [facility] [address] [place] [address] [employer] Leak Tester: Marv Guzman MD [address] [place], [place] [address] [employer] Leak Tester: Ruslan Fernando MD Cholesterol.total/Perla sterol in HDL [Mass ratio] 5.8 {ratio} High <5 [facility] Comment on above: Performed By: #### G LYHGB, LIPR #### [address] [place] [address] [employer] Leak Tester: Ruslan Fernando MD #### INSU #### [facility] [address] [place] [address] [employer] Leak Tester: Marv Guzman MD [address] [place] [place] [address] [employer] Leak Tester: Ruslan Fernando MD Triglyceride [Mass/Vol] 336 mg/dL High <150 M [facility] Comment on above: Result Comment: Triglyceride Guidelines: <150 Desirable 150-199 Borderline 200-499 High >499 Very high Based on AHA Guidelines for fasting triglyceride, May 2012. Performed By: #### G LYHGB, LIPR #### [address] [place] [address] [employer] Leak Tester: Ruslan Fernando MD #### INSU #### [facility] [address] [place] [address] [employer] Leak Tester: Marv Guzman MD [address] [place] [address] [employer] Leak Tester: Ruslan Fernando MD Cholesterol in VLDL [Mass/Vol] NOT REPORTED Normal 30 [facility] Comment on above: Performed By: #### G LYHGB, LIPR #### [address] [place] [address] [employer] Leak Tester: Ruslan Fernando MD #### INSU #### [facility] [address] [place] [id number] [employer] Leak Tester: Marv Guzman MD [facility] [address] [place] [address] [employer] Leak Tester: Ruslan Fernando MD Vital Signs Date Time Vital Sign Value Performing Clinician Facility 01-29-2025 16:33-0400 Body mass index (BMI) [Ratio] 34.72 kg/m2 Darío Floro CNM Work Phone: [facility] 01-29-2025 16:33-0400 Body weight 109.77 kg Darío Floro CNM Work Phone: [facility] 01-29-2025 16:33-0400 Diastolic blood pressure 60 mm[Hg] Darío Floro CNM Work Phone: [facility] 01-29-2025 16:33-0400 Systolic blood pressure 120 mm[Hg] Darío Floro CNM Work Phone: [facility] 01-22-2025 16:32-0400 Body mass index (BMI) [Ratio] 34.44 kg/m2 Darío Floro CNM Work [facility] [facility] 01-22-2025 16:32-0400 Body weight 108.86 kg Darío Floro CNM Work Phone: [facility] 01-22-2025 16:32-0400 Diastolic blood pressure 70 mm[Hg] Darío Floro CNM Work Phone: [facility] 01-22-2025 16:32-0400 Systolic blood pressure 120 mm[Hg] Darío Floro CNM Work Phone: [facility] 01-18-2025 08:28-0400 Body height 177.8 cm Awilda Petznick DO Work Phone: [facility] 01-18-2025 08:28-0400 Body mass index (BMI) [Ratio] 34.44 kg/m2 Awilda Petznick DO Work Phone: [facility] 01-18-2025 08:28-0400 Body temperature 98.01 [degF] Awilda Petznick DO Work Phone: [facility] 01-18-2025 08:28-0400 Body weight 108.86 kg Awilda Petznick DO Work Phone: [facility] 01-18-2025 08:28-0400 Diastolic blood pressure 66 mm[Hg] Awilda Petznick DO Work Phone: [facility] 01-18-2025 08:28-0400 Heart rate 88 /min Awilda Petznick DO Work Phone: [facility] 01-18-2025 08:28-0400 SaO2% (BldA) [Mass fraction] 98 % Awilda Petznick DO Work Phone: [facility] 01-18-2025 08:28-0400 Systolic blood pressure 118 mm[Hg] Awilda Petznick DO Work Phone: [facility] 01-15-2025 16:36-0400 Body mass index (BMI) [Ratio] 34.87 kg/m2 Darío Floro CNM Work Phone: [facility] 01-15-2025 16:36-0400 Body weight 110.22 kg Darío Floro CNM Work Phone: [facility] 01-15-2025 16:36-0400 Diastolic blood pressure 78 mm[Hg] Darío Floro CNM Work Phone: [facility] 01-15-2025 16:36-0400 Systolic blood pressure 120 mm[Hg] Darío Floro CNM Work Phone: [facility] 01-09-2025 16:34-0400 Body mass index (BMI) [Ratio] 34.72 kg/m2 Darío Floro CNM Work Phone: [facility] 01-09-2025 16:34-0400 Body weight 109.77 kg Darío Floro CNM Work Phone: [facility] 01-09-2025 16:34-0400 Diastolic blood pressure 74 mm[Hg] Darío Floro CNM Work Phone: [facility] 01-09-2025 16:34-0400 Systolic blood pressure 120 mm[Hg] Darío Floro CNM Work Phone: [facility] 01-01-2025 16:33-0400 Body mass index (BMI) [Ratio] 34.29 kg/m2 Darío Floro CNM Work Phone: [facility] 01-01-2025 16:33-0400 Body weight 108.41 kg Darío Floro CNM Work Phone: [facility] 01-01-2025 16:33-0400 Diastolic blood pressure 72 mm[Hg] Darío Floro CNM Work Phone: [facility] 01-01-2025 16:33-0400 Systolic blood pressure 120 mm[Hg] Darío Floro CNM Work Phone: [facility] 12-26-2024 16:02-0400 Body mass index (BMI) [Ratio] 34.15 kg/m2 Darío Floro CNM Work Phone: [facility] 12-26-2024 16:02-0400 Body weight 107.96 kg Darío Floro CNM Work Phone: [facility] 12-26-2024 16:02-0400 Diastolic blood pressure 74 mm[Hg] Darío Floro CNM Work Phone: [facility] 12-26-2024 16:02-0400 Systolic blood pressure 116 mm[Hg] Daroí Floro CNM Work Phone: [facility] 12-11-2024 15:56-0400 Diastolic blood pressure 70 mm[Hg] Darío Floro CNM Work Phone: [facility] 12-11-2024 15:56-0400 Systolic blood pressure 120 mm[Hg] Darío Floro CNM Work Phone: [facility] 12-07-2024 08:17-0400 Body height 177.8 cm Awilda Petznick DO Work Phone: [facility] 12-07-2024 08:17-0400 Body temperature 97.9 [degF] Awilda Petznick DO Work Phone: [facility] 12-07-2024 08:17-0400 Diastolic blood pressure 66 mm[Hg] Awilda Petznick DO Work Phone: [facility] 12-07-2024 08:17-0400 Heart rate 86 /min Awilda Petznick DO Work Phone: [facility] 12-07-2024 08:17-0400 SaO2% (BldA) [Mass fraction] 98 % Awilda Petznick DO Work Phone: [facility] 12-07-2024 08:17-0400 Systolic blood pressure 126 mm[Hg] Awilda Petznick DO Work Phone: [facility] 11-15-2024 16:31-0400 Body mass index (BMI) [Ratio] 34.44 kg/m2 Darío Banuelos CN Work Phone: [facility] 11-15-2024 16:31-0400 Body weight 108.86 kg Darío Banuelos CN Work Phone: [facility] 11-15-2024 16:31-0400 Diastolic blood pressure 78 mm[Hg] Darío Banuelos CNM Work Phone: [facility] 11-15-2024 16:31-0400 Systolic blood pressure 120 mm[Hg] Darío Banuelos CN Work Phone: [facility] 11-08-2024 09:17-0400 Body height 177.8 cm Tricia Rowland MD Work Phone: [facility] 11-08-2024 09:17-0400 Body mass index (BMI) [Ratio] 34.06 kg/m2 Tricia Rowland MD Work Phone: [facility] 11-08-2024 09:17-0400 Body weight 107.68 kg Tricia Rowland MD Work Phone: [facility] 11-08-2024 09:17-0400 Diastolic blood pressure 64 mm[Hg] Tricia Rowland MD Work Phone: [facility] 11-08-2024 09:17-0400 Heart rate 80 /min Tricia Rowland MD Work Phone: [facility] 11-08-2024 09:17-0400 SaO2% (BldA) [Mass fraction] 98 % Tricia Rowland MD Work Phone: [facility] 11-08-2024 09:17-0400 Systolic blood pressure 128 mm[Hg] Tricia Rowland MD Work Phone: [facility] 10-18-2024 16:37-0500 Body mass index (BMI) [Ratio] 34.15 kg/m2 Darío Banuelos CNM Work Phone: [facility] 10-18-2024 16:37-0500 Body weight 107.96 kg Darío Banuelos CNM Work Phone: [facility] 10-18-2024 16:37-0500 Diastolic blood pressure 60 mm[Hg] Darío Banuelos CNM Work Phone: [facility] 10-18-2024 16:37-0500 Systolic blood pressure 120 mm[Hg] Darío Banuelos CNM Work Phone: [facility] 10-09-2024 15:40-0500 Body height 177.8 cm Awilda Petznick DO Work Phone: [facility] 10-09-2024 15:40-0500 Body mass index (BMI) [Ratio] 34.01 kg/m2 Awilda Petznick DO Work Phone: [facility] 10-09-2024 15:40-0500 Body temperature 98.2 [degF] Awilda Petznick DO Work Phone: [facility] 10-09-2024 15:40-0500 Body weight 107.5 kg Awilda Petznick DO Work Phone: [facility] 10-09-2024 15:40-0500 Diastolic blood pressure 66 mm[Hg] Awilda Petznick DO Work Phone: [facility] 10-09-2024 15:40-0500 Heart rate 98 /min Awilda Petznick DO Work Phone: [facility] 10-09-2024 15:40-0500 SaO2% (BldA) [Mass fraction] 98 % Awilda Petznick DO Work Phone: [facility] 10-09-2024 15:40-0500 Systolic blood pressure 128 mm[Hg] Awilda Petznick DO Work Phone: [facility] 09-28-2024 16:17-0500 Body mass index (BMI) [Ratio] 34.58 kg/m2 Darío Díazo CNM Work Phone: [facility] 09-28-2024 16:17-0500 Body weight 109.32 kg Darío Díazo CNM Work Phone: [facility] 09-28-2024 16:17-0500 Diastolic blood pressure 70 mm[Hg] Darío Díazo CNM Work Phone: [facility] 09-28-2024 16:17-0500 Systolic blood pressure 120 mm[Hg] Darío Díazo CNM Work Phone: [facility] 09-19-2024 10:31-0500 Body height 177.8 cm Aye Saucedo MD Work Phone: [facility] 09-19-2024 10:31-0500 Body mass index (BMI) [Ratio] 34.15 kg/m2 Aye Saucedo MD Work Phone: [facility] 09-19-2024 10:31-0500 Body weight 107.96 kg Aye Saucedo MD Work Phone: [facility] 09-19-2024 10:31-0500 Diastolic blood pressure 76 mm[Hg] Aye Saucedo MD Work Phone: [facility] [employer] [facility] 09-19-2024 10:31-0500 Heart rate 85 /min Aye Saucedo MD Work Phone: [facility] 09-19-2024 10:31-0500 SaO2% (BldA) [Mass fraction] 98 % Aye Saucedo MD Work Phone: [facility] 09-19-2024 10:31-0500 Systolic blood pressure 122 mm[Hg] Aye Saucedo MD Work Phone: [facility] 09-11-2024 08:12-0500 Body mass index (BMI) [Ratio] 34.29 kg/m2 Clarke Modi MD Work Phone: [facility] 09-11-2024 08:12-0500 Body weight 108.41 kg Clarke Modi MD Work Phone: [facility] 09-11-2024 08:12-0500 Diastolic blood pressure 81 mm[Hg] Clarke Modi MD Work Phone: [facility] 09-11-2024 08:12-0500 Heart rate 80 /min Clarke Modi MD Work Phone: [facility] 09-11-2024 08:12-0500 Systolic blood pressure 122 mm[Hg] Clarke Modi MD Work Phone: [facility] 09-01-2024 08:54-0500 Body height 177.8 cm Awilda Petznick DO Work Phone: [facility] 09-01-2024 08:54-0500 Body mass index (BMI) [Ratio] 34.44 kg/m2 Awilda Petznick DO Work Phone: [facility] 09-01-2024 08:54-0500 Body temperature 98.49 [degF] Awilda Petznick DO Work Phone: [facility] 09-01-2024 08:54-0500 Body weight 108.86 kg Awilda Petznick DO Work Phone: [facility] 09-01-2024 08:54-0500 Diastolic blood pressure 72 mm[Hg] Awilda Petznick DO Work Phone: [facility] 09-01-2024 08:54-0500 Heart rate 92 /min Awilda Petznick DO Work Phone: [facility] 09-01-2024 08:54-0500 SaO2% (BldA) [Mass fraction] 97 % Awilda Petznick DO Work Phone: [facility] 09-01-2024 08:54-0500 Systolic blood pressure 126 mm[Hg] Awilda Petznick DO Work Phone: [facility] 08-30-2024 16:08-0500 Body mass index (BMI) [Ratio] 34.58 kg/m2 Darío Banuelos CNM Work Phone: [facility] 08-30-2024 16:08-0500 Body weight 109.32 kg Darío Banuelos CNM Work Phone: [facility] 08-30-2024 16:08-0500 Diastolic blood pressure 68 mm[Hg] Darío Banuelos CNM Work Phone: [facility] 08-30-2024 16:08-0500 Systolic blood pressure 120 mm[Hg] Darío Banuelos CNM Work Phone: [facility] 08-14-2024 10:40-0500 Body height 177.8 cm Svetlana Lavoy PA-C Work Phone: [facility] 08-14-2024 10:40-0500 Body mass index (BMI) [Ratio] 34.72 kg/m2 Svetlana Lavoy PA-C Work Phone: [facility] 08-14-2024 10:40-0500 Body weight 109.77 kg Svetlana Lavoy PA-C Work Phone: [facility] 08-14-2024 10:40-0500 Diastolic blood pressure 68 mm[Hg] Svetlana Lavoy PA-C Work Phone: [facility] 08-14-2024 10:40-0500 Heart rate 86 /min Svetlana Barnardoy PA-C Work Phone: [facility] 08-14-2024 10:40-0500 Systolic blood pressure 134 mm[Hg] Svetlana Barnardoy PA-C Work Phone: [facility] 08-14-2024 09:42-0500 Body height 177.8 cm Shauna Denny RN Work Phone: [facility] 08-14-2024 09:41-0500 Body mass index (BMI) [Ratio] 34.72 kg/m2 Shauna Denny RN Work Phone: [facility] 08-14-2024 09:41-0500 Body weight 109.77 kg Shauna Denny RN Work Phone: [facility] 08-03-2024 08:36-0500 Body mass index (BMI) [Ratio] 35.3 kg/m2 Darío Floro CNM Work Phone: [facility] 08-03-2024 08:36-0500 Body weight 111.58 kg Darío Floro CNM Work Phone: [facility] 08-03-2024 08:36-0500 Diastolic blood pressure 80 mm[Hg] Darío Floro CNM Work Phone: [facility] 08-03-2024 08:36-0500 Systolic blood pressure 122 mm[Hg] Darío Floro CNM Work Phone: [facility] 07-10-2024 15:43-0500 Body mass index (BMI) [Ratio] 35.3 kg/m2 Darío Floro CNM Work Phone: [facility] 07-10-2024 15:43-0500 Body weight 111.58 kg Darío Floro CNM Work Phone: [facility] 07-10-2024 15:43-0500 Diastolic blood pressure 76 mm[Hg] Darío Floro CNM Work Phone: [facility] 07-10-2024 15:43-0500 Systolic blood pressure 120 mm[Hg] Darío Banuelos CNM Work Phone: [facility] 06-08-2024 14:04-0400 Body height 177.8 cm Awilda Petznick DO Work Phone: [facility] 06-08-2024 14:04-0400 Body mass index (BMI) [Ratio] 35.01 kg/m2 Awilda Petznick DO Work Phone: [facility] 06-08-2024 14:04-0400 Body temperature 98.49 [degF] Awilda Petznick DO Work Phone: [facility] 06-08-2024 14:04-0400 Body weight 110.68 kg Awilda Petznick DO Work Phone: [facility] 06-08-2024 14:04-0400 Diastolic blood pressure 72 mm[Hg] Awilda Petznick DO Work Phone: [facility] 06-08-2024 14:04-0400 Heart rate 87 /min Awilda Petznick DO Work Phone: [facility] [employer] 06-08-2024 14:04-0400 SaO2% (BldA) [Mass fraction] 98 % Awilda Petznick DO Work Phone: [facility] 06-08-2024 14:04-0400 Systolic blood pressure 138 mm[Hg] Awilda Petznick DO Work Phone: [facility] Healthcare Encounters Encounter Date Encounter Type Care Provider Facility Start: 01-29-2025 End: 01-29-2025 Subsequent care visit Darío Nadine Vin CNM Work Phone: [facility] Comment on above: with type 2 diabetes mellitus in third trimester (HHS-HCC) (Primary Dx); Type 2 diabetes mellitus treated with insulin (HCC); Encounter for care of first , third trimester (HHS-HCC) Start: 01-29-2025 ambulatory DARÍO BANUELOS Not Lisa ilable Start: 01-29-2025 End: 01-29-2025 Bamboo flowsheet Darío Díazo CNM Work Phone: [facility] Start: 01-29-2025 End: 01-29-2025 Bamboo flowsheet Darío Díazo CNM Work Phone: [...] 2 diabetes mellitus treated with insulin ([facility]) Start: 01-22-2025 End: 01-22-2025 Bamboo flowsheet Darío Díazo CNM Work Phone: [facility] Start: 01-22-2025 End: 01-22-2025 Bamboo flowsheet Darío Díazo CNM Work Phone: [facility] Start: 01-19-2025 End: 01-19-2025 Clinisync Result Encounter Henry Flaco DO Work Phone: [facility] External Department Unsolicited Start: 01-19-2025 End: 01-19-2025 Clinisync Result Encounter Henry Flaco DO Work Phone: [facility] Unsolicited Start: 01-18-2025 End: 01-18-2025 Office outpatient visit 15 minutes Awilda M Petznick DO Work Phone: [facility] [...] End: 01-09-2025 Subsequent care visit Darío Nadine Floro CNM Work Phone: [facility] Comment on above: Type 2 diabetes guerrero itus treated with insulin ([facility]) (Primary Dx); Encounter for care of first , third trimester Start: 01-09-2025 End: 01-09-2025 Bamboo flowsheet Darío L Floro CNM Work Phone: [facility] Start: 01-09-2025 End: 01-09-2025 Bamboo flowsheet Darío L Floro CNM Work Phone: [facility] Start: 01-01-2025 End: 01-01-2025 ambulatory DARÍO L FLORO Not Available Start: 01-01-2025 End: 01-01-2025 Subsequent care visit Darío L Floro CNM [...] 2 diabetes mellitus treated with insulin ([facility]) Start: 12-26-2024 End: 12-26-2024 Bamboo flowsheet Darío L Floro CNM Work Phone: [facility] Start: 12-26-2024 End: 12-26-2024 Bamboo flowsheet Darío L Floro CNM Work Phone: [facility] Start: 12-25-2024 End: 12-25-2024 Bamboo flowsheet Henyr Flaco DO Work Phone: [facility] [...] Start: 11-15-2024 End: 11-15-2024 Subsequent care visit Daíro Díazo CNM Work Phone: [facility] [...] minutes Aye Saucedo MD Work Phone: [facility] Comment on above: Long Q-T syndrome (P rimary Dx); Hx of prolonged Q-T interval on ECG Start: 11-08-2024 End: 11-08-2024 ambulatory [facility] Start: 11-07-2024 End: 11-07-2024 Telephone encounter Abby Andino [facility] Start: 10-31-2024 End: 10-31-2024 ambulatory [facility] Start: 10-18-2024 End: 10-18-2024 Subsequent care visit Darío L Floro CNM Work Phone: [facility] Comment on above: Type 2 diabetes guerrero itus with hyperosmolarity without coma, without long-term current use of insulin (HCC) (Primary Dx); Encounter for care of first , second trimester ([facility]-H[facility]) Start: 10-18-2024 End: 10-18-2024 ambulatory DARÍO L FLORO Not Available Start: 10-18-2024 End: 10-18-2024 Bamboo flowsheet Darío L Floro CNM Work Phone: [facility] Start: 10-18-2024 End: 10-18-2024 Bamboo flowsheet Darío L Floro CNM Work Phone: [facility] Start: 10-10-2024 End: 10-10-2024 Office outpatient visit 25 minutes Clarke Modi MD Work Phone: [facility] Comment on above: Pre-existing type 2 diabetes mellitus during in second trimester (Primary Dx) Start: 10-10-2024 End: 10-10-2024 [facility] Start: 10-09-2024 End: 10-09-2024 Office outpatient visit 15 minutes Awilda Delatorre DO Work Phone: [phone] Comment on above: with type 2 diabetes mellitus in second trimester (Primary Dx); Type 2 diabetes mellitus without complication, without long-term current use of insulin (CMS/[facility]) Start: 10-09-2024 End: 10-09-2024 ambulatory AWILDA DELATORRE Not Available Start: 10-03-2024 End: 10-03-2024 ambulatory [facility] Start: 09-28-2024 End: 09-28-2024 Subsequent care visit Darío Banuelos CNM Work Phone: [facility] Comment on above: Encounter for prenat al care of first , second trimester (Primary Dx); Type 2 diabetes mellitus without complication, without long-term current use of insulin (CMS/[facility]) Start: 09-28-2024 End: 09-28-2024 ambulatory DARÍOTESHA BANUELOS Not Available Start: 09-28-2024 End: 09-28-2024 Bamboo flowsheet Darío Mccoy Sheebao CNM Work Phone: [facility] Start: 09-28-2024 End: 09-28-2024 Bamboo flowsheet Darío Díazo CNM Work Phone: [facility] Start: 09-19-2024 End: 09-19-2024 Office consultation new/estab patient 40 min Jacque Schneider MD Work Phone: [facility] Comment on above: Long Q-T syndrome (P rimary Dx); Type 2 diabetes mellitus without complication, unspecified whether skilled nursing insulin use (CMS-HCC) Start: 09-19-2024 End: 09-19-2024 ambulatory AYE SAUCEDO [facility] Start: 09-18-2024 End: 09-18-2024 Telephone encounter Abby Andino CMA [facility] Start: 09-14-2024 End: 09-14-2024 Chart abstracting Jacque Schneider MD Work Phone: [facility] Start: 09-11-2024 End: 09-11-2024 Telephone encounter Yudelka Randall RN [facility] Start: 09-11-2024 End: 09-11-2024 Office outpatient visit 25 minutes Clarke Modi MD Work Phone: [facility] Comment on above: Pre-existing type 2 diabetes mellitus during in second trimester (Primary Dx); Long Q-T syndrome Start: 09-11-2024 End: 09-11-2024 ambulatory [facility] Start: 09-05-2024 End: 09-05-2024 Telephone encounter Sparkle Castillo RN [facility] Start: 09-01-2024 End: 09-01-2024 Office outpatient [...] Posadas RN [facility] Start: 08-23-2024 End: 08-23-2024 Office outpatient visit 25 minutes Ariella Roberto APRN-[employer] Work Phone: [facility] Comment on above: Type 2 diabetes guerrero itus without complication, unspecified whether skilled nursing insulin use ([facility]-HCC) (Primary Dx) Start: 08-23-2024 End: 08-23-2024 ambulatory ARIELLA ROBERTO [facility] Start: 08-14-2024 End: 08-14-2024 Office outpatient new 45 minutes Svetlana Jack PA-C Work Phone: [facility] Comment on above: with type 2 diabetes mellitus in second trimester (Primary Dx); Long Q-T syndrome Start: 08-14-2024 End: 08-14-2024 ambulatory Shauna Denny RN Work Phone: [facility] Comment on above: Pre-existing type 2 [...] without long-term current use of insulin (CMS/HCC) Start: 08-03-2024 End: 08-03-2024 ambulatory DARÍO DÍAZO Not Available Start: 07-25-2024 End: 07-25-2024 Chart abstracting Scanning Provider External [facility] Start: 07-10-2024 End: 07-10-2024 Subsequent care visit Darío Díazo CNM Work Phone: [facility] Comment on above: Encounter for prenat al care of first , first trimester (Primary Dx) Start: 07-10-2024 End: 07-10-2024 ambulatory DARÍO BANUELOS Not Available Start: 07-10-2024 End: 07-10-2024 Bamboo flowsheet Darío Díazo CNM Work Phone: [facility] Start: 07-10-2024 End: 07-10-2024 Bamboo flowsheet Darío Nadine Díazo CNM Work Phone: [facility] Start: 07-03-2024 End: 07-03-2024 ambulatory DARÍO DÍAZO Not Available Start: 06-08-2024 End: 06-08-2024 Office outpatient visit 15 minutes Awilda Delatorre DO Work Phone: [facility] Comment on above: Type 2 diabetes guerrero itus without complication, without long- term current use of insulin ([facility]) Start: 06-08-2024 End: 06-08-2024 ambulatory AWILDA Brooks JUAN RAMON Not Available Start: 05-03-2024 End: 05-03-2024 Telephone encounter Darío Banuelos CNM Work Phone: [facility] Start: 02-28-2024 End: 02-28-2024 ambulatory AWILDA DELATORRE Not Available Start: 07-05-2019 End: 07-06-2019 Patient encounter procedure DARÍOTESHA BANUELOS [facility] Start: 07-05-2019 End: 07-05-2019 Subsequent hospital visit by physician [facility] Laboratory Procedures Date Procedure Procedure Detail Performing Clinician Start: 01-26-2025 US OB BPP W NON-STRESS Henry Flaco DO Work Phone: Start: 01-19-2025 US OB BPP W NON-STRESS Henry Flaco DO Work Phone: Start: 01-18-2025 Hemoglobin glycosyla carola a1c Awilda Delatorre DO Work Phone: Start: 01-12-2025 US OB BPP W NON-STRESS Henry Flaco DO Work Phone: Start: 01-12-2025 US OB GROWTH Henry Fazi o DO Work Phone: Start: 01-01-2025 Culture bacterial quanttative colony count urine Darío Banuelos [facility] Work Phone: Start: 12-29-2024 US OB BPP W NON-STRESS Henry Flaco DO Work Phone: Start: 12-25-2024 Urnls dip stick/tabl et rgnt non-auto w/o micrscp Henry Flaco DO Work Phone: Start: 11-08-2024 Ecg routine ecg w/le ast 12 lds w/i&r Tricia Rowland MD Work Phone: Start: 10-09-2024 Hemoglobin glycosyla carola a1c Awilda Brooks [email or web address] DO Work Phone: Start: 09-19-2024 Ecg routine ecg w/le ast 12 lds w/i&r Aye Saucedo MD Work Phone: Start: 08-14-2024 AMB REFERRAL TO [facility]IC[facility] - DIABETES EDUCATION Darío Banuelos [employer] Work Phone: Start: 08-14-2024 AMB REFERRAL TO [facility] MEDICINE - NUTRITION EDUCATION Darío Banuelos [facility] Work Phone: Start: 07-11-2024 CHLAMYDIA/GC BY [...] Start: 06-08-2024 Hemoglobin glycosyla carola a1c Awilda Brooks Juan Ramon DO Work Phone: Start: 02-10-2023 Cytp cerv/vag auto t hin layer prep mnl screen Darío Banuelos CNM Work Phone: Start: 07-05-2019 Assay of insulin total DARÍO BANUELOS Start: 07-05-2019 Hemoglobin glycosyla carola a1c DARÍO BANUELOS Start: 07-05-2019 Lipid panel DARÍO CARRILLO SHAYNE Start: 07-05-2019 Assay of insulin total Darío Banuelos Work Phone: Start: 07-05-2019 Hemoglobin glycosyla carola a1c Darío Banuelos Work Phone: Start: 07-05-2019 Lipid panel Darío Carrillo shayne Work Phone: Plan of Treatment Date Care Activity Detail Author Start: 11-08-2025 Adult BMI Screening Adult BMI Screen ing [facility] Start: 11-08-2025 Tobacco Screening Tobacco Screening [facility] Start: 09-19-2025 Adult BMI Screening Adult BMI Screen ing [facility] Start: 09-19-2025 Tobacco Screening Tobacco Screening [facility] Start: 09-11-2025 Adult BMI Screening Adult BMI Screen ing [facility] Start: 09-11-2025 Tobacco Screening Tobacco Screening [facility] Start: 08-30-2025 Urine screening for protein Diabetes: Urine Protein Screening [facility] Start: 08-14-2025 Adult BMI Screening Adult BMI Screen ing [facility] Start: 08-14-2025 Tobacco Screening Tobacco Screening [facility] Start: 08-14-2025 End: 08-14-2025 US MFM with or without consult US MFM with or without consult Imaging Routine with type 2 diabetes mellitus in second trimester Expected: 08/14/2025 (Approximate), Expires: 08/14/2025 [employer] Work Phone: Comment on above: Expected: 08/14/2025 (Approximate), Expires: 08/14/2025 Start: 04-20-2025 Hemoglobin A1c measurement Diabetes: Hemoglobin A1C [facility] Start: 04-17-2025 End: 04-17-2025 Patient encounter procedure 04/17/2025 10:30 AM EDT Office Visit [facility] [address] [place] [address] ElenoJori barrowsara Guy, [address] [facility] [address] [place] [address] [facility] Start: 04-16-2025 Influenza vaccination Influenz a Vaccine (Season Ended) [facility] Start: 02-15-2025 End: 02-15-2025 Professional / ancillary services management 02/15/2025 4:00 PM EDT Ancillary Procedure [facility] [address] [id number] [facility] Start: 02-13-2025 End: 02-13-2025 Patient encounter procedure 02/13/2025 4:00 PM EDT Routine [facility] [address] [place] [address] Darío Banuelos, CNM [address] [place] [address] [facility] Start: 02-12-2025 End: 02-12-2025 Patient encounter procedure 02/12/2025 4:30 PM EDT Routine [facility] [address] [place] [address] Darío Banuelos, CNM [address] [place] [address] [facility] Start: 02-09-2025 End: 02-09-2025 Professional / ancillary services management 02/09/2025 4:00 PM EDT Ancillary Procedure [facility] [address] [phone] [facility] Start: 02-06-2025 End: 02-06-2025 Patient encounter procedure [facility] Start: 02-02-2025 End: 02-02-2025 Professional / ancillary services management 02/02/2025 4:00 PM EDT Ancillary Procedure [facility] [address] [address] [facility] Start: 01-30-2025 End: 01-30-2025 Patient encounter procedure 01/30/2025 4:00 PM EDT Routine [facility] 1479 [facility]NOTE 3], [place] [address] Darío Banuelos, CATHIEM [address] [place] [address] [facility] Start: 01-29-2025 End: 01-29-2025 Patient encounter procedure [facility] Comment on above: Arrived Start: 01-26-2025 End: 01-26-2025 Professional / ancillary services management 01/26/2025 4:00 PM EDT Ancillary Procedure [facility] [address] [phone] [facility] Start: 01-23-2025 End: 01-23-2025 Patient encounter procedure 01/23/2025 4:00 PM EDT Routine [facility] 1479 [facility] [place]NOTE 3], [place] [address] Darío Banuelos, CATHIEM [address] [place] [address] [facility] Start: 01-22-2025 End: 01-22-2025 Patient encounter procedure 01/22/2025 4:30 PM EDT Routine [facility] 1479 [facility] [place]NOTE 3], [place] [address] Darío Banuelos, CNM [address] [place] [address] [facility] Start: 01-22-2025 End: 01-22-2026 STREPTOCCOUS, GROUP B CULTURE STREPTOCCOUS, GROUP B CULTURE Lab Routine screening for streptococcus B Expected: 01/22/2025 (Approximate), Expires: 01/22/2026 [facility] Work Phone: Comment on above: Expected: 01/22/2025 (Approximate), Expires: 01/22/2026 Start: 01-19-2025 End: 01-19-2025 Professional / ancillary services management 01/19/2025 9:15 AM EDT Ancillary Procedure [facility] [address] [facility] [address] [place] [phone] [facility] Start: 01-18-2025 End: 01-18-2025 Patient encounter procedure [facility] 230 Comment on above: with type 2 diabetes mellitus in third trimester Start: 01-16-2025 End: 01-16-2025 Patient encounter procedure 01/16/2025 4:00 PM EDT Routine [facility] 1479 [place] [phone] Darío Banuelos, CNM [address] [place] [address] [facility] OB Start: 01-15-2025 End: 01-15-2025 Patient encounter procedure [facility] OB Comment on above: Arrived Start: 01-12-2025 End: 01-12-2025 Professional / ancillary services management 01/12/2025 4:00 PM EDT Ancillary Procedure [facility] 1479 [facility] [address] [place] [phone] [facility] Start: 01-09-2025 End: 01-09-2025 Patient encounter procedure 01/09/2025 4:00 PM EDT Routine [facility] 1479 [facility] [place]NOTE 3], [place] [phone] Darío Banuelos, CNM [address] [place] [address] [facility] Start: 01-06-2025 Hemoglobin A1c measurement Diabetes: Hemoglobin A1C [facility] Start: 01-05-2025 End: 01-05-2025 Professional / ancillary services management 01/05/2025 9:15 AM EDT Ancillary Procedure [facility] 14[address] [facility] [address] [place] [address] [facility] Start: 01-03-2025 Urine screening for protein Diabetes: Urine Protein Screening [facility] Start: 01-02-2025 End: 01-02-2025 Patient encounter procedure 01/02/2025 4:00 PM EDT Routine [facility] 1479 [facility] [place]NOTE [facility]], [place] [address] Darío Banuelos, CNM [address] [place] [address] [facility] OB Start: 01-01-2025 End: 01-01-2025 Patient encounter procedure 01/01/2025 4:30 PM EDT Routine [facility] 1479 [facility] [place]NOTE [facility]], [place] [phone] Darío Banuelos, CNM [address] [place] [address] [facility] Start: 12-29-2024 End: 12-29-2024 Professional / ancillary services management 12/29/2024 4:00 PM EDT Ancillary Procedure [facility] [address] [place] [address] [facility] Start: 12-26-2024 End: 12-26-2024 Patient encounter procedure 12/26/2024 4:00 PM EDT Routine [facility] 1479 [facility] [place]NOTE [facility]], [place] [address] Darío Banuelos, CNM [address] [place] [address] [facility] OB Start: 12-26-2024 End: 12-26-2025 [...] ULTRASOUND [address] [place] [phone] [facility] Start: 12-11-2024 End: 12-11-2024 [...] [address] [place] [address] Awilda Delatorre DO [address] [place] [address] [facility] 230 Start: 11-15-2024 End: 11-15-2024 Patient encounter procedure 11/15/2024 4:30 PM EDT Routine [facility] [address] [place] [phone] Darío Banuelos, CNM [address] [place] [address] Arrived [facility] Comment on above: Arrived Start: 11-15-2024 End: 11-15-2025 US for US OB follow up transabdominal approach Imaging Routine related condition in third trimester Expected: 11/15/2024, Expires: 11/15/2025 [facility] Work Phone: Comment on above: Expected: 11/15/2024 , Expires: 11/15/2025 Start: 11-08-2024 End: 11-08-2024 Patient encounter procedure 11/08/2024 9:30 AM EDT Office Visit [facility] [address] [address] Aye Saucedo MD [address] [place] [address] Tricia Rowland MD [address] [place] [address] [facility] Start: 10-31-2024 End: 10-31-2024 Patient encounter procedure 10/31/2024 8:00 AM EDT Appointment [facility] - Ultrasound [address] [place] [address] [facility] - Ultrasound Start: 10-18-2024 End: 10-18-2024 Patient encounter procedure [facility] Comment on above: Arrived Start: 10-10-2024 Hemoglobin A1c measurement Diabetes: Hemoglobin A1C [facility] Start: 10-10-2024 End: 10-10-2024 Telemedicine consultation with patient 10/10/2024 11:30 AM EST Telemedicine Maternal- Medicine at [facility] [address] [place] [address] Clarke Modi MD [address] [place] [address] M[facility]- Medicine at [facility] Start: 10-09-2024 End: 10-09-2024 Patient encounter procedure 10/09/2024 3:45 PM EST Office Visit [facility] [address] [place] [phone] Awilda Delatorre DO [address] [place] [address] [facility] 230 Start: 10-03-2024 End: 10-03-2024 Patient encounter procedure 10/03/2024 10:00 AM EST Appointment [facility] - Ultrasound [address] [place] [address] [facility] - Ultrasound Start: 09-28-2024 End: 09-28-2024 Patient encounter procedure [facility] Comment on above: Arrived Start: 09-25-2024 End: 09-25-2024 Patient encounter procedure 09/25/2024 8:30 AM EST Appointment [facility] Imaging [address] [facility] [place] [address] [facility] Imaging Start: 09-19-2024 End: 09-19-2024 Patient encounter procedure 09/19/2024 8:15 AM EST [facility] [address] [facility] [address] [place] [phone] Jacque Schneider MD [address] [place] [address] [facility] Start: 09-11-2024 End: 09-11-2024 Patient encounter procedure 09/11/2024 8:00 AM EST Office Visit [facility]- Medicine at [facility] [address] [place] [address] Clarke Modi MD [address] [facility], [address] [place] [address] [facility]- Medicine at [facility] Start: 09-08-2024 Hemoglobin A1c measurement Diabetes: Hemoglobin A1C [facility] Start: 08-30-2024 End: 08-30-2024 Patient encounter procedure 08/30/2024 4:30 PM EST Office Visit [facility] [address] [place] [address] Darío Banuelos CN [address] [employer] [place], [place] [phone] [facility] Start: 08-23-2024 End: 08-23-2024 Telemedicine consultation with patient 08/23/2024 2:00 PM EST Telemedicine Maternal- Medicine at [facility] [address] [place] [phone] Ariella Roberto, SORTER OPERATOR[employer]SISTANT [employer] [address] [place] [address] [facility] at [facility] Start: 08-14-2024 End: 11-12-2024 Protein creat ratio Protein creat ratio Lab Routine with type 2 diabetes mellitus in second trimester Expected: 08/14/2024 (Approximate), Expires: 11/12/2024 [facility] Comment on above: Expected: 08/14/2024 (Approximate), Expires: 11/12/2024 Start: 08-14-2024 End: 08-14-2024 Patient encounter procedure 08/14/2024 11:00 AM EST Office Visit [facility] at [facility] [address] [facility] [place] [address] Svetlana Jack PA-C [address] [facility] [address] [place] [address] M[facility]- Medicine at [facility] Start: 08-14-2024 End: 08-14-2024 ambulatory 08/14/2024 8:30 AM EST Support Visit [facility]- Medicine at [facility] [address] [facility] [place] [address] Shauna Denny RN [address] [facility], [address] [place] [address], [place] [address] Maribell Amin, OLAYINKA [address] [facility], [address] [place] [address], [place] [address] [facility]- Medicine at [facility] Start: 08-03-2024 End: 08-03-2024 Patient encounter procedure 08/03/2024 8:30 AM EST Routine [facility] [address] [place] [phone] Darío Banuelos, CN [address] [place] [address] Arrived [facility] Comment on above: Arrived Start: 07-10-2024 End: 07-10-2024 Patient encounter procedure 07/10/2024 3:45 PM EST Routine [facility] [address] [place] [address] Darío Banuelos, CN [address] [place] [address] Arrived [facility] Comment on above: Arrived Start: 05-30-2024 Hemoglobin A1c measurement Diabetes: Hemoglobin A1C [facility] Start: 05-30-2024 End: 05-30-2024 Patient encounter procedure 05/30/2024 8:45 AM EDT Office Visit [facility] FM [address] [place] [address] Awilda Delatorre DO [address] [place] [address] [facility] FM 230 Start: 04-16-2024 Influenza vaccination N [facility] Start: 09-06-2019 DTaP,Tdap and Td Vaccines (8 - Td or Tdap) DTaP,Tdap and Td Vaccines (8 - Td or Tdap) [facility] Start: 04-16-2019 Influenza vaccination Flu vaccine (# 1) [place], [place] Start: 2016 Cervical cancer screen Cervical canc er screen [place], [place] Start: 2016 Screening for malign ant neoplasm of cervix Pap Smear [facility] Start: 2014 DTaP,Tdap and Td Vaccines (1 - Tdap) DTaP,Tdap and Td Vaccines (1 - Tdap) [facility] Start: 2014 Urine screening for protein Diabetes: Urine Protein Screening [facility] Start: 2013 Adult BMI Follow Up Plan Adult BMI Follow Up Plan [facility] Start: 2013 Adult BMI Screening Adult BMI Screen ing [facility] Start: 2013 Diabetic foot examination Diabetic Foot Exam [facility] Start: 2011 Chlamydia screen Chlamydia screen [place], [place] Start: 2010 HIV screen HIV screen [place], [place] Start: 2007 Depression Screening Depression Scre ening [facility] Start: 2007 Tobacco Screening Tobacco Screening [facility] Start: 2006 DTaP/Tdap/Td vaccine (1 - Tdap) DTaP/Tdap/Td vaccine (1 - Tdap) [place], [place] Start: 2006 HPV vaccine (1 - Fem tarun 2-dose series) HPV vaccine (1 - Female 2-dose series) [place], [place] Start: 2005 Glaucoma screening Diabetes: R etinopathy Screening [facility] Start: 1996 Varicella Vaccine (1 of 2 - 2-dose childhood series) Varicella Vaccine (1 of 2 - 2-dose childhood series) [place], [place] Start: 1995 Glaucoma screening Diabetic Op hthalmology Exam [facility] Start: 1995 Urine screening for protein Urine Microalbumin [facility] End: 08-14-2025 Comprehensive metabolic 2000 panel - Serum or Plasma Comprehensive metabolic panel Lab Routine with type 2 diabetes mellitus in second trimester 1 Occurrences starting 08/14/2024 until 08/14/2025 [facility] Work Phone: Comment on above: 1 Occurrences starti ng 08/14/2024 until 08/14/2025 End: 08-14-2025 ECG 12 lead ECG 12 lead ECG Routine with type 2 diabetes mellitus in second trimester Long Q-T syndrome 1 Occurrences starting 08/14/2024 until 08/14/2025 [facility] Comment on above: 1 Occurrences starti ng 08/14/2024 until 08/14/2025 End: 08-14-2025 Thyroid profile includes TSH FT4 Thyroid profile includes TSH FT4 Lab Routine with type 2 diabetes mellitus in second trimester 1 Occurrences starting 08/14/2024 until 08/14/2025 [facility] Comment on above: 1 Occurrences starti ng 08/14/2024 until 08/14/2025 Immunizations Immunization Date Immunization Notes Care Provider Marilee hicks 09-06-2009 tetanus toxoid, redu keron diphtheria toxoid, and acellular pertussis vaccine, adsorbed Darío [facility] Work Phone: [facility] 08-25-2007 meningococcal polysaccharide (groups A, C, Y and W-135) diphtheria toxoid conjugate vaccine (MCV4P) [facility] Work Phone: [facility] 08-25-2007 tetanus toxoid, redu keron diphtheria toxoid, and acellular pertussis vaccine, adsorbed [facility] Work Phone: [facility] 08-25-2007 varicella virus vaccine [facility] Work Phone: [facility] 09-06-2000 diphtheria, tetanus toxoids and acellular pertussis vaccine, unspecified formulation Darío Floro CN Work Phone: [facility] 09-06-2000 measles, mumps and r ubella virus vaccine Darío Floro CN Work Phone: [facility] 09-06-2000 poliovirus vaccine, unspecified formulation Darío Floro CN Work Phone: [facility] 12-24-1996 varicella virus vaccine Madeline gabbie Sheebao CN Work Phone: [facility] 10-12-1996 diphtheria, tetanus toxoids and acellular pertussis vaccine, unspecified formulation Darío Floro CN Work Phone: [facility] 10-12-1996 haemophilus influenz ae type b vaccine, conjugate unspecified formulation Darío Floro CN Work Phone: [facility] 10-12-1996 measles, mumps and r ubella virus vaccine Darío Floro CN Work Phone: [facility] 02-25-1996 diphtheria, tetanus toxoids and acellular pertussis vaccine, unspecified formulation Darío Floro CN Work Phone: [facility] 02-25-1996 haemophilus influenz ae type b vaccine, conjugate unspecified formulation Darío Floro CN Work Phone: [facility] 02-25-1996 hepatitis B vaccine, pediatric or pediatric/adolescent dosage Darío Sheebao CN Work Phone: [facility] 02-25-1996 poliovirus vaccine, unspecified formulation Darío Floro CN Work Phone: [facility] 1995 diphtheria, tetanus toxoids and acellular pertussis vaccine, unspecified formulation Darío Floro CN Work Phone: [facility] 1995 haemophilus influenz ae type b vaccine, conjugate unspecified formulation Darío Floro CN Work Phone: [facility] 1995 poliovirus vaccine, unspecified formulation Darío Floro CNM Work Phone: [facility] 1995 diphtheria, tetanus toxoids and acellular pertussis vaccine, unspecified formulation Darío Floro CNM Work Phone: [facility] 1995 haemophilus influenz ae type b vaccine, conjugate unspecified formulation Darío Floro CNM Work Phone: [facility] 1995 hepatitis B vaccine, pediatric or pediatric/adolescent dosage Darío Floro CNM Work Phone: [facility] 1995 poliovirus vaccine, unspecified formulation Darío Floro CNM Work Phone: [facility] 1995 hepatitis B vaccine, pediatric or pediatric/adolescent dosage Darío Floro CNM Work Phone: [facility] Healthcare Payers Date Payer Category Payer Unknown BCBS BCBS OUT OF STATE xxxxxxxxxxxx 2019-Present [address] [place] [address] xxxxxxxxxxxx [id number] 2019 [facility] BCBS [id number] 2019 [facility] Managed Care - Other [id number]. [id number] 2019 Unknown [id number] 2016 Unknown [id number]. 1.13.693.2. [id number] 1995 Unknown [id number] 2.16.840.1.734432.3.579.2. 173 1995 Unknown [id number] 2.16.840.1.819699.3.579.2. 1286 1995 Unknown [id number] 2.16.840.1.979909.3.579.2. 1286 1995 Unknown [id number] 2.16.840.1.033750.3.579.2. 1286 1995 Unknown [id number] 2.16.840.1.292997.3.579.2. 1286 1995 Unknown [id number] 2.16.840.1.032292.3.579.2. 1286 1995 Unknown [id number] 2.16.840.1.461628.3.579.2. 1286 1995 Unknown [id number] 2.16.840.1.320301.3.579.2. 1286 1995 Unknown [id number] 2.16.840.1.923474.3.579.2. 1286 1995 Unknown [id number] 2.16.840.1.749489.3.579.2. 1286 1995 Unknown [id number] 2.16.840.1.220814.3.579.2. 1286 1995 Unknown [id number] 2.16.840.1.497127.3.579.2. 1286 1995 Unknown [id number] 2.16.840.1.847647.3.579.2. 1259 1995 Unknown [id number] 2.16.840.1.622255.3.579.2. 1259 1995 Unknown [id number] 2.16.840.1.843014.3.579.2. 1259 1995 Unknown [id number] 2.16.840.1.866700.3.579.2. 1258 1995 Unknown [id number] 2.16.840.1.211969.3.579.2. 1258 1995 Unknown [id number] 2.16.840.1.650927.3.579.2. 1258 1995 Unknown [id number] 2.16.840.1.039431.3.579.2. 1258 1995 Unknown [id number] 2.16.840.1.573849.3.579.2. 1258 1995 Unknown [id number] 2.16.840.1.379976.3.579.2. 1258 1995 Unknown [id number] 2.16.840.1.833477.3.579.2. 1258 1995 Unknown [id number] 2.16.840.1.153850.3.579.2. 1258 1995 Unknown [id number] 2.16.840.1.507539.3.579.2. 1258 1995 Unknown [id number] 2.16.840.1.189343.3.579.2. 1258 1995 Unknown [id number] 2.16.840.1.910816.3.579.2. 1258 1995 Unknown [id number] 2.16.840.1.347139.3.579.2. 1258 1995 Unknown [id number] 2.16.840.1.180452.3.579.2. 1258 1995 Unknown [id number] 2.16.840.1.154232.3.579.2. 1258 1995 Unknown [id number] 2.16.840.1.712588.3.579.2. 1258 1995 Unknown [id number] 2.16.840.1.705586.3.579.2. 1258 1995 Unknown [id number] 2.16.840.1.657317.3.579.2. 1259 1995 Unknown [id number] 2.16.840.1.332031.3.579.2. 1259 Social History Date Type Detail Facility Tobacco smoking stat us NHIS Unknown if ever smoked [employer] [facility] Start: 1995 Sex Assigned At Not on file [facility] Start: 02-10-2023 End: 07-25-2024 Tobacco smoking [...] to any clubs or organizations such as roman catholic groups, unions, [...] / monthly or less. Caffeine: 1-2 cups/day [facility] Start: 1995 Sex assigned at Female [facility] Start: 02-08-2023 Gender identity Identifies as female gender (finding) [facility] Start: 05-16-2024 [facility] Start: 08-14-2024 End: 11-09-2024 Alcoholic [facility] Start: 03-19-2015 End: 07-25-2024 Sex Female (finding) [facility] Medical Equipment Procedure Code Equipment Code Equipment Origin al Text Equipment Identifier Dates [id number] Start: 11-29-2023 End: 11-28-2024 Check urine for ketones if blood sugar/glucose 200 or above daily as needed. Use as directed. [id number] Start: 08-14-2024 USE DIRECTED FIVE TIMES DAILY [id number] Start: 10-03-2024 Functional Status Date Assessment Result Facility 01-18-2025 Patient Health Quest ionnaire 2 item (PHQ-2) [Reported] [facility] 12-07-2024 Patient Health Quest ionnaire 2 item (PHQ-2) [Reported] [facility] 10-09-2024 Patient Health Quest ionnaire 2 item (PHQ-2) [Reported] [facility] Clinical Notes 05-03-2024 to 01-29-2025 Darío Banuelos [facility] - 01/29/2025 4:30 PM EDTDarío Banuelos [facility] - 01/22/2025 4:30 PM Sal Delatorre, - [...] type 2 diabetes mellitus in third trimester ([facility]) Type 2 diabetes mellitus treated with insulin ([facility]) Encounter for care of first , third trimester ([facility]) Continue vitamin. Labs reviewed. GBS negative Expected mode of delivery Follow up in 1 week for a routine visit. documented in this encounter [facility] 01-22-2025 History of Presen t illness Narrative [...] 2 diabetes mellitus treated with insulin ([facility]) Glucose log reviewed, patient states Dr Crowley adjusted her insulin as her glucose levels were going low. Med list is current in [facility]. Continue vitamin. Labs reviewed. GBS taken. Expected mode of delivery vaginal Follow up in 1 week for a routine visit. documented in this encounter [facility] 01-18-2025 History of Presen t illness [...] in the evening (1000 MG TABS) Labs [facility] HEMOGLOBIN A1C/HEMOGLOBIN.TOTAL:MFR:PT:BLD: QN: 6.1 Outpatient prescription Medication [...] morning. CONTINUOUS GLUCOSE SENSOR (DEXCOM G7 SENSOR) [facility] USE DIRECTED to test BLOOD SUGAR change [...] the patient today. documented in this encounter [facility] 01-15-2025 History of Presen t illness [...] a routine visit. documented in this encounter [facility] 01-09-2025 History of Presen t [...] a routine visit. documented in this encounter [facility] 01-01-2025 History of Presen t illness [...] little bit. Patient states her testing at [facility] was normal on Wednesday, she has had [...] a routine visit. documented in this encounter [facility] 12-26-2024 History of Presen t [...] will do all nst's and bpp's at [place] per Dr Sam Objective Physical Exam Weight: [...] a routine visit. documented in this encounter [facility] 12-25-2024 History of Presen t [...] nursing note reviewed. Exam conducted with a hospice director present. Vitals: Estimated body mass index is [...] Patient presents today for referral from Wanda Sheeba due to Type 2 Diabetes and . Patient is setup for NST/BPP Bi-Weekly/Weekly at [facility]'s office. Patient voiced that she was seen at [facility] for anatomy Scan. Advised patient that it is preferred to have NST/BPP at [facility] for co-management in . Patient is agreeable with having location changed. Order will be given to patient today to have setup at [facility]. Discussed delivery with patient and if sugars are controlled well with insulin then she will be able to delivery at 39 weeks gestation, but if sugars are not well controlled then delivery would be recommended at 38 weeks to prevent issues with placenta. Patient is currently taking Aspirin 81mg daily. FHT 145, patient to continue care with [facility] and reach out to office with any concerns. Documented by Estelle Hughes LPN on behalf of: Henry Sam DO documented in this encounter [facility] 12-11-2024 History of Presen t [...] during . Managed by Awilda Crowley in [place]. Did see MFM Objective Physical Exam Expected [...] a routine visit. documented in this encounter [facility] 12-07-2024 History of Presen t [...] in the evening (1000 MG TABS) Labs [facility] [place] HEMO[place] A1C/HEMOGLOBIN.TOTAL:MFR:PT:BLD: QN: 5.7 Outpatient prescription Medication [...] the patient today. documented in this encounter [facility] 11-15-2024 History of Presen t [...] a routine visit. documented in this encounter [facility] 11-08-2024 History of Presen t illness Narrative Reginald Reyes Date of visit: 11/08/2024 Date of : 1995 Age: 29 y.o. 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 She followed up with a pediatric urologist but no intervention was performed since the [...] Medical History: Diagnosis Date Diabetes mellitus ([facility]) Hyperlipidemia Insulin resistance Long Q-T syndrome Prolonged [...] Resource Strain: Low Risk (06/07/2024) Received from [facility] Overall Financial Resource Strain (CARDIA) Difficulty of Paying Living Expenses: Not hard at all Food Insecurity: No Food Insecurity (11/08/2024) Hunger Screening Food Insecurity - Worry: Never True Food Insecurity - Inability: Never True Transportation Needs: No Transportation Needs (06/07/2024) Received from [facility] PRAPARE - Transportation Lack of Transportation (Medical): No Lack of Transportation (Non-Medical): No Physical Activity: Sufficiently Active (06/07/2024) Received from [facility] Exercise Vital Sign Days of Exercise per Week: 5 days Minutes of Exercise per Session: 30 min Stress: No Stress Concern Present (06/07/2024) Received from [facility] [place] [facility] - Occupational Stress Questionnaire Feeling of Stress : Not at all Social Connections: Socially Integrated (06/07/2024) Received from [facility] Social Connection and Isolation Panel [NHANES] Frequency of Communication with Friends and Family: More than three times a week Frequency of Social Gatherings with Friends and Family: Three times a week Attends Latter-Day Services: More than 4 times per year Active Member of Clubs or Organizations: Yes Attends Club or Organization Meetings: More than 4 times per year Marital Status: Interpersonal Safety: Not At Risk (04/09/2023) Re[facility] from [facility], [facility] Humiliation, Afraid, Rape, and Kick questionnaire Fear of Current or Ex-Partner: No Emotionally Abused: No Physically Abused: No Sexually Abused: No Housing Instability: Low Risk (06/07/2024) Received from [facility] Housing Stability Vital Sign Unable [...] - [facility] - [facility]iology - [place], [place] - [facility] EKG 2. Hx of prolonged Q-T [...] Physician: Aye Saucedo MD [address] [place] [address] documented in this encounter [facility] 11-07-2024 Miscellaneous Notes MYCHART MESSAGE REMINDER SENT TO PT TO REMIND OF PPC APPT. documented in this encounter [facility] 11-07-2024 Telephone encounter Note MYCHART MESSAGE REMINDER SENT TO PT TO REMIND OF PPC APPT. [facility] 10-18-2024 History of Presen t illness [...] coma, without long-term current use of insulin ([facility]) Encounter for care of first , second trimester ([facility]) Continue vitamin. Labs reviewed. Rhogam GTT not doing due to already being type 2 diabetic Follow up in 4 weeks for a routine visit. documented in this encounter [facility] 10-10-2024 History of Presen t illness Narrative REASON FOR TELEMEDICINE VIDEO OFFICE VISIT: Suspected Maternal prolonged QT ruled out. HISTORY OF PRESENT ILLNESS: Reginald Reyes is a pleasant 29 y.o. G 1 P0 at 21w1d due on Estimated Date of Delivery: 02/19/25 . has been complicated with Pre gestational type 2 diabetes on insulin. Patient diabetes is managed by her special education supervisor and not by [facility]. Patient is comfortable with her special education supervisor. Blood glucose are adequately controlled. Suspected prolonged QT syndrome. Patient was told as a child so she might a borderline prolonged QT syndrome. No intervention was done. Patient then was lost for follow-up and has not seen cp bleacher operator for more than 10 years. Therefore the [...] syndrome) Type 2 diabetes mellitus without complication ([facility] [place]) Long Q-T syndrome Pre-existing type 2 diabetes [...] the morning., Disp: , Rfl: blood-glucose sensor ([employer] G7 SENSOR) device, Use to monitor blood [...] Medical History: Diagnosis Date Diabetes mellitus ([facility]) Hyperlipidemia Insulin resistance Long Q-T syndrome Prolonged [...] completion of targeted anatomy and echocardiography at [facility]. 2. Serial growth ultrasounds every 4 [...] Visit via Real-time Synchronous Audiovisual Provider Location: [facility]ICINE AT [address] [phone] Patient Location: Patient's home Patient Location [employer] Supervisor: None Video Visit Consent Statement: I discussed [...] that there are some limitations compared to [id number]-[id number]-tfgb evaluations. We elected to proceed. documented in this encounter [facility] 10-09-2024 History of Presen t illness [...] in the evening (1000 MG TABS) Labs [facility] [place] HEMO[place] A1C/HEMOGLOBIN.TOTAL:MFR:PT:BLD: QN: 5.7 Outpatient prescription Medication [...] without long-term current use of insulin ([facility]) Relevant Orders POCT glycosylated hemoglobin (Hb A1C) [...] the patient today. documented in this encounter [facility] 09-28-2024 History of Presen t [...] without long-term current use of insulin ([facility] [place]) Continue vitamin. Labs reviewed Follow up in 2 weeks for a routine visit. documented in this encounter [facility] 09-19-2024 History of Presen t illness Narrative Reginald Reyes Date of visit: 09/19/2024 Date of : 1995 Age: 29 y.o. Patient Active Problem List Diagnosis Long Q-T syndrome Abnormal glucose Insulin resistance Mixed hyperlipidemia PCOS (polycystic ovarian syndrome) Type 2 diabetes mellitus without complication ([facility]) Long Q-T syndrome Pre-existing type 2 diabetes [...] by mouth in the morning. 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 She stopped seeing a pediatric urologist age of 18 Since she is now 18 weeks we are have been asked to evaluate her for this Today's EKG shows sinus rhythm QT is measured at 382 corrected 420 milliseconds Past Medical History: Diagnosis Date Diabetes mellitus ([facility]) Hyperlipidemia Insulin resistance Long Q-T syndrome Prolonged [...] Resource Strain: Low Risk (06/07/2024) Received from [facility] Overall Financial Resource Strain (CARDIA) Difficulty of Paying Living Expenses: Not hard at all Food Insecurity: No Food Insecurity (09/19/2024) Hunger Screening Food Insecurity - Worry: Never True Food Insecurity - Inability: Never True Transportation Needs: No Transportation Needs (06/07/2024) Received from [facility] PRAPARE - Transportation Lack of Transportation (Medical): No Lack of Transportation (Non-Medical): No Physical Activity: Sufficiently Active (06/07/2024) Received from [facility] Exercise Vital Sign Days of Exercise per Week: 5 days Minutes of Exercise per Session: 30 min Stress: No Stress Concern Present (06/07/2024) Received from [facility] [place] [facility] Occupational Health - Occupational Stress Questionnaire Feeling of Stress : Not at all Social Connections: Socially Integrated (06/07/2024) Received from [facility] Social Connection and Isolation Panel [NHANES] Frequency of Communication with Friends and Family: More than three times a week Frequency of Social Gatherings with Friends and Family: Three times a week Attends Latter-Day Services: More than 4 times per year Active Member of Clubs or Organizations: Yes Attends Club or Organization Meetings: More than 4 times per year Marital Status: Interpersonal Safety: Not At Risk (04/09/2023) Re[facility] from [facility], [facility] Humiliation, Afraid, Rape, and Kick questionnaire Fear of Current or Ex-Partner: No Emotionally Abused: No Physically Abused: No Sexually Abused: No Housing Instability: Low Risk (06/07/2024) Received from [facility] Housing Stability Vital Sign Unable [...] ORAL) IMPRESSIONS/PLAN 1. Long Q-T syndrome - [facility] [place] [place] - POCT EKG - [facility] - [facility] - [place], [place]; Future 2. Type 2 diabetes mellitus without complication, unspecified whether skilled nursing insulin use ([facility]) 1. Questionable long QT syndrome -she was [...] TODAYS ORDERS Orders Placed This Encounter Procedures [facility] - [place], [place] POCT EKG FOLLOW UP No follow-ups on file. PCP: LILIANA Peralta Referring Physician: Svetlana Jack PA-C [address] [address] documented in this encounter [facility] 09-18-2024 Miscellaneous Notes Left message for patient to remind them to bring their most current medication list with them to their appointment. documented in this encounter [facility] 09-18-2024 Telephone encounter Note Left message for patient to remind them to bring their most current medication list with them to their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 Obstetrics and Gynecology 02/10/23 Screen Printer Helper Relationship Specialty Start Date End Date Darío Banuelos APRN-SADIA [address] [place] [address] PCP - General Nurse B2B Outside Sales Representative 04/15/18 Screen Printer Helper Relationship Specialty Start Date End Date Darío Banuelos APRN-SADIA [address] [place] [address] PCP - General Nurse B2B Outside Sales Representative 04/15/18 Screen Printer Helper Relationship Specialty Start Date End Date Unallocated, Danay Biggs MD [address] [place] [address] PCP - General 04/16/23 Awilda Delatorre, DO [address] [place] [address] PCP - Rafael Capo Commercial 06/16/23 Darío Banuelos CNM [address] [place] [address] Obstetrics and Gynecology 02/10/23 Screen Printer Helper Relationship Specialty Start Date End Date Unallocated, Danay Biggs MD [address] [place] [address] PCP - General 04/16/23 Awilda Delatorre, DO [address] [place] [place] [address] PCP - Rafael Capo Commercial 06/16/23 Darío Banuelos CN [address] [place] [facility] [address] Obstetrics and Gynecology 02/10/23 Screen Printer Helper Relationship Specialty Start Date End Date Unallocated, Danay Biggs MD [address] [place] [address] PCP - General 04/16/23 Awilda Delatorre, DO [address] [place] [place] [address] PCP - Rafael Capo Commercial 06/16/23 Darío Banuelos CN [address] [place] [facility] [place] [address] Obstetrics and Gynecology 02/10/23 Screen Printer Helper Relationship Specialty Start Date End Date Unallocated, Danay Biggs MD [address] [place] [address] PCP - General 04/16/23 Darío Banuelos CNM [address] [place] [facility] [place] [address] Obstetrics and Gynecology 02/10/23 Screen Printer Helper Relationship Specialty Start Date End Date Unallocated, Danay Biggs MD [address] [place] [address] PCP - General 04/16/23 Darío Banuelos CNM [address] [place] [address] Obstetrics and Gynecology 02/10/23 Screen Printer Helper Relationship Specialty Start Date End Date Unallocated, Danay Biggs MD [address] [facility] [place] [address] PCP - General 04/16/23 Darío Banuelos CNM [address] [place] [address] Obstetrics and Gynecology 02/10/23 Screen Printer Helper Relationship Specialty Start Date End Date Unallocated, Danay Biggs MD [address] [place] [address] PCP - General 04/16/23 Darío Banuelos CNM [address] [place] [address] Obstetrics and Gynecology 02/10/23 Screen Printer Helper Relationship Specialty Start Date End Date Unallocated, Danay Biggs MD [address] [facility] [place] [address] PCP - General 04/16/23 Darío Banuelos CNM [address] [place] [address] Obstetrics and Gynecology 02/10/23 Screen Printer Helper Relationship Specialty Start Date End Date Unallocated, Danay Biggs MD [address] [place] [address] PCP - General 04/16/23 Darío Banuelos CNM [address] [place] [address] Obstetrics and Gynecology 02/10/23 Screen Printer Helper Relationship Specialty Start Date End Date Unallocated, Danay Biggs MD [address] [place] [address] PCP - General 04/16/23 Darío Banuelos CNM [address] [place] [address] Obstetrics and Gynecology 02/10/23 Screen Printer Helper Relationship Specialty Start Date End Date Unallocated, Danay Biggs MD [address] [place] [address] PCP - General 04/16/23 Darío Banuelos CNM [address] [place] [address] Obstetrics and Gynecology 02/10/23 Screen Printer Helper Relationship Specialty Start Date End Date Unallocated, Danay Biggs MD [address] [place] [address] PCP - General 04/16/23 Awilda Delatorre DO [address] [place] [address] PCP - Rafael Capo Commercial 06/16/23 Darío Banuelos CNM [address] [place], [place] [address] Obstetrics and Gynecology 02/10/23 Screen Printer Helper Relationship Specialty Start Date End Date Unallocated, Noms Dian, [address] [place] [address] PCP - General 04/16/23 Awilda Delatorre DO [address] [place] [address] [place] [address] PCP - Rafael Capo Commercial 06/16/23 Darío Banuelos CNM [address] [place] [address] Obstetrics and Gynecology 02/10/23 FOR RECORDS PERTAINING [...] BE BASED ON THE PRIMARY CLINICAL RECORDS. [facility]. provides no warranty or guarantee of the accuracy or completeness of information in this document.
[2025-02-02 07:32] VITALS: BP 144/69; PULSE 67
== END 2025-02-02 07:55 | disposition home or self-care (01) ==
LOC: US 06:59 → FBC 07:00
PROVIDERS: Visit Provider Obstetrics & Gynecology
DX: O24.113 Pre-existing type 2 diabetes mellitus, in pregnancy, third trimester (principal); Z3A.37 37 weeks gestation of pregnancy
CPT/HCPCS: 76818

== ENCOUNTER 2025-02-06 07:00 | Outpatient (OUT) | payer BC, SELFPAY ==
--- OUTSIDE RECORDS SUMMARY | 2025-02-06 07:05 | XMS_ITS | CCD ---
Author Organization [facility] Care Team Providers Care [address] Magistrate Name Role Phone Unavailable Primary Care Provider Unavailabl e FLORO, DARÍO Referring Unavailable Floro CNM, Darío L Unavailable [phone] Unallocated , Noms Provider Primary Care Pro[facility] Awilda Delatorre DO Unavailable Unallocated , Noms Provider Primary Care Provi mart Floro FOOD SELECTOR-CNM, Darío Primary Care Provider SVETLANA JACK Attending [...] Primary Care Unavailable Awilda Delatorre DO Unavailable [phone] DARÍO BANUELOS Attending Unavailable PETZNICK, AWILDA M [...] long-term current use of insulin ([facility]) 15 units in the am and 25 [...] type 2 diabetes mellitus in second trimester ([facility]) 1-2 units breakfast, 5-12 units lunch/dinner (max [...] Facility US OB BPP W NON-STRESS on 02-02-2025 [place] [address] Ultrasound Report Signed Patient: REGINALD REYES MR#: [id number] : 1995 Acct:[id number] Age/Sex: 29 / F ADM Date: 02/02/25 Loc: US Attending Dr: Henry Sam D.O. Ordering Physician: Henry Sam D.O. Date of Service: 02/02/25 Procedure(s): US OB BPP w non-stress Accession Number(s): [id number] cc: Henry Sam D.O.; Physician,Non-Staff [place] [address] Patient Name: REGINALD REYES MRN: [facility]:[id number] date: 1995 Sex: F Assigned Patient Location: [facility] Current Patient Location: Accession/Order Number: [id number] Exam Date: 02/02/2025 08:16 Report Date: 02/02/2025 08:17 At the request of: HENRY SAM DO Procedure: US OB BPP w non-stress BIOPHYSICAL PROFILE: CLINICAL INFORMATION: Type II diabetes mellitus COMPARISON: 01/26/2025 There is a single live intrauterine gestation in cephalic presentation. The reported gestational age is 37 weeks 4 days. The heart rate measures 147 beats per minute. FINDINGS: TONE: 1 or [...] greater than 2 cm [Y] 2/2 DL: 15.8 cm. This is in upper normal range Total score: 8/8 US/US OB BPP w non-stress IMPRESSION: NORMAL BIOPHYSICAL PROFILE. Impression dictated by: Elle Mcleod M.D. 02/02/2025 8:17 AM Dictation Location: [place] [address] Electronically authenticated by: [id number] Y Date: 02/02/2025 08:17 Dictated By: Elle Mcleod M.D. Signed By: 02/02/25819 DD/ 6 TD/TT: Objects Conservator: [facility] Radiology, Radiologist, MD - 02/02/2025 [place] [address] Ultrasound Report Signed Patient: REGINALD REYES MR#: [id number] : 1995 Acct:[id number] Age/Sex: 29 / F ADM Date: 02/02/25 Loc: US Attending Dr: Henry Sam D.O. Ordering Physician: Henry Sam D.O. Date of Service: 02/02/25 Procedure(s): US OB BPP w non-stress Accession Number(s): [id number] cc: Henry Sam D.O.; Physician,Non-Staff Mag[place] [id number] Patient Name: REGINALD REYES MRN: [facility]:[id number] date: 1995 Sex: F Assigned Patient Location: [facility] Current Patient Location: Accession/Order Number: [id number] Exam Date: 02/02/2025 08:16 Report Date: 02/02/2025 08:17 At the request of: HENRY SAM DO Procedure: US OB BPP w non-stress BIOPHYSICAL PROFILE: CLINICAL INFORMATION: Type II diabetes mellitus COMPARISON: 01/26/2025 There is a single live intrauterine gestation in cephalic presentation. The reported gestational age is 37 weeks 4 days. The heart rate measures 147 beats per minute. FINDINGS: TONE: 1 or [...] greater than 2 cm [Y] 2/2 DL: 15.8 cm. This is in upper normal range Total score: 8/8 US/US OB BPP w non-stress IMPRESSION: NORMAL BIOPHYSICAL PROFILE. Impression dictated by: Elle Mcleod M.D. 02/02/2025 8:17 AM Dictation Location: [place] [address] Electronically authenticated by: [id number] Y Date: 02/02/2025 08:17 Dictated By: Elle Mcleod M.D. Signed By: 02/02/25819 DD/ 6 TD/TT: Objects Conservator: [facility] Radiology Study observation (narrative) [facility] US OB BPP W NON-STRESS Ordered By: Radiologist Radiology on 02-02-2025 [facility] Work Phone: US OB BPP W NON-STRESS on 01-26-2025 [place] [address] Ultrasound Report Signed Patient: REGINALD REYES MR#: [id number] : 1995 Acct:[id number] Age/Sex: 29 / F ADM Date: 01/26/25 Loc: US Attending Dr: Henry Sam D.O. Ordering Physician: Henry Sam D.O. Date of Service: 01/26/25 Procedure(s): US OB BPP w non-stress Accession Number(s): [id number] cc: Henry Sam D.O.; Physician,Non-Staff Magaly The [address] [address] Patient Name: REGINALD REYES MRN: [facility]:[id number] date: 1995 Sex: F Assigned Patient Location: [facility] Current Patient Location: Accession/Order Number: [id number] Exam Date: 01/26/2025 08:28 Report Date: 01/26/2025 [...] Mcleod M.D. 01/26/2025 8:30 AM Dictation Location: [place] [address] Electronically authenticated by: [id number] Y Date: 01/26/2025 08:30 Dictated By: Elle Mcleod M.D. Signed By: 01/26/25 0832 DD/ TD/TT: Objects Conservator: [facility] Radiology, Radiologist, - 01/26/2025 [place] [address] Ultrasound Report Signed Patient: REGINALD REYES MR#: [id number] : 1995 Acct:[id number] Age/Sex: 29 / F ADM Date: 01/26/25 Loc: US Attending Dr: Henry Sam D.O. Ordering Physician: Henry Sam D.O. Date of Service: 01/26/25 Procedure(s): US OB BPP w non-stress Accession Number(s): [id number] cc: Henry Sam D.O.; Physician,Non-Staff Mag[place] [address] Patient Name: REGINALD REYES MRN: [facility]:[id number] date: 1995 Sex: F Assigned Patient Location: [facility] Current Patient Location: Accession/Order Number: [id number] Exam Date: 01/26/2025 08:28 Report Date: 01/26/2025 [...] Mcleod M.D. 01/26/2025 8:30 AM Dictation Location: [place] [address] Electronically authenticated by: [id number] Y Date: 01/26/2025 08:30 Dictated By: Elle Mcleod M.D. Signed By: 01/26/25 0832 DD/ 9 TD/TT: Objects Conservator: [facility] [employer] Radiology Study observation (narrative) [facility] US OB BPP W NON-STRESS Ordered By: Radiologist Radiology on 01-26-2025 [facility] [employer] Work Phone: US OB BPP W NON-STRESS on 01-19-2025 [place] [address] Ultrasound Report Signed Patient: REGINALD REYES MR#: [id number] : 1995 Acct:[id number] Age/Sex: 29 / F ADM Date: 01/19/25 Loc: [facility] 250-[address]: Henry Sam D.O. Ordering Physician: Henry Sam D.O. Date of Service: 01/19/25 Procedure(s): US OB BPP w non-stress Accession Number(s): [id number] cc: Henry Sam D.O.; Physician,Non-Staff [place] [address] Patient Name: REGINALD REYES MRN: [facility]:[id number] date: 1995 Sex: F Assigned Patient Location: [facility] Current Patient Location: [facility] Accession/Order Number: [id number] Exam Date: 01/19/2025 07:35 Report Date: 01/19/2025 [...] 01/19/2025 7:37 AM Dictation Location: [place] [address] Electronically authenticated by: [id number] Y Date: 01/19/2025 07:37 Dictated By: Zak Roberson M.D. Signed By: 01/19/25 0739 DD/ 0737 TD/TT: Objects Conservator: [facility] Radiology, Radiologist, - 01/19/2025 [place] [id number] Ultrasound Report Signed Patient: REGINALD REYES MR#: [id number] : 1995 Acct:[id number] Age/Sex: 29 / F ADM Date: 01/19/25 Loc: [facility] 250-[address]: Henry Sam D.O. Ordering Physician: Henry Sam D.O. Date of Service: 01/19/25 Procedure(s): US OB BPP w non-stress Accession Number(s): [id number] cc: Henry Sam D.O.; Physician,Non-Staff [place] [address] Patient Name: REGINALD REYES MRN: [facility]:[id number] date: 1995 Sex: F Assigned Patient Location: [facility] Current Patient Location: [facility] Accession/Order Number: [id number] Exam Date: 01/19/2025 07:35 Report Date: 01/19/2025 [...] 01/19/2025 7:37 AM Dictation Location: [place] [address] Electronically authenticated by: [id number] Y Date: 01/19/2025 07:37 Dictated By: Zak Roberson M.D. Signed By: 01/19/25 0739 DD/ 0737 TD/TT: Objects Conservator: [facility] Radiology Study observation (narrative) [facility] US OB BPP W NON-STRESS Ordered By: Radiologist Radiology on 01-19-2025 [facility] Work Phone: HbA1c (Bld) [Mass fraction]o n 01-18-2025 Interpretation and review of laboratory results Normal [facility] Laboratory - Hematology and Cell countson 01-18-2025 HbA1c (Bld) [Mass fraction] 6.1 % [facility] No Panel InformationOrdered By: Radiologist Radiology on 01-12-2025 [facility] Work Phone: No Panel Informationon 01-12 Radiology Study observation (narrative) [facility] US OB BPP W NON-STRESS on 01-12-2025 [place] [address] Ultrasound Report Signed Patient: REGINALD REYES MR#: [id number] : 1995 Acct:[id number] Age/Sex: 29 / F ADM Date: 01/12/25 Loc: US Attending Dr: Henry Sam D.O. Ordering Physician: Henry Sam D.O. Date of Service: 01/12/25 Procedure(s): US OB BPP w non-stress Accession Number(s): [id number] cc: Henry Sam D.O.; Physician,Non-Staff Mag[facility] [place] [id number] Patient Name: REGINALD REYES MRN: [facility]:[id number] date: 1995 Sex: F Assigned Patient Location: [facility] Current Patient Location: [facility] Accession/Order Number: [id number] Exam Date: 01/12/2025 11:54 Report Date: 01/12/2025 [...] Mcleod M.D. 01/12/2025 12:00 PM Dictation Location: [place] [address] Electronically authenticated by: [id number] Y Date: 01/12/2025 12:00 Dictated By: Elle Mcleod M.D. Signed By: 01/12/25 1203 DD/ 1200 TD/TT: Objects Conservator: [facility] Radiology, Radiologist, MD - 01/12/2025 [place] [address] Ultrasound Report Signed Patient: REGINALD REYES MR#: [id number] : 1995 Acct:[id number] Age/Sex: 29 / F ADM Date: 01/12/25 Loc: US Attending Dr: Henry Sam D.O. Ordering Physician: Henry Sam D.O. Date of Service: 01/12/25 Procedure(s): US OB BPP w non-stress Accession Number(s): [id number] cc: Henry Sam D.O.; Physician,Non-Staff Magaly [place] [id number] Patient Name: REGINALD REYES MRN: [facility]:[id number] date: 1995 Sex: F Assigned Patient Location: [facility] Current Patient Location: [facility] Accession/Order Number: [id number] Exam Date: 01/12/2025 11:54 Report Date: 01/12/2025 [...] Mcleod M.D. 01/12/2025 12:00 PM Dictation Location: [place] [address] Electronically authenticated by: [id number] Y Date: 01/12/2025 12:00 Dictated By: Elle Mcleod M.D. Signed By: 01/12/25 1203 DD/ 1200 TD/TT: Objects Conservator: [facility] GROWTHon 01-12-2025 [place] [address] Ultrasound Report Signed Patient: REGINALD REYES MR#: [id number] : 1995 Acct:[id number] Age/Sex: 29 / F ADM Date: 01/12/25 Loc: US Attending Dr: Henry Sam D.O. Ordering Physician: Henry Sam D.O. Date of Service: 01/12/25 Procedure(s): US OB growth Accession Number(s): [id number] cc: Henry Sam D.O.; Physician,Non-Staff Magaly [place] [id number] Patient Name: REGINALD REYES MRN: [id number]:[id number] date: 1995 Sex: F Assigned Patient Location: [facility] Current Patient Location: [facility] Accession/Order Number: [id number] Exam Date: 01/12/2025 11:54 Report Date: 01/12/2025 [...] Mcleod M.D. 01/12/2025 12:00 PM Dictation Location: [place] [address] Electronically authenticated by: [id number] Y Date: 01/12/2025 12:00 Dictated By: Elle Mcleod M.D. Signed By: 01/12/25 1203 DD/ 1200 TD/TT: Objects Conservator: [facility] Radiology, Radiologist, - 01/12/2025 [place] [address] Ultrasound Report Signed Patient: REGINALD REYES MR#: [id number] : 1995 Acct:[id number] Age/Sex: 29 / F ADM Date: 01/12/25 Loc: US Attending Dr: Henry Sam D.O. Ordering Physician: Henry Sam D.O. Date of Service: 01/12/25 Procedure(s): US OB growth Accession Number(s): [id number] cc: Henry Sam D.O.; Physician,Non-Staff M.D. The [place] [id number] Patient Name: REGINALD REYES MRN: [facility]:[id number] date: 1995 Sex: F Assigned Patient Location: [facility] Current Patient Location: [facility] Accession/Order Number: [id number] Exam Date: 01/12/2025 11:54 Report Date: 01/12/2025 [...] Mcleod M.D. 01/12/2025 12:00 PM Dictation Location: [place] [address] Electronically authenticated by: [id number] Y Date: 01/12/2025 12:00 Dictated By: Elle Mcleod M.D. Signed By: 01/12/25 1203 DD/ 1200 TD/TT: Objects Conservator: [facility] Bacteria identified Cx Nom ( U)on 01-04-2025 Appearance (U) Adequate [facility] Healthcare Internal identifier for Provider [id number] [facility] Healthcare Specimen source Nom (Unsp spec) URINE [facility] STATUS FINAL [facility] Performing Organization Information Site ID: QPT Name: [facility] Address: [address] [place] [address], [address] [place] [id number] Director: Devendra Aguilar MD [facility] Laboratory - Microbiology an d Antimicrobial susceptibilityon 01-04-2025 Bacteria identified Cx Nom (U) SEE NOTE [facility] Healthcare Comment on above: Less than 10,000 CFU/mL of single Gram positive organism isolated. No further testing will be performed. If clinically indicated, recollection using a method to minimize contamination, with prompt transfer to Urine Culture Transport Tube, is recommended. US OB BPP W NON-STRESS on 12-29-2024 [place] [address] Ultrasound Report Signed Patient: REGINALD REYES MR#: [id number] : 1995 Acct:[id number] Age/Sex: 29 / F ADM Date: 12/29/24 Loc: US Attending Dr: Henry Sam D.O. Ordering Physician: Henry Sam D.O. Date of Service: 12/29/24 Procedure(s): US OB BPP w non-stress Accession Number(s): [id number] cc: Henry Sam D.O.; Physician,Non-Staff MCaitlin [address] [address] Patient Name: REGINALD REYES MRN: [id number]:[id number] date: 1995 Sex: F Assigned Patient Location: [facility] Current Patient Location: Accession/Order Number: [id number] Exam Date: 12/29/2024 09:34 Report Date: 12/29/2024 [...] 12/29/2024 9:36 AM Dictation Location: [place] [address] Electronically authenticated by: [id number] Y Date: 12/29/2024 09:36 Dictated By: Zak Roberson M.D. Signed By: 12/29/2438 DD/ TD/TT: Objects Conservator: [facility] Radiology, Radiologist, MD - 12/29/2024 [place] [address] Ultrasound Report Signed Patient: REGINALD REYES MR#: [id number] : 1995 Acct:[id number] Age/Sex: 29 / F ADM Date: 12/29/24 Loc: US Attending Dr: Henry Sam D.O. Ordering Physician: Henry Sam D.O. Date of Service: 12/29/24 Procedure(s): US OB BPP w non-stress Accession Number(s): [id number] cc: Henry Sam D.O.; Physician,Non-Staff [place] The [address] [address] Patient Name: REGINALD REYES MRN: [facility]:[id number] date: 1995 Sex: F Assigned Patient Location: [facility] Current Patient Location: Accession/Order Number: [id number] Exam Date: 12/29/2024 09:34 Report Date: 12/29/2024 [...] Roberson M.D. 12/29/2024 9:36 AM Dictation Location: [facility] Electronically authenticated by: [id number] Y Date: 12/29/2024 09:36 Dictated By: Zak Roberson M.D. Signed By: 12/29/24 0938 DD/ TD/TT: Objects Conservator: [facility] Radiology Study observation (narrative) [facility] US OB BPP W NON-STRESS Ordered By: Radiologist Radiology on 12-29-2024 [facility] Work Phone: Urinalysis macro (dipstick) panel (U)on 12-25-2024 Bilirubin, UA Negative Negative - 4(70) +++ mg/dL [facility] Blood, UA Negative Negative - 50 Skinny/mcL [facility] Clarity, UA Clear [facility] Color, UA Yellow [facility] Glucose, UA Negative Negative - 1999(110) ++++ mg/dL [facility] Interpretation and review of laboratory results Normal [facility] Ketones, UA Negative Negative - 160(16) ++++ mg/dL [facility] Leukocytes, UA Positive Negative - 500+++ Cal/mcL [facility] Comment on above: small Nitrite, UA Negative Negative - Positive [facility] pH, UA 6.5 5 - 9 [facility] Protein, UA Negative Negative - 1999(20) ++++ mg/dL [facility] Spec Grav, UA 1.02 1 - 1.03 [facility] Urobilinogen, UA 1.0 0.2 - 12 mg/dL [facility] US OB FOLLOW UP TRANSABDOMIN AL APPROACHon [...] II, MD, PHD at 12-Dec-2024 07:13:14 PM [facility] Normal Not Available POCT EKGOrdered By: Abby Andino on 11-08-2024 [facility] HbA1c (Bld) [Mass fraction]o n 10-09-2024 Interpretation and review of laboratory results Normal [facility] Laboratory - Hematology and Cell countson 10-09-2024 HbA1c (Bld) [Mass fraction] 5.7 % [facility] POCT EKGon 09-19-2024 [facility] No Panel Informationon 08-14 [facility] Chlamydia/GC by PCR ThinPrep fluidon 07-11-2024 Chlamydia Dna(Pcr) Negative [facility] Gonorrhoeae Dna(Pcr) Negative [facility] Drug Screen, Urineon 024 Amphetamine/Methampheta mine Negative [facility] Opiate Quantitative Urine Negative [facility] HIV 1&2 AB/AG Screen (P24 AG )on 07-10-2024 HIV 1&2 AB/AG Non-Reactive [facility] Hemoglobin A1con 07-10-2024 HbA1c (Bld) [Mass fraction] 6.4 % Abnormal 4.0 - 6.0 % [facility] Interpretation and review of laboratory results Abnormal [facility] No Panel Informationon 07-10 [facility] Type and screenon 07-10-2024 Abo/Rh(D) Positive [facility] US OB < 14 WEEKS EARLYon US [...] Interpretation and review of laboratory results Normal [facility] Laboratory - Hematology and Cell countson 06-08-2024 HbA1c (Bld) [Mass fraction] 6.2 % [facility] Cytology Cervical or vaginal smear or scraping studyOrdered By: Christen Nettles on 02-10-2023 [facility] Hemoglobin A1Con 07-05-2019 HbA1c (Bld) [Mass fraction] 5.9 % Normal 4.8-5.9 [facility] Comment on above: Performed By: #### G LYHGB, LIPR #### [address] [place] [address] Telephone Installer: Ruslan Fernando MD #### INSU #### [address] [address] Telephone Installer: Marv Guzman MD [address] [place] [address] Telephone Installer: Ruslan Fernando MD HbA1c (Bld) [Mass fraction] 123 mg/dL Normal [facility] Comment on above: Result Comment: The ADA and AACC recommend providing the estimated average glucose result to permit better patient understanding of their HBA1c result. Performed By: #### G LYHGAmanda, LIPR #### [address] [place] [address] Telephone Installer: Ruslan Fernando MD #### INSU #### [address] [address] Telephone Installer: Marv Guzman MD [address] [place] [address] Telephone Installer: Ruslan Fernando MD Glucose [Mass/Vol] 123 mg/dL [place], [place] Comment on above: The ADA and AACC rec ommend providing the estimated average glucose result to permit better patient understanding of their HBA1c result. HbA1c (Bld) [Mass fraction] 5.9 % 4.8 - 5.9 % [place], [place] Insulinon 07-05-2019 Insulin 36.2 mU/L Normal [facility] Comment on above: Performed By: #### G LYHGB, LIPR #### [address] [place], [place] [phone] Telephone Installer: Ruslan Fernando MD #### INSU #### [place] [address] [place], [place] [phone] Telephone Installer: Marv Guzman MD [facility] [address] [place] [address] Dr[address] [place], [place] [phone] Telephone Installer: Ruslan Fernando MD Reference Range [facility] Comment on above: Result Comment: Fast in.6-24.9 30 min: 20-112 60 min: 29-88 90 min: -84 120 min: 22-79 Performed By: #### G LYHGB, LIPR #### [facility] [address] [place] [address] Dr[address] [place], [place] [phone] Telephone Installer: Ruslan Fernando MD #### INSU #### [facility] [address] [place], [place] [phone] Telephone Installer: Marv Guzman MD [address] [place], [place] [phone] Telephone Installer: Ruslan Fernando MD Collection Info. 0830 [facility] Comment on above: Performed By: #### G LYHGB, LIPR #### [address] [place], [place] [phone] Telephone Installer: Ruslan Fernando MD #### INSU #### [place] [address] [place] [address] Telephone Installer: Marv Guzman MD [address] [place], [place] [phone] Telephone Installer: Ruslan Fernando MD Insulin, totalon 07-05-2019 INR Coag (Bld) [Relative time] [place], [place] Comment on above: Fastin.6-24.9 30 min: 20-112 60 min: - 90 min: -84 120 min: 22-79 Insulin 36.2 mU/L [place] Insulin Comment [address] [place], [place] Lipid Panelon 07-05-2019 Cholesterol [Mass/Vol] 204 mg/dL High <200 [place], [place] Comment on above: Cholesterol Guidelines: <200 Desirable 200-240 Borderline >240 Undesirable Cholesterol in HDL [Mass/Vol] 35 mg/dL Low >40 [place] Comment on above: HDL Guidelines: <40 Undesirable 40-59 Borderline >59 Desirable Cholesterol in LDL [Mass/Vol] 102 mg/dL 0 - 130 mg/dL [place] Comment on above: LDL Guidelines: <100 Desirable 100-129 Near to/above Desirable 130-159 Borderline >159 Undesirable Direct (measured) LDL and calculated LDL are not interchangeable tests. Cholesterol in VLDL [Mass/Vol] NOT REPORTED High 1 - 30 mg/dL [place] Cholesterol.total/Perla sterol in HDL [Mass ratio] 5.8 {ratio} High <5 [place], [place] Interpretation and review of laboratory results Abnormal [place] Triglyceride [Mass/Vol] 336 mg/dL High <150 M [place], [place] Comment on above: Triglyceride Guidelines: <150 Desirable 150-199 Borderline 200-499 High >499 Very high Based on AHA Guidelines for fasting triglyceride, May 2012. Lipid Profileon 07-05-2019 Cholesterol [Mass/Vol] 204 mg/dL High <200 [facility] Comment on above: Result Comment: Cholesterol Guidelines: <200 Desirable 200-240 Borderline >240 Undesirable Performed By: #### G LYHGB, LIPR #### [facility] [address] [place] [address] [place] [address] Telephone Installer: Ruslan Fernando MD #### INSU #### [address] [phone] Telephone Installer: Marv Guzman MD [facility] [address] [place] [address] Telephone Installer: Ruslan Fernando MD Cholesterol in HDL [Mass/Vol] 35 mg/dL Low >40 [facility] Comment on above: Result Comment: HDL Guidelines: <40 Undesirable 40-59 Borderline >59 Desirable Performed By: #### G LYHGB, LIPR #### [facility] [address] [place] [address] Telephone Installer: Ruslan Fernando MD #### INSU #### [facility] [address] [place] [address] Telephone Installer: Marv Guzman MD [address] [place], [place] [phone] Telephone Installer: Ruslan Fernando MD Cholesterol in LDL [Mass/Vol] 102 mg/dL Normal 0-130 [facility] Comment on above: Result Comment: LDL Guidelines: <100 Desirable 100-129 Near to/above Desirable 130-159 Borderline >159 Undesirable Direct (measured) LDL and calculated LDL are not interchangeable tests. Performed By: #### G LYHGB, LIPR #### [address] [place], [place] [phone] Telephone Installer: Ruslan Fernando MD #### INSU #### [address] [address] Telephone Installer: Marv Guzman MD [address] [place] [id number] Telephone Installer: Ruslan Fernando MD Cholesterol.total/Perla sterol in HDL [Mass ratio] 5.8 {ratio} High <5 [facility] Comment on above: Performed By: #### G LYHGB, LIPR #### [address] [place], [place] [id number] Telephone Installer: Ruslan Fernando MD #### INSU #### [address] [address] Telephone Installer: Marv Guzman MD [address] [place], [place] [id number] Telephone Installer: Ruslan Fernando MD Triglyceride [Mass/Vol] 336 mg/dL High <150 M [facility] Comment on above: Result Comment: Triglyceride Guidelines: <150 Desirable 150-199 Borderline 200-499 High >499 Very high Based on AHA Guidelines for fasting triglyceride, May 2012. Performed By: #### G LYHGB, LIPR #### [address] [place], [place] [id number] Telephone Installer: Ruslan Fernando MD #### INSU #### [facility] [address] [place], [place] [id number] Telephone Installer: Marv Guzman MD [facility] [address] [place], [place] [id number] Telephone Installer: Ruslan Fernando MD Cholesterol in VLDL [Mass/Vol] NOT REPORTED Normal 09-14 [facility] Comment on above: Performed By: #### G LYHGB, LIPR #### [address] [place], [place] [id number] Telephone Installer: Ruslan Fernando MD #### INSU #### [facility] [address] [place], [place] [id number] Telephone Installer: Marv Guzman MD [address] [place], [place] [id number] Telephone Installer: Ruslan Fernando MD Vital Signs Date Time Vital Sign Value Performing Clinician Facility 01-29-2025 16:33-0400 Body mass index (BMI) [Ratio] 34.72 kg/m2 Darío Floro CNM Work Phone: [facility] 01-29-2025 16:33-0400 Body weight 109.77 kg Darío Floro CNM Work Phone: [facility] 01-29-2025 16:33-0400 Diastolic blood pressure 60 mm[Hg] Darío Floro CNM Work Phone: [facility] 01-29-2025 16:33-0400 Systolic blood pressure 120 mm[Hg] Darío Floro CNM Work Phone: [facility] 01-22-2025 16:32-0400 Body mass index (BMI) [Ratio] 34.44 kg/m2 Darío Floro CNM Work Phone: [facility] 01-22-2025 16:32-0400 Body weight 108.86 kg Darío Floro CNM Work Phone: [facility] 01-22-2025 16:32-0400 Diastolic blood pressure 70 mm[Hg] Darío Banuelos CNM Work Phone: [facility] 01-22-2025 16:32-0400 Systolic blood pressure 120 mm[Hg] Darío Banuelos CNM Work Phone: [facility] 01-18-2025 08:28-0400 Body height 177.8 cm Awilda Petznick DO Work Phone: [facility] 01-18-2025 08:28-0400 Body mass index (BMI) [Ratio] 34.44 kg/m2 Awilda Petznick DO Work Phone: [facility] 01-18-2025 08:28-0400 Body temperature 98.01 [degF] Awilda Petznick DO Work Phone: [facility] 01-18-2025 08:28-0400 Body weight 108.86 kg Awilda Petznick DO Work Phone: [facility] 01-18-2025 08:28-0400 Diastolic blood pressure 66 mm[Hg] Awilda Petznick DO Work Phone: [facility] 01-18-2025 08:28-0400 Heart rate 88 /min Awilda Petznick DO Work Phone: [facility] 01-18-2025 08:28-0400 SaO2% (BldA) [Mass fraction] 98 % Awilda Petznick DO Work Phone: [facility] 01-18-2025 08:28-0400 Systolic blood pressure 118 mm[Hg] Awilda Petznick DO Work Phone: [facility] 01-15-2025 16:36-0400 Body mass index (BMI) [Ratio] 34.87 kg/m2 Darío Banuelos CNM Work Phone: [facility] 01-15-2025 16:36-0400 Body weight 110.22 kg Darío BRANDM Work Phone: [facility] 01-15-2025 16:36-0400 Diastolic blood pressure 78 mm[Hg] Darío Floro CNM Work Phone: [facility] 01-15-2025 16:36-0400 Systolic blood pressure 120 mm[Hg] Darío Floro CNM Work Phone: [facility] 01-09-2025 16:34-0400 Body mass index (BMI) [Ratio] 34.72 kg/m2 Darío Floro CNM Work Phone: [facility] 01-09-2025 16:34-0400 Body weight 109.77 kg Darío Floro CNM Work Phone: [facility] 01-09-2025 16:34-0400 Diastolic blood pressure 74 mm[Hg] Darío Floro CNM Work Phone: [facility] 01-09-2025 16:34-0400 Systolic blood pressure 120 mm[Hg] Darío Floro CNM Work Phone: [facility] 01-01-2025 16:33-0400 Body mass index (BMI) [Ratio] 34.29 kg/m2 Darío Floro CNM Work Phone: [facility] 01-01-2025 16:33-0400 Body weight 108.41 kg Darío Floro CNM Work Phone: [facility] 01-01-2025 16:33-0400 Diastolic blood pressure 72 mm[Hg] Darío Floro CNM Work Phone: [facility] 01-01-2025 16:33-0400 Systolic blood pressure 120 mm[Hg] Darío Floro CNM Work Phone: [facility] 12-26-2024 16:02-0400 Body mass index (BMI) [Ratio] 34.15 kg/m2 Darío Floro CNM Work Phone: [facility] 12-26-2024 16:02-0400 Body weight 107.96 kg Darío Floro CNM Work Phone: [facility] 12-26-2024 16:02-0400 Diastolic blood pressure 74 mm[Hg] Darío Banuelos CNM Work Phone: [facility] 12-26-2024 16:02-0400 Systolic blood pressure 116 mm[Hg] Darío Banuelos CNM Work Phone: [facility] 12-11-2024 15:56-0400 Diastolic blood pressure 70 mm[Hg] Darío Banuelos CNM Work Phone: [facility] 12-11-2024 15:56-0400 Systolic blood pressure 120 mm[Hg] Darío Banuelos CNM Work Phone: [facility] 12-07-2024 08:17-0400 Body height 177.8 cm Awilda Petznick DO Work Phone: [facility] 12-07-2024 08:17-0400 Body temperature 97.9 [degF] Awilda Petznick DO Work Phone: [facility] 12-07-2024 08:17-0400 Diastolic blood pressure 66 mm[Hg] Awilda Petznick DO Work Phone: [facility] 12-07-2024 08:17-0400 Heart rate 86 /min Awilda Petznick DO Work Phone: [facility] 12-07-2024 08:17-0400 SaO2% (BldA) [Mass fraction] 98 % Awilda Petznick DO Work Phone: [facility] 12-07-2024 08:17-0400 Systolic blood pressure 126 mm[Hg] Awilda Petznick DO Work Phone: [facility] 11-15-2024 16:31-0400 Body mass index (BMI) [Ratio] 34.44 kg/m2 Darío Banuelos CNM Work Phone: [facility] 11-15-2024 16:31-0400 Body weight 108.86 kg Darío BRANDM Work Phone: [facility] 11-15-2024 16:31-0400 Diastolic blood pressure 78 mm[Hg] Darío Banuelos CNM Work Phone: [facility] 11-15-2024 16:31-0400 Systolic blood pressure 120 mm[Hg] Darío Banuelos CNM Work Phone: [facility] 11-08-2024 09:17-0400 Body height 177.8 cm Tricia Rowland MD Work Phone: [facility] 11-08-2024 09:17-0400 Body mass index (BMI) [Ratio] 34.06 kg/m2 Tricia Rowland MD Work Phone: [facility] 11-08-2024 09:17-0400 Body weight 107.68 kg Tricia Rowland MD Work Phone: [facility] 11-08-2024 09:17-0400 Diastolic blood pressure 64 mm[Hg] Tricia Rowland MD Work Phone: [facility] 11-08-2024 09:17-0400 Heart rate 80 /min Tricia Rowland MD Work Phone: [facility] 11-08-2024 09:17-0400 SaO2% (BldA) [Mass fraction] 98 % Tricia Rowland MD Work Phone: [facility] 11-08-2024 09:17-0400 Systolic blood pressure 128 mm[Hg] Tricia Rowland MD Work Phone: [facility] 10-18-2024 16:37-0500 Body mass index (BMI) [Ratio] 34.15 kg/m2 Darío Díazo CNM Work Phone: [facility] 10-18-2024 16:37-0500 Body weight 107.96 kg Darío Banuelos CNM Work Phone: [facility] 10-18-2024 16:37-0500 Diastolic blood pressure 60 mm[Hg] Darío Díazo CNM Work Phone: [facility] 10-18-2024 16:37-0500 Systolic blood pressure 120 mm[Hg] Darío Díazo CNM Work Phone: [facility] 10-09-2024 15:40-0500 Body height 177.8 cm Awilda Petznick DO Work Phone: [facility] 10-09-2024 15:40-0500 Body mass index (BMI) [Ratio] 34.01 kg/m2 Awilda Petznick DO Work Phone: [facility] 10-09-2024 15:40-0500 Body temperature 98.2 [degF] Wailda Petznick DO Work Phone: [facility] 10-09-2024 15:40-0500 Body weight 107.5 kg Awilda Petznick DO Work Phone: [facility] 10-09-2024 15:40-0500 Diastolic blood pressure 66 mm[Hg] Awilda Petznick DO Work Phone: [facility] 10-09-2024 15:40-0500 Heart rate 98 /min Awilda Petznick DO Work Phone: [facility] 10-09-2024 15:40-0500 SaO2% (BldA) [Mass fraction] 98 % Awilda Petznick DO Work Phone: [facility] 10-09-2024 15:40-0500 Systolic blood pressure 128 mm[Hg] Awilda Petznick DO Work Phone: [facility] 09-28-2024 16:17-0500 Body mass index (BMI) [Ratio] 34.58 kg/m2 Darío Díazo CNM Work Phone: [facility] 09-28-2024 16:17-0500 Body weight 109.32 kg Darío Díazo CNM Work Phone: [facility] 09-28-2024 16:17-0500 Diastolic blood pressure 70 mm[Hg] Darío Díazo CNM Work Phone: [facility] 09-28-2024 16:17-0500 Systolic blood pressure 120 mm[Hg] Darío Banuelos CNM Work Phone: [facility] 09-19-2024 10:31-0500 Body height 177.8 cm Aye Saucedo MD Work Phone: [facility] 09-19-2024 10:31-0500 Body mass index (BMI) [Ratio] 34.15 kg/m2 Aye Saucedo MD Work Phone: [facility] 09-19-2024 10:31-0500 Body weight 107.96 kg Aye Saucedo MD Work Phone: [facility] 09-19-2024 10:31-0500 Diastolic blood pressure 76 mm[Hg] Aye Saucedo MD Work Phone: [facility] 09-19-2024 10:31-0500 Heart rate 85 /min Aye Saucedo MD Work Phone: [facility] 09-19-2024 10:31-0500 SaO2% (BldA) [Mass fraction] 98 % Aye Saucedo MD Work Phone: [facility] 09-19-2024 10:31-0500 Systolic blood pressure 122 mm[Hg] Aye Saucedo MD Work Phone: [facility] 09-11-2024 08:12-0500 Body mass index (BMI) [Ratio] 34.29 kg/m2 Clarke Modi MD Work Phone: [facility] 09-11-2024 08:12-0500 Body weight 108.41 kg Clarke Modi MD Work Phone: [facility] 09-11-2024 08:12-0500 Diastolic blood pressure 81 mm[Hg] Clarke Modi MD Work Phone: [facility] 09-11-2024 08:12-0500 Heart rate 80 /min Clarke Modi MD Work Phone: [facility] 09-11-2024 08:12-0500 Systolic blood pressure 122 mm[Hg] Clarke Modi MD Work Phone: [facility] 09-01-2024 08:54-0500 Body height 177.8 cm Awilda Petznick DO Work Phone: [facility] 09-01-2024 08:54-0500 Body mass index (BMI) [Ratio] 34.44 kg/m2 Awilda Petznick DO Work Phone: [facility] 09-01-2024 08:54-0500 Body temperature 98.49 [degF] Awilda Petznick DO Work Phone: [facility] 09-01-2024 08:54-0500 Body weight 108.86 kg Awilda Petznick DO Work Phone: [facility] 09-01-2024 08:54-0500 Diastolic blood pressure 72 mm[Hg] Awilda Petznick DO Work Phone: [facility] 09-01-2024 08:54-0500 Heart rate 92 /min Awilda Petznick DO Work Phone: [facility] 09-01-2024 08:54-0500 SaO2% (BldA) [Mass fraction] 97 % Awilda Petznick DO Work Phone: [facility] 09-01-2024 08:54-0500 Systolic blood pressure 126 mm[Hg] Awilda Petznick DO Work Phone: [facility] 08-30-2024 16:08-0500 Body mass index (BMI) [Ratio] 34.58 kg/m2 Darío Sheebao CNM Work Phone: [facility] 08-30-2024 16:08-0500 Body weight 109.32 kg Darío Sheebao CNM Work Phone: [facility] 08-30-2024 16:08-0500 Diastolic blood pressure 68 mm[Hg] Darío Sheebao CNM Work Phone: [facility] 08-30-2024 16:08-0500 Systolic blood pressure 120 mm[Hg] Darío Díazo CNM Work Phone: [facility] 08-14-2024 10:40-0500 Body height 177.8 cm Svetlana Lavoy PA-C Work Phone: [facility] 08-14-2024 10:40-0500 Body mass index (BMI) [Ratio] 34.72 kg/m2 Svetlana Lavoy PA-C Work Phone: [facility] 08-14-2024 10:40-0500 Body weight 109.77 kg Svetlana Lavoy PA-C Work Phone: [facility] 08-14-2024 10:40-0500 Diastolic blood pressure 68 mm[Hg] Svetlana Lavoy PA-C Work Phone: [facility] 08-14-2024 10:40-0500 Heart rate 86 /min Svetlana Lavoy PA-C Work Phone: [facility] 08-14-2024 10:40-0500 Systolic blood pressure 134 mm[Hg] Svetlana Lavoy PA-C Work Phone: [facility] 08-14-2024 09:42-0500 Body height 177.8 cm Shauna Denny RN Work Phone: [facility] 08-14-2024 09:41-0500 Body mass index (BMI) [Ratio] 34.72 kg/m2 Shauna Denny RN Work Phone: [facility] 08-14-2024 09:41-0500 Body weight 109.77 kg Shauna Denny RN Work Phone: [facility] 08-03-2024 08:36-0500 Body mass index (BMI) [Ratio] 35.3 kg/m2 Darío Floro CNM Work Phone: [facility] 08-03-2024 08:36-0500 Body weight 111.58 kg Darío Floro CNM Work Phone: [facility] 08-03-2024 08:36-0500 Diastolic blood pressure 80 mm[Hg] Darío Sheebao CNM Work Phone: [facility] 08-03-2024 08:36-0500 Systolic blood pressure 122 mm[Hg] Darío Sheebao CNM Work Phone: [facility] 07-10-2024 15:43-0500 Body mass index (BMI) [Ratio] 35.3 kg/m2 Darío Sheebao CNM Work Phone: [facility] 07-10-2024 15:43-0500 Body weight 111.58 kg Darío Sheebao CNM Work Phone: [facility] 07-10-2024 15:43-0500 Diastolic blood pressure 76 mm[Hg] Darío Sheebao CNM Work Phone: [facility] 07-10-2024 15:43-0500 Systolic blood pressure 120 mm[Hg] Darío Sheebao CNM Work Phone: [facility] 06-08-2024 14:04-0400 Body height 177.8 cm Awilda Petznick DO Work Phone: [facility] 06-08-2024 14:04-0400 Body mass index (BMI) [Ratio] 35.01 kg/m2 Awilda Petznick DO Work Phone: [facility] 06-08-2024 14:04-0400 Body temperature 98.49 [degF] Awilda Petznick DO Work Phone: [facility] 06-08-2024 14:04-0400 Body weight 110.68 kg Awilda Petznick DO Work Phone: [facility] 06-08-2024 14:04-0400 Diastolic blood pressure 72 mm[Hg] Awilda Petznick DO Work Phone: [facility] 06-08-2024 14:04-0400 Heart rate 87 /min Awilda Petznick DO Work Phone: [facility] 06-08-2024 14:04-0400 SaO2% (BldA) [Mass fraction] 98 % Awilda Petznick DO Work Phone: [facility] 06-08-2024 14:04-0400 Systolic blood pressure 138 mm[Hg] Awilda Johansenick DO Work Phone: [facility] Encounters Encounter Date Encounter Type Care Provider Facility Start: 02-02-2025 End: 02-02-2025 Clinisync Result Encounter Henry Flaco DO Work Phone: [facility] Unsolicited Start: 02-02-2025 End: 02-02-2025 Clinisync Result Encounter Henry Flaco DO Work Phone: [facility] Unsolicited Start: 01-29-2025 End: 01-29-2025 Subsequent care visit Darío Nadine Floro CNM Work Phone: [facility] Comment on above: with type 2 diabetes mellitus in third trimester ([facility]) (Primary Dx); Type 2 diabetes mellitus treated with insulin (HCC); Encounter for care of first , third trimester ([facility]) Start: 01-29-2025 End: 01-29-2025 ambulatory DARÍO L FLORO Not Available Start: 01-29-2025 End: 01-29-2025 Bamboo flowsheet Darío L Floro CNM Work Phone: [facility] Start: 01-29-2025 End: 01-29-2025 Bamboo flowsheet Darío L Floro CNM Work Phone: [facility] Start: 01-26-2025 End: 01-26-2025 Clinisync Result Encounter Henry Flaco DO Work Phone: [facility] Unsolicited Start: 01-26-2025 End: 01-26-2025 Clinisync Result Encounter Henry Flaco DO Work Phone: [facility] Unsolicited Start: 01-22-2025 End: 01-22-2025 ambulatory DARÍO L FLORO Not Available Start: 01-22-2025 End: 01-22-2025 Subsequent care visit Darío Banuelos CNM Work Phone: [facility] Comment on above: screening for streptococcus B (Primary Dx); with type 2 diabetes mellitus in third trimester; Type 2 diabetes mellitus treated with insulin ([facility]) Start: 01-22-2025 [...] 01-15-2025 End: 01-15-2025 Subsequent care visit Darío Banuelos CNM Work Phone: [facility] Comment on above: Type 2 diabetes guerrero itus without complication, without long- term current use of insulin (Primary Dx); with type 2 diabetes mellitus in third trimester Start: 01-15-2025 End: 01-15-2025 ambulatory DARÍO DÍAZO Not Available Start: 01-15-2025 End: 01-15-2025 Bamboo flowsheet Darío Díazo CNM Work Phone: [facility] Start: 01-15-2025 End: 01-15-2025 Bamboo flowsheet Darío L Floro CNM Work Phone: [facility] Start: 01-12-2025 End: 01-12-2025 Clinisync Result Encounter Henry Sam DO Work Phone: [facility] Unsolicited Start: 01-12-2025 End: 01-12-2025 Clinisync Result Encounter Henry Arringtono DO Work Phone: [facility] Unsolicited Start: 01-09-2025 End: 01-09-2025 ambulatory DARÍO L FLORO Not Available Start: 01-09-2025 End: 01-09-2025 Subsequent care visit Darío Díazo CNM Work Phone: [facility] Comment on above: Type 2 diabetes guerrero itus treated with insulin ([facility]) (Primary Dx); Encounter for care of first , third trimester Start: 01-09-2025 End: 01-09-2025 Bamboo flowsheet Darío L Floro CNM Work Phone: [facility] Start: 01-09-2025 End: 01-09-2025 Bamboo flowsheet Darío L Floro CNM Work Phone: [facility] Start: 01-01-2025 End: 01-01-2025 ambulatory DARÍO L FLORO Not Available Start: 01-01-2025 End: 01-01-2025 Subsequent care visit Daríomago Díazo CNM Work Phone: [facility] [...] diabetes mellitus treated with insulin ([facility]) Start: 12-26-2024 End: 12-26-2024 Bamboo flowsheet Darío Nadine Díazo CNM Work Phone: [facility] Start: 12-26-2024 End: 12-26-2024 Bamboo flowsheet Darío Nadine Floro CNM Work [...] 12-07-2024 Office outpatient visit 15 minutes Awilda Guy Den DO Work Phone: [phone] Comment on above: with type 2 diabetes mellitus in third trimester (Primary Dx); with type 2 diabetes mellitus in second trimester Start: 12-07-2024 End: 12-07-2024 ambulatory AWILDA GARCESISABELLICK Not Available Start: 11-15-2024 End: 11-15-2024 [...] Aye Saucedo MD Work Phone: [facility] Comment on above: Long Q-T syndrome (P rimary Dx); Hx of prolonged Q-T interval on ECG Start: 11-08-2024 End: 11-08-2024 ambulatory [facility] Start: 11-07-2024 End: 11-07-2024 Telephone encounter Abby Sina [facility] Start: 10-31-2024 End: 10-31-2024 ambulatory [facility] Start: 10-18-2024 End: 10-18-2024 Subsequent care visit Darío Banuelos CNM Work Phone: [facility] Comment on above: Type 2 diabetes guerrero itus with hyperosmolarity without coma, without long-term current use of insulin ([facility]) (Primary Dx); Encounter for care of first , second trimester ([facility]) Start: 10-18-2024 End: 10-18-2024 ambulatory DARÍO BANUELOS [...] (Primary Dx) Start: 10-10-2024 End: 10-10-[address] [facility] Start: 10-09-2024 End: 10-09-2024 Office outpatient visit 15 minutes Awilda Delatorre DO Work Phone: [phone] Comment on above: with type 2 diabetes mellitus in second trimester (Primary Dx); Type 2 diabetes mellitus without complication, without long-term current use of insulin ([facility]) Start: 10-09-2024 End: 10-09-2024 ambulatory AWILDA DELATORRE Not Available Start: 10-03-2024 End: 10-03-2024 ambulatory [facility] Start: 09-28-2024 End: 09-28-2024 Subsequent care visit Darío Banuelos CNM Work Phone: [facility] Comment on above: Encounter for prenat al care of first , second trimester (Primary Dx); Type 2 diabetes mellitus without complication, without long-term current use of insulin ([facility]) Start: 09-28-2024 End: 09-28-2024 ambulatory DARÍO BANUELOS Not Available Start: 09-28-2024 End: 09-28-2024 Bamboo flowsheet Darío Banuelos CNM Work Phone: [facility] Start: 09-28-2024 End: 09-28-2024 Bamboo flowsheet Darío Banuelos CNM Work Phone: [facility] Start: 09-19-2024 End: 09-19-2024 Office consultation new/estab patient 40 min Jacque Schneider MD Work Phone: [facility] Comment on above: Long Q-T syndrome (P rimary Dx); Type 2 diabetes mellitus without complication, unspecified whether detention insulin use ([facility]) Start: 09-19-2024 End: 09-19-2024 [facility] Start: 09-18-2024 End: 09-18-2024 Telephone encounter Abby Andino CMA [facility] Start: 09-14-2024 End: 09-14-2024 Chart abstracting Jacque Schneider MD Work [facility] Start: 09-11-2024 End: 09-11-2024 Telephone encounter Yudelka Randall RN [facility] Start: 09-11-2024 End: 09-11-2024 Office outpatient visit 25 minutes Clarke Modi MD Work Phone: [facility] Comment on above: Pre-existing type 2 diabetes mellitus during in second trimester (Primary Dx); Long Q-T syndrome Start: 09-11-2024 End: 09-11-2024 ambulatory CLARKE MODI [facility] Start: 09-05-2024 End: 09-05-2024 Telephone [...] without long- term current use of insulin ([facility]) Start: 08-28-2024 End: 08-28-2024 Telephone encounter Donna Posadas RN [facility] Start: 08-23-2024 End: 08-23-2024 Office outpatient visit 25 minutes Ariella Davissylvia PIERRE Work Phone: [facility] Comment on above: Type 2 diabetes guerrero itus without complication, unspecified whether detention insulin use ([facility]) (Primary Dx) Start: 08-23-2024 End: 08-23-2024 ambulatory ARIELLA MAHI [facility] Start: 08-14-2024 End: 08-14-2024 [...] Start: 08-03-2024 End: 08-03-2024 Subsequent care visit Adrío Nadine Díazo CNM Work Phone: [facility] Comment on above: Encounter for prenat al care of first , first trimester (Primary Dx); Type 2 diabetes mellitus with hyperosmolarity without coma, without long-term current use of insulin ([facility]) Start: 08-03-2024 [...] term current use of insulin ([facility]) Start: 06-08-2024 End: 06-08-2024 ambulatory AWILDA DELATORRE Not Available Start: 05-03-2024 End: 05-03-2024 Telephone encounter Darío Banuelos CNM Work Phone: [facility] Start: 02-28-2024 End: 02-28-2024 ambulatory AWILDA DELATORRE Not Available Start: 07-05-2019 End: 07-06-2019 Patient encounter procedure DARÍOTESHA BANUELOS [facility] Start: 07-05-2019 End: 07-05-2019 Subsequent hospital visit by physician DERRICK Laboratory Procedures Date Procedure Procedure Detail Performing Clinician Start: 02-02-2025 US OB BPP W NON-STRESS Henry Flaco DO Work Phone: Start: 01-26-2025 US OB BPP W NON-STRESS [...] bacterial quanttative colony count urine Darío Banuelos CNM Work Phone: Start: 12-29-2024 US OB BPP W NON-STRESS Henry Flaco DO Work Phone: Start: 12-25-2024 Urnls dip stick/tabl et rgnt non-auto w/o micrscp Henry Flaco DO Work Phone: Start: 11-08-2024 Ecg routine ecg w/le ast 12 lds w/i&r Tricia Rowland MD Work Phone: Start: 10-09-2024 Hemoglobin glycosyla carola a1c Awilda Delatorre DO Work Phone: Start: 09-19-2024 Ecg routine ecg w/le ast 12 [facility] w/i&r Aye Saucedo MD Work Phone: Start: 08-14-2024 AMB REFERRAL TO [facility] - DIABETES EDUCATION Darío Banuelos FOOD SELECTOR-CN Work Phone: Start: 08-14-2024 AMB REFERRAL TO [facility] - NUTRITION EDUCATION Darío Banuelos FOOD SELECTOR-CN Work Phone: Start: 07-11-2024 CHLAMYDIA/GC BY PCR [...] hin layer prep mnl screen Darío L Sheebao CNM Work Phone: Start: 07-05-2019 Assay of [...] Adult BMI Screening Adult BMI Screen ing [facility] Start: 11-08-2025 Tobacco Screening Tobacco Screening [facility] Start: 09-19-2025 Adult BMI Screening Adult BMI Screen ing [facility] Start: 09-19-2025 Tobacco Screening Tobacco Screening [facility] Start: 09-11-2025 Adult BMI Screening Adult BMI Screen ing [facility] Start: 09-11-2025 Tobacco Screening Tobacco Screening [facility] Start: 08-30-2025 Urine screening for protein Diabetes: Urine Protein Screening [facility] Start: 08-14-2025 Adult BMI Screening Adult BMI Screen ing [facility] Start: 08-14-2025 Tobacco Screening Tobacco Screening [facility] Start: 08-14-2025 End: 08-14-2025 US MFM with or without consult US MFM with or without consult Imaging Routine with type 2 diabetes mellitus in second trimester Expected: 08/14/2025 (Approximate), Expires: 08/14/2025 [employer] Work Phone: Comment on above: Expected: 08/14/2025 (Approximate), Expires: 08/14/2025 Start: 04-20-2025 Hemoglobin A1c measurement Diabetes: Hemoglobin A1C [facility] Start: 04-17-2025 End: 04-17-2025 Patient encounter procedure 04/17/2025 10:30 AM EDT Office Visit [facility] [address] [place] [address] Awilda Delatorre DO [address] [place] [address] [facility] Start: 04-16-2025 Influenza vaccination Influenz a Vaccine (Season Ended) [facility] Start: 02-15-2025 End: 02-15-2025 Professional / ancillary services management 02/15/2025 4:00 PM EDT Ancillary Procedure [facility] [address] [place] [address] [facility] Start: 02-13-2025 End: 02-13-2025 Patient encounter procedure 02/13/2025 4:00 PM EDT Routine [facility] [address] [facility] [place] [facility] [place] [address] Darío Banuelos, CNM [address] [place] [address] [facility] Start: 02-12-2025 End: 02-12-2025 Patient encounter procedure 02/12/2025 4:30 PM EDT Routine [facility] [address]79 [facility] [place] [address] Darío Banuelos, CNM [address] [place] [address] [facility] Start: 02-09-2025 End: 02-09-2025 Professional / ancillary services management 02/09/2025 4:00 PM EDT Ancillary Procedure [facility] [address] [facility] [address] [place] [address] [facility] Start: 02-06-2025 End: 02-06-2025 Patient encounter procedure [facility] Start: 02-02-2025 End: 02-02-2025 Professional / ancillary services management 02/02/2025 4:00 PM EDT Ancillary Procedure [facility] [address] [facility] [address] [place] [address] [facility] Start: 01-30-2025 End: 01-30-2025 Patient encounter procedure 01/30/2025 4:00 PM EDT Routine [facility] [address] [facility] [place] [address] Darío Banuelos, CNM [address] [place] [address] [facility] Start: 01-29-2025 End: 01-29-2025 Patient encounter procedure [facility] Comment on above: Arrived Start: 01-26-2025 End: 01-26-2025 Professional / ancillary services management 01/26/2025 4:00 PM EDT Ancillary Procedure [facility] [address] [facility] [address] [place] [address] [facility] Start: 01-23-2025 End: 01-23-2025 Patient encounter procedure 01/23/2025 4:00 PM EDT Routine [facility] [address] [facility] [place] [address] Darío Banuelos, CNM [address] [place] [address] [facility] Start: 01-22-2025 End: 01-22-2025 Patient encounter procedure 01/22/2025 4:30 PM EDT Routine [facility] [address] [facility] [place] [address] Darío Banuelos, CNM [address] [place] [address] [facility] Start: 01-22-2025 End: 01-22-2026 STREPTOCCOUS, GROUP B CULTURE STREPTOCCOUS, GROUP B CULTURE Lab Routine screening for streptococcus B Expected: 01/22/2025 (Approximate), Expires: 01/22/2026 [facility] Work Phone: Comment on above: Expected: 01/22/2025 (Approximate), Expires: 01/22/2026 Start: 01-19-2025 End: 01-19-2025 Professional / ancillary services management 01/19/2025 9:15 AM EDT Ancillary Procedure [facility] [address] [facility] [address] [place] [address] [facility] Start: 01-18-2025 End: 01-18-2025 Patient encounter procedure [facility] 230 Comment on above: with type 2 diabetes mellitus in third trimester Start: 01-16-2025 End: 01-16-2025 Patient encounter procedure 01/16/2025 4:00 PM EDT Routine [facility] [address] [place] [address] Darío Banuelos, SADIA [address] [place] [address] [facility] Start: 01-15-2025 End: 01-15-2025 Patient encounter procedure [facility] Comment on above: Arrived Start: 01-12-2025 End: 01-12-2025 Professional / ancillary services management 01/12/2025 4:00 PM EDT Ancillary Procedure [facility] [address] [address] [facility] Start: 01-09-2025 End: 01-09-2025 Patient encounter procedure 01/09/2025 4:00 PM EDT Routine [facility] [address]79 [facility] [place] [address] Darío Banuelos CNM [address] [place] [address] [facility] Start: 01-06-2025 Hemoglobin A1c measurement Diabetes: Hemoglobin A1C [facility] Start: 01-05-2025 End: 01-05-2025 Professional / ancillary services management 01/05/2025 9:15 AM EDT Ancillary Procedure [facility] [address] [address] [facility] Start: 01-03-2025 Urine screening for protein Diabetes: Urine Protein Screening [facility] Start: 01-02-2025 End: 01-02-2025 Patient encounter procedure 01/02/2025 4:00 PM EDT Routine [facility] 1479 [facility] [place] [address] Darío Banuelos, CNM [address] [place] [address] [facility] Start: 01-01-2025 End: 01-01-2025 Patient encounter procedure 01/01/2025 4:30 PM EDT Routine [facility] [address] [facility] [place] [address] Darío Banuelos, CNM [address] [facility] [place] [address] [facility] Start: 12-29-2024 End: 12-29-2024 Professional / ancillary services management 12/29/2024 4:00 PM EDT Ancillary Procedure [facility] [address] [facility] [address] [place] [address] [facility] Start: 12-26-2024 End: 12-26-2024 Patient encounter procedure 12/26/2024 4:00 PM EDT Routine [facility] 1479 [facility] [place] [address] Darío Banuelos, CATHIEM [address] [place] [address] [facility] Start: 12-26-2024 End: 12-26-2025 [...] EDT Ancillary Procedure [facility] [address] [facility] [address] [place] [address] [facility] Start: 12-11-2024 End: 12-11-2024 [...] [address] [place] [address] Awilda Delatorre, [address] [place] [address] [facility] 230 Start: 11-15-2024 End: 11-15-2024 Patient encounter procedure 11/15/2024 4:30 PM EDT Routine [facility] [address]79 [place] [address] Darío Banuelos, CATHIEM [address] [place] [address] Arrived [facility] Comment on above: [...] Cardiology [address] [place] [address] Aye Saucedo MD [address] [place] [address] Tricia Rowland MD [address] [place] [address] [facility] Start: 10-31-2024 End: 10-31-2024 Patient encounter procedure 10/31/2024 8:00 AM EDT Appointment [facility] - Ultrasound [address] [place] [address] [facility] Start: 10-18-2024 End: 10-18-2024 Patient encounter procedure [facility] Comment on above: Arrived Start: 10-10-2024 Hemoglobin A1c measurement Diabetes: Hemoglobin A1C [facility] Start: 10-10-2024 End: 10-10-2024 Telemedicine consultation with patient 10/10/2024 11:30 AM EST Telemedicine Maternal- Medicine at [facility] [address] [place] [address] Clarke Modi MD [address] [place] [address] [facility] at [facility] Start: 10-09-2024 End: 10-09-2024 Patient encounter procedure 10/09/2024 3:45 PM EST Office Visit [facility] [address] [place] [address] Awilda Delatorre, DO [address] [place] [address] [facility] 230 Start: 10-03-2024 End: 10-03-2024 Patient encounter procedure 10/03/2024 10:00 AM EST Appointment [facility] - Ultrasound [address] [place] [address] [facility] Start: 09-28-2024 End: 09-28-2024 Patient encounter procedure [facility] Comment on above: Arrived Start: 09-25-2024 End: 09-25-2024 Patient encounter procedure 09/25/2024 8:30 AM EST Appointment [facility] [address] [place] [address] [facility] Start: 09-19-2024 End: 09-19-2024 Patient encounter procedure 09/19/2024 8:15 AM EST Office Visit [facility] [address] [place] [address] Jacque Schneider MD [address] [place] [address] [facility] Start: 09-11-2024 End: 09-11-2024 Patient encounter procedure 09/11/2024 8:00 AM EST Office Visit Maternal- Medicine at [facility] [address] [place] [address] Clarke Modi MD [address] [place] [address] [facility] at [facility] Start: 09-08-2024 Hemoglobin A1c measurement Diabetes: Hemoglobin A1C [facility] Start: 08-30-2024 End: 08-30-2024 Patient encounter procedure 08/30/2024 4:30 PM EST Office Visit [facility] [address] [place] [address] Darío Banuelos CNM [address] [place], [place] [address] [facility] Start: 08-23-2024 End: 08-23-2024 Telemedicine consultation with patient 08/23/2024 2:00 PM EST Telemedicine [facility]- Medicine at [facility] [address] [place] [address] Ariella Roberto, FOOD SELECTOR-OFFICE ASSISTANT [address] [facility] [place] [address] [facility] at [facility] Start: 08-14-2024 End: 11-12-2024 Protein creat ratio Protein creat ratio Lab Routine with type 2 diabetes mellitus in second trimester Expected: 08/14/2024 (Approximate), Expires: 11/12/2024 [facility] Comment on above: Expected: 08/14/2024 (Approximate), Expires: 11/12/2024 Start: 08-14-2024 End: 08-14-2024 Patient encounter procedure 08/14/2024 11:00 AM EST Office Visit [facility] at [facility] [address] [place] [address] Svetlana Jack, PAAnnitaC [address] [address] [facility] at [facility] Start: 08-14-2024 End: 08-14-2024 ambulatory 08/14/2024 8:30 AM EST Support Visit [facility]- Medicine at [facility] [address] [place] [address] Shauna Denny RN [address], [address] [place] [address] Maribell Amin, RD [address], [address] [place] [address] [facility] at [facility] Start: 08-03-2024 End: 08-03-2024 Patient encounter procedure 08/03/2024 8:30 AM EST Routine [facility] [address] [place] [address] Darío Banuelos, [facility] [address] [place] [address] Arrived [facility] Comment on above: Arrived Start: 07-10-2024 End: 07-10-2024 Patient encounter procedure 07/10/2024 3:45 PM EST Routine [facility] [address] [place] [address] Darío Banuelos, [facility] [address] [place] [address] Arrived [facility] Comment on above: Arrived Start: 05-30-2024 Hemoglobin A1c measurement Diabetes: Hemoglobin A1C [facility] Start: 05-30-2024 End: 05-30-2024 Patient encounter procedure 05/30/2024 8:45 AM EDT Office Visit [facility] [address] [place] [address] Awilda Delatorre DO [address] [place] [address] [facility] 230 Start: 04-16-2024 Influenza vaccination N [facility] Start: 09-06-2019 DTaP,Tdap and Td Vaccines (8 - Td or Tdap) DTaP,Tdap and Td Vaccines (8 - Td or Tdap) [facility] Start: 04-16-2019 Influenza vaccination Flu vaccine (# 1) [place], [place] Start: 2016 Cervical cancer screen Cervical canc er screen [place], [place] Start: 2016 Screening for malign ant neoplasm of cervix Pap Smear [facility] Start: 2014 DTaP,Tdap and Td Vaccines (1 - Tdap) DTaP,Tdap and Td Vaccines (1 - Tdap) [facility] Start: 2014 Urine screening for protein Diabetes: Urine Protein Screening [facility] Start: 2013 Adult BMI Follow Up Plan Adult BMI Follow Up Plan [facility] Start: 2013 Adult BMI Screening Adult BMI Screen ing [facility] Start: 2013 Diabetic foot examination Diabetic Foot Exam [facility] Start: 2011 Chlamydia screen Chlamydia screen [place], [place] Start: 2010 HIV screen HIV screen [place], [place] Start: 2007 Depression Screening Depression Scre ening [facility] Start: 2007 Tobacco Screening Tobacco Screening [facility] Start: 2006 DTaP/Tdap/Td vaccine (1 - Tdap) DTaP/Tdap/Td vaccine (1 - Tdap) [place] Start: 2006 HPV vaccine (1 - Fem tarun 2-dose series) HPV vaccine (1 - Female 2-dose series) [place] Start: 2005 Glaucoma screening Diabetes: R etinopathy Screening [facility] Start: 1996 Varicella Vaccine (1 of 2 - 2-dose childhood series) Varicella Vaccine (1 of 2 - 2-dose childhood series) [place] Start: 1995 Glaucoma screening Diabetic Op hthalmology Exam [facility] Start: 1995 Urine screening for protein Urine Microalbumin [facility] End: 08-14-2025 Comprehensive metabolic 2000 panel - Serum or Plasma Comprehensive metabolic panel Lab Routine with type 2 diabetes mellitus in second trimester 1 Occurrences starting 08/14/2024 until 08/14/2025 [email or web address] Work Phone: Comment on above: 1 Occurrences starti ng 08/14/2024 until 08/14/2025 End: 08-14-2025 ECG 12 lead ECG 12 lead ECG Routine with type 2 diabetes mellitus in second trimester Long Q-T syndrome 1 Occurrences starting 08/14/2024 until 08/14/2025 [facility] Comment on above: 1 Occurrences starti ng 08/14/2024 until 08/14/2025 End: 08-14-2025 Thyroid profile includes TSH FT4 Thyroid profile includes TSH FT4 Lab Routine with type 2 diabetes mellitus in second trimester 1 Occurrences starting 08/14/2024 until 08/14/2025 [facility] Comment on above: 1 Occurrences starti ng 08/14/2024 until 08/14/2025 Immunizations Immunization Date Immunization Notes Care Provider Marilee hicks 09-06-2009 tetanus toxoid, redu keron diphtheria toxoid, and acellular pertussis vaccine, adsorbed Darío Floro CN Work Phone: [facility] 08-25-2007 meningococcal polysaccharide (groups A, C, Y and W-135) diphtheria toxoid conjugate vaccine (MCV4P) Darío Floro [facility] Work Phone: [facility] 08-25-2007 tetanus toxoid, redu keron diphtheria toxoid, and acellular pertussis vaccine, adsorbed Darío Floro CN Work Phone: [facility] 08-25-2007 varicella virus vaccine Madeline gabbie Floro [facility] Work Phone: [facility] 09-06-2000 diphtheria, tetanus toxoids and acellular pertussis vaccine, unspecified formulation Darío Floro CN Work Phone: [facility] 09-06-2000 measles, mumps and r ubella virus vaccine Darío Floro CN Work Phone: [facility] 09-06-2000 poliovirus vaccine, unspecified formulation Darío Floro CN Work Phone: [facility] 12-24-1996 varicella virus vaccine [place] gabbie Floro CN Work Phone: [facility] 10-12-1996 diphtheria, tetanus toxoids and acellular pertussis vaccine, unspecified formulation Darío Floro CN Work Phone: [facility] 10-12-1996 haemophilus influenz ae type b vaccine, conjugate unspecified formulation Darío Floro CNM Work Phone: [facility] 10-12-1996 measles, mumps and r ubella virus vaccine Darío Floro CNM Work Phone: [facility] 02-25-1996 diphtheria, tetanus toxoids and acellular pertussis vaccine, unspecified formulation Darío Floro CNM Work Phone: [facility] 02-25-1996 haemophilus influenz ae type b vaccine, conjugate unspecified formulation Darío Floro CNM Work Phone: [facility] 02-25-1996 hepatitis B vaccine, pediatric or pediatric/adolescent dosage Darío Floro CNM Work Phone: [facility] 02-25-1996 poliovirus vaccine, unspecified formulation Darío Floro CNM Work Phone: [facility] 1995 diphtheria, tetanus toxoids and acellular pertussis vaccine, unspecified formulation Darío Floro CNM Work Phone: [facility] 1995 haemophilus influenz ae type b vaccine, conjugate unspecified formulation Darío Floro CNM Work Phone: [facility] 1995 poliovirus vaccine, unspecified formulation Darío Floro CNM Work Phone: [facility] 1995 diphtheria, tetanus toxoids and acellular pertussis vaccine, unspecified formulation Darío Floro CNM Work Phone: [facility] 1995 haemophilus influenz ae type b vaccine, conjugate unspecified formulation Darío Floro CNM Work Phone: [facility] 1995 hepatitis B vaccine, pediatric or pediatric/adolescent dosage Darío Floro CNM Work Phone: [facility] 1995 poliovirus vaccine, unspecified formulation Darío Floro CNM Work Phone: [facility] 1995 hepatitis B vaccine, pediatric or pediatric/adolescent dosage Darío Banuelos SADIA Work Phone: [facility] Healthcare Payers Date Payer Category Payer Unknown BCBS BCBS OUT OF STATE xxxxxxxxxxxx 2019-Present [address] [place] [address] xxxxxxxxxxxx [id number] 2019 Blue Cross Blue Shield BCBS [id number] 2019 Blue Cross Blue [facility] - Other [id number]. [id number] 2019 Unknown [id number] 2016 Unknown [id number] 1.13.693.2. [id number] 1995 Unknown [id number] 2.16.840.1.656344.3.579.2. 173 1995 Unknown [id number] 2.16.840.1.203837.3.579.2. 1286 1995 Unknown [id number] 2.16.840.1.178052.3.579.2. 1286 1995 Unknown [id number] 2.16.840.1.698438.3.579.2. 1286 1995 Unknown [id number] 2.16.840.1.061136.3.579.2. 1286 1995 Unknown [id number] 2.16.840.1.225765.3.579.2. 1286 1995 Unknown [id number] 2.16.840.1.937460.3.579.2. 1286 1995 Unknown [id number] 2.16.840.1.378036.3.579.2. 1286 1995 Unknown [id number] 2.16.840.1.727365.3.579.2. 1286 1995 Unknown [id number] 2.16.840.1.723300.3.579.2. 1285 1995 Unknown [id number] 2.16.840.1.996293.3.579.2. 1286 1995 Unknown [id number] 2.16.840.1.476018.3.579.2. 1285 1995 Unknown [id number] 2.16.840.1.379217.3.579.2. 9 1995 Unknown [id number] 2.16.840.1.851941.3.579.2. 1258 1995 Unknown [id number] 2.16.840.1.930098.3.579.2. 9 1995 Unknown [id number] 2.16.840.1.449981.3.579.2. 9 1995 Unknown [id number] 2.16.840.1.058877.3.579.2. 9 1995 Unknown [id number] 2.16.840.1.411031.3.579.2. 1258 1995 Unknown [id number] 2.16.840.1.566589.3.579.2. 9 1995 Unknown [id number] 2.16.840.1.969520.3.579.2. 1258 1995 Unknown [id number] 2.16.840.1.790784.3.579.2. 9 1995 Unknown [id number] 2.16.840.1.715419.3.579.2. 1258 1995 Unknown [id number] 2.16.840.1.972692.3.579.2. 1258 1995 Unknown [id number] 2.16.840.1.155486.3.579.2. 1258 1995 Unknown [id number] 2.16.840.1.469120.3.579.2. 1258 1995 Unknown [id number] 2.16.840.1.094713.3.579.2. 1258 1995 Unknown [id number] 2.16.840.1.407841.3.579.2. 1258 1995 Unknown [id number] 2.16.840.1.000852.3.579.2. 1258 1995 Unknown [id number] 2.16.840.1.423689.3.579.2. 1258 1995 Unknown [id number] 2.16.840.1.828147.3.579.2. 1258 1995 Unknown [id number] 2.16.840.1.685126.3.579.2. 9 1995 Unknown [id number] 2.16.840.1.048647.3.579.2. 1258 1995 Unknown [id number] 2.16.840.1.644842.3.579.2. 9 Social History Date Type Detail Facility [facility] Start: 1995 [facility] Start: 02-10-2023 End: 07-25-2024 Tobacco smoking status NHIS Never smoked tobacco [facility] Start: 02-10-2023 End: 07-25-2024 Tobacco use and exposure Smokeless tobacco non-user [facility] Start: 06-08-2024 End: 01-18-2025 Alcoholic beverage [...] to any clubs or organizations such as yazidism groups, unions, fraternal or athletic groups, or [...] Healthcare Start: 1995 Sex assigned at Female [facility] Start: 02-08-2023 Gender identity Identifies as female gender (finding) [facility] Start: 05-16-2024 [facility] Start: 08-14-2024 End: 11-09-2024 Alcoholic beverage intake Ex-drinker (finding) [facility] Start: 03-19-2015 End: 07-25-2024 Sex Female (finding) [facility] Medical Equipment Procedure Code Equipment Code Equipment Origin al Text Equipment Identifier Dates [id number] Start: 11-29-2023 End: 11-28-2024 Check urine for ketones if blood sugar/glucose 200 or above daily as needed. Use as directed. [id number] Start: 08-14-2024 USE DIRECTED FIVE TIMES DAILY [id number] Start: 10-03-2024 Functional Status Date Assessment Result Facility 01-18-2025 Patient Health Quest ionnaire 2 item (PHQ-2) [Reported] [facility] 12-07-2024 Patient Health Quest ionnaire 2 item (PHQ-2) [Reported] [facility] 10-09-2024 Patient Health Quest ionnaire 2 item (PHQ-2) [Reported] [facility] Clinical Notes 05-03-2024 to 01-29-2025 Darío Banuelos [facility] - 01/29/2025 4:30 PM EDTCATHIE Peralta [...] routine visit. documented in this encounter [facility] 01-22-2025 History of Presen t illness [...] diabetes mellitus treated with insulin ([facility]) Glucose log reviewed, patient states Dr Crowley adjusted her insulin as her glucose levels were going low. Med list is current in [facility]. Continue vitamin. Labs reviewed. GBS taken. Expected mode of delivery vaginal Follow up in 1 week for a routine visit. documented in this encounter [facility] 01-18-2025 History of Presen t [...] in the evening (1000 MG TABS) Labs [facility] HEMOGLOBIN A1C/HEMOGLOBIN.TOTAL:MFR:PT:BLD: QN: 6.1 Outpatient prescription Medication marked as long-term Patient taking a medication differently The ASCVD Risk score ([place] DK, et al., 2019) failed to calculate [...] patient today. documented in this encounter [facility] 01-15-2025 History of Presen t [...] routine visit. documented in this encounter [facility] 01-09-2025 History of Presen t [...] routine visit. documented in this encounter [facility] 01-01-2025 History of Presen t [...] little bit. Patient states her testing at [facility] was normal on Wednesday, she has [...] routine visit. documented in this encounter [facility] 12-26-2024 History of Presen t [...] will do all nst's and bpp's at [place] per Dr Sam Objective Physical Exam Weight: [...] routine visit. documented in this encounter [facility] 12-25-2024 History of Presen t [...] nursing note reviewed. Exam conducted with a packing machine operator present. Vitals: Estimated body mass index [...] Patient presents today for referral from Wanda Díaz due to Type 2 Diabetes and . Patient is setup for NST/BPP Bi-Weekly/Weekly at Wanda Banuelos's office. Patient voiced that she was seen at [facility] for anatomy Scan. Advised patient that it is preferred to have NST/BPP at [facility] FB for co-management in . Patient is agreeable with having location changed. Order will be given to patient today to have setup at [facility]. Discussed delivery with patient and if sugars are controlled well with insulin then she will be able to delivery at 39 weeks gestation, but if sugars are not well controlled then delivery would be recommended at 38 weeks to prevent issues with placenta. Patient is currently taking Aspirin 81mg daily. FHT 145, patient to continue care with Wanda Banuelos and reach out to office with any concerns. Documented by Estelle Hughes LPN on behalf of: Henry Sam DO documented in this encounter [facility] 12-11-2024 History of Presen t [...] during . Managed by Awilda Crowley in [place]. Did see MFM Objective Physical Exam Expected [...] routine visit. documented in this encounter [facility] 12-07-2024 History of Presen t [...] in the evening (1000 MG TABS) Labs [facility] HEMOGLOBIN A1C/HEMOGLOBIN.TOTAL:MFR:PT:BLD: QN: 5.7 Outpatient prescription Medication [...] patient today. documented in this encounter [facility] 11-15-2024 History of Presen t [...] routine visit. documented in this encounter [facility] 11-08-2024 History of Presen t illness Narrative Reginald Reyes Date of visit: 11/08/2024 Date of : 1995 Age: 29 y.o. Patient Active Problem List Diagnosis Abnormal glucose Insulin resistance Mixed hyperlipidemia PCOS (polycystic ovarian syndrome) Type 2 diabetes mellitus without complication ([facility]) Pre-existing type 2 diabetes mellitus during in [...] by mouth in the morning. blood-glucose sensor (Ecolibrium G7 SENSOR) device Use to monitor blood [...] Chief Complaint Patient presents with New Patient PRODUCT MGR - ref by [facility] for long QT [...] milliseconds. She followed up with a pediatric assistant but no intervention was performed since the [...] History: Diagnosis Date Diabetes mellitus ([facility]) Hyperlipidemia Insulin [...] Strain: Low Risk (06/07/2024) Received from [facility] Overall Financial Resource Strain (CARDIA) Difficulty of Paying Living Expenses: Not hard at all Food Insecurity: No Food Insecurity (11/08/2024) Hunger Screening Food Insecurity - Worry: Never True Food Insecurity - Inability: Never True Transportation Needs: No Transportation Needs (06/07/2024) Received from [facility] PRAPARE - Transportation Lack of Transportation (Medical): No Lack of Transportation (Non-Medical): No Physical Activity: Sufficiently Active (06/07/2024) Received from [facility] Exercise Vital Sign Days of Exercise per Week: 5 days Minutes of Exercise per Session: 30 min Stress: No Stress Concern Present (06/07/2024) Received from [facility] [employer] [facility] [employer] - Occupational Stress Questionnaire Feeling of Stress : Not at all Social Connections: Socially Integrated (06/07/2024) Received from [facility] Social Connection and Isolation Panel [NHANES] Frequency of Communication with Friends and Family: More than three times a week Frequency of Social Gatherings with Friends and Family: Three times a week Attends Faith Services: More than 4 times per year Active Member of Clubs or Organizations: Yes Attends Club or Organization Meetings: More than 4 times per year Marital Status: Interpersonal Safety: Not At Risk (04/09/2023) Received from [facility], [facility] Humiliation, Afraid, Rape, and Kick questionnaire Fear of Current or Ex-Partner: No Emotionally Abused: No Physically Abused: No Sexually Abused: No Housing Instability: Low Risk (06/07/2024) Received from [facility] Housing Stability Vital Sign Unable [...] medications. IMPRESSIONS/PLAN 1. Long Q-T syndrome - [facility] - Electrophysiology - [place], [place] - POCT EKG 2. Hx of [...] Physician: Aye Saucedo MD [address] [place] [address] documented in this encounter [facility] 11-07-2024 Miscellaneous Notes [employer] MESSAGE REMINDER SENT TO PT TO REMIND OF PPC APPT. documented in this encounter [facility] 11-07-2024 Telephone encounter Note [employer] MESSAGE REMINDER SENT TO PT TO REMIND OF PPC APPT. [facility] 10-18-2024 History of Presen t illness Narrative [...] without long-term current use of insulin (HCC) Encounter for care of first , second trimester ([facility]HS-HCC) Continue vitamin. Labs reviewed. Rhogam GTT not doing due to already being type 2 diabetic Follow up in 4 weeks for a routine visit. documented in this encounter [facility] 10-10-2024 History of Presen t illness Narrative REASON FOR TELEMEDICINE VIDEO OFFICE VISIT: Suspected Maternal prolonged QT ruled out. HISTORY OF PRESENT ILLNESS: Reginald Reyes is a pleasant 29 y.o. G 1 P0 at 21w1d due on Estimated Date of Delivery: 02/19/25 . has been complicated with Pre gestational type 2 diabetes on insulin. 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 Patient is comfortable with her fork lift truck operator. Blood glucose are adequately controlled. Suspected prolonged QT syndrome. Patient was told as a child so she might a borderline prolonged QT syndrome. No intervention was done. Patient then was lost for follow-up and has not seen flight software test engineer for more than 10 years. Therefore the [...] 2 diabetes mellitus without complication ([facility]) Long Q-T [...] History: Diagnosis Date Diabetes mellitus ([facility]) Hyperlipidemia Insulin [...] completion of targeted anatomy and echocardiography at [facility]. 2. Serial growth ultrasounds every 4 [...] not involved and therefore no input from [facility]. 6. Initiate testing form twice weekly [...] Visit via Real-time Synchronous Audiovisual Provider Location: [facility] AT [address] [id number] Patient Location: Patient's home Patient Location Keyseating Machine Set Up Operator: None Video Visit Consent Statement: I [...] that there are some limitations compared to [id number] evaluations. We elected to proceed. [facility] History of Presen t illness Narrative [...] in the evening (1000 MG TABS) Labs [facility] HEMOGLOBIN A1C/HEMOGLOBIN.TOTAL:MFR:PT:BLD: QN: 5.7 Outpatient prescription Medication [...] long-term current use of insulin ([facility]) Relevant Orders [...] patient today. documented in this encounter [facility] 09-28-2024 History of Presen t [...] long-term current use of insulin ([facility]) Continue vitamin. Labs reviewed Follow up in 2 weeks for a routine visit. documented in this encounter [facility] 09-19-2024 History of Presen t illness Narrative Reginald Reyes Date of visit: 09/19/2024 Date of : 1995 Age: 29 y.o. Patient Active Problem List Diagnosis Long Q-T syndrome Abnormal glucose Insulin resistance Mixed hyperlipidemia PCOS (polycystic ovarian syndrome) Type 2 diabetes mellitus without complication ([facility]) Long Q-T [...] by mouth in the morning. blood-glucose sensor (Ecolibrium G7 SENSOR) device Use to monitor blood [...] Chief Complaint Patient presents with New Patient PRODUCT MGR REF - Long Q-T syndrome SEEN CARDIO [...] family history. She stopped seeing a pediatric assistant age of 18 Since she is now 18 weeks we are have been asked to evaluate her for this Today's EKG shows sinus rhythm QT is measured at 382 corrected 420 milliseconds Past Medical History: Diagnosis Date Diabetes mellitus ([facility]) Hyperlipidemia Insulin [...] Strain: Low Risk (06/07/2024) Received from [facility] Overall Financial Resource Strain (CARDIA) Difficulty of Paying Living Expenses: Not hard at all Food Insecurity: No Food Insecurity (09/19/2024) Hunger Screening Food Insecurity - Worry: Never True Food Insecurity - Inability: Never True Transportation Needs: No Transportation Needs (06/07/2024) Received from [facility] PRAPARE - Transportation Lack of Transportation (Medical): No Lack of Transportation (Non-Medical): No Physical Activity: Sufficiently Active (06/07/2024) Received from [facility] Exercise Vital Sign Days of Exercise per Week: 5 days Minutes of Exercise per Session: 30 min Stress: No Stress Concern Present (06/07/2024) Received from [facility] [employer] [facility] [employer] - Occupational Stress Questionnaire Feeling of Stress : Not at all Social Connections: Socially Integrated (06/07/2024) Received from [facility] Social Connection and Isolation Panel [NHANES] Frequency of Communication with Friends and Family: More than three times a week Frequency of Social Gatherings with Friends and Family: Three times a week Attends Faith Services: More than 4 times per year Active Member of Clubs or Organizations: Yes Attends Club or Organization Meetings: More than 4 times per year Marital Status: Interpersonal Safety: Not At Risk (04/09/2023) Received from [facility], [facility] Humiliation, Afraid, Rape, and Kick questionnaire Fear of Current or Ex-Partner: No Emotionally Abused: No Physically Abused: No Sexually Abused: No Housing Instability: Low Risk (06/07/2024) Received from [facility] Housing Stability Vital Sign Unable [...] Q-T syndrome - [facility] - [place], [place] - [facility]KG [facility] - [place], [place]; Future 2. Type 2 diabetes mellitus without complication, unspecified whether detention insulin use ([facility]) 1. Questionable [...] TODAYS ORDERS Orders Placed This Encounter Procedures [facility] - Electrophysiology - [place], [place] POCT EKG FOLLOW UP No follow-ups on file. PCP: LILIANA Peralta Referring Physician: Svetlana Jack PA-C [address] [address] documented in this encounter [facility] 09-18-2024 Miscellaneous Notes Left message for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 Reynaldo [place] [place] [address] PCP - General 04/16/23 Darío Banuelos CNM [address] [place] [address] Obstetrics and Gynecology 02/10/[address] Magistrate Relationship Specialty Start Date End Date Unallocated, Danay Biggs MD [address] [place] [place] [address] PCP - General 04/16/23 Darío Banuelos CNM [address] [place] [address] Obstetrics and Gynecology 02/10/[address] Magistrate Relationship Specialty Start Date End Date Unallocated, Danay Biggs MD [address] [place] [address] PCP - General 04/16/23 Darío Banuelos CNM [address] [place] [address] Obstetrics and Gynecology 02/10/[address] Magistrate Relationship Specialty Start Date End Date Unallocated, MD Reynaldo [place] [place] [address] PCP - General 04/16/23 Darío Banuelos CNM [address] [place] [address] Obstetrics and Gynecology 02/10/[address] Magistrate Relationship Specialty Start Date End Date Unallocated, Francisco Javiers MD Dian [address] [place] [address] PCP - General 04/16/23 Darío Banuelos CNM [address] [place] [address] Obstetrics and Gynecology 02/10/[address] Magistrate Relationship Specialty Start Date End Date Unallocated, Danay Biggs MD [address] [place] [address] PCP - General 04/16/23 Awilda Delatorre, DO [address] [place] [address] PCP - [place] [employer] 06/16/23 Darío Banuelos CNM [address] [place] [address] Obstetrics and Gynecology 02/10/[address] Magistrate Relationship Specialty Start Date End Date Unallocated, Danay Biggs MD [address] [place] [address] PCP - General 04/16/23 Awilda Delatorre, [address] [place] [address] PCP - [place] [employer] 06/16/23 Darío Banuelos CNM [address] [place] [address] Obstetrics and Gynecology 02/10/23 FOR RECORDS PERTAINING [...] BE BASED ON THE PRIMARY CLINICAL RECORDS. [facility]. provides no warranty or guarantee of the accuracy or completeness of information in this document.
[2025-02-06 07:07] VITALS: BP 94/55; PULSE 86
== END 2025-02-06 08:10 | disposition home or self-care (01) ==
LOC: FBCO 07:00 → FBC 07:02
PROVIDERS: Visit Provider Obstetrics & Gynecology
DX: O24.419 Gestational diabetes mellitus in pregnancy, unspecified control (principal)
CPT/HCPCS: 59025

== ENCOUNTER 2025-02-07 07:04 | Outpatient (OUT) | payer BC, SELFPAY ==
--- OUTSIDE RECORDS SUMMARY | 2025-01-29 16:30 | XMS_ITS | Encounter Summary ---
Author Organization [facility] Address [address] [place] [address] Care Team Providers Care Head Machine Feeder Name Role Phone Flaquita Banuelos CN Unavailable [phone] Unallocated, [facility]oms Provider Primary Care [facility] Encounter Details Date Type Department Care Team (Latest Contact Info) Description 01/29/2025 4:30 PM EDT Routine [facility] [address] [place] [phone] Flaquita Banuelos, CNM [address] [place], [place] [id number] with type 2 diabetes mellitus in third trimester ([facility]) (Primary Dx); Type 2 diabetes mellitus treated with insulin (HCC); Encounter for care of first , third trimester ([facility]) Social History Tobacco Use Types Packs/Day Years [...] Recorded Patient Health Questionnaire-2 Score 0 01/18/2025 [facility] [...] time in the past 12 m [facility], were you homeless or living in a [...] Sign Reading Time Taken Comments Blood Pressure 120/60 01/29/2025 4:33 PM EDT Pulse - - Temperature - - Respiratory Rate - - Oxygen Saturation - - Inhaled Oxygen Concentration - - Weight 110 kg (242 lb) 01/29/2025 4:33 PM EDT Height - - Body Mass Index 34.72 01/18/2025 8:28 AM EDT documented in this encounter Progress Notes * Flaquita Banuelos CNM - 01/29/2025 4:30 PM EDT Subjective No chief complaint on file. Kellie Reyes is a 29 y.o. at 37w0d with a working estimated date of delivery [...] Current Her is complicated by: Type 2 diabetes requiring insulin Objective Physical Exam Weight: 242 lb Expected Total Weight Gain: 11 lb-19 lb Pregravid BMI: 35.30 BP: 120/60 Urine protein-negative Urine glucose-negative Assessment/Plan Diagnoses and all orders for this visit: with type 2 diabetes mellitus in third trimester ([facility]) Type 2 diabetes mellitus treated with insulin (HCC) Encounter for care of first , third trimester ([facility]) Continue vitamin. Labs reviewed. GBS negative Expected mode of delivery Follow up in 1 week for a routine visit. documented in this encounter Plan of Treatment Upcoming Encounters Date Type Department Care Team (Late st Contact Info) Description 02/12/2025 4:30 PM EDT Routine [facility] [address] [place] [phone] Flaquita Banuelos CNM [address] [place], [place] [id number] 02/22/2025 1:30 PM EDT Telemedicine [facility] [address] [place] [address] Flaquita Banuelos CNM [address] [place], [place] [id number] 04/19/2025 10:45 AM EDT Office Visit [facility] [address] [place] [address] Awilda Crenshaw DO [address] [place] [address] documented as of this encounter Visit Diagnoses Diagnosis with type 2 diabetes mellitus in third trimester ([facility])- Primary Type 2 diabetes mellitus treated with insulin (HCC) Encounter for care of first , third trimester ([facility]) documented in this encounter Care Teams Head Machine Feeder Relationship Specialty Start Date End Date Unallocated, Noms MD [address] [place] [address] PCP - General 04/16/23 Flaquita Banuelos CNM [address] [place], [place] [phone] Obstetrics and Gynecology 02/10/23 documented as of this encounter
--- OUTSIDE RECORDS SUMMARY | 2025-02-06 16:30 | XMS_ITS | Encounter Summary ---
Author Organization [facility] Address [address] [place] [address] Care Team Providers Care Pairer Substandard Name Role Phone Flaquita Banuelos CN Unavailable [phone] Unallocated, Noms Provider Primary Care Pro[facility] Encounter Details Date Type Department Care Team (Latest Contact Info) Description 02/06/2025 4:30 PM EDT Routine [facility] [address] [place] [address] Flaquita Banuelos, CNM [address] [place], [place] [id number] Type 2 diabetes mellitus without complication, without long-term current use of insulin (HCC) Social History Tobacco Use Types [...] 06/07/2024 How often do you attend [facility] or jainism services? More than 4 times per year 06/07/2024 Do you belong to any clubs o r organizations such as episcopalian groups, unions, fraternal [...] Recorded Patient Health Questionnaire-2 Score 0 01/18/2025 [facility] [place] of Occupat ional Health - Occupational Stress [...] in the past 12 m [facility], were you homeless or living in [...] Sign Reading Time Taken Comments Blood Pressure 120/80 02/06/2025 4:26 PM EDT Pulse - - Temperature - - Respiratory Rate - - Oxygen Saturation - - Inhaled Oxygen Concentration - - Weight 110 kg (243 lb) 02/06/2025 4:26 PM EDT Height - - Body Mass Index 34.87 01/18/2025 8:28 AM EDT documented in this encounter Plan of Treatment Upcoming Encounters Date Type Department Care Team (Late st Contact Info) Description 02/12/2025 4:30 PM EDT Routine [facility] [address] [place] [phone] Flaquita Banuelos, CNM [address] [place] [address] 02/22/2025 1:30 PM EDT Telemedicine [facility] [address] [place] [phone] Flaquita Banuelos, CATHIE[address] [id number] 04/19/2025 10:45 AM EDT Office Visit [facility] [address] [place] [address] Awilda Crenshaw DO [address] [place], [place] [phone] Scheduled Orders Name Type Priority Associated Diagnoses Orde r Schedule US OB SCAN FOR GROWTH Imaging Routine Type 2 diabetes mellitus without complication, without long-term current use of insulin (HCC) Expected: 02/06/2025, Expires: 02/06/2026 documented as of this encounter Visit Diagnoses Diagnosis Type 2 diabetes mellitus without complication, without long-term current use of insulin (HCC) documented in this encounter Care Teams Pairer Substandard Relationship Specialty Start Date End Date Unallocated, Noms [place]ian, [place] [address] PCP - General 04/16/23 Flaquita Banuelos CNM [address] [place] [phone] Obstetrics and Gynecology 02/10/23 documented as of this encounter
--- NOTE | 2025-02-07 | US_ITS ---
The [address] [address] Patient Name: REGINALD SMALL MRN: [id number] date: 1995 Sex: F Assigned Patient Location: Current Patient Location: US Accession/Order Number: [id number] Exam Date: 02/07/2025 08:09 Report Date: 02/07/2025 08:14 At the request of: DARÍO NANCE APRN, CNM Procedure: US OB growth ULTRASOUND OB GROWTH CLINICAL INFORMATION: TYPE 2 DIABETES MELLITUS E11.9 COMPARISON: 01/12/2025 There is a single live intrauterine gestation in cephalic presentation. There is cardiac and somatic activity. The heart rate measures 128 beats per minute. The amniotic fluid index measures 15.4 cm which is in upper normal range. The following measurements were obtained: Biparietal diameter 9.2 cm 37 weeks 1 day 46% Head circumference 33.9 cm 39 weeks 0 days 49% Abdominal circumference 36.1 cm 40 weeks 0 days 96% Femur length 6 7.5 cm 38 weeks 2 days 55% The composite ultrasound age based on these measurements is 38 weeks 4 days +/- 2 weeks 5 days. The estimated date of delivery is 02/17/2025. The estimated weight is 8 lbs. 2 oz. +/- 1 lb. 4 oz. (83%) US/US OB growth IMPRESSION: SINGLE LIVE INTRAUTERINE GESTATION WITH ULTRASOUND AGE OF 38 WEEKS 4 DAYS. APPROPRIATE INTERVAL GROWTH. Impression dictated by: Elle Mcleod M.D. 02/07/2025 8:14 AM Dictation Location: [facility] Electronically authenticated by: [id number] Y Date: 02/07/2025 08:14
--- OUTSIDE RECORDS SUMMARY | 2025-02-07 07:06 | XMS_ITS | Encounter Summary ---
Author Organization [facility] Address [address] [place] [address] Care Team Providers Care Web Knitter Name Role Phone Flaquita Banuelos CNM Unavailable [phone] Unallocated, Noms Provider Primary Care Provi mart Awilda Crenshaw DO Unavailable [phone] Encounter Details Date Type Department Care Team (Late st Contact Info) Description 08/31/2023 Abstract [facility] SWS FM [address] [facility] 230 [place] [address] Awilda Crenshaw, [address] [facility] 230 [place] [address] Social History Tobacco Use Types Packs/Day Years [...] PM EDT Routine [facility] FNR OB [address] [place] [address] Flaquita Banuelos [facility] [address] [place] [address] 02/22/2025 1:30 PM EDT Telemedicine [facility] FNR OB [address] [place] [address] Flaquita Banuelos [facility] [address] [place] [address] 04/19/2025 10:45 AM EDT Office Visit [facility] S[facility] [address] [place] [address] Awilda Crenshaw DO [address] [place] [address] documented as of this encounter Visit Diagnoses Not on filedocumented in this encounter Care Teams Web Knitter Relationship Specialty Start Date End Date Unallocated, Noms Dian, [address] [place] [address] PCP - General 04/16/23 Awilda Crenshaw DO [address] [place] [address] PCP - [place] Commercial 06/16/23 Flaquita Banuelos CNM [address] [place] [address] Obstetrics and Gynecology 02/10/23 documented as of this encounter
--- OUTSIDE RECORDS SUMMARY | 2025-02-07 07:06 | XMS_ITS | Encounter Summary ---
Author Organization [facility] Address [address] [place] [address] Care Team Providers Care Seat Covers Trimmer Name Role Phone Flaquita Banuelos CNM Unavailable [phone] Unallocated, Noms Provider Primary Care Provi mart Awilda Crenshaw DO Unavailable [phone] Encounter Details Date Type Department Care Team (Late st Contact Info) Description 11/03/2024 Abstract [facility] [address] [place] [address] Awilda Crenshaw, DO [address] [facility] 230 [place] [address] Social History Tobacco Use Types Packs/Day Years [...] Recorded Patient Health Questionnaire-2 Score 0 10/09/2024 [facility] [place] of Occupat ional Health - Occupational Stress [...] any time in the past 12 m [facility], were you homeless or living in [...] FNR OB [address] [place] [address] Flaquita Banuelos, CATHIEM [address] [place] [address] 02/22/2025 1:30 PM EDT Telemedicine [facility] FNR OB [address] [place] [address] Flaquita Banuelos, CNM [address] [place] [address] 04/19/2025 10:45 AM EDT Office Visit [facility] S[facility] [address] [place] [address] Awilda Crenshaw, DO [address] [place] [address] documented as of this encounter Visit Diagnoses Not on filedocumented in this encounter Care Teams Seat Covers Trimmer Relationship Specialty Start Date End Date Unallocated, Noms Provider, [address] [place] [address] PCP - General 04/16/23 Awilda Crenshaw, DO [address] [place] [address] PCP - [place] Commercial 06/16/23 Flaquita Banuelos CNM [facility], [place] [address] Obstetrics and Gynecology 02/10/23 documented as of this encounter
--- OUTSIDE RECORDS SUMMARY | 2025-02-07 07:06 | XMS_ITS | Encounter Summary ---
Author Organization [facility] Address [address] [place] [address] Care Team Providers Care Farm Loan Representative Name Role Phone Flaquita Banuelos CNM Unavailable [phone] Unallocated, Noms Provider Primary Care Provi mart Awilda Crenshaw DO Unavailable [phone] Encounter Details Date Type Department Care Team (Late st Contact Info) Description 04/16/2023 Abstract [facility] S[facility] FM [address] [facility] 230 [place] [address] Awilda Crenshaw, [address] [facility] 230 [place] [address] Social History Tobacco Use Types Packs/Day Years [...] Recorded Patient Health Questionnaire-2 Score 0 04/16/2023 [facility] of Occupat ional Health - [...] in a fdc (including now)? No 04/09/2023 Comments No Sex [...] [facility] FNR OB [address] [place] [address] Flaquita Banuelos, CNM [address] [place] [address] 02/22/2025 1:30 PM EDT Telemedicine [facility] FNR OB [address] [place] [address] Flaquita Banuelos, CNM [address] [place] [address] 04/19/2025 10:45 AM EDT Office Visit [facility] [address] [place] [address] Awilda Crenshaw DO [address] [place] [address] [place] [address] documented as of this encounter Visit Diagnoses Not on filedocumented in this encounter Care Teams Farm Loan Representative Relationship Specialty Start Date End Date Unallocated, Noms Provider, [place] [address] PCP - General 04/16/23 Awilda Crenshaw, DO [address] [place] [address] PCP - [place] Commercial 06/16/23 Flaquita Banuelos CNM [address] [place] [address] Obstetrics and Gynecology 02/10/23 documented as of this encounter
--- OUTSIDE RECORDS SUMMARY | 2025-02-07 07:06 | XMS_ITS | Encounter Summary ---
Author Organization [facility] Address [facility]-[id number] [address] [place] [address] Care Team Providers Care Senior Administrative Associate Name Role Phone Flaquita Banuelos BAMBI-CNM Primary Care Provider [phone] Encounter Details Date Type Department Care Team (Late st Contact Info) Description 09/18/2024 Orders Only [facility] [address] [place] [address] External, Scanning Provider Social History [...] Scanning Provider External ECG ORDERABLES Final Result [facility] [address] [employer] [place] [address] documented in this encounter Visit Diagnoses Not on filedocumented in this encounter Additional Health Concerns Assessment Noted Time PHQ-9 Depression Total Score: 0 03/03/20 17 3:00 PM EDT documented as of this encounter Care Teams Senior Administrative Associate Relationship Specialty Start Date End Date Flaquita Banuelos APRN-CNM [address] [place] [address] PCP - General Nurse Communications Strategist 04/15/18 documented as of this encounter
--- OUTSIDE RECORDS SUMMARY | 2025-02-07 07:06 | XMS_ITS | Encounter Summary ---
Author Organization [facility] Address [address] [place] [address] Care Team Providers Care Overhead Line Worker Name Role Phone Flaquita Banuelos CNM Unavailable [phone] Unallocated, Noms Provider Primary Care Provi mart Encounter Details Date Type Department Care Team (Late st Contact Info) Description 12/20/2024 Results Follow-Up [facility] FNR OB [address] [place] [address] Flaquita Banuelos, CNM [address] [place], [place] [phone] Social History Tobacco Use Types Packs/Day Years [...] often do you attend chur ch or restorationism services? More than 4 times [...] Recorded Patient Health Questionnaire-2 Score 0 12/07/2024 [facility] of Occupat ional Health - Occupational Stress [...] time in the past 12 m [facility], were you homeless or living in [...] EDT Routine [facility] FNR OB [address] [place] [address] Flaquita Banuelos CNM [address] [facility] [place] [address] 02/22/2025 1:30 PM EDT Telemedicine [facility] FNR OB [address] [place] [address] Flaquita Banuelos CNM [facility], [place] [address] 04/19/2025 10:45 AM EDT Office Visit [facility] S[facility] FM [address] [place] [address] Awilda Crenshaw, DO [address] [place] [address] documented as of this encounter Visit Diagnoses Not on filedocumented in this encounter Care Teams Overhead Line Worker Relationship Specialty Start Date End Date Unallocated, Noms MD Dian [address] [place] [address] PCP - General 04/16/23 Flaquita Banuelos CNM [address] [place] [id number] Obstetrics and Gynecology 02/10/23 documented as of this encounter
--- OUTSIDE RECORDS SUMMARY | 2025-02-07 07:06 | XMS_ITS | Clinical Summary ---
Author Organization [employer] Address [id number] [address] [place] [address] Care Team Providers Care Linoleum Layer Apprentice Name Role Phone SheebaWanda sanchezFlaquitalibby LACY-CNM Primary Care Provider [phone] Allergies No known active allergies Medications metFORMIN [...] Cardiology [address] [place] [address] Robby Quezada MD Goyal, Vishal, MD Long Q-T syndrome (Primary Dx); Hx of prolonged Q-T interval on ECG 11/07/2024 Telephone [facility] [address] [place] [address] Abby Andino CMA 11/07/2024 Travel from Last 3 Months Immunizations Immunization [...] POCT EKG Routine 11/08/2024 Long Q-T syndrome from Last 3 Months Results * POCT EKG (11/08/2024) us Kendall Rowland MD ECG ORDERABLES Final Result MANUALLY TRANSCRIBED RESULTS from Last 3 Months Insurance [employer] Care Teams Linoleum Layer Apprentice Relationship Specialty Start Date End Date Flaquita Banuelos APRN-CNM [address] [place] [address] PCP - General Nurse Expander 04/15/18
--- OUTSIDE RECORDS SUMMARY | 2025-02-07 07:06 | XMS_ITS | Encounter Summary ---
Author Organization [facility] Address [address] [place] [address] Care Team Providers Care Park Aide Name Role Phone Flaquita Banuelos CNM Unavailable [phone] Unallocated, Noms Provider Primary Care Provi mart Awilda Crenshaw DO Unavailable Encounter Details Date Type Department Care Team (Late st Contact Info) Description 10/20/2024 Abstract [facility] [address] [place] [address] Awilda Crenshaw, DO [address] [facility] 230 [place] [address] Social History Tobacco Use Types Packs/Day Years [...] any clubs o r organizations such as religion groups, unions, fraternal or athletic groups, or [...] Recorded Patient Health Questionnaire-2 Score 0 10/09/2024 [facility] [place] of Occupat ional Health - Occupational Stress [...] FNR OB [address] [place] [address] Flaquita Banuelos, CATHIEM [address] [place] [address] 02/22/2025 1:30 PM EDT Telemedicine [facility] FNR OB [address] [facility] [address] Flaquita Banuelos, CNM [address] [place] [address] 04/19/2025 10:45 AM EDT Office Visit [facility] SWS FM [address] [place] [address] Awilda Crenshaw, DO [address] [place] [address] documented as of this encounter Visit Diagnoses Not on filedocumented in this encounter Care Teams Park Aide Relationship Specialty Start Date End Date Unallocated, Noms Provider, [address] [place] [address] PCP - General 04/16/23 Awilda Crenshaw, DO [address] [place] [address] PCP - [place] Commercial 06/16/23 Flaquita Banuelos CNM [employer], [place] [address] Obstetrics and Gynecology 02/10/23 documented as of this encounter
--- OUTSIDE RECORDS SUMMARY | 2025-02-07 07:06 | XMS_ITS | Encounter Summary ---
Author Organization [facility] Address [address] [place] [address] Care Team Providers Care Coin Teller Name Role Phone Vin Flaquita Mccoy CNM Unavailable [phone] Unallocated, Noms Provider Primary Care Provi mart Encounter Details Date Type Department Care Team (Late st Contact Info) Description 12/27/2024 Results Follow-Up [facility] FNR OB [address] [place] [address] Abby Saul MA Social History [...] Recorded Patient Health Questionnaire-2 Score 0 12/07/2024 [facility] of Occupat ional Health - [...] any time in the past 12 m [facility], were you homeless or living [...] PM EDT Routine [facility] FNR OB [address] [place] [address] Flaquita Banuelos, CNM [address] [place] [address] 02/22/2025 1:30 PM EDT Telemedicine [facility] FNR OB [address] [place] [address] Flaquita Banuelos CNM [address] [place], [place] [address] 04/19/2025 10:45 AM EDT Office Visit [facility] SWS FM [address] [place] [address] Awilda Crenshaw, DO [address] [place] [address] documented as of this encounter Visit Diagnoses Not on filedocumented in this encounter Care Teams Coin Teller Relationship Specialty Start Date End Date Unallocated, Noms Dian, [facility] [place] [address] PCP - General 04/16/23 Flaquita Banuelos CNM [address] [place], [place] [address] Obstetrics and Gynecology 02/10/23 documented as of this encounter
--- OUTSIDE RECORDS SUMMARY | 2025-02-07 07:06 | XMS_ITS | Encounter Summary ---
Author Organization [facility] Address [address] [place] [address] Care Team Providers Care Car Wrecker Name Role Phone Flaquita Banuelos CNM Unavailable [phone] Unallocated, Noms Provider Primary Care Provi mart Encounter Details Date Type Department Care Team (Late st Contact Info) Description 01/29/2025 Bamboo flowsheet [facility] FNR OB [address] [place] [address] Flaquita Banuelos, CNM [address] [place], [place] [address] Social History Tobacco Use Types Packs/Day Years [...] How often do you attend chur or presybeterian services? More than 4 times per year [...] 01/18/2025 [facility] of Occupat ional Health [...] PM EDT Routine [facility] FNR OB [address] [place] [address] Flaquita Banuelos CNM [address] [place] [place] [address] 02/22/2025 1:30 PM EDT Telemedicine [facility] FNR OB [address] [place] [address] Flaquita Banuelos CNM [facility] [place], [place] [address] 04/19/2025 10:45 AM EDT Office Visit [facility] SWS FM [address] [place] [address] Awilda Crenshaw, DO [address] [place] [address] documented as of this encounter Visit Diagnoses Not on filedocumented in this encounter Care Teams Car Wrecker Relationship Specialty Start Date End Date Unallocated, Noms MD Dian [address] [place] [address] PCP - General 04/16/23 Flaquita Banuelos CNM [address] [place] [address] Obstetrics and Gynecology 02/10/23 documented as of this encounter
--- OUTSIDE RECORDS SUMMARY | 2025-02-07 07:06 | XMS_ITS | Encounter Summary ---
Author Organization [facility] Address [address] [place] [address] Care Team Providers Care Tax Staff Accountant Name Role Phone Vin Flaquita Mccoy CNM Unavailable [phone] Unallocated, Noms Provider Primary Care Provi mart Encounter Details Date Type Department Care Team (Late st Contact Info) Description 02/02/2025 Clinisync Result Encounter N[facility] External Department Unsolicited Nick Sam, DO [address] [facility] [address] [place] [address] Social History Tobacco Use Types Packs/Day Years [...] How often do you attend chur or holiness services? More than 4 times per year 06/07/2024 Do you belong to any clubs o r organizations such as episcopal groups, unions, fraternal or athletic groups, or [...] PM EDT Routine [facility] FNR OB [address] [place] [address] Flaquita Banuelos, CNM [address] [place], [place] [address] 02/22/2025 1:30 PM EDT Telemedicine [facility] FNR OB [address] [place] [address] Flaquita Banuelos, CN [address] [place], [place] [address] 04/19/2025 10:45 AM EDT Office Visit [facility] SWS FM [address] [place] [address] Awilda Crenshaw, DO [address] [place] [address] documented as of this encounter Procedures Procedure Name Priority Date/Time Associated Diagnosis Comments US OB BPP W NON-STRESS 02/02/2025 8:17 AM EDT documented in this encounter Results * US OB BPP W NON-STRESS (02/02/2025 8:17 AM EDT) Anatomical Region Laterality Modality Other 02/02/2025 8:17 AM EDT Narrative 02/02/2025 8:20 AM EDT The [address] [address] Ultrasound Report Signed Patient: REGINALD REYES MR#: [id number] : 1995 Acct:[id number] Age/Sex: 29 / F ADM Date: 02/02/25 Loc: US Attending Dr: Nick Sam D.O. Ordering Physician: Nick Sam D.O. Date of Service: 02/02/25 Procedure(s): US OB BPP w non-stress Accession Number(s): [id number] cc: Nick Sam D.O.; Physician,Non-Staff M.Vianey The [address] [address] Patient Name: REGINALD REYES MRN: [id number] date: 1995 Sex: F Assigned Patient Location: [facility] Current Patient Location: Accession/Order Number: [id number] Exam Date: 02/02/2025 08:16 Report Date: 02/02/2025 08:17 At the request of: NICK SAM DO [...] Mcleod M.D. 02/02/2025 8:17 AM Dictation Location: [place] [address] Electronically authenticated by: [id number] Y Date: 02/02/2025 08:17 Dictated By: Elle Mcleod M.D. Signed By: 02/02/25819 DD/ 6 TD/TT: Oxidized Finish Plater: Procedure Note Radiology, Radiologist, MD - 02/02/2025 [place] [address] Ultrasound Report Signed Patient: REGINALD REYES MMR#: [id number] : 1995Acct:[id number] Age/Sex: 29 / FADM Date: 02/02/25 Loc: US Attending Dr: Nick Sam D.O. Ordering Physician: Nick Sam D.O. Date of Service: 02/02/25 Procedure(s): US OB BPP w non-stress Accession Number(s): [id number] cc: Nick Sam D.O.; Physician,Non-Staff Mag[facility] [address] [address] Patient Name: REGINALD REYES MRN: [id number] date: 1995 Sex: F Assigned Patient Location: [facility] Current Patient Location: Accession/Order Number: [id number] Exam Date: 02/02/2025 08:16 Report Date: 02/02/2025 08:17 At the request of: NICK SAM DO Procedure: US OB BPP w non-stress BIOPHYSICAL PROFILE: CLINICAL INFORMATION: Type II diabetes mellitus COMPARISON: 01/26/2025 There is a single live intrauterine gestation in cephalic presentation.The reported gestational age is 37 weeks 4 days. The heart ratemeasures 147 beats per minute. FINDINGS: TONE: 1 [...] Mcleod M.D. 02/02/2025 8:17 AM Dictation Location: [place] [address] Electronically authenticated by: [id number] Y Date: 508:17 Dictated By: Elle Mcleod M.D. Signed By:02/02/25819 DD/ 6 TD/TT: Oxidized Finish Plater: Nick Sam DO [facility] Final Result documented in this encounter Visit Diagnoses Not on filedocumented in this encounter Care Teams Tax Staff Accountant Relationship Specialty Start Date End Date Unallocated, Noms Provider, [address] [place] [address] PCP - General 04/16/23 Flaquita Banuelos CNM [address] [place], [place] [phone] Obstetrics and Gynecology 02/10/23 documented as of this encounter
--- OUTSIDE RECORDS SUMMARY | 2025-02-07 07:06 | XMS_ITS | Encounter Summary ---
Author Organization [facility] Address [address] [place] [address] [place] [address] Care Team Providers Care Sales Representative Uniforms Name Role Phone Flaquita Banuelos CNM Unavailable [phone] Unallocated, Noms Provider Primary Care Provi mart Encounter Details Date Type Department Care Team (Late st Contact Info) Description 02/02/2025 Abstract [facility] [address] [place] [address] Awilda Crenshaw, DO [address] [facility] [address] [facility] [address] [place] [address] Social History Tobacco Use Types Packs/Day Years [...] How often do you attend chur or judaism services? More than 4 times per year [...] Recorded Patient Health Questionnaire-2 Score 0 01/18/2025 [facility] of Occupat ional Health [...] PM EDT Routine [facility] FNR OB [address] [place] [address] Flaquita Banuelos CNM [address] [place], [place] [address] 02/22/2025 1:30 PM EDT Telemedicine [facility] FNR OB [address] [place] [address] Flaquita Banuelos CNM [address] [place], [place] [address] 04/19/2025 10:45 AM EDT Office Visit [facility] SWS FM [address] [place] [address] Awilda Crenshaw, DO [address] [place] [address] documented as of this encounter Visit Diagnoses Not on filedocumented in this encounter Care Teams Sales Representative Uniforms Relationship Specialty Start Date End Date Unallocated, Noms MD Dian [address] [place] [address] PCP - General 04/16/23 Flaquita Banuelos CNM [facility] [place], [place] [phone] Obstetrics and Gynecology 02/10/23 documented as of this encounter
--- OUTSIDE RECORDS SUMMARY | 2025-02-07 07:06 | XMS_ITS | Clinical Summary ---
Author Organization [facility] Address [address] [place] [address] Care Team Providers Care Pie Icer Machine Name Role Phone Flaquita Banuelos CNM Unavailable [phone] Unallocated, [facility] Provider MD Primary Care Provi mart Allergies [...] type 2 diabetes mellitus in second trimester ([facility]) 1-2 units breakfast, 5-12 units lunch/dinner (max daily 50 units) 15 mL 3 5 Active ferrous sulfate (Fe Tabs) 325 (65 Fe) MG EC tabletIndicatio ns:Anemia during in third trimester ([facility]) Take 1 tablet (325 mg) by mouth in the morning and 1 tablet (325 mg) before bedtime. Take before meals. Do not crush, chew, or split. 60 tablet 11 5 12/29/19 26 Active docusate sodium (Colace) 100 MG capsuleIndicati ons:Anemia during in third trimester ([facility]) Take 1 capsule (100 mg) by mouth [...] 5 01/19/20 25 Discontinu ed(Dose adjustment ) Active Problems Problem Noted Date Diagnosed Date with type 2 diabet es mellitus in third trimester ([facility]) 09/01/2024 Assessment & Plan (01/18/2025 10:17 AM [...] Encounters Date Type Department Care Team Description 02/06/2025 4:30 PM EDT Routine [facility] OB [address] [place] [address] Flaquita Banuelos CNM Type 2 diabetes mellitus without complication, without long-term current use of insulin (HCC) 02/06/2025 Bamboo flowsheet [facility] [address] [place] [address] Flaquita Banuelos CNM 02/02/2025 Abstract [facility] DEMO DEPARTMENT [address] [place] [phone] Awilda Crenshaw, 02/02/2025 Clinisync Result Encounter [facility] External Department Unsolicited Nick Sam DO 01/29/2025 4:30 PM EDT Routine [facility] OB [address] [place] [phone] Flaquita Banuelos CNM with type 2 diabetes mellitus in third trimester ([facility]) (Primary Dx); Type 2 diabetes mellitus treated with insulin (HCC); Encounter for care of first , third trimester ([facility]) 01/29/2025 Bamboo flowsheet [facility] OB [address] [place] [address] Flaquita Banuelos CNM 01/26/2025 Clinisync Result Encounter NOMS External Department Unsolicited Nick Sam DO 01/22/2025 4:30 PM EDT Routine [facility] OB [address] [place] [phone] Flaquita Banuelos CNM screening for streptococcus B ([facility]) (Primary Dx); with type 2 diabetes mellitus in third trimester ([facility]); Type 2 diabetes mellitus treated with insulin (HCC) 01/22/2025 Bamboo flowsheet [facility] [address] [place] [phone] Flaquita Banuelos CNM 01/19/2025 Clinisync Result Encounter NOMS External Department Unsolicited Nick Sam DO 01/18/2025 8:30 AM EDT Office Visit [facility] [address] [place] [address] Awilda Crenshaw, with type 2 diabetes mellitus in third trimester ([facility]) 01/18/2025 Travel 01/15/2025 4:30 PM EDT Routine [facility] [address] [place] [phone] Flaquita Banuelos CNM Type 2 diabetes mellitus without complication, without long-term current use of insulin (HCC) (Primary Dx); with type 2 diabetes mellitus in third trimester ([facility]) 01/15/2025 Bamboo flowsheet [facility] [address] [place] [phone] Flaquita Banuelos CNM 01/12/[address] [address] [place] [address] Estelle Hughes LPN 01/12/2025 Clinisync Result Encounter NOMS External Department Unsolicited Nick Sam, DO 01/12/2025 Clinisync Result Encounter NOMS External Department Unsolicited Nick Sam, DO 01/09/2025 4:00 PM EDT Routine [facility] OB [address] [facility] [place] [phone] Flaquita Banuelos, CNM Type 2 diabetes mellitus treated with insulin ([facility]) (Primary Dx); Encounter for care of first , third trimester ([facility]) 01/09/2025 Bamboo flowsheet [facility] [address] [place] [phone] Flaquita Banuelos, CNM 01/05/2025 Clinisync Result Encounter NOMS External Department Unsolicited Nick Sam, DO 01/05/2025 [place] [address] [place] [address], [place] [phone] Flaquita Banuelos, CATHIEM with type 2 diabetes mellitus in third trimester ([facility]) 01/04/2025 [place] [address] [place] [phone] Flaquita Banuelos, CATHIEM 01/01/2025 4:30 PM EDT Routine [facility] [address] [facility] [place] [address] Flaquita Banuelos, CNM Screening for iron deficiency anemia (Primary Dx); Dysuria 01/01/2025 Bamboo flowsheet [facility] [address] [place] [phone] Flaquita Banuelos, CNM 01/01/2025 Travel 12/29/2024 Clinisync Result Encounter [facility]OMS External Department Unsolicited Nick Sam, DO 12/28/2024 [place] [address] [place] [phone] Abby Saul MA Anemia during in third trimester ([facility]) 12/27/2024 Results Follow-Up [facility] OB [address] [facility] [place] [address] Abby Saul MA 12/27/2024 Refill [facility] OB [address] [place] [address], [place] [phone] Abby Saul MA Anemia during in third trimester ([facility]) 12/26/2024 4:00 PM EDT Routine [facility] OB [address] [place] [address], [place] [phone] Flaquita Banuelos, SADIA with type 2 diabetes mellitus in third trimester ([facility]) (Primary Dx); Screening for iron deficiency anemia; Type 2 diabetes mellitus treated with insulin ([facility]) 12/26/2024 Bamboo flowsheet [facility] OB [address] [place] [address], [place] [phone] Flaquita Banuelos, SADIA 12/25/2024 10:20 AM EDT Consult [facility] [address] [facility] [place] [address] Nick Sam DO with type 2 diabetes mellitus in third trimester ([facility]) 12/25/2024 Travel 12/25/2024 Bamboo flowsheet [facility] [address] [facility] [address] Nick Sam DO 12/20/2024 Results Follow-Up [facility] OB [address] [facility] [place] [address] Flaquita Banuelos, SADIA 12/20/2024 Orders Only [facility] OB [facility] [place] [phone] Flaquita Banuelos, CATHIEM with type 2 diabetes mellitus in third trimester ([facility]) 12/11/2024 4:30 PM EDT Ancillary Procedure [facility] ULTRASOUND [address] [facility] [address] [place] [phone] related condition in third trimester ([facility]) 12/11/2024 4:00 PM EDT Routine [facility] OB [address] [place] [phone] Flaquita Banuelos CNM with type 2 diabetes mellitus in third trimester ([facility]) 12/11/2024 Bamboo flowsheet [facility] OB [address] [facility] [place] [phone] Flaquita Banuelos CNM 12/11/2024 Travel 12/07/2024 8:15 AM EDT Office Visit [facility] [address] [place] [address] Awilda Crenshaw, with type 2 diabetes mellitus in third trimester ([facility]) (Primary Dx); with type 2 diabetes mellitus in second trimester ([facility]) 12/07/2024 Abstract [facility] DEMO DEPART[facility] [address] [place] [address] Unallocated, Danay Biggs MD 12/07/2024 Travel 12/04/2024 Travel 11/30/2024 Abstract [facility] DEM[facility] DEPARTMENT [address] [place] [address] Awilda Crenshaw DO 11/30/2024 Travel 11/29/2024 Telephone [facility] [address] [place] [address] Bonny Garcia LPN BG readings 11/15/2024 4:30 PM EDT Routine [facility] OB [address] [place] [phone] Flaquita Banuelos CNM Encounter for care of first , second trimester ([facility]) (Primary Dx); related condition in third trimester ([facility]); Gestational diabetes mellitus (GDM) requiring insulin ([facility]) 11/15/2024 Bamboo flowsheet [facility] OB [address] [place] [phone] Flaquita Banuelos CNM 11/14/2024 Travel 11/10/2024 Abstract [facility] [address] [place] [address] Awilda Crenshaw, DO from Last 3 Months [...] any clubs o r organizations such as protestant groups, unions, fraternal or athletic groups, or [...] Recorded Patient Health Questionnaire-2 Score 0 01/18/2025 [facility] [place] of Occupat ional Health - Occupational Stress [...] any time in the past 12 m [facility], were you homeless or living in a [...] Pressure 120/80 02/06/2025 4:26 PM EDT Pulse 88 01/18/2025 8:28 AM EDT Temperature 36.7 C (98 F) 01/18/2025 8:28 AM EDT Respiratory Rate - - Oxygen Saturation 98% 01/18/2025 8:28 AM EDT Inhaled Oxygen Concentration - - Weight 110 kg (243 lb) 02/06/2025 4:26 PM EDT Height 177.8 cm (5' 10 ) 01/18/2025 8:28 AM EDT Body Mass Index 34.87 01/18/2025 8:28 AM EDT Plan of Treatment Upcoming Encounters Date Type Department Care Team (Late st Contact Info) Description 02/12/2025 4:30 PM EDT Routine [facility] OB [address] [place] [phone] Flaquita Banuelos, [facility] [address] [place] [address] 02/22/2025 1:30 PM EDT Telemedicine [facility] OB [address] [place] [phone] Flaquita Banuelos, [facility] [address] [place] [address] 04/19/2025 10:45 AM EDT Office Visit [facility] [address] [place] [address] Awilda Crenshaw, DO [address] [place], [place] [phone] Health Maintenance Due Date Last Done Comments Diabetes: Retinopathy Screening 2005 Influenza Vaccine (Season Ended) 2025 Diabetes: Hemoglobin A1C 04/20/2025 025, 10/09/2024, 07/10/2024, Additional history exists Diabetes: Urine Protein Screening 08/30/2025 025 Procedures Procedure Name Priority Date/Time Associated Diagnosis Comments US OB BPP W NON-STRESS 02/02/2025 8:17 AM EDT US OB BPP W NON-STRESS 01/26/2025 8:30 AM EDT STREPTOCCOUS, GROUP B CULTURE Routine 01/22/2025 5:00 PM EDT screening for streptococcus B ([facility]) US OB BPP W NON-STRESS 01/19/2025 7:37 AM EDT POCT GLYCOSYLATED HEMOGLOBIN (HGB A1C) Routine 01/18/2025 8:38 AM EDT with type 2 diabetes mellitus in third trimester ([facility]) US OB BPP W NON-STRESS 01/12/2025 12:00 [...] type 2 diabetes mellitus in third trimester ([facility]) US OB FOLLOW UP TRANSABDOMINAL APPROACH Routine 12/11/2024 4:54 PM EDT related condition in third trimester ([facility]) from Last 3 Months Results * US OB BPP W NON-STRESS (02/02/2025 8:17 AM EDT) Only the most recent of6 resultswithin the time period is included. Anatomical Region Laterality Modality Other 02/02/2025 8:17 AM EDT Narrative 02/02/2025 8:20 [place] [address] Ultrasound Report Signed Patient: REGINALD REYES MR#: [id number] : 1995 Acct:[id number] Age/Sex: 29 / F ADM Date: 02/02/25 Loc: US Attending Dr: Nick Sam D.O. Ordering Physician: Nick Sam D.O. Date of Service: 02/02/25 Procedure(s): US OB BPP w non-stress Accession Number(s): [id number] cc: Nick Sam D.O.; Physician,Non-Staff [place] [id number] Patient Name: REGINALD REYES MRN: [facility]:[id number] date: 1995 Sex: F Assigned Patient Location: [facility] Current Patient Location: Accession/Order Number: [id number] Exam Date: 02/02/2025 08:16 Report Date: 02/02/2025 [...] Mcleod M.D. 02/02/2025 8:17 AM Dictation Location: [place] [address] Electronically authenticated by: [id number] Y Date: 02/02/2025 08:17 Dictated By: Elle Mcleod M.D. Signed By: 02/02/25819 DD/ 6 TD/TT: Gerontology Aide: Procedure Note Radiology, Radiologist, MD - 02/02/2025 [place] [address] Ultrasound Report Signed Patient: REGINALD REYES MMR#: [id number] : 1995Acct:[id number] Age/Sex: 29 / FADM Date: 02/02/25 Loc: US Attending Dr: Nick Sam D.O. Ordering Physician: Nick Sam D.O. Date of Service: 02/02/25 Procedure(s): US OB BPP w non-stress Accession Number(s): [id number] cc: Nick Sam D.O.; Physician,Non-Staff [place] [address] Patient Name: REGINALD REYES MRN: [facility]:[id number] date: 1995 Sex: F Assigned Patient Location: [facility] Current Patient Location: Accession/Order Number: [id number] Exam Date: 02/02/2025 08:16 Report Date: 02/02/2025 [...] Mcleod M.D. 02/02/2025 8:17 AM Dictation Location: [place] [address] Electronically authenticated by: [id number] Y Date: 508:17 Dictated By: Elle Mcleod M.D. Signed By:02/02/25819 DD/ 6 TD/TT: Gerontology Aide: us Nick Sam DO [facility] Final Result * STREPTOCCOUS, GROUP B CULTURE (01/22/2025 5:00 PM EDT) MICRO NUMBER [id number] [facility] SPECIMEN QUALITY Adequate [facility] SOURCE VAGINAL/ANOR ECTAL [facility] STATUS FINAL [facility] RESULT SEE NOTE [facility] Comment: No group B Streptococcus isolated COMMENT SEE NOTE [facility] Comment: Note per CDC guidelines optimal recovery is achieved by swabbing both the lower vagina and rectum (through the anal sphincter). 01/22/2025 5:00 PM EDT 01/23/2025 7:52 AM EDT Narrative Resulting Agency Comment Performing Organization Information Site ID: QPT Name: [facility] Address: [address] [place] [address], [address] [place] [phone] Director: Devendra Aguilar MD us Flaquita Banuelos CNM LAB BODY FLUIDS AND STOOLS O RDERABLES Final Result [facility] * POCT glycosylated hemoglobin (Hb A1C) docked device (01/18/2025 8:38 AM EDT) Hemoglobin A1C 6.1 Blood Venous blood specimen / Unknown 01/18/2025 8:38 AM EDT us Awilda Crenshaw DO POINT OF CARE TEST ENTER/E DIT ORDERABLES Final Result * US OB GROWTH (01/12/2025 12:00 PM EDT) Anatomical Region Laterality Modality Other 01/12/2025 12:0 0 PM EDT Narrative 01/12/2025 12:03 [place] [address] Ultrasound Report Signed Patient: REGINALD REYES MR#: [id number] : 1995 Acct:[id number] Age/Sex: 29 / F ADM Date: 01/12/25 Loc: US Attending Dr: Nick Sam D.O. Ordering Physician: Nick Sam D.O. Date of Service: 01/12/25 Procedure(s): US OB growth Accession Number(s): [id number] cc: Nick Sam D.O.; Physician,Non-Staff [place] [id number] Patient Name: REGINALD REYES MRN: [id number] date: 1995 Sex: F Assigned [facility] [facility] [place] Patient [place] [facility] Accession/Order Number: [id number] Exam Date: 01/12/2025 11:54 Report Date: 01/12/2025 [...] Mcleod M.D. 01/12/2025 12:00 PM Dictation Location: [place] [address] Electronically authenticated by: [id number] Y Date: 01/12/2025 12:00 Dictated By: Elle Mcleod M.D. Signed By: 01/12/25 1203 DD/ 1200 TD/TT: Gerontology Aide: Procedure Note Radiology, Radiologist, - 01/12/2025 [place] [address] Ultrasound Report Signed Patient: REGINALD REYES MMR#: [id number] : 1995Acct:[id number] Age/Sex: FADM Date: 01/12/25 Loc: US Attending Dr: Nick Sam D.O. Ordering Physician: Nick Sam D.O. Date of Service: 01/12/25 Procedure(s): US OB growth Accession Number(s): [id number] cc: Nick Sam D.O.; Physician,Non-Staff [facility] [place] [id number] Patient Name: REGINALD REYES MRN: [facility]:[id number] date: 1995 Sex: F Assigned Patient [facility] [facility] Current Patient [place] [facility] Accession/Order Number: [id number] Exam Date: 01/12/2025 11:54 Report Date: 01/12/2025 [...] Mcleod M.D. 01/12/2025 12:00 PM Dictation Location: [place] [address] Electronically authenticated by: [id number] Y Date: 2:00 Dictated By: Elle Mcleod M.D. Signed By:01/12/25 1203 DD/ 1200 TD/TT: Gerontology Aide: us Nick Flaco DO [facility] Final Result * Urine culture (01/01/2025 5:00 PM EDT) MICRO NUMBER [id number] [facility] SPECIMEN QUALITY Adequate [facility] SOURCE: ([facility]) [...] Performing Organization Information Site ID: QPT Name: [employer] [facility] Address: [address] [place] [address], [address] [place] [phone] Director: Devendra Aguilar MD Flaquita Banuelos CNM [...] Information Site ID: QPT Name: [facility] Address: [address] [place] [address], [address] [place] [phone] Director: Devendra Aguilar MD us Flaquita Banuelos [...] II, MD, PHD at 12-Dec-2024 07:13:14 PM [facility] Procedure Note Yuli Mccarthy MD - [...] signed by YULI MCCARTHY II, MD, PHD [id number] 07:13:14 PM [facility] us Flaquita Banuelos CNM IMG OB US PROCEDURES Final R esult from Last 3 Months Insurance [facility] Care Teams Pie Icer Machine Relationship Specialty Start Date End Date Unallocated, [facility] Provider, [address] [place] [address] PCP - General 04/16/23 Flaquita Banuelos CNM [address] [facility] [place] [address] Obstetrics and Gynecology 02/10/23
--- OUTSIDE RECORDS SUMMARY | 2025-02-07 07:06 | XMS_ITS | Encounter Summary ---
Author Organization [facility] Address [address] [place] [address] Care Team Providers Care Radiator Mechanic Name Role Phone Flaquita Banuelos CNM Unavailable [phone] Unallocated, [facility] Provider Primary Care Provi mart Encounter Details Date Type Department Care Team (Late st Contact Info) Description 01/04/2025 Results Follow-Up [facility] OB [address] [place] [address] Flaquita Banuelos, CNM [address] [place], [place] [phone] Social History Tobacco Use Types Packs/Day Years [...] PM EDT Routine [facility] OB [address] [place] [address] Flaquita Banuelos CNM [address] [place] [address] 02/22/2025 1:30 PM EDT Telemedicine [facility] OB [address] [facility] [place] [phone] Flaquita Banuelos CNM [facility], [place] [phone] 04/19/2025 10:45 AM EDT Office Visit [facility] [address] [place] [address] Awilda Crenshaw, DO [address] [place] [address] documented as of this encounter Visit Diagnoses Not on filedocumented in this encounter Care Teams Radiator Mechanic Relationship Specialty Start Date End Date Unallocated, Noms MD Dian [address] [place] [address] PCP - General 04/16/23 Flaquita Banuelos CNM [address] [place] [phone] Obstetrics and Gynecology 02/10/23 documented as of this encounter
--- OUTSIDE RECORDS SUMMARY | 2025-02-07 07:06 | XMS_ITS | Encounter Summary ---
Author Organization [facility] Address [id number] [address] [place] [address] Care Team Providers Care Engraver Machine Name Role Phone Flaquita Banuelos BAMBI-CNM Primary Care Provider [phone] Encounter Details Date Type Department Care Team (Late st Contact Info) Description 09/11/2024 Orders Only Maternal- Medicine at [facility] [address] [place] [phone] Yudelka Randall, SABRINA with type 2 diabetes [...] BLOOD ORDERABLES Final Result Performing Organization Address [facility] Co de Phone Number MANUALLY TRANSCRIBED RESULTS * Protein creat ratio (08/30/2024) 08/30/2024 us Svetlana E Lavoy PA-C URINE ORDERABLES Final Resu lt Performing Organization Address [facility] Co de Phone Number SUNQUEST * Thyroid profile includes TSH FT4 (08/30/2024) 08/30/2024 us Svetlana E Lavoy PA-C LAB BLOOD ORDERABLES Final Result Performing Organization Address [facility] Phone Number MANUALLY TRANSCRIBED RESULTS documented in this encounter Visit Diagnoses Diagnosis with type 2 diabetes mellitus in second trimester documented in this encounter Additional Health Concerns Assessment Noted Time PHQ-9 Depression Total Score: 0 03/03/20 17 3:00 PM EDT documented as of this encounter Care Teams Engraver Machine Relationship Specialty Start Date End Date Flaquita Banuelos APRN-CNM [address] [place] [address] PCP - General Nurse Paint Line Production Supervisor 04/15/18 documented as of this encounter
--- OUTSIDE RECORDS SUMMARY | 2025-02-07 07:06 | XMS_ITS | Encounter Summary ---
Author Organization [facility] Address [address] [place] [address] Care Team Providers Care Operations Program Manager Name Role Phone Vin Flaquita Mccoy CNM Unavailable [phone] Unallocated, Noms Provider Primary Care Provi mart Encounter Details Date Type Department Care Team (Late st Contact Info) Description 01/26/2025 Clinisync Result Encounter [facility] External Department Unsolicited Nick Sam, DO [address] [facility] [place] [address] Social History Tobacco Use Types Packs/Day Years [...] How often do you attend chur or anglican services? More than 4 times per year [...] Health Questionnaire-2 Score 0 01/18/2025 [facility] - [...] any time in the past 12 m [facility], were you homeless or living in a [...] PM EDT Routine [facility] F[facility] OB [address] [place] [address] Flaquita Banuelos, CNM [address] [place], [place] [id number] 02/22/2025 1:30 PM EDT Telemedicine [facility] [address] [facility] [place] [phone] Flaquita Banuelos, CN [address] [place], [place] [id number] 04/19/2025 10:45 AM EDT Office Visit [facility] [address] [place] [phone] Awilda Crenshaw, DO [address] [place] [address] documented as of this encounter Procedures Procedure Name Priority Date/Time Associated Diagnosis Comments US OB BPP W NON-STRESS 01/26/2025 8:30 AM EDT documented in this encounter Results * US OB BPP W NON-STRESS (01/26/2025 8:30 AM EDT) Anatomical Region Laterality Modality Other 01/26/2025 8:30 AM EDT Narrative 01/26/2025 8:32 AM EDT The [address] [address] Ultrasound Report Signed Patient: REGINALD REYES MR#: [id number] : 1995 Acct:[id number] Age/Sex: 29 / F ADM Date: 01/26/25 Loc: US Attending Dr: Nick Sam D.O. Ordering Physician: Nick Sam D.O. Date of Service: 01/26/25 Procedure(s): US OB BPP w non-stress Accession Number(s): [id number] cc: Nick Sam D.O.; Physician,Non-Staff M.Vianey The [address] [address] Patient Name: REGINALD REYES MRN: [id number] date: 1995 Sex: F Assigned Patient Location: [facility] Current Patient Location: Accession/Order Number: [id number] Exam Date: 01/26/2025 08:28 Report Date: 01/26/2025 08:30 At the request of: NICK SAM DO [...] Mcleod M.D. 01/26/2025 8:30 AM Dictation Location: [place] [address] Electronically authenticated by: [id number] Y Date: 01/26/2025 08:30 Dictated By: Elle Mcleod M.D. Signed By: 01/26/25 0832 DD/ TD/TT: Outside Machinist Apprentice: Procedure Note Radiology, Radiologist, - 01/26/2025 [place] [address] Ultrasound Report Signed Patient: REGINALD REYES MMR#: [id number] : 1995Acct:[id number] Age/Sex: 29 / FADM Date: 01/26/25 Loc: US Attending Dr: Nick Sam D.O. Ordering Physician: Nick Sam D.O. Date of Service: 01/26/25 Procedure(s): US OB BPP w non-stress Accession Number(s): [id number] cc: Nick Sam D.O.; Physician,Non-Staff [place] [address] Patient Name: REGINALD REYES MRN: [facility]:[id number] date: 1995 Sex: F Assigned Patient Location: [facility] Current Patient Location: Accession/Order Number: [id number] Exam Date: 01/26/2025 08:28 Report Date: 01/26/2025 08:30 At the request of: NICK SAM DO Procedure: US OB BPP w non-stress BIOPHYSICAL PROFILE: CLINICAL INFORMATION: WITH TYPE 2 DIABETES MELLITUS O24.113 COMPARISON: 01/19/2025 There is a single live intrauterine gestation in cephalic presentation.The reported gestational age is 36 weeks 4 days. The heart ratemeasures 134 beats per minute. FINDINGS: TONE: 1 [...] Mcleod M.D. 01/26/2025 8:30 AM Dictation Location: [place] [address] Electronically authenticated by: [id number] Y Date: 508:30 Dictated By: Elle Mcleod M.D. Signed By:01/26/25 0832 DD/ TD/TT: Outside Machinist Apprentice: Nick Sam DO [facility] Final Result documented in this encounter Visit Diagnoses Not on filedocumented in this encounter Care Teams Operations Program Manager Relationship Specialty Start Date End Date Unallocated, Noms Provider, [address] [place] [address] PCP - General 04/16/23 Flaquita Banuelos CNM [address] [place], [place] [phone] Obstetrics and Gynecology 02/10/23 documented as of this encounter
--- OUTSIDE RECORDS SUMMARY | 2025-02-07 07:06 | XMS_ITS | Encounter Summary ---
Author Organization [facility] Address [address] [place] [address] Care Team Providers Care Naval Surface Fire Support Planner Name Role Phone Flaquita Banuelos CNM Unavailable [phone] Unallocated, Noms Provider Primary Care Provi mart Encounter Details Date Type Department Care Team (Late st Contact Info) Description [facility]/07[facility]2024 [facility] [address] [place] [phone] Unallocated, Noms Provider, [address] [place], [place] [phone] Social History Tobacco Use Types Packs/Day Years [...] How often do you attend chur or baptism services? More than 4 times per year [...] FNR OB [address] [facility] [place] [phone] Flaquita Banuelos, CATHIEM [address] [place] [address] 02/22/2025 1:30 PM EDT Telemedicine [facility] [address] [facility] [place] [phone] Flaquita Banuelos CNM [address] [place] [address] 04/19/2025 10:45 AM EDT Office Visit [facility] [address] [place] [address] Awilda Crenshaw, DO [address] [place] [address] documented as of this encounter Visit Diagnoses Not on filedocumented in this encounter Care Teams Naval Surface Fire Support Planner Relationship Specialty Start Date End Date Unallocated, Noms MD [address] [place] [address] PCP - General 04/16/23 Flaquita Banuelos CNM [address] [place] [address] Obstetrics and Gynecology 02/10/23 documented as of this encounter
--- OUTSIDE RECORDS SUMMARY | 2025-02-07 07:06 | XMS_ITS | Encounter Summary ---
Author Organization [facility] Address [address] [place] [address] Care Team Providers Care Labeling Strategist Name Role Phone Flaquita Banuelos CNM Unavailable [phone] Unallocated, Noms Provider Primary Care Provi mart Encounter Details Date Type Department Care Team (Late st Contact Info) Description 11/30/2024 [facility] [address] [place] [address] Awilda Crenshaw, DO [address] [place] [address] Social History Tobacco Use Types Packs/Day Years [...] Recorded Patient Health Questionnaire-2 Score 0 10/09/2024 [facility] [...] PM EDT Routine [facility] FNR OB [address] [place] [address] Flaquita Banuelos CNM [address] [place], [place] [phone] 02/22/2025 1:30 PM EDT Telemedicine [facility] OB [address] [place] [phone] Flaquita Banuelos CNM [address] [place], [place] [address] 04/19/2025 10:45 AM EDT Office Visit [facility] [address] [place] [address] Awilda Crenshaw, DO [address] [place] [address] documented as of this encounter Visit Diagnoses Not on filedocumented in this encounter Care Teams Labeling Strategist Relationship Specialty Start Date End Date Unallocated, Noms MD Dian [address] [place] [address] PCP - General 04/16/23 Flaquita Banuelos CNM [facility] [place], [place] [phone] Obstetrics and Gynecology 02/10/23 documented as of this encounter
--- OUTSIDE RECORDS SUMMARY | 2025-02-07 07:06 | XMS_ITS | Encounter Summary ---
Author Organization [facility] Address [address] [place] [address] Care Team Providers Care Stitcher Standard Machine Name Role Phone Flaquita Banuelos CNM Unavailable [phone] Unallocated, Noms Provider Primary Care Provi mart Encounter Details Date Type Department Care Team (Late st Contact Info) Description 02/06/2025 Bamboo flowsheet [facility] [address] [place] [phone] Flaquita Banuelos, CNM [address] [place], [place] [phone] Social History Tobacco Use Types Packs/Day Years [...] How often do you attend chur or tenriism services? More than 4 times per year [...] Recorded Patient Health Questionnaire-2 Score 0 01/18/2025 [facility] - [...] PM EDT Routine [facility]NR OB [address] [place] [phone] Flaquita Banuelos CNM [address] [place] [address] 02/22/2025 1:30 PM EDT Telemedicine [facility] OB [address] [place] [phone] Flaquita Banuelos CNM [facility] [place], [place] [phone] 04/19/2025 10:45 AM EDT Office Visit [facility] [address] [place] [address] Awilda Crenshaw, DO [address] [place] [address] documented as of this encounter Visit Diagnoses Not on filedocumented in this encounter Care Teams Stitcher Standard Machine Relationship Specialty Start Date End Date Unallocated, Noms MD Dian [address] [place] [address] PCP - General 04/16/23 Flaquita Banuelos CNM [address] [place] [id number] Obstetrics and Gynecology 02/10/23 documented as of this encounter
--- OUTSIDE RECORDS SUMMARY | 2025-02-07 07:07 | XMS_ITS | CCD ---
Author Organization [facility] Care Team Providers Care Drophammer Operator Name Role Phone Unavailable Primary Care Provider Unavailabl e FLORO, DARÍO Referring Unavailable Floro CNM, Darío L Unavailable Unallocated , Noms Provider Primary Care Provi mart Awilda Delatorre DO Unavailable Unallocated , Noms Provider Primary Care Provi mart Floro BUNDLE HELPER-CNM, Darío Primary Care Provider [phone] SVETLANA JACK Attending Unavailable FLORO, DARÍO Referring Unavailable SHAUNA DENNY Attending Unavailable Unavailable Primary Care Provider Unavailabl e SVETLANA JACK Attending Unavailable FLORO, DARÍO Referring Unavailable FLORO, DARÍO Primary Care Unavailable SHAUNA DENNY Attending Unavailable ARIELLA ROBERTO Attending Unavailable FLORO, DARÍO Referring Unavailable FLORO, DARÍO Primary Care Unavailable CLARKE MODI Attending Unavailable FLORO, DARÍO Referring Unavailable FLORO, DARÍO Primary Care Unavailable CLAREK MODI Attending Unavailable FLORO, DARÍO Referring Unavailable FLORO, DARÍO Primary Care Unavailable AYE SAUCEDO Attending Unavailable SVETLANA JACK Referring Unavailable FLORO, DARÍO Primary Care Unavailable FLORO, DARÍO Referring Unavailable FLORO, DARÍO Primary Care Unavailable FLORO, DARÍO Referring Unavailable FLORO, DARÍO Primary Care Unavailable TRICIA ROWLAND Attending Unavailable AYE SAUCEDO Referring Unavailable FLORO, DARÍO Primary Care Unavailable Awilad Delatorre DO Unavailable [phone] DARÍO BANUELOS Attending Unavailable PETZNICK, AWILDA M [...] complication, without long-term current use of insulin ([facility]/H[facility]) 15 units in the am and 25 [...] type 2 diabetes mellitus in second trimester ([facility]) 1-2 units breakfast, 5-12 units lunch/dinner [...] US OB BPP W NON-STRESS on 02-02-2025 [place] [address] Ultrasound Report Signed Patient: REGINALD REYES MR#: [id number] : 1995 Acct:[id number] Age/Sex: 29 / F ADM Date: 02/02/25 Loc: US Attending Dr: Henry Sam D.O. Ordering Physician: Henry Sam D.O. Date of Service: 02/02/25 Procedure(s): US OB BPP w non-stress Accession Number(s): [id number] cc: Henry Sam D.O.; Physician,Non-Staff [facility] [place] [address] Patient Name: REGINALD REYES MRN: [id number]:[id number] date: 1995 Sex: F Assigned Patient Location: [facility] Current Patient Location: Accession/Order Number: [id number] Exam Date: 02/02/2025 08:16 Report Date: 02/02/2025 [...] Mcleod M.D. 02/02/2025 8:17 AM Dictation Location: [place] [address] Electronically authenticated by: [id number] Y Date: 02/02/2025 08:17 Dictated By: Elle Mcleod M.D. Signed By: 02/02/25819 DD/ 6 TD/TT: Idea Worker: [facility] Radiology, Radiologist, MD - 02/02/2025 [place] [address] Ultrasound Report Signed Patient: REGINALD REYES MR#: [id number] : 1995 Acct:[id number] Age/Sex: 29 / F ADM Date: 02/02/25 Loc: US Attending Dr: eHnry Sam D.O. Ordering Physician: Henry Sam D.O. Date of Service: 02/02/25 Procedure(s): US OB BPP w non-stress Accession Number(s): [id number] cc: Henry Sam D.O.; Physician,Non-Staff [facility] [place] [id number] Patient Name: REGINALD REYES MRN: [facility]:[id number] date: 1995 Sex: F Assigned Patient Location: [facility] Current Patient Location: Accession/Order Number: [id number] Exam Date: 02/02/2025 08:16 Report Date: 02/02/2025 [...] Mcleod M.D. 02/02/2025 8:17 AM Dictation Location: [place] [address] Electronically authenticated by: [id number] Y Date: 02/02/2025 08:17 Dictated By: Elle Mcleod M.D. Signed By: 02/02/25819 DD/ 6 TD/TT: Idea Worker: [facility] Radiology Study observation (narrative) [facility] US OB BPP W NON-STRESS Ordered By: Radiologist Radiology on 02-02-2025 [facility] Work Phone: US OB BPP W NON-STRESS on 01-26-2025 [place] [address] Ultrasound Report Signed Patient: REGINALD REYES MR#: [id number] : 1995 Acct:[id number] Age/Sex: 29 / F ADM Date: 01/26/25 Loc: US Attending Dr: Henry Sam D.O. Ordering Physician: Henry Sam D.O. Date of Service: 01/26/25 Procedure(s): US OB BPP w non-stress Accession Number(s): [id number] cc: Henry Sam D.O.; Physician,Non-Staff Magaly The [address] [address] Patient Name: REGINALD REYES MRN: [id number] date: 1995 Sex: F Assigned Patient Location: [facility] Current Patient Location: Accession/Order Number: [id number] Exam Date: 01/26/2025 08:28 Report Date: 01/26/2025 [...] Mcleod M.D. 01/26/2025 8:30 AM Dictation Location: [place] [address] Electronically authenticated by: [id number] Y Date: 01/26/2025 08:30 Dictated By: Elle Mcleod M.D. Signed By: 01/26/25 0832 DD/ TD/TT: Idea Worker: [facility] Radiology, Radiologist, - 01/26/2025 [place] [address] Ultrasound Report Signed Patient: REGINALD REYES MR#: [id number] : 1995 Acct:[id number] Age/Sex: 29 / F ADM Date: 01/26/25 Loc: US Attending Dr: Henry Sam D.O. Ordering Physician: Henry Sam D.O. Date of Service: 01/26/25 Procedure(s): US OB BPP w non-stress Accession Number(s): [id number] cc: Henry Sam D.O.; Physician,Non-Staff [facility] [place] [address] Patient Name: REGINALD REYES MRN: [facility]:[id number] date: 1995 Sex: F Assigned Patient Location: [facility] Current Patient Location: Accession/Order Number: [id number] Exam Date: 01/26/2025 08:28 Report Date: 01/26/2025 [...] Mcleod M.D. 01/26/2025 8:30 AM Dictation Location: [place] [address] Electronically authenticated by: [id number] Y Date: 01/26/2025 08:30 Dictated By: Elle Mcleod M.D. Signed By: 01/26/25 0832 DD/ 9 TD/TT: Idea Worker: [facility] [employer] Radiology Study observation (narrative) [facility] US OB BPP W NON-STRESS Ordered By: Radiologist Radiology on 01-26-2025 [facility] [employer] Work Phone: US OB BPP W NON-STRESS on 01-19-2025 [place] [address] Ultrasound Report Signed Patient: REGINALD REYES MR#: [id number] : 1995 Acct:[id number] Age/Sex: 29 / F ADM Date: 01/19/25 Loc: [facility] 250-[address]: Henry Sam D.O. Ordering Physician: Henry Sam D.O. Date of Service: 01/19/25 Procedure(s): US OB BPP w non-stress Accession Number(s): [id number] cc: Henry Sam D.O.; Physician,Non-Staff Magaly [place] [address] Patient Name: REGINALD REYES MRN: [facility]:[id number] date: 1995 Sex: F Assigned Patient Location: [facility] Current Patient Location: [facility] Accession/Order Number: [id number] Exam Date: 01/19/2025 07:35 Report Date: 01/19/2025 [...] Roberson M.D. 01/19/2025 7:37 AM Dictation Location: [place] [address] Electronically authenticated by: [id number] Y Date: 01/19/2025 07:37 Dictated By: Zak Roberson M.D. Signed By: 01/19/25 0739 DD/ 0737 TD/TT: Idea Worker: [facility] Radiology, Radiologist, - 01/19/2025 The [place] [id number] Ultrasound Report Signed Patient: REGINALD REYES MR#: [id number] : 1995 Acct:[id number] Age/Sex: 29 / F ADM Date: 01/19/25 Loc: [facility] 250-[address]: Henry Sam D.O. Ordering Physician: Henry Sma D.O. Date of Service: 01/19/25 Procedure(s): US OB BPP w non-stress Accession Number(s): [id number] cc: Henry Sam D.O.; Physician,Non-Staff Mag[facility] [place] [address] Patient Name: REGINALD REYES MRN: [id number] date: 1995 Sex: F Assigned Patient Location: [facility] Current Patient Location: [facility] Accession/Order Number: [id number] Exam Date: 01/19/2025 07:35 Report Date: 01/19/2025 [...] Roberson M.D. 01/19/2025 7:37 AM Dictation Location: [place] [address] Electronically authenticated by: [id number] Y Date: 01/19/2025 07:37 Dictated By: Zak Roberson M.D. Signed By: 01/19/25 0739 DD/ 0737 TD/TT: Idea Worker: [facility] Radiology Study observation (narrative) [facility] US OB BPP W NON-STRESS Ordered By: Radiologist Radiology on 01-19-2025 [facility] Work Phone: HbA1c (Bld) [Mass fraction]o n 01-18-2025 Interpretation and review of laboratory results Normal [facility] - Hematology and Cell countson 01-18-2025 HbA1c (Bld) [Mass fraction] 6.1 % [facility] No Panel InformationOrdered By: Radiologist Radiology on 01-12-2025 [facility] Work Phone: No Panel Informationon 01-12 Radiology Study observation (narrative) [facility] US OB BPP W NON-STRESS on 01-12-2025 [place] [address] Ultrasound Report Signed Patient: REGINALD REYES MR#: [id number] : 1995 Acct:[id number] Age/Sex: 29 / F ADM Date: 01/12/25 Loc: US Attending Dr: Henry Sam D.O. Ordering Physician: Henry Sam D.O. Date of Service: 01/12/25 Procedure(s): US OB BPP w non-stress Accession Number(s): [id number] cc: Henry Sam D.O.; Physician,Non-Staff Mag[facility] [place] [id number] Patient Name: REGINALD REYES MRN: [facility]:[id number] date: 1995 Sex: F Assigned Patient Location: [facility] Current Patient Location: [facility] Accession/Order Number: [id number] Exam Date: 01/12/2025 11:54 Report Date: 01/12/2025 [...] Mcleod M.D. 01/12/2025 12:00 PM Dictation Location: [place] [address] Electronically authenticated by: [id number] Y Date: 01/12/2025 12:00 Dictated By: Elle Mcleod M.D. Signed By: 01/12/25 1203 DD/ 1200 TD/TT: Idea Worker: [facility] Radiology, Radiologist, MD - 01/12/2025 [place] [address] Ultrasound Report Signed Patient: REGINALD REYES MR#: [id number] : 1995 Acct:[id number] Age/Sex: 29 / F ADM Date: 01/12/25 Loc: US Attending Dr: Henry Sam D.O. Ordering Physician: Henry Sam D.O. Date of Service: 01/12/25 Procedure(s): US OB BPP w non-stress Accession Number(s): [id number] cc: Henry Sam D.O.; Physician,Non-Staff Magaly [place] [id number] Patient Name: REGINALD REYES MRN: [facility]:[id number] date: 1995 Sex: F Assigned Patient Location: [facility] Current Patient Location: [facility] Accession/Order Number: [id number] Exam Date: 01/12/2025 11:54 Report Date: 01/12/2025 [...] Mcleod M.D. 01/12/2025 12:00 PM Dictation Location: [place] [address] Electronically authenticated by: [id number] Y Date: 01/12/2025 12:00 Dictated By: Elle Mcleod M.D. Signed By: 01/12/25 1203 DD/ 1200 TD/TT: Idea Worker: [employer] OB GROWTHon 01-12-2025 [place] [address] Ultrasound Report Signed Patient: REGINALD REYES MR#: [id number] : 1995 Acct:[id number] Age/Sex: 29 / F ADM Date: 01/12/25 Loc: US Attending Dr: Henry Sam D.O. Ordering Physician: Henry Sam D.O. Date of Service: 01/12/25 Procedure(s): US OB growth Accession Number(s): [id number] cc: Henry Sam D.O.; Physician,Non-Staff Mag[facility] [place] [id number] Patient Name: REGINALD REYES MRN: [id number] date: 1995 Sex: F Assigned Patient Location: [facility] Current Patient Location: [facility] Accession/Order Number: [id number] Exam Date: 01/12/2025 11:54 Report Date: 01/12/2025 [...] Mcleod M.D. 01/12/2025 12:00 PM Dictation Location: [place] [address] Electronically authenticated by: [id number] Y Date: 01/12/2025 12:00 Dictated By: Elle Mcleod M.D. Signed By: 01/12/25 1203 DD/ 1200 TD/TT: Idea Worker: [facility] Radiology, Radiologist, - 01/12/2025 [place] [address] Ultrasound Report Signed Patient: REGINALD REYES MR#: [id number] : 1995 Acct:[id number] Age/Sex: 29 / F ADM Date: 01/12/25 Loc: US Attending Dr: Henry Sam D.O. Ordering Physician: Henry Sam D.O. Date of Service: 01/12/25 Procedure(s): US OB growth Accession Number(s): [id number] cc: Henry Sam D.O.; Physician,Non-Staff M.D. The [place] [id number] Patient Name: REGINALD REYES MRN: [facility]:[id number] date: 1995 Sex: F Assigned Patient Location: [facility] Current Patient Location: [facility] Accession/Order Number: [id number] Exam Date: 01/12/2025 11:54 Report Date: 01/12/2025 [...] Mcleod M.D. 01/12/2025 12:00 PM Dictation Location: [place] [address] Electronically authenticated by: [id number] Y Date: 01/12/2025 12:00 Dictated By: Elle Mcleod M.D. Signed By: 01/12/25 1203 DD/ 1200 TD/TT: Idea Worker: [facility] Bacteria identified Cx Nom ( U)on 01-04-2025 Appearance (U) Adequate [facility] Internal identifier for Provider [id number] [facility] Specimen source Nom (Unsp spec) URINE [facility] STATUS FINAL [facility] Performing Organization Information Site ID: QPT Name: [employer] [facility] Address: [address] [place] [address], [address] [place] [id number] Director: Devendra Aguilar MD [facility] - Microbiology an d Antimicrobial susceptibilityon 01-04-2025 Bacteria identified Cx Nom (U) SEE NOTE [facility] Comment on above: Less than 10,000 CFU/mL of single Gram positive organism isolated. No further testing will be performed. If clinically indicated, recollection using a method to minimize contamination, with prompt transfer to Urine Culture Transport Tube, is recommended. US OB BPP W NON-STRESS on 12-29-2024 [place] [address] Ultrasound Report Signed Patient: REGINALD REYES MR#: [id number] : 1995 Acct:[id number] Age/Sex: 29 / F ADM Date: 12/29/24 Loc: US Attending Dr: Henry Sam D.O. Ordering Physician: Henry Sam D.O. Date of Service: 12/29/24 Procedure(s): US OB BPP w non-stress Accession Number(s): [id number] cc: Henry Sam D.O.; Physician,Non-Staff MCaitlin [address] [address] Patient Name: REGINALD REYES MRN: [id number] date: 1995 Sex: F Assigned Patient Location: [facility] Current Patient Location: Accession/Order Number: [id number] Exam Date: 12/29/2024 09:34 Report Date: 12/29/2024 [...] index: 16.35 cm Impression dictated by: Zak Rboerson M.D. 12/29/2024 9:36 AM Dictation Location: [place] [address] Electronically authenticated by: [id number] Y Date: 12/29/2024 09:36 Dictated By: Zak Roberson M.D. Signed By: 12/29/2438 DD/ TD/TT: Idea Worker: [facility] Radiology, Radiologist, MD - 12/29/2024 [place] [address] Ultrasound Report Signed Patient: REGINALD REYES MR#: [id number] : 1995 Acct:[id number] Age/Sex: 29 / F ADM Date: 12/29/24 Loc: US Attending Dr: Henry Sam D.O. Ordering Physician: Henry Sam D.O. Date of Service: 12/29/24 Procedure(s): US OB BPP w non-stress Accession Number(s): [id number] cc: Henry Sam D.O.; Physician,Non-Staff Magaly The [address] [address] Patient Name: REGINALD REYES MRN: [facility]:[id number] date: 1995 Sex: F Assigned Patient Location: [facility] Current Patient Location: Accession/Order Number: [id number] Exam Date: 12/29/2024 09:34 Report Date: 12/29/2024 [...] Roberson M.D. 12/29/2024 9:36 AM Dictation Location: [address] Electronically authenticated by: [id number] Y Date: 12/29/2024 09:36 Dictated By: Zak Roberson M.D. Signed By: 12/29/24 0938 DD/ TD/TT: Idea Worker: [facility] Radiology Study observation (narrative) [facility] US OB BPP W NON-STRESS Ordered By: Radiologist Radiology on 12-29-2024 [facility] Work Phone: Urinalysis macro (dipstick) panel (U)on 12-25-2024 Bilirubin, UA Negative Negative - 4(70) +++ mg/dL [facility] Blood, UA Negative Negative - 50 Skinny/mcL [facility] Clarity, UA Clear [facility] Color, UA Yellow [facility] Glucose, UA Negative Negative - 1999(110) ++++ mg/dL [facility] Interpretation and review of laboratory results Normal [facility] Ketones, UA Negative Negative - 160(16) ++++ mg/dL [facility] Leukocytes, UA Positive Negative - 500+++ Cal/mcL [facility] Comment on above: small Nitrite, UA Negative Negative - Positive [facility] pH, UA 6.5 5 - 9 [facility] Protein, UA Negative Negative - 1999(20) ++++ mg/dL [facility] Spec Grav, UA 1.02 1 - 1.03 [facility] Urobilinogen, UA 1.0 0.2 - 12 mg/dL [facility] US OB FOLLOW UP TRANSABDOMIN AL [...] II, MD, PHD at 12-Dec-2024 07:13:14 PM [facility] Normal Not Available POCT EKGOrdered By: Abby Andino on 11-08-2024 [facility] HbA1c (Bld) [Mass fraction]o n 10-09-2024 Interpretation and review of laboratory results Normal [facility] - Hematology and Cell countson 10-09-2024 HbA1c (Bld) [Mass fraction] 5.7 % [facility] POCT EKGon 09-19-2024 [facility] No Panel Informationon 08-14 [facility] Chlamydia/GC by PCR ThinPrep fluidon 07-11-2024 Chlamydia Dna(Pcr) Negative [facility] Gonorrhoeae Dna(Pcr) Negative [facility] Drug Screen, Urineon 024 Amphetamine/Methampheta mine Negative [facility] Opiate Quantitative Urine Negative [facility] HIV 1&2 AB/AG Screen (P24 AG )on 07-10-2024 HIV 1&2 AB/AG Non-Reactive [facility] Hemoglobin A1con 07-10-2024 HbA1c (Bld) [Mass fraction] 6.4 % Abnormal 4.0 - 6.0 % [facility] Interpretation and review of laboratory results Abnormal [facility] No Panel Informationon 07-10 [facility] Type and screenon 07-10-2024 Abo/Rh(D) Positive [facility] US OB < 14 WEEKS EARLYon [...] and review of laboratory results Normal [facility] - Hematology and Cell countson 06-08-2024 HbA1c (Bld) [Mass fraction] 6.2 % [facility] Cytology Cervical or vaginal smear or scraping studyOrdered By: Christen Nettles on 02-10-2023 [facility] Hemoglobin A1Con 07-05-2019 HbA1c (Bld) [Mass fraction] 5.9 % Normal 4.8-5.9 [facility] Comment on above: Performed By: #### G LYHGB, LIPR #### [address] [place] [address] Welding Inspector: Ruslan Fernando MD #### INSU #### [address] [address] Welding Inspector: Marv Guzman MD [address] [place] [address] Welding Inspector: Ruslan Fernando MD HbA1c (Bld) [Mass fraction] 123 mg/dL Normal [facility] Comment on above: Result Comment: The ADA and AACC recommend providing the estimated average glucose result to permit better patient understanding of their HBA1c result. Performed By: #### G LYHGAmanda, LIPR #### [address] [place] [address] Welding Inspector: Ruslan Fernando MD #### INSU #### [address] [address] Welding Inspector: Marv Guzman MD [address] [place] [address] Welding Inspector: Ruslan Fernando MD Glucose [Mass/Vol] 123 mg/dL [place], [place] Comment on above: The ADA and AACC rec ommend providing the estimated average glucose result to permit better patient understanding of their HBA1c result. HbA1c (Bld) [Mass fraction] 5.9 % 4.8 - 5.9 % [place], [place] Insulinon 07-05-2019 Insulin 36.2 mU/L Normal [facility] Comment on above: Performed By: #### G LYHGB, LIPR #### [address] [place], [place] [phone] Welding Inspector: Ruslan Fernando MD #### INSU #### [place] [address] [place], [place] [id number] Welding Inspector: Marv Guzman MD [facility] [address] [place] [address] [address] [place], [place] [id number] Welding Inspector: Ruslan Fernando MD Reference Range [facility] Comment on above: Result Comment: Fast in.6-24.9 30 min: 20-112 60 min: 29-88 90 min: -84 120 min: 22-79 Performed By: #### G LYHGB, LIPR #### [facility] [address] [place] [address] [address] [place], [place] [phone] Welding Inspector: Ruslan Fernando MD #### INSU #### [facility] [address] [place], [place] [address] Welding Inspector: Marv Guzman MD [address] [place], [place] 447[address] Welding Inspector: Ruslan Fernando MD Collection Info. 0830 [facility] Comment on above: Performed By: #### G LYHGB, LIPR #### [address] [place], [place] [phone] Welding Inspector: Ruslan Fernando MD #### INSU #### [place] [address] [place] [address] Welding Inspector: Marv Guzman MD [address] [place], [place] [phone] Welding Inspector: Ruslan Fernando MD Insulin, totalon 07-05-2019 INR Coag (Bld) [Relative time] [place], [place] Comment on above: Fastin.6-24.9 30 min: 20-112 60 min: - 90 min: -84 120 min: 22-79 Insulin 36.2 mU/L [place], [place] Insulin Comment [address] [place], [place] Lipid Panelon 07-05-2019 Cholesterol [Mass/Vol] 204 mg/dL High <200 [place], [place] Comment on above: Cholesterol Guidelines: <200 Desirable 200-240 Borderline >240 Undesirable Cholesterol in HDL [Mass/Vol] 35 mg/dL Low >40 [place], [place] Comment on above: HDL Guidelines: <40 Undesirable 40-59 Borderline >59 Desirable Cholesterol in LDL [Mass/Vol] 102 mg/dL 0 - 130 mg/dL [place], [place] Comment on above: LDL Guidelines: <100 Desirable 100-129 Near to/above Desirable 130-159 Borderline >159 Undesirable Direct (measured) LDL and calculated LDL are not interchangeable tests. Cholesterol in VLDL [Mass/Vol] NOT REPORTED High 1 - 30 mg/dL [place], [place] Cholesterol.total/Perla sterol in HDL [Mass ratio] 5.8 {ratio} High <5 [place], [place] Interpretation and review of laboratory results Abnormal [place], [place] Triglyceride [Mass/Vol] 336 mg/dL High <150 [place], [place] Comment on above: Triglyceride Guidelines: <150 Desirable 150-199 Borderline 200-499 High >499 Very high Based on AHA Guidelines for fasting triglyceride, May 2012. Lipid Profileon 07-05-2019 Cholesterol [Mass/Vol] 204 mg/dL High <200 [facility] Comment on above: Result Comment: Cholesterol Guidelines: <200 Desirable 200-240 Borderline >240 Undesirable Performed By: #### G LYHGB, LIPR #### [facility] [address] [place] [address] [place] [address] Welding Inspector: Ruslan Fernando MD #### INSU #### [address] [id number] Welding Inspector: Marv Guzman MD [facility] [address] [place] [address] Welding Inspector: Ruslan Fernando MD Cholesterol in HDL [Mass/Vol] 35 mg/dL Low >40 [facility] Comment on above: Result Comment: HDL Guidelines: <40 Undesirable 40-59 Borderline >59 Desirable Performed By: #### G LYHGB, LIPR #### [facility] [address] [place] [address] Welding Inspector: Ruslan Fernando MD #### INSU #### [facility] [address] [place] [address] Welding Inspector: Marv Guzman MD [address] [place], [place] [phone] Welding Inspector: Ruslan Fernando MD Cholesterol in LDL [Mass/Vol] 102 mg/dL Normal 0-130 [facility] Comment on above: Result Comment: LDL Guidelines: <100 Desirable 100-129 Near to/above Desirable 130-159 Borderline >159 Undesirable Direct (measured) LDL and calculated LDL are not interchangeable tests. Performed By: #### G LYHGB, LIPR #### [address] [place], [place] [phone] Welding Inspector: Ruslan Fernando MD #### INSU #### [address] [address] Welding Inspector: Marv Guzman MD [address] [place] [phone] Welding Inspector: Ruslan Fernando MD Cholesterol.total/Perla sterol in HDL [Mass ratio] 5.8 {ratio} High <5 [facility] Comment on above: Performed By: #### G LYHGB, LIPR #### [address] [place], [place] [address]83 Welding Inspector: Ruslan Fernando MD #### INSU #### [address] [address] Welding Inspector: Marv Guzman MD [address] [place], [place] [address]83 Welding Inspector: Ruslan Fernando MD Triglyceride [Mass/Vol] 336 mg/dL High <150 M [facility] Comment on above: Result Comment: Triglyceride Guidelines: <150 Desirable 150-199 Borderline 200-499 High >499 Very high Based on AHA Guidelines for fasting triglyceride, May 2012. Performed By: #### G LYHGB, LIPR #### [address] [place], [place] [address] Welding Inspector: Ruslan Fernando MD #### INSU #### [facility] [address] [place], [place] [id number] Welding Inspector: Marv Guzman MD [facility] [address] [place], [place] [id number] Welding Inspector: Ruslan Fernando MD Cholesterol in VLDL [Mass/Vol] NOT REPORTED Normal 09-14 [facility] Comment on above: Performed By: #### G LYHGB, LIPR #### [address] [place], [place] [id number] Welding Inspector: Ruslan Fernando MD #### INSU #### [facility] [address] [place], [place] [id number] Welding Inspector: Marv Guzman MD [address] [place], [place] [id number] Welding Inspector: Ruslan Fernando MD Vital Signs Date Time Vital Sign Value Performing Clinician Facility 01-29-2025 16:33-0400 Body mass index (BMI) [Ratio] 34.72 kg/m2 Darío Floro CNM Work Phone: [facility] 01-29-2025 16:33-0400 Body weight 109.77 kg Darío Floro CNM Work Phone: [facility] 01-29-2025 16:33-0400 Diastolic blood pressure 60 mm[Hg] Darío Floro CNM Work Phone: [facility] 01-29-2025 16:33-0400 Systolic blood pressure 120 mm[Hg] Darío Floro CNM Work Phone: [facility] 01-22-2025 16:32-0400 Body mass index (BMI) [Ratio] 34.44 kg/m2 Darío Floro CNM Work Phone: [facility] 01-22-2025 16:32-0400 Body weight 108.86 kg Darío Floro CNM Work Phone: [facility] 01-22-2025 16:32-0400 Diastolic blood pressure 70 mm[Hg] Darío Banuelos CNM Work Phone: [facility] 01-22-2025 16:32-0400 Systolic blood pressure 120 mm[Hg] Darío Banuelos CNM Work Phone: [facility] 01-18-2025 08:28-0400 Body height 177.8 cm Awilda Petznick DO Work Phone: [facility] 01-18-2025 08:28-0400 Body mass index (BMI) [Ratio] 34.44 kg/m2 Awilda Petznick DO Work Phone: [facility] 01-18-2025 08:28-0400 Body temperature 98.01 [degF] Awilda Petznick DO Work Phone: [facility] 01-18-2025 08:28-0400 Body weight 108.86 kg Awilda Petznick DO Work Phone: [facility] 01-18-2025 08:28-0400 Diastolic blood pressure 66 mm[Hg] Awilda Petznick DO Work Phone: [facility] 01-18-2025 08:28-0400 Heart rate 88 /min Awilda Petznick DO Work Phone: [facility] 01-18-2025 08:28-0400 SaO2% (BldA) [Mass fraction] 98 % Awilda Petznick DO Work Phone: [facility] 01-18-2025 08:28-0400 Systolic blood pressure 118 mm[Hg] Awilda Petznick DO Work Phone: [facility] 01-15-2025 16:36-0400 Body mass index (BMI) [Ratio] 34.87 kg/m2 Darío Banuelos CNM Work Phone: [facility] 01-15-2025 16:36-0400 Body weight 110.22 kg Darío BRANDM Work Phone: [facility] 01-15-2025 16:36-0400 Diastolic blood pressure 78 mm[Hg] Darío Floro CNM Work Phone: [facility] 01-15-2025 16:36-0400 Systolic blood pressure 120 mm[Hg] Darío Floro CNM Work Phone: [facility] 01-09-2025 16:34-0400 Body mass index (BMI) [Ratio] 34.72 kg/m2 Darío Floro CNM Work Phone: [facility] 01-09-2025 16:34-0400 Body weight 109.77 kg Darío Floro CNM Work Phone: [facility] 01-09-2025 16:34-0400 Diastolic blood pressure 74 mm[Hg] Darío Floro CNM Work Phone: [facility] 01-09-2025 16:34-0400 Systolic blood pressure 120 mm[Hg] Darío Floro CNM Work Phone: [facility] 01-01-2025 16:33-0400 Body mass index (BMI) [Ratio] 34.29 kg/m2 Darío Floro CNM Work Phone: [facility] 01-01-2025 16:33-0400 Body weight 108.41 kg Darío Floro CNM Work Phone: [facility] 01-01-2025 16:33-0400 Diastolic blood pressure 72 mm[Hg] Darío Floro CNM Work Phone: [facility] 01-01-2025 16:33-0400 Systolic blood pressure 120 mm[Hg] Darío Floro CNM Work Phone: [facility] 12-26-2024 16:02-0400 Body mass index (BMI) [Ratio] 34.15 kg/m2 Darío Floro CNM Work Phone: [facility] 12-26-2024 16:02-0400 Body weight 107.96 kg Darío Floro CNM Work Phone: [facility] 12-26-2024 16:02-0400 Diastolic blood pressure 74 mm[Hg] Darío Banuelos CNM Work Phone: [facility] 12-26-2024 16:02-0400 Systolic blood pressure 116 mm[Hg] Darío Banuelos CNM Work Phone: [facility] 12-11-2024 15:56-0400 Diastolic blood pressure 70 mm[Hg] Darío Banuelos CNM Work Phone: [facility] 12-11-2024 15:56-0400 Systolic blood pressure 120 mm[Hg] Darío Banuelos CNM Work Phone: [facility] 12-07-2024 08:17-0400 Body height 177.8 cm Awilda Petznick DO Work Phone: [facility] 12-07-2024 08:17-0400 Body temperature 97.9 [degF] Awilda Petznick DO Work Phone: [facility] 12-07-2024 08:17-0400 Diastolic blood pressure 66 mm[Hg] Awilda Petznick DO Work Phone: [facility] 12-07-2024 08:17-0400 Heart rate 86 /min Awilda Petznick DO Work Phone: [facility] 12-07-2024 08:17-0400 SaO2% (BldA) [Mass fraction] 98 % Awilda Petznick DO Work Phone: [facility] 12-07-2024 08:17-0400 Systolic blood pressure 126 mm[Hg] Awilda Petznick DO Work Phone: [facility] 11-15-2024 16:31-0400 Body mass index (BMI) [Ratio] 34.44 kg/m2 Darío Banuelos CNM Work Phone: [facility] 11-15-2024 16:31-0400 Body weight 108.86 kg Darío BRANDM Work Phone: [facility] 11-15-2024 16:31-0400 Diastolic blood pressure 78 mm[Hg] Darío Banuelos CNM Work Phone: [facility] 11-15-2024 16:31-0400 Systolic blood pressure 120 mm[Hg] Darío Banuelos CNM Work Phone: [facility] 11-08-2024 09:17-0400 Body height 177.8 cm Tricia Rowland MD Work Phone: [facility] 11-08-2024 09:17-0400 Body mass index (BMI) [Ratio] 34.06 kg/m2 Tricia Rowland MD Work Phone: [facility] 11-08-2024 09:17-0400 Body weight 107.68 kg Tricia Rowland MD Work Phone: [facility] 11-08-2024 09:17-0400 Diastolic blood pressure 64 mm[Hg] Tricia Rowland MD Work Phone: [facility] 11-08-2024 09:17-0400 Heart rate 80 /min Tricia Rowland MD Work Phone: [facility] 11-08-2024 09:17-0400 SaO2% (BldA) [Mass fraction] 98 % Tricia Rowland MD Work Phone: [facility] 11-08-2024 09:17-0400 Systolic blood pressure 128 mm[Hg] Tricia Rowland MD Work Phone: [facility] 10-18-2024 16:37-0500 Body mass index (BMI) [Ratio] 34.15 kg/m2 Darío Díazo CNM Work Phone: [facility] 10-18-2024 16:37-0500 Body weight 107.96 kg Darío Banuelos CNM Work Phone: [facility] 10-18-2024 16:37-0500 Diastolic blood pressure 60 mm[Hg] Darío Díazo CNM Work Phone: [facility] 10-18-2024 16:37-0500 Systolic blood pressure 120 mm[Hg] Darío Díazo CNM Work Phone: [facility] 10-09-2024 15:40-0500 Body height 177.8 cm Awilda Petznick DO Work Phone: [facility] 10-09-2024 15:40-0500 Body mass index (BMI) [Ratio] 34.01 kg/m2 Awilda Petznick DO Work Phone: [facility] 10-09-2024 15:40-0500 Body temperature 98.2 [degF] Awilda Petznick DO Work Phone: [facility] 10-09-2024 15:40-0500 Body weight 107.5 kg Awilda Petznick DO Work Phone: [facility] 10-09-2024 15:40-0500 Diastolic blood pressure 66 mm[Hg] Awilda Petznick DO Work Phone: [facility] 10-09-2024 15:40-0500 Heart rate 98 /min Awilda Petznick DO Work Phone: [facility] 10-09-2024 15:40-0500 SaO2% (BldA) [Mass fraction] 98 % Awilda Petznick DO Work Phone: [facility] 10-09-2024 15:40-0500 Systolic blood pressure 128 mm[Hg] Awilda Petznick DO Work Phone: [facility] 09-28-2024 16:17-0500 Body mass index (BMI) [Ratio] 34.58 kg/m2 Darío Díazo CNM Work Phone: [facility] 09-28-2024 16:17-0500 Body weight 109.32 kg Darío Díazo CNM Work Phone: [facility] 09-28-2024 16:17-0500 Diastolic blood pressure 70 mm[Hg] Darío Díazo CNM Work Phone: [facility] 09-28-2024 16:17-0500 Systolic blood pressure 120 mm[Hg] Darío Banuelos CNM Work Phone: [facility] 09-19-2024 10:31-0500 Body height 177.8 cm Aye Saucedo MD Work Phone: [facility] 09-19-2024 10:31-0500 Body mass index (BMI) [Ratio] 34.15 kg/m2 Aye Saucedo MD Work Phone: [facility] 09-19-2024 10:31-0500 Body weight 107.96 kg Aye Saucedo MD Work Phone: [facility] 09-19-2024 10:31-0500 Diastolic blood pressure 76 mm[Hg] Aye Saucedo MD Work Phone: [facility] 09-19-2024 10:31-0500 Heart rate 85 /min Aye Saucedo MD Work Phone: [facility] 09-19-2024 10:31-0500 SaO2% (BldA) [Mass fraction] 98 % Aye Saucedo MD Work Phone: [facility] 09-19-2024 10:31-0500 Systolic blood pressure 122 mm[Hg] Aye Saucedo MD Work Phone: [facility] 09-11-2024 08:12-0500 Body mass index (BMI) [Ratio] 34.29 kg/m2 Clarke Modi MD Work Phone: [facility] 09-11-2024 08:12-0500 Body weight 108.41 kg Clarke Modi MD Work Phone: [facility] 09-11-2024 08:12-0500 Diastolic blood pressure 81 mm[Hg] Clarke Modi MD Work Phone: [facility] 09-11-2024 08:12-0500 Heart rate 80 /min Clarke Modi MD Work Phone: [facility] 09-11-2024 08:12-0500 Systolic blood pressure 122 mm[Hg] Clarke Modi MD Work Phone: [facility] 09-01-2024 08:54-0500 Body height 177.8 cm Awilda Petznick DO Work Phone: [facility] 09-01-2024 08:54-0500 Body mass index (BMI) [Ratio] 34.44 kg/m2 Awilda Petznick DO Work Phone: [facility] 09-01-2024 08:54-0500 Body temperature 98.49 [degF] Awilda Petznick DO Work Phone: [facility] 09-01-2024 08:54-0500 Body weight 108.86 kg Awilda Petznick DO Work Phone: [facility] 09-01-2024 08:54-0500 Diastolic blood pressure 72 mm[Hg] Awilda Petznick DO Work Phone: [facility] 09-01-2024 08:54-0500 Heart rate 92 /min Awilda Petznick DO Work Phone: [facility] 09-01-2024 08:54-0500 SaO2% (BldA) [Mass fraction] 97 % Awilad Petznick DO Work Phone: [facility] 09-01-2024 08:54-0500 Systolic blood pressure 126 mm[Hg] Awilda Petznick DO Work Phone: [facility] 08-30-2024 16:08-0500 Body mass index (BMI) [Ratio] 34.58 kg/m2 Darío Sheebao CNM Work Phone: [facility] 08-30-2024 16:08-0500 Body weight 109.32 kg Darío Sheebao CNM Work Phone: [facility] 08-30-2024 16:08-0500 Diastolic blood pressure 68 mm[Hg] Darío Sheebao CNM Work Phone: [facility] 08-30-2024 16:08-0500 Systolic blood pressure 120 mm[Hg] Darío Díazo CNM Work Phone: [facility] 08-14-2024 10:40-0500 Body height 177.8 cm Svetlaan Lavoy PA-C Work Phone: [facility] 08-14-2024 10:40-0500 Body mass index (BMI) [Ratio] 34.72 kg/m2 Svetlana Lavoy PA-C Work Phone: [facility] 08-14-2024 10:40-0500 Body weight 109.77 kg Svetlana Lavoy PA-C Work Phone: [facility] 08-14-2024 10:40-0500 Diastolic blood pressure 68 mm[Hg] Svetlana Lavoy PA-C Work Phone: [facility] 08-14-2024 10:40-0500 Heart rate 86 /min Svetlana Lavoy PA-C Work Phone: [facility] 08-14-2024 10:40-0500 Systolic blood pressure 134 mm[Hg] Svetlana Lavoy PA-C Work Phone: [facility] 08-14-2024 09:42-0500 Body height 177.8 cm Shauna Denny RN Work Phone: [facility] 08-14-2024 09:41-0500 Body mass index (BMI) [Ratio] 34.72 kg/m2 Shauna Denny RN Work Phone: [facility] 08-14-2024 09:41-0500 Body weight 109.77 kg Shauna Denny RN Work Phone: [facility] 08-03-2024 08:36-0500 Body mass index (BMI) [Ratio] 35.3 kg/m2 Darío Floro CNM Work Phone: [facility] 08-03-2024 08:36-0500 Body weight 111.58 kg Darío Floro CNM Work Phone: [facility] 08-03-2024 08:36-0500 Diastolic blood pressure 80 mm[Hg] Darío Sheebao CNM Work Phone: [facility] 08-03-2024 08:36-0500 Systolic blood pressure 122 mm[Hg] Darío Sheebao CNM Work Phone: [facility] 07-10-2024 15:43-0500 Body mass index (BMI) [Ratio] 35.3 kg/m2 Darío Sheebao CNM Work Phone: [facility] 07-10-2024 15:43-0500 Body weight 111.58 kg Darío Sheebao CNM Work Phone: [facility] 07-10-2024 15:43-0500 Diastolic blood pressure 76 mm[Hg] Darío Sheebao CNM Work Phone: [facility] 07-10-2024 15:43-0500 Systolic blood pressure 120 mm[Hg] Darío Sheebao CNM Work Phone: [facility] 06-08-2024 14:04-0400 Body height 177.8 cm Awilda Petznick DO Work Phone: [facility] 06-08-2024 14:04-0400 Body mass index (BMI) [Ratio] 35.01 kg/m2 Awilda Petznick DO Work Phone: [facility] 06-08-2024 14:04-0400 Body temperature 98.49 [degF] Awilda Petznick DO Work Phone: [facility] 06-08-2024 14:04-0400 Body weight 110.68 kg Awilda Petznick DO Work Phone: [facility] 06-08-2024 14:04-0400 Diastolic blood pressure 72 mm[Hg] Awilda Petznick DO Work Phone: [facility] 06-08-2024 14:04-0400 Heart rate 87 /min Awilda Petznick DO Work Phone: [facility] 06-08-2024 14:04-0400 SaO2% (BldA) [Mass fraction] 98 % Awilda Delatorre DO Work Phone: [facility] 06-08-2024 14:04-0400 Systolic blood pressure 138 mm[Hg] Awilda Johansenick DO Work Phone: [facility] Encounters Encounter Date Encounter Type Care Provider Facility Start: 02-06-2025 End: 02-06-2025 Bamboo flowsheet Darío L Floro CNM Work Phone: [facility] Start: 02-06-2025 End: 02-06-2025 Bamboo flowsheet Darío L Floro CNM Work Phone: [facility] Start: 02-02-2025 End: 02-02-2025 Clinisync Result Encounter Henry Flaco DO Work Phone: [facility] Unsolicited Start: 02-02-2025 End: 02-02-2025 Clinisync Result Encounter Henry Flaco DO Work Phone: [facility] Unsolicited Start: 01-29-2025 End: 01-29-2025 Subsequent care visit Darío Nadine Díazo CNM Work Phone: [facility] Comment on above: with type 2 diabetes mellitus in third trimester ([facility]) (Primary Dx); Type 2 diabetes mellitus treated with insulin (HCC); Encounter for care of first , third trimester ([facility]) Start: 01-29-2025 End: 01-29-2025 ambulatory DARÍO L [...] 01-26-2025 End: 01-26-2025 Clinisync Result Encounter Henry Arringtono DO Work Phone: [facility] Unsolicited Start: 01-22-2025 End: 01-22-2025 ambulatory DARÍO Nadine BANUELOS Not Available Start: 01-22-2025 End: 01-22-2025 Subsequent care visit Darío Díazo CN Work Phone: [facility] Comment on above: screening for streptococcus B (Primary Dx); with type 2 diabetes mellitus in third trimester; Type 2 diabetes mellitus treated with insulin ([facility]) Start: 01-22-2025 End: 01-22-2025 Bamboo flowsheet Darío Díazo CNM Work Phone: [facility] Start: 01-22-2025 End: 01-22-2025 Bamboo flowsheet Darío Díazo CNM Work Phone: [facility] Start: 01-19-2025 End: 01-19-2025 Clinisync Result Encounter Henry Arringtono DO Work Phone: [facility] Unsolicited Start: 01-19-2025 End: 01-19-2025 Clinisync Result Encounter Henry Arringtono DO Work [...] 01-09-2025 End: 01-09-2025 Subsequent care visit Darío L Floro CNM Work Phone: [facility] Comment on above: Type 2 diabetes guerrero itus treated with insulin ([facility]) (Primary Dx); Encounter for [...] Type 2 diabetes mellitus treated with insulin ([facility]) Start: 12-26-2024 End: 12-26-2024 Bamboo flowsheet Darío [...] 30 minutes Aye Saucedo MD Work Phone[facility] Comment on above: Long Q-T syndrome (P rimary Dx); Hx of prolonged Q-T interval on ECG Start: 11-08-2024 End: 11-08-2024 ambulatory TRICIA ROWLAND [facility] Start: 11-07-2024 End: 11-07-2024 [facility] Start: 10-31-2024 End: 10-31-2024 ambulatory DARÍO BANUELOS [facility] Start: 10-18-2024 End: 10-18-2024 Subsequent care visit Darío Banuelos CNM Work Phone: [facility] Comment on above: Type 2 diabetes guerrero itus with hyperosmolarity without coma, without long-term current use of insulin (HCC) (Primary Dx); Encounter for care of first , second trimester ([facility]) Start: 10-18-2024 End: 10-18-2024 ambulatory DARÍO BANUELOS Not Available Start: 10-18-2024 End: 10-18-2024 Bamboo flowsheet Darío Banuelos CNM Work Phone: [facility] Start: 10-18-2024 End: 10-18-2024 Bamboo flowsheet Darío Banuelos CNM Work Phone: [facility] Start: 10-10-2024 End: 10-10-2024 Office outpatient visit 25 minutes Clarke Modi MD Work Phone: [facility] Comment on above: Pre-existing type 2 diabetes mellitus during in second trimester (Primary Dx) Start: 10-10-2024 End: 10-10-2024 [facility] Start: 10-09-2024 End: 10-09-2024 Office outpatient visit 15 minutes Awilda Delatorre DO Work Phone: [phone] Comment on above: with type 2 diabetes mellitus in second trimester (Primary Dx); Type 2 diabetes mellitus without complication, without long-term current use of insulin ([facility]) Start: 10-09-2024 End: 10-09-2024 ambulatory AWILDA DELATORRE Not Available Start: 10-03-2024 End: 10-03-2024 ambulatory DARÍO FLORO [facility] Start: 09-28-2024 End: 09-28-2024 Subsequent care visit Darío Banuelos CNM Work Phone: [facility] Comment on above: Encounter for prenat al care of first , second trimester (Primary Dx); Type 2 diabetes mellitus without complication, without long-term current use of insulin ([facility]) Start: 09-28-2024 End: 09-28-2024 ambulatory DARÍO BANUELOS [...] 2 diabetes mellitus without complication, 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 ([facility]) Start: 09-19-2024 End: 09-19-2024 ambulatory AYE SAUCEDO [facility] Start: 09-18-2024 End: 09-18-2024 Telephone encounter Abby Andino [employer] [facility] Start: 09-14-2024 End: 09-14-2024 Chart abstracting Jacque Schneider MD Work Phone: [facility] Start: 09-11-2024 End: 09-11-2024 Telephone encounter Yudelka Randall RN [facility] Start: 09-11-2024 End: 09-11-2024 Office outpatient visit 25 minutes Clarke Modi MD Work Phone: [facility] Comment on above: Pre-existing type 2 diabetes mellitus during in second trimester (Primary Dx); Long Q-T syndrome Start: 09-11-2024 End: 09-11-2024 ambulatory [facility] Start: 09-05-2024 End: 09-05-2024 Telephone encounter Sparkle Castillo RN [facility] Start: 09-01-2024 End: 09-01-2024 Office outpatient [...] without long- term current use of insulin ([facility]) Start: 08-28-2024 End: 08-28-2024 Telephone encounter Donna Posadas RN [facility] Start: 08-23-2024 End: 08-23-2024 Office outpatient visit 25 minutes Ariella Mahi [employer] SPECIALIST Work Phone: [facility] Comment on above: Type 2 diabetes guerrero itus without complication, 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 ([facility]) (Primary Dx) Start: 08-23-2024 End: 08-23-2024 ambulatory ARIELLA MAHI [facility] Start: 08-14-2024 End: 08-14-2024 Office outpatient new 45 minutes Svetlana Jack PA-C Work Phone: [facility] Comment on above: with type 2 diabetes mellitus in second trimester (Primary Dx); Long Q-T syndrome Start: 08-14-2024 End: 08-14-2024 ambulatory Shauna Denny RN Work Phone: [facility] Comment on above: Pre-existing type 2 [...] coma, without long-term current use of insulin ([facility]) Start: 08-03-2024 End: 08-03-2024 ambulatory DARÍO L FLORO Not Available Start: 07-25-2024 End: 07-25-2024 Chart abstracting Scanning Provider External [facility] Start: 07-10-2024 End: 07-10-2024 Subsequent care [...] without long- term current use of insulin ([facility]) Start: 06-08-2024 End: 06-08-2024 ambulatory AWILDA DELATORRE Not Available Start: 05-03-2024 End: 05-03-2024 Telephone encounter Darío BRANDM Work Phone: [facility] Start: 02-28-2024 End: 02-28-2024 ambulatory AWILDA DELATORRE Not Available Start: 07-05-2019 End: 07-06-2019 Patient encounter procedure DARÍO BANUELOS [facility] Start: 07-05-2019 End: 07-05-2019 Subsequent hospital visit by physician [facility] Laboratory Procedures Date Procedure Procedure Detail Performing Clinician Start: 02-02-2025 US OB BPP W NON-STRESS Henry Flaco DO Work Phone: Start: 01-26-2025 US OB BPP W NON-STRESS Henry Flaco DO Work Phone: Start: 01-19-2025 US OB BPP W NON-STRESS Henry Flaco DO Work Phone: Start: 01-18-2025 Hemoglobin glycosyla carola a1c Awilda Johansenick DO Work Phone: Start: 01-12-2025 US OB BPP W NON-STRESS Henry Flaco DO Work Phone: Start: 01-12-2025 US OB GROWTH Henry Fazi o DO Work Phone: Start: 01-01-2025 Culture bacterial quanttative colony count urine Darío Banueols CNM Work Phone: Start: 12-29-2024 US OB [...] Work Phone: Start: 08-14-2024 AMB REFERRAL TO [facility] - DIABETES EDUCATION Daríolibby Banuelos [employer] Work Phone: Start: 08-14-2024 AMB REFERRAL TO [facility] MEDICINE - NUTRITION EDUCATION Daríolibby Banuelos [facility] Work Phone: Start: 07-11-2024 CHLAMYDIA/GC BY [...] t hin layer prep mnl screen Darío Nadine Vin [facility] Work Phone: Start: 07-05-2019 Assay of insulin total DARÍO FLORO Start: 07-05-2019 Hemoglobin glycosyla carola a1c DARÍO FLORJacob Start: 07-05-2019 Lipid panel DARÍO IVY SHAYNE Start: 07-05-2019 Assay of insulin total Darío Banuelos Work Phone: Start: 07-05-2019 Hemoglobin glycosyla carola a1c Darío Banuelos Work Phone: Start: 07-05-2019 Lipid panel Darío palacios Work Phone: Plan of Treatment Date Care Activity Detail Author Start: 11-08-2025 Adult BMI Screening Adult BMI Screen ing [facility] Start: 11-08-2025 Tobacco Screening Tobacco Screening [facility] [facility] Start: 09-19-2025 Adult BMI Screening Adult BMI Screen ing [facility] Start: 09-19-2025 Tobacco Screening Tobacco Screening [facility] Start: 09-11-2025 Adult BMI Screening Adult BMI Screen ing [facility] Start: 09-11-2025 Tobacco Screening Tobacco Screening [facility] Start: 08-30-2025 Urine screening for protein Diabetes: Urine Protein Screening [facility] Start: 08-14-2025 Adult BMI Screening Adult BMI Screen ing [facility] Start: 08-14-2025 Tobacco Screening Tobacco Screening [facility] Start: 08-14-2025 End: 08-14-2025 US MFM with or without consult US MFM with or without consult Imaging Routine with type 2 diabetes mellitus in second trimester Expected: 08/14/2025 (Approximate), Expires: 08/14/2025 [facility] Work Phone: Comment on above: Expected: 08/14/2025 (Approximate), Expires: 08/14/2025 Start: 04-20-2025 Hemoglobin A1c measurement Diabetes: Hemoglobin A1C [facility] Start: 04-19-2025 End: 04-19-2025 Patient encounter procedure 04/19/2025 10:45 AM EDT Office Visit [facility] [address] [place] [phone] Awilda Delatorre DO [address] [place] [address] [facility] Start: 04-17-2025 End: 04-17-2025 Patient encounter procedure 04/17/2025 10:30 AM EDT Office Visit [facility] [address] [place] [phone] Awilda Delatorre DO [address] [place] [address] [facility] Start: 04-16-2025 Influenza vaccination Influenz a Vaccine (Season Ended) [facility] Start: 02-15-2025 End: 02-15-2025 Professional / ancillary services management 02/15/2025 4:00 PM EDT Ancillary Procedure [facility] [address] [phone] [facility] Start: 02-13-2025 End: 02-13-2025 Patient encounter procedure 02/13/2025 4:00 PM EDT Routine [facility] [address] [place] [address] Darío Banuelos, CNM [address] [place] [address] [facility] Start: 02-12-2025 End: 02-12-2025 Patient encounter procedure 02/12/2025 4:30 PM EDT Routine [facility] [address] [place] [address] Darío Banuelos, CNM [address] [place] [address] [facility] Start: 02-09-2025 End: 02-09-2025 Professional / ancillary services management 02/09/2025 4:00 PM EDT Ancillary Procedure [facility] [address] [phone] [facility] Start: 02-06-2025 End: 02-06-2025 Patient encounter procedure [facility] Comment on above: Arrived Start: 02-02-2025 End: 06-20-2025 Professional / ancillary services management 02/02/2025 4:00 PM EDT Ancillary Procedure [facility] [address] [facility] [address] [place] [address] [facility] Start: 01-30-2025 End: 01-30-2025 Patient encounter procedure 01/30/2025 4:00 PM EDT Routine [facility] [address] [place] [address] Darío Banuelos, CNM [address] [place] [address] [facility] Start: 01-29-2025 End: 01-29-2025 Patient encounter procedure [facility] Comment on above: Arrived Start: 01-26-2025 End: 01-26-2025 Professional / ancillary services management 01/26/2025 4:00 PM EDT Ancillary Procedure [facility] [address] [facility] [address] [place] [address] [facility] Start: 01-23-2025 End: 01-23-2025 Patient encounter procedure 01/23/2025 4:00 PM EDT Routine [facility] [address] [place] [address] Darío Banuelos, CNM [address] [place] [address] [facility] Start: 01-22-2025 End: 01-22-2025 Patient encounter procedure 01/22/2025 4:30 PM EDT Routine [facility] [address] [place] [address] Darío Banuelos, CNM [address] [place] [address] [facility] Start: 01-22-2025 End: 01-22-2026 STREPTOCCOUS, GROUP B CULTURE STREPTOCCOUS, GROUP B CULTURE Lab Routine screening for streptococcus B Expected: 01/22/2025 (Approximate), Expires: 01/22/2026 [facility] Work Phone: Comment on above: Expected: 01/22/2025 (Approximate), Expires: 01/22/2026 Start: 01-19-2025 End: 01-19-2025 Professional / ancillary services management 01/19/2025 9:15 AM EDT Ancillary Procedure [facility] [address] [phone] [facility] Start: 01-18-2025 End: 01-18-2025 Patient encounter procedure [facility] 230 Comment on above: with type 2 diabetes mellitus in third trimester Start: 01-16-2025 End: 01-16-2025 Patient encounter procedure 01/16/2025 4:00 PM EDT Routine [facility] [address] [place] [address] Darío Banuelos CNM [address] [place] [address] [facility] Start: 01-15-2025 End: 01-15-2025 Patient encounter procedure [facility] Comment on above: Arrived Start: 01-12-2025 End: 01-12-2025 Professional / ancillary services management 01/12/2025 4:00 PM EDT Ancillary Procedure [facility] [address] [phone] [facility] Start: 01-09-2025 End: 01-09-2025 Patient encounter procedure 01/09/2025 4:00 PM EDT Routine [facility] [address] [place] [address] Darío Banuelos CNM [address] [place] [address] [facility] Start: 01-06-2025 Hemoglobin A1c measurement Diabetes: Hemoglobin A1C [facility] Start: 01-05-2025 End: 01-05-2025 Professional / ancillary services management 01/05/2025 9:15 AM EDT Ancillary Procedure [facility] [address] [facility] [address] [place] [address] [facility] Start: 01-03-2025 Urine screening for protein Diabetes: Urine Protein Screening [facility] Start: 01-02-2025 End: 01-02-2025 Patient encounter procedure 01/02/2025 4:00 PM EDT Routine [facility] [address] [place] [address] Darío Banuelos, CNM [address] [place] [address] [facility] Start: 01-01-2025 End: 01-01-2025 Patient encounter procedure 01/01/2025 4:30 PM EDT Routine [facility] [address] [place] [address] Darío Banuelos, CNM [address] [place] [address] [facility] Start: 12-29-2024 End: 12-29-2024 Professional / ancillary services management 12/29/2024 4:00 PM EDT Ancillary Procedure [facility] [address] [place] [address] [facility] Start: 12-26-2024 End: 12-26-2024 Patient encounter procedure 12/26/2024 4:00 PM EDT Routine [facility] [address] [place] [address] Darío Banuelos, CNM [address] [place] [address] [facility] Start: 12-26-2024 End: 12-26-2025 [...] ULTRASOUND [address] [place] [address] [facility] Start: 12-11-2024 [...] [address] [place] [address] Petznick, Awilda M, DO [address] [place] [address] [facility] Start: 11-15-2024 End: 11-15-2024 Patient encounter procedure 11/15/2024 4:30 PM EDT Routine [facility] [address] [place] [address] Darío Banuelos, SADIA [address] [place] [address] Arrived [facility] Comment on above: Arrived Start: 11-15-2024 End: 11-15-2025 US for US OB follow up transabdominal approach Imaging Routine related condition in third trimester Expected: 11/15/2024, Expires: 11/15/2025 [facility] Work Phone: Comment on above: Expected: 11/15/2024 , Expires: 11/15/2025 Start: 11-08-2024 End: 11-08-2024 Patient encounter procedure 11/08/2024 9:30 AM EDT Office Visit [facility] [address] [facility] [address] [place] [phone] Aye Saucedo MD [address] [place] [address] Tricia Rowland MD [address] [place] [address] [facility] Start: 10-31-2024 End: 10-31-2024 Patient encounter procedure 10/31/2024 8:00 AM EDT Appointment [facility] - Ultrasound [address] [place] [address] [facility] Start: 10-18-2024 End: 10-18-2024 Patient encounter procedure [facility] Comment on above: Arrived Start: 10-10-2024 Hemoglobin A1c measurement Diabetes: Hemoglobin A1C [facility] Start: 10-10-2024 End: 10-10-2024 Telemedicine consultation with patient 10/10/2024 11:30 AM EST Telemedicine [facility] [address] [place] [address] Clarke Modi MD [address], [address] [place] [address] [facility] Start: 10-09-2024 End: 10-09-2024 Patient encounter procedure 10/09/2024 3:45 PM EST Office Visit [facility] [address] [place] [address] Awilda Delatorre DO [address] [place] [address] [facility] Start: 10-03-2024 End: 10-03-2024 Patient encounter procedure 10/03/2024 10:00 AM EST Appointment [facility]trasound [address] [place] [address] [facility] Start: 09-28-2024 End: 09-28-2024 Patient encounter procedure [facility] Comment on above: Arrived Start: 09-25-2024 End: 09-25-2024 Patient encounter procedure 09/25/2024 8:30 AM EST Appointment [facility] Imaging [address] [place] [phone] [facility] Start: 09-19-2024 End: 09-19-2024 Patient encounter procedure 09/19/2024 8:15 AM EST Office Visit [facility] [address] [place] [address] Jacque Schneider MD [address] [place] [address] [facility] Start: 09-11-2024 End: 09-11-2024 Patient encounter procedure 09/11/2024 8:00 AM EST Office Visit [facility] [address] [place] [address] Clarke Modi MD [address], [address] [place] [address] [facility] Start: 09-08-2024 Hemoglobin A1c measurement Diabetes: Hemoglobin A1C [facility] Start: 08-30-2024 End: 08-30-2024 Patient encounter procedure 08/30/2024 4:30 PM EST Office Visit [facility] [address] [place] [address] Darío Banuelos CN [address] [place] [address] [facility] Start: 08-23-2024 End: 08-23-2024 Telemedicine consultation with patient 08/23/2024 2:00 PM EST Telemedicine [facility] [address] [place] [phone] Ariella Roberto, [employer] [address] [place] [address] [facility] Start: 08-14-2024 End: 11-12-2024 Protein creat ratio Protein creat ratio Lab Routine with type 2 diabetes mellitus in second trimester Expected: 08/14/2024 (Approximate), Expires: 11/12/2024 [facility] Comment on above: Expected: 08/14/2024 (Approximate), Expires: 11/12/2024 Start: 08-14-2024 End: 08-14-2024 Patient encounter procedure 08/14/2024 11:00 AM EST Office Visit [facility] [address] [facility] [place] [address] Svetlana Jack PA-C [address] [facility] [address] [place] [address] [facility] Start: 08-14-2024 End: 08-14-2024 ambulatory 08/14/2024 8:30 AM EST Support Visit [facility] [address] [facility] [place] [address] Shauna Denny RN [address] [facility] [address], [address] [place] [address], [place] [address] [facility] HE[facility] SERVICES[facility]ri, [address] [facility] [address] [facility] Start: 08-03-2024 End: 08-03-2024 Patient encounter procedure 08/03/2024 8:30 AM EST Routine [facility] [address] [place] [address] Darío Banuelos, CATHIE [address] [place] [address] Arrived [facility] Comment on above: Arrived Start: 07-10-2024 End: 07-10-2024 Patient encounter procedure 07/10/2024 3:45 PM EST Routine [facility] [address] [place] [address] Darío Banuelos, CN [address] [place] [address] Arrived [facility] Comment on above: Arrived Start: 05-30-2024 Hemoglobin A1c measurement Diabetes: Hemoglobin A1C [facility] Start: 05-30-2024 End: 05-30-2024 Patient encounter procedure 05/30/2024 8:45 AM EDT Office Visit [facility] [address] [place] [address] ElenoAwilda barrow Brooks [address] [place] [address] [facility] 230 Start: 04-16-2024 Influenza vaccination [facility] Start: 09-06-2019 DTaP,Tdap and Td Vaccines (8 - Td or Tdap) DTaP,Tdap and Td Vaccines (8 - Td or Tdap) [facility] Start: 04-16-2019 Influenza vaccination Flu vaccine (# 1) [place], [place] Start: 2016 Cervical cancer screen Cervical canc er screen [place], [place] Start: 2016 Screening for malign ant neoplasm of cervix Pap Smear [facility] Start: 2014 DTaP,Tdap and Td Vaccines (1 - Tdap) DTaP,Tdap and Td Vaccines (1 - Tdap) [facility] Start: 2014 Urine screening for protein Diabetes: Urine Protein Screening [facility] Start: 2013 Adult BMI Follow Up Plan Adult BMI Follow Up Plan [facility] Start: 2013 Adult BMI Screening Adult BMI Screen ing [facility] Start: 2013 Diabetic foot examination Diabetic Foot Exam [facility] Start: 2011 Chlamydia screen Chlamydia screen [place], [place] Start: 2010 HIV screen HIV screen [place], [place] Start: 2007 Depression Screening Depression Scre ening [facility] Start: 2007 Tobacco Screening Tobacco Screening [facility] Start: 2006 DTaP/Tdap/Td vaccine (1 - Tdap) DTaP/Tdap/Td vaccine (1 - Tdap) [place], [place] Start: 2006 HPV vaccine (1 - Fem tarun 2-dose series) HPV vaccine (1 - Female 2-dose series) [place], [place] Start: 2005 Glaucoma screening Diabetes: R etinopathy Screening [facility] Start: 1996 Varicella Vaccine (1 of 2 - 2-dose childhood series) Varicella Vaccine (1 of 2 - 2-dose childhood series) [place], [place] Start: 1995 Glaucoma screening Diabetic Op hthalmology Exam [facility] Start: 1995 Urine screening for protein Urine Microalbumin [facility] End: 08-14-2025 Comprehensive metabolic 2000 panel - Serum or Plasma Comprehensive metabolic panel Lab Routine with type 2 diabetes mellitus in second trimester 1 Occurrences starting 08/14/2024 until 08/14/2025 [facility] Work Phone: Comment on above: 1 Occurrences starti ng 08/14/2024 until 08/14/2025 End: 08-14-2025 ECG 12 lead ECG 12 lead ECG Routine with type 2 diabetes mellitus in second trimester Long Q-T syndrome 1 Occurrences starting 08/14/2024 until 08/14/2025 [facility] Comment on above: 1 Occurrences starti ng 08/14/2024 until 08/14/2025 End: 08-14-2025 Thyroid profile includes TSH FT4 Thyroid profile includes TSH FT4 Lab Routine with type 2 diabetes mellitus in second trimester 1 Occurrences starting 08/14/2024 until 08/14/2025 [facility] Comment on above: 1 Occurrences starti ng 08/14/2024 until 08/14/2025 Immunizations Immunization Date Immunization Notes Care Provider Marilee painter 09-06-2009 tetanus toxoid, redu keron diphtheria toxoid, and acellular pertussis vaccine, adsorbed Darío [facility] Work Phone: [facility] 08-25-2007 meningococcal polysaccharide (groups A, C, Y and W-135) diphtheria toxoid conjugate vaccine (MCV4P) [facility] Work Phone: [facility] 08-25-2007 tetanus toxoid, redu keron diphtheria toxoid, and acellular pertussis vaccine, adsorbed Darío [facility] Work Phone: [facility] 08-25-2007 varicella virus vaccine Edmond gabbie Floro CN Work Phone: [facility] 09-06-2000 diphtheria, tetanus toxoids and acellular pertussis vaccine, unspecified formulation Darío Floro CNM Work Phone: [facility] 09-06-2000 measles, mumps and r ubella virus vaccine Darío Floro CNM Work Phone: [facility] 09-06-2000 poliovirus vaccine, unspecified formulation Darío Floro CNM Work Phone: [facility] 12-24-1996 varicella virus vaccine Madeline gabbie Floro CNM Work Phone: [facility] 10-12-1996 diphtheria, tetanus toxoids and acellular pertussis vaccine, unspecified formulation Darío Floro CNM Work Phone: [facility] 10-12-1996 haemophilus influenz ae type b vaccine, conjugate unspecified formulation Darío Floro CN Work Phone: [facility] 10-12-1996 measles, mumps and r ubella virus vaccine Darío Floro CNM Work Phone: [facility] 02-25-1996 diphtheria, tetanus toxoids and acellular pertussis vaccine, unspecified formulation Darío Floro CNM Work Phone: [facility] 02-25-1996 haemophilus influenz ae type b vaccine, conjugate unspecified formulation Darío Floro CNM Work Phone: [facility] 02-25-1996 hepatitis B vaccine, pediatric or pediatric/adolescent dosage Darío Floro CNM Work Phone: [facility] 02-25-1996 poliovirus vaccine, unspecified formulation Darío Floro CNM Work Phone: [facility] 1995 diphtheria, tetanus toxoids and acellular pertussis vaccine, unspecified formulation Darío Floro CNM Work Phone: [facility] 1995 haemophilus influenz ae type b vaccine, conjugate unspecified formulation Darío Floro CNM Work Phone: [facility] 1995 poliovirus vaccine, unspecified formulation Darío Floro CNM Work Phone: [facility] 1995 diphtheria, tetanus toxoids and acellular pertussis vaccine, unspecified formulation Darío Floro CNM Work Phone: [facility] 1995 haemophilus influenz ae type b vaccine, conjugate unspecified formulation Darío Floro CNM Work Phone: [facility] 1995 hepatitis B vaccine, pediatric or pediatric/adolescent dosage Darío Floro CNM Work Phone: [facility] 1995 poliovirus vaccine, unspecified formulation Darío Floro CNM Work Phone: [facility] 1995 hepatitis B vaccine, pediatric or pediatric/adolescent dosage Darío Floro CNM Work Phone: [facility] Payers Date Payer Category Payer Unknown BCBS BCBS OUT OF STATE xxxxxxxxxxxx 2019-Present [address] [place] [address] xxxxxxxxxxxx [id number] 2019 [facility] BCBS [id number] 2019 [facility] Managed Care - Other [id number]. [id number] 2019 Unknown [id number] 2016 Unknown [id number]. 1.13.693.2. [id number] 1995 Unknown [id number] 2.16.840.1.439800.3.579.2. 173 1995 Unknown [id number] 2.16.840.1.926044.3.579.2. 1286 1995 Unknown [id number] 2.16.840.1.714911.3.579.2. 1286 1995 Unknown [id number] 2.16.840.1.478021.3.579.2. 1286 1995 Unknown [id number] 2.16.840.1.051471.3.579.2. 1286 1995 Unknown [id number] 2.16.840.1.829475.3.579.2. 1286 1995 Unknown [id number] 2.16.840.1.763852.3.579.2. 1286 1995 Unknown [id number] 2.16.840.1.840289.3.579.2. 1286 1995 Unknown [id number] 2.16.840.1.197467.3.579.2. 1286 1995 Unknown [id number] 2.16.840.1.248410.3.579.2. 1286 1995 Unknown [id number] 2.16.840.1.831208.3.579.2. 1286 1995 Unknown [id number] 2.16.840.1.374847.3.579.2. 1286 1995 Unknown [id number] 2.16.840.1.437725.3.579.2. 1259 1995 Unknown [id number] 2.16.840.1.134504.3.579.2. 1259 1995 Unknown [id number] 2.16.840.1.731995.3.579.2. 1258 1995 Unknown [id number] 2.16.840.1.935199.3.579.2. 1258 1995 Unknown [id number] 2.16.840.1.895962.3.579.2. 1258 1995 Unknown [id number] 2.16.840.1.494701.3.579.2. 1258 1995 Unknown [id number] 2.16.840.1.548330.3.579.2. 1258 1995 Unknown [id number] 2.16.840.1.254604.3.579.2. 1258 1995 Unknown [id number] 2.16.840.1.249847.3.579.2. 1258 1995 Unknown [id number] 2.16.840.1.633139.3.579.2. 1258 1995 Unknown [id number] 2.16.840.1.249775.3.579.2. 1258 1995 Unknown [id number] 2.16.840.1.986225.3.579.2. 1258 1995 Unknown [id number] 2.16.840.1.919338.3.579.2. 1258 1995 Unknown [id number] 2.16.840.1.162654.3.579.2. 1258 1995 Unknown [id number] 2.16.840.1.001593.3.579.2. 1258 1995 Unknown [id number] 2.16.840.1.380599.3.579.2. 1258 1995 Unknown [id number] 2.16.840.1.306226.3.579.2. 1258 1995 Unknown [id number] 2.16.840.1.887431.3.579.2. 1258 1995 Unknown [id number] 2.16.840.1.453359.3.579.2. 1259 1995 Unknown [id number] 2.16.840.1.091080.3.579.2. 1259 1995 Unknown [id number] 2.16.840.1.996908.3.579.2. 1259 Social History Date Type Detail Facility Tobacco smoking stat us [facility] Unknown if ever smoked [facility] Start: 1995 Sex Assigned At Not on file [facility] Start: 02-10-2023 End: 07-25-2024 Tobacco smoking status [...] to any clubs or organizations such as lutheran groups, unions, fraternal [...] Not at all [facility] (I/We) worried arpita er (my/our) food would run out before (I/we) got money to buy more. Never true [facility] Start: 02-11-2023 Alcohol Comment 3 or 4 drinks on typical day / monthly or less. Caffeine: 1-2 cups/day [facility] Start: 1995 Sex assigned at Female [facility] Start: 02-08-2023 Gender identity Identifies as female gender (finding) [facility] Start: 05-16-2024 [facility] Start: 08-14-2024 End: 11-09-2024 Alcoholic beverage intake [facility] Start: 03-19-2015 End: 07-25-2024 Sex Female (finding) [facility] Medical Equipment Procedure Code Equipment Code Equipment Origin al Text Equipment Identifier Dates [id number] Start: 11-29-2023 End: 11-28-2024 Check urine for ketones if blood sugar/glucose 200 or above daily as needed. Use as directed. [id number] Start: 08-14-2024 USE DIRECTED FIVE TIMES DAILY [id number] Start: 10-03-2024 Functional Status Date Assessment Result Facility 01-18-2025 Patient Health Quest ionnaire 2 item (PHQ-2) [Reported] [facility] 12-07-2024 Patient Health Quest ionnaire 2 item (PHQ-2) [Reported] [facility] 10-09-2024 Patient Health Quest ionnaire 2 item (PHQ-2) [Reported] [facility] Clinical Notes 05-03-2024 to 01-29-2025 Darío Banuelos CNM - 01/29/2025 4:30 PM EDTDarío Banuelos CNM - 01/22/2025 4:30 PM Sal Delatorre, - [...] type 2 diabetes mellitus in third trimester ([facility]) Type 2 diabetes mellitus treated with insulin ([facility]) Encounter for care of first , third trimester ([facility]) Continue vitamin. Labs reviewed. GBS negative Expected mode of delivery Follow up in 1 week for a routine visit. documented in this encounter [facility] 01-22-2025 History of Presen t [...] Type 2 diabetes mellitus treated with insulin ([facility]) Glucose log reviewed, patient states Dr Crowley adjusted her insulin as her glucose levels were going low. Med list is current in [facility]. Continue vitamin. Labs reviewed. GBS taken. Expected mode of delivery vaginal Follow up in 1 week for a routine visit. documented in this encounter [facility] 01-18-2025 History of Presen t [...] MG TABS) Labs [facility] HEMOGLOBIN A1C/HEMOGLOBIN.TOTAL:MFR:PT:BLD: QN: 6.1 Outpatient prescription [...] the patient today. documented in this encounter [facility] [facility] 01[facility]25 History of Presen t [...] a routine visit. documented in this encounter [facility] 01-09-2025 History of Presen t [...] a routine visit. documented in this encounter [facility] 01-01-2025 History of Presen t [...] little bit. Patient states her testing at [facility] was normal on Wednesday, she has had [...] a routine visit. documented in this encounter [facility] 12-26-2024 History of Presen t [...] will do all nst's and bpp's at [place] per Dr Sam Objective Physical Exam Weight: [...] a routine visit. documented in this encounter [facility] 12-25-2024 History of Presen t [...] nursing note reviewed. Exam conducted with a branch library clerk present. Vitals: Estimated body mass index is [...] resulted Patient presents today for referral from [facility] due to Type 2 Diabetes and . Patient is setup for NST/BPP Bi-Weekly/Weekly at [facility]'s office. Patient voiced that she was seen at [facility] for anatomy Scan. Advised patient that it is preferred to have NST/BPP at [facility] for co-management in . Patient is agreeable with having location changed. Order will be given to patient today to have setup at [facility]. Discussed delivery with patient and if sugars are controlled well with insulin then she will be able to delivery at 39 weeks gestation, but if sugars are not well controlled then delivery would be recommended at 38 weeks to prevent issues with placenta. Patient is currently taking Aspirin 81mg daily. FHT 145, patient to continue care with [facility] and reach out to office with any concerns. Documented by Estelle Hughes LPN on behalf of: Henry Sam DO documented in this encounter [facility] 12-11-2024 History of Presen t [...] during . Managed by Awilda Crowley in [place]. Did see MFM Objective Physical Exam Expected [...] a routine visit. documented in this encounter [facility] 12-07-2024 History of Presen t [...] MG TABS) Labs [facility] HEMOGLOBIN A1C/HEMOGLOBIN.TOTAL:MFR:PT:BLD: QN: 5.7 Outpatient prescription Medication marked as long-term The ASCVD Risk score ([place] DK, et al., 2019) failed to calculate [...] the patient today. documented in this encounter [facility] 11-15-2024 History of Presen t [...] a routine visit. documented in this encounter [facility] 11-08-2024 History of Presen t illness Narrative Reginaldphylicia Reyes Date of visit: 11/08/2024 Date of : 1995 Age: 29 y.o. Patient Active Problem List Diagnosis Abnormal glucose Insulin resistance Mixed hyperlipidemia PCOS (polycystic ovarian syndrome) Type 2 diabetes mellitus without complication ([facility]) Pre-existing type 2 diabetes mellitus during in [...] Chief Complaint Patient presents with New Patient WOOL BRUSHER - ref by [facility] for long QT [...] 460 milliseconds. She followed up with a lead material handler but no intervention was performed since the [...] Past Medical History: Diagnosis Date Diabetes mellitus ([facility]) Hyperlipidemia Insulin resistance Long Q-T syndrome Prolonged [...] Resource Strain: Low Risk (06/07/2024) Received from [facility] Overall Financial Resource Strain (CARDIA) Difficulty of Paying Living Expenses: Not hard at all Food Insecurity: No Food Insecurity (11/08/2024) Hunger Screening Food Insecurity - Worry: Never True Food Insecurity - Inability: Never True Transportation Needs: No Transportation Needs (06/07/2024) Received from [facility] PRAPARE - Transportation Lack of Transportation (Medical): No Lack of Transportation (Non-Medical): No Physical Activity: Sufficiently Active (06/07/2024) Received from [facility] Exercise Vital Sign Days of Exercise per Week: 5 days Minutes of Exercise per Session: 30 min Stress: No Stress Concern Present (06/07/2024) Received from [facility] [place] of Occupational Health - Occupational Stress Questionnaire Feeling of Stress : Not at all Social Connections: Socially Integrated (06/07/2024) Received from [facility] Social Connection and Isolation Panel [NHANES] Frequency of Communication with Friends and Family: More than three times a week Frequency of Social Gatherings with Friends and Family: Three times a week Attends Anabaptist Services: More than 4 times per year Active Member of Clubs or Organizations: Yes Attends Club or Organization Meetings: More than 4 times per year Marital Status: Interpersonal Safety: Not At Risk (04/09/2023) Received from [facility], [facility] Humiliation, Afraid, Rape, and Kick questionnaire Fear of Current or Ex-Partner: No Emotionally Abused: No Physically Abused: No Sexually Abused: No Housing Instability: Low Risk (06/07/2024) Received from [facility] Housing Stability Vital Sign Unable [...] - [facility] - [facility]iology - [place], [place] - [facility] EKG 2. Hx of prolonged [...] Physician: Aye Saucedo MD [address] [place] [address] documented in this encounter [facility] 11-07-2024 Miscellaneous Notes [employer] MESSAGE REMINDER SENT TO PT TO REMIND OF PPC APPT. documented in this encounter [facility] 11-07-2024 Telephone encounter Note [employer] MESSAGE REMINDER SENT TO PT TO REMIND OF PPC APPT. [facility] 10-18-2024 History of Presen t illness [...] without long-term current use of insulin ([facility]) Encounter for care of first , second trimester ([facility]) Continue vitamin. Labs reviewed. Rhogam GTT not doing due to already being type 2 diabetic Follow up in 4 weeks for a routine visit. documented in this encounter [facility] 10-10-2024 History of Presen t illness Narrative REASON FOR TELEMEDICINE VIDEO OFFICE VISIT: Suspected Maternal prolonged QT ruled out. HISTORY OF PRESENT ILLNESS: Reginald Reyes is a pleasant 29 y.o. G 1 P0 at 21w1d due on Estimated Date of Delivery: 02/19/25 . has been complicated with Pre gestational type 2 diabetes on insulin. Patient diabetes is managed by her thermit welding machine operator and not by [facility]. Patient is comfortable with her thermit welding machine operator. Blood glucose are adequately controlled. Suspected prolonged QT syndrome. Patient was told as a child so she might a borderline prolonged QT syndrome. No intervention was done. Patient then was lost for follow-up and has not seen seamstress fitter for more than 10 years. Therefore the [...] syndrome) Type 2 diabetes mellitus without complication ([facility]) Long Q-T syndrome Pre-existing type 2 diabetes [...] Past Medical History: Diagnosis Date Diabetes mellitus ([facility]) Hyperlipidemia Insulin resistance Long Q-T syndrome Prolonged [...] completion of targeted anatomy and echocardiography at [facility]. 2. Serial growth ultrasounds every 4 weeks [...] Visit via Real-time Synchronous Audiovisual Provider Location: [facility] AT [address] [address] Patient Location: Patient's home Patient Location Principal Security Architect: None Video Visit Consent Statement: I discussed [...] that there are some limitations compared to [id number] evaluations. We elected to proceed. documented in this encounter [facility] 10-09-2024 History of Presen t illness [...] MG TABS) Labs [facility] HEMOGLOBIN A1C/HEMOGLOBIN.TOTAL:MFR:PT:BLD: QN: 5.7 Outpatient prescription Medication marked as long-term The ASCVD Risk score ([place] DK, et al., 2019) failed to calculate [...] complication, without long-term current use of insulin ([facility]) Relevant Orders POCT glycosylated hemoglobin (Hb A1C) [...] the patient today. documented in this encounter [facility] 09-28-2024 History of Presen t [...] complication, without long-term current use of insulin ([facility]) Continue vitamin. Labs reviewed Follow up in 2 weeks for a routine visit. documented in this encounter [facility] 09-19-2024 History of Presen t illness Narrative Reginald Reyes Date of visit: 09/19/2024 Date of : 1995 Age: 29 y.o. Patient Active Problem List Diagnosis Long Q-T syndrome Abnormal glucose Insulin resistance Mixed hyperlipidemia PCOS (polycystic ovarian syndrome) Type 2 diabetes mellitus without complication ([facility]) Long Q-T syndrome Pre-existing type 2 diabetes [...] by mouth in the morning. blood-glucose sensor ([employer] G7 SENSOR) device Use to monitor blood [...] Chief Complaint Patient presents with New Patient WOOL BRUSHER REF - Long Q-T syndrome SEEN CARDIO [...] any family history. She stopped seeing a lead material handler age of 18 Since she is now 18 weeks we are have been asked to evaluate her for this Today's EKG shows sinus rhythm QT is measured at 382 corrected 420 milliseconds Past Medical History: Diagnosis Date Diabetes mellitus ([facility]) Hyperlipidemia Insulin resistance Long Q-T syndrome Prolonged [...] Resource Strain: Low Risk (06/07/2024) Received from [facility] Overall Financial Resource Strain (CARDIA) Difficulty of Paying Living Expenses: Not hard at all Food Insecurity: No Food Insecurity (09/19/2024) Hunger Screening Food Insecurity - Worry: Never True Food Insecurity - Inability: Never True Transportation Needs: No Transportation Needs (06/07/2024) Received from [facility] PRAPARE - Transportation Lack of Transportation (Medical): No Lack of Transportation (Non-Medical): No Physical Activity: Sufficiently Active (06/07/2024) Received from [facility] Exercise Vital Sign Days of Exercise per Week: 5 days Minutes of Exercise per Session: 30 min Stress: No Stress Concern Present (06/07/2024) Received from [facility] [employer] [place] of Occupational Health - Occupational Stress Questionnaire Feeling of Stress : Not at all Social Connections: Socially Integrated (06/07/2024) Received from [facility] Social Connection and Isolation Panel [NHANES] Frequency of Communication with Friends and Family: More than three times a week Frequency of Social Gatherings with Friends and Family: Three times a week Attends Anabaptist Services: More than 4 times per year Active Member of Clubs or Organizations: Yes Attends Club or Organization Meetings: More than 4 times per year Marital Status: Interpersonal Safety: Not At Risk (04/09/2023) Received from [facility], [facility] Humiliation, Afraid, Rape, and Kick questionnaire Fear of Current or Ex-Partner: No Emotionally Abused: No Physically Abused: No Sexually Abused: No Housing Instability: Low Risk (06/07/2024) Received from [facility] Housing Stability Vital Sign Unable [...] ORAL) IMPRESSIONS/PLAN 1. Long [facility] [place] [place] - POCT EKG - [facility] - [place], [place]; Future 2. Type 2 diabetes mellitus without complication, 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 ([facility]) 1. Questionable long QT syndrome -she was [...] TODAYS ORDERS Orders Placed This Encounter Procedures [facility] - Electrophysiology - [place], [place] POCT EKG FOLLOW UP No follow-ups on file. PCP: LILIANA Peralta Referring Physician: Svetlana Jack PA-C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 Drophammer Operator Relationship Specialty Start Date End Date Darío Banuelos APRN-CNM [address] [place] [address] PCP - General Nurse Barrel Line Operator 04/15/18 Drophammer Operator Relationship Specialty Start Date End Date Unallocated, Danay Biggs MD [address] [place] [address] PCP - General 04/16/23 Awilda Delatorre, DO [address] [place] [address] PCP - [employer] 06/16/23 Darío Banuelos CN [address] [place] [address] Obstetrics and Gynecology 02/10/23 Drophammer Operator Relationship Specialty Start Date End Date Unallocated, Francisco Javiers MD Dian [address] [place] [address] PCP - General 04/16/23 Awilda Delatorre, DO [address] [place] [address] PCP - [employer] 06/16/23 Darío Banuelos CN [address] [place] [address] Obstetrics and Gynecology 02/10/23 Drophammer Operator Relationship Specialty Start Date End Date Unallocated, Danay Biggs MD [address] [place] [address] PCP - General 04/16/23 Awilda Delatorre, DO [address] [place] [address] PCP - [employer] 06/16/23 Darío Banuelos CN [address] [place] [address] Obstetrics and Gynecology 02/10/23 Drophammer Operator Relationship Specialty Start Date End Date Unallocated, Danay Biggs MD [address] [place] [address] PCP - General 04/16/23 Darío Banuelos CNM [address] [place] [address] Obstetrics and Gynecology 02/10/23 Drophammer Operator Relationship Specialty Start Date End Date Unallocated, Danay Biggs MD [address] [facility] [place] [address] PCP - General 04/16/23 Darío Banuelos CNM [address] [place] [address] Obstetrics and Gynecology 02/10/23 Drophammer Operator Relationship Specialty Start Date End Date Unallocated, Danay Biggs MD [address] [facility] [place] [address] PCP - General 04/16/23 Darío Banuelos CNM [address] [place] [address] Obstetrics and Gynecology 02/10/23 Drophammer Operator Relationship Specialty Start Date End Date Unallocated, Danay Biggs MD [address] [facility] [place] [address] PCP - General 04/16/23 Darío Banuelos CNM [address] [place] [address] Obstetrics and Gynecology 02/10/23 Drophammer Operator Relationship Specialty Start Date End Date Unallocated, Danay Biggs MD [address] [facility] [place] [address] PCP - General 04/16/23 Darío Banuelos CNM [address] [place] [address] Obstetrics and Gynecology 02/10/23 Drophammer Operator Relationship Specialty Start Date End Date Unallocated, Danay Biggs MD [address] [facility] [place] [address] PCP - General 04/16/23 Darío Banuelos CNM [address] [place] [address] Obstetrics and Gynecology 02/10/23 Drophammer Operator Relationship Specialty Start Date End Date Unallocated, Danay Biggs MD [facility] [place] [address] PCP - General 04/16/23 Darío Banuelos CNM [address] [place] [address] Obstetrics and Gynecology 02/10/23 Drophammer Operator Relationship Specialty Start Date End Date Unallocated, Danay Biggs MD [address] [place] [address] PCP - General 04/16/23 Darío Banuelos CNM [address] [place] [address] Obstetrics and Gynecology 02/10/23 Drophammer Operator Relationship Specialty Start Date End Date Unallocated, Danay Biggs MD [address] [place] [address] PCP - General 04/16/23 Awilda Delatorre DO [address] [place] [address] PCP - [employer] Commercial 06/16/23 Darío Banuelos CNM [address] [place] [address] Obstetrics and Gynecology 02/10/23 Drophammer Operator Relationship Specialty Start Date End Date Unallocated, Noms Dian, [address] [place] [address] PCP - General 04/16/23 Awilda Delatorre DO [address] [place] [address] PCP - [employer] Commercial 06/16/23 Darío Banuelos CNM [address] [place] [address] Obstetrics and Gynecology 02/10/23 FOR RECORDS PERTAINING [...] BE BASED ON THE PRIMARY CLINICAL RECORDS. [facility]. provides no warranty or guarantee of the accuracy or completeness of information in this document.
--- OUTSIDE RECORDS SUMMARY | 2025-02-07 07:07 | XMS_ITS | Encounter Summary ---
Author Organization [facility] Address [address] [place] [address] Care Team Providers Care Home Therapy Teacher Name Role Phone Flaquita Banuelos CNM Unavailable [phone] Unallocated, Noms Provider Primary Care Provi mart Awilda Crenshaw DO Unavailable [phone] Encounter Details Date Type Department Care Team (Late st Contact Info) Description 10/06/2024 Abstract [facility] [address] [place] [address] Awilda Crenshaw, DO [address] [facility] [address] [place] [address] Social History Tobacco Use Types Packs/Day Years [...] Patient Health Questionnaire-2 Score 0 10/09/2024 [facility] [place] of Occupat ional Health - Occupational Stress [...] PM EDT Routine [facility] [address] [place] [phone] Flaquita Banuelos CNM [address] [place] [address] 02/22/2025 1:30 PM EDT Telemedicine [facility] [address] [place] [phone] Flaquita Banuelos CNM [address] [place] [address] 04/19/2025 10:45 AM EDT Office Visit [facility] [address] [place] [address] Awilda Crenshaw DO [address] [place] [address] documented as of this encounter Visit Diagnoses Not on filedocumented in this encounter Care Teams Home Therapy Teacher Relationship Specialty Start Date End Date Unallocated, Noms MD Dian [address] [place] [address] PCP - General 04/16/23 Awilda Crenshaw DO [address] [place] [address] PCP - [place] Commercial 06/16/23 Flaquita Banuelos CNM [address] [place] [address] Obstetrics and Gynecology 02/10/23 documented as of this encounter
== END 2025-02-07 07:05 | disposition home or self-care (01) ==
LOC: US 07:04
PROVIDERS: Visit Provider Midwife
DX: O24.913 Unspecified diabetes mellitus in pregnancy, third trimester (principal); Z3A.38 38 weeks gestation of pregnancy; E11.9 Type 2 diabetes mellitus without complications
CPT/HCPCS: 76816

== ENCOUNTER 2025-02-08 21:58 | Inpatient (IN) | payer BC, SELFPAY ==
--- OUTSIDE RECORDS SUMMARY | 2025-01-29 16:30 | XMS_ITS | Encounter Summary ---
Author Organization [facility] Address [address] [place] [address] Care Team Providers Care Maintenance Supervisor Mechanical Name Role Phone Flaquita Banuelos CN Unavailable [phone] Unallocated, Noms Provider Primary Care [facility] Encounter Details Date Type Department Care Team (Latest Contact Info) Description 01/29/2025 4:30 PM EDT Routine [facility] [address] [place] [phone] Flaquita Banuelos, CNM [address] [place], [place] [phone] with type 2 diabetes mellitus in third trimester ([facility]) (Primary Dx); Type 2 diabetes mellitus treated with insulin (HCC); Encounter for care of first , third trimester ([facility]) Social History Tobacco Use Types Packs/Day Years [...] How often do you attend chur or cheondoism services? More than 4 times per year [...] Recorded Patient Health Questionnaire-2 Score 0 01/18/2025 [facility] - [...] time in the past 12 m [facility], were you homeless or living [...] PM EDT Routine [facility] [address] [place] [phone] Flaquita Banuelos CNM [address] [place], [place] [phone] 02/22/2025 1:30 PM EDT Telemedicine [facility] [address] [place] [address] Flaquita Banuelos CNM [address] [place], [place] [phone] 04/19/2025 10:45 AM EDT Office Visit [facility] [address] [place] [address] Awilda Crenshaw DO [address] [place] [address] documented as of this encounter Visit Diagnoses Diagnosis with type 2 diabetes mellitus in third trimester ([facility])- Primary Type 2 diabetes mellitus treated with insulin (HCC) Encounter for care of first , third trimester ([facility]) documented in this encounter Care Teams Maintenance Supervisor Mechanical Relationship Specialty Start Date End Date Unallocated, Noms MD [address] [place] [address] PCP - General 04/16/23 Flaquita Banuelos CNM [address] [place], [place] [phone] Obstetrics and Gynecology 02/10/23 documented as of this encounter
--- OUTSIDE RECORDS SUMMARY | 2025-02-06 16:30 | XMS_ITS | Encounter Summary ---
Author Organization [facility] Address [address] [place] [address] Care Team Providers Care Sales Support Consultant Name Role Phone Flaquita Banuelos CN Unavailable [phone] Unallocated, Noms Provider Primary Care Provi mart Encounter Details Date Type Department Care Team (Latest Contact Info) Description 02/06/2025 4:30 PM EDT Routine [facility] [address] [place] [address] Flaquita Banuelos, CNM [address] [place], [place] [phone] Type 2 diabetes mellitus without complication, without [...] week 06/07/2024 How often do you attend [facility] or gnosticist services? More than 4 times per year [...] Recorded Patient Health Questionnaire-2 Score 0 01/18/2025 [facility] [place] of Occupat ional Health - Occupational Stress [...] any time in the past 12 m [facility], were you homeless or living [...] PM EDT Routine [facility] [address] [place] [phone] Flaquita Banuelos, CNM [address] [place] [address] 02/22/2025 1:30 PM EDT Telemedicine [facility] [address] [place] [phone] Flaquita Banuelos, CATHIE[address] [id number] 04/19/2025 10:45 AM EDT Office Visit [facility] [address] [place] [address] Awilda Crenshaw DO [address] [place], [place] [phone] Scheduled Orders Name Type Priority Associated Diagnoses Orde r Schedule US OB SCAN FOR GROWTH Imaging Routine Type 2 diabetes mellitus without complication, without long-term current use of insulin (HCC) Expected: 02/06/2025, Expires: 02/06/2026 documented as of this encounter Visit Diagnoses Diagnosis Type 2 diabetes mellitus without complication, without long-term current use of insulin (HCC) documented in this encounter Care Teams Sales Support Consultant Relationship Specialty Start Date End Date Unallocated, Noms [place]ian, [place] [address] PCP - General 04/16/23 Flaquita Banuelos CNM [address] [place] [phone] Obstetrics and Gynecology 02/10/23 documented as of this encounter
--- OUTSIDE RECORDS SUMMARY | 2025-02-08 22:01 | XMS_ITS | Encounter Summary ---
Author Organization [facility] Address [address] [place] [address] Care Team Providers Care Civil Preparedness Officer Name Role Phone Flaquita Banuelos CNM Unavailable [phone] Unallocated, Noms Provider Primary Care Provi mart Awilda Crenshaw DO Unavailable [phone] Encounter Details Date Type Department Care Team (Late st Contact Info) Description 08/31/2023 Abstract [facility] [address] [facility] [address] [place] [address] Awilda Crenshaw, [address] [facility] [address] [place] [address] Social History Tobacco Use Types Packs/Day Years [...] Recorded Patient Health Questionnaire-2 Score 0 04/16/2023 [facility] of Occupat ional Health - Occupational [...] in a mcfp (including now)? No 04/09/2023 Comments No Sex [...] PM EDT Routine [facility] [address] [place] [phone] Flaquita Banuelos [facility] [address] [place] [address] 02/22/2025 1:30 PM EDT Telemedicine [facility] [address] [place] [phone] Flaquita Banuelos [facility] [address] [place] [address] 04/19/2025 10:45 AM EDT Office Visit [facility] [address] [place] [address] Awilda Crenshaw DO [address] [place] [address] documented as of this encounter Visit Diagnoses Not on filedocumented in this encounter Care Teams Civil Preparedness Officer Relationship Specialty Start Date End Date Unallocated, Noms Dian, [address] [place] [address] PCP - General 04/16/23 Awilda Crenshaw DO [address] [place] [address] PCP - [place] Commercial 06/16/23 Flaquita Banuelos CNM [address] [place] [address] Obstetrics and Gynecology 02/10/23 documented as of this encounter
--- OUTSIDE RECORDS SUMMARY | 2025-02-08 22:01 | XMS_ITS | Encounter Summary ---
Author Organization [facility] Address [address] [place] [address] Care Team Providers Care Plant Guard Name Role Phone Flaquita Banuelos CNM Unavailable [phone] Unallocated, Noms Provider Primary Care Provi mart Awilda Crenshaw DO Unavailable [phone] Encounter Details Date Type Department Care Team (Late st Contact Info) Description 11/03/2024 [facility] [address] [place] [address] Awilda Crenshaw, DO [address] [facility] [address] [place] [address] Social History Tobacco Use Types Packs/Day Years [...] any clubs o r organizations such as jew groups, unions, fraternal or athletic groups, or [...] Recorded Patient Health Questionnaire-2 Score 0 10/09/2024 [facility] [place] of Occupat ional Health - Occupational Stress [...] any time in the past 12 m [facility], were you homeless or living [...] FNR OB [address] [place] [address] Flaquita Banuelos, CATHIEM [address] [place] [address] 02/22/2025 1:30 PM EDT Telemedicine [facility] FNR OB 1479 [facility] [place] [address] Flaquita Banuelos, CNM [address] [place] [address] 04/19/2025 10:45 AM EDT Office Visit [facility] S[facility] [address] [place] [address] Awilda Crenshaw, DO [address] [place] [address] documented as of this encounter Visit Diagnoses Not on filedocumented in this encounter Care Teams Plant Guard Relationship Specialty Start Date End Date Unallocated, Noms Provider, [address] [place] [address] PCP - General 04/16/23 Awilda Crenshaw, DO [address] [place] [address] PCP - [place] Commercial 06/16/23 Flaquita Banuelos CNM [facility] [facility], [place] [phone] Obstetrics and Gynecology 02/10/23 documented as of this encounter
--- OUTSIDE RECORDS SUMMARY | 2025-02-08 22:01 | XMS_ITS | Encounter Summary ---
Author Organization [facility] Address [address] [place] [address] Care Team Providers Care Solutions Consultant Name Role Phone Flaquita Banuelos CNM Unavailable [phone] Unallocated, Noms Provider Primary Care Provi mart Awilda Crenshaw DO Unavailable Encounter Details Date Type Department Care Team (Late st Contact Info) Description 11/10/2024 [facility] [address] [place] [address] Awilda Crenshaw, DO [address] [facility] 230 [place] [address] Social History Tobacco Use Types Packs/Day Years [...] Recorded Patient Health Questionnaire-2 Score 0 10/09/2024 [facility] [place] of Occupat ional Health - Occupational Stress [...] FNR OB [address] [place] [address] Flaquita Banuelos, CATHIEM 1479 [place] [address] 02/22/2025 1:30 PM EDT Telemedicine [facility] FNR OB [address]79 [place] [address] Flaquita Banuelos, CNM 14[address] [place] [address] 04/19/2025 10:45 AM EDT Office Visit [facility] SWS [facility] [address] [place] [address] Awilda Crenshaw, DO [address] [place] [address] documented as of this encounter Visit Diagnoses Not on filedocumented in this encounter Care Teams Solutions Consultant Relationship Specialty Start Date End Date Unallocated, Noms Provider, [address] [place] [address] PCP - General 04/16/23 Awilda Crenshaw, DO [address] [place] [address] PCP - [place] Commercial 06/16/23 Flaquita Banuelos CNM [facility]9 [facility], [place] [id number] Obstetrics and Gynecology 02/10/23 documented as of this encounter
--- OUTSIDE RECORDS SUMMARY | 2025-02-08 22:01 | XMS_ITS | Clinical Summary ---
Author Organization [employer] tem Address [id number] [address] [place] [address] Care Team Providers Care Pastry Chef Name Role Phone SheebaWanda sanchezFlaquitalibby LACY-CNM Primary Care Provider [phone] Allergies No known active allergies Medications metFORMIN [...] Cardiology [address] [place] [address] Robby Quezada MD Goyal, Vishal, MD Long Q-T syndrome (Primary Dx); Hx of prolonged Q-T interval on ECG from Last 3 Months Immunizations Immunization Administration [...] from Last 3 Months Insurance [employer] [facility] Care Teams Pastry Chef Relationship Specialty Start Date End Date Flaquita Banuelos APRN-CNM [address] [place] [address] PCP - General Nurse Airport Skilled Maintenance Supervisor 04/15/18
--- OUTSIDE RECORDS SUMMARY | 2025-02-08 22:01 | XMS_ITS | Encounter Summary ---
Author Organization [facility] Address [address] [place] [address] Care Team Providers Care Esthetician Facialist Name Role Phone Flaquita Banuelos CNM Unavailable [phone] Unallocated, Noms Provider Primary Care Provi mart Encounter Details Date Type Department Care Team (Late st Contact Info) Description 11/30/2024 Abstract [facility] [address] [place] [address] Awilda Crenshaw, DO [address] [place] [address] Social History Tobacco Use Types Packs/Day Years [...] any clubs o r organizations such as judaism groups, unions, fraternal or athletic groups, or [...] Recorded Patient Health Questionnaire-2 Score 0 10/09/2024 [facility] of Occupat ional Health - [...] PM EDT Routine [facility] FNR OB [address] [place] [address] Flaquita Banuelos CNM [address] [place], [place] [address] 02/22/2025 1:30 PM EDT Telemedicine [facility] FNR OB [address] [place] [address] Flaquita Banuelos CNM [address] [place], [place] [address] 04/19/2025 10:45 AM EDT Office Visit [facility] S[facility] [address] [place] [address] Awilda Crenshaw, DO [address] [place] [address] documented as of this encounter Visit Diagnoses Not on filedocumented in this encounter Care Teams Esthetician Facialist Relationship Specialty Start Date End Date Unallocated, Noms MD Dian [address] [place] [address] PCP - General 04/16/23 Flaquita Banuelos CNM [facility]9 [place], [place] [address] Obstetrics and Gynecology 02/10/23 documented as of this encounter
--- OUTSIDE RECORDS SUMMARY | 2025-02-08 22:01 | XMS_ITS | Encounter Summary ---
Author Organization [facility] Address [address] [place] [address] Care Team Providers Care Director Card Name Role Phone Darío BanuelosM Unavailable [phone] Unallocated, Noms Provider Primary Care Provi mart Encounter Details Date Type Department Care Team (Late st Contact Info) Description 02/07/2025 Clinisync Result Encounter [facility] External Department Unsolicited Darío Banuelos, CATHIEM [address] [place] [address] Social History Tobacco Use Types Packs/Day Years [...] Recorded Patient Health Questionnaire-2 Score 0 01/18/2025 [facility] of Occupat ional Health - [...] PM EDT Routine NOMS FNR OB [address] [place] [address] Darío Banuelos, CNM [address] [place], [place] [address] 02/22/2025 1:30 PM EDT Telemedicine [facility] FNR OB [address] [place] [address] Darío Banuelos, CNM [address] [place], [place] [address] 04/19/2025 10:45 AM EDT Office Visit [facility] S[facility] [address] [place] [address] Awilda Crenshaw, DO [address] [place] [address] documented as of this encounter Procedures Procedure Name Priority Date/Time Associated Diagnosis Comments US OB GROWTH 02/07/2025 8:14 AM EDT documented in this encounter Results * US OB GROWTH (02/07/2025 8:14 AM EDT) Anatomical Region Laterality Modality Other 02/07/2025 8:14 AM EDT Narrative 02/07/2025 8:16 [place] [address] Ultrasound Report Signed Patient: REGINALD REYES MR#: [id number] : 1995 Acct:[id number] Age/Sex: 29 / F ADM Date: 02/07/25 Loc: US Attending Dr: DARÍO BANUELOS APRN, CNM Ordering Physician: DARÍO BANUELOS APRN, CNM Date of Service: 02/07/25 Procedure(s): US OB growth Accession Number(s): [id number] cc: DARÍO BANUELOS APRN, CNM; Physician,Non-Staff M.D. The [address] [address] Patient Name: REGINALD REYES MRN: [facility]:[id number] date: 1995 Sex: F Assigned Patient Location: Current Patient Location: US Accession/Order Number: [id number] Exam Date: 02/07/2025 08:09 Report Date: 02/07/2025 08:14 At the request of: DARÍO BANUELOS APRN, CNM Procedure: US OB growth ULTRASOUND OB GROWTH CLINICAL INFORMATION: TYPE 2 DIABETES MELLITUS E11.9 COMPARISON: 01/12/2025 There is a single live intrauterine gestation in cephalic presentation. There is cardiac and somatic activity. The heart rate measures 128 beats per minute. The amniotic fluid index measures 15.4 cm which is in upper normal range. The following measurements were obtained: Biparietal diameter 9.2 cm 37 weeks 1 day 46% Head circumference 33.9 cm 39 weeks 0 days 49% Abdominal circumference 36.1 cm 40 weeks 0 days 96% Femur length 6 7.5 cm 38 weeks 2 days 55% The composite ultrasound age based on these measurements is 38 weeks 4 days +/- 2 weeks 5 days. The estimated date of delivery is 02/17/2025. The estimated weight is 8 lbs. 2 oz. +/- 1 lb. 4 oz. (83%) US/US OB growth IMPRESSION: SINGLE LIVE INTRAUTERINE GESTATION WITH ULTRASOUND AGE OF 38 WEEKS 4 DAYS. APPROPRIATE INTERVAL GROWTH. Impression dictated by: Elle Mcleod M.D. 02/07/2025 8:14 AM Dictation Location: [place] [address] Electronically authenticated by: [id number] Y Date: 02/07/2025 08:14 Dictated By: Elle Mcleod M.D. Signed By: 02/07/2516 DD/ TD/TT: Corporate Sales Manager: Procedure Note Radiology, Radiologist, MD - 02/07/2025 [place] [address] Ultrasound Report Signed Patient: REGINALD REYES MMR#: [id number] : 1995Acct:[id number] Age/Sex: 29 / FADM Date: 02/07/25 Loc: US Attending Dr: DARÍO BANUELOS APRNSADIA Ordering Physician: DARÍO BANUELOS APRN, CNM Date of Service: 02/07/25 Procedure(s): US OB growth Accession Number(s): [id number] cc: DARÍO BANUELOS APRN, CNM; Physician,Non-Staff [place] [address] [address] Patient Name: REGINALD REYES MRN: [facility]:[id number] date: 1995 Sex: F Assigned Patient Location: Current Patient Location: US Accession/Order Number: [id number] Exam Date: 02/07/2025 08:09 Report Date: 02/07/2025 08:14 At the request of: DARÍO BANUELOS APRN, CNM Procedure: US OB growth ULTRASOUND OB GROWTH CLINICAL INFORMATION: TYPE 2 DIABETES MELLITUS E11.9 COMPARISON: 01/12/2025 There is a single live intrauterine gestation in cephalic presentation.There is cardiac and somatic activity. The heart rate measures 128 beats per minute. The amniotic fluid index measures 15.4 cm which is inupper normal range. The following measurements were obtained: Biparietal diameter 9.2 cm 37 weeks 1 day 46% Head circumference 33.9 cm 39 weeks 0 days 49% Abdominal circumference 36.1 cm 40 weeks 0 days 96% Femur length 6 7.5 cm 38 weeks 2 days 55% The composite ultrasound age based on these measurements is 38 weeks 4days +/- 2 weeks 5 days. The estimated date of delivery is 02/17/2025. The estimated weight is 8 lbs. 2 oz. +/- 1 lb. 4 oz. (83%) US/US OB growth IMPRESSION: SINGLE LIVE INTRAUTERINE GESTATION WITH ULTRASOUND AGE OF 38 WEEKS 4 DAYS. APPROPRIATE INTERVAL GROWTH. Impression dictated by: Elle Mcleod M.D. 02/07/2025 8:14 AM Dictation Location: [place] [address] Electronically authenticated by: [id number] Y Date: 508:14 Dictated By: Elle Mcleod M.D. Signed By:02/07/25 0816 DD/ TD/TT: Corporate Sales Manager: Darío Banuelos CNM [facility] Final Resu lt documented in this encounter Visit Diagnoses Not on filedocumented in this encounter Care Teams Director Card Relationship Specialty Start Date End Date Unallocated, Noms Provider, [address] [place] [address] PCP - General 04/16/23 Darío Banuelos CNM [address] [place] [address] Obstetrics and Gynecology 02/10/23 documented as of this encounter
--- OUTSIDE RECORDS SUMMARY | 2025-02-08 22:01 | XMS_ITS | Encounter Summary ---
Author Organization [facility] Address [address] [place] [address] Care Team Providers Care Dairy Specialist Name Role Phone Flaquita Banuelos CNM Unavailable [phone] Unallocated, Noms Provider Primary Care Provi mart Awilda Crenshaw DO Unavailable [phone] Encounter Details Date Type Department Care Team (Late st Contact Info) Description 10/20/2024 Abstract [facility] [address] [place] [address] Awilda Crenshaw, DO [address] [facility] 230 [place] [address] Social History Tobacco Use Types Packs/Day Years [...] Recorded Patient Health Questionnaire-2 Score 0 10/09/2024 [facility] [place] of Occupat ional Health - Occupational Stress [...] FNR OB [address] [place] [address] Flaquita Banuelos, CATHIEM [address] [place] [address] 02/22/2025 1:30 PM EDT Telemedicine [facility] FNR OB 1479 [place] [address] Flaquita Banuelos, CNM 1479 [place] [address] 04/19/2025 10:45 AM EDT Office Visit [facility] SWS FM [address] [place] [address] Awilda Crenshaw, DO [address] [place] [address] documented as of this encounter Visit Diagnoses Not on filedocumented in this encounter Care Teams Dairy Specialist Relationship Specialty Start Date End Date Unallocated, Noms Provider, [address] [place] [address] PCP - General 04/16/23 Awilda Crenshaw, DO [address] [place] [address] PCP - [place] Commercial 06/16/23 Flaquita Banuelos CNM [facility]9 [facility], [place] [address] Obstetrics and Gynecology 02/10/23 documented as of this encounter
--- OUTSIDE RECORDS SUMMARY | 2025-02-08 22:01 | XMS_ITS | Encounter Summary ---
Author Organization [facility] Address [address] [place] [address] Care Team Providers Care Machine Clothing Replacer Name Role Phone Flaquita Banuelos CNM Unavailable [phone] Unallocated, Noms Provider Primary Care Provi mart Encounter Details Date Type Department Care Team (Late st Contact Info) Description 12/07/2024 [facility] [address] [place] [address] Unallocated, Noms Provider, [address] [place], [place] [address] Social History Tobacco Use Types Packs/Day Years [...] Recorded Patient Health Questionnaire-2 Score 0 12/07/2024 [facility] of Occupat ional Health - Occupational [...] FNR OB [address] [facility] [address] Flaquita Banuelos, CATHIEM [address] [place] [address] 02/22/2025 1:30 PM EDT Telemedicine [facility] FNR OB [address] [facility] [address] Flaquita Banuelos CNM [address] [place] [address] 04/19/2025 10:45 AM EDT Office Visit [facility] SWS FM [address] [place] [address] Awilda Crenshaw, DO [address] [place] [address] documented as of this encounter Visit Diagnoses Not on filedocumented in this encounter Care Teams Machine Clothing Replacer Relationship Specialty Start Date End Date Unallocated, Noms MD Dian [address] [address] PCP - General 04/16/23 Flaquita Banuelos CNM [address] [place] [address] Obstetrics and Gynecology 02/10/23 documented as of this encounter
--- OUTSIDE RECORDS SUMMARY | 2025-02-08 22:01 | XMS_ITS | Encounter Summary ---
Author Organization [facility] Address [address] [place] [address] Care Team Providers Care Arabic Professor Name Role Phone Flaquita Banuelos CNM Unavailable [phone] Unallocated, Noms Provider Primary Care Provi mart Encounter Details Date Type Department Care Team (Late st Contact Info) Description 12/20/2024 Results Follow-Up [facility] FNR OB [address]79 [place] [address] Flaquita Banuelos, CNM 14[address] [place], [place] [address] Social History Tobacco Use Types Packs/Day Years [...] often do you attend chur ch or lutheran services? More than 4 times [...] any time in the past 12 m [facility], were you homeless or [...] PM EDT Routine N[facility]S FNR OB 14[address] [place] [address] Flaquita Banuelos CNM [address] [place] [address] 02/22/2025 1:30 PM EDT Telemedicine [facility] FNR OB [address] [place] [address] Flaquita Banuelos CNM [facility], [place] [address] 04/19/2025 10:45 AM EDT Office Visit [facility] SWS FM [address] [place] [address] Awilda Crenshaw, DO [address] [place] [address] documented as of this encounter Visit Diagnoses Not on filedocumented in this encounter Care Teams Arabic Professor Relationship Specialty Start Date End Date Unallocated, Noms MD Dian [address] [place] [address] PCP - General 04/16/23 Flaquita Banuelos CNM [address] [place] [address] Obstetrics and Gynecology 02/10/23 documented as of this encounter
--- OUTSIDE RECORDS SUMMARY | 2025-02-08 22:01 | XMS_ITS | Encounter Summary ---
Author Organization [facility] Address [id number] [address] [place] [address] Care Team Providers Care Radiology Receptionist Name Role Phone Flaquita Banuelos BAMBI-CNM Primary Care Provider [phone] Encounter Details Date Type Department Care Team (Late st Contact Info) Description 09/18/2024 Orders Only [facility] [address] [place] [address] External, Scanning Provider Social History [...] Scanning Provider External ECG ORDERABLES Final Result [facility] [place] [facility] [address] [place] [address] documented in this encounter Visit Diagnoses Not on filedocumented in this encounter Additional Health Concerns Assessment Noted Time PHQ-9 Depression Total Score: 0 03/03/20 17 3:00 PM EDT documented as of this encounter Care Teams Radiology Receptionist Relationship Specialty Start Date End Date Flaquita Banuelos APRN-CNM [address] [place] [address] PCP - General Nurse Flight Steward 04/15/18 documented as of this encounter
--- OUTSIDE RECORDS SUMMARY | 2025-02-08 22:01 | XMS_ITS | Encounter Summary ---
Author Organization [facility] Address [address] [place] [address] Care Team Providers Care Child Welfare Manager Name Role Phone Flaquita Banuelos CNM Unavailable [phone] Unallocated, Noms Provider Primary Care Provi mart Awilda Crenshaw DO Unavailable [phone] Encounter Details Date Type Department Care Team (Late st Contact Info) Description 04/16/2023 Abstract [facility] SWS FM [address] [facility] 230 [place] [address] Awilda Crenshaw, [address] [facility] 230 [place] [address] Social History Tobacco Use Types Packs/Day Years [...] Recorded Patient Health Questionnaire-2 Score 0 04/16/2023 [facility] of Occupat ional Health - Occupational [...] a long term (including now)? No 04/09/2023 Comments No Sex [...] EDT Routine N[facility] FNR OB [address] [facility] [place] [address] Flaquita Banuelos, CNM [address]79 [facility] [place] [address] 02/22/2025 1:30 PM EDT Telemedicine N[facility] FNR OB [address] [facility] [place] [address] Flaquita Banuelos, CNM [address] [facility] [place] [address] 04/19/2025 10:45 AM EDT Office Visit [facility] SWS FM [address] [place] [address] Awilda Crenshaw DO [address] [place] [address] documented as of this encounter Visit Diagnoses Not on filedocumented in this encounter Care Teams Child Welfare Manager Relationship Specialty Start Date End Date Unallocated, Noms Provider, [place] [address] PCP - General 04/16/23 Awilda Crenshaw, DO [address] [place] [address] PCP - [place] Commercial 06/16/23 Flaquita Banuelos CNM [address] [place] [address] Obstetrics and Gynecology 02/10/23 documented as of this encounter
--- OUTSIDE RECORDS SUMMARY | 2025-02-08 22:01 | XMS_ITS | Encounter Summary ---
Author Organization [facility] Address [address] [place] [address] Care Team Providers Care Ict Help Desk Officer Name Role Phone Vin Flaquita Mccoy CNM Unavailable [phone] Unallocated, Noms Provider Primary Care Provi mart Encounter Details Date Type Department Care Team (Late st Contact Info) Description 12/27/2024 Results Follow-Up [facility] FNR OB [address] [place] [address] Abby Saul MA Social History [...] any clubs o r organizations such as yazidi groups, unions, fraternal or athletic groups, or [...] Recorded Patient Health Questionnaire-2 Score 0 12/07/2024 [facility] of Occupat ional Health [...] time in the past 12 m [facility], were you homeless or [...] PM EDT Routine [facility] FNR OB [address] [place] [address] Flaquita Banuelos, CNM [address] [place] [address] 02/22/2025 1:30 PM EDT Telemedicine [facility] FNR OB [address] [place] [address] Flaquita Banuelos CNM [address] [place], [place] [address] 04/19/2025 10:45 AM EDT Office Visit [facility] SWS FM [address] [place] [address] Awilda Crenshaw, DO [address] [place] [address] documented as of this encounter Visit Diagnoses Not on filedocumented in this encounter Care Teams Ict Help Desk Officer Relationship Specialty Start Date End Date Unallocated, Noms Dian, [facility] [place] [address] PCP - General 04/16/23 Flaquita Banuelos CNM [address] [place], [place] [address] Obstetrics and Gynecology 02/10/23 documented as of this encounter
--- OUTSIDE RECORDS SUMMARY | 2025-02-08 22:01 | XMS_ITS | Encounter Summary ---
Author Organization [facility] tem Address [id number] [address] [place] [address] Care Team Providers Care Ward Secretary Name Role Phone Flaquita Banuelos BAMBI-CNM Primary Care Provider [phone] Encounter Details Date Type Department Care Team (Late st Contact Info) Description 09/11/2024 Orders Only Maternal- Medicine at [facility] [address] [place] [address] Yudelka Randall, SABRINA with type 2 diabetes [...] BLOOD ORDERABLES Final Result Performing Organization Address [facility] Co de Phone Number MANUALLY TRANSCRIBED RESULTS * Protein creat ratio (08/30/2024) 08/30/2024 us Svetlana E Lavoy PA-C URINE ORDERABLES Final Resu lt Performing Organization Address [facility] Co de Phone Number SUNQUEST * Thyroid profile includes TSH FT4 (08/30/2024) 08/30/2024 us Svetlana E Lavoy PA-C LAB BLOOD ORDERABLES Final Result Performing Organization Address [facility] Phone Number MANUALLY TRANSCRIBED RESULTS documented in this encounter Visit Diagnoses Diagnosis with type 2 diabetes mellitus in second trimester documented in this encounter Additional Health Concerns Assessment Noted Time PHQ-9 Depression Total Score: 0 03/03/20 17 3:00 PM EDT documented as of this encounter Care Teams Ward Secretary Relationship Specialty Start Date End Date Flaquita Banuelos APRN-CNM [address] [place] [address] PCP - General Nurse Ceramics Test Engineer 04/15/18 documented as of this encounter
--- OUTSIDE RECORDS SUMMARY | 2025-02-08 22:02 | XMS_ITS | Encounter Summary ---
Author Organization [facility] Address [address] [place] [address] Care Team Providers Care Web Services Manager Name Role Phone Flaquita Banuelos CNM Unavailable Unallocated, Noms Provider Primary Care Provi mart Encounter Details Date Type Department Care Team (Late st Contact Info) Description 01/04/2025 Results Follow-Up [facility] [address] [place] [address] Flaquita Banuelos, CNM [address] [place], [place] [id number] Social History Tobacco Use Types Packs/Day Years [...] time in the past 12 m [facility], were you homeless or living in a [...] PM EDT Routine [facility] [address] [place] [address] Flaquita Banuelos CNM [address] [place] [address] 02/22/2025 1:30 PM EDT Telemedicine [facility] [address] [facility] [place] [phone] Flaquita Banuelos CNM [facility], [place] [phone] 04/19/2025 10:45 AM EDT Office Visit [facility] [address] [place] [address] Awilda Crenshaw, DO [address] [place] [address] documented as of this encounter Visit Diagnoses Not on filedocumented in this encounter Care Teams Web Services Manager Relationship Specialty Start Date End Date Unallocated, Noms MD Dian [address] [place] [address] PCP - General 04/16/23 Flaquita Banuelos CNM [address] [place] [id number] Obstetrics and Gynecology 02/10/23 documented as of this encounter
--- OUTSIDE RECORDS SUMMARY | 2025-02-08 22:02 | XMS_ITS | Encounter Summary ---
Author Organization [facility] Address [address] [place] [address] Care Team Providers Care Boat Garnisher Name Role Phone Flaquita Banuelos CNM Unavailable [phone] Unallocated, Noms Provider Primary Care Provi mart Awilda Crenshaw DO Unavailable [phone] Encounter Details Date Type Department Care Team (Late st Contact Info) Description 10/06/2024 Abstract [facility] [address] [place] [address] Awilda Crenshaw, DO [address] [facility] [address] [place] [address] Social History Tobacco Use Types Packs/Day Years [...] Recorded Patient Health Questionnaire-2 Score 0 10/09/2024 [facility] of Occupat ional Health - Occupational Stress [...] PM EDT Routine [facility] [address] [place] [phone] Flaquita Banuelos CNM [address] [place] [address] 02/22/2025 1:30 PM EDT Telemedicine [facility] [address] [place] [address] Flaquita Banuelos CNM [address] [place] [address] 04/19/2025 10:45 AM EDT Office Visit [facility] [address] [place] [address] Awilda Crenshaw DO [address] [place] [address] documented as of this encounter Visit Diagnoses Not on filedocumented in this encounter Care Teams Boat Garnisher Relationship Specialty Start Date End Date Unallocated, Noms MD Dian [address] [place] [address] PCP - General 04/16/23 Awilda Crenshaw DO [address] [place] [address] PCP - [employer] 06/16/23 Flaquita Banuelos CNM [address] [place] [address] Obstetrics and Gynecology 02/10/23 documented as of this encounter
--- OUTSIDE RECORDS SUMMARY | 2025-02-08 22:02 | XMS_ITS | Encounter Summary ---
Author Organization [facility] Address [address] [place] [address] Care Team Providers Care Drafting Layout Man Name Role Phone Flaquita Banuelos CNM Unavailable [phone] Unallocated, Noms Provider Primary Care Provi mart Encounter Details Date Type Department Care Team (Late st Contact Info) Description 02/06/2025 Bamboo flowsheet [facility] [address] [place] [phone] Flaquita Banuelos, CNM [address] [place], [place] [phone] Social History Tobacco Use Types Packs/Day Years [...] How often do you attend chur or adventist services? More than 4 times per year [...] Recorded Patient Health Questionnaire-2 Score 0 01/18/2025 [facility] of Occupat ional Health - [...] PM EDT Routine [facility] [address] [place] [phone] Flaquita Banuelos CNM [address] [facility] [place] [address] 02/22/2025 1:30 PM EDT Telemedicine [facility] [address] [facility] [place] [phone] Flaquita Banuelos CNM [facility]9 [place], [place] [phone] 04/19/2025 10:45 AM EDT Office Visit [facility] [address] [place] [address] Awilda Crenshaw, DO [address] [place] [address] documented as of this encounter Visit Diagnoses Not on filedocumented in this encounter Care Teams Drafting Layout Man Relationship Specialty Start Date End Date Unallocated, Noms MD Dian [address] [place] [address] PCP - General 04/16/23 Flaquita Banuelos CNM [address] [place] [phone] Obstetrics and Gynecology 02/10/23 documented as of this encounter
--- OUTSIDE RECORDS SUMMARY | 2025-02-08 22:02 | XMS_ITS | Encounter Summary ---
Author Organization [facility] Address [address] [place] [address] Care Team Providers Care Junior Estimator Name Role Phone Vin Flaquita Mccoy CNM Unavailable [phone] Unallocated, Noms Provider Primary Care Provi mart Encounter Details Date Type Department Care Team (Late st Contact Info) Description 01/26/2025 Clinisync Result Encounter [facility] External Department Unsolicited Nick Sam, DO [address] [place] [address] Social History Tobacco Use Types Packs/Day Years [...] Recorded Patient Health Questionnaire-2 Score 0 01/18/2025 [facility] of Occupat ional Health - Occupational [...] PM EDT Routine [facility] OB [address] [place] [address] Flaquita Banuelos, CNM [address] [place], [place] [phone] 02/22/2025 1:30 PM EDT Telemedicine [facility] [address] [facility] [place] [phone] Flaquita Banuelos, CN [address] [place], [place] [phone] 04/19/2025 10:45 AM EDT Office Visit [facility] [address] [place] [phone] Awilda Crenshaw, DO [address] [place] [address] documented as of this encounter Procedures Procedure Name Priority Date/Time Associated Diagnosis Comments US OB BPP W NON-STRESS 01/26/2025 8:30 AM EDT documented in this encounter Results * US OB BPP W NON-STRESS (01/26/2025 8:30 AM EDT) Anatomical Region Laterality Modality Other 01/26/2025 8:30 AM EDT Narrative 01/26/2025 8:32 AM EDT The [address] [address] Ultrasound Report Signed Patient: REGINALD REYES MR#: [id number] : 1995 Acct:[id number] Age/Sex: 29 / F ADM Date: 01/26/25 Loc: US Attending Dr: Nick Sam D.O. Ordering Physician: Nick Sam D.O. Date of Service: 01/26/25 Procedure(s): US OB BPP w non-stress Accession Number(s): [id number] cc: Nick Sam D.O.; Physician,Non-Staff M.Vianey The [address] [address] Patient Name: REGINALD REYES MRN: [id number] date: 1995 Sex: F Assigned Patient Location: [facility] Current Patient Location: Accession/Order Number: [id number] Exam Date: 01/26/2025 08:28 Report Date: 01/26/2025 [...] Mcleod M.D. 01/26/2025 8:30 AM Dictation Location: [place] [address] Electronically authenticated by: [id number] Y Date: 01/26/2025 08:30 Dictated By: Elle Mcleod M.D. Signed By: 01/26/25 0832 DD/ TD/TT: Customs Manager: Procedure Note Radiology, Radiologist, - 01/26/2025 [place] [address] Ultrasound Report Signed Patient: REGINALD REYES MMR#: [id number] : 1995Acct:[id number] Age/Sex: 29 / FADM Date: 01/26/25 Loc: US Attending Dr: Nick Sam D.O. Ordering Physician: Nick Sam D.O. Date of Service: 01/26/25 Procedure(s): US OB BPP w non-stress Accession Number(s): [id number] cc: Nick Sam D.O.; Physician,Non-Staff [place] [address] Patient Name: REGINALD REYES MRN: [facility]:[id number] date: 1995 Sex: F Assigned Patient Location: [facility] Current Patient Location: Accession/Order Number: [id number] Exam Date: 01/26/2025 08:28 Report Date: 01/26/2025 [...] Mcleod M.D. 01/26/2025 8:30 AM Dictation Location: [place] [address] Electronically authenticated by: [id number] Y Date: 508:30 Dictated By: Elle Mcleod M.D. Signed By:01/26/25 0832 DD/ TD/TT: Customs Manager: Nick Sam DO [facility] Final Result documented in this encounter Visit Diagnoses Not on filedocumented in this encounter Care Teams Junior Estimator Relationship Specialty Start Date End Date Unallocated, Noms Provider, [address] [place] [address] PCP - General 04/16/23 Flaquita Banuelos CNM [address] [place], [place] [phone] Obstetrics and Gynecology 02/10/23 documented as of this encounter
--- OUTSIDE RECORDS SUMMARY | 2025-02-08 22:02 | XMS_ITS | Clinical Summary ---
Author Organization [facility] Address [address] [place] [address] Care Team Providers Care Marketing And Development Coordinator Name Role Phone Flaquita Banuelos CNM Unavailable [phone] Unallocated, [facility] Provider MD Primary Care Provi mart [...] type 2 diabetes mellitus in second trimester ([facility]) 1-2 units breakfast, 5-12 units lunch/dinner (max daily 50 units) 15 mL 3 5 Active ferrous sulfate (Fe Tabs) 325 (65 Fe) MG EC tabletIndicatio ns:Anemia during in third trimester ([facility]) Take 1 tablet (325 mg) by mouth in the morning and 1 tablet (325 mg) before bedtime. Take before meals. Do not crush, chew, or split. 60 tablet 11 5 12/29/19 26 Active docusate sodium (Colace) 100 MG capsuleIndicati ons:Anemia during in third trimester ([facility]) Take 1 capsule (100 mg) by mouth [...] 2 diabet es mellitus in third trimester ([facility]) 09/01/2024 Assessment & Plan (01/18/2025 10:17 AM [...] they have any problems or questions. Reginald eRyes control is stable overall. , Instructions given [...] Encounters Date Type Department Care Team Description 02/07/2025 Clinisync Result Encounter NOMS External Department Unsolicited Flaquita Banuelos CNM 02/06/2025 4:30 PM EDT Routine [facility] FNR OB [address] [place] [phone] Flaquita Banuelos CNM Type 2 diabetes mellitus without complication, without long-term current use of insulin ([facility]) 02/06/2025 Bamboo flowsheet [facility] OB [address] [place] [address] Flaquita Banuelos CNM 02/02/2025 Abstract [facility] [address] [place] [address] Awilda Crenshaw, 02/02/2025 Clinisync Result Encounter NOMS External Department Unsolicited Nick Sam, 01/29/2025 4:30 PM EDT Routine [facility] FNR OB [address] [facility] [place] [address] Flaquita Banuelos CNM with type 2 diabetes mellitus in third trimester ([facility]) (Primary Dx); Type 2 diabetes mellitus treated with insulin (HCC); Encounter for care of first , third trimester ([facility]) 01/29/2025 Bamboo flowsheet NOMS R OB [address] [facility] [place] [address] Flaquita Banuelos CNM 01/26/2025 Clinisync Result Encounter NOMS External Department Unsolicited Nick Sam, 01/22/2025 4:30 PM EDT Routine [facility]S R OB [address] [place] [address] Flaquita Banuelos CNM screening for streptococcus B ([facility]) (Primary Dx); with type 2 diabetes mellitus in third trimester ([facility]); Type 2 diabetes mellitus treated with insulin (HCC) 01/22/2025 Bamboo flowsheet [facility]OMS R OB [address] [place] [address] Flaquita Banuelos CNM 01/19/2025 Clinisync Result Encounter NOMS External Department Unsolicited Nick Sam, 01/18/2025 8:30 AM EDT Office Visit [facility] [address] [place] [address] Awilda Crenshaw DO with type 2 diabetes mellitus in third trimester ([facility]) 01/18/2025 Travel 01/15/2025 4:30 PM EDT Routine [facility] R OB [address] [place] [address] Flaquita Banuelos CNM Type 2 diabetes mellitus without complication, without long-term current use of insulin (HCC) (Primary Dx); with type 2 diabetes mellitus in third trimester ([facility]) 01/15/2025 Bamboo flowsheet NOMS R OB [address] [place] [phone] Flaquita Banuelos CNM 01/12/2025 Telephone [facility] OB [address] [place] [address] [place] [address] Estelle Hughes LPN 01/12/2025 Clinisync Result Encounter NOMS External Department Unsolicited FlacoMallorie bellay, DO 01/12/2025 Clinisync Result Encounter NOMS External Department Unsolicited FlacoMallorie bellay, DO 01/09/2025 4:00 PM EDT Routine [facility] FNR OB [address] [facility] [place] [address] Flaquita Banuelos, CATHIEM Type 2 diabetes mellitus treated with insulin (HCC) (Primary Dx); Encounter for care of first , third trimester ([facility]) 01/09/2025 Bamboo flowsheet [facility]NR OB [address] [facility] [place] [address] Flaquita Banuelos CNM 01/05/2025 Clinisync Result Encounter NOMS External Department Unsolicited Nick Sam, DO 01/05/2025 Orders Only [facility] FNR OB [address] [facility] [place] [phone] Flaquita Banuelos, SADIA with type 2 diabetes mellitus in third trimester [facility] 01/04/2025 Results Follow-Up [facility]NR OB [address] [facility] [place] [address] Flaquita Banuelos CNM 01/01/2025 4:30 PM EDT Routine [facility] FNR OB [address] [facility] [place] [address] Flaquita Banuelos, CNM Screening for iron deficiency anemia (Primary Dx); Dysuria 01/01/2025 Bamboo flowsheet [facility] OB [address] [facility] [place] [address] Flaquita Banuelos CNM 01/01/2025 Travel 12/29/2024 Clinisync Result Encounter NOMS External Department Unsolicited Flaco, Nick, DO 12/28/2024 Refill [facility]NR OB [address] [facility] [place] [address] Abby Saul MA Anemia during in third trimester ([facility]) 12/27/2024 Results Follow-Up [facility]NR OB [address] [facility] [place] [address] Abby Saul MA 12/27/2024 Refill [facility] OB [facility] [place] [address] Abby Saul MA Anemia during in third trimester ([facility]) 12/26/2024 4:00 PM EDT Routine [facility]NR OB [address] [facility] [place] [address] Flaquita Banuelos, SADIA with type 2 diabetes mellitus in third trimester ([facility]) (Primary Dx); Screening for iron deficiency anemia; Type 2 diabetes mellitus treated with insulin ([facility]) 12/26/2024 Bamboo flowsheet [facility]NR OB [address] [facility] [place] [address] Flaquita Banuelos CNM 12/25/2024 10:20 AM EDT Consult [facility] [address] [facility] [place] [address] Nick Sam, with type 2 diabetes mellitus in third trimester ([facility]) 12/25/2024 Travel 12/25/2024 Bamboo flowsheet [facility] [address] [facility] [place] [address] Nick Sam, 12/20/2024 Results Follow-Up [facility]NR OB [address] [facility] [place] [address] Flaquita Banuelos CNM 12/20/2024 Orders Only [facility] FNR OB [address] [facility] [place] [address] Flaquita Banuelos, SADIA with type 2 diabetes mellitus in third trimester ([facility]) 12/11/2024 4:30 PM EDT Ancillary Procedure [facility] FNR ULTRASOUND [address] [facility] [address] [place] [address] related condition in third trimester ([facility]) 12/11/2024 4:00 PM EDT Routine [facility] FNR OB [address] [place] [address] Flaquita Banuelos CNM with type 2 diabetes mellitus in third trimester ([facility]) 12/11/2024 Bamboo flowsheet [facility] FNR OB [address] [place] [address] Flaquita Banuelos CNM 12/11/2024 Travel 12/07/2024 8:15 AM EDT Office Visit [facility] [address] [place] [address] Awilda Crenshaw DO with type 2 diabetes mellitus in third trimester ([facility]) (Primary Dx); with type 2 diabetes mellitus in second trimester ([facility]) 12/07/2024 Abstract [facility] [address] [place] [address] Unallocated, Danay Biggs MD 12/07/2024 Travel 12/04/2024 Travel 11/30/2024 Abstract [facility] [address] [place] [address] Awilda Crenshaw DO 11/30/2024 Travel 11/29/2024 Telephone [facility] [address] [place] [address] Bonny Garcia LPN BG readings 11/15/2024 4:30 PM EDT Routine [facility] FNR OB [address] [place] [phone] Flaquita Banuelos CNM Encounter for care of first , second trimester ([facility]) (Primary Dx); related condition in third trimester ([facility]); Gestational diabetes mellitus (GDM) requiring insulin ([facility]) 11/15/2024 Axel flowsheet [facility] OB [address] [place] [address] Flaquita Banuelos CNM 11/14/2024 Travel 11/10/2024 Abstract [facility] [address] [place] [id number] [place] [address] Awilda Crenshaw, from Last 3 Months Immunizations Immunization Administration [...] often do you attend chur ch or scientologist services? More than 4 times per year [...] Recorded Patient Health Questionnaire-2 Score 0 01/18/2025 [facility] [employer] [place] of Occupat ional Health - Occupational Stress [...] any time in the past 12 m [facility], were you homeless or [...] PM EDT Routine [facility] FNR OB [address] [place] [address] Flaquita Banuelos, CN [address] [place] [address] 02/22/2025 1:30 PM EDT Telemedicine [facility] F[facility] OB [address] [place] [address] Flaquita Banuelos, CNM [address] [place] [address] 04/19/2025 10:45 AM EDT Office Visit [facility] FM [address] [place] [phone] Awilda Crenshaw DO [address] [place] [address] Health Maintenance Due Date Last Done Comments Diabetes: Retinopathy Screening 2005 Influenza Vaccine (Season Ended) 2025 Diabetes: Hemoglobin A1C 04/20/2025 025, 10/09/2024, 07/10/2024, Additional history exists Diabetes: Urine Protein Screening 08/30/2025 025 Procedures Procedure Name Priority Date/Time Associated Diagnosis Comments US OB GROWTH 02/07/2025 8:14 AM EDT US OB BPP W NON-STRESS 02/02/2025 8:17 AM EDT US OB BPP W NON-STRESS 01/26/2025 8:30 AM EDT STREPTOCCOUS, GROUP B CULTURE Routine 01/22/2025 5:00 PM EDT screening for streptococcus B ([facility]) US OB BPP W NON-STRESS 01/19/2025 7:37 AM EDT POCT GLYCOSYLATED HEMOGLOBIN (HGB A1C) Routine 01/18/2025 8:38 AM EDT with type 2 diabetes mellitus in third trimester ([facility]) US OB BPP W NON-STRESS 01/12/2025 12:00 [...] type 2 diabetes mellitus in third trimester ([facility]) US OB FOLLOW UP TRANSABDOMINAL APPROACH Routine 12/11/2024 4:54 PM EDT related condition in third trimester ([facility]) from Last 3 Months Results * US OB GROWTH (02/07/2025 8:14 AM EDT) Only the most recent of2 resultswithin the time period is included. Anatomical Region Laterality Modality Other 02/07/2025 8:14 AM EDT Narrative 02/07/2025 8:16 [place] [address] Ultrasound Report Signed Patient: REGINALD REYES MR#: [id number] : 1995 Acct:[id number] Age/Sex: 29 / F ADM Date: 02/07/25 Loc: US Attending Dr: FLAQUITA BANUELOS APRN, CNM Ordering Physician: FLAQUITA BANUELOS APRN, CNM Date of Service: 02/07/25 Procedure(s): US OB growth Accession Number(s): [id number] cc: FLAQUITA BANUELOS APRN, CNM; Physician,Non-Staff M.D. The [place] [address] Patient Name: REGINALD REYES MRN: [id number] date: 1995 Sex: F Assigned Patient Location: Current Patient Location: Accession/Order Number: [id number] Exam Date: 02/07/2025 08:09 Report Date: 02/07/2025 08:14 At the request of: FLAQUITA BANUELOS APRN, CNM Procedure: US OB growth [...] Mcleod M.D. 02/07/2025 8:14 AM Dictation Location: [place] [address] Electronically authenticated by: [id number] Y Date: 02/07/2025 08:14 Dictated By: Elle Mcleod M.D. Signed By: 02/07/2516 DD/ 3 TD/TT: Clay Press Operator: Procedure Note Radiology, Radiologist, MD - 02/07/2025 [place] [address] Ultrasound Report Signed Patient: REGINALD REYES MMR#: [id number] : 1995Acct:[id number] Age/Sex: 29 / FADM Date: 02/07/25 Loc: US Attending Dr: FLAQUITA BANUELOS APRN, CNM Ordering Physician: FLAQUITA BANUELOS APRN, CNM Date of Service: 02/07/25 Procedure(s): US OB growth Accession Number(s): [id number] cc: FLAQUITA BANUELOS APRN, CNM; Physician,Non-Staff MCaitlin The [place] [address] Patient Name: REGINALD REYES MRN: [id number] date: 1995 Sex: F Assigned Patient Location: US Current Patient Location: US Accession/Order Number: [id number] Exam Date: 02/07/2025 08:09 Report Date: 02/07/2025 08:14 At the request of: FLAQUITA BANUELOS APRN, CNM Procedure: US OB growth [...] Mcleod M.D. 02/07/2025 8:14 AM Dictation Location: [place] [address] Electronically authenticated by: [id number] Y Date: 508:14 Dictated By: Elle Mcleod M.D. Signed By:02/07/2516 DD/ TD/TT: Clay Press Operator: Flaquita BRAND [facility] Final Resu lt * US OB BPP W NON-STRESS (02/02/2025 8:17 AM EDT) Only the most recent of6 resultswithin the time period is included. Anatomical Region Laterality Modality Other 02/02/2025 8:17 AM EDT Narrative 02/02/2025 8:20 AM EDT [place] [id number] Ultrasound Report Signed Patient: REGINALD REYES MR#: [id number] : 1995 Acct:[id number] Age/Sex: 29 / F ADM Date: 02/02/25 Loc: US Attending Dr: Nick Sam D.O. Ordering Physician: Nick Sam D.O. Date of Service: 02/02/25 Procedure(s): US OB BPP w non-stress Accession Number(s): [id number] cc: Nick Sam D.O.; Physician,Non-Staff Magaly The [place] [id number] Patient Name: REGINALD REYES MRN: [id number] date: 1995 Sex: F Assigned Patient Location: [facility] Current Patient Location: Accession/Order Number: [id number] Exam Date: 02/02/2025 08:16 Report Date: 02/02/2025 [...] Mcleod M.D. 02/02/2025 8:17 AM Dictation Location: [place] [address] Electronically authenticated by: [id number] Y Date: 02/02/2025 08:17 Dictated By: Elle Mcleod M.D. Signed By: 02/02/25819 DD/ 6 TD/TT: Clay Press Operator: Procedure Note Radiology, Radiologist, - 02/02/2025 [place] [address] Ultrasound Report Signed Patient: REGINALD REYES MMR#: [id number] : 1995Acct:[id number] Age/Sex: 29 / FADM Date: 02/02/25 Loc: US Attending Dr: Nick Sam D.O. Ordering Physician: Nick Sam D.O. Date of Service: 02/02/25 Procedure(s): US OB BPP w non-stress Accession Number(s): [id number] cc: Nick Sam D.O.; Physician,Non-Staff [place] [address] Patient Name: REGINALD REYES MRN: [id number] date: 1995 Sex: F Assigned Patient Location: [facility] Current Patient Location: Accession/Order Number: [id number] Exam Date: 02/02/2025 08:16 Report Date: 02/02/2025 [...] Mcleod M.D. 02/02/2025 8:17 AM Dictation Location: [place] [address] Electronically authenticated by: [id number] Y Date: 508:17 Dictated By: Elle Mcleod M.D. Signed By:02/02/25819 DD/ 6 TD/TT: Clay Press Operator: Nick Sam DO [facility] Final Result * STREPTOCCOUS, GROUP B CULTURE (01/22/2025 5:00 PM EDT) MICRO NUMBER [id number] [facility] SPECIMEN QUALITY Adequate [facility] SOURCE VAGINAL/ANOR [...] Information Site ID: QPT Name: [facility] Address: [address] [place] [address], [address] [place] [address] Director: Devendra Aguilar MD Flaquita Banuelos CNM LAB BODY FLUIDS AND STOOLS O RDERABLES Final Result [facility] * POCT glycosylated hemoglobin (Hb A1C) docked device (01/18/2025 8:38 AM EDT) Pathologist [facility] Hemoglobin A1C 6.1 Blood Venous blood specimen / Unknown 01/18/2025 8:38 AM EDT Awilda Crenshaw DO POINT OF CARE TEST ENTER/E DIT ORDERABLES Final Result * Urine culture (01/01/2025 5:00 PM EDT) MICRO NUMBER [id number] [facility] SPECIMEN QUALITY Adequate [facility] SOURCE: ([facility]) [...] Performing Organization Information Site ID: QPT Name: [facility] Address: [address] , [address] [place] [address] Director: Devendra Aguilar MD us Flaquita Banuelos CNM LAB MICROBIOLOGY - GENERAL O RDERABLES Final Result Performing Organization Address [facility]/ZIP Co de Phone Number [facility] * (ABNORMAL) CBC (12/26/2024 4:19 PM EDT) Pathologist [facility] WHITE BLOOD CELL COUNT 10.1 3.8 - [...] Performing Organization Information Site ID: QPT Name: [facility] Address: [address]ire[address] , [address] [place] [address] Director: Devendra Aguilar MD us Flaquita Banuelos CNM LAB BLOOD ORDERABLES Final R esult Performing Organization Address City/[facility]/ZIP Co de Phone Number [facility] * POCT urinalysis dipstick manually resulted [...] II, MD, PHD at 12-Dec-2024 07:13:14 PM [facility] Procedure Note Yuli Mccarthy MD - [...] signed by YULI MCCARTHY II, MD, PHD [id number] 07:13:14 PM [facility] us Flaquita Banuelos CNM IMG OB US PROCEDURES Final R esult from Last 3 Months Insurance BCBS Care Teams Marketing And Development Coordinator Relationship Specialty Start Date End Date Unallocated, Noms Provider, [address] [place] [address] PCP - General 04/16/23 Flaquita Banuelos CNM [address] [place] [address] Obstetrics and Gynecology 02/10/23
--- OUTSIDE RECORDS SUMMARY | 2025-02-08 22:02 | XMS_ITS | Encounter Summary ---
Author Organization [facility] Address [address] [place] [address] Care Team Providers Care Talent Partner Name Role Phone Vin Flaquita Mccoy CNM Unavailable [phone] Unallocated, Noms Provider Primary Care Provi mart Encounter Details Date Type Department Care Team (Late st Contact Info) Description 02/02/2025 Clinisync Result Encounter NOMS External Department Unsolicited Nick Sam, DO [address] [facility] [address] [place] [address] Social History Tobacco Use Types Packs/Day Years [...] Patient Health Questionnaire-2 Score 0 01/18/2025 [facility]at ional [facility] - [...] the past 12 m [facility], were you homeless or living in a [...] PM EDT Routine [facility] FNR OB [address] [place] [address] Flaquita Banuelos, CNM [address] [place], [place] [id number] 02/22/2025 1:30 PM EDT Telemedicine [facility] FNR OB [address] [place] [address] Flaquita Banuelos, CN [address] [place], [place] [address] 04/19/2025 10:45 AM EDT Office Visit [facility] [address] [place] [address] Awilda Crenshaw, DO [address] [place] [address] documented as of this encounter Procedures Procedure Name Priority Date/Time Associated Diagnosis Comments US OB BPP W NON-STRESS 02/02/2025 8:17 AM EDT documented in this encounter Results * US OB BPP W NON-STRESS (02/02/2025 8:17 AM EDT) Anatomical Region Laterality Modality Other 02/02/2025 8:17 AM EDT Narrative 02/02/2025 8:20 AM EDT The [address] [address] Ultrasound Report Signed Patient: REGINALD REYES MR#: [id number] : 1995 Acct:[id number] Age/Sex: 29 / F ADM Date: 02/02/25 Loc: US Attending Dr: Nick Sam D.O. Ordering Physician: Nick Sam D.O. Date of Service: 02/02/25 Procedure(s): US OB BPP w non-stress Accession Number(s): [id number] cc: Nick Sam D.O.; Physician,Non-Staff M.Vianey The [address] [address] Patient Name: REGINALD REYES MRN: [id number] date: 1995 Sex: F [facility] Current Patient Location: Accession/Order Number: [id number] Exam Date: 02/02/2025 08:16 Report Date: 02/02/2025 [...] Mcleod M.D. 02/02/2025 8:17 AM Dictation Location: [place] [address] Electronically authenticated by: [id number] Y Date: 02/02/2025 08:17 Dictated By: Elle Mcleod M.D. Signed By: 02/02/25819 DD/ 6 TD/TT: Drilling Plant Operator: Procedure Note Radiology, Radiologist, MD - 02/02/2025 [place] [address] Ultrasound Report Signed Patient: REGINALD REYES MMR#: [id number] : 1995Acct:[id number] Age/Sex: 29 / FADM Date: 02/02/25 Loc: US Attending Dr: Nick Sam D.O. Ordering Physician: Nick Sam D.O. Date of Service: 02/02/25 Procedure(s): US OB BPP w non-stress Accession Number(s): [id number] cc: Nick Sam D.O.; Physician,Non-Staff Magaly [address] [address] Patient Name: REGINALD REYES MRN: [id number] date: 1995 Sex: F [facility] Current Patient Location: Accession/Order Number: [id number] Exam Date: 02/02/2025 08:16 Report Date: 02/02/2025 08:17 At the request of: NCIK SAM DO Procedure: US OB BPP w [...] Mcleod M.D. 02/02/2025 8:17 AM Dictation Location: [place] [address] Electronically authenticated by: [id number] Y Date: 508:17 Dictated By: Elle Mcleod M.D. Signed By:02/02/25819 DD/ 6 TD/TT: Drilling Plant Operator: Nick Sam DO [facility] Final Result documented in this encounter Visit Diagnoses Not on filedocumented in this encounter Care Teams Talent Partner Relationship Specialty Start Date End Date Unallocated, Noms Provider, [address] [place] [address] PCP - General 04/16/23 Flaquita Banuelos CNM [address] [place], [place] [id number] Obstetrics and Gynecology 02/10/23 documented as of this encounter
--- OUTSIDE RECORDS SUMMARY | 2025-02-08 22:02 | XMS_ITS | CCD ---
Author Organization [facility] Care Team Providers Care Inductor Tester Name Role Phone Unavailable Primary Care Provider Unavailabl e FLORO, DARÍO Referring Unavailable Floro CNM, Darío L Unavailable Unallocated , Noms Provider Primary Care Provi mart Awilda Delatorre DO Unavailable [phone] Unallocated , Noms Provider Primary Care Provi mart Floro MAID HOUSEKEEPER-CNM, Darío Primary Care Provider [phone] SVETLANA JACK Attending Unavailable FLORO, DARÍO Referring [...] Attending Unavailable PETZNICK, AWILDA M Referring Unavailable FLORO, DARÍO Mccoy Attending Unavailable FLORO, DARÍO Mccoy Attending Unavailable Medications Current Medications Medication Drug Class(es) [...] complication, without long-term current use of insulin ([facility]) INJECT 15 UNITS AM 25 UNITS PM 15 mL 3 05/29/2024 09/01/2024 Discontinued Start: 02-28-2024 insulin NPH, I sophane, (NovoLIN N FlexPen) 100 UNIT/ML injection Indications: Type 2 diabetes mellitus without complication, without long-term current use of insulin ([facility]/HCC) 15 units in the am and 25 [...] type 2 diabetes mellitus in second trimester ([facility]) 1-2 units breakfast, 5-12 units lunch/dinner (max [...] Value Interpretation Reference Range Facility US OB GROWTHon 02-07-[address] [address] Ultrasound Report Signed Patient: REGINALD REYES MR#: [id number] : 1995 Acct:[id number] Age/Sex: 29 / F ADM Date: 02/07/25 Loc: US Attending Dr: DARÍO BANUELOS APRN, CNM Ordering Physician: DARÍO BANUELOS APRN, CNM Date of Service: 02/07/25 Procedure(s): US OB growth Accession Number(s): [id number] cc: DARÍO BANUELOS APRN, CNM; Physician,Non-Staff M.D. The [place] [id number] Patient Name: REGINALD REYES MRN: [id number]:[id number] date: 1995 Sex: F Assigned Patient Location: US Current Patient Location: US Accession/Order Number: [id number] Exam Date: 02/07/2025 08:09 Report Date: 02/07/2025 [...] Mcleod M.D. 02/07/2025 8:14 AM Dictation Location: [place] [address] Electronically authenticated by: [id number] Y Date: 02/07/2025 08:14 Dictated By: Elle Mcleod M.D. Signed By: 02/07/25815 DD/ 3 TD/TT: Cost Recovery Technician: [facility] Radiology, Radiologist, MD - 02/07/2025 [place] [address] Ultrasound Report Signed Patient: REGINALD REYES MR#: [id number] : 1995 Acct:[id number] Age/Sex: 29 / F ADM Date: 02/07/25 Loc: US Attending Dr: DARÍO BANUELOS APRN, CNM Ordering Physician: DARÍO BANUELOS APRN, CNM Date of Service: 02/07/25 Procedure(s): US OB growth Accession Number(s): [id number] cc: DARÍO BANUELOS APRN, CNM; Physician,Non-Staff M.Vianey [facility] [place] [address] Patient Name: REGINALD REYES MRN: [facility]:[id number] date: 1995 Sex: F Assigned Patient Location: Current Patient Location: US Accession/Order Number: [id number] Exam Date: 02/07/2025 08:09 Report Date: 02/07/2025 [...] Mcleod M.D. 02/07/2025 8:14 AM Dictation Location: [place] [address] Electronically authenticated by: [id number] Y Date: 02/07/2025 08:14 Dictated By: Elle Mcleod M.D. Signed By: 02/07/25815 DD/ 3 TD/TT: Cost Recovery Technician: [facility] Radiology Study observation (narrative) [facility] US OB GROWTHOrdered By: Angeles hutchisonogdevan Radiology on 02-07-2025 [facility] Work Phone: US OB BPP W NON-STRESS on 02-02-2025 [place] [address] Ultrasound Report Signed Patient: REGINALD REYES MR#: [id number] : 1995 Acct:[id number] Age/Sex: 29 / F ADM Date: 02/02/25 Loc: US Attending Dr: Henry Sam D.O. Ordering Physician: Henry Sam D.O. Date of Service: 02/02/25 Procedure(s): US OB BPP w non-stress Accession Number(s): [id number] cc: Henry Sam D.O.; Physician,Non-Staff Magaly [facility] [place] [address] Patient Name: REGINALD REYES MRN: [id number] date: 1995 Sex: F Assigned Patient Location: [facility] Current Patient Location: Accession/Order Number: [id number] Exam Date: 02/02/2025 08:16 Report Date: 02/02/2025 [...] Mcleod M.D. 02/02/2025 8:17 AM Dictation Location: [place] [address] Electronically authenticated by: [id number] Y Date: 02/02/2025 08:17 Dictated By: Elle Mcleod M.D. Signed By: 02/02/25819 DD/ 6 TD/TT: Cost Recovery Technician: [facility] Radiology, Radiologist, MD - 02/02/2025 [place] [address] Ultrasound Report Signed Patient: REGINALD REYES MR#: [id number] : 1995 Acct:[id number] Age/Sex: 29 / F ADM Date: 02/02/25 Loc: US Attending Dr: Henry Sam D.O. Ordering Physician: Henry Sam D.O. Date of Service: 02/02/25 Procedure(s): US OB BPP w non-stress Accession Number(s): [id number] cc: Henry Sam D.O.; Physician,Non-Staff Magaly [address] [address] Patient Name: REGINALD REYES MRN: [id number] date: 1995 Sex: F Assigned Patient Location: [facility] Current Patient Location: Accession/Order Number: [id number] Exam Date: 02/02/2025 08:16 Report Date: 02/02/2025 [...] Mcleod M.D. 02/02/2025 8:17 AM Dictation Location: [place] [address] Electronically authenticated by: [id number] Y Date: 02/02/2025 08:17 Dictated By: Elle Mcleod M.D. Signed By: 02/02/25819 DD/ 6 TD/TT: Cost Recovery Technician: [facility] Radiology Study observation (narrative) [facility] US OB BPP W NON-STRESS Ordered By: Radiologist Radiology on 02-02-2025 [facility] Work Phone: US OB BPP W NON-STRESS on 01-26-[address] [address] Ultrasound Report Signed Patient: REGINALD REYES MR#: [id number] : 1995 Acct:[id number] Age/Sex: 29 / F ADM Date: 01/26/25 Loc: US Attending Dr: Henry Sam D.O. Ordering Physician: Henry Sam D.O. Date of Service: 01/26/25 Procedure(s): US OB BPP w non-stress Accession Number(s): [id number] cc: Henry Sam D.O.; Physician,Non-Staff Mag[place] [address] Patient Name: REGINALD REYES MRN: [facility]:[id number] date: 1995 Sex: F Assigned Patient Location: [facility] Current Patient Location: Accession/Order Number: [id number] Exam Date: 01/26/2025 08:28 Report Date: 01/26/2025 [...] greater than 2 cm [Y] 2/2 LD: 14.0 cm. This is normal. Total score: 8/8 US/US OB BPP w non-stress IMPRESSION: NORMAL BIOPHYSICAL PROFILE . Impression dictated by: Elle Mcleod M.D. 01/26/2025 8:30 AM Dictation Location: [place] [address] Electronically authenticated by: [id number] Y Date: 01/26/2025 08:30 Dictated By: Elle Mcleod M.D. Signed By: 01/26/2532 DD/ 9 TD/TT: Cost Recovery Technician: [facility] Radiology, Radiologist, MD - 01/26/2025 [place] [address] Ultrasound Report Signed Patient: REGINALD REYES MR#: [id number] : 1995 Acct:[id number] Age/Sex: 29 / F ADM Date: 01/26/25 Loc: US Attending Dr: Henry Sam D.O. Ordering Physician: Henry Sam D.O. Date of Service: 01/26/25 Procedure(s): US OB BPP w non-stress Accession Number(s): [id number] cc: Henry Sam D.O.; Physician,Non-Staff Magaly [facility] [place] [address] Patient Name: REGINALD REYES MRN: [facility]:[id number] date: 1995 Sex: F Assigned Patient Location: [facility] Current Patient Location: Accession/Order Number: [id number] Exam Date: 01/26/2025 08:28 Report Date: 01/26/2025 [...] Mcleod M.D. 01/26/2025 8:30 AM Dictation Location: [place] [address] Electronically authenticated by: [id number] Y Date: 01/26/2025 08:30 Dictated By: Elle Mcleod M.D. Signed By: 01/26/25831 DD/ 9 TD/TT: Cost Recovery Technician: [facility] Radiology Study observation (narrative) [facility] US OB BPP W NON-STRESS Ordered By: Radiologist Radiology on 01-26-2025 [facility] Work Phone: US OB BPP W NON-STRESS on 01-19-2025 [place] [address] Ultrasound Report Signed Patient: REGINALD REYES MR#: [id number] : 1995 Acct:[id number] Age/Sex: 29 / F ADM Date: 01/19/25 Loc: [facility] [address]: Henry Sam D.O. Ordering Physician: Henry Sam D.O. Date of Service: 01/19/25 Procedure(s): US OB BPP w non-stress Accession Number(s): [id number] cc: Henry Sam D.O.; Physician,Non-Staff Magaly [place] [id number] Patient Name: REGINALD REYES MRN: [id number] date: 1995 Sex: F Assigned Patient Location: [facility] Current Patient Location: [facility] Accession/Order Number: [id number] Exam Date: 01/19/2025 07:35 Report Date: 01/19/2025 [...] Roberson M.D. 01/19/2025 7:37 AM Dictation Location: [place] [address] Electronically authenticated by: [id number] Y Date: 01/19/2025 07:37 Dictated By: Zak Roberson M.D. Signed By: 01/19/25 0739 DD/ 0737 TD/TT: Cost Recovery Technician: [facility] Radiology, Radiologist, MD - 01/19/2025 [place] [address] Ultrasound Report Signed Patient: REGINALD REYES MR#: [id number] : 1995 Acct:[id number] Age/Sex: 29 / F ADM Date: 01/19/25 Loc: [place] [address]- Attending Dr: Henry Sam D.O. Ordering Physician: Henry Sam D.O. Date of Service: 01/19/25 Procedure(s): US OB BPP w non-stress Accession Number(s): [id number] cc: Henry Sam D.O.; Physician,Non-Staff Magaly The [address] [address] Patient Name: REGINALD REYES MRN: [facility]:[id number] date: 1995 Sex: F Assigned Patient Location: [facility] Current Patient Location: [facility] Accession/Order Number: [id number] Exam Date: 01/19/2025 07:35 Report Date: 01/19/2025 [...] Roberson M.D. 01/19/2025 7:37 AM Dictation Location: [employer] Electronically authenticated by: [id number] Y Date: 01/19/2025 07:37 Dictated By: Zak Roberson M.D. Signed By: 01/19/25 0739 DD/ 0737 TD/TT: Cost Recovery Technician: [facility] Radiology Study observation (narrative) [facility] US OB BPP W NON-STRESS Ordered By: Radiologist Radiology on 01-19-2025 [facility] Work Phone: HbA1c (Bld) [Mass fraction]o n 01-18-2025 Interpretation and review of laboratory results Normal [facility] - Hematology and Cell countson 01-18-2025 HbA1c (Bld) [Mass fraction] 6.1 % [facility] No Panel InformationOrdered By: Radiologist Radiology on 01-12-2025 [facility] Work Phone: No Panel Informationon 01-12 Radiology Study observation (narrative) [facility] US OB BPP W NON-STRESS on 01-12-[address] [address] Ultrasound Report Signed Patient: REGINALD REYES MR#: [id number] : 1995 Acct:[id number] Age/Sex: 29 / F ADM Date: 01/12/25 Loc: US Attending Dr: Henry Sam D.O. Ordering Physician: Henry Sam D.O. Date of Service: 01/12/25 Procedure(s): US OB BPP w non-stress Accession Number(s): [id number] cc: Henry Sam D.O.; Physician,Non-Staff Magaly [address] [address] Patient Name: REGINALD REYES MRN: [facility]:[id number] date: 1995 Sex: F Assigned Patient Location: [facility] Current Patient Location: [facility] Accession/Order Number: [id number] Exam Date: 01/12/2025 11:54 Report Date: 01/12/2025 [...] Mcleod M.D. 01/12/2025 12:00 PM Dictation Location: [place] [address] Electronically authenticated by: [id number] Y Date: 01/12/2025 12:00 Dictated By: Elle Mcleod M.D. Signed By: 01/12/25 1203 DD/ 1200 TD/TT: Cost Recovery Technician: [facility] Radiology, Radiologist, MD - 01/12/2025 [place] [address] Ultrasound Report Signed Patient: REGINALD REYES MR#: [id number] : 1995 Acct:[id number] Age/Sex: 29 / F ADM Date: 01/12/25 Loc: US Attending Dr: Henry Sam D.O. Ordering Physician: Henry Sam D.O. Date of Service: 01/12/25 Procedure(s): US OB BPP w non-stress Accession Number(s): [id number] cc: Henry Sam D.O.; Physician,Non-Staff Magaly [place] [address] Patient Name: REGINALD REYES MRN: [facility]:[id number] date: 1995 Sex: F Assigned Patient Location: [facility] Current Patient Location: [facility] Accession/Order Number: [id number] Exam Date: 01/12/2025 11:54 Report Date: 01/12/2025 [...] Mcleod M.D. 01/12/2025 12:00 PM Dictation Location: [place] [address] Electronically authenticated by: [id number] Y Date: 01/12/2025 12:00 Dictated By: Elle Mcleod M.D. Signed By: 01/12/25 1203 DD/ 1200 TD/TT: Cost Recovery Technician: [facility] OB GROWTHon 01-12-2025 [place] [address] Ultrasound Report Signed Patient: REGINALD REYES MR#: [id number] : 1995 Acct:[id number] Age/Sex: 29 / F ADM Date: 01/12/25 Loc: US Attending Dr: Henry Sam D.O. Ordering Physician: Henry Sam D.O. Date of Service: 01/12/25 Procedure(s): US OB growth Accession Number(s): [id number] cc: Henry Sam D.O.; Physician,Non-Staff Magaly The [place] [id number] Patient Name: REGINALD REYES MRN: [facility]:[id number] date: 1995 Sex: F Assigned Patient Location: [facility] Current Patient Location: [facility] Accession/Order Number: [id number] Exam Date: 01/12/2025 11:54 Report Date: 01/12/2025 [...] Mcleod M.D. 01/12/2025 12:00 PM Dictation Location: [place] [address] Electronically authenticated by: [id number] Y Date: 01/12/2025 12:00 Dictated By: Elle Mcleod M.D. Signed By: 01/12/25 1203 DD/ 1200 TD/TT: Cost Recovery Technician: [facility] Radiology, Radiologist, - 01/12/2025 [place] [address] Ultrasound Report Signed Patient: REGINALD REYES MR#: [id number] : 1995 Acct:[id number] Age/Sex: 29 / F ADM Date: 01/12/25 Loc: US Attending Dr: Henry Sam D.O. Ordering Physician: Henry Sam D.O. Date of Service: 01/12/25 Procedure(s): US OB growth Accession Number(s): [id number] cc: Henry Sam D.O.; Physician,Non-Staff Magaly [facility] [place] [address] Patient Name: REGINALD REYES MRN: [facility]:[id number] date: 1995 Sex: F Assigned Patient Location: [facility] Current Patient Location: [facility] Accession/Order Number: [id number] Exam Date: 01/12/2025 11:54 Report Date: 01/12/2025 [...] Mcleod M.D. 01/12/2025 12:00 PM Dictation Location: [place] [address] Electronically authenticated by: [id number] Y Date: 01/12/2025 12:00 Dictated By: Elle Mcleod M.D. Signed By: 01/12/25 1203 DD/ 1200 TD/TT: Cost Recovery Technician: [facility] Bacteria identified Cx Nom ( U)on 01-04-2025 Appearance (U) Adequate [facility] Internal identifier for Provider [id number] [facility] Specimen source Nom (Unsp spec) URINE [facility] Healthcare STATUS FINAL [facility] Performing Organization Information Site ID: QPT Name: [employer] [facility] Address: [address] [place] [id number] Director: Devendra Aguilar MD [facility] - Microbiology an d Antimicrobial susceptibilityon 01-04-2025 Bacteria identified Cx Nom (U) SEE NOTE [facility] Comment on above: Less than 10,000 CFU/mL of single Gram positive organism isolated. No further testing will be performed. If clinically indicated, recollection using a method to minimize contamination, with prompt transfer to Urine Culture Transport Tube, is recommended. US OB BPP W NON-STRESS on 12-29-2024 The [place] [id number] Ultrasound Report Signed Patient: REGINALD REYES MR#: [id number] : 1995 Acct:[id number] Age/Sex: 29 / F ADM Date: 12/29/24 Loc: US Attending Dr: Henry Sam D.O. Ordering Physician: Henry Sam D.O. Date of Service: 12/29/24 Procedure(s): US OB BPP w non-stress Accession Number(s): [id number] cc: Henry Sam D.O.; Physician,Non-Staff Magaly [place] [address] Patient Name: REGINALD REYES MRN: [facility]:[id number] date: 1995 Sex: F Assigned Patient Location: [facility] Current Patient Location: Accession/Order Number: [id number] Exam Date: 12/29/2024 09:34 Report Date: 12/29/2024 [...] Roberson M.D. 12/29/2024 9:36 AM Dictation Location: [place] [address] Electronically authenticated by: [id number] Y Date: 12/29/2024 09:36 Dictated By: Zak Roberson M.D. Signed By: 12/29/24 0938 DD/ 5 TD/TT: Cost Recovery Technician: [facility] Radiology, Radiologist, - 12/29/[address] [address] Ultrasound Report Signed Patient: REGINALD REYES MR#: [id number] : 1995 Acct:[id number] Age/Sex: 29 / F ADM Date: 12/29/24 Loc: US Attending Dr: Henry Sam D.O. Ordering Physician: Henry Sam D.O. Date of Service: 12/29/24 Procedure(s): US OB BPP w non-stress Accession Number(s): [id number] cc: Henry Sam D.O.; Physician,Non-Staff Magaly The [address] [address] Patient Name: REGINALD REYES MRN: [id number]:[id number] date: 1995 Sex: F Assigned Patient Location: [facility] Current Patient Location: Accession/Order Number: [id number] Exam Date: 12/29/2024 09:34 Report Date: 12/29/2024 [...] Roberson M.D. 12/29/2024 9:36 AM Dictation Location[facility] Electronically authenticated by: [id number] Y Date: 12/29/2024 09:36 Dictated By: Zak Roberson M.D. Signed By: 12/29/24 0938 DD/ TD/TT: Cost Recovery Technician: [facility] Radiology Study observation (narrative) [facility] US OB BPP W NON-STRESS Ordered By: Radiologist Radiology on 12-29-2024 [facility] Work Phone: Urinalysis macro (dipstick) panel (U)on 12-25-2024 Bilirubin, UA Negative Negative - 4(70) +++ mg/dL [facility] Blood, UA Negative Negative - 50 Skinny/mcL [facility] Clarity, UA Clear [facility] Color, UA Yellow [facility] Glucose, UA Negative Negative - 2000(110) ++++ mg/dL [facility] Interpretation and review of laboratory results Normal [facility] Ketones, UA Negative Negative - 160(16) ++++ mg/dL [facility] Leukocytes, UA Positive Negative - 500+++ Cal/mcL [facility] Comment on above: small Nitrite, UA Negative Negative - Positive [facility] pH, UA 6.5 5 - 9 [facility] Protein, UA Negative Negative - 2000(20) ++++ mg/dL [facility] Spec Grav, UA 1.02 1 - 1.03 [facility] Urobilinogen, UA 1.0 0.2 - 12 mg/dL [facility] US OB FOLLOW UP TRANSABDOMIN AL APPROACHon [...] II, MD, PHD at 12-Dec-2024 07:13:14 PM [facility] Normal Not Available POCT EKGOrdered By: Abby Andino on 11-08-2024 [facility] HbA1c (Bld) [Mass fraction]o n 10-09-2024 Interpretation and review of laboratory results Normal [facility] - Hematology and Cell countson 10-09-2024 HbA1c (Bld) [Mass fraction] 5.7 % [facility] POCT EKGon 09-19-2024 [facility] No Panel Informationon 08-14 [facility] Chlamydia/GC by PCR ThinPrep fluidon 07-11-2024 Chlamydia Dna(Pcr) Negative [facility] Gonorrhoeae Dna(Pcr) Negative [facility] Drug Screen, Urineon 024 Amphetamine/Methampheta mine Negative [facility] Opiate Quantitative Urine Negative [facility] HIV 1&2 AB/AG Screen (P24 AG )on 07-10-2024 HIV 1&2 AB/AG Non-Reactive [facility] Hemoglobin A1con 07-10-2024 HbA1c (Bld) [Mass fraction] 6.4 % Abnormal 4.0 - 6.0 % [facility] Interpretation and review of laboratory results Abnormal [facility] No Panel Informationon 07-10 [facility] Type and screenon 07-10-2024 Abo/Rh(D) Positive [facility] US OB < 14 WEEKS EARLYon [...] Interpretation and review of laboratory results Normal [facility] - Hematology and Cell countson 06-08-2024 HbA1c (Bld) [Mass fraction] 6.2 % [facility] Cytology Cervical or vaginal smear or scraping studyOrdered By: Christen Nettles on 02-10-2023 [facility] Hemoglobin A1Con 07-05-2019 HbA1c (Bld) [Mass fraction] 5.9 % Normal 4.8-5.9 [facility] Comment on above: Performed By: #### G LYHGAmanda, LIPR #### [address] [place] [address] Forming Machine Upkeep Mechanic Helper: Ruslan Fernando MD #### INSU #### [facility] [employer] [facility] [place] [address] Forming Machine Upkeep Mechanic Helper: Marv Guzman MD [address] [place] [address] Forming Machine Upkeep Mechanic Helper: Ruslan Fernando MD HbA1c (Bld) [Mass fraction] 123 mg/dL Normal [facility] Comment on above: Result Comment: The ADA and AACC recommend providing the estimated average glucose result to permit better patient understanding of their HBA1c result. Performed By: #### G LYHGB, LIPR #### [address] [place] [address] Forming Machine Upkeep Mechanic Helper: Ruslan Fernando MD #### INSU #### [place] [address] [place] [address] Forming Machine Upkeep Mechanic Helper: Marv Guzman MD [address] [place], [place] [phone] Forming Machine Upkeep Mechanic Helper: Ruslan Fernando MD Glucose [Mass/Vol] 123 mg/dL [place], [place] Comment on above: The ADA and AACC rec ommend providing the estimated average glucose result to permit better patient understanding of their HBA1c result. HbA1c (Bld) [Mass fraction] 5.9 % 4.8 - 5.9 % [place], [place] Insulinon 07-05-2019 Insulin 36.2 mU/L [facility] Comment on above: Performed By: #### G LYHGB, LIPR #### [address] [place], [place] [address] Forming Machine Upkeep Mechanic Helper: Ruslan Fernando MD #### INSU #### [address] [address] Forming Machine Upkeep Mechanic Helper: Marv Guzman MD [address] [place] [phone] Forming Machine Upkeep Mechanic Helper: Ruslan Fernando MD Reference Range [facility] Comment on above: Result Comment: Fast in.6-24.9 30 min: 20-112 60 min: 29-88 90 min: 26-84 120 min: 22-79 Performed By: #### G LYHGB, LIPR #### [address] [place], [place] [phone] Forming Machine Upkeep Mechanic Helper: Rulsan Fernando MD #### INSU #### [address] [address] Forming Machine Upkeep Mechanic Helper: Marv Guzman MD [address] [place], [place] [phone] Forming Machine Upkeep Mechanic Helper: Ruslan Fernando MD Collection Info. 6[address] [facility] Comment on above: Performed By: #### G LYHGB, LIPR #### [facility] [address] [place] [address] Forming Machine Upkeep Mechanic Helper: Ruslan Fernando MD #### INSU #### [facility] [address] [place], [place] [id number] Forming Machine Upkeep Mechanic Helper: Marv Guzman MD [facility] [address] [place] [place] [address] Forming Machine Upkeep Mechanic Helper: Ruslan Fernando MD Insulin, totalon 07-05-2019 INR Coag (Bld) [Relative time] [place], [place] Comment on above: Fastin.6-24.9 30 min: 20-112 60 min: 29-88 90 min: 26-84 120 min: 22-79 Insulin 36.2 mU/L [place], [place] Insulin Comment [address] [place], [place] Lipid Panelon 07-05-2019 Cholesterol [Mass/Vol] 204 mg/dL High <200 [place], [place] Comment on above: Cholesterol Guidelines: <200 Desirable 200-240 Borderline >240 Undesirable Cholesterol in HDL [Mass/Vol] 35 mg/dL Low >40 [place], [place] Comment on above: HDL Guidelines: <40 Undesirable 40-59 Borderline >59 Desirable Cholesterol in LDL [Mass/Vol] 102 mg/dL 0 - 130 mg/dL [place], [place] Comment on above: LDL Guidelines: <100 Desirable 100-129 Near to/above Desirable 130-159 Borderline >159 Undesirable Direct (measured) LDL and calculated LDL are not interchangeable tests. Cholesterol in VLDL [Mass/Vol] NOT REPORTED High 1 - 30 mg/dL [place], [place] Cholesterol.total/Perla sterol in HDL [Mass ratio] 5.8 {ratio} High <5 [place], [place] Interpretation and review of laboratory results Abnormal [place], [place] Triglyceride [Mass/Vol] 336 mg/dL High <150 M [place], [place] Comment on above: Triglyceride Guidelines: <150 Desirable 150-199 Borderline 200-499 High >499 Very high Based on AHA Guidelines for fasting triglyceride, May 2012. Lipid Profileon 07-05-2019 Cholesterol [Mass/Vol] 204 mg/dL High <200 [facility] Comment on above: Result Comment: Cholesterol Guidelines: <200 Desirable 200-240 Borderline >240 Undesirable Performed By: #### G LYHGB, LIPR #### [address] [place] [address] [employer] Upkeep Mechanic Helper: Ruslan Fernando MD #### INSU #### [address] [place] [address] [employer] Machine Upkeep Mechanic Helper: Marv Guzman MD [address] [place] [address] [employer]ing Machine Upkeep Mechanic Helper: Ruslan Fernando MD Cholesterol in HDL [Mass/Vol] 35 mg/dL Low >40 [facility] Comment on above: Result Comment: HDL Guidelines: <40 Undesirable 40-59 Borderline >59 Desirable Performed By: #### G LYHGB, LIPR #### [address] [place] [address] [employer] Machine Upkeep Mechanic Helper: Ruslan Fernando MD #### INSU #### [address] [address] [employer] Upkeep Mechanic Helper: Marv Guzman MD [address] [place] [address] [employer]ing Machine Upkeep Mechanic Helper: Ruslan Fernando MD Cholesterol in LDL [Mass/Vol] 102 mg/dL Normal 0-130 [facility] Comment on above: Result Comment: LDL Guidelines: <100 Desirable 100-129 Near to/above Desirable 130-159 Borderline >159 Undesirable Direct (measured) LDL and calculated LDL are not interchangeable tests. Performed By: #### G LYHGB, LIPR #### [address] [place] [address] [employer] Upkeep Mechanic Helper: Ruslan Fernando MD #### INSU #### [address] [place] [address] [employer] Upkeep Mechanic Helper: Marv Guzman MD [address] [place] [address] [employer] Machine Upkeep Mechanic Helper: Ruslan Fernando MD Cholesterol.total/Perla sterol in HDL [Mass ratio] 5.8 {ratio} High <5 [facility] Comment on above: Performed By: #### G LYHGB, LIPR #### [facility] [address] [place] [address] [employer] Machine Upkeep Mechanic Helper: Ruslan Fernando MD #### INSU #### [facility] [address] [place] [address] [employer] Machine Upkeep Mechanic Helper: Marv Guzman MD [address] [place] [address] Forming Machine Upkeep Mechanic Helper: Ruslan Fernando MD Triglyceride [Mass/Vol] 336 mg/dL High <150 M [facility] Comment on above: Result Comment: Triglyceride Guidelines: <150 Desirable 150-199 Borderline 200-499 High >499 Very high Based on AHA Guidelines for fasting triglyceride, May 2012. Performed By: #### G LYHGB, LIPR #### [facility] [address] [place] [address] [place] [address] [employer] Upkeep Mechanic Helper: Ruslan Fernando MD #### INSU #### [facility] [address] [place] [address] [employer] Upkeep Mechanic Helper: Marv Guzman MD [address] [place] [address] Forming Machine Upkeep Mechanic Helper: Ruslan Fernando MD Cholesterol in VLDL [Mass/Vol] NOT REPORTED Normal 09-14 [facility] Comment on above: Performed By: #### G LYHGB, LIPR #### [facility] [address] [place] [address] [place] [address] [employer] Machine Upkeep Mechanic Helper: Ruslan Fernando MD #### INSU #### [facility] [address] [place] [address] Forming Machine Upkeep Mechanic Helper: Marv Guzman MD [address] [place] [address] Forming Machine Upkeep Mechanic Helper: Ruslan Fernando MD Vital Signs Date Time Vital Sign Value Performing Clinician Facility 01-29-2025 16:33-0400 Body mass index (BMI) [Ratio] 34.72 kg/m2 Darío Floro CNM Work Phone: [facility] 01-29-2025 16:33-0400 Body weight 109.77 kg Darío Floro CNM Work Phone: [facility] 01-29-2025 16:33-0400 Diastolic blood pressure 60 mm[Hg] Darío Floro CNM Work Phone: [facility] 01-29-2025 16:33-0400 Systolic blood pressure 120 mm[Hg] Darío Floro CNM Work Phone: [facility] 01-22-2025 16:32-0400 Body mass index (BMI) [Ratio] 34.44 kg/m2 Darío Floro CNM Work Phone: [facility] 01-22-2025 16:32-0400 Body weight 108.86 kg Darío Sheebao CNM Work Phone: [facility] 01-22-2025 16:32-0400 Diastolic blood pressure 70 mm[Hg] Darío Floro CNM Work Phone: [facility] 01-22-2025 16:32-0400 Systolic blood pressure 120 mm[Hg] Darío Floro CNM Work Phone: [facility] 01-18-2025 08:28-0400 Body height 177.8 cm Awilda Petznick DO Work Phone: [facility] 01-18-2025 08:28-0400 Body mass index (BMI) [Ratio] 34.44 kg/m2 Awilda Petznick DO Work Phone: [facility] 01-18-2025 08:28-0400 Body temperature 98.01 [degF] Awilda Petznick DO Work Phone: [facility] 01-18-2025 08:28-0400 Body weight 108.86 kg Awilda Petznick DO Work Phone: [facility] 01-18-2025 08:28-0400 Diastolic blood pressure 66 mm[Hg] Awilda Petznick DO Work Phone: [facility] 01-18-2025 08:28-0400 Heart rate 88 /min Awilda Petznick DO Work Phone: [facility] 01-18-2025 08:28-0400 SaO2% (BldA) [Mass fraction] 98 % Awilda Petznick DO Work Phone: [facility] 01-18-2025 08:28-0400 Systolic blood pressure 118 mm[Hg] Awilda Petznick DO Work Phone: [facility] 01-15-2025 16:36-0400 Body mass index (BMI) [Ratio] 34.87 kg/m2 Darío Floro CNM Work Phone: [facility] 01-15-2025 16:36-0400 Body weight 110.22 kg Darío Floro CNM Work Phone: [facility] 01-15-2025 16:36-0400 Diastolic blood pressure 78 mm[Hg] Darío Floro CNM Work Phone: [facility] 01-15-2025 16:36-0400 Systolic blood pressure 120 mm[Hg] Darío Floro CNM Work Phone: [facility] 01-09-2025 16:34-0400 Body mass index (BMI) [Ratio] 34.72 kg/m2 Darío Floro CNM Work Phone: [facility] 01-09-2025 16:34-0400 Body weight 109.77 kg Darío Floro CNM Work Phone: [facility] 01-09-2025 16:34-0400 Diastolic blood pressure 74 mm[Hg] Darío Floro CNM Work Phone: [facility] 01-09-2025 16:34-0400 Systolic blood pressure 120 mm[Hg] Darío Floro CNM Work Phone: [facility] 01-01-2025 16:33-0400 Body mass index (BMI) [Ratio] 34.29 kg/m2 Darío Floro CNM Work Phone: [facility] 01-01-2025 16:33-0400 Body weight 108.41 kg Darío Floro CNM Work Phone: [facility] 01-01-2025 16:33-0400 Diastolic blood pressure 72 mm[Hg] Darío Floro CNM Work Phone: [facility] 01-01-2025 16:33-0400 Systolic blood pressure 120 mm[Hg] Darío Floro CNM Work Phone: [facility] 12-26-2024 16:02-0400 Body mass index (BMI) [Ratio] 34.15 kg/m2 Darío Floro CNM Work Phone: [facility] 12-26-2024 16:02-0400 Body weight 107.96 kg Darío Floro CNM Work Phone: [facility] 12-26-2024 16:02-0400 Diastolic blood pressure 74 mm[Hg] Darío Floro CNM Work Phone: [facility] 12-26-2024 16:02-0400 Systolic blood pressure 116 mm[Hg] Darío Floro CNM Work Phone: [facility] 12-11-2024 15:56-0400 Diastolic blood pressure 70 mm[Hg] Darío Floro CNM Work Phone: [facility] 12-11-2024 15:56-0400 Systolic blood pressure 120 mm[Hg] Darío Floro CNM Work Phone: [facility] 12-07-2024 08:17-0400 Body height 177.8 cm Awilda Petznick DO Work Phone: [facility] 12-07-2024 08:17-0400 Body temperature 97.9 [degF] Awilda Petznick DO Work Phone: [facility] 12-07-2024 08:17-0400 Diastolic blood pressure 66 mm[Hg] Awilda Petznick DO Work Phone: [facility] 12-07-2024 08:17-0400 Heart rate 86 /min Awilda Petznick DO Work Phone: [facility] 12-07-2024 08:17-0400 SaO2% (BldA) [Mass fraction] 98 % Awilda Petznick DO Work Phone: [facility] 12-07-2024 08:17-0400 Systolic blood pressure 126 mm[Hg] Awilda Petznick DO Work Phone: [facility] 11-15-2024 16:31-0400 Body mass index (BMI) [Ratio] 34.44 kg/m2 Darío Banuelos CNM Work Phone: [facility] 11-15-2024 16:31-0400 Body weight 108.86 kg Darío Banuelos CNM Work Phone: [facility] 11-15-2024 16:31-0400 Diastolic blood pressure 78 mm[Hg] Darío Banuelos CNM Work Phone: [facility] 11-15-2024 16:31-0400 Systolic blood pressure 120 mm[Hg] Darío Banuelos CNM Work Phone: [facility] 11-08-2024 09:17-0400 Body height 177.8 cm Tricia Rowland MD Work Phone: [facility] 11-08-2024 09:17-0400 Body mass index (BMI) [Ratio] 34.06 kg/m2 Tricia Rowland MD Work Phone: [facility] 11-08-2024 09:17-0400 Body weight 107.68 kg Tricia Rowland MD Work Phone: [facility] 11-08-2024 09:17-0400 Diastolic blood pressure 64 mm[Hg] Tricia Rowland MD Work Phone: [facility] 11-08-2024 09:17-0400 Heart rate 80 /min Tricia Rowland MD Work Phone: [facility] 11-08-2024 09:17-0400 SaO2% (BldA) [Mass fraction] 98 % Tricia Rowland MD Work Phone: [facility] 11-08-2024 09:17-0400 Systolic blood pressure 128 mm[Hg] Tricia Rowland MD Work Phone: [facility] 10-18-2024 16:37-0500 Body mass index (BMI) [Ratio] 34.15 kg/m2 Darío Alyo CNM Work Phone: [facility] 10-18-2024 16:37-0500 Body weight 107.96 kg Darío Alyo CNM Work Phone: [facility] 10-18-2024 16:37-0500 Diastolic blood pressure 60 mm[Hg] Darío Alyo CNM Work Phone: [facility] 10-18-2024 16:37-0500 Systolic blood pressure 120 mm[Hg] Darío Alyo CNM Work Phone: [facility] 10-09-2024 15:40-0500 Body height 177.8 cm Awilda Petznick DO Work Phone: [facility] 10-09-2024 15:40-0500 Body mass index (BMI) [Ratio] 34.01 kg/m2 Awilda Petznick DO Work Phone: [facility] 10-09-2024 15:40-0500 Body temperature 98.2 [degF] Awilda Petznick DO Work Phone: [facility] 10-09-2024 15:40-0500 Body weight 107.5 kg Awilda Petznick DO Work Phone: [facility] 10-09-2024 15:40-0500 Diastolic blood pressure 66 mm[Hg] Awilda Petznick DO Work Phone: [facility] 10-09-2024 15:40-0500 Heart rate 98 /min Awilda Petznick DO Work Phone: [facility] 10-09-2024 15:40-0500 SaO2% (BldA) [Mass fraction] 98 % Awilda Petznick DO Work Phone: [facility] 10-09-2024 15:40-0500 Systolic blood pressure 128 mm[Hg] Awilda Petznick DO Work Phone: [facility] 09-28-2024 16:17-0500 Body mass index (BMI) [Ratio] 34.58 kg/m2 Darío Alyo CNM Work Phone: [facility] 09-28-2024 16:17-0500 Body weight 109.32 kg Darío Alyo CNM Work Phone: [facility] 09-28-2024 16:17-0500 Diastolic blood pressure 70 mm[Hg] Darío Alyo CNM Work Phone: [facility] 09-28-2024 16:17-0500 Systolic blood pressure 120 mm[Hg] Darío Banuelos CNM Work Phone: [facility] 09-19-2024 10:31-0500 Body height 177.8 cm Aye Saucedo MD Work Phone: [facility] 09-19-2024 10:31-0500 Body mass index (BMI) [Ratio] 34.15 kg/m2 Aye Saucedo MD Work Phone: [facility] 09-19-2024 10:31-0500 Body weight 107.96 kg Aye Saucedo MD Work Phone: [facility] 09-19-2024 10:31-0500 Diastolic blood pressure 76 mm[Hg] Aye Saucedo MD Work Phone: [facility] 09-19-2024 10:31-0500 Heart rate 85 /min Aye Saucedo MD Work Phone: [facility] 09-19-2024 10:31-0500 SaO2% (BldA) [Mass fraction] 98 % Aye Saucedo MD Work Phone: [facility] 09-19-2024 10:31-0500 Systolic blood pressure 122 mm[Hg] Aye Saucedo MD Work Phone: [facility] 09-11-2024 08:12-0500 Body mass index (BMI) [Ratio] 34.29 kg/m2 Clarke Modi MD Work Phone: [facility] 09-11-2024 08:12-0500 Body weight 108.41 kg Clarke Modi MD Work Phone: [facility] 09-11-2024 08:12-0500 Diastolic blood pressure 81 mm[Hg] Clarke Modi MD Work Phone: [facility] 09-11-2024 08:12-0500 Heart rate 80 /min Clarke Modi MD Work Phone: [facility] 09-11-2024 08:12-0500 Systolic blood pressure 122 mm[Hg] Clarke Modi MD Work Phone: [facility] 09-01-2024 08:54-0500 Body height 177.8 cm Awilda Petznick DO Work Phone: [facility] 09-01-2024 08:54-0500 Body mass index (BMI) [Ratio] 34.44 kg/m2 Awilda Petznick DO Work Phone: [facility] 09-01-2024 08:54-0500 Body temperature 98.49 [degF] Awilda Petznick DO Work Phone: [facility] 09-01-2024 08:54-0500 Body weight 108.86 kg Awilda Petznick DO Work Phone: [facility] 09-01-2024 08:54-0500 Diastolic blood pressure 72 mm[Hg] Awilda Petznick DO Work Phone: [facility] 01-17-2025 08:54-0500 Heart rate 92 /min Awilda Petznick DO Work Phone: [facility] 09-01-2024 08:54-0500 SaO2% (BldA) [Mass fraction] 97 % Awilda Petznick DO Work Phone: [facility] 09-01-2024 08:54-0500 Systolic blood pressure 126 mm[Hg] Awilda Petznick DO Work Phone: [facility] 08-30-2024 16:08-0500 Body mass index (BMI) [Ratio] 34.58 kg/m2 Darío Alyo CNM Work Phone: [facility] 08-30-2024 16:08-0500 Body weight 109.32 kg Darío Alyo CNM Work Phone: [facility] 08-30-2024 16:08-0500 Diastolic blood pressure 68 mm[Hg] Darío Alyo CNM Work Phone: [facility] 08-30-2024 16:08-0500 Systolic blood pressure 120 mm[Hg] Darío Alyo CNM Work Phone: [facility] 08-14-2024 10:40-0500 Body height 177.8 cm Svetlana Lavoy PA-C Work Phone: [facility] 08-14-2024 10:40-0500 Body mass index (BMI) [Ratio] 34.72 kg/m2 Svetlana Lavoy PA-C Work Phone: [facility] 08-14-2024 10:40-0500 Body weight 109.77 kg Svetlana Lavoy PA-C Work Phone: [facility] 08-14-2024 10:40-0500 Diastolic blood pressure 68 mm[Hg] Svetlana Lavoy PA-C Work Phone: [facility] 08-14-2024 10:40-0500 Heart rate 86 /min Svetlana Lavoy PA-C Work Phone: [facility] 08-14-2024 10:40-0500 Systolic blood pressure 134 mm[Hg] Svetlana Jack PA-C Work Phone: [facility] 08-14-2024 09:42-0500 Body height 177.8 cm Shauna Denny RN Work Phone: [facility] 08-14-2024 09:41-0500 Body mass index (BMI) [Ratio] 34.72 kg/m2 Shauna Denny RN Work Phone: [facility] 08-14-2024 09:41-0500 Body weight 109.77 kg Shauna Denny RN Work Phone: [facility] 08-03-2024 08:36-0500 Body mass index (BMI) [Ratio] 35.3 kg/m2 Darío Floro CNM Work Phone: [facility] 08-03-2024 08:36-0500 Body weight 111.58 kg Darío Floro CNM Work Phone: [facility] 08-03-2024 08:36-0500 Diastolic blood pressure 80 mm[Hg] Darío Floro CNM Work Phone: [facility] 08-03-2024 08:36-0500 Systolic blood pressure 122 mm[Hg] Darío Floro CNM Work Phone: [facility] 07-10-2024 15:43-0500 Body mass index (BMI) [Ratio] 35.3 kg/m2 Darío Floro CNM Work Phone: [facility] 07-10-2024 15:43-0500 Body weight 111.58 kg Darío Floro CNM Work Phone: [facility] 07-10-2024 15:43-0500 Diastolic blood pressure 76 mm[Hg] Darío Floro CNM Work Phone: [facility] 07-10-2024 15:43-0500 Systolic blood pressure 120 mm[Hg] Darío Floro CNM Work Phone: [facility] 06-08-2024 14:04-0400 Body height 177.8 cm Awilda Petznick DO Work Phone: [facility] 06-08-2024 14:04-0400 Body mass index (BMI) [Ratio] 35.01 kg/m2 Awilda Petznick DO Work Phone: [facility] 06-08-2024 14:04-0400 Body temperature 98.49 [degF] Awilda Petznick DO Work Phone: [facility] 06-08-2024 14:04-0400 Body weight 110.68 kg Awilda Petznick DO Work Phone: [facility] 06-08-2024 14:04-0400 Diastolic blood pressure 72 mm[Hg] Awilda Petznick DO Work Phone: [facility] 06-08-2024 14:04-0400 Heart rate 87 /min Burdett Petznick DO Work Phone: [facility] 06-08-2024 14:04-0400 SaO2% (BldA) [Mass fraction] 98 % Awilda Petznick DO Work Phone: [facility] 06-08-2024 14:04-0400 Systolic blood pressure 138 mm[Hg] Awilda Petznick DO Work Phone: [facility] Healthcare Encounters Encounter Date Encounter Type Care Provider Facility Start: 02-07-2025 End: 02-07-2025 Clinisync Result Encounter Darío L Sheebao CNM Work Phone: [facility] External Department Unsolicited Start: 02-07-2025 End: 02-07-2025 Clinisync Result Encounter Darío L Floro CNM Work Phone: [facility] External Department Unsolicited Start: 02-06-2025 ambulatory DARÍO L FLORO Not Lisa ilable Start: 02-06-2025 End: 02-06-2025 Bamboo flowsheet Darío L Floro CNM Work Phone: [facility] Start: 02-06-2025 End: 02-06-2025 Bamboo flowsheet Darío Nadine Floro CNM Work Phone: [facility] Start: 02-02-2025 End: 02-02-2025 Clinisync Result Encounter Henry Flaco DO Work Phone: [facility] External Department Unsolicited Start: 02-02-2025 End: 02-02-2025 Clinisync Result Encounter Henry Flaco DO Work Phone: [facility] External Department Unsolicited Start: 01-29-2025 End: 01-29-2025 Subsequent care visit Darío Nadine Alyo CNM Work Phone: [facility] Comment on above: with type 2 diabetes mellitus in third trimester ([facility]) (Primary Dx); Type 2 diabetes mellitus treated with insulin (HCC); Encounter for care of first , third trimester ([facility]) Start: 01-29-2025 End: 01-29-2025 ambulatory DARÍO L FLORO Not Available Start: 01-29-2025 End: 01-29-2025 Bamboo flowsheet Darío L Floro CNM Work Phone: [facility] Start: 01-29-2025 End: 01-29-2025 Bamboo flowsheet Darío Nadine Floro CNM Work Phone: [facility] Start: 01-26-2025 End: 01-26-2025 Clinisync Result Encounter Henry Flaco DO Work Phone: [facility] External Department Unsolicited Start: 01-26-2025 End: 01-26-2025 Clinisync Result Encounter Henry Flaco DO Work Phone: [facility] External Department Unsolicited Start: 01-22-2025 End: 01-22-2025 ambulatory DARÍO L FLORO Not Available Start: 01-22-2025 End: 01-22-2025 Subsequent care visit Darío L Floro CNM Work Phone: [facility] Comment on above: screening for streptococcus B (Primary Dx); with type 2 diabetes mellitus in third trimester; Type 2 diabetes mellitus treated with insulin ([facility]) Start: 01-22-2025 End: 01-22-2025 Bamboo flowsheet Darío L Floro CNM Work Phone: [facility] Start: 01-22-2025 End: 01-22-2025 Bamboo flowsheet Darío L Floro CNM Work [...] 01-15-2025 End: 01-15-2025 Subsequent care visit Darío L Floro CNM [...] 01-09-2025 End: 01-09-2025 Subsequent care visit Darío Alyo CNM Work Phone: [facility] Comment on above: Type 2 diabetes guerrero itus treated with insulin ([facility]) (Primary Dx); Encounter for care of first , third trimester Start: 01-09-2025 End: 01-09-2025 Bamboo flowsheet Darío Nadine Alyo CNM Work Phone: [facility] Start: 01-09-2025 End: 01-09-2025 Bamboo flowsheet Darío Nadine Alyo CNM Work Phone: [facility] Start: 01-01-2025 End: 01-01-2025 ambulatory DARÍO L FLORO Not Available Start: 01-01-2025 End: 01-01-2025 Subsequent care visit Darío Alyo CNM Work Phone: [facility] Comment on above: Screening for iron d eficiency anemia (Primary Dx); Dysuria Start: 01-01-2025 End: 01-01-2025 Bamboo flowsheet Darío Nadine Floro CNM Work [...] Type 2 diabetes mellitus treated with insulin ([facility]) Start: 12-26-2024 End: 12-26-2024 Bamboo flowsheet Darío [...] Start: 12-11-2024 End: 12-11-2024 Bamboo flowsheet Darío Nadine Alyo CNM Work Phone: [facility] Start: 12-07-2024 End: 12-07-2024 Office outpatient visit 15 minutes Awilda Delatorre DO Work Phone: [phone] Comment on above: with type 2 diabetes mellitus in third trimester (Primary Dx); with type 2 diabetes mellitus in second trimester Start: 12-07-2024 End: 12-07-2024 ambulatory AWILDA DELATORRE Not Available Start: 11-15-2024 End: 11-15-2024 Subsequent care visit Darío Nadine Alyo CNM Work Phone: [facility] Comment [...] on ECG Start: 11-08-2024 End: 11-08-2024 ambulatory [facility] Start: 11-07-2024 End: 11-07-2024 Telephone encounter Abby Andino CMA [facility] Start: 10-31-2024 End: 10-31-2024 ambulatory [facility] Start: 10-18-2024 End: 10-18-2024 Subsequent care visit Darío Banuelos CNM Work Phone: [facility] Comment on above: Type 2 diabetes guerrero itus with hyperosmolarity without coma, without long-term current use of insulin ([facility]) (Primary Dx); Encounter for care of first , second trimester ([facility]) Start: 10-18-2024 End: 10-18-2024 ambulatory DARÍO BANUELOS Not Available Start: 10-18-2024 End: 10-18-2024 Bamboo flowsheet Darío Banuelos CNM Work Phone: [facility] Start: 10-18-2024 End: 10-18-2024 Bamboo flowsheet Darío Banuelos CNM Work Phone: [facility] Start: 10-10-2024 End: 10-10-2024 Office outpatient visit 25 minutes Clarke Modi MD Work Phone: [facility] Comment on above: Pre-existing type 2 diabetes mellitus during in second trimester (Primary Dx) Start: 10-10-2024 End: 10-10-2024 ambulatory [facility] Start: 10-09-2024 End: 10-09-2024 Office outpatient visit 15 minutes Awilda Delatorre DO Work Phone: [phone] Comment on above: with type 2 diabetes mellitus in second trimester (Primary Dx); Type 2 diabetes mellitus without complication, without long-term current use of insulin ([facility]) Start: 10-09-2024 End: 10-09-2024 ambulatory AWILDA DELATORRE Not Available Start: 10-03-2024 End: 10-03-2024 ambulatory [facility] Start: 09-28-2024 End: 09-28-2024 Subsequent care visit Darío Banuelos CNM Work Phone: [facility] Comment on above: Encounter for prenat al care of first , second trimester (Primary Dx); Type 2 diabetes mellitus without complication, without long-term current use of insulin ([facility]) Start: 09-28-2024 End: 09-28-2024 ambulatory DARÍO BANUELOS Not Available Start: 09-28-2024 End: 09-28-2024 Bamboo flowsheet Darío Banuelos CNM Work Phone: [facility] Start: 09-28-2024 End: 09-28-2024 Bamboo flowsheet Darío Banuelos CNM Work Phone: [facility] Start: 09-19-2024 End: 09-19-2024 Office consultation new/estab patient 40 min Jacque Schneider MD Work Phone: [facility] Comment on above: Long Q-T syndrome (P rimary Dx); Type 2 diabetes mellitus without complication, unspecified whether jail insulin use ([facility]) Start: 09-19-2024 End: 09-19-2024 ambulatory [facility] Start: 09-18-2024 End: 09-18-2024 Telephone encounter Abby Andino [facility] [facility] Start: 09-14-2024 End: 09-14-2024 Chart abstracting Jacque Schneider MD Work Phone: [facility] Start: 09-11-2024 End: 09-11-2024 Telephone encounter Yudelka Randall RN Maternal- Medicine at [facility] Start: 09-11-2024 End: 09-11-2024 Office outpatient visit 25 minutes Clarke Modi MD Work Phone: Maternal- Medicine at [facility] Comment on above: Pre-existing type 2 diabetes mellitus during in second trimester (Primary Dx); Long Q-T syndrome Start: 09-11-2024 End: 09-11-2024 ambulatory CLARKE MODI [facility] Start: 09-05-2024 End: 09-05-2024 Telephone encounter Sparkle Puccetti RN Maternal- Medicine at [facility] Start: 09-01-2024 End: 09-01-2024 Office outpatient visit 25 minutes Awilda Delatorre DO Work Phone: [facility] Comment on above: with type 2 diabetes mellitus in second trimester (Primary Dx) Start: 09-01-2024 End: 09-01-2024 ambulatory AWILDA DELATORRE Not Available Start: 08-30-2024 End: 08-30-2024 Subsequent care visit Darío BRANDM Work Phone: [facility] Comment on above: Type 2 diabetes guerrero itus without complication, without long- term current use of insulin ([facility]) Start: 08-28-2024 End: 08-28-2024 Telephone encounter Donna Posadas RN Maternal- Medicine at [facility] Start: 08-23-2024 End: 08-23-2024 Office outpatient visit 25 minutes Ariella [place] GABBY Work Phone: Maternal- Medicine at [facility] Comment on above: Type 2 diabetes guerrero itus without complication, unspecified whether jail insulin use ([facility]) (Primary Dx) Start: 08-23-2024 End: 08-23-2024 ambulatory [facility] Start: 08-14-2024 End: 08-14-2024 Office outpatient new 45 minutes Svetlana Jack PA-C Work Phone: Maternal- Medicine at [facility] Comment on above: with type 2 diabetes mellitus in second trimester (Primary Dx); Long Q-T syndrome Start: 08-14-2024 End: 08-14-2024 ambulatory Shauna Denny RN Work Phone: Maternal- Medicine at [facility] Comment on above: Pre-existing type 2 diabetes mellitus in in first trimester with type 2 diabetes mellitus in second trimester (Primary Dx) Start: 08-03-2024 End: 08-03-2024 Bamboo flowsheet Darío Banuelos CNM Work Phone: [facility] Start: 08-03-2024 End: 08-03-2024 Bamboo flowsheet Darío L Floro CNM Work Phone: [facility] Start: 08-03-2024 End: 08-03-2024 Subsequent care visit Darío Nadine Alyo CNM Work Phone: [facility] Comment on above: Encounter for prenat al care of first , first trimester (Primary Dx); Type 2 diabetes mellitus with hyperosmolarity without coma, without long-term current use of insulin (CMS/[facility]) Start: 08-03-2024 End: 08-03-2024 ambulatory DARÍO L FLORO Not Available Start: 07-25-2024 End: 07-25-2024 Chart abstracting Scanning Provider External Maternal- Medicine at [facility] Start: 07-10-2024 End: 07-10-2024 Subsequent care visit Darío Alyo CNM Work Phone: [facility] Comment [...] minutes Awilda Delatorre DO Work Phone: [facility] Comment on above: Type 2 diabetes guerrero itus without complication, without long- term current use of insulin (CMS/[facility]) Start: 06-08-2024 End: 06-08-2024 ambulatory AWILDA DELATORRE Not Available Start: 05-03-2024 End: 05-03-2024 Telephone encounter Darío Banuelos CNM Work Phone: [facility] Start: 02-28-2024 End: 02-28-2024 ambulatory AWILDA Brooks JUAN RAMON Not Available Start: 07-05-2019 End: 07-06-2019 Patient encounter procedure DARÍO BANUELOS [facility] Start: 07-05-2019 End: 07-05-2019 Subsequent hospital visit by physician [facility] Laboratory Procedures Date Procedure Procedure Detail Performing Clinician Start: 02-07-2025 US OB GROWTH Darío Banuelos CNM Work Phone: Start: 02-02-2025 US OB BPP W NON-STRESS Henry Flaco DO Work Phone: Start: 01-26-2025 US OB BPP W NON-STRESS Henry Flaco DO Work Phone: Start: 01-19-2025 US OB BPP W NON-STRESS Henry Flaco DO Work Phone: Start: 01-18-2025 Hemoglobin glycosyla carola a1c Awilda Guy Juan Ramon DO Work Phone: Start: 01-12-2025 US OB [...] Work Phone: Start: 08-14-2024 AMB REFERRAL TO [facility] MEDICINE - DIABETES EDUCATION Darío Banuelos MAID HOUSEKEEPER-CN Work Phone: Start: 08-14-2024 AMB REFERRAL TO [facility] MEDICINE - NUTRITION EDUCATION Darío Banuelos MAID HOUSEKEEPER-CN Work Phone: Start: 07-11-2024 CHLAMYDIA/GC BY PCR [...] Adult BMI Screening Adult BMI Screen ing [facility] Start: 11-08-2025 Tobacco Screening Tobacco Screening [facility] Start: 09-19-2025 Adult BMI Screening Adult BMI Screen ing [facility] Start: 09-19-2025 Tobacco Screening Tobacco Screening [facility] Start: 09-11-2025 Adult BMI Screening Adult BMI Screen ing [facility] Start: 09-11-2025 Tobacco Screening Tobacco Screening [facility] Start: 08-30-2025 Urine screening for protein Diabetes: Urine Protein Screening [facility] Start: 08-14-2025 Adult BMI Screening Adult BMI Screen ing [facility] Start: 08-14-2025 Tobacco Screening Tobacco Screening [facility] Start: 08-14-2025 End: 08-14-2025 US MFM with or without consult US MFM with or without consult Imaging Routine with type 2 diabetes mellitus in second trimester Expected: 08/14/2025 (Approximate), Expires: 08/14/2025 [facility] Work Phone: Comment on above: Expected: 08/14/2025 (Approximate), Expires: 08/14/2025 Start: 04-20-2025 Hemoglobin A1c measurement Diabetes: Hemoglobin A1C [facility] Start: 04-19-2025 End: 04-19-2025 Patient encounter procedure 04/19/2025 10:45 AM EDT Office Visit [facility] [address] [place] [id number] Awilda Delatorre, DO [address] [place] [address] [facility] 230 Start: 04-17-2025 End: 04-17-2025 Patient encounter procedure 04/17/2025 10:30 AM EDT Office Visit [facility] [address] [place] [phone] Awilda Delatorre, DO [address] [place] [address] [facility] 230 Start: 04-16-2025 Influenza vaccination Influenz a Vaccine (Season Ended) [facility] Start: 02-22-2025 End: 02-22-2025 Telemedicine consultation with patient 02/22/2025 1:30 PM EDT Telemedicine [facility] [address] [facility] [address] Darío Banuelos, CNM [address] [place] [address] [facility] Start: 02-15-2025 End: 02-15-2025 Professional / ancillary services management 02/15/2025 4:00 PM EDT Ancillary Procedure [facility] [address] [facility] [address] [place] [address] [facility] Start: 02-13-2025 End: 02-13-2025 Patient encounter procedure 02/13/2025 4:00 PM EDT Routine [facility] [address] [facility] [address] Darío Banuelos, CNM [address] [place] [address] [facility] Start: 02-12-2025 End: 02-12-2025 Patient encounter procedure 02/12/2025 4:30 PM EDT Routine [facility] [address] [facility] [address] Darío Banuelos, CNM [address] [place] [address] [facility] Start: 02-09-2025 End: 02-09-2025 Professional / ancillary services management 02/09/2025 4:00 PM EDT Ancillary Procedure [facility] [address] [facility] [address] [place] [address] [facility] Start: 02-06-2025 End: 02-06-2025 Patient encounter procedure [facility] Comment on above: Arrived Start: 02-02-2025 End: 02-02-2025 Professional / ancillary services management 02/02/2025 4:00 PM EDT Ancillary Procedure [facility] [address] [facility] [address] [place] [address] [facility] Start: 01-30-2025 End: 01-30-2025 Patient encounter procedure 01/30/2025 4:00 PM EDT Routine [facility] [address] [facility] [address] Darío Banuelos, CNM [address] [place] [address] [facility] Start: 01-29-2025 End: 01-29-2025 Patient encounter procedure [facility] Comment on above: Arrived Start: 01-26-2025 End: 01-26-2025 Professional / ancillary services management 01/26/2025 4:00 PM EDT Ancillary Procedure [facility] [address] [facility] [address] [place] [address] [facility] Start: 01-23-2025 End: 01-23-2025 Patient encounter procedure 01/23/2025 4:00 PM EDT Routine [facility] [address] [facility] [address] Darío Banuelos, CNM [address] [place] [address] [facility] Start: 01-22-2025 End: 01-22-2025 Patient encounter procedure 01/22/2025 4:30 PM EDT Routine [facility] [address] [facility] [address] Darío Banuelos, CNM [address] [place] [address] [facility] Start: 01-22-2025 End: 01-22-2026 STREPTOCCOUS, GROUP B CULTURE STREPTOCCOUS, GROUP B CULTURE Lab Routine screening for streptococcus B Expected: 01/22/2025 (Approximate), Expires: 01/22/2026 [facility] Work Phone: Comment on above: Expected: 01/22/2025 (Approximate), Expires: 01/22/2026 Start: 01-19-2025 End: 01-19-2025 Professional / ancillary services management 01/19/2025 9:15 AM EDT Ancillary Procedure [facility] [address] [phone] [facility] Start: 01-18-2025 End: 01-18-2025 Patient encounter procedure [facility] Comment on above: with type 2 diabetes mellitus in third trimester Start: 01-16-2025 End: 01-16-2025 Patient encounter procedure 01/16/2025 4:00 PM EDT Routine [facility] [address] [place] [phone] Darío Banuelos CNM [address] [place] [address] [facility] Start: 01-15-2025 End: 01-15-2025 Patient encounter procedure [facility] Comment on above: Arrived Start: 01-12-2025 End: 01-12-2025 Professional / ancillary services management 01/12/2025 4:00 PM EDT Ancillary Procedure [facility] [address] [address] [facility] Start: 01-09-2025 End: 01-09-2025 Patient encounter procedure 01/09/2025 4:00 PM EDT Routine [facility] [address] [place] [address] Darío Banuelos, CNM [address] [place] [address] [facility] Start: 01-06-2025 Hemoglobin A1c measurement Diabetes: Hemoglobin A1C [facility] Start: 01-05-2025 End: 01-05-2025 Professional / ancillary services management 01/05/2025 9:15 AM EDT Ancillary Procedure [facility] [address] [facility] [address] [place] [address] [facility] Start: 01-03-2025 Urine screening for protein Diabetes: Urine Protein Screening [facility] Start: 01-02-2025 End: 01-02-2025 Patient encounter procedure 01/02/2025 4:00 PM EDT Routine [facility] [address] [facility] [address] Darío Banuelos, CNM [address] [place] [address] [facility] Start: 01-01-2025 End: 01-01-2025 Patient encounter procedure 01/01/2025 4:30 PM EDT Routine [facility] [address] [facility] [address] Darío Banuelos, CNM [address] [place] [address] [facility] Start: 12-29-2024 End: 12-29-2024 Professional / ancillary services management 12/29/2024 4:00 PM EDT Ancillary Procedure [facility] [address] [place] [address] [facility] Start: 12-26-2024 End: 12-26-2024 Patient encounter procedure 12/26/2024 4:00 PM EDT Routine [facility] [address] [facility] [address] Darío Banuelos, CNM [address] [place] [address] [facility] Start: 12-26-2024 End: 12-26-2025 [...] ULTRASOUND [address] [place] [address] [facility] Start: 12-11-2024 End: 12-11-2024 [...] [address] [place] [address] Awilda Delatorre DO [address] [place] [address] [facility] Start: 11-15-2024 End: 11-15-2024 Patient encounter procedure 11/15/2024 4:30 PM EDT Routine [facility] [address] [place] [phone] Darío Banuelos CNM [address] [place] [address] Arrived [facility] Comment on above: Arrived Start: 11-15-2024 End: 11-15-2025 US for US OB follow up transabdominal approach Imaging Routine related condition in third trimester Expected: 11/15/2024, Expires: 11/15/2025 [facility] Work Phone: Comment on above: Expected: 11/15/2024 , Expires: 11/15/2025 Start: 11-08-2024 End: 11-08-2024 Patient encounter procedure 11/08/2024 9:30 AM EDT Office Visit [facility] [address] [facility] [address] [place] [address] Aye Saucedo MD [address] [place] [address] Tricia Rowland MD [address] [place] [address] [facility] Start: 10-31-2024 End: 10-31-2024 Patient encounter procedure 10/31/2024 8:00 AM EDT Appointment [facility] - [facility] [address] [place] [address] [facility] Start: 10-18-2024 End: 10-18-2024 Patient encounter procedure [facility] Comment on above: Arrived Start: 10-10-2024 Hemoglobin A1c measurement Diabetes: Hemoglobin A1C [facility] Start: 10-10-2024 End: 10-10-2024 Telemedicine consultation with patient 10/10/2024 11:30 AM EST Telemedicine Maternal- Medicine at [facility] [address] [place] [address] Clarke Modi MD [address] [place] [address] Maternal- Medicine at [facility] Start: 10-09-2024 End: 10-09-2024 Patient encounter procedure 10/09/2024 3:45 PM EST Office Visit [facility] [address] [place] [address] Awilda Delatorre DO [address] [place] [address] [facility] Start: 10-03-2024 End: 10-03-2024 Patient encounter procedure 10/03/2024 10:00 AM EST Appointment [facility] [address] [place] [address] [facility] Start: 09-28-2024 End: 09-28-2024 Patient encounter procedure [facility] Comment on above: Arrived Start: 09-25-2024 End: 09-25-2024 Patient encounter procedure 09/25/2024 8:30 AM EST Appointment [facility] [address] [place] [address] [facility] Start: 09-19-2024 End: 09-19-2024 Patient encounter procedure 09/19/2024 8:15 AM EST [facility] [address] [place] [address] Jacque Schneider MD [address] [place] [address] [facility] Start: 09-11-2024 End: 09-11-2024 Patient encounter procedure 09/11/2024 8:00 AM EST Office Visit Maternal- Medicine at [facility] [address] [place] [phone] Clarke Modi MD [address] [place] [address] Maternal- Medicine at [facility] Start: 09-08-2024 Hemoglobin A1c measurement Diabetes: Hemoglobin A1C [facility] Start: 08-30-2024 End: 08-30-2024 Patient encounter procedure 08/30/2024 4:30 PM EST Office Visit [facility] [address] [place] [phone] Darío Banuelos CN [address] [place] [address] [facility] Start: 08-23-2024 End: 08-23-2024 Telemedicine consultation with patient 08/23/2024 2:00 PM EST Telemedicine Maternal- Medicine at [facility] [address] [place] [phone] Ariella Roberto, MAID HOUSEKEEPER-LICENSED MARRIAGE AND FAMILY THERAPIST [address] [place] [address] Maternal- Medicine at [facility] Start: 08-14-2024 End: 11-12-2024 Protein creat ratio Protein creat ratio Lab Routine with type 2 diabetes mellitus in second trimester Expected: 08/14/2024 (Approximate), Expires: 11/12/2024 [facility] Comment on above: Expected: 08/14/2024 (Approximate), Expires: 11/12/2024 Start: 08-14-2024 End: 08-14-2024 Patient encounter procedure 08/14/2024 11:00 AM EST Office Visit Maternal- Medicine at [facility] [address] [facility] [place] [address] Svetlana Jack PA-C [address] [place] [address] M[facility]- Medicine at [facility] Start: 08-14-2024 End: 08-14-2024 ambulatory 08/14/2024 8:30 AM EST Support Visit Maternal- Medicine at [facility] [address] [place] [phone] Shauna Denny RN [address] [facility], [address] [place] [address], [place] [address] [facility], [address] [place] [address], [place] [address] Maternal- Medicine at [facility] Start: 08-03-2024 End: 08-03-2024 Patient encounter procedure 08/03/2024 8:30 AM EST Routine [facility] [address] [place] [phone] Darío Banuelos CN [address] [place] [address] Arrived [facility] Comment on above: Arrived Start: 07-10-2024 End: 07-10-2024 Patient encounter procedure 07/10/2024 3:45 PM EST Routine [facility] [address] [place] [address] Darío Banuelos, CNM [address] [place] [address] Arrived [facility] Comment on above: Arrived Start: 05-30-2024 Hemoglobin A1c measurement Diabetes: Hemoglobin A1C [facility] Start: 05-30-2024 End: 05-30-2024 Patient encounter procedure 05/30/2024 8:45 AM EDT Office Visit [facility] [address] [place] [address] Awilda Delatorre DO [address] [place] [address] [facility] 230 Start: 04-16-2024 Influenza vaccination N [facility] Start: 09-06-2019 DTaP,Tdap and Td Vaccines (8 - Td or Tdap) DTaP,Tdap and Td Vaccines (8 - Td or Tdap) [facility] Start: 04-16-2019 Influenza vaccination Flu vaccine (# 1) [place], [place] Start: 2016 Cervical cancer screen Cervical canc er screen [place], [place] Start: 2016 Screening for malign ant neoplasm of cervix Pap Smear [facility] Start: 2014 DTaP,Tdap and Td Vaccines (1 - Tdap) DTaP,Tdap and Td Vaccines (1 - Tdap) [facility] Start: 2014 Urine screening for protein Diabetes: Urine Protein Screening [facility] Start: 2013 Adult BMI Follow Up Plan Adult BMI Follow Up Plan [facility] Start: 2013 Adult BMI Screening Adult BMI Screen ing [facility] Start: 2013 Diabetic foot examination Diabetic Foot Exam [facility] Start: 2011 Chlamydia screen Chlamydia screen [place], [place] Start: 2010 HIV screen HIV screen [place], [place] Start: 2007 Depression Screening Depression Scre ening [facility] Start: 2007 Tobacco Screening Tobacco Screening [facility] Start: 2006 DTaP/Tdap/Td vaccine (1 - Tdap) DTaP/Tdap/Td vaccine (1 - Tdap) [place], [place] Start: 2006 HPV vaccine (1 - Fem tarun 2-dose series) HPV vaccine (1 - Female 2-dose series) [place], [place] Start: 2005 Glaucoma screening Diabetes: R etinopathy Screening [facility] Start: 1996 Varicella Vaccine (1 of 2 - 2-dose childhood series) Varicella Vaccine (1 of 2 - 2-dose childhood series) [place], [place] Start: 1995 Glaucoma screening Diabetic Op hthalmology Exam [facility] Start: 1995 Urine screening for protein Urine Microalbumin [facility] End: 08-14-2025 Comprehensive metabolic 2000 panel - Serum or Plasma Comprehensive metabolic panel Lab Routine with type 2 diabetes mellitus in second trimester 1 Occurrences starting 08/14/2024 until 08/14/2025 [facility] Work Phone: Comment on above: 1 Occurrences starti ng 08/14/2024 until 08/14/2025 End: 08-14-2025 ECG 12 lead ECG 12 lead ECG Routine with type 2 diabetes mellitus in second trimester Long Q-T syndrome 1 Occurrences starting 08/14/2024 until 08/14/2025 [facility] Comment on above: 1 Occurrences starti ng 08/14/2024 until 08/14/2025 End: 08-14-2025 Thyroid profile includes TSH FT4 Thyroid profile includes TSH FT4 Lab Routine with type 2 diabetes mellitus in second trimester 1 Occurrences starting 08/14/2024 until 08/14/2025 [facility] Comment on above: 1 Occurrences starti ng 08/14/2024 until 08/14/2025 Immunizations Immunization Date Immunization Notes Care Provider Marilee hicks 09-06-2009 tetanus toxoid, redu keron diphtheria toxoid, and acellular pertussis vaccine, adsorbed Darío Floro [facility] Work Phone: [facility] 08-25-2007 meningococcal polysaccharide (groups A, C, Y and W-135) diphtheria toxoid conjugate vaccine (MCV4P) Darío [facility] Work Phone: [facility] 08-25-2007 tetanus toxoid, redu keron diphtheria toxoid, and acellular pertussis vaccine, adsorbed Darío [facility] Work Phone: [facility] 08-25-2007 varicella virus vaccine Johnston gabbie Alyo CN Work Phone: [facility] 09-06-2000 diphtheria, tetanus toxoids and acellular pertussis vaccine, unspecified formulation Darío Floro CN Work Phone: [facility] 09-06-2000 measles, mumps and r ubella virus vaccine Darío Floro CNM Work Phone: [facility] 09-06-2000 poliovirus vaccine, unspecified formulation Darío Floro CN Work Phone: [facility] 12-24-1996 varicella virus vaccine Madeline gabbie Floro CN Work Phone: [facility] 10-12-1996 diphtheria, tetanus toxoids and acellular pertussis vaccine, unspecified formulation Darío Floro CNM Work Phone: [facility] 10-12-1996 haemophilus influenz ae type b vaccine, conjugate unspecified formulation Darío Floro CN Work Phone: [facility] 10-12-1996 measles, mumps and r ubella virus vaccine Darío Floro CN Work Phone: [facility] 02-25-1996 diphtheria, tetanus toxoids and acellular pertussis vaccine, unspecified formulation Darío Floro CN Work Phone: [facility] 02-25-1996 haemophilus influenz ae type b vaccine, conjugate unspecified formulation Darío Floro CN Work Phone: [facility] 02-25-1996 hepatitis B vaccine, pediatric or pediatric/adolescent dosage Darío Floro CN Work Phone: [facility] 02-25-1996 poliovirus vaccine, unspecified formulation Darío Floro CNM Work Phone: [facility] 1995 diphtheria, tetanus toxoids and acellular pertussis vaccine, unspecified formulation Darío Floro CNM Work Phone: [facility] 1995 haemophilus influenz ae type b vaccine, conjugate unspecified formulation Darío Floro CN Work Phone: [facility] 1995 poliovirus vaccine, unspecified formulation Darío Floro CNM Work Phone: [facility] 1995 diphtheria, tetanus toxoids and acellular pertussis vaccine, unspecified formulation Darío Floro CNM Work Phone: [facility] 1995 haemophilus influenz ae type b vaccine, conjugate unspecified formulation Darío Floro CNM Work Phone: [facility] 1995 hepatitis B vaccine, pediatric or pediatric/adolescent dosage Darío Floro CNM Work Phone: [facility] 1995 poliovirus vaccine, unspecified formulation Darío Floro CNM Work Phone: [facility] 1995 hepatitis B vaccine, pediatric or pediatric/adolescent dosage Darío Floro CNM Work Phone: [facility] Payers Date Payer Category Payer Unknown BCBS BCBS OUT OF STATE xxxxxxxxxxxx 2019-Present [address] [place] [address] xxxxxxxxxxxx [id number] 2019 [facility] BCBS [id number] 2019 [facility] Managed Care - Other [id number] 2019 Unknown [id number] 2016 Unknown [id number] 1995 Unknown [id number] 2.16.840.1.050807.3.579.2. 173 1995 Unknown [id number] 2.16.840.1.991845.3.579.2. 1286 1995 Unknown [id number] 2.16.840.1.780523.3.579.2. 1286 1995 Unknown [id number] 2.16.840.1.352299.3.579.2. 1286 1995 Unknown [id number] 2.16.840.1.458625.3.579.2. 1286 1995 Unknown [id number] 2.16.840.1.997504.3.579.2. 1286 1995 Unknown [id number] 2.16.840.1.977952.3.579.2. 1286 1995 Unknown [id number] 2.16.840.1.840837.3.579.2. 1286 1995 Unknown [id number] 2.16.840.1.302287.3.579.2. 1286 1995 Unknown [id number] 2.16.840.1.009706.3.579.2. 1286 1995 Unknown [id number] 2.16.840.1.992396.3.579.2. 1286 1995 Unknown [id number] 2.16.840.1.992231.3.579.2. 1286 1995 Unknown [id number] 2.16.840.1.440536.3.579.2. 1259 1995 Unknown [id number] 2.16.840.1.138204.3.579.2. 1259 1995 Unknown [id number] 2.16.840.1.679885.3.579.2. 9 1995 Unknown [id number] 2.16.840.1.599930.3.579.2. 1258 1995 Unknown [id number] 2.16.840.1.739981.3.579.2. 1258 1995 Unknown [id number] 2.16.840.1.894886.3.579.2. 1258 1995 Unknown [id number] 2.16.840.1.971527.3.579.2. 1258 1995 Unknown [id number] 2.16.840.1.262050.3.579.2. 1258 1995 Unknown [id number] 2.16.840.1.198028.3.579.2. 1258 1995 Unknown [id number] 2.16.840.1.161653.3.579.2. 1258 1995 Unknown [id number] 2.16.840.1.785177.3.579.2. 1258 1995 Unknown [id number] 2.16.840.1.732231.3.579.2. 1258 1995 Unknown [id number] 2.16.840.1.252793.3.579.2. 1258 1995 Unknown [id number] 2.16.840.1.136082.3.579.2. 1258 1995 Unknown [id number] 2.16.840.1.359916.3.579.2. 1258 1995 Unknown [id number] 2.16.840.1.378689.3.579.2. 1258 1995 Unknown [id number] 2.16.840.1.401490.3.579.2. 1258 1995 Unknown [id number] 2.16.840.1.326283.3.579.2. 1258 1995 Unknown [id number] 2.16.840.1.752762.3.579.2. 1259 1995 Unknown [id number] 2.16.840.1.052989.3.579.2. 1259 1995 Unknown [id number] 2.16.840.1.289820.3.579.2. 1259 1995 Unknown [id number] 2.16.840.1.134131.3.579.2. 1259 Social History Date Type Detail Facility Tobacco smoking stat us MNIS Unknown if ever smoked [facility] Start: 1995 Sex Assigned At Not on file [facility] Start: 02-10-2023 End: 07-25-2024 Tobacco smoking status [...] to any clubs or organizations such as buddhist groups, unions, fraternal [...] - these days [OSQ] Not at all [facility] (I/We) worried wheth er (my/our) food would run out before (I/we) got money to buy more. Never true [facility] Start: 02-11-2023 Alcohol Comment 3 or 4 drinks on typical day / monthly or less. Caffeine: 1-2 cups/day [facility] Start: 1995 Sex assigned at Female [facility] Start: 02-08-2023 Gender identity Identifies as female gender (finding) [facility] Start: 05-16-2024 [facility] Start: 08-14-2024 End: 11-09-2024 Alcoholic beverage intake Ex-drinker (finding) [facility] Start: 03-19-2015 End: 07-25-2024 Sex Female (finding) [facility] Medical Equipment Procedure Code Equipment Code Equipment Origin al Text Equipment Identifier Dates [id number] Start: 11-29-2023 End: 11-28-2024 Check urine for ketones if blood sugar/glucose 200 or above daily as needed. Use as directed. [id number] Start: 08-14-2024 USE DIRECTED FIVE TIMES DAILY [id number] Start: 10-03-2024 Functional Status Date Assessment Result Facility 01-18-2025 Patient Health Quest ionnaire 2 item (PHQ-2) [Reported] [facility] 12-07-2024 Patient Health Quest ionnaire 2 item (PHQ-2) [Reported] [facility] 10-09-2024 Patient Health Quest ionnaire 2 item (PHQ-2) [Reported] [facility] Clinical Notes 05-03-2024 to 01-29-2025 CATHIE Peralta - 01/29/2025 4:30 PM EDTCATHIE Peralta - 01/22/2025 4:30 PM Sal Delatorre DO - 01/18/2025 10:17 AM Sal Delatorre, - 01/18/2025 8:30 AM EDT Note Date & Type Note Facility 01-29-2025 History of Presen t illness Narrative Subjective No chief complaint on file. Reginaldphylicia Reyes is a 29 y.o. at 37w0d [...] type 2 diabetes mellitus in third trimester ([facility]) Type 2 diabetes mellitus treated with insulin ([facility]) Encounter for care of first , third trimester ([facility]) Continue vitamin. Labs reviewed. GBS negative Expected mode of delivery Follow up in 1 week for a routine visit. documented in this encounter [facility] 01-22-2025 History of Presen [...] Type 2 diabetes mellitus treated with insulin ([facility]) Glucose log reviewed, patient states Dr Crowley adjusted her insulin as her glucose levels were going low. Med list is current in [facility]. Continue vitamin. Labs reviewed. GBS taken. Expected mode of delivery vaginal Follow up in 1 week for a routine visit. documented in this encounter [facility] 01-18-2025 History of Presen [...] in the evening (1000 MG TABS) Labs [facility] HEMOGLOBIN A1C/HEMOGLOBIN.TOTAL:MFR:PT:BLD: QN: 6.1 Outpatient prescription Medication marked as long-term Patient taking a medication differently The ASCVD Risk score (Edilson DK, et [...] the patient today. documented in this encounter [facility] 01-15-2025 History of Presen [...] a routine visit. documented in this encounter [facility] 01-09-2025 History of Presen [...] a routine visit. documented in this encounter [facility] 01-01-2025 History of Presen [...] little bit. Patient states her testing at [facility] was normal on Wednesday, she has had [...] a routine visit. documented in this encounter [facility] 12-26-2024 History of Presen [...] will do all nst's and bpp's at [place] per Dr Sam Objective Physical Exam Weight: [...] a routine visit. documented in this encounter [facility] 12-25-2024 History of Presen [...] nursing note reviewed. Exam conducted with a dairy bar manager present. Vitals: Estimated body mass index is [...] resulted Patient presents today for referral from [facility] due to Type 2 Diabetes and . Patient is setup for NST/BPP Bi-Weekly/Weekly at [facility]'s office. Patient voiced that she was seen at [facility] for anatomy Scan. Advised patient that it is preferred to have NST/BPP at [facility] for co-management in . Patient is agreeable with having location changed. Order will be given to patient today to have setup at [facility]. Discussed delivery with patient and if sugars are controlled well with insulin then she will be able to delivery at 39 weeks gestation, but if sugars are not well controlled then delivery would be recommended at 38 weeks to prevent issues with placenta. Patient is currently taking Aspirin 81mg daily. FHT 145, patient to continue care with [facility] and reach out to office with any concerns. Documented by Estelle Hughes LPN on behalf of: Henry Sam DO documented in this encounter [facility] 12-11-2024 History of Presen [...] during . Managed by Awilda Crowley in [place]. Did see MFM Objective Physical Exam Expected [...] a routine visit. documented in this encounter [facility] 12-07-2024 History of Presen [...] in the evening (1000 MG TABS) Labs [facility] HEMOGLOBIN A1C/HEMOGLOBIN.TOTAL:MFR:PT:BLD: QN: 5.7 Outpatient prescription Medication [...] the patient today. documented in this encounter [facility] 11-15-2024 History of Presen [...] a routine visit. documented in this encounter [facility] 11-08-2024 History of Presen t illness Narrative Reginald Queenie Eric Date of visit: 11/08/2024 Date of : 1995 Age: 29 y.o. Patient Active Problem List Diagnosis Abnormal glucose Insulin resistance Mixed hyperlipidemia PCOS (polycystic ovarian syndrome) Type 2 diabetes mellitus without complication ([facility]) Pre-existing type 2 diabetes mellitus during in [...] by mouth in the morning. blood-glucose sensor (Biotronics3DCOM G7 SENSOR) device Use to monitor blood [...] Chief Complaint Patient presents with 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 - ref by [facility] for long QT [...] 460 milliseconds. She followed up with a director of cardiopulmonary services but no intervention was performed since the [...] Past Medical History: Diagnosis Date Diabetes mellitus ([facility]) Hyperlipidemia Insulin resistance Long Q-T syndrome Prolonged [...] Resource Strain: Low Risk (06/07/2024) Received from [facility] Overall Financial Resource Strain (CARDIA) Difficulty of Paying Living Expenses: Not hard at all Food Insecurity: No Food Insecurity (11/08/2024) Hunger Screening Food Insecurity - Worry: Never True Food Insecurity - Inability: Never True Transportation Needs: No Transportation Needs (06/07/2024) Received from [facility] PRAPARE - Transportation Lack of Transportation (Medical): No Lack of Transportation (Non-Medical): No Physical Activity: Sufficiently Active (06/07/2024) Received from [facility] Exercise Vital Sign Days of Exercise per Week: 5 days Minutes of Exercise per Session: 30 min Stress: No Stress Concern Present (06/07/2024) Received from [facility] [employer] - Occupational Stress Questionnaire Feeling of Stress : Not at all Social Connections: Socially Integrated (06/07/2024) Received from [facility] Social Connection and Isolation Panel [NHANES] Frequency of Communication with Friends and Family: More than three times a week Frequency of Social Gatherings with Friends and Family: Three times a week Attends Yazdanism Services: More than 4 times per year Active Member of Clubs or Organizations: Yes Attends Club or Organization Meetings: More than 4 times per year Marital Status: Interpersonal Safety: Not At Risk (04/09/2023) Received from [facility], [facility] Humiliation, Afraid, Rape, and Kick questionnaire Fear of Current or Ex-Partner: No Emotionally Abused: No Physically Abused: No Sexually Abused: No Housing Instability: Low Risk (06/07/2024) Received from [facility] Housing Stability Vital Sign [...] - [facility] - [facility]iology - [place], [place] - [facility] EKG 2. Hx of prolonged Q-T [...] Referring Physician: Aye Saucedo MD [address] [place] [address] documented in this encounter [facility] 11-07-2024 Miscellaneous Notes [employer] MESSAGE REMINDER SENT TO PT TO REMIND OF PPC APPT. documented in this encounter [facility] 11-07-2024 Telephone encounter Note [employer] MESSAGE REMINDER SENT TO PT TO REMIND OF PPC APPT. [facility] 10-18-2024 History of Presen t illness [...]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 tel: fax: Referral ID Status Reason Start Date Expiration Date V isits Requested Visits Authorized [id number] Closed Specialty Services Required 12/20/2024 06/18/2025 1 1 Care Teams (unrecognized sec tion and content) Inductor Tester Relationship Specialty Start Date End Date Unallocated, Noms Provider, [address] [place] [address] PCP - General 04/16/23 Awilda Delatorre DO [address] [place] [address] PCP - [employer] [employer] 06/16/23 Darío Banuelos CN [address] [place] [address] Obstetrics and Gynecology 02/10/23 Inductor Tester Relationship Specialty Start Date End Date Unallocated, Noms ProviderMD [address] [place] [address] PCP - General 04/16/23 Awilda Delatorre, DO [address] [place] [address] PCP - [employer] [employer] 06/16/23 Darío Banuelos CN [address] [place] [address] Obstetrics and Gynecology 02/10/23 Inductor Tester Relationship Specialty Start Date End Date Unallocated, Noms MD Dian [address] [place] [address] PCP - General 04/16/23 Awilda Delatorre, DO [address] [place] [address] PCP - [employer] 06/16/23 Darío Banuelos CN [address] [place] [address] Obstetrics and Gynecology 02/10/23 Inductor Tester Relationship Specialty Start Date End Date Unallocated, Danay Biggs MD [address] [place] [address] PCP - General 04/16/23 Awilda Delatorre, DO [address] [place] [address] PCP - [employer] [employer] 06/16/23 Darío Banuelos CATHIEBrooks [address] [facility] [place] [address] Obstetrics and Gynecology 02/10/23 Inductor Tester Relationship Specialty Start Date End Date Darío Banuelos APRN-CN [address] [place] [address] PCP - General Nurse Boat Joiner Helper 04/15/18 Inductor Tester Relationship Specialty Start Date End Date Darío Banuelos MAID HOUSEKEEPER-CNM [address] [facility] [place] [address] PCP - General Nurse Boat Joiner Helper 04/15/18 Inductor Tester Relationship Specialty Start Date End Date Darío Banuelos APRN-CN [address] [facility] [place] [address] PCP - General Nurse Boat Joiner Helper 04/15/18 Inductor Tester Relationship Specialty Start Date End Date Darío Banuelos APRN-CN [address] [facility] [place] [address] PCP - General Nurse Boat Joiner Helper 04/15/18 Inductor Tester Relationship Specialty Start Date End Date Darío Banuelos MAID HOUSEKEEPER-CN [address] [facility] [place] [address] PCP - General Nurse Boat Joiner Helper 04/15/18 Inductor Tester Relationship Specialty Start Date End Date Unallocated, Noms MD Dian [address] [place] [address] PCP - General 04/16/23 Awilda Delatorre, [address] [place] [address] PCP - [employer] 06/16/23 Darío Banuelos CNM [address] [place] [address] Obstetrics and Gynecology 02/10/23 Inductor Tester Relationship Specialty Start Date End Date Darío Banuelos MAID HOUSEKEEPER-CN [address] [place] [address] PCP - General Nurse Boat Joiner Helper 04/15/18 Inductor Tester Relationship Specialty Start Date End Date Darío Banuelos MAID HOUSEKEEPER-[facility] [address] [place] [address] PCP - General Nurse Boat Joiner Helper 04/15/18 Inductor Tester Relationship Specialty Start Date End Date Darío Banuelos MAID HOUSEKEEPER-[facility] [address] [place] [address] PCP - General Nurse Boat Joiner Helper 04/15/18 Inductor Tester Relationship Specialty Start Date End Date Darío Banuelos MAID HOUSEKEEPER-[facility] [address] [place] [address] PCP - General Nurse Boat Joiner Helper 04/15/18 Inductor Tester Relationship Specialty Start Date End Date Unallocated, Noms MD Dian [address] [place] [address] PCP - General 04/16/23 Awilda Delatorre, [address] [place] [address] [place] [address] PCP - [employer] 06/16/23 Darío Banuelos CNM [address] [place] [address] Obstetrics and Gynecology 02/10/23 Inductor Tester Relationship Specialty Start Date End Date Unallocated, Noms Provider, [address] [facility] [place] [address] PCP - General 04/16/23 Awilda Delatorre, DO [address] [place] [address] PCP - [employer] [employer] 06/16/23 Darío Banuelos CNM [address] [place] [address] Obstetrics and Gynecology 02/10/23 Inductor Tester Relationship Specialty Start Date End Date Unallocated, Noms ProviderMD [address] [place] [address] PCP - General 04/16/23 Awilda Delatorre, DO [address] [facility] [address] [place] [address] PCP - [place] [employer] 06/16/23 Darío Banuelos CNM [address] [place] [address] Obstetrics and Gynecology 02/10/23 Inductor Tester Relationship Specialty Start Date End Date Darío Banuelos APRN-CNM [address] [place] [facility] [place] [address] PCP - General Nurse Boat Joiner Helper 04/15/18 Inductor Tester Relationship Specialty Start Date End Date Darío Banuelos APRN-CNM [address] [place] [facility] [place] [address] PCP - General Nurse Boat Joiner Helper 04/15/18 Inductor Tester Relationship Specialty Start Date End Date Unallocated, Francisco Javiers ProviderMD [address] [facility] [place] [address] PCP - General 04/16/23 Awilda Delatorre, DO [address] [place] [address] PCP - [employer] 06/16/23 Darío Banuelos CN [address] [place] [address] Obstetrics and Gynecology 02/10/23 Inductor Tester Relationship Specialty Start Date End Date Unallocated, Danay Biggs MD [address] [place] [address] PCP - General 04/16/23 Awilda Delatorre, DO [address] [place] [address] PCP - [employer] Commercial 06/16/23 Darío Banuelos CN [address] [place] [facility] [place] [address] Obstetrics and Gynecology 02/10/23 Inductor Tester Relationship Specialty Start Date End Date Unallocated, Danay Biggs MD [address] [place] [address] PCP - General 04/16/23 Awilda Delatorre, DO [address] [place] [address] PCP - [employer] [employer] 06/16/23 Darío Banuelos CNM [address] [place] [address] Obstetrics and Gynecology 02/10/23 Inductor Tester Relationship Specialty Start Date End Date Unallocated, Danay iBggs MD [address] [place] [place] [address] PCP - General 04/16/23 Darío Banuelos CNM [address] [place] [address] Obstetrics and Gynecology 02/10/23 Inductor Tester Relationship Specialty Start Date End Date Unallocated, Danay Biggs MD [address] [place] [place] [address] PCP - General 04/16/23 Darío Banuelos CNM [address] [place] [address] Obstetrics and Gynecology 02/10/23 Inductor Tester Relationship Specialty Start Date End Date Unallocated, Danay Biggs MD [address] [place] [address] PCP - General 04/16/23 Darío Banuelos CNM [address] [place] [address] Obstetrics and Gynecology 02/10/23 Inductor Tester Relationship Specialty Start Date End Date Unallocated, Danay Biggs MD [address] [place] [address] PCP - General 04/16/23 Darío Banuelos CNM [address] [place] [address] Obstetrics and Gynecology 02/10/23 Inductor Tester Relationship Specialty Start Date End Date Unallocated, Danay Biggs MD [address] [place] [place] [address] PCP - General 04/16/23 Darío Banuelos CNM [address] [place] [address] Obstetrics and Gynecology 02/10/23 Inductor Tester Relationship Specialty Start Date End Date Unallocated, Danay Biggs MD [address] [place] [address] PCP - General 04/16/23 Darío Banuelos CNM [address] [place] [address] Obstetrics and Gynecology 02/10/23 Inductor Tester Relationship Specialty Start Date End Date Unallocated, Danay Biggs MD [address] [place] [address] PCP - General 04/16/23 Darío Banuelos CNM [address] [place] [address] Obstetrics and Gynecology 02/10/23 Inductor Tester Relationship Specialty Start Date End Date Unallocated, Danay Biggs MD [address] [place] [address] PCP - General 04/16/23 Darío Banuelos CN [address] [place] [address] Obstetrics and Gynecology 02/10/23 Inductor Tester Relationship Specialty Start Date End Date Unallocated, Danay Biggs MD [address] [place] [address] PCP - General 04/16/23 Awilda Delatorre DO [address] [place] [address] PCP - [employer] Commercial 06/16/23 Darío Banuelos CNM [address] [facility] [place] [address] Obstetrics and Gynecology 02/10/23 Inductor Tester Relationship Specialty Start Date End Date Unallocated, Noms Dian, [address] [place] [address] PCP - General 04/16/23 Awilda Delatorre DO [address] [facility] [address] [place] [address] PCP - [place] Commercial 06/16/23 Darío Banuelos CNM [address] [facility] [place] [address] Obstetrics and Gynecology 02/10/23 FOR RECORDS PERTAINING [...] BE BASED ON THE PRIMARY CLINICAL RECORDS. [facility] [employer] [facility]. provides no warranty or guarantee of the accuracy or completeness of information in this document.
--- OUTSIDE RECORDS SUMMARY | 2025-02-08 22:02 | XMS_ITS | Encounter Summary ---
Author Organization [facility] Address [address] [place] [address] Care Team Providers Care Receiver Setter Name Role Phone Flaquita Banuelos CNM Unavailable [phone] Unallocated, Noms Provider Primary Care Provi mart Encounter Details Date Type Department Care Team (Late st Contact Info) Description 01/29/2025 Bamboo flowsheet [facility] [address] [place] [phone] Flaquita Banuelos, CNM [address] [place], [place] [id number] Social History Tobacco Use Types Packs/Day Years [...] Recorded Patient Health Questionnaire-2 Score 0 01/18/2025 [facility] [...] time in the past 12 m [facility], were you homeless or living in a [...] EDT Routine [facility] [address] [place] [phone] Flaquita Banuelos CNM [address] [facility] [place] [address] 02/22/2025 1:30 PM EDT Telemedicine [facility] [address] [place] [phone] Flaquita Banuelos CNM [facility] [place], [place] [id number] 04/19/2025 10:45 AM EDT Office Visit [facility] [address] [place] [address] Awilda Crenshaw, DO [address] [place] [address] documented as of this encounter Visit Diagnoses Not on filedocumented in this encounter Care Teams Receiver Setter Relationship Specialty Start Date End Date Unallocated, Noms MD Dian [address] [place] [address] PCP - General 04/16/23 Flaquita Banuelos CNM [address] [place] [id number] Obstetrics and Gynecology 02/10/23 documented as of this encounter
--- OUTSIDE RECORDS SUMMARY | 2025-02-08 22:02 | XMS_ITS | Encounter Summary ---
Author Organization [facility] Address [address] [place] [address] Care Team Providers Care Non Licensed Nuclear Plant Operator Name Role Phone Flaquita Banuelos CNM Unavailable [phone] Unallocated, Noms Provider Primary Care Provi mart Encounter Details Date Type Department Care Team (Late st Contact Info) Description 02/02/2025 [facility] [address] [place] [address] Awilda Crenshaw, DO [address] [place] [address] Social History Tobacco Use Types Packs/Day Years [...] Recorded Patient Health Questionnaire-2 Score 0 01/18/2025 [facility] [...] PM EDT Routine [facility] [address] [place] [address] Flaquita Banuelos CNM [address] [place], [place] [phone] 02/22/2025 1:30 PM EDT Telemedicine [facility] [address] [place] [phone] Flaquita Banuelos CNM [address] [place], [place] [id number] 04/19/2025 10:45 AM EDT Office Visit [facility] [address] [place] [address] Awilda Crenshaw, DO [address] [place] [address] documented as of this encounter Visit Diagnoses Not on filedocumented in this encounter Care Teams Non Licensed Nuclear Plant Operator Relationship Specialty Start Date End Date Unallocated, Noms MD Dian [address] [place] [address] PCP - General 04/16/23 Flaquita Banuelos CNM [facility] [place], [place] [id number] Obstetrics and Gynecology 02/10/23 documented as of this encounter
[2025-02-08 22:36] LABS: Hematocrit 33.8 % (36.0-48.0); Hemoglobin 11.4 g/dL (12.0-16.0); Mean Corpuscular HGB Conc 33.7 g/dL (29.9-35.2); Mean Corpuscular Hemoglobin 28.4 pg (26.7-34.0); Mean Corpuscular Volume 84.3 fL (81.0-99.0); Mean Platelet Volume 10.6 fL (9.5-13.5); Platelet Count 277 10^3/uL (150-450); Red Blood Count 4.01 10^6/uL (4.20-5.40); Red Cell Distribution Width 13.9 % (11.0-15.0); White Blood Count 10.2 10^3/uL (4.0-11.0)
[2025-02-08 22:47] LABS: Amphetamine Screen Urine NEGATIVE (NEGATIVE); Barbiturates Screen Urine NEGATIVE (NEGATIVE); Benzodiazepines Screen Urine NEGATIVE (NEGATIVE); Buprenorphine Screen Urine NEGATIVE (NEGATIVE); Cannabinoid Screen Urine NEGATIVE (NEGATIVE); Cocaine Screen Urine NEGATIVE (NEGATIVE); Methadone Screen Urine NEGATIVE (NEGATIVE); Methamphetamines Screen Urine NEGATIVE (NEGATIVE); Opiate Screen Urine NEGATIVE (NEGATIVE); Oxycodone Screen Urine NEGATIVE (NEGATIVE); Phencyclidine Screen Urine NEGATIVE (NEGATIVE); Tricyclic Antidepressant Urine NEGATIVE (NEGATIVE)
[2025-02-08] MEDS: DINOPROSTONE 10 MG VAG INSERT.ER VAGINAL (22:58)
[2025-02-08 23:02] VITALS: BP 127/75; PULSE 81
--- NOTE | 2025-02-08 23:03 | PM.OBHP ---
OB - H&P: HPI History of Present Illness Chief complaint: INDUCTION : 1 Para: 0 Gestational age based on last menstrual period: 38.3 Indications for induction: other (type 2 diabetic requiring insulin with ) Comments: patient has instructions from her diabetic dr on how much insulin to take after delivery History of Present Dating criteria: LMP confirmed by 1st trimester US care: good care Ultrasounds: normal 1st trimester US and normal mid trimester US complications comment: Type 2 diabetes requiring insulin with Labs Blood type: A (+) positive Rubella: immune RPR/VDLR: nonreactive GBS status: negative HBsAG: negative Review of Systems ROS Status of ROS: 10 or more systems reviewed and unremarkable except as noted in history and below PFSH PFS Social History Smoking status: Never smoker Meds Home Medications and Allergies Home Medications ?Medication ?Instructions ?Recorded ?Confirmed ?Type hydrocodone 5 mg-acetaminophen 325 1 tab PO Q6H PRN pain 3 days #12 10/18/23 Rx mg tablet tabs insulin NPH isoph U-100 human 100 unit subcut 10/18/23 History unit/mL subcutaneous suspension (Novolin N NPH U-100 Insulin isophane) ketorolac 10 mg tablet 10 mg PO TID PRN pain #10 tabs 10/18/23 Rx metformin 1,000 mg tablet mg 10/18/23 History pen needle, diabetic 31 gauge x 10/18/23 10/18/23 History 3/16 (BD Ultra-Fine Mini Pen Needle) Allergies Allergy/AdvReac Type Severity Reaction Status Date / Time No Known Drug Allergies Allergy Verified 01/30/25 07:18 Exam Constitutional Vital Signs, click to edit/add: Last Vital Signs Pulse 81 02/08/25 23:02 BP 127/75 02/08/25 23:02 Documenting provider has reviewed patient's vital signs: yes Common normals: no apparent distress General appearance: cooperative, comfortable, well kempt and well developed Orientation/consciousness: Yes awake, Yes oriented to person, Yes oriented to place and Yes oriented to time HENMT Common normals: normocephalic Eye Common normals: EOMs intact bilaterally General eye: normal appearance of both eyes Alignment: alignment normal Eyelid: eyelids normal Neck & C-Spine Common normals: full ROM General: normal visual inspection Lymph Lymphatic: no lymphadenopathy noted Chest Common normals: inspection of chest normal Respiratory Common normals: normal respiratory effort, no retractions, no use of accessory muscles, clear to auscultation bilaterally and percussion normal Effort & inspection: able to speak in complete sentences Auscultation: clear to auscultation bilaterally Cardio Common normals: regular rate and regular rhythm Rate: regular rate Rhythm: regular rhythm GI Common normals: Normal to inspection, nondistended, normoactive bowel sounds present, soft to palpation, non-tender and no hepatosplenomegaly Inspection: normal to inspection and central obesity Auscultation: normoactive bowel sounds Palpation: soft Rectal Exam - Female: deferred Common normals: no CVA tenderness Back & Pelvis Common normals: no CVA tenderness Thoracic spine/upper back: normal to inspection Lumbar spine/lower back: normal to inspection Extremity Common normals: normal to inspection and full ROM Neuro Common normals: oriented x3 Sensorium/orientation: awake, alert, oriented to person, oriented to place and oriented to time Psych Common normals: mental status grossly normal, thought process normal, cooperative, affect normal, speech normal, activity/motor behavior normal, denies hallucinations, denies homicidal ideation and denies suicidal ideation Appearance: grossly normal Attitude: calm Activity/motor behavior: appropriate eye contact Thought process: normal thought process Results Labs Labs: Short CBC 02/08/25 Range/Units 22:20 WBC 10.2 (4.0-11.0) 10^3/uL Hgb 11.4 L (12.0-16.0) g/dL Hct 33.8 L (36.0-48.0) % Plt Count 277 (150-450) 10^3/uL OB - A/P Assessment and Plan (1) Type 2 diabetes mellitus: Qualifiers: Diabetes mellitus long-term insulin use: without long-term use Diabetes mellitus complication status: without complication Qualified Code(s): E11.9 - Type 2 diabetes mellitus without complications (2) Term :
[2025-02-08 23:17] VITALS: BP 119/72; PULSE 74
[2025-02-08 23:33] VITALS: BP 115/60; PULSE 70
[2025-02-08 23:47] VITALS: BP 123/64; PULSE 73
[2025-02-09] VITALS (50 sets, daily range): BP systolic 104–152; BP diastolic 52–98; PULSE 63–101; TEMP 35.6–36.8
[2025-02-09] MEDS: LACTATED RINGER'S SOLUTION 1,000 ML 125 ML IV ×3 (13:02→21:35)
[2025-02-09] MEDS: OXYTOCIN/0.9 % SODIUM CHLORIDE 10 UNITS/500 ML PLAST..BAG 6 UNIT IV (13:15)
--- NOTE | 2025-02-09 16:15 | PM.EN ---
Event Note Event Note: CNM in room to assess patient. SVE 2-3/60/-2. AROM performed with sterile amni-hook with return of small amount of clear, odorless fluid. heart tones stable before, during and after ROM. Patient tolerated well.
--- NOTE | 2025-02-09 19:13 | PC.NURSE ---
1030- Pt blood glucose per Dexcom monitor following breakfast; 105.
--- NOTE | 2025-02-09 19:21 | W.PC.ACHO ---
Registration Status: ADM IN Primary Language: Preferred Language: Greek Report given to Kiet BENNETT at 1900. Care relinquished. Active Medications Generic Name Dose Route Start Last Admin Trade Name Brendon PRN Reason Stop Dose Admin Acetaminophen 1,000 mg 02/08/25 22:27 Acetaminophen 500 Mg Tablet PO Q6H PRN Pain Calcium Carbonate 500 mg 02/08/25 22:27 Calcium Carbonate 500 Mg (200mg Elemental) Tab Chew PO TID PRN Heartburn Carboprost Tromethamine 250 mcg 02/08/25 22:27 Carboprost Tromethamine 250 Mcg/Ml 1 Ml Vial IM 02/10/25 22:27 Q15M PRN Bleeding Diphenhydramine HCl 25 mg 02/09/25 11:42 Diphenhydramine Hcl 50 Mg/Ml Vial IV 02/10/25 11:42 Q6H PRN Itching Ephedrine Sulfate 5 mg 02/09/25 11:42 Ephedrine Sulfate 50 Mg/Ml Vial IV 02/10/25 11:42 Q5M PRN Blood Pressure - Low Tranexamic Acid 1,000 mg/ 110 mls @ 440 mls/hr 02/08/25 22:27 Sodium Chloride IV 02/10/25 22:27 ONCE PRN Uterine Bleeding Lactated Ringer's 1,000 mls @ 125 mls/hr 02/08/25 22:30 02/09/25 13:02 Lactated Ringers IV 125 mls/hr .Q8H FEDE Administration Oxytocin/Sodium Chloride 10 units in 500 mls @ 6 mls/hr 02/08/25 22:30 02/09/25 17:00 Pitocin 10 Unit/500 Ml-Ns IV 8 milliunit/min TITR FEDE 24 mls/hr Protocol Infusion 2 MILLIUNIT/MIN Oxytocin/Sodium Chloride 20 units in 1,000 mls @ 125 mls/hr 02/08/25 22:27 Pitocin 20 Unit/1,000 Ml-Ns IV Q8H PRN POST DELIVERY Ropivacaine/Sodium Chloride 400 mg in 200 mls @ 6 mls/hr 02/09/25 11:45 Naropin 0.2% 400 Mg/200 Ml Bag EPIDURAL Q24H FEDE Lidocaine 5 ml 02/08/25 22:27 Lidocaine Viscous 2% 15 Ml Solution TOPICAL 02/10/25 22:29 ONCE PRN Pain Lidocaine 1 ml 02/08/25 22:27 Lidocaine Hcl 1% 200 Mg/20 Ml Mdv INJ 02/10/25 22:29 ONCE PRN Pain Metformin HCl 1,000 mg 02/09/25 22:00 Metformin Hcl 500 Mg Tab.Er.24h PO QD FEDE Metformin HCl 500 mg 02/10/25 09:00 Metformin Hcl 500 Mg Tab.Er.24h PO QD FEDE Methylergonovine Maleate 0.2 mg 02/08/25 22:27 Methylergonovine Maleate 0.2 Mg/Ml Ampule IM 02/10/25 22:27 ONCE PRN Uterine Contractility/Contract Methylergonovine Maleate 0.2 mg 02/08/25 22:27 Methylergonovine Maleate 0.2 Mg Tablet PO 02/10/25 22:27 Q4H PRN Uterine Contractility/Contract Misoprostol 600 mcg 02/08/25 22:27 Misoprostol 100 Mcg Tablet PO 02/10/25 22:27 ONCE PRN Uterine Bleeding Misoprostol 800 mcg 02/08/25 22:27 Misoprostol 100 Mcg Tablet SL 02/10/25 22:27 ONCE PRN Uterine Bleeding Misoprostol 1,000 mcg 02/08/25 22:27 Misoprostol 100 Mcg Tablet ID 02/10/25 22:27 ONCE PRN Uterine Bleeding Nalbuphine HCl 20 mg 02/08/25 22:27 Nalbuphine Hcl 10 Mg/Ml Ampule IM Q4H PRN Pain Scale 7-10 Naloxone HCl 0.4 mg 02/09/25 11:42 Naloxone Hcl 0.4 Mg/Ml Vial IV 02/10/25 11:42 ONCE PRN Epidural Ondansetron HCl 4 mg 02/08/25 22:27 Ondansetron Pf 4 Mg/2 Ml Vial IV Q6H PRN Nausea And Vomiting Ondansetron HCl 4 mg 02/08/25 22:27 Ondansetron 4 Mg Rapdis Tablet SL Q6H PRN Nausea And Vomiting Oxytocin 10 unit 02/08/25 22:27 Oxytocin 10 Unit/Ml Vial IM 02/10/25 22:27 ONCE PRN Bleeding Zolpidem Tartrate 5 mg 02/08/25 22:27 Zolpidem Tartrate 5 Mg Tablet PO HS PRN Sleep Diet Category Date Time Status Regular Consistency Diet Diet 02/09/25 08:04 Active IV Insertion/Site Date of IV Line Insertion [ 02/08/25 Short PIV (<1.75 in) 20g right Forearm] IV Insertion Time [Short PIV ( 22:15 <1.75 in) 20g right Forearm] Neurology Patient orientation (short person,place,time,situation list)
[2025-02-09] MEDS: ROPIVACAINE HCL/PF 400 MG/200 ML PREMIX 6 MG EPIDURAL (21:12)
[2025-02-09] MEDS: METFORMIN HCL 500 MG TAB.ER.24H 1000 MG PO (22:24)
[2025-02-10] VITALS (94 sets, daily range): BP systolic 97–155; BP diastolic 52–93; PULSE 60–124; TEMP 35.6–37.2; O2SAT 96–98
[2025-02-10] MEDS: OXYTOCIN/0.9 % SODIUM CHLORIDE 10 UNITS/500 ML PLAST..BAG 60 UNIT IV (03:02)
[2025-02-10] MEDS: LACTATED RINGER'S SOLUTION 1,000 ML 125 ML IV ×3 (05:00→11:00)
--- NOTE | 2025-02-10 09:15 | PM.EN ---
Event Note Event Note: CNM to room to assess patient. Patient currently has category 1 tracing after pitocin turned off. Patient was having repetitive lates with the pitocin during the night as reported to me by nurse. Patient SVE is unchanged and remains at 3 cm which is unchanged since yesterday morning. I did discuss with patient a primary section due to no cervical change and the late decelerations. Patient is in agreement and consents for primary low transverse section. Dr Zurita notified at 0844 patients progress, EFM tracing, no cervical change. He is in agreement for the C/S. Patient currently has no pitocin, category 1 tracing, and section called for 10:00 am
[2025-02-10] MEDS: METOCLOPRAMIDE HCL 10 MG/2 ML VIAL IVP (09:39)
[2025-02-10] MEDS: FAMOTIDINE/PF 20 MG/2 ML VIAL IV (09:39)
[2025-02-10] MEDS: CITRIC ACID/SODIUM CITRATE 30 ML SOLUTION ORACIT SHOHL'S SOLN PO (09:39)
[2025-02-10] MEDS: CARBOPROST TROMETHAMINE 250 MCG/ML 1 ML VIAL IM (10:11)
[2025-02-10] MEDS: CEFAZOLIN SODIUM/DEXTROSE,ISO 2 GM/50 ML PIGGYBACK IV ×2 (10:18→16:29)
[2025-02-10] MEDS: METHYLERGONOVINE MALEATE 0.2 MG/ML AMPULE IM (10:52)
--- NOTE | 2025-02-10 11:21 | P.OBPRC_ITS ---
Procedure Pre-op/Post-op diagnoses: Pre-Op/Post-Op Diagnoses Preop diagnosis: Intrauterine at 38 weeks and 3 days failed labor induction nonreassuring strip. Postop diagnosis: The same delivered. Operation Date: 02/10/25 10:00 <No data on this case meets the specified criteria> Procedure: Procedures Operation Date: 02/10/25 10:00 Actual Procedure Side Surgeon p Not Applicable Giovanni Zurita MD Clinical Office Technician: DARÍO NANCE Estimated blood loss (mL): 750 Disposition: PACU Anesthesia type: Spinal Complications: None Narrative: Patient was brought to the operating room where she was prepped and draped in the dorsal supine position. Prior to that spinal anesthesia was given. After adequate level of spinal anesthesia was achieved and patient being prepped and draped in allowing 3 minutes to pass a timeout was done. Following this I proceeded with making a Pfannenstiel skin incision was taken down via sharp dissection down to level the fascia. A transverse incision made in the fascia followed by the fascia off the rectus muscles. Next the rectus muscle divided midline and the abdominal cavity was entered, first the parietal peritoneum the pneumoperitoneum followed by the visceral peritoneum. Abdominal cavity was entered and I proceeded with placement of bladder blade. Next proceeded with making a transverse incision in the lower segment uterine segment and entered and extended the incision in the cephalad and posterior direction. This followed by delivery infant's head followed by suctioning the mouth and nose via bulb suction. Next the rest of the infant was delivered then proceeded with delayed cord clamping. Following this umbilical was clamped x 2 excised and it was handed off to pool servicer in attendance. Following this the uterus was exteriorized and proceeded with cleaning out the uterine cavity of excess debris and membranes. Next proceeded with closure of the uterine incision. It was closed in 1 layer using 0 Vicryl in a running intelocking stitch. Following this the area of bleeding along the incision lines were hemostatic control using 0 Vicryl in a running interlocking stitch. Following this procedure placed he was back into the abdominal cavity was proceed with clean up of paracolic gutters. Next proceeded with examining the use incision line again there was some slight bleeding. This point patient was given Met hergine and Hemabate for uterine atony. From the uterus rakel down proceeded with placing a [id number]-[id number] stitch over the area of bleed along the incision line. Following this hemostasis was achieved. Next I proceeded with cleaning out both paracolic gutters. Following this I proceeded next to the rectus muscles which were reapproximated using 0 Vicryl with a single dejzhm-ok-lvfvw stitch following this I Proceeded with closure of the fascia layer with 0 Vicryl in a running stitch. Next subcuticular areas of the fat layer were cauterized as proceeded with irrigation of subcu fat layer with irrigation this is followed by reapproximation of the subcuticular fat using 3-0 Vicryl. The skin was reapproximated with a subcuticular stitch and Steri- Strips. heart rate - 1 minute: 100 bpm or Greater respiratory effort - 1 minute: Spontaneous/Strong Cry muscle tone - 1 minute: Active Movement reflex response - 1 minute: Prompt Response color - 1 minute: Bluish Hands or Feet total score - 1 minute: 9 heart rate - 5 minute: 100 bpm or Greater respiratory effort - 5 minute: Spontaneous/Strong Cry muscle tone - 5 minute: Active Movement reflex response - 5 minute: Prompt Response color - 5 minute: Bluish Hands or Feet total score - 5 minute: 9
[2025-02-10] MEDS: BUPIVACAINE LIPOSOME/PF 266 MG/20 ML VIAL INJ (11:40)
--- NOTE | 2025-02-10 11:46 | P.EN_ITS ---
Event Note Event Note: Code Enforcement Supervisor Note: I first assisted Dr Zurita with a primary low transverse section. I assisted as directed by physician. I independently closed the SQ layer with 3-0 vicryl, and then independently closed the incision with 4- .0 vicryl on a Yobany needle. Hemostasis noted at completion of case and patient tolerated procedure well.
[2025-02-10] MEDS: KETOROLAC TROMETHAMINE 30 MG/ML VIAL IVP ×3 (12:10→23:58)
[2025-02-10] MEDS: OXYTOCIN/0.9 % SODIUM CHLORIDE 20 UNITS/1,000 ML PLAST..BAG 125 UNIT IV (12:11)
[2025-02-10] MEDS: PROMETHAZINE HCL 25 MG in 0.9 % SODIUM CHLORIDE 50 ML 204 MG IV (14:32)
[2025-02-10] MEDS: ACETAMINOPHEN 500 MG TABLET 1000 MG PO (17:59)
[2025-02-10] MEDS: ENOXAPARIN SODIUM 40 MG/0.4 ML SYRINGE SUBQ (21:59)
[2025-02-10] MEDS: METFORMIN HCL 500 MG TAB.ER.24H 1000 MG PO (21:59)
[2025-02-11] MEDS: ACETAMINOPHEN 500 MG TABLET 1000 MG PO ×3 (01:36→20:57)
[2025-02-11 04:35] VITALS: BP 116/60; PULSE 83; TEMP 36.5
[2025-02-11] MEDS: KETOROLAC TROMETHAMINE 30 MG/ML VIAL IVP (06:11)
[2025-02-11 06:22] LABS: Basophils Percent Auto 0.1 % (0.2-2.0); Eosinophils Percent Auto 0.4 % (0.9-7.0); Hematocrit 25.7 % (36.0-48.0); Hemoglobin 8.5 g/dL (12.0-16.0); Immature Granulocytes Abs Auto 0.02 10^3/uL (0.00-0.03); Immature Granulocytes Pct Auto 0.2 % (0.0-0.5); Lymphocytes Absolute Auto 2.1 10^3/uL (1.2-3.8); Lymphocytes Percent Auto 22.7 % (20.5-60.0); Mean Corpuscular HGB Conc 33.1 g/dL (29.9-35.2); Mean Corpuscular Hemoglobin 28.6 pg (26.7-34.0); Mean Corpuscular Volume 86.5 fL (81.0-99.0); Mean Platelet Volume 10.2 fL (9.5-13.5); Monocytes Absolute Auto 0.5 10^3/uL (0.3-0.8); Monocytes Percent Auto 4.9 % (1.7-12.0); Neutrophils Absolute Auto 6.7 10^3/uL (1.4-6.5); Neutrophils Percent Auto 71.7 % (43.0-75.0); Platelet Count 201 10^3/uL (150-450); Red Blood Count 2.97 10^6/uL (4.20-5.40); Red Cell Distribution Width 14.3 % (11.0-15.0); White Blood Count 9.4 10^3/uL (4.0-11.0)
[2025-02-11 09:08] VITALS: BP 116/55; PULSE 82
[2025-02-11 09:10] VITALS: TEMP 37
--- NOTE | 2025-02-11 10:41 | P.OBPN_ITS ---
OB - PN: Subj Subjective Patient comments: no complaints, pain well controlled, incisional pain and tolerating diet Bennett infant status: doing well and well feeding status: exclusively Exam Constitutional Vital Signs, click to edit/add: Last Vital Signs Temp 98.6 F 02/11/25 09:10 Pulse 82 02/11/25 09:08 Resp 16 02/11/25 09:10 BP 116/55 02/11/25 09:08 Pulse Ox 96 02/10/25 12:30 O2 Del Method Room Air 02/11/25 09:22 Documenting provider has reviewed patient's vital signs: yes Common normals: no apparent distress, average body habitus, oriented x3, no limitations, healthy appearing, alert and well nourished General appearance: cooperative, comfortable, well kempt and well developed Orientation/consciousness: Yes awake, Yes oriented to person, Yes oriented to place and Yes oriented to time Chest Common normals: inspection of breasts normal Respiratory Common normals: normal respiratory effort and clear to auscultation bilaterally GI Common normals: Normal to inspection, nondistended, normoactive bowel sounds present, soft to palpation and non-tender Inspection: other (Incision and packed with Steri-Strips in place.) Back & Pelvis Pelvis: other (Mild lochia rubra is present.) Extremity Common normals: normal to inspection, no calf tenderness and no pedal edema Results Labs Labs: Short CBC 02/11/25 Range/Units 06:10 WBC 9.4 (4.0-11.0) 10^3/uL Hgb 8.5 L (12.0-16.0) g/dL Hct 25.7 L (36.0-48.0) % Plt Count 201 (150-450) 10^3/uL Urinary Catheter Management Urinary Catheter Management Urethral: Cath placed during this visit: yes, but has since been removed by the nurse Removal date: 02/11/25 Removal time: 04:57 OB - PN: A/P Assessment and Plan (1) Type 2 diabetes mellitus: Qualifiers: Diabetes mellitus detention insulin use: without long term care social worker use Diabetes mellitus complication status: without complication Qualified Code(s): E11.9 - Type 2 diabetes mellitus without complications (2) Term : Assessment and Plan: Patient is postoperative day #1 status postprimary progressing well. Will encourage ambulation and deep breathing. Plan Patient is postop day #1 status post primary progressing well. Will encourage ambulation and deep breathing. Plan - day: 1 Plan: routine postop care (Will encourage ambulation and deep breathing.) Time Spent with Patient Time: Total time spent is greater than 50% in coordination of care (as documented) at patient's floor/unit and/or counseling patient: Total time spent with greater than 50% in coordination of care (as documented) at patient's floor/unit and/or counseling patient: less than 15 minutes
[2025-02-11] MEDS: IBUPROFEN 400 MG TABLET 800 MG PO ×2 (12:01→20:56)
[2025-02-11] MEDS: METFORMIN HCL 500 MG TAB.ER.24H PO (12:02)
[2025-02-11] MEDS: DOCUSATE SODIUM 100 MG CAPSULE PO ×2 (12:03→20:57)
[2025-02-11 17:05] VITALS: TEMP 36.6
[2025-02-11 17:06] VITALS: BP 128/59; PULSE 76
[2025-02-11] MEDS: ENOXAPARIN SODIUM 40 MG/0.4 ML SYRINGE SUBQ (22:09)
[2025-02-11] MEDS: METFORMIN HCL 500 MG TAB.ER.24H 1000 MG PO (22:09)
--- NOTE | 2025-02-12 00:55 | PM.OBPN ---
OB - PN: Subj Subjective Patient comments: no complaints Hathorne status: doing well Hathorne feeding status: expressed and bottle feeding Exam Constitutional Vital Signs, click to edit/add: Last Vital Signs Temp 97.8 F 02/11/25 17:05 Pulse 76 02/11/25 17:06 Resp 20 02/11/25 17:05 BP 128/59 02/11/25 17:06 Pulse Ox 96 02/10/25 12:30 O2 Del Method Room Air 02/11/25 17:05 Documenting provider has reviewed patient's vital signs: yes Common normals: no apparent distress and oriented x3 General appearance: cooperative and comfortable Orientation/consciousness: Yes awake, Yes oriented to person, Yes oriented to place and Yes oriented to time HENMT Common normals: normocephalic Eye Common normals: EOMs intact bilaterally General eye: normal appearance of both eyes Neck & C-Spine Common normals: full ROM General: normal visual inspection Lymph Lymphatic: no lymphadenopathy noted Chest Common normals: inspection of chest normal Respiratory Common normals: normal respiratory effort, no retractions, no use of accessory muscles and clear to auscultation bilaterally Effort & inspection: able to speak in complete sentences Auscultation: clear to auscultation bilaterally Cardio Common normals: regular rate and regular rhythm Rate: regular rate Rhythm: regular rhythm GI Common normals: Normal to inspection, nondistended, normoactive bowel sounds present, soft to palpation, non-tender, no hepatosplenomegaly and no masses Inspection: normal to inspection Auscultation: normoactive bowel sounds Palpation: soft and tender Rectal Exam - Female: deferred Common normals: no CVA tenderness Back & Pelvis Common normals: no CVA tenderness Thoracic spine/upper back: normal to inspection Lumbar spine/lower back: normal to inspection Extremity Common normals: normal to inspection, full ROM, normal capillary refill, no joint enlargement, no clubbing, cyanosis or edema and no calf tenderness Neuro Common normals: oriented x3 Sensorium/orientation: awake, alert, oriented to person, oriented to place and oriented to time Psych Common normals: mental status grossly normal, thought process normal, cooperative, affect normal, speech normal, activity/motor behavior normal, denies hallucinations, denies homicidal ideation and denies suicidal ideation Appearance: grossly normal and well kempt Attitude: calm Activity/motor behavior: appropriate eye contact Speech: normal speech Thought process: normal thought process Results Labs Labs: Short CBC 02/11/25 Range/Units 06:10 WBC 9.4 (4.0-11.0) 10^3/uL Hgb 8.5 L (12.0-16.0) g/dL Hct 25.7 L (36.0-48.0) % Plt Count 201 (150-450) 10^3/uL Urinary Catheter Management Urinary Catheter Management Urethral: Cath placed during this visit: yes, but has since been removed by the nurse Removal date: 02/11/25 Removal time: 04:57 OB - PN: A/P Assessment and Plan (1) Type 2 diabetes mellitus: Qualifiers: Diabetes mellitus buttermaker insulin use: without nursing home use Diabetes mellitus complication status: without complication Qualified Code(s): E11.9 - Type 2 diabetes mellitus without complications (2) Term : Plan - day: 2 Plan: discharge home Time Spent with Patient Time: Total time spent is greater than 50% in coordination of care (as documented) at patient's floor/unit and/or counseling patient: Total time spent with greater than 50% in coordination of care (as documented) at patient's floor/unit and/or counseling patient: less than 15 minutes
[2025-02-12 01:25] VITALS: BP 139/75; PULSE 68
[2025-02-12] MEDS: IBUPROFEN 400 MG TABLET 800 MG PO ×2 (04:35→12:05)
[2025-02-12] MEDS: ACETAMINOPHEN 500 MG TABLET 1000 MG PO ×2 (04:36→12:04)
[2025-02-12] MEDS: DOCUSATE SODIUM 100 MG CAPSULE PO (08:32)
[2025-02-12] MEDS: METFORMIN HCL 500 MG TAB.ER.24H PO (08:32)
[2025-02-12 10:00] VITALS: BP 128/82; PULSE 76; TEMP 36.5
== END 2025-02-12 14:35 | disposition home or self-care (01) | DRG 788 ==
PROVIDERS: Family Medicine Addiction Medicine; Admitting Provider Midwife; Visit Provider Midwife
PROC: 10D00Z1 Extraction of Products of Conception, Low, Open Approach (ICD-10-PCS; CPT 59514; principal; 2025-02-10 10:00)
DX: O24.12 Pre-existing type 2 diabetes mellitus, in childbirth (principal); O61.0 Failed medical induction of labor; Z3A.38 38 weeks gestation of pregnancy; Z37.0 Single live birth; Z79.4 Long term (current) use of insulin; Z79.84 Long term (current) use of oral hypoglycemic drugs; O76 Abnormality in fetal heart rate and rhythm complicating labor and delivery
CPT/HCPCS: 36415; 51702; 59050; 64488; 80307; 85025; 85027; 86850; 86900; 86901; 94667; 94668; J0665; J0690; J1650; J1885; J2210; J2274; J2405; J2550; J2590; J2765; J2795; J3010; J3490

== ENCOUNTER 2025-02-19 15:18 | Observation (INO) | payer BC, SELFPAY ==
[2025-02-19] VITALS (20 sets, daily range): BP systolic 122–194; BP diastolic 3–107; PULSE 57–96; TEMP 36.6–36.8
--- OUTSIDE RECORDS SUMMARY | 2025-02-19 13:17 | XMS_ITS ---
Author Name Auto Generated Organization OHIP Support Name Relationship Address Phone KAROL SMALL Next of Kin Unknown [phone] TALITA SMALLINGTON Next of Kin Unknown [phone] SMALL, KAORL Next of Kin Unknown [phone] SMALL, KAROL Next of Kin Unknown [phone] SMALL, KAROL Next of Kin Unknown [phone] SMALL, KAROL Next of Kin Unknown [phone] SMALL, KAROL Next of Kin Unknown [phone] SMALL, KAROL Next of Kin Unknown [phone] SMALL, KAROL Next of Kin Unknown [phone] SMALL, KAROL Next of Kin Unknown [phone] SMALL, KAROL Next of Kin Unknown [phone] SMALL, KAROL Next of Kin Unknown [phone] SMALL, KAROL Next of Kin Unknown [phone] SMALL, KAROL Next of Kin Unknown [phone] SMALL, KAROL Next of Kin Unknown Unavailable SMALL, KAROL Next of Kin Unknown Unavailable SMALL, KAROL Next of Kin Unknown [phone] SMALL, KAROL Next of Kin Unknown Unavailable SMALL KAROL Next of Kin Unknown [phone] SMALL, KAROL Next of Kin Unknown Unavailable SMALL, KAROL Next of Kin Unknown [phone] REYNALDO MARTINEZ Next of Kin Unknown Unavailable REYNALDO MARTINEZ Next of Kin Unknown Unavailable NOT GIVEN Next [facility] [place] [address] [phone] KAROL SMALL Next of Kin Unknown Unavailable MARTINEZ, REYNALDO Next of Kin Unknown Unavailable MARTINEZAUGUSTREYNALDO Next of Kin Unknown Unavailable [place] [address] [phone] TALITA SMALLINGTON Next of Kin Unknown Unavailable SMALL, KAROL Next of Kin Unknown [phone] MICHELLE REYNALDO Next of Kin Unknown Unavailable MARTINEZ, REYNALDO Next of Kin Unknown Unavailable [place] [address] [phone] SMALL, KAROL Next of Kin Unknown Unavailable [place] [address] [phone] SMALL, KAROL Next of Kin Unknown Unavailable [place] [address] [phone] SMALL KAROL Next of Kin Unknown Unavailable MARTINEZ REYNALDO Next of Kin Unknown Unavailable MARTINEZ, REYNALDO Next of Kin Unknown Unavailable [place] [address] [phone] TALITA SMALLINGTON Next of Kin Unknown Unavailable MICHELLE REYNALDO Next of Kin Unknown Unavailable MARTINEZ REYNALDO Next of Kin Unknown Unavailable NOT [place] [address] [phone] KAROL SMALL Next of Kin Unknown Unavailable SMALL, KAROL Next of Kin Unknown [phone] SMALL, KAROL Next of Kin Unknown [phone] SMALL, KAROL Next of Kin Unknown [phone] SMALL, KAROL Next of Kin Unknown [phone] SMALL, KAROL Next of Kin Unknown [phone] Care Team Providers Care Oncology Physician Name Role Phone DARÍO NANCE Attending Unavailable PETZNICKTHA Attending Unavailable FLOROYENYDARÍO Nadine Attending Unavailable FLOROYENYDARÍO Nadine Attending Unavailable PETZNICK, THA M Attending Unavailable FLOROYENYDARÍO Nadine Attending Unavailable FLORYENY JamesDARÍO Nadine Referring Unavailable NICK BOWEN Attending Unavailable FLOROYENYDARÍO Nadine Referring Unavailable FLORO DARÍO Nadine Attending Unavailable FLORO, DARÍO Nadine Attending Unavailable FLORO, DARÍO Nadine Attending Unavailable FLORO, DARÍO L Attending Unavailable PETZNICK, THA M Attending Unavailable FLOROWILLIAME Nadine Attending Unavailable PETZNICK, THA M Attending Unavailable PETZNICK, THA M Attending Unavailable FLORO, DARÍO L Referring Unavailable FLORO, DARÍO L Attending Unavailable FLORO, DARÍO L Attending Unavailable PETZNICK, THA Guy Attending Unavailable PETZNJAGJIT, THA Guy Referring Unavailable FLORO, DARÍO L Attending Unavailable FLORO, DARÍO L Attending Unavailable FLORO, DARÍO L Attending Unavailable LAVOY, ALIRIO E Attending Unavailable FLORO, DARÍO Referring Unavailable DENISHASERGEY Attending Unavailable FLORO, DARÍO Referring Unavailable LAVOY, ALIRIO E Attending Unavailable FLORO, DARÍO Referring Unavailable FLORO, DARÍO Primary Care Unavailable DENISHASERGEY Dietz Attending Unavailable FLORO, DARÍO Referring Unavailable FLORO, DARÍO Primary Care Unavailable ARIELLA ROBERTO Attending Unavailable FLORO, DARÍO Referring Unavailable FLORO, DARÍO Primary Care Unavailable RIAN, CLARKE Attending Unavailable FLORO, DARÍO Referring Unavailable FLORO, DARÍO Primary Care Unavailable AYE SAUCEDO Attending Unavailable LAVOY, ALIRIO Referring Unavailable FLORO, DARÍO Primary Care Unavailable FLORO, DARÍO Referring Unavailable FLORO, DARÍO Primary Care Unavailable RIAN, CLARKE Attending Unavailable FLORO, DARÍO Referring Unavailable FLORO, DARÍO Primary Care Unavailable FLORO, DARÍO Referring Unavailable FLORO, DARÍO Primary Care Unavailable TRICIA KIMBROUGH Attending Unavailable ENOCHTAAYE Pineda Referring Unavailable FLORO, DARÍO Primary Care Unavailable PROBLEMS DATE TYPE CONDITION / CODE ATTENDING STATUS [facility] 10/31/2024 Unknown Encounter for ot her screening follow-up / Z36.2(ICD-10) NA [facility] 08/14/2024 Unknown Pre-existing typ e 2 diabetes mellitus, in , second trimester / O24.112(ICD-10) [facility] 09/19/2024 Unknown New Patient / FREETEXT(AOF) AYE SAUCEDO [facility] 07/25/2024 Unknown Type 2 diabetes mellitus without complications / E11.9(ICD-10) ARIELLA ROBERTO [facility] 08/14/2024 Unknown Pre-existing typ e 2 diabetes mellitus, in , first trimester / O24.111(ICD-10) SERGEY DENNY Active [facility] 12/29/2016 Unknown Long QT syndrome / I45.81(ICD-10) ALIRIO PACK E Active [facility] 08/14/2024 Unknown T2DM / UNK(Unknown) ALIRIO PACK E Ac tive [facility] PROCEDURES No Procedure Records Found RESULTS US OB FOLLOW UP TRANSABDOMINAL APPROACH Observed: 12/11/2024 4:08 PM Status: F Source: [facility] EPIC EXAM: US OB FOLLOW UP TRANSA [...] II, MD, PHD at 12-Dec-2024 07:13:14 PM [facility] US OB < 14 WEEKS EARLY Observed: 024 5:55 PM Status: F Source: [facility] TITLE OF EXAM: OB Ultrasound : [...] NAME / CODE REACTION SEVERITY SOURCE Drug Class/[id number](SNO MED CT) NO KNOWN ALLERGIES [facility] ENCOUNTERS ADMIT/DISCHARGE ACCOUNT NUMBER ADMITTING ENCOUNTER CLASS LOCATION SOURCE 02/19/2025/02/20/20 [id number] Ambulatory Building:NOM S FNR OB [facility] 02/06/2025/02/07/20 [id number] Ambulatory Building:NOM S FNR OB [facility] 01/29/2025/01/30/20 25 [id number] Ambulatory Building:NOM S FNR OB [facility] 01/22/2025/01/23/20 25 [id number] Ambulatory Building:NOM S FNR OB [facility] 01/18/2025/01/19/20 25 [id number] Ambulatory Building:NOM S FAMMED [facility] 01/15/2025/01/16/20 25 [id number] Ambulatory Building:NOM S FNR OB [facility] 01/09/2025/01/10/20 25 [id number] Ambulatory Building:NOM S FNR OB [facility] 01/01/2025/01/02/20 25 [id number] Ambulatory Building:NOM S FNR OB [facility] 12/26/2024/12/27/19 25 [id number] Ambulatory Building:NOM S FNR OB [facility] 12/25/2024/12/26/19 25 [id number] Ambulatory Building:NOM S BCP OB [facility] 12/11/2024/12/12/19 25 [id number] Ambulatory Building:NOM SFNRUS [facility] 12/11/2024/12/12/19 25 [id number] Ambulatory Building:NOM S FNR OB [facility] 12/07/2024/12/08/19 25 [id number] Ambulatory Building:NOM S [facility] 11/15/2024/11/16/19 25 [id number] Ambulatory Building:NOM S FNR OB [facility] 11/08/2024/11/09/19 25 [id number] Ambulatory Buildin 4 [facility] 10/31/2024/11/01/19 25 [id number] Ambulatory Building:[facility] 10/18/2024/10/19/19 25 [id number] Ambulatory Building:NOM S FNR OB [facility] 10/10/2024/10/10/19 25 [id number] Ambulatory Buildin 4 [facility] 10/09/2024/10/09/19 25 [id number] Ambulatory Building:NOM S [facility] 10/03/2024/10/03/19 25 [id number] Ambulatory Building:[facility] 09/28/2024/09/28/19 25 [id number] Ambulatory Building:NOM S FNR [facility] 09/19/2024/09/19/19 25 [id number] Ambulatory Buildin 4 [facility] 09/11/2024/09/11/19 25 [id number] Ambulatory Buildin 4 [facility] 09/01/2024/09/01/19 25 [id number] Ambulatory Building:NOM S [facility] 08/23/2024/08/23/19 25 [id number] Ambulatory Buildin 4 [facility] 08/14/2024 [id number] Ambulatory Buildin 9 4 [facility] 08/14/2024 [id number] Ambulatory Buildin 9 4 [facility] 08/14/2024/08/14/20 24 [id number] Ambulatory Buildin 4 [facility] 08/14/2024/08/14/20 [id number] Ambulatory Buildin 4 [facility] 08/03/2024/08/03/20 24 [id number] Ambulatory Building:NOM S FNR OB [facility] 07/10/2024/07/10/20 24 [id number] Ambulatory Building:NOM S FNR OB [facility] 07/03/2024/07/03/20 24 [id number] Ambulatory Building:NOM SFNRUS [facility] 06/08/2024/06/08/20 24 [id number] Ambulatory Building:NOM S FAMMED [facility] 02/28/2024/02/28/20 24 [id number] Ambulatory Building:NOM S [facility] EPIC PAYERS ENCOUNTER GUARANTOR PAYER SUBSCRIBER SOURCE 02/19/2025 REGINALD JUSTICEB: [address]: () Primary Insurance:BCBSPo licy Number: [id number] ctive Date:2019-02-13 REGINALD JUSTICEB: [id number] [place] [address] [facility] 02/06/2025 REGINALD JUSTICEB: [address]: () Primary Insurance:BCBSPo licy Number: [id number] ctive Date:2019-02-13 REGINALD JUSTICEB: [id number] [place] [address] [facility] 01/29/2025 REGINALD JUSTICEB: [place] [address]Tel: (HP) Primary Insurance:BCBSPo licy Number: [id number] ctive Date:2019-02-13 REGINALD JUSTICEB: [id number] N STATE [address] [place] [address] [facility] 01/22/2025 REGINALD JUSTICEB: [address] [place] [address]Thu: (HP) Primary Insurance:BCBSPo licy Number: [id number] ctive Date:2019-02-13 REGINALD JUSTICEB: [id number] [address] [place] [address] [facility] 01/18/2025 REGINALD JUSTICEB: N [address] [place] [address]Ddz: (HP) Primary Insurance:BCBSPo licy Number: [id number] ctive Date:2019-02-13 REGINALD JUSTICEB: [id number] [address] [place] [address] [facility] 01/15/2025 REGINALD JUSTICEB: [address] [address]Ahm: (HP) Primary Insurance:BCBSPo licy Number: [id number] ctive Date:2019-02-13 REGINALD JUSTICEB: [id number] [address] [place] [address] [facility] 01/09/2025 REGINALD JUSTICEB: [address] [address]Pms: (HP) Primary Insurance:BCBSPo licy Number: [id number] ctive Date:2019-02-13 REGINALD JUSTICEB: [id number] [address] [address] [facility] 01/01/2025 REGINALD JUSTICEB: [address] [address]Fie: (HP) Primary Insurance:BCBSPo licy Number: [id number] ctive Date:2019-02-13 REGINALD JUSTICEB: [id number] [address] [facility] 12/26/2024 REGINALD JUSTICEB: [place] [address]Tel: (HP) Primary Insurance:BCBSPo licy Number: [id number] ctive Date:2019-02-13 REGINALD JUSTICEB: [id number] [place] [address] [facility] 12/25/2024 REGINALD JUSTICEB: [place] [address]Tel: (HP) Primary Insurance:BCBSPo licy Number: [id number] ctive Date:2019-02-13 REGINALD JUSTICEB: [id number] N [place] [id number] [facility] 12/11/2024 REGINALD JUSTICEB: [place] [address]Tel: (HP) Primary Insurance:BCBSPo licy Number: [id number] ctive Date:2019-02-13 REGINALD JUSTICEB: [id number] [address] [facility] 12/11/2024 REGINALD JUSTICEB: N [place] [id number]: (HP) Primary Insurance:BCBSPo licy Number: [id number] ctive Date:2019-02-13 REGINALD JUSTICEB: [id number] [address] [place] [address] [facility] 12/07/2024 REGINALD JUSTICEB: N [address] [address]Byx: (HP) Primary Insurance:BCBSPo licy Number: [id number] ctive Date:2019-02-13 REGINALD JUSTICEB: [id number] [address] [address] [facility] 11/15/2024 REGINALD JUSTICEB: N [address] [place] [address]Jef: (HP) Primary Insurance:BCBSPo licy Number: [id number] ctive Date:2019-02-13 REGINALD JUSTICEB: [id number] [address] [address] [facility] 11/08/2024 REGINALD JUSTICEB: N [address] [address]Tbb: (HP) Primary Insurance:BCBS OUT OF STATE PPO/TRUSTPolicy Number: [id number] ctive Date:2019-02-13 REGINALD JUSTICEB: [id number] [address]Aom: (HP) [facility] 10/31/2024 REGINALD JUSTICEB: [address], [place] [address]Ryl: (HP) Primary Insurance:BCBS OUT OF STATE PPO/TRUSTPolicy Number: [id number] ctive Date:2019-02-13 REGINALD JUSTICEB: [id number] [address] [address]Vtv: (HP) [facility] 10/18/2024 REGINALD JUSTICEB: [address] [place] [address], [place] [address]Mim: (HP) Primary Insurance:BCBSPo licy Number: [id number] ctive Date:2019-02-13 REGINALD JUSTICEB: [id number] N STATE [address] [place] [address] [facility] 10/10/2024 REGINALD JUSTICEB: [address], [place] [address]Udf: (HP) Primary Insurance:BCBS OUT OF STATE PPO/TRUSTPolicy Number: [id number] ctive Date:2019-02-13 REGINALD JUSTICEB: [id number] [address] [address]Fbb: (HP) [facility] 10/09/2024 REGINALD JUSTICEB: N STATE [address] [place] [address]Kbh: (HP) Primary Insurance:BCBSPo licy Number: [id number] ctive Date:2019-02-13 REGINALD JUSTICEB: [id number] N STATE [address] [address] [facility] 10/03/2024 REGINALD JUSTICEB: N [address], [place] [address]Omz: (HP) Primary Insurance:BCBS OUT OF STATE PPO/TRUSTPolicy Number: [id number] ctive Date:2019-02-13 REGINALD JUSTICEB: [id number] [address], [place] [address]Kik: (HP) [facility] 09/28/2024 REGINALD JUSTICEB: [address] [address]Yiq: (HP) Primary Insurance:BCBSPo licy Number: [id number] ctive Date:2019-02-13 REGINALD JUSTICEB: [id number] N STATE [address] [address] [facility] 09/19/2024 REGINALD JUSTICEB: N [address] [address]Kit: (HP) Primary Insurance:BCBS OUT OF STATE PPO/TRUSTPolicy Number: [id number] ctive Date:2019-02-13 REGINALD JUSTICEB: [id number] [address] [address]Nwk: (HP) [facility] 09/11/2024 REGINALD JUSTICEB: N [address] [address]Tow: (HP) Primary Insurance:BCBS OUT OF STATE PPO/TRUSTPolicy Number: [id number] ctive Date:2019-02-13 REGINALD JUSTICEB: [id number] N [address] [address]Qkp: (HP) [facility] 09/01/2024 REGINALD JUSTICEB: N [address] [address]Tsl: (HP) Primary Insurance:BCBSPo licy Number: [id number] ctive Date:2019-02-13 REGINALD DE LEÓN: [id number] N [address] [address] [facility] 08/23/2024 REGINALD JUSTICEB: N [address] [address]Bnr: (HP) Primary Insurance:BCBS OUT OF STATE PPO/TRUSTPolicy Number: [id number] ctive Date:2019-02-13 REGINALD JUSTICEB: [id number] N STATE [address], [place] [address]Pqm: (HP) [facility] 08/14/2024 REGINALD JUSTICEB: [address] [place] [address]Mqk: (HP) Primary Insurance:BCBS OUT OF STATE PPO/TRUSTPolicy Number: [id number] ctive Date:2019-02-13 REGINALD JUSTICEB: [id number] [address], [place] [address]Tlu: (HP) [facility] 08/14/2024 REGINALD JUSTICEB: N [address] [place] [address]Ugp: (HP) Primary Insurance:BCBS OUT OF STATE PPO/TRUSTPolicy Number: [id number] ctive Date:2019-02-13 REGINALD JUSTICEB: [id number] [address], [place] [address]Hpp: (HP) [facility] 08/14/2024 REGINALD JUSITCEB: N [address], [place] [address]Qlp: (HP) Primary Insurance:BCBS OUT OF STATE O/TRUSTPolicy Number: [id number] ctive Date:2019-02-13 REGINALD JUSTICEB: [id number] [address], [place] [address]Ncq: (HP) [facility] 08/14/2024 REGINALD JUSTICEB: N [address] [place] [address]Yic: (HP) Primary Insurance:BCBS OUT OF STATE PPO/TRUSTPolicy Number: [id number] ctive Date:2019-02-13 REGINALD JUSTICEB: [id number] N [address] [address]Sdj: (HP) [facility] 08/03/2024 REGINALD JUSTICEB: N [place] [id number]: (HP) Primary Insurance:BCBSPo licy Number: [id number] ctive Date:2019-02-13 REGINALD JUSTICEB: [id number] N [address] [address] [facility] 07/10/2024 REGINALD JUSTICEB: N [address] [address]Aab: (HP) Primary Insurance:BCBSPo licy Number: [id number] ctive Date:2019-02-13 REGINALD JUSTICEB: [id number] N [place] [id number] [facility] 07/03/2024 REGINALD JUSTICEB: N [address] [address]Qjz: (HP) Primary Insurance:BCBSPo licy Number: [id number] ctive Date:2019-02-13 REGINALD JUSTICEB: [id number] N [address] [address] [facility] 06/08/2024 REGINALD JUSTICEB: N [address] [address]Tgy: (HP) Primary Insurance:BCBSPo licy Number: [id number] ctive Date:2019-02-13 REGINALD JUSTICEB: [id number] [address] [address] [facility] 02/28/2024 REGINALD DE LEÓN: [id number] [address] [address]Xlf: () Primary Insurance:[facility] licy Number: [id number] ctive Date:2019-02-13 REGINALD DE LEÓN: [id number] [address] [address] [facility]
[2025-02-19 15:49] LABS: Hematocrit 33.0 % (36.0-48.0); Hemoglobin 10.7 g/dL (12.0-16.0); Immature Granulocytes Abs Auto 0.04 10^3/uL (0.00-0.03); Immature Granulocytes Pct Auto 0.4 % (0.0-0.5); Lymphocytes Absolute Auto 2.2 10^3/uL (1.2-3.8); Mean Corpuscular HGB Conc 32.4 g/dL (29.9-35.2); Mean Corpuscular Hemoglobin 28.2 pg (26.7-34.0); Mean Corpuscular Volume 87.1 fL (81.0-99.0); Platelet Count 455 10^3/uL (150-450); Red Blood Count 3.79 10^6/uL (4.20-5.40); White Blood Count 9.1 10^3/uL (4.0-11.0)
[2025-02-19 16:04] LABS: Alanine Aminotransferase 20 U/L (14-59); Aspartate Amino Transferase 11 U/L (15-37); Blood Urea Nitrogen 12.0 mg/dL (7.0-18.0); Estimated GFR (African America >60 (>=60 mL/min/1.73m^2); Estimated GFR (Non-African Ame >60 (>=60 mL/min/1.73m^2); Uric Acid 6.3 mg/dL (2.6-6.0)
[2025-02-19 16:08] LABS: Alanine Aminotransferase 19 U/L (14-59); Albumin Globulin Ratio 0.7; Albumin Level 3.0 g/dL (3.4-5.0); Alkaline Phosphatase 73 U/L (46-116); Anion Gap 10.3; Aspartate Amino Transferase 10 U/L (15-37); Blood Urea Nitrogen 12.0 mg/dL (7.0-18.0); Calcium 9.1 mg/dL (8.5-10.1); Carbon Dioxide 28.5 mmol/L (21.0-32.0); Chloride 107 mmol/L (98-107); Estimated GFR (African America >60 (>=60 mL/min/1.73m^2); Estimated GFR (Non-African Ame >60 (>=60 mL/min/1.73m^2); Globulin 4.5 g/dL; Glucose 95 mg/dL (74-106); Potassium 3.8 mmol/L (3.5-5.1); Sodium 142 mmol/L (136-145); Total Protein 7.5 g/dL (6.4-8.2)
[2025-02-19 16:30] LABS: INR 0.95; Partial Thromboplastin Time 27.9 sec (22.3-36.2); Prothrombin Time 10.1 sec (9.0-11.6)
[2025-02-19 16:43] LABS: Fibrinogen 495 mg/dL (200-400)
[2025-02-19] MEDS: 0.9 % SODIUM CHLORIDE 1,000 ML 75 ML IV (16:50)
[2025-02-19] MEDS: MAGNESIUM-BOLUS FROM THE BAG- 40 GM/1,000 ML IV.SOLN IV (16:52)
[2025-02-19] MEDS: LABETALOL HCL 100 MG TABLET PO (17:02)
[2025-02-19] MEDS: MAGNESIUM SULFATE IN WATER 40 GM/1,000 ML IV.SOLN IV (17:17)
[2025-02-19] MEDS: METFORMIN HCL 500 MG TAB.ER.24H 1000 MG PO (21:29)
[2025-02-19] MEDS: ACETAMINOPHEN 500 MG TABLET 1000 MG PO (22:40)
[2025-02-20] VITALS (9 sets, daily range): BP systolic 117–133; BP diastolic 60–68; PULSE 64–77; TEMP 36.6–36.7
[2025-02-20] MEDS: LABETALOL HCL 100 MG TABLET PO ×2 (01:10→08:47)
[2025-02-20] MEDS: 0.9 % SODIUM CHLORIDE 1,000 ML 75 ML IV (05:56)
--- NOTE | 2025-02-20 08:32 | P.OBPN_ITS ---
OB - PN: Subj Subjective Patient comments: no complaints [facility] status: bottle and other (pumping ) feeding status: expressed and bottle feeding Exam Constitutional Vital Signs, click to edit/add: Last Vital Signs Temp 98.0 F 02/20/25 06:34 Pulse 65 02/20/25 06:34 Resp 16 02/20/25 06:34 BP 121/65 02/20/25 06:34 O2 Del Method Room Air 02/20/25 06:34 Documenting provider has reviewed patient's vital signs: yes Common normals: no apparent distress General appearance: cooperative, comfortable, well kempt and well developed Orientation/consciousness: Yes awake, Yes oriented to person, Yes oriented to place and Yes oriented to time HENMT Common normals: normocephalic Head and scalp: normal to inspection Eye Common normals: EOMs intact bilaterally General eye: normal appearance of both eyes Neck & C-Spine Common normals: full ROM and no lymphadenopathy Lymph Lymphatic: no lymphadenopathy noted Chest Common normals: inspection of chest normal Respiratory Common normals: normal respiratory effort, no retractions, no use of accessory muscles and clear to auscultation bilaterally Effort & inspection: able to speak in complete sentences Auscultation: clear to auscultation bilaterally Cardio Common normals: regular rate Rate: regular rate Rhythm: regular rhythm GI Common normals: Normal to inspection, nondistended, normoactive bowel sounds present, soft to palpation and non-tender Inspection: normal to inspection Auscultation: normoactive bowel sounds Palpation: soft Rectal Exam - Female: deferred Common normals: no CVA tenderness Back & Pelvis Common normals: no CVA tenderness Extremity Common normals: normal to inspection and full ROM Neuro Common normals: oriented x3 Sensorium/orientation: awake, alert, oriented to person and oriented to place Psych Common normals: mental status grossly normal, thought process normal, cooperative, affect normal, speech normal, activity/motor behavior normal, denie s hallucinations, denies homicidal ideation and denies suicidal ideation Attitude: calm Activity/motor behavior: appropriate eye contact Speech: normal speech Results Labs Labs: Short CBC 02/19/25 Range/Units 15:42 WBC 9.1 (4.0-11.0) 10^3/uL Hgb 10.7 L (12.0-16.0) g/dL Hct 33.0 L (36.0-48.0) % Plt Count 455 H (150-450) 10^3/uL BMP 02/19/25 02/19/25 02/19/25 15:42 15:42 15:42 Sodium 142 Potassium 3.8 Chloride 107 Carbon Dioxide 28.5 BUN 12.0 12.0 Creatinine 0.73 0.73 Glucose 95 Calcium 9.1 Liver Function 02/19/25 02/19/25 02/19/25 Range/Units 15:42 15:42 15:42 Total Bilirubin 0.2 (0.2-1.0) mg/dL AST 10 L 11 L (15-37) U/L ALT 19 20 (14-59) U/L Alkaline Phosphatase 73 (46-116) U/L Albumin 3.0 L (3.4-5.0) g/dL OB - PN: A/P Plan - day: 9 Plan: discharge home Time Spent with Patient Time: Total time spent is greater than 50% in coordination of care (as documented) at patient's floor/unit and/or counseling patient: Total time spent with greater than 50% in coordination of care (as documented) at patient's floor/unit and/or counseling patient: less than 15 minutes
[2025-02-20] MEDS: METFORMIN HCL 500 MG TAB.ER.24H PO (08:44)
[2025-02-20] MEDS: MAGNESIUM SULFATE IN WATER 40 GM/1,000 ML IV.SOLN IV (11:19)
== END 2025-02-20 17:35 | disposition home or self-care (01) ==
PROVIDERS: Admitting Provider Midwife; Visit Provider Midwife
DX: O16.5 Unspecified maternal hypertension, complicating the puerperium (principal)
CPT/HCPCS: 36415; 80053; 82565; 84450; 84460; 84520; 84550; 85025; 85384; 85610; 85730; 96365; 96366; 96376; G0378; G0379; J3475